=== PATIENT | male | born 1960 | race Caucasian/White ===

== ENCOUNTER → 2017-10-25 13:14 | Outpatient (CLI) | payer BC, SELFPAY ==
--- NOTE | 2017-10-25 13:20 | VDLE_ITS ---
Reason For Study: Edema RIGHT LEFT CFV is compressible, spontaneous, phasic, GSV is normal. competent and demonstrates normal CFV is compressible, spontaneous, phasic, augmentation. competent, and demonstrates normal Lymph node noted Rt Groin. augmentation. Procedure FV is compressible, spontaneous, phasic, Exam performed in department. competent and demonstrates normal A preliminary report was called and/or faxed augmentation. to Dr. Monsalve. POP V is compressible, spontaneous, phasic, competent and demonstrates normal augmentation. T/P Trunk is compressible. PTV is compressible. LT PerV is compressible. Lymph nodes noted in Lt Groin and Pop Fossa. Interpretation Summary Deep veins of the left lower extremity are patent and compressible segmentally. There is no evidence of left lower extremity deep vein thrombosis. Valvular competence appears intact within the proximal deep venous system on the left . The left greater saphenous vein appears patent and compressible segmentally. Prominent lymph nodes are noted in the groins bilaterally and in the left popliteal space. Clinical correlation is advised. Ordering Physician: Angelic Monsalve Referring Physician: Price June Performed By: Rafaela Preston, CIPRIANO, RVT
== END ==
PROVIDERS: Family Provider Family Medicine; PCP Family Medicine; Visit Provider Family Medicine
DX: R60.0 Localized edema (principal)
CPT/HCPCS: 93971

== ENCOUNTER → 2017-10-25 15:52 | Outpatient (CLI) | payer BC, SELFPAY | PROVIDERS: Visit Provider Family Medicine | DX: S91.109A Unspecified open wound of unspecified toe(s) without damage to nail, initial encounter (principal) | CPT/HCPCS: 87070; 87205 ==

== ENCOUNTER 2019-10-30 16:34 | Emergency (ER) | payer OTHER, SELFPAY ==
[2019-10-30 16:36] VITALS: BP 161/83; PULSE 97; RESP 17; TEMP 36.7; O2SAT 91; BMI 40.3
--- NOTE | 2019-10-30 17:25 | MRI_ITS ---
STUDY: MRI THORACIC SPINE WITHOUT CONTRAST REASON FOR EXAM: Male, 59 years old. rt leg weakness, foot drop -- low back pain , rt leg weakness with foot drop, fall 05/2019, increasing pain since with frequent falls TECHNIQUE: Standardized fat and water weighted pulse sequences were obtained in the sagittal and axial planes. COMPARISON: None. FINDINGS: Normal kyphosis of the thoracic spine. There is no substantial scoliosis. There is an acute compression fracture T12 with approximately 50% loss of vertebral body height and retropulsion of the posterior superior endplate narrowing the spinal canal without appreciable cord compression. . Intervertebral disc space heights are well-maintained however there is tiny central disc protrusion at T6-7 mildly narrowing the central canal and a tiny right paracentral disc protrusion at T8-9 also mildly narrowing the spinal canal without cord compression Normal visualized thoracic cord. Normal conus medullaris that terminates at L1 The soft tissue structures are unremarkable. MRI/Spine Thoracic (Routine) IMPRESSION: Acute compression fracture of T12 with retropulsion of bony fragment mildly narrowing the spinal canal without cord compression. Tiny disc protrusions at T6-7 and T8-9 mildly narrowing the spinal canal without cord compression Electronically Signed: Zachary Bynum MD at 19:52 EDT , Service support ,
--- NOTE | 2019-10-30 17:25 | MRI_ITS ---
STUDY: MRI LUMBAR SPINE WITHOUT CONTRAST REASON FOR EXAM: Male, 59 years old. RT leg weakness, foot drop -- low back pain , rt leg weakness with foot drop, fall 05/2019, increasing pain since with frequent falls TECHNIQUE: Standardized fat and water weighted pulse sequences were obtained in the sagittal and axial planes. COMPARISON: None FINDINGS: T12-L1: Acute compression of T12 retropulsion of posterior superior endplate narrowing the spinal canal without compression of the conus.. Normal disc height, hydration and morphology. Normal bilateral facet joints. Normal central canal and bilateral lateral recesses. Normal bilateral intervertebral neural foramina. Normal lumbar lordosis. There is no substantial scoliosis. Normal conus medullaris that terminates at T12-L1 L1-2: Mild endplate spurring.. Normal disc height, desiccation and minimal annular bulge.. Normal bilateral facet joints. Normal central canal and bilateral lateral recesses. Normal bilateral intervertebral neural foramina. L2-3: Schmorl''s node deformity of the superior endplate of L3. Normal disc height, desiccation and small bilateral neural foraminal disc protrusions. Normal bilateral facet joints. Normal central canal and bilateral lateral recesses. Mild bilateral neural foraminal encroachment. L3-4: Normal endplates. Normal disc height, desiccation and small right foraminal disc protrusion.. Mild facet arthropathy. Normal central canal and bilateral lateral recesses. Mild right neuroforaminal encroachment. L4-5: Normal endplates. Normal disc height, desiccation and small left foraminal disc protrusion. Bilateral facet arthropathy.. Normal central canal and bilateral lateral recesses. Mild to moderate left neural foraminal encroachment. L5-S1: Normal endplates. Normal disc height, desiccation and minimal annular bulge.. Mild facet arthropathy.. Normal central canal and bilateral lateral recesses. Mild bilateral neural foraminal encroachment. Normal visualized sacral ala. Normal visualized paraspinous soft tissue structures. MRI/Spine Lumbar (Routine) IMPRESSION: Acute compression fracture of T12 with retropulsed bony fragment mildly narrowing the central canal without cord impingement.. Mild multilevel spinal stenosis secondary to disc disease and bony hypertrophy. Findings as above Electronically Signed: Zachary Bynum MD at 19:58 EDT , Service support ,
--- NOTE | 2019-10-30 17:25 | CT_ITS ---
STUDY: CT BRAIN WITHOUT CONTRAST REASON FOR EXAM: Male, 59 years old. FELL IN NOV./BILAT LEG WEAKNESS/BACK PAIN RADIATION DOSAGE (If Supplied By Facility): CTDIvol = ( 44.99 ) mGy, DLP = ( 880.47 ) mGycm TECHNIQUE: Transaxial CT imaging of the brain was performed without administration of intravenous contrast material. Individualized dose optimization techniques were used for this CT. COMPARISON: No relevant priors. FINDINGS: Normal soft tissue structures. Normal calvarium. Calcification of cavernous carotids. Mild atrophy and periventricular white matter ischemic changes.. Tiny hypoattenuated density in left basal ganglia possibly representing old lacunar infarct or prominent perivascular space. Normal brainstem. Normal cerebellum. There is no intracranial hemorrhage. There are no findings of an acute ischemic infarction. Normal visualized paranasal sinuses. CT/Brain/Head without Contrast IMPRESSION: Mild atrophy and periventricular white matter ischemic change. No evidence for acute intracranial bleed If concern for acute infarct MRI recommended Electronically Signed: Zachary Bynum MD at 20:00 EDT , Service support ,
--- NOTE | 2019-10-30 17:36 | RAD_ITS ---
STUDY: X-RAY CHEST REASON FOR EXAM: Male, 59 years old. WEAKNESS TECHNIQUE: Single AP portable view of the chest. COMPARISON: None. FINDINGS: Very low lung volumes. Possible mild atelectasis in the medial lung bases. Calcified granuloma of the right upper lobe. No gross infiltrates or effusions. There is moderate cardiac enlargement. Normal mediastinum and tay. Normal visualized pulmonary arteries. Normal visualized aortic arch and descending thoracic aorta. Normal visualized thoracic spine. Normal visualized ribs, clavicles, and shoulders. There is no demonstrated abnormality of the visualized soft tissue structures of the upper abdomen. RAD/Chest 1 View (Portable) IMPRESSION: Very low lung volumes. Possible mild atelectasis in the lung bases. Electronically Signed: Maulik Urias MD at 18:15 EDT , Service support ,
[2019-10-30 17:56] LABS: Absolute Lymphocyte Count 0.72 X10^3/uL (0.83-4.51); Absolute Neutrophil Count 5.5 X10^3/uL (2.0-7.7); Basophil# 0.01 X10^3/uL; Basophil% 0.1 % (0-1); Eosinophil# 0.06 X10^3/uL; Eosinophils% 0.9 % (0-5); Hematocrit 45.1 % (40-54); Hemoglobin 14.4 g/dL (13.0-16.5); Lymphocyte # 0.72 X10^3/ul (4.0); Lymphocyte % 10.5 % (19-41); Mean Corp Hgb Conc 31.9 g/dL (32-36); Mean Corpuscular Volume 90.7 fL (80-94); Mean Platelet Vol. 10.5 fl (6.2-12.0); Monocyte# 0.53 X10^3/uL; Monocyte% 7.7 % (0-10); NRBC Flagged by Analyzer 0 % (0-5); Neutrophil # 5.51 X10^3/uL (2.7-7.7); Neutrophil % 80.1 % (47-70); Platelet Count 126 K/mm3 (150-450); RBC Distribution Width CV 14.7 % (11.6-14.6); RBC Distribution Width SD 49.1 fl (35.1-43.9); Red Blood Count 4.97 M/mm3 (4.6-6.2); White Blood Count 6.9 K/mm3 (4.4-11.0)
[2019-10-30] MEDS: morphine 8 MG/ML Syringe 6 MG IV (18:00)
[2019-10-30 18:13] LABS: Anion Gap 6 (5-15); BUN 19 mg/dL (7-18); BUN/Creat Ratio 18.3 RATIO (10-20); Calcium,Total 8.7 mg/dL (8.5-10.1); Chloride 104 mmol/L (98-107); Creatinine, Serum 1.04 mg/dL (0.70-1.30); EST Glomerular Filtration Rate 77 mL/min (>60); Est Glom Filt Rate - Afr Amer 93 mL/min (>60); Glucose 177 mg/dL (74-106); Potassium 4.1 mmol/L (3.5-5.1); Sodium Level 139 mmol/L (136-145)
--- NOTE | 2019-10-30 18:20 | ED.VIS.GEN ---
History of Present Illness Chief Complaint: Fall Informant: Patient Onset: Weeks Context: Gradual Onset Timing: Continuous Narrative: Patient is a 59-year-old male presenting with worsening weakness of his right lower leg and numbness of the right lower extremity. Patient states and May he had a fall at work and landed on his bilateral knees. He has had recurrent effusions of the left knee but bilateral knee pain. He has been following at [facility] for his knees. He had an MRI of his left knee which showed a possible patellar fracture. He now notes that over the past 4 to 3 weeks he can no longer dorsiflex his right foot and he feels like he has a foot drop. He also states his knees been giving out a lot. He was having a lot of pain in his right leg but now he has numbness up to his hip. He states he has numbness in his groin but not his testicle. Over the past week and a half he is had multiple falls where he loses his balance and falls backwards. He is hit his head but is not had any loss of consciousness. The falls of increased his low back pain. Patient states he has had been nauseous and been eating less because of the pain. A week ago he was put on a prednisone taper as well as tramadol. He states that the prednisone did not seem to help him at all and the tramadol just makes him feel really out of it but did not help the pain. Patient has been constipated and does not had a bowel movement in the past 5 days. He denies any associated incontinence or perineal numbness. Patient states he is been using a cane and has been falling with that as well. Past Medical History - Allergies and Home Meds Allergies/Adverse Reactions: Allergies No Known Allergies Allergy (Verified 10/30/19 16:36) Primary Care Physician: Care Physician,No Primary [Primary Care Provider] - Past Medical History: - - Chronic venous insufficiency Surgical History: no surgical history Lives: Spouse/ Significant Other Smoking Status: Never smoker Alcohol: None Drugs: None - Family History Maternal Family History: Reports: - - The patient is estranged from both his mother and father, and does not know their medical histories. Review of Systems General: Denies: Chills, Fever, Sweats Eyes: Denies: Visual changes - bilaterally, Diplopia ENT: Denies: Rhinorrhea, Sore throat Cardiovascular: Denies: Chest pain, Palpitations Respiratory: Denies: Dyspnea, Cough, Dyspnea on exertion Gastrointestinal: Reports: Constipation. Denies: Abdominal pain, Nausea, Vomiting, Diarrhea, Melena, Hematochezia Genitourinary: Denies: Dysuria, Hematuria, Frequency Musculoskeletal: Reports: Back pain, Extremity Pain - Bilateral Skin: Denies: Rash, Wounds Neurological: Reports: Weakness - Right lower extremity, Parasthesia - Right lower extremity. Denies: Headache, Numbness Psych: Denies: Depression, Anxiety Physical Exam Vital Signs/Narrative: Vital Signs Temp Pulse Resp BP Pulse Ox 10/30/19 16:36 98.1 F 97 17 161/83 H 91 Inital Vital Signs reviewed: Yes General: Well nourished, Well developed, Obese, No Acute Distress Head: Normocephalic, Atraumatic Eyes: Perrl, EOMI ENT: Moist mucous membranes, No rhinorrhea Neck: Supple, Nontender Cardiovascular: Regular rate, Regular rhythm, No murmurs Respiratory: No distress, CTA bilaterally, Chest nontender Abdomen: Soft, Nontender, Nondistended, Normal bowel sounds Back: Normal Inspection, Spinal tenderness - Lower lumbar midline, no step-off sign. Bilateral lower lumbar paraspinal tenderness. Negative for: CVA tenderness Extremities: Nontender, No edema Skin: Normal color, No rash, - - Chronic skin changes of the bilateral lower legs consistent with venous insufficiency. 1 cm chronic wound at the pad of the left great toe, Neurological: Alert, Oriented x3, Cranial nerves II-XII grossly intact, Parasthesia - Diffusely of the right lower extremity from the hip down, more pronounced on the lateral aspect, Weakness - Decreased strength with dorsiflexion, increased strength of plantarflexion of the right lower extremity, - - Unable to elicit Babinski reflex bilaterally Psychological: Normal affect, Normal Mood Diagnostic/Tx/Re-eval Clinical Impression(s) from Imaging Studies Brain CT 10/30/19 17:25 IMPRESSION: Mild atrophy and periventricular white matter ischemic change. No evidence for acute intracranial bleed If concern for acute infarct MRI recommended Electronically Signed: Zachary Bynum MD at 20:00 EDT , Service support , Lumbar Spine MRI 10/30/19 17:25 IMPRESSION: Acute compression fracture of T12 with retropulsed bony fragment mildly narrowing the central canal without cord impingement.. Mild multilevel spinal stenosis secondary to disc disease and bony hypertrophy. Findings as above Electronically Signed: Zachary Bynum MD at 19:58 EDT , Service support , Thoracic Spine MRI 10/30/19 17:25 IMPRESSION: Acute compression fracture of T12 with retropulsion of bony fragment mildly narrowing the spinal canal without cord compression. Tiny disc protrusions at T6-7 and T8-9 mildly narrowing the spinal canal without cord compression Electronically Signed: Zachary Bynum MD at 19:52 EDT , Service support , Chest X-Ray 10/30/19 17:36 IMPRESSION: Very low lung volumes. Possible mild atelectasis in the lung bases. Electronically Signed: Maulik Urias MD at 18:15 EDT , Service support , Laboratory Data 10/30/19 10/30/19 17:40 17:40 WBC 6.9 RBC 4.97 Hgb 14.4 Hct 45.1 MCV 90.7 MCH 29.0 MCHC 31.9 L RDW Std Deviation 49.1 H RDW Coeff of Tan 14.7 H Plt Count 126 L MPV 10.5 Immature Gran % (Auto) 0.700 Neut % (Auto) 80.1 H Lymph % (Auto) 10.5 L Gentry % (Auto) 7.7 Eos % (Auto) 0.9 Baso % (Auto) 0.1 Absolute Neuts (auto) 5.5 Absolute Lymphs (auto) 0.72 L Nucleated RBC % 0 Sodium 139 Potassium 4.1 Chloride 104 Carbon Dioxide 29.0 Anion Gap 6 BUN 19 H Creatinine 1.04 Estim Creat Clear Calc 94.00 Est GFR (MDRD) Af Amer 93 Est GFR (MDRD) Non-Af 77 BUN/Creatinine Ratio 18.3 Glucose 177 H Calcium 8.7 - Medical Decision Making Patient is evaluated for worsening weakness and numbness of his right lower extremity. He states for the past 3 to 4 weeks he is not been able to dorsiflex his great toe and seems to have a foot drop. The weakness is been so bad that over the past week and a half he is had multiple falls. Couple days ago he fell directly onto his back and since he is also been having significantly worsening back pain. He has hit his head. He denies any symptoms consistent with cauda equina syndrome. In light of a new neurologic deficit however I did obtain MRI of his thoracic and lumbar spine. Patient is initially given morphine for pain control and then redosed with Dilaudid he is also given Zofran at that time. Metabolic work-up including a CBC and BMP is unremarkable. MRI significant for compression fracture of T12 that is acute as well as retropulsion of the posterior superior endplate narrowing the spinal canal without spinal cord compression. Given his progressive neurologic symptoms and acute findings on MRI I did reach out to neurosurgery c python developer at [facility]. I feel that patient requires emergent neurosurgical evaluation. I did not speak to the neurosurgeon but report was given to the transfer line. Patient will be transferred to the ER to be evaluated by trauma and then likely neurosurgeon. Report is given to the ER physician, Dr. Lopez. ED Disposition - Plan for ED Patient: Disposition: [facility] Diagnosis: T12 compression fracture, Right foot drop, Right leg paresthesias Referrals: Care Physician,No Primary [Primary Care Provider] -
[2019-10-30 20:35] VITALS: BP 153/69; PULSE 97; RESP 18; TEMP 37.2; O2SAT 90
[2019-10-30 20:40] VITALS: O2SAT 93
[2019-10-30] MEDS: HYDROmorphone 1 MG/ML Syringe IV (21:02)
[2019-10-30] MEDS: Ondansetron 4 MG/2 ML Vial IV (21:02)
[2019-10-30 21:43] VITALS: BP 153/69; PULSE 97; RESP 18; TEMP 37.2; O2SAT 93
== END 2019-10-30 21:45 | disposition short-term general hospital (02) ==
PROVIDERS: Emergency Provider Emergency Medicine
DX: M48.54XA Collapsed vertebra, not elsewhere classified, thoracic region, initial encounter for fracture (principal); W19.XXXD Unspecified fall, subsequent encounter; M21.371 Foot drop, right foot; R20.2 Paresthesia of skin; R29.6 Repeated falls; K59.00 Constipation, unspecified; I87.2 Venous insufficiency (chronic) (peripheral); M48.061 Spinal stenosis, lumbar region without neurogenic claudication
CPT/HCPCS: 70450; 71045; 72146; 72148; 80048; 85025; 96374; 96375; 99283; A4216; J2405

== ENCOUNTER 2020-09-20 11:37 | Outpatient (RCR) | payer MEDICAID, SELFPAY ==
[2020-09-20] MEDS: COVID-19 VACC, MRNA(PFIZER)/PF 30 MCG/0.3 ML SYRINGE IM (17:25)
[2020-10-11] MEDS: COVID-19 VACC, MRNA(PFIZER)/PF 30 MCG/0.3 ML SYRINGE IM (17:07)
== END 2020-12-17 23:59 ==
LOC: IMMUN 11:37
PROVIDERS: PCP Family Medicine; Visit Provider Family Medicine
DX: Z23 Encounter for immunization (principal)
CPT/HCPCS: 0001A; 0002A; 91300

== ENCOUNTER 2021-12-22 15:00 | Outpatient (RCR) | payer OTHER, MEDICAID, SELFPAY ==
--- NOTE | 2021-11-17 16:58 | HP.PTEVAL_ITS ---
Patient's Visit Information JEFFREY CONNORS Jr. is a 61 year old M referred to Physical Therapy by Dr. Daryl Luz MD with a diagnosis of Left Knee. Date of Evaluation: 11/17/21 Physical Therapist: Guerita Martinez DPT - Visit Plan Frequency: 3x /Week Duration: 6 Weeks Plan: Aquatic- prehab for left LE (January). Caution: nerve damage to right LE and right shoulder needs a total shoulder - Subjective Fell June 01, 2019 and landed on his left knee and his shoulder. Has not worked since- about 5 months in- he stepped into the garage- and he landed and broke his back. T12 vert was smashed so they blew it up with cement October 2019. Since he broke his back he has had numbness and weakness on the right LE. He can't climb stairs- neurologist says that L5 is . Dr. Luz wants to replace the left knee- wants him to do 6 weeks 3x a week in the pool to strengthen both legs. Plans to have it done in January. He also needs to have a right total shoulder replacement Work: [employer]. He uses the walker when he leaves the house- he uses a cane inside and furniture walks. Has three sets of stairs at home- lives with his who can help if needed. Recliner is the most comfortable position for him. Sleep: disturbed- sleeps in a bed. Worst: 6/10 Agg: everything Eases: Ibuprofen Best: 5/10. Feels like a burning sensation and feels like it get stuck and other times it just hurts. Feels hot to the touch- bone on bone. Has had x-rays and MRI on the knee. Once in while he has mild N/T but that has been since he was 18. He has had venous insufficiency since he was 17- has had ultrasounds and they diagnosed him with defect- lots of veins. - Objective Posture: FH, RS- can correct but does not maintain. Gait: antalgic- decreased stance on the right LE with mild foot drop- FWW. HR/TR: able on left- unable to TR on the right. SLS: weight shift but unable to SLS bilaterally. Sensation: diminished- has had EMG on right- nerve damage. ROM: 0-100 degrees. Stairs: asc/desc non recip with 2 HR. Strength: Left: Hip: 4+/5, Knee: 4+/5, Ankle: 5/5 Right: Hip: 4/5, Knee: 4/5, Ankle: DF: 2+/5, PF: 4/5. Flex: HS: severe, Gastroc: severe - Goals Goal 1:: Patient will be I with HEP and progression Goal Time Frame: 4-6 Weeks Goal 2:: Patient will ambulate >300 feet with a normalized gait pattern Goal Time Frame: 4-6 Weeks Goal 3:: Patient will report 50% improvement Goal Time Frame: 4-6 Weeks Goal 4:: Patient will maintain proper posture t/o tx session to demo increased core s/s Goal Time Frame: 4-6 Weeks - Rehabilitation Potential Physical Therapy Diagnosis: Patient presents with hypomobility- he has decreased LE and core strength/stabilization, flex, proprioception, flex and muscular endurance leading to abnormal gait and increased pain with ADL's. Rehabilitation Potential: Fair - Anticipated Interventions Patient/Client Instruction: Educate patient on: Benefits of Fitness Program Therapeutic Exercise to Include: Strength training, Endurance training, Balance training, Coordination, Agility training, Body mechanics, Postural training, Flexibilty training, Gait and locomotor training, Neuromotor development, In an aquatic setting, Passive ROM, Active ROM, Dynamic Lumbar Stabilization, Scapular Strength/Stabilization For the Purpose of:: To improve muscle performance and motor function Thank you for the opportunity to evaluate your patient. For Medicare and Medicare HMO plans, please review the plan of care and approve it. It will need to be FAXED BACK to us at [phone] for Medicare purposes. For Medicare only, by signing this I certify the plan of care. Please let me know if there are questions or concerns regarding this plan of care. Physician Signature: Date:
--- NOTE | 2022-04-20 13:46 | HP.PT.NRP ---
JEFFREY Rose DORY Craft was seen in my office for initial evaluation on 11/17/21. The following Plan of Care was established for this patient: Initial Frequency: 3x /Week Initial Duration: 6 Weeks Patient/Client Instruction: Educate patient on: Benefits of Fitness Program Therapeutic Exercise to Include: Strength training, Endurance training, Balance training, Coordination, Agility training, Body mechanics, Postural training, Flexibilty training, Gait and locomotor training, Neuromotor development, In an aquatic setting, Passive ROM, Active ROM, Dynamic Lumbar Stabilization, Scapular Strength/Stabilization For the Purpose of:: To improve muscle performance and motor function This patient was last seen in our office . Pertinent comments regarding their Physical therapy will appear below: Patient has not attended PT in over 30 days and is appropriate to d/c and return to MD for further evaluation. At this point I will be discontinuing this patient from physical therapy. I would be happy to see this patient again in the future if found appropriate by the physician. Thank you! KELSEY MiramontesT
== END 2021-12-22 19:00 | disposition home or self-care (01) ==
LOC: PT 15:00
PROVIDERS: PCP Family Medicine; Referring Provider Specialist; Visit Provider Specialist
DX: M17.12 Unilateral primary osteoarthritis, left knee (principal)
CPT/HCPCS: 97113; 97162

== ENCOUNTER → 2022-01-15 | Outpatient (CLI) | payer OTHER, MEDICAID, SELFPAY ==
--- NOTE | 2022-01-15 15:10 | CT_ITS ---
STUDY: CT SCAN LOWER EXTREMITY LEFT REASON FOR EXAM: Male, 61 years old. PREOP. [place] protocol. RADIATION DOSAGE (If Supplied By Facility): CTDIvol = ( 25.46 ) mGy, DLP = ( 3409.58 ) mGycm. Individualized dose optimization techniques were used for this CT.? TECHNIQUE: Multiple axial tomographic images of the left lower extremity were obtained without intravenous contrast administration. Coronal and sagittal reconstruction were obtained as well. COMPARISON: None. FINDINGS: Imaging of the left hip joint was obtained. Mild to moderate degree of joint space narrowing of the hip joint. No bony abnormality is seen. Imaging of the knee joint was obtained. Moderate degree of joint space narrowing of the lateral compartment of knee joint with subchondral geodes in the lateral tibial plateau. Mild degree of the joint space narrowing involving the medial compartment. 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 Imaging of the ankle joint was obtained. There is evidence of a calcaneal plantar spur. Cystic changes are seen in the region of the talus. CT/Extremity Lower without Contra IMPRESSION: Moderate degree of the joint space and alignment of the lateral compartment of the knee joint with subchondral geodes in the lateral posterior tibial plateau. Mild degree of joint space narrowing involving the medial compartment. 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 Electronically Signed: Luis Manuel Nelson MD at 15:32 EDT ,
== END | disposition home or self-care (01) ==
LOC: CT 14:15
PROVIDERS: PCP Family Medicine; Referring Provider Specialist; Visit Provider Specialist
DX: M89.8X6 Other specified disorders of bone, lower leg (principal); M77.32 Calcaneal spur, left foot
CPT/HCPCS: 36415; 71046; 73700; 80048; 82040; 83036; 83735; 85025; 87081; 93005

== ENCOUNTER 2022-01-28 08:20 | Outpatient (RCR) | payer MEDICAID, SELFPAY | END 2022-02-08 23:59 | LOC: DC 08:20 | PROVIDERS: PCP Family Medicine; Referring Provider Family Medicine; Visit Provider Family Medicine | DX: E11.65 Type 2 diabetes mellitus with hyperglycemia (principal) | CPT/HCPCS: G0108 ==

== ENCOUNTER 2022-03-09 14:55 | Outpatient (CLI) | payer MEDICAID, SELFPAY ==
[2022-03-09 18:13] LABS: ALB/GLOB Ratio 0.9 RATIO (0.9-2.4); AST(SGOT) 26 U/L (15-37); Alanine Aminotransfer ALT/SGPT 26 U/L (16-61); Albumin, Serum 3.4 g/dL (3.2-5.0); Alkaline Phosphatase 87 U/L (45-117); Anion Gap 7 (5-15); BUN 21 mg/dL (7-18); BUN/Creat Ratio 18.6 RATIO (10-20); Calcium,Total 9.1 mg/dL (8.5-10.1); Chloride 110 mmol/L (98-107); Creatinine, Serum 1.13 mg/dL (0.70-1.30); EST Glomerular Filtration Rate 70 mL/min (>60); Est Glom Filt Rate - Afr Amer 84 mL/min (>60); Globulin 3.9 g/dL (2.2-4.2); Glucose 130 mg/dL (74-106); Potassium 4.5 mmol/L (3.5-5.1); Protein, Total 7.3 g/dL (6.4-8.2); Sodium Level 143 mmol/L (136-145)
== END 2022-03-09 23:59 | disposition home or self-care (01) ==
LOC: MFPLAB 14:55
PROVIDERS: PCP Family Medicine; Visit Provider Family Medicine
DX: Z01.818 Encounter for other preprocedural examination (principal)
CPT/HCPCS: 36415; 80053

== ENCOUNTER 2022-03-23 15:03 | Outpatient (RCR) | payer MEDICAID, SELFPAY | END 2022-03-23 23:59 | disposition home or self-care (01) | LOC: DC 15:03 | PROVIDERS: PCP Family Medicine; Referring Provider Family Medicine; Visit Provider Family Medicine | DX: E11.65 Type 2 diabetes mellitus with hyperglycemia (principal) | CPT/HCPCS: 97802 ==

== ENCOUNTER → 2022-04-21 | Outpatient (CLI) | payer MEDICAID, SELFPAY ==
[2022-04-21 18:28] LABS: Hemoglobin A1c 6.9 % (3.8-5.6)
[2022-04-21 18:29] LABS: AST(SGOT) 21 U/L (15-37); Alanine Aminotransfer ALT/SGPT 28 U/L (16-61); Albumin, Serum 3.4 g/dL (3.2-5.0); Alkaline Phosphatase 83 U/L (45-117); Bilirubin, Direct 0.22 mg/dL (0.00-0.30); Cholesterol 161 mg/dL (200); Globulin 3.9 g/dL (2.2-4.2); High Density Lipoprotein 41 mg/dL; Protein, Total 7.3 g/dL (6.4-8.2); Triglycerides 83 mg/dL; Very Low Density Lipoprotein 17 mg/dL (5-40)
== END | disposition home or self-care (01) ==
LOC: MFPLAB 15:48
PROVIDERS: PCP Family Medicine; Referring Provider Family Medicine; Visit Provider Family Medicine
DX: E11.65 Type 2 diabetes mellitus with hyperglycemia (principal); R35.1 Nocturia
CPT/HCPCS: 84153; 36415; 80061; 80076; 83036; G0103

== ENCOUNTER → 2022-08-21 | Outpatient (CLI) | payer OTHER, SELFPAY ==
--- NOTE | 2022-08-21 14:36 | CT_ITS ---
STUDY: CT SCAN LOWER EXTREMITY LEFT REASON FOR EXAM: Male, 61 years old. PRE OP [facility] RADIATION DOSAGE (If Supplied By Facility): CTDIvol = ( 27.00 ) mGy, DLP = ( 1093.16 ) mGycm. Individualized dose optimization techniques were used for this CT.? TECHNIQUE: Multiple axial tomographic images of the lower extremity were obtained without intravenous contrast administration. Coronal and sagittal reconstruction was obtained as well. COMPARISON: None. FINDINGS: Imaging of the hip joint was obtained. There is a mild degree of joint space narrowing. No other abnormality is seen. Imaging of the knee joint was obtained. There is a marked degree of joint space narrowing and subchondral cysts involving the lateral knee joint. There is evidence of degenerative spur formation of the lateral femoral condyle. Moderate degree of joint space and of the patellofemoral joint with with irregular articular surface. Imaging of the ankle joint was obtained. Mild degree of degenerative changes of the tibiotalar joint. CT/Extremity Lower without Contra IMPRESSION: Marked degree of degenerative changes of the lateral compartment of knee joint as well as moderate degree of degenerative changes of the patellofemoral joint. Electronically Signed: Luis Manuel Nelson MD at 15:38 EST ,
== END | disposition home or self-care (01) ==
LOC: CT 14:31
PROVIDERS: PCP Family Medicine; Visit Provider Specialist
DX: M89.8X6 Other specified disorders of bone, lower leg (principal)
CPT/HCPCS: 73700

== ENCOUNTER → 2022-09-01 | Outpatient (CLI) | payer MEDICAID, SELFPAY ==
--- NOTE | 2022-08-25 14:08 | PCM.HP.BLA ---
History and Physical History and Physical? Patient Name: Khoa Turner : 1960 From:? LIBORIO LINDER PA-C? DATE OF SURGERY:? 09/09/2022 SCHEDULED PROCEDURE:? ?Left total knee arthroplasty HISTORY OF PRESENT ILLNESS: Preoperative history and physical exam was performed on August 24, 2022.? This is a 61-year-old male who is had ongoing pain for the past 2-3 years.? He was initially scheduled to undergo surgery in January 2022 but that had to be canceled due to elevated A1c at 7.7.? Since then patient has met with her primary care physician in which the A1c improved to 6.9.? However he continues to complain of significant left knee pain.? He did have an injury at work when he fell directly on the knee.? His pain is associated with going up and down stairs, walking, and standing.? He is using a walker for ambulatory assistance.? His pain as being constant.? He has difficulty getting in and out of cars or up from a seated position.? Pain is located over the medial and lateral knee.? Pain does awaken him at nighttime.? He has difficulty with activities of daily living including showering, getting dressed, housework, shopping and leisure activities.? He has tried oral medications including ibuprofen with minimal relief.? He has had previous falls due to the knee pain.? He feels unsafe doing all activities.? He has had previous corticosteroid injection and physical therapy without relief in symptoms.? Patient does report previous problems with anesthesia after cataract surgery.? He also has previous low back problems which did affect his right lower leg over 2 years ago.? He is seen by neurology.? He has foot drop on the right.? He has atrophy on the right.? Patient has medical history pertinent for a 2 diabetes mellitus.? We are obtaining surgical clearance from the primary care physician Dr. Gilmore.? He denies previous DVT or pulmonary embolism. Due to the patient's chronic neurologic deficit on the right lower extremity patient will likely need inpatient care after surgical intervention.? He had a RAPT score of 5.? Patient's is unable to provide adequate care at home due to her own medical problems. REVIEW OF SYSTEMS: Review Of Systems: Constitutional: Denies change in appetite, fever and weight change. Cardiovasular: Denies chest pain, heart murmur and irregular heartbeat. Respiratory: Denies cough, pneumonia, shortness of breath, tuberculosis and wheezing. Gastrointestinal: Denies constipation, diarrhea, heartburn, nausea, rectal itching, bloody stools and vomiting. Genitourinary: Denies incontinence. Musculoskeletal: Reports ambulatory dysfunction, trouble walking and weakness, but denies leg swelling and pain. Skin: Denies Raynaud's, history of shingles and tattoo. Neurological: Reports ambulatory dysfunction and numbness/tingling but denies dizziness and tremor. Psychiatric: Denies anxiety, insomnia and stress. Hematologic/Lymphatic: Denies anemia, bleeding/bruising tendency and past transfusion. Reviewed, no changes. PAST MEDICAL HISTORY: Advance Care Plan: No Advance Directives Effective Date: 10/27/2021 Past Medical History: Medical Problems: Diabetes, Enlarged Prostate Accidents: Fracture - T-12 COMP FRACTURE - [facility] [place] 10/30/19 Other - SHOULDER & KNEE 05/30 Surgical Hx: Detached Retina - 2021 [facility] / EYE Cataracts - (2021) LT EYE Laser Surgery - (08/2022) TO REMOVE SCAR TISSUE / LEFT EYE? Anesthesia Complications: None Assistive Devices: Cane, Walker Reviewed and updated. SOCIAL HISTORY: Social History: Marital: .Occupation: [employer] .Work Status: Injured - OFF WORK SINCE 10-28.Hand Dominance: Right-handed. Personal Habits:? Cigarette Use: Never Smoked Cigarettes.Smokeless Tobacco: Never Used Smokeless Tobacco.E-Cigarette Use: Never used.Alcohol: Denies use.Drug Use: Denies Use.Enjoy Exercising: Exercises 1-3 x/month. Reviewed, no changes. VITALS: Ht: 77 Wt: 340lb Wt k.224 BMI: 40.3 BP: 138/82 Pulse: 96 Resp: 20 T: 98.0 T: 36.7C Pain Level: 7 O2SatR: 98 ALLERGIES: No Known Drug Allergy? MEDICATIONS: Ibuprofen 200 200 mg take 1-2 tablet's every four(4) to six(6) hours as needed for pain., Metformin HCL 500 mg 1 by mouth every day, Tamsulosin HCL 0.4 mg 1 po daily PRE-OP EXAM:? General appearance:NORMAL? ? ? Other: Eyes: Conjunctivae and lids: NORMAL? Pupils: ERR Ears, Nose, Mouth, and Throat: NORMAL? Other: Inspection of lips, teeth and gums: NORMAL? ?Other: Neck: Examination of neck: no masses noted. Respiratory: Assessment of respiratory effort: NORMAL? ?Other: ?Auscultation of lungs: clear to auscultation no wheezes, rhonchi or rales. Cardiovascular:? Auscultation of heart: regular rate and rhythm, no murmurs, gallops or rubs. PHYSICAL EXAMINATION: Patient does walk with an antalgic gait.? Currently uses a walker for assistance.? He has had previous falls.? His left knee has valgus alignment.? There is tenderness to palpation over the medial and lateral joint line.? He has a 10 fixed valgus alignment.? Range of motion: 0 extension to 100 flexion.? Firm endpoint with anterior/posterior drawer exam. IMAGING STUDIES: Previous x-rays of the left knee reveal valgus alignment with lateral joint space narrowing, subchondral sclerosis, osteophyte formation consistent with severe stage IV osteoarthritis with lateral compartment bony erosions. IMPRESSION: 1.? Severe left knee osteoarthritis with valgus alignment 2.? Enlarged prostate 3.? Type 2 diabetes mellitus 4.? Morbid obesity: 40.3 PLAN: Dr. Daryl Luz did discuss and review with the patient all treatment options including surgical versus nonsurgical options.? Patient does wish to proceed with the above-stated procedure.? Potential risks, benefits, and complications of the procedure were discussed in detail including but not limited to , infection, nerve and blood vessel damage, persistent pain, numbness, tingling, paresthesias, blood clot, pulmonary embolism, and requirement for possible further surgery.? The patient expressed full understanding and has no further questions for the doctor.? Patient does agree to proceed with the above-stated procedure and has signed the surgery consent form. This dictation was created using voice recognition software. Phonetic and/or grammatical errors may exist. ___? I have re-examined the patient.? There are no clinical changes since date of exam. ___? See progress notes for changes. ___? Dictated on admission Date: ? ? ?Time: Signature:
[2022-09-01 14:24] LABS: Absolute Neutrophil Count 2.1 X10^3/uL (2.0-7.7); Basophil# 0.02 X10^3/uL; Basophil% 0.6 % (0-1); Eosinophil# 0.26 X10^3/uL; Eosinophils% 7.2 % (0-5); Hematocrit 28.1 % (40-54); Hemoglobin 8.2 g/dL (13.0-16.5); Mean Corp Hgb Conc 29.2 g/dL (32-36); Mean Corpuscular Hgb 26.6 pg (27.0-32.0); Mean Corpuscular Volume 91.2 fL (80-94); Mean Platelet Vol. 10.8 fl (6.2-12.0); Monocyte# 0.31 X10^3/uL; Monocyte% 8.6 % (0-10); NRBC Flagged by Analyzer 0 % (0-5); Neutrophil # 2.08 X10^3/uL (2.7-7.7); Neutrophil % 57.8 % (47-70); Platelet Count 112 K/mm3 (150-450); RBC Distribution Width CV 15.8 % (11.6-14.6); RBC Distribution Width SD 52.8 fl (35.1-43.9); Red Blood Count 3.08 M/mm3 (4.6-6.2); White Blood Count 3.6 K/mm3 (4.4-11.0)
[2022-09-01 14:59] LABS: Hemoglobin A1c 6.7 % (3.8-5.6)
[2022-09-01 15:20] LABS: Albumin, Serum 3.3 g/dL (3.2-5.0); Anion Gap 5 (5-15); BUN 22 mg/dL (7-18); BUN/Creat Ratio 20.2 RATIO (10-20); Calcium,Total 8.9 mg/dL (8.5-10.1); Chloride 114 mmol/L (98-107); Creatinine, Serum 1.09 mg/dL (0.70-1.30); EST Glomerular Filtration Rate 72 mL/min (>60); Est Glom Filt Rate - Afr Amer 88 mL/min (>60); Glucose 124 mg/dL (74-106); Potassium 4.5 mmol/L (3.5-5.1); Sodium Level 145 mmol/L (136-145)
[2022-09-01 15:30] LABS: Magnesium 2.1 mg/dL (1.6-2.6)
== END | disposition home or self-care (01) ==
LOC: PAT 09-28 16:21
PROVIDERS: Anesthesiology; PCP Family Medicine; Visit Provider Specialist
DX: Z01.818 Encounter for other preprocedural examination (principal)
CPT/HCPCS: 36415; 80048; 82040; 83036; 83735; 85025; 87081

== ENCOUNTER → 2022-09-08 | Outpatient (CLI) | payer MEDICAID, SELFPAY ==
[2022-09-08 17:49] LABS: Absolute Lymphocyte Count 0.69 X10^3/uL (0.83-4.51); Absolute Neutrophil Count 2.4 X10^3/uL (2.0-7.7); Basophil# 0.02 X10^3/uL; Basophil% 0.6 % (0-1); Eosinophil# 0.21 X10^3/uL; Eosinophils% 5.8 % (0-5); Hematocrit 28.3 % (40-54); Hemoglobin 8.2 g/dL (13.0-16.5); Immature Platelet Fraction 3.5 % (1.0-7.9); Lymphocyte # 0.69 X10^3/ul (0.83-4.51); Lymphocyte % 19.1 % (19-41); Mean Corpuscular Hgb 26.5 pg (27.0-32.0); Mean Corpuscular Volume 91.3 fL (80-94); Mean Platelet Vol. 10.2 fl (6.2-12.0); Monocyte# 0.27 X10^3/uL; Monocyte% 7.5 % (0-10); NRBC Flagged by Analyzer 0 % (0-5); Neutrophil # 2.42 X10^3/uL (2.7-7.7); Platelet Count 105 K/mm3 (150-450); RBC Distribution Width CV 16.2 % (11.6-14.6); RBC Distribution Width SD 54.1 fl (35.1-43.9); RET-HE 26.4 pg (30-35); White Blood Count 3.6 K/mm3 (4.4-11.0)
[2022-09-08 18:34] LABS: Ferritin 6 ng/mL (26-388); Iron 25 ug/dL (65-175); Iron Binding Capacity,Total 424 ug/dL (250-450); PERCENT IRON SATURATION 5.9 % (15.0-55.0)
[2022-09-08 18:50] LABS: Vitamin B12 207 pg/mL (211-911)
== END | disposition home or self-care (01) ==
LOC: MFPLAB 14:01
PROVIDERS: PCP Family Medicine; Referring Provider Family Medicine; Visit Provider Family Medicine
DX: D64.9 Anemia, unspecified (principal)
CPT/HCPCS: 36415; 82607; 82728; 82746; 83540; 83550; 85025; 85045

== ENCOUNTER → 2022-09-11 | Outpatient (CLI) | payer MEDICAID, SELFPAY ==
[2022-09-11 18:13] LABS: CRP < 2.90 mg/L (0.0-3.0)
[2022-09-15 17:07] LABS: Endomysial Antibody IgA Negative (Negative); Immunoglobulin A 259 mg/dL (61-437)
[2022-09-15 20:30] LABS: Anti-Parietal Cell AB, QN 107.3 Units (0.0-20.0); Intrinsic Factor Ab 1.1 AU/mL (0.0-1.1); t-Transglutaminase IgA <2 U/mL (0-3)
== END | disposition home or self-care (01) ==
LOC: MTLAB 15:22
PROVIDERS: PCP Family Medicine; Referring Provider Internal Medicine Gastroenterology; Visit Provider Internal Medicine Gastroenterology
DX: E53.8 Deficiency of other specified B group vitamins (principal); D50.9 Iron deficiency anemia, unspecified
CPT/HCPCS: 36415; 82784; 83516; 86140; 86255; 86340

== ENCOUNTER 2022-10-19 14:56 | Outpatient (CLI) | payer MEDICAID, SELFPAY ==
[2022-10-19 15:37] LABS: Absolute Lymphocyte Count 0.85 X10^3/uL (0.83-4.51); Absolute Neutrophil Count 2.4 X10^3/uL (2.0-7.7); Basophil# 0.03 X10^3/uL; Basophil% 0.8 % (0-1); Eosinophil# 0.16 X10^3/uL; Eosinophils% 4.2 % (0-5); Hematocrit 35.4 % (40-54); Hemoglobin 10.2 g/dL (13.0-16.5); Lymphocyte # 0.85 X10^3/ul (0.83-4.51); Lymphocyte % 22.3 % (19-41); Mean Corp Hgb Conc 28.8 g/dL (32-36); Mean Corpuscular Hgb 27.7 pg (27.0-32.0); Mean Corpuscular Volume 96.2 fL (80-94); Mean Platelet Vol. 11.1 fl (6.2-12.0); Monocyte# 0.34 X10^3/uL; Monocyte% 8.9 % (0-10); NRBC Flagged by Analyzer 0 % (0-5); Neutrophil # 2.41 X10^3/uL (2.7-7.7); Neutrophil % 63.3 % (47-70); POSITIVE MORPHOLOGY YES; Platelet Count 107 K/mm3 (150-450); RBC Distribution Width CV 21.4 % (11.6-14.6); RBC Distribution Width SD 75.2 fl (35.1-43.9); Red Blood Count 3.68 M/mm3 (4.6-6.2); White Blood Count 3.8 K/mm3 (4.4-11.0)
[2022-10-19 15:43] LABS: Differential Indicated SCAN CRITERIA MET
[2022-10-19 16:03] LABS: Anisocytosis 2+; Differential Comment SCANNED; Macrocytosis 1+; Microcytosis 1+
[2022-10-19 16:25] LABS: BUN 22 mg/dL (7-18); Creatinine, Serum 0.98 mg/dL (0.70-1.30); Glucose 179 mg/dL (74-106)
[2022-10-19 16:26] LABS: Albumin, Serum 3.3 g/dL (3.2-5.0); Anion Gap 1 (5-15); BUN/Creat Ratio 22.4 RATIO (10-20); Calcium,Total 8.8 mg/dL (8.5-10.1); Chloride 113 mmol/L (98-107); EST Glomerular Filtration Rate 82 mL/min (>60); Est Glom Filt Rate - Afr Amer 99 mL/min (>60); Potassium 4.3 mmol/L (3.5-5.1); Sodium Level 141 mmol/L (136-145)
== END 2022-10-19 23:59 | disposition home or self-care (01) ==
LOC: LAB 14:56
PROVIDERS: PCP Family Medicine; Visit Provider Specialist
DX: Z01.812 Encounter for preprocedural laboratory examination (principal)
CPT/HCPCS: 36415; 80048; 82040; 85025

== ENCOUNTER → 2022-11-30 | Outpatient (CLI) | payer MEDICAID, SELFPAY ==
[2022-11-30 11:46] LABS: Absolute Lymphocyte Count 0.96 X10^3/uL (0.83-4.51); Basophil# 0.03 X10^3/uL; Basophil% 0.6 % (0-1); Eosinophil# 0.18 X10^3/uL; Eosinophils% 3.8 % (0-5); Hematocrit 38.6 % (40-54); Hemoglobin 12.1 g/dL (13.0-16.5); Lymphocyte # 0.96 X10^3/ul (0.83-4.51); Lymphocyte % 20.5 % (19-41); Mean Corp Hgb Conc 31.3 g/dL (32-36); Mean Corpuscular Hgb 30.9 pg (27.0-32.0); Mean Corpuscular Volume 98.7 fL (80-94); Mean Platelet Vol. 10.3 fl (6.2-12.0); Monocyte# 0.47 X10^3/uL; NRBC Flagged by Analyzer 0 % (0-5); Neutrophil # 2.95 X10^3/uL (2.7-7.7); Neutrophil % 63.2 % (47-70); POSITIVE MORPHOLOGY YES; Platelet Count 115 K/mm3 (150-450); RBC Distribution Width CV 18.1 % (11.6-14.6); RBC Distribution Width SD 65.3 fl (35.1-43.9); Red Blood Count 3.91 M/mm3 (4.6-6.2); White Blood Count 4.7 K/mm3 (4.4-11.0)
[2022-11-30 11:47] LABS: Differential Indicated SCAN CRITERIA MET
[2022-11-30 12:12] LABS: Albumin, Serum 3.1 g/dL (3.2-5.0); Anion Gap 7 (5-15); BUN 21 mg/dL (7-18); BUN/Creat Ratio 18.8 RATIO (10-20); Calcium,Total 8.9 mg/dL (8.5-10.1); Chloride 109 mmol/L (98-107); Creatinine, Serum 1.12 mg/dL (0.70-1.30); EST Glomerular Filtration Rate 70 mL/min (>60); Est Glom Filt Rate - Afr Amer 85 mL/min (>60); Glucose 123 mg/dL (74-106); Potassium 4.5 mmol/L (3.5-5.1); Sodium Level 143 mmol/L (136-145)
[2022-11-30 12:20] LABS: Anisocytosis 2+; Platelet Estimate SLT DEC (ADEQ)
== END | disposition home or self-care (01) ==
PROVIDERS: PCP Family Medicine; Referring Provider Specialist; Visit Provider Specialist
DX: Z01.812 Encounter for preprocedural laboratory examination (principal)
CPT/HCPCS: 36415; 80048; 82040; 85025

== ENCOUNTER 2023-01-04 09:29 | Outpatient (RCR) | payer MEDICAID, SELFPAY | END 2023-01-08 23:59 | LOC: NS 09:29 | PROVIDERS: PCP Family Medicine; Referring Provider Family Medicine; Visit Provider Family Medicine | DX: Z71.3 Dietary counseling and surveillance (principal); E88.09 Other disorders of plasma-protein metabolism, not elsewhere classified; E11.65 Type 2 diabetes mellitus with hyperglycemia | CPT/HCPCS: 97803 ==

== ENCOUNTER → 2023-02-03 | Outpatient (CLI) | payer OTHER, MEDICAID, SELFPAY ==
[2023-02-03 16:35] LABS: Absolute Lymphocyte Count 0.97 X10^3/uL (0.83-4.51); Absolute Neutrophil Count 2.8 X10^3/uL (2.0-7.7); Basophil# 0.02 X10^3/uL; Basophil% 0.5 % (0-1); Eosinophil# 0.12 X10^3/uL; Eosinophils% 2.8 % (0-5); Hematocrit 40.4 % (40-54); Hemoglobin 12.9 g/dL (13.0-16.5); Lymphocyte # 0.97 X10^3/ul (0.83-4.51); Lymphocyte % 22.6 % (19-41); Mean Corp Hgb Conc 31.9 g/dL (32-36); Mean Corpuscular Hgb 32.6 pg (27.0-32.0); Monocyte# 0.38 X10^3/uL; Monocyte% 8.8 % (0-10); NRBC Flagged by Analyzer 0 % (0-5); Neutrophil % 65.1 % (47-70); Platelet Count 110 K/mm3 (150-450); RBC Distribution Width CV 14.1 % (11.6-14.6); RBC Distribution Width SD 52.7 fl (35.1-43.9); Red Blood Count 3.96 M/mm3 (4.6-6.2); White Blood Count 4.3 K/mm3 (4.4-11.0)
[2023-02-03 17:06] LABS: Albumin, Serum 3.3 g/dL (3.2-5.0); Anion Gap 3 (5-15); BUN 20 mg/dL (7-18); BUN/Creat Ratio 18.5 RATIO (10-20); Calcium,Total 9.1 mg/dL (8.5-10.1); Chloride 108 mmol/L (98-107); Creatinine, Serum 1.08 mg/dL (0.70-1.30); EST Glomerular Filtration Rate 73 mL/min (>60); Est Glom Filt Rate - Afr Amer 88 mL/min (>60); Glucose 112 mg/dL (74-106); Potassium 4.4 mmol/L (3.5-5.1); Sodium Level 140 mmol/L (136-145)
== END | disposition home or self-care (01) ==
LOC: LAB 16:21
PROVIDERS: PCP Family Medicine; Referring Provider Specialist; Visit Provider Specialist
DX: M17.12 Unilateral primary osteoarthritis, left knee (principal)
CPT/HCPCS: 36415; 80048; 82040; 85025

== ENCOUNTER 2023-02-09 09:19 | Outpatient (RCR) | payer MEDICAID, SELFPAY | END 2023-03-11 23:59 | LOC: NS 09:19 | PROVIDERS: PCP Family Medicine; Referring Provider Family Medicine; Visit Provider Family Medicine | DX: Z71.3 Dietary counseling and surveillance (principal); E88.09 Other disorders of plasma-protein metabolism, not elsewhere classified; E11.65 Type 2 diabetes mellitus with hyperglycemia | CPT/HCPCS: 97803 ==

== ENCOUNTER → 2023-06-17 | Outpatient (CLI) | payer OTHER, MEDICAID, SELFPAY ==
[2023-06-17 10:13] LABS: Absolute Lymphocyte Count 0.73 X10^3/uL (0.83-4.51); Absolute Neutrophil Count 2.9 X10^3/uL (2.0-7.7); Basophil# 0.02 X10^3/uL; Basophil% 0.5 % (0-1); Eosinophils% 4.7 % (0-5); Hematocrit 38.4 % (40-54); Hemoglobin 12.1 g/dL (13.0-16.5); Lymphocyte # 0.73 X10^3/ul (0.83-4.51); Lymphocyte % 17.3 % (19-41); Mean Corp Hgb Conc 31.5 g/dL (32-36); Mean Corpuscular Hgb 32.4 pg (27.0-32.0); Mean Corpuscular Volume 102.9 fL (80-94); Mean Platelet Vol. 10.3 fl (6.2-12.0); Monocyte% 9.5 % (0-10); NRBC Flagged by Analyzer 0 % (0-5); Neutrophil # 2.85 X10^3/uL (2.7-7.7); Neutrophil % 67.5 % (47-70); Platelet Count 108 K/mm3 (150-450); RBC Distribution Width CV 13.4 % (11.6-14.6); RBC Distribution Width SD 51.2 fl (35.1-43.9); Red Blood Count 3.73 M/mm3 (4.6-6.2); White Blood Count 4.2 K/mm3 (4.4-11.0)
[2023-06-17 10:42] LABS: Albumin, Serum 3.1 g/dL (3.2-5.0); Anion Gap 1 (5-15); BUN 18 mg/dL (7-18); Calcium,Total 8.8 mg/dL (8.5-10.1); Chloride 112 mmol/L (98-107); Creatinine, Serum 0.95 mg/dL (0.70-1.30); EST Glomerular Filtration Rate 85 mL/min (>60); Est Glom Filt Rate - Afr Amer 103 mL/min (>60); Glucose 147 mg/dL (74-106); Potassium 4.5 mmol/L (3.5-5.1); Sodium Level 143 mmol/L (136-145)
[2023-06-17 11:34] LABS: Hemoglobin A1c 6.7 % (3.8-5.6)
== END | disposition home or self-care (01) ==
LOC: PAT 07-23 14:41
PROVIDERS: PCP Family Medicine; Visit Provider Specialist
DX: Z01.818 Encounter for other preprocedural examination (principal); Z01.810 Encounter for preprocedural cardiovascular examination
CPT/HCPCS: 36415; 80048; 82040; 83036; 83735; 85025; 87081; 93005

== ENCOUNTER → 2023-06-21 | Outpatient (CLI) | payer OTHER, SELFPAY ==
--- NOTE | 2023-06-21 12:50 | CT_ITS ---
PROCEDURE: CT LEFT KNEE WITHOUT CONTRAST REASON FOR EXAM: Male, 62 years old. Preoperative planning for the [employer] Robotic knee surgery. Knee pain. TECHNIQUE: Transaxial CT of the hip, knee and ankle were obtained. Coronal and sagittal reconstruction images of the knee were provided. Individualized dose optimization techniques were used for this CT. COMPARISON: None. FINDINGS: Standard protocol for the preoperative planning for the [employer] robotic knee surgery was performed. Mild arthrosis of the hip, moderate tricompartmental arthrosis of the knee and mild arthrosis of the tibiotalar and subtalar joints with calcaneal spurs. Calcaneonavicular coalition.. CT/Extremity Lower without Contra IMPRESSION: Preoperative [employer] Rob[employer] knee surgical CT evaluation with findings as described above. Electronically Signed: Butch Noland MD at 15:02 EST ,
== END | disposition home or self-care (01) ==
LOC: CT 12:49
PROVIDERS: PCP Family Medicine; Referring Provider Specialist; Visit Provider Specialist
DX: M89.8X6 Other specified disorders of bone, lower leg (principal)
CPT/HCPCS: 73700

== ENCOUNTER → 2023-08-14 | Outpatient (CLI) | payer OTHER, SELFPAY ==
--- OUTSIDE RECORDS SUMMARY | 2023-08-14 09:47 | XMS RPT_ITS | CCD ---
Author Name Unknown Address [address] [place] [address] Organization [facility] Care Team Providers Care Ammonium Nitrate Crystallizer Name Role Phone No, Physician Primary Care Provider UnavailLINDA Henry Attending Unavailable LINDA ALBERTS Referring Unavailable NO, PHYSICIAN Primary Care Unavailable Black, Helga Unavailable Unavailable None, No PCP Unavailable Unavailable Linda Alebrts L Unavailable Unavailable Michelet Avendaño Unavailable Unavailable NO, PHYSICIAN Primary Care Unavailable DIO GALDAMEZ Attending Unavailable NO, PHYSICIAN Primary Care Unavailable HARDY CLARK Attending Unavailable NO, PHYSICIAN Primary Care Unavailable SYSTEM, PROVIDER NOT IN Attending Unavaila ble NO, PHYSICIAN Primary Care Unavailable HARDY CLARK Attending Unavailable NO, PHYSICIAN Primary Care Unavailable HARDY CLARK Admitting Unavailable HARDY CLARK Referring Unavailable NO, PHYSICIAN Primary Care Unavailable LINDA ALBERTS Admitting Unavailable LINDA ALBERTS Referring Unavailable HARDY CLARK Attending Unavailable No, Physician Primary Care Provider UnavailCade Barrera DO Unavailable Unavailable None, No PCP Unavailable Unavailable Linda Alberts Unavailable Unavailable Michelet Avendaño Unavailable Unavailable Cade Valle Unavailable Unavailable Dew SENIOR HOUSEKEEPER, Emeterio Unavailable Unavailable Kavitha SENIOR HOUSEKEEPERMichelet Unavailable Unavailable Luecht PT, Christopher Unavailable Unavailable None, No PCP Unavailable Unavailable Unavailable Unavailable Unavailable Primary Care Provider UnavailAngelic Muller Primary Care Provider Angelic Monsalve Primary Care Provider [phone] DELTA GROVES Attending Unavailable ANGELIC MONSALVE Primary Care Unavailable BRADLY SANDERS Attending Unavailable BRADLY SANDERS Admitting Unavailable JOLLIFF, ANGELIC VINCENT Primary Care Unavailable Jolliff, Angelic Vincent Primary Care Provider Jolliff, Angelic Vincent Primary Care Provider Jolliff, Angelic Vincent Primary Care Provider Jolliff, Angelic Vincent Primary Care Provider GRICEL SOMMER, DR BETHEA Primary Care Physician MARLON SOMMER, DR GRIMM Attending Unavailabl e GRICEL SOMMER, DR BETHEA Primary Care Unavailable RZEPKA, MERI Attending Unavailable JOLLIFF, ANGELIC VINCENT Primary Care Unavailable RZEPKA, MERI Attending Unavailable JOLLIFF, ANGELIC VINCENT Primary Care Unavailable YUAN, WILMER Attending Unavailable JOLLIFF, ANGELIC VINCENT Primary Care Unavailable YUAN, WILMER Referring Unavailable SANDRA SAUNDERS Attending Unavailable JOLLIFF, ANGELIC VINCENT Primary Care Unavailable YUAN, WILMER Attending Unavailable YUAN, WILMER Referring Unavailable JOLLIFF, ANGELIC VINCENT Primary Care Unavailable YUAN, WILMER Attending Unavailable YUAN, WILMER Referring Unavailable JOLLIFF, ANGELIC VINCENT Primary Care Unavailable JOLLIFF, ANGELIC VINCENT Primary Care Unavailable YUAN, WILMER Attending Unavailable YUAN, WILMER Referring Unavailable JOLLIFF, ANGELIC VINCENT Primary Care Unavailable BRADLY SANDERS Attending Unavailable JOLLIFF, ANGELIC VINCENT Primary Care Unavailable YUAN, WILMER Referring Unavailable BRADLY SANDERS Attending Unavailable JOLLIFF, ANGELIC VINCENT Primary Care Unavailable YUAN, WILMER Attending Unavailable JOLLIFF, ANGELIC VINCENT Primary Care Unavailable Allergies Allergy Classification Reported Allergen(s) Allergy Type Date of Onset Reaction(s) Facility Latex (20 sources) natural latex rubber Substance Allergy [facility] Work Phone: (12 sources) natural latex rubber; Translations: [LATEX] Allergy to substance (finding) 9 [facility] Other [place] [facility] (20 sources) Latex Propensity to adverse reactions 9 [facility] (18 sources) gabapentin; Translations: [GABAPENTIN] Drug Allergy 2 Mental Status Change [facility] Medications Current Medications Medication Drug Class(es) Dates Sig (Normalized) Sig (Original) benoxinate hydrochloride 4 mg/ml / fluorescein sodium 2.5 mg/ml ophthalmic solution (7 sources) Diagnostic Dye Start: 12-24-2022 End: 12-25-2022 fluorescein-benoxi adela 0.25-0.4 % 1 Drop (FLURESS) Completed/Discontinued Medications Medication Drug Class(es) Dates Sig (Normalized) Sig (Original) amoxicillin 875 mg / clavulanate 125 mg oral tablet (1 source) Penicillin-class Antibacterial Start: 06-16-2019 Amoxicillin-Pot Clavulanate 875-125 MG Oral Tablet Quantity: 20 Refills: 0 Start : 16-Jun-2019 Active aspirin 81 mg chewable tablet (17 sources) Platelet Aggregation Inhibitor, Nonsteroidal Anti-inflammatory Drug Start: 11-07-2019 take 1 tablet by mouth once daily aspirin 81 mg chewable tablet Take 1 tablet by mouth once daily. 30 tablet 0 11/07/2019 Active Problems Active Problems Problem Classification Problem Date Documented Date Episodic/Chronic Allergic reactions (1 source) Nummular eczema; Translations: [Nummular dermatitis] 06-24-2023 Episodic Cataract (16 sources) Bilateral senile combined form cataracts of eyes; Translations: [Combined forms of age-related cataract, bilateral] Onset: 03-24-2022 Chronic Complications of surgical procedures or medical care (2 sources) Chorioretinal scars following retinal detachment surgery; Translations: [Chorioretinal scars after surgery for detachment, left eye] Episodic Diabetes mellitus with complications (1 source) Type 2 diabetes mellitus with moderate nonproliferative diabetic retinopathy without macular edema, bilateral; Translations: [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 edema, without long-term current use of insulin (HCC)] Onset: 11-07-2019 Chronic Diabetes mellitus without complication (20 sources) Type 2 diabetes mellitus; Translations: [Type 2 diabetes mellitus without complications] Onset: 10-31-2019 11-07-2019 Chronic Essential hypertension (20 sources) Essential hypertension; Translations: [Essential (primary) hypertension] Onset: 11-01-2019 11-07-2019 Chronic Inflammation; infection of eye (except that caused by tuberculosis or sexually transmitteddisease) (2 sources) Iritis; Translations: [Recurrent acute iridocyclitis, left eye] Episodic Joint disorders and dislocations; trauma-related (20 sources) Loose body in knee; Translations: [Loose body in knee] Chronic Joint disorders and dislocations; trauma-related (20 sources) Deformity of patella; Translations: [Acquired deformity of other specified site] Episodic Osteoarthritis (20 sources) Arthritis of right glenohumeral joint; Translations: [Arthropathy, unspecified, shoulder region] Onset: 07-15-2021 07-15-2021 Chronic Osteoarthritis (1 source) Osteoarthritis of left knee joint; Translations: [Primary osteoarthritis of left knee] Other aftercare (2 sources) Encounter for follow-up examination after completed treatment for conditions other than malignant neoplasm; Translations: [Encounter for follow-up examination after completed treatment for conditions other than malignant ne] Onset: 05-24-2023 Episodic Other bone disease and musculoskeletal deformities (20 sources) Other specified disorders of bone, lower leg; Translations: [Bone pain of knee] Episodic Other connective tissue disease (1 source) Pain in lower limb; Translations: [Pain in fibula] Episodic Other connective tissue disease (20 sources) Infrapatellar bursitis of right knee; Translations: [Other enthesopathy of knee] Episodic Other connective tissue disease (1 source) Bilateral pes anserinus bursitis; Translations: [Pes anserinus bursitis of both knees] Other connective tissue disease (1 source) Prepatellar bursitis of left knee; Translations: [Prepatellar bursitis of left knee] Other connective tissue disease (1 source) Prepatellar bursitis of right knee; Translations: [Prepatellar bursitis, right knee] Other diseases of veins and lymphatics (20 sources) Chronic peripheral venous hypertension; Translations: [Chronic venous hypertension (idiopathic) without complications of unspecified lower extremity] Onset: 07-15-2021 07-15-2021 Chronic Other eye disorders (2 sources) Tear film insufficiency; Translations: [Dry eye syndrome of bilateral lacrimal glands] Episodic Other injuries and conditions due to external causes (1 source) Muscle strain; Translations: [Muscle strain of right shoulder, subsequent encounter] Episodic Other non-traumatic joint disorders (1 source) Knee pain; Translations: [Pain in both knees, unspecified chronicity] Episodic Other non-traumatic joint disorders (20 sources) Shoulder pain; Translations: [Pain in joint, shoulder region] Episodic Other skin disorders (2 sources) Multiple actinic keratoses; Translations: [Actinic keratosis] 05-11-2023 Episodic Other skin disorders (1 source) Seborrheic keratosis; Translations: [Other seborrheic keratosis] 05-11-2023 Episodic Other skin disorders (1 source) Lentiginosis; Translations: [Other melanin hyperpigmentation] 05-11-2023 Episodic Other skin disorders (1 source) Skin tag; Translations: [Other hypertrophic disorders of the skin] 05-11-2023 Episodic Residual codes; unclassified (20 sources) History finding; Translations: [Other specified conditions influencing health status] Episodic Retinal detachments; defects; vascular occlusion; and retinopathy (17 sources) Bilateral lattice degeneration of retinas; 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, bilateral] Onset: 09-02-2022 Chronic Retinal detachments; defects; vascular occlusion; and retinopathy (7 sources) Detachment of left retina co-occurrent with retinal defect; Translations: [Retinal detachment with multiple breaks, left eye] Episodic Unclassified (1 source) OPENED IN ERROR Past or Other Problems Problem Classification Problem Date Documented Date Episodic/Chronic Acquired foot deformities (20 sources) Foot-drop; Translations: [Foot drop, unspecified foot] Onset: 07-15-2021 07-15-2021 Episodic Other connective tissue disease (13 sources) Weakness of right leg; Translations: [Other symptoms and signs involving the musculoskeletal system] Onset: 10-31-2019 11-07-2019 Episodic Other connective tissue disease (8 sources) Other symptoms and signs involving the musculoskeletal system; Translations: [Other musculoskeletal symptoms referable to limbs] Onset: 10-31-2019 11-07-2019 Episodic Other diseases of veins and lymphatics (20 sources) Peripheral venous insufficiency; Translations: [Venous insufficiency (chronic) (peripheral)] Onset: 01-16-2008 01-16-2008 Episodic Other fractures (20 sources) Compression fracture of thoracic vertebra; Translations: [Wedge compression fracture of unspecified thoracic vertebra, initial encounter for closed fracture] Onset: 07-15-2021 07-15-2021 Episodic Other lower respiratory disease (20 sources) Respiratory insufficiency; Translations: [Other abnormalities of breathing] Onset: 07-16-2021 07-16-2021 Episodic Other non-traumatic joint disorders (20 sources) Pain in left knee; Translations: [Left knee pain, unspecified chronicity] Onset: 07-15-2021 07-15-2021 Episodic Results Test Name Value Interpretation Reference Range Facil ity Vital Signs Date Time Vital Sign Value Performing Clinician Facility 05-24-2023 11:36-0500 Diastolic Blood Pressure Non-Invasive [address] ALFA MASON MD [facility] 05-24-2023 11:36-0500 Heart rate 85 /min DR ALFA MASON MD [facility] 05-24-2023 11:36-0500 Respiratory rate 18 /min DR ALFA MASON MD [facility] 05-24-2023 11:36-0500 Systolic Blood Pressure Non-Invasive [address] ALFA MASON MD [facility] 05-24-2023 11:26-0500 Diastolic Blood Pressure Non-Invasive [address] ALFA MASON MD [facility] 05-24-2023 11:26-0500 Heart rate 88 /min DR ALFA MASON MD [facility] 05-24-2023 11:26-0500 Respiratory rate 14 /min DR ALFA MASON MD [facility] 05-24-2023 11:26-0500 Systolic Blood Pressure Non-Invasive [address] ALFA MASON MD [facility] 05-24-2023 11:20-0500 Diastolic Blood Pressure Non-Invasive [address] ALFA MASON MD [facility] 05-24-2023 11:20-0500 Heart rate 86 /min DR ALFA MASON MD [facility] 05-24-2023 11:20-0500 Respiratory Rate - Anes 16 br/min DR ALFA MASON MD [facility] 05-24-2023 11:20-0500 Systolic Blood Pressure Non-Invasive [address] ALFA MASON MD [facility] 05-24-2023 11:15-0500 Respiratory Rate - Anes 13 br/min DR ALFA MASON MD [facility] 05-24-2023 11:10-0500 Respiratory Rate - Anes 0 br/min DR ALFA MASON MD [facility] 05-24-2023 10:12-0500 Blood Pressure Cuff Size DR ALFA MASON MD [facility] 05-24-2023 10:12-[address] ALFA MASON MD [facility] 05-24-2023 10:12-[address] ALFA MASON MD [facility] 05-24-2023 10:12-0500 Body height 195.[address] ALFA MASON MD [facility] 05-24-2023 10:12-0500 Body temperature 98.24 [degF] DR ALFA MASON MD [facility] 05-24-2023 10:12-0500 Body weight 154.[address] ALFA MASON MD [facility] 05-24-2023 10:12-0500 Body weight 40.38 kg/m2 DR ALFA MASON MD [facility] 05-24-2023 10:12-0500 Heart rate 81 /min DR ALFA MASON MD [facility] 05-24-2023 10:12-0500 Respiratory rate 16 /min DR ALFA MASON MD [facility] 03-24-2022 09:25-0400 Diastolic blood pressure 78 mm[Hg] Bradly Sanders MD Work Phone: [facility] 03-24-2022 09:25-0400 Heart rate 80 /min Bradly Sanders MD Work Phone: [facility] 03-24-2022 09:25-0400 Respiratory rate 14 /min Bradly Sanders MD Work Phone: [facility] 03-24-2022 09:25-0400 SaO2% (BldA) [Mass fraction] 93 % Bradly Sanders MD Work Phone: [facility] 03-24-2022 09:25-0400 Systolic blood pressure 142 mm[Hg] Bradly Sanders MD Work Phone: [facility] 03-24-2022 09:15-0400 Body temperature 97.9 [degF] Bradly Sanders MD Work Phone: [facility] 03-24-2022 07:07-0400 Body height 198.1 cm Bradly Sanders MD Work Phone: [facility] 03-24-2022 07:07-0400 Body weight 163.75 kg Bradly Sanders MD Work Phone: [facility] 01-14-2022 08:42-0400 Body height 198.1 cm Delta Benito 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 SERVICE TECHNICIAN.[employer] Work Phone: [facility] 01-14-2022 08:42-0400 Body weight 163.93 kg Delta Benito ARMORED SERVICE TECHNICIAN.[employer]OR [employer] Work Phone: [facility] 01-14-2022 08:42-0400 Respiratory rate 18 /min Delta Benito ARMORED SERVICE TECHNICIAN.[employer] Work Phone: [facility] 09-02-2021 08:38-0500 Body height 195.58 cm No PCP None [facility] 300 Work Phone: 09-02-2021 08:38-0500 Body mass index (BMI) [Ratio] 40.91 kg/m2 No PCP None [facility] Work Phone: 09-02-2021 08:38-0500 Body surface area Derived from formula 2.82 m2 No PCP None [facility] Work Phone: 09-02-2021 08:38-0500 Body weight 156.49 kg No PCP None [facility] Work Phone: 04-23-2021 11:25-0400 Body height 195.58 cm No PCP None [facility] Work Phone: 04-23-2021 11:25-0400 Body mass index (BMI) [Ratio] 40.94 kg/m2 No PCP None [facility] Work Phone: 04-23-2021 11:25-0400 Body surface area Derived from formula 2.82 m2 No PCP None [facility] Work Phone: 04-23-2021 11:25-0400 Body temperature 97.3 [degF] No PCP None [facility] Work Phone: 04-23-2021 11:25-0400 Body weight 156.61 kg No PCP None [facility] Work Phone: 04-23-2021 11:25-0400 Diastolic blood pressure 85 mm[Hg] No PCP None [facility] Work Phone: 04-23-2021 11:25-0400 Heart rate 105 /min No PCP None [facility] Work Phone: 04-23-2021 11:25-0400 Systolic blood pressure 161 mm[Hg] No PCP None [facility] Work Phone: 03-20-2021 09:13-0400 Body height 195.58 cm No PCP None [facility] Work Phone: 03-20-2021 09:13-0400 Body mass index (BMI) [Ratio] 40.32 kg/m2 No PCP None [facility] Work Phone: 03-20-2021 09:13-0400 Body surface area Derived from formula 2.8 m2 No PCP None [facility] Work Phone: 03-20-2021 09:13-0400 Body temperature 97.3 [degF] No PCP None [facility] Work Phone: 03-20-2021 09:13-0400 Body weight 154.22 kg No PCP None [facility] Work Phone: 03-20-2021 09:13-0400 Diastolic blood pressure 68 mm[Hg] No PCP None [facility] Work Phone: 03-20-2021 09:13-0400 Systolic blood pressure 137 mm[Hg] No PCP None [facility] Work Phone: 02-25-2021 10:37-0400 Body height 195.58 cm No PCP None [facility] Work Phone: 02-25-2021 10:37-0400 Body mass index (BMI) [Ratio] 39.96 kg/m2 No PCP None [facility] Work Phone: 02-25-2021 10:37-0400 Body surface area Derived from formula 2.79 m2 No PCP None [facility] Work Phone: 02-25-2021 10:37-0400 Body temperature 97.3 [degF] No PCP None [facility] Work Phone: 02-25-2021 10:37-0400 Body weight 152.86 kg No PCP None [facility] Work Phone: 02-25-2021 10:37-0400 Diastolic blood pressure 84 mm[Hg] No PCP None [facility] Work Phone: 02-25-2021 10:37-0400 Heart rate 86 /min No PCP None [facility] Work Phone: 02-25-2021 10:37-0400 Systolic blood pressure 137 mm[Hg] No PCP None [facility] Work Phone: 01-24-2021 11:46-0400 Body height 195.58 cm No PCP None [facility] Work Phone: 01-24-2021 11:46-0400 Body mass index (BMI) [Ratio] 38.94 kg/m2 No PCP None [facility] Work Phone: 01-24-2021 11:46-0400 Body surface area Derived from formula 2.76 m2 No PCP None [facility] Work Phone: 01-24-2021 11:46-0400 Body temperature 97.7 [degF] No PCP None [facility] Work Phone: 01-24-2021 11:46-0400 Body weight 148.95 kg No PCP None [facility] Work Phone: 01-24-2021 11:46-0400 Diastolic blood pressure 80 mm[Hg] No PCP None [facility] Work Phone: 01-24-2021 11:46-0400 Systolic blood pressure 132 mm[Hg] No PCP None [facility] Work Phone: 01-03-2021 11:11-0400 Body height 195.58 cm [facility]: 01-03-2021 11:11-0400 Body mass index (BMI) [Ratio] 38.21 kg/m2 No [facility]CP [facility] Work Phone: 01-03-2021 11:11-0400 Body surface area Derived from formula 2.74 m2 No PCP [facility] Work Phone: 01-03-2021 11:11-0400 Body temperature 97.8 [degF] No PCP [facility] Work Phone: 01-03-2021 11:11-0400 Body weight 146.17 kg No [facility] Work Phone: 01-03-2021 11:11-0400 Diastolic blood pressure 90 mm[Hg] No [facility] Work Phone: 01-03-2021 11:11-0400 Systolic blood pressure 162 mm[Hg] No [facility] Work Phone: 12-03-2020 14:25-0400 Body height 195.58 cm No PCP None [facility] 300 Work Phone: 12-03-2020 14:25-0400 Body mass index (BMI) [Ratio] 37.24 kg/m2 No PCP None [facility] 300 Work Phone: 12-03-2020 14:25-0400 Body surface area Derived from formula 2.71 m2 No PCP None [facility] 300 Work Phone: 12-03-2020 14:25-0400 Body temperature 96.9 [degF] No PCP None [facility] 300 Work Phone: 12-03-2020 14:25-0400 Body weight 142.43 kg No PCP None [facility] 300 Work Phone: 12-03-2020 14:25-0400 Diastolic blood pressure 88 mm[Hg] No PCP None [facility] 300 Work Phone: 12-03-2020 14:25-0400 Systolic blood pressure 150 mm[Hg] No PCP None [facility] 300 Work Phone: 11-22-2020 13:06-0400 Body height 195.58 cm Cade Valle [facility] Work Phone: 11-22-2020 13:06-0400 Body mass index (BMI) [Ratio] 36.88 kg/m2 Cade Valle [facility] Work Phone: 11-22-2020 13:06-0400 Body surface area Derived from formula 2.7 m2 Cade Valle [facility] Work Phone: 11-22-2020 13:06-0400 Body temperature 97.5 [degF] Cade Valle [facility] Work Phone: 11-22-2020 13:06-0400 Body weight 141.08 kg Cade Valle [facility] Work Phone: 11-22-2020 13:06-0400 Diastolic blood pressure 88 mm[Hg] Cade Valle [facility] Work Phone: 11-22-2020 13:06-0400 Systolic blood pressure 150 mm[Hg] Cade Valle [facility] Work Phone: 11-22-2020 11:06-0400 Body height 195.58 cm No PCP None [facility] 300 Work Phone: 11-22-2020 11:06-0400 Body mass index (BMI) [Ratio] 36.88 kg/m2 No PCP None [facility] Work Phone: 11-22-2020 11:06-0400 Body surface area Derived from formula 2.7 m2 No PCP None [facility] Work Phone: 11-22-2020 11:06-0400 Body temperature 97.5 [degF] No PCP None [facility] Work Phone: 11-22-2020 11:06-0400 Body weight 141.08 kg No PCP None [facility] Work Phone: 11-22-2020 11:06-0400 Diastolic blood pressure 88 mm[Hg] No PCP None [facility] Work Phone: 11-22-2020 11:06-0400 Systolic blood pressure 150 mm[Hg] No PCP None [facility] Work Phone: 10-25-2020 13:02-0400 Body height 195.58 cm Cade Valle DO [facility] Work Phone: 10-25-2020 13:02-0400 Body mass index (BMI) [Ratio] 36.29 kg/m2 Cade Valle DO [facility] Work Phone: 10-25-2020 13:02-0400 Body surface area Derived from formula 2.68 m2 Cade Valle DO [facility] Work Phone: 10-25-2020 13:02-0400 Body temperature 97.3 [degF] Cade Valle DO [facility] Work Phone: 10-25-2020 13:02-0400 Body weight 138.8 kg Cade Valle DO [facility] Work Phone: 10-25-2020 13:02-0400 Diastolic blood pressure 83 mm[Hg] Cade Valle DO [facility] 300 Work Phone: 10-25-2020 13:02-0400 Systolic blood pressure 149 mm[Hg] Cade Valle DO [facility] 300 Work Phone: 11-30-2019 09:52-0400 BMI (Body Mass Index) 36.75 kg/m2 Hardy Clark [facility] 11-30-2019 09:52-0400 Body weight 144.24 kg Hardyairam Clark [facility] 11-30-2019 09:52-0400 Height 198.1 cm Hardy Clark [facility] Encounters Encounter Date Encounter Type Care Provider Facility Start: 07-02-2023 End: 07-02-2023 ambulatory ANGELIC MONSALVE Facility:[facility] Start: 06-24-2023 End: 06-24-2023 ambulatory MERI VIEIRA Facility:[facility] Start: 06-24-2023 End: 06-24-2023 Office outpatient visit 25 minutes Meri Vieira MD Work Phone: Dermatology Procedures Date Procedure Procedure Detail Performing Clinician Start: 12-24-2022 Computerized ophthal natasha imaging retina Wilmer Canales MD, PhD Work Phone: Start: 11-12-2022 Computerized ophthal natasha imaging retina Wilmer Canales MD, PhD Work Phone: Start: 09-24-2022 Computerized ophthal natasha imaging retina Wilmer Canales MD, PhD Work Phone: Start: 08-18-2022 Post-cataract laser surgery Bradly Sanders MD Work Phone: Start: 07-30-2022 Computerized ophthal natasha imaging retina Wilmer Canales MD, PhD Work Phone: Start: 06-24-2022 Computerized ophthal natasha imaging retina Bradly Sanders MD Work Phone: Start: 06-02-2022 Computerized ophthal natasha imaging retina Bradly Sanders MD Work Phone: Start: 05-12-2022 Computerized ophthal natasha imaging retina Bradly Sanders MD Work Phone: Start: 05-06-2022 Computerized ophthal natasha imaging retina Bradly Sanders MD Work Phone: Start: 03-24-2022 Gluc bld gluc mntr d ev cleared fda spec home use Bradly Sanders MD Work Phone: Start: 03-24-2022 End: 03-24-2022 Oph bmtry prtl coher intrfrmtry io lens pwr [place] Bradly Sanders MD Work Phone: Start: 03-24-2022 End: 03-24-2022 Xcapsl ctrc rmvl insj io lens prosth w/o ecp Bradly Sanders MD Work Phone: Start: 03-24-2022 Gluc bld gluc mntr d ev cleared fda spec home use Bradly Sanders MD Work Phone: Start: 12-09-2021 IOL BIOMETRY W/ IOL CALC OU (BOTH EYES) Bradly Sanders MD Work Phone: Start: 12-09-2021 End: 12-09-2021 Computerized ophthalmic imaging retina Bradly Sanders MD Work Phone: Start: 09-29-2021 Computerized ophthal natasha imaging retina Carly Kim MD Work Phone: Start: 07-20-2019 MRI Shoulder without Contrast Helga Lucas Start: 04-07-2017 Adult depression scr eening assessment Carly Kim MD Work Phone: History of No histor y of surgery Helga Black Procedure on back Cade llamas DO Plan of Treatment Date Care Activity Detail Author Start: 07-23-2025 Urine microalbumin profile DTaP,Tdap,Td Vaccine (2 - Td or Tdap) [facility] Start: 04-01-2024 Glaucoma screening Dilated Retinal Exam [facility] Start: 04-01-2024 Hepatitis C antibody, confirmatory test Dilated Retinal Exam [facility] Start: 01-08-2024 End: 06-16-2024 OCT MACULA CIRRUS OU (BOTH EYES) OCT MACULA CIRRUS OU (BOTH EYES) OPHT Imaging Routine CME (cystoid macular edema), 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, without long-term current use of insulin (HCC) Dry eye syndrome of both eyes Expected: 01/08/2024, Expires: 06/16/2024 [facility] Work Phone: Immunizations Immunization Date Immunization Notes Care Provider Fa yael 05-18-2022 influenza virus vaccine, unspecified formulation Meri Haywood MD Work Phone: [facility] 10-11-2020 Pfizer-BioNTech COVID-19 Vacc 30 MCG/0.3ML Intramuscular Suspension No PCP None [facility] Work Phone: 09-20-2020 Pfizer-BioNTech COVID-19 Vacc 30 MCG/0.3ML Intramuscular Suspension No PCP None [facility] Work Phone: 04-16-2020 influenza, seasonal, injectable No PCP None [facility] Work Phone: 04-16-2020 zoster vaccine recombinant No PCP None [facility] Work Phone: 07-23-2015 tetanus toxoid, redu veronica diphtheria toxoid, and acellular pertussis vaccine, adsorbed No PCP None [facility] Work Phone: Payers Date Payer Category Payer Private Health Insurance [id number] 2021 Medicaid [facility] [id number] 2021-Present [phone] [address] [place] [address] Medicaid [id number] 2022 Medicaid [id number] 2021 Medicaid [id number] 2019 Worker's Compensation [employer] [id number] 2019-Present [id number] 2019 Worker's Compensation [id number] 2019 Worker's Compensation [employer] [id number] 2019-Present [id number] 1958 Unknown [id number] 1958 Unknown [id number] 903 1958 Unknown [id number] 903 1958 Unknown [id number] 903 1958 Unknown [id number] 903 1958 Unknown [id number] 903 1958 Unknown [id number] 903 1958 Unknown [id number] 903 1958 Unknown [id number] Unknown Social History Date Type Detail [facility] Start: 1960 Sex Assigned At Not on file [facility] Start: 11-30-2019 End: 03-25-2022 Tobacco smoking status NHIS Never smoker [facility] Work Phone: Start: 11-30-2019 Alcohol intake Ex-drinker (finding) [facility] Start: 09-19-2021 End: 03-25-2022 Exposure to SARS-CoV-2 (event) Not sure [facility] Start: 11-30-2019 End: 03-25-2022 Tobacco use and exposure Never used [facility] Start: 06-17-2020 End: 04-01-2023 Non-smoker Non-smoker [facility] Work Phone: Start: 09-29-2021 End: 04-01-2023 Alcohol intake Current non-drinker of alcohol (finding) [facility] Start: 10-31-2019 History SDOH Financial 3 [facility] Start: 10-31-2019 History SDOH Food Worry 1 [facility] Start: 10-31-2019 History SDOH Transpo rt Med 2 [facility] Start: 06-17-2020 End: 04-01-2023 Tobacco use panel [facility] Work Phone: How hard is it for y ou to pay for the very basics like food, housing, medical care, and heating Somewhat hard [facility] Work Phone: (I/We) worried wheth er (my/our) food would run out before (I/we) got money to buy more. Never true [facility] Work Phone: In the past 12 month s, has lack of transportation kept you from medical appointments or from getting medications? No [facility] Work Phone: Tobacco smoking status No Smokin g Status Entered [facility] Sex Assigned At Male [facility] NEGATED: Highlighted row - [facility] Work Phone: Medical Equipment Procedure Code Equipment Code Equipment Origin al Text Equipment Identifier Dates Gas Ispan [employer]ellation Intraocular Vision System [id number] 125gm - [id number] Start: 07-16-2021 Sleeve 2.1mm 1mm Silicone 70mm Retinal Round Sterile - [id number] Start: 07-16-2021 Strip Silicone 125x3.5x.75mm Scleral Style 41 - [id number] Start: 07-16-2021 Lens Acrysof Ult rasert +14 Diopter Acrylic Iol 1 Piece Foldable Uv Blue - [id number] Start: 03-24-2022 Functional Status Date Assessment Result Facility 05-24-2023 Functional Status Awake [facility] 05-24-2023 Functional Status Lem[facility] NEGATED: Highlighted row Functional performance Functional status health issues are not documented [facility] Work Phone: Mental Status Date Assessment Result Facility NEGATED: Highlighted row Cognitive function [Interpretation] Cognitive status health issues are not documented [facility] Work Phone: Clinical Notes 10-31-2019 to 07-02-2023 Meri Vieira V, MD - 06/24/2023 9:20 AM EST Note Date & Type Note Facility 07-02-2023 Note HNO ID: [id number] Author: Zachary Hogan APRN.[employer] Service: ? Author Type: Nurse Practitioner Type: Progress Notes Filed: 07/02/2023 11:29 AM Note Text: Subjective HPI Nontoxic-appearing male presents urgent care chief complaint cough chest congestion. Duration of symptoms 5 to 6 days. Associate symptoms listed above. States started feeling poorly on Wednesday. Symptoms worsened on Wednesday. Did have night sweats and fatigue. No fevers. Night sweats have improved. Presents today due to lingering cough sinus pressure sore throat in the morning and fatigue. States tested positive for COVID-19 last week. No OTC medication use today. Denies any fever productive cough chest pain hemoptysis nausea vomiting abdominal pain change in bowel or bladder habits. Past medical history prescription medication use allergies reviewed. 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 Fluorouracil (EFUDEX) 5 % cream Apply a thin layer to spots on right cheek and right neck once a day x4 weeks. ferrous sulfate 325 mg (65 mg iron) EC tablet Take 1 tablet by mouth once daily. keTORolac (ACULAR) 0.5 % ophthalmic solution Use 1 Drop in the left eye four times daily. prednisoLONE acetate (PRED FORTE) 1 % ophthalmic suspension Use 1 Drop in the left eye four times daily. ibuprofen (MOTRIN) 600 mg tablet Take 600 mg by mouth every 6 hours as needed. cyanocobalamin (VITAMIN B-12) 1,000 mcg tab Take 1 tablet by mouth once daily. gabapentin (NEURONTIN) 300 mg capsule Take 1 capsule by mouth every 12 hours for 30 days. tamsulosin (FLOMAX) 0.4 mg (Patient not taking: Reported on 04/01/2023) neomycin/polymyxin b/dexametha(MAXITROL 3.5 MG/G-10,000 UNIT/G-0.1 % EYE OINTMENT) Use 1 application in the left eye four times daily. Apply 1/2 inch ribbon per application (Patient not taking: No sig reported) atropine 1 % ophthalmic solution Use 1 Drop in the left eye twice daily. aspirin 81 mg chewable tablet Take 1 tablet by mouth once daily. atorvastatin (LIPITOR) 20 mg tablet Take 1 tablet by mouth daily at bedtime. (Patient taking differently: Take 20 mg by mouth daily at bedtime. Never took) lisinopril (ZESTRIL, PRINIVIL) 10 mg tablet Take 1 tablet by mouth once daily. metFORMIN (GLUCOPHAGE) 500 mg tablet Take 1 tablet by mouth twice daily with meals. Cholecalciferol, Vitamin D3, (VITAMIN D) 25 mcg (1,000 unit) cap Take 1 capsule by mouth once daily. guaiFENesin (MUCINEX) 600 mg 12 hr tablet Take 2 tablets by mouth twice daily. (Patient not taking: No sig reported) FAMILY HISTORY Problem Relation Age of Onset Cancer No Family History Diabetes No Family History Hypertension No Family History Heart No Family History No Ocular Disease No Family History Social History Tobacco Use Smoking status: Never Smokeless tobacco: Never Vaping Use Vaping Use: Never used Substance Use Topics Alcohol use: No Drug use: No BP 158/82 Pulse 90 Temp 36.8 ?C (98.2 ?F) (Tympanic) Resp 16 Wt (!) 160.1 kg (353 lb) SpO2 96% BMI 40.79 kg/m? Review of Systems Constitutional: Positive for malaise/fatigue. Negative for chills and fever. HENT: Positive for congestion and sinus pain. Negative for ear discharge, ear pain and sore throat. Eyes: Negative for blurred vision, pain, discharge and redness. Respiratory: Positive for cough. Negative for hemoptysis, sputum production, shortness of breath, wheezing and stridor. Cardiovascular: Negative for chest pain. Gastrointestinal: Negative for abdominal pain, diarrhea, nausea and vomiting. Musculoskeletal: Positive for myalgias. Skin: Negative for itching and rash. Neurological: Negative for dizziness and headaches. Objective Physical Exam Constitutional: General: He is not in acute distress. Appearance: He is not diaphoretic. HENT: Head: Normocephalic. Jaw: No trismus, tenderness, swelling or pain on movement. Nose: Congestion present. Mouth/Throat: Mouth: Mucous membranes are moist. Pharynx: Oropharynx is clear. Uvula midline. No pharyngeal swelling, oropharyngeal exudate, posterior oropharyngeal erythema or uvula swelling. Eyes: Conjunctiva/sclera: Conjunctivae normal. Pupils: Pupils are equal, round, (more content not included)... [facility] 06-24-2023 Note HNO ID: [id number] Author: Meri Vieira V, MD Service: ? Author Type: Physician Type: Progress Notes Filed: 06/24/2023 11:03 AM Note Text: PROGRESS NOTE: Parts of the documentation for this note were completed by Marium Mitchell RN for Meri Vieira MD. June 24, 2023 9:20 AM. Khoa Connors Jr. is a 62 year old male here for: Chief Complaint: Follow Up History of Present Ilness: Location: right cheek and right neck Duration: 2 month Symptoms (growing, itching, bleeding, tender): none Current treatment: Efudex Past treatments: as above Narrative/Interval history: s/p follow up for AK's using efudex once daily for 4 weeks. Pertinent Past Medical History: History of melanoma? No History of non melanoma skin cancer? No History of atypical nevi? No History of blistering sunburns? Yes History of tanning bed use? No History of organ transplantation? No History of immunosuppression/exposure to radiation? 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 Pertinent Family Medical History: History of melanoma? No Pertinent Social History: Current Smoker? No Other: : N/A : N/A Pacemaker/Defibrillator: No Aspirin/anticoagulant use: No History of valve replacement: No History of joint replacement: No Review of Systems: Constitutional: - Fever: No, chills: No, night sweats: No, cough: No, muscle aches: No, unintentional weight loss: No. Skin: No other skin complaints except as noted in HPI. Physical Exam: WD, WN, NAD. Normal mood and affect. Exam included: Face Neck Back Buttocks All normal except: - Coalescing pink non-scaly macules on right cheek and one on right lateral neck. - Eczematous round patch on mid lower back. Assessment and Plan: 1. Nummular dermatitis - Start clobetasol (TEMOVATE) 0.05 % cream; Apply twice a day to eczema on lower back until resolved. 2. Actinic keratoses - Resolved s/p Efudex. Labs/Imaging reviewed: No Prior pathology reviewed: No Outside records reviewed: No External notes from each unique source reviewed: No Procedures: N/A Medical Decision Making: Problems: Low: Stable chronic illness Moderate: 1+ chronic illnesses with change Risk: Moderate: Drug management Medical Decision Making Level: 4 - Moderate Return in about 6 months (around 12/24/2023) for Skin check. or sooner if concerns/questions. Medications / Allergies / Immunizations: has a current medication list which includes the following prescription(s): clobetasol, fluorouracil, tamsulosin, ferrous sulfate, ketorolac, prednisolone acetate, nykfxrpi-zsosiadws-woaijleskkkyp, atropine, ibuprofen, aspirin, atorvastatin, cyanocobalamin, gabapentin, lisinopril, metformin, cholecalciferol (vitamin d3), and guaifenesin. ALLERGIES Allergen Reactions Gabapentin Mental Status Change Pt also had hallucinations Latex I agree with the Chief Complaint, ROS, and Past Histories independently gathered by the clinical family support worker and the remaining scribed note accurately describes my personal service to the patient. Meri Vieira MD Dermatology [facility] 06-24-2023 History of Present illness Narrative PROGRESS NOTE: Parts of the documentation for this note were completed by Marium Mitchell RN for Meri Vieira MD. June 24, 2023 9:20 AM. Khoa Connors Jr. is a 62 year old male here for: Chief Complaint: Follow Up History of Present Ilness: Location: right cheek and right neck Duration: 2 month Symptoms (growing, itching, bleeding, tender): none Current treatment: Efudex Past treatments: as above Narrative/Interval history: s/p follow up for AK's using efudex once daily for 4 weeks. Pertinent Past Medical History: History of melanoma? No History of non melanoma skin cancer? No History of atypical nevi? No History of blistering sunburns? Yes History of tanning bed use? No History of organ transplantation? No History of immunosuppression/exposure to radiation? 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 Pertinent Family Medical History: History of melanoma? No Pertinent Social History: Current Smoker? No Other: : N/A : N/A Pacemaker/Defibrillator: No Aspirin/anticoagulant use: No History of valve replacement: No History of joint replacement: No Review of Systems: Constitutional: - Fever: No, chills: No, night sweats: No, cough: No, muscle aches: No, unintentional weight loss: No. Skin: No other skin complaints except as noted in HPI. Physical Exam: WD, WN, NAD. Normal mood and affect. Exam included: Face Neck Back Buttocks All normal except: - Coalescing pink non-scaly macules on right cheek and one on right lateral neck. - Eczematous round patch on mid lower back. Assessment and Plan: 1. Nummular dermatitis - Start clobetasol (TEMOVATE) 0.05 % cream; Apply twice a day to eczema on lower back until resolved. 2. Actinic keratoses - Resolved s/p Efudex. Labs/Imaging reviewed: No Prior pathology reviewed: No Outside records reviewed: No External notes from each unique source reviewed: No Procedures: N/A Medical Decision Making: Problems: Low: Stable chronic illness Moderate: 1+ chronic illnesses with change Risk: Moderate: Drug management Medical Decision Making Level: 4 - Moderate Return in about 6 months (around 12/24/2023) for Skin check. or sooner if concerns/questions. Medications / Allergies / Immunizations: has a current medication list which includes the following prescription(s): clobetasol, fluorouracil, tamsulosin, ferrous sulfate, ketorolac, prednisolone acetate, fohywojo-jxjplwtpz-gkhdobmfvmrjo, atropine, ibuprofen, aspirin, atorvastatin, cyanocobalamin, gabapentin, lisinopril, metformin, cholecalciferol (vitamin d3), and guaifenesin. ALLERGIES Allergen Reactions Gabapentin Mental Status Change Pt also had hallucinations Latex I agree with the Chief Complaint, ROS, and Past Histories independently gathered by the clinical family support worker and the remaining scribed note accurately describes my personal service to the patient. Meri Vieira MD Dermatology documented in this encounter [facility] ADMISSION HISTORY AN D PHYSICIAL CHIEF COMPLAINT: HISTORY OF PRESENT ILLNESS: REVIEW OF SYSTEMS: ACTIVE PROBLEMS: No qualifying data available for Problems MEDICATIONS: Active Inpt Meds: None Active PRN Meds: None One Time Meds: None Active IV Meds: Lactated Ringers Infusion 1,000 mL (LR 1,000 mL) Start: 05/24/23 10:11:00 EST, Rate: 50 mL/hr, 05/24/23 10:11:00 EST ALLERGIES: (1) Latex FAMILY HISTORY: SOCIAL HISTORY: PHYSICAL EXAM: VITALS: [id number](kg) 05/24 10:1236.8--[id number]--19/49276.5 24 Hr Tmax: 36.8 at 05/24 10:12 36 Hr Tmax: 36.8 at 05/24 10:12 Vital Signs are the last 5 in the past 48 hours. Weights display the last 5 within 7 days. Initial Wt: 05/24 154.5 kg 340 lb Current Wt: 05/24 154.5 kg 340 lb GENERAL: HEENT: CARDIOVASCULAR: RESPIRATORY: ABDOMEN: EXREMETIES: NEUROLOGICAL: PSYCHIATRIC: LABS: No 36hr Lab Data DIAGNOSTICS: IMPRESSION: PLAN: History and Physical Update I have examined the patient; reviewed the H&P and there are no changes to the H&P unless noted below. [facility] 11-13-2023 Hospital Discharge instructions Patient Education 05/24/2023 11:37:19 Colon Polyps Colon Polyps Polyps are tissue growths inside the body. Polyps can grow in many places, including the large intestine (colon). A polyp may be a round bump or a mushroom-shaped growth. You could have one polyp or several. Most colon polyps are noncancerous (benign). However, some colon polyps can become cancerous over time. Finding and removing the polyps early can help prevent this. What are the causes? The exact cause of colon polyps is not known. What increases the risk? You are more likely to develop this condition if you: Have a family history of colon cancer or colon polyps. Are older than 50 or older than 45 if you are . Have inflammatory bowel disease, such as ulcerative colitis or Crohn's disease. Have certain hereditary conditions, such as: ?Familial adenomatous polyposis. ?Rosales syndrome. ?Turcot syndrome. ?Peutz Jeghers syndrome. Are overweight. Smoke cigarettes. Do not get enough exercise. Drink too much alcohol. Eat a diet that is high in fat and red meat and low in fiber. Had childhood cancer that was treated with abdominal radiation. What are the signs or symptoms? Most polyps do not cause symptoms. If you have symptoms, they may include: Blood coming from your rectum when having a bowel movement. Blood in your stool. The stool may look dark red or black. Abdominal pain. A change in bowel habits, such as constipation or diarrhea. How is this diagnosed? This condition is diagnosed with a colonoscopy. This is a procedure in which a lighted, flexible scope is inserted into the anus and then passed into the colon to examine the area. Polyps are sometimes found when a colonoscopy is done as part of routine cancer screening tests. How is this treated? Treatment for this condition involves removing any polyps that are found. Most polyps can be removed during a colonoscopy. Those polyps will then be tested for cancer. Additional treatment may be needed depending on the results of testing. Follow these instructions at home: Lifestyle Maintain a healthy weight, or lose weight if recommended by your health care provider. Exercise every day or as told by your health care provider. Do not use any products that contain nicotine or tobacco, such as cigarettes and e-cigarettes. If you need help quitting, ask your health care provider. If you drink alcohol, limit how much you have: ?0 1 drink a day for women. ? 0 2 drinks a day for men. Be aware of how much alcohol is in your drink. In the [place] one drink equals one 12 oz bottle of beer (355 mL), one 5 oz glass of wine (148 mL), or one 1 oz shot of hard liquor (44 mL). Eating and drinking Eat foods that are high in fiber, such as fruits, vegetables, and whole grains. Eat foods that are high in calcium and vitamin D, such as milk, cheese, yogurt, eggs, liver, fish, and broccoli. Limit foods that are high in fat, such as fried foods and desserts. Limit the amount of red meat and processed meat you eat, such as hot dogs, sausage, walsh, and lunch meats. General instructions Keep all follow-up visits as told by your health care provider. This is important. ?This includes having regularly scheduled colonoscopies. ?Talk to your health care provider about when you need a colonoscopy. Contact a health care provider if: You have new or worsening bleeding during a bowel movement. You have new or increased blood in your stool. You have a change in bowel habits. You lose weight for no known reason. Summary Polyps are tissue growths inside the body. Polyps can grow in many places, including the colon. Most colon polyps are noncancerous (benign), but some can become cancerous over time. This condition is diagnosed with a colonoscopy. Treatment for this condition involves removing any polyps that are found. Most polyps can be removed during a colonoscopy. This information is not intended to replace advice given to you by your health care provider. Make sure you discuss any questions you have with your health care provider. Document Released: 03/24/2005 Document Revised: 10/13/2018 Document Reviewed: 10/13/2018 [employer] Patient Education 2020 [employer]. 05/24/2023 11:37:09 Colonoscopy, Adult, Care After Colonoscopy, Adult, Care After This sheet gives you information about how to care for yourself after your procedure. Your health care provider may also give you more specific instructions. If you have problems or questions, contact your health care provider. What can I expect after the procedure? After the procedure, it is common to have: A small amount of blood in your stool for 24 hours after the procedure. Some gas. Mild abdominal cramping or bloating. Follow these instructions at home: General instructions For the first 24 hours after the procedure: ?Do not drive or use machinery. ?Do not sign important documents. ?Do not drink alcohol. ?Do your regular daily activities at a slower pace than normal. ?Eat soft, papi-ck-cbslfr foods. Take tqoz-sev-segdsyy or prescription medicines only as told by your health care provider. Relieving cramping and bloating Try walking around when you have cramps or feel bloated. Apply heat to your abdomen as told by your health care provider. Use a heat source that your healthcare provider recommends, such as a moist heat pack or a heating pad. ?Place a towel between your skin and the heat source. ?Leave the heat on for 20 30 minutes. ?Remove the heat if your skin turns bright red. This is especially important if you are unable to feel pain, heat, or cold. You may have a greater risk of getting burned. Eating and drinking Drink enough fluid to keep your urine pale yellow. Resume your normal diet as instructed by your health care provider. Avoid heavy or fried foods thatare hard to digest. Avoid drinking alcohol for as long as instructed by your health care provider. Contact a health care provider if: You have blood in your stool 2 3 days after the procedure. Get help right away if: You have more than a small spotting of blood in your stool. You pass large blood clots in your stool. Your abdomen is swollen. You have nausea or vomiting. You have a fever. You have increasing abdominal pain that is not relieved with medicine. Summary After the procedure, it is common to have a small amount of blood in your stool. You may also have mild abdominal cramping and bloating. For the first 24 hours after the procedure, do not drive or use machinery, sign important documents, or drink alcohol. Contact your health care provider if you have a lot of blood in your stool, nausea or vomiting, a fever, or increased abdominal pain. This information is not intended to replace advice given to you by your health care provider. Make sure you discuss any questions you have with your health care provider. Document Released: 02/09/2005 Document Revised: 04/20/2018 Document Reviewed: 09/08/2016 [employer] Patient Education 2020 [employer]. 05/24/2023 11:37:03 Monitored Anesthesia Care, Care After Monitored Anesthesia Care, Care After These instructions provide you with information about caring for yourself after your procedure. Your health care provider may also give you more specific instructions. Your treatment has been plannedaccording to current medical practices, but problems sometimes occur. Call your health care provider if you have any problems or questions after your procedure. What can I expect after the procedure? After your procedure, you may: Feel sleepy for several hours. Feel clumsy and have poor balance for several hours. Feel forgetful about what happened after the procedure. Have poor judgment for several hours. Feel nauseous or vomit. Have a sore throat if you had a breathing tube during the procedure. Follow these instructions at home: For at least 24 hours after the procedure: Have a responsible adult stay with you. It is important to have someone help care for you until youare awake and alert. Rest as needed. Do not: ?Participate in activities in which you could fall or become injured. ?Drive. ?Use heavy machinery. ?Drink alcohol. ?Take sleeping pills or medicines that cause drowsiness. ?Make important decisions or sign legal documents. ?Take care of children on your own. Eating and drinking Follow the diet that is recommended by your health care provider. If you vomit, drink water, juice, or soup when you can drink without vomiting. Make sure you have little or no nausea before eating solid foods. General instructions Take xfye-oan-dwttmju and prescription medicines only as told by your health care provider. If you have sleep apnea, surgery and certain medicines can increase your risk for breathing problems. Follow instructions from your health care provider about wearing your sleep device: ?Anytime you are sleeping, including during daytime naps. ?While taking prescription pain medicines, sleeping medicines, or medicines that make you drowsy. If you smoke, do not smoke without supervision. Keep all follow-up visits as told by your health care provider. This is important. Contact a health care provider if: You keep feeling nauseous or you keep vomiting. You feel light-headed. You develop a rash. You have a fever. Get help right away if: You have trouble breathing. Summary For several hours after your procedure, you may feel sleepy and have poor judgment. Have a responsible adult stay with you for at least 24 hours or until you are awake and alert. This information is not intended to replace advice given to you by your health care provider. Make sure you discuss any questions you have with your health care provider. Document Released: 10/18/2016 Document Revised: 09/26/2018 Document Reviewed: 10/18/2016 [employer] Patient Education [employer]. Follow Up Care 04/14/2023 10:04:53 With:ALFA MASON MD Address: [address] [place] [address] [phone] When: Unknown Comments:Follow-up as needed [facility] 11-13-2023 Summary of episode note Discharge Instructions Thank you for allowing [facility] to assist you with your healthcare needs. The following is importantdischarge information regarding your hospital visit. Your Care Team ANGELIC MONSALVE MD Your Diagnosis Colonoscopy What to do next Follow Up Appointments Follow Up with ALFA MASON MD When Why: Follow-up as needed Where: [address] [place] [address] [phone] The Following Activity and Diet Have Been Ordered for You Discharge Activity - Ordered -- NO activity restrictions, 05/24/23 11:23:00 EST Discharge Diet - Ordered -- Follow the post-operative/post-procedure diet instructions provided by your physician's office.,05/24/23 11:23:00 EST The Following Equipment Has Been Ordered for You Discharge Home Equipment Discharge Wound Care - Ordered -- Follow the post-operative/post-procedure wound care instructions provided by your physician's office., 05/24/23 11:23:00 EST Allergies Latex Medications Please ask your primary doctor or pharmacist before taking any other medication not listed, including over the counter drugs, herbal medications, vitamins and or supplements as they may interact withyour home medications. What How Much When Instructions Last Dose Unchanged ferrous sulfate (FeroSul 325 mg (65 mg elemental iron) oral tablet) 1 tab(s) by mouth Three (3) times a day Unchanged fluorouracil topical (fluorouracil 5% topical cream) 1 application Topical Two (2) times a day Please take this list to your next doctor s visit. Bring all medications you take, including over the counter medications, herbals and other supplements with you to your doctor s visit. Patients and families are reminded to discard old lists and to update any records with all medication providers or retail pharmacies. Education Materials Colon Polyps Polyps are tissue growths inside the body. Polyps can grow in many places, including the large intestine (colon). A polyp may be a round bump or a mushroom-shaped growth. You could have one polyp or several. Most colon polyps are noncancerous (benign). However, some colon polyps can become cancerous over time. Finding and removing the polyps early can help prevent this. What are the causes? The exact cause of colon polyps is not known. What increases the risk? You are more likely to develop this condition if you: Have a family history of colon cancer or colon polyps. Are older than 50 or older than 45 if you are . Have inflammatory bowel disease, such as ulcerative colitis or Crohn's disease. Have certain hereditary conditions, such as: ? Familial adenomatous polyposis. ? Rosales syndrome. ? Turcot syndrome. ? Peutz Jeghers syndrome. Are overweight. Smoke cigarettes. Do not get enough exercise. Drink too much alcohol. Eat a diet that is high in fat and red meat and low in fiber. Had childhood cancer that was treated with abdominal radiation. What are the signs or symptoms? Most polyps do not cause symptoms. If you have symptoms, they may include: Blood coming from your rectum when having a bowel movement. Blood in your stool. The stool may look dark red or black. Abdominal pain. A change in bowel habits, such as constipation or diarrhea. How is this diagnosed? This condition is diagnosed with a colonoscopy. This is a procedure in which a lighted, flexible scope is inserted into the anus and then passed into the colon to examine the area. Polyps are sometimes found when a colonoscopy is done as part of routine cancer screening tests. How is this treated? Treatment for this condition involves removing any polyps that are found. Most polyps can be removed during a colonoscopy. Those polyps will then be tested for cancer. Additional treatment may be needed depending on the results of testing. Follow these instructions at home: Lifestyle Maintain a healthy weight, or lose weight if recommended by your health care provider. Exercise every day or as told by your health care provider. Do not use any products that contain nicotine or tobacco, such as cigarettes and e-cigarettes. If you need help quitting, ask your health care provider. If you drink alcohol, limit how much you have: ? 0 1 drink a day for women. ? 0 2 drinks a day for men. Be aware of how much alcohol is in your drink. In the [place] one drink equals one 12 oz bottle of beer (355 mL), one 5 oz glass of wine (148 mL), or one 1 oz shot of hard liquor (44 mL). Eating and drinking Eat foods that are high in fiber, such as fruits, vegetables, and whole grains. Eat foods that are high in calcium and vitamin D, such as milk, cheese, yogurt, eggs, liver, fish, and broccoli. Limit foods that are high in fat, such as fried foods and desserts. Limit the amount of red meat and processed meat you eat, such as hot dogs, sausage, walsh, and lunch meats. General instructions Keep all follow-up visits as told by your health care provider. This is important. ? This includes having regularly scheduled colonoscopies. ? Talk to your health care provider about when you need a colonoscopy. Contact a health care provider if: You have new or worsening bleeding during a bowel movement. You have new or increased blood in your stool. You have a change in bowel habits. You lose weight for no known reason. Summary Polyps are tissue growths inside the body. Polyps can grow in many places, including the colon. Most colon polyps are noncancerous (benign), but some can become cancerous over time. This condition is diagnosed with a colonoscopy. Treatment for this condition involves removing any polyps that are found. Most polyps can be removed during a colonoscopy. This information is not intended to replace advice given to you by your health care provider. Make sure you discuss any questions you have with your health care provider. Document Released: 03/24/2005 Document Revised: 10/13/2018 Document Reviewed: 10/13/2018 [employer] Patient Education 2020 [employer]. Colonoscopy, Adult, Care After This sheet gives you information about how to care for yourself after your procedure. Your health care provider may also give you more specific instructions. If you have problems or questions, contact your health care provider. What can I expect after the procedure? After the procedure, it is common to have: A small amount of blood in your stool for 24 hours after the procedure. Some gas. Mild abdominal cramping or bloating. Follow these instructions at home: General instructions For the first 24 hours after the procedure: ? Do not drive or use machinery. ? Do not sign important documents. ? Do not drink alcohol. ? Do your regular daily activities at a slower pace than normal. ? Eat soft, shze-al-uuhzew foods. Take vlvd-nck-gfvcsvk or prescription medicines only as told by your health care provider. Relieving cramping and bloating Try walking around when you have cramps or feel bloated. Apply heat to your abdomen as told by your health care provider. Use a heat source that your healthcare provider recommends, such as a moist heat pack or a heating pad. ? Place a towel between your skin and the heat source. ? Leave the heat on for 20 30 minutes. ? Remove the heat if your skin turns bright red. This is especially important if you are unable to feel pain, heat, or cold. You may have a greater risk of getting burned. Eating and drinking Drink enough fluid to keep your urine pale yellow. Resume your normal diet as instructed by your health care provider. Avoid heavy or fried foods thatare hard to digest. Avoid drinking alcohol for as long as instructed by your health care provider. Contact a health care provider if: You have blood in your stool 2 3 days after the procedure. Get help right away if: You have more than a small spotting of blood in your stool. You pass large blood clots in your stool. Your abdomen is swollen. You have nausea or vomiting. You have a fever. You have increasing abdominal pain that is not relieved with medicine. Summary After the procedure, it is common to have a small amount of blood in your stool. You may also have mild abdominal cramping and bloating. For the first 24 hours after the procedure, do not drive or use machinery, sign important documents, or drink alcohol. Contact your health care provider if you have a lot of blood in your stool, nausea or vomiting, a fever, or increased abdominal pain. This information is not intended to replace advice given to you by your health care provider. Make sure you discuss any questions you have with your health care provider. Document Released: 02/09/2005 Document Revised: 04/20/2018 Document Reviewed: 09/08/2016 [employer] Patient Education 2020 [employer]. Monitored Anesthesia Care, Care After These instructions provide you with information about caring for yourself after your procedure. Your health care provider may also give you more specific instructions. Your treatment has been plannedaccording to current medical practices, but problems sometimes occur. Call your health care provider if you have any problems or questions after your procedure. What can I expect after the procedure? After your procedure, you may: Feel sleepy for several hours. Feel clumsy and have poor balance for several hours. Feel forgetful about what happened after the procedure. Have poor judgment for several hours. Feel nauseous or vomit. Have a sore throat if you had a breathing tube during the procedure. Follow these instructions at home: For at least 24 hours after the procedure: Have a responsible adult stay with you. It is important to have someone help care for you until youare awake and alert. Rest as needed. Do not: ? Participate in activities in which you could fall or become injured. ? Drive. ? Use heavy machinery. ? Drink alcohol. ? Take sleeping pills or medicines that cause drowsiness. ? Make important decisions or sign legal documents. ? Take care of children on your own. Eating and drinking Follow the diet that is recommended by your health care provider. If you vomit, drink water, juice, or soup when you can drink without vomiting. Make sure you have little or no nausea before eating solid foods. General instructions Take yijy-azd-fvkbbwn and prescription medicines only as told by your health care provider. If you have sleep apnea, surgery and certain medicines can increase your risk for breathing problems. Follow instructions from your health care provider about wearing your sleep device: ? Anytime you are sleeping, including during daytime naps. ? While taking prescription pain medicines, sleeping medicines, or medicines that make you drowsy. If you smoke, do not smoke without supervision. Keep all follow-up visits as told by your health care provider. This is important. Contact a health care provider if: You keep feeling nauseous or you keep vomiting. You feel light-headed. You develop a rash. You have a fever. Get help right away if: You have trouble breathing. Summary For several hours after your procedure, you may feel sleepy and have poor judgment. Have a responsible adult stay with you for at least 24 hours or until you are awake and alert. This information is not intended to replace advice given to you by your health care provider. Make sure you discuss any questions you have with your health care provider. Document Released: 10/18/2016 Document Revised: 09/26/2018 Document Reviewed: 10/18/2016 [employer] Patient Education 2020 [employer]. Additional Information VACCINATE! IT SAVES LIVES! Members of the community who have not yet received the COVID-19 vaccine and would like to receive it can visit one of [facility] vaccine clinics. There are many vaccine clinic locations within the [facility]. For locations and available times, please visit https://gettheshot.coronavirus.[place].gov/. It is important to note that some COVID mobile vaccine clinics are held outdoors and may be canceled in rainy or stormy conditions. To learn more about pediatric vaccinations (ages 5-11), we invite you to visit the [facility] webpage. [email or web address]/[email or web address] learn more about the COVID-19 vaccine, we invite you to visit the CDC website for a list of frequently asked questions.https://www.cdc.gov/coronavirus/2019-ncov/vaccines/faq.html [facility] Patient Portal Access Instructions: Stay connected with your healthcare team and access your personal medical information anytime with the [facility] Patient Portal. Please follow the directions below to create your [facility] account: 1.Access the email account you provided upon registration to the hospital/physician office.2.Look for an invitation email from [facility].3.Open the email and access the invitation link: AcceptInvitation to [facility].4.Fill in the required wylie to create your account. To access your account, visit [email or web address]. Click the blue button labeled Access Patient Portal and then log in with the username and password that you created in the steps above. You will be able to view your test results, lab results, a summary of your visits, upcoming appointments and more. There is also a convenient messaging option where you can send secure messages to your p rovider. In addition, you will have the ability to download any documents or summaries to your computer and/or send the information securely to a physician. Remember that your healthcare information is confidential, so carefully consider who you will allowto register on the [facility] Patient Portal for access to your information. You can also access the [facility] Patient Portal on the [facility] kan. Simply click on Patient Portal and then log into your account. If you would like to receive a full copy of your medical records, please contact the [facility] Medical Records Department by calling [phone], Wednesday through Wednesday between 8 a.m. and 4:30 p.m. HOW TO SAFELY DISPOSE OF PRESCRIPTION MEDICATIONS Please use one of the following methods to safely dispose of your unused medications. 1.Use a drug disposal kit: the drug disposal pouch allows you to safely discard your old and unuseddrugs. Ask your nurse to give you one when you are discharged.2.Visit a local take-back location: Many local pharmacies and police departments have programs that collect old and unwanted prescriptiondrugs. Call your local pharmacy or go to http://[employer]Ahaali/9B7Yz8l to find one close to you.3.Make use of household items: Use cat litter or old coffee grounds to dispose medications if other options arenot available. Mix your drugs with these household products, seal them in an airtight container andthrow it into the garbage. Call [facility]: [phone] to be sure your drugs can be disposed of in this way. Some medicines may require a different approach.4.Never flush your medications down the toilet. IF YOU HAVE BEEN PRESCRIBED AN OPIOID FOR PAIN If you have been prescribed an opioid (such as hydrocodone, oxycodone or morphine), it is critical to understand the possible side effects and risks of opioid pain medications. Even when taken as directed, opioids can have several side effects including: Tolerance, meaning you might need to take more of a medication for the same pain relief. Nausea, vomiting and/or constipation. Sleepiness, dizziness, dry mouth, confusion, depression or itching. Physical dependence, meaning you have withdrawal symptoms when a medication is stopped, can develop within a few days. KNOW YOUR RESPONSIBILITIES It is important to know exactly how much and how often to take the opioid pain medications you are prescribed. Never take opioids in higher amounts or more often than prescribed. Do not combine opioids with alcohol or other drugs that cause drowsiness, such as benzodiazepines, also known as benzos, including diazepam and alprazolam, muscle relaxants or sleep aids. Never sell or share prescription opioids. This is illegal. Store opioids in a secure place and out of reach of others (including children, family, friends and visitors). The last page of this document has been signed and retained as a CHART COPY. Signatures Patient Education Materials Colon Polyps Colonoscopy, Adult, Care After Monitored Anesthesia Care, Care After Medication Leaflets My discharge plan and instructions have been reviewed and explained to me and I,KHOA CONNORS understand my current condition and have read and understand these discharge instructions. I have received a written copy of the plan/instructions. If I have questions, I am aware that I should contact my doctor. 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 Assessment Postanesthesia assessment Vitals: Vital signs from flowsheet : Vital Signs 05/24/2023 11:20 EST Heart Rate Monitored 86 bpm bpm Respiratory Rate - Anes 16 br/min br/min 05/24/2023 11:15 EST Heart Rate Monitored 84 bpm bpm Respiratory Rate - Anes 13 br/min br/min Systolic Blood Pressure Non-Invasive 113 mmHg mmHg Diastolic Blood Pressure Non-Invasive 71 mmHg mmHg 05/24/2023 11:10 EST Heart Rate Monitored 83 bpm bpm Respiratory Rate - Anes 0 br/min br/min Systolic Blood Pressure Non-Invasive 114 mmHg mmHg Diastolic Blood Pressure Non-Invasive 69 mmHg mmHg 05/24/2023 11:05 EST Heart Rate Monitored 82 bpm bpm Respiratory Rate - Anes 0 br/min br/min Systolic Blood Pressure Non-Invasive 121 mmHg mmHg Diastolic Blood Pressure Non-Invasive 75 mmHg mmHg 05/24/2023 11:00 EST Heart Rate Monitored 81 bpm bpm Respiratory Rate - Anes 5 br/min br/min Systolic Blood Pressure Non-Invasive 126 mmHg mmHg Diastolic Blood Pressure Non-Invasive 72 mmHg mmHg 05/24/2023 10:55 EST Heart Rate Monitored 80 bpm bpm Respiratory Rate - Anes 17 br/min br/min Systolic Blood Pressure Non-Invasive 127 mmHg mmHg Diastolic Blood Pressure Non-Invasive 77 mmHg mmHg 05/24/2023 10:50 EST Heart Rate Monitored 84 bpm bpm Respiratory Rate - Anes 24 br/min br/min Systolic Blood Pressure Non-Invasive 140 mmHg mmHg Diastolic Blood Pressure Non-Invasive 90 mmHg mmHg 05/24/2023 10:46 EST Systolic Blood Pressure Non-Invasive 131 mmHg mmHg Diastolic Blood Pressure Non-Invasive 82 mmHg mmHg 05/24/2023 10:45 EST Heart Rate Monitored 80 bpm bpm Respiratory Rate - Anes 22 br/min br/min 05/24/2023 10:44 EST Systolic Blood Pressure Non-Invasive 155 mmHg mmHg Diastolic Blood Pressure Non-Invasive 101 mmHg mmHg 05/24/2023 10:40 EST Heart Rate Monitored 79 bpm bpm Respiratory Rate - Anes 0 br/min br/min 05/24/2023 10:35 EST Respiratory Rate - Anes 0 br/min br/min 05/24/2023 10:12 EST Temperature Temporal Artery 36.8 DegC Apical Heart Rate 81 bpm Respiratory Rate 16 br/min Systolic Blood Pressure Non-Invasive 141 mmHg HI Diastolic Blood Pressure Non-Invasive 70 mmHg Blood Pressure Method Automatic Blood Pressure Location Left arm Blood Pressure Cuff Size Large , Measurements from flowsheet . Mental status: alert & oriented x 4. Respiratory function: respirations are non-labored. Respiratory support: none. CV function: Normal rate. Cardiovascular support: none. Pain. Nausea status: see nursing documentation of medications. Postoperative hydration status: within normal limits. Digitally Signed by DUSTY CABRERA on 05/24/2023 11:22 AM [facility]11-13-2023 Anesthesiology Consult note Patient: KHOA CONNORS Age: 62 years Sex: Male : 1960 Associated Diagnoses: None Author: DUSTY CABRERA Preoperative Information Time of last solid food intake: 05/24/2023 00:00:00 Time of last clear liquid intake: 05/24/2023 07:00:00 Anesthesia history Patient's history: negative. Family's history: negative. Health Status Allergies: Allergic Reactions (Selected) Severity Not Documented Latex- No reactions were documented., Allergies (1) ActiveReaction LatexNone Documented Current medications: (Selected) Inpatient Medications Ordered LR 1,000 mL: 50 mL/hr, Intravenous Documented Medications Documented FeroSul 325 mg (65 mg elemental iron) oral tablet: 325 mg, 1 tab(s), Oral, TID, 90 tab(s), 0 Refill(s) fluorouracil 5% topical cream: 1 kan, Topical, BID, 0 Refill(s), Medications (1) Active Scheduled: (0) Continuous: (1) Lactated Ringers 1,000 mL 1,000 mL, Intravenous, 50 mL/hr PRN: (0) Problem list: No qualifying data available Histories Past Medical History: No active or resolved past medical history items have been selected or recorded. Family History: No family history items have been selected or recorded. Procedure history: No active procedure history items have been selected or recorded. Social History Social & Psychosocial Habits No Data Available . Physical Examination Vital Signs 05/24/2023 10:45 EST Heart Rate Monitored 80 bpm bpm Respiratory Rate - Anes 22 br/min br/min 05/24/2023 10:44 EST Systolic Blood Pressure Non-Invasive 155 mmHg mmHg Diastolic Blood Pressure Non-Invasive 101 mmHg mmHg 05/24/2023 10:40 EST Heart Rate Monitored 79 bpm bpm Respiratory Rate - Anes 0 br/min br/min 05/24/2023 10:35 EST Respiratory Rate - Anes 0 br/min br/min 05/24/2023 10:12 EST Temperature Temporal Artery 36.8 DegC Apical Heart Rate 81 bpm Respiratory Rate 16 br/min Systolic Blood Pressure Non-Invasive 141 mmHg HI Diastolic Blood Pressure Non-Invasive 70 mmHg Blood Pressure Method Automatic Blood Pressure Location Left arm Blood Pressure Cuff Size Large Vital Signs(last 24 hrs) Last Charted Heart Rate [id number] bpm (MAY 24 10:45) Resp Rate 16 br/min (MAY 24 10:12) [id number] mmHg (MAY 24 10:44) DNC648 mmHg (MAY 24 10:44) BMI40.38 (MAY 24 10:12) Measurements from flowsheet : Measurements 05/24/2023 10:12 EST Height 195.6 cm Admission Weight 154.5 kg Weight Method Stated [place] Body Weight 89.12 kg BSA Admission 2.8 Body Mass Index 40.38 kg/m2 Pain assessment: Pain Assessment 05/24/2023 10:12 EST Primary Pain Intensity 0 Pain Scale Type 0-10 Pain scale . General: Alert and oriented. Airway: Normal temporomandibular joint mobility, Normal mouth, Normal neck range of motion. Mallampati classification: III (soft palate, base of uvula visible). Dentition Evaluation: Denies loose/chipped teeth. Respiratory: Respirations are non-labored. Cardiovascular: Normal rate. Neurologic: Alert, Oriented. Review / Management Results review: No qualifying data available , Lab results 05/24/2023 10:49 EST SN - HI - Medication simethicone 40 mg/0.6 mL Liquid 30mL SN - HI - Route of Administration Endoscopic SN - HI - By (Single) SN - HI - By (Single) SN - HI - Time Administered 05/24/2023 10:49 05/24/2023 10:46 EST lidocaine 60 mg mg propofol 150 mg mg 05/24/2023 10:45 EST Heart Rate Monitored 80 bpm bpm Respiratory Rate - Anes 22 br/min br/min Oxygen Saturation 95.5 % % 05/24/2023 10:44 EST Systolic Blood Pressure Non-Invasive 155 mmHg mmHg Diastolic Blood Pressure Non-Invasive 101 mmHg mmHg 05/24/2023 10:42 EST SN - Proc - Anesthesia Type MAC SN - Proc - EBL 0 mL SN - Proc - Actual Procedure COLONOSCOPY WITH ARGON PLASMA COAGULATION 05/24/2023 10:41 EST SN - PP - Body Position Lateral Right Side-up Standard Intra-op 05/24/2023 10:41 EST SN - GCD - ASA Class 3 SN - GCD - Post-operative Diagnosis HISTORY SESSILE COLON POLYP SN - GCD - Case Level OPD Level 3 05/24/2023 10:40 EST SN - CTm - Anesthesia Start Time Anesthesia Start 05/24/2023 10:40 EST Heart Rate Monitored 79 bpm bpm Respiratory Rate - Anes 0 br/min br/min [place] History and Physical 05/24/2023 10:35 EST Respiratory Rate - Anes 0 br/min br/min 05/24/2023 10:34 EST SN - CAt - Case Attendee SN - CAt - Case Attendee SN - CAt - Case Attendee SN - CAt - Case Attendee SN - CAt - Case Attendee SN - CAt - Case Attendee SN - CAt - Case Attendee SN - CAt - Case Attendee SN - CAt - Role Performed Primary Surgeon SN - CAt - Role Performed Retail District Manager 1 SN - CAt - Role Performed Metal Engineering Process Worker SN - CAt - Role Performed LAWN MOWER REPAIRER 05/24/2023 10:24 EST Lactated Ringers Injection Begin Bag 1,000 mL mL 05/24/2023 10:17 EST Urinary Elimination Voiding, no difficulties Allergies Yes Colon Prep Results Excellent Consent Form Signed Yes Patient Dressed In Hospital gown History & Physical Update On Chart Yes History & Physical On Chart Yes Bowel Prep Completed Yes Belongings At Bedside Pants, Shirt, Shoes, Socks, Undergarments, Walker Allergy Band on and Verified Yes Patient ID Band on and Verified Yes Implants Verified Yes Pacemaker/AICD Verified Yes Site Verified by Patient/Family Yes Anesthesia Consent Signed Yes Last Fluid Intake 05/24/2023 7:30 Last Food Intake 05/23/2023 9:00 05/24/2023 10:12 EST Designated Person #1 We May Share PHI [place] [phone] Designated Person #1 Relationship Spouse Height 195.6 cm Admission Weight 154.5 kg Weight Method Stated [place] Body Weight 89.12 kg BSA Admission 2.8 Body Mass Index 40.38 kg/m2 Temperature Temporal Artery 36.8 DegC Apical Heart Rate 81 bpm Respiratory Rate 16 br/min Systolic Blood Pressure Non-Invasive 141 mmHg HI Diastolic Blood Pressure Non-Invasive 70 mmHg Blood Pressure Method Automatic Blood Pressure Location Left arm Blood Pressure Cuff Size Large Primary Pain Intensity 0 Pain Scale Type 0-10 Pain scale Oxygen Saturation 96 % Status N/A Continuous IV Infusions LR Hand Right 05/24/2023 22 gauge Peripheral IV Activity: Insert new site Peripheral IV Dressing Condition: Clean, Dry, Intact Peripheral IV Dressing Activity: Applied, Transparent dressing Peripheral IV Line Status/Patency: Flushes easily, Continuous infusion Peripheral IV Site Condition: No complications Peripheral IV Equipment: Extension set Sensory Deficits None Infectious Disease Symptoms Patient states no symptoms Infectious Disease Recent Exposure No Alcohol and Drug Use No Employee of Institutional Living No Health Care Employee No History of Exposure to TB No History of Positive Chest X-Ray for TB No History of Positive TB Skin Test No Homeless No Known Immunosuppression No Recent Immigrant No Resident of Institutional Living No Bloody Sputum No Fatigue No Fever No Loss of Appetite No Night Sweats No Persistent Cough > 3 Weeks No Weight Loss No Arrival Mode Ambulatory GI Prep Sutab GI Prep Completed Yes GI Prep Results Yellow, Clear Barriers to Learning None evident Teaching Method Explanation, Printed materials Preferred Spoken Language Danish Preferred Written Language Danish Information Given by Patient Patient's Current Physicians Natty Aldridge Discharge To, Anticipated Home independently Activity Status ADL Awake Standard Safety ID band on, Allergy Band on, Call device within reach, Bed in low position, Wheels locked, Upper/Half-Length side-rails up, Safety level maintained Prev Test Positive/Diagnosis w/COVID-19 No Current Quarantine/Isolated any Illness No Any Contact with Sick Animals/Birds No Traveled Anywhere in Last 30 Days No N/A Personal Devices, Patient Valuables None Admission Note-Nursing Procedure/Therapy Intake . Assessment and Plan [place] [employer] Anesthesi[employer] (ASA) physical status classification: Class III. Anesthetic Preoperative Plan Anesthetic technique: MAC. Informed consent: signed by patient. Digitally Signed by DUSTY CABRERA on 05/24/2023 10:55 AM [facility]11-13-2023 Note [place] ADMISSION HISTORY AND PHYSICIAL CHIEF COMPLAINT: HISTORY OF PRESENT ILLNESS: REVIEW OF SYSTEMS: ACTIVE PROBLEMS: No qualifying data available for Problems MEDICATIONS: Active Inpt Meds: None Active PRN Meds: None One Time Meds: None Active IV Meds: Lactated Ringers Infusion 1,000 mL (LR 1,000 mL) Start: 05/24/23 10:11:00 EST, Rate: 50 mL/hr, 05/24/23 10:11:00 EST ALLERGIES: (1) Latex FAMILY HISTORY: SOCIAL HISTORY: PHYSICAL EXAM: VITALS: [id number](kg) 05/24 10:1236.8--163875--85/82668.5 24 Hr Tmax: 36.8 at 05/24 10:12 36 Hr Tmax: 36.8 at 05/24 10:12 Vital Signs are the last 5 in the past 48 hours. Weights display the last 5 within 7 days. Initial Wt: 05/24 154.5 kg 340 lb Current Wt: 05/24 154.5 kg 340 lb GENERAL: HEENT: CARDIOVASCULAR: RESPIRATORY: ABDOMEN: EXREMETIES: NEUROLOGICAL: PSYCHIATRIC: LABS: No 36hr Lab Data DIAGNOSTICS: IMPRESSION: PLAN: History and Physical Update I have examined the patient; reviewed the H&P and there are no changes to the H&P unless noted below. Digitally Signed by ALFA MASON MD on 05/24/2023 10:45 AM [facility]10-31-2023 NoteHNO ID: [id number] Author: Meri Vieira V, MD Service: ? Author Type: Physician Type: Progress Notes Filed: 05/11/2023 11:20 AM Note Text: PROGRESS NOTE: Parts of the documentation for this note were completed by Lyndsay Garcia Ma for Meri Vieira MD. May 11, 2023 9:49 AM. Khoa Connors . is a 62 year old male here for: Chief Complaint: Skin Check (arms, face and neck only) arms, face and neck only History of Present Ilness: Location: Face, arms and neck Duration: years Symptoms (growing, itching, bleeding, tender): itching Current treatment: Skin check Past treatments: As above Narrative/Interval history: Spots on face and neck. Declined full body exam. Pertinent Past Medical History: History of melanoma? No History of non melanoma skin cancer? No History of atypical nevi? No History of blistering sunburns? Yes History of tanning bed use? No History of organ transplantation? No History of immunosuppression/exposure to radiation? 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 Pertinent Family Medical History: History of melanoma? No Pertinent Social History: Current Smoker? No Other: : N/A : N/A Pacemaker/Defibrillator: No Aspirin/anticoagulant use: No History of valve replacement: No History of joint replacement: No Review of Systems: Constitutional: - Fever: No, chills: No, night sweats: No, cough: No, muscle aches: No, unintentional weight loss: No. Skin: No other skin complaints except as noted in HPI. Physical Exam: WD, WN, NAD. Normal mood and affect. Exam included: Ears Face Neck R arm L arm All normal except: - Right cheek and right lateral neck with scaly pink rough papule(s) - Face, UE with warty brown-hebert stuck-on papules - Face, UE with scattered orange-brown macules in sun-exposed distribution - Neck with pedunculated skin-colored to hyperpigmented papule(s) Assessment and Plan: 1. Actinic keratoses - Discussed role of cryotherapy. - Start Fluorouracil (EFUDEX) 5 % cream; Apply a thin layer to spots on right cheek and right neck once a day x4 weeks. 2. Seborrheic keratoses - Reassurance, education. 3. Lentigines - ABCDEs of melanoma reviewed. Self-surveillance, sun protection, and sunscreen of at least SPF 30 stressed. 4. Acrochordon - Reassurance, education. Labs/Imaging reviewed: No Prior pathology reviewed: No Outside records reviewed: No External notes from each unique source reviewed: No Procedures: N/A Medical Decision Making: Problems: Low: 2+ self-limited or minor problems Moderate: 1+ chronic illnesses with change Risk: Low: Low risk from testing/treatment Moderate: Drug management Medical Decision Making Level: 4 - Moderate Return in 6 weeks (on 06/22/2023). or sooner if concerns/questions. Medications / Allergies / Immunizations: has a current medication list which includes the following prescription(s): fluorouracil, tamsulosin, ferrous sulfate, ketorolac, prednisolone acetate, upijaxaa-[id number]-sfzuivbfgsizc, atropine, ibuprofen, aspirin, atorvastatin, cyanocobalamin, gabapentin, lisinopril, metformin, cholecalciferol (vitamin d3), and guaifenesin. ALLERGIES Allergen Reactions Gabapentin Mental Status Change Pt also had hallucinations Latex I agree with the Chief Complaint, ROS, and Past Histories independently gathered by the clinical family support worker and the remaining scribed note accurately describes my personal service to the patient. [facility]ira [facility] of Present illness Narrative* Meri Vieira V, MD - 05/11/2023 9:47 AM EDT PROGRESS NOTE: Parts of the documentation for this note were completed by Lyndsay Garcia Ma for Meri Vieira MD. May 11, 2023 9:49 AM. Khoa Connors is a 62 year old male here for: Chief Complaint: Skin Check (arms, face and neck only) arms, face and neck only History of Present Ilness: Location: Face, arms and neck Duration: years Symptoms (growing, itching, bleeding, tender): itching Current treatment: Skin check Past treatments: As above Narrative/Interval history: Spots on face and neck. Declined full body exam. Pertinent Past Medical History: History of melanoma? No History of non melanoma skin cancer? No History of atypical nevi? No History of blistering sunburns? Yes History of tanning bed use? No History of organ transplantation? No History of immunosuppression/exposure to radiation? No He has a past medical history of Nerve compression, Nerve damage, Retinal detachment, 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, and 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 edema, without long-term current use of insulin (HC C). Pertinent Family Medical History: History of melanoma? No Pertinent Social History: Current Smoker? No Other: : N/A : N/A Pacemaker/Defibrillator: No Aspirin/anticoagulant use: No History of valve replacement: No History of joint replacement: No Review of Systems: Constitutional: - Fever: No, chills: No, night sweats: No, cough: No, muscle aches: No, unintentional weight loss: No. Skin: No other skin complaints except as noted in HPI. Physical Exam: WD, WN, NAD. Normal mood and affect. Exam included: Ears Face Neck R arm L arm All normal except: - Right cheek and right lateral neck with scaly pink rough papule(s) - Face, UE with warty brown-hebert stuck-on papules - Face, UE with scattered orange-brown macules in sun-exposed distribution - Neck with pedunculated skin-colored to hyperpigmented papule(s) Assessment and Plan: 1. Actinic keratoses - Discussed role of cryotherapy. - Start Fluorouracil (EFUDEX) 5 % cream; Apply a thin layer to spots on right cheek and right neck once a day x4 weeks. 2. Seborrheic keratoses - Reassurance, education. 3. Lentigines - ABCDEs of melanoma reviewed. Self-surveillance, sun protection, and sunscreen of at least SPF 30 stressed. 4. Acrochordon - Reassurance, education. Labs/Imaging reviewed: No Prior pathology reviewed: No Outside records reviewed: No External notes from each unique source reviewed: No Procedures: N/A Medical Decision Making: Problems: Low: 2+ self-limited or minor problems Moderate: 1+ chronic illnesses with change Risk: Low: Low risk from testing/treatment Moderate: Drug management Medical Decision Making Level: 4 - Moderate Return in 6 weeks (on 06/22/2023). or sooner if concerns/questions. Medications / Allergies / Immunizations: has a current medication list which includes the following prescription(s): fluorouracil, tamsulosin, ferrous sulfate, ketorolac, prednisolone acetate, kllvtqnz-yuoexcswo-kzicekorcbpzr, atropine, ibuprofen, aspirin, atorvastatin, cyanocobalamin, gabapentin, lisinopril, metformin, cholecalciferol (vitamin d3), and guaifenesin. ALLERGIES Allergen Reactions Gabapentin Mental Status Change Pt also had hallucinations Latex I agree with the Chief Complaint, ROS, and Past Histories independently gathered by the clinical family support worker and the remaining scribed note accurately describes my personal service to the patient. Meri Vieira MD Dermatology documented [facility] encounter[facility]23 NoteHNO ID: [id number] Author: Wilmer Canales MD, PhD Service: ? Author Type: Physician Type: Progress Notes Filed: 04/01/2023 2:31 PM Note Text: Previously seen by Dr. Kim s/p SB/PPV/EL/AFx/C3F8 for RRD with multiple tears, left eye 07/16/21 - Pedro/Judy - OCT mac wnl ou, great foveal contour OS 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 edema, no insulin -his A1C fluctuates, he states that it has been under 6 recently but was previously in the - Stressed blood pressure and blood sugar control and close follow-up with PCP/shale miner blasting -stressed importance of following up with retina and getting dilated exam due to possible progression of diabetic retinopathy Lattice degen OU - RD warnings Epiretinal membrane left eye -will monitor/observe Posterior chamber intraocular lens (PCIOL) left eye (03/24/22 Mikie) -now with posterior capsular opacity (PCO) -s/p YAG left eye ([facility]) -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 Sanders Dry eye both eyes -rec artificial tears and warm compresses Plan: Rec observation today Okay to get new refraction Return in 4 mo for full exam I have confirmed and edited as necessary the relevant ophthalmic history, ROS, and the neuro exam findings as obtained by others. I have seen and examined this patient. I have discussed the case and the management of this patient's care with the Resident/Fellow, if applicable. I also have reviewed and agree with the assessment and plan as stated above and agree with all of its relevant components. Wilmer Canales [facility]06-15-2023 NoteHNO ID: [id number] Author: Wilmer Canales MD, PhD Service: ? Author Type: Physician Type: Progress Notes Filed: 12/24/2022 4:04 PM Note Text: Previously seen by Dr. Kim s/p SB/PPV/EL/AFx/C3F8 for RRD with multiple tears, left eye 1/5/22 - Mammo/[place] - OCT mac wnl ou, great foveal contour OS 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 edema, with long-term current use of insulin (HCC) -his A1C fluctuates, he states that it has been under 6 recently but was previously in the 9s - Stressed blood pressure and blood sugar control and close follow-up with PCP/shale miner blasting Amber more OU - RD warnings Epiretinal membrane left eye -will monitor/observe Posterior chamber intraocular lens (PCIOL) left eye (03/24/22 Mikie) -now with posterior capsular opacity (PCO) -s/p YAG left eye (Mikie) -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 Sanders Dry eye both eyes -rec artificial tears and warm compresses Plan: Tapered off Predforte himself IRF could be due to Diabetic macular edema, explained this to patient Return in 3 mo for full exam I have confirmed and edited as necessary the relevant ophthalmic history, ROS, and the neuro exam findings as obtained by others. I have seen and examined this patient. I have discussed the case and the management of this patient's care with the Resident/Fellow, if applicable. I also have reviewed and agree with the assessment and plan as stated above and agree with all of its relevant components. Wilmer Canales [facility]06-15-2023 History of Present illness Narrative* Wilmer Canales MD, PhD - 12/24/2022 2:45 PM EDT Previously seen by Dr. Kim s/p SB/PPV/EL/AFx/C3F8 for RRD with multiple tears, left eye 07/16/21 - Mammo/[place] - OCT mac wnl ou, great foveal contour OS 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 edema, with long-term current use of insulin (HCC) -his A1C fluctuates, he states that it has been under 6 recently but was previously in the 9s - Stressed blood pressure and blood sugar control and close follow-up with PCP/shale miner blasting Amber more OU - RD warnings Epiretinal membrane left eye -will monitor/observe Posterior chamber intraocular lens (PCIOL) left eye (03/24/22 Mikie) -now with posterior capsular opacity (PCO) -s/p YAG left eye (Mikie) -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 Sanders Dry eye both eyes -rec artificial tears and warm compresses Plan: Tapered off Predforte himself IRF could be due to Diabetic macular edema, explained this to patient Return in 3 mo for full exam I have confirmed and edited as necessary the relevant ophthalmic history, ROS, and the neuro exam findings as obtained by others. I have seen and examined this patient. I have discussed the case and the management of this patient's care with the Resident/Fellow, if applicable. I also have reviewed and agree with the assessment and plan as stated above and agree withall of its relevant components. Wilmer Canales MD documented in this encounterFire[facility]05-04-2023 NoteHNO ID: [id number] Author: Wilmer Canales MD, PhD Service: ? Author Type: Physician Type: Progress Notes Filed: 11/12/2022 11:24 AM Note Text: Previously seen by Dr. Kim s/p SB/PPV/EL/AFx/C3F8 for RRD with multiple tears, left eye 07/16/21 - Yolanda - OCT mac wnl ou, great foveal contour OS 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 edema, with long-term current use of insulin (HCC) -his A1C fluctuates, he states that it has been under 6 recently but was previously in the 9's - Stressed blood pressure and blood sugar control and close follow-up with PCP/shale miner blasting -not improving with steroid drops, discussed starting kaia left eye -patient decides to observe for now Lattice degen OU - RD warnings Epiretinal membrane left eye -will monitor/observe Posterior chamber intraocular lens (PCIOL) left eye (03/24/22 Mikie) -now with posterior capsular opacity (PCO) -s/p YAG left eye (Miike) -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 Sanders Dry eye both eyes -rec artificial tears and warm compresses Plan: Predforte/ketorolac to four times a day with residual IRF, worsened Bothered mostly by lights after cataract surgery, needs sunglasses all the time Trace cell left eye today on exam Drops not having effect on edema, taper off IRF could be due to Diabetic macular edema, explained this to patient Return in 6 wks for full exam I have confirmed and edited as necessary the relevant ophthalmic history, ROS, and the neuro exam findings as obtained by others. I have seen and examined this patient. I have discussed the case and the management of this patient's care with the Resident/Fellow, if applicable. I also have reviewed and agree with the assessment and plan as stated above and agree with all of its relevant components. Wilmer Canales [facility]05-04-2023 Instructions* Patient Instructions* Wilmer Canales MD, PhD - 11/12/2022 11:23 AM EDT Decrease Predforte to 1 drop 3 times a day for 1 week then 1 drop 2 times a day for 1 week then 1 drop 1 time a day for 1 week then STOP - Use artificial tears in each eye at least 4 times per day. - Do not use visine, cleareyes or any other drops that say gets the red out or redness reliever these drops contain a chemical that can actually make the eyes more irritated and if used more thana few drops a week can actually make the eye redder than normal - You can use regular artificial tear drops up to four times a day, if you need to use them more than four times a day you must use a preservative free eye drop as the preservative in the eye drop can start to irritate the eye if used more than four times a day - Twice a day, heat your eyelids with a heat pack for 15 minutes and wash your eyelids with a No Tears formulation shampoo. After removing the heat, clean and massage your upper and lower eyelids at the base of your eyelashes starting from the nasal side of your eyelid moving out toward your scientology. Use a baby shampoo (any No Tears formulation) diluted with water. Alternatively you can use [id number] cleaning formulation called Sterilid or Ocusoft lid scrubs. Make this treatment part of your daily routine. This treatment will not work unless you keep up with it! TheraPearl Eye Mask ([employer]) can be used to provide sustained heat to the eyelids. Usually you will feel worse for the first 2 weeks and then it will start to improve. RECOMMENDED ARTIFICIAL TEARS Preservative-Free Artificial Tears (in single-dose droperettes) can use as often as you want: Systane (preservative-free vials) Systane Ultra Preservative-Free Refresh Optive Sensitive Refresh Optive Advanced Preservative-Free Refresh Plus TheraTears Preservative-Free Soothe Preservative-Free Tears Naturale Free TheraTears Liquid Gel (thicker) Refresh Celluvisc (thicker) Refresh Relieva (comes in a bottle but is also preservative free due to the special lid) Preserved Artificial Tears (in bottles) do not use more than 4 times a day: Refresh Optive Advanced Refresh Optive Refresh Tears Systane Ultra Systane Balance Tears Naturale II Tears Naturale Forte Soothe Hydration Genteal Refresh Liquigel (thicker) Ointments and gels (in tubes): Genteal Gel Severe Dry Eye Relief Genteal PM Ointment Refresh PM Ointment Systane Nightime Refresh Lacrilube Thinner drops blur vision less but do not last as long. Thicker drops, ointments and gels last longer, but will blur vision more. WARM COMPRESSES: PURPOSE: When the oil glands (meibomian glands) in your eyelids are inflamed or obstructed, research has shown that heat applied to the glands in the form of a warm compress (using moist heat) helps to improve gland flow and often improves the symptoms of dry eye. HOW TO PERFORM: There are a number of ways to achieve this goal, including periodic commercial treatments (e.g. LipiFlow) as well as DIY solutions which are generally equally effective (and much lessexpensive). I recommend using a re-usable, microwaveable eye mask or sinus pillow (examples below), heated to a warm-hot temperature (but not hot enough to be painful or burn the skin), applied directly to the closed eyelids continuously for 8-10 minutes twice a day. The ideal frequency varies based on patient needs and severity, but this is a good place to start. Moist, wet heat is better than dry heat. EXAMPLES: Thermalon Dry Eye Compress ([employer], approx $10) [employer] Anti-Stress Microwavable Sinus Pillow ([employer], approx $15) RESOURCES: http://www.51hejia.com/encyclopedia/hotcompresses.html This website contains patient information regarding warm compresses and includes a recipe to makeyour own using uncooked rice and a nylon stocking. documented in this encounterFirelands [facility] Center05-04-2023 History of Present illness Narrative* Wilmer Canales MD, PhD - 11/12/2022 10:55 AM EDT Previously seen by Dr. Kim s/p SB/PPV/EL/AFx/C3F8 for RRD with multiple tears, left eye 07/16/21 - Mammo/Judy - OCT mac wnl ou, great foveal contour OS 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 edema, with long-term current use of insulin (HCC) -his A1C fluctuates, he states that it has been under 6 recently but was previously in the 9's - Stressed blood pressure and blood sugar control and close follow-up with PCP/shale miner blasting -not improving with steroid drops, discussed starting kaia left eye -patient decides to observe for now Lattice degen OU - RD warnings Epiretinal membrane left eye -will monitor/observe Posterior chamber intraocular lens (PCIOL) left eye (03/24/22 Mikie) -now with posterior capsular opacity (PCO) -s/p YAG left eye (Mikie) -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 Sanders Dry eye both eyes -rec artificial tears and warm compresses Plan: Predforte/ketorolac to four times a day with residual IRF, worsened Bothered mostly by lights after cataract surgery, needs sunglasses all the time Trace cell left eye today on exam Drops not having effect on edema, taper off IRF could be due to Diabetic macular edema, explained this to patient Return in 6 wks for full exam I have confirmed and edited as necessary the relevant ophthalmic history, ROS, and the neuro exam findings as obtained by others. I have seen and examined this patient. I have discussed the case and the management of this patient's care with the Resident/Fellow, if applicable. I also have reviewed and agree with the assessment and plan as stated above and agree withall of its relevant components. Wilmer Canales MD documented in this encounterFirelands Regional Medical Center03-16-2023 NoteHNO ID: [id number] Author: Wilmer Canales MD, PhD Service: ? Author Type: Physician Type: Progress Notes Filed: 09/24/2022 12:58 PM Note Text: Previously seen by Dr. Kim s/p SB/PPV/EL/AFx/C3F8 for RRD with multiple tears, left eye 07/16/21 - Arleeno/Judy - OCT mac wnl ou, great foveal contour OS 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 edema, with long-term current use of insulin (HCC) - Patient unknown of dx but clear on exam and recent elevated A1cs (was 9s at 1 point) - Hba1c = Hemoglobin A1C (%) Date Value 07/17/2021 8.4 - Stressed blood pressure and blood sugar control and close follow-up with PCP/shale miner blasting Lattice degen OU - RD warnings Epiretinal membrane left eye -will monitor/observe Posterior chamber intraocular lens (PCIOL) left eye (03/24/22 Mikie) -now with posterior capsular opacity (PCO) -s/p YAG left eye (Mikie) -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 Sanders Plan: Increase Predforte/ketorolac to four times a day Also likely has refractive error Had discussion about steroid drops, RE: he needs to be monitored for high intraocular pressure Stressed importance of f/u Return in 7 wks I have confirmed and edited as necessary the relevant ophthalmic history, ROS, and the neuro exam findings as obtained by others. I have seen and examined this patient. I have discussed the case and the management of this patient's care with the Resident/Fellow, if applicable. I also have reviewed and agree with the assessment and plan as stated above and agree with all of its relevant components. Wilmer Canales [facility]03-16-2023 Instructions* Patient Instructions* Wilmer Canales MD, PhD - 09/24/2022 12:56 PM EDT Increase ketorolac to four times a day left eye Increase Predforte to four times a day left eye Call [phone] with any questions documented in this encounterFirelands Regional Medical Center03-16-2023 History of Present illness Narrative* Wilmer Canales MD, PhD - 09/24/2022 12:46 PM EDT Previously seen by Dr. Kim s/p SB/PPV/EL/AFx/C3F8 for RRD with multiple tears, left eye 07/16/21 - Arleeno/Judy - OCT mac wnl ou, great foveal contour OS 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 edema, with long-term current use of insulin (HCC) - Patient unknown of dx but clear on exam and recent elevated A1cs (was 9s at 1 point) - Hba1c = Hemoglobin A1C (%) Date Value 07/17/2021 8.4 - Stressed blood pressure and blood sugar control and close follow-up with PCP/shale miner blasting Lattice degen OU - RD warnings Epiretinal membrane left eye -will monitor/observe Posterior chamber intraocular lens (PCIOL) left eye (03/24/22 Mikie) -now with posterior capsular opacity (PCO) -s/p YAG left eye (Mikie) -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 Sanders Plan: Increase Predforte/ketorolac to four times a day Also likely has refractive error Had discussion about steroid drops, RE: he needs to be monitored for high intraocular pressure Stressed importance of f/u Return in 7 wks I have confirmed and edited as necessary the relevant ophthalmic history, ROS, and the neuro exam findings as obtained by others. I have seen and examined this patient. I have discussed the case and the management of this patient's care with the Resident/Fellow, if applicable. I also have reviewed and agree with the assessment and plan as stated above and agree withall of its relevant components. Wilmer Canales MD documented in this encounterFirelands Regional Medical Center02-22-2023 NoteHNO ID: [id number] Author: Bradly Sanders MD Service: ? Author Type: Physician Type: Progress Notes Filed: 09/02/2022 5:14 PM Note Text: Assessment and Plan 1. 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 edema, without long-term current use of insulin (HCC) -followed by Dr. Canales 2. Lattice degeneration of both retinas 3. 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 Return to clinic as soon as possible if increased floaters, flashes, or shadows. -asking for YAG capsulotomy left eye - good opening -prednisolone twice a day left eye -precautions -follow-up Dr. Canales. Me as needed I have confirmed and edited as necessary the relevant ophthalmic history, ROS, and the neuro exam findings as obtained by others. I have seen and examined Khoa Connors Jr.. I have discussed the case and the management of this patient's care with the Resident/Fellow, if applicable. I also have reviewed and agree with the assessment and plan as stated above and agree with all of its relevant components. Bradly Sanders [facility]02-22-2023 History of Present illness Narrative* Bradly Sanders MD - 09/02/2022 5:08 PM EST Assessment and Plan 1. 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 edema, without long-term current use of insulin (HCC) -followed by Dr. Canales 2. Lattice degeneration of both retinas 3. 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 Return to clinic as soon as possible if increased floaters, flashes, or shadows. -asking for YAG capsulotomy left eye - good opening -prednisolone twice a day left eye -precautions -follow-up Dr. Canales. Me as needed I have confirmed and edited as necessary the relevant ophthalmic history, ROS, and the neuro exam findings as obtained by others. I have seen and examined Khoa Connors Jr.. I have discussed the case and the management of this patient's care with the Resident/Fellow, if applicable. I also have reviewed and agree with the assessment and plan as stated above and agree withall of its relevant components. Bradly Sanders MD documented in this encounterFirelands Regional Medical Center02-07-2023 NoteHNO ID: [id number] Author: Bradly Sanders MD Service: ? Author Type: Physician Type: Progress Notes Filed: 08/18/2022 3:30 PM Note Text: Assessment and Plan 1. 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 edema, without long-term current use of insulin (HCC) -undiagnosed and untreated 2. Lattice degeneration of both retinas 3. 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 Return to clinic as soon as possible if increased floaters, flashes, or shadows. -asking for YAG capsulotomy left eye - risk, benefis, and alternatives reviewed and consent obtained -preformed with no complications -prednisolone twice a day left eye -precautions -follow-up Dr. Canales. Me as needed if decreased vision, increased flashes, ... I have confirmed and edited as necessary the relevant ophthalmic history, ROS, and the neuro exam findings as obtained by others. I have seen and examined Khoa Connors Jr.. I have discussed the case and the management of this patient's care with the Resident/Fellow, if applicable. I also have reviewed and agree with the assessment and plan as stated above and agree with all of its relevant components. Bradly Sanders, [facility]02-07-2023 History of Present illness Narrative* Bradly Sanders MD - 08/18/2022 3:12 PM EST Assessment and Plan 1. 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 edema, without long-term current use of insulin (HCC) -undiagnosed and untreated 2. Lattice degeneration of both retinas 3. 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 Return to clinic as soon as possible if increased floaters, flashes, or shadows. -asking for YAG capsulotomy left eye - risk, benefis, and alternatives reviewed and consent obtained -preformed with no complications -prednisolone twice a day left eye -precautions -follow-up Dr. Canales. Me as needed if decreased vision, increased flashes, ... I have confirmed and edited as necessary the relevant ophthalmic history, ROS, and the neuro exam findings as obtained by others. I have seen and examined Khoa Connors . I have discussed the case and the management of this patient's care with the Resident/Fellow, if applicable. I also have reviewed and agree with the assessment and plan as stated above and agree withall of its relevant components. Bradly Sanders MD documented in this encounterFirelands [facility] Medical Center02-07-2023 Instructions* Patient Instructions* Bradly Sanders MD - 08/18/2022 3:11 PM EST Images from the original note were not included. documented in this encounterFirelands Regional Medical Center01-19-2023 NoteHNO ID: [id number] Author: Wilmer Canales MD, PhD Service: ? Author Type: Physician Type: Progress Notes Filed: 07/30/2022 11:51 AM Note Text: Previously seen by Dr. Kim s/p SB/PPV/EL/AFx/C3F8 for RRD with multiple tears, left eye 07/16/21 - Mammo/Judy - OCT mac wnl ou, great foveal contour OS 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 edema, with long-term current use of insulin (HCC) - Patient unknown of dx but clear on exam and recent elevated A1cs (was 9s at 1 point) - Hba1c = Hemoglobin A1C (%) Date Value 07/17/2021 8.4 - Stressed blood pressure and blood sugar control and close follow-up with PCP/shale miner blasting Lattice degen OU - RD warnings Epiretinal membrane left eye -will monitor/observe Posterior chamber intraocular lens (PCIOL) left eye -mow with posterior capsular opacity (PCO) -03/24/[address] 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 Sanders Plan: Decrease Predforte /ketorolac 3-2 and hold here Rec YAG with Dr. Sanders Return with retina after YAG Had discussion about steroid drops, RE: he needs to be monitored for high intraocular pressure Stressed importance of f/u I have confirmed and edited as necessary the relevant ophthalmic history, ROS, and the neuro exam findings as obtained by others. I have seen and examined this patient. I have discussed the case and the management of this patient's care with the Resident/Fellow, if applicable. I also have reviewed and agree with the assessment and plan as stated above and agree with all of its relevant components. Wilmer Canales [facility]01-19-2023 Instructions* Patient Instructions* Wilmer Canales MD, PhD - 07/30/2022 11:44 AM EST Decrease Predforte /ketorolac to 1 drop 3 times a day for 1 week then 1 drop 2 times a day and hold here until you see Dr. Sanders documented in this encounterFirelands Regional Medical Center01-19-2023 History of Present illness Narrative* Wilmer Canales MD, PhD - 07/30/2022 10:36 AM EST Previously seen by Dr. Kim s/p SB/PPV/EL/AFx/C3F8 for RRD with multiple tears, left eye 07/16/21 - Mammo/Judy - OCT mac wnl ou, great foveal contour OS 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 edema, with long-term current use of insulin (HCC) - Patient unknown of dx but clear on exam and recent elevated A1cs (was 9s at 1 point) - Hba1c = Hemoglobin A1C (%) Date Value 07/17/2021 8.4 - Stressed blood pressure and blood sugar control and close follow-up with PCP/shale miner blasting Lattice degen OU - RD warnings Epiretinal membrane left eye -will monitor/observe Posterior chamber intraocular lens (PCIOL) left eye -mow with posterior capsular opacity (PCO) -03/24/[address] 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 Sanders Plan: Decrease Predforte /ketorolac 3-2 and hold here Rec YAG with Dr. Sanders Return with retina after YAG Had discussion about steroid drops, RE: he needs to be monitored for high intraocular pressure Stressed importance of f/u I have confirmed and edited as necessary the relevant ophthalmic history, ROS, and the neuro exam findings as obtained by others. I have seen and examined this patient. I have discussed the case and the management of this patient's care with the Resident/Fellow, if applicable. I also have reviewed and agree with the assessment and plan as stated above and agree withall of its relevant components. Wilmer Canales MD documented in this encounterFirelands [facility] Medical Center12-14-2022 Instructions* Patient Instructions* Bradly Sanders MD - 06/24/2022 11:31 AM EST Images from the original note were not included. Pa documented in this encounterFirelands Regional Medical Center12-14-2022 History of Present illness Narrative* Bradly Sanders MD - 06/24/2022 11:25 AM EST Assessment and Plan 1. 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 edema, without long-term current use of insulin (HCC) -undiagnosed and untreated 2. Lattice degeneration of both retinas 3. 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 Canales - heme / Diabetic macular edema cause of blurred vision left eye rather than cystoid macular edema?? -follow-up with me afterwards with refraction, OCT macula left eye / sooner as needed I have confirmed and edited as necessary the relevant ophthalmic history, ROS, and the neuro exam findings as obtained by others. I have seen and examined Khoaclaire Connors Jr.. I have discussed the case and the management of this patient's care with the Resident/Fellow, if applicable. I also have reviewed and agree with the assessment and plan as stated above and agree withall of its relevant components. Bradly Sanders MD documented in this encounterFirelands Regional Medical Center11-23-2022 Miscellaneous Notes* Telephone Encounter - Jackie Bacon - 06/03/2022 3:12 PM EST Pt called back to check if there was an answer since he had not heard from Dr. Sanders. I read the pt the response below. He voiced understanding that he was to continue both drops as noted below. * Telephone Encounter - Bradly Sanders MD - 06/03/2022 2:34 PM EST -prednisolone four times a day left eye -ketorolac four times a day left eye * Telephone Encounter - Helga Leyva - 06/03/2022 11:28 AM EST Patient called requesting to speak to clinical about medication/drops. Patient is calling to clarify what medication/drops he is to continue taking. documented in this encounterFirelands [facility]11-22-2022 History of Present illness Narrative* Bradly Sanders MD - 06/02/2022 4:18 PM EST Assessment and Plan 1. 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 edema, without long-term current use of insulin (HCC) -undiagnosed and untreated 2. Lattice degeneration of both retinas 3. 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 I have seen and examined Khoa Connors Jr.. I have discussed the case and the management of this patient's care with the Resident/Fellow, if applicable. I also have reviewed and agree with the assessment and plan as stated above and agree withall of its relevant components. Bradly Sanders MD documented in this encounterFirelands [facility] Center11-01-2022 Instructions* Patient Instructions* Bradly Sanders MD - 05/12/2022 3:58 PM EDT Images from the original note were not included. Pa documented in this encounterFirelands [facility] Medical Center11-01-2022 History of Present illness Narrative* Bradly Sanders MD - 05/12/2022 3:56 PM EDT Assessment and Plan 1. 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 edema, without long-term current use of insulin (HCC) -undiagnosed and untreated 2. Lattice degeneration of both retinas 3. 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 I have seen and examined Khoa Connors Jr.. I have discussed the case and the management of this patient's care with the Resident/Fellow, if applicable. I also have reviewed and agree with the assessment and plan as stated above and agree withall of its relevant components. Bradly Sanders MD documented in this [facility]10-26-2022 Miscellaneous Notes* Addendum Note - Bradly Sanders MD - 05/06/2022 2:17 PM EDTAddended by: BRADLY SANDERS on: 05/06/2022 02:17 PM Modules accepted: Orders documented in this [facility]10-26-2022 Instructions* Patient Instructions* Bradly Sanders MD - 05/06/2022 2:09 PM EDT -prednisolone (white or pink cap) four times a day left eye -ketorolac (stanford cap) four times a day left eye documented in this encounterFirelands Regional Medical Center10-26-2022 History of Present illness Narrative* Bradly Sanders MD - 05/06/2022 2:07 PM EDT Assessment and Plan 1. 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 edema, without long-term current use of insulin (HCC) -undiagnosed and untreated 2. Lattice degeneration of both retinas 3. 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 I have seen and examined Khoa Connors Jr.. I have discussed the case and the management of this patient's care with the Resident/Fellow, if applicable. I also have reviewed and agree with the assessment and plan as stated above and agree withall of its relevant components. Bradly Sanders MD documented in this encounterFirelands [facility] Center09-14-2022 Instructions* Patient Instructions* Bradly Sanders MD - 03/25/2022 1:53 PM EDT Images from the original note were not included. documented in this encounterFirelands Regional Medical Center09-14-2022 History of Present illness Narrative* Bradly Sanders MD - 03/25/2022 1:51 PM EDT Assessment and Plan 1. 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 edema, without long-term current use of insulin (HCC) -undiagnosed and untreated 2. Lattice degeneration of both retinas 3. 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 Combined forms of age-related cataract of both eyes -s/p cataract extraction with intraocular lens implantation left eye 03/24/22 -looks good Plan: -Continue blood sugar and blood pressure control -drops per protocol -precautions -follow-up 1 week / sooner as needed I have confirmed and edited as necessary the relevant ophthalmic history, ROS, and the neuro exam findings as obtained by others. I have seen and examined Khoa Connors Jr.. I have discussed the case and the management of this patient's care with the Resident/Fellow, if applicable. I also have reviewed and agree with the assessment and plan as stated above and agree withall of its relevant components. Bradly Sanders MD documented in this encounterFirelands [facility] Center09-13-2022 History of Past illness Narrative* Problem Noted Date Resolved Date Combined forms of age-related cataract of both e yes 03/24/2022 03/24/2022 Closed fracture of twelfth thoracic vertebra 11/07/2019 Fall 10/31/2019 11/07/2019 documented as of this encounter (statuses as of 03/25/2022) [facility] of Past illness Narrative* Problem Noted Date Resolved Date Combined forms of age-related cataract of both e yes 03/24/2022 03/24/2022 Closed fracture of twelfth thoracic vertebra 11/07/2019 Fall 10/31/2019 11/07/2019 documented as of this encounter (statuses as of 03/25/2022) [facility] of Past illness Narrative* Problem Noted Date Resolved Date Combined forms of age-related cataract of both e yes 03/24/2022 03/24/2022 Closed fracture of twelfth thoracic vertebra 11/07/2019 Fall 10/31/2019 11/07/2019 documented as of this encounter (statuses as of 03/30/2022) [address]13-2022 History of Past illness Narrative* Problem Noted Date Resolved Date Combined forms of age-related cataract of both e yes 03/24/2022 03/24/2022 Closed fracture of twelfth thoracic vertebra 11/07/2019 Fall 10/31/2019 11/07/2019 documented as of this encounter (statuses as of 03/30/2022) [address]13-2022 History of Past illness Narrative* Problem Noted Date Resolved Date Combined forms of age-related cataract of both e yes 03/24/2022 03/24/2022 Closed fracture of twelfth thoracic vertebra 11/07/2019 Fall 10/31/2019 11/07/2019 documented as of this encounter (statuses as of 05/06/2022) [address]13-2022 History of Past illness Narrative* Problem Noted Date Resolved Date Combined forms of age-related cataract of both e yes 03/24/2022 03/24/2022 Closed fracture of twelfth thoracic vertebra 11/07/2019 Fall 10/31/2019 11/07/2019 documented as of this encounter (statuses as of 05/12/2022) [address]13-2022 History of Past illness Narrative* Problem Noted Date Resolved Date Combined forms of age-related cataract of both e yes 03/24/2022 03/24/2022 Closed fracture of twelfth thoracic vertebra 11/07/2019 Fall 10/31/2019 11/07/2019 documented as of this encounter (statuses as of 06/02/2022) [address]13-2022 History of Past illness Narrative* Problem Noted Date Resolved Date Combined forms of age-related cataract of both e yes 03/24/2022 03/24/2022 Closed fracture of twelfth thoracic vertebra 11/07/2019 Fall 10/31/2019 11/07/2019 documented as of this encounter (statuses as of 06/07/2022) [address]13-2022 History of Past illness Narrative* Problem Noted Date Resolved Date Combined forms of age-related cataract of both e yes 03/24/2022 03/24/2022 Closed fracture of twelfth thoracic vertebra 11/07/2019 Fall 10/31/2019 11/07/2019 documented as of this encounter (statuses as of 06/24/2022) [address]13-2022 History of Past illness Narrative* Problem Noted Date Resolved Date Combined forms of age-related cataract of both e yes 03/24/2022 03/24/2022 Closed fracture of twelfth thoracic vertebra 11/07/2019 Fall 10/31/2019 11/07/2019 documented as of this encounter (statuses as of 07/30/2022) [address]13-2022 History of Past illness Narrative* Problem Noted Date Resolved Date Combined forms of age-related cataract of both e yes 03/24/2022 03/24/2022 Closed fracture of twelfth thoracic vertebra 11/07/2019 Fall 10/31/2019 11/07/2019 documented as of this encounter (statuses as of 08/19/2022) [address]13-2022 History of Past illness Narrative* Problem Noted Date Resolved Date Combined forms of age-related cataract of both e yes 03/24/2022 03/24/2022 Closed fracture of twelfth thoracic vertebra 11/07/2019 Fall 10/31/2019 11/07/2019 documented as of this encounter (statuses as of 09/03/2022) [address]13-2022 History of Past illness Narrative* Problem Noted Date Resolved Date Combined forms of age-related cataract of both e yes 03/24/2022 03/24/2022 Closed fracture of twelfth thoracic vertebra 11/07/2019 Fall 10/31/2019 11/07/2019 documented as of this encounter (statuses as of 09/24/2022) [address]13-2022 History of Past illness Narrative* Problem Noted Date Resolved Date Combined forms of age-related cataract of both e yes 03/24/2022 03/24/2022 Closed fracture of twelfth thoracic vertebra 11/07/2019 Fall 10/31/2019 11/07/2019 documented as of this encounter (statuses as of 11/12/2022) [place] [id number] History of Past illness Narrative* Problem Noted Date Resolved Date Combined forms of age-related cataract of both e yes 03/24/2022 03/24/2022 Closed fracture of twelfth thoracic vertebra 11/07/2019 Fall 10/31/2019 11/07/2019 documented as of this encounter (statuses as of 12/25/2022) [address]13-2022 History of Past illness Narrative* Problem Noted Date Diagnosed Date Resolved Date Combined forms of age-relate d cataract of both eyes 03/24/2022 03/24/2022 Closed fracture of twelfth thoracic vertebra 0 11/07/2019 Fall 10/31/2019 11/07/2019 documented as of this encounter (statuses as of 05/11/2023) [place] [address]13-2022 History of Past illness Narrative* Problem Noted Date Diagnosed Date Resolved Date Combined forms of age-relate d cataract of both eyes 03/24/2022 03/24/2022 Closed fracture of twelfth thoracic vertebra 0 11/07/2019 Fall 10/31/2019 11/07/2019 documented as of this encounter (statuses as of 06/24/2023) [facility] Note* Wendy Tapia RN - 03/24/2022 10:[address] Sanders told pt he would call in eye drops to [facility] in [place]. Prednisolone, Vigamox & Ketorolac eyedrops today. Pt states understanding of starting them in the am. * Wendy Tapia RN - 03/24/2022 7:29 AM EDT Pt ready for surgery. Needs H & P preop. No distress noted. Call light in reach documented in this encounterFirelands [facility] Medical Center09-13-2022 Miscellaneous Notes* Telephone Encounter - Kandy Medina - 03/24/2022 9:45 AM EDT Patient is requesting a later time if possible for his scheduled surgery with Dr. Sanders tomorrow. Please contact the patient to discuss surgery time options. Thank you. documented in this encounterFirelands Regional Medical Center09-13-2022 NoteHNO ID: [id number] Author: Wendy Tapia RN Service: ? Author Type: Registered Nurse Type: Nursing Progress Note Filed: 03/24/2022 7:30 AM Note Text: Pt ready for surgery. Needs H AND P preop. No distress noted. Call light in [facility]09-13-2022 Hospital Discharge instructions* Discharge Instr - Other Orders* Bradly Sanders MD - 03/24/2022 9:16 AM EDT Instructions After {OPHT CATARACT/CORNEA/COMBINED SURGERY:801038} Surgery It is very important to follow these instructions after your eye surgery to ensure its success. A responsible adult must drive you home after the surgery. You might feel well, but the medicines given during the surgery might affect you for several hours. Do not drive or operate machinery for the rest of the day. We recommend that a responsible adult stay with you for 24 hours after surgery. Eye Protection - You may wear your glasses during the day. Before you go to sleep, put on the protective shield without a cotton patch. Activity - You may use your eyes for activities such as reading, writing, and watching television as much as you choose. Your vision might be blurred, but you will not harm your operated eye by trying to use it. Ask about driving when you see your doctor at your follow up appointment. Avoid the following activities for 2 weeks after surgery: Heavy lifting (over 20 pounds) Swimming Strenuous exercise or activity Working in [place] places Activities that might injure your eye Daily hygiene - You may shower and wash your hair and face as usual, but DO NOT rub your operated eye. Try to avoid getting soap or water in your eyes. Pain management - Pain after eye surgery is not common. Most people do not need oral pain medicine.If you do have some eye pain or a headache, you may take acetaminophen unless there is some reason you cannot take this medication (i.e., liver disease, allergies, etc.). Follow the instructions on the bottle. Diet - If you feel sick to your stomach, drink only clear liquids. Clear liquids include clear broth, tea, strained fruit juices, strained vegetable soup, black coffee, plain gelatin, and vinnie calderon.Eat a regular meal when you do not feel sick. Do not drink alcoholic beverages for 24 hours after the surgery. Eye medications - If you have been prescribed or given eye drops and/or ointment, please bring them, this handout and any previous eye drops/ointments you have to your follow up appointment. Your eyemedications will be explained during your follow up appointment. How to give yourself eye drops or ointment Wash your hands with soap and warm water. Dry them with a clean towel. If you are putting in your own eye medicine, lie down or use a mirror. Ask someone to check that you are getting the medicine in your eye. Look up to the ceiling with both eyes. Pull the lower lid of your eye down with one hand. Hold the medicine bottle or tube in your other hand. (if necessary, rest part of your hand on your forehead to keep it steady). Place a drop of medicine or a small amount of ointment inside your lower lid. The tip of the medicine bottle or tube should not touch your eye. Close your eyes for a minute after putting in the medicine. If you are prescribed both eye drops and eye ointment, use the eye drops first. If you have more than one eye medicine to put in your eyes, wait about 5 minutes after the first medicine before putting the second medicine. Call your surgeon immediately if you experience: Increased or severe eye pain Bleeding from the eye Sudden decrease in vision or decreased ability to see light Discharge from the eye Any questions or problems Call your doctor immediately or go to the nearest emergency room if you experience: Nausea or vomiting that won't go away Chest pain Leg cramps A temperature above 101 F or 38.3 C Trouble breathing Contact {CATARACT SURGEONS CONTACT PHONE NUMBERS:[id number]} documented in this encounterFirelands [facility] Medical Center09-13-2022 Miscellaneous Notes* Operative Report - Bradly Sanders MD - 03/24/2022 8:13 AM EDT OPERATIVE/PROCEDURE REPORT OPHTHAMOLOGY LOG ID: [id number] SURGERY/PROCEDURE DATE: 03/24/2022 INCISION/PROCEDURE START TIME: 8:38 AM INCISION CLOSE/PROCEDURE END TIME: 9:07 AM SURGEON(S)/PROCEDURALIST(S) AND CURB SETTER(S): Surgeon(s) and Role: * Bradly Sanders MD - Primary PROCEDURE(S): Procedure(s) (LRB): PHACOEMULSIFICATION CATARACT IMPLANT INTRAOCULAR LENS W/O ENDOSCOPIC CYCLOPHOTOCOAGULATION (Left) OPHTHALMIC BIOMETRY BY PARTIAL COHERENCE INTERFEROMETRY W/INTRAOCULAR LENS POWER CALCULATION (Left) PREOPERATIVE DIAGNOSIS: Combined form of age-related cataract, Left eye. POST-OP/POST-PROCEDURE DIAGNOSIS: Same as Preop OPERATIVE INDICATIONS: blurred vision limiting activities of daily living (ADLs) ANESTHESIA: Monitored Anesthesia Care PROCEDURE DETAILS: The patient was transferred to the operating room where the eye was prepared anddraped in sterile fashion. An eyelid speculum was placed and a paracentesis was performed. Preservative-free lidocaine 1% and viscoelastic were injected into the anterior chamber. A keratome was usedto perform a clear corneal incision. Capsulorrhexis and hydrodissection were performed. The lens nucleus was removed with the phacoemulsification instrument. The residual cortex was removed with the irrigation/aspiration instrument. The capsular bag was filled with viscoelastic, and the above-notedintraocular lens was inserted into the capsular bag. The residual viscoelastic was removed with the irrigation/aspiration instrument. The anterior chamber was reformed with balanced salt solution andthe corneal wounds were hydrated. A water-tight corneal closure was achieve. No suture(s) were placed in the wound. Intracameral injection of antibiotic was performed. Topical steroid medication was applied to the operated eye and it was covered with a protective shield. The patient was transferredto the recovery room in stable condition. ESTIMATED BLOOD LOSS: Minimal unless noted here. SPECIMENS: * No specimens in log * IMPLANTABLE DEVICES: Implant Name Type Inv. Item Serial No. Processing Engineer Lot No. LRB No. Used Action LENS ACRYSOF ULTRASERT +14 DIOPTER ACRYLIC IOL 1 PIECE FOLDABLE UV BLUE - [id number] Intraocular Lens LENS ACRYSOF ULTRASERT +14 DIOPTER ACRYLIC IOL 1 PIECE FOLDABLE UV BLUE [id number] [employer] Left 1 Implanted Ocular Co-Morbidities: Yes Intra-operative Complications None I/primary surgeon/proceduralist performed the entire procedure. SIGNATURE: Bradly Sanders MD PATIENT NAME: Khoa Connors Jr. DATE: March 24, 2022 TIME: 9:16 AM PAGER/CONTACT #: [phone] documented in this encounterFirelands [facility] Center09-13-2022 History and physical note * Bradly Sanders MD - 03/24/2022 8:07 AM EDT UPDATED HISTORY AND PHYSICAL EXAMINATION SERVICE DATE: 03/24/2022 SERVICE TIME: 8:07 AM PHYSICAL EXAM MUST BE COMPLETED ON ADMISSION The History and Physical (completed in the past 30 days) has been reviewed and the patient has beenexamined. The contents accurately reflect the patient's condition with the following additions or revisions since the H&P was completed. Examination indicates no changes. This H&P can be found in the attached. SIGNATURE: Bradly Sanders MD PATIENT NAME: Khoa Connors Jr. DATE: March 24, 2022 TIME: 8:07 AM documented in this encounterFirelands Regional Medical Center08-26-2022 Miscellaneous Notes* Telephone Encounter - Helga Argueta Pss - 03/06/2022 11:20 AM EDT Patient states noone from office has called to inform him of his request. He will be coming in to the office today to speak to clinical. * Telephone Encounter - Anahi Tran OD - 03/05/2022 8:16 AM EDT Patient called to request a form to be sent to PCP (Dr. Angelic Monsalve) for surgical clearance. Has appointment Wednesday with PCP. * Telephone Encounter - Helga Argueta Pss - 03/04/2022 12:54 PM EDT -Patient called on status of message. Patient requesting to speak to office when form has been faxed. -Patient is also asking if he needs to be seen again by Dr. Sanders prior to surgery. Please call patient and advise. * Telephone Encounter - Kandy Medina - 02/26/2022 11:39 AM EDT The patient is scheduled for surgery and Dr. Sanders said that he needed to see his PCP fora physical prior to the procedure. He is requesting the form required to clear the patient for surgery be faxed to his PCP's office prior to his appointment on March 09. Dr. Angelic Gilmore ph. documented in this encounterFirelands Regional Medical Center07-06-2022 NoteHNO ID: [id number] Author: Nancy Lucas MA Service: ? Author Type: Flume Ride Operator Type: Progress Notes Filed: 01/14/2022 8:51 AM Note Text: Pt came in for surgery clearance for a workers comp case [facility] Lucas [facility] History of Present illness Narrative* Nancy Lucas MA - 01/14/2022 8:50 AM EDT Pt came in for surgery clearance for a workers comp case Nancy Lucas MA documented in this encounterFirelands [facility] Center05-31-2022 Instructions* Patient Instructions* Bradly Sanders MD - 12/09/2021 3:31 PM EDT Images from the original note were not included. documented in this encounterFirelands Regional Medical Center05-31-2022 History of Present illness Narrative* Bradly Sanders MD - 12/09/2021 3:25 PM EDT Assessment and Plan 1. 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 edema, without long-term current use of insulin (HCC) -undiagnosed and untreated 2. Lattice degeneration of both retinas 3. 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 Combined forms of age-related cataract of both eyes Cataract Presurgical Documentation Cataract: Left eye (OS) Patient reported symptoms: Associated symptoms Positive for: Blurred Vision, decreased vision, difficulty with reading, difficulty with watching television, halos, glare, starbursts Negative for: Eye Redness, foreign body sensation, wandering eye Current Visual Acuity: Right Eye Distance SC 20/25 Left Eye Distance SC CF at 3' Glare Testing: Visual Function: Khoa Connors Jr. states that the decline in vision from the cataract impedes theability to drive and to read as well as other activities of daily living. Khoa Connors Jr. has confirmed that he is no longer able to function adequately on a day-to-day basis because of his current visual condition. Further, it is my medical opinion that the cataract is the primary cause, or at least a significantly contributory cause of his visual dysfunction. With uncomplicated cataract surgery and lens implantation, it is my expectation that his visual function and quality of life will improve, significantly. The risks, benefits, alternatives, personnel and complications of cataract surgery with lens implantation were discussed with Khoa Connors Jr. in detail at this visit. The risk discussion included,but was not limited to, possible bleeding, infection, retinal detachment, lens dislocation or swelling in the eye. The rare, but potential possibility of vision loss was discussed. he appeared to understand and asked that I proceed with plans for surgery. Plan: -Continue blood sugar and blood pressure control Cataract: Left eye (OS) Aim -0.25 SA60WF/ACU0T0 power +14.0 Flomax N Diabetes Y Glaucoma N Astigmatism N Refractive surgery N Fuchs N Trypan blue Y/N Malyugin ring Y/N Other history of retinal detachment repair I have confirmed and edited as necessary the relevant ophthalmic history, ROS, and the neuro exam findings as obtained by others. I have seen and examined Khoa Connors . I have discussed the case and the management of this patient's care with the Resident/Fellow, if applicable. I also have reviewed and agree with the assessment and plan as stated above and agree withall of its relevant components. Bradly Sanders MD December 09, 2021 3:27 PM documented in this encounterFirelands [facility] Center03-28-2022 Miscellaneous Notes* Telephone Encounter - Catrachito Wallace Patient Black Top Paver Operator - 10/06/2021 2:27 PM EDT Patient's orthopedic office is asking for the rest of the patient's records to be sent over to their office. The office said they are missing the Anesthesia report but received the others. The officesaid Dr. Kim's police department secretary was the one faxing the original records. documented in this encounterFirelands Regional Medical Center03-21-2022 History of Present illness Narrative* Carly Kim MD - 09/29/2021 2:39 PM EDT Assessment/Plan: POM2 s/p SB/PPV/EL/AFx/C3F8 for RRD with multiple tears, left eye 07/16/21 - Pedro/Judy - OCT mac wnl ou, great foveal contour OS - Progressive cataract left eye Discussed refraction versus cataract evaluation, elects for cat eval with Dr. Sanders 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 edema, with long-term current use of insulin (HCC) - Patient unknown of dx but clear on exam and recent elevated A1cs (was 9s at 1 point) - Hba1c = Hemoglobin A1C (%) Date Value 07/17/2021 8.4 - Stressed blood pressure and blood sugar control and close follow-up with PCP/shale miner blasting Amber more OU - RD warnings Follow-up 3 months with exam and OCT; sooner for cataract evaluation with Dr. Sanders I have confirmed and edited as necessary the relevant ophthalmic history, ROS, and the neuro exam findings as obtained by others. I have discussed the case and the management of this patient's care with the Resident/Fellow, if applicable. I also have reviewed and agree with the assessment and plan as stated above and agree with all of its relevant components. Carly Kim MD documented in this encounterFirelands Regional Medical Center10-01-2021 History of Present illness NarrativePatient is a pleasant 60-year-old male presenting today for follow-up in regards to his left knee OA, patella osteochondral defect, and loose bodies. Patient was previously seen in office in April of 2021 in which discussion of left knee total arthroplasty took place, however other healthcare needs to precedence. States he had emergency surgery in July of 2021 for a detached retina of the left eye. States following surgery he experienced complications with coming out of anesthesia. He is currently experiencing limitations with his vision and continues to use a walker for ambulation aid. Michael jefferson he was experiencing leg numbness approximately 3 days following surgery in which he was dealing with pneumonia and an infection that was treated by antibiotics and seems to be doing much better. He has continued to experience pain, discomfort, and problems with his vision. With regards to hisleft knee, patient has continued to be quite symptomatic with his pain progressively worsening. States he is still interested with surgical intervention for his knee but is concerned with undergoing anesthesia as he recently faced many complications. He is also concerned with therapy rehab following surgery as he has been very limited in his capabilities due to his injuries. Additionally, he has been experiencing pain in his back and is being evaluated for this by pain management as he has beensymptomatic for over 2 years. He is not pleased with the treatment for his back as he has continuedto be quite symptomatic despite trying two injections. States he does not believe it is a mechanical injury, but a nerve injury. Patient states he is hopeful that surgical intervention for his knee will offer substantial improvement for his back pain.[facility] [address] Work Phone: [phone] 353-817504-21-2020 History of Past illness Narrative* Problem Noted Date Resolved Date Closed fracture of twelfth thoracic vertebra 11/07/2019 Fall 10/31/2019 11/07/2019 documented as of this encounter (statuses as of 09/29/2021) [place] [address]-21-2020 History of Past illness Narrative* Problem Noted Date Resolved Date Closed fracture of twelfth thoracic vertebra 11/07/2019 Fall 10/31/2019 11/07/2019 documented as of this encounter (statuses as of 10/08/2021) [place] [address]-21-2020 History of Past illness Narrative* Problem Noted Date Resolved Date Closed fracture of twelfth thoracic vertebra 11/07/2019 Fall 10/31/2019 11/07/2019 documented as of this encounter (statuses as of 12/09/2021) [place] [id number] History of Past illness Narrative* Problem Noted Date Resolved Date Closed fracture of twelfth thoracic vertebra 11/07/2019 Fall 10/31/2019 11/07/2019 documented as of this encounter (statuses as of 01/14/2022) [facility]* Diagnosis 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- Primary Recent retinal detachment, partial, with multiple defects 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 edema, without long-term current use of insulin (HCC) documented in this encounter [facility]* Diagnosis 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 edema, without long-term current use of insulin (HCC)- Primary 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 Chorioretinal scar, unspecified Combined forms of age-related cataract of both eyes Other and combined forms of senile cataract documented in this encounter [facility]* Diagnosis OPENED IN ERROR- Primary To allow closing an encounter opened in error (used in SmartSet) Combined forms of age-related cataract of both eyes Other and combined forms of senile cataract documented in this encounter [facility]* Diagnosis Combined forms of age-related cataract of both eyes Other and combined forms of senile cataract [facility] Pseudophakia- Primary Lens replaced by other means [facility] Diagnosis Iritis, recurrent, left- Primary 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 Recent retinal detachment, partial, with giant tear 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 Chorioretinal scar, unspecified CME (cystoid macular edema), left [facility] Diagnosis CME (cystoid macular edema), left- Primary Iritis, recurrent, left Pseudophakia Lens replaced by other means [facility] Diagnosis CME (cystoid macular edema), left- Primary [facility] Diagnosis CME (cystoid macular edema), left- Primary 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 Recent retinal detachment, partial, with giant tear [facility] Diagnosis CME (cystoid macular edema), left- Primary 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 Recent retinal detachment, partial, with multiple defects 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 edema, without long-term current use of insulin (HCC) [facility] Diagnosis After-cataract of left eye with vision obscured- Primary Pseudophakia Lens replaced by other means [facility] Diagnosis 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 edema, without long-term current use of insulin (HCC)- Primary 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 CME (cystoid macular edema), left Pseudophakia Lens replaced by other means [facility] Diagnosis CME (cystoid macular edema), left 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 Recent retinal detachment, partial, with multiple defects 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 edema, without long-term current use of insulin (HCC) [facility] Diagnosis Dry eye syndrome of both eyes- Primary CME (cystoid macular edema), left 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 Recent retinal detachment, partial, with multiple defects 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 edema, without long-term current use of insulin (HCC) documented in this encounter [facility]* Diagnosis CME (cystoid macular edema), left 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 Recent retinal detachment, partial, with multiple defects 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 edema, without long-term current use of insulin (HCC) Dry eye syndrome of both eyes documented in this encounter [facility]* Diagnosis Actinic keratoses- Primary Actinic keratosis Seborrheic keratoses Other seborrheic keratosis Lentigines Other dyschromia Acrochordon Unspecified hypertrophic and atrophic condition of skin documented in this encounter [facility]* Diagnosis Nummular dermatitis- Primary Contact dermatitis and other eczema, due to unspecified cause Actinic keratoses Actinic keratosis documented in this encounter [facility] CenterHistory of Present illness NarrativePatient is a very pleasant 60-year-old gentleman who presents today for evaluation of his right knee. He has noted a increased amount of swelling in the right knee. He has trouble when he is trying to kneel on it feels like it is going on a balloon. He does feel like it is tight and tense. We did request from [employer] opportunity to aspirate the knee this was approved and he is here today for the aspiration.[facility] [address] Work Phone: History of Present illness Narrative* Patient ID confirmed using Name and . * Patient wearing mask throughout session today d/t COVID-19 precautions. [facility] Work Phone: History of Present illness Narrative* Patient ID confirmed using Name and . * Patient wearing mask throughout session today d/t COVID-19 precautions. * Patient continues to demo significant weakness with DF but making progress with strengthening otherLE muscle groups. Ease/tolerance to step ups improving gradually. [facility] Work Phone: History of Present illness NarrativeWeakness noted with hip and quad strengthening. Continued ambulation into clinic with FWW. Fair quad eccentric control with step ups. LOB noted with tandem stance.[facility]: History of Present illness Narrative* Patient ID confirmed using Name and . * Patient wearing mask throughout session today d/t COVID-19 precautions. [facility] Work Phone: Hismciv of Present illness Narrative* Patient ID confirmed using Name and . * Patient wearing mask throughout session today d/t COVID-19 precautions. * Patient continues to present with pain and limitations coming from B knees, patient demos improved/improving strength and stability but painful limitations remain. [facility] Work Phone: history of Present illness Narrative* Patient ID confirmed using Name and . * Patient wearing mask throughout session today d/t COVID-19 precautions. * Patient making progress with strength/stability demos improved/improving balance and ability to perform exercises with increased reps/resistance but continues to present with pain which limits functional/community ambulation. [facility] Work Phone: Hismrsg of Present illness Narrative* Patient ID confirmed using Name and . * Patient wearing mask throughout session today d/t COVID-19 precautions. * Patient able to complete exercises with appropriate level of challenge/difficulty, making progress with strength/stability but continues to have pain and extension strength deficits with R knee but patient was able to increase reps on 6'' step showing improvement in CKC strength. [facility] Work Phone: Hisyxar of Present illness Narrative* Patient ID confirmed using Name and . * Patient wearing mask throughout session today d/t COVID-19 precautions. * Patient able to complete exercises with appropriate level of challenge/difficulty, making progress with strength/stability but continues to have pain and extension strength deficits with R knee but patient was able to increase reps on 6'' step showing improvement in CKC strength. [facility] Work Phone: History of Present illness Narrative* Patient ID confirmed using Name and . * Patient wearing mask throughout session today d/t COVID-19 precautions. [facility] Work Phone: history of Present illness Narrative* Patient identified by name & . Patient wore a mask during treatment d/t Covid-19 precautions. * Treatment consisted of ther ex's. Patient with weakness noted with DF and completes each leg individually as compared to bilaterally. Stands with L foot on green oval pad with standing bilateral ex'sto clear R foot with ex's. Numbness increased in R LE with tandem gait FWD/BWD, but decreased afterwards. [facility] Work Phone: history of Present illness NarrativePt able to complete treatment today with no increased pain/discomfort. Pt is improving in strength and is able to complete progressions of reps and resistance to exercises. Pt unable to complete DF bilaterally, has to do unilaterally with an assist for the R foot.[facility] Work Phone: history of Present illness NarrativePt able to complete treatment today with no increased pain/discomfort. Pt is improving in strength and is able to complete progressions of reps and resistance to exercises. Pt unable to complete DF bilaterally, has to do unilaterally with an assist for the R foot.[facility] Work Phone: history of Present illness NarrativePt tolerated treatment well with no increased pain/ discomfort. Pt strength is still improving, nowable to go up and down one flight of stairs at home before fatiguing, also now able to do R LE 4 steps ups with 1 R UE assist. Pt is still unable to DF left foot as well as go up a 6 step w/o 2 UE support.[facility] Work Phone: history of Present illness Narrative* Patient ID confirmed using Name and . * Patient wearing mask throughout session today d/t COVID-19 precautions. * Pt tolerated treatment well with no increased pain/ discomfort. Pt strength is still improving, nowable to go up and down one flight of stairs at home before fatiguing, has progressed to 4 steps ups with 1 UE assist this visit. Progressions were made to increase propulsion with LE vs UE with handrail. Pt is still unable to DF left foot as well as go up a 6 step w/o 2 UE support. * PUNEET Lerner participated in treatment this date with continuous supervision and all clinical decision making by Emeterio Palacio PTA, CHAD. [facility] Work Phone: History of Present illness NarrativePt was able to tolerate treatment today with no c/o of increased pain/discomfort. Pt is showing improvement with Quad strength as shown by increase in weight for LAQ as well as HSC with an increase in repetitions. Pt is still showing difficulty with stair negotiation and safety.[facility] Work Phone: history of [facility] illness Narrative* Patient ID confirmed using Name and . * Patient wearing mask throughout session today d/t COVID-19 precautions. * Pt was able to tolerate treatment today with no c/o of increased pain/discomfort. Pt is showing improvement with Quad strength as shown by increase in weight for LAQ as well as HSC with an increase in repetitions. Pt is still showing difficulty with stair negotiation and safety. * PUNEET Lerner participated in treatment this date with continuous supervision and all clinical decision making by Emeterio Palacio PTA, CHAD. [facility] Work Phone: History of Present illness NarrativePt tolerated treatment well. Pt hip strength is improving as shown by an increase from green to blue band, pt complained of pain around ankles due to band rubbing and being tight. Pt is still showingdeficits of SLS balance.[facility] Work Phone: history of Present illness Narrative* Patient ID confirmed using Name and . * Patient wearing mask throughout session today d/t COVID-19 precautions. * Pt tolerated treatment well. Pt hip strength is improving as shown by an increase from green to blue band, pt complained of pain around ankles due to band rubbing and being tight. Pt is still showingdeficits of SLS balance. * PUNEET Lerner participated in treatment this date with continuous supervision and all clinical decision making by Emeterio Palacio PTA, CHAD. [facility] Work Phone: History of Present illness NarrativePT tolerated treatment well with no increased pain. Noted slower completion of 3-way hip exercises due to an increased resistance and fatigue of those muscles.[facility] Work Phone: History of Present illness Narrative* PT tolerated treatment well with no increased pain. Noted slower completion of 3-way hip exercises due to an increased resistance and fatigue of those muscles. * PUNEET Lerner participated in treatment this date with continuous supervision and all clinical decision making by Emeterio Palacio PTA, CHAD. [facility] Work Phone: [facility] NarrativePatient is a very pleasant 60-year-old male who presents today in follow-up with regards to his bilateral knees particularly his left knee. He has been working with physical therapy he is gaining some strength with his right lower extremity but overall he still needs a walker for any balance he needs to use handrails to go up and down steps he is significant limited in terms of his ability with his right lower extremity which was damaged following a fall because his knee buckled and he fell onto his back. The left knee is intermittently painful. It is more painful when he is working with physical therapy. He does still continue to have some swelling in both the right of the left knee. The right is much improved following our aspiration.[facility] [address] Work Phone: History of Present illness Narrative* Patient ID confirmed using Name and . * Patient wearing mask throughout session today d/t COVID-19 precautions. * Patient with good tolerance to treatment, no c/o increased pain/discomfort in clinic. Patient making gradual progress with strength and stability, demos improving propulsion/gross extension with stepups and decreasing use/need for UE assistance. [facility] Work Phone: History of Present illness NarrativeContinue amb using FWW with slow marcie. He did demonstrate better pattern following session. Fatigued after treatment but no increase in pain. [facility] Work Phone: History of Present illness NarrativePatient identity confirmed today with name/. see goals; little if any improvements in knee strength/ROM since last re-assess 1 mth ago; ease of gait with FWW varies with knee and LBP. [facility] Work Phone: History of Present illness NarrativePatient is a very pleasant 60-year-old male who presents today in follow-up with regards to his left knee osteochondral defect DJD knee pain. He continues have significant mount of pain he is done physical therapy and has had some strengthening of the right lower extremity. He does complain of substantial pain with the left knee. [facility] [address] Work Phone: History of Present illness NarrativePatient is a very pleasant 60-year-old male presents today in follow-up with regards to his left knee. He continues have significant pain swelling and joint line tenderness on the left knee does bother him when he is active. He is been able to maintain his strength in the right lower extremity withhome exercises but he continues to have significant limitations because of his nerve damage in the right lower extremity is weak and not able to use his primary strength source.[facility] [address] Work Phone: History of Present illness NarrativePatient pleasant 60-year-old male presents today in follow-up with regards to his left knee. He continues to have significant pain in the left knee. He is interested in pursuing knee arthroplasty. \`.[facility] [address] Work Phone: History of Present illness NarrativePatient is a pleasant 60-year-old male presents today in follow-up with regards to his left knee osteoarthritis. He is scheduled to have some dental work done prior to his knee replacement. He still waiting for this to be accomplished he did have the vein mapping procedure prior to this visit todayis here today to discuss the results.[facility] [address] Work Phone: Hospital course Narrative No data available for this section [facility] Instructions* Name Dates Details Instructions not documented [facility] [address] Work Phone: Instructions* Name Dates Details Instructions not documented [facility] Work Phone: Instructions* Name Dates Details Instructions not documented [facility] [address] Work Phone: Instructions* Name Dates Details Instructions not documented [facility] Work Phone: Instructions* Name Dates Details Instructions not documented [facility] Work Phone: Reason for Referral Status Reason Specialty Diagnoses / Procedures Referre d By Contact Referred To Contact Closed Radiology Diagnoses Strain of right shoulder, initial encounter Procedures MR Shoulder Right Without Contrast Linda Alberts PA-C [address] [facility] [address] [address] Assessments Diagnosis Strain of right shoulder, initial encounter Diagnosis Pain in both knees, unspecified chronicity Pain in fibula Disorder of bone and cartilage, unspecified Pes anserinus bursitis of both knees Primary osteoarthritis of left knee Prepatellar bursitis of left knee Prepatellar bursitis, right knee Osteochondral defect of patella Advance Directives No Advanced Directives Records FoundDocuments on File Type Date Recorded 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 Advance Directives and Livin g Will 08/03/2019 2:14 PM Documents on File Type Date Recorded 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 Advance Directives and Livin g Will 08/03/2019 2:14 PM Documents on File Type Date Recorded 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 Advance Directive(s) 07/16/2021 11:36 AM Advance Directive(s) 10/30/2019 11:16 PM Summary Purpose Family History No Family History Records Found Mother Name Dates Details Family history of Known heal th problems: none(V49.89, Z78.9) Status:Active Mother Name Dates Details Family history of Known heal th problems: none(V49.89, Z78.9) Status:Active Mother Name Dates Details Family history of Known heal th problems: none(, Z78.9) Status:Active Mother Name Dates Details Family history of Known heal th problems: none(, Z78.9) Status:Active Mother Name Dates Details Family history of Known heal th problems: none(, Z78.9) Status:Active Mother Name Dates Details Family history of Known heal th problems: none(, Z78.9) Status:Active Unknown Family Member Name Dates Details Known health problems: none: Mother Status:Active Unknown Family Member Name Dates Details Known health problems: none: Mother Status:Active Unknown Family Member Name Dates Details Known health problems: none: Mother Status:Active Unknown Family Member Name Dates Details Known health problems: none: Mother Status:Active Unknown Family Member Name Dates Details Known health problems: none: Mother Status:Active Unknown Family Member Name Dates Details Known health problems: none: Mother Status:Active Unknown Family Member Name Dates Details Known health problems: none: Mother Status:Active Unknown Family Member Name Dates Details Known health problems: none: Mother Status:Active Unknown Family Member Name Dates Details Known health problems: none: Mother Status:Active Unknown Family Member Name Dates Details Known health problems: none: Mother Status:Active Unknown Family Member Name Dates Details Known health problems: none: Mother Status:Active Unknown Family Member Name Dates Details Known health problems: none: Mother Status:Active Unknown Family Member Name Dates Details Known health problems: none: Mother Status:Active Unknown Family Member Name Dates Details Known health problems: none: Mother Status:Active Unknown Family Member Name Dates Details Known health problems: none: Mother Status:Active Unknown Family Member Name Dates Details Known health problems: none: Mother Status:Active Unknown Family Member Name Dates Details Known health problems: none: Mother Status:Active Unknown Family Member Name Dates Details Known health problems: none: Mother Status:Active Unknown Family Member Name Dates Details Known health problems: none: Mother Status:Active Unknown Family Member Name Dates Details Known health problems: none: Mother Status:Active Unknown Family Member Name Dates Details Known health problems: none: Mother Status:Active Unknown Family Member Name Dates Details Known health problems: none: Mother Status:Active Unknown Family Member Name Dates Details Known health problems: none: Mother Status:Active Unknown Family Member Name Dates Details Known health problems: none: Mother Status:Active Unknown Family Member Name Dates Details Known health problems: none: Mother Status:Active Unknown Family Member Name Dates Details Known health problems: none: Mother Status:Active Unknown Family Member Name Dates Details Known health problems: none: Mother Status:Active Unknown Family Member Name Dates Details Known health problems: none: Mother Status:Active Unknown Family Member Name Dates Details Known health problems: none: Mother Status:Active Unknown Family Member Name Dates Details Known health problems: none: Mother Status:Active Unknown Family Member Name Dates Details Known health problems: none: Mother Status:Active Unknown Family Member Name Dates Details Known health problems: none: Mother Status:Active History of Present Illness * Hardy Clark MD - 11/30/2019 1:44 PM EDT Dictation on: 11/30/2019 2:00 PM by: HARDY CLARK [[id number]] Dictation on: 11/30/2019 2:02 PM by: HARDY CLARK [[id number]] documented in this encounter Chief Complaint PATIENT IS HERE FOR FOLLOW UP RIGHT KNEE. [facility] APPROVED. STATES THAT STILL IN PAIN AND IS WANTED IT DRAINED.PATIENT IS HERE FOR FOLLOW UP RIGHT KNEE. [facility] APPROVED. STATES THAT STILL IN PAIN AND IS WANTED IT DRAINED.PT HERE TODAY FOR 6 WK FU HAYDEN KNEE/SHOULDER. PT STATES HE IS HAVING ALOT OF PIN BUT THINKS WITH THERAPY HAS GIVEN HIM SOME STRENGTH.PT HERE FOR 3 WK FU LEFT KNEE. [facility]. DOI 06/01/19. STATES KNEE IS THE SAME, NO IMPROVEMENT. LAST THERAPY SESSION WAS 01/16/21. PAIN IS CONSTANT.PT HERE FOR 3 WK FU LEFT KNEE. [facility]. DOI 06/01/19. STATES KNEE IS THE SAME, NO IMPROVEMENT. LAST THERAPY SESSION WAS 01/16/21. PAIN IS CONSTANT.1 MONTH F/U L KNEE.Patient here for f/u for left knee..Sign for SX..Pain is a 8/10 today..Knee feels sore and swollen..Patient here with , Danielle, to review recent x-rays of last visit and venous duplex study ofLLE. Patient states he is the same with regard to pain left knee.Patient here with , Danielle, to review recent x-rays of last visit and venous duplex study Talita. Patient states he is the same with regard to pain left knee.[facility] follow- up) left knee OA, patella osteochondral defect, and loose bodies. He was previously seenin office in 04/2021 in which discussion of left total knee arthroplasty took place, however other healthcare needs to precedence. He states he just had surgery in 07/2021 for a detached retina of theleft eye. He has limitations with his vision currently and continues to use a walker for ambulationaid. He denies any significant changes in his knee condition at this time. Medications Administered Section Active Administered Medications - up to 3 most recent administrations Medication Order MAR Action Action Date Dose Rate Site fluorescein-benoxinate 0.25-0.4 % 1 Drop (FLURESS) 1 Drop, BOTH EYES, DIRECTED, Starting on Wed09/29/21 at 1400, Until Wed09/30/21 at 0159, Administer for applanation tonometry. In the event of a Fluress shortage, administer 1 drop of Alysia-Fluor into both eyes as directed for applanation tonometry., [facility] ORD[facility] Given 09/29/2021 2:00 PM EDT 1 Drop PHENYLephrine 2.5 % 1 Drop (AK-DILATE, JADYN-SYNEPHRINE) 1 Drop, BOTH EYES, DIRECTED, Starting on Wed09/29/21 at 1400, Until Wed09/30/21 at 0159, Administer for dilation PROTECT FROM LIGHT, [facility] MED ORDERS Given 09/29/2021 2:00 PM EDT 1 Drop proparacaine 0.5 % 1 Drop (ALCAINE) 1 Drop, BOTH EYES, DIRECTED, Starting on Wed09/29/21 at 1400, Until Wed09/30/21 at 0159, Administer for pneumo tonometry, tonopen tonometry, or pachymetry. In the event of a proparacaine shortage, administer 1 drop of tetracaine 0.5% ophthalmic drops into both eyes as directed for pneumo tonometry, tonopen tonometry, or pachymetry, [facility] MED ORDERS Given 09/29/2021 2:00 PM EDT 1 Drop tropicamide 1 % 1 Drop (MYDRIACYL) 1 Drop, BOTH EYES, DIRECTED, Starting on Wed09/29/21 at 1400, Until Wed09/30/21 at 0159, Administer for dilation, [facility] MED ORDERS Given 09/29/2021 2:00 PM EDT 1 Drop Active Administered Medications - up to 3 most recent administrations Medication Order MAR Action Action Date Dose Rate Site PHENYLephrine 2.5 % 1 Drop (AK-DILATE, JADYN-SYNEPHRINE) 1 Drop, BOTH EYES, DIRECTED, Starting on Wed12/09/21 at 1430, Until Wed12/10/21 at 0229, Administer for dilation PROTECT FROM LIGHT Given 12/09/2021 2:52 PM EDT 1 Drop proparacaine 0.5 % 1 Drop (ALCAINE) 1 Drop, BOTH EYES, DIRECTED, Starting on Wed12/09/21 at 1430, Until Wed12/10/21 at 022, Administer for pneumo tonometry, tonopen tonometry, or pachymetry. In the event of a proparacaine shortage, administer tetracaine 0.5% ophthalmic drops 1 drop in the left eye as directed for pneumo tonometry, tonopen tonometry, or pachymetry Given 12/09/2021 2:52 PM EDT 1 Drop tropicamide 1 % 1 Drop (MYDRIACYL) 1 Drop, BOTH EYES, DIRECTED, Starting on Wed12/09/21 at 1430, Until Wed12/10/21 at 0229, Administer for dilation Given 12/09/2021 2:52 PM EDT 1 Drop Inactive Administered Medications - up to 3 most recent administrations Medication Order MAR Action Action Date Dose Rate Site lidocaine (PF) 40 mg/mL (4 %) 1 mL ophthalmic syringe 1 mL, LEFT EYE, ONCE, 1 dose, On Wed03/24/22 at 0900 Given 03/24/2022 6:51 AM EDT 1 mL tropicamide 0.5% - cyclopentolate 0.5% - PHENYLephrine 2.5% ophthalmic syringe 1 Drop, LEFT EYE, EVERY 5 MINUTES NEEDED, 3 doses, Starting on Wed03/24/22 at 0900, Until Wed03/24/22 at 0701, until patient is dilated, FOR TOPICAL OPHTHALMIC USE ONLY Given 03/24/2022 7:01 AM EDT 1 Drop Active Administered Medications - up to 3 most recent administrations Medication Order MAR Action Action Date Dose Rate Site PHENYLephrine 2.5 % 1 Drop (AK-DILATE, JADYN-SYNEPHRINE) 1 Drop, BOTH EYES, DIRECTED, Starting on Wed06/24/22 at 1100, Until Wed06/24/22 at 2259, Administer for dilation PROTECT FROM LIGHT Given 06/24/2022 11:00 AM EST 1 Drop proparacaine 0.5 % 1 Drop (ALCAINE) 1 Drop, BOTH EYES, DIRECTED, Starting on Wed06/24/22 at 1100, Until Wed06/24/22 at 2259, Administer for pneumo tonometry, tonopen tonometry, or pachymetry. In the event of a proparacaine shortage, administer tetracaine 0.5% ophthalmic drops 1 drop in the left eye as directed for pneumo tonometry, tonopen tonometry, or pachymetry Given 06/24/2022 11:00 AM EST 1 Drop tropicamide 1 % 1 Drop (MYDRIACYL) 1 Drop, BOTH EYES, DIRECTED, Starting on Wed06/24/22 at 1100, Until Wed06/24/22 at 2259, Administer for dilation Given 06/24/2022 11:00 AM EST 1 Drop Active Administered Medications - up to 3 most recent administrations Medication Order MAR Action Action Date Dose Rate Site PHENYLephrine 2.5 % 1 Drop (AK-DILATE, JADYN-SYNEPHRINE) 1 Drop, BOTH EYES, DIRECTED, Starting on Wed07/30/22 at 1030, Until Wed07/30/22 at 2229, Administer for dilation PROTECT FROM LIGHT, [facility] MED ORDERS Given 07/30/2022 10:30 AM EST 1 Drop proparacaine 0.5 % 1 Drop (ALCAINE) 1 Drop, BOTH EYES, DIRECTED, Starting on Wed07/30/22 at 1030, Until Wed07/30/22 at 2229, Administer for pneumo tonometry, tonopen tonometry, or pachymetry. In the event of a proparacaine shortage, administer 1 drop of tetracaine 0.5% ophthalmic drops into both eyes as directed for pneumo tonometry, tonopen tonometry, or pachymetry, [facility] MED ORDERS Given 07/30/2022 10:30 AM EST 1 Drop tropicamide 1 % 1 Drop (MYDRIACYL) 1 Drop, BOTH EYES, DIRECTED, Starting on Wed07/30/22 at 1030, Until Wed07/30/22 at 2229, Administer for dilation, [facility] MED ORDERS Given 07/30/2022 10:30 AM EST 1 Drop Active Administered Medications - up to 3 most recent administrations Medication Order MAR Action Action Date Dose Rate Site PHENYLephrine 2.5 % 1 Drop (AK-DILATE, JADYN-SYNEPHRINE) 1 Drop, LEFT EYE, DIRECTED, Starting on Wed08/18/22 at 1500, Until Wed08/19/22 at 025, Administer for dilation PROTECT FROM LIGHT Given 08/18/2022 2:43 PM EST 1 Drop proparacaine 0.5 % 1 Drop (ALCAINE) 1 Drop, LEFT EYE, DIRECTED, Starting on Wed08/18/22 at 1500, Until Wed08/19/22 at 025, Administer for pneumo tonometry, tonopen tonometry, or pachymetry. In the event of a proparacaine shortage, administer tetracaine 0.5% ophthalmic drops 1 drop in the left eye as directed for pneumo tonometry, tonopen tonometry, or pachymetry Given 08/18/2022 2:43 PM EST 1 Drop tropicamide 1 % 1 Drop (MYDRIACYL) 1 Drop, LEFT EYE, DIRECTED, Starting on Wed08/18/22 at 1500, Until Wed08/19/22 at 025, Administer for dilation Given 08/18/2022 2:43 PM EST 1 Drop Active Administered Medications - up to 3 most recent administrations Medication Order MAR Action Action Date Dose Rate Site PHENYLephrine 2.5 % 1 Drop (AK-DILATE, JADYN-SYNEPHRINE) 1 Drop, BOTH EYES, DIRECTED, Starting on Wed09/02/22 at 1630, Until Wed09/03/22 at 0429, Administer for dilation PROTECT FROM LIGHT Given 09/02/2022 4:30 PM EST 1 Drop proparacaine 0.5 % 1 Drop (ALCAINE) 1 Drop, BOTH EYES, DIRECTED, Starting on Wed09/02/22 at 1630, Until Wed09/03/22 at 0429, Administer for pneumo tonometry, tonopen tonometry, or pachymetry. In the event of a proparacaine shortage, administer tetracaine 0.5% ophthalmic drops 1 drop in the left eye as directed for pneumo tonometry, tonopen tonometry, or pachymetry Given 09/02/2022 4:30 PM EST 1 Drop tropicamide 1 % 1 Drop (MYDRIACYL) 1 Drop, BOTH EYES, DIRECTED, Starting on Wed09/02/22 at 1630, Until Mamie 09/03/22 at 0429, Administer for dilation Given 09/02/2022 4:30 PM EST 1 Drop Active Administered Medications - up to 3 most recent administrations Medication Order MAR Action Action Date Dose Rate Site fluorescein-benoxinate 0.25-0.4 % 1 Drop (FLURESS) 1 Drop, BOTH EYES, DIRECTED, Starting on Mamie 12/24/22 at 1500, Until Wed12/25/22 at 025, Administer for applanation tonometry. In the event of a Fluress shortage, administer 1 drop of Alysia-Fluor into both eyes as directed for applanation tonometry., [facility] MED ORDERS Given 12/24/2022 3:00 PM EDT 1 Drop PHENYLephrine 2.5 % 1 Drop (AK-DILATE, JADYN-SYNEPHRINE) 1 Drop, BOTH EYES, DIRECTED, Starting on Mamie 12/24/22 at 1500, Until Wed12/25/22 at 0259, Administer for dilation PROTECT FROM LIGHT, [facility] MED ORDERS Given 12/24/2022 3:00 PM EDT 1 Drop proparacaine 0.5 % 1 Drop (ALCAINE) 1 Drop, BOTH EYES, DIRECTED, Starting on Mamie 12/24/22 at 1500, Until Wed12/25/22 at 0259, Administer for pneumo tonometry, tonopen tonometry, or pachymetry. In the event of a proparacaine shortage, administer 1 drop of tetracaine 0.5% ophthalmic drops into both eyes as directed for pneumo tonometry, tonopen tonometry, or pachymetry, [facility] MED ORDERS Given 12/24/2022 3:00 PM EDT 1 Drop tropicamide 1 % 1 Drop (MYDRIACYL) 1 Drop, BOTH EYES, DIRECTED, Starting on Mamie 12/24/22 at 1500, Until Wed12/25/22 at 0259, Administer for dilation, [facility] MED ORDERS Given 12/24/2022 3:00 PM EDT 1 Drop Additional Source Comments Reason for Visit (unrecogniz ed section and content) Reason Comments Pain Status Reason Specialty Diagnoses / Procedures Referred By Contact Referred To Contact Closed Sports Medicine Diagnoses Pain in both knees, unspecified chronicity Linda Alberts PA-C [address] [address] Hardy Clark MD [address] [place] [address] Reason Comments Post-op (Ophthalmology) Left Eye S/P REO PERATION REPAIR OF RD VIA VITRECTOMY OS 07/16/2021 Reason Comments Patient Update Reason Comments Blurred Vision Left Eye Difficulty Reading Left Eye Glare Halos Left Eye Specialty Diagnoses / Procedures Referred By Contac t Referred To Contact Diagnoses Combined forms of age-related cataract of both eyes Procedures XCAPSL CTRC RMVL INSJ IO LENS PROSTH W/O ECP OPH BMTRY PRTL COHER INTRFRMTRY IO LENS PWR LINCOLN PHACOEMULSIFICATION CATARACT IMPLANT INTRAOCULAR LENS W/O ENDOSCOPIC CYCLOPHOTOCOAGULATION OPHTHALMIC BIOMETRY BY PARTIAL COHERENCE INTERFEROMETRY W/INTRAOCULAR LENS POWER CALCULATION [facility] [address] [place] [address] Referral ID Status Reason Start Date Expiration Date Visits Re quested Visits Authorized [id number] 1 1 Reason Comments Post-op Cataract OS Status Post Traditio nal Cataract Surgery with PC IOL - Left eye (03/24/2022) Reason Comments Schedule Surgery Reason Comments Forms Reason Comments Post-op (Ophthalmology) Left Eye -s/p ca taract extraction with intraocular lens implantation left eye 03/24/22 Reason Comments Medication Problem Reason Comments Blurred Vision Left Eye Eye Pain Left Eye Reason Comments Diabetic Retinopathy Evaluation Reason Comments Diabetes Last HgbA1c was 8.4 Moderate Nonproliferative Diabetic Retin opathy Bilateral Epiretinal Membrane Follow Up Left eye Specialty Diagnoses / Procedures Referred By Contact Referred To Contact Ophthalmology / OPHTHALMOLOGY Diagnoses Posterior capsular opacification follow up/ yag laser referred by YAG left eye for posterior capsular opacity Procedures POST-CATARACT LASER SURGERY LASER Wilmer Canales MD, PhD [address] [place] [address] Bradly Sanders MD [address] [place] [address] Referral ID Status Reason Start Date Expiration Date Visits Re quested Visits Authorized [id number] Closed 08/18/2022 11/16/2022 1 1 Reason Comments Lattice Degeneration Follow Up Chorioretinal Scar Follow Up Diabetes Foreign Body Sensation Photophobia Left Eye Reason Comments Cystoid Macular Edema evaluation Specialty Diagnoses / Procedures Referred By Contact Referred To Contact Ophthalmology / OPHTHALMOLOGY Diagnoses *YAG left eye for posterior capsular opacity Procedures POST-CATARACT LASER SURGERY NEW ADULT Wilmer Canales MD, PhD [address] [place] [address] Wilmer Canales MD, PhD [address] [place] [address] Referral ID Status Reason Start Date Expiration Date Visits Re quested Visits Authorized [id number] Closed 09/22/2022 11/08/2022 1 1 Reason Comments S/P SB/PPV Left eye 07/16/2021 Non-insulin Dependent Diabetes Mellitus Epiretinal Membrane Follow Up Left eye Reason Comments Non-insulin Dependent Diabetes Mellitus Checked by [id number] 5.0 Epiretinal Membrane Follow Up Left eye Difficulty Reading Both Eyes Reason Comments Skin Check arms, face and neck only Reason Comments Follow Up (unrecognized sect ion and content) No Status Records FoundNo Status Records FoundNo Status Records FoundNo Status Records FoundNo Status Records FoundNo Status Records FoundNo Status Records FoundNo Status Records Found INFORMATION SOURCE (unrecogn ized section and content) DATE CREATED AUTHOR AUTHOR'S ORGANIZ ATION 01/28/2020 [facility] DATE CREATED AUTHOR AUTHOR'S ORGANIZ ATION 07/19/2020 [facility] DATE CREATED AUTHOR AUTHOR'S ORGANIZ ATION 07/26/2021 [facility] DATE CREATED AUTHOR AUTHOR'S ORGANIZ ATION 09/03/2021 [facility] DATE CREATED AUTHOR AUTHOR'S ORGANIZ ATION 03/25/2022 [facility] DATE CREATED AUTHOR AUTHOR'S ORGANIZ ATION 06/07/2023 [facility] ([place]) DATE CREATED AUTHOR AUTHOR'S ORGANIZ ATION 07/03/2023 [facility] Comments (unrecognize d section and content) In the event this informatio n is protected by the Federal Confidentiality of Alcohol and Drug Abuse Patient Records regulations: The Federal rules restrict any use of the information to criminally investigate or prosecute any alcohol or drug abuse patient.[facility] the event this information is protected by the Federal Confidentiality of Alcohol and Drug Abuse Patient Records regulations: The Federal rules restrict any use of the information to criminally investigate or prosecute any alcohol or drug abuse patient.[facility] the event this information is protected by the Federal Confidentiality of Alcohol and Drug Abuse Patient Records regulations: The Federal rules restrict any use of the information to criminally investigate or prosecute any alcohol or drug abuse patient.[facility] the event this information is protected by the Federal Confidentiality of Alcohol and Drug Abuse Patient Records regulations: The Federal rules restrict any use of the information to criminally investigate or prosecute any alcohol or drug abuse patient.[facility] the event this information is protected by the Federal Confidentiality of Alcohol and Drug Abuse Patient Records regulations: The Federal rules restrict any use of the information to criminally investigate or prosecute any alcohol or drug abuse patient.[facility] the event this information is protected by the Federal Confidentiality of Alcohol and Drug Abuse Patient Records regulations: The Federal rules restrict any use of the information to criminally investigate or prosecute any alcohol or drug abuse patient.[facility] the event this information is protected by the Federal Confidentiality of Alcohol and Drug Abuse Patient Records regulations: The Federal rules restrict any use of the information to criminally investigate or prosecute any alcohol or drug abuse patient.[facility] the event this information is protected by the Federal Confidentiality of Alcohol and Drug Abuse Patient Records regulations: The Federal rules restrict any use of the information to criminally investigate or prosecute any alcohol or drug abuse patient.[facility] the event this information is protected by the Federal Confidentiality of Alcohol and Drug Abuse Patient Records regulations: The Federal rules restrict any use of the information to criminally investigate or prosecute any alcohol or drug abuse patient.[facility] the event this information is protected by the Federal Confidentiality of Alcohol and Drug Abuse Patient Records regulations: The Federal rules restrict any use of the information to criminally investigate or prosecute any alcohol or drug abuse patient.[facility] the event this information is protected by the Federal Confidentiality of Alcohol and Drug Abuse Patient Records regulations: The Federal rules restrict any use of the information to criminally investigate or prosecute any alcohol or drug abuse patient.[facility] Center[facility] the event this information is protected by the Federal Confidentiality of Alcohol and Drug Abuse Patient Records regulations: The Federal rules restrict any use of the information to criminally investigate or prosecute any alcohol or drug abuse patient.[facility] Center[facility] the event this information is protected by the Federal Confidentiality of Alcohol and Drug Abuse Patient Records regulations: The Federal rules restrict any use of the information to criminally investigate or prosecute any alcohol or drug abuse patient.[facility] CenterIn the event this information is protected by the Federal Confidentiality of Alcohol and Drug Abuse Patient Records regulations: The Federal rules restrict any use of the information to criminally investigate or prosecute any alcohol or drug abuse patient.[facility] CenterIn the event this information is protected by the Federal Confidentiality of Alcohol and Drug Abuse Patient Records regulations: The Federal rules restrict any use of the information to criminally investigate or prosecute any alcohol or drug abuse patient.[facility] CenterIn the event this information is protected by the Federal Confidentiality of Alcohol and Drug Abuse Patient Records regulations: The Federal rules restrict any use of the information to criminally investigate or prosecute any alcohol or drug abuse patient.[facility] CenterIn the event this information is protected by the Federal Confidentiality of Alcohol and Drug Abuse Patient Records regulations: The Federal rules restrict any use of the information to criminally investigate or prosecute any alcohol or drug abuse patient.[facility] CenterIn the event this information is protected by the Federal Confidentiality of Alcohol and Drug Abuse Patient Records regulations: The Federal rules restrict any use of the information to criminally investigate or prosecute any alcohol or drug abuse patient.[facility] CenterIn the event this information is protected by the Federal Confidentiality of Alcohol and Drug Abuse Patient Records regulations: The Federal rules restrict any use of the information to criminally investigate or prosecute any alcohol or drug abuse patient.[facility] Medical CenterIn the event this information is protected by the Federal Confidentiality of Alcohol and Drug Abuse Patient Records regulations: The Federal rules restrict any use of the information to criminally investigate or prosecute any alcohol or drug abuse patient.[facility] the event this information is protected by the Federal Confidentiality of Alcohol and Drug Abuse Patient Records regulations: The Federal rules restrict any use of the information to criminally investigate or prosecute any alcohol or drug abuse patient.[facility] Care Teams (unrecognized sec tion and content) Ammonium Nitrate Crystallizer Relationship Specialty Start Date End Date Angelic Monsalve [address] [facility] [address] [place] [address] PCP - General Family Practice 12/09/21 Ammonium Nitrate Crystallizer Relationship Specialty Start Date End Date Angelic Monsalve [address] [place] [address] PCP - General Family Practice 12/09/21 Ammonium Nitrate Crystallizer Relationship Specialty Start Date End Date Angelic Monsalve [address] [place] [address] PCP - General Family Practice 12/09/21 Ammonium Nitrate Crystallizer Relationship Specialty Start Date End Date Angelic Monsalve [address] [place] [address] PCP - General Family Practice 12/09/21 Ammonium Nitrate Crystallizer Relationship Specialty Start Date End Date Angelic Monsalve [address] [place] [address] PCP - General Family Practice 12/09/21 Ammonium Nitrate Crystallizer Relationship Specialty Start Date End Date Angelic Monsalve [address] [place] [address] PCP - General Family Medicine 12/09/21 Ammonium Nitrate Crystallizer Relationship Specialty Start Date End Date Angelic Monsalve [address] [place] [address] PCP - General Family Medicine 12/09/21 Ammonium Nitrate Crystallizer Relationship Specialty Start Date End Date Angelic Monsalve [address] [place] [address] PCP - General Family Medicine 12/09/21 Ammonium Nitrate Crystallizer Relationship Specialty Start Date End Date Angelic Monsalve [address] [place] [address] PCP - General Family Medicine 12/09/21 Ammonium Nitrate Crystallizer Relationship Specialty Start Date End Date Angelic Monsalve [address] [place] [address] PCP - General Family Medicine 12/09/21 Ammonium Nitrate Crystallizer Relationship Specialty Start Date End Date Angelic Monsalve [address] [place] [address] PCP - General Family Medicine 12/09/21 Ammonium Nitrate Crystallizer Relationship Specialty Start Date End Date Angelic Monsalve [address] [place] [address] PCP - General Family Medicine 12/09/21 Ammonium Nitrate Crystallizer Relationship Specialty Start Date End Date Gricel Angelic Vincent [address] [place] [address] PCP - General Family Medicine 12/09/21 Ammonium Nitrate Crystallizer Relationship Specialty Start Date End Date Angelic Monsalve [address] [facility] [address] [place] [address] PCP - General Family Medicine 12/09/21 Ammonium Nitrate Crystallizer Relationship Specialty Start Date End Date Angelic Monsalve [address] [facility] [address] [place] [address] PCP - General Family Medicine 12/09/21 Ammonium Nitrate Crystallizer Relationship Specialty Start Date End Date Angelic Monsalve [address] [facility] [address] [place] [address] PCP - General Family Medicine 12/09/21 Ammonium Nitrate Crystallizer Relationship Specialty Start Date End Date Angelic Monsalve [address] [facility] [address] [place] [address] PCP - General Family Medicine 12/09/21 Scheduled Active and Recently Administ ered Medications (unrecognized section and content) PRN Medication Order 03/22/2022 03/23/2022 03/24/2022 balanced salt ophthalmic solution (BSS) (CANCELED) X (OR/PROCEDURE) PRN, Starting on Wed03/24/22 at 0842, Until Wed03/24/22 at 0914, Intraprocedure 0842 (Given - Provid er: Flash Raines RN) balanced salts (BSS) (CANCELED) X (OR/PROCEDURE) PRN, Starting on Wed03/24/22 at 0908, Until Wed03/24/22 at 0914, Intraprocedure 0908 (Given - Provid er: Bradly Sanders MD) cefuroxime intraocular injection 1 mg in NaCl 0.9% 0.1 mL (ZINACEF) (CANCELED) X (OR/PROCEDURE) PRN, Starting on Wed03/24/22 at 0906, Until Wed03/24/22 at 0914, Intraprocedure 0906 (Given - Provid er: Bradly Sanders MD) chondroitin-sodium hyaluronate 4-3 % (40-30 mg/mL) intraocular injection (VISCOAT) (CANCELED) X (OR/PROCEDURE) PRN, Starting on Wed03/24/22 at 0842, Until Wed03/24/22 at 0914, Intraprocedure 0842 (Given - Provid er: Bradly Sanders MD) lidocaine (PF) 10 mg/mL (1 %) injection (XYLOCAINE) (CANCELED) X (OR/PROCEDURE) PRN, Starting on Wed03/24/22 at 0838, Until Wed03/24/22 at 09, Intraprocedure 0838 (Given - Provid er: Bradly Sanders MD - Comment: left eye topical)0841 (Given - Provider: Bradly Sanders MD - Comment: left eye ic) lidocaine HCl (PF) 20 mg/mL (2 %) injection (CANCELED) X (OR/PROCEDURE) PRN, Starting on Wed03/24/22 at 0824, Until Wed03/24/22 at 09, Intraprocedure 0824 (Given - Provid er: Bradly Sanders MD - Comment: left eye) pyttbwac-dlmubkyqo-wxmhtrtdbdnnj 3.5 mg/g-10,000 unit/g-0.1 % (POLYDEX) (CANCELED) X (OR/PROCEDURE) PRN, Starting on Wed03/24/22 at 0911, Until Wed03/24/22 at 0914, Intraprocedure 0911 (Given - Provid er: Lana Mercado RN) PHENYLephrine syringe 1.5% (15 mg/mL) (JADYN-SYNEPHRINE) (CANCELED) X (OR/PROCEDURE) PRN, Starting on Wed03/24/22 at 0838, Until Wed03/24/22 at 0914, Intraprocedure 0838 (Given - Provid er: Bradly Sanders MD - Comment: topical)0841 (Given - Provider: Bradly Sanders MD - Comment: ic) Povidone-Iodine 5 % ophth soln (BETADINE) (CANCELED) X (OR/PROCEDURE) PRN, Starting on Wed03/24/22 at 0828, Until Wed03/24/22 at 0914, Intraprocedure 0828 (Given - Provid er: ST Lisa) sodium hyaluronate 10 mg/mL injection (PROVISC,HEALON PRO) (CANCELED) X (OR/PROCEDURE) PRN, Starting on Wed03/24/22 at 0842, Until Wed03/24/22 at 0914, Intraprocedure 0842 (Given - Provid er: Bradly Sanders MD)0903 (Given - Provider: Bradly Sanders MD) tropicamide 0.5% - cyclopentolate 0.5% - PHENYLephrine 2.5% ophthalmic syringe (COMPLETED) 1 Drop, LEFT EYE, EVERY 5 MINUTES NEEDED, 3 doses, Starting on Wed03/24/22 at 0900, Until Wed03/24/22 at 0701, until patient is dilated, FOR TOPICAL OPHTHALMIC USE ONLY 0651 (Given - Provid er: Wendy Tapia RN)0656 (Given - Provider: Wendy Tapia RN)0701 (Given - Provider: Wendy Tapia RN) FOR RECORDS PERTAINING TO PATIENTS WHO ARE OR HAVE BEEN ENROLLED IN A CHEMICAL DEPENDENCY/SUBSTANCEABUSE PROGRAM, SOME INFORMATION MAY BE OMITTED. This clinical summary was aggregated from multiple sources. Caution should be exercised in using it in the provision of clinical care. This summary normalizes information from multiple sources, and as a consequence, information in this document may materially change the coding, format and clinical context of patient data. In addition, data may be omitted in some cases. CLINICAL DECISIONS SHOULD BE BASED ON THE PRIMARY CLINICAL RECORDS. [facility]. provides no warranty or guarantee of the accuracy or completeness of information in this document.
[2023-08-14 10:35] LABS: Absolute Lymphocyte Count 0.73 X10^3/uL (0.83-4.51); Absolute Neutrophil Count 2.8 X10^3/uL (2.0-7.7); Basophil# 0.01 X10^3/uL; Basophil% 0.2 % (0-1); Eosinophil# 0.17 X10^3/uL; Eosinophils% 4.1 % (0-5); Hematocrit 38.7 % (40-54); Hemoglobin 11.9 g/dL (13.0-16.5); Lymphocyte # 0.73 X10^3/ul (0.83-4.51); Lymphocyte % 17.8 % (19-41); Mean Corp Hgb Conc 30.7 g/dL (32-36); Mean Corpuscular Hgb 31.5 pg (27.0-32.0); Mean Corpuscular Volume 102.4 fL (80-94); Mean Platelet Vol. 10.8 fl (6.2-12.0); Monocyte# 0.35 X10^3/uL; Monocyte% 8.5 % (0-10); NRBC Flagged by Analyzer 0 % (0-5); Neutrophil # 2.84 X10^3/uL (2.7-7.7); Neutrophil % 69.2 % (47-70); Platelet Count 118 K/mm3 (150-450); RBC Distribution Width CV 14.1 % (11.6-14.6); RBC Distribution Width SD 53.2 fl (35.1-43.9); Red Blood Count 3.78 M/mm3 (4.6-6.2); White Blood Count 4.1 K/mm3 (4.4-11.0)
[2023-08-14 10:57] LABS: Anion Gap -1 (5-15); BUN 20 mg/dL (7-18); BUN/Creat Ratio 21.3 RATIO (10-20); Calcium,Total 9.3 mg/dL (8.5-10.1); Chloride 113 mmol/L (98-107); Creatinine, Serum 0.94 mg/dL (0.70-1.30); EST Glomerular Filtration Rate 86 mL/min (>60); Est Glom Filt Rate - Afr Amer 104 mL/min (>60); Glucose 150 mg/dL (74-106); Potassium 4.5 mmol/L (3.5-5.1); Sodium Level 143 mmol/L (136-145)
== END | disposition home or self-care (01) ==
LOC: LAB 09:42
PROVIDERS: PCP Family Medicine; Referring Provider Specialist; Visit Provider Specialist
DX: Z01.818 Encounter for other preprocedural examination (principal)
CPT/HCPCS: 36415; 80048; 82040; 85025

== ENCOUNTER 2023-08-25 08:38 | Inpatient (IN) | payer OTHER, SELFPAY ==
--- NOTE | 2023-08-19 14:27 | HP.PCM_ITS ---
History and Physical History and Physical? Patient Name: Khoa Turner : 1960 From:? LIBORIO LINDER PA-C? DATE OF PRE-OPERATIVE EXAM: 08/18/2023 DATE OF SURGERY:? 08/25/2023 SCHEDULED PROCEDURE:? Left total knee arthroplasty HISTORY OF PRESENT ILLNESS: Preoperative history and physical exam was performed on August 18, 2023.? This is a 62-year-old male who has been having ongoing pain for 3-4 years.? Patient had surgery scheduled for September 2022 but was canceled secondary to low nutrition markers and elevated A1c.? Patient has been working in the past with dietitian for appropriate optimization.? Since he has had sufficient amount of time with optimization Dr. Daryl Luz fell appropriate to move forward with surgical intervention.? Patient continues to have constant pain which is aching and sore with the left knee.? He has increased pain going up and down stairs, sitting and walking.? He had a previous injury at work when he fell directly on the knee.? Patient has difficulty with activities of daily living including bathing/showering, getting dressed, housework, shopping and leisure activities.? Pain is over the medial and lateral knee.? He has tried previous oral medications including Tylenol and nonsteroidal anti-inflammatories without relief.? He has been through previous physical therapy and home exercises without relief.? Patient has attempted corticosteroid injections with no relief.? He has obtain surgical clearance from the primary care provider.? His A1c is currently 6.7.? Patient has had previous injury to his lumbar spine which has caused neurologic deficits on the right lower extremity and atrophy.? He continues to use a walker and cane.? He has attempted a brace in the past.? After failing conservative measures and discussing all treatment options with Dr. Daryl Luz, the patient does wish to proceed with a left total knee arthroplasty.? Patient has medical history pertinent for type 2 diabetes mellitus, enlarged prostate, pernicious anemia, vitamin B12 deficiency and nocturia.? He denies previous history of DVT or pulmonary embolism.? He has had previous spine fusion.? He denies any recent chest pain, shortness of breath, fevers chills or recent infections.? Patient does report that he gets vitamin B12 shots every 12 weeks. Patient does have previous chronic neurologic deficits on the right lower extremity and has a RAPT Score of 6/12 which puts him at likely need for inpatient care after surgical intervention.? Patient is unable to provide adequate care at home due to her own medical problems. REVIEW OF SYSTEMS: Review Of Systems: Constitutional: Denies change in appetite, fever and weight change. Cardiovasular: Denies chest pain, heart murmur and irregular heartbeat. Respiratory: Denies cough, pneumonia, shortness of breath, tuberculosis and wheezing. Gastrointestinal: Denies constipation, diarrhea, heartburn, nausea, rectal itching, bloody stools and vomiting. Genitourinary: Denies incontinence. Musculoskeletal: Reports ambulatory dysfunction, trouble walking and weakness, but denies leg swelling and pain. Skin: Denies Raynaud's, history of shingles and tattoo. Neurological: Reports ambulatory dysfunction and numbness/tingling but denies dizziness and tremor. Psychiatric: Reports stress, but denies anxiety and insomnia. Hematologic/Lymphatic: Reports anemia, but denies bleeding/bruising tendency and past transfusion. Reviewed and updated. PAST MEDICAL HISTORY: Advance Care Plan: No Advance Directives Effective Date: 10/27/2021 Past Medical History: Medical Problems: Diabetes, Enlarged Prostate, Pernicious Anemia, B12 deficiency nocturia -? urinary tract disease? Accidents: Fracture - T-12 COMP FRACTURE - [facility] [place] 10/30/19 Other - SHOULDER & KNEE 05/30 Surgical Hx: Detached Retina - 2021 [facility] / EYE Cataracts - (2021) EYE Laser Surgery - (08/2022) TO REMOVE SCAR TISSUE / LEFT EYE? Coloscopy - BIOPSIED STOMACH FOUND OUT PATIENT HAS PERNICIOUS ANEMIA? lumbar fusion for fx - (10/2019) T12? endoscopy - (04/2023) Anesthesia Complications: None Assistive Devices: Walker, Cane, Glasses Reviewed and updated. SOCIAL HISTORY: Social History: Marital: .Occupation: Unemployed.Work Status: Injured - OFF WORK SINCE .Hand Dominance: Right-handed. Personal Habits:? Cigarette Use: Never Smoked Cigarettes.Smokeless Tobacco: Never Used Smokeless Tobacco.E-Cigarette Use: Never used.Alcohol: Denies use.Drug Use: Denies Use.Enjoy Exercising: Exercises 1-3 x/month. Reviewed and updated. VITALS: Ht: 76.6 Wt: 355lb 0oz Wt k.028 BMI: 42.5 BP: 156/88 Pulse: 98 Resp: 20 T: 97.8 T: 36.6C Pain Level: 7 O2SatR: 94 ALLERGIES: Gabapentin? MEDICATIONS: Ferrous Sulfate 325 (65 Fe) MG 1 po tid, Folic Acid 1 mg 1 by mouth every day PRE-OP EXAM:? General appearance:NORMAL? ? ? Other: Eyes: Conjunctivae and lids: NORMAL? Pupils: ERR Ears, Nose, Mouth, and Throat: NORMAL? Other: Inspection of lips, teeth and gums: NORMAL? ?Other: Neck: Examination of neck: no masses noted. Respiratory: Assessment of respiratory effort: NORMAL? ?Other: ?Auscultation of lungs: clear to auscultation no wheezes, rhonchi or rales. Cardiovascular:? Auscultation of heart: regular rate and rhythm, positive systolic murmur PHYSICAL EXAMINATION: Patient does walk with an antalgic gait with use of walker.? Patient does have valgus alignment with the knee.? Moderate effusion.? He has tenderness to palpation of the medial and lateral joint line.? He has valgus deformity which is partially correctable.? Range of motion 0 extension to 105 flexion.? Sensation intact to light touch.? He does have lower leg skin discoloration from probable venous insufficiency. IMAGING STUDIES: Previous x-rays of the left knee reveal valgus alignment with lateral joint space narrowing, subchondral sclerosis, osteophyte formation consistent with severe stage IV bone on bone erosive osteoarthritis IMPRESSION: 1.? Severe left knee osteoarthritis with valgus deformity 2.? Type 2 diabetes mellitus: A1c 6.7 3.? Benign prostatic hyperplasia 4.? Pernicious anemia 5.? Vitamin B12 deficiency 6.? Nocturia 7.? Low back pain with neurologic deficit affecting right lower extremity 8.? Morbid obesity with BMI 42.5 PLAN: Dr. Daryl Luz did discuss and review with the patient all treatment options including surgical versus nonsurgical options.? Patient does wish to proceed with the above-stated procedure.? Potential risks, benefits, and complications of the procedure were discussed in detail including but not limited to , infection, nerve and blood vessel damage, persistent pain, numbness, tingling, paresthesias, blood clot, pulmonary embolism, and requirement for possible further surgery.? The patient expressed full understanding and has no further questions for the doctor.? Patient does agree to proceed with the above-stated procedure and has signed the surgery consent form. POST-OP MEDICATION PLAN: Pain Medications:? Dr. Daryl Luz will initiate postoperative pain regimen at the hospital.? Due to patient's elevated BMI greater than 40.0 we will also use doxycycline postoperatively.? Discussed with the patient potential side effects including hypersensitivity to some light and should take appropriate precaution.? Also recommended probiotic while on antibiotic.? Patient will cont inue with his ferrous sulfate and folic acid pre-and postoperatively. Risk Assessment and Prediction Tool (RAPT) Score = 12/21 DVT Prophylaxis:? Aspirin 81 mg twice daily for 4 weeks postoperatively.? Denies past history of DVT or pulmonary embolism This dictation was created using voice recognition software. Phonetic and/or grammatical errors may exist. ___? I have re-examined the patient.? There are no clinical changes since date of exam. ___? See progress notes for changes. ___? Dictated on admission Date: ? ? ?Time: Signature:
[2023-08-25] VITALS (19 sets, daily range): BP systolic 130–197; BP diastolic 64–93; PULSE 84–114; RESP 16–18; TEMP 36.2–36.9; O2SAT 88–98; BMI 41.8
--- NOTE | 2023-08-25 02:03 | RAD_ITS ---
STUDY: X-RAY - LEFT KNEE REASON FOR EXAM: Male, 62 years old. Post op -- AP and Lateral xray of operative knee in PACU TECHNIQUE: 2 view(s) of the knee. COMPARISON: None. FINDINGS: Normal visualized distal femur. Normal visualized proximal tibia and fibula. Normal proximal tibiofibular articulation. The patient is status post total knee replacement. There is good alignment. Postoperative soft tissue changes. RAD/Knee 1 or 2 Views IMPRESSION: Status post total knee replacement. There is good alignment. Postoperative soft tissue changes. Electronically Signed: Luis Manuel Nelson MD at 14:24 EST ,
--- OUTSIDE RECORDS SUMMARY | 2023-08-25 09:02 | XMS RPT_ITS | CCD ---
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 Name Role Phone No, Physician Primary Care Provider UnavailLINDA Henry Attending Unavailable LINDA ALBERTS Referring Unavailable NO, PHYSICIAN Primary Care Unavailable Black, Helga Unavailable Unavailable None, No PCP Unavailable Unavailable Linda Alberts L Unavailable Unavailable Michelet Avendaño Unavailable Unavailable [...] Unavailable Unavailable Cade Valle Unavailable Unavailable Dew VP RESPIRATORY, Emeterio Unavailable Unavailable Kavitha VP RESPIRATORYMichelet Unavailable Unavailable Luecht PT, Christopher Unavailable Unavailable None, No PCP Unavailable Unavailable Unavailable Unavailable Unavailable Primary Care Provider UnavailAngelic Muller Primary Care Provider Angelic Monsalve Primary Care Provider [phone] DELTA GROVES Attending Unavailable ANGELIC MONSALVE Primary [...] Care Unavailable BRADLY SANDERS Attending Unavailable JOLLIFF, NAGELIC VINCENT Primary Care Unavailable YUAN, WILMER Referring Unavailable BRADLY SANDERS Attending Unavailable JOLLIFF, ANGELIC VINCENT Primary Care Unavailable YUAN, WILMER Attending Unavailable JOLLIFF, ANGELIC VINCENT Primary Care Unavailable Allergies Allergy Classification Reported Allergen(s) Allergy Type Date of Onset Reaction(s) Facility Latex (20 sources) natural latex rubber Substance Allergy [facility] Work Phone: (12 sources) natural latex rubber; Translations: [LATEX] Allergy to substance (finding) 9 [facility] Other [facility] (20 sources) Latex Propensity to adverse reactions 9 [facility] (18 sources) gabapentin; Translations: [GABAPENTIN] Drug Allergy 2 Mental Status Change [facility] Medications Current Medications Medication Drug [...] Non-Invasive [address] ALFA MASON MD [facility] 05-24-2023 11:36-0500 Heart rate 85 /min DR ALFA MASON MD [facility] 05-24-2023 11:36-0500 Respiratory rate 18 /min DR ALFA MASON MD [facility] 05-24-2023 11:36-0500 Systolic Blood Pressure Non-Invasive [address] ALFA MASON MD [facility] 05-24-2023 11:26-0500 Diastolic Blood Pressure Non-Invasive [address] ALFA MASON MD [facility] 05-24-2023 11:26-0500 Heart rate 88 /min DR ALFA MASON MD [facility] 05-24-2023 11:26-0500 Respiratory rate 14 /min DR ALFA MASON MD [facility] 05-24-2023 11:26-0500 Systolic Blood Pressure Non-Invasive [address] ALFA MASON MD [facility] 05-24-2023 11:20-0500 Diastolic Blood Pressure Non-Invasive [address] ALFA MASON MD [facility] 05-24-2023 11:20-0500 Heart rate 86 /min DR ALFA MASON MD [facility] 05-24-2023 11:20-0500 Respiratory Rate - Anes 16 br/min DR ALFA MASON MD [facility] 05-24-2023 11:20-0500 Systolic Blood Pressure Non-Invasive [address] ALFA MASON MD [facility] 05-24-2023 11:15-0500 Respiratory Rate - Anes 13 br/min DR ALFA MASON MD [facility] 05-24-2023 11:10-0500 Respiratory Rate - Anes 0 br/min DR ALFA MASON MD [facility] 05-24-2023 10:12-05[address] Pressure Cuff Size DR ALFA MASON MD [facility] 05-24-2023 10:12-[address] ALFA MASON MD [facility] 05-24-2023 10:12-[address] ALFA MASON MD [facility] 05-24-2023 10:12-0500 Body height 195.[address] ALFA MASON MD [facility] 05-24-2023 10:12-0500 Body temperature 98.24 [degF] DR ALFA MASON MD [facility] 05-24-2023 10:12-0500 Body weight 154.[address] ALFA MASON MD [facility] 05-24-2023 10:12-0500 Body weight 40.38 kg/m2 DR ALFA MASON MD [facility] 05-24-2023 10:12-0500 Heart rate 81 /min DR ALFA MASON MD [facility] 05-24-2023 10:12-0500 Respiratory rate 16 /min DR ALFA MASON MD [facility] 03-24-2022 09:25-0400 Diastolic blood pressure 78 mm[Hg] Bradly Sanders MD Work Phone: [facility] 03-24-2022 09:25-0400 Heart rate 80 /min Bradly Sanders MD Work Phone: [facility] 03-24-2022 09:25-0400 Respiratory rate 14 /min Bradly Sanders MD Work Phone: [facility] 03-24-2022 09:25-0400 SaO2% (BldA) [Mass fraction] 93 % Bradly Sanders MD Work Phone: [facility] 03-24-2022 09:25-0400 Systolic blood pressure 142 mm[Hg] Bradly Sanders MD Work Phone: [facility] 03-24-2022 09:15-0400 Body temperature 97.9 [degF] Bradly Sanders MD Work Phone: [facility] 03-24-2022 07:07-0400 Body height 198.1 cm Bradly Sanders MD Work Phone: [facility] 03-24-2022 07:07-0400 Body weight 163.75 kg Bradly Sanders MD Work Phone: [facility] 01-14-2022 08:42-0400 Body height 198.1 cm Delta Benito KINESEOLOGIST.PHARMACY GRADUATE INTERN Work Phone: [facility] 01-14-2022 08:42-0400 Body weight 163.93 kg Delta Benito KINESEOLOGIST.PHARMACY GRADUATE INTERN Work Phone: [facility] 01-14-2022 08:42-0400 Respiratory rate 18 /min Delta Benito KINESEOLOGIST.PHARMACY GRADUATE INTERN Work Phone: [facility] 09-02-2021 08:38-0500 Body height 195.58 cm No PCP None [facility] 300 Work Phone: 09-02-2021 08:38-0500 Body mass index (BMI) [Ratio] 40.91 kg/m2 No PCP None [facility] Work Phone: 09-02-2021 08:38-0500 Body surface area Derived from formula 2.82 m2 No PCP None [facility] 300 Work Phone: 09-02-2021 08:38-0500 Body weight 156.49 kg No PCP None [facility] Work Phone: 04-23-2021 11:25-0400 Body height 195.58 cm No PCP None [facility] Work Phone: 04-23-2021 11:25-0400 Body mass index (BMI) [Ratio] 40.94 kg/m2 No PCP None [facility] 300 Work Phone: 04-23-2021 11:25-0400 Body surface area Derived from formula 2.82 m2 No PCP None [facility] 300 Work Phone: 04-23-2021 11:25-0400 Body temperature 97.3 [degF] No PCP None [facility] 300 Work Phone: 04-23-2021 11:25-0400 Body weight 156.61 kg No PCP None [facility] 300 Work Phone: 04-23-2021 11:25-0400 Diastolic blood pressure 85 mm[Hg] No PCP None [facility] 300 Work Phone: 04-23-2021 11:25-0400 Heart rate 105 /min No PCP None [facility] 300 Work Phone: 04-23-2021 11:25-0400 Systolic blood pressure 161 mm[Hg] No PCP None [facility] Work Phone: 03-20-2021 09:13-0400 Body height 195.58 cm No PCP None [facility] 300 Work Phone: 03-20-2021 09:13-0400 Body mass index (BMI) [Ratio] 40.32 kg/m2 No PCP None [facility] 300 Work Phone: 03-20-2021 09:13-0400 Body surface area Derived from formula 2.8 m2 No PCP None [facility] 300 Work Phone: 03-20-2021 09:13-0400 Body temperature 97.3 [degF] No PCP None [facility] 300 Work Phone: 03-20-2021 09:13-0400 Body weight 154.22 kg No PCP None [facility] 300 Work Phone: 03-20-2021 09:13-0400 Diastolic blood pressure 68 mm[Hg] No PCP None [facility] 300 Work Phone: 03-20-2021 09:13-0400 Systolic blood pressure 137 mm[Hg] No PCP None [facility] Work Phone: 02-25-2021 10:37-0400 Body height 195.58 cm No PCP None [facility] Work Phone: 02-25-2021 10:37-0400 Body mass index (BMI) [Ratio] 39.96 kg/m2 No PCP None [facility] 300 Work Phone: 02-25-2021 10:37-0400 Body surface area Derived from formula 2.79 m2 No PCP None [facility] 300 Work Phone: 02-25-2021 10:37-0400 Body temperature 97.3 [degF] No PCP None [facility] 300 Work Phone: 02-25-2021 10:37-0400 Body weight 152.86 kg No PCP None [facility] 300 Work Phone: 02-25-2021 10:37-0400 Diastolic blood pressure 84 mm[Hg] No PCP None [facility] Work Phone: 02-25-2021 10:37-0400 Heart rate 86 /min No PCP None [facility] 300 Work Phone: 02-25-2021 10:37-0400 Systolic blood pressure 137 mm[Hg] No PCP None [facility] Work Phone: 01-24-2021 11:46-0400 Body height 195.58 cm No PCP None [facility] 300 Work Phone: 01-24-2021 11:46-0400 Body mass index (BMI) [Ratio] 38.94 kg/m2 No PCP None [facility] 300 Work Phone: 01-24-2021 11:46-0400 Body surface area Derived from formula 2.76 m2 No PCP None [facility] Work Phone: 01-24-2021 11:46-0400 Body temperature 97.7 [degF] No PCP [facility] Work Phone: 01-24-2021 11:46-0400 Body weight 148.95 kg No PCP None [facility] Work Phone: 01-24-2021 11:46-0400 Diastolic blood pressure 80 mm[Hg] No PCP None [facility] Work Phone: 01-24-2021 11:46-0400 Systolic blood pressure 132 mm[Hg] No PCP None [facility] Work Phone: 01-03-2021 11:11-0400 Body height 195.58 cm [facility] Work [facility]: 01-03-2021 11:11-0400 Body mass index (BMI) [Ratio] 38.21 kg/m2 No PCP [facility] Work Phone: 01-03-2021 11:11-0400 Body surface area Derived from formula 2.74 m2 No PCP [facility] Work Phone: 01-03-2021 11:11-0400 Body temperature 97.8 [degF] No PCP [facility] Work Phone: 01-03-2021 11:11-0400 Body weight 146.17 kg No [facility] Work Phone: 01-03-2021 11:11-0400 Diastolic blood pressure 90 mm[Hg] No [facility] Work Phone: 01-03-2021 11:11-0400 Systolic blood pressure 162 mm[Hg] No [facility] Work Phone: 12-03-2020 14:25-0400 Body height 195.58 cm No PCP None [facility] 300 Work Phone: 12-03-2020 14:25-0400 Body mass index (BMI) [Ratio] 37.24 kg/m2 No PCP None [facility] 300 Work Phone: 12-03-2020 14:25-0400 Body surface area Derived from formula 2.71 m2 No PCP None [facility] 300 Work Phone: 12-03-2020 14:25-0400 Body temperature 96.9 [degF] No PCP None [facility] 300 Work Phone: 12-03-2020 14:25-0400 Body weight 142.43 kg No PCP None [facility] 300 Work Phone: 12-03-2020 14:25-0400 Diastolic blood pressure 88 mm[Hg] No PCP None [facility] 300 Work Phone: 12-03-2020 14:25-0400 Systolic blood pressure 150 mm[Hg] No PCP None [facility] 300 Work Phone: 11-22-2020 13:06-0400 Body height 195.58 cm Cade Valle [facility] Work Phone: 11-22-2020 13:06-0400 Body mass index (BMI) [Ratio] 36.88 kg/m2 Cade Valle [facility] Work Phone: 11-22-2020 13:06-0400 Body surface area Derived from formula 2.7 m2 Cade Valle [facility] Work Phone: 11-22-2020 13:06-0400 Body temperature 97.5 [degF] Cade Valle [facility] Work Phone: 11-22-2020 13:06-0400 Body weight 141.08 kg Cade Valle [facility] Work Phone: 11-22-2020 13:06-0400 Diastolic blood pressure 88 mm[Hg] Cade Valle [facility] Work Phone: 11-22-2020 13:06-0400 Systolic blood pressure 150 mm[Hg] Cade Valle [facility] Work Phone: 11-22-2020 11:06-0400 Body height 195.58 cm No PCP None [facility] 300 Work Phone: 11-22-2020 11:06-0400 Body mass index (BMI) [Ratio] 36.88 kg/m2 No PCP None [facility] 300 Work Phone: 11-22-2020 11:06-0400 Body surface area Derived from formula 2.7 m2 No PCP None [facility] 300 Work Phone: 11-22-2020 11:06-0400 Body temperature 97.5 [degF] No PCP None [facility] 300 Work Phone: 11-22-2020 11:06-0400 Body weight 141.08 kg No PCP None [facility] 300 Work Phone: 11-22-2020 11:06-0400 Diastolic blood pressure 88 mm[Hg] No PCP None [facility] 300 Work Phone: 11-22-2020 11:06-0400 Systolic blood pressure 150 mm[Hg] No PCP None [facility] 300 Work Phone: 10-25-2020 13:02-0400 Body height 195.58 cm Cade Valle DO [facility] Work Phone: 10-25-2020 13:02-0400 Body mass index (BMI) [Ratio] 36.29 kg/m2 Cade Valle DO [facility] 300 Work Phone: 10-25-2020 13:02-0400 Body surface area Derived from formula 2.68 m2 Cade Valle DO [facility] 300 Work Phone: 10-25-2020 13:02-0400 Body temperature 97.3 [degF] Cade Valle DO [facility] 300 Work Phone: 10-25-2020 13:02-0400 Body weight 138.8 kg Cade Valle DO [facility] 300 Work Phone: 10-25-2020 13:02-0400 Diastolic blood pressure 83 mm[Hg] Cade Valle DO [facility] 300 Work Phone: 10-25-2020 13:02-0400 Systolic blood pressure 149 mm[Hg] Cade Valle DO [facility] 300 Work Phone: 11-30-2019 09:52-0400 BMI (Body Mass Index) 36.75 kg/m2 Hardy Clark [facility] 11-30-2019 09:52-0400 Body weight 144.24 kg Hardyairam Clark [facility] 11-30-2019 09:52-0400 Height 198.1 cm Hardy Clark [facility] Encounters Encounter Date Encounter Type Care Provider Facility Start: 07-02-2023 End: 07-02-2023 ambulatory ANGELIC MNOSALVE Facility:[facility] Start: 06-24-2023 End: 06-24-2023 ambulatory MERI VIEIRA Facility:[facility] Start: 06-24-2023 End: 06-24-2023 Office outpatient [...] DTaP,Tdap,Td Vaccine (2 - Td or Tdap) [facility] Start: 04-01-2024 Glaucoma screening Dilated Retinal Exam [facility] Start: 04-01-2024 Hepatitis C antibody, confirmatory test Dilated Retinal Exam [facility] Start: 01-08-2024 End: 06-16-2024 OCT [...] of both eyes Expected: 01/08/2024, Expires: 06/16/2024 [facility] Work Phone: Immunizations Immunization Date Immunization Notes Care Provider Fa yael 05-18-2022 influenza virus vaccine, unspecified formulation Meri Haywood MD Work Phone: [facility] 10-11-2020 Pfizer-BioNTech COVID-19 Vacc 30 MCG/0.3ML Intramuscular Suspension No PCP None [facility] 300 Work Phone: 09-20-2020 Pfizer-BioNTech COVID-19 Vacc 30 MCG/0.3ML Intramuscular Suspension No PCP None [facility] 300 Work Phone: 04-16-2020 influenza, seasonal, injectable No PCP None [facility] 300 Work Phone: 04-16-2020 zoster vaccine recombinant No PCP None [facility] 300 Work Phone: 07-23-2015 tetanus toxoid, redu veronica diphtheria toxoid, and acellular pertussis vaccine, adsorbed No PCP None [facility] 300 Work Phone: Payers Date Payer Category Payer Private Health Insurance [id number] 2021 Medicaid [facility] MED[facility] [id number] 2021-Present [phone] [address] [place] [address] Medicaid [id number] 2022 Medicaid [id number] 2021 Medicaid [id number] 2019 Worker's Compensation [employer] [id number] 2019-Present [id number] 2019 Worker's Compensation [phone] Worker's Compensation [employer] [id number] 2019-Present [id number] 1958 Unknown [id number] 903 1958 Unknown [id number] 903 1958 Unknown [id number] 903 1958 Unknown [id number] 903 1958 Unknown [id number] 903 1958 Unknown [id number] 903 1958 Unknown [id number] 903 1958 Unknown [id number] 903 1958 Unknown [id number] 627 Unknown Social History Date Type Detail [facility] Start: 1960 Sex Assigned At Not on file [facility] Start: 11-30-2019 End: 03-25-2022 Tobacco smoking status NHIS Never smoker [facility] Work Phone: Start: 11-30-2019 Alcohol intake Ex-drinker (finding) [facility] Start: 09-19-2021 End: 03-25-2022 Exposure to SARS-CoV-2 (event) Not sure [facility] Start: 11-30-2019 End: 03-25-2022 Tobacco use and exposure Never used [facility] Start: 06-17-2020 End: 04-01-2023 Non-smoker Non-smoker [facility] Work Phone: Start: 09-29-2021 End: 04-01-2023 Alcohol intake Current non-drinker of alcohol (finding) [facility] Start: 10-31-2019 History SDOH Financial 3 [facility] Start: 10-31-2019 History SDOH Food Worry 1 [facility] Start: 10-31-2019 History SDOH Transpo rt Med 2 [facility] Start: 06-17-2020 End: 04-01-2023 Tobacco use panel [facility] Work Phone: How hard is it for y ou to pay for the very basics like food, housing, medical care, and heating Somewhat hard [facility] Work Phone: (I/We) worried wheth er (my/our) food would run out before (I/we) got money to buy more. Never true [facility] Work Phone: In the past 12 month s, has lack of transportation kept you from medical appointments or from getting medications? No [facility] Work Phone: Tobacco smoking status No Smokin g Status Entered [facility] Sex Assigned At Male [facility] NEGATED: Highlighted row - [facility] Work Phone: Medical Equipment Procedure Code Equipment Code Equipment Origin al Text Equipment Identifier Dates Gas Ispan Constellation Intraocular Vision System [id number] 125gm - [id number] Start: 07-16-2021 Sleeve 2.1mm 1mm Silicone 70mm Retinal Round Sterile - [id number] Start: 07-16-2021 Strip Silicone 125x3.5x.75mm Scleral Style 41 - [id number] Start: 07-16-2021 Lens Acrysof Ult rasert +14 Diopter Acrylic Iol 1 Piece Foldable Uv Blue - [id number] Start: 03-24-2022 Functional Status Date Assessment Result Facility 05-24-2023 Functional Status Awake Lemuel Ho kerri [facility] 05-24-2023 Functional Status Lemuel Ho kerri [facility] NEGATED: Highlighted row Functional performance Functional status health issues are not documented [facility] Work Phone: Mental Status Date Assessment Result Facility NEGATED: Highlighted row Cognitive function [Interpretation] Cognitive status health issues are not documented [facility] Work Phone: Clinical Notes 10-31-2019 to 07-02-2023 Meri Vieira V, MD - 06/24/2023 9:20 AM EST Note Date & Type Note Facility 07-02-2023 Note HNO ID: [id number] Author: Zachary Hogan APRN.PHARMACY GRADUATE INTERN Service: ? Author Type: Nurse Practitioner Type: [...] are equal, round, (more content not included)... [facility] 06-24-2023 Note HNO ID: [id number] Author: Meri Vieira V, MD Service: ? [...] fluorouracil, tamsulosin, ferrous sulfate, ketorolac, prednisolone acetate, swdyayjt-cerljnxyn-kafvwqqyydfdx, atropine, ibuprofen, aspirin, atorvastatin, cyanocobalamin, gabapentin, lisinopril, metformin, cholecalciferol (vitamin d3), and guaifenesin. ALLERGIES Allergen Reactions Gabapentin Mental Status Change Pt also had hallucinations Latex I agree with the Chief Complaint, ROS, and Past Histories independently gathered by the clinical software support engineer and the remaining scribed note accurately describes my personal service to the patient. Meri Vieira MD Dermatology [facility] 06-24-2023 History of Present illness Narrative PROGRESS [...] fluorouracil, tamsulosin, ferrous sulfate, ketorolac, prednisolone acetate, iobozsoo-ltgfakaro-opkxecimzdpja, atropine, ibuprofen, aspirin, atorvastatin, cyanocobalamin, gabapentin, lisinopril, metformin, cholecalciferol (vitamin d3), and guaifenesin. ALLERGIES Allergen Reactions Gabapentin Mental Status Change Pt also had hallucinations Latex I agree with the Chief Complaint, ROS, and Past Histories independently gathered by the clinical software support engineer and the remaining scribed note accurately describes my personal service to the patient. Meri Vieira MD Dermatology documented in this encounter [facility] ADMISSION HISTORY AN D PHYSICIAL CHIEF COMPLAINT: [...] FAMILY HISTORY: SOCIAL HISTORY: PHYSICAL EXAM: VITALS: [id number](kg) 05/24 10:1236.8--[id number]--[id number]/15793.5 24 Hr Tmax: 36.8 at 05/24 10:12 [...] changes to the H&P unless noted below. [facility] 11-13-2023 Hospital Discharge instructions Patient Education [...] 03/24/2005 Document Revised: 10/13/2018 Document Reviewed: 10/13/2018 NPC III Patient Education 2020 [employer]. 05/24/2023 11:37:09 Colonoscopy, Adult, Care After Colonoscopy, [...] a slower pace than normal. ?Eat soft, sumy-rg-jsdtmi foods. Take nizp-vao-wnxngzs or prescription medicines only as told by [...] 02/09/2005 Document Revised: 04/20/2018 Document Reviewed: 09/08/2016 NPC III Patient Education 2020 [employer]. 05/24/2023 11:37:03 Monitored Anesthesia Care, Care After [...] before eating solid foods. General instructions Take fncz-poh-xjpfpjv and prescription medicines only as told by [...] 10/18/2016 Document Revised: 09/26/2018 Document Reviewed: 10/18/2016 NPC III Patient Education [employer]. Follow Up Care 04/14/2023 10:04:53 With:ALFA MASON MD Address: [address] [place] [address] [phone] When: Unknown Comments:Follow-up as needed [facility] 11-13-2023 Summary of episode note Discharge Instructions Thank you for allowing [facility] to assist you with your healthcare needs. The following is importantdischarge information regarding your hospital visit. Your Care Team ANGELIC MONSALVE MD Your Diagnosis Colonoscopy What to do next Follow Up Appointments Follow Up with ALFA MASON MD When Why: Follow-up as needed Where: [address] [place] [address] [phone] The Following Activity and Diet Have Been [...] such as: ? Familial adenomatous polyposis. ? Roasles syndrome. ? Turcot syndrome. ? Peutz Jeghers [...] 03/24/2005 Document Revised: 10/13/2018 Document Reviewed: 10/13/2018 NPC III Patient Education 2020 [employer]. Colonoscopy, Adult, Care After This sheet gives [...] slower pace than normal. ? Eat soft, tikc-bw-ccienz foods. Take eodv-qvc-okucvgc or prescription medicines only as told by [...] 02/09/2005 Document Revised: 04/20/2018 Document Reviewed: 09/08/2016 NPC III Patient Education 2020 [employer]. Monitored Anesthesia Care, Care After These instructions [...] before eating solid foods. General instructions Take kbwk-uqr-btlxgnf and prescription medicines only as told by [...] 10/18/2016 Document Revised: 09/26/2018 Document Reviewed: 10/18/2016 NPC III Patient Education 2020 [employer]. Additional Information VACCINATE! IT SAVES LIVES! Members of the community who have not yet received the COVID-19 vaccine and would like to receive it can visit one of [facility] vaccine clinics. There are many vaccine clinic locations within the [facility]. For locations and available times, please visit [email or web address] It is important to note that some COVID mobile vaccine clinics are held outdoors and may be canceled in rainy or stormy conditions. To learn more about pediatric vaccinations (ages 5-11), we invite you to visit the [facility] webpage. [email or web address] learn more about the COVID-19 vaccine, we invite you to visit the CDC website for a list of frequently asked questions.https://www.cdc.gov/coronavirus/2019-ncov/vaccines/faq.html [facility] Patient Portal Access Instructions: Stay connected with your healthcare team and access your personal medical information anytime with the [employer] Patient Portal. Please follow the directions below to create your [employer] account: 1.Access the email account you provided upon registration to the hospital/physician office.2.Look for an invitation email from [facility].3.Open the email and access the invitation link: AcceptInvitation to [facility].4.Fill in the required wylie to create your account. To access your account, visit [email or web address]. Click the blue button labeled Access Patient [...] who you will allowto register on the [facility] Patient Portal for access to your information. You can also access the [facility] Patient Portal on the [facility] kan. Simply click on Patient Portal and then log into your account. If you would like to receive a full copy of your medical records, please contact the [facility] Medical Records Department by calling [phone], Wednesday through Wednesday between 8 a.m. and [...] Call your local pharmacy or go to [email or web address] to find one close to you.3.Make use of household items: Use cat litter or old coffee grounds to dispose medications if other options arenot available. Mix your drugs with these household products, seal them in an airtight container andthrow it into the garbage. Call [facility]: [phone] to be sure your drugs can be [...] aware that I should contact my doctor. Patient/Bow Stapler Signature: Date/Time: Relationship to Patient: Witness Name/Signature: Date/Time: [facility]11-13-2023 Anesthesiology Consult note Patient: KHOA CONNORS Age: 62 years Sex: Male : 1960 Associated Diagnoses: None Author: DUSTY CABRERA KINESEOLOGIST-DRAFTER REFRIGERATION Assessment Postanesthesia assessment Vitals: Vital signs from [...] by DUSTY CABRERA on 05/24/2023 11:22 AM [facility]11-13-2023 Anesthesiology Consult note Patient: KHOA CONNORS [...] Signs(last 24 hrs) Last Charted Heart Rate Ecqmlgqkv22 bpm (MAY 24 10:45) Resp Rate 16 br/min (MAY 24 10:12) BEN375 mmHg (MAY 24 10:44) GPG840 mmHg (MAY 24 10:44) BMI40.38 (MAY 24 10:12) Measurements from flowsheet : Measurements 05/24/2023 10:12 EST Height 195.6 cm Admission Weight 154.5 kg Weight Method Stated Nipomo Body Weight 89.12 kg BSA Admission 2.8 [...] Lab results 05/24/2023 10:49 EST SN - PR - Medication simethicone 40 mg/0.6 mL Liquid 30mL SN - PR - Route of Administration Endoscopic SN - PR - By (Single) SN - PR - By (Single) SN - PR - Time Administered 05/24/2023 10:49 05/24/2023 10:46 [...] Respiratory Rate - Anes 0 br/min br/min Ivor History and Physical 05/24/2023 10:35 EST Respiratory [...] Surgeon SN - CAt - Role Performed Computer Systems Software Architect 1 SN - CAt - Role Performed Women'S Studies Lecturer SN - CAt - Role Performed DRAFTER REFRIGERATION 05/24/2023 10:24 EST Lactated Ringers Injection Begin [...] Person #1 We May Share PHI [place] [phone] Designated Person #1 Relationship Spouse Height 195.6 cm Admission Weight 154.5 kg Weight Method Stated Nipomo Body Weight 89.12 kg BSA Admission 2.8 [...] Method Explanation, Printed materials Preferred Spoken Language Costa Rican Preferred Written Language Costa Rican Information Given by Patient Patient's Current Physicians [...] Note-Nursing Procedure/Therapy Intake . Assessment and Plan [place] Society of Anesthesiologists (ASA) physical status classification: Class III. Anesthetic Preoperative Plan Anesthetic technique: MAC. Informed consent: signed by patient. Digitally Signed by DUSTY CABRERA on 05/24/2023 10:55 AM [facility]11-13-2023 Note [place] ADMISSION HISTORY AND PHYSICIAL CHIEF COMPLAINT: HISTORY [...] FAMILY HISTORY: SOCIAL HISTORY: PHYSICAL EXAM: VITALS: MsmamtQqucIPXzicmTCJbT1JQD5FlbkGk(kg) 05/24 10:1236.8--217177--60/09684.5 24 Hr Tmax: 36.8 at 05/24 10:12 [...] ALFA MASON MD on 05/24/2023 10:45 AM [facility]10-31-2023 NoteHNO ID: [id number] Author: Meri Vieira V, MD Service: ? [...] fluorouracil, tamsulosin, ferrous sulfate, ketorolac, prednisolone acetate, nfvdrgsr-mlkxiwfzn-ksrqmjlnxexqj, atropine, ibuprofen, aspirin, atorvastatin, cyanocobalamin, gabapentin, lisinopril, metformin, cholecalciferol (vitamin d3), and guaifenesin. ALLERGIES Allergen Reactions Gabapentin Mental Status Change Pt also had hallucinations Latex I agree with the Chief Complaint, ROS, and Past Histories independently gathered by the clinical software support engineer and the remaining scribed note accurately describes my personal service to the patient. [facility] History of Present illness Narrative* Meri Vieira [...] fluorouracil, tamsulosin, ferrous sulfate, ketorolac, prednisolone acetate, rdjoqnzm-fflnrnuar-oekwltvdnyego, atropine, ibuprofen, aspirin, atorvastatin, cyanocobalamin, gabapentin, lisinopril, metformin, cholecalciferol (vitamin d3), and guaifenesin. ALLERGIES Allergen Reactions Gabapentin Mental Status Change Pt also had hallucinations Latex I agree with the Chief Complaint, ROS, and Past Histories independently gathered by the clinical software support engineer and the remaining scribed note accurately describes my personal service to the patient. Meri Vieira MD Dermatology documented in this encounterUniversity Hospitals [facility]09-21-2023 NoteHNO ID: [id number] Author: Wilmer Canales MD, PhD Service: ? [...] blood sugar control and close follow-up with PCP/vp -stressed importance of following up with retina and getting dilated exam due to possible progression of diabetic retinopathy Lattice degen OU - RD warnings Epiretinal membrane left eye -will monitor/observe Posterior chamber intraocular lens (PCIOL) left eye (03/24/22 Mikie) -now with posterior capsular opacity (PCO) -s/p YAG left eye (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 Wilmer Canales [facility]06-15-2023 NoteHNO ID: [id number] Author: Wilmer Canales MD, PhD Service: ? [...] blood sugar control and close follow-up with PCP/vp Amber more OU - RD warnings Epiretinal [...] all of its relevant components. Wilmer Canales [facility]06-15-2023 History of Present illness Narrative* Wilmer [...] blood sugar control and close follow-up with PCP/vp Amber more OU - RD warnings Epiretinal [...] components. Wilmer Canales MD documented in this encounterUniversity Hospitals Par[facility]05-04-2023 NoteHNO ID: [id number] Author: Wilmer Canales MD, PhD Service: ? [...] blood sugar control and close follow-up with PCP/vp -not improving with steroid drops, discussed starting [...] all of its relevant components. Wilmer Canales [facility]05-04-2023 Instructions* Patient Instructions* Wilmer Canales MD, [...] of your eyelid moving out toward your judaism. Use a baby shampoo (any No Tears formulation) diluted with water. Alternatively you can use lqvnzp-vat-mblleth cleaning formulation called Sterilid or Ocusoft lid [...] dry heat. EXAMPLES: Thermalon Dry Eye Compress (Door 6, approx $10) [employer] Anti-Stress Microwavable Sinus Pillow ([employer], approx $15) RESOURCES: http://www.TastemakerX/encyclopedia/hotcompresses.html This website contains patient information regarding warm compresses and includes a recipe to makeyour own using uncooked rice and a nylon stocking. documented in this encounterUniversity Hospitals Parma [facility] Center05-04-2023 History of Present illness Narrative* [...] blood sugar control and close follow-up with PCP/vp -not improving with steroid drops, discussed starting [...] components. Wilmer Canales MD documented in this encounterUniversity Hospitals [facility] Center03-16-2023 NoteHNO ID: [id number] Author: Wilmer Canales MD, PhD Service: ? [...] blood sugar control and close follow-up with PCP/vp Lattice degen OU - RD warnings Epiretinal [...] all of its relevant components. Wilmer Canales [facility]03-16-2023 Instructions* Patient Instructions* Wilmer Canales MD, PhD - 09/24/2022 12:56 PM EDT Increase ketorolac to four times a day left eye Increase Predforte to four times a day left eye Call [phone] with any questions documented in this encounterUniversity Hospitals Parma [facility] Center03-16-2023 History of Present illness Narrative* [...] blood sugar control and close follow-up with PCP/vp Lattice degen OU - RD warnings Epiretinal [...] components. Wilmer Canales MD documented in this encounterUniversity Hospitals Parma [facility] Center02-22-2023 NoteHNO ID: [id number] Author: Bradly Sanders MD Service: ? Author [...] all of its relevant components. Bradly Sanders [facility]02-22-2023 History of Present illness Narrative* Bradly [...] components. Bradly Sanders MD documented in this encounterUniversity Hospitals [facility] Center02-07-2023 NoteHNO ID: [id number] Author: Bradly Sanders MD Service: ? Author [...] all of its relevant components. Bradly Sanders, [facility]02-07-[facility] History of Present illness Narrative* Bradly [...] components. Bradly Sanders MD documented in this encounterUniversity Hospitals Parma [facility] Center02-07-2023 Instructions* Patient Instructions* Bradly Sanders MD - 08/18/2022 3:11 PM EST Images from the original note were not included. documented in this encounterUniversity Hospitals Parma [facility] Center01-19-2023 NoteHNO ID: [id number] Author: Wilmer Canales MD, PhD Service: ? [...] blood sugar control and close follow-up with PCP/vp Lattice degen OU - RD warnings Epiretinal [...] agree with all of its relevant components. Wimler Canales [facility]01-19-2023 Instructions* Patient Instructions* Wilmer Canales MD, PhD - 07/30/2022 11:44 AM EST Decrease Predforte /ketorolac to 1 drop 3 times a day for 1 week then 1 drop 2 times a day and hold here until you see Dr. Sanders documented in this encounterUniversity Hospitals Parma [facility] Center01-19-2023 History of Present illness Narrative* [...] blood sugar control and close follow-up with PCP/vp Lattice degen OU - RD warnings Epiretinal [...] components. Wilmer Canales MD documented in this encounterUniversity Hospitals [facility] Center12-14-2022 Instructions* Patient Instructions* Bradly Sanders MD - 06/24/2022 11:31 AM EST Images from the original note were not included. Pa documented in this encounterUniversity Hospitals Parma Medical Center12-14-2022 History of Present illness Narrative* [...] components. Bradly Sanders MD documented in this encounterUniversity Hospitals [facility]ma [facility] Center11-23-2022 Miscellaneous Notes* Telephone Encounter - [...] is to continue taking. documented in this encounterUniversity Hospitals Parma Medical Center11-22-2022 History of Present illness Narrative* [...] components. Bradly Sanders MD documented in this encounterUniversity Hospitals Parma [facility] Center11-01-2022 Instructions* Patient Instructions* Bradly Sanders MD - 05/12/2022 3:58 PM EDT Images from the original note were not included. Pa documented in this encounterUniversity Hospitals Parma [facility] Center11-01-2022 History of Present illness Narrative* [...] components. Bradly Sanders MD documented in this [facility]10-26-2022 Miscellaneous Notes* Addendum Note - Bradly Sanders MD - 05/06/2022 2:17 PM EDTAddended by: BRADLY SANDERS on: 05/06/2022 02:17 PM Modules accepted: Orders documented in this [facility]10-26-2022 Instructions* Patient Instructions* Bradly Sanders MD - 05/06/2022 2:09 PM EDT -prednisolone (white or pink cap) four times a day left eye -ketorolac (stanford cap) four times a day left eye documented in this encounterUniversity Hospitals Parma [facility] Center10-26-2022 History of Present illness Narrative* [...] components. Bradly Sanders MD documented in this encounterUniversity Hospitals [facility] Center09-14-2022 Instructions* Patient Instructions* Bradly Sanders MD - 03/25/2022 1:53 PM EDT Images from the original note were not included. documented in this encounterUniversity Hospitals Parma [facility] Center09-14-2022 History of Present illness Narrative* [...] components. Bradly Sanders MD documented in this encounterUniversity Hospitals Parma [facility] Center09-13-2022 History of Past illness Narrative* Problem Noted Date Resolved Date Combined forms of age-related cataract of both e yes 03/24/2022 03/24/2022 Closed fracture of twelfth thoracic vertebra 11/07/2019 Fall 10/31/2019 11/07/2019 documented as of this encounter (statuses as of 03/25/2022) [facility] History of Past illness Narrative* Problem Noted Date Resolved Date Combined forms of age-related cataract of both e yes 03/24/2022 03/24/2022 Closed fracture of twelfth thoracic vertebra 11/07/2019 Fall 10/31/2019 11/07/2019 documented as of this encounter (statuses as of 03/25/2022) [facility] History of Past illness Narrative* Problem Noted Date Resolved Date Combined forms of age-related cataract of both e yes 03/24/2022 03/24/2022 Closed fracture of twelfth thoracic vertebra 11/07/2019 Fall 10/31/2019 11/07/2019 documented as of this encounter (statuses as of 03/30/2022) [address]13-2022 History of Past illness Narrative* Problem Noted Date Resolved Date Combined forms of age-related cataract of both e yes 03/24/2022 03/24/2022 Closed fracture of twelfth thoracic vertebra 11/07/2019 Fall 10/31/2019 11/07/2019 documented as of this encounter (statuses as of 03/30/2022) [address]13-2022 History of Past illness Narrative* Problem Noted Date Resolved Date Combined forms of age-related cataract of both e yes 03/24/2022 03/24/2022 Closed fracture of twelfth thoracic vertebra 11/07/2019 Fall 10/31/2019 11/07/2019 documented as of this encounter (statuses as of 05/06/2022) [address]13-2022 History of Past illness Narrative* Problem Noted Date Resolved Date Combined forms of age-related cataract of both e yes 03/24/2022 03/24/2022 Closed fracture of twelfth thoracic vertebra 11/07/2019 Fall 10/31/2019 11/07/2019 documented as of this encounter (statuses as of 05/12/2022) [address]13-2022 History of Past illness Narrative* Problem Noted Date Resolved Date Combined forms of age-related cataract of both e yes 03/24/2022 03/24/2022 Closed fracture of twelfth thoracic vertebra 11/07/2019 Fall 10/31/2019 11/07/2019 documented as of this encounter (statuses as of 06/02/2022) [address]13-2022 History of Past illness Narrative* Problem Noted Date Resolved Date Combined forms of age-related cataract of both e yes 03/24/2022 03/24/2022 Closed fracture of twelfth thoracic vertebra 11/07/2019 Fall 10/31/2019 11/07/2019 documented as of this encounter (statuses as of 06/07/2022) [address]13-2022 History of Past illness Narrative* Problem Noted Date Resolved Date Combined forms of age-related cataract of both e yes 03/24/2022 03/24/2022 Closed fracture of twelfth thoracic vertebra 11/07/2019 Fall 10/31/2019 11/07/2019 documented as of this encounter (statuses as of 06/24/2022) [address]13-2022 History of Past illness Narrative* Problem Noted Date Resolved Date Combined forms of age-related cataract of both e yes 03/24/2022 03/24/2022 Closed fracture of twelfth thoracic vertebra 11/07/2019 Fall 10/31/2019 11/07/2019 documented as of this encounter (statuses as of 07/30/2022) [address]13-2022 History of Past illness Narrative* Problem Noted Date Resolved Date Combined forms of age-related cataract of both e yes 03/24/2022 03/24/2022 Closed fracture of twelfth thoracic vertebra 11/07/2019 Fall 10/31/2019 11/07/2019 documented as of this encounter (statuses as of 08/19/2022) [address]13-2022 History of Past illness Narrative* Problem Noted Date Resolved Date Combined forms of age-related cataract of both e yes 03/24/2022 03/24/2022 Closed fracture of twelfth thoracic vertebra 11/07/2019 Fall 10/31/2019 11/07/2019 documented as of this encounter (statuses as of 09/03/2022) [address]13-2022 History of Past illness Narrative* Problem Noted Date Resolved Date Combined forms of age-related cataract of both e yes 03/24/2022 03/24/2022 Closed fracture of twelfth thoracic vertebra 11/07/2019 Fall 10/31/2019 11/07/2019 documented as of this encounter (statuses as of 09/24/2022) [address]13-2022 History of Past illness Narrative* Problem Noted Date Resolved Date Combined forms of age-related cataract of both e yes 03/24/2022 03/24/2022 Closed fracture of twelfth thoracic vertebra 11/07/2019 Fall 10/31/2019 11/07/2019 documented as of this encounter (statuses as of 11/12/2022) [place] [address]-13-2022 History of Past illness Narrative* Problem Noted Date Resolved Date Combined forms of age-related cataract of both e yes 03/24/2022 03/24/2022 Closed fracture of twelfth thoracic vertebra 11/07/2019 Fall 10/31/2019 11/07/2019 documented as of this encounter (statuses as of 12/25/2022) [address]13-2022 History of Past illness Narrative* Problem Noted Date Diagnosed Date Resolved Date Combined forms of age-relate d cataract of both eyes 03/24/2022 03/24/2022 Closed fracture of twelfth thoracic vertebra 0 11/07/2019 Fall 10/31/2019 11/07/2019 documented as of this encounter (statuses as of 05/11/2023) [place] [address]13-2022 History of Past illness Narrative* Problem Noted Date Diagnosed Date Resolved Date Combined forms of age-relate d cataract of both eyes 03/24/2022 03/24/2022 Closed fracture of twelfth thoracic vertebra 0 11/07/2019 Fall 10/31/2019 11/07/2019 documented as of this encounter (statuses as of 06/24/2023) [facility] Note* Wendy Tapia RN - 03/24/2022 10:[address] Sanders told pt he would call in eye drops to [facility] in [place]. Prednisolone, Vigamox & Ketorolac eyedrops today. Pt states understanding of starting them in the am. * Wendy Tapia RN - 03/24/2022 7:29 AM EDT Pt ready for surgery. Needs H & P preop. No distress noted. Call light in reach documented in this encounterUniversity Hospitals Parma Medical Center09-13-2022 Miscellaneous Notes* Telephone Encounter - Kandy Medina - 03/24/2022 9:45 AM EDT Patient is requesting a later time if possible for his scheduled surgery with Dr. Sanders tomorrow. Please contact the patient to discuss surgery time options. Thank you. documented in this encounterUniversity Hospitals Parma [facility] Center09-13-2022 NoteHNO ID: [id number] Author: Wendy Tapia RN Service: ? Author Type: Registered Nurse Type: Nursing Progress Note Filed: 03/24/2022 7:30 AM Note Text: Pt ready for surgery. Needs H AND P preop. No distress noted. Call light in [facility]09-13-2022 Hospital Discharge instructions* Discharge Instr - Other Orders* Bradly Sanders MD - 03/24/2022 9:16 AM EDT Instructions After {OPHT CATARACT/CORNEA/COMBINED SURGERY:[id number]} Surgery It is very important to follow [...] Trouble breathing Contact {CATARACT SURGEONS CONTACT PHONE NUMBERS:[id number]} documented in this encounterUniversity Hospitals Parma Medical Center09-13-2022 Miscellaneous Notes* Operative Report - Bradly Sanders MD - 03/24/2022 8:13 AM EDT OPERATIVE/PROCEDURE REPORT OPHTHAMOLOGY LOG ID: [id number] SURGERY/PROCEDURE DATE: 03/24/2022 INCISION/PROCEDURE START TIME: 8:38 AM INCISION CLOSE/PROCEDURE END TIME: 9:07 AM SURGEON(S)/PROCEDURALIST(S) AND FIRE POT OPERATOR(S): Surgeon(s) and Role: * Bradly Sanders MD [...] Implant Name Type Inv. Item Serial No. Manager Technical Training Lot No. LRB No. Used Action LENS ACRYSOF ULTRASERT +14 DIOPTER ACRYLIC IOL 1 PIECE FOLDABLE UV BLUE - [id number] Intraocular Lens LENS ACRYSOF ULTRASERT +14 DIOPTER ACRYLIC IOL 1 PIECE FOLDABLE UV BLUE [id number] [employer] Left 1 Implanted Ocular Co-Morbidities: Yes Intra-operative Complications None I/primary surgeon/proceduralist performed the entire procedure. SIGNATURE: Bradly Sanders MD PATIENT NAME: Khoa Connors Jr. DATE: March 24, 2022 TIME: 9:16 AM PAGER/CONTACT #: [phone] documented in this encounterUniversity Hospitals Parma [facility] Center09-13-2022 History and physical note * [...] 2022 TIME: 8:07 AM documented in this encounterUniversity Hospitals Parma Medical Center08-26-2022 Miscellaneous Notes* Telephone Encounter - [...] his appointment on March 09. Dr. Angelic Gilmoer ph. documented in this encounterUniversity Hospitals Parma Medical Center07-06-2022 NoteHNO ID: [id number] Author: Nancy Lucas MA Service: ? Author Type: Observer [employer]ity [employer]ing Type: Progress Notes Filed: 01/14/2022 8:51 AM Note Text: Pt came in for surgery clearance for a workers comp case Nancy Lucas [facility] History of Present illness Narrative* Nancy Lucas MA - 01/14/2022 8:50 AM EDT Pt came in for surgery clearance for a workers comp case Nancy Lucas MA documented in this encounterUniversity Hospitals Parma [facility] Center05-31-2022 Instructions* Patient Instructions* Bradly Sanders MD - 12/09/2021 3:31 PM EDT Images from the original note were not included. documented in this encounterUniversity Hospitals Parma Medical Center05-31-2022 History of Present illness Narrative* [...] 09, 2021 3:27 PM documented in this encounterUniversity Hospitals Parma [facility] Center03-28-2022 Miscellaneous Notes* Telephone Encounter - Catrachito Wallace Patient Supervisor Tumbling And Rolling - 10/06/2021 2:27 PM EDT Patient's orthopedic office is asking for the rest of the patient's records to be sent over to their office. The office said they are missing the Anesthesia report but received the others. The officesaid Dr. Kim's manufacturing engineer assembly was the one faxing the original records. documented in this encounterUniversity Hospitals Parma Medical Center03-21-2022 History of Present illness Narrative* [...] blood sugar control and close follow-up with PCP/vp Amber more OU - RD warnings Follow-up [...] components. Carly Kim MD documented in this encounterUniversity Hospitals Parma Medical Center10-01-2021 History of Present illness NarrativePatient [...] will offer substantial improvement for his back pain.[facility] 300 Work Phone: [phone] 550-324204-21-2020 History of Past illness Narrative* Problem Noted Date Resolved Date Closed fracture of twelfth thoracic vertebra 11/07/2019 Fall 10/31/2019 11/07/2019 documented as of this encounter (statuses as of 09/29/2021) [place] [address]-21-2020 History of Past illness Narrative* Problem Noted Date Resolved Date Closed fracture of twelfth thoracic vertebra 11/07/2019 Fall 10/31/2019 11/07/2019 documented as of this encounter (statuses as of 10/08/2021) [place] [address]-21-2020 History of Past illness Narrative* Problem Noted Date Resolved Date Closed fracture of twelfth thoracic vertebra 11/07/2019 Fall 10/31/2019 11/07/2019 documented as of this encounter (statuses as of 12/09/2021) [place] [address]-21-2020 History of Past illness Narrative* Problem Noted Date Resolved Date Closed fracture of twelfth thoracic vertebra 11/07/2019 Fall 10/31/2019 11/07/2019 documented as of this encounter (statuses as of 01/14/2022) [facility] Diagnosis 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- Primary Recent retinal detachment, partial, with multiple defects 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 edema, without long-term current use of insulin (HCC) documented in this encounter [facility]* Diagnosis Type 2 diabetes mellitus with [...] of senile cataract documented in this encounter [facility] Diagnosis OPENED IN ERROR- Primary To allow closing an encounter opened in error (used in SmartSet) Combined forms of age-related cataract of both eyes Other and combined forms of senile cataract documented in this encounter [facility] Diagnosis Combined forms of age-related cataract [...] of insulin (HCC) documented in this encounter [facility]* Diagnosis CME (cystoid macular [...] of both eyes documented in this encounter [facility]* Diagnosis Actinic keratoses- Primary Actinic keratosis Seborrheic keratoses Other seborrheic keratosis Lentigines Other dyschromia Acrochordon Unspecified hypertrophic and atrophic condition of skin documented in this encounter [facility]* Diagnosis Nummular dermatitis- Primary Contact dermatitis and other eczema, due to unspecified cause Actinic keratoses Actinic keratosis documented in this encounter [facility] NarrativePatient is [...] and he is here today for the aspiration.[facility] 300 Work Phone: History of Present illness Narrative* Patient ID confirmed using Name and . * Patient wearing mask throughout session today d/t COVID-19 precautions. [facility] Work Phone: History of Present illness Narrative* Patient ID confirmed using Name and . * Patient wearing mask throughout session today d/t COVID-19 precautions. * Patient continues to demo significant weakness with DF but making progress with strengthening otherLE muscle groups. Ease/tolerance to step ups improving gradually. [facility] Work Phone: History of Present illness NarrativeWeakness noted with hip and quad strengthening. Continued ambulation into clinic with FWW. Fair quad eccentric control with step ups. LOB noted with tandem stance.[facility]: History of Present illness Narrative* Patient ID confirmed using Name and . * Patient wearing mask throughout session today d/t COVID-19 precautions. [facility] Work Phone: Hisbgdq of Present illness Narrative* Patient ID confirmed using Name and . * Patient wearing mask throughout session today d/t COVID-19 precautions. * Patient continues to present with pain and limitations coming from B knees, patient demos improved/improving strength and stability but painful limitations remain. [facility] Work Phone: history of Present illness Narrative* Patient ID confirmed using Name and . * Patient wearing mask throughout session today d/t COVID-19 precautions. * Patient making progress with strength/stability demos improved/improving balance and ability to perform exercises with increased reps/resistance but continues to present with pain which limits functional/community ambulation. [facility] Work Phone: Hischgt of Present illness Narrative* Patient ID confirmed using Name and . * Patient wearing mask throughout session today d/t COVID-19 precautions. * Patient able to complete exercises with appropriate level of challenge/difficulty, making progress with strength/stability but continues to have pain and extension strength deficits with R knee but patient was able to increase reps on 6'' step showing improvement in CKC strength. [facility] Work Phone: Hissxed of Present illness Narrative* Patient ID confirmed using Name and . * Patient wearing mask throughout session today d/t COVID-19 precautions. * Patient able to complete exercises with appropriate level of challenge/difficulty, making progress with strength/stability but continues to have pain and extension strength deficits with R knee but patient was able to increase reps on 6'' step showing improvement in CKC strength. [facility] Work Phone: History of Present illness Narrative* Patient ID confirmed using Name and . * Patient wearing mask throughout session today d/t COVID-19 precautions. [facility] Work Phone: history of Present illness Narrative* [...] with tandem gait FWD/BWD, but decreased afterwards. [facility] Work Phone: history of Present illness NarrativePt able to complete treatment today with no increased pain/discomfort. Pt is improving in strength and is able to complete progressions of reps and resistance to exercises. Pt unable to complete DF bilaterally, has to do unilaterally with an assist for the R foot.[facility] Work Phone: history of Present illness NarrativePt able to complete treatment today with no increased pain/discomfort. Pt is improving in strength and is able to complete progressions of reps and resistance to exercises. Pt unable to complete DF bilaterally, has to do unilaterally with an assist for the R foot.[facility] Work Phone: history of Present illness NarrativePt [...] up a 6 step w/o [address] Work Phone: history of Present illness Narrative* [...] decision making by Emeterio Palacio PTA, CHAD. [facility] Work Phone: History of Present illness NarrativePt was able to tolerate treatment today with no c/o of increased pain/discomfort. Pt is showing improvement with Quad strength as shown by increase in weight for LAQ as well as HSC with an increase in repetitions. Pt is still showing difficulty with stair negotiation and safety.[facility] Work Phone: history of [facility] illness Narrative* Patient ID confirmed using [...] decision making by Emeterio Palacio PTA, CHAD. [facility] Work Phone: History of Present illness NarrativePt tolerated treatment well. Pt hip strength is improving as shown by an increase from green to blue band, pt complained of pain around ankles due to band rubbing and being tight. Pt is still showingdeficits of SLS balance.[facility] Work Phone: history of Present illness Narrative* [...] decision making by Emeterio Palacio PTA, CHAD. [facility] Work Phone: History of Present illness NarrativePT tolerated treatment well with no increased pain. Noted slower completion of 3-way hip exercises due to an increased resistance and fatigue of those muscles.[facility] Work Phone: History of Present illness Narrative* PT tolerated treatment well with no increased pain. Noted slower completion of 3-way hip exercises due to an increased resistance and fatigue of those muscles. * PUNEET Lerner participated in treatment this date with continuous supervision and all clinical decision making by Emeterio Palacio PTA, CHAD. [facility] Work Phone: [facility] NarrativePatient is a very pleasant 60-year-old [...] The right is much improved following our aspiration.[facility] 300 Work Phone: History of Present illness Narrative* Patient ID confirmed using Name and . * Patient wearing mask throughout session today d/t COVID-19 precautions. * Patient with good tolerance to treatment, no c/o increased pain/discomfort in clinic. Patient making gradual progress with strength and stability, demos improving propulsion/gross extension with stepups and decreasing use/need for UE assistance. [facility] Work Phone: History of Present illness NarrativeContinue amb using FWW with slow marcie. He did demonstrate better pattern following session. Fatigued after treatment but no increase in pain. [facility] Work Phone: History of Present illness NarrativePatient identity confirmed today with name/. see goals; little if any improvements in knee strength/ROM since last re-assess 1 mth ago; ease of gait with FWW varies with knee and LBP. [facility] Work Phone: History of Present illness NarrativePatient is a very pleasant 60-year-old male who presents today in follow-up with regards to his left knee osteochondral defect DJD knee pain. He continues have significant mount of pain he is done physical therapy and has had some strengthening of the right lower extremity. He does complain of substantial pain with the left knee. [facility] 300 Work Phone: History of Present [...] not able to use his primary strength source.[facility] 300 Work Phone: History of Present illness NarrativePatient pleasant 60-year-old male presents today in follow-up with regards to his left knee. He continues to have significant pain in the left knee. He is interested in pursuing knee arthroplasty. \`.[facility] 300 Work Phone: [...] visit todayis here today to discuss the results.[facility] 300 Work Phone: Hospital course Narrative No data available for this section [facility] Instructions* Name Dates Details Instructions not documented [facility] 300 Work Phone: Instructions* Name Dates Details Instructions not documented [facility] Work [facility]: Instructions* Name Dates Details Instructions not documented [facility] 300 Work Phone: Instructions* Name Dates Details Instructions not documented [facility] Work Phone: Instructions* Name Dates Details Instructions not documented [facility] Work Phone: Reason for Referral Status Reason Specialty Diagnoses / Procedures Referre d By Contact Referred To Contact Closed Radiology Diagnoses Strain of right shoulder, initial encounter Procedures MR Shoulder Right Without Contrast Linda Alberts PA-C [address] [facility] [address] [address] Assessments Diagnosis Strain of right shoulder, initial encounter Diagnosis Pain in both knees, unspecified chronicity Pain in fibula Disorder of bone and cartilage, unspecified Pes anserinus bursitis of both knees Primary osteoarthritis of left knee Prepatellar bursitis of left knee Prepatellar bursitis, right knee Osteochondral defect of patella Advance Directives No Advanced Directives Records FoundDocuments on File Type Date Recorded Patient Bow Stapler Expl anation Advance Directives and Livin g Will 08/03/2019 2:14 PM Documents on File Type Date Recorded Patient Bow Stapler Expl anation Advance Directives and Livin g Will 08/03/2019 2:14 PM Documents on File Type Date Recorded Patient Bow Stapler Expl anation Advance Directive(s) 07/16/2021 11:36 AM [...] on: 11/30/2019 2:00 PM by: HARDY CLARK [[id number]] Dictation on: 11/30/2019 2:02 PM by: HARDY CLARK [[id number]] documented in this encounter Chief Complaint PATIENT IS HERE FOR FOLLOW UP RIGHT KNEE. [facility] APPROVED. STATES THAT STILL IN PAIN AND IS WANTED IT DRAINED.PATIENT IS HERE FOR FOLLOW UP RIGHT KNEE. [facility] APPROVED. STATES THAT STILL IN PAIN AND IS WANTED IT DRAINED.PT HERE TODAY FOR 6 WK FU HAYDEN KNEE/SHOULDER. PT STATES HE IS HAVING ALOT OF PIN BUT THINKS WITH THERAPY HAS GIVEN HIM SOME STRENGTH.PT HERE FOR [address] [facility]. DOI 06/01/19. STATES KNEE IS THE SAME, NO IMPROVEMENT. LAST THERAPY SESSION WAS 01/16/21. PAIN IS CONSTANT.PT HERE FOR [address] [facility]. DOI 06/01/19. STATES KNEE IS THE SAME, [...] the same with regard to pain left knee.[facility] follow- up) left knee OA, patella osteochondral [...] a Fluress shortage, administer 1 drop of Maxwell-Fluor into both eyes as directed for applanation [...] a Fluress shortage, administer 1 drop of Maxwell-Fluor into both eyes as directed for applanation [...] both knees, unspecified chronicity Linda Alberts PA-C [address] [address] Hardy Clark MD [address] [facility] [place] [address] Reason Comments Post-op (Ophthalmology) Left Eye S/P [...] W/INTRAOCULAR LENS POWER CALCULATION [facility] [address] [place] [address] Referral ID Status Reason Start Date Expiration Date Visits Re quested Visits Authorized [id number] 1 1 Reason Comments Post-op Cataract OS [...] SURGERY LASER Wilmer Canales MD, PhD [address] [place] [address] Bradly Sanders MD [address] [place] [address] Referral ID Status Reason Start Date Expiration Date Visits Re quested Visits Authorized [id number] Closed 08/18/2022 11/16/2022 1 1 Reason Comments Lattice Degeneration Follow Up Chorioretinal Scar Follow Up Diabetes Foreign Body Sensation Photophobia Left Eye Reason Comments Cystoid Macular Edema evaluation Specialty Diagnoses / Procedures Referred By Contact Referred To Contact Ophthalmology / OPHTHALMOLOGY Diagnoses *YAG left eye for posterior capsular opacity Procedures POST-CATARACT LASER SURGERY NEW ADULT Wilmer Canales MD, PhD [address] [place] [address] Wilmer Canales MD, PhD [address] [place] [address] Referral ID Status Reason Start Date Expiration Date Visits Re quested Visits Authorized [id number] Closed 09/22/2022 11/08/2022 1 1 Reason Comments S/P SB/PPV Left eye 07/16/2021 Non-insulin Dependent Diabetes Mellitus Epiretinal Membrane Follow Up Left eye Reason Comments Non-insulin Dependent Diabetes Mellitus Checked by [id number] 5.0 Epiretinal Membrane Follow Up Left eye [...] DATE CREATED AUTHOR AUTHOR'S ORGANIZ ATION 01/28/2020 [facility] DATE CREATED AUTHOR AUTHOR'S ORGANIZ ATION 07/19/2020 [facility] DATE CREATED AUTHOR AUTHOR'S ORGANIZ ATION 07/26/2021 [facility] DATE CREATED AUTHOR AUTHOR'S ORGANIZ ATION 09/03/2021 [facility] DATE CREATED AUTHOR AUTHOR'S ORGANIZ ATION 03/25/2022 [facility] DATE CREATED AUTHOR AUTHOR'S ORGANIZ ATION 06/07/2023 [facility] ([place]) DATE CREATED AUTHOR AUTHOR'S ORGANIZ ATION 07/03/2023 [facility] Comments (unrecognize d section and content) In the event this informatio n is protected by the Federal Confidentiality of Alcohol and Drug Abuse Patient Records regulations: The Federal rules restrict any use of the information to criminally investigate or prosecute any alcohol or drug abuse patient.[facility] the event this information is protected by the Federal Confidentiality of Alcohol and Drug Abuse Patient Records regulations: The Federal rules restrict any use of the information to criminally investigate or prosecute any alcohol or drug abuse patient.[facility] the event this information is protected by the Federal Confidentiality of Alcohol and Drug Abuse Patient Records regulations: The Federal rules restrict any use of the information to criminally investigate or prosecute any alcohol or drug abuse patient.[facility] the event this information is protected by the Federal Confidentiality of Alcohol and Drug Abuse Patient Records regulations: The Federal rules restrict any use of the information to criminally investigate or prosecute any alcohol or drug abuse patient.[facility] the event this information is protected by the Federal Confidentiality of Alcohol and Drug Abuse Patient Records regulations: The Federal rules restrict any use of the information to criminally investigate or prosecute any alcohol or drug abuse patient.[facility] the event this information is protected by the Federal Confidentiality of Alcohol and Drug Abuse Patient Records regulations: The Federal rules restrict any use of the information to criminally investigate or prosecute any alcohol or drug abuse patient.[facility] CenterIn the event this information is protected by the Federal Confidentiality of Alcohol and Drug Abuse Patient Records regulations: The Federal rules restrict any use of the information to criminally investigate or prosecute any alcohol or drug abuse patient.[facility] CenterIn the event this information is protected by the Federal Confidentiality of Alcohol and Drug Abuse Patient Records regulations: The Federal rules restrict any use of the information to criminally investigate or prosecute any alcohol or drug abuse patient.[facility] Center[facility] the event this information is protected by the Federal Confidentiality of Alcohol and Drug Abuse Patient Records regulations: The Federal rules restrict any use of the information to criminally investigate or prosecute any alcohol or drug abuse patient.[facility] Center[facility] the event this information is protected by the Federal Confidentiality of Alcohol and Drug Abuse Patient Records regulations: The Federal rules restrict any use of the information to criminally investigate or prosecute any alcohol or drug abuse patient.[facility] CenterIn the event this information is protected by the Federal Confidentiality of Alcohol and Drug Abuse Patient Records regulations: The Federal rules restrict any use of the information to criminally investigate or prosecute any alcohol or drug abuse patient.[facility] CenterIn the event this information is protected by the Federal Confidentiality of Alcohol and Drug Abuse Patient Records regulations: The Federal rules restrict any use of the information to criminally investigate or prosecute any alcohol or drug abuse patient.[facility] CenterIn the event this information is protected by the Federal Confidentiality of Alcohol and Drug Abuse Patient Records regulations: The Federal rules restrict any use of the information to criminally investigate or prosecute any alcohol or drug abuse patient.[facility] Center[facility] the event this information is protected by the Federal Confidentiality of Alcohol and Drug Abuse Patient Records regulations: The Federal rules restrict any use of the information to criminally investigate or prosecute any alcohol or drug abuse patient.[facility] CenterIn the event this information is protected by the Federal Confidentiality of Alcohol and Drug Abuse Patient Records regulations: The Federal rules restrict any use of the information to criminally investigate or prosecute any alcohol or drug abuse patient.[facility] CenterIn the event this information is protected by the Federal Confidentiality of Alcohol and Drug Abuse Patient Records regulations: The Federal rules restrict any use of the information to criminally investigate or prosecute any alcohol or drug abuse patient.[facility] CenterIn the event this information is protected by the Federal Confidentiality of Alcohol and Drug Abuse Patient Records regulations: The Federal rules restrict any use of the information to criminally investigate or prosecute any alcohol or drug abuse patient.[facility] CenterIn the event this information is protected by the Federal Confidentiality of Alcohol and Drug Abuse Patient Records regulations: The Federal rules restrict any use of the information to criminally investigate or prosecute any alcohol or drug abuse patient.[facility] CenterIn the event this information is protected by the Federal Confidentiality of Alcohol and Drug Abuse Patient Records regulations: The Federal rules restrict any use of the information to criminally investigate or prosecute any alcohol or drug abuse patient.[facility] CenterIn the event this information is protected by the Federal Confidentiality of Alcohol and Drug Abuse Patient Records regulations: The Federal rules restrict any use of the information to criminally investigate or prosecute any alcohol or drug abuse patient.[facility] CenterIn the event this information is protected by the Federal Confidentiality of Alcohol and Drug Abuse Patient Records regulations: The Federal rules restrict any use of the information to criminally investigate or prosecute any alcohol or drug abuse patient.[facility] Care Teams (unrecognized sec tion and content) Garbage Truck Helper Relationship Specialty Start Date End Date Angelic Monsalve [address] [address] [place] [address] PCP - General Family Practice 12/09/21 Garbage Truck Helper Relationship Specialty Start Date End Date Angelic Monsalve [address] [place] [address] PCP - General Family Practice 12/09/21 Garbage Truck Helper Relationship Specialty Start Date End Date Angelic Monsalve [address] [place] [address] PCP - General Family Practice 12/09/21 Garbage Truck Helper Relationship Specialty Start Date End Date Angelic Monsalve [address] [place] [address] PCP - General Family Practice 12/09/21 Garbage Truck Helper Relationship Specialty Start Date End Date Angelic Monsalve [address] [place] [address] PCP - General Family Practice 12/09/21 Garbage Truck Helper Relationship Specialty Start Date End Date Angelic Monsalve [address] [place] [address] PCP - General Family Medicine 12/09/21 Garbage Truck Helper Relationship Specialty Start Date End Date Angelic Monsalve [address] [place] [address] PCP - General Family Medicine 12/09/21 Garbage Truck Helper Relationship Specialty Start Date End Date Angelic Monsalve [address] [place] [address] PCP - General Family Medicine 12/09/21 Garbage Truck Helper Relationship Specialty Start Date End Date Angelic Monsalve [address] [place] [address] PCP - General Family Medicine 12/09/21 Garbage Truck Helper Relationship Specialty Start Date End Date Angelic Monsalve [address] [place] [address] PCP - General Family Medicine 12/09/21 Garbage Truck Helper Relationship Specialty Start Date End Date Angelic Monsalve [address] [place] [address] PCP - General Family Medicine 12/09/21 Garbage Truck Helper Relationship Specialty Start Date End Date Angelic Monsalve [address] [place] [address] PCP - General Family Medicine 12/09/21 Garbage Truck Helper Relationship Specialty Start Date End Date Gricel Angelic Vincent [address] [place] [address] PCP - General Family Medicine 12/09/21 Garbage Truck Helper Relationship Specialty Start Date End Date Angelic Monsalve [address] [facility] [address] [place] [address] PCP - General Family Medicine 12/09/21 Garbage Truck Helper Relationship Specialty Start Date End Date Angelic Monsalve [address] [facility] [address] [place] [address] PCP - General Family Medicine 12/09/21 Garbage Truck Helper Relationship Specialty Start Date End Date Angelic Monsalve [address] [facility] [address] [place] [address] PCP - General Family Medicine 12/09/21 Garbage Truck Helper Relationship Specialty Start Date End Date Angelic Monsalve [address] [facility] [address] [place] [address] PCP - General Family Medicine 12/09/21 Scheduled [...] Bradly Sanders MD - Comment: left eye) ufdqoapd-xdldokzsk-vugqniatrfqye 3.5 mg/g-10,000 unit/g-0.1 % (POLYDEX) (CANCELED) X [...] BE BASED ON THE PRIMARY CLINICAL RECORDS. [employer] [facility]. provides no warranty or guarantee of the accuracy or completeness of information in this document.
[2023-08-25] MEDS: Magnesium 1 GM over 15 mins IV (09:40)
[2023-08-25] MEDS: Lactated Ringers 1,000 ML 999 ML IV ×2 (09:40→15:01)
[2023-08-25 10:05] LABS: Bedside Glucose 152 mg/dL (74-106)
--- NOTE | 2023-08-25 11:15 | KNEE_PTH ---
PATHOLOGY RESULTS PATIENT: JEFFREY CONNORS Jr. LOC: MS3 U#:[id number] AGE/SX: 62/M ROOM: [facility] RE08/25/[address]: Dr. Daryl Luz MD : 1960 BED: 1 DIS: 09/03/2023 SPEC #: [id number] RECD: 08/25/23 18:34 STATUS: FREDO MARINO #: [id number] ELPIDIO: 08/25/23 11:[address]: Daryl Luz DEPT: SURGICAL PATHOLOGY RECD BY: Leida Morgan ENTERED: 08/26/23 08:51 SP TYPE: TOTAL KNEE OTHR DR: MD Dr. Sera Prince DO Dr. Mark Tereletsky, DO Tissues: Knee, NOS Procedures: Decalcification bone/plaque Surgery Specimen Level IV HEADER OPERATION: PAULIE, robotic assisted left total knee arthroplasty PRE-OP DIAGNOSIS: Severe left knee osteoarthritis with valgus deformity TISSUE SUBMITTED: Left knee bone MICROSCOPIC DIAGNOSIS Bone and soft tissue, left knee, total knee replacement/resection: Pieces of bone with degenerative osteoarthritic changes. Fibroadipose tissue, fibroconnective tissue and reactive synovial tissue. LORENA:rashel 08/30/2023 MICROSCOPIC DESCRIPTION Slides are reviewed. GROSS DESCRIPTION Received is one container designated bone and soft tissue left knee. The specimen consists of multiple fragments of young-yellow bone measuring in aggregate 13.0 x 12.0 x 4.0 cm. Also in the specimen container are multiple fragments of yellow-white soft tissue measuring in aggregate 5.5 x 2.0 x 1.5 cm. A number of bony fragments contain articular surfaces consistent with tibial plateau and femoral condyle and displaying prominent osteophyte formation, eburnation and bone erosion. Er Nurse sections are submitted in two cassettes as follows: 1 - soft tissue, 2 - bone after decalcification. LORENA/candi 08/26/23 TC:5 CPT: 61225, 14130
[2023-08-25] MEDS: Cefazolin 3 GM in 0.9% Normal Saline (100mL Bag) 100 ML IV (11:20)
[2023-08-25] MEDS: TXA 1000mg in NS100 100ml (IVPB at Incision) 660 MG IV (11:40)
[2023-08-25] MEDS: dexAMETHasone 10 MG/ML Vial IV (12:25)
[2023-08-25] MEDS: JPS (Morphine 10mg/ml) OPERA.SITE (12:50)
[2023-08-25] MEDS: TXA 1000mg in NS100 100ml (IVPB at Closure) 660 MG IV (12:54)
--- NOTE | 2023-08-25 13:03 | OP.PCM_ITS ---
Report of Operation Date of Procedure: 08/25/23 Pre-Operative Diagnosis: Left knee primary osteoarthritis Post-Operative Diagnosis: Left knee primary osteoarthritis Surgery/Procedure Performed:: Left knee minimally invasive robotic assisted total knee replacement Description of Surgical Findings:: Stable knee with good patella tracking Surgeon: Daryl Luz broodmare barn groom: Uriel Canela Type of Anesthesia: General Anesthesiologist: Jhony Javier Special Medications: 2 g Ancef, 1 g TXA at incision, 1 g TXA closure, 10 mg Decadron, joint cocktail (5 mg Duramorph, 30 mL of 0.5% Ropivicaine, 1000 units of epinephrine, 30 mg of Toradol) Specimen's removed: Bony cuts Estimated Blood Loss (mL): 500 Fluids Replaced: 1000 ML Description of Procedure: Implants used: 1. [place] size 8 triathlon cruciate retaining distal femoral press-fit component 2. Aneta size 8 press-fit tritanium tibial baseplate 3. Aneta X3 10 mm CS polyethylene 4. Aneta X3 40 mm asymmetric patella Brief history operative indications: 62-year-old M with history of left knee osteoarthritis with radiographic findings with loss of joint space, osteophyte formation and subchondral sclerosis. Failed conservative measures as mentioned in the H&P. Discussion of total knee arthroplasty as well as risk and benefits were discussed the patient including but not limited to blood loss, DVTs, PEs, neurovascular damage, general risk of anesthesia including loss of life, and stiffness or instability were discussed with patient. Patient demonstrated understanding and was able to sign informed consent. Procedure: On the date of procedure patient's left lower extremity was marked in the preoperative area. The patient was then taken back to the operating room where the patient was placed on the table in the supine position. All bony prominences were identified a well-padded. Anesthesia assumed control of the C-spine and airway and remained controlled throughout the remainder of the procedure. A tourniquet was placed on the left upper thigh and the leg was prepped in a sterile fashion. The surgeon then scrubbed at this time .Upon reentering the room left lower extremity was draped in a standard orthopedic fashion. A timeout was then called and everyone agreed upon the side, the site, the procedure to be performed, patient's identity and antibiotics given. Esmarch bandage was used to exsanguinate the extremity and the tourniquet was placed up to 250 mmHg with the knee in flexion. A midline skin incision was made and sharp dissection was taken down through skin subcutaneous tissue and fat. The standard medial parapatellar incision was made and the patella was subluxed laterally. An Appropriate deep MCL release was done and the fat pad was resected. Our attention was then directed to the patella. The patella was everted and a flat resection was made. The knee was then flexed up in 2 femoral pins were placed inside the incision and 2 tibial pins were placed outside the incision in the medial tibia bicortically. Once this was completed the 2 checkpoints in the femur and tibia were placed. Knee was then flexed up and the bony landmarks were registered. Once this was completed knee was taken through range of motion and manually stressed allowing us to a plan for an appropriate tibial cut. The robotic arm was brought into the field sterilely and checkpoint and saw were registered. Ba sed on the patient's deformity the tibial cut was made in 2 degrees of varus. At this time the tensioner was then placed in the joint and ligament tension was checked at 90 degrees and full extension. Based on the patient's ligamentous tension appropriate adjustments were made to the operative plan and ligament releases were done. Once we were happy with our operative plan with balanced flexion and extension gaps our attention was directed to the femur. The robot was brought into the field sterilely and registered. Posterior condylar cuts, anterior chamfer cuts and anterior cuts were appropriately made for a size 8 femur. When these were completed the saws were switched out in the distal femoral and posterior chamfer cuts were made. Protecting the soft tissue throughout this time. A size 8 tibial base plate was selected. the knee was flexed to 90 degrees and the soft tissues and posterior osteophytes were removed from the joint. 40 cc of the periarticular injection was injected into the posterior medial corner of the joint. The appropriate trials were then placed on the femur and tibia. A trial polyethylene was trialed to ensure proper balancing and stability of the knee. The appropriate tibial internal rotation was then marked with a bovie. Our attention was then directed to the patella. The lug holes were drilled and the patella trial was placed. Patellar tracking was checked and deemed appropriate. Once we were happy lug holes were drilled for the femur and trial components were removed. the tibia was subluxed and pinned into place and the keel was punched and drilled appropriately. Final components were verified and opened, and cement was mixed in a vacuum. [employer] Simplex cement was used. The wound was copiously irrigated with normal saline. When the cement was ready the components were impacted into place starting with the tibia, femur and finally the patella. The trial poly component was placed and the knee was placed in full extension. After implants were all placed the tracking, alignment and balance were verified and a size 10 mm CS polyethylene component was placed. Once the final components were placed a 3-minute dilute Betadine lavage was performed followed by an Irrisept lavage was performed and the wound was copiously irrigated with normal saline solution and the periarticular injection was given. The wound was closed in a layer duong fashion using #1 vicryl interrupted sutures for the arthrotomy, 2-0 interrupted Vicryl suture for the subcuticular layer and eugenia for final skin closure. A sterile compressive dressing was then placed. The patient was then awakened from anesthesia, transferred to the [facility] and transferred to the PACU for recovery. Post op plan DVT ppx: ASA 81mg BID, thigh high compression stockings Follow up: in office in 2 weeks for wound check PT: to start POD #0 at hospital, outpatient PT should be arranged. Due to patient's high risk nature BMI greater than 40 he will be placed on doxycycline 100 mg p.o. twice daily for extended postop oral antibiotics. My physician assistant winemaker was a vital part of this case. He was important in appropriate retraction during the case, and protection of soft tissues during bony cuts. His intimate knowledge of the case and my steps aided in safe and expedient completion of the procedure as well as appropriate position of the leg during the case. He was also vital in assisting with closure under my direct supervision. Due to the complexity of this case robotic arm was used to assist in the surgery to improve accuracy and clinical outcomes. Complications No intraoperative complications Admit VTE Documentation VTE Present on Admission: No VTE Mechan Device Prophylaxis: SCD's and Thigh High KAT Hose VTE Pharm Prophylaxis ordered?: Yes
--- NOTE | 2023-08-25 13:14 | PCM.PN.HOSP ---
Reason for Visit Reason for Visit: Left knee osteoarthritis Subjective Subjective Mr. Turner is a 62-year-old white male who presented to [facility] on 08/25/2023 for a left minimally invasive robotic assisted total knee arthroplasty with Dr. Luz. Patient has had ongoing pain for the last 3 to 4 years and had surgery scheduled for September 2022 but it was canceled secondary to low nutritional markers and an elevated hemoglobin A1c since, the patient has been working with a dietitian for appropriate nutritional optimization and it was felt appropriate to move forward with a surgical plan for intervention. The patient continued to have constant pain in the left knee that was increased with ADLs and IADLs. He had failed outpatient conservative managements including medications, injections, and physical therapy. Preoperative hemoglobin A1c was 6.7 and it does not appear that he is on any chronic medications for diabetes and is working on diet control for his diabetes. His past medical history consist of DM-2, BPH with obstruction, pernicious anemia, B12 deficiency, and morbid obesity. We have been consulted postoperatively for medical management of his chronic medical issues and any arising postoperative medical issues. Patient was seen and evaluated postoperatively on the medical floor following his surgery. Patient is complaining of 10 out of 10 pain however is falling asleep during my conversation with him. He does desat when he sleeps despite supplemental oxygen and I suspect he has pretty significant sleep apnea. He denies ever being tested and states he does not think he could wear a mask. I did discuss with him the importance of being tested and being treated if possible as there are multiple comorbidities that are associated with untreated sleep apnea. He fell asleep during my conversation. Objective Data Objective Data Vital Signs: Vital Signs Temp Pulse Resp BP Pulse Ox O2 Del Method 98.4 F 84 16 147/75 H 95 Room Air 08/25/23 09:16 08/25/23 09:16 08/25/23 09:16 08/25/23 09:16 08/25/23 09:16 08/25/23 09:16 Oxygen Delivery Method Room Air Weight: 160 kg Body Mass Index (BMI) 41.8 Intake & Output: Intake and Output for Last 24 Hours 08/23/23 08/24/23 08/25/23 23:59 23:59 23:59 Intake Total 335 / 335 Balance 335 / 335 Lab / Micro Data Labs: Laboratory Results - last 24 hr 08/25/23 09:14: POC Glucose 152 H Physical Exam Const oriented x3, no apparent distress and well nourished; Negative for average body habitus or healthy appearing Constitutional Narrative: Super morbidly obese, white male, lying in bed, complaining of 10 out of 10 pain but intermittently falling asleep during my conversation, currently appears comfortable nontoxic, nursing at bedside HEENT head/scalp atraumatic, moist oral mucous membranes and oropharynx normal HEENT Narrative: Mallampati 4, no thrush Resp normal respiratory effort, no retractions, no use of accessory muscles and clear to auscultation bilaterally Resp Narrative: Distant breath sounds due to body habitus Auscultation: Negative for rales, rhonchi or wheezes Cardio regular rate, regular rhythm, S1 normal heart sound, S2 normal heart sound, no murmurs, no rub, no gallops and no clicks Cardio Narrative: Distant heart tones due to body habitus GI normal to inspection, nondistended, normoactive bowel sounds, soft to palpation and non-tender GI Narrative: Large protuberant abdomen Extremity no clubbing, cyanosis or edema Extremity Narrative: 2+ pedal pulses, postop ROCKY hose in place Neuro oriented x3 and no focal motor deficits Speech: speech normal Assessment & Plan Assessment/Plan (1) Osteoarthritis of left knee: PLAN: Plan Osteoarthritis of left knee -Postop day 0 left total knee arthroplasty-minimally invasive and robotic assisted -Patient management per primary service -Would recommend scheduled bowel regimen while on narcotics and having decreased mobility -Doxycycline 100 mg p.o. twice daily for postop antibiotics due to his elevated BMI -PT/OT -Follow-up in orthopedic surgery office in 2 weeks for wound check and postoperative imaging that needs to occur DM-2 -Preoperative hemoglobin A1c was 6.7 -Patient is not on any chronic medications for this -May have some elevated blood sugars postoperatively due to systemic stress -If blood sugars are markedly elevated could consider sliding scale however would just recommend carb controlled diet at this time BPH with obstruction -Patient is currently not any medications for BPH -Will give Flomax 1 time tonight given postoperative anesthesia complications with BPH -Monitor urine output Pernicious anemia/B12 deficiency -Continue home B12 injections post discharge Suspected sleep apnea -Patient states he is never formally been through a sleep study and does not think he can wear a mask -I did advise that he should be tested and try to be compliant if possible as there are multiple comorbidities that are directly related to untreated sleep apnea. -Will continue oxygen supplementation while patient is sleeping however do anticipate oxygen desaturations while he is sleeping -My biggest concern would be that if his mental status decreased I would obtain an ABG to rule out hypercapnia related to his sleep apnea. He is likely chronically hypoxic at home while he sleeps Morbid obesity -BMI is 41.8 -Recommend weight loss -Complicates treatment, prognosis, outcomes -Would recommend patient be evaluated for obstructive sleep apnea if he has not previously done so. DVT prophylaxis -Aspirin 81 mg twice daily and thigh-high Rocky hose compression stockings Charges/Coding Visit Charges Inpatient E&M: 98639 Subs Hosp L2
[2023-08-25] MEDS: Lactated Ringers 1,000 ML 75 ML IV (13:16)
[2023-08-25 14:20] LABS: Bedside Glucose 164 mg/dL (74-106)
[2023-08-25] MEDS: Acetaminophen 500 MG Tablet 1000 MG PO ×2 (16:18→21:20)
[2023-08-25] MEDS: Aspirin 81 MG TAB.CHEW PO (17:05)
[2023-08-25] MEDS: Ensure Surgery 237 ML LIQUID PO (18:03)
[2023-08-25] MEDS: Cefazolin 1 GM/50 ML BAG IV (18:35)
[2023-08-26] VITALS (8 sets, daily range): BP systolic 109–152; BP diastolic 45–110; PULSE 87–101; RESP 16–22; TEMP 36.6–36.9; O2SAT 92–96
[2023-08-26] MEDS: Cefazolin 1 GM/50 ML BAG IV (02:20)
[2023-08-26] MEDS: Ketorolac 15 MG/ML Vial IV ×2 (03:15→11:34)
[2023-08-26] MEDS: Acetaminophen 500 MG Tablet 1000 MG PO ×3 (05:26→21:50)
[2023-08-26] MEDS: oxyCODONE 5 MG Tablet PO ×4 (05:33→21:50)
[2023-08-26 07:46] LABS: Hematocrit 33.1 % (40-54); Hemoglobin 10.3 g/dL (13.0-16.5); Mean Corp Hgb Conc 31.1 g/dL (32-36); Mean Corpuscular Hgb 32.6 pg (27.0-32.0); Mean Corpuscular Volume 104.7 fL (80-94); Mean Platelet Vol. 10.6 fl (6.2-12.0); Platelet Count 109 K/mm3 (150-450); RBC Distribution Width CV 14.6 % (11.6-14.6); Red Blood Count 3.16 M/mm3 (4.6-6.2); White Blood Count 7.5 K/mm3 (4.4-11.0)
[2023-08-26 08:09] LABS: Anion Gap 3 (5-15); BUN 34 mg/dL (7-18); BUN/Creat Ratio 22.7 RATIO (10-20); Calcium,Total 8.3 mg/dL (8.5-10.1); Chloride 110 mmol/L (98-107); EST Glomerular Filtration Rate 50 mL/min (>60); Est Glom Filt Rate - Afr Amer 60 mL/min (>60); Estimated Creatinine Clearance 82.66 ml/min; Glucose 218 mg/dL (74-106); Potassium 5.7 mmol/L (3.5-5.1); Sodium Level 141 mmol/L (136-145)
--- NOTE | 2023-08-26 09:35 | CASEMGMT ---
RN KENYA Assessment: Face to Face with pt for initial transition planning/care coordination assessment. RN CM introduced self and role at [facility], pt voices understanding and consents to assessment. Pt is A&O x4 and answers all questions appropriately at this time. Pt sitting up in bed with oxygen on in no distress with at bedside. Care providers, pharmacy, and demographics verified/updated. Admitting Dx:robotic assisted L total knee PCP:Gricel Specialists:eric Luz; SARAI Orozco Preferred Pharmacy:[facility] Retail Insurance:[employer] Prescription Benefit: yes LNOK:Danielle Turner, Living Arrangements: Pt lives with in a bilevel home with 1 step to enter without a rail. Pt then has 6 steps with a rail to go to kitchen and livingroom followed by 6 more steps with a rail to bedroom and full bathroom. Pt assists with bathing and LB dresing. Pt prepares meals and does laundry, pt goes to get groceries with . Pt denies concerns at home. Transportation: Pt does not drive, provides transportation. DME:[facility] HHC/SNF:Denies hx of Pt states he cannot return home after dc as pt is unable to assist him at home d/t her own health issues. Pt states he was approved for [facility] through [employer]. He states he would like to go to [facility]. Made him aware this RN CM would check on this. He is aware that therapy needs to evaluate him for needs post surgery. TC to [facility], spoke with Alee who confirmed that [employer] did approve one week at [facility]. She states she will fax the C-9 to this RN CM. She states was unable to secure a bed there, but has the authorization. Updated SW. Pt states no further concerns/needs. CM to follow. Advised pt to ask CM if any further question/concerns/needs arise, voices understanding. Pt Goal:[facility] Plan:TBD pending therapy evals
[2023-08-26] MEDS: Aspirin 81 MG TAB.CHEW PO ×2 (10:10→17:23)
[2023-08-26] MEDS: Ensure Surgery 237 ML LIQUID PO (10:10)
[2023-08-26] MEDS: Folic Acid 1 MG Tablet PO (10:10)
[2023-08-26] MEDS: Cholecalciferol (VIT D3) 25 MCG TABLET (1,000 UNITS) PO (10:10)
[2023-08-26] MEDS: Famotidine 20 MG Tablet PO (10:10)
[2023-08-26] MEDS: Doxycycline 100 MG CAPSULE PO ×2 (10:10→21:50)
--- NOTE | 2023-08-26 10:50 | PN.ORTHO_ITS ---
Subjective Subjective The patient was sitting in bed upon examination with his present. Patient denies any chest pain, shortness of breath, dizziness, lightheadedness, nausea or vomiting, or calf pain. Patient states he has increased pain with his left knee but medications are helpful. He has been on 5 L nasal oxygen overnight. Patient has suspected sleep apnea in which he is aware this is an outpatient workup in which she may require CPAP machine. He has not had any discussion with his primary care physician. Patient has continued today on nasal oxygen. He has had some elevated blood pressure. Patient does have history of spine injury in which she has chronic neurologic deficit on the right lower extremity with atrophy and foot drop. Objective Data Objective Data Vital Signs: Vital Signs Temp Pulse Resp BP Pulse Ox O2 Del Method O2 Flow Rate 97.9 F 87 18 148/110 H 93 High Flow 5 08/26/23 10:00 08/26/23 10:00 08/26/23 10:00 08/26/23 10:00 08/26/23 10:00 08/26/23 10:00 08/26/23 10:00 Oxygen Flow Rate (L/min) 5 Oxygen Delivery Method High Flow Weight: 160 kg Body Mass Index (BMI) 41.8 Intake & Output: Intake and Output for Last 24 Hours 08/24/23 08/25/23 08/26/23 23:59 23:59 23:59 Intake Total 3537 / 3537 50 / 50 Output Total 450 / 450 Balance 3537 / 3287 -400 / -400 Lab / Micro Data 08/26/23 06:43 08/26/23 06:43 Labs: Laboratory Results - last 24 hr 08/25/23 14:02: POC Glucose 164 H 08/26/23 06:43: WBC 7.5, RBC 3.16 L, Hgb 10.3 L, Hct 33.1 L, MCV 104.7 H, MCH 32.6 H, MCHC 31.1 L, RDW Std Deviation 57.0 H, RDW Coeff of Tan 14.6, Plt Count 109 L, MPV 10.6, Sodium 141, Potassium 5.7 H, Chloride 110 H, Carbon Dioxide 28.0, Anion Gap 3 L, BUN 34 H, Creatinine 1.50 H, Estim Creat Clear Calc 82.66, Est GFR (MDRD) Af Amer 60, Est GFR (MDRD) Non-Af 50 L, BUN/Creatinine Ratio 22.7 H, Glucose 218 H, Calcium 8.3 L Radiography Diagnostic Testing: Radiology Impression Knee X-Ray 08/25/23 02:03 IMPRESSION: Status post total knee replacement. There is good alignment. Postoperative soft tissue changes. Electronically Signed: Luis Manuel Nelson MD at 14:24 EST , Physical Exam Narrative Vital signs stable and afebrile. Patient currently on nasal oxygen, he does have elevated blood pressure. SCDs and KAT hose are in place bilaterally Patient is able to plantarflex and dorsiflex actively on the left. Patient has history of foot drop on the right and is unable to dorsiflex. Sensation is intact to light touch to saphenous, sural, superficial and deep peroneal, and tibial distribution on the left with some decrease sensation on the right Dressings are clean dry and intact. Negative Homans bilaterally, negative signs and symptoms of DVT. Const alert, oriented x3 and no apparent distress Assessment & Plan Assessment/Plan (1) Status post total left knee replacement: PLAN: 1. S/P left total knee arthroplasty POD #1 2. Continue Pain Medications: Tylenol, meloxicam, oxycodone. Do not take any other nonsteroidal anti-inflammatories while using meloxicam/Mobic. 3. DVT Prophylaxis: Take 81 mg aspirin twice daily for 4 weeks postoperatively for DVT prophylaxis. Patient denies past history of DVT or pulmonary embolism 4. PT/OT: Weightbearing as tolerated with walker. Appreciate recommendations from physical therapy. There are concerns with patient's ability to recover as he has chronic neurologic deficit on the right lower extremity with foot drop. 5. H & H: 10.3/33.1, asymptomatic. Monitoring patient's hemoglobin and hematocrit with postoperative anemia without any intra operative complications. At this time no treatment is required. 6. Continue postoperative medical management per medicine: Case was discussed with medicine and they are going to repeat patient's BMP. There is been hyperkalemia on the morning lab work and slight elevation in his creatinine at 1.5. Preoperatively he was at 0.94. 7. Currently on doxycycline for 2 weeks postoperatively due to elevated BMI greater than 40.0. I discussed with the patient potential side effects of doxycycline including sensitivity to the sunlight and increased risk of skin burn. Recommend patient take appropriate precautions. Also recommend patient to take probiotic while on the antibiotic. Patient voiced understanding agreement. 8. Encouraged Incentive Spirometry 9. Disposition: Case management is currently involved with appropriate discharge planning. Patient's current situation on his left knee is under Worker's Comp. Due to patient's morbid obesity, chronic neurologic deficits on the right, and not enough assistance at home there is concern for discharge home. Appreciate recommendations from physical therapy. Patient will continue with above medications. Appreciate recommendations from medicine. I also had discussion with patient and his with his suspected sleep apnea. I highly recommended he follow-up with his primary care physician for appropriate workup upon discharge. They both voiced understanding. I have reviewed the [place] Automated Rx Reporting System (OARRS) report for this patient for refill pattern and other prescriber involvement as part of the appropriate surveillance for the provision of acute and chronic controlled medications. The report was requested and reviewed on the date of this entry and was considered in the prescribing process. This dictation was created using voice recognition software. Phonetic and/or grammatical errors may exist. (2) Chronic venous insufficiency: (3) Obesity, morbid:
[2023-08-26 11:19] LABS: Anion Gap 2 (5-15); BUN 37 mg/dL (7-18); BUN/Creat Ratio 19.4 RATIO (10-20); Calcium,Total 8.5 mg/dL (8.5-10.1); Chloride 109 mmol/L (98-107); Creatinine, Serum 1.91 mg/dL (0.70-1.30); EST Glomerular Filtration Rate 38 mL/min (>60); Est Glom Filt Rate - Afr Amer 46 mL/min (>60); Estimated Creatinine Clearance 64.91 ml/min; Glucose 174 mg/dL (74-106); Potassium 5.3 mmol/L (3.5-5.1); Sodium Level 139 mmol/L (136-145)
[2023-08-26] MEDS: 0.9% Saline Lock 10 ML Syringe IV (11:34)
[2023-08-26] MEDS: Ferrous Sulfate 325 MG Tablet 650 MG PO (11:35)
--- NOTE | 2023-08-26 11:40 | CASEMGMT ---
Addendum entered by Maida Yousif 08/26/23 16:24: Social Work Inpatient Rehab is unable to accept pt. MIHIR met with pt and updated and ask for next choices. Pt requesting [facility]. 2 messages left with [facility] to confirm if they accept Workers Comp. No return calls. DC catering administrative assistant updated and will send referral through [employer]. SW requested pt review SNF list and make other choices in the event [facility] is unable to accept. ARCHIE Silva Original Note: Social Work SW received referral from RNKENYA that pt is requesting placement at TCU and that [facility] has received authorization from Workers Comp for TCU. SW received copy of C9 from [facility] approving TCU. Referral made to Kaitlin in TCU. TCU does not accept Workers Comp. Inpatient Rehab does accept Workers Comp, but pt would need to be reviewed and determination on approval is needed. MIHIR met with pt and his in pt's room. SW explained that although [facility] got approval for TCU, TCU does not accept Workers Comp. MIHIR did explain differences between TCU and Inpatient Rehab and that RU may be an option, however pt would need to be accepted and Workers Comp would need to approve this level of care. Pt and are agreeable to referral to RU. MIHIR did explain that if RU is not an option, a SNF level of care would be appropriate. A list of SNF providers including quality and resource use data and consistent with the patient?s preferred geographic region, medical needs, and insurance network were provided from the [employer]Port Guide. MIHIR requested pt and review list and make next choices should [facility] not be approved. Referral made to [facility] inpatient Rehab. Will await determination. ARCHIE Silva
--- NOTE | 2023-08-26 14:47 | CASEMGMT ---
Social Work SW received phone call from Rafaela, Bakery Supervisor at [facility] ([employer]). Rafaela requesting clinicals be faxed. . Clinical update faxed to Rafaela. MIHIR updated Rafaela that TCU does not accept workers comp and that referral has been sent to inpatient rehab. Rafaela understanding and requesting notification on determination on acceptance. ARCHIE Silva
--- NOTE | 2023-08-26 17:20 | PCM.PN.HOSP ---
Reason for Visit Reason for Visit: Diagnoses Morbid (severe) obesity due to excess calories (08/25/23) Venous insufficiency (chronic) (peripheral) (08/25/23) Unilateral primary osteoarthritis, left knee (08/25/23) Presence of left artificial knee joint (08/25/23) Subjective Subjective Patient was seen and examined today, I talked briefly with orthopedic surgery about his care. Patient will need placement at least short-term and shelter facility for rehab services, because he is Workmen's Comp., this may take longer. Patient's potassium was slightly elevated this morning, I do not have a reason why, patient's creatinine is 1.9 today, I have encouraged him to drink more fluid and I will recheck his lab tomorrow. Objective Data Objective Data Vital Signs: Vital Signs Temp Pulse Resp BP Pulse Ox O2 Del Method O2 Flow Rate 97.9 F 88 18 126/66 H 94 Nasal Cannula 5 08/26/23 15:18 08/26/23 15:18 08/26/23 15:18 08/26/23 15:18 08/26/23 15:18 08/26/23 15:18 08/26/23 15:18 Oxygen Flow Rate (L/min) 5 Oxygen Delivery Method Nasal Cannula Weight: 160 kg Body Mass Index (BMI) 41.8 Intake & Output: Intake and Output for Last 24 Hours 08/24/23 08/25/23 08/26/23 23:59 23:59 23:59 Intake Total 3537 / 3537 850 / 850 Output Total 450 / 450 Balance 3537 / 3287 400 / 400 Lab / Micro Data 08/26/23 06:43 08/26/23 10:55 Labs: Laboratory Results - last 24 hr 08/26/23 06:43: WBC 7.5, RBC 3.16 L, Hgb 10.3 L, Hct 33.1 L, MCV 104.7 H, MCH 32.6 H, MCHC 31.1 L, RDW Std Deviation 57.0 H, RDW Coeff of Tan 14.6, Plt Count 109 L, MPV 10.6, Sodium 141, Potassium 5.7 H, Chloride 110 H, Carbon Dioxide 28.0, Anion Gap 3 L, BUN 34 H, Creatinine 1.50 H, Estim Creat Clear Calc 82.66, Est GFR (MDRD) Af Amer 60, Est GFR (MDRD) Non-Af 50 L, BUN/Creatinine Ratio 22.7 H, Glucose 218 H, Calcium 8.3 L 08/26/23 10:55: Sodium 139, Potassium 5.3 H, Chloride 109 H, Carbon Dioxide 28.0, Anion Gap 2 L, BUN 37 H, Creatinine 1.91 H, Estim Creat Clear Calc 64.91, Est GFR (MDRD) Af Amer 46 L, Est GFR (MDRD) Non-Af 38 L, BUN/Creatinine Ratio 19.4, Glucose 174 H, Calcium 8.5 Physical Exam Const alert, oriented x3 and no apparent distress Constitutional Narrative: Patient is morbidly obese General Appearance: cooperative, well kempt and well developed Orientation / Consciousness: awake, oriented to person, oriented to place and oriented to time HEENT normocephalic, head/scalp atraumatic and moist oral mucous membranes Eyes PERRL, EOMs intact bilaterally and conjunctivae normal Neck supple, no JVD, thyroid normal and no carotid bruits General: trachea midline Resp normal respiratory effort, no retractions, no use of accessory muscles and clear to auscultation bilaterally Auscultation: Negative for rales, rhonchi or wheezes Cardio regular rate, regular rhythm, S1 normal heart sound, S2 normal heart sound, no murmurs, no rub and no gallops GI normal to inspection, nondistended, normoactive bowel sounds, soft to palpation, non-tender and non-distended Extremity no clubbing, cyanosis or edema Skin no rashes or lesions noted General Skin Exam: no breakdown Neuro oriented x3 and CN's II-XII intact bilaterally Sensorium / Orientation: awake and alert Speech: speech normal Psych affect normal Assessment & Plan Assessment/Plan (1) Status post total left knee replacement: PLAN: Plan 1. Type 2 diabetes-patient is currently diet controlled and is not on any medications. #2 morbid obesity-complicates care, medical course, recovery, and prognosis #3 osteoarthritis of the left knee-postop day #1 left total knee replacement, PT and OT are seeing patient, orthopedic surgery is participating in his care #4 hypoxia-etiology unclear at this time, patient is currently on nasal cannula oxygen, oxygen will be weaned if possible #5 elevated creatinine-patient's labs will be rechecked tomorrow Total clinical time spent by myself addressing the patient's medical issues, reviewing all of his data, and collaborating with patient's care team: 25-minute Charges/Coding Visit Charges Inpatient E&M: 36603 Subs Hosp L1
[2023-08-27] VITALS (7 sets, daily range): BP systolic 117–154; BP diastolic 59–84; PULSE 85–88; RESP 16–18; TEMP 36.6–36.8; O2SAT 92–96
[2023-08-27] MEDS: 0.9% Saline Lock 10 ML Syringe IV (04:27)
[2023-08-27] MEDS: Ketorolac 15 MG/ML Vial IV (04:27)
[2023-08-27] MEDS: Acetaminophen 500 MG Tablet 1000 MG PO ×3 (05:07→21:14)
[2023-08-27 07:08] LABS: Hematocrit 30.6 % (40-54); Hemoglobin 9.2 g/dL (13.0-16.5); Mean Corp Hgb Conc 30.1 g/dL (32-36); Mean Corpuscular Hgb 31.5 pg (27.0-32.0); Mean Corpuscular Volume 104.8 fL (80-94); POSITIVE COUNT YES; Platelet Count 76 K/mm3 (150-450); RBC Distribution Width CV 14.7 % (11.6-14.6); RBC Distribution Width SD 56.8 fl (35.1-43.9); Red Blood Count 2.92 M/mm3 (4.6-6.2); White Blood Count 4.3 K/mm3 (4.4-11.0)
[2023-08-27 07:16] LABS: Scan Indicated on CBC? Y/N YES- FLAGS NOTED
[2023-08-27 07:19] LABS: Anion Gap 2 (5-15); BUN 59 mg/dL (7-18); BUN/Creat Ratio 30.7 RATIO (10-20); Calcium,Total 8.4 mg/dL (8.5-10.1); Chloride 110 mmol/L (98-107); Creatinine, Serum 1.92 mg/dL (0.70-1.30); EST Glomerular Filtration Rate 38 mL/min (>60); Est Glom Filt Rate - Afr Amer 45 mL/min (>60); Estimated Creatinine Clearance 64.58 ml/min; Glucose 189 mg/dL (74-106); Potassium 5.1 mmol/L (3.5-5.1); Sodium Level 141 mmol/L (136-145)
[2023-08-27 07:38] LABS: Differential Comment SCANNED
[2023-08-27] MEDS: Cholecalciferol (VIT D3) 25 MCG TABLET (1,000 UNITS) PO (08:45)
[2023-08-27] MEDS: Folic Acid 1 MG Tablet PO (08:45)
[2023-08-27] MEDS: Famotidine 20 MG Tablet PO (08:45)
[2023-08-27] MEDS: Doxycycline 100 MG CAPSULE PO ×2 (08:45→21:14)
[2023-08-27] MEDS: Meloxicam 7.5 MG Tablet PO (08:45)
[2023-08-27] MEDS: Aspirin 81 MG TAB.CHEW PO ×2 (08:45→16:45)
[2023-08-27] MEDS: Ferrous Sulfate 325 MG Tablet PO ×2 (08:45→16:45)
--- NOTE | 2023-08-27 09:57 | CASEMGMT ---
Addendum entered by Maida Yousif 08/27/23 15:54: Social Work [facility] and [facility] do not have beds available. [facility] is able to accept pt if they can negotiate a lopez with workers comp. [facility] and Rafaela at [facility] are currently working on this together. SW met with pt and updated. Pt states that therapy did not go great today and deferred decision making to his . Phone call to pt's Danielle who feels pt will need SNF at time of discharge as he has steps to get to bed and bathroom and cannot do them at this time. Danielle is aware that [facility] is working with [facility] and that acceptance is not final. A new C9 will be needed when accepting facility is confirmed. Pt will be here through the weekend while this is being worked out. JIMMY Trevino updated. Plan: [facility], pending acceptance and new C9 from Workers Comp ARCHIE Silva Original Note: Social Work SW received message from [facility] that they do not accept workers comp. MIHIR met with pt and his . Updated that [facility] and [facility] do not accept workers compt. [facility] has denied acceptance. SW inquired about additional choices of SNF. Pt inquiring if he can just return home. Pt explained levels of care including short term SNF, home with home health care and home with outpatient therapy. Pt's does not feel pt can return home. PT/OT currently in room and getting ready for treatment. SW encouraged pt to work with therapy and this will assist with decision if he can return home or if he will need SNF placement. Pt and requesting referrals to be made to [facility], [facility] and [facility] and they will make decision on dispostion after therapy. DC assistant professor of english updated and to send referrals. SW to follow up once pt has been seen by therapy and decisions have been obtained from 3 facilities. ARCHIE Silva
--- NOTE | 2023-08-27 09:59 | PCM.PN.ORT ---
Subjective Subjective Patient doing well overall. Reports pain is 7.5 out of 10 with ambulation. Does have good range of motion with physical therapy. Been able to walk down the hallway with physical therapy. Doing transfers this morning with physical therapy. No acute events overnight. However, he does remain on 4 L of oxygen this morning. Otherwise has been medically stable. No chest pain or shortness of breath. No dizziness or lightheadedness. Objective Data Objective Data Vital Signs: Vital Signs Temp Pulse Resp BP Pulse Ox O2 Del Method O2 Flow Rate 98 F 86 18 117/59 L 94 High Flow 4 08/27/23 08:31 08/27/23 08:31 08/27/23 08:31 08/27/23 08:31 08/27/23 08:31 08/27/23 08:35 08/27/23 08:35 Oxygen Flow Rate (L/min) 4 Oxygen Delivery Method High Flow Weight: 352 lb 11.834 oz Body Mass Index (BMI) 41.8 Intake & Output: Intake and Output for Last 24 Hours 08/25/23 08/26/23 08/27/23 23:59 23:59 23:59 Intake Total 3537 / 3537 1150 / 1150 Output Total 450 / 450 250 / 250 Balance 3537 / 3287 700 / 700 -250 / -250 Lab / Micro Data Attestation: I reviewed the patient's lab results. 08/27/23 06:30 08/27/23 06:30 Labs: Laboratory Results - last 24 hr 08/26/23 10:55: Sodium 139, Potassium 5.3 H, Chloride 109 H, Carbon Dioxide 28.0, Anion Gap 2 L, BUN 37 H, Creatinine 1.91 H, Estim Creat Clear Calc 64.91, Est GFR (MDRD) Af Amer 46 L, Est GFR (MDRD) Non-Af 38 L, BUN/Creatinine Ratio 19.4, Glucose 174 H, Calcium 8.5 08/27/23 06:30: WBC 4.3 L, RBC 2.92 L, Hgb 9.2 L, Hct 30.6 L, MCV 104.8 H, MCH 31.5, MCHC 30.1 L, RDW Std Deviation 56.8 H, RDW Coeff of Tan 14.7 H, Plt Count 76 L, MPV 10.0, Differential Comment SCANNED, Sodium 141, Potassium 5.1, Chloride 110 H, Carbon Dioxide 29.0, Anion Gap 2 L, BUN 59 H, Creatinine 1.92 H, Estim Creat Clear Calc 64.58, Est GFR (MDRD) Af Amer 45 L, Est GFR (MDRD) Non-Af 38 L, BUN/Creatinine Ratio 30.7 H, Glucose 189 H, Calcium 8.4 L Physical Exam Narrative Left lower extremity: Dressing is clean dry and intact Sensations intact to light touch saphenous, sural, superficial peroneal, deep peroneal, and tibial distributions Motors intact EHL, DF, PF calves are soft and supple Const alert, oriented x3 and no apparent distress Assessment & Plan Assessment/Plan (1) Status post total left knee replacement: PLAN: 1. S/P left total knee arthroplasty POD #2 2. Continue Pain Medications: Tylenol, oxycodone. Meloxicam discontinued due to increase in BUN and creatinine 3. DVT Prophylaxis: Take 81 mg aspirin twice daily for 4 weeks postoperatively for DVT prophylaxis. Patient denies past history of DVT or pulmonary embolism 4. PT/OT: Weightbearing as tolerated with walker. Appreciate recommendations from physical therapy. There are concerns with patient's ability to recover as he has chronic neurologic deficit on the right lower extremity with foot drop. Patient did have promising session with physical therapy this morning. He has been able to ambulate up and down the hallway. Patient remains concerned about stairs he has to navigate at home. 5. H & H: 9..6, patient does have hypoxia but is otherwise asymptomatic. Monitoring patient's hemoglobin and hematocrit with postoperative anemia without any intra operative complications. At this time no treatment is required. 6. Continue postoperative medical management per medicine: Case was discussed with medicine and they are going to repeat patient's BMP. Hyperkalemia is resolving. Patient's BUN and creatinine did again increase. Meloxicam will be discontinued 7. Currently on doxycycline for 2 weeks postoperatively due to elevated BMI greater than 40.0. I discussed with the patient potential side effects of doxycycline including sensitivity to the sunlight and increased risk of skin burn. Recommend patient take appropriate precautions. Also recommend patient to take probiotic while on the antibiotic. Patient voiced understanding agreement. 8. Hypoxia: Case was discussed with the medical team. They will begin hypoxia workup today. There is some concern for sleep apnea and chronic conditions. He was not on oxygen at home. Will continue to encourage incentive spirometry. Will remain in contact with medical team. 9. Disposition: Case management is currently involved with appropriate discharge planning. Patient's current situation on his left knee is under Worker's Comp. Due to patient's morbid obesity, chronic neurologic deficits on the right, and not enough assistance at home there is concern for discharge home. Patient's was at bedside today and after watching therapy did feel slightly more comfortable with considering home discharge however at this point there is still considerable concern for falls based on the need to navigate a number of stairs at home and his right lower extremity neurologic deficits. Appreciate recommendations from physical therapy. Patient will continue with above medications. Appreciate recommendations from medicine. I also had discussion with patient and his with his suspected sleep apnea. I highly recommended he follow-up with his primary care physician for appropriate workup upon discharge. They both voiced understanding. [facility] Office: This dictation was created using voice recognition software. Phonetic and/or grammatical errors may exist. (2) Chronic venous insufficiency: PLAN: Can affect wound healing and outcome. Will monitor, medical consultation (3) Obesity, morbid: PLAN: Can affect postoperative outcome. Medical consultation placed (4) Hypoxia: PLAN: Discussed with medicine team will begin hypoxia workup today.
--- NOTE | 2023-08-27 10:03 | CASEMGMT ---
Addendum entered by Maribell Sanders 08/27/23 14:13: Both Ricardo Lemon and Michelle declined referral. Maribell Sanders, Discharge Planning Asst. Original Note: Discharge Planning Referral sent via [facility] to Michelle Arauz, and Ricardo Lemon. Maribell Sanders, Discharge Planning Asst.
--- NOTE | 2023-08-27 10:35 | RAD_ITS ---
STUDY: X-RAY CHEST REASON FOR EXAM: Male, 62 years old. Hypoxia TECHNIQUE: Single AP portable view of the chest. COMPARISON: Comparison is made with prior study dated January 15, 2022. FINDINGS: Increased markings in the right lower lobe suggestive of either early infiltrate and/or atelectasis. There is blunting of the left costophrenic angle. Normal size heart. Normal mediastinum and tay. Normal visualized pulmonary arteries. There is atherosclerotic tortuosity of the aortic arch and descending thoracic aorta. Normal visualized thoracic spine. Normal visualized ribs, clavicles, and shoulders. There is no demonstrated abnormality of the visualized soft tissue structures of the upper abdomen. RAD/Chest 1 View (Portable) IMPRESSION: Atelectasis and/or early infiltrate in the medial aspect of the left lower lobe with blunting of the left costophrenic angle. Electronically Signed: Luis Manuel Nelson MD at 11:14 EST ,
[2023-08-27] MEDS: oxyCODONE 5 MG Tablet PO ×2 (13:42→21:17)
[2023-08-27] MEDS: Calcium Carbonate 500 MG Tablet 1000 MG PO ×2 (16:33→21:17)
--- NOTE | 2023-08-27 18:08 | PCM.PN.HOSP ---
Reason for Visit Reason for Visit: Diagnoses Morbid (severe) obesity due to excess calories (08/25/23) Venous insufficiency (chronic) (peripheral) (08/25/23) Unilateral primary osteoarthritis, left knee (08/25/23) Hypoxemia (08/25/23) Presence of left artificial knee joint (08/25/23) Subjective Subjective Patient was seen and examined today, I talked with orthopedic surgery about his care, he required higher oxygen setting this morning to maintain his pulse ox, this afternoon he was on 3 L. Patient had a chest x-ray performed today which showed a small left pleural effusion and evidence of atelectasis. I placed patient on aerosol treatments and gave him 1 dose of Lasix-patient refused to take the Lasix however. Patient's creatinine today was 1.92, his hemoglobin was 9.2 Objective Data Objective Data Vital Signs: Vital Signs Temp Pulse Resp BP Pulse Ox O2 Del Method O2 Flow Rate 98.2 F 86 18 148/84 H 96 Nasal Cannula 3 08/27/23 15:00 08/27/23 15:00 08/27/23 15:00 08/27/23 15:00 08/27/23 15:00 08/27/23 16:41 08/27/23 16:41 Oxygen Flow Rate (L/min) 3 Oxygen Delivery Method Nasal Cannula Weight: 160 kg Body Mass Index (BMI) 41.8 Intake & Output: Intake and Output for Last 24 Hours 08/25/23 08/26/23 08/27/23 23:59 23:59 23:59 Intake Total 3537 / 3537 1150 / 1150 Output Total 450 / 450 250 / 250 Balance 3537 / 3287 700 / 700 -250 / -250 Lab / Micro Data 08/27/23 06:30 08/27/23 06:30 Labs: Laboratory Results - last 24 hr 08/27/23 06:30: WBC 4.3 L, RBC 2.92 L, Hgb 9.2 L, Hct 30.6 L, MCV 104.8 H, MCH 31.5, MCHC 30.1 L, RDW Std Deviation 56.8 H, RDW Coeff of Tan 14.7 H, Plt Count 76 L, MPV 10.0, Differential Comment SCANNED, Sodium 141, Potassium 5.1, Chloride 110 H, Carbon Dioxide 29.0, Anion Gap 2 L, BUN 59 H, Creatinine 1.92 H, Estim Creat Clear Calc 64.58, Est GFR (MDRD) Af Amer 45 L, Est GFR (MDRD) Non-Af 38 L, BUN/Creatinine Ratio 30.7 H, Glucose 189 H, Calcium 8.4 L Radiography Diagnostic Testing: Radiology Impression Chest X-Ray 08/27/23 10:35 IMPRESSION: Atelectasis and/or early infiltrate in the medial aspect of the left lower lobe with blunting of the left costophrenic angle. Electronically Signed: Luis Manuel Nelson MD at 11:14 EST , Physical Exam Narrative alert, oriented x3 and no apparent distress Constitutional Narrative: Patient is morbidly obese General Appearance: cooperative, well kempt and well developed Orientation / Consciousness: awake, oriented to person, oriented to place and oriented to time HEENT normocephalic, head/scalp atraumatic and moist oral mucous membranes Eyes PERRL, EOMs intact bilaterally and conjunctivae normal Neck supple, no JVD, thyroid normal and no carotid bruits General: trachea midline Resp normal respiratory effort, no retractions, no use of accessory muscles and clear to auscultation bilaterally Auscultation: Negative for rales, rhonchi or wheezes Cardio regular rate, regular rhythm, S1 normal heart sound, S2 normal heart sound, no murmurs, no rub and no gallops GI normal to inspection, nondistended, normoactive bowel sounds, soft to palpation, non-tender and non-distended Extremity no clubbing, cyanosis or edema Skin no rashes or lesions noted General Skin Exam: no breakdown Neuro oriented x3 and CN's II-XII intact bilaterally Sensorium / Orientation: awake and alert Speech: speech normal Psych affect normal Assessment & Plan Assessment/Plan (1) Status post total left knee replacement: PLAN: Plan 1. Type 2 diabetes-patient is currently diet controlled and is not on any medications. #2 morbid obesity-complicates care, medical course, recovery, and prognosis #3 osteoarthritis of the left knee-postop day #1 left total knee replacement, PT and OT are seeing patient, orthopedic surgery is participating in his care #4 hypoxia-secondary to atelectasis, again patient was placed on aerosol treatments and encouraged to use incentive spirometry #5 elevated creatinine-patient's labs will be rechecked tomorrow Total clinical time spent by myself addressing the patient's medical issues, reviewing all of his data, and collaborating with patient's care team: 25-minute Charges/Coding Visit Charges Inpatient E&M: 99217 Subs Hosp L1
[2023-08-28 03:00] VITALS: BP 134/71; PULSE 88; RESP 16; TEMP 36.6; O2SAT 94
[2023-08-28] MEDS: Acetaminophen 500 MG Tablet 1000 MG PO ×3 (04:46→21:07)
[2023-08-28 06:38] LABS: Absolute Lymphocyte Count 0.69 X10^3/uL (0.83-4.51); Absolute Neutrophil Count 2.4 X10^3/uL (2.0-7.7); Basophil# 0.01 X10^3/uL; Basophil% 0.3 % (0-1); Eosinophil# 0.13 X10^3/uL; Eosinophils% 3.7 % (0-5); Hematocrit 29.5 % (40-54); Hemoglobin 9.1 g/dL (13.0-16.5); Lymphocyte # 0.69 X10^3/ul (0.83-4.51); Lymphocyte % 19.4 % (19-41); Mean Corp Hgb Conc 30.8 g/dL (32-36); Mean Corpuscular Hgb 31.6 pg (27.0-32.0); Mean Corpuscular Volume 102.4 fL (80-94); Mean Platelet Vol. 10.4 fl (6.2-12.0); Monocyte# 0.33 X10^3/uL; Monocyte% 9.3 % (0-10); NRBC Flagged by Analyzer 0 % (0-5); Neutrophil # 2.39 X10^3/uL (2.7-7.7); POSITIVE COUNT YES; Platelet Count 76 K/mm3 (150-450); RBC Distribution Width CV 14.6 % (11.6-14.6); RBC Distribution Width SD 55.2 fl (35.1-43.9); Red Blood Count 2.88 M/mm3 (4.6-6.2); White Blood Count 3.6 K/mm3 (4.4-11.0)
[2023-08-28 07:06] VITALS: O2SAT 95
[2023-08-28 07:15] LABS: Anion Gap 1 (5-15); BUN 53 mg/dL (7-18); BUN/Creat Ratio 42.4 RATIO (10-20); Calcium,Total 8.6 mg/dL (8.5-10.1); Chloride 111 mmol/L (98-107); Creatinine, Serum 1.25 mg/dL (0.70-1.30); EST Glomerular Filtration Rate 62 mL/min (>60); Est Glom Filt Rate - Afr Amer 75 mL/min (>60); Estimated Creatinine Clearance 99.19 ml/min; Glucose 125 mg/dL (74-106); Potassium 4.6 mmol/L (3.5-5.1); Sodium Level 140 mmol/L (136-145)
[2023-08-28 10:58] VITALS: BP 143/66; PULSE 87; RESP 16; TEMP 36.7; O2SAT 96
[2023-08-28] MEDS: Aspirin 81 MG TAB.CHEW PO ×2 (11:03→16:49)
[2023-08-28] MEDS: Folic Acid 1 MG Tablet PO (11:03)
[2023-08-28] MEDS: Famotidine 20 MG Tablet PO (11:03)
[2023-08-28] MEDS: Ferrous Sulfate 325 MG Tablet PO ×2 (11:03→16:48)
[2023-08-28] MEDS: Doxycycline 100 MG CAPSULE PO ×2 (11:04→21:06)
[2023-08-28] MEDS: Cholecalciferol (VIT D3) 25 MCG TABLET (1,000 UNITS) PO (11:04)
[2023-08-28] MEDS: oxyCODONE 5 MG Tablet PO (11:08)
--- NOTE | 2023-08-28 12:12 | PN.ORTHO_ITS ---
Subjective Subjective The patient was sitting in bed upon examination with his present. Patient denies any chest pain, shortness of breath, dizziness, lightheadedness, nausea or vomiting, or calf pain. Patient continues to complain of increased pain. He does not appear to be in acute distress. No adverse overnight events. Patient has been working with physical therapy. Patient states he has increased pain with therapy. They have placed a chair in his room that is much easier for him to get up from. They have also adjusted his toilet. We are waiting on correction facility determination from case management. Objective Data Objective Data Vital Signs: Vital Signs Temp Pulse Resp BP Pulse Ox O2 Del Method O2 Flow Rate 98.1 F 87 16 143/66 H 96 Nasal Cannula 3 08/28/23 10:58 08/28/23 10:58 08/28/23 10:58 08/28/23 10:58 08/28/23 10:58 08/28/23 10:58 08/28/23 10:58 Oxygen Flow Rate (L/min) 3 Oxygen Delivery Method Nasal Cannula Weight: 160 kg Body Mass Index (BMI) 41.8 Intake & Output: Intake and Output for Last 24 Hours 08/26/23 08/27/23 08/28/23 23:59 23:59 23:59 Intake Total 1150 / 1150 Output Total 450 / 450 250 / 850 1000 / 1000 Balance 700 / 700 -250 / -850 -1000 / -1000 Lab / Micro Data 08/28/23 05:17 08/28/23 05:17 Labs: Laboratory Results - last 24 hr 08/28/23 05:17: WBC 3.6 L, RBC 2.88 L, Hgb 9.1 L, Hct 29.5 L, MCV 102.4 H, MCH 31.6, MCHC 30.8 L, RDW Std Deviation 55.2 H, RDW Coeff of Tan 14.6, Plt Count 76 L, MPV 10.4, Immature Gran % (Auto) 0.300, Neut % (Auto) 67.0, Lymph % (Auto) 19.4, [place] % (Auto) 9.3, Eos % (Auto) 3.7, Baso % (Auto) 0.3, Absolute Neuts (auto) 2.4, Absolute Lymphs (auto) 0.69 L, Nucleated RBC % 0, Sodium 140, Potassium 4.6, Chloride 111 H, Carbon Dioxide 28.0, Anion Gap 1 L, BUN 53 H, Creatinine 1.25, Estim Creat Clear Calc 99.19, Est GFR (MDRD) Af Amer 75, Est GFR (MDRD) Non-Af 62, BUN/Creatinine Ratio 42.4 H, Glucose 125 H, Calcium 8.6 Physical Exam Narrative Vital signs stable and afebrile. SCDs and KAT hose are in place bilaterally Patient is able to plantarflex and dorsiflex actively. Sensation is intact to light touch to saphenous, sural, superficial and deep peroneal, and tibial distribution. Dressing is clean dry and intact. Negative Homans bilaterally, negative signs and symptoms of DVT. Const alert, oriented x3 and no apparent distress Assessment & Plan Assessment/Plan (1) Status post total left knee replacement: PLAN: 1. S/P left total knee arthroplasty POD #3 2. Continue Pain Medications: Tylenol, oxycodone. Meloxicam discontinued due to increase in BUN and creatinine. The creatinine has improved and currently 1.25 today. 3. DVT Prophylaxis: Take 81 mg aspirin twice daily for 4 weeks postoperatively for DVT prophylaxis. Patient denies past history of DVT or pulmonary embolism 4. PT/OT: Weightbearing as tolerated with walker. Appreciate recommendations from physical therapy. There are concerns with patient's ability to recover as he has chronic neurologic deficit on the right lower extremity with foot drop. Patient did have promising session with physical therapy this morning. He has been able to ambulate up and down the hallway. Patient remains concerned about stairs he has to navigate at home. 5. H & H: 9.08/09.5, patient does have hypoxia but is otherwise asymptomatic. Patient is currently on ferrous sulfate and folic acid. Will repeat CBC tomorrow. 6. Continue postoperative medical management per medicine: 7. Currently on doxycycline for 2 weeks postoperatively due to elevated BMI greater than 40.0. I discussed with the patient potential side effects of doxycycline including sensitivity to the sunlight and increased risk of skin burn. Recommend patient take appropriate precautions. Also recommend patient to take probiotic while on the antibiotic. Patient voiced understanding agreement. 8. Hypoxia: Patient did have chest x-ray which was found for atelectasis. Aerosol treatments have been initiated and encouraging incentive spirometer. Patient is now on 3 L of nasal oxygen. Patient has been advised upon discharge working up for underlying sleep apnea. Appreciate further recommendations from medicine 9. Disposition: Case management is currently involved with appropriate discharge planning. Patient's current situation on his left knee is under Worker's Comp. Due to patient's morbid obesity, chronic neurologic deficits on the right, and not enough assistance at home there is concern for discharge home. Patient's was at bedside today. Patient continues to complain of increased pain and concern for stairs upon going home. I did explain to him that I would not recommend increasing any of the narcotic due to his current hypoxia. Continue to appreciate recommendations from physical therapy. Due to the holiday we may not be able to determine discharge planning until Wednesday. Patient will continue with above medications. Appreciate recomm endations from medicine. I have reviewed the [place] Automated Rx Reporting System (OARRS) report for this patient for refill pattern and other prescriber involvement as part of the appropriate surveillance for the provision of acute and chronic controlled medications. The report was requested and reviewed on the date of this entry and was considered in the prescribing process. This dictation was created using voice recognition software. Phonetic and/or grammatical errors may exist. (2) Chronic venous insufficiency: PLAN: Can affect wound healing and outcome. Will monitor, medical consultation (3) Obesity, morbid: PLAN: Can affect postoperative outcome. Medical consultation placed (4) Hypoxia: PLAN: Discussed with medicine team will begin hypoxia workup today.
[2023-08-28 14:05] VITALS: BP 146/104; PULSE 97; RESP 16; TEMP 36.6; O2SAT 94
[2023-08-28 15:05] VITALS: O2SAT 97
--- NOTE | 2023-08-28 15:57 | PN.HOSP_ITS ---
Reason for Visit Reason for Visit: Diagnoses Morbid (severe) obesity due to excess calories (08/25/23) Venous insufficiency (chronic) (peripheral) (08/25/23) Unilateral primary osteoarthritis, left knee (08/25/23) Hypoxemia (08/25/23) Presence of left artificial knee joint (08/25/23) Subjective Subjective Patient was seen and examined today, he has been refusing his breathing treatments, I stopped them. Patient is still on low-flow nasal cannula oxygen. Objective Data Objective Data Vital Signs: Vital Signs Temp Pulse Resp BP Pulse Ox O2 Del Method O2 Flow Rate 97.9 F 97 16 146/104 H 94 Nasal Cannula 3 08/28/23 14:05 08/28/23 14:05 08/28/23 14:05 08/28/23 14:05 08/28/23 14:05 08/28/23 14:05 08/28/23 14:05 Oxygen Flow Rate (L/min) 3 Oxygen Delivery Method Nasal Cannula Weight: 160 kg Body Mass Index (BMI) 41.8 Intake & Output: Intake and Output for Last 24 Hours 08/26/23 08/27/23 08/28/23 23:59 23:59 23:59 Intake Total 1150 / 1150 240 / 240 Output Total 450 / 450 250 / 850 1000 / 1000 Balance 700 / 700 -250 / -850 -760 / -760 Lab / Micro Data 08/28/23 05:17 08/28/23 05:17 Labs: Laboratory Results - last 24 hr 08/28/23 05:17: WBC 3.6 L, RBC 2.88 L, Hgb 9.1 L, Hct 29.5 L, MCV 102.4 H, MCH 31.6, MCHC 30.8 L, RDW Std Deviation 55.2 H, RDW Coeff of Tan 14.6, Plt Count 76 L, MPV 10.4, Immature Gran % (Auto) 0.300, Neut % (Auto) 67.0, Lymph % (Auto) 19.4, [place] % (Auto) 9.3, Eos % (Auto) 3.7, Baso % (Auto) 0.3, Absolute Neuts (auto) 2.4, Absolute Lymphs (auto) 0.69 L, Nucleated RBC % 0, Sodium 140, Potassium 4.6, Chloride 111 H, Carbon Dioxide 28.0, Anion Gap 1 L, BUN 53 H, Creatinine 1.25, Estim Creat Clear Calc 99.19, Est GFR (MDRD) Af Amer 75, Est GFR (MDRD) Non-Af 62, BUN/Creatinine Ratio 42.4 H, Glucose 125 H, Calcium 8.6 Physical Exam Narrative alert, oriented x3 and no apparent distress Constitutional Narrative: Patient is morbidly obese General Appearance: cooperative, well kempt and well developed Orientation / Consciousness: awake, oriented to person, oriented to place and oriented to time HEENT normocephalic, head/scalp atraumatic and moist oral mucous membranes Eyes PERRL, EOMs intact bilaterally and conjunctivae normal Neck supple, no JVD, thyroid normal and no carotid bruits General: trachea midline Resp normal respiratory effort, no retractions, no use of accessory muscles and clear to auscultation bilaterally Auscultation: Negative for rales, rhonchi or wheezes Cardio regular rate, regular rhythm, S1 normal heart sound, S2 normal heart sound, no murmurs, no rub and no gallops GI normal to inspection, nondistended, normoactive bowel sounds, soft to palpation, non-tender and non-distended Extremity no clubbing, cyanosis or edema Skin no rashes or lesions noted General Skin Exam: no breakdown Neuro oriented x3 and CN's II-XII intact bilaterally Sensorium / Orientation: awake and alert Speech: speech normal Psych affect normal Assessment & Plan Assessment/Plan (1) Status post total left knee replacement: PLAN: Plan 1. Type 2 diabetes-patient is currently diet controlled and is not on any medications. #2 morbid obesity-complicates care, medical course, recovery, and prognosis #3 osteoarthritis of the left knee-postop day #3 left total knee replacement, PT and OT are seeing patient, orthopedic surgery is participating in his care #4 hypoxia-secondary to atelectasis, patient is refusing aerosol treatments at this time, he has been encouraged to use incentive spirometry #5 elevated creatinine-patient's creatinine has dropped to normal Total clinical time spent by myself addressing the patient's medical issues, re viewing all of his data, and collaborating with patient's care team: 25-minute Charges/Coding Visit Charges Inpatient E&M: 39311 Subs Hosp L1
[2023-08-28 20:00] VITALS: BP 148/78; PULSE 91; RESP 16; TEMP 37.1; O2SAT 97
[2023-08-29] VITALS (8 sets, daily range): BP systolic 140–155; BP diastolic 74–87; PULSE 85–96; RESP 16–18; TEMP 36.6–37.2; O2SAT 93–97
[2023-08-29] MEDS: Senna/Docusate Sodium 1 Tablet 2 TABLET PO ×2 (06:19→21:59)
[2023-08-29] MEDS: Acetaminophen 500 MG Tablet 1000 MG PO ×3 (06:19→21:59)
[2023-08-29] MEDS: Aspirin 81 MG TAB.CHEW PO ×2 (09:02→18:05)
[2023-08-29] MEDS: Folic Acid 1 MG Tablet PO (09:03)
[2023-08-29] MEDS: Cholecalciferol (VIT D3) 25 MCG TABLET (1,000 UNITS) PO (09:04)
[2023-08-29] MEDS: Doxycycline 100 MG CAPSULE PO ×2 (09:05→22:00)
[2023-08-29] MEDS: Famotidine 20 MG Tablet PO (09:05)
[2023-08-29] MEDS: Ferrous Sulfate 325 MG Tablet PO ×2 (09:05→18:05)
--- NOTE | 2023-08-29 10:17 | PN.ORTHO_ITS ---
Subjective Subjective The patient was sitting in bed upon examination with his present. Patient denies any chest pain, shortness of breath, dizziness, lightheadedness, nausea or vomiting, or calf pain. No adverse overnight events. Patient states his pain has improved. He had less pain associated with physical therapy. Physical therapy did start to work on steps yesterday. Patient overall does feel better today. We are waiting approval for patient to go to prison facility. Objective Data Objective Data Vital Signs: Vital Signs Temp Pulse Resp BP Pulse Ox O2 Del Method O2 Flow Rate 97.9 F 85 18 148/77 H 96 Nasal Cannula 3 08/29/23 08:56 08/29/23 08:56 08/29/23 08:56 08/29/23 08:56 08/29/23 08:56 08/29/23 08:56 08/29/23 08:56 Oxygen Flow Rate (L/min) 3 Oxygen Delivery Method Nasal Cannula Weight: 160 kg Body Mass Index (BMI) 41.8 Intake & Output: Intake and Output for Last 24 Hours 08/27/23 08/28/23 08/29/23 23:59 23:59 23:59 Intake Total 660 / 860 200 / 200 Output Total 250 / 850 1000 / 1100 100 / 100 Balance -250 / -850 -340 / -240 100 / 100 Lab / Micro Data 08/28/23 05:17 08/28/23 05:17 Physical Exam Narrative Vital signs stable and afebrile. SCDs and KAT hose are in place bilaterally Patient is able to plantarflex and dorsiflex actively. Sensation is intact to light touch to saphenous, sural, superficial and deep peroneal, and tibial distribution. Dressing has mild drainage over the distal one third with remaining dressing clean dry and intact. Negative Homans bilaterally, negative signs and symptoms of DVT. Const alert, oriented x3 and no apparent distress Assessment & Plan Assessment/Plan (1) Status post total left knee replacement: PLAN: 1. S/P left total knee arthroplasty POD #4 2. Continue Pain Medications: Tylenol, oxycodone. Patient states his pain has been improved since yesterday. 3. DVT Prophylaxis: Take 81 mg aspirin twice daily for 4 weeks postoperatively for DVT prophylaxis. Patient denies past history of DVT or pulmonary embolism 4. PT/OT: Weightbearing as tolerated with walker. Appreciate recommendations from physical therapy. There are concerns with patient's ability to recover as he has chronic neurologic deficit on the right lower extremity with foot drop. Patient did have promising session with physical therapy this morning. He has b een able to ambulate up and down the hallway. Patient remains concerned about stairs he has to navigate at home. 5. Continue postoperative medical management per medicine 6. Currently on doxycycline for 2 weeks postoperatively due to elevated BMI greater than 40.0. I discussed with the patient potential side effects of doxycycline including sensitivity to the sunlight and increased risk of skin burn. Recommend patient take appropriate precautions. Also recommend patient to take probiotic while on the antibiotic. Patient voiced understanding agreement. 7. Hypoxia: Patient did have chest x-ray which was found for atelectasis. Aerosol treatments have been initiated and encouraging incentive spirometer. We are trying to wean patient down from oxygen. On exam he had the oxygen off and we will continue to monitor O2 saturation with patient's pulse ox. Patient has been advised upon discharge working up for underlying sleep apnea. 8. Disposition: Case management is currently involved with appropriate discharge planning. Patient's current situation on his left knee is under Wo [employer]ker's Comp. Due to patient's morbid obesity, chronic neurologic deficits on the right, and not enough assistance at home there is concern for discharge home. Patient's was at bedside today. Patient's pain has improved from yesterday. He was able to do more with therapy and did start working on steps. Therapy currently is recommending prison facility upon discharge. Continue to appreciate recommendations from physical therapy. Due to the holiday weekend we may not be able to determine discharge planning until Wednesday. Patient will continue with above medications. Appreciate recommendations from medicine. Patient's was also inquiring about a hospital bed at home. I did explain to him that we would need to check with pillowcase cleaner as this would have to be approved through Worker's Comp. I have reviewed the [place] Automated Rx Reporting System (OARRS) report for this patient for refill pattern and other prescriber involvement as part of the appropriate surveillance for the provision of acute and chronic controlled medications. The report was requested and reviewed on the date of this entry and was considered in the prescribing process. This dictation was created using voice recognition software. Phonetic and/or grammatical errors may exist. (2) Chronic venous insufficiency: PLAN: Can affect wound healing and outcome. Will monitor, medical consultation (3) Obesity, morbid: PLAN: Can affect postoperative outcome. Medical consultation placed (4) Hypoxia: PLAN: Discussed with medicine team will begin hypoxia workup today.
[2023-08-29] MEDS: Furosemide 20 MG/2 ML VIAL IV (11:30)
[2023-08-29] MEDS: 0.9% Saline Lock 10 ML Syringe IV (11:30)
--- NOTE | 2023-08-29 11:41 | NURSING ---
Pt weaned down to RA about an hour ago. Was up to the shower and resting in chair now. spo2 is 93% on RA at rest at this time. Will leave oxygen off at this time but monitor.
[2023-08-29] MEDS: oxyCODONE 5 MG Tablet PO (14:31)
--- NOTE | 2023-08-29 15:26 | PCM.PN.HOSP ---
Reason for Visit Reason for Visit: Diagnoses Morbid (severe) obesity due to excess calories (08/25/23) Venous insufficiency (chronic) (peripheral) (08/25/23) Unilateral primary osteoarthritis, left knee (08/25/23) Hypoxemia (08/25/23) Presence of left artificial knee joint (08/25/23) Subjective Subjective Patient was seen and examined today, I talked with his was in the room at the time my examination explained to her that he had refused aerosol treatments and IV Lasix, she states that he is noncompliant at home with medical treatment, patient has agreed to take the Lasix today-I have written for single dose to see if this would impact his respiratory status. Patient still on nasal cannula oxygen at low flow, he still having a hard time with rehab, he states he is not able to go up stairs which she will need to do before he can go home. Objective Data Objective Data Vital Signs: Vital Signs Temp Pulse Resp BP Pulse Ox O2 Del Method O2 Flow Rate 98.9 F 96 18 146/74 H 93 Room Air 3 08/29/23 14:37 08/29/23 14:37 08/29/23 14:37 08/29/23 14:37 08/29/23 14:37 08/29/23 14:37 08/29/23 08:56 Oxygen Flow Rate (L/min) 3 Oxygen Delivery Method Room Air Weight: 160 kg Body Mass Index (BMI) 41.8 Intake & Output: Intake and Output for Last 24 Hours 08/27/23 08/28/23 08/29/23 23:59 23:59 23:59 Intake Total 660 / 860 200 / 200 Output Total 250 / 850 1000 / 1100 100 / 100 Balance -250 / -850 -340 / -240 100 / 100 Lab / Micro Data 08/28/23 05:17 08/28/23 05:17 Physical Exam Narrative alert, oriented x3 and no apparent distress Constitutional Narrative: Patient is morbidly obese General Appearance: cooperative, well kempt and well developed Orientation / Consciousness: awake, oriented to person, oriented to place and oriented to time HEENT normocephalic, head/scalp atraumatic and moist oral mucous membranes Eyes PERRL, EOMs intact bilaterally and conjunctivae normal Neck supple, no JVD, thyroid normal and no carotid bruits General: trachea midline Resp normal respiratory effort, no retractions, no use of accessory muscles and clear to auscultation bilaterally Auscultation: Negative for rales, rhonchi or wheezes Cardio regular rate, regular rhythm, S1 normal heart sound, S2 normal heart sound, no murmurs, no rub and no gallops GI normal to inspection, nondistended, normoactive bowel sounds, soft to palpation, non-tender and non-distended Extremity no clubbing, cyanosis or edema Skin no rashes or lesions noted General Skin Exam: no breakdown Neuro oriented x3 and CN's II-XII intact bilaterally Sensorium / Orientation: awake and alert Speech: speech normal Psych affect normal Assessment & Plan Assessment/Plan (1) Status post total left knee replacement: PLAN: Plan 1. Type 2 diabetes-patient is currently diet controlled and is not on any medications. #2 morbid obesity-complicates care, medical course, recovery, and prognosis #3 osteoarthritis of the left knee-postop day #4 left total knee replacement, PT and OT are seeing patient, orthopedic surgery is participating in his care, it is likely that the patient will need several more days of inpatient rehab here due to the fact that it is unlikely a nursing facility will be able to take the patient under Workmen's Comp. I talked briefly with orthopedic surgery about this today. #4 hypoxia-secondary to atelectasis, patient is refusing aerosol treatments at this time, he has been encouraged to use incentive spirometry, patient will be given 1 dose of IV Lasix #5 elevated creatinine-patient's creatinine has dropped to normal Total clinical time spent by myself addressing the patient's medical issues, reviewing all of his data, and collaborating with patient's care team: 25-minute Charges/Coding Visit Charges Inpatient E&M: 67180 Subs Hosp L1
[2023-08-30 02:33] VITALS: BP 153/75; PULSE 85; RESP 16; TEMP 36.9; O2SAT 92
[2023-08-30] MEDS: Acetaminophen 500 MG Tablet 1000 MG PO ×3 (05:20→19:56)
[2023-08-30 08:00] VITALS: BP 146/82; PULSE 88; RESP 18; TEMP 36.6; O2SAT 94
[2023-08-30] MEDS: Folic Acid 1 MG Tablet PO (08:02)
[2023-08-30] MEDS: Doxycycline 100 MG CAPSULE PO ×2 (08:02→19:55)
[2023-08-30] MEDS: Cholecalciferol (VIT D3) 25 MCG TABLET (1,000 UNITS) PO (08:02)
[2023-08-30] MEDS: Famotidine 20 MG Tablet PO (08:02)
[2023-08-30] MEDS: Aspirin 81 MG TAB.CHEW PO ×2 (08:02→17:14)
[2023-08-30] MEDS: Senna/Docusate Sodium 1 Tablet 2 TABLET PO ×2 (08:02→19:55)
[2023-08-30] MEDS: Ferrous Sulfate 325 MG Tablet PO ×2 (08:02→17:14)
--- NOTE | 2023-08-30 08:27 | PCM.PN.ORT ---
Subjective Subjective Patient is doing well overall. He has been weaned off oxygen. Continues to be stable medically. Patient's is at bedside. She states goals to go home. He still has recommendations for correction from therapy however, has made promising progress over the weekend. There is some thought that with a hospital bed he may be able to return home. He is also worried about his recliner being low and difficulty arise from. No acute events overnight. No chest pain or shortness of breath today. Objective Data Objective Data Vital Signs: Vital Signs Temp Pulse Resp BP Pulse Ox O2 Del Method O2 Flow Rate 98 F 88 18 146/82 H 94 Room Air 3 08/30/23 08:00 08/30/23 08:00 08/30/23 08:00 08/30/23 08:00 08/30/23 08:00 08/30/23 08:00 08/29/23 10:00 Oxygen Flow Rate (L/min) 3 Oxygen Delivery Method Room Air Weight: 352 lb 11.834 oz Body Mass Index (BMI) 41.8 Intake & Output: Intake and Output for Last 24 Hours 08/28/23 08/29/23 08/30/23 23:59 23:59 23:59 Intake Total 660 / 860 920 / 920 Output Total 1000 / 1100 1150 / 1150 450 / 450 Balance -340 / -240 -230 / -230 -450 / -450 Lab / Micro Data 08/28/23 05:17 08/28/23 05:17 Physical Exam Narrative Left lower extremity: Dressing is clean dry and intact except for one quarter sized area of saturation over the distal incision which is dried blood Sensations intact to light touch saphenous, sural, superficial peroneal, deep peroneal, and tibial distributions Motors intact EHL, DF, PF calves are soft and supple Const alert, oriented x3 and no apparent distress Assessment & Plan Assessment/Plan (1) Status post total left knee replacement: PLAN: 1. S/P left total knee arthroplasty POD #5 2. Continue Pain Medications: Tylenol, oxycodone. Patient's last dose of oxycodone was yesterday afternoon. 3. DVT Prophylaxis: Take 81 mg aspirin twice daily for 4 weeks postoperatively for DVT prophylaxis. Patient denies past history of DVT or pulmonary embolism 4. PT/OT: Weightbearing as tolerated with walker. Appreciate recommendations from physical therapy, patient seems to be progressing appropriately considering right lower extremity deficits. There are concerns with patient's ability to recover as he has chronic neurologic deficit on the right lower extremity with foot drop. Current plan is for discharge to correction facility for patient to continue intense rehab however, as he works through [employer] I encouraged the patient to continue working hard with physical therapy as he may eventually need ongoing goals due to delays associated with holiday weekend and bureaucracy of Workmen's Compensation. 5. Continue postoperative medical management per medicine. Appreciate medical care patient's hypoxia significantly improved 6. Currently on doxycycline for 2 weeks postoperatively due to elevated BMI greater than 40.0. I discussed with the patient potential side effects of doxycycline including sensitivity to the sunlight and increased risk of skin burn. Recommend patient take appropriate precautions. Also recommend patient to take probiotic while on the antibiotic. Patient voiced understanding agreement. 7. Hypoxia: Significantly improved, on room air today 8. Dressing: Dressing remains intact and dry. While he is in house we will leave the dressing on for a total of 7 days. Will remove on postop day 7 and leave open to air if patient remains the hospital. 9. Disposition: Case management is currently involved with appropriate discharge planning. Patient's current situation on his left knee is under Worker's Comp. Due to patient's morbid obesity, chronic neurologic deficits on the right, and not enough assistance at home there is concern for discharge home. Patient's was at bedside today and does express a desire to bring the patient home. Patient's pain has improved from yesterday. He was able to do more with therapy and did start working on steps. Therapy currently is recommending correction facility upon discharge. Continue to appreciate recommendations from physical therapy. Due to the holiday weekend we may not be able to determine discharge planning until Wednesday. Patient will continue with above medications. Appreciate recommendations from medicine. Patient's was also inquiring about a hospital bed at home, I did explain that this may also take time to get approved due to Workmen's Compensation approval being required. Ultimately, I spent considerable time today encouraging the patient to develop an appropriate mindset and goals to go home as we do anticipate significant delays in relation to obtaining Workmen's Compensation approval. Patient understands that as we worked through this he may meet criteria to return home. Will continue to look at appropriate avenues and interventions may allow him to return home. I have reviewed the [place] Automated Rx Reporting System (OARRS) report for this patient for refill pattern and other prescriber involvement as part of the appropriate surveillance for the provision of acute and chronic controlled medications. The report was requested and reviewed on the date of this entry and was considered in the prescribing process. This dictation was created using voice recognition software. Phonetic and/or grammatical errors may exist. (2) Chronic venous insufficiency: PLAN: Can affect wound healing and outcome. Will monitor, medical consultation (3) Obesity, morbid: PLAN: Can affect postoperative outcome. Medical consultation placed (4) Hypoxia: PLAN: Discussed with medicine team will begin hypoxia workup today.
[2023-08-30] MEDS: oxyCODONE 5 MG Tablet PO (09:45)
[2023-08-30 11:30] VITALS: O2SAT 93
[2023-08-30 14:26] VITALS: BP 161/85; PULSE 84; RESP 18; TEMP 37.1; O2SAT 95
--- NOTE | 2023-08-30 14:30 | CASEMGMT ---
Social Work Called patient's nurse telehealth case manager, Rafaela, at [facility] (worker's comp), at [phone]. Patient's claim number to reference: [id number]. Date of injury: 06.01.2019. Message left to call this comic book writer back regarding c-9 for SNF. Received message in [facility] from [facility], that SNF is declining this patient as unable to come to a mutually agreed contractual rate for patient's care at the SNF. Chart reviewed and noted provider note that patient is improving, and if continues to do so, may be okay to discharge home, though would need additional DME for home going. Spoke with PT department today to confirm home with HHC versus SNF. Per PT, patient is doing better, though stairs continue to be an issue for patient and factor in returning home. Met with patient in room, introducing to self and SW role. -Educated patient to [facility]'s denial. Explored whether there are any other SNF's on list previously provided, which patient would be willing to consider. Patient denies. -Patient reports belief could go home if able to get a hospital bed which adjusts in height (patient is 6' 6 , 350 pounds), as well as head and foot of bed adjustment. Patient needs a BSC as home is 4 floors. -Patient reports a half size step to enter the home from the garage and to believe that can maneuver this one step. -Patient reports belief could try to ride home in family car. Emotional support and supportive listening offered to patient. Received call from Lena Vickers's Comp liason at [facility], . Alee reports willingness to assist with new C-9 for this patient, but will need the codes for the DME. Alee reports to have a couple of codes, but uncertain if correct for what patient needs. Suggested discussion with DME provider to see if familiar with HCPCS codes. Updated DEREK Méndez CM, to updates on discharge planning: home with HHC and DME needs. Plan: Patient now plans to go home, jorge REED CM working on HHC and DME. SW remains available to assist and collaborate in discharge planning as needed or indicated. -VERONICA Carter
--- NOTE | 2023-08-30 14:38 | CASEMGMT ---
Discharge Planning A list of HH providers including quality and resource use data and consistent with the patient's preferred geographic region, medical needs, and insurance network was created in [facility]Port Guide.? This list was provided to the RN KENYA Sanders, Discharge Planning Asst.
--- NOTE | 2023-08-30 15:01 | PN.HOSP_ITS ---
Reason for Visit Reason for Visit: Diagnoses Morbid (severe) obesity due to excess calories (08/25/23) Venous insufficiency (chronic) (peripheral) (08/25/23) Unilateral primary osteoarthritis, left knee (08/25/23) Hypoxemia (08/25/23) Presence of left artificial knee joint (08/25/23) Objective Data Objective Data Vital Signs: Vital Signs Temp Pulse Resp BP Pulse Ox O2 Del Method O2 Flow Rate 98.7 F 84 18 161/85 H 95 Room Air 3 08/30/23 14:26 08/30/23 14:26 08/30/23 14:26 08/30/23 14:26 08/30/23 14:26 08/30/23 14:26 08/29/23 10:00 Oxygen Flow Rate (L/min) 3 Oxygen Delivery Method Room Air Weight: 352 lb 11.834 oz Body Mass Index (BMI) 41.8 Intake & Output: Intake and Output for Last 24 Hours 08/28/23 08/29/23 08/30/23 23:59 23:59 23:59 Intake Total 660 / 860 920 / 920 Output Total 1000 / 1100 1150 / 1150 450 / 450 Balance -340 / -240 -230 / -230 -450 / -450 Lab / Micro Data 08/28/23 05:17 08/28/23 05:17 Assessment & Plan Assessment/Plan (1) Status post total left knee replacement: PLAN: Plan 1. Type 2 diabetes-patient is currently diet controlled and is not on any medications. Glucose is 125 in BMP. 2 Morbid obesity-complicates care, medical course, recovery, and prognosis 3 osteoarthritis of the left knee-Patient had left knee minimally invasive robotic assisted total knee replacement on 08/25/2023. Continue PT and OT. Patient has difficulty in moving around but was able to walk outside in the hallway and in the rehab room. Plan for rehab discharge. 4 hypoxia-secondary to atelectasis/morbid obesity suspected obstructive sleep apnea: As per the 's, he has restless sleep with snoring. Sometimes he does not breathe for 10 to 15 seconds and then wakes up with loud snoring with inspiration. Then he falls to sleep. Advised follow-up with PCP for outpatient sleep study and CPAP. Patient was educated about that. Continue incentive spirometry. 5. Morbid obesity: BMI 41.8 kg/m?. Weight loss counseling done. Makeup Sales Consultant consult. 6. JOSE RAUL, prerenal: Patient was admitted with creatinine 1.5, went up 1.9 and then came back 1.25. Seems mainly due to fluid shift and medications. JOSE RAUL resolved. Charges/Coding Visit Charges Inpatient E&M: 22351 Subs Hosp L2
--- NOTE | 2023-08-30 15:08 | CASEMGMT ---
Addendum entered by Malcolm Alex 08/30/23 16:58: [facility] states they can accept the pt and that we will need to send them the C9 form once completed. TC to Yoselin (Dr. Natty ZAMBRANO) and updated that the pt is wanting [facility] and [facility] [place]. Original Note: SW states to this RN CM that the pt is wanting to DC home now instead of SNF. RN CM to pt room. Pt states that he wants [facility] PT and OT at home as well as a hospital bed and large BSC. Pt denies wanting to see a list of C agencies and states that he wants [facility]. Pt denies wanting to see a list of local in-network DME companies and that he just wants a BSC and bed that work. Pt states that he is OK with DME through [facility] if possible. TC to Qing from [facility] at this time and Qing states that she will check to see if [facility] can provide this equipment with the pt workers comp. Awaiting return call. [facility] called at this time and they state we will need to send them a C9 form for the pt to potentially get acceptance.
[2023-08-30] MEDS: Bisacodyl 5 MG Tablet 10 MG PO (18:31)
[2023-08-30] MEDS: Polyethylene Glycol 3350 17 GM PACKET PO (19:55)
[2023-08-30 20:08] VITALS: BP 166/72; PULSE 89; RESP 16; TEMP 36.6; O2SAT 95
[2023-08-31 02:13] VITALS: BP 151/81; PULSE 94; RESP 16; TEMP 36.6; O2SAT 95
[2023-08-31] MEDS: Acetaminophen 500 MG Tablet 1000 MG PO ×3 (05:23→20:32)
[2023-08-31 07:26] VITALS: O2SAT 98
[2023-08-31 08:23] VITALS: BP 152/76; PULSE 92; RESP 18; TEMP 36.8; O2SAT 96
[2023-08-31] MEDS: Ferrous Sulfate 325 MG Tablet PO (08:31)
[2023-08-31] MEDS: Aspirin 81 MG TAB.CHEW PO ×2 (08:31→16:51)
[2023-08-31] MEDS: Folic Acid 1 MG Tablet PO (08:32)
[2023-08-31] MEDS: Doxycycline 100 MG CAPSULE PO ×2 (08:32→20:32)
[2023-08-31] MEDS: Cholecalciferol (VIT D3) 25 MCG TABLET (1,000 UNITS) PO (08:32)
[2023-08-31] MEDS: Polyethylene Glycol 3350 17 GM PACKET PO (08:32)
[2023-08-31] MEDS: Senna/Docusate Sodium 1 Tablet 2 TABLET PO (08:32)
[2023-08-31] MEDS: Famotidine 20 MG Tablet PO (08:32)
--- NOTE | 2023-08-31 09:43 | PN.HOSP_ITS ---
Reason for Visit Reason for Visit: Diagnoses Morbid (severe) obesity due to excess calories (08/25/23) Venous insufficiency (chronic) (peripheral) (08/25/23) Unilateral primary osteoarthritis, left knee (08/25/23) Hypoxemia (08/25/23) Presence of left artificial knee joint (08/25/23) Objective Data Objective Data Vital Signs: Vital Signs Temp Pulse Resp BP Pulse Ox O2 Del Method O2 Flow Rate 98.2 F 92 18 152/76 H 96 Room Air 3 08/31/23 08:23 08/31/23 08:23 08/31/23 08:23 08/31/23 08:23 08/31/23 08:23 08/31/23 08:26 08/29/23 10:00 Oxygen Flow Rate (L/min) 3 Oxygen Delivery Method Room Air Weight: 352 lb 11.834 oz Body Mass Index (BMI) 41.8 Intake & Output: Intake and Output for Last 24 Hours 08/29/23 08/30/23 08/31/23 23:59 23:59 23:59 Intake Total 920 / 920 Output Total 1150 / 1150 450 / 450 Balance -230 / -230 -450 / -450 Lab / Micro Data 08/28/23 05:17 08/28/23 05:17 Physical Exam Narrative General: Alert, Oriented x3, Cooperative, morbid obesity BMI 41.8 kg/m? HEENT: Atraumatic, PERRLA, EOMI, Normocephalic Oral: No Gingival or Mucosal Lesions/ Ulcerations Neck: Supple, No JVD, Negative Carotid Bruits Chest wall/Lungs: Air entry diminished in bilateral lung bases. No crepitation/rhonchi Cardiovascular: Regular rate, Regular Rhythm, Normal S1, Normal S2, No M/G/R Abdomen: Bowel Sounds Present, Soft, Non Tender, Non-Distended : No dysuria. No renal angle tenderness. No suprapubic tenderness. Extremities: No edema, Capillary Refill Less than 3 Seconds Skin: Left knee status post TKR, surgical dressing is dry. Musculoskeletal: Left knee tender around operative region. No Tenderness to Palpation of other joints or Extremities Neurological: Cranial nerves II-XII grossly intact, DTR 2+/4. No acute focal neurological deficit. Psych/Mental Status: Normal Affect, Appropriate. Assessment & Plan Assessment/Plan (1) Status post total left knee replacement: PLAN: Plan 1. Type 2 diabetes-patient is currently diet controlled and is not on any medications. Glucose is 125 in BMP. 08/31: Glucose is controlled. 2 Morbid obesity-complicates care, medical course, recovery, and prognosis 3 osteoarthritis of the left knee-Patient had left knee minimally invasive robotic assisted total knee replacement on 08/25/2023. Continue PT and OT. Patient has difficulty in moving around but was able to walk outside in the hallway and in the rehab room. Plan for rehab discharge. 08/31: Patient is moving bowels. Still has significant pain. 4 hypoxia-secondary to atelectasis/morbid obesity suspected obstructive sleep apnea: As per the 's, he has restless sleep with snoring. Sometimes he does not breathe for 10 to 15 seconds and then wakes up with loud snoring with inspiration. Then he falls to sleep. Advised follow-up with PCP for outpatient sleep study and CPAP. Patient was educated about that. Continue incentive spirometry. 5. Morbid obesity: BMI 41.8 kg/m?. Weight loss counseling done. Agricultural Research Technologist consult. 6. JOSE RAUL, prerenal: Patient was admitted with creatinine 1.5, went up 1.9 and then came back 1.25. Seems mainly due to fluid shift and medications. JOSE RAUL r esolved. Charges/Coding Visit Charges Inpatient E&M: 96803 Subs Hosp L2
--- NOTE | 2023-08-31 10:05 | CASEMGMT ---
Addendum entered by Carmen You 08/31/23 13:50: TC to Rafaela at [employer] [facility], she has not received the request for C-9. She states it can take up to 24 hours to be entered into their system from when it was received. She is aware that the request for BSC, Hospital bed and HH is included per Alee at [facility]. Updated her on pt therapy session today. She requests clinicals to be faxed. DC television production assistant to fax. signed rx for DME. He is updated on plan for pt. RN CM into pt room, pt does plan on staying in the lowest level of the home that has one step. Pt has a plan for toileting and bathing at home. He is aware of status of dc plan. Pt is not willing to consider other SNF options at this time. Pt plans to dc home in his 's SUV if he is able, if not will consider using w/c van. Original Note: TC to Alee at 's office, she states she has submitted the C-9 for PT, hospital bed and BSC. Reviewed HCPCS codes with her. She will call [facility] to verify information on the hospital bed to confirm if it needs to be fully electric and bariatric. Provided RN KENYA call back number.
--- NOTE | 2023-08-31 13:21 | PN.ORTHO_ITS ---
Subjective Subjective Patient is doing well today. No acute events overnight. Does have some ecchymosis on his posterior calf otherwise no new complaints. Waiting on Workmen's Comp. to approve. Patient was denied admission to. 2 choices for nursing home. Now we are attempting again discharged home with home health. Will need bedside commode in bed.Not requiring oxygen at this time. Objective Data Objective Data Vital Signs: Vital Signs Temp Pulse Resp BP Pulse Ox O2 Del Method O2 Flow Rate 98.2 F 92 18 152/76 H 96 Room Air 3 08/31/23 08:23 08/31/23 08:23 08/31/23 08:23 08/31/23 08:23 08/31/23 08:23 08/31/23 08:26 08/29/23 10:00 Oxygen Flow Rate (L/min) 3 Oxygen Delivery Method Room Air Weight: 352 lb 11.834 oz Body Mass Index (BMI) 41.8 Intake & Output: Intake and Output for Last 24 Hours 08/29/23 08/30/23 08/31/23 23:59 23:59 23:59 Intake Total 920 / 920 Output Total 1150 / 1150 450 / 450 Balance -230 / -230 -450 / -450 Lab / Micro Data 08/28/23 05:17 08/28/23 05:17 Physical Exam Narrative Left lower extremity: Dressing is clean dry and intact Sensations intact to light touch saphenous, sural, superficial peroneal, deep peroneal, and tibial distributions Motors intact EHL, DF, PF calves are soft and supple Const alert, oriented x3 and no apparent distress Assessment & Plan Assessment/Plan (1) Status post total left knee replacement: PLAN: 1. S/P left total knee arthroplasty POD #6 2. Continue Pain Medications: Tylenol, oxycodone. 3. DVT Prophylaxis: Take 81 mg aspirin twice daily for 4 weeks postoperatively for DVT prophylaxis. Patient denies past history of DVT or pulmonary embolism 4. PT/OT: Weightbearing as tolerated with walker. Appreciate recommendations from physical therapy, patient seems to be progressing appropriately considering right lower extremity deficits. There are concerns with patient's ability to recover as he has chronic neurologic deficit on the right lower extremity with foot drop. Awaiting approval for Workmen's Compensation, current plan is for discharge home with home health care and available entities. 5. Continue postoperative medical management per medicine. Appreciate medical care patient's hypoxia appears to be resolved at this time. Patient encouraged to follow-up with PCP for sleep apnea 6. Currently on doxycycline for 2 weeks postoperatively due to elevated BMI greater than 40.0. I discussed with the patient potential side effects of doxycycline including sensitivity to the sunlight and increased risk of skin burn. Recommend patient take appropriate precautions. Also recommend patient to take probiotic while on the antibiotic. Patient voiced understanding agreement. 7. Hypoxia: Significantly improved, on room air today 8. Dressing: Dressing remains intact and dry. While he is in house we will leave the dressing on for a total of 7 days. Will remove on postop day 7 and leave open to air if patient remains the hospital. 9. Disposition: Case management is currently involved with appropriate discharge planning. Patient's current situation on his left knee is under Worker's Comp. currently working through Workmen's Compensation to get home health care approved. Will continue to look at appropriate avenues and interventions may allow him to return home. I have reviewed the [place] Automated Rx Reporting System (OARRS) report for this patient for refill pattern and other prescriber involvement as part of the appropriate surveillance for the provision of acute and chronic controlled medications. The report was requested and reviewed on the date of this entry and was considered in the prescribing process. This dictation was created using voice recognition software. Phonetic and/or grammatical errors may exist. (2) Chronic venous insufficiency: PLAN: Can affect wound healing and outcome. Will monitor, medical consultation (3) Obesity, morbid: PLAN: Can affect postoperative outcome. Medical consultation placed (4) Hypoxia: PLAN: Discussed with medicine team will begin hypoxia workup today.
[2023-08-31 14:00] VITALS: BP 165/82; PULSE 98; RESP 18; TEMP 36.6; O2SAT 96
--- NOTE | 2023-08-31 16:01 | CASEMGMT ---
Discharge Planning Requested updates faxed to Rafaela [employer] comp. Maribell Sanders, Discharge Planning Asst.
[2023-08-31 20:00] VITALS: BP 159/80; PULSE 93; RESP 15; TEMP 37.1; O2SAT 95
[2023-09-01 01:28] VITALS: BP 130/75; PULSE 94; RESP 15; TEMP 36.6; O2SAT 95
[2023-09-01] MEDS: Acetaminophen 500 MG Tablet 1000 MG PO ×3 (05:33→21:55)
[2023-09-01] MEDS: oxyCODONE 5 MG Tablet PO ×2 (05:35→14:09)
[2023-09-01 08:11] LABS: Absolute Lymphocyte Count 0.51 X10^3/uL (0.83-4.51); Absolute Neutrophil Count 2.1 X10^3/uL (2.0-7.7); Basophil# 0.01 X10^3/uL; Basophil% 0.3 % (0-1); Eosinophil# 0.18 X10^3/uL; Eosinophils% 5.7 % (0-5); Hematocrit 29.1 % (40-54); Hemoglobin 9.1 g/dL (13.0-16.5); Lymphocyte # 0.51 X10^3/ul (0.83-4.51); Lymphocyte % 16.2 % (19-41); Mean Corp Hgb Conc 31.3 g/dL (32-36); Mean Corpuscular Hgb 32.6 pg (27.0-32.0); Mean Corpuscular Volume 104.3 fL (80-94); Mean Platelet Vol. 10.5 fl (6.2-12.0); Monocyte# 0.32 X10^3/uL; Monocyte% 10.2 % (0-10); NRBC Flagged by Analyzer 0 % (0-5); Neutrophil # 2.12 X10^3/uL (2.7-7.7); Neutrophil % 67.3 % (47-70); POSITIVE DIFFERENTIAL YES; Platelet Count 104 K/mm3 (150-450); RBC Distribution Width CV 14.7 % (11.6-14.6); RBC Distribution Width SD 56.5 fl (35.1-43.9); Red Blood Count 2.79 M/mm3 (4.6-6.2); White Blood Count 3.2 K/mm3 (4.4-11.0)
[2023-09-01 08:17] VITALS: O2SAT 96
[2023-09-01 09:00] VITALS: BP 133/76; PULSE 95; RESP 18; TEMP 36.8; O2SAT 96
[2023-09-01 09:02] LABS: Anion Gap 2 (5-15); BUN 32 mg/dL (7-18); BUN/Creat Ratio 28.6 RATIO (10-20); Calcium,Total 8.6 mg/dL (8.5-10.1); Chloride 114 mmol/L (98-107); Creatinine, Serum 1.12 mg/dL (0.70-1.30); EST Glomerular Filtration Rate 70 mL/min (>60); Est Glom Filt Rate - Afr Amer 85 mL/min (>60); Glucose 157 mg/dL (74-106); Potassium 4.3 mmol/L (3.5-5.1); Sodium Level 144 mmol/L (136-145)
[2023-09-01 10:00] VITALS: RESP 18
[2023-09-01] MEDS: Polyethylene Glycol 3350 17 GM PACKET PO (10:20)
[2023-09-01] MEDS: Senna/Docusate Sodium 1 Tablet 2 TABLET PO (10:20)
[2023-09-01] MEDS: Famotidine 20 MG Tablet PO (10:20)
[2023-09-01] MEDS: Doxycycline 100 MG CAPSULE PO ×2 (10:20→21:55)
[2023-09-01] MEDS: Folic Acid 1 MG Tablet PO (10:21)
[2023-09-01] MEDS: Ferrous Sulfate 325 MG Tablet PO (10:21)
[2023-09-01] MEDS: Cholecalciferol (VIT D3) 25 MCG TABLET (1,000 UNITS) PO (10:21)
[2023-09-01] MEDS: Aspirin 81 MG TAB.CHEW PO ×2 (10:21→17:48)
--- NOTE | 2023-09-01 10:50 | PN.ORTHO_ITS ---
Subjective Subjective Patient lying in bed with his in the room with him. Patient states his knee has been painful. But he denies chest pain, shortness of breath, calf pain, nausea vomiting. Patient states he has been up ambulating with use of a walker. Patient is ready for discharge home awaiting on approval for hospital bed and delivery of the bed. Patient has no other complaints at this time. Objective Data Objective Data Vital Signs: Vital Signs Temp Pulse Resp BP Pulse Ox O2 Del Method O2 Flow Rate 97.9 F 94 15 130/75 H 96 Room Air 3 09/01/23 01:28 09/01/23 01:28 09/01/23 01:28 09/01/23 01:28 09/01/23 08:17 09/01/23 08:17 08/29/23 10:00 Oxygen Flow Rate (L/min) 3 Oxygen Delivery Method Room Air Weight: 160 kg Body Mass Index (BMI) 41.8 Intake & Output: Intake and Output for Last 24 Hours 08/30/23 08/31/23 09/01/23 23:59 23:59 23:59 Output Total 450 / 450 400 / 400 200 / 200 Balance -450 / -450 -400 / -400 -200 / -200 Lab / Micro Data 09/01/23 07:18 09/01/23 07:18 Labs: Laboratory Results - last 24 hr 09/01/23 07:18: WBC 3.2 L, RBC 2.79 L, Hgb 9.1 L, Hct 29.1 L, MCV 104.3 H, MCH 32.6 H, MCHC 31.3 L, RDW Std Deviation 56.5 H, RDW Coeff of Tan 14.7 H, Plt Count 104 L, MPV 10.5, Immature Gran % (Auto) 0.300, Neut % (Auto) 67.3, Lymph % (Auto) 16.2 L, [place] % (Auto) 10.2 H, Eos % (Auto) 5.7 H, Baso % (Auto) 0.3, Absolute Neuts (auto) 2.1, Absolute Lymphs (auto) 0.51 L, Nucleated RBC % 0, Sodium 144, Potassium 4.3, Chloride 114 H, Carbon Dioxide 28.0, Anion Gap 2 L, BUN 32 H, Creatinine 1.12, Estim Creat Clear Calc 110.70, Est GFR (MDRD) Af Amer 85, Est GFR (MDRD) Non-Af 70, BUN/Creatinine Ratio 28.6 H, Glucose 157 H, Calcium 8.6 Physical Exam Narrative Exam, I have found the patient lying comfortably in bed awake alert in no respiratory distress speaking in full sentences. Patient's at his side. Cranial nerves II through XII gross intact. Patient excellent range of motion the upper extremities good muscle tone and strength. The knee was cool to touch the dressing was clean dry intact. Patient had no calf tenderness. He did have pain with full extension and flexion to approximately 50 degrees. Patient had good plantarflexion dorsiflexion of the foot and ankle. Neurovascular is otherwise intact. Const alert, oriented x3 and no apparent distress General Appearance: cooperative HEENT normocephalic Eyes PERRL Resp normal respiratory effort Effort and Inspection: able to speak in complete sentences Extremity normal capillary refill Skin no rashes or lesions noted Neuro CN's II-XII intact bilaterally Psych mental status grossly normal Assessment & Plan Assessment/Plan (1) Status post total left knee replacement: PLAN: 1. Continue all pain medications as prescribed 2. Continue aspirin 81 mg 1 p.o. every 12 hours x 30 days for postop DVT prophylaxis 3. Encourage incentive spirometry 4. Continue physical therapy weight-bear as tolerated with use of walker 5. Continue ice to left knee 6. Change dressing the day of discharge home. 7. Patient will require a hospital bed at home due to needing frequent change of position to alleviate pain. 8. Discharge home when necessary medical equipment has been provided at his home.
--- NOTE | 2023-09-01 11:01 | CASEMGMT ---
Addendum entered by Maryellen Goyal 09/01/23 15:53: Spoke with pt who reports he spoke with [facility] and they can deliver the bed on Wednesday between 10AM and 4PM. Message sent to confirm. Will need documentation of need for BSC. Maryellen GROVE, RN, CCM Addendum entered by Maryellen Goyal 09/01/23 15:06: Message received from [facility] that soonest DME can be provided is WednesdaySep 06. Call placed to [facility] and they are unable to provide DME any sooner. Message sent to [facility] to see when DME can be provided. Maryellen GROVE, RN, CCM Original Note: DEREK ZAMBRANO received approved C9 from [facility]. C9 sent to [facility] Spoke with [facility] and SOC will be Wednesday. Rx for BSC and hospital bed completed and sent to [facility]. Awaiting response on delivery of equipment. Maryellen GROVE, RN, CCM
--- NOTE | 2023-09-01 13:45 | PN.HOSP_ITS ---
Reason for Visit Reason for Visit: Diagnoses Morbid (severe) obesity due to excess calories (08/25/23) Venous insufficiency (chronic) (peripheral) (08/25/23) Unilateral primary osteoarthritis, left knee (08/25/23) Hypoxemia (08/25/23) Presence of left artificial knee joint (08/25/23) Objective Data Objective Data Vital Signs: Vital Signs Temp Pulse Resp BP Pulse Ox O2 Del Method O2 Flow Rate 98.3 F 95 18 133/76 H 96 Room Air 3 09/01/23 09:00 09/01/23 09:00 09/01/23 10:00 09/01/23 09:00 09/01/23 09:00 09/01/23 10:00 08/29/23 10:00 Oxygen Flow Rate (L/min) 3 Oxygen Delivery Method Room Air Weight: 352 lb 11.834 oz Body Mass Index (BMI) 41.8 Intake & Output: Intake and Output for Last 24 Hours 08/30/23 08/31/23 09/01/23 23:59 23:59 23:59 Output Total 450 / 450 400 / 400 200 / 200 Balance -450 / -450 -400 / -400 -200 / -200 Lab / Micro Data 09/01/23 07:18 09/01/23 07:18 Labs: Laboratory Results - last 24 hr 09/01/23 07:18: WBC 3.2 L, RBC 2.79 L, Hgb 9.1 L, Hct 29.1 L, MCV 104.3 H, MCH 32.6 H, MCHC 31.3 L, RDW Std Deviation 56.5 H, RDW Coeff of Tan 14.7 H, Plt Count 104 L, MPV 10.5, Immature Gran % (Auto) 0.300, Neut % (Auto) 67.3, Lymph % (Auto) 16.2 L, Guadalupe % (Auto) 10.2 H, Eos % (Auto) 5.7 H, Baso % (Auto) 0.3, Absolute Neuts (auto) 2.1, Absolute Lymphs (auto) 0.51 L, Nucleated RBC % 0, Sodium 144, Potassium 4.3, Chloride 114 H, Carbon Dioxide 28.0, Anion Gap 2 L, BUN 32 H, Creatinine 1.12, Estim Creat Clear Calc 110.70, Est GFR (MDRD) Af Amer 85, Est GFR (MDRD) Non-Af 70, BUN/Creatinine Ratio 28.6 H, Glucose 157 H, Calcium 8.6 Physical Exam Narrative Seen and examined Patient had bowel movement. Still has pain and difficulty in a standing up or moving. He was scared of about the bruise around the operated knee. No active bleeding. General: Alert, Oriented x3, Cooperative, morbid obesity BMI 41.8 kg/m? HEENT: Atraumatic, PERRLA, EOMI, Normocephalic Oral: No Gingival or Mucosal Lesions/ Ulcerations Neck: Supple, No JVD, Negative Carotid Bruits Chest wall/Lungs: Air entry diminished in bilateral lung bases. No crepitation/rhonchi Cardiovascular: Regular rate, Regular Rhythm, Normal S1, Normal S2, No M/G/R Abdomen: Bowel Sounds Present, Soft, Non Tender, Non-Distended : No dysuria. No renal angle tenderness. No suprapubic tenderness. Extremities: No edema, Capillary Refill Less than 3 Seconds Skin: Left knee status post TKR, surgical dressing is dry. Musculoskeletal: Left knee tender around operative region. No Tenderness to Palpation of other joints or Extremities Neurological: Cranial nerves II-XII grossly intact, DTR 2+/4. No acute focal neurological deficit. Psych/Mental Status: Normal Affect, Appropriate. Assessment & Plan Assessment/Plan (1) Status post total left knee replacement: PLAN: Plan 1. Type 2 diabetes-patient is currently diet controlled and is not on any medications. Glucose is 125 in BMP. 08/31: Glucose is controlled. 08/23/2020: Glucose in Accu-Chek 164. In BMP 157. In acceptable range. 2 Morbid obesity-complicates care, medical course, recovery, and prognosis 3 osteoarthritis of the left knee-Patient had left knee minimally invasive robotic assisted total knee replacement on 08/25/2023. Continue PT and OT. Patient has difficulty in moving around but was able to walk outside in the hallway and in the rehab room. Plan for rehab discharge. 08/31: Patient is moving bowels. Still has significant pain. 09/01: Patient has mild bruising around knee but that is expected. Patient was evaluated by Dr. Luz. Plan for discharge to rehab, casework supervisor working on it. 4 hypoxia-secondary to atelectasis/morbid obesity suspected obstructive sleep apnea: As per the 's, he has restless sleep with snoring. Sometimes he does not breathe for 10 to 15 seconds and then wakes up with loud snoring with inspiration. Then he falls to sleep. Advised follow-up with PCP for outpatient sleep study and CPAP. Patient was educated about that. Continue incentive spirometry. 5. Morbid obesity: BMI 41.8 kg/m?. Weight loss counseling done. Memorial Designer consult. 6. JOSE RAUL, prerenal: Patient was admitted with creatinine 1.5, went up 1.9 and then came back 1.25. Seems mainly due to fluid shift and medications. JOSE RAUL resolved 09/01: Creatinine 1.12. Improvement in creatinine. Charges/Coding Visit Charges Inpatient E&M: 02435 Subs Hosp L2
[2023-09-01 16:00] VITALS: BP 138/73; PULSE 92; RESP 18; TEMP 36.7; O2SAT 96
[2023-09-01 21:57] VITALS: BP 148/82; PULSE 90; RESP 16; TEMP 36.8; O2SAT 94
[2023-09-02 05:13] VITALS: BP 157/82; PULSE 91; RESP 18; TEMP 36.6; O2SAT 94
[2023-09-02] MEDS: Acetaminophen 500 MG Tablet 1000 MG PO ×3 (05:15→20:15)
[2023-09-02] MEDS: Aspirin 81 MG TAB.CHEW PO ×2 (08:50→16:11)
[2023-09-02] MEDS: Cholecalciferol (VIT D3) 25 MCG TABLET (1,000 UNITS) PO (08:51)
[2023-09-02] MEDS: Famotidine 20 MG Tablet PO (08:51)
[2023-09-02] MEDS: Folic Acid 1 MG Tablet PO (08:51)
[2023-09-02] MEDS: Doxycycline 100 MG CAPSULE PO ×2 (08:51→20:15)
[2023-09-02] MEDS: oxyCODONE 5 MG Tablet PO ×2 (08:55→20:16)
[2023-09-02 09:00] VITALS: BP 155/81; PULSE 89; RESP 18; TEMP 36.8; O2SAT 97
--- NOTE | 2023-09-02 10:14 | CASEMGMT ---
Addendum entered by Maryellen Goyal 09/02/23 11:01: Spoke with [facility]. Confirmed all needed information was obtained from the C9. New SOC will be WednesdaySep 04. Maryellen GROVE, RN, CCM Original Note: DEREK CM placed call to [facility] regarding receipt of C9 and to notify them that delivery of equipment has been determined and pt will DC Wednesday afternoon. Pts SOC was scheduled for Wednesday. Awaiting return call. Maryellen GROVE, RN, CCM
--- NOTE | 2023-09-02 10:25 | PN.HOSP_ITS ---
Reason for Visit Reason for Visit: Diagnoses Morbid (severe) obesity due to excess calories (08/25/23) Venous insufficiency (chronic) (peripheral) (08/25/23) Unilateral primary osteoarthritis, left knee (08/25/23) Hypoxemia (08/25/23) Presence of left artificial knee joint (08/25/23) Objective Data Objective Data Vital Signs: Vital Signs Temp Pulse Resp BP Pulse Ox O2 Del Method O2 Flow Rate 98.2 F 89 18 155/81 H 97 Room Air 3 09/02/23 09:00 09/02/23 09:00 09/02/23 09:00 09/02/23 09:00 09/02/23 09:00 09/02/23 09:00 08/29/23 10:00 Oxygen Flow Rate (L/min) 3 Oxygen Delivery Method Room Air Weight: 352 lb 11.834 oz Body Mass Index (BMI) 41.8 Intake & Output: Intake and Output for Last 24 Hours 08/31/23 09/01/23 09/02/23 23:59 23:59 23:59 Intake Total 1950 / 2650 1100 / 1100 Output Total 400 / 400 1430 / 1430 Balance -400 / -400 520 / 1220 1100 / 1100 Lab / Micro Data 09/01/23 07:18 09/01/23 07:18 Physical Exam Narrative Seen and examined Patient in the bathroom. He states he is going to have bowel movement. No acute change. Patient has pain and difficulty in a standing up or moving but is doing better. Mild bruise around the operated knee. No active bleeding. General: Alert, Oriented x3, Cooperative, morbid obesity BMI 41.8 kg/m? HEENT: Atraumatic, PERRLA, EOMI, Normocephalic Oral: No Gingival or Mucosal Lesions/ Ulcerations Neck: Supple, No JVD, Negative Carotid Bruits Chest wall/Lungs: Air entry diminished in bilateral lung bases. No crepitation/rhonchi Cardiovascular: Regular rate, Regular Rhythm, Normal S1, Normal S2, No M/G/R Abdomen: Bowel Sounds Present, Soft, Non Tender, Non-Distended : No dysuria. No renal angle tenderness. No suprapubic tenderness. Extremities: No edema, Capillary Refill Less than 3 Seconds Skin: Left knee status post TKR, surgical dressing is dry. Musculoskeletal: Left knee tender around operative region. No Tenderness to Palpation of other joints or Extremities Neurological: Cranial nerves II-XII grossly intact, DTR 2+/4. No acute focal neurological deficit. Psych/Mental Status: Normal Affect, Appropriate. Assessment & Plan Assessment/Plan (1) Status post total left knee replacement: PLAN: Plan 1. Type 2 diabetes-patient is currently diet controlled and is not on any medications. Glucose is 125 in BMP. 08/31: Glucose is controlled. 09/01: Glucose in Accu-Chek 164. In BMP 157. In acceptable range. 09/02: Glucose is reasonably controlled 164 in BMP. 2 Morbid obesity-complicates care, medical course, recovery, and prognosis 3 osteoarthritis of the left knee-Patient had left knee minimally invasive robotic assisted total knee replacement on 08/25/2023. Continue PT and OT. Patient has difficulty in moving around but was able to walk outside in the hallway and in the rehab room. Plan for rehab discharge. 08/31: Patient is moving bowels. Still has significant pain. 09/01: Patient has mild bruising around knee but that is expected. Patient was evaluated by Dr. Luz. Plan for discharge to rehab, case making machine operator working on it. 09/02: mobility managersenior asset manager worker working on his discharge plan. Possible discharge tomorrow with hospital bed and DME equipments set up at home. 4 hypoxia-secondary to atelectasis/morbid obesity suspected obstructive sleep apnea: As per the 's, he has restless sleep with snoring. Sometimes he does not breathe for 10 to 15 seconds and then wakes up with loud snoring with inspiration. Then he falls to sleep. Advised follow-up with PCP for outpatient sleep study and CPAP. Patient was educated about that. Continue incentive spirometry. 5. Morbid obesity: BMI 41.8 kg/m?. Weight loss counseling done. Travel Administrator consult. 6. JOSE RAUL, prerenal: Patient was admitted with creatinine 1.5, went up 1.9 and then came back 1.25. Seems mainly due to fluid shift and medications. JOSE RAUL re solved 09/01: Creatinine 1.12. Improvement in creatinine. Charges/Coding Visit Charges Inpatient E&M: 94280 Subs Hosp L2
--- NOTE | 2023-09-02 11:38 | DCINST_ITS ---
Discharge Instructions Diet Discharge Diet: No restrictions Activity Discharge Activity: May Not Drive May shower in (days): 1 Ice area for (Minutes): 20 (every hour while awake.) Weight Bearing Status: Weight bearing as tolerated Keep extremity elevated above heart level: Operative Extremity Additional Activity Instructions:: Wear elastic stockings for 2 weeks after your surgery. Dressing / Incision Call your doctor if your incision/area has: Continuous Slow Oozing, Sudden Increased Bleeding, Increased Pain/ Swelling, Increased Redness and Foul Smelling Discharge Call your doctor if you observe: Fever of 101 or Higher, Coldness, Increased Pain, Numbness or Tingling, Change in Color, Calf discomfort and Uncontrolled pain Change Dressing in: 1 day (and daily as needed.) Cleanse incision/area with: Soap & Water (Pat to wash and dry, do not scrub vigorously.) Additional Dressing/Incision Instructions:: If incision is clean dry and intact may leave the wound open to air and continue showering. If there is continued drainage continue daily dry dressing changes and keep incision clean dry and intact until there is no drainage. Follow Up Care Please Follow Up With: Uriel Canela PA-C When: September 09, 2023 at 3:30 PM Test Results: Test results from this visit will be discussed in further detail at your follow- up appointment, if applicable. Discharge Plan Admission Admit Date/Time: 08/25/23 08:38 Primary Reason for Your Visit: Left knee OA/TKA surgery Attending Provider: Daryl Luz Primary Care Provider: Angelic Monsalve Consulting Providers: Sera Byrd; En Banks Discharge Orders/Prescriptions Prescriptions: New acetaminophen 500 mg Tablet 1,000 mg PO Q8 Qty: 0 0RF calcium carbonate 200 mg calcium (500 mg) Tablet,Chewable 1,000 mg PO Q6H PRN PRN (Reason: DYSPEPSIA) Qty: 0 0RF aspirin 81 mg Tablet,Chewable 81 mg PO BIDCM Qty: 0 0RF famotidine 20 mg Tablet 20 mg PO DAILY 30 Days Qty: 30 0RF doxycycline monohydrate 100 mg Capsule 100 mg PO BID 7 Days Qty: 14 0RF oxycodone 5 mg Tablet 5 - 10 mg PO Q4H PRN PRN (Reason: Pain Score 4-10) 5 Days Qty: 42 0RF polyethylene glycol 3350 17 gram Powder In Packet 17 g PO BID Qty: 0 0RF sennosides-docusate sodium [Stool Softener-Stimulant Laxat] 8.6-50 mg Tablet 2 tab PO BID 7 Days Qty: 28 0RF Continued ferrous sulfate [Feosol] 325 mg (65 mg iron) tablet 650 mg PO DAILY folic acid 1 mg tablet 1 mg PO DAILY cholecalciferol (vitamin D3) [Vitamin D3] 25 mcg (1,000 unit) capsule 25 mcg PO DAILY Referrals / Follow Up: Angelic Monsalve MD [Primary Care Provider] - Disposition Disposition (needs filled in before D/C Order can be placed): Home Health Service
--- NOTE | 2023-09-02 13:11 | PCM.PN.ORT ---
Objective Data Objective Data Vital Signs: Vital Signs Temp Pulse Resp BP Pulse Ox O2 Del Method O2 Flow Rate 98.2 F 89 18 155/81 H 97 Room Air 3 09/02/23 09:00 09/02/23 09:00 09/02/23 09:00 09/02/23 09:00 09/02/23 09:00 09/02/23 10:00 08/29/23 10:00 Oxygen Flow Rate (L/min) 3 Oxygen Delivery Method Room Air Weight: 352 lb 11.834 oz Body Mass Index (BMI) 41.8 Intake & Output: Intake and Output for Last 24 Hours 08/31/23 09/01/23 09/02/23 23:59 23:59 23:59 Intake Total 1950 / 2650 1950 / 1950 Output Total 400 / 400 1430 / 1430 Balance -400 / -400 520 / 1220 1950 / 1950 Lab / Micro Data 09/01/23 07:18 09/01/23 07:18 Assessment & Plan Assessment/Plan (1) Status post total left knee replacement: PLAN: 1. S/P left total knee arthroplasty POD #8 2. Continue Pain Medications: Tylenol, oxycodone. 3. DVT Prophylaxis: Take 81 mg aspirin twice daily for 4 weeks postoperatively for DVT prophylaxis. Patient denies past history of DVT or pulmonary embolism 4. PT/OT: Weightbearing as tolerated with walker. Appreciate recommendations from physical therapy, patient seems to be progressing appropriately considering right lower extremity deficits. There are concerns with patient's ability to recover as he has chronic neurologic deficit on the right lower extremity with foot drop. We have now obtained Worker's Compensation approval and C9 for home health care with [facility] home health services. Patient is awaiting delivery of his hospital bed and bedside commode. Once this is completed patient be planned for discharge. Delivery is supposed to occur tomorrow. Currently, patient is unable to access the bathroom safely requires 3 in 1 commode at home in order to be safely discharged home and allow for appropriate hygiene. 5. Continue postoperative medical management per medicine. Appreciate medical care patient's hypoxia appears to be resolved at this time. Patient encouraged to follow-up with PCP for sleep apnea 6. Currently on doxycycline for 2 weeks postoperatively due to elevated BMI greater than 40.0. I discussed with the patient potential side effects of doxycycline including sensitivity to the sunlight and increased risk of skin burn. Recommend patient take appropriate precautions. Also recommend patient to take probiotic while on the antibiotic. Patient voiced understanding agreement. 7. Hypoxia: Significantly improved, on room air today 8. Dressing: Dressing removed today. Incision is clean dry and intact while he is in house keep incision covered with dry dressing. Okay to shower, do not scrub incision may pat dry. 9. Disposition: C9 currently approved for [facility] home health services. Patient also has been bedside commode and hospital bed be delivered to his home which will not occur till tomorrow. Once the delivery is complete plan is for patient to be discharged tomorrow. I have reviewed the [place] Automated Rx Reporting System (OARRS) report for this patient for refill pattern and other prescriber involvement as part of the appropriate surveillance for the provision of acute and chronic controlled medications. The report was requested and reviewed on the date of this entry and was considered in the prescribing process. This dictation was created using voice recognition software. Phonetic and/or grammatical errors may exist. (2) Chronic venous insufficiency: PLAN: Can affect wound healing and outcome. Will monitor, medical consultation (3) Obesity, morbid: PLAN: Can affect postoperative outcome. Medical consultation placed (4) Hypoxia: PLAN: Discussed with medicine team will begin hypoxia workup today.
--- NOTE | 2023-09-02 13:24 | PHA.DC_ITS ---
Pharmacy [facility] has performed discharge medication reconciliation and counseling for this patient. The patient's discharge medication list was reviewed for discrepancies and discrepancies were resolved. The patient was counseled on the following discharge medications and changes in medications for homegoing were reviewed. The Reason for Use, instructions for use, and potential side effects were reviewed for all new medications. The patient's questions regarding all of their medications were answered. 1. Acetaminophen 1000 mg PO Q8H 2. Aspirin 81 mg PO BID 3. Calcium carbonate 500 mg PO Q6H PRN dyspepsia 4. Doxycycline 100 mg PO BID x 7 days 5. Famotidine 20 mg PO daily 6. Oxycodone 5-10 mg PO Q4H PRN pain 7. Polyethylene glycol 17 grams PO BID 8. Senna/docusate 2 tabs PO BID The patient was able to verbally demonstrate an understanding of their discharge medications. The patient was counselled on new medications by pharmacy services representative Armando. Medications at Discharge Home Medications ferrous sulfate 325 mg (65 mg iron) tablet (Feosol) 650 mg PO DAILY ANEMIA 06/16/23 cholecalciferol (vitamin D3) 25 mcg (1,000 unit) capsule (Vitamin D3) 25 mcg PO DAILY SUPPLEMENT 08/18/23 folic acid 1 mg tablet 1 mg PO DAILY SUPPLEMENT 08/18/23 acetaminophen 500 mg tablet 1,000 mg (2 x 500 mg) PO Q8 #0 tabs 09/02/23 aspirin 81 mg chewable tablet 81 mg PO BIDCM #0 tabs 09/02/23 calcium carbonate 200 mg calcium (500 mg) chewable tablet 1,000 mg (5 x 200 mg calcium (500 mg)) PO Q6H PRN PRN DYSPEPSIA #0 tabs 09/02/23 doxycycline monohydrate 100 mg capsule 100 mg PO BID 7 days #14 caps 09/02/23 famotidine 20 mg tablet 20 mg PO DAILY 30 days #30 tabs 09/02/23 oxycodone 5 mg tablet 5 - 10 mg (1 - 2 x 5 mg) PO Q4H PRN PRN Pain Score 4-10 5 days #42 tabs 09/02/23 polyethylene glycol 3350 17 gram oral powder packet 17 g PO BID #0 ea 09/02/23 sennosides 8.6 mg-docusate sodium 50 mg tablet (Stool Softener-Stimulant Laxative) 2 tab PO BID 7 days #28 tabs 09/02/23
--- NOTE | 2023-09-02 13:26 | PCM.DC.SUM ---
Providers Date of Admission: 08/25/23 Primary Care Physician: Dr. Angelic Monsalve MD Consultations 08/25/23 07:22 Consult: Hospitalist Routine Consulting Provider: Sera Byrd Reason for Consult: post op med management EMERGENT Consult: No MD Notified: Yes Date Notified: 08/25/23 Time Notified: 15:52 Method of Notification: Text Reason For Visit: ROBOTIC ASSISTED LEFT TOTAL KNEE AR Diagnosis Discharge Diagnosis (1) Status post total left knee replacement: Status: Acute Code(s): Z96.652 - Presence of left artificial knee joint Plan: 1. S/P left total knee arthroplasty POD #9 2. Continue Pain Medications: Tylenol, oxycodone. 3. DVT Prophylaxis: Take 81 mg aspirin twice daily for 4 weeks postoperatively for DVT prophylaxis. Patient denies past history of DVT or pulmonary embolism. Aspirin as DVT prophylaxis was discussed with patient on discharge planning today. 4. PT/OT: Weightbearing as tolerated with walker. Plan for discharge home with home health physical therapy and bedside commode. 5. Postop medical management appreciated. Patient currently stable and ready for discharge medically 6. Currently on doxycycline for 2 weeks postoperatively due to elevated BMI greater than 40.0. I discussed with the patient potential side effects of doxycycline including sensitivity to the sunlight and increased risk of skin burn. Recommend patient take appropriate precautions. Also recommend patient to take probiotic while on the antibiotic. Patient voiced understanding agreement. 7. Hypoxia: Resolved. Patient instructed to follow-up with PCP for sleep apnea concerns 8. Dressing: Patient instructed on allowing the incision to remain clean and dry. He is able to shower. He can cover with ABDs and compressive wrap dressing or KAT hose in order to prevent staple irritation. 9. Disposition: C9 currently approved for [facility] home health services. Patient also has been bedside commode and hospital bed be delivered to his home today. Once the delivery is complete plan is for patient to be discharged to home with home health care. Medications were all called in yesterday patient reports to be delivered to bedside today. I have reviewed the [place] Automated Rx Reporting System (OARRS) report for this patient for refill pattern and other prescriber involvement as part of the appropriate surveillance for the provision of acute and chronic controlled medications. The report was requested and reviewed on the date of this entry and was considered in the prescribing process. This dictation was created using voice recognition software. Phonetic and/or grammatical errors may exist. (2) Chronic venous insufficiency: Status: Chronic Plan: Can affect wound healing and outcome. Will monitor, medical consultation (3) Obesity, morbid: Status: Chronic Code(s): E66.01 - Morbid (severe) obesity due to excess calories Plan: Can affect postoperative outcome. Medical consultation placed (4) Hypoxia: Status: Acute Code(s): R09.02 - Hypoxemia Plan: Discussed with medicine team will begin hypoxia workup today. Medications at Discharge Home Medications ferrous sulfate 325 mg (65 mg iron) tablet (Feosol) 650 mg PO DAILY ANEMIA 06/16/23 cholecalciferol (vitamin D3) 25 mcg (1,000 unit) capsule (Vitamin D3) 25 mcg PO DAILY SUPPLEMENT 08/18/23 folic acid 1 mg tablet 1 mg PO DAILY SUPPLEMENT 08/18/23 acetaminophen 500 mg tablet 1,000 mg (2 x 500 mg) PO Q8 #0 tabs 09/02/23 aspirin 81 mg chewable tablet 81 mg PO BIDCM #0 tabs 09/02/23 calcium carbonate 200 mg calcium (500 mg) chewable tablet 1,000 mg (5 x 200 mg calcium (500 mg)) PO Q6H PRN PRN DYSPEPSIA #0 tabs 09/02/23 doxycycline monohydrate 100 mg capsule 100 mg PO BID 7 days #14 caps 09/02/23 famotidine 20 mg tablet 20 mg PO DAILY 30 days #30 tabs 09/02/23 oxycodone 5 mg tablet 5 - 10 mg (1 - 2 x 5 mg) PO Q4H PRN PRN Pain Score 4-10 5 days #42 tabs 09/02/23 polyethylene glycol 3350 17 gram oral powder packet 17 g PO BID #0 ea 09/02/23 sennosides 8.6 mg-docusate sodium 50 mg tablet (Stool Softener-Stimulant Laxative) 2 tab PO BID 7 days #28 tabs 09/02/23 Hospital Course Operations total knee replacement Summary of Care Provided Hospital Course: 62-year-old male with chronic right lower extremity neurologic and physical deficiencies presented with left knee osteoarthritis. He was admitted to the hospital after having left total knee replacement due to failed conservative measures for his left knee osteoarthritis and pain. Postoperatively patient did initially have hypoxia which was corrected with time. After about 72 hours any longer required oxygen. He continue to participate in physical therapy. Patient is under the auspices of your Workmen's Comp. While we are waiting for appropriate C9 of [place] of Workmen's Comp. patient did qualify for home health care. We took considerable amount of time to obtain appropriate approval and Workmen's Compensation however, after approving appropriate home health care devices and home health services patient was ready for discharge on postoperative day 9. Physical Exam Narrative Left lower extremity: Incision clean dry and intact. Motor is intact dorsiflexion, EHL and plantar flexion. Sensation is intact to light touch saphenous, kyle,l superficial peroneal, deep peroneal and tibial distributions. Calves are soft and supple. Const alert, oriented x3 and no apparent distress Weight / BMI Weight Weight: 352 lb 11.834 oz Body Mass Index (BMI) 41.8 ABG / Lab / Microbiology Data 09/01/23 07:18 09/01/23 07:18 D/C Instructions Discharge Diet: No restrictions May shower in (days): 1 Ice area for (Minutes): 20 (every hour while awake.) Weight Bearing Status: Weight bearing as tolerated Keep extremity elevated above heart level: Operative Extremity Additional Activity Instructions: Wear elastic stockings for 2 weeks after your surgery. Call your doctor if your incision/area has: Continuous Slow Oozing, Sudden Increased Bleeding, Increased Pain/ Swelling, Increased Redness and Foul Smelling Discharge Call your doctor if you observe: Fever of 101 or Higher, Coldness, Increased Pain, Numbness or Tingling, Change in Color, Calf discomfort and Uncontrolled pain Please Follow Up With: Uriel Canela PA-C When: September 09, 2023 at 3:30 PM Meaningful Use Info Meaningful Use Diagnoses (Choose all that apply): None applicable Discharge Plan Admission Admit Date/Time: 08/25/23 08:38 Primary Reason for Your Visit: Left knee OA/TKA surgery Attending Provider: Daryl Luz Primary Care Provider: Angelic Monsalve Consulting Providers: Sera Byrd; En Banks Discharge Orders/Prescriptions Prescriptions: New acetaminophen 500 mg Tablet 1,000 mg PO Q8 Qty: 0 0RF calcium carbonate 200 mg calcium (500 mg) Tablet,Chewable 1,000 mg PO Q6H PRN PRN (Reason: DYSPEPSIA) Qty: 0 0RF aspirin 81 mg Tablet,Chewable 81 mg PO BIDCM Qty: 0 0RF famotidine 20 mg Tablet 20 mg PO DAILY 30 Days Qty: 30 0RF doxycycline monohydrate 100 mg Capsule 100 mg PO BID 7 Days Qty: 14 0RF oxycodone 5 mg Tablet 5 - 10 mg PO Q4H PRN PRN (Reason: Pain Score 4-10) 5 Days Qty: 42 0RF polyethylene glycol 3350 17 gram Powder In Packet 17 g PO BID Qty: 0 0RF sennosides-docusate sodium [Stool Softener-Stimulant Laxat] 8.6-50 mg Tablet 2 tab PO BID 7 Days Qty: 28 0RF Continued ferrous sulfate [Feosol] 325 mg (65 mg iron) tablet 650 mg PO DAILY folic acid 1 mg tablet 1 mg PO DAILY cholecalciferol (vitamin D3) [Vitamin D3] 25 mcg (1,000 unit) capsule 25 mcg PO DAILY Referrals / Follow Up: Angelic Monsalve MD [Primary Care Provider] - Disposition Disposition (needs filled in before D/C Order can be placed): Home Health Service
[2023-09-02 16:09] VITALS: BP 133/61; PULSE 88; RESP 18; TEMP 36.7; O2SAT 98
[2023-09-02 22:00] VITALS: BP 158/65; PULSE 93; RESP 17; TEMP 36.9; O2SAT 95
[2023-09-03 04:00] VITALS: BP 133/68; PULSE 91; RESP 16; TEMP 36.4; O2SAT 93
[2023-09-03] MEDS: Acetaminophen 500 MG Tablet 1000 MG PO ×2 (06:33→13:12)
[2023-09-03 08:00] VITALS: BP 132/77; PULSE 92; RESP 17; TEMP 36.7; O2SAT 92
[2023-09-03] MEDS: Cholecalciferol (VIT D3) 25 MCG TABLET (1,000 UNITS) PO (08:36)
[2023-09-03] MEDS: Folic Acid 1 MG Tablet PO (08:36)
[2023-09-03] MEDS: Aspirin 81 MG TAB.CHEW PO (08:36)
[2023-09-03] MEDS: oxyCODONE 5 MG Tablet PO ×2 (08:37→16:24)
--- NOTE | 2023-09-03 10:54 | PCM.PN.HOSP ---
Reason for Visit Reason for Visit: Diagnoses Morbid (severe) obesity due to excess calories (08/25/23) Other acute postprocedural pain (08/25/23) Venous insufficiency (chronic) (peripheral) (08/25/23) Unilateral primary osteoarthritis, left knee (08/25/23) Hypoxemia (08/25/23) Presence of left artificial knee joint (08/25/23) Objective Data Objective Data Vital Signs: Vital Signs Temp Pulse Resp BP Pulse Ox O2 Del Method O2 Flow Rate 98.0 F 92 17 132/77 H 92 Room Air 3 09/03/23 08:00 09/03/23 08:00 09/03/23 08:00 09/03/23 08:00 09/03/23 08:00 09/03/23 08:00 08/29/23 10:00 Oxygen Flow Rate (L/min) 3 Oxygen Delivery Method Room Air Weight: 352 lb 11.834 oz Body Mass Index (BMI) 41.8 Intake & Output: Intake and Output for Last 24 Hours 09/01/23 09/02/23 09/03/23 23:59 23:59 23:59 Intake Total 1950 / 2650 2750 / 2750 400 / 400 Output Total 1430 / 1430 200 / 200 Balance 520 / 1220 2750 / 2550 200 / 200 Lab / Micro Data 09/01/23 07:18 09/01/23 07:18 Physical Exam Narrative Seen and examined Patient had good bowel movement. Ready to be discharged today. Hospital bed will be set up today at his own. Right knee dressing was changed. Physical exam General: Alert, Oriented x3, Cooperative, morbid obesity BMI 41.8 kg/m? HEENT: Atraumatic, PERRLA, EOMI, Normocephalic Oral: No Gingival or Mucosal Lesions/ Ulcerations Neck: Supple, No JVD, Negative Carotid Bruits Chest wall/Lungs: Air entry diminished in bilateral lung bases. No crepitation/rhonchi Cardiovascular: Regular rate, Regular Rhythm, Normal S1, Normal S2, No M/G/R Abdomen: Bowel Sounds Present, Soft, Non Tender, Non-Distended : No dysuria. No renal angle tenderness. No suprapubic tenderness. Extremities: No edema, Capillary Refill Less than 3 Seconds Skin: Left knee status post TKR, surgical dressing was changed by Dr. Luz. [place] intact. No signs of infection. Musculoskeletal: Left knee tender around operative region. No Tenderness to Palpation of other joints or Extremities Neurological: Cranial nerves II-XII grossly intact, DTR 2+/4. No acute focal neurological deficit. Psych/Mental Status: Normal Affect, Appropriate. Assessment & Plan Assessment/Plan (1) Status post total left knee replacement: PLAN: Plan 1. Type 2 diabetes-patient is currently diet controlled and is not on any medications. Glucose is 125 in BMP. 08/31: Glucose is controlled. 09/01: Glucose in Accu-Chek 164. In BMP 157. In acceptable range. 09/02: Glucose is reasonably controlled 164 in BMP. 09/03: Glucose is controlled. 2 Morbid obesity-complicates care, medical course, recovery, and prognosis 3 osteoarthritis of the left knee-Patient had left knee minimally invasive robotic assisted total knee replacement on 08/25/2023. Continue PT and OT. Patient has difficulty in moving around but was able to walk outside in the hallway and in the rehab room. Plan for rehab discharge. 08/31: Patient is moving bowels. Still has significant pain. 09/01: Patient has mild bruising around knee but that is expected. Patient was evaluated by Dr. Luz. Plan for discharge to rehab, dependency case manager working on it. 09/02: manager buildingfiscal services manager worker working on his discharge plan. Possible discharge tomorrow with hospital bed and DME equipments set up at home. 09/03: Dressing was changed. [place] intact. No acute signs of infection or discharge. Follow-up with [facility] Dr. Luz. Expected discharge today. 4 hypoxia-secondary to atelectasis/morbid obesity suspected obstructive sleep apnea: As per the 's, he has restless sleep with snoring. Sometimes he does not breathe for 10 to 15 seconds and then wakes up with loud snoring with inspiration. Then he falls to sleep. Advised follow-up with PCP for outpatient sleep study and CPAP. Patient was educated about that. Continue incentive spirometry. 5. Morbid obesity: BMI 41.8 kg/m?. Weight loss counseling done. Operating Systems Programmer consult. 6. JOSE RAUL, prerenal: Patient was admitted with creatinine 1.5, went up 1.9 and then came back 1.25. Seems mainly due to fluid shift and medications. JOSE RAUL resolved 09/01: Creatinine 1.12. Improvement in creatinine. Hospitalist team will sign off. Expected discharge today. Rest as mentioned above. Charges/Coding Visit Charges Inpatient E&M: 93481 Subs Hosp L2
[2023-09-03] MEDS: Doxycycline 100 MG CAPSULE PO (11:12)
--- NOTE | 2023-09-03 12:26 | CASEMGMT ---
Addendum entered by Maryellen Goyal 09/03/23 15:10: DEREK ZAMBRANO into pt room to discuss HHC as call received from [facility] that pt was declining. Pt reports that he spoke with [facility] and was informed that they would primarily teach him how to get in and out of the vehicle. Pt reports that if he can get in the vehicle for DC then he does not need therapy to show him how. Pt reports that Dr. Luz wants him to get rid of HHC as soon as possible and wants him to come in for OP PT/OT. Pt reports that if he gets home and realizes he needs HHC he will call them, he reports the [facility] told him he could do that if need be. Maryellen Goyal MSN, RN, CCM Original Note: DEREK ZAMBRANO spoke with [employer] who reports they have delivered the hospital bed and BSC to the home. Spoke with pt bedside who confirms both have been delivered. Pt reports his spouse will be up around 3PM and will help him shower at the hospital and then provide transportation home[facility]. Maryellen GROVE, RN, CCM
[2023-09-03 16:10] VITALS: BP 128/68; PULSE 88; RESP 18; TEMP 36.5; O2SAT 93
--- NOTE | 2023-09-03 17:12 | NURSING ---
This Rn verified student nurse EMR HTT documentation. [facility] 09/03 1699
== END 2023-09-03 16:32 | disposition home health service (06) | DRG 470 ==
LOC: ACINP 08:40 → MS3 13:22
PROVIDERS: Internal Medicine; Admitting Provider Specialist; PCP Family Medicine; Referring Provider Specialist; Visit Provider Specialist
PROC: 0SRD0JZ Replacement of Left Knee Joint with Synthetic Substitute, Open Approach (ICD-10-PCS; CPT 27447; principal; 2023-08-25 10:45)
DX: M17.12 Unilateral primary osteoarthritis, left knee (principal); D62 Acute posthemorrhagic anemia; N17.9 Acute kidney failure, unspecified; Z68.41 Body mass index [BMI] 40.0-44.9, adult; N13.8 Other obstructive and reflux uropathy; E11.59 Type 2 diabetes mellitus with other circulatory complications; E66.01 Morbid (severe) obesity due to excess calories; D51.0 Vitamin B12 deficiency anemia due to intrinsic factor deficiency; M21.062 Valgus deformity, not elsewhere classified, left knee; M54.50 Low back pain, unspecified; E53.8 Deficiency of other specified B group vitamins; G47.30 Sleep apnea, unspecified; E87.5 Hyperkalemia; I87.2 Venous insufficiency (chronic) (peripheral); G47.33 Obstructive sleep apnea (adult) (pediatric); Z96.652 Presence of left artificial knee joint; N40.1 Benign prostatic hyperplasia with lower urinary tract symptoms; Z79.1 Long term (current) use of non-steroidal anti-inflammatories (NSAID); R09.02 Hypoxemia
CPT/HCPCS: 36415; 71045; 73560; 80048; 82962; 85025; 85027; 88305; 88311; 94668; 97110; 97116; 97162; 97166; 97530; 97535; 99252; C1776; J7120; A4216; G0463; J1940; J2310; J2405; J3475

== ENCOUNTER → 2023-09-27 | Outpatient (CLI) | payer MEDICARE, MEDICAID, SELFPAY ==
[2023-09-27 17:43] LABS: Absolute Lymphocyte Count 0.64 X10^3/uL (0.83-4.51); Absolute Neutrophil Count 2.3 X10^3/uL (2.0-7.7); Basophil# 0.02 X10^3/uL; Basophil% 0.6 % (0-1); Eosinophil# 0.22 X10^3/uL; Eosinophils% 6.3 % (0-5); Hematocrit 30.9 % (40-54); Lymphocyte # 0.64 X10^3/ul (0.83-4.51); Lymphocyte % 18.2 % (19-41); Mean Corp Hgb Conc 29.1 g/dL (32-36); Mean Corpuscular Hgb 30.6 pg (27.0-32.0); Mean Corpuscular Volume 105.1 fL (80-94); Mean Platelet Vol. 10.8 fl (6.2-12.0); Monocyte% 8.5 % (0-10); NRBC Flagged by Analyzer 0 % (0-5); Neutrophil # 2.33 X10^3/uL (2.7-7.7); Neutrophil % 66.1 % (47-70); Platelet Count 130 K/mm3 (150-450); RBC Distribution Width CV 15.5 % (11.6-14.6); RBC Distribution Width SD 59.7 fl (35.1-43.9); Red Blood Count 2.94 M/mm3 (4.6-6.2); White Blood Count 3.5 K/mm3 (4.4-11.0)
[2023-09-27 18:21] LABS: ALB/GLOB Ratio 0.9 RATIO (0.9-2.4); AST(SGOT) 22 U/L (15-37); Alanine Aminotransfer ALT/SGPT 17 U/L (16-61); Albumin, Serum 3.1 g/dL (3.2-5.0); Alkaline Phosphatase 145 U/L (45-117); Anion Gap 4 (5-15); BUN 25 mg/dL (7-18); BUN/Creat Ratio 21.2 RATIO (10-20); Calcium,Total 8.5 mg/dL (8.5-10.1); Chloride 107 mmol/L (98-107); Creatinine, Serum 1.18 mg/dL (0.70-1.30); EST Glomerular Filtration Rate 66 mL/min (>60); Est Glom Filt Rate - Afr Amer 80 mL/min (>60); Globulin 3.6 g/dL (2.2-4.2); Glucose 111 mg/dL (74-106); Potassium 4.8 mmol/L (3.5-5.1); Protein, Total 6.7 g/dL (6.4-8.2); Sodium Level 141 mmol/L (136-145); Thyroid Stim Hormone (TSH) 3.76 uIU/mL (0.358-3.74)
== END | disposition home or self-care (01) ==
LOC: MFPLAB 15:39
PROVIDERS: PCP Family Medicine; Visit Provider Family Medicine
DX: R60.0 Localized edema (principal); D51.0 Vitamin B12 deficiency anemia due to intrinsic factor deficiency
CPT/HCPCS: 36415; 80053; 84443; 85025

== ENCOUNTER → 2023-11-16 | Outpatient (CLI) | payer MEDICARE, MEDICAID, SELFPAY ==
[2023-11-16 17:32] LABS: Absolute Lymphocyte Count 0.78 X10^3/uL (0.83-4.51); Absolute Neutrophil Count 2.7 X10^3/uL (2.0-7.7); Basophil# 0.02 X10^3/uL; Basophil% 0.5 % (0-1); Eosinophil# 0.19 X10^3/uL; Eosinophils% 4.7 % (0-5); Hematocrit 23.4 % (40-54); Hemoglobin 6.7 g/dL (13.0-16.5); Lymphocyte # 0.78 X10^3/ul (0.83-4.51); Lymphocyte % 19.3 % (19-41); Mean Corp Hgb Conc 28.6 g/dL (32-36); Mean Corpuscular Hgb 27.3 pg (27.0-32.0); Mean Corpuscular Volume 95.5 fL (80-94); Mean Platelet Vol. 10.6 fl (6.2-12.0); Monocyte# 0.34 X10^3/uL; Monocyte% 8.4 % (0-10); NRBC Flagged by Analyzer 0 % (0-5); Neutrophil # 2.71 X10^3/uL (2.7-7.7); Neutrophil % 66.9 % (47-70); Platelet Count 151 K/mm3 (150-450); RBC Distribution Width CV 15.9 % (11.6-14.6); RBC Distribution Width SD 55.8 fl (35.1-43.9); Red Blood Count 2.45 M/mm3 (4.6-6.2); White Blood Count 4.1 K/mm3 (4.4-11.0)
[2023-11-16 18:12] LABS: ALB/GLOB Ratio 0.8 RATIO (0.9-2.4); AST(SGOT) 20 U/L (15-37); Alanine Aminotransfer ALT/SGPT 16 U/L (16-61); Alkaline Phosphatase 109 U/L (45-117); Anion Gap 5 (5-15); BUN 28 mg/dL (7-18); BUN/Creat Ratio 21.1 RATIO (10-20); Calcium,Total 8.5 mg/dL (8.5-10.1); Chloride 109 mmol/L (98-107); Creatinine, Serum 1.33 mg/dL (0.70-1.30); EST Glomerular Filtration Rate 57 mL/min (>60); Est Glom Filt Rate - Afr Amer 69 mL/min (>60); Globulin 3.8 g/dL (2.2-4.2); Glucose 162 mg/dL (74-106); Potassium 4.2 mmol/L (3.5-5.1); Protein, Total 6.8 g/dL (6.4-8.2); Sodium Level 144 mmol/L (136-145); Thyroid Stim Hormone (TSH) 2.98 uIU/mL (0.358-3.74)
== END | disposition home or self-care (01) ==
LOC: MFPLAB 14:29
PROVIDERS: PCP Family Medicine; Visit Provider Family Medicine
DX: R60.0 Localized edema (principal); D51.0 Vitamin B12 deficiency anemia due to intrinsic factor deficiency
CPT/HCPCS: 36415; 80053; 84443; 85025

== ENCOUNTER 2023-11-18 11:23 | Outpatient (CLI) | payer MEDICARE, SELFPAY ==
[2023-11-18] VITALS (7 sets, daily range): BP systolic 132–145; BP diastolic 61–69; PULSE 82–90; RESP 16; TEMP 36.6–37; O2SAT 92–96; BMI 41.0
[2023-11-18] MEDS: Furosemide 20 MG/2 ML VIAL IV (14:09)
== END 2023-11-18 11:24 | disposition home or self-care (01) ==
LOC: MEDOUTP 11:23
PROVIDERS: PCP Family Medicine; Referring Provider Family Medicine; Visit Provider Family Medicine
DX: D64.9 Anemia, unspecified (principal)
CPT/HCPCS: 96374; 36415; 36430; 86850; 86900; 86901; 86920; 86922; J7040; P9016; A4216; J1940

== ENCOUNTER 2023-11-23 15:06 | Outpatient (CLI) | payer MEDICARE, SELFPAY ==
[2023-11-23 16:51] LABS: Vitamin B12 476 pg/mL (211-911)
[2023-11-23 16:53] LABS: Absolute Lymphocyte Count 0.79 X10^3/uL (0.83-4.51); Absolute Neutrophil Count 2.8 X10^3/uL (2.0-7.7); Basophil# 0.02 X10^3/uL; Basophil% 0.5 % (0-1); Eosinophil# 0.19 X10^3/uL; Eosinophils% 4.6 % (0-5); Hematocrit 27.8 % (40-54); Immature Platelet Fraction 3.3 % (1.0-7.9); Lymphocyte # 0.79 X10^3/ul (0.83-4.51); Lymphocyte % 19.1 % (19-41); Mean Corp Hgb Conc 28.8 g/dL (32-36); Mean Corpuscular Hgb 27.6 pg (27.0-32.0); Mean Corpuscular Volume 95.9 fL (80-94); Mean Platelet Vol. 11.8 fl (6.2-12.0); Monocyte# 0.29 X10^3/uL; NRBC Flagged by Analyzer 0 % (0-5); Neutrophil # 2.82 X10^3/uL (2.7-7.7); Neutrophil % 68.1 % (47-70); POSITIVE MORPHOLOGY YES; Platelet Count 133 K/mm3 (150-450); RBC Distribution Width CV 17.1 % (11.6-14.6); RBC Distribution Width SD 58.6 fl (35.1-43.9); RET-HE 24.4 pg (30-35); Reticulocyte Count 3.63 % (0.5-1.5); White Blood Count 4.1 K/mm3 (4.4-11.0)
[2023-11-23 17:02] LABS: Differential Indicated SCAN CRITERIA MET
[2023-11-23 17:03] LABS: Anion Gap 1 (5-15); BUN 27 mg/dL (7-18); BUN/Creat Ratio 21.6 RATIO (10-20); Calcium,Total 8.7 mg/dL (8.5-10.1); Chloride 110 mmol/L (98-107); Creatinine, Serum 1.25 mg/dL (0.70-1.30); EST Glomerular Filtration Rate 62 mL/min (>60); Est Glom Filt Rate - Afr Amer 75 mL/min (>60); Glucose 143 mg/dL (74-106); Iron 17 ug/dL (65-175); Iron Binding Capacity,Total 405 ug/dL (250-450); PERCENT IRON SATURATION 4.2 % (15.0-55.0); Potassium 4.2 mmol/L (3.5-5.1); Sodium Level 143 mmol/L (136-145)
[2023-11-23 18:27] LABS: Differential Comment SCANNED
== END 2023-11-23 23:59 | disposition home or self-care (01) ==
LOC: MFPLAB 15:07
PROVIDERS: PCP Family Medicine; Visit Provider Family Medicine
DX: R60.9 Edema, unspecified (principal); D51.0 Vitamin B12 deficiency anemia due to intrinsic factor deficiency
CPT/HCPCS: 36415; 80048; 82607; 83540; 83550; 85025; 85045

== ENCOUNTER → 2023-12-03 | Outpatient (CLI) | payer MEDICARE, SELFPAY ==
[2023-12-03 10:33] LABS: Absolute Lymphocyte Count 0.62 X10^3/uL (0.83-4.51); Absolute Neutrophil Count 2.3 X10^3/uL (2.0-7.7); Basophil# 0.02 X10^3/uL; Basophil% 0.6 % (0-1); Eosinophil# 0.16 X10^3/uL; Eosinophils% 4.7 % (0-5); Hematocrit 28.9 % (40-54); Hemoglobin 8.2 g/dL (13.0-16.5); Lymphocyte # 0.62 X10^3/ul (0.83-4.51); Lymphocyte % 18.3 % (19-41); Mean Corp Hgb Conc 28.4 g/dL (32-36); Mean Corpuscular Hgb 28.4 pg (27.0-32.0); Mean Platelet Vol. 11.6 fl (6.2-12.0); Monocyte# 0.26 X10^3/uL; Monocyte% 7.7 % (0-10); NRBC Flagged by Analyzer 0 % (0-5); Neutrophil # 2.31 X10^3/uL (2.7-7.7); Neutrophil % 68.4 % (47-70); POSITIVE MORPHOLOGY YES; Platelet Count 159 K/mm3 (150-450); RBC Distribution Width CV 19.2 % (11.6-14.6); RBC Distribution Width SD 69.8 fl (35.1-43.9); Red Blood Count 2.89 M/mm3 (4.6-6.2); White Blood Count 3.4 K/mm3 (4.4-11.0)
[2023-12-03 10:37] LABS: Differential Indicated SCAN CRITERIA MET
[2023-12-03 10:57] LABS: Anion Gap 3 (5-15); BUN 24 mg/dL (7-18); BUN/Creat Ratio 23.3 RATIO (10-20); Calcium,Total 8.8 mg/dL (8.5-10.1); Chloride 109 mmol/L (98-107); Creatinine, Serum 1.03 mg/dL (0.70-1.30); EST Glomerular Filtration Rate 77 mL/min (>60); Est Glom Filt Rate - Afr Amer 93 mL/min (>60); Glucose 125 mg/dL (74-106); Potassium 4.5 mmol/L (3.5-5.1); Sodium Level 142 mmol/L (136-145)
[2023-12-03 11:47] LABS: Anisocytosis 2+; Differential Comment SCANNED; Macrocytosis 1+; Microcytosis 1+
== END | disposition home or self-care (01) ==
LOC: MFPLAB 09:35
PROVIDERS: PCP Family Medicine; Visit Provider Family Medicine
DX: R60.9 Edema, unspecified (principal); D64.9 Anemia, unspecified
CPT/HCPCS: 36415; 80048; 85025

== ENCOUNTER → 2023-12-24 | Outpatient (CLI) | payer MEDICARE, SELFPAY ==
[2023-12-24 17:38] LABS: Absolute Lymphocyte Count 0.74 X10^3/uL (0.83-4.51); Absolute Neutrophil Count 3.1 X10^3/uL (2.0-7.7); Basophil# 0.02 X10^3/uL; Basophil% 0.4 % (0-1); Eosinophil# 0.15 X10^3/uL; Eosinophils% 3.4 % (0-5); Hematocrit 30.8 % (40-54); Hemoglobin 8.4 g/dL (13.0-16.5); Lymphocyte # 0.74 X10^3/ul (0.83-4.51); Lymphocyte % 16.6 % (19-41); Mean Corp Hgb Conc 27.3 g/dL (32-36); Mean Corpuscular Hgb 28.7 pg (27.0-32.0); Mean Corpuscular Volume 105.1 fL (80-94); Monocyte# 0.43 X10^3/uL; Monocyte% 9.6 % (0-10); NRBC Flagged by Analyzer 0 % (0-5); Neutrophil # 3.09 X10^3/uL (2.7-7.7); Neutrophil % 69.3 % (47-70); POSITIVE MORPHOLOGY YES; Platelet Count 167 K/mm3 (150-450); RBC Distribution Width CV 20.9 % (11.6-14.6); RBC Distribution Width SD 81.2 fl (35.1-43.9); RET-HE 22.9 pg (30-35); Red Blood Count 2.93 M/mm3 (4.6-6.2); Reticulocyte Count 3.12 % (0.5-1.5); White Blood Count 4.5 K/mm3 (4.4-11.0)
[2023-12-24 17:48] LABS: Differential Indicated SCAN CRITERIA MET
[2023-12-24 17:57] LABS: ALB/GLOB Ratio 0.7 RATIO (0.9-2.4); AST(SGOT) 18 U/L (15-37); Alanine Aminotransfer ALT/SGPT 13 U/L (16-61); Alkaline Phosphatase 96 U/L (45-117); Anion Gap 6 (5-15); BUN 27 mg/dL (7-18); BUN/Creat Ratio 23.9 RATIO (10-20); Calcium,Total 8.6 mg/dL (8.5-10.1); Chloride 107 mmol/L (98-107); Creatinine, Serum 1.13 mg/dL (0.70-1.30); EST Glomerular Filtration Rate 69 mL/min (>60); Est Glom Filt Rate - Afr Amer 84 mL/min (>60); Globulin 4.1 g/dL (2.2-4.2); Glucose 115 mg/dL (74-106); Iron 17 ug/dL (65-175); Potassium 4.9 mmol/L (3.5-5.1); Protein, Total 7.1 g/dL (6.4-8.2); Sodium Level 143 mmol/L (136-145); T4 Total, Thyroxin 5.6 ug/dL (4.5-12.1); Thyroid Stim Hormone (TSH) 4.67 uIU/mL (0.358-3.74)
[2023-12-24 18:09] LABS: Anisocytosis 1+; Hypochromasia 2+; Macrocytosis 1+; Platelet Estimate ADEQUATE (ADEQ); Platelet Morphology LARGE; Polychromasia RARE; Red Cell Morphology N CHROM NORMAL (NORM C&C)
== END | disposition home or self-care (01) ==
LOC: MFPLAB 15:09
PROVIDERS: PCP Family Medicine; Visit Provider Family Medicine
DX: R60.9 Edema, unspecified (principal); D64.9 Anemia, unspecified; E03.9 Hypothyroidism, unspecified
CPT/HCPCS: 36415; 80053; 83540; 84436; 84443; 85025; 85045

== ENCOUNTER 2023-12-28 06:44 | Inpatient (IN) | payer MEDICARE, SELFPAY ==
[2023-12-28] VITALS (16 sets, daily range): BP systolic 102–166; BP diastolic 50–89; PULSE 81–102; RESP 16–33; TEMP 21.1–36.6; O2SAT 81–100; BMI 45.6
--- NOTE | 2023-12-28 07:26 | RAD_ITS ---
STUDY: X-RAY CHEST REASON FOR EXAM: Male, 63 years old. CHF. TECHNIQUE: Single AP portable view of the chest. COMPARISON: Comparison is made with prior chest radiograph dated August 27, 2023. FINDINGS: Limited inspiratory effort. There is evidence of vascular congestion and mild CHF. There is no demonstrated pleural abnormality. There is mild cardiac enlargement. Normal mediastinum and tay. Normal visualized pulmonary arteries. Normal visualized aortic arch and descending thoracic aorta. Normal visualized thoracic spine. Normal visualized ribs, clavicles, and shoulders. There is no demonstrated abnormality of the visualized soft tissue structures of the upper abdomen. RAD/Chest 1 View (Portable) IMPRESSION: Mild cardiomegaly and vascular congestion and CHF. Limited inspiratory effort. Electronically Signed: Luis Manuel Nelson MD at 8:20 EDT ,
--- NOTE | 2023-12-28 07:26 | EKG12_ITS ---
Test Reason : CP Blood Pressure : / mmHG Vent. Rate : 095 BPM Atrial Rate : 095 BPM P-R Int : 172 ms QRS Dur : 134 ms QT Int : 400 ms P-R-T Axes : 032 -59 024 degrees QTc Int : 502 ms Normal sinus rhythm Left axis deviation Right bundle branch block Inferior infarct , age undetermined Abnormal ECG Confirmed by HAIR SOMMER, AMIE ([id number]), video tape editor ASHLEY HARP ([id number]) on 12/30/2023 8:10:11 AM Referred By: Confirmed By:AMIE ARNDT MD
--- NOTE | 2023-12-28 07:28 | ED.VIS.FALL ---
HPI HPI - Fall History of Present Illness Chief Complaint: Fall Detail of Chief Complaint: Fell twice in the last 24 hours at home. Lives with his . Informant: patient Occured/Mechanism Occurred: Today Mechanism/Context: Yes same level fall Usually ambulates: Walker Pain/Injury Pain Location: back Quality of Pain: Dull and Aching Current Severity: Moderate Maximum Severity: Moderate Associated Symptoms Associated Symptoms: Positive for Weakness; Negative for Parasthesias, Loss of function, Inability to ambulate, Loss of consciousness or Amnesia Narrative Narrative: 63-year-old male history diabetes chronic pain prior left knee replacement pernicious anemia requiring transfusion about 3 weeks ago received 2 units of blood. That has been generally weak at home he has been battling a 40+ pound weight gain secondary to fluid retention which they have him on Lasix. Said he fell yesterday and again at 4 AM this morning. Squad was called out to help get him up and brought him into the emergency department. He has a known T12 compression fracture. He said his left lower back hurts since his second fall. Denies any LOC. Denies being on any blood thinners or having any significant head injury. Denies any vomiting or diarrhea or melena. No fever. Prior similar symptoms: Yes Recent Illness/Hospitalization: No PFSH PFSH Medical History Osteoarthritis of left knee Diabetes Bladder disease Dietary restriction Injury of head and neck History of pain when walking Walker as ambulation aid Foot drop, right Arthritis Chronic pain Non-smoker Home Medications ?Medication ?Instructions ?Recorded ?Last Taken ?Type acetaminophen 500 mg tablet 1,000 mg (2 x 500 mg) PO Q8 #0 tabs 09/02/23 12/27/23 Rx calcium carbonate 1,000 mg (5 x 200 mg calcium (500 09/02/23 12/27/23 Rx mg)) PO Q6H PRN PRN DYSPEPSIA #0 tabs furosemide 40 mg tablet 40 mg PO BID 11/18/23 Unknown History ferrous fumarate-folic acid 324 mg 1 tab PO DAILY 12/28/23 12/27/23 History (106 mg iron)-1 mg tablet (Hematinic/Folic Acid) levothyroxine 75 mcg tablet 75 mcg PO DAILY 12/28/23 12/27/23 History Allergy/AdvReac Type Severity Reaction Status Date / Time gabapentin AdvReac Intermediate HALLUCINATI Verified 12/28/23 06:52 ONS Family History Other Multiple sclerosis Surgical History Hx of left cataract extraction Hx of eye surgery Social History Smoking Status: Never smoker ROS ROS ED ROS Narrative Generalized weakness. Review of Systems ROS Unobtainable: Denies due to encephalopathy Constitutional Constitutional ED: Denies chills or fever(s) Eyes Eyes: Denies blurry vision ENT ENT ED: Denies ear pain Cardiovascular Cardiovascular: Denies chest pain Respiratory/Chest Respiratory/Chest: Denies cough or dyspnea Gastrointestinal Gastrointestinal: Denies abdominal pain Genitourinary Genitourinary ED: Denies dysuria or hematuria Musculoskeletal Musculoskeletal: Reports back pain; Denies arthralgias or neck pain Integumentary Denies abscess or Abrasions Neurologic Neurologic: Denies headache(s) Psychiatric Psychiatric: Denies anxiety or depression Endocrine Endocrinology: Denies polydipsia Hematologic/Lymphatic Hematologic/Lymphatic: Denies easy bleeding or easy bruising Allergic/Immunologic Allergic/Immunologic ED: Denies mouth swelling or tongue swelling EXAM Physical Exam Narrative Exam Narrative: 58-year-old male lying supine on his abdomen. Vital signs are stable with a temperature will get rechecked at all think that is accurate. He is awake alert and talking. No one else is present in room. H EENT exam atraumatic. Pupils round react to light. Mytrex membranes. Neck nontender. Back he has no spine tenderness. He has a left little paralumbar soft tissue tenderness. There is no bruising or signs of trauma. Lungs are clear. Heart regular rhythm rate about 90. Chest wall and ribs are nontender. Abdomen is soft and nondistended normal bowel sounds without peritoneal signs. Pelvic girdle intact. Moving all 4 extremities. 2+ pitting edema both lower extremities. 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 Normal dorsi plantarflexion. Neurologically is awake and alert. Answering questions and following commands. No focal motor deficits. Const Vital Signs: 12/28/23 06:45 12/28/23 07:36 12/28/23 09:09 Temperature 69.9 F L 97.8 F 96.9 F L Temperature Source Temporal Oral Pulse Rate 91 97 Respiratory Rate 18 16 Blood Pressure 135/50 H 152/63 H Blood Pressure Mean 78 92 Pulse Ox 96 91 Oxygen Delivery Method Room Air Positive well nourished and well developed; Negative for cachectic, contractures or unkempt General Appearance ED: well developed and NAD; Negative for unkempt, cachectic or contractures Nutritional Appearance: Negative for cachectic HEENT Reports normocephalic atraumatic; Negative for trauma, contusion, hematoma or tenderness Eyes PERRL and EOMs intact bilaterally General Eye ED: Negative for pale conjunctiva or scleral icterus Neck full ROM, no lymphadenopathy and supple General: Negative for tenderness Chest Wall inspection of chest normal and palpation of chest normal Chest: Negative for other Resp normal respiratory effort, no retractions and clear to auscultation bilaterally Effort and Inspection: Negative for pain with movement Auscultation: Negative for rales, rhonchi, wheezes or diminished lung sounds Cardio regular rate, regular rhythm, S1 normal heart sound, S2 normal heart sound and no murmurs Rate: Negative for bradycardia or tachycardic Rhythm: Negative for abnormal rhythm Bruits: Negative for other GI non-tender, non-distended and no masses Inspection: Negative for abdominal distention Palpation: soft; Negative for guarding or rebound tenderness present Back/Spine no CVA tenderness Back/Spine Narrative: Left lower paralumbar soft tissue tenderness. No spine tenderness. No bruising. Cervical Spine: Negative for cervical spine tenderness Lumbar Spine / Lower Back: Negative for lumbar spinal tenderness Extremity Extremity Narrative: Moving all 4 extremities. Nontender. No deformity. 2+ pitting edema both lower extremities. Neuro oriented x3, CN's II-XII intact bilaterally, moves all extremities and no focal motor deficits Sensorium / Orientation: alert, oriented to person, oriented to place and oriented to time Motor Exam: strength 5/5 throughout Psych mental status grossly normal and thought process normal Appearance: Negative for unkempt Attitude: No agitated Mood & Affect: Negative for depressed, anxious or tearful Skin Lesions: no lesions MDM MDM MDM Narrative Medical decision making narrative: Large 63-year-old male who has a history of anemia. Also recent CHF. He is just felt generally weak at home and has had 2 falls in the last 24 hours. Complaining of low back pain. Screening labs will be obtained along with a LS-spine films. Repeat exam patient got up and could use his walker but then he almost fell getting back into the room after he went down the hallway. With 2 falls in the last 24 hours and a second compression fracture on the most recent falls and admitting the hospital. Failure to thrive. Prior to admission around 9:45 AM patient described chest discomfort. He thinks it is from not eating and may be esophagitis. We did obtain EKG which shows sinus rhythm rate 95 no acute signs of NV or ischemia. He does have a right bundle branch block. It was unchanged in the prior EKG that we did earlier. History & Record Review Discussion w/independent historian: Patient Additional record(s) reviewed:: Prior inpatient record, Prior outpatient record and Prior ED visit Lab Data Attestation: I reviewed the patient's lab results. Lab results narrative: CBC shows a white count 3.5. H&H is 7.8 and 28 which he has a baseline anemia. Platelets 132. Electrolytes unremarkable gap 2. BUN 33 creatinine 1.2 consistent with mild dehydration. Glucose 120. CPK was only 95. Labs: Laboratory Results - last 24 hr 12/28/23 07:40 WBC 3.5 L RBC 2.71 L Hgb 7.8 L Hct 28.4 L MCV 104.8 H MCH 28.8 MCHC 27.5 L RDW Std Deviation 78.9 H RDW Coeff of Tan 20.6 H Plt Count 132 L MPV 11.0 Immature Gran % (Auto) 0.300 Neut % (Auto) 74.4 H Lymph % (Auto) 13.5 L [place] % (Auto) 8.6 Eos % (Auto) 2.6 Baso % (Auto) 0.6 Absolute Neuts (auto) 2.6 Absolute Lymphs (auto) 0.47 L Nucleated RBC % 0 Anisocytosis 2+ Sodium 143 Potassium 4.5 Chloride 109 H Carbon Dioxide 32.0 Anion Gap 2 L BUN 33 H Creatinine 1.21 Est GFR (MDRD) Af Amer 77 Est GFR (MDRD) Non-Af 64 BUN/Creatinine Ratio 27.3 H Glucose 120 H Calcium 8.7 Total Creatine Kinase 95 Radiography Chest X-Ray - ED: 1 View, Read by ED Physician, Read by Radiologist, Heart, Lungs, Mediastinum, Bony Structures, No Acute Disease and Chronic Changes Diagnostic Testing: Clinical Impression(s) from Imaging Studies Chest X-Ray 12/28/23 07:26 IMPRESSION: Mild cardiomegaly and vascular congestion and CHF. Limited inspiratory effort. Electronically Signed: Luis Manuel Nelson MD at 8:20 EDT , Lumbar Spine X-Ray 12/28/23 08:00 IMPRESSION: Degenerative changes of the spine, as detailed above. Grade 1 anterolisthesis of L5 on S1 due to spondylolysis of the pars interarticularis of the L5 vertebrae. Prior vertebral plasty of the T12 compression fracture. 40% loss of height of the superior endplate of the L2 vertebrae. Electronically Signed: Luis Manuel Nelson MD at 8:36 EDT , Chest x-ray shows borderline cardiomegaly. Portable single view interpreted by myself and radiologist. There may be slight pulmonary edema. Lumbar spine shows a known T12 compression fracture with vertebroplasty cement. L2 has changes which may be an acute L2 compression fracture. This was not noted on prior MRIs. Rhythm Strip Rhythm Strip: Sinus Rhythm Rate: 89 Ectopy: None EKG Initial EKG: Attestation: I personally reviewed and interpreted this EKG as follows: Interpretation: Sinus Rhythm and No Acute Injury Pattern Comments: Normal sinus rhythm rate 89 no acute signs of NV or ischemia. Right bundle branch block. Follow-up EKG: Attestation: I personally reviewed and interpreted this EKG as follows: Interpretation: Sinus Rhythm and No Acute Injury Pattern Comments: Normal sinus rhythm rate 95. Right bundle branch block. Unchanged from the prior EKG from earlier today. Prior EKG tracings: available for review Prior: Unchanged Discharge Plan Dx/Rx/DC Orders Clinical Impression: Falls, Compression fracture of L2, Chronic anemia, Generalized weakness, History of diabetes mellitus Disposition Disposition: Acute Care [facility]
[2023-12-28] MEDS: Ondansetron 4 MG/2 ML Vial IV (07:40)
[2023-12-28] MEDS: HYDROmorphone 0.5 MG/0.5 ML SYRINGE IV ×2 (07:40→10:01)
[2023-12-28 07:50] LABS: Absolute Lymphocyte Count 0.47 X10^3/uL (0.83-4.51); Absolute Neutrophil Count 2.6 X10^3/uL (2.0-7.7); Basophil# 0.02 X10^3/uL; Basophil% 0.6 % (0-1); Eosinophil# 0.09 X10^3/uL; Eosinophils% 2.6 % (0-5); Hematocrit 28.4 % (40-54); Hemoglobin 7.8 g/dL (13.0-16.5); Lymphocyte # 0.47 X10^3/ul (0.83-4.51); Lymphocyte % 13.5 % (19-41); Mean Corp Hgb Conc 27.5 g/dL (32-36); Mean Corpuscular Hgb 28.8 pg (27.0-32.0); Mean Corpuscular Volume 104.8 fL (80-94); Monocyte% 8.6 % (0-10); NRBC Flagged by Analyzer 0 % (0-5); Neutrophil # 2.59 X10^3/uL (2.7-7.7); Neutrophil % 74.4 % (47-70); POSITIVE DIFFERENTIAL YES; POSITIVE MORPHOLOGY YES; Platelet Count 132 K/mm3 (150-450); RBC Distribution Width CV 20.6 % (11.6-14.6); RBC Distribution Width SD 78.9 fl (35.1-43.9); Red Blood Count 2.71 M/mm3 (4.6-6.2); White Blood Count 3.5 K/mm3 (4.4-11.0)
[2023-12-28 07:55] LABS: Differential Indicated SCAN CRITERIA MET
--- NOTE | 2023-12-28 08:00 | RAD_ITS ---
STUDY: X-RAY - LUMBAR SPINE REASON FOR EXAM: Male, 63 years old. Fall hx of T12 fx TECHNIQUE: 3 view(s) of the lumbar spine were obtained. COMPARISON: None FINDINGS: Normal lumbar lordosis. There is no substantial scoliosis. Grade 1 anterolisthesis of L5 on S1 due to spondylolysis of the pars interarticularis. There is multilevel endplate spondylosis of the lumbar vertebrae. There is multi-level degenerative disc disease with multi-level disc space narrowing. Prior vertebral plasty of the T12 vertebrae with compression fracture. There is approximately 40% loss of height of the superior endplate of the L2 vertebrae. There is atherosclerotic calcification of the abdominal aorta without a demonstrated aneurysm. RAD/Lumbar Spine 2 or 3 Views IMPRESSION: Degenerative changes of the spine, as detailed above. Grade 1 anterolisthesis of L5 on S1 due to spondylolysis of the pars interarticularis of the L5 vertebrae. Prior vertebral plasty of the T12 compression fracture. 40% loss of height of the superior endplate of the L2 vertebrae. Electronically Signed: Luis Manuel Nelson MD at 8:36 EDT ,
[2023-12-28 08:05] LABS: Anion Gap 2 (5-15); BUN 33 mg/dL (7-18); BUN/Creat Ratio 27.3 RATIO (10-20); Calcium,Total 8.7 mg/dL (8.5-10.1); Chloride 109 mmol/L (98-107); Creatinine, Serum 1.21 mg/dL (0.70-1.30); EST Glomerular Filtration Rate 64 mL/min (>60); Est Glom Filt Rate - Afr Amer 77 mL/min (>60); Glucose 120 mg/dL (74-106); Potassium 4.5 mmol/L (3.5-5.1); Sodium Level 143 mmol/L (136-145)
[2023-12-28 08:14] LABS: Anisocytosis 2+
[2023-12-28 08:21] LABS: CPK Total, Creatine Kinase 95 U/L (39-308)
--- NOTE | 2023-12-28 09:36 | NURSING ---
MED SURG OBS TERELETSKY FALLS, L2 COMP FX, WEAKNESS, FAILURE TO THRIVE, CHF, ANEMIA
--- NOTE | 2023-12-28 10:04 | EKG12_ITS ---
Test Reason : FALL Blood Pressure : / mmHG Vent. Rate : 089 BPM Atrial Rate : 089 BPM P-R Int : 172 ms QRS Dur : 132 ms QT Int : 418 ms P-R-T Axes : 043 -62 015 degrees QTc Int : 508 ms Normal sinus rhythm Left axis deviation Right bundle branch block Inferior infarct , age undetermined Abnormal ECG Confirmed by HAIR SOMMER, AMIE ([id number]), avid editor ASHLEY HARP ([id number]) on 12/30/2023 8:09:56 AM Referred By: Confirmed By:AMIE ARNDT MD
[2023-12-28] MEDS: Furosemide 40 MG Tablet PO (12:22)
[2023-12-28] MEDS: Ferrous Sulfate 325 MG Tablet 650 MG PO (12:22)
[2023-12-28] MEDS: Heparin Injection (Vial) 5,000 UNIT/ML VIAL 5000 UNIT SC ×2 (12:23→23:14)
[2023-12-28 15:42] LABS: Allen Test Positive; Base Excess 0 mmol/L (-2 to +2); Bicarbonate 28.6 mmol/L (22-26); Blood Gas Specimen Type ART; Mode Not entered; O2 Delivery Device Cannula; PO2 51 mmHG (75-100); SITE L Radial; SO2 73 % (95-99); Time Given 15:40:02; Total Carbon Dioxide 31 mmol/L; pCO2 79.7 mmHg (35-45); pH 7.16 (7.35-7.45)
--- NOTE | 2023-12-28 16:26 | NURSING ---
This RN had difficulty obtaining accurate pulse ox on pt's finger and ear. Pulse ox reading was showing anywhere from 30-90% on 5L of oxygen NC. Pt was lethargic and expressing that he didn't feel right. This RN contacted Dr Ruiz and he ordered arterial blood gases. ABGs were critically abnormal. Respiratory therapy applied bipap and pt's oxygen saturation was stabilized. Pt did not like having bipap mask on but Fabi Christie (RN) explained the importance of the bipap. Pt was transferred to PCU room [address] Ruiz's orders. Verbal report was given to Raven on PCU.
[2023-12-28 17:27] LABS: Allen Test Positive; Base Excess 5 mmol/L (-2 to +2); Bicarbonate 31.8 mmol/L (22-26); Blood Gas Specimen Type ART; Comment avaps; Mode Not entered; O2 Delivery Device BiPAP; PEEP 12; PO2 115 mmHG (75-100); RR 16; SITE L Radial; SO2 98 % (95-99); Time Given 17:25:50; Total Carbon Dioxide 34 mmol/L; pCO2 69.7 mmHg (35-45); pH 7.27 (7.35-7.45)
[2023-12-28] MEDS: 0.9% Saline Lock 10 ML Syringe IV (17:59)
[2023-12-28] MEDS: Ketorolac 15 MG/ML Vial IV (17:59)
--- NOTE | 2023-12-28 18:37 | PCM.HP.STD ---
HPI - General General Date of Admission: 12/28/23 Date of Service: 12/28/23 Chief Complaint: Generalized weakness, mechanical fall HPI Narrative JEFFREY CONNORS, is a 63 M who presents to the emergency room at [facility] after sustaining a fall early this morning. Patient's states that he has generalized weakness when he gets up to walk. Patient complains of back discomfort, he has a previous history of compression fracture approximately 4 years ago and underwent kyphoplasty. He told the emergency room physician today that he fell yesterday and then early this morning, he complains of lower back pain after the fall this morning. Workup in the emergency room included a CBC which showed a white blood cell count of 3.5, hemoglobin was 7.8, MCV was 104.8. Patient's platelet count was 132. Chemistry profile was remarkable for BUN of 33, chloride was 109, chest x-ray showed mild cardiomegaly and vascular congestion indicating CHF, lumbar spine x-ray showed degenerative changes of the spine with grade 1 anterior listhesis of L5 on S1, there was a prior vertebroplasty noted at T12, L2 vertebrae showed 40% loss of height. Patient was admitted to [place] [id number] for compression fracture of L2, IV pain medication will be administered as needed, he will be seen by PT and OT. Pain management will also see the patient. PFSH Medical History Osteoarthritis of left knee Diabetes Bladder disease Dietary restriction Injury of head and neck History of pain when walking Walker as ambulation aid Foot drop, right Arthritis Chronic pain Non-smoker Home Medications ?Medication ?Instructions ?Recorded ?Last Taken ?Type acetaminophen 500 mg tablet 1,000 mg (2 x 500 mg) PO Q8 #0 tabs 09/02/23 12/27/23 Rx calcium carbonate 1,000 mg (5 x 200 mg calcium (500 09/02/23 12/27/23 Rx mg)) PO Q6H PRN PRN DYSPEPSIA #0 tabs furosemide 40 mg tablet 40 mg PO BID 11/18/23 Unknown History ferrous fumarate-folic acid 324 mg 1 tab PO DAILY 12/28/23 12/27/23 History (106 mg iron)-1 mg tablet (Hematinic/Folic Acid) levothyroxine 75 mcg tablet 75 mcg PO DAILY 12/28/23 12/27/23 History Allergy/AdvReac Type Severity Reaction Status Date / Time gabapentin AdvReac Intermediate HALLUCINATI Verified 12/28/23 06:52 ONS Family History Other Multiple sclerosis Surgical History Hx of left cataract extraction Hx of eye surgery Social History Smoking Status: Never smoker ROS Constitutional Constitutional: Denies anorexia, change in weight, chills, fatigue, fever(s), night sweats or weakness Eyes Eyes: Denies blurry vision, change in vision, discharge from eye(s) or eye pain Cardiovascular Cardiovascular: Denies chest pain, claudication, dyspnea on exertion, edema or palpitations Respiratory/Chest Respiratory/Chest: Denies cough, hemoptysis, shortness of breath at rest or shortness of breath with exertion Gastrointestinal Gastrointestinal: Denies abdominal pain, constipation, diarrhea, hematemesis, hematochezia, melena, nausea or vomiting Genitourinary Genitourinary: Denies dysuria, hematuria, urinary frequency, urinary hesitancy, urinary incontinence or urinary urgency Musculoskeletal Musculoskeletal: Reports back pain; Denies joint pain, joint stiffness, joint swelling, myalgias or neck pain Neurologic Neurologic: Denies abnormal gait, abnormal speech, dizziness, focal weakness, headache(s), loss of vision, numbness, other visual disturbances, paresthesias, syncope or tingling Psychiatric Psychiatric: Denies anxiety, cognitive impairment, depression, irritability, mood swings or suicidal ideation Endocrine Endocrinology: Denies change in body appearance, cold intolerance, excessive sweating, heat intolerance, polydipsia or polyuria Hematologic/Lymphatic Hematologic/Lymphatic: Denies none, anemia, easy bleeding, easy bruising or lymphadenopathy Allergic/Immunologic Allergic/Immunologic: Denies rhinitis, urticaria, eczemia or asthma Vital Signs Vital Signs Vital Signs: 12/28/23 06:45 12/28/23 07:36 12/28/23 09:09 Temperature 69.9 F L 97.8 F 96.9 F L Temperature Source Temporal Oral Pulse Rate 91 97 Respiratory Rate 18 16 Respiratory Effort Respiratory Depth Respiratory Pattern Blood Pressure 135/50 H 152/63 H Blood Pressure Mean 78 92 Blood Pressure Source Blood Pressure Position Blood Pressure Location Pulse Ox 96 91 Oxygen Delivery Method Room Air Oxygen Flow Rate (L/min) Fraction of Inspired Oxygen (FIO2) 12/28/23 10:53 12/28/23 12:00 12/28/23 15:52 Temperature 97.6 F L 97.8 F Temperature Source Oral Axillary Pulse Rate 91 102 H Respiratory Rate 18 20 H Respiratory Effort Normal Non-Labored Respiratory Depth Normal Respiratory Pattern Normal Blood Pressure 123/66 H 112/55 L Blood Pressure Mean 85 74 Blood Pressure Source Monitor Monitor Blood Pressure Position Semi-Fowlers Semi-Fowlers Blood Pressure Location Right Forearm Right Forearm Pulse Ox 97 99 Oxygen Delivery Method Nasal Cannula Bi-pap Oxygen Flow Rate (L/min) 3 Fraction of Inspired Oxygen (FIO2) 12/28/23 16:04 12/28/23 16:29 12/28/23 16:29 Temperature Temperature Source Pulse Rate 98 Respiratory Rate 18 Respiratory Effort Respiratory Depth Respiratory Pattern Normal Blood Pressure Blood Pressure Mean Blood Pressure Source Blood Pressure Position Blood Pressure Location Pulse Ox 98 98 Oxygen Delivery Method Bi-pap Oxygen Flow Rate (L/min) 4 Fraction of Inspired Oxygen (FIO2) 40 40 12/28/23 17:12 12/28/23 17:27 12/28/23 18:15 Temperature 97.7 F L 96.7 F L Temperature Source Temporal Temporal Pulse Rate 85 89 89 Respiratory Rate 18 33 H 22 H Respiratory Effort Respiratory Depth Respiratory Pattern Normal Blood Pressure 166/80 H 150/89 H Blood Pressure Mean 108 109 Blood Pressure Source Monitor Monitor Blood Pressure Position Supine Supine Blood Pressure Location Left Forearm Left Arm Pulse Ox 97 100 99 Oxygen Delivery Method Bi-pap Bi-pap Oxygen Flow Rate (L/min) Fraction of Inspired Oxygen (FIO2) 40 40 Weight Weight: 174.8 kg Body Mass Index (BMI) 45.6 Physical Exam Const alert, oriented x3 and no apparent distress Constitutional Narrative: Patient is morbidly obese General Appearance: cooperative, well kempt and well developed Orientation / Consciousness: awake, oriented to person, oriented to place and oriented to time HEENT normocephalic, hearing grossly normal bilaterally and moist oral mucous membranes Eyes PERRL, EOMs intact bilaterally and conjunctivae normal Neck supple, no JVD, thyroid normal and no carotid bruits General: trachea midline Resp normal respiratory effort, no retractions, no use of accessory muscles and clear to auscultation bilaterally Auscultation: Negative for rales, rhonchi or wheezes Cardio regular rate, regular rhythm, S1 normal heart sound, S2 normal heart sound, no murmurs, no rub and no gallops GI normal to inspection, nondistended, normoactive bowel sounds, soft to palpation, non-tender and non-distended Extremity no clubbing, cyanosis or edema Skin no rashes or lesions noted General Skin Exam: no breakdown Neuro oriented x3, CN's II-XII intact bilaterally, moves all extremities, no focal motor deficits and no sensory deficits noted Sensorium / Orientation: awake and alert Speech: speech normal Psych affect normal Results Lab / Micro Data 12/28/23 07:40 12/28/23 07:40 Labs: Laboratory Results - last 24 hr 12/28/23 07:40: WBC 3.5 L, RBC 2.71 L, Hgb 7.8 L, Hct 28.4 L, MCV 104.8 H, MCH 28.8, MCHC 27.5 L, RDW Std Deviation 78.9 H, RDW Coeff of Tan 20.6 H, Plt Count 132 L, MPV 11.0, Immature Gran % (Auto) 0.300, Neut % (Auto) 74.4 H, Lymph % (Auto) 13.5 L, [place] % (Auto) 8.6, Eos % (Auto) 2.6, Baso % (Auto) 0.6, Absolute Neuts (auto) 2.6, Absolute Lymphs (auto) 0.47 L, Nucleated RBC % 0, Anisocytosis 2+, Sodium 143, Potassium 4.5, Chloride 109 H, Carbon Dioxide 32.0, Anion Gap 2 L, BUN 33 H, Creatinine 1.21, Est GFR (MDRD) Af Amer 77, Est GFR (MDRD) Non-Af 64, BUN/Creatinine Ratio 27.3 H, Glucose 120 H, Calcium 8.7, Total Creatine Kinase 95 ABG Data ABG results: ABG 12/28/23 12/28/23 15:37 17:23 Specimen Type ART ART Sample Site L Radial L Radial pH 7.16 L* 7.27 L Bicarbonate Actual 28.6 H 31.8 H Total CO2 31 34 Base Excess 0 5 H O2 Saturation 73 L 98 O2 % 5.0 40.0 ABG pCO2 79.7 H* 69.7 H* ABG pO2 51 L 115 H Star Test Positive Positive Respiration Rate 16 O2 Delivery Device Cannula BiPAP Vent Mode Not entered Not entered Tidal Volume 500.0 POC PEEP 12 Crit Call To/Read Back Yes Yes Blood Gas Notified Whom ROMANA vee Blood Gas Notified Time 15:40:02 17:25:50 Clinical Comments avaps Rhythm Strip Rhythm Strip: Sinus Rhythm Rate: 89 Ectopy: None Imaging Radiology Impression Chest X-Ray 12/28/23 07:26 IMPRESSION: Mild cardiomegaly and vascular congestion and CHF. Limited inspiratory effort. Electronically Signed: Luis Manuel Nelson MD at 8:20 EDT , Lumbar Spine X-Ray 12/28/23 08:00 IMPRESSION: Degenerative changes of the spine, as detailed above. Grade 1 anterolisthesis of L5 on S1 due to spondylolysis of the pars interarticularis of the L5 vertebrae. Prior vertebral plasty of the T12 compression fracture. 40% loss of height of the superior endplate of the L2 vertebrae. Electronically Signed: Luis Manuel Nelson MD at 8:36 EDT , Assessment & Plan Assessment/Plan (1) Compression fracture of L2: PLAN: Plan 1. Acute compression fracture of L4-patient will be placed in observation status on PCU, he will be seen by pain management, he will receive IV pain medications, he will be seen by PT and OT. #2 generalized debility-etiology unclear at this point, he will be seen by PT and OT #3 morbid obesity-complicates care, management, recovery, and prognosis #4 lower leg lymphedema bilaterally with generalized edema-patient will be placed on Lasix in an attempt to diurese him #5 chronic anemia-patient told triage that he gets chronic iron infusions, labs will be monitored, patient takes oral iron supplements #6 hypothyroidism-patient is on Synthroid Total clinical time spent by myself addressing the patient's medical issues, reviewing all of his data, and collaborating with patient's care team: 75 minutes Charges/Coding Visit Charges Inpatient E&M: 29002 Init Hosp L3
--- NOTE | 2023-12-28 19:08 | PCM.HOSP.N ---
Hospitalist Note At approximately 330 this afternoon, nursing was having a difficult time obtaining a pulse ox on the patient, he was alert and responded to questions, I had an arterial blood gas drawn which showed acidosis with CO2 retention and mildly decreased oxygenation. I made the decision at that point to place the patient on BiPAP and transfer the patient to PCU. Blood gas will be obtained later on again, I talked to the patient's by phone and she states she has been worried that the patient has sleep apnea for years, he was scheduled to have a sleep study done but did not follow through on it due to concerns of edema in his legs. She also stated the patient stopped his Lasix he was given by his PCP because he was short of breath. I will place the patient on IV Lasix to obtain the diuresis, patient will be seen by pulmonary medicine, I will get an echocardiogram on the patient tomorrow
--- NOTE | 2023-12-28 19:10 | ECHOCS_ITS ---
Reason For Study: DYSPNEA Procedure This was a 2D Doppler, Color Flow transthoracic echocardiogram. The study was technically difficult. Contrast injection was performed. Patient was scanned in supine position during reflux assessment. Exam performed portable in ICU/CCU. Left Ventricle Normal LV size. Left ventricular systolic function is normal. The left ventricular ejection fraction is 65 %. No regional wall motion abnormalities noted. Right Ventricle Normal RV size. Normal systolic function. Atria Normal left atrium. Mitral Valve Normal mitral valve. Tricuspid Valve Normal tricuspid valve. Aortic Valve Trisinus/trileaflet aortic valve. Pulmonic Valve Normal pulmonic valve. Great Vessels Normal aortic root. The pulmonary artery is normal size. Normal inferior vena cava. Pericardium/Pleural No pericardial effusion. Medication Diluted definity 2ml given slow IV push to enhance endocardial definition. MMode/2D Measurements & Calculations RVDd: 5.1 cm LVOT diam: 2.1 cm Ao root diam: 3.5 cm LVOT area: 3.4 cm2 LAV(MOD-bp): 120.7 ml LVAd ap4: 50.9 cm2 LVAd ap2: 49.3 cm2 LAV(MOD-bp) Indexed: 40.9 ml/m2 LVLd ap4: 10.5 cm LVLd ap2: 10.5 cm LAV(MOD-sp2): 135.9 ml EDV(MOD-sp4): 198.5 ml EDV(MOD-sp2): 194.7 ml LAV(MOD-sp4): 91.8 ml EDV(sp4-el): 209.5 ml EDV(sp2-el): 197.3 ml LVAs ap4: 27.1 cm2 LVAs ap2: 26.9 cm2 LVLs ap4: 8.3 cm LVLs ap2: 8.8 cm ESV(MOD-sp4): 72.5 ml ESV(MOD-sp2): 67.3 ml ESV(sp4-el): 75.1 ml ESV(sp2-el): 70.2 ml EF(MOD-sp4): 63.5 % EF(MOD-sp2): 65.4 % EF(sp4-el): 64.1 % SV(MOD-sp4): 126.0 ml SV(MOD-sp2): 127.4 ml SV(sp4-el): 134.4 ml LA A4 area: 29.1 cm2 LA dimension(2D): 5.1 cm RA A4 area: 15.5 cm2 TAPSE: 2.7 cm Doppler Measurements & Calculations Lat Peak E' Rogelio: 13.5 cm/sec Med Peak E' Rogelio: 11.9 cm/sec MV V2 max: 188.2 cm/sec MV max P.2 mmHg MV V2 mean: 133.3 cm/sec MV mean P.5 mmHg MV V2 VTI: 47.7 cm MVA(VTI): 1.9 cm2 Ao V2 max: 208.0 cm/sec LV V1 max: 114.5 cm/sec SV(LVOT): 88.6 ml Ao max P.3 mmHg LV V1 max P.2 mmHg Ao V2 mean: 148.9 cm/sec LV V1 mean P.6 mmHg Ao mean P.9 mmHg LV V1 mean: 94.0 cm/sec Ao V2 VTI: 43.6 cm LV V1 VTI: 25.8 cm AV (velocity ratio): 0.59 PINEDA(I,D): 2.0 cm2 PINEDA(V,D): 1.9 cm2 PA V2 max: 120.4 cm/sec PA max PG (full): 0.78 mmHg ECHO/Echo Complete W/ Contrast Interpretation Summary Normal LV size. Left ventricular systolic function is normal. The left ventricular ejection fraction is 65 %. Contrast injection was performed. Ordering Physician: Haroldo Ruiz Referring Physician: Angelic Monsalve M.D. Performed By: Helen Dawson RDCS
[2023-12-28 19:37] LABS: Allen Test Positive; Base Excess 4 mmol/L (-2 to +2); Bicarbonate 31.8 mmol/L (22-26); Blood Gas Specimen Type ART; Comment AVAPS. 500 16 RR 40%; Mode Not entered; O2 Delivery Device BiPAP; PO2 104 mmHG (75-100); SITE L Radial; SO2 96 % (95-99); Time Given 19:33:48; Total Carbon Dioxide 34 mmol/L; pCO2 77.4 mmHg (35-45); pH 7.22 (7.35-7.45)
[2023-12-28] MEDS: Naloxone 0.4 MG/ML Syringe 0.2 MG IV (19:51)
--- NOTE | 2023-12-28 20:05 | CPS ---
RN entered room with me, RT, and we witnessed apnea with pt. We tried to arouse pt, pt slow to come around, then was very confused. ABG drawn and Fowler was called and made aware of situation. ABG RESULTS called to DR Fowler.
[2023-12-28] MEDS: Furosemide 100 MG/10 ML Vial 60 MG IV (20:14)
--- NOTE | 2023-12-28 20:15 | NURSING ---
pt bed alarm going off, sitting on side of bed when this RN went into room. got pt back into bed, dr muñoz present, gave 0.2 narcan iv and orders to tx to ICU. updated via phone.
--- NOTE | 2023-12-28 20:20 | PN.HOSP_ITS ---
[facility] Note [facility] difficulty on BiPAP with decreased respiratory drive after receiving IV Dilaudid earlier in the day. He is morbidly obese with pickwickian syndrome phenotype and had minimal chest rise and was initially not breathing over the BiPAP at a rate of 16 bpm. He was then urgently treated with 0.2 mg of IV Narcan with immediate improvement in his mental status and normalization of his respirations. His ABG is listed below and showed a drop in his pH from 7.27 earlier to 7.22 now with a pCO2 of 77.4 with repeat ABG pending at this time. Dilaudid has been added to his list of allergies and caution should be taken in the future to avoid opioid analgesics if at all possible as he likely has severe obstructive sleep apnea that is exacerbated by these agents. DIALYSIS EQUIPMENT TECHNICIAN was updated with plan. Repeat ABG shows pH 7.4 with PCO2 of 49 and patient mentating and breathing normally. He has only urinated ~200 cc after 60 mg IV Lasix recommended by the [facility] hospitalist with CXR showing no signs of volume overload. BNP could not be obtained because machine is apparently down at this time. We will give Albumin 25g IV once with blood pressure decreasing to ~100 mmHg systolic. RUN DATE: 12/28/23 [facility], DEPARTMENT OF LABORATORIES PAGE 1 RUN TIME: 2018 [address]imen In[address], [place], [address] PATIENT: JEFFREY CONNORS Jr. LOC: ICU U #: [id number] : 1960 AGE/SX: 63/M FACILITY: [facility] ROOM: ICU05 RE12/28/[address]: Dr. Haroldo Ruiz, DO STATUS:ADM CHELSEY ED: 1 DIS: ~ SPEC #: [id number] ELPIDIO: 12/28/23 STATUS: COMP REQ #: [id number] RECD: 12/28/[address]: Dr. Haroldo Ruiz, DO ENTERED: 12/28/[address] [facility] [address]: MD Dr. Abhi Moss MD Dr. Amy S Jolliff, MD Dr. Adan Mora, MD Dr. Derek Brown, MD Dr. Juliocesar Fountain Dr., MD Dr. Yordanos Habtegebriel, MD Dr. Hemant Dand, MD Dr. Jose Ochoa, MD Dr. Kimber Foust, MD Dr. Lamia Aljundi, MD Dr. Pritam Ghosh, MD Dr. Pavan Irukulla, MD Dr. Saad Farooqi, MD Dr. Vikram Anand, MD Dr. William Haden, MD ~ Test Result Flag Adult Reference Range IBG Blood Gas Type ART SITE L Radial CAROLYN TEST Positive Mode Not entered O2 Delivery Dev BiPAP FI02 40.0 Time Given 19:33:48 Results To Fowler Read Back By Yes Comment AVAPS. 500 16 RR 40% pH 7.22 L 7.35-7.45 pCO2 77.4 *H 35-45 mmHg PO2 104 H 75-100 mmHG HCO3 31.8 H 22-26 mmol/L BE 4 H -2 to +2 mmol/L TOTAL CO2 34 mmol/L SO2 96 95-99 % RUN DATE: 12/28/23 [facility], DEPARTMENT OF LABORATORIES PAGE 1 RUN TIME: 2141 Specimen Inquiry [address] [place], [place], [id number] PATIENT: JEFFREY CONNORS Jr. LOC: ICU U #: [id number] : 1960 AGE/SX: 63/M FACILITY: [facility] ROOM: ICU05 RE12/28/[address]: Dr. Haroldo Ruiz, DO STATUS:ADM CHELSEY ED: 1 DIS: ~ SPEC #: [id number] ELPIDIO: 12/28/23 STATUS: COMP REQ #: [id number] RECD: 12/28/[address]: Dr. Haroldo Ruiz, DO ENTERED: 12/28/23-[address]: Dr. Ayman Basali, MD Dr. Abhi Jenise, MD Dr. Angelic S Jolliff, MD Dr. Santhosh Romano, MD Dr. Alexis Brown, DO Dr. Edward Matheis, MD Dr. Juliocesar Milagros, MD Dr. Jeimy HabMD Dr. Hosea colin MD Dr. Jose Ochoa, MD Dr. Kimber Foust, MD Dr. Lamia Aljundi, MD Dr. Pritam Ghosh, MD Dr. Pavan Irukulla, MD Dr. Saad Farooqi, MD Dr. Vikram Anand, MD Dr. William Haden, MD ~ Test Result Flag Adult Reference Range IBG Blood Gas Type ART SITE R Radial CAROLYN TEST Positive Mode Not entered O2 Delivery Dev AVAPS Vt 500.0 mL RR 18 FI02 30.0 PEEP 12 Comment Max PS 28/Min PS 18 pH 7.40 7.35-7.45 pCO2 49.1 H 35-45 mmHg PO2 94 75-100 mmHG HCO3 30.1 H 22-26 mmol/L BE 5 H -2 to +2 mmol/L TOTAL CO2 32 mmol/L SO2 97 95-99 % [facility] Imaging Services [address] [place] [address] Chest 1 View (Portable) MR#: [id number] Acct: [id number] Name: JEFFREY CONNORS Rep #: [id number] : 1960 M 63 From: Lana Gutierrez MD PCP: Dr. Angelic Monsalve MD Status: ADM CHELSEY Study: Chest 1 View (Portable) Date of Exam: 12/28/23 Exam# [id number] Ordering Dr: Michelet Fowler DO INDICATION: Shortness of Breath EXAMINATION/TECHNIQUE: X-RAY - XR Chest 1 View AP portable. 9:48 PM COMPARISON: 12/28/2023 FINDINGS: LINES/DEVICES: None. LUNGS: Subsegmental atelectasis in the left midlung. No consolidation. No pneumothorax. MEDIASTINUM: Unremarkable. CARDIAC SILHOUETTE: Not enlarged. BONES AND SOFT TISSUES: No acute abnormalities. RAD/Chest 1 View (Portable) IMPRESSION: Left midlung atelectasis. Electronically Signed: Lana Gutierrez MD at 23:10 EDT , CC: Dr. Angelic Monsalve MD; Dr. Michelet Fowler DO ~ Mine Environmental Engineer: Signed
[2023-12-28 20:52] LABS: Allen Test Positive; Base Excess 5 mmol/L (-2 to +2); Bicarbonate 30.1 mmol/L (22-26); Blood Gas Specimen Type ART; Comment Max PS 28/Min PS 18; Mode Not entered; O2 Delivery Device AVAPS; PEEP 12; PO2 94 mmHG (75-100); RR 18; SITE R Radial; SO2 97 % (95-99); Total Carbon Dioxide 32 mmol/L; pCO2 49.1 mmHg (35-45)
[2023-12-28 21:14] LABS: BNP,B-Type NATRIURETIC PEPTIDE 237.2 pg/mL (0-100)
--- NOTE | 2023-12-28 22:55 | RAD_ITS ---
INDICATION: Shortness of Breath EXAMINATION/TECHNIQUE: X-RAY - XR Chest 1 View AP portable. 9:48 PM COMPARISON: 12/28/2023 FINDINGS: LINES/DEVICES: None. LUNGS: Subsegmental atelectasis in the left midlung. No consolidation. No pneumothorax. MEDIASTINUM: Unremarkable. CARDIAC SILHOUETTE: Not enlarged. BONES AND SOFT TISSUES: No acute abnormalities. RAD/Chest 1 View (Portable) IMPRESSION: Left midlung atelectasis. Electronically Signed: Lana Gutierrez MD at 23:10 EDT ,
[2023-12-28] MEDS: Acetaminophen 500 MG Tablet 1000 MG PO (23:14)
[2023-12-29] VITALS (15 sets, daily range): BP systolic 109–157; BP diastolic 57–95; PULSE 74–96; RESP 16–24; TEMP 36.2–36.7; O2SAT 92–100; BMI 45.6
[2023-12-29] MEDS: Albumin Human 25% (100 mL) 25 GM/100 ML BAG IV (04:38)
[2023-12-29] MEDS: Levothyroxine 50 MCG Tablet PO (06:06)
[2023-12-29] MEDS: Acetaminophen 500 MG Tablet 1000 MG PO ×3 (06:06→21:22)
--- NOTE | 2023-12-29 07:01 | CON.PCM.CC_ITS ---
Assessment & Plan Assessment/Plan (1) Acute hypercapnic respiratory failure: PLAN: Plan RECOMMENDATIONS: 1. Continue PAP therapy with naps and nightly. 2. Avoid narcotic administration. 3. Anemia workup and management per hospitalist. 4. Recommend outpatient polysomnogram and follow-up with Dr. Velazquez, as previously planned. 5. Ongoing diuresis as tolerated by hemodynamics and renal function. 6. Encourage incentive spirometer use and mobilize patient as tolerated. 7. The patient has no active ICU needs. Will sign off from a critical care perspective. Please call with any questions. IMPRESSIONS: 1. Acute combined respiratory failure Appears to be secondary to a combination of narcotic administration in a patient at high risk for underlying obstructive sleep apnea and alveolar hypoventilation secondary to morbid obesity. In addition, the patient appears to have a component of cardiomegaly and pulmonary vascular congestion, suggestive of congestive heart failure. With PAP therapy and administration of Narcan, the patient has stabilized. I do suspect that his residual oxygen requirement is likely secondary to underlying atelectasis and hypervolemia. Recommend ongoing diuresis as tolerated by hemodynamics and renal function. I would provide the patient with an incentive spirometer and encourage its use. Otherwise, I would avoid further narcotic administration. The patient was previously referred to the office of Dr. Velazquez to undergo a sleep apnea evaluation. However, he never followed through. Ultimately, the patient needs to complete a diagnostic polysomnogram on an outpatient basis in order to get set up with PAP therapy. While admitted to the hospital, we will continue to provide the patient with PAP therapy with naps and nightly. I have no additional recommendations. 2. Generalized deconditioning in the setting of morbid obesity/chronic anemia/hypothyroidism Complicates care, management, recovery and prognosis. Continue home medications as indicated. This note was generated with [employer] software. It may contain incorrect words, spelling, and punctuation that were not noted in checking the note before signing. HPI Consult Data Date of Consult: 12/29/23 HPI Narrative Reason for Consultation: Sleep apnea, hypercapnia HPI Narrative: The patient is a 63-year-old male, with a history as outlined below, who presented to the emergency department via EMS on December 27 with generalized weakness after sustaining a fall at home. The patient is being worked up for anemia on an outpatient basis. In addition, the patient reported that his PCP reported a high index of suspicion for underlying sleep apnea. Therefore, the patient was referred to the office of Dr. Velazquez to undergo a sleep apnea workup. However, the patient never followed up, stating that he felt that his anemia issues needed to be addressed first. The patient is a non-smoker and has never been diagnosed with COPD or asthma. He does not utilize supplemental oxygen at his baseline. On presentation to the emergency department, the patient was documented to be afebrile and hemodynamically stable. He was maintaining appropriate oxygen saturations on room air. Laboratory evaluation revealed a hemoglobin of 7.8 g/dL. Platelet count was low at 132,000. Chemistry profile was unremarkable revealing. BNP was mildly elevated at 237. Initial chest x-ray demonstrated cardiomegaly and pulmonary vascular congestion. Lumbar spine x-ray demonstrated chronic findings including prior T12 compression fracture. The patient was apparently admitted to the hospital to be seen by pain management on account of his chronic degenerative disc disease. According to hospitalist documentation, an ABG was obtained on the afternoon of December 27, which demonstrated a pH of 7.16 with a pCO2 of 80 and pO2 of 51. It should be noted that the patient had been receiving narcotic pain medications as well. He was subsequently placed on PAP therapy with improvement in his acid- base status. Then, overnight, the patient was transferred to the ICU, again over concerns for his respiratory status in the setting of narcotic administration. The patient did receive Narcan with subsequent improvement in his mentation. For reasons that are completely unclear to me, the patient also was also given albumin. This morning, the patient is clinically stable, mentating appropriately and has no active ICU needs. PFSH Medical History Osteoarthritis of left knee Diabetes Bladder disease Dietary restriction Injury of head and neck History of pain when walking Walker as ambulation aid Foot drop, right Arthritis Chronic pain Non-smoker Home Medications ?Medication ?Instructions ?Recorded ?Last Taken ?Type acetaminophen 500 mg tablet 1,000 mg (2 x 500 mg) PO Q8 #0 tabs 09/02/23 12/27/23 Rx calcium carbonate 1,000 mg (5 x 200 mg calcium (500 09/02/23 12/27/23 Rx mg)) PO Q6H PRN PRN DYSPEPSIA #0 tabs furosemide 40 mg tablet 40 mg PO BID 11/18/23 Unknown History ferrous fumarate-folic acid 324 mg 1 tab PO DAILY 12/28/23 12/27/23 History (106 mg iron)-1 mg tablet (Hematinic/Folic Acid) levothyroxine 75 mcg tablet 75 mcg PO DAILY 12/28/23 12/27/23 History Allergy/AdvReac Type Severity Reaction Status Date / Time gabapentin AdvReac Intermediate HALLUCINATI Verified 12/28/23 06:52 ONS Family History Other Multiple sclerosis Surgical History Hx of left cataract extraction Hx of eye surgery Social History Smoking Status: Never smoker ROS ROS Narrative 10 systems were reviewed with pertinent positives as noted in the HPI above. Physical Exam Const alert and no apparent distress General Appearance: cooperative HEENT normocephalic, head/scalp atraumatic and moist oral mucous membranes Eyes PERRL, EOMs intact bilaterally and conjunctivae normal Neck supple Neck Narrative: Large neck circumference with redundant soft tissue. General: trachea midline Chest inspection of chest normal Resp normal respiratory effort Auscultation: diminished lung sounds; Negative for rales, rhonchi or wheezes Cardio regular rate and regular rhythm GI normal to inspection, nondistended, normoactive bowel sounds Extremity General Extremity: edema; Negative for clubbing Skin no rashes or lesions noted Neuro CN's II-XII intact bilaterally, moves all extremities and no focal motor deficits Psych cooperative and affect normal Lab / Micro Data 12/28/23 07:40 12/28/23 07:40 Labs: Laboratory Results - last 24 hr 12/28/23 07:40: WBC 3.5 L, RBC 2.71 L, Hgb 7.8 L, Hct 28.4 L, MCV 104.8 H, MCH 28.8, MCHC 27.5 L, RDW Std Deviation 78.9 H, RDW Coeff of Tan 20.6 H, Plt Count 132 L, MPV 11.0, Immature Gran % (Auto) 0.300, Neut % (Auto) 74.4 H, Lymph % (Auto) 13.5 L, [place] % (Auto) 8.6, Eos % (Auto) 2.6, Baso % (Auto) 0.6, Absolute Neuts (auto) 2.6, Absolute Lymphs (auto) 0.47 L, Nucleated RBC % 0, Anisocytosis 2+, Sodium 143, Potassium 4.5, Chloride 109 H, Carbon Dioxide 32.0, Anion Gap 2 L, BUN 33 H, Creatinine 1.21, Est GFR (MDRD) Af Amer 77, Est GFR (MDRD) Non-Af 64, BUN/Creatinine Ratio 27.3 H, Glucose 120 H, Calcium 8.7, Total Creatine Kinase 95, B-Natriuretic Peptide 237.2 H ABG Data ABG results: ABG 12/28/23 12/28/23 12/28/23 15:37 17:23 19:32 Specimen Type ART ART ART Sample Site L Radial L Radial L Radial pH 7.16 L* 7.27 L 7.22 L Bicarbonate Actual 28.6 H 31.8 H 31.8 H Total CO2 31 34 34 Base Excess 0 5 H 4 H O2 Saturation 73 L 98 96 O2 % 5.0 40.0 40.0 ABG pCO2 79.7 H* 69.7 H* 77.4 H* ABG pO2 51 L 115 H 104 H Star Test Positive Positive Positive Respiration Rate 16 O2 Delivery Device Cannula BiPAP BiPAP Vent Mode Not entered Not entered Not entered Tidal Volume 500.0 POC PEEP 12 Crit Call To/Read Back Yes Yes Yes Blood Gas Notified Whom ROMANA Fowler Blood Gas Notified Time 15:40:02 17:25:50 19:33:48 Clinical Comments avaps AVAPS. 500 16 RR 40% 12/28/23 20:47 Specimen Type ART Sample Site R Radial pH 7.40 Bicarbonate Actual 30.1 H Total CO2 32 Base Excess 5 H O2 Saturation 97 O2 % 30.0 ABG pCO2 49.1 H ABG pO2 94 Star Test Positive Respiration Rate 18 O2 Delivery Device AVAPS Vent Mode Not entered Tidal Volume 500.0 POC PEEP 12 Crit Call To/Read Back Blood Gas Notified Whom Blood Gas Notified Time Clinical Comments Max PS 28/Min PS 18 Rhythm Strip Rhythm Strip: Sinus Rhythm Rate: 89 Ectopy: None Imaging Radiology Impression Chest X-Ray 12/28/23 07:26 IMPRESSION: Mild cardiomegaly and vascular congestion and CHF. Limited inspiratory effort. Electronically Signed: Luis Manuel Nelson MD at 8:20 EDT , Lumbar Spine X-Ray 12/28/23 08:00 IMPRESSION: Degenerative changes of the spine, as detailed above. Grade 1 anterolisthesis of L5 on S1 due to spondylolysis of the pars interarticularis of the L5 vertebrae. Prior vertebral plasty of the T12 compression fracture. 40% loss of height of the superior endplate of the L2 vertebrae. Electronically Signed: Luis Manuel Nelson MD at 8:36 EDT , Chest X-Ray 12/28/23 22:55 IMPRESSION: Left midlung atelectasis. Electronically Signed: Lana Gutierrez MD at 23:10 EDT , Charges/Coding Visit Charges Inpatient E&M: 78600 Init Hosp L3
[2023-12-29 07:16] LABS: Absolute Lymphocyte Count 0.45 X10^3/uL (0.83-4.51); Absolute Neutrophil Count 3.1 X10^3/uL (2.0-7.7); Basophil# 0.01 X10^3/uL; Basophil% 0.3 % (0-1); Eosinophil# 0.04 X10^3/uL; Hematocrit 25.9 % (40-54); Hemoglobin 7.3 g/dL (13.0-16.5); Lymphocyte # 0.45 X10^3/ul (0.83-4.51); Lymphocyte % 11.4 % (19-41); Mean Corp Hgb Conc 28.2 g/dL (32-36); Mean Corpuscular Hgb 29.8 pg (27.0-32.0); Mean Corpuscular Volume 105.7 fL (80-94); Mean Platelet Vol. 10.7 fl (6.2-12.0); Monocyte# 0.35 X10^3/uL; Monocyte% 8.8 % (0-10); NRBC Flagged by Analyzer 0 % (0-5); Neutrophil % 78.2 % (47-70); POSITIVE DIFFERENTIAL YES; POSITIVE MORPHOLOGY YES; Platelet Count 116 K/mm3 (150-450); RBC Distribution Width CV 20.4 % (11.6-14.6); Red Blood Count 2.45 M/mm3 (4.6-6.2)
[2023-12-29 07:45] LABS: ALB/GLOB Ratio 0.9 RATIO (0.9-2.4); AST(SGOT) 15 U/L (15-37); Alanine Aminotransfer ALT/SGPT 12 U/L (16-61); Alkaline Phosphatase 81 U/L (45-117); Anion Gap 1 (5-15); BUN 37 mg/dL (7-18); Calcium,Total 8.3 mg/dL (8.5-10.1); Chloride 110 mmol/L (98-107); Creatinine, Serum 1.48 mg/dL (0.70-1.30); EST Glomerular Filtration Rate 51 mL/min (>60); Est Glom Filt Rate - Afr Amer 61 mL/min (>60); Globulin 3.4 g/dL (2.2-4.2); Glucose 122 mg/dL (74-106); Potassium 4.5 mmol/L (3.5-5.1); Protein, Total 6.4 g/dL (6.4-8.2); Sodium Level 142 mmol/L (136-145)
[2023-12-29 07:48] LABS: Differential Indicated SCAN CRITERIA MET
[2023-12-29 07:53] LABS: Magnesium 2.4 mg/dL (1.6-2.6); Phosphorus 4.4 mg/dL (2.5-4.9)
[2023-12-29] MEDS: Heparin Injection (Vial) 5,000 UNIT/ML VIAL 5000 UNIT SC ×2 (08:52→21:23)
[2023-12-29 09:07] LABS: Anisocytosis 3+
--- NOTE | 2023-12-29 10:08 | CASEMGMT ---
DEREK ZAMBRANO Assessment Face to Face with patient for initial transition planning/care coordination assessment. DEREK ZAMBRANO introduced self and role at [facility], pt voices understanding. Pt is A&Ox4 and is resting comfortably in bed and is calm. Care providers, pharmacy, and demographics verified. Admitting dx: Compression Fracture L2, Debility LACE Strata: 2 PCP: Angelic Monsalve Specialists: Dr. Luz (Ortho), Dr. Orozco (GI) Preferred Pharmacy: [facility] Insurance: O [facility] Prescription Benefit: Yes LNOK: Danielle Yue (W) Living Arrangements: Pt lives with his in a split level home and 1 step to enter. There are 6 steps to manage in between floors ADLs/IADLs: Ind with ADLs. helps with IADLs Transportation: DME: Pt is currently on additional oxygen. A verbal list of local in-network DME companies provided to the pt at this time. Pt prefers [employer] if he qualifies for home oxygen. Pt also reports that he has a FWW, BSC, Raised toilet seat with GB, and BP Cuff. Pt was set up with a Hospital Bed after his previous admission. Pt states that he was not satisfied with this and retuned it. Pt states that he plans to buy another bed per himself and pay OOP. HHC/SNF: Denies HH and SNF history or needs at this time. Pt states that he is active with OP therapy through [facility] 3x/week Pt?s goal: Return to PLOF and return to OP Tx Plan: TBD. 6-click score is 13. PT is recommending skilled therapy after DC for the pt to return to PLOF. Pt states that he is not interested in HHC or SNF placement. Pt states that his goal is to return home and continue OP Tx through [facility]. Pt educated that CM and SW will follow the pt progression in the hospital to decipher the safest DC plan moving forward. Pt states understanding. Re Alex RN, CM
--- NOTE | 2023-12-29 11:28 | CASEMGMT ---
Met with patient to complete [place] form. [place] form explained to patient who voiced understanding and signed form. Original form placed in pt?s chart and copy provided to patient. Maribell Sanders, Discharge Planning Asst
--- NOTE | 2023-12-29 12:02 | PCM.PN.HOSP ---
Reason for Visit Reason for Visit: Diagnoses Acute respiratory failure with hypercapnia (12/28/23) Wedge compression fracture of second lumbar vertebra, initial encounter for closed fracture (12/28/23) Subjective Subjective Patient was seen and examined today, he was transferred into the ICU overnight due to increasing respiratory embarrassment, patient appears to be stable at this time, he is on 4 L of oxygen and he is alert and oriented x 3. I had pulmonary medicine see him in consultation, it appears likely the patient has obstructive sleep apnea which has not yet been diagnosed, unfortunately he will not be able to go home with BiPAP or CPAP until a sleep study was performed. Patient denies any current back pain to this examiner, I am unsure whether his compression fracture at L2 is chronic or new. I talked briefly with pain management about his care. Objective Data Objective Data Vital Signs: Vital Signs Temp Pulse Resp BP Pulse Ox O2 Del Method O2 Flow Rate 98.0 F 86 18 136/57 H 93 Nasal Cannula 2 12/29/23 10:30 12/29/23 10:30 12/29/23 10:30 12/29/23 10:30 12/29/23 10:30 12/29/23 10:30 12/29/23 10:30 FiO2 30 12/29/23 05:00 Oxygen Flow Rate (L/min) 2 Oxygen Delivery Method Nasal Cannula Weight: 174.3 kg Body Mass Index (BMI) 45.6 Intake & Output: Intake and Output for Last 24 Hours 12/27/23 12/28/23 12/29/23 23:59 23:59 23:59 Intake Total 0 / 0 450 / 450 Output Total 400 / 1300 900 / 900 Balance -400 / -1300 -450 / -450 Lab / Micro Data 12/29/23 07:03 12/29/23 07:03 Labs: Laboratory Results - last 24 hr 12/28/23 07:40: B-Natriuretic Peptide 237.2 H 12/29/23 07:03: WBC 4.0 L, RBC 2.45 L, Hgb 7.3 L, Hct 25.9 L, MCV 105.7 H, MCH 29.8, MCHC 28.2 L, RDW Std Deviation 79.0 H, RDW Coeff of Tan 20.4 H, Plt Count 116 L, MPV 10.7, Immature Gran % (Auto) 0.300, Neut % (Auto) 78.2 H, Lymph % (Auto) 11.4 L, [place] % (Auto) 8.8, Eos % (Auto) 1.0, Baso % (Auto) 0.3, Absolute Neuts (auto) 3.1, Absolute Lymphs (auto) 0.45 L, Nucleated RBC % 0, Anisocytosis 3+, Sodium 142, Potassium 4.5, Chloride 110 H, Carbon Dioxide 31.0, Anion Gap 1 L, BUN 37 H, Creatinine 1.48 H, Estim Creat Clear Calc 86.70, Est GFR (MDRD) Af Amer 61, Est GFR (MDRD) Non-Af 51 L, BUN/Creatinine Ratio 25.0 H, Glucose 122 H, Calcium 8.3 L, Phosphorus 4.4, Magnesium 2.4, Total Bilirubin 0.60, AST 15, ALT 12 L, Alkaline Phosphatase 81, Total Protein 6.4, Albumin 3.0 L, Globulin 3.4, Albumin/Globulin Ratio 0.9 ABG Data ABG results: ABG 12/28/23 12/28/23 12/28/23 15:37 17:23 19:32 Specimen Type ART ART ART Sample Site L Radial L Radial L Radial pH 7.16 L* 7.27 L 7.22 L Bicarbonate Actual 28.6 H 31.8 H 31.8 H Total CO2 31 34 34 Base Excess 0 5 H 4 H O2 Saturation 73 L 98 96 O2 % 5.0 40.0 40.0 ABG pCO2 79.7 H* 69.7 H* 77.4 H* ABG pO2 51 L 115 H 104 H Star Test Positive Positive Positive Respiration Rate 16 O2 Delivery Device Cannula BiPAP BiPAP Vent Mode Not entered Not entered Not entered Tidal Volume 500.0 POC PEEP 12 Crit Call To/Read Back Yes Yes Yes Blood Gas Notified Whom ROMANA Fowler Blood Gas Notified Time 15:40:02 17:25:50 19:33:48 Clinical Comments avaps AVAPS. 500 16 RR 40% 12/28/23 20:47 Specimen Type ART Sample Site R Radial pH 7.40 Bicarbonate Actual 30.1 H Total CO2 32 Base Excess 5 H O2 Saturation 97 O2 % 30.0 ABG pCO2 49.1 H ABG pO2 94 Star Test Positive Respiration Rate 18 O2 Delivery Device AVAPS Vent Mode Not entered Tidal Volume 500.0 POC PEEP 12 Crit Call To/Read Back Blood Gas Notified Whom Blood Gas Notified Time Clinical Comments Max PS 28/Min PS 18 Radiography Diagnostic Testing: Radiology Impression Echocardiogram 12/28/23 19:10 Interpretation Summary Normal LV size. Left ventricular systolic function is normal. The left ventricular ejection fraction is 65 %. Contrast injection was performed. Ordering Physician: Haroldo Ruiz Referring Physician: Angelic Monsalve M.D. Performed By: Helen Dawson RDCS Chest X-Ray 12/28/23 22:55 IMPRESSION: Left midlung atelectasis. Electronically Signed: Lana Gutierrez MD at 23:10 EDT Reading Location ID and State: [facility] / [place] Tel , Service support , Rhythm Strip Rhythm Strip: Sinus Rhythm Rate: 89 Ectopy: None Physical Exam Const alert, oriented x3 and no apparent distress Constitutional Narrative: Patient has morbid obesity General Appearance: cooperative, well kempt and well developed Orientation / Consciousness: awake, oriented to person, oriented to place and oriented to time HEENT normocephalic, head/scalp atraumatic and moist oral mucous membranes Eyes PERRL, EOMs intact bilaterally and conjunctivae normal Neck supple, no JVD, thyroid normal and no carotid bruits General: trachea midline Resp normal respiratory effort, no retractions, no use of accessory muscles and clear to auscultation bilaterally Auscultation: Negative for rales, rhonchi or wheezes Cardio regular rate, regular rhythm, S1 normal heart sound, S2 normal heart sound, no murmurs, no rub and no gallops GI normal to inspection, nondistended, normoactive bowel sounds, soft to palpation, non-tender and non-distended Extremity Extremity Narrative: There is marked lymphedema changes to his lower legs bilaterally along with generalized edema. Skin no rashes or lesions noted General Skin Exam: no breakdown Neuro oriented x3, CN's II-XII intact bilaterally, moves all extremities, no focal motor deficits and no sensory deficits noted Sensorium / Orientation: awake and alert Speech: speech normal Psych affect normal Assessment & Plan Assessment/Plan (1) Compression fracture of L2: PLAN: Plan 1. Acute combined respiratory failure-this was secondary to a combination of narcotic administration, underlying obstructive sleep apnea and hypoventilation from morbid obesity. Patient will remain on supplemental oxygen, pulse ox will be monitored and attempt to wean the oxygen will be undertaken. #2 L2 compression fracture-possibly new, pain management will see the patient, it is possible he may need an MRI to confirm this is a new compression fracture. #3 likely obstructive sleep apnea-complicates care, management, recovery, and prognosis, patient had an appointment with Dr. Velazquez as an outpatient but did not keep the appointment. He will need to follow-up with him after discharge from the hospital #4 acute debility secondary to morbid obesity, likely obstructive sleep apnea, and prior history of compression fracture of the thoracic spine-PT and OT are seeing patient #5 lower leg lymphedema with concurrent severe edema-again patient will remain on IV Lasix #6 chronic anemia-patient gets outpatient iron infusions, he is due to see Dr. Drake for consultation as an outpatient. #7 hypothyroidism-patient is on Synthroid #8 morbid obesity-complicates care, management, recovery, and prognosis Total clinical time spent by myself addressing the patient's medical issues, reviewing all of his data, and collaborating with patient's care team: 35 minutes Charges/Coding Visit Charges Inpatient E&M: 62043 Subs Hosp L2
[2023-12-29] MEDS: Furosemide 40 MG/4 ML Vial IV ×2 (13:00→21:23)
[2023-12-29] MEDS: 0.9% Saline Lock 10 ML Syringe IV (13:00)
--- NOTE | 2023-12-29 14:38 | CASEMGMT ---
SW met with patient. Introduced self and role at [facility]. Patient said his transports him. Patient said it is difficult to get in and out of the car. SW provided patient with information on [place]. Patient currently did not have concerns with food or utilities. However, patient said he will soon be losing his Worker's Comp. Once he loses that money he may have issues with food and utilities. Patient said he lost his Medicaid when he started getting Worker's Comp. Once patient's Worker's Comp ends he will re-apply for Medicaid. SW did provide patient with information on food pantries, [employer], and churches that provide meals. SW also asked patient about his discharge plan. Patient stated he cannot go home as he will end up right back in the hospital. Patient said he needs to go to TCU and build up his strength. SW told patient SW will make a referral to TCU. SW made a referral to Kaitlin in TCU. Marlene Naidu [employer]
[2023-12-29] MEDS: Potassium Chloride Oral Tablet 20 MEQ PO (16:44)
--- NOTE | 2023-12-29 20:16 | CON.PCM_ITS ---
Assessment & Plan Assessment/Plan (1) Compression fracture of L2: PLAN: Plan L2 compression fracture- Per discussion with the patient and examination it appears his pain has been improving. Has prior T12 compression fracture s/p kyphoplasty. Discussed conservative vs aggressive treatment options for compression fractures should the pain worsen and the fracture prove to be acute. Unclear how much of his recent pain was related to chronic back pain vs fracture pain. At this time he notes minimal pain, so will hold off on aggressive interventional treatment. He indicates that his current weakness int he lower extremities and altered sensation is baseline since his injury several years ago and has not changed. He does have some thigh pains, but this may be related to muscular issues with PT/deconditioning in the setting of his prior issues. Denies any new red flag symptoms. -Unclear acuity. XR demonstrates L2 fracture, prior xr from 2019 did not show this. -MRI would be modality to evaluate acuity. He is still on oxygen and being worked up for GLENN. Would recommend MRI if pain worsens or new neurologic findings emerge. - it is possible he may need an MRI to confirm this is a new compression fracture. -He has been taking tylenol 1000mg TID with some benefit. -PRN toradol is ordered, he has not been using due to limited pain today. -Avoid narcotics in the setting of recent hypercarbia, AMS and hypoxia. -Notes he has had some spasms, but those have improved as well. Would recommend considering adding this should he develop spasms again, although consideration should be made for sedative properties of muscle relaxants. Perhaps low dose baclofen. Again, he states he does not have significant pain today, so will hold off on medication. -Can follow up as outpatient after dispo from TCU. HPI Consult Data Date of Consult: 12/29/23 HPI Narrative Reason for Consultation: Compression fracture/back pain HPI Narrative: JEFFREY CONNORS, is a 63 M who presents to the emergency department via EMS on December 27 with generalized weakness after sustaining a fall at home. He is being worked up for anemia and respiratory issues. I am consulted for evaluation of back pain in the setting of prior T12 kyphoplasty and xray findings of 40% compression fracture of L2. Of note, he states he has pmh of prior back injury requiring surgical repair. He states this was 4 years ago and has residual weakness in the lower extremities (particularly right L5 neuropathy) along with reduced sensation in the right lower extremity. He notes that he was given IV opioid in ED and is afraid it worsened his pulmonary issues. He was recently in the ICU briefly for treatment due to CO2 retention and hypoxia. He is now back on PCU on 3L NC. Mentation is ok. Lumbar spine x-ray demonstrated chronic findings including prior T12 compression fracture. The patient was apparently admitted to the hospital to be seen by pain management on account of his chronic degenerative disc disease. He states he has had intermittent back pain, but recently upon admission the pain has not been too significant. He has been mostly in bed, but was up with PT today and notes relatively minimal pain in the low back. He states he previously had injections a few years ago with Dr. Snowden after his prior aforementioned injury with little benefit and was lost to follow up. He says the kyphoplasty at [facility] (T12) helped with that pain at that time. He is currently taking tylenol and had 1 dose of toradol. Again he states his pain has not been that significant the last few days since his admission. He does indicate he has had significant spasms prior to the last few days, but these have also improved. [facility] Medical History Osteoarthritis of left knee Diabetes Bladder disease Dietary restriction Injury of head and neck History of pain when walking Walker as ambulation aid Foot drop, right Arthritis Chronic pain Non-smoker Home Medications ?Medication ?Instructions ?Recorded ?Last Taken ?Type acetaminophen 500 mg tablet 1,000 mg (2 x 500 mg) PO Q8 #0 tabs 09/02/23 12/27/23 Rx calcium carbonate 1,000 mg (5 x 200 mg calcium (500 09/02/23 12/27/23 Rx mg)) PO Q6H PRN PRN DYSPEPSIA #0 tabs furosemide 40 mg tablet 40 mg PO BID 11/18/23 Unknown History ferrous fumarate-folic acid 324 mg 1 tab PO DAILY 12/28/23 12/27/23 History (106 mg iron)-1 mg tablet (Hematinic/Folic Acid) levothyroxine 75 mcg tablet 75 mcg PO DAILY 12/28/23 12/27/23 History Allergy/AdvReac Type Severity Reaction Status Date / Time gabapentin AdvReac Intermediate HALLUCINATI Verified 12/28/23 06:52 ONS Family History Other Multiple sclerosis Surgical History Hx of left cataract extraction Hx of eye surgery Social History Smoking Status: Never smoker ROS ROS Narrative Denies new bowel, bladder incontinence. Denies saddle paresthesias. Constitutional Constitutional: Reports fever(s) Physical Exam Narrative Back: No significant tenderness over the lumbar spin to palpation nor percussion. He has difficulty sitting up without assistance. Neuro: 4/5 strength in bilateral hip flexion. right foot drop. (patient indicates his weakness is baseline since back injury). Physiologic DTR physiologic. Reduced sensation RLE Extremities: Edema. Const alert and oriented x3 Constitutional Narrative: Obese General Appearance: cooperative and well developed Eyes EOMs intact bilaterally Resp normal respiratory effort Resp Narrative: On supplemental O2 Psych affect normal Appearance: appropriate Lab / Micro Data 12/29/23 07:03 12/29/23 07:03 Labs: Laboratory Results - last 24 hr 12/28/23 07:40: B-Natriuretic Peptide 237.2 H 12/29/23 07:03: WBC 4.0 L, RBC 2.45 L, Hgb 7.3 L, Hct 25.9 L, MCV 105.7 H, MCH 29.8, MCHC 28.2 L, RDW Std Deviation 79.0 H, RDW Coeff of Tan 20.4 H, Plt Count 116 L, MPV 10.7, Immature Gran % (Auto) 0.300, Neut % (Auto) 78.2 H, Lymph % (Auto) 11.4 L, [place] % (Auto) 8.8, Eos % (Auto) 1.0, Baso % (Auto) 0.3, Absolute Neuts (auto) 3.1, Absolute Lymphs (auto) 0.45 L, Nucleated RBC % 0, Anisocytosis 3+, Sodium 142, Potassium 4.5, Chloride 110 H, Carbon Dioxide 31.0, Anion Gap 1 L, BUN 37 H, Creatinine 1.48 H, Estim Creat Clear Calc 86.70, Est GFR (MDRD) Af Amer 61, Est GFR (MDRD) Non-Af 51 L, BUN/Creatinine Ratio 25.0 H, Glucose 122 H, Calcium 8.3 L, Phosphorus 4.4, Magnesium 2.4, Total Bilirubin 0.60, AST 15, ALT 12 L, Alkaline Phosphatase 81, Total Protein 6.4, Albumin 3.0 L, Globulin 3.4, Albumin/Globulin Ratio 0.9 ABG Data ABG results: ABG 12/28/23 20:47 Specimen Type ART Sample Site R Radial pH 7.40 Bicarbonate Actual 30.1 H Total CO2 32 Base Excess 5 H O2 Saturation 97 O2 % 30.0 ABG pCO2 49.1 H ABG pO2 94 Star Test Positive Respiration Rate 18 O2 Delivery Device AVAPS Vent Mode Not entered Tidal Volume 500.0 POC PEEP 12 Clinical Comments Max PS 28/Min PS 18 Rhythm Strip Rhythm Strip: Sinus Rhythm Rate: 89 Ectopy: None Imaging Radiology Impression Echocardiogram 12/28/23 19:10 Interpretation Summary Normal LV size. Left ventricular systolic function is normal. The left ventricular ejection fraction is 65 %. Contrast injection was performed. Ordering Physician: Haroldo Ruiz Referring Physician: Angelic Monsalve M.D. Performed By: Helen Dawson RDCS Chest X-Ray 12/28/23 22:55 IMPRESSION: Left midlung atelectasis. Electronically Signed: Lana Gutierrez MD at 23:10 EDT ,
[2023-12-30] VITALS (10 sets, daily range): BP systolic 138–158; BP diastolic 59–73; PULSE 71–87; RESP 16–91; TEMP 36.3–36.7; O2SAT 91–97; BMI 45.8
[2023-12-30] MEDS: Furosemide 40 MG/4 ML Vial IV ×3 (05:53→21:40)
[2023-12-30] MEDS: Acetaminophen 500 MG Tablet 1000 MG PO ×3 (05:53→21:40)
[2023-12-30] MEDS: Levothyroxine 50 MCG Tablet PO (05:53)
[2023-12-30 07:26] LABS: Absolute Lymphocyte Count 0.55 X10^3/uL (0.83-4.51); Absolute Neutrophil Count 2.3 X10^3/uL (2.0-7.7); Basophil# 0.01 X10^3/uL; Basophil% 0.3 % (0-1); Eosinophil# 0.11 X10^3/uL; Eosinophils% 3.4 % (0-5); Hematocrit 28.9 % (40-54); Hemoglobin 7.8 g/dL (13.0-16.5); Lymphocyte # 0.55 X10^3/ul (0.83-4.51); Lymphocyte % 16.8 % (19-41); Mean Corpuscular Hgb 28.7 pg (27.0-32.0); Mean Corpuscular Volume 106.3 fL (80-94); Monocyte# 0.25 X10^3/uL; Monocyte% 7.6 % (0-10); NRBC Flagged by Analyzer 0 % (0-5); Neutrophil # 2.34 X10^3/uL (2.7-7.7); Neutrophil % 71.6 % (47-70); POSITIVE DIFFERENTIAL YES; POSITIVE MORPHOLOGY YES; Platelet Count 118 K/mm3 (150-450); RBC Distribution Width CV 20.2 % (11.6-14.6); RBC Distribution Width SD 79.5 fl (35.1-43.9); Red Blood Count 2.72 M/mm3 (4.6-6.2); White Blood Count 3.3 K/mm3 (4.4-11.0)
[2023-12-30 07:48] LABS: Anion Gap 3 (5-15); BUN 37 mg/dL (7-18); BUN/Creat Ratio 25.7 RATIO (10-20); Calcium,Total 8.6 mg/dL (8.5-10.1); Chloride 108 mmol/L (98-107); Creatinine, Serum 1.44 mg/dL (0.70-1.30); EST Glomerular Filtration Rate 52 mL/min (>60); Est Glom Filt Rate - Afr Amer 63 mL/min (>60); Estimated Creatinine Clearance 89.37 ml/min; Glucose 140 mg/dL (74-106); Potassium 4.6 mmol/L (3.5-5.1); Sodium Level 144 mmol/L (136-145)
[2023-12-30] MEDS: Potassium Chloride Oral Tablet 20 MEQ PO ×2 (08:43→17:36)
[2023-12-30] MEDS: Heparin Injection (Vial) 5,000 UNIT/ML VIAL 5000 UNIT SC ×2 (08:43→21:39)
[2023-12-30] MEDS: 0.9% Saline Lock 10 ML Syringe IV ×3 (08:44→21:40)
[2023-12-30 09:21] LABS: Anisocytosis 3+
--- NOTE | 2023-12-30 12:07 | MRI_ITS ---
STUDY: MRI LUMBAR SPINE WITHOUT CONTRAST REASON FOR EXAM: Male, 63 years old. L2 compression fx, acute vs chronic TECHNIQUE: Standardized fat and water weighted pulse sequences were obtained in the sagittal and axial planes. COMPARISON: MRI the lumbar spine dated October 30, 2019. X-ray the lumbar spine dated December 28, 2023. FINDINGS: Normal lumbar lordosis. There is no substantial scoliosis. Normal conus medullaris that terminates at the L1 level. Redemonstration of a chronic burst fracture compression deformity of the T12 vertebral body. Chronic compression deformity of the L2 vertebral body. No new abnormalities are present. T12-L1: Mild to moderate disc space narrowing without posterior annular bulging. Normal bilateral facet joints. Normal central canal and bilateral lateral recesses. Normal bilateral intervertebral neural foramina. L1-2: Mild posterior disc space narrowing and shallow midline disc protrusion. Mild facet joint hypertrophy. Normal central canal and bilateral lateral recesses. Normal bilateral intervertebral neural foramina. L2-3: Mild posterior disc space narrowing but no herniation or bulging of the disc. Mild facet joint hypertrophy. Normal central canal and bilateral lateral recesses. Normal bilateral intervertebral neural foramina. L3-4: Mild Modic endplate degenerative changes. Small Schmorl''s node. Diffuse disc desiccation and mild disc space narrowing without bulging or herniation mild to moderate facet joint hypertrophy. Mild right fluid distention of the facet joint. Mild right foraminal stenosis. Normal left neural foramen. Normal central canal and bilateral lateral recesses. L4-5: Diffuse disc desiccation with mild posterior disc space narrowing but no annular bulging or herniation. Mild to moderate facet joint hypertrophy. Mild right foraminal stenosis with posterior nerve root impingement. Normal left neural foramen. Normal central canal and bilateral lateral recesses. L5-S1: Mild endplate degenerative signal. Diffuse disc desiccation with mild disc space narrowing and minimal posterior annular bulging mild to moderate right foraminal stenosis with nerve root impingement. Mild facet joint hypertrophy. Normal left neural foramen. Normal bilateral facet joints. Normal central canal and bilateral lateral recesses. Normal visualized sacral ala. There is mild paraspinal muscular atrophy. MRI/Spine Lumbar (Routine) IMPRESSION: 1. Multilevel degenerative changes, as described above. 2. Multilevel foraminal stenosis with nerve root compression 3. Chronic compression fracture of L2 4. Old burst fracture of T12 Electronically Signed: Ke Amato MD at 16:02 EDT ,
--- NOTE | 2023-12-30 12:11 | PCM.PN.HOSP ---
Reason for Visit Reason for Visit: Diagnoses Acute respiratory failure with hypercapnia (12/29/23) Wedge compression fracture of second lumbar vertebra, initial encounter for closed fracture (12/29/23) Subjective Subjective No acute events overnight. Saw patient at bedside this morning, present. Patient was sitting up comfortably in bed, conversing normally, in no acute distress. He was mildly fatigued appearing. He was breathing comfortably on 3 L nasal cannula at rest. Patient states that he feels tired this morning but otherwise denies any new concerns. Denies any back pain this morning. He and are hoping that he can either have another blood transfusion or iron infusions done while here to improve his hemoglobin level and hopefully his energy level. He has been tolerating the Lasix drip well with good urine output. No other acute concerns today. Objective Data Objective Data Vital Signs: Vital Signs Temp Pulse Resp BP Pulse Ox O2 Del Method O2 Flow Rate 97.4 F L 71 16 154/62 H 94 Nasal Cannula 3 12/30/23 08:25 12/30/23 08:25 12/30/23 08:25 12/30/23 08:25 12/30/23 11:14 12/30/23 08:33 12/30/23 11:14 FiO2 35 12/30/23 03:55 Oxygen Flow Rate (L/min) 3 Oxygen Delivery Method Nasal Cannula Weight: 175.2 kg Body Mass Index (BMI) 45.8 Intake & Output: Intake and Output for Last 24 Hours 12/28/23 12/29/23 12/30/23 23:59 23:59 23:59 Intake Total 0 / 0 1060 / 1060 Output Total 400 / 1300 3050 / 3050 650 / 650 Balance -400 / -1300 -1989 / -1989 -650 / -650 Lab / Micro Data 12/30/23 07:01 12/30/23 07:01 Labs: Laboratory Results - last 24 hr 12/30/23 07:01: WBC 3.3 L, RBC 2.72 L, Hgb 7.8 L, Hct 28.9 L, MCV 106.3 H, MCH 28.7, MCHC 27.0 L, RDW Std Deviation 79.5 H, RDW Coeff of Tan 20.2 H, Plt Count 118 L, MPV 11.0, Immature Gran % (Auto) 0.300, Neut % (Auto) 71.6 H, Lymph % (Auto) 16.8 L, Rabun % (Auto) 7.6, Eos % (Auto) 3.4, Baso % (Auto) 0.3, Absolute Neuts (auto) 2.3, Absolute Lymphs (auto) 0.55 L, Nucleated RBC % 0, Anisocytosis 3+, Sodium 144, Potassium 4.6, Chloride 108 H, Carbon Dioxide 33.0 H, Anion Gap 3 L, BUN 37 H, Creatinine 1.44 H, Estim Creat Clear Calc 89.37, Est GFR (MDRD) Af Amer 63, Est GFR (MDRD) Non-Af 52 L, BUN/Creatinine Ratio 25.7 H, Glucose 140 H, Calcium 8.6 Rhythm Strip Rhythm Strip: Sinus Rhythm Rate: 89 Ectopy: None Physical Exam Const alert, oriented x3 and no apparent distress Constitutional Narrative: Elderly male, morbidly obese, mildly fatigued appearing, otherwise sitting up comfortably in bed, conversing normally, no acute distress. General Appearance: cooperative and comfortable HEENT normocephalic, head/scalp atraumatic, hearing grossly normal bilaterally, nasal mucous membranes and turbinates normal and moist oral mucous membranes Eyes PERRL, EOMs intact bilaterally and conjunctivae normal Neck full ROM Chest inspection of chest normal Resp normal respiratory effort and no use of accessory muscles Resp Narrative: Mild to moderately decreased breath sounds bilaterally, worse at lung bases; suspect in part due to body habitus. No wheezing or crackles noted. Breathing comfortably on 3 L of cannula with good oxygen saturations. Cardio regular rate, regular rhythm, no murmurs and peripheral pulses 2+ throughout GI normal to inspection, nondistended, normoactive bowel sounds, soft to palpation, non-tender and non-distended Back/Spine normal ROM Extremity normal to inspection and full ROM Extremity Narrative: +1-2 lower extremity edema noted. Skin no rashes or lesions noted Neuro moves all extremities and no focal motor deficits Speech: speech normal Psych mental status grossly normal Assessment & Plan Assessment/Plan (1) Acute respiratory failure: (2) Generalized weakness: (3) Compression fracture of L2: (4) Falls: PLAN: Plan Patient is a 63-year-old male who presented [facility] ED on 12/28/2023 with weakness and falls at home. 1. Acute combined respiratory failure, improving; suspected GLENN ? Initially admitted to [facility] for falls and debility. Had respiratory decompensation on day of admission requiring transfer to the ICU. Pulmonology followed. Suspected that decompensation was secondary to IV pain medication in setting of suspected GLENN with possibly some component of obesity hypoventilation syndrome. Improved with PAP therapy, did not require intubation. Transferred out of ICU on 12/28. Continue diuresis as noted below. Wean supplemental oxygen as able. Will need a sleep study done in the outpatient setting shortly after discharge. 2. Acute on chronic debility ? PT/OT/case management consulted. Lives at home with , suspect worsening functional status is multifactorial from worsened lower extremity edema, chronic anemia and morbid obesity. Planning for SNF on discharge. 3. Lower leg lymphedema with concurrent moderate edema; heart failure ruled out ? Echo on 12/28 with EF 65%, normal LV size and function, no abnormalities. Started on IV Lasix on admit, will transition back to home p.o. Lasix 40 mg twice daily on 12/30. 4. Chronic iron deficiency anemia due to pernicious anemia ? Hemoglobin ranging from 7-8 during hospitalization. Iron studies with ferritin very low at 11. Will give 2 IV iron infusions on 12/29- while inpatient. Monitor CBC daily. Planning for outpatient follow-up with Dr. Drake in the near future. 5. L2 compression fracture ? Pain management evaluated. Lumbar spine x-ray on admit showed compression fracture of L2, unclear if acute versus chronic. Lumbar spine MRI without contrast on 12/29 showed chronic compression fracture of L2. Patient has had minimal pain since admission. Per pain management, okay to continue scheduled Tylenol for now, no other medications or interventions needed at this time. 6. Thrombocytopenia ? Platelet count stable 116-132 since admit. On chart review, has had low platelet counts in the recent past of unclear etiology. Has outpatient follow-up scheduled with Dr. Drake as noted above. Monitor CBC. 7. Hypothyroidism ? TSH mildly elevated, T4 normal on 12/23. Continue home Synthroid. Outpatient follow-up with PCP as needed. 8. Morbid obesity ? BMI 45 on admit. Complicates hospital course, care and prognosis. DVT prophylaxis: Heparin subcu CODE STATUS: Full code, unverified Expected disposition: SNF, 1 to 2 days Total clinical time spent by myself addressing the patient's medical issues, reviewing all the data, and collaborating with patient's care team: 35 minutes. Charges/Coding Visit Charges Inpatient E&M: 77673 Subs Hosp L2
[2023-12-30 13:49] LABS: Ferritin 11 ng/mL (26-388)
--- NOTE | 2023-12-30 14:31 | CASEMGMT ---
SW met with patient and let him know [facility] will not be able to take him. Patient stated he does not want to go anywhere else. SW provided patient with a list of [facility]pc facility providers including quality and resource use data and consistent with patient?s preferred geographic region, medical needs, and insurance network were provided from the [facility] Guide. SW did go over the list with patient and there are 2 other facilities that are located inside a hospital. Patient was okay with SW making a referral to [place]. MIHIR asked sarah Reyna/zulema urban planning professor to make a referral to [facility]. Marlene Naidu PLASTICS FABRICATOR [employer]
--- NOTE | 2023-12-30 14:35 | CASEMGMT ---
Addendum entered by Maribell Sanders 12/30/23 15:15: [facility] declined referral. SW updated. Maribell Sanders DC Planning Asst. Original Note: Discharge Planning Referral sent to [facility] via [facility]. Maribell Sanders DC Planning Asst.
--- NOTE | 2023-12-30 15:34 | CHAPLAIN ---
Type of Pastoral Visit _x__ Initial Visit ___ Follow-up Visit ___ On-call Visit ___ General Patient Visit ___ Spiritual Assessment ___ Family Conference ___ Bereavement ___ Rapid Response ___ Code Blue ___ Other (describe below) Pastoral Care Referral From _x__ Patient ___ Family ___ Nurse ___ Physician ___ Soup Person ___ Head Tennis Professional ___ Other (describe below) Sacrament/Intervention _x__ Active listening ___ Anointing ___ Shinto ___ Bereavement ___ Communion ___ Noemy exploration ___ _x__ Life review ___ Prayer ___ Reconciliation ___ Sacrament of Sick _x__ Supportive presence ___ Wedding ___ Other (describe below) Pastoral Comments patient is open to talking about his situation and the involvement of many health issues that must be treated; pt talks about how he is coping and handling this which he believes is in a good way; pt explains plan for further treatment and being accepting of it; pt states If He wants me around I will be and if He doesn't then I won't. It's that way; RN came to room to get pt ready for MRI at this time
--- NOTE | 2023-12-30 15:38 | CASEMGMT ---
SW went to patient's room to notify him that [facility] has declined. Patient was not in his room. MIHIR will check back with patient tomorrow am to get more choices. Marlene ROSSI
--- NOTE | 2023-12-30 16:06 | CASEMGMT ---
MIHIR asked [facility] to re-consider patient as he was contact guard and walked 100'. [facility] accepted patient. MIHIR sent [facility] patient's bipap settings. MIHIR also asked [facility] to start the pre-cert. Plan: d/c to [facility] pending insurance approval. Marlene ROSSI
[2023-12-30] MEDS: Sodium Ferric Gluconat/Sucrose 250 MG in 0.9% Normal Saline (250mL Bag) 250 ML 135 MG IV (17:36)
[2023-12-31 03:12] VITALS: BMI 45.8
[2023-12-31 03:30] VITALS: BP 145/59; PULSE 87; RESP 18; TEMP 36.7; O2SAT 92
[2023-12-31] MEDS: Acetaminophen 500 MG Tablet 1000 MG PO ×2 (06:06→14:35)
[2023-12-31] MEDS: Levothyroxine 50 MCG Tablet PO (06:06)
[2023-12-31 07:03] LABS: Hematocrit 28.6 % (40-54); Hemoglobin 7.7 g/dL (13.0-16.5); Mean Corp Hgb Conc 26.9 g/dL (32-36); Mean Corpuscular Hgb 28.5 pg (27.0-32.0); Mean Corpuscular Volume 105.9 fL (80-94); Mean Platelet Vol. 10.5 fl (6.2-12.0); POSITIVE MORPHOLOGY YES; Platelet Count 109 K/mm3 (150-450); RBC Distribution Width CV 19.9 % (11.6-14.6); RBC Distribution Width SD 76.5 fl (35.1-43.9); White Blood Count 3.7 K/mm3 (4.4-11.0)
[2023-12-31 07:33] LABS: Anion Gap 1 (5-15); BUN 33 mg/dL (7-18); BUN/Creat Ratio 27.5 RATIO (10-20); Calcium,Total 8.6 mg/dL (8.5-10.1); Chloride 108 mmol/L (98-107); EST Glomerular Filtration Rate 65 mL/min (>60); Est Glom Filt Rate - Afr Amer 78 mL/min (>60); Estimated Creatinine Clearance 107.24 ml/min; Glucose 140 mg/dL (74-106); Potassium 4.1 mmol/L (3.5-5.1); Sodium Level 144 mmol/L (136-145)
[2023-12-31 08:18] VITALS: BP 144/62; PULSE 87; RESP 18; TEMP 36.7; O2SAT 92
[2023-12-31] MEDS: Sodium Ferric Gluconat/Sucrose 250 MG in 0.9% Normal Saline (250mL Bag) 250 ML 135 MG IV (08:23)
[2023-12-31 08:24] VITALS: O2SAT 95
[2023-12-31 08:30] LABS: Scan Indicated on CBC? Y/N YES- FLAGS NOTED
[2023-12-31 09:30] VITALS: BP 143/65; PULSE 91; RESP 18; TEMP 36.4; O2SAT 94
[2023-12-31] MEDS: Potassium Chloride Oral Tablet 20 MEQ PO ×2 (09:38→18:45)
[2023-12-31] MEDS: Heparin Injection (Vial) 5,000 UNIT/ML VIAL 5000 UNIT SC (09:38)
[2023-12-31] MEDS: Furosemide 40 MG Tablet PO ×2 (09:39→18:45)
--- NOTE | 2023-12-31 12:25 | CASEMGMT ---
SW spoke with patient and let him know that [facility] can take him pending insurance approval. SW explained patient would probably go by wheelchair van and this would not be covered by insurance. Patient asked if he could go by car. SW told him no, as he requires O2 and he does not have portable tanks. Patient asked about his insurance coverage at the longterm and an approximate cost of wheelchair van. SW told patient SW will call his insurance and find out SNF benefits. SW can also find out rates for wheelchair van. Marlene Naidu [employer] CR[employer]HER [employer]
--- NOTE | 2023-12-31 12:39 | CASEMGMT ---
SW contacted patient's insurance and patient's SNF benefits are: Days 1-20 covered at 100% and days 21-100 daily co-pay of $203. Approximate wheelchair van coverage based on $95 base fee and $9 per mile would be around $260. SW gave patient this information. SW did tell patient this is not an exact amount, just an estimate. Plan: d/c to [facility] pending insurance approval. Marlene Naidu ROUGE SIFTER [employer]
--- NOTE | 2023-12-31 13:54 | CASEMGMT ---
Patient was approved to go to [facility]. SW notified physician and will notify patient. Marlene ROSSI
--- NOTE | 2023-12-31 14:25 | PCM.TXEXTCAR ---
Diet Diet Order/Speech Therapy: 12/28/23 23:32 Diet: Regular - General Is pt able to select menu?: Yes Routine Orders/Code Status O2 Frequency: Continuous Keep PO Greater than or Equal to (%): 88 Routine Lab Work: CBC (Repeat in 5-7 days.) and BMP (Repeat in 5-7 days.) Code Status: Full Code Therapies Weight Bearing: Full weight bearing Physical Therapy: Eval and Treat Occupational Therapy: Eval and Treat Problem/Diagnosis (1) Acute respiratory failure: Status: Acute Code(s): J96.00 - Acute respiratory failure, unspecified whether with hypoxia or hypercapnia (2) Generalized weakness: Status: Acute Code(s): R53.1 - Weakness (3) Compression fracture of L2: Status: Acute Code(s): S32.020A - Wedge compression fracture of second lumbar vertebra, initial encounter for closed fracture (4) Falls: Status: Acute Code(s): W19.XXXA - Unspecified fall, initial encounter Plan Patient is a 63-year-old male who presented [facility] ED on 12/28/2023 with weakness and falls at home. Hospital course as noted below. Patient stable for discharge to [facility] on 12/30. 1. Acute combined respiratory failure, improving; suspected GLENN ? Initially admitted to [facility] for falls and debility. Had respiratory decompensation on day of admission requiring transfer to the ICU. Pulmonology followed. Suspected that decompensation was secondary to IV pain medication in setting of suspected GLENN with possibly some component of obesity hypoventilation syndrome. Improved with PAP therapy, did not require intubation. Transferred out of ICU on 12/28. Continue diuretic on discharge as noted below. Was consistently needing 2 to 3 L nasal cannula at rest on day of discharge; wean supplemental oxygen as able. Will need a sleep study done in the outpatient setting shortly after discharge. 2. Acute on chronic debility ? PT/OT/case management followed. Lives at home with , suspect worsening functional status is multifactorial from worsened lower extremity edema, chronic anemia and morbid obesity. Discharged to [facility] in stable condition. 3. Lower leg lymphedema with concurrent moderate edema; heart failure ruled out ? Echo on 12/28 with EF 65%, normal LV size and function, no abnormalities. Started on IV Lasix on admit with very good urine output. Transitioned back to home p.o. Lasix 40 mg twice daily on day of discharge, continue this on discharge. Notably was discharged with Mccarthy catheter in place as patient continues to have poor mobility and good urine output after Lasix doses. Can consider void trial prior to discharge from TCU. 4. Chronic iron deficiency anemia due to pernicious anemia ? Hemoglobin ranging from 7-8 during hospitalization. Iron studies with ferritin very low at 11. Gave to IV iron infusions with iron sucrose 200 mg on 12/29 and 12/30. Recommend repeat CBC in 5 to 7 days. Planning for outpatient follow-up with Dr. Drake in the near future. 5. L2 compression fracture ? Pain management evaluated. Lumbar spine x-ray on admit showed compression fracture of L2, unclear if acute versus chronic. Lumbar spine MRI without contrast on 12/29 showed chronic compression fracture of L2. Patient has had minimal pain since admission, no need for intervention per pain management. Continue scheduled Tylenol on discharge. 6. Thrombocytopenia ? Platelet count stable 116-132 since admit. On chart review, has had low platelet counts in the recent past of unclear etiology. Has outpatient follow-up scheduled with Dr. Drake as noted above. 7. Hypothyroidism ? TSH mildly elevated, T4 normal on 12/23. Continue home Synthroid. Outpatient follow-up with PCP as needed. 8. Morbid obesity ? BMI 45 on admit. Complicated hospital course, care and prognosis. Total clinical time spent by myself addressing the patient's medical issues, reviewing all the data, and collaborating with patient's care team: 35 minutes. Allergies/Procedures Done in Hospital Allergies gabapentin Adverse Reaction (Intermediate, Verified 12/28/23 06:52) HALLUCINATIONS Procedures: EKG, Transthoracic Echo and - (Chest x-ray x 2, lumbar spine x-ray, lumbar spine MRI) Type of Care/Length of Stay Estimated LOS: Convalescent Care Less Than 30 days Type of Care Needed: Skilled Rehab Potential: Fair Prognosis: Fair Additional Orders/Day of Discharge H&P will serve as current which was dated: 12/28/23 Day of Discharge: 12/31/23 Dietary and Speech Recommendations Dietitian Recommendations/Changes: Recommend advance PO diet as tolerated to 2200 calorie/consistent carbohydrate; cardiac/sodium-restricted. Fluid restriction as needed per physician; pt is on lasix. BMI 45.7; Defer ONS unless PO inadequate as diet advanced. Discharge Plan Admission Admit Date/Time: 12/29/23 11:43 Primary Reason for Your Visit: Falls with worsening debility Attending Provider: Lm Ingram Primary Care Provider: Angelic Monsalve Consulting Providers: Leonarda Snowden; Haroldo Ruiz Discharge Orders/Prescriptions Prescriptions: New potassium chloride 20 mEq Tablet,Er Particles/Crystals 20 meq PO DAILY Qty: 0 0RF Continued acetaminophen 500 mg Tablet 1,000 mg PO Q8 Qty: 0 0RF calcium carbonate 200 mg calcium (500 mg) Tablet,Chewable 1,000 mg PO Q6H PRN PRN (Reason: DYSPEPSIA) Qty: 0 0RF levothyroxine 75 mcg tablet 75 mcg PO DAILY Hematinic/Folic Acid 324 mg (106 mg iron)-1 mg tablet 1 tab PO DAILY furosemide 40 mg tablet 40 mg PO BID Patient Comments: PT HASNT TAKEN IN APPROX A WEEK BECAUSE PT CANT GET TO THE BATHROOM IN TIME. Referrals / Follow Up: Angelic Monsalve MD [Primary Care Provider] - Disposition Disposition (needs filled in before D/C Order can be placed): [facility]
--- NOTE | 2023-12-31 14:34 | PCM.DC.SUM ---
Providers Date of Admission: 12/28/23 Date of Discharge: 12/31/23 Primary Care Physician: Dr. Angelic Monsalve MD Consultations 12/28/23 10:54 Consult: Pain Management Routine Consulting Provider: Leonarda Snowden Reason for Consult: compression fracture EMERGENT Consult: No Notified: Yes Date Notified: 12/28/23 Time Notified: 11:04 Method of Notification: office 12/28/23 16:36 Consult: Hydrographic Engineer / Pulmonary Medicine Routine Consulting Provider: Intensivists/Pulmonary Med Reason for Consult: hypercapnea EMERGENT Consult: No Notified: Yes Date Notified: 12/28/23 Time Notified: 16:41 Method of Notification: Text Reason For Visit: COMPRESSION FRACTURE L2, DEBILITY Diagnosis Discharge Diagnosis (1) Acute respiratory failure: Status: Acute Code(s): J96.00 - Acute respiratory failure, unspecified whether with hypoxia or hypercapnia (2) Generalized weakness: Status: Acute Code(s): R53.1 - Weakness (3) Compression fracture of L2: Status: Acute Code(s): S32.020A - Wedge compression fracture of second lumbar vertebra, initial encounter for closed fracture (4) Falls: Status: Acute Code(s): W19.XXXA - Unspecified fall, initial encounter Medications at Discharge Home Medications acetaminophen 500 mg tablet 1,000 mg (2 x 500 mg) PO Q8 #0 tabs 09/02/23 calcium carbonate 1,000 mg (5 x 200 mg calcium (500 mg)) PO Q6H PRN PRN DYSPEPSIA #0 tabs 09/02/23 furosemide 40 mg tablet 40 mg PO BID 11/18/23 ferrous fumarate-folic acid 324 mg (106 mg iron)-1 mg tablet (Hematinic/Folic Acid) 1 tab PO DAILY 12/28/23 levothyroxine 75 mcg tablet 75 mcg PO DAILY 12/28/23 potassium chloride 20 mEq tablet,extended release(part/cryst) 20 meq PO DAILY #0 tabs 12/31/23 Hospital Course Operations None Procedures EKG, Transthoracic echo and - (Chest x-ray x 2, lumbar spine x-ray, lumbar spine MRI) Summary of Care Provided Minutes Spent on Discharge: 35 Hospital Course: Patient is a 63-year-old male who presented [facility] ED on 12/28/2023 with weakness and falls at home. Hospital course as noted below. Patient stable for discharge to [facility] on 12/30. 1. Acute combined respiratory failure, improving; suspected GLENN ? Initially admitted to [facility] for falls and debility. Had respiratory decompensation on day of admission requiring transfer to the ICU. Pulmonology followed. Suspected that decompensation was secondary to IV pain medication in setting of suspected GLENN with possibly some component of obesity hypoventilation syndrome. Improved with PAP therapy, did not require intubation. Transferred out of ICU on 12/28. Continue diuretic on discharge as noted below. Was consistently needing 2 to 3 L nasal cannula at rest on day of discharge; wean supplemental oxygen as able. Will need a sleep study done in the outpatient setting shortly after discharge. 2. Acute on chronic debility ? PT/OT/case management followed. Lives at home with , suspect worsening functional status is multifactorial from worsened lower extremity edema, chronic anemia and morbid obesity. Discharged to [facility] in stable condition. 3. Lower leg lymphedema with concurrent moderate edema; heart failure ruled out ? Echo on 12/28 with EF 65%, normal LV size and function, no abnormalities. Started on IV Lasix on admit with very good urine output. Transitioned back to home p.o. Lasix 40 mg twice daily on day of discharge, continue this on discharge. Notably was discharged with Mccarthy catheter in place as patient continues to have poor mobility and good urine output after Lasix doses. Can consider void trial prior to discharge from TCU. 4. Chronic iron deficiency anemia due to pernicious anemia ? Hemoglobin ranging from 7-8 during hospitalization. Iron studies with ferritin very low at 11. Gave to IV iron infusions with iron sucrose 200 mg on 12/29 and 12/30. Recommend repeat CBC in 5 to 7 days. Planning for outpatient follow-up with Dr. Drake in the near future. 5. L2 compression fracture ? Pain management evaluated. Lumbar spine x-ray on admit showed compression fracture of L2, unclear if acute versus chronic. Lumbar spine MRI without contrast on 12/29 showed chronic compression fracture of L2. Patient has had minimal pain since admission, no need for intervention per pain management. Continue scheduled Tylenol on discharge. 6. Thrombocytopenia ? Platelet count stable 116-132 since admit. On chart review, has had low platelet counts in the recent past of unclear etiology. Has outpatient follow-up scheduled with Dr. Drake as noted above. 7. Hypothyroidism ? TSH mildly elevated, T4 normal on 12/23. Continue home Synthroid. Outpatient follow-up with PCP as needed. 8. Morbid obesity ? BMI 45 on admit. Complicated hospital course, care and prognosis. Total clinical time spent by myself addressing the patient's medical issues, reviewing all the data, and collaborating with patient's care team: 35 minutes. Physical Exam Const alert, oriented x3 and no apparent distress Constitutional Narrative: Elderly male, morbidly obese, mildly fatigued appearing, otherwise sitting up comfortably in bed, conversing normally, no acute distress. General Appearance: cooperative and comfortable HEENT normocephalic, head/scalp atraumatic, hearing grossly normal bilaterally, nasal mucous membranes and turbinates normal and moist oral mucous membranes Eyes PERRL, EOMs intact bilaterally and conjunctivae normal Neck full ROM Chest inspection of chest normal Resp normal respiratory effort and no use of accessory muscles Resp Narrative: Mild to moderately decreased breath sounds bilaterally, worse at lung bases; suspect in part due to body habitus. No wheezing or crackles noted. Breathing comfortably on 3 L of cannula with good oxygen saturations. Stable. Cardio regular rate, regular rhythm, no murmurs and peripheral pulses 2+ throughout GI normal to inspection, nondistended, normoactive bowel sounds, soft to palpation, non-tender and non-distended Back/Spine normal ROM Extremity normal to inspection and full ROM Extremity Narrative: Chronic venous stasis changes with +1-2 lower extremity edema noted. Stable. Skin no rashes or lesions noted Neuro moves all extremities and no focal motor deficits Speech: speech normal Psych mental status grossly normal Weight / BMI Weight Weight: 175.2 kg Body Mass Index (BMI) 45.8 ABG / Lab / Microbiology Data 12/31/23 06:24 12/31/23 06:24 Laboratory: Laboratory Results - last 24 hr 12/31/23 06:24: WBC 3.7 L, RBC 2.70 L, Hgb 7.7 L, Hct 28.6 L, MCV 105.9 H, MCH 28.5, MCHC 26.9 L, RDW Std Deviation 76.5 H, RDW Coeff of Tan 19.9 H, Plt Count 109 L, MPV 10.5, Differential Comment , Sodium 144, Potassium 4.1, Chloride 108 H, Carbon Dioxide 35.0 H, Anion Gap 1 L, BUN 33 H, Creatinine 1.20, Estim Creat Clear Calc 107.24, Est GFR (MDRD) Af Amer 78, Est GFR (MDRD) Non-Af 65, BUN/Creatinine Ratio 27.5 H, Glucose 140 H, Calcium 8.6 Radiography Diagnostic Testing: Radiology Impression Lumbar Spine MRI 12/30/23 12:07 IMPRESSION: 1. Multilevel degenerative changes, as described above. 2. Multilevel foraminal stenosis with nerve root compression 3. Chronic compression fracture of L2 4. Old burst fracture of T12 Electronically Signed: Ke Amato MD at 16:02 EDT Reading Location ID and State: [facility] / [place] , Service support , Meaningful Use Info Meaningful Use Meaningful Use Diagnoses (Choose all that apply): None applicable Ischemic Stroke Statin Dosing Therapy Reference: STATIN DOSE THERAPY REFERENCE: * Patients > 75 years receive moderate or high dose statin therapy. * Patients 75 years or YOUNGER should receive HIGH intensity statin dose unless contraindicated. You will be required to document reason for non-treatment if statin daily dose does not meet guidelines. HIGH DOSE STATIN THERAPY DAILY Atorvastatin > than or = to 40 mg Rosuvastatin > than or = to 20 mg Amlodipine + Atorvastatin > than or = to 2.5/40 mg Ezetimibe + Simvastatin 10/80 mg Simvastatin 80mg Discharge Plan Admission Admit Date/Time: 12/29/23 11:43 Primary Reason for Your Visit: Falls with worsening debility Attending Provider: Lm Ingram Primary Care Provider: Angelic Monsalve Consulting Providers: Leonarda Snowden; Haroldo Ruiz Discharge Orders/Prescriptions Prescriptions: New potassium chloride 20 mEq Tablet,Er Particles/Crystals 20 meq PO DAILY Qty: 0 0RF Continued acetaminophen 500 mg Tablet 1,000 mg PO Q8 Qty: 0 0RF calcium carbonate 200 mg calcium (500 mg) Tablet,Chewable 1,000 mg PO Q6H PRN PRN (Reason: DYSPEPSIA) Qty: 0 0RF levothyroxine 75 mcg tablet 75 mcg PO DAILY Hematinic/Folic Acid 324 mg (106 mg iron)-1 mg tablet 1 tab PO DAILY furosemide 40 mg tablet 40 mg PO BID Patient Comments: PT HASNT TAKEN IN APPROX A WEEK BECAUSE PT CANT GET TO THE BATHROOM IN TIME. Referrals / Follow Up: Angelic Monsalve MD [Primary Care Provider] - Disposition Disposition (needs filled in before D/C Order can be placed): [facility] Facility Charges/Coding Visit Charges Inpatient E&M: 61502 Disch Hosp >30min
[2023-12-31] MEDS: 0.9% Saline Lock 10 ML Syringe IV (14:35)
--- NOTE | 2023-12-31 14:44 | PHA.DC.MR.R ---
Pharmacy IN Med Reconciliation Pharmacy Service has performed discharge medication reconciliation for this patient. The patient's discharge medication list was reviewed for discrepancies and discrepancies were resolved. Medications at Discharge Home Medications acetaminophen 500 mg tablet 1,000 mg (2 x 500 mg) PO Q8 #0 tabs 09/02/23 calcium carbonate 1,000 mg (5 x 200 mg calcium (500 mg)) PO Q6H PRN PRN DYSPEPSIA #0 tabs 09/02/23 furosemide 40 mg tablet 40 mg PO BID 11/18/23 ferrous fumarate-folic acid 324 mg (106 mg iron)-1 mg tablet (Hematinic/Folic Acid) 1 tab PO DAILY 12/28/23 levothyroxine 75 mcg tablet 75 mcg PO DAILY 12/28/23 potassium chloride 20 mEq tablet,extended release(part/cryst) 20 meq PO DAILY #0 tabs 12/31/23
--- NOTE | 2023-12-31 15:00 | CASEMGMT ---
Patient is ready for discharge to [facility]. Plan: d/c to [facility] under skilled level of care. Physicians will transport patient via wheelchair. Marlene ROSSI
--- NOTE | 2023-12-31 15:06 | CASEMGMT ---
Shashi Planning Discharge orders, signed med list, and tranport time sent to [facility] via [facility]. Physicians will transport patient by wheelchair at 7p. Nursing, SW, patient, and his updated. Maribell Sanders DC Planning Asst.
[2023-12-31 15:38] VITALS: BP 143/65; PULSE 91; RESP 18; TEMP 36.4; O2SAT 94
--- NOTE | 2023-12-31 15:59 | NURSING ---
Report called to nurse Zepeda for pt to be d/c to [facility]
== END 2023-12-31 20:20 | disposition skilled nursing facility (03) | DRG 189 ==
LOC: ED 09:06 → MS3 09:56 → PCU 16:41 → ICU 20:09 → PCU 12-29 09:22
PROVIDERS: Internal Medicine; Admitting Provider Internal Medicine; Emergency Provider Emergency Medicine; PCP Family Medicine; Visit Provider Hospitalist
DX: J96.02 Acute respiratory failure with hypercapnia (principal); E87.29 Other acidosis; E66.2 Morbid (severe) obesity with alveolar hypoventilation; Z68.42 Body mass index [BMI] 45.0-49.9, adult; S32.020A Wedge compression fracture of second lumbar vertebra, initial encounter for closed fracture; J98.11 Atelectasis; D69.6 Thrombocytopenia, unspecified; R62.7 Adult failure to thrive; E11.9 Type 2 diabetes mellitus without complications; D50.9 Iron deficiency anemia, unspecified; E03.9 Hypothyroidism, unspecified; I89.0 Lymphedema, not elsewhere classified; D51.0 Vitamin B12 deficiency anemia due to intrinsic factor deficiency; W19.XXXA Unspecified fall, initial encounter; E87.70 Fluid overload, unspecified; R53.1 Weakness; R53.81 Other malaise; Z74.09 Other reduced mobility; Z79.899 Other long term (current) drug therapy
CPT/HCPCS: 36415; 36600; 51702; 71045; 72100; 72148; 80048; 80053; 82550; 82728; 82803; 83735; 83880; 84100; 85025; 85027; 93005; 93306; 94002; 94003; 94762; 97116; 97162; 97166; 97530; 97535; 97802; 99284; J7050; P9047; Q9957; A4216; C8929; J1940; J2310; J2405; J2916

== ENCOUNTER → 2024-01-17 | Outpatient (CLI) | payer MEDICARE, SELFPAY | END | disposition home or self-care (01) | LOC: LABSPEC 11:25 | PROVIDERS: PCP Family Medicine; Visit Provider Family Medicine | DX: N39.0 Urinary tract infection, site not specified (principal) | CPT/HCPCS: 87086 ==

== ENCOUNTER → 2024-01-18 | Outpatient (CLI) | payer MEDICARE, SELFPAY ==
[2024-01-18 17:50] LABS: Absolute Lymphocyte Count 0.73 X10^3/uL (0.83-4.51); Absolute Neutrophil Count 2.6 X10^3/uL (2.0-7.7); Basophil# 0.02 X10^3/uL; Basophil% 0.5 % (0-1); Eosinophils% 5.1 % (0-5); Hematocrit 31.2 % (40-54); Hemoglobin 9.2 g/dL (13.0-16.5); Lymphocyte # 0.73 X10^3/ul (0.83-4.51); Lymphocyte % 18.7 % (19-41); Mean Corp Hgb Conc 29.5 g/dL (32-36); Mean Corpuscular Hgb 30.2 pg (27.0-32.0); Mean Corpuscular Volume 102.3 fL (80-94); Mean Platelet Vol. 10.4 fl (6.2-12.0); Monocyte# 0.33 X10^3/uL; Monocyte% 8.4 % (0-10); NRBC Flagged by Analyzer 0 % (0-5); Neutrophil # 2.61 X10^3/uL (2.7-7.7); Neutrophil % 66.8 % (47-70); POSITIVE MORPHOLOGY YES; Platelet Count 157 K/mm3 (150-450); RBC Distribution Width CV 19.5 % (11.6-14.6); RBC Distribution Width SD 73.2 fl (35.1-43.9); RET-HE 30.9 pg (30-35); Red Blood Count 3.05 M/mm3 (4.6-6.2); Reticulocyte Count 2.18 % (0.5-1.5); White Blood Count 3.9 K/mm3 (4.4-11.0)
[2024-01-18 18:29] LABS: ALB/GLOB Ratio 0.8 RATIO (0.9-2.4); AST(SGOT) 25 U/L (15-37); Alanine Aminotransfer ALT/SGPT 19 U/L (16-61); Albumin, Serum 3.2 g/dL (3.2-5.0); Alkaline Phosphatase 98 U/L (45-117); Anion Gap 4 (5-15); BUN 23 mg/dL (7-18); BUN/Creat Ratio 20.4 RATIO (10-20); Calcium,Total 9.2 mg/dL (8.5-10.1); Chloride 109 mmol/L (98-107); Creatinine, Serum 1.13 mg/dL (0.70-1.30); EST Glomerular Filtration Rate 69 mL/min (>60); Est Glom Filt Rate - Afr Amer 84 mL/min (>60); Ferritin 31 ng/mL (26-388); Globulin 4.2 g/dL (2.2-4.2); Glucose 121 mg/dL (74-106); Iron 36 ug/dL (65-175); Iron Binding Capacity,Total 353 ug/dL (250-450); PERCENT IRON SATURATION 10.2 % (15.0-55.0); Potassium 4.6 mmol/L (3.5-5.1); Protein, Total 7.4 g/dL (6.4-8.2); Sodium Level 141 mmol/L (136-145)
[2024-01-18 19:02] LABS: Differential Indicated SCAN CRITERIA MET
[2024-01-18 19:03] LABS: Acanthocytes 1+; Anisocytosis 2+; Differential Comment SCANNED; Hypochromasia 1+; Macrocytosis 1+; Microcytosis 1+
[2024-01-19 00:57] LABS: Xtra CC BBK (Onc ONLY) EXTRA TUBE
== END | disposition home or self-care (01) ==
LOC: LAB 16:35
PROVIDERS: PCP Family Medicine; Referring Provider Internal Medicine Hematology & Oncology; Visit Provider Internal Medicine Hematology & Oncology
DX: D50.9 Iron deficiency anemia, unspecified (principal); D61.818 Other pancytopenia; E53.8 Deficiency of other specified B group vitamins
CPT/HCPCS: 36415; 80053; 82728; 83540; 83550; 85025; 85045

== ENCOUNTER → 2024-02-07 | Outpatient (CLI) | payer MEDICARE, SELFPAY ==
[2024-02-07 17:44] LABS: Absolute Lymphocyte Count 0.81 X10^3/uL (0.83-4.51); Absolute Neutrophil Count 2.1 X10^3/uL (2.0-7.7); Basophil# 0.02 X10^3/uL; Basophil% 0.6 % (0-1); Eosinophil# 0.21 X10^3/uL; Hematocrit 30.9 % (40-54); Hemoglobin 9.2 g/dL (13.0-16.5); Lymphocyte # 0.81 X10^3/ul (0.83-4.51); Lymphocyte % 23.1 % (19-41); Mean Corp Hgb Conc 29.8 g/dL (32-36); Mean Corpuscular Hgb 30.9 pg (27.0-32.0); Mean Corpuscular Volume 103.7 fL (80-94); Mean Platelet Vol. 9.1 fl (6.2-12.0); Monocyte# 0.32 X10^3/uL; Monocyte% 9.1 % (0-10); NRBC Flagged by Analyzer 0 % (0-5); Neutrophil # 2.14 X10^3/uL (2.7-7.7); Neutrophil % 61.2 % (47-70); POSITIVE MORPHOLOGY YES; Platelet Count 150 K/mm3 (150-450); RBC Distribution Width CV 18.5 % (11.6-14.6); Red Blood Count 2.98 M/mm3 (4.6-6.2); White Blood Count 3.5 K/mm3 (4.4-11.0)
[2024-02-07 17:58] LABS: Differential Indicated SCAN CRITERIA MET
[2024-02-07 18:07] LABS: Anion Gap 3 (5-15); BUN 29 mg/dL (7-18); BUN/Creat Ratio 29.3 RATIO (10-20); Calcium,Total 9.3 mg/dL (8.5-10.1); Chloride 113 mmol/L (98-107); Creatinine, Serum 0.99 mg/dL (0.70-1.30); EST Glomerular Filtration Rate 81 mL/min (>60); Est Glom Filt Rate - Afr Amer 97 mL/min (>60); Glucose 121 mg/dL (74-106); Potassium 4.2 mmol/L (3.5-5.1); Sodium Level 142 mmol/L (136-145)
[2024-02-07 18:28] LABS: Anisocytosis 2+
== END | disposition home or self-care (01) ==
LOC: MFPLAB 14:35
PROVIDERS: PCP Family Medicine; Visit Provider Family Medicine
DX: D64.9 Anemia, unspecified (principal); R60.0 Localized edema
CPT/HCPCS: 36415; 80048; 85025

== ENCOUNTER → 2024-03-07 | Outpatient (CLI) | payer MEDICARE, SELFPAY ==
[2024-03-07 17:27] LABS: Absolute Lymphocyte Count 0.66 X10^3/uL (0.83-4.51); Absolute Neutrophil Count 2.1 X10^3/uL (2.0-7.7); Basophil# 0.01 X10^3/uL; Basophil% 0.3 % (0-1); Eosinophil# 0.16 X10^3/uL; Eosinophils% 4.9 % (0-5); Hematocrit 24.4 % (40-54); Lymphocyte # 0.66 X10^3/ul (0.83-4.51); Lymphocyte % 20.1 % (19-41); Mean Corp Hgb Conc 28.7 g/dL (32-36); Mean Platelet Vol. 9.9 fl (6.2-12.0); Monocyte% 9.1 % (0-10); NRBC Flagged by Analyzer 0 % (0-5); Neutrophil # 2.14 X10^3/uL (2.7-7.7); Neutrophil % 65.3 % (47-70); POSITIVE MORPHOLOGY YES; Platelet Count 117 K/mm3 (150-450); RBC Distribution Width CV 16.9 % (11.6-14.6); RBC Distribution Width SD 66.7 fl (35.1-43.9); Red Blood Count 2.26 M/mm3 (4.6-6.2); White Blood Count 3.3 K/mm3 (4.4-11.0)
[2024-03-07 17:29] LABS: Differential Indicated SCAN CRITERIA MET
[2024-03-07 17:50] LABS: Anisocytosis 2+; Differential Comment SCANNED; Hypochromasia 1+
[2024-03-07 17:51] LABS: Ferritin 12 ng/mL (26-388); Iron 23 ug/dL (65-175); Iron Binding Capacity,Total 357 ug/dL (250-450); PERCENT IRON SATURATION 6.4 % (15.0-55.0)
== END | disposition home or self-care (01) ==
LOC: LAB 16:50
PROVIDERS: PCP Family Medicine; Referring Provider Nurse Practitioner Family; Visit Provider Nurse Practitioner Family
DX: D61.818 Other pancytopenia (principal)
CPT/HCPCS: 36415; 82728; 83540; 83550; 85025

== ENCOUNTER 2024-05-17 15:40 | Inpatient (IN) | payer MEDICARE, SELFPAY ==
[2024-05-17] VITALS (10 sets, daily range): BP systolic 120–152; BP diastolic 62–89; PULSE 88–99; RESP 18–25; TEMP 36.6–36.8; O2SAT 78–100; BMI 45.1; BMI 44.7
--- NOTE | 2024-05-17 15:43 | ED.VIS.DYS ---
HPI History of Present Illness Chief Complaint: Shortness of Breath Informant: patient Onset/Context/Timing Onset: Days Context: gradual Timing: Continuous Quality: Positive for Dyspnea on exertion Worsened by: Exertion Relieved by: Nothing Associated Symptoms Negative for cough, rhinorrhea, post nasal drip, ear pain, fever, sore throat, chills, sweats, clear sputum, white sputum, yellow sputum or green sputum Narrative Narrative: Patient presents with shortness of breath and weakness that has been getting worse over the past several days. Patient states she is supposed to be taking Lasix 40 mg twice daily. Patient states he is difficulty getting to the bathroom due to his weakness and anemia. Patient states he has not taken any of his Lasix today. Patient states his swelling has been getting progressively worse. Patient states his edema goes up into his abdomen. Patient denies any fevers or chills. Patient denies any chest pain. Patient denies any sore throat or rhinorrhea. PE Risk Factors: Negative for Cancer, OCP + Smoking + > 35, Prior DVT or PE, Recent immobilization, Recent surgery or Recent travel Prior similar symptoms: Yes PFSH PFSH Medical History Pancytopenia Back pain GLENN (obstructive sleep apnea) Hypothyroid Edema Nocturia Vitamin B12 deficiency Muscle spasm Iron deficiency anemia History of diabetes mellitus Chronic anemia Compression fracture of L2 Osteoarthritis of left knee Diabetes Bladder disease Dietary restriction Injury of head and neck History of pain when walking Walker as ambulation aid Foot drop, right Arthritis Chronic pain Non-smoker Home Medications ?Medication ?Instructions ?Recorded ?Last Taken ?Type levothyroxine 75 mcg tablet 50 mcg PO DAILY 01/10/24 Unknown History mecobalamin (vitamin B12) 1,000 1,000 mcg PO DAILY 01/10/24 Unknown History mcg chewable tablet furosemide 20 mg tablet (Lasix) 40 mg PO DAILY 05/08/24 Unknown History Allergy/AdvReac Type Severity Reaction Status Date / Time hydromorphone (From Dilaudid) Allergy Severe Anaphylaxis Verified 05/08/24 16:03 Latex, Natural Rubber Allergy sores in Verified 05/08/24 16:03 mouth gabapentin AdvReac Intermediate HALLUCINATI Verified 05/08/24 16:03 ONS Family History Other Multiple sclerosis Surgical History (Updated 05/17/24 @ 15:[address] Dereck Ayala, DO) Hx of vertebroplasty History of total left knee replacement Hx of left cataract extraction Hx of eye surgery Social History household members: spouse Smoking Status: Never smoker alcohol intake: never substance use type: does not use ROS ROS ED Constitutional Constitutional ED: Denies chills or fever(s) Eyes Eyes: Denies blurry vision or change in vision ENT ENT ED: Denies rhinorrhea or sore throat Cardiovascular Cardiovascular: Denies chest pain or palpitations Respiratory/Chest Respiratory/Chest: Reports dyspnea; Denies cough Gastrointestinal Gastrointestinal: Denies nausea or vomiting Genitourinary Genitourinary ED: Denies dysuria or hematuria Musculoskeletal Musculoskeletal: Reports back pain; Denies neck pain Integumentary Reports rash; Denies abscess Neurologic Neurologic: Reports weakness; Denies headache(s) Allergic/Immunologic Allergic/Immunologic ED: Denies mouth swelling or urticaria EXAM Physical Exam Const Vital Signs: 05/17/24 15:40 05/17/24 15:46 05/17/24 16:04 Temperature 98 F Temperature Source Temporal Pulse Rate 98 94 Respiratory Rate 24 H 18 Respiratory Effort Blood Pressure 152/71 H Blood Pressure Mean 98 Pulse Ox 78 100 Oxygen Delivery Method Room Air Nasal Cannula Room Air Oxygen Flow Rate (L/min) 5 05/17/24 16:40 05/17/24 17:00 05/17/24 17:38 Temperature 98 F Temperature Source Oral Pulse Rate 99 89 Respiratory Rate 20 H 25 H Respiratory Effort Short of Breath Blood Pressure 122/73 H Blood Pressure Mean 89 Pulse Ox 92 94 Oxygen Delivery Method Nasal Cannula Nasal Cannula Oxygen Flow Rate (L/min) 2 5 05/17/24 18:00 05/17/24 19:00 05/17/24 19:16 Temperature 98.1 F 98.2 F 98.2 F Temperature Source Oral Oral Pulse Rate 91 90 88 Respiratory Rate 22 H 20 H 20 H Respiratory Effort Blood Pressure 144/77 H 140/62 H 120/89 H Blood Pressure Mean 99 88 99 Pulse Ox 94 90 90 Oxygen Delivery Method Nasal Cannula Nasal Cannula Oxygen Flow Rate (L/min) 5 3 Positive well nourished and well developed General Appearance ED: well developed and NAD HEENT Reports moist mucous membranes Neck supple and no JVD Resp normal respiratory effort Auscultation: diminished lung sounds Cardio regular rate and regular rhythm GI non-tender and non-distended Palpation: soft Extremity Extremity Narrative: There is 3+ edema of the lower extremities up to the abdomen. General Extremety ED: Yes edema; Negative for tenderness General Extremity: edema Neuro oriented x3, CN's II-XII intact bilaterally and no sensory deficits noted Julio Coma Scale: document GCS findings Spontaneous Obeys Commands Oriented 15 Sensorium / Orientation: alert Speech: speech normal Psych mental status grossly normal MDM MDM MDM Narrative Medical decision making narrative: Differential diagnosis includes congestive heart failure, anemia, cardiac dysrhythmia, cardiac ischemia, electrolyte abnormality, pneumonia, and urinary tract infection. EKG will be obtained to assess for cardiac dysrhythmia and cardiac ischemia. Chest x-ray will be obtained to assess for congestive heart failure and pneumonia. CBC will be obtained to assess for leukocytosis and anemia. Comprehensive metabolic profile will be obtained to assess for hepatic function, renal function, and electrolyte abnormality. High-sensitivity troponin will be obtained to assess for cardiac ischemia. 2-hour repeat high-sensitivity troponin will be obtained to assess for ongoing cardiac ischemia. Urinalysis will be obtained to assess for urinary tract infection and hematuria. BNP will be obtained to assess for congestive heart failure. History & Record Review Additional record(s) reviewed:: Prior labs Lab Data Attestation: I reviewed the patient's lab results. Lab results narrative: CBC was reviewed. Hemoglobin was 7.0 and hematocrit was 25.0. These are actually improved from previous results. Comprehensive metabolic profile was reviewed. BUN was 44 and creatinine was 1.46. Patient has had similar results in the past. Initial high-sensitivity troponin was reviewed and was normal at 23. PT with INR and PTT were reviewed. Pro time was 16.3 and INR is 1.3. PTT was normal at 25.8. BNP was reviewed and was elevated at 525.4. This was improved from previous result. Labs: Laboratory Results - last 24 hr 05/17/24 05/17/24 05/17/24 15:54 16:43 17:00 WBC 4.3 L RBC 2.38 L Hgb 7.0 L Hct 25.0 L MCV 105.0 H MCH 29.4 MCHC 28.0 L RDW Std Deviation 70.4 H RDW Coeff of Tan 19.2 H Plt Count 150 MPV 11.8 Immature Gran % (Auto) 0.700 Neut % (Auto) 70.9 H Lymph % (Auto) 15.6 L Schleicher % (Auto) 10.0 Eos % (Auto) 2.6 Baso % (Auto) 0.2 Absolute Neuts (auto) 3.0 Absolute Lymphs (auto) 0.67 L Nucleated RBC % 0 Differential Comment SCANNED Polychromasia 1+ Hypochromasia 2+ Anisocytosis 2+ Microcytosis RARE Target Cells RARE PT Cancelled 16.3 H INR Cancelled 1.3 APTT Cancelled 25.8 Sodium 146 H Potassium 4.8 Chloride 113 H Carbon Dioxide 29.0 Anion Gap 4 L BUN 44 H Creatinine 1.46 H Estim Creat Clear Calc 87.35 Est GFR (MDRD) Af Amer 62 Est GFR (MDRD) Non-Af 51 L BUN/Creatinine Ratio 30.1 H Glucose 132 H Calcium 8.6 Total Bilirubin 0.70 AST 14 L ALT 16 Alkaline Phosphatase 85 Troponin I High Sens 23 B-Natriuretic Peptide 525.4 H Total Protein 6.5 Albumin 3.0 L Globulin 3.5 Albumin/Globulin Ratio 0.9 Urine Color Straw Urine Clarity Clear Urine pH 6.0 Ur Specific [place] 1.020 Urine Protein 30 H Urine Glucose (UA) Normal Urine Ketones Negative Urine Occult Blood Negative Urine Nitrite Negative Urine Bilirubin Negative Urine Urobilinogen Normal Ur Leukocyte Esterase Negative Urine RBC 0 SEEN Urine WBC 0 SEEN Ur Squamous Epith Cells 0 SEEN Urine Bacteria 0 SEEN Urine Mucus 0 SEEN 05/17/24 18:20 WBC RBC Hgb Hct MCV MCH MCHC RDW Std Deviation RDW Coeff of Tan Plt Count MPV Immature Gran % (Auto) Neut % (Auto) Lymph % (Auto) Schleicher % (Auto) Eos % (Auto) Baso % (Auto) Absolute Neuts (auto) Absolute Lymphs (auto) Nucleated RBC % Differential Comment Polychromasia Hypochromasia Anisocytosis Microcytosis Target Cells PT INR APTT Sodium Potassium Chloride Carbon Dioxide Anion Gap BUN Creatinine Estim Creat Clear Calc Est GFR (MDRD) Af Amer Est GFR (MDRD) Non-Af BUN/Creatinine Ratio Glucose Calcium Total Bilirubin AST ALT Alkaline Phosphatase Troponin I High Sens 21 B-Natriuretic Peptide Total Protein Albumin Globulin Albumin/Globulin Ratio Urine Color Urine Clarity Urine pH Ur Specific [place] Urine Protein Urine Glucose (UA) Urine Ketones Urine Occult Blood Urine Nitrite Urine Bilirubin Urine Urobilinogen Ur Leukocyte Esterase Urine RBC Urine WBC Ur Squamous Epith Cells Urine Bacteria Urine Mucus Radiography Chest X-Ray - ED: 1 View, Read by ED Physician, Read by Radiologist, Cardiomegaly and - (Cephalization and lower lobe atelectasis) Diagnostic Testing: Clinical Impression(s) from Imaging Studies Chest X-Ray 05/17/24 16:04 IMPRESSION: Diminished inspiratory effort and left lower lobe atelectasis or infiltrate as well as mild right basilar atelectasis. Electronically Signed: Zachary Bynum MD at 17:04 EST Reading Location ID and State: [facility] / [place] Tel , Service support , Forward chest x-ray was obtained. There is 1 view. On my independent interpretation, there is poor inspiratory effort. There is some cardiomegaly noted. There is some mild cephalization noted. There is lower lobe atelectasis. Radiologist also interpreted the x-rays and agrees. EKG Initial EKG: Attestation: I personally reviewed and interpreted this EKG as follows: Interpretation: Sinus Rhythm (89), RBBB, LAFB and Non-Specific ST Changes Comments: EKG was obtained. On my independent interpretation normal sinus rhythm with a rate of 89. [place] interval was normal at 182 ms. QRS interval was slightly prolonged and was 134 ms. QTc interval was slightly prolonged at 501 ms. There is left axis deviation at -58. There is a right bundle branch block pattern noted. There is a left anterior fascicular block pattern noted. There are nonspecific ST-T wave changes noted. Prior EKG tracings: available for review Prior: Unchanged (12/29/2019) Treatment and Re-Evaluation :: Mccarthy catheter will be inserted. Patient is given Lasix. Patient had good urine output after Lasix. Patient was advised of his findings. Patient was advised of need for hospitalization. Case was discussed with the hospitalist. She will admit the patient to PCU for diuresis. Patient and family understood and were agreeable with the plan. All questions were answered. Discharge Plan Triage Chief Complaint: Shortness of Breath ED Provider: Dereck Ayala Dx/Rx/DC Orders Clinical Impression: Congestive heart failure, Edema leg, Generalized weakness Prescriptions: No Action mecobalamin (vitamin B12) 1,000 mcg tablet,chewable 1,000 mcg PO DAILY levothyroxine 75 mcg tablet 50 mcg PO DAILY furosemide [Lasix] 20 mg tablet 40 mg PO DAILY Primary Care Provider: Angelic Monsalve Referrals: Angelic Monsalve MD [Primary Care Provider] - Print Language: Kiswahili Disposition Disposition: Acute Care Hospital [facility]
--- NOTE | 2024-05-17 16:04 | RAD_ITS ---
STUDY: X-RAY CHEST REASON FOR EXAM: Male, 63 years old. Dyspnea TECHNIQUE: AP portable COMPARISON: December 28, 2023 FINDINGS: There is less than optimal inspiratory effort. There is left lower lobe atelectasis or infiltrate as well as minor basilar atelectasis on the right. There is no demonstrated pleural abnormality. Heart appears prominent although artifactually exaggerated by radiographic technique Normal mediastinum and tay. Normal visualized pulmonary arteries. Normal visualized aortic arch and descending thoracic aorta. Dorsal spine demonstrates degenerative change. Normal visualized ribs, clavicles, and shoulders. There is no demonstrated abnormality of the visualized soft tissue structures of the upper abdomen. RAD/Chest 1 View (Portable) IMPRESSION: Diminished inspiratory effort and left lower lobe atelectasis or infiltrate as well as mild right basilar atelectasis. Electronically Signed: Zachary Bynum MD at 17:04 EST ,
--- NOTE | 2024-05-17 16:04 | EKG12_ITS ---
Test Reason : SOB Blood Pressure : */* mmHG Vent. Rate : 89 BPM Atrial Rate : 89 BPM P-R Int : 182 ms QRS Dur : 134 ms QT Int : 412 ms P-R-T Axes : 47 -58 21 degrees QTcB Int : 501 ms Normal sinus rhythm Right bundle branch block Left anterior fascicular block Bifascicular block Cannot rule out Inferior infarct , age undetermined Abnormal ECG Confirmed by Cade Solomon ([id number]), index editor ASHLEY HARP ([id number]) on 05/18/2024 10:00:43 AM Referred By: Confirmed By: Cade Solomon
[2024-05-17 16:17] LABS: Absolute Lymphocyte Count 0.67 X10^3/uL (0.83-4.51); Basophil# 0.01 X10^3/uL; Basophil% 0.2 % (0-1); Eosinophil# 0.11 X10^3/uL; Eosinophils% 2.6 % (0-5); Lymphocyte # 0.67 X10^3/ul (0.83-4.51); Lymphocyte % 15.6 % (19-41); Mean Corpuscular Hgb 29.4 pg (27.0-32.0); Mean Platelet Vol. 11.8 fl (6.2-12.0); Monocyte# 0.43 X10^3/uL; NRBC Flagged by Analyzer 0 % (0-5); Neutrophil # 3.04 X10^3/uL (2.7-7.7); Neutrophil % 70.9 % (47-70); POSITIVE MORPHOLOGY YES; Platelet Count 150 K/mm3 (150-450); RBC Distribution Width CV 19.2 % (11.6-14.6); RBC Distribution Width SD 70.4 fl (35.1-43.9); Red Blood Count 2.38 M/mm3 (4.6-6.2); White Blood Count 4.3 K/mm3 (4.4-11.0)
[2024-05-17 16:37] LABS: ALB/GLOB Ratio 0.9 RATIO (0.9-2.4); AST(SGOT) 14 U/L (15-37); Alanine Aminotransfer ALT/SGPT 16 U/L (16-61); Alkaline Phosphatase 85 U/L (45-117); Anion Gap 4 (5-15); BUN 44 mg/dL (7-18); BUN/Creat Ratio 30.1 RATIO (10-20); Calcium,Total 8.6 mg/dL (8.5-10.1); Chloride 113 mmol/L (98-107); Creatinine, Serum 1.46 mg/dL (0.70-1.30); EST Glomerular Filtration Rate 51 mL/min (>60); Est Glom Filt Rate - Afr Amer 62 mL/min (>60); Estimated Creatinine Clearance 87.35 ml/min; Globulin 3.5 g/dL (2.2-4.2); Glucose 132 mg/dL (74-106); Potassium 4.8 mmol/L (3.5-5.1); Protein, Total 6.5 g/dL (6.4-8.2); Sodium Level 146 mmol/L (136-145); Troponin-I HS (w/2H Reflex) 23 pg/mL (3.0-78.0)
[2024-05-17 16:45] LABS: Differential Indicated SCAN CRITERIA MET
[2024-05-17 16:52] LABS: BNP,B-Type NATRIURETIC PEPTIDE 525.4 pg/mL (0-100)
[2024-05-17] MEDS: Lidocaine Jelly 2% 20 ML Syringe (URO-JET) 1 APPLIC TOPICAL (16:53)
[2024-05-17] MEDS: Furosemide 40 MG/4 ML Vial IV (16:53)
[2024-05-17 16:55] LABS: Anisocytosis 2+; Differential Comment SCANNED
[2024-05-17 16:56] LABS: Hypochromasia 2+; Microcytosis RARE; Polychromasia 1+; Target Cells RARE
[2024-05-17 17:03] LABS: International Normalized Ratio 1.3; Prothrombin Time (Protime)PT. 16.3 SECONDS (11.7-14.9)
[2024-05-17 17:04] LABS: Partial Thromboplast Time 25.8 Seconds (24.1-36.2)
[2024-05-17 17:09] LABS: Bacteria 0 SEEN /hpf (None Seen); Mucous, Urine 0 SEEN /hpf (<or=2+); Red Blood Cells-Urine 0 SEEN /hpf (0-5); Squamous Epithelial Cells - UA 0 SEEN /hpf (0-5); White Blood Cells 0 SEEN /hpf (0-5)
[2024-05-17 17:12] LABS: Color, Urine Straw (Yellow); Glucose, Dipstick Normal (Normal); Ketone-Dipstick Negative (Negative); Leukocyte Esterase-Dipstick Negative /ul (Negative); Nitrite-Dipstick Negative (Negative); Occult Blood-Urine Negative /ul (Negative); Protein-Dipstick 30 mg/dl (Negative); Urine Bilirubin Dipstick Negative (Negative); Urine Clarity Clear (Clear); Urine Urobilinogen Normal (Normal)
[2024-05-17 18:13] LABS: Reflex Troponin-HS? (from REC) Y
[2024-05-17 18:54] LABS: Troponin-I HS 21 pg/mL (3.0-78.0)
--- NOTE | 2024-05-17 19:40 | HP.PCM.HOS_ITS ---
HPI - General General Date of Admission: 05/17/24 Date of Service: 05/17/24 Chief Complaint: Increasing swelling and SOB HPI Narrative JEFFREY CONNORS, is a 63 M w/ hx morbid obesity, hypothyroidism, anemia, edema on Lasix, suspected GLENN who presented [facility] ED 05/17/2024 with increasing shortness of breath and swelling in lower extremities over the past several days. He reports he has been struggling with anemia for a long time and had a hemoglobin of 5.4 and received 2 units packed red blood cells and 1 iron transfusion Wednesday and since that time has had increased lower extremity swelling and increased SOB. He called his PCP today who recommended he come to the ED for evaluation and treatment. In the ED patient had CXR that did appear to have some cephalization with an increased BNP of 525 and patient initially hypoxic 78% on room air. Patient given IV diuresis and hospitalist contacted for admission. Patient evaluated bedside, he reports he has been struggling with anemia and follows with Dr. Toussaint for this and thus far his not been able to find a source despite 2 colonoscopies and [address] Orozco on an outpatient basis. He did have an infusion as above on Wednesday since that time has had symmetric lower extremity swelling that has been worsening increased shortness of breath, does have chronic cough and he does not feel this is changed and denies any fever. He reports he has not been taking his Lasix because when he takes it he feels weak and also has to urinate frequently so not been compliant with this. Patient denies any changes in his stool, no abdominal pain, no nausea. [facility] Medical History (Updated 05/17/24 @ 18:[address] Dereck Ayala, DO) Arthritis Back pain Bladder disease Chronic anemia Chronic pain Compression fracture of L2 Diabetes Dietary restriction Edema Foot drop, right History of diabetes mellitus History of pain when walking Hypothyroid Injury of head and neck Iron deficiency anemia Muscle spasm Nocturia Non-smoker GLENN (obstructive sleep apnea) Osteoarthritis of left knee Pancytopenia Vitamin B12 deficiency Walker as ambulation aid Home Medications ?Medication ?Instructions ?Recorded ?Last Taken ?Type levothyroxine 75 mcg tablet 50 mcg PO DAILY 01/10/24 Unknown History mecobalamin (vitamin B12) 1,000 1,000 mcg PO DAILY 01/10/24 Unknown History mcg chewable tablet furosemide 20 mg tablet (Lasix) 40 mg PO DAILY 05/08/24 Unknown History Allergy/AdvReac Type Severity Reaction Status Date / Time hydromorphone (From Dilaudid) Allergy Severe Anaphylaxis Verified 05/08/24 16:03 Latex, Natural Rubber Allergy sores in Verified 05/08/24 16:03 mouth gabapentin AdvReac Intermediate HALLUCINATI Verified 05/08/24 16:03 ONS Family History Other Multiple sclerosis Surgical History (Updated 05/17/24 @ 15:[address] Dereck Ayala DO) History of total left knee replacement Hx of eye surgery Hx of left cataract extraction Hx of vertebroplasty Social History household members: spouse Smoking Status: Never smoker alcohol intake: never substance use type: does not use ROS ROS Narrative General: Denies fever/chills HENT: Denies headache, denies stuffy nose, denies sore throat EYES: Denies changes in vision Resp: Chronic cough, has been having increasing shortness of breath Cardiac: Denies chest pain GI: Denies abdominal pain, denies changes in bowel, denies nausea/vomiting : Denies changes in urination, does urinate frequently when he gets Lasix Extremity: Increasing bilateral lower extremity swelling MSK: Feels like he gets some generalized weakness when he takes Lasix Neuro: Denies any numbness/tingling Heme: Denies any bleeding or bruising Skin: Denies rashes Psychiatric: No complaints voiced Vital Signs Vital Signs Vital Signs: 05/17/24 15:40 05/17/24 15:46 05/17/24 16:04 Temperature 98 F Temperature Source Temporal Pulse Rate 98 94 Respiratory Rate 24 H 18 Respiratory Effort Blood Pressure 152/71 H Blood Pressure Mean 98 Pulse Ox 78 100 Oxygen Delivery Method Room Air Nasal Cannula Room Air Oxygen Flow Rate (L/min) 5 05/17/24 16:40 05/17/24 17:00 05/17/24 17:38 Temperature 98 F Temperature Source Oral Pulse Rate 99 89 Respiratory Rate 20 H 25 H Respiratory Effort Short of Breath Blood Pressure 122/73 H Blood Pressure Mean 89 Pulse Ox 92 94 Oxygen Delivery Method Nasal Cannula Nasal Cannula Oxygen Flow Rate (L/min) 2 5 05/17/24 18:00 05/17/24 19:00 05/17/24 19:16 Temperature 98.1 F 98.2 F 98.2 F Temperature Source Oral Oral Pulse Rate 91 90 88 Respiratory Rate 22 H 20 H 20 H Respiratory Effort Blood Pressure 144/77 H 140/62 H 120/89 H Blood Pressure Mean 99 88 99 Pulse Ox 94 90 90 Oxygen Delivery Method Nasal Cannula Nasal Cannula Oxygen Flow Rate (L/min) 5 3 Weight Weight: 172.41 kg Body Mass Index (BMI) 45.1 Physical Exam Narrative General: Alert, orienteds HEENT: Atraumatic, normocephalic Eyes: Anicteric, normal conjunctiva, extraocular movements grossly intact Neck: Supple Respiratory: Increased respiratory effort, diminished at the bases Cardiovascular: Regular rate and rhythm GI: Soft, nontender, nondistended Extremities: Bilateral 1+ lower extremity edema Musculoskeletal: Moving all extremities Neuro: No overt focal neurological deficits Skin: Chronic lower extremity changes Psych: Cooperative Results Lab / Micro Data 05/17/24 15:54 05/17/24 15:54 Labs: Laboratory Results - last 24 hr 05/17/24 15:54: WBC 4.3 L, RBC 2.38 L, Hgb 7.0 L, Hct 25.0 L, MCV 105.0 H, MCH 29.4, MCHC 28.0 L, RDW Std Deviation 70.4 H, RDW Coeff of Tan 19.2 H, Plt Count 150, MPV 11.8, Immature Gran % (Auto) 0.700, Neut % (Auto) 70.9 H, Lymph % (Auto) 15.6 L, [place] % (Auto) 10.0, Eos % (Auto) 2.6, Baso % (Auto) 0.2, Absolute Neuts (auto) 3.0, Absolute Lymphs (auto) 0.67 L, Nucleated RBC % 0, Differential Comment SCANNED, Polychromasia 1+, Hypochromasia 2+, Anisocytosis 2+, Microcytosis RARE, Target Cells RARE, PT Cancelled, INR Cancelled, APTT Cancelled, Sodium 146 H, Potassium 4.8, Chloride 113 H, Carbon Dioxide 29.0, A nion Gap 4 L, BUN 44 H, Creatinine 1.46 H, Estim Creat Clear Calc 87.35, Est GFR (MDRD) Af Amer 62, Est GFR (MDRD) Non-Af 51 L, BUN/Creatinine Ratio 30.1 H, G lucose 132 H, Calcium 8.6, Total Bilirubin 0.70, AST 14 L, ALT 16, Alkaline Phosphatase 85, Troponin I High Sens 23, B-Natriuretic Peptide 525.4 H, Total Protein 6.5, Albumin 3.0 L, Globulin 3.5, Albumin/Globulin Ratio 0.9 05/17/24 16:43: PT 16.3 H, INR 1.3, APTT 25.8 05/17/24 17:00: Urine Color Straw, Urine Clarity Clear, Urine pH 6.0, Ur Specific [place] 1.020, Urine Protein 30 H, Urine Glucose (UA) Normal, Urine Ketones Negative, Urine Occult Blood Negative, Urine Nitrite Negative, Urine Bilirubin Negative, Urine Urobilinogen Normal, Ur Leukocyte Esterase Negative, Urine RBC 0 SEEN, Urine WBC 0 SEEN, Ur Squamous Epith Cells 0 SEEN, Urine Bacteria 0 SEEN, Urine Mucus 0 SEEN 05/17/24 18:20: Troponin I High Sens 21 Imaging Radiology Impression Chest X-Ray 05/17/24 16:04 IMPRESSION: Diminished inspiratory effort and left lower lobe atelectasis or infiltrate as well as mild right basilar atelectasis. Electronically Signed: Zachary Bynum MD at 17:04 EST Reading Location ID and State: [facility] / [place] Tel , Service support , Assessment & Plan Assessment/Plan (1) Hypoxia: PLAN: Plan #Hypoxia 2/2 fluid overload due to noncompliance with Lasix after PRBC transfusion -Admit to telemetry -BNP 525 -CXR reviewed by both ED physician and myself and patient has blunting of both costophrenic angles and appears to have some aspects of vascular congestion -Continue IV lasix -Last echo 12/29/2023 demonstrated an EF of 65% and otherwise was not remarkable, unclear if there could be a component of diastolic dysfunction or pulmonary hypertension causing patient's fluid overload and need for Lasix -Repeat echo not ordered due to having 1 done within the past 6 months -Daily weights, I's and O's -Fluid restriction, heart healthy diet -Patient 78% on room air, still on 4 to 5 L in the ED saturating high 80s and low 90s when talking, unclear if the fluid overload accounts entirely for his hypoxia, will check COVID and respiratory panels, no white blood cell count elevation or fever or increased purulence of sputum to suspect an additional pneumonia -No unilateral swelling in legs, tachycardia or vital instability suggesting PE -If patient does not improve despite Lasix will need further investigation #JOSE RAUL -Cr 1.46, most recent Cr 0.99 -?Cardiorenal, diuresing -If not improving can obtain urine lytes/further workup #Anemia -Pt w/ chronic anemia -7.0 today in ED -Received 2uprbc and 1 iron transfusion on Wednesday -Following w/ Dr. Toussaint on outpt basis -Has had 2 colonoscopies and 1 endoscopy w/ Dr. De Jesus previously with no source found, pt recently referred to Dr. Molina for possible repeat endoscopy plus or minus capsule, supposed to see MOVE COORDINATOR in office tomorrow -Patient may also need outpatient biopsy per note from 05/08/2024 -Will check FOBT, if patient has significant drop/unable to maintain hemoglobin after transfusions and stabilization may need inpatient evaluation -Repeat hemoglobin in the a.m. -Patient denies any overt bleeding at this time #Hypothyroidism -Continue Synthroid #Morbid obesity -BMI documented as 45.1 kg/m? at time of admission -Complicates treatment, prognosis, outcomes -Recommend weight loss and lifestyle changes #DVT ppx: SCDs Maricel Pinon MD Charges/Coding Visit Charges Inpatient E&M: 11556 Init Hosp L2
[2024-05-18] VITALS (27 sets, daily range): BP systolic 91–187; BP diastolic 45–99; PULSE 69–113; RESP 6–20; TEMP 35.9–37.2; O2SAT 86–100; BMI 45.3
[2024-05-18] MEDS: Levothyroxine 50 MCG Tablet PO (05:32)
[2024-05-18 07:11] LABS: Absolute Lymphocyte Count 0.65 X10^3/uL (0.83-4.51); Basophil# 0.02 X10^3/uL; Basophil% 0.4 % (0-1); Eosinophil# 0.15 X10^3/uL; Eosinophils% 2.8 % (0-5); Hematocrit 25.9 % (40-54); Lymphocyte # 0.65 X10^3/ul (0.83-4.51); Lymphocyte % 12.2 % (19-41); Mean Corpuscular Hgb 29.2 pg (27.0-32.0); Mean Corpuscular Volume 107.9 fL (80-94); Monocyte# 0.46 X10^3/uL; Monocyte% 8.7 % (0-10); NRBC Flagged by Analyzer 0.9 % (0-5); Neutrophil # 3.95 X10^3/uL (2.7-7.7); Neutrophil % 74.4 % (47-70); POSITIVE MORPHOLOGY YES; Platelet Count 134 K/mm3 (150-450); RBC Distribution Width CV 19.1 % (11.6-14.6); RBC Distribution Width SD 73.4 fl (35.1-43.9); White Blood Count 5.3 K/mm3 (4.4-11.0)
[2024-05-18 07:18] LABS: Differential Indicated SCAN CRITERIA MET
[2024-05-18 07:39] LABS: Anion Gap 1 (5-15); BUN 41 mg/dL (7-18); BUN/Creat Ratio 31.8 RATIO (10-20); Calcium,Total 8.6 mg/dL (8.5-10.1); Chloride 112 mmol/L (98-107); Creatinine, Serum 1.29 mg/dL (0.70-1.30); EST Glomerular Filtration Rate 59 mL/min (>60); Est Glom Filt Rate - Afr Amer 72 mL/min (>60); Glucose 165 mg/dL (74-106); Magnesium 2.6 mg/dL (1.6-2.6); Potassium 4.8 mmol/L (3.5-5.1); Sodium Level 145 mmol/L (136-145)
[2024-05-18 08:10] LABS: Anisocytosis 2+
--- NOTE | 2024-05-18 08:12 | PCM.PN.HOSP ---
Reason for Visit Reason for Visit: Diagnoses Hypoxemia (05/17/24) Subjective Subjective Patient this a.m. significantly lethargic and fatigued although initially did arouse and would answer some questions appropriately reporting that he supposed to be on PAP therapy but is noncompliant. Given significant encephalopathy ABG was obtained with notable hypoxia and hypercarbia with BiPAP initiated and although repeat ABG was mildly improved it was not significant and patient was transition to the ICU with AVAPS attempt although eventually upon repeat ABG was not successful requiring intubation. Patient upon initial evaluation denied fevers, chills, nausea, emesis, abdominal pain, chest pain. He did report some dyspnea but not severe and noted worse with exertion. He does admit to increased peripheral edema. Objective Data Objective Data Vital Signs: Vital Signs Temp Pulse Resp BP Pulse Ox O2 Del Method O2 Flow Rate 97.8 F 90 18 131/62 H 95 Nasal Cannula 5 05/18/24 03:24 05/18/24 03:24 05/18/24 03:24 05/18/24 03:24 05/18/24 03:24 05/18/24 03:24 05/18/24 03:24 Oxygen Flow Rate (L/min) 5 Oxygen Delivery Method Nasal Cannula Weight: 377 lb 10.429 oz Body Mass Index (BMI) 44.7 Intake & Output: Intake and Output for Last 24 Hours 05/16/24 05/17/24 05/18/24 23:59 23:59 23:59 Intake Total 500 / 500 Output Total 1100 / 1900 1100 / 1100 Balance -1100 / -1650 -600 / -600 Lab / Micro Data 05/18/24 05:59 05/18/24 05:59 Labs: Laboratory Results - last 24 hr 05/17/24 15:54: WBC 4.3 L, RBC 2.38 L, Hgb 7.0 L, Hct 25.0 L, MCV 105.0 H, MCH 29.4, MCHC 28.0 L, RDW Std Deviation 70.4 H, RDW Coeff of Tan 19.2 H, Plt Count 150, MPV 11.8, Immature Gran % (Auto) 0.700, Neut % (Auto) 70.9 H, Lymph % (Auto) 15.6 L, [place] % (Auto) 10.0, Eos % (Auto) 2.6, Baso % (Auto) 0.2, Absolute Neuts (auto) 3.0, Absolute Lymphs (auto) 0.67 L, Nucleated RBC % 0, Differential Comment SCANNED, Polychromasia 1+, Hypochromasia 2+, Anisocytosis 2+, Microcytosis RARE, Target Cells RARE, PT Cancelled, INR Cancelled, APTT Cancelled, Sodium 146 H, Potassium 4.8, Chloride 113 H, Carbon Dioxide 29.0, Anion Gap 4 L, BUN 44 H, Creatinine 1.46 H, Estim Creat Clear Calc 87.35, Est GFR (MDRD) Af Amer 62, Est GFR (MDRD) Non-Af 51 L, BUN/Creatinine Ratio 30.1 H, Glucose 132 H, Calcium 8.6, Total Bilirubin 0.70, AST 14 L, ALT 16, Alkaline Phosphatase 85, Troponin I High Sens 23, B-Natriuretic Peptide 525.4 H, Total Protein 6.5, Albumin 3.0 L, Globulin 3.5, Albumin/Globulin Ratio 0.9 05/17/24 16:43: PT 16.3 H, INR 1.3, APTT 25.8 05/17/24 17:00: Urine Color Straw, Urine Clarity Clear, Urine pH 6.0, Ur Specific [place] 1.020, Urine Protein 30 H, Urine Glucose (UA) Normal, Urine Ketones Negative, Urine Occult Blood Negative, Urine Nitrite Negative, Urine Bilirubin Negative, Urine Urobilinogen Normal, Ur Leukocyte Esterase Negative, Urine RBC 0 SEEN, Urine WBC 0 SEEN, Ur Squamous Epith Cells 0 SEEN, Urine Bacteria 0 SEEN, Urine Mucus 0 SEEN 05/17/24 18:20: Troponin I High Sens 21 05/18/24 05:59: WBC 5.3, RBC 2.40 L, Hgb 7.0 L, Hct 25.9 L, MCV 107.9 H, MCH 29.2, MCHC 27.0 L, RDW Std Deviation 73.4 H, RDW Coeff of Tan 19.1 H, Plt Count 134 L, MPV 11.0, Immature Gran % (Auto) 1.500 H, Neut % (Auto) 74.4 H, Lymph % (Auto) 12.2 L, [place] % (Auto) 8.7, Eos % (Auto) 2.8, Baso % (Auto) 0.4, Absolute Neuts (auto) 4.0, Absolute Lymphs (auto) 0.65 L, Nucleated RBC % 0.9, Anisocytosis 2+, Sodium 145, Potassium 4.8, Chloride 112 H, Carbon Dioxide 31.0, Anion Gap 1 L, BUN 41 H, Creatinine 1.29, Estim Creat Clear Calc 98.50, Est GFR (MDRD) Af Amer 72, Est GFR (MDRD) Non-Af 59 L, BUN/Creatinine Ratio 31.8 H, Glucose 165 H, Calcium 8.6, Magnesium 2.6 Micro: Microbiology 05/17/24 22:30 Mucosa - Nasopharyngeal Respiratory Panel (PCR) - Final 05/17/24 22:49 Nasal Secretion SARS-CoV-2 Antigen (Rapid) - Final Radiography Diagnostic Testing: Radiology Impression Chest X-Ray 05/17/24 16:04 IMPRESSION: Diminished inspiratory effort and left lower lobe atelectasis or infiltrate as well as mild right basilar atelectasis. Electronically Signed: Zachary Bynum MD at 17:04 EST Reading Location ID and State: [address] [place] [address] Tel , Service support , Physical Exam Narrative Physical Examination: General: Awakens to stimuli but very lethargic, falling back asleep, oriented to self, place, year but when requesting month gives the year again, laying in the PCU bed, fatigued, no obvious distress but is encephalopathic. Skin: Normal color, normal turgor, no icterus, no cyanosis except for various staged ecchymoses, abrasions, significant bilateral lower extremity venous stasis skin changes. HEENT: AT/NC, EOMI, PERRLA, dry MM, no carotid bruits but difficult assessment given thickened neck, difficult to assess JVD also given thickened neck. Lungs: Significantly diminished, greater bases, mildly increased respiratory rate but at this time no evidence of any distress, difficult to discern any accessory muscle usage and no obvious abdominal breathing at this point, no obvious rales, rhonchi or wheezing but minimal and very distant likely given habitus. Heart: Tachycardic with regular rhythm; no gallop, rub audible. Abdomen: Soft, morbidly obese, NTTP, distant BS, difficult to discern distention given habitus. Extremities: No cyanosis, no clubbing, see skin, significant distal 3+ pitting edema. Neurological: Awakens to stimuli but very lethargic, falling back asleep, oriented to self, place, year but when requesting month gives the year again, laying in the PCU bed, fatigued, no obvious distress but is encephalopathic, cognitive function not baseline intact; pupils equally reactive to light and accommodation, cranial nerves grossly normal, moving all 4 extremities, no focal deficits, strength severely globally decreased given current presentation/encephalopathy. Psychiatric: Affect appears flat, encephalopathic, no acute evidence of depressive or anxiety feelings. Assessment & Plan Assessment/Plan (1) Congestive heart failure: QUALIFIERS: Heart failure type: unspecified Heart failure chronicity: acute Qualified Code(s): I50.9 - Heart failure, unspecified PLAN: Plan The patient is a 63 y/o M w/ PMHx: Diabetes mellitus type II, GLENN noncompliant with PAP therapy, Morbid obesity, Hypothyroidism, Chronic macrocytic anemia/chronic B12 deficiency/Fe deficiency anemia following with Dr. Rain, Chronic peripheral edema on lasix who presents to the [facility] ED on 05/17/24 with history of increasing dyspnea as well as worsening lower extremity swelling over the last several days with recent PRBC 2 unit administration and 1 iron transfusion the prior Wednesday secondary to hemoglobin of 5.4 with unfortunately noncompliance with his Lasix following prompting ED evaluation. #1. Acute metabolic encephalopathy secondary to acute hypoxic and hypercarbic respiratory failure suspected multifactorial, likely component of untreated GLENN, hypoventilation morbid obesity syndrome as well as some concern still for possible HF with preserved EF although per discussion with cardiology lower suspicion: Initially admitted to the PCU and initiated on IV twice daily Lasix regimen however minimal urine output and weight had actually increased, transition to Lasix lower dose drip with cardiology consultation requested but 05/18/2024 patient became encephalopathic, ABG obtained with notable hypoxia and hypercapnia with BiPAP trial and eventual transition to the ICU with AVAPS trial unsuccessful. 05/18/2024 late afternoon patient eventually intubated, sedated. Repeat limited echocardiogram per cardiology recommendation with study unfortunately difficult with mild concentric LVH, LVEF 70%, trace MV regurgitation, AV not well-visualized in short axis possibly sclerotic, left atrium severely enlarged. Given this current status per discussion with cardiology we will continue with plan for 2 unit PRBC as noted, will continue current level of Lasix continuous drip and will plan to obtain CTA chest and initiate also heparin therapy with baby aspirin concurrently however given his underlying anemia if no findings will transition off. Allergist Immunologist consultation pending and per discussion with cardiology patient may require [facility] for further evaluation potentially in the Religion Department Chair. TSH, T4 normal. Magnesium normal. #2. Chronic macrocytic anemia/iron deficiency anemia: Patient with significant ongoing issues with anemia, following with oncology Dr. Toussaint with aggressive outpatient evaluation for source including upper and lower endoscopies with Dr. Orozco with outpatient transfusions as noted, current plan for outpatient follow-up with Dr. Molina with possible repeat endoscopy versus capsule endoscopy, FOBT requested upon admission. Admission 05/17/2024 hemoglobin 7.0, MCV 105 with repeat 05/18/2024 hemoglobin 7.0, MCV 107.9. Patient is on chronic B12 supplementation also of note. Given persistent anemia in the setting with now intubated status will plan 2 unit PRBC administration with repeat H&H following. #3. Diabetes mellitus type II: Per current list does not appear to be on any diabetic regimen, last hemoglobin A1c noted 06/17/2023 6.7%, will repeat in given his current status will maintain on q6h accu checks w/ ISS. #4. Morbid Obesity: Weight loss and lifestyle changes encouraged. #5. Hypothyroidism: We will continue patient on levothyroxine regimen, TSH 1.550, free T40.97, normal range. #6. GLENN: Noncompliant with PAP therapy as noted, currently intubated and sedated. #7. DVT prophylaxis: As noted initiating on heparin drip cautiously given his underlying anemia pending CTA chest. #8. CODE STATUS: Full code. Charges/Coding Visit Charges Inpatient E&M: 88203 Subs Hosp L3
[2024-05-18 08:53] LABS: T4 Free Direct 0.97 ng/dL (0.76-1.46)
[2024-05-18] MEDS: Furosemide 40 MG/4 ML Vial IV (09:29)
--- NOTE | 2024-05-18 09:50 | ECHOLC_ITS ---
Reason For Study: CHF Procedure This was a limited 2D transthoracic echocardiogram. The study was technically difficult. Contrast injection was performed. Patient imaged laying towards right side. Exam performed portable in patient room. Left Ventricle Mild concentric left ventricular hypertrophy. Normal LV size. The left ventricular ejection fraction is 70 %. Unable to assess diastolic function based on available data. Right Ventricle Normal right ventricle. Atria The left atrium is severely enlarged. Normal right atrium. Mitral Valve Mitral annular calcification noted. Trace mitral valve regurgitation. Tricuspid Valve The tricuspid valve is not well visualized. Aortic Valve Aortic valve not well-visualized in short axis. Appears sclerotic. Pulmonic Valve The pulmonic valve is not well visualized. Great Vessels The aortic root is not well visualized. Pericardium/Pleural No pericardial effusion. Medication Diluted definity 1.5ml given slow IV push to enhance endocardial definition. MMode/2D Measurements & Calculations LVIDd: 5.6 cm IVSd: 1.3 cm LA dimension: 5.1 cm LVIDs: 3.4 cm LVPWd: 1.1 cm RVDd: 5.4 cm FS: 39.0 % LAV(MOD-bp): 103.7 ml LVAd ap4: 45.1 cm2 SV(MOD-sp4): 111.2 ml LAV(MOD-bp) Indexed: 35.1 ml/m2 LVLd ap4: 9.9 cm SI(MOD-sp4): 37.6 ml/m2 LAV(MOD-sp2): 107.9 ml EDV(MOD-sp4): 169.0 ml LAV(MOD-sp4): 99.9 ml EDV(sp4-el): 174.6 ml LVAs ap4: 24.3 cm2 LVLs ap4: 8.3 cm ESV(MOD-sp4): 57.8 ml ESV(sp4-el): 60.1 ml EF(MOD-sp4): 65.8 % EF(sp4-el): 65.6 % SV(sp4-el): 114.5 ml LA A4 area: 29.6 cm2 RA A4 area: 25.1 cm2 TAPSE: 2.0 cm Doppler Measurements & Calculations PA V2 max: 125.5 cm/sec ECHO/Echo Limited w/Contrast Interpretation Summary The study was technically difficult with suboptimal images. Mild concentric left ventricular hypertrophy. The left ventricular ejection fraction is 70 %. Mitral annular calcification noted. Trace mitral valve regurgitation. Aortic valve not well-visualized in short axis. Appears sclerotic. The left atrium is severely enlarged. Ordering Physician: Grace Allen Performed By: Allen Bower RCS
[2024-05-18] MEDS: Furosemide 500 MG in Empty Viaflex 50 mL 1 EACH CONT INF (10:35)
[2024-05-18 11:10] LABS: Allen Test Positive; Base Excess 2 mmol/L (-2 to +2); Bicarbonate 31.9 mmol/L (22-26); Blood Gas Specimen Type ART; Mode Not entered; O2 Delivery Device HFNC; PO2 45 mmHG (75-100); SITE R Radial; SO2 60 % (95-99); Total Carbon Dioxide 35 mmol/L; pCO2 108.3 mmHg (35-45); pH 7.08 (7.35-7.45)
--- NOTE | 2024-05-18 11:22 | NURSING ---
Critical ABG results relayed to Dr. Allen. RT placing pt on bipap. called and updated on results and tx plan and possibility of need to transfer to ICU/mech if not improving.
[2024-05-18] MEDS: 0.9% Saline Lock 10 ML Syringe IV (11:34)
[2024-05-18 13:28] LABS: Allen Test Positive; Base Excess 2 mmol/L (-2 to +2); Bicarbonate 31.6 mmol/L (22-26); Blood Gas Specimen Type ART; Mode BiLevel; O2 Delivery Device BiPAP; PEEP 8; PO2 59 mmHG (75-100); RR 12; SITE R Radial; SO2 77 % (95-99); Total Carbon Dioxide 35 mmol/L; pCO2 99.5 mmHg (35-45); pH 7.11 (7.35-7.45)
--- NOTE | 2024-05-18 14:09 | NURSING ---
Report called to Kandy in ICU.
--- NOTE | 2024-05-18 14:13 | NURSING ---
Updated pt's that he will be moving to ICU 5.
[2024-05-18 15:31] LABS: Allen Test Positive; Base Excess 2 mmol/L (-2 to +2); Bicarbonate 32.4 mmol/L (22-26); Blood Gas Specimen Type ART; Comment avaps; Mode Not entered; O2 Delivery Device BiPAP; PEEP 12; PO2 96 mmHG (75-100); RR 16; SITE L Radial; SO2 92 % (95-99); Total Carbon Dioxide 36 mmol/L; pCO2 112.7 mmHg (35-45); pH 7.07 (7.35-7.45)
--- NOTE | 2024-05-18 15:48 | PN.HOSP_ITS ---
Hospitalist Note Intubation Note: Patient with evidence of worsening respiratory status with despite usage of BiPAP and eventual transition to the ICU with transition to AVAPS not clinically improving and deteriorating decision for intubation which was discussed with structural metal fabricator apprentice. Medications administered: Etomidate, Versed, succinylcholine. ETT size: 8 Patient intubated in standard fashion with visualization of the vocal cords and passage of the ETT. Positioning verified with auscultation. Post-intubation CXR requested. Patient maintained in the ICU with structural metal fabricator apprentice aware with planned consultation. Patient also recently evaluated just prior to intubation by cardiology and still uncertain the etiology for his current presentation with lower suspicion for cardiology for heart failure although unable to determine if potentially diastolic component with echocardiogram difficult to obtain given habitus. Will continue intubated, sedated status and at this point following discussion with cardiology will obtain CTA chest and initiate on heparin therapy in the interim with continued Lasix drip but will not increase it. Per discussion with cardiology patient may require [place] potentially in the cardiac [employer] Documents Closer and he will sign out to Dr. Robles who takes over 05/19/2024. Procedures Hospitalists Procedures: 32443 Insert Emergency Airway
--- NOTE | 2024-05-18 16:07 | CON.PCM.CA_ITS ---
Assessment & Plan Assessment/Plan (1) Congestive heart failure: QUALIFIERS: Heart failure type: unspecified Heart failure chronicity: acute Qualified Code(s): I50.9 - Heart failure, unspecified PLAN: The patient is echocardiogram is not consistent with an a dilated cardiomyopathy. His ejection fraction is normal at 65 to 70% the RV is also normal. However Doppler measurements are not available due to his body habitus and therefore diastolic function and right ventricular systolic pressures cannot be estimated. Patient's laboratory evaluation makes it difficult to ascertain if this is primarily volume overload or respiratory depression from his obstructive sleep apnea. He was able to be oxygenated with BiPAP but he remained hypercapnic and lethargic with a pH of 7.07 and a pCO2 of 112. He is now being intubated. The patient remains on an IV Lasix drip he has had some diuresis and his BUN and creatinine have actually improved since admission. He remains with a high ratio of BUN 41 creatinine of 1.29. His BNP upon admission was 524 and earlier this summer it was in the 200 range. The patient is morbidly obese which makes the BNP artificially depressed. Given the patient's body habitus a pulmonary embolus is possible although there patient does not have RV failure on his echo done today. But this is a limited echo due to his body habitus. I do not feel that his cardiovascular status can explains this hypercapnic respiratory failure. If his CTA rules out pulmonary embolus and the patient continues to deteriorate then invasive hemodynamic monitoring would be indicated to define his intravascular pressures and volume status. (2) SOB (shortness of breath): PLAN: Patient originally presented with shortness of breath that is multifactorial in his home environment including his chronic severe anemia with from his pancytopenia, his obstructive sleep apnea which he does not treat and his morbid obesity body habitus. PLAN: Plan 1. Agree with plan CTA to rule out pulmonary embolus. 2. Would prophylactically treat with full dose IV heparin. 3. Continue IV diuresis at this point in time. 4. Continue ventilator treatment per the primary service. 5. Dr. Laguerre will be taken over the service tomorrow morning. HPI Consult Data Date of Consult: 05/18/24 HPI Narrative Reason for Consultation: Shortness of breath HPI Narrative: JEFFREY CONNORS, is a 63 M who presents with progressive shortness of breath and a history of longstanding severe anemia with hemoglobin is being low is 5.4. He recently received 2 units of packed red blood cells and iron infusion on May 17, 2024. After that time he became increasingly short of breath he has noticed a significant weight gain he has a history of obstructive sleep apnea untreated in the home environment. He is now admitted with hypoxic hypercapnic respiratory failure. The patient was initially treated with BiPAP but is failed to turn around and is now being intubated in the intensive care unit. The patient is EKG shows a normal sinus rhythm with a right bundle branch block and left anterior fascicular block there is a question of an old inferior wall infarct. An echocardiogram done today showed an ejection fraction of 65 to 70% with mild concentric left ventricular prophy. The RV was read as normal there was severely left atrial enlargement with a normal right atrium. The mitral valve had mitral and calcification with trace mitral regurgitation aortic valve was sclerotic but not stenotic by visual estimate. There were no pericardial effusion documented. This was a poor echo windows due to the patient's body habitus andDoppler flows were accessible. We were unable to estimate the right ventricular systolic pressure or any gradients across the aortic valve. Currently the patient is hypercapnic with the most recent pCO2 being 112. He is not responsive to verbal stimuli he does respond somewhat to physical movement of his arms. No other history is obtainable from the patient. The patient does not have a history of smoking he does have a history of pancytopenia. [facility] Medical History Pancytopenia Back pain GLENN (obstructive sleep apnea) Hypothyroid Edema Nocturia Vitamin B12 deficiency Muscle spasm Iron deficiency anemia History of diabetes mellitus Chronic anemia Compression fracture of L2 Osteoarthritis of left knee Diabetes Bladder disease Dietary restriction Injury of head and neck History of pain when walking Walker as ambulation aid Foot drop, right Arthritis Chronic pain Non-smoker Home Medications ?Medication ?Instructions ?Recorded ?Last Taken ?Type levothyroxine 75 mcg tablet 50 mcg PO DAILY 01/10/24 Unknown History mecobalamin (vitamin B12) 1,000 1,000 mcg PO DAILY multivitamin 01/10/24 05/17/24 History mcg chewable tablet furosemide 20 mg tablet (Lasix) 40 mg PO DAILY Diuretic 05/08/24 05/16/24 History Allergy/AdvReac Type Severity Reaction Status Date / Time hydromorphone (From Dilaudid) Allergy Severe Anaphylaxis Verified 05/17/24 21:56 gabapentin AdvReac Intermediate HALLUCINATI Verified 05/17/24 21:56 ONS Family History Other Multiple sclerosis Surgical History Hx of vertebroplasty History of total left knee replacement Hx of left cataract extraction Hx of eye surgery Social History household members: spouse Smoking Status: Never smoker alcohol intake: never substance use type: does not use ROS Review of Systems ROS Unobtainable: due to encephalopathy Physical Exam Narrative Patient is unresponsive and lying flat in the ICU bed. BiPAP is in place. He is being prepared for intubation. Const Constitutional Narrative: Patient is extremely lethargic and minimally responsive to verbal stimuli he does respond to physical maneuvers. The patient is morbidly obese. HEENT HEENT Narrative: Patient has a very thick neck and BiPAP is in place. Neck no carotid bruits Neck Narrative: Extremely large thick neck. Resp Effort and Inspection: uses accessory muscles Auscultation: diminished lung sounds diffuse Cardio Cardio Narrative: Very distant heart tones due to the extreme body habitus. Rate: tachycardic Rhythm: regular rhythm Heart Sounds: S1 normal and S2 normal; Negative for click, gallop, murmur or rub GI GI Narrative: Morbidly obese but soft to palpation. Extremity General Extremity: edema bilateral lower extremity Details: mild Neuro Neuro Narrative: Patient is lethargic Psych Psych Narrative: Unable to assess Risk Stratification Risk Stratification Applicable: No Charges/Coding Visit Charges Inpatient E&M: 67840 Init Hosp L2 Objective Data Vital Signs: Vital Signs Temp Pulse Resp BP Pulse Ox O2 Del Method O2 Flow Rate 97.0 F L 100 17 126/45 H 93 Bi-pap 4 05/18/24 12:30 05/18/24 12:30 05/18/24 12:30 05/18/24 12:30 05/18/24 12:30 05/18/24 14:30 05/18/24 09:16 FiO2 45 05/18/24 12:30 Oxygen Flow Rate (L/min) 4 Oxygen Delivery Method Bi-pap Weight: 384 lb 1.606 oz Body Mass Index (BMI) 45.3 Intake & Output: Intake and Output for Last 24 Hours 1105/17/24 05/18/24 23:59 23:59 23:59 Intake Total 500 / 500 Output Total 1100 / 1900 1450 / 1450 Balance -1100 / -1650 -950 / -950 Lab / Micro Data Attestation: I reviewed the patient's lab results. 05/18/24 05:59 05/18/24 05:59 Labs: Laboratory Results - last 24 hr 05/17/24 15:54: WBC 4.3 L, RBC 2.38 L, Hgb 7.0 L, Hct 25.0 L, MCV 105.0 H, MCH 29.4, MCHC 28.0 L, RDW Std Deviation 70.4 H, RDW Coeff of Tan 19.2 H, Plt Count 150, MPV 11.8, Immature Gran % (Auto) 0.700, Neut % (Auto) 70.9 H, Lymph % (Auto) 15.6 L, Jefferson % (Auto) 10.0, Eos % (Auto) 2.6, Baso % (Auto) 0.2, Absolute Neuts (auto) 3.0, Absolute Lymphs (auto) 0.67 L, Nucleated RBC % 0, Differential Comment SCANNED, Polychromasia 1+, Hypochromasia 2+, Anisocytosis 2+, Microcytosis RARE, Target Cells RARE, PT Cancelled, INR Cancelled, APTT Cancelled, Sodium 146 H, Potassium 4.8, Chloride 113 H, Carbon Dioxide 29.0, A nion Gap 4 L, BUN 44 H, Creatinine 1.46 H, Estim Creat Clear Calc 87.35, Est GFR (MDRD) Af Amer 62, Est GFR (MDRD) Non-Af 51 L, BUN/Creatinine Ratio 30.1 H, G lucose 132 H, Calcium 8.6, Total Bilirubin 0.70, AST 14 L, ALT 16, Alkaline Phosphatase 85, Troponin I High Sens 23, B-Natriuretic Peptide 525.4 H, Total Protein 6.5, Albumin 3.0 L, Globulin 3.5, Albumin/Globulin Ratio 0.9 05/17/24 16:43: PT 16.3 H, INR 1.3, APTT 25.8 05/17/24 17:00: Urine Color Straw, Urine Clarity Clear, Urine pH 6.0, Ur Specific [place] 1.020, Urine Protein 30 H, Urine Glucose (UA) Normal, Urine Ketones Negative, Urine Occult Blood Negative, Urine Nitrite Negative, Urine Bilirubin Negative, Urine Urobilinogen Normal, Ur Leukocyte Esterase Negative, Urine RBC 0 SEEN, Urine WBC 0 SEEN, Ur Squamous Epith Cells 0 SEEN, Urine Bacteria 0 SEEN, Urine Mucus 0 SEEN 05/17/24 18:20: Troponin I High Sens 21 05/18/24 05:59: WBC 5.3, RBC 2.40 L, Hgb 7.0 L, Hct 25.9 L, MCV 107.9 H, MCH 29.2, MCHC 27.0 L, RDW Std Deviation 73.4 H, RDW Coeff of Tan 19.1 H, Plt Count 134 L, MPV 11.0, Immature Gran % (Auto) 1.500 H, Neut % (Auto) 74.4 H, Lymph % (Auto) 12.2 L, Jefferson % (Auto) 8.7, Eos % (Auto) 2.8, Baso % (Auto) 0.4, Absolute Neuts (auto) 4.0, Absolute Lymphs (auto) 0.65 L, Nucleated RBC % 0.9, Anisocytosis 2+, Sodium 145, Potassium 4.8, Chloride 112 H, Carbon Dioxide 31.0, Anion Gap 1 L, BUN 41 H, Creatinine 1.29, Estim Creat Clear Calc 98.50, Est GFR (MDRD) Af Amer 72, Est GFR (MDRD) Non-Af 59 L, BUN/Creatinine Ratio 31.8 H, G lucose 165 H, Calcium 8.6, Magnesium 2.6, TSH 1.550, Free T4 0.97 Micro: Microbiology 05/17/24 22:30 Mucosa - Nasopharyngeal Respiratory Panel (PCR) - Final 05/17/24 22:49 Nasal Secretion SARS-CoV-2 Antigen (Rapid) - Final ABG Data ABG results: ABG 05/18/24 05/18/24 05/18/24 11:03 13:23 15:27 Specimen Type ART ART ART Sample Site R Radial R Radial L Radial pH 7.08 L* 7.11 L* 7.07 L* Bicarbonate Actual 31.9 H 31.6 H 32.4 H Total CO2 35 35 36 Base Excess 2 2 2 O2 Saturation 60 L 77 L 92 L O2 % 6.0 45.0 45.0 ABG pCO2 108.3 H* 99.5 H* 112.7 H* ABG pO2 45 L 59 L 96 Star Test Positive Positive Positive Respiration Rate 12 16 O2 Delivery Device HFNC BiPAP BiPAP Vent Mode Not entered BiLevel Not entered Tidal Volume 500.0 POC PEEP 8 12 Crit Call To/Read Back Yes Yes Yes Blood Gas Notified Whom mikey JOHNSON Blood Gas Notified Time 11:06:19 13:26:02 15:29:43 Clinical Comments avaps Rhythm Strip Rhythm Strip: Sinus Rhythm Rate: 90 Ectopy: None Cardiology Labs/Tests 05/17/24 15:54: WBC 4.3 L, RBC 2.38 L, Hgb 7.0 L, Hct 25.0 L, MCV 105.0 H, MCH 29.4, MCHC 28.0 L, Plt Count 150, MPV 11.8, Immature Gran % (Auto) 0.700, Neut % (Auto) 70.9 H, Lymph % (Auto) 15.6 L, Jefferson % (Auto) 10.0, Eos % (Auto) 2.6, Baso % (Auto) 0.2, Absolute Neuts (auto) 3.0, Nucleated RBC % 0, PT Cancelled, INR Cancelled, APTT Cancelled, Sodium 146 H, Potassium 4.8, Chloride 113 H, Carbon Dioxide 29.0, Anion Gap 4 L, BUN 44 H, Creatinine 1.46 H, Est GFR (MDRD) Af Amer 62, Est GFR (MDRD) Non-Af 51 L, BUN/Creatinine Ratio 30.1 H, Glucose 132 H, Calcium 8.6, Total Bilirubin 0.70, B-Natriuretic Peptide 525.4 H 05/17/24 16:43: PT 16.3 H, INR 1.3, APTT 25.8 05/17/24 17:00: Urine Color Straw, Urine Clarity Clear, Urine pH 6.0, Ur Specific [place] 1.020, Urine Protein 30 H, Urine Glucose (UA) Normal, Urine Ketones Negative, Urine Occult Blood Negative, Urine Nitrite Negative, Urine Bilirubin Negative, Urine Urobilinogen Normal, Ur Leukocyte Esterase Negative, Urine RBC 0 SEEN, Urine WBC 0 SEEN 05/18/24 05:59: WBC 5.3, RBC 2.40 L, Hgb 7.0 L, Hct 25.9 L, MCV 107.9 H, MCH 29.2, MCHC 27.0 L, Plt Count 134 L, MPV 11.0, Immature Gran % (Auto) 1.500 H, N eut % (Auto) 74.4 H, Lymph % (Auto) 12.2 L, Jefferson % (Auto) 8.7, Eos % (Auto) 2.8, Baso % (Auto) 0.4, Absolute Neuts (auto) 4.0, Nucleated RBC % 0.9, Sodium 145, Potassium 4.8, Chloride 112 H, Carbon Dioxide 31.0, Anion Gap 1 L, BUN 41 H, Creatinine 1.29, Est GFR (MDRD) Af Amer 72, Est GFR (MDRD) Non-Af 59 L, B UN/Creatinine Ratio 31.8 H, Glucose 165 H, Calcium 8.6, Magnesium 2.6 05/18/24 11:03: pH 7.08 L*, Bicarbonate Actual 31.9 H, Base Excess 2, O2 Saturation 60 L, ABG pCO2 108.3 H*, ABG pO2 45 L, Star Test Positive 05/18/24 13:23: pH 7.11 L*, Bicarbonate Actual 31.6 H, Base Excess 2, O2 Saturation 77 L, ABG pCO2 99.5 H*, ABG pO2 59 L, Star Test Positive 05/18/24 15:27: pH 7.07 L*, Bicarbonate Actual 32.4 H, Base Excess 2, O2 Saturation 92 L, ABG pCO2 112.7 H*, ABG pO2 96, Star Test Positive Rhythm: EKG: ECHO: Stress Test: Cardiac Cath: PCI: CT Surgery: Holter monitor: EPS: PPM: CXR: Chest CT Scan: Radiography Diagnostic Testing: Radiology Impression Chest X-Ray 05/17/24 16:04 IMPRESSION: Diminished inspiratory effort and left lower lobe atelectasis or infiltrate as well as mild right basilar atelectasis. Electronically Signed: Zachary Bynum MD at 17:04 EST Reading Location ID and State: [facility] / [place] Tel , Service support , Echocardiogram 05/18/24 09:50 Interpretation Summary The study was technically difficult with suboptimal images. Mild concentric left ventricular hypertrophy. The left ventricular ejection fraction is 70 %. Mitral annular calcification noted. Trace mitral valve regurgitation. Aortic valve not well-visualized in short axis. Appears sclerotic. The left atrium is severely enlarged. Ordering Physician: Grace Allen Performed By: Allen Bower RCS
[2024-05-18] MEDS: Etomidate 20 MG/10 ML Vial IV (16:22)
[2024-05-18] MEDS: Succinylcholine Chloride 200 MG/10 ML SYRINGE 100 MG IV (16:22)
[2024-05-18] MEDS: Midazolam 2 MG/2 ML Syringe 4 MG IV (16:22)
[2024-05-18] MEDS: Propofol 10MG/Ml 1,000 MG/100 ML Bottle 10.5 MG CONT INF (16:23)
--- NOTE | 2024-05-18 16:23 | CT_ITS ---
EXAM: CT ANGIOGRAPHY CHEST WITHOUT AND WITH INTRAVENOUS CONTRAST CLINICAL INDICATION: suspected PE TECHNIQUE: Helically acquired angiography images were obtained of the chest without and with intravenous contrast. This CT exam was performed using one or more of the following dose reduction techniques: automated exposure control, adjustment of the mA and/or kV according to patient size, and/or use of iterative reconstruction technique. MIP reconstructed images were created and reviewed. CONTRAST: IV 100mL [id number] RADIATION DOSE: CTDIvol = 19.79 mGy, DLP = 574.29 mGy-cm COMPARISON: No relevant prior studies available. FINDINGS: LIMITATIONS: Markedly limited by patient size. This causes marked artifact and decreases resolution. Also limited by suboptimal contrast bolus. PULMONARY ARTERIES: Suboptimal contrast bolus and enhancement. Normal in caliber. No evidence of major or central pulmonary embolism. Segmental and subsegmental pulmonary emboli cannot be excluded. AORTA: Unremarkable. Normal in caliber. No evidence of dissection. GREAT VESSELS OF AORTIC ARCH: Unremarkable. Normal in caliber. No evidence of dissection. LUNGS AND PLEURAL SPACES: There are low lung volumes. There are prominent areas of consolidation in both lower lobes, especially the right consistent with atelectasis and/or infiltrates. Small right pleural effusion. Trace left pleural effusion. No mass. No pneumothorax. HEART: Unremarkable. Heart size is normal. No pericardial effusion. No significant coronary artery calcifications. MEDIASTINUM: Unremarkable. No mediastinal or hilar adenopathy. Esophagus is unremarkable. No hiatal hernia. THYROID: Unremarkable. No thyroid lesions. BONES/JOINTS: Degenerative changes of the spine. Kyphoplasty of T12. No suspicious lytic or blastic abnormality. TUBES, LINES AND DEVICES: Endotracheal tube terminates approximately 7.5 cm above the dayana. Nasogastric tube terminates in the proximal stomach. CT/CTA Chest W/WO Contrast IMPRESSION: 1. Very limited by patient size. Also Technically inadequate exam for confirming or excluding pulmonary emboli as indicated above. Improper bolus and timing. No definite major or central PE seen. 2. Very low lung volumes with prominent consolidation in both lower lobes worse on the right. Electronically Signed: Maulik Urias MD at 18:17 EST ,
[2024-05-18] MEDS: fentaNYL drip 100 ML 5 MCG CONT INF (16:24)
--- NOTE | 2024-05-18 16:35 | RAD_ITS ---
ACR Level 3 findings have been noted. An addendum which confirms receipt of the report will follow. STUDY: X-RAY CHEST REASON FOR EXAM: Male, 63 years old. To confirm ET placement -- TECHNIQUE: Single AP portable view of the chest. COMPARISON: 05/17/2024. FINDINGS: Endotracheal tube terminates 9.5 cm above the dayana, above the level of the clavicles. Nasogastric tube terminates in the fundus of the stomach. Moderate lung volumes. Ill-defined patchy pulmonary opacities of the mid and lower lung wylie and in the lower left lung base. Cannot exclude small effusions. There is moderate cardiac enlargement. Normal mediastinum and tay. Normal visualized pulmonary arteries. Normal visualized aortic arch and descending thoracic aorta. Normal visualized thoracic spine. Normal visualized ribs, clavicles, and shoulders. There is no demonstrated abnormality of the visualized soft tissue structures of the upper abdomen. RAD/Chest 1 View (Portable) IMPRESSION: Endotracheal tube terminates 9.5 cm above the dayana and nasogastric tube terminates in the fundus of the stomach. Multiple mild patchy pulmonary opacities of both lungs worse on the right. The Nonstandard Physician Communication protocol was initiated. Electronically Signed: Maulik Urias MD at 17:28 EST ,
[2024-05-18 18:33] LABS: International Normalized Ratio 1.3; Prothrombin Time (Protime)PT. 16.4 SECONDS (11.7-14.9)
[2024-05-18] MEDS: HEPARIN/D5w 25,000 UNITS 25,000 UNITS/250 ML IV.SOLN. 10 UNITS CONT INF (18:33)
[2024-05-18 18:34] LABS: Partial Thromboplast Time 30.8 Seconds (24.1-36.2)
[2024-05-18] MEDS: Heparin Injection (Vial) 5,000 UNIT/ML VIAL 4000 UNIT IV (18:34)
[2024-05-18 18:38] LABS: CPK Total, Creatine Kinase 52 U/L (39-308); Triglycerides 66 mg/dL
[2024-05-18 18:57] LABS: Hemoglobin A1c 5.6 % (3.8-5.6)
[2024-05-18 19:51] LABS: Allen Test Positive; Base Excess 7 mmol/L (-2 to +2); Bicarbonate 32.4 mmol/L (22-26); Blood Gas Specimen Type ART; Mode AC; O2 Delivery Device Adult Vent; PEEP 5; PO2 80 mmHG (75-100); RR 16; SITE R Radial; SO2 95 % (95-99); Total Carbon Dioxide 34 mmol/L; pCO2 57.8 mmHg (35-45); pH 7.36 (7.35-7.45)
[2024-05-18] MEDS: Propofol 10MG/Ml 1,000 MG/100 ML Bottle 26.1 MG CONT INF (20:15)
[2024-05-18] MEDS: Chlorhexidine 15 ML PO (20:57)
[2024-05-18] MEDS: Pantoprazole Sodium 40 MG in 0.9% Normal Saline (100mL MB+) 100 ML 330 MG IV (20:57)
[2024-05-18] MEDS: Metoprolol Tartrate 25 MG Tablet 12.5 MG PO (22:11)
[2024-05-18] MEDS: Atorvastatin Calcium 80 MG Tablet PO (22:11)
[2024-05-19] VITALS (43 sets, daily range): BP systolic 95–144; BP diastolic 42–96; PULSE 62–85; RESP 10–21; TEMP 35.8–36.3; O2SAT 60–100; BMI 44.4
[2024-05-19 00:08] LABS: Bedside Glucose 112 mg/dL (74-106)
[2024-05-19 00:47] LABS: Hematocrit 24.2 % (40-54); Hemoglobin 6.8 g/dL (13.0-16.5)
[2024-05-19 01:05] LABS: Partial Thromboplast Time 45.9 Seconds (24.1-36.2)
[2024-05-19] MEDS: Propofol 10MG/Ml 1,000 MG/100 ML Bottle 15.7 MG CONT INF ×2 (01:33→21:41)
[2024-05-19] MEDS: fentaNYL drip 100 ML 10 MCG CONT INF ×3 (01:53→22:46)
[2024-05-19 05:45] LABS: Bedside Glucose 89 mg/dL (74-106)
[2024-05-19 05:47] LABS: Absolute Lymphocyte Count 0.63 X10^3/uL (0.83-4.51); Absolute Neutrophil Count 2.4 X10^3/uL (2.0-7.7); Basophil# 0.01 X10^3/uL; Basophil% 0.3 % (0-1); Eosinophil# 0.13 X10^3/uL; Eosinophils% 3.8 % (0-5); Hematocrit 25.9 % (40-54); Hemoglobin 7.4 g/dL (13.0-16.5); Lymphocyte # 0.63 X10^3/ul (0.83-4.51); Lymphocyte % 18.3 % (19-41); Mean Corp Hgb Conc 28.6 g/dL (32-36); Mean Corpuscular Hgb 28.4 pg (27.0-32.0); Mean Corpuscular Volume 99.2 fL (80-94); Mean Platelet Vol. 12.3 fl (6.2-12.0); Monocyte# 0.25 X10^3/uL; Monocyte% 7.2 % (0-10); NRBC Flagged by Analyzer 0 % (0-5); Neutrophil # 2.41 X10^3/uL (2.7-7.7); Neutrophil % 69.8 % (47-70); POSITIVE MORPHOLOGY YES; Platelet Count 117 K/mm3 (150-450); RBC Distribution Width CV 19.7 % (11.6-14.6); RBC Distribution Width SD 67.7 fl (35.1-43.9); Red Blood Count 2.61 M/mm3 (4.6-6.2); White Blood Count 3.5 K/mm3 (4.4-11.0)
[2024-05-19 06:04] LABS: Differential Indicated SCAN CRITERIA MET
--- NOTE | 2024-05-19 06:19 | RAD_ITS ---
EXAM: XR CHEST, 1 VIEW CLINICAL INDICATION: Increased O2 requirements TECHNIQUE: Frontal view of the chest. COMPARISON: XR Chest dated 05/18/2024 FINDINGS: LUNGS AND PLEURAL SPACES: Increasing opacification of the left lower lobe which may represent pneumonia or atelectasis. Small left pleural effusion suspected. HEART: Stable mild cardiomegaly. MEDIASTINUM: No mediastinal or hilar mass. BONES/JOINTS: No acute abnormality. TUBES, LINES AND DEVICES: Tip of the endotracheal tube is at the level of the larynx and should be further advanced. Enteric tube extends into the stomach. RAD/Chest 1 View (Portable) IMPRESSION: Increasing opacification of the left lower lobe. Malposition of the endotracheal tube. Electronically Signed: Gerry Blanton MD at 8:31 EST ,
[2024-05-19 06:21] LABS: Cholesterol 89 mg/dL (200); High Density Lipoprotein 33 mg/dL; Phosphorus 4.8 mg/dL (2.5-4.9); Triglycerides 73 mg/dL; Very Low Density Lipoprotein 15 mg/dL (5-40)
[2024-05-19 06:24] LABS: ALB/GLOB Ratio 0.9 RATIO (0.9-2.4); AST(SGOT) 10 U/L (15-37); Alanine Aminotransfer ALT/SGPT 12 U/L (16-61); Albumin, Serum 2.7 g/dL (3.2-5.0); Alkaline Phosphatase 75 U/L (45-117); Anion Gap 3 (5-15); BUN 40 mg/dL (7-18); BUN/Creat Ratio 29.4 RATIO (10-20); Calcium,Total 8.3 mg/dL (8.5-10.1); Chloride 110 mmol/L (98-107); Creatinine, Serum 1.36 mg/dL (0.70-1.30); EST Glomerular Filtration Rate 56 mL/min (>60); Est Glom Filt Rate - Afr Amer 68 mL/min (>60); Globulin 3.1 g/dL (2.2-4.2); Glucose 91 mg/dL (74-106); Magnesium 2.2 mg/dL (1.6-2.6); Protein, Total 5.8 g/dL (6.4-8.2); Sodium Level 146 mmol/L (136-145)
[2024-05-19] MEDS: Furosemide 500 MG in Empty Viaflex 50 mL 1 EACH CONT INF ×2 (06:30→11:34)
[2024-05-19] MEDS: Propofol 10MG/Ml 1,000 MG/100 ML Bottle 26.1 MG CONT INF (06:40)
--- NOTE | 2024-05-19 06:40 | PN.HOSP_ITS ---
Reason for Visit Reason for Visit: Diagnoses Heart failure, unspecified (05/17/24) Shortness of breath (05/17/24) Hypoxemia (05/17/24) Subjective Subjective Patient overnight with completion of 2 unit PRBC administration however initially after first his oxygen requirements going up and continued following second with this AM early FiO2 up to 100% with increase of Lasix drip per overnight physician as well as several repositionings of patient ET tube but consistently appeared at similar depth on imaging with manager competitive intelligence involvement however repeat assessment for Dr. Laird and scope with evidence that ET tube was not in the appropriate position therefore this was removed and replaced with also noted that time significant secretions with sputum culture obtained and patient initiated on more broad-spectrum antibiotic therapy with IV vancomycin and IV Zosyn given concern for possible infection as well. BNP was obtained and noted to be 372.5 per overnight manager competitive intelligence. Patient without any evidence of fevers, chills, nausea, emesis, abdominal pain, chest pain but difficult assessment as sedated and intubated as noted. Objective Data Objective Data Vital Signs: Vital Signs Temp Pulse Resp BP Pulse Ox O2 Del Method O2 Flow Rate 97.3 F L 75 13 105/56 L 91 Mechanical Ventilator 4 05/19/24 03:52 05/19/24 06:00 05/19/24 06:00 05/19/24 06:00 05/19/24 06:00 05/19/24 06:00 05/18/24 09:16 FiO2 100 05/19/24 06:00 Oxygen Flow Rate (L/min) 4 Oxygen Delivery Method Mechanical Ventilator Weight: 374 lb 9.046 oz Body Mass Index (BMI) 44.4 Intake & Output: Intake and Output for Last 24 Hours 05/17/24 05/18/24 05/19/24 23:59 23:59 23:59 Intake Total 1115.20 / 1140.90 745.90 / 745.90 Output Total 1100 / 1900 4750 / 4750 1700 / 1700 Balance -1100 / -1650 -3634.80 / -3609.10 -954.10 / -954.10 Lab / Micro Data 05/19/24 05:25 05/19/24 05:25 Labs: Laboratory Results - last 24 hr 05/18/24 05:59: WBC 5.3, RBC 2.40 L, Hgb 7.0 L, Hct 25.9 L, MCV 107.9 H, MCH 29.2, MCHC 27.0 L, RDW Std Deviation 73.4 H, RDW Coeff of Tan 19.1 H, Plt Count 134 L, MPV 11.0, Immature Gran % (Auto) 1.500 H, Neut % (Auto) 74.4 H, Lymph % (Auto) 12.2 L, [place] % (Auto) 8.7, Eos % (Auto) 2.8, Baso % (Auto) 0.4, Absolute Neuts (auto) 4.0, Absolute Lymphs (auto) 0.65 L, Nucleated RBC % 0.9, Anisocytosis 2+, Sodium 145, Potassium 4.8, Chloride 112 H, Carbon Dioxide 31.0, Anion Gap 1 L, BUN 41 H, Creatinine 1.29, Estim Creat Clear Calc 98.50, Est GFR (MDRD) Af Amer 72, Est GFR (MDRD) Non-Af 59 L, BUN/Creatinine Ratio 31.8 H, G lucose 165 H, Calcium 8.6, Magnesium 2.6, TSH 1.550, Free T4 0.97 05/18/24 18:10: PT 16.4 H, INR 1.3, APTT 30.8, Hemoglobin A1c 5.6, Total Creatine Kinase 52, Triglycerides 66 05/18/24 18:40: Blood Type O POSITIVE, Antibody Screen NEGATIVE, Crossmatch See Detail 05/18/24 22:10: POC Glucose 112 H 05/19/24 00:40: Hgb 6.8 L, Hct 24.2 L, APTT 45.9 H 05/19/24 05:18: POC Glucose 89 05/19/24 05:25: WBC 3.5 L, RBC 2.61 L, Hgb 7.4 L, Hct 25.9 L, MCV 99.2 H D, MCH 28.4, MCHC 28.6 L D, RDW Std Deviation 67.7 H, RDW Coeff of Tan 19.7 H, Plt Count 117 L, MPV 12.3 H, Immature Gran % (Auto) 0.600, Neut % (Auto) 69.8, Lymph % (Auto) 18.3 L, [place] % (Auto) 7.2, Eos % (Auto) 3.8, Baso % (Auto) 0.3, Absolute Neuts (auto) 2.4, Absolute Lymphs (auto) 0.63 L, Nucleated RBC % 0, S odium 146 H, Potassium 4.0, Chloride 110 H, Carbon Dioxide 33.0 H, Anion Gap 3 L , BUN 40 H, Creatinine 1.36 H, Estim Creat Clear Calc 93.00, Est GFR (MDRD) Af Amer 68, Est GFR (MDRD) Non-Af 56 L, BUN/Creatinine Ratio 29.4 H, Glucose 91, C alcium 8.3 L, Phosphorus 4.8, Magnesium 2.2, Total Bilirubin 1.00, AST 10 L, ALT 12 L, Alkaline Phosphatase 75, Total Protein 5.8 L, Albumin 2.7 L, Globulin 3.1, Albumin/Globulin Ratio 0.9, Triglycerides 73, Cholesterol 89, LDL Cholesterol 41, VLDL Cholesterol 15, HDL Cholesterol 33 L Micro: Microbiology 05/17/24 22:30 Mucosa - Nasopharyngeal Respiratory Panel (PCR) - Final 05/17/24 22:49 Nasal Secretion SARS-CoV-2 Antigen (Rapid) - Final ABG Data ABG results: ABG 05/18/24 05/18/24 05/18/24 11:03 13:23 15:27 Specimen Type ART ART ART Sample Site R Radial R Radial L Radial pH 7.08 L* 7.11 L* 7.07 L* Bicarbonate Actual 31.9 H 31.6 H 32.4 H Total CO2 35 35 36 Base Excess 2 2 2 O2 Saturation 60 L 77 L 92 L O2 % 6.0 45.0 45.0 ABG pCO2 108.3 H* 99.5 H* 112.7 H* ABG pO2 45 L 59 L 96 Star Test Positive Positive Positive Respiration Rate 12 16 O2 Delivery Device HFNC BiPAP BiPAP Vent Mode Not entered BiLevel Not entered Tidal Volume 500.0 POC PEEP 8 12 Crit Call To/Read Back Yes Yes Yes Blood Gas Notified Whom mikey LAIRD Blood Gas Notified Time 11:06:19 13:26:02 15:29:43 Clinical Comments avaps 05/18/24 19:47 Specimen Type ART Sample Site R Radial pH 7.36 Bicarbonate Actual 32.4 H Total CO2 34 Base Excess 7 H O2 Saturation 95 O2 % 50.0 ABG pCO2 57.8 H ABG pO2 80 Star Test Positive Respiration Rate 16 O2 Delivery Device Adult Vent Vent Mode AC Tidal Volume 450.0 POC PEEP 5 Crit Call To/Read Back Blood Gas Notified Whom Blood Gas Notified Time Clinical Comments Radiography Diagnostic Testing: Radiology Impression Echocardiogram 05/18/24 09:50 Interpretation Summary The study was technically difficult with suboptimal images. Mild concentric left ventricular hypertrophy. The left ventricular ejection fraction is 70 %. Mitral annular calcification noted. Trace mitral valve regurgitation. Aortic valve not well-visualized in short axis. Appears sclerotic. The left atrium is severely enlarged. Ordering Physician: Grace Allen Performed By: Allen Bower RCS Chest CTA 05/18/24 16:23 IMPRESSION: 1. Very limited by patient size. Also Technically inadequate exam for confirming or excluding pulmonary emboli as indicated above. Improper bolus and timing. No definite major or central PE seen. 2. Very low lung volumes with prominent consolidation in both lower lobes worse on the right. Electronically Signed: Maulik Urias MD at 18:17 EST , Chest X-Ray 05/18/24 16:35 IMPRESSION: Endotracheal tube terminates 9.5 cm above the dayana and nasogastric tube terminates in the fundus of the stomach. Multiple mild patchy pulmonary opacities of both lungs worse on the right. The Nonstandard Physician Communication protocol was initiated. Electronically Signed: Maulik Urias MD at 17:28 EST , ADDENDUM: 05/18/24 1841 IMPRESSION: Endotracheal tube terminates 9.5 cm above the dayana and nasogastric tube terminates in the fundus of the stomach. Multiple mild patchy pulmonary opacities of both lungs worse on the right. The Nonstandard Physician Communication protocol was initiated. Baylee.Re. : Kandy Brown OT, confirmed on 05/18/2024 18:34:31 (ET) that the healthcare facility has received the radiology report. Electronically Signed: Maulik Urias MD at 17:28 EST , Rhythm Strip Rhythm Strip: Sinus Rhythm Rate: 90 Ectopy: None Physical Exam Narrative Physical Examination: General: Intubated and sedated, laying in the ICU bed, currently no acute distress. Skin: Normal color, normal turgor, no icterus, no cyanosis except for various staged ecchymoses, abrasions, significant bilateral lower extremity venous stasis skin changes. HEENT: AT/NC, EOM unable to be assessed given intubated/sedated status, PERRLA, mildly dry MM, ET tube in place. Lungs: Diminished, greater bases, very distant breath sounds, symmetric rise, intubated. Heart: Regular rate and rhythm; no gallop, rub audible. Abdomen: Soft, morbidly obese, NTTP, distant BS, difficult to discern distention given habitus. Extremities: No cyanosis, no clubbing, see skin, significant distal 3+ pitting edema. Neurological: Intubated and sedated, laying in the ICU bed, cognitive function not baseline intact intact, pupils equally reactive to light and accommodation, cranial nerves difficult to assess given intubated and sedated status, not moving extremities currently, strength difficult to assess again as intubated and sedated. Psychiatric: Affect appears flat, no acute evidence of depressive or anxiety feelings. Assessment & Plan Assessment/Plan (1) Congestive heart failure: QUALIFIERS: Heart failure chronicity: acute Heart failure type: u nspecified Qualified Code(s): I50.9 - Heart failure, unspecified PLAN: Plan The patient is a 63 y/o M w/ PMHx: CKD stage III unclear subtype per GFR trending, Diabetes mellitus type II, GLENN noncompliant with PAP therapy, Morbid obesity, Hypothyroidism, Chronic macrocytic anemia/chronic B12 deficiency/Fe deficiency anemia following with Dr. Rain, Chronic peripheral edema on lasix who presents to the [facility] ED on 05/17/24 with history of increasing dyspnea as well as worsening lower extremity swelling over the last several days with recent PRBC 2 unit administration and 1 iron transfusion the prior Wednesday secondary to hemoglobin of 5.4 with unfortunately noncompliance with his Lasix following prompting ED evaluation. #1. Acute metabolic encephalopathy secondary to acute hypoxic and hypercarbic respiratory failure suspected multifactorial, likely component of untreated GLENN, hypoventilation morbid obesity syndrome as well as some concern still for possible HF with preserved EF in addition to Pneumonia with copious purulent secretions, unclear organism: Initially admitted to the PCU and initiated on IV twice daily Lasix regimen however minimal urine output and weight had actually increased, transitioned to Lasix lower dose drip with cardiology consultation requested but 05/18/2024 patient became encephalopathic, ABG obtained with notable hypoxia and hypercapnia with BiPAP trial and eventual transition to the ICU with AVAPS trial unsuccessful. 05/18/2024 late afternoon patient eventually intubated, sedated. Repeat limited echocardiogram per cardiology recommendation with study unfortunately difficult with mild concentric LVH, LVEF 70%, trace MV regurgitation, AV not well-visualized in short axis possibly sclerotic, left atrium severely enlarged. 05/18/2024 CTPA obtained with limited visualization given patient's size with no definitive PE with very low lung volumes and prominent consolidations at the bases worse on the right. 05/18/24 overnight following 2 u PRBC administration required increased FiO2 supplementation. ETT repositioned but despite this still appeared malpositioned. 05/19/24 Dr. Laird evaluation with scope with confirmed inappropriate ETT placement with extubation/reintubation successfully with improved settings. During process noted copious purulent secretions. Patient broad-spectrum antibiotic therapy initiated with IV vancomycin and IV Zosyn. COVID-negative, urine antigens negative, flu and RSV PCR again performed and they were negative again. Sputum culture was sent as well as Gram stain and pending. Overnight patient Lasix drip was increased with improved diuresis. #2. Chronic macrocytic anemia/iron deficiency anemia: Patient with significant ongoing issues with anemia, following with oncology Dr. Toussaint with aggressive outpatient evaluation for source including upper and lower endoscopies with Dr. Orozco with outpatient transfusions as noted, current plan for outpatient follow-up with Dr. Molina with possible repeat endoscopy versus capsule endoscopy, FOBT requested upon admission. Admission 05/17/2024 hemoglobin 7.0, MCV 105 with repeat 05/18/2024 hemoglobin 7.0, MCV 107.9. Patient is on chronic B12 supplementation also of note. Given persistent anemia in the setting with now intubated status administered 2 u PRBC overnight as noted above. 05/19/24 Hgb 7.4, MCV 99.2. Fe IV administration administered. #3. Hyponatremia, potentially related with his recent resuscitation/blood: 05/19/2024 sodium 146, discussed with ICU nursing staff with plan for free water administration with tube feeds. Will repeat CMP in AM. #4. Diabetes mellitus type II: Per current list does not appear to be on any diabetic regimen, last hemoglobin A1c noted 06/17/2023 6.7%, 05/19/2024 hemoglobin A1c 5.6%. Will maintain on q6h accu checks w/ ISS. #5. Morbid Obesity: Weight loss and lifestyle changes encouraged. #6. Hypothyroidism: We will continue patient on levothyroxine regimen, TSH 1.550, free T40.97, normal range. #7. GLENN: Noncompliant with PAP therapy as noted, currently intubated and sedated. #8. Chronic Kidney Disease Stage III unclear subtype per GFR trending: Admission BUN/Cr 44/1.46, baseline renal function appears primarily 1.2-1.4, 05/19/2024 BUN/creatinine 40/1.36, repeat BMP in AM. #9. DVT prophylaxis: As noted initiating on heparin drip cautiously given his underlying anemia pending CTA chest however this resulted with no evidence of any PE and was discontinued. Patient transition to 05/19/24 AM to Lovenox twice daily regimen #10. CODE STATUS: Full code. Charges/Coding Visit Charges Inpatient E&M: 51299 Subs Hosp L3
--- NOTE | 2024-05-19 06:45 | PCMCONS.TICU ---
HPI Consult Data Date of Consult: 05/19/24 HPI Narrative Reason for Consultation: 63 yrs old male with past medical history of HPI Narrative: 63 yrs old male with past medical history of GLENN, Anemia, DM, Obesity, foot drop , OA presented to ED for shortness of breath. BIPAP was tried initially with out success and patient got intubated yesterday. ICU is consulted this morning On my evaluation of patient in ICU, he is intubated and sedated. 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 [facility] Medical History Pancytopenia Back pain GLENN (obstructive sleep apnea) Hypothyroid Edema Nocturia Vitamin B12 deficiency Muscle spasm Iron deficiency anemia History of diabetes mellitus Chronic anemia Compression fracture of L2 Osteoarthritis of left knee Diabetes Bladder disease Dietary restriction Injury of head and neck History of pain when walking Walker as ambulation aid Foot drop, right Arthritis Chronic pain Non-smoker Home Medications ?Medication ?Instructions ?Recorded ?Last Taken ?Type levothyroxine 75 mcg tablet 50 mcg PO DAILY 01/10/24 Unknown History mecobalamin (vitamin B12) 1,000 1,000 mcg PO DAILY multivitamin 01/10/24 05/17/24 History mcg chewable tablet furosemide 20 mg tablet (Lasix) 40 mg PO DAILY Diuretic 05/08/24 05/16/24 History Allergy/AdvReac Type Severity Reaction Status Date / Time hydromorphone (From Dilaudid) Allergy Severe Anaphylaxis Verified 05/17/24 21:56 gabapentin AdvReac Intermediate HALLUCINATI Verified 05/17/24 21:56 ONS Family History Other Multiple sclerosis Surgical History Hx of vertebroplasty History of total left knee replacement Hx of left cataract extraction Hx of eye surgery Social History household members: spouse Smoking Status: Never smoker alcohol intake: never substance use type: does not use Objective Data Objective Data Vital Signs: Vital Signs Last response Temperature 36.3 C L 05/19/24 03:52 Temperature Source Axillary 05/19/24 03:52 Pulse Rate 75 05/19/24 06:00 Pulse Strength Normal (2+) 05/18/24 20:35 Respiratory Rate 13 05/19/24 06:00 Respiratory Effort Normal, Non-Labored 05/19/24 00:00 Respiratory Depth Normal 05/19/24 00:00 Respiratory Pattern Normal 05/19/24 04:20 Blood Pressure 105/56 L 05/19/24 06:00 Blood Pressure Mean 72 05/19/24 06:00 Blood Pressure Source Monitor 05/19/24 06:00 Blood Pressure Position Semi-Fowlers 05/19/24 06:00 Blood Pressure Location Left Arm 05/19/24 06:00 Pulse Ox 91 05/19/24 06:00 Oxygen Delivery Method Mechanical Ventilator 05/19/24 06:00 Oxygen Flow Rate (L/min) 4 05/18/24 09:16 Fraction of Inspired Oxygen (FIO2) 100 05/19/24 06:00 I&O: I&O Last 24 Hours 05/18/24 05/18/24 05/19/24 11:59 23:59 11:59 Intake Total 500 / 1140.90 615.20 / 1140.90 745.90 / 745.90 Output Total 1100 / 4750 3650 / 4750 1700 / 1700 Balance -600 / -3609.10 -3034.80 / -3609.10 -954.10 / -954.10 I&O: Total Stay 05/17/24 15:40 thru 05/19/24 05:30 Intake Total 1861.10 Output Total 7550 Balance -5688.90 Current Meds Ordered / Administered: Current meds ordered / Administered Generic Name Dose Route Start Last Admin Trade Name Freq PRN Reason Stop Dose Admin Acetaminophen 650 mg 05/17/24 21:25 Acetaminophen 325 Mg Tablet PO Q6H PRN PRN Pain 1-10 Or Fever >100.7 Albuterol Sulfate 2.5 mg 05/17/24 21:25 Albuterol 2.5 Mg/3 Ml Vial.Neb. INHALATION Q2H PRN PRN SOB &/OR WHEEZING Aspirin 81 mg 05/19/24 08:00 Aspirin 81 Mg Tab.Chew PO BREAKFAST YAZMIN Atorvastatin Calcium 80 mg 05/18/24 22:00 05/18/24 22:11 Atorvastatin Calcium 80 Mg Tablet PO 80 mg QHS YAZMIN Administration Chlorhexidine Gluconate 15 ml 05/18/24 22:00 05/18/24 20:57 Chlorhexidine 15 Ml PO 15 ml BID YAZMIN Administration Glucagon 1 mg 05/18/24 16:42 Glucagon 1 Mg/Ml Syringe IM X1 PRN Hypoglycemia Protocol Heparin Sodium (Porcine) 0 unit 05/18/24 16:30 Heparin Injection (Vial) 5,000 Unit/Ml Vial IV UD PRN dose adjustment Protocol Hydralazine HCl 10 mg 05/18/24 16:42 Hydralazine 20 Mg/Ml Vial IV Q4H PRN PRN SBP > 160 Protocol Propofol 1,000 mg in 100 mls @ 10.454 mls/hr 05/18/24 15:45 05/19/24 05:30 Diprivan CONT INF 25 mcg/kg/min .Q9H34M YAZMIN 26.1 mls/hr Titration Protocol 10 MCG/KG/MIN Pantoprazole Sodium 40 mg/ 110 mls @ 330 mls/hr 05/18/24 22:00 05/18/24 21:45 Sodium Chloride IV Infused Q12 YAZMIN Infusion Fentanyl 100 mls @ 5 mls/hr 05/18/24 15:45 05/19/24 05:00 CONT INF 100 mcg/hr UD YAZMIN 10 mls/hr Titration Protocol 50 MCG/HR Heparin Sodium/Dextrose 25,000 units in 250 mls @ 10 mls/hr 05/18/24 16:25 05/19/24 02:10 CONT INF 1,100 units/hr .Q25H YAZMIN 11 mls/hr Titration Protocol As Directed Dextrose 250 mls @ 0 mls/hr 05/18/24 16:42 Dextrose 10%-Water IV .Q0M PRN HYPOGLYCEMIA Protocol As Directed Furosemide 500 mg/ N/A 50 mls @ 2 mls/hr 05/19/24 06:25 CONT INF .Q25H YAZMIN Insulin Human Lispro 0 unit 05/18/24 16:45 05/19/24 05:35 Insulin Lispro 100 Unit/Ml Insuln.Pen SC Not Given Q6H [facility] Protocol Levothyroxine Sodium 50 mcg 05/18/24 06:00 05/18/24 05:32 Levothyroxine 50 Mcg Tablet PO 50 mcg 0600 YAZMIN Administration Melatonin 3 mg 05/17/24 21:25 Melatonin 3 Mg Tablet PO QHS PRN PRN INSOMNIA Metoprolol Tartrate 12.5 mg 05/18/24 22:00 05/18/24 22:11 Metoprolol Tartrate 25 Mg Tablet PO 12.5 mg BID YAZMIN Administration Protocol Ondansetron HCl 4 mg 05/17/24 21:25 Ondansetron 4 Mg/2 Ml Vial IV Q8H PRN PRN NAUSEA/VOMITING Senna/Docusate Sodium 2 tablet 05/17/24 21:25 Senna/Docusate Sodium 1 Tablet PO BID PRN PRN Constipation Sodium Chloride 10 - 40 ml 05/17/24 22:01 05/18/24 11:34 0.9% Saline Lock 10 Ml Syringe IV 10 ml UD PRN Administration SALINE FLUSH Sodium Chloride 5 ml 05/18/24 15:41 Sodium Cl For Inhalation 15 Ml Vial.Neb. INHALATION Q5M PRN Suctioning Lab / Micro Data 05/19/24 05:25 05/19/24 05:25 Labs: Laboratory Results - last 24 hr 05/18/24 05:59: WBC 5.3, RBC 2.40 L, Hgb 7.0 L, Hct 25.9 L, MCV 107.9 H, MCH 29.2, MCHC 27.0 L, RDW Std Deviation 73.4 H, RDW Coeff of Tan 19.1 H, Plt Count 134 L, MPV 11.0, Immature Gran % (Auto) 1.500 H, Neut % (Auto) 74.4 H, Lymph % (Auto) 12.2 L, [place] % (Auto) 8.7, Eos % (Auto) 2.8, Baso % (Auto) 0.4, Absolute Neuts (auto) 4.0, Absolute Lymphs (auto) 0.65 L, Nucleated RBC % 0.9, Anisocytosis 2+, Sodium 145, Potassium 4.8, Chloride 112 H, Carbon Dioxide 31.0, Anion Gap 1 L, BUN 41 H, Creatinine 1.29, Estim Creat Clear Calc 98.50, Est GFR (MDRD) Af Amer 72, Est GFR (MDRD) Non-Af 59 L, BUN/Creatinine Ratio 31.8 H, Glucose 165 H, Calcium 8.6, Magnesium 2.6, TSH 1.550, Free T4 0.97 05/18/24 18:10: PT 16.4 H, INR 1.3, APTT 30.8, Hemoglobin A1c 5.6, Total Creatine Kinase 52, Triglycerides 66 05/18/24 18:40: Blood Type O POSITIVE, Antibody Screen NEGATIVE, Crossmatch See Detail 05/18/24 22:10: POC Glucose 112 H 05/19/24 00:40: Hgb 6.8 L, Hct 24.2 L, APTT 45.9 H 05/19/24 05:18: POC Glucose 89 05/19/24 05:25: WBC 3.5 L, RBC 2.61 L, Hgb 7.4 L, Hct 25.9 L, MCV 99.2 H D, MCH 28.4, MCHC 28.6 L D, RDW Std Deviation 67.7 H, RDW Coeff of Tan 19.7 H, Plt Count 117 L, MPV 12.3 H, Immature Gran % (Auto) 0.600, Neut % (Auto) 69.8, Lymph % (Auto) 18.3 L, [place] % (Auto) 7.2, Eos % (Auto) 3.8, Baso % (Auto) 0.3, Absolute Neuts (auto) 2.4, Absolute Lymphs (auto) 0.63 L, Nucleated RBC % 0, Sodium 146 H, Potassium 4.0, Chloride 110 H, Carbon Dioxide 33.0 H, Anion Gap 3 L, BUN 40 H, Creatinine 1.36 H, Estim Creat Clear Calc 93.00, Est GFR (MDRD) Af Amer 68, Est GFR (MDRD) Non-Af 56 L, BUN/Creatinine Ratio 29.4 H, Glucose 91, Calcium 8.3 L, Phosphorus 4.8, Magnesium 2.2, Total Bilirubin 1.00, AST 10 L, ALT 12 L, Alkaline Phosphatase 75, Total Protein 5.8 L, Albumin 2.7 L, Globulin 3.1, Albumin/Globulin Ratio 0.9, Triglycerides 73, Cholesterol 89, LDL Cholesterol 41, VLDL Cholesterol 15, HDL Cholesterol 33 L Micro: Microbiology 05/17/24 22:30 Mucosa - Nasopharyngeal Respiratory Panel (PCR) - Final ABG Data ABG results: ABG 05/18/24 05/18/24 05/18/24 11:03 13:23 15:27 Specimen Type ART ART ART Sample Site R Radial R Radial L Radial pH 7.08 L* 7.11 L* 7.07 L* Bicarbonate Actual 31.9 H 31.6 H 32.4 H Total CO2 35 35 36 Base Excess 2 2 2 O2 Saturation 60 L 77 L 92 L O2 % 6.0 45.0 45.0 ABG pCO2 108.3 H* 99.5 H* 112.7 H* ABG pO2 45 L 59 L 96 Star Test Positive Positive Positive Respiration Rate 12 16 O2 Delivery Device HFNC BiPAP BiPAP Vent Mode Not entered BiLevel Not entered Tidal Volume 500.0 POC PEEP 8 12 Crit Call To/Read Back Yes Yes Yes Blood Gas Notified Whom mikey JOHNSON Blood Gas Notified Time 11:: 13:26:02 15:29:43 Clinical Comments avaps 05/18/24 19:47 Specimen Type ART Sample Site R Radial pH 7.36 Bicarbonate Actual 32.4 H Total CO2 34 Base Excess 7 H O2 Saturation 95 O2 % 50.0 ABG pCO2 57.8 H ABG pO2 80 Star Test Positive Respiration Rate 16 O2 Delivery Device Adult Vent Vent Mode AC Tidal Volume 450.0 POC PEEP 5 Crit Call To/Read Back Blood Gas Notified Whom Blood Gas Notified Time Clinical Comments Rhythm Strip Rhythm Strip: Sinus Rhythm Rate: 90 Ectopy: None Imaging Radiology Impression Echocardiogram 05/18/24 09:50 Interpretation Summary The study was technically difficult with suboptimal images. Mild concentric left ventricular hypertrophy. The left ventricular ejection fraction is 70 %. Mitral annular calcification noted. Trace mitral valve regurgitation. Aortic valve not well-visualized in short axis. Appears sclerotic. The left atrium is severely enlarged. Ordering Physician: Grace Allen Performed By: Aleln Bower RCS Chest CTA 05/18/24 16:23 IMPRESSION: 1. Very limited by patient size. Also Technically inadequate exam for confirming or excluding pulmonary emboli as indicated above. Improper bolus and timing. No definite major or central PE seen. 2. Very low lung volumes with prominent consolidation in both lower lobes worse on the right. Electronically Signed: Maulik Urias MD at 18:17 EST , Chest X-Ray 05/18/24 16:35 IMPRESSION: Endotracheal tube terminates 9.5 cm above the dayana and nasogastric tube terminates in the fundus of the stomach. Multiple mild patchy pulmonary opacities of both lungs worse on the right. The Nonstandard Physician Communication protocol was initiated. Electronically Signed: Maulik Urias MD at 17:28 EST , ADDENDUM: 05/18/24 1841 IMPRESSION: Endotracheal tube terminates 9.5 cm above the dayana and nasogastric tube terminates in the fundus of the stomach. Multiple mild patchy pulmonary opacities of both lungs worse on the right. The Nonstandard Physician Communication protocol was initiated. N.B. : Kandy Brown OT, confirmed on 05/18/2024 18:34:31 (ET) that the healthcare facility has received the radiology report. Electronically Signed: Maulik Urias MD at 17:28 EST , Assessment and Plan . Assessment and plan: 63 yrs old male with past medical history of GLENN, Hypthyroidism, Anemia, DM, Obesity, foot drop , OA presented to ED for shortness of breath. BIPAP was tried initially with out success and patient got intubated yesterday. ICU is consulted this morning # Acute hypoxic hypercapnic respiratory failure most likely due to Pneumonia vs fluid overload Underlying GLENN vs OHS Continue with vent support CXR noted, ETT high up, advance ETT ordered, follow up on repeat CXR CTA of chest noted Doppler of lower extremities Vent settings noted 450/16/100%/8, repeat ABG pending COVID negative Send for flu/RSV Urine legionella and strept antigen Follow up on sputum culture Bronchodilators Empiric antibiotics with Ceftriaxone/Azithromycin On lasix drip, monitor urine output and renal function Follow up with Cardiology # Pancytopenia Required PRBC transfusion Needs hematology evaluation # Hx of DM ISS Monitor blood sugar # Hypothyroidism Synthroid DVT prophylaxis: On Heparin Critical Care Time:60 minutes The entirety of this encounter was done via Telemedicine
[2024-05-19 07:01] LABS: Anisocytosis 1+; Differential Comment SCANNED; Hypochromasia 1+; Platelet Estimate SLT DEC (ADEQ); Polychromasia 1+
[2024-05-19 07:02] LABS: Ovalocyte 1+
--- NOTE | 2024-05-19 07:05 | RAD_ITS ---
EXAM: XR CHEST, 1 VIEW CLINICAL INDICATION: Advanced ET tube TECHNIQUE: Frontal view of the chest. 7:02 AM. COMPARISON: Previous chest radiograph of this date, 6:23 AM. FINDINGS: LUNGS AND PLEURAL SPACES: Low lung volumes. There is been partial interval clearing of the retrocardiac opacification, consistent with improving atelectasis in view of its rapid interval change. Left lateral costophrenic angle remains mildly blunted consistent with small pleural fusion. Calcified granuloma again noted at the right lung apex. Mild hazy atelectasis is present at the right lung base, mildly improved. No definite right pleural effusion. No pneumothorax. HEART: Heart size is mildly enlarged. The upper lobe pulmonary vasculature is accentuated by technique and degree of inspiration. MEDIASTINUM: Stable elongation and calcification of the thoracic aorta. BONES/JOINTS: Thoracic degenerative spurring. Degenerative osteoarthritis of the right shoulder. SOFT TISSUES: Unremarkable. TUBES, LINES AND DEVICES: ET tube remains in place with its tip projected at the level of the thoracic inlet , and advancement of the tube is again suggested; advancement of the tube by [address] is tip approximately 3 cm above the level of the dayana. Enteric tube remains in place extending into the stomach, with its tip projected at the level of the gastric mid body. RAD/Chest 1 View (Portable) IMPRESSION: 1. Improving bibasilar atelectasis. 2. ET tube remains in place with its tip suboptimally positioned at the level of the thoracic inlet, and advancement is again suggested. 3. Satisfactory enteric tube positioning. Electronically Signed: Brandt Adams MD at 8:52 EST ,
--- NOTE | 2024-05-19 07:12 | VDLE_ITS ---
Reason For Study: SOB RIGHT LEFT GSV is normal. GSV is normal. CFV is compressible, spontaneous, phasic, CFV is compressible, spontaneous, phasic, competent and demonstrates normal competent, and demonstrates normal augmentation. augmentation. FV is compressible, spontaneous, phasic, FV is compressible, spontaneous, phasic, competent and demonstrates normal competent and demonstrates normal augmentation. augmentation. POP V is compressible, spontaneous, phasic, POP V is compressible, spontaneous, phasic, competent and demonstrates normal competent and demonstrates normal augmentation. augmentation. T/P Trunk is compressible. T/P Trunk is compressible. PTV is compressible. PTV is compressible. RT PerV is compressible. LT PerV is compressible. Procedure This is a venous duplex using B-mode, color flow and spectral Doppler. Exam performed portable in ICU/CCU. The exam was diagnostic. A preliminary report was called and/or faxed to Marlene - PHLEBOTOMY TECHNOLOGIST. VL/Venous Duplex US - Bart Extrem Interpretation Summary Deep veins of the lower extremities are bilaterally patent and compressible seg mentally. There is no evidence of deep vein thrombosis on either side. Valvular competence appears in tact within the proximal deep venous systems bilaterally. The great saphenous veins appear bila terally patent and compressible segmentally. Ordering Physician: Jeimy Padilla Referring Physician: Angelic Gilmore Performed By: Santos Caballero, RVT
[2024-05-19 07:39] LABS: BNP,B-Type NATRIURETIC PEPTIDE 372.5 pg/mL (0-100)
[2024-05-19 08:07] LABS: Procalcitonin 0.18 ng/mL (0.00-0.09)
[2024-05-19] MEDS: Chlorhexidine 15 ML PO ×2 (08:49→21:41)
--- NOTE | 2024-05-19 09:23 | RAD_ITS ---
EXAM: XR CHEST, 1 VIEW CLINICAL INDICATION: ETT placement TECHNIQUE: Frontal view of the chest. COMPARISON: XR Chest dated 05/19/2024 FINDINGS: LUNGS AND PLEURAL SPACES: Persistent left lower lobe consolidation/atelectasis. Increasing central pulmonary densities noted bilaterally which may represent pulmonary edema. HEART: Stable cardiomegaly. MEDIASTINUM: No mediastinal or hilar mass. BONES/JOINTS: No acute abnormality. TUBES, LINES AND DEVICES: Tip of the ET tube is above the sternal notch 8.6 cm from the dayana. The inflatable cuff along the endotracheal tube is overdistended to a diameter of 4.3 cm. Enteric tube tip is not seen but is below the diaphragm. RAD/Chest 1 View (Portable) IMPRESSION: 1. Overinflated tracheal cuff as described with tip of the ET tube 3.6 cm above the dayana. 2. Increasing central pulmonary edema/pneumonia. Electronically Signed: Gerry Blanton MD at 10:00 EST ,
[2024-05-19] MEDS: Propofol 10MG/Ml 1,000 MG/100 ML Bottle 36.6 MG CONT INF (09:37)
--- NOTE | 2024-05-19 09:38 | CASEMGMT ---
RN CM Assessment Pt is currently on the vent and is unable to answer this DEREK ZAMBRANO questions for assessment. TC to pt Danielle MENDEZ (). Danielle states that she is willing to answer this RN Haylee questions. Care providers, pharmacy, and demographics verified. Admitting dx: Fluid Overload LACE Strata: 3 PCP: Angelic Monsalve Specialists: Natty (ortho), Ernesto (GI), Breana (Hematology) Preferred Pharmacy: [facility] Insurance: [facility] Prescription Benefit: Yes LNOK: Danielle Pradohm (W) Living Arrangements: Pt lives with his in a split level home with 6 steps to the upper and lower portions with 1 step to enter. The pt states that the pt has difficulties with the steps inside the home and that they are remodeling the home to achieve a FFSU. Danielle states that this is not completed yet. ADLs/IADLs: Requires assistance. Pt provides this help she states Transportation: DME: Urinal, FWW, Raised TS, BP Cuff, Grab bars. Pt used to have a hospital bed but returned it. If pt goes home at time of DC, pt may qualify for home oxygen. A verbal list of local in-network DME companies provided to the pt at this time. Prefers [facility] again. HHC/SNF: Denies HH Hx. Reports Hx at [facility]. Danielle states that the pt is active at [facility] for OP Tx Plan: TBD. Today is VD#2. Danielle state that it may be a good idea for the pt to go to a SNF (such as [facility]) if warranted. At this time, it is too early to determine what the pt will best qualify for. CM and SW to follow. Danielle thanks this DEREK ZAMBRANO. Call back number provided to pt if any further needs arise. Re Alex RN, CM
--- NOTE | 2024-05-19 09:45 | RAD_ITS ---
EXAM: XR CHEST, 1 VIEW CLINICAL INDICATION: ETT placement TECHNIQUE: Frontal view of the chest. COMPARISON: XR Chest dated 05/19/2024 FINDINGS: LUNGS AND PLEURAL SPACES: Bilateral pulmonary opacities are unchanged. HEART: Stable cardiomegaly. MEDIASTINUM: No mediastinal or hilar mass. BONES/JOINTS: No acute abnormality. TUBES, LINES AND DEVICES: The endotracheal tube (ETT) is in satisfactory position with tip 3.4 cm above the dayana. Implantable cuff of the ET tube has been reduced. Enteric tube extends into the stomach. RAD/Chest 1 View (Portable) IMPRESSION: Satisfactory repositioning of ET tube and deflation of the tracheal cuff. No other interval change. Electronically Signed: Gerry Blanton MD at 10:23 EST ,
[2024-05-19] MEDS: Metoprolol Tartrate 25 MG Tablet 12.5 MG PO ×2 (10:00→21:42)
[2024-05-19] MEDS: Pantoprazole Sodium 40 MG in 0.9% Normal Saline (100mL MB+) 100 ML 330 MG IV ×2 (10:00→22:44)
[2024-05-19] MEDS: Aspirin 81 MG TAB.CHEW PO (10:01)
--- NOTE | 2024-05-19 10:02 | CPS ---
Pt was extubated for the purpose of re-intubation, Per Dr Laird
--- NOTE | 2024-05-19 10:27 | PCM.PN.BLA ---
Progress Note I was notified by nursing staff this morning regarding the malposition of the patient's endotracheal tube. The chest imaging from last evening and again this morning was reviewed. 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 This was confirmed with a fiberoptic laryngoscope. Therefore, the patient's old endotracheal tube was removed and a new #8 endotracheal tube was placed. Follow-up chest imaging confirmed appropriate placement. Intubation Indication: Acute hypoxemic and hypercapnic respiratory failure, malpositioned endotracheal tube. Consent was obtained from: Procedure was done emergently The patient was placed in the appropriate sniffing position. The patient had continuous cardiac as well as pulse oximetry monitoring during the procedure. The patient's old endotracheal tube ship pilot dispatcher balloon was deflated and the tube was removed without complication. Direct laryngoscopy was then performed using a number 4 MAC blade, which revealed a grade 2 view. A 8.0 mm endotracheal tube was visualized advancing between the cords to the level of 28 cm at the lip. The stylette was then removed and discarded. Tube placement was confirmed by fogging in the tube along with equal and bilateral breath sounds. Colorimetric change was visualized on the CO2 meter. The cuff was then inflated and the tube secured using a commercially available device. A good pulse oximetry waveform was seen on the monitor throughout the procedure. A portable chest x-ray has been ordered to confirm appropriate placement. The patient tolerated the procedure well. Procedures Hospitalists Procedures: [id number] Insert Emergency Airway
[2024-05-19] MEDS: Vancomycin HCl 2,000 MG in 0.9% Normal Saline (500mL Bag) 500 ML 250 MG IV (11:20)
[2024-05-19 11:56] LABS: Bedside Glucose 93 mg/dL (74-106)
[2024-05-19] MEDS: Propofol 10MG/Ml 1,000 MG/100 ML Bottle 31.4 MG CONT INF (12:09)
[2024-05-19] MEDS: Vital AF 1.2 Cal Liquid 1,000 ML 25 ML GT (12:49)
[2024-05-19] MEDS: Piperacil/Tazobactam 3.375 GM in 0.9% Normal Saline (50mL MB+) 50 ML IV ×2 (13:53→22:44)
[2024-05-19] MEDS: Propofol 10MG/Ml 1,000 MG/100 ML Bottle 20.9 MG CONT INF (15:16)
--- NOTE | 2024-05-19 15:38 | PCM.RX.CS ---
Consult Antibiotic Management Pharmacy has been consulted to manage selected antibiotic: Vancomycin Type of Intervention Type of Consult: New start Suspected Infection Suspected Infection: Pneumonia Labs Labs: Sodium 146 mmol/L (136-145) H 05/19/24 05:25 Potassium 4.0 mmol/L (3.5-5.1) 05/19/24 05:25 Chloride 110 mmol/L (98-107) H 05/19/24 05:25 Carbon Dioxide 33.0 mmol/L (21.0-32.0) H 05/19/24 05:25 Anion Gap 3 (5-15) L 05/19/24 05:25 BUN 40 mg/dL (7-18) H 05/19/24 05:25 Creatinine 1.36 mg/dL (0.70-1.30) H 05/19/24 05:25 Est GFR (MDRD) Af Amer 68 mL/min (>60) 05/19/24 05:25 Est GFR (MDRD) Non-Af 56 mL/min (>60) L 05/19/24 05:25 BUN/Creatinine Ratio 29.4 RATIO (10-20) H 05/19/24 05:25 Glucose 91 mg/dL (74-106) 05/19/24 05:25 Microbiology Microbiology: Microbiology 05/19/24 09:10 Sputum, Induced/Lukens Gram Stain - Final 05/18/24 17:40 Sputum, Tracheal Aspirate Gram Stain - Final 05/18/24 17:40 Sputum, Tracheal Aspirate Respiratory Culture - Preliminary Appears to be normal respiratory rl. Further studies to follow. 05/19/24 09:10 Mucosa - Nasopharyngeal Influenza & RSV (PCR) - Final 05/19/24 07:55 Nasal Secretion MRSA (PCR) - Final 05/19/24 07:55 Urine Catheter - Mccarthy Legionella Antigen - Final 05/19/24 07:55 Urine Catheter - Mccarthy Streptococcus pneumoniae Antigen (M - Final 05/17/24 22:30 Mucosa - Nasopharyngeal Respiratory Panel (PCR) - Final 05/17/24 22:49 Nasal Secretion SARS-CoV-2 Antigen (Rapid) - Final Goal Trough Goal Trough: 15-20 mcg/mL Pharmacy Plan for Drug Dosing Pharmacy Plan for Drug Dosing: NEW START IV VANCOMYCIN Consulting Physician: Dr. Laird Indication: Pneumonia Goal Trough: 15-20 SrCr: 1.36 CrCl: 93 mL/min Comments: Patient ordered 2000mg IV x1 loading dose. Administered 05/19/24 @1120. Vancomycin Dose: Will start vancomycin 1250mg IV Q8h to start 05/19/24 @1900 Pending Level: 05/20/24 @1030, prior to 4th total dose per protocol Pharmacy Service will continue to monitor and adjust dosing as required.
[2024-05-19] MEDS: Sodium Ferric Gluconat/Sucrose 250 MG in 0.9% Normal Saline (250mL Bag) 250 ML 135 MG IV (18:08)
[2024-05-19 18:16] LABS: Bedside Glucose 93 mg/dL (74-106)
[2024-05-19] MEDS: Vancomycin HCl 1,250 MG in 0.9% Normal Saline (250mL Bag) 250 ML 167 MG IV (20:22)
[2024-05-19] MEDS: Atorvastatin Calcium 80 MG Tablet PO (21:42)
[2024-05-19] MEDS: Enoxaparin 40 MG/0.4 ML Syringe SC (22:00)
--- NOTE | 2024-05-19 22:04 | NURSING ---
Patient's propofol was not empty and continued to run at 15 mcg from 2099 to 2140 when the new bottle was hung.
[2024-05-20] VITALS (34 sets, daily range): BP systolic 99–141; BP diastolic 47–87; PULSE 68–86; RESP 12–22; TEMP 35.8–36.1; O2SAT 90–97; BMI 43.7
[2024-05-20 00:53] LABS: Bedside Glucose 92 mg/dL (74-106)
[2024-05-20] MEDS: Propofol 10MG/Ml 1,000 MG/100 ML Bottle 20.9 MG CONT INF ×2 (01:38→06:48)
[2024-05-20] MEDS: Vancomycin HCl 1,250 MG in 0.9% Normal Saline (250mL Bag) 250 ML 167 MG IV (03:55)
[2024-05-20 05:18] LABS: Absolute Lymphocyte Count 0.44 X10^3/uL (0.83-4.51); Absolute Neutrophil Count 3.2 X10^3/uL (2.0-7.7); Basophil# 0.01 X10^3/uL; Basophil% 0.2 % (0-1); Eosinophil# 0.15 X10^3/uL; Eosinophils% 3.7 % (0-5); Hematocrit 24.8 % (40-54); Hemoglobin 7.4 g/dL (13.0-16.5); Lymphocyte # 0.44 X10^3/ul (0.83-4.51); Lymphocyte % 10.7 % (19-41); Mean Corp Hgb Conc 29.8 g/dL (32-36); Mean Corpuscular Hgb 28.7 pg (27.0-32.0); Mean Corpuscular Volume 96.1 fL (80-94); Mean Platelet Vol. 11.9 fl (6.2-12.0); Monocyte% 7.3 % (0-10); NRBC Flagged by Analyzer 0 % (0-5); Neutrophil # 3.17 X10^3/uL (2.7-7.7); Neutrophil % 77.4 % (47-70); POSITIVE COUNT YES; POSITIVE DIFFERENTIAL YES; POSITIVE MORPHOLOGY YES; Platelet Count 90 K/mm3 (150-450); RBC Distribution Width CV 19.3 % (11.6-14.6); RBC Distribution Width SD 65.1 fl (35.1-43.9); Red Blood Count 2.58 M/mm3 (4.6-6.2); White Blood Count 4.1 K/mm3 (4.4-11.0)
[2024-05-20 05:37] LABS: ALB/GLOB Ratio 0.8 RATIO (0.9-2.4); AST(SGOT) 13 U/L (15-37); Alanine Aminotransfer ALT/SGPT 10 U/L (16-61); Albumin, Serum 2.4 g/dL (3.2-5.0); Alkaline Phosphatase 71 U/L (45-117); Anion Gap 3 (5-15); BUN 38 mg/dL (7-18); Chloride 107 mmol/L (98-107); Creatinine, Serum 1.46 mg/dL (0.70-1.30); EST Glomerular Filtration Rate 51 mL/min (>60); Est Glom Filt Rate - Afr Amer 62 mL/min (>60); Estimated Creatinine Clearance 86.63 ml/min; Glucose 124 mg/dL (74-106); Potassium 3.3 mmol/L (3.5-5.1); Protein, Total 5.4 g/dL (6.4-8.2); Sodium Level 146 mmol/L (136-145)
[2024-05-20] MEDS: Piperacil/Tazobactam 3.375 GM in 0.9% Normal Saline (50mL MB+) 50 ML IV ×3 (06:06→22:18)
[2024-05-20] MEDS: Levothyroxine 50 MCG Tablet PO (06:06)
[2024-05-20] MEDS: 0.9% Saline Lock 10 ML Syringe IV ×6 (06:07→21:03)
[2024-05-20 06:10] LABS: Phosphorus 4.2 mg/dL (2.5-4.9)
[2024-05-20 06:30] LABS: Differential Indicated SCAN CRITERIA MET
--- NOTE | 2024-05-20 06:34 | PN.HOSP_ITS ---
Reason for Visit Reason for Visit: Diagnoses Heart failure, unspecified (05/17/24) Shortness of breath (05/17/24) Hypoxemia (05/17/24) Subjective Subjective Patient overnight with no acute issues overnight nursing report, only noting needing to increase FiO2 to 70% as he had been at 60%. Discussed with nursing staff given MRSA screen negative will de-escalate also of IV vancomycin. COVID and respiratory panel has been negative. Gram stain with 4+ white blood cells otherwise no marked findings and currently preliminary respiratory cultures demonstrating normal rl but final is pending. Patient since presentation had initially been 380 pounds now down to 369 pounds with ongoing Lasix diuresis. Discussed with nursing staff awaiting cardiology repeat input to ascertain if more appropriate to de-escalate off diuretics at this time is still unclear if diastolic heart failure is a component versus pneumonia more so. Patient with no clinical evidence of fevers, chills, emesis, abdominal pain, chest pain however difficult as patient is sedated and intubated in the ICU. Objective Data Objective Data Vital Signs: Vital Signs Temp Pulse Resp BP Pulse Ox O2 Del Method O2 Flow Rate 96.8 F L 71 16 125/52 H 90 Mechanical Ventilator 4 05/20/24 06:00 05/20/24 06:00 05/20/24 06:00 05/20/24 06:00 05/20/24 06:00 05/20/24 06:00 05/18/24 09:16 FiO2 70 05/20/24 06:00 Oxygen Flow Rate (L/min) 4 Oxygen Delivery Method Mechanical Ventilator Weight: 369 lb 0.861 oz Body Mass Index (BMI) 43.7 Intake & Output: Intake and Output for Last 24 Hours 05/18/24 05/19/24 05/20/24 23:59 23:59 23:59 Intake Total 1115.20 / 1140.90 3290.22 / 3476.32 955.27 / 955.27 Output Total 4750 / 4750 6600 / 6600 1650 / 1650 Balance -3634.80 / -3609.10 -3309.78 / -3123.68 -694.73 / -694.73 Lab / Micro Data 05/20/24 05:00 05/20/24 12:15 Labs: Laboratory Results - last 24 hr 05/19/24 05:25: Differential Comment SCANNED, Platelet Estimate SLT DEC, Polychromasia 1+, Hypochromasia 1+, Anisocytosis 1+, Ovalocytes 1+, B- Natriuretic Peptide 372.5 H 05/19/24 07:05: Procalcitonin 0.18 H 05/19/24 11:33: POC Glucose 93 05/19/24 17:34: POC Glucose 93 05/20/24 00:34: POC Glucose 92 05/20/24 05:00: WBC 4.1 L, RBC 2.58 L, Hgb 7.4 L, Hct 24.8 L, MCV 96.1 H, MCH 28.7, MCHC 29.8 L, RDW Std Deviation 65.1 H, RDW Coeff of Tan 19.3 H, Plt Count 90 L, MPV 11.9, Immature Gran % (Auto) 0.700, Neut % (Auto) 77.4 H, Lymph % (Auto) 10.7 L, [place] % (Auto) 7.3, Eos % (Auto) 3.7, Baso % (Auto) 0.2, Absolute Neuts (auto) 3.2, Absolute Lymphs (auto) 0.44 L, Nucleated RBC % 0, Sodium 146 H , Potassium 3.3 L, Chloride 107, Carbon Dioxide 36.0 H, Anion Gap 3 L, BUN 38 H, Creatinine 1.46 H, Estim Creat Clear Calc 86.63, Est GFR (MDRD) Af Amer 62, Est GFR (MDRD) Non-Af 51 L, BUN/Creatinine Ratio 26.0 H, Glucose 124 H, Calcium 8.0 L, Phosphorus 4.2, Magnesium 2.0, Total Bilirubin 1.20 H, AST 13 L, ALT 10 L, Alkaline Phosphatase 71, Total Protein 5.4 L, Albumin 2.4 L, Globulin 3.0, A lbumin/Globulin Ratio 0.8 L Micro: Microbiology 05/19/24 09:10 Sputum, Induced/Lukens Gram Stain - Final 05/18/24 17:40 Sputum, Tracheal Aspirate Gram Stain - Final 05/18/24 17:40 Sputum, Tracheal Aspirate Respiratory Culture - Preliminary Appears to be normal respiratory rl. Further studies to follow. 05/19/24 09:10 Mucosa - Nasopharyngeal Influenza & RSV (PCR) - Final 05/19/24 07:55 Nasal Secretion MRSA (PCR) - Final 05/19/24 07:55 Urine Catheter - Mccarthy Legionella Antigen - Final 05/19/24 07:55 Urine Catheter - Mccarthy Streptococcus pneumoniae Antigen (M - Final 05/17/24 22:30 Mucosa - Nasopharyngeal Respiratory Panel (PCR) - Final 05/17/24 22:49 Nasal Secretion SARS-CoV-2 Antigen (Rapid) - Final Radiography Diagnostic Testing: Radiology Impression Chest X-Ray 05/19/24 06:19 IMPRESSION: Increasing opacification of the left lower lobe. Malposition of the endotracheal tube. Electronically Signed: Gerry Blanton MD at 8:31 EST , Chest X-Ray 05/19/24 07:05 IMPRESSION: 1. Improving bibasilar atelectasis. 2. ET tube remains in place with its tip suboptimally positioned at the level of the thoracic inlet, and advancement is again suggested. 3. Satisfactory enteric tube positioning. Electronically Signed: Brandt Adams MD at 8:52 EST , Chest X-Ray 05/19/24 09:23 IMPRESSION: 1. Overinflated tracheal cuff as described with tip of the ET tube 3.6 cm above the dayana. 2. Increasing central pulmonary edema/pneumonia. Electronically Signed: Gerry Blanton MD at 10:00 EST , Chest X-Ray 05/19/24 09:45 IMPRESSION: Satisfactory repositioning of ET tube and deflation of the tracheal cuff. No other interval change. Electronically Signed: Gerry Blanton MD at 10:23 EST , Rhythm Strip Rhythm Strip: Sinus Rhythm Rate: 90 Ectopy: None Physical Exam Narrative Physical Examination: General: Intubated and sedated, laying in the ICU bed, currently no acute distress. Skin: Normal color, normal turgor, no icterus, no cyanosis except for various staged ecchymoses, abrasions, significant bilateral lower extremity venous stasis skin changes. HEENT: AT/NC, EOM unable to be assessed given intubated/sedated status, PERRLA, mildly dry MM, ET tube in place. Lungs: Diminished, greater bases, distant breath sounds, symmetric rise, intubated. Heart: Regular rate and rhythm; no gallop, rub audible. Abdomen: Soft, morbidly obese, NTTP, distant BS, difficult to discern distention given habitus. Extremities: No cyanosis, no clubbing, see skin, significant distal 3+ pitting edema. Neurological: Intubated and sedated, laying in the ICU bed, cognitive function not baseline intact intact, pupils equally reactive to light and accommodation, cranial nerves difficult to assess given intubated and sedated status, not moving extremities currently, strength difficult to assess again as intubated and sedated. Psychiatric: Affect appears flat, no acute evidence of depressive or anxiety feelings. Assessment & Plan Assessment/Plan (1) Congestive heart failure: QUALIFIERS: Heart failure chronicity: acute Heart failure type: u nspecified Qualified Code(s): I50.9 - Heart failure, unspecified PLAN: Plan The patient is a 63 y/o M w/ PMHx: CKD stage III unclear subtype per GFR trending, Diabetes mellitus type II, GLENN noncompliant with PAP therapy, Morbid obesity, Hypothyroidism, Chronic macrocytic anemia/chronic B12 deficiency/Fe deficiency anemia following with Dr. Rain, Chronic peripheral edema on lasix who presents to the [facility] ED on 05/17/24 with history of increasing dyspnea as well as worsening lower extremity swelling over the last several days with recent PRBC 2 unit administration and 1 iron transfusion the prior Wednesday secondary to hemoglobin of 5.4 with unfortunately noncompliance with his Lasix following prompting ED evaluation. #1. Acute metabolic encephalopathy secondary to acute hypoxic and hypercarbic respiratory failure suspected multifactorial, likely component of untreated GLENN, hypoventilation morbid obesity syndrome as well as some concern still for possible HF with preserved EF in addition to Pneumonia with copious purulent secretions, unclear organism: Initially admitted to the PCU and initiated on IV twice daily Lasix regimen however minimal urine output and weight had actually increased, transitioned to Lasix lower dose drip with cardiology consultation requested but 05/18/2024 patient became encephalopathic, ABG obtained with notable hypoxia and hypercapnia with BiPAP trial and eventual transition to the ICU with AVAPS trial unsuccessful. 05/18/2024 late afternoon patient eventually intubated, sedated. Repeat limited echocardiogram per cardiology recommendation with study unfortunately difficult with mild concentric LVH, LVEF 70%, trace MV regurgitation, AV not well-visualized in short axis possibly sclerotic, left atrium severely enlarged. 05/18/2024 CTPA obtained with limited visualization given patient's size with no definitive PE with very low lung volumes and prominent consolidations at the bases worse on the right. 05/18/24 overnight following 2 u PRBC administration required increased FiO2 supplementation. ETT repositioned but despite this still appeared malpositioned. 05/19/24 Dr. Laird evaluation with scope with confirmed inappropriate ETT placement with extubation/reintubation successfully with improved settings. During process noted copious purulent secretions. Patient broad-spectrum antibiotic therapy initiated with IV vancomycin and IV Zosyn. COVID-negative, urine antigens negative, flu and RSV PCR again performed and they were negative again. Sputum culture was sent as well as Gram stain and as noted currently no marked findings and preliminarily noted normal rl but awaiting final. 05/19/2024 overnight patient Lasix drip was increased with improved diuresis with weight significantly decreased down from 380 to 369 pounds, awaiting cardiology repeat input to ascertain if appropriate to de-escalate off as they were not convinced that heart failure was necessarily involved. MRSA screen is negative thus 05/20/2024 will de-escalate off IV vancomycin. #2. Chronic macrocytic anemia/iron deficiency anemia: Patient with significant ongoing issues with anemia, following with oncology Dr. Toussaint with aggressive outpatient evaluation for source including upper and lower endoscopies with Dr. Orozco with outpatient transfusions as noted, current plan for outpatient follow-up with Dr. Molina with possible repeat endoscopy versus capsule endoscopy, FOBT requested upon admission. Admission 05/17/2024 hemoglobin 7.0, MCV 105 with repeat 05/18/2024 hemoglobin 7.0, MCV 107.9. Patient is on chronic B12 supplementation also of note. Given persistent anemia in the setting with now intubated status administered 2 u PRBC overnight as noted above. 05/19/24 Hgb 7.4, MCV 99.2. 05/19/2024 fe IV administration administered. 05/20/2024 hemoglobin 7.4, MCV 96.1. #3. Hyponatremia, potentially related with his recent resuscitation/blood: 05/19/2024 sodium 146, discussed with ICU nursing staff with ongoing scheduled free water administration with tube feeds. 05/20/2024 CMP with sodium 146, similar. Again awaiting cardiology input to ascertain if able to de-escalate off IV Lasix drip. #4. Diabetes mellitus type II: Per current list does not appear to be on any diabetic regimen, last hemoglobin A1c noted 06/17/2023 6.7%, 05/19/2024 hemoglobin A1c 5.6%. Will maintain on q6h accu checks w/ ISS. #5. Morbid Obesity: Weight loss and lifestyle changes encouraged. #6. Hypothyroidism: We will continue patient on levothyroxine regimen, TSH 1.550, free T4 0.97, normal range. #7. GLENN: Noncompliant with PAP therapy as noted, currently intubated and sedated. #8. Chronic Kidney Disease Stage III unclear subtype per GFR trending: Admission BUN/Cr 44/1.46, baseline renal function appears primarily 1.2-1.4, 05/20/24 BUN/creatinine 38/1.46, GFR 51, repeat BMP in AM. #9. DVT prophylaxis: Patient had initially been placed on heparin drip cautiously given his underlying anemia pending CTA chest however this resulted with no evidence of any PE and was discontinued. Patient transition to 05/19/24 AM to Lovenox twice daily regimen #10. CODE STATUS: Full code. Charges/Coding Visit Charges Inpatient E&M: 89798 Subs Hosp L3
[2024-05-20 06:35] LABS: Bedside Glucose 108 mg/dL (74-106)
--- NOTE | 2024-05-20 07:29 | CASEMGMT ---
Social Work As per admitting RN, pt does not have LW/POA and declined additional information at that time. JESSICA Mcfadden
[2024-05-20] MEDS: TITRATION PARAMETER CHANGE 1 EACH IV (07:46)
[2024-05-20] MEDS: Potassium Chloride 10mEq/100mL 10 MEQ/100 ML IV.SOLN. 100 MEQ IV BOLUS ×4 (08:16→18:51)
[2024-05-20 08:29] LABS: Anisocytosis 2+; Differential Comment SCANNED; Macrocytosis 1+; Microcytosis 1+
[2024-05-20] MEDS: Metoprolol Tartrate 25 MG Tablet 12.5 MG PO ×2 (09:25→22:19)
[2024-05-20] MEDS: Aspirin 81 MG TAB.CHEW PO (09:25)
[2024-05-20] MEDS: Enoxaparin 40 MG/0.4 ML Syringe SC ×2 (09:30→21:05)
[2024-05-20] MEDS: Chlorhexidine 15 ML PO ×2 (09:39→21:06)
[2024-05-20] MEDS: Pantoprazole Sodium 40 MG in 0.9% Normal Saline (100mL MB+) 100 ML 330 MG IV ×2 (09:55→21:04)
[2024-05-20] MEDS: Sodium Ferric Gluconat/Sucrose 250 MG in 0.9% Normal Saline (250mL Bag) 250 ML 135 MG IV (10:19)
[2024-05-20] MEDS: fentaNYL drip 100 ML 10 MCG CONT INF ×2 (10:29→21:00)
--- NOTE | 2024-05-20 10:58 | NURSING ---
Fentanyl bag was due to start at new bag at 845 but the bag was not empty so the bag was continually running until the new bag was hung per SEP. CPOT 1 throughout that time
[2024-05-20] MEDS: Propofol 10MG/Ml 1,000 MG/100 ML Bottle 20.1 MG CONT INF (11:24)
[2024-05-20] MEDS: Furosemide 500 MG in Empty Viaflex 50 mL 1 EACH CONT INF (12:08)
[2024-05-20] MEDS: Vital AF 1.2 Cal Liquid 1,000 ML 75 ML GT (12:30)
[2024-05-20 12:52] LABS: Potassium 3.5 mmol/L (3.5-5.1)
[2024-05-20 13:38] LABS: Bedside Glucose 128 mg/dL (74-106)
--- NOTE | 2024-05-20 13:56 | PN.CC_ITS ---
Objective Data Objective Data Vital Signs: Vital Signs Last response 3 Temperature 36.1 C L 05/20/24 12:00 Temperature Source Temporal 05/20/24 12:00 Pulse Rate 83 05/20/24 13:37 Pulse Strength Normal (2+) 05/20/24 10:00 Respiratory Rate 16 05/20/24 13:37 Respiratory Effort Mechanically Ventilated 05/20/24 08:00 Respiratory Depth Normal 05/20/24 12:00 Respiratory Pattern Normal 05/20/24 12:00 Blood Pressure 105/49 L 05/20/24 12:00 Blood Pressure Mean 67 05/20/24 12:00 Blood Pressure Source Monitor 05/20/24 12:00 Blood Pressure Position Semi-Fowlers 05/20/24 12:00 Blood Pressure Location Left Arm 05/20/24 12:00 Pulse Ox 93 05/20/24 13:37 Oxygen Delivery Method Mechanical Ventilator 05/20/24 12:00 Oxygen Flow Rate (L/min) 4 05/18/24 09:16 Fraction of Inspired Oxygen (FIO2) 55 05/20/24 13:37 I&O: I&O Last 24 Hours 3 05/19/24 05/20/24 05/20/24 23:59 11:59 23:59 Intake Total 2025.00 / 3476.32 2356.08 / 2808.24 452.16 / 2808.24 Output Total 3100 / 6600 2350 / 2500 150 / 2500 Balance -1075.00 / -3123.68 6.08 / 308.24 302.16 / 308.24 I&O: Total Stay 3 05/17/24 15:40 thru 05/20/24 13:21 Intake Total 7213.66 Output Total 47515 Balance -7736.34 Current Meds Ordered / Administered: Current meds ordered / Administered 3 Generic Name Dose Route Start Last Admin Trade Name Freq PRN Reason Stop Dose Admin Acetaminophen 650 mg 05/17/24 21:25 Acetaminophen 325 Mg Tablet PO Q6H PRN PRN Pain 1-10 Or Fever >100.7 Albuterol Sulfate 2.5 mg 05/17/24 21:25 Albuterol 2.5 Mg/3 Ml Vial.Neb. INHALATION Q2H PRN PRN SOB &/OR WHEEZING Aspirin 81 mg 05/19/24 08:00 05/20/24 09:25 Aspirin 81 Mg Tab.Chew PO 81 mg BREAKFAST YAZMIN Administration Atorvastatin Calcium 80 mg 05/18/24 22:00 05/19/24 21:42 Atorvastatin Calcium 80 Mg Tablet PO 80 mg QHS YAZMIN Administration Chlorhexidine Gluconate 15 ml 05/18/24 22:00 05/20/24 09:39 Chlorhexidine 15 Ml PO 15 ml BID YAZMIN Administration Enoxaparin Sodium 40 mg 05/19/24 22:00 05/20/24 09:30 Enoxaparin 40 Mg/0.4 Ml Syringe SC 40 mg BID YAZMIN Administration Glucagon 1 mg 05/18/24 16:42 Glucagon 1 Mg/Ml Syringe IM X1 PRN Hypoglycemia Protocol Hydralazine HCl 10 mg 05/18/24 16:42 Hydralazine 20 Mg/Ml Vial IV Q4H PRN PRN SBP > 160 Protocol Propofol 1,000 mg in 100 mls @ 10.044 mls/hr 05/18/24 15:45 05/20/24 13:00 Diprivan CONT INF 15 mcg/kg/min .Q9H58M YAZMIN 15.1 mls/hr Titration Protocol 10 MCG/KG/MIN Pantoprazole Sodium 40 mg/ 110 mls @ 330 mls/hr 05/18/24 22:00 05/20/24 10:34 Sodium Chloride IV Infused Q12 YAZMIN Infusion Fentanyl 100 mls @ 5 mls/hr 05/18/24 15:45 05/20/24 10:29 CONT INF 100 mcg/hr UD YAZMIN 10 mls/hr Administration Protocol 50 MCG/HR Dextrose 250 mls @ 0 mls/hr 05/18/24 16:42 Dextrose 10%-Water IV .Q0M PRN HYPOGLYCEMIA Protocol As Directed Furosemide 500 mg/ N/A 50 mls @ 2 mls/hr 05/19/24 06:25 05/20/24 12:08 CONT INF 2 mls/hr .Q25H YAZMIN Administration Piperacillin Sod/Tazobactam 50 mls @ 12.5 mls/hr 05/19/24 14:00 05/20/24 10:23 Sod 3.375 gm/ Sodium Chloride IV Infused Q8 YAZMIN Infusion Enteral Nutritional Formula 1,000 mls @ 75 mls/hr 05/19/24 11:50 05/20/24 12:30 Vital Af 1.2 Raimundo Liquid GT 75 mls/hr .Q39H55S YAZMIN Administration Potassium Chloride 10 meq in 100 mls @ 100 mls/hr 05/20/24 13:45 05/20/24 13:53 IV BOLUS 05/20/24 14:44 100 mls/hr Q1H YAZMIN Administration Insulin Human Lispro 0 unit 05/19/24 12:00 05/20/24 12:30 Insulin Lispro 100 Unit/Ml Insuln.Pen SC Not Given Q6H [facility] Protocol Levothyroxine Sodium 50 mcg 05/18/24 06:00 05/20/24 06:06 Levothyroxine 50 Mcg Tablet PO 50 mcg 0600 YAZMIN Administration Melatonin 3 mg 05/17/24 21:25 Melatonin 3 Mg Tablet PO QHS PRN PRN INSOMNIA Metoprolol Tartrate 12.5 mg 05/18/24 22:00 05/20/24 09:25 Metoprolol Tartrate 25 Mg Tablet PO 12.5 mg BID YAZMIN Administration Protocol Ondansetron HCl 4 mg 05/17/24 21:25 Ondansetron 4 Mg/2 Ml Vial IV Q8H PRN PRN NAUSEA/VOMITING Senna/Docusate Sodium 2 tablet 05/17/24 21:25 Senna/Docusate Sodium 1 Tablet PO BID PRN PRN Constipation Sodium Chloride 10 - 40 ml 05/17/24 22:01 05/20/24 12:14 0.9% Saline Lock 10 Ml Syringe IV 10 ml UD PRN Administration SALINE FLUSH Sodium Chloride 5 ml 05/18/24 15:41 Sodium Cl For Inhalation 15 Ml Vial.Neb. INHALATION Q5M PRN Suctioning Lab / Micro Data Attestation: I reviewed the patient's lab results. 05/20/24 05:00 05/20/24 12:15 Labs: Laboratory Results - last 24 hr 05/19/24 17:34: POC Glucose 93 05/20/24 00:34: POC Glucose 92 05/20/24 05:00: WBC 4.1 L, RBC 2.58 L, Hgb 7.4 L, Hct 24.8 L, MCV 96.1 H, MCH 28.7, MCHC 29.8 L, RDW Std Deviation 65.1 H, RDW Coeff of Tan 19.3 H, Plt Count 90 L, MPV 11.9, Immature Gran % (Auto) 0.700, Neut % (Auto) 77.4 H, Lymph % (Auto) 10.7 L, [place] % (Auto) 7.3, Eos % (Auto) 3.7, Baso % (Auto) 0.2, Absolute Neuts (auto) 3.2, Absolute Lymphs (auto) 0.44 L, Nucleated RBC % 0, Differential Comment SCANNED, Anisocytosis 2+, Microcytosis 1+, Macrocytosis 1+, Sodium 146 H , Potassium 3.3 L, Chloride 107, Carbon Dioxide 36.0 H, Anion Gap 3 L, BUN 38 H, Creatinine 1.46 H, Estim Creat Clear Calc 86.63, Est GFR (MDRD) Af Amer 62, Est GFR (MDRD) Non-Af 51 L, BUN/Creatinine Ratio 26.0 H, Glucose 124 H, Calcium 8.0 L, Phosphorus 4.2, Magnesium 2.0, Total Bilirubin 1.20 H, AST 13 L, ALT 10 L, Alkaline Phosphatase 71, Total Protein 5.4 L, Albumin 2.4 L, Globulin 3.0, A lbumin/Globulin Ratio 0.8 L 05/20/24 06:14: POC Glucose 108 H 05/20/24 12:15: Potassium 3.5 05/20/24 12:27: POC Glucose 128 H Micro: Microbiology 05/19/24 09:10 Sputum, Induced/Lukens Gram Stain - Final 05/19/24 09:10 Sputum, Induced/Lukens Respiratory Culture - Preliminary Appears to be normal respiratory rl. Further studies to follow. 05/18/24 17:40 Sputum, Tracheal Aspirate Gram Stain - Final 05/18/24 17:40 Sputum, Tracheal Aspirate Respiratory Culture - Preliminary Appears to be normal respiratory rl. Further studies to follow. 05/19/24 09:10 Mucosa - Nasopharyngeal Influenza & RSV (PCR) - Final 05/19/24 07:55 Nasal Secretion MRSA (PCR) - Final Rhythm Strip Rhythm Strip: Sinus Rhythm Rate: 90 Ectopy: None Imaging Radiology Impression Venous Doppler Study 05/19/24 07:12 Interpretation Summary Deep veins of the lower extremities are bilaterally patent and compressible segmentally. There is no evidence of deep vein thrombosis on either side. Valvular competence appears intact within the proximal deep venous systems bilaterally. The great saphenous veins appear bilaterally patent and compressible segmentally. Ordering Physician: Jeimy Padilla Referring Physician: Angelic Gilmore Performed By: Santos Caballero RVT Assessment and Plan . Assessment and plan: 63 yrs old male with past medical history of GLENN, Hypthyroidism, Anemia, DM, Obesity, foot drop , OA presented to ED for shortness of breath. BIPAP was tried initially with out success and patient got intubated yesterday. ICU is consulted this morning # Acute hypoxic hypercapnic respiratory failure most likely due to Pneumonia vs fluid overload Underlying GLENN vs OHS Continue with vent support- weaning COVID negative- Send for flu/RSV Urine legionella and strept antigen Follow up on sputum culture Bronchodilators Empiric antibiotics with Ceftriaxone/Azithromycin On lasix drip 2mg/hour, monitor urine output and renal function Follow up with Cardiology # Pancytopenia Required PRBC transfusion Needs hematology evaluation # Hx of DM ISS Monitor blood sugar # Hypothyroidism Synthroid DVT prophylaxis: On Heparin Critical Care Time: 50 minutes The entirety of this encounter was done via Telemedicine Physical Exam Const General Appearance: patient mechanically ventilated Eyes EOMs intact bilaterally and no scleral icterus Neck full ROM Resp Auscultation: diminished lung sounds Subjective Subjective Stable with reduced vent requirements since ET tube changed out
[2024-05-20 17:29] LABS: Potassium 3.4 mmol/L (3.5-5.1)
[2024-05-20] MEDS: Propofol 10MG/Ml 1,000 MG/100 ML Bottle 15.1 MG CONT INF ×3 (17:30→23:15)
--- NOTE | 2024-05-20 17:46 | CON.PCM.CA_ITS ---
<Statement entered by Chico Robles MD - 06/03/24 12:56> Pt seen & evaluated w/NICHOLE. I personally interviewed & exam the pt. I was involved in all aspects of pt's orders, interpretation of results & treatment HPI Consult Data Date of Consult: 06/04/24 HPI Narrative HPI Narrative: JEFFREY CONNORS, is a 63 M who presents [facility] Medical History Pancytopenia Back pain GLENN (obstructive sleep apnea) Hypothyroid Edema Nocturia Vitamin B12 deficiency Muscle spasm Iron deficiency anemia History of diabetes mellitus Chronic anemia Compression fracture of L2 Osteoarthritis of left knee Diabetes Bladder disease Dietary restriction Injury of head and neck History of pain when walking Walker as ambulation aid Foot drop, right Arthritis Chronic pain Non-smoker Home Medications ?Medication ?Instructions ?Recorded ?Last Taken ?Type levothyroxine 75 mcg tablet 50 mcg PO DAILY 01/10/24 Unknown History mecobalamin (vitamin B12) 1,000 1,000 mcg PO DAILY multivitamin 01/10/24 05/17/24 History mcg chewable tablet furosemide 20 mg tablet (Lasix) 40 mg PO DAILY Diuretic 05/08/24 05/16/24 History atorvastatin 80 mg tablet 40 mg (1/2 x 80 mg) PO QHS #0 tabs 05/30/24 Unknown Rx metoprolol tartrate 25 mg tablet 12.5 mg (1/2 x 25 mg) PO BID #0 05/30/24 Unknown Rx tabs pantoprazole 40 mg tablet,delayed 40 mg PO BID #0 tabs 05/30/24 Unknown Rx release sennosides 8.6 mg-docusate sodium 2 tab PO BID #0 tabs 05/30/24 Unknown Rx 50 mg tablet (Stimulant Laxative Plus) Allergy/AdvReac Type Severity Reaction Status Date / Time hydromorphone (From Dilaudid) Allergy Severe Anaphylaxis Verified 05/17/24 21:56 gabapentin AdvReac Intermediate HALLUCINATI Verified 05/17/24 21:56 ONS Family History Other Multiple sclerosis Surgical History Hx of vertebroplasty History of total left knee replacement Hx of left cataract extraction Hx of eye surgery Social History household members: spouse Smoking Status: Never smoker alcohol intake: never substance use type: does not use Risk Stratification Risk Stratification Applicable: No Objective Data Vital Signs: Vital Signs Temp Pulse Resp BP Pulse Ox O2 Del Method O2 Flow Rate 96.5 F L 84 17 110/53 L 93 Mechanical Ventilator 4 05/20/24 16:00 05/20/24 16:00 05/20/24 16:00 05/20/24 16:00 05/20/24 16:00 05/20/24 16:00 05/18/24 09:16 FiO2 55 05/20/24 16:00 Oxygen Flow Rate (L/min) 4 Oxygen Delivery Method Mechanical Ventilator Weight: 369 lb 0.861 oz Body Mass Index (BMI) 43.7 Intake & Output: Intake and Output for Last 24 Hours 05/18/24 05/19/24 05/20/24 23:59 23:59 23:59 Intake Total 1115.20 / 1140.90 3290.22 / 3476.32 3183.81 / 3183.81 Output Total 4750 / 4750 6600 / 6600 3800 / 3800 Balance -3634.80 / -3609.10 -3309.78 / -3123.68 -616.19 / -616.19 Lab / Micro Data 05/31/24 05:29 05/31/24 05:29 Labs: Laboratory Results - last 24 hr 05/19/24 17:34: POC Glucose 93 05/20/24 00:34: POC Glucose 92 05/20/24 05:00: WBC 4.1 L, RBC 2.58 L, Hgb 7.4 L, Hct 24.8 L, MCV 96.1 H, MCH 28.7, MCHC 29.8 L, RDW Std Deviation 65.1 H, RDW Coeff of Tan 19.3 H, Plt Count 90 L, MPV 11.9, Immature Gran % (Auto) 0.700, Neut % (Auto) 77.4 H, Lymph % (Auto) 10.7 L, [place] % (Auto) 7.3, Eos % (Auto) 3.7, Baso % (Auto) 0.2, Absolute Neuts (auto) 3.2, Absolute Lymphs (auto) 0.44 L, Nucleated RBC % 0, Differential Comment SCANNED, Anisocytosis 2+, Microcytosis 1+, Macrocytosis 1+, Sodium 146 H , Potassium 3.3 L, Chloride 107, Carbon Dioxide 36.0 H, Anion Gap 3 L, BUN 38 H, Creatinine 1.46 H, Estim Creat Clear Calc 86.63, Est GFR (MDRD) Af Amer 62, Est GFR (MDRD) Non-Af 51 L, BUN/Creatinine Ratio 26.0 H, Glucose 124 H, Calcium 8.0 L, Phosphorus 4.2, Magnesium 2.0, Total Bilirubin 1.20 H, AST 13 L, ALT 10 L, Alkaline Phosphatase 71, Total Protein 5.4 L, Albumin 2.4 L, Globulin 3.0, A lbumin/Globulin Ratio 0.8 L 05/20/24 06:14: POC Glucose 108 H 05/20/24 12:15: Potassium 3.5 05/20/24 12:27: POC Glucose 128 H 05/20/24 17:00: Potassium 3.4 L Micro: Microbiology 05/19/24 09:10 Sputum, Induced/Lukens Gram Stain - Final 05/19/24 09:10 Sputum, Induced/Lukens Respiratory Culture - Preliminary Appears to be normal respiratory rl. Further studies to follow. Rhythm Strip Rhythm Strip: Sinus Rhythm Rate: 90 Ectopy: None Cardiology Labs/Tests 05/20/24 05:00: WBC 4.1 L, RBC 2.58 L, Hgb 7.4 L, Hct 24.8 L, MCV 96.1 H, MCH 28.7, MCHC 29.8 L, Plt Count 90 L, MPV 11.9, Immature Gran % (Auto) 0.700, Neut % (Auto) 77.4 H, Lymph % (Auto) 10.7 L, [place] % (Auto) 7.3, Eos % (Auto) 3.7, Baso % (Auto) 0.2, Absolute Neuts (auto) 3.2, Nucleated RBC % 0, Sodium 146 H, P otassium 3.3 L, Chloride 107, Carbon Dioxide 36.0 H, Anion Gap 3 L, BUN 38 H, C reatinine 1.46 H, Est GFR (MDRD) Af Amer 62, Est GFR (MDRD) Non-Af 51 L, B UN/Creatinine Ratio 26.0 H, Glucose 124 H, Calcium 8.0 L, Phosphorus 4.2, Magnesium 2.0, Total Bilirubin 1.20 H 05/20/24 12:15: Potassium 3.5 05/20/24 17:00: Potassium 3.4 L Rhythm: EKG: ECHO: Stress Test: Cardiac Cath: PCI: CT Surgery: Holter monitor: EPS: PPM: CXR: Chest CT Scan: Radiography Diagnostic Testing: Radiology Impression Venous Doppler Study 05/19/24 07:12 Interpretation Summary Deep veins of the lower extremities are bilaterally patent and compressible segmentally. There is no evidence of deep vein thrombosis on either side. Valvular competence appears intact within the proximal deep venous systems bilaterally. The great saphenous veins appear bilaterally patent and compressible segmentally. Ordering Physician: Jeimy Padilla Referring Physician: Angelic Gilmore Performed By: Santos Caballero RVT
--- NOTE | 2024-05-20 17:54 | PN.CARD_ITS ---
Objective Data Vital Signs: Vital Signs Temp Pulse Resp BP Pulse Ox O2 Del Method O2 Flow Rate 96.5 F L 84 16 110/53 L 92 Mechanical Ventilator 4 05/20/24 16:00 05/20/24 17:47 05/20/24 17:47 05/20/24 16:00 05/20/24 17:47 05/20/24 16:00 05/18/24 09:16 FiO2 55 05/20/24 17:47 Oxygen Flow Rate (L/min) 4 Oxygen Delivery Method Mechanical Ventilator Weight: 369 lb 0.861 oz Body Mass Index (BMI) 43.7 Intake & Output: Intake and Output for Last 24 Hours 05/18/24 05/19/24 05/20/24 23:59 23:59 23:59 Intake Total 1115.20 / 1140.90 3290.22 / 3476.32 3183.81 / 3183.81 Output Total 4750 / 4750 6600 / 6600 3800 / 3800 Balance -3634.80 / -3609.10 -3309.78 / -3123.68 -616.19 / -616.19 Lab / Micro Data 05/20/24 05:00 05/20/24 17:00 Labs: Laboratory Results - last 24 hr 05/19/24 17:34: POC Glucose 93 05/20/24 00:34: POC Glucose 92 05/20/24 05:00: WBC 4.1 L, RBC 2.58 L, Hgb 7.4 L, Hct 24.8 L, MCV 96.1 H, MCH 28.7, MCHC 29.8 L, RDW Std Deviation 65.1 H, RDW Coeff of Tan 19.3 H, Plt Count 90 L, MPV 11.9, Immature Gran % (Auto) 0.700, Neut % (Auto) 77.4 H, Lymph % (Auto) 10.7 L, [place] % (Auto) 7.3, Eos % (Auto) 3.7, Baso % (Auto) 0.2, Absolute Neuts (auto) 3.2, Absolute Lymphs (auto) 0.44 L, Nucleated RBC % 0, Differential Comment SCANNED, Anisocytosis 2+, Microcytosis 1+, Macrocytosis 1+, Sodium 146 H , Potassium 3.3 L, Chloride 107, Carbon Dioxide 36.0 H, Anion Gap 3 L, BUN 38 H, Creatinine 1.46 H, Estim Creat Clear Calc 86.63, Est GFR (MDRD) Af Amer 62, Est GFR (MDRD) Non-Af 51 L, BUN/Creatinine Ratio 26.0 H, Glucose 124 H, Calcium 8.0 L, Phosphorus 4.2, Magnesium 2.0, Total Bilirubin 1.20 H, AST 13 L, ALT 10 L, Alkaline Phosphatase 71, Total Protein 5.4 L, Albumin 2.4 L, Globulin 3.0, A lbumin/Globulin Ratio 0.8 L 05/20/24 06:14: POC Glucose 108 H 05/20/24 12:15: Potassium 3.5 05/20/24 12:27: POC Glucose 128 H 05/20/24 17:00: Potassium 3.4 L Micro: Microbiology 05/19/24 09:10 Sputum, Induced/Lukens Gram Stain - Final 05/19/24 09:10 Sputum, Induced/Lukens Respiratory Culture - Preliminary Appears to be normal respiratory rl. Further studies to follow. Rhythm Strip Rhythm Strip: Sinus Rhythm Rate: 90 Ectopy: None Cardiology Labs/Tests 05/20/24 05:00: WBC 4.1 L, RBC 2.58 L, Hgb 7.4 L, Hct 24.8 L, MCV 96.1 H, MCH 28.7, MCHC 29.8 L, Plt Count 90 L, MPV 11.9, Immature Gran % (Auto) 0.700, Neut % (Auto) 77.4 H, Lymph % (Auto) 10.7 L, [place] % (Auto) 7.3, Eos % (Auto) 3.7, Baso % (Auto) 0.2, Absolute Neuts (auto) 3.2, Nucleated RBC % 0, Sodium 146 H, P otassium 3.3 L, Chloride 107, Carbon Dioxide 36.0 H, Anion Gap 3 L, BUN 38 H, C reatinine 1.46 H, Est GFR (MDRD) Af Amer 62, Est GFR (MDRD) Non-Af 51 L, B UN/Creatinine Ratio 26.0 H, Glucose 124 H, Calcium 8.0 L, Phosphorus 4.2, Magnesium 2.0, Total Bilirubin 1.20 H 05/20/24 12:15: Potassium 3.5 05/20/24 17:00: Potassium 3.4 L Rhythm: EKG: ECHO: Stress Test: Cardiac Cath: PCI: CT Surgery: Holter monitor: EPS: PPM: CXR: Chest CT Scan: Radiography Diagnostic Testing: Radiology Impression Venous Doppler Study 05/19/24 07:12 Interpretation Summary Deep veins of the lower extremities are bilaterally patent and compressible segmentally. There is no evidence of deep vein thrombosis on either side. Valvular competence appears intact within the proximal deep venous systems bilaterally. The great saphenous veins appear bilaterally patent and compressible segmentally. Ordering Physician: Jeimy Padilla Referring Physician: Angelic Gilmore Performed By: Santos Caballero RVT Physical Exam Cardio Cardio Narrative: Patient seen and evaluated in ICU Along with nursing staff Intubated on a ventilator support and has been on propofol and fentanyl The underlying cardiac rhythm is sinus rhythm Has been stable hemodynamically As per nursing staff patient was responsive Cardiac examination S1-S2 is irregular Chest examination, mildly diminished air entry bilateral Examination lower extremity +2 lower extremity edema noted. Assessment & Plan Assessment/Plan (1) Pancytopenia: (2) GLENN (obstructive sleep apnea): (3) SOB (shortness of breath): PLAN: Cardiac care plan recommendation 63-year-old patient who has acute hypoxic hypercapnic respiratory failure and has underlying GLENN and has been on ventilatory support. cardiac evaluation by echocardiogram was limited due to the body habitus and the patient being on a ventilator Overall LV function is preserved as well as RV systolic function Limited study to comment on the valvular structure Patient has been on IV Lasix infusion Has other medical comorbidities With history of pancytopenia, hypothyroidism, chronic venous insufficiency with venous stasis of both lower extremity. Severe anemia and this admission requiring blood transfusion initial set of hemoglobin is 5.4 and the hemoglobin is 7.8. Also has renal insufficiency with elevated creatinine of 1.46. Cardiac care plan; From cardiac standpoint plan will be conservative management The underlying etiology is secondary to his GLENN with acute hypoxic hypercapnic respiratory failure To continue supportive treatment I discussed with the nursing staff review all the current evaluation here in the hospital as well as the medication including the air sampling and monitoring the lab results Patient has been diuresing very well on the current infusion of diuretics Lasix Continue to monitor electrolytes renal function magnesium. No further cardiac recommendation at this point Chico Robles MD,FACC,[facility] [place]
[2024-05-20 18:36] LABS: Bedside Glucose 136 mg/dL (74-106)
--- NOTE | 2024-05-20 18:39 | NURSING ---
Per Potassium protocol pt should have gotten a total of 20meQ Kcl prior to K recheck. Pt is only got 10mEq and is going to get another 10mEq per order.
[2024-05-20] MEDS: Atorvastatin Calcium 80 MG Tablet PO (21:06)
[2024-05-20 21:44] LABS: Anion Gap 4 (5-15); BUN 39 mg/dL (7-18); BUN/Creat Ratio 24.1 RATIO (10-20); Calcium,Total 7.9 mg/dL (8.5-10.1); Chloride 107 mmol/L (98-107); Creatinine, Serum 1.62 mg/dL (0.70-1.30); EST Glomerular Filtration Rate 46 mL/min (>60); Est Glom Filt Rate - Afr Amer 55 mL/min (>60); Estimated Creatinine Clearance 77.43 ml/min; Glucose 141 mg/dL (74-106); Potassium 3.4 mmol/L (3.5-5.1); Sodium Level 147 mmol/L (136-145)
[2024-05-20] MEDS: Potassium Chloride 20mEq/100mL 20 MEQ/100 ML IV.SOLN. 100 MEQ IV BOLUS (22:26)
[2024-05-21] VITALS (37 sets, daily range): BP systolic 92–139; BP diastolic 43–89; PULSE 74–91; RESP 14–18; TEMP 36.1–37.1; O2SAT 91–98; BMI 43.7
[2024-05-21 00:53] LABS: Anion Gap 1 (5-15); BUN 38 mg/dL (7-18); BUN/Creat Ratio 23.5 RATIO (10-20); Calcium,Total 7.8 mg/dL (8.5-10.1); Chloride 106 mmol/L (98-107); Creatinine, Serum 1.62 mg/dL (0.70-1.30); EST Glomerular Filtration Rate 46 mL/min (>60); Est Glom Filt Rate - Afr Amer 55 mL/min (>60); Estimated Creatinine Clearance 77.43 ml/min; Glucose 150 mg/dL (74-106); Potassium 3.6 mmol/L (3.5-5.1); Sodium Level 145 mmol/L (136-145)
[2024-05-21 01:00] LABS: Bedside Glucose 142 mg/dL (74-106)
[2024-05-21] MEDS: Propofol 10MG/Ml 1,000 MG/100 ML Bottle 15.1 MG CONT INF ×4 (05:00→23:16)
[2024-05-21] MEDS: Vital AF 1.2 Cal Liquid 1,000 ML 75 ML GT ×2 (05:08→20:45)
[2024-05-21 05:28] LABS: Absolute Lymphocyte Count 0.45 X10^3/uL (0.83-4.51); Absolute Neutrophil Count 2.9 X10^3/uL (2.0-7.7); Basophil# 0.01 X10^3/uL; Basophil% 0.3 % (0-1); Eosinophil# 0.16 X10^3/uL; Eosinophils% 4.1 % (0-5); Hematocrit 24.5 % (40-54); Hemoglobin 7.3 g/dL (13.0-16.5); Lymphocyte # 0.45 X10^3/ul (0.83-4.51); Lymphocyte % 11.5 % (19-41); Mean Corp Hgb Conc 29.8 g/dL (32-36); Mean Corpuscular Hgb 28.5 pg (27.0-32.0); Mean Corpuscular Volume 95.7 fL (80-94); Mean Platelet Vol. 10.4 fl (6.2-12.0); Monocyte# 0.36 X10^3/uL; Monocyte% 9.2 % (0-10); NRBC Flagged by Analyzer 0 % (0-5); Neutrophil # 2.91 X10^3/uL (2.7-7.7); Neutrophil % 74.1 % (47-70); POSITIVE COUNT YES; POSITIVE DIFFERENTIAL YES; Platelet Count 88 K/mm3 (150-450); RBC Distribution Width CV 18.7 % (11.6-14.6); RBC Distribution Width SD 63.5 fl (35.1-43.9); Red Blood Count 2.56 M/mm3 (4.6-6.2); White Blood Count 3.9 K/mm3 (4.4-11.0)
[2024-05-21 05:52] LABS: ALB/GLOB Ratio 0.7 RATIO (0.9-2.4); AST(SGOT) 14 U/L (15-37); Alanine Aminotransfer ALT/SGPT 10 U/L (16-61); Albumin, Serum 2.2 g/dL (3.2-5.0); Alkaline Phosphatase 67 U/L (45-117); Anion Gap 3 (5-15); BUN 38 mg/dL (7-18); BUN/Creat Ratio 23.3 RATIO (10-20); Chloride 106 mmol/L (98-107); Creatinine, Serum 1.63 mg/dL (0.70-1.30); EST Glomerular Filtration Rate 45 mL/min (>60); Est Glom Filt Rate - Afr Amer 55 mL/min (>60); Estimated Creatinine Clearance 76.98 ml/min; Globulin 3.2 g/dL (2.2-4.2); Glucose 140 mg/dL (74-106); Magnesium 1.9 mg/dL (1.6-2.6); Phosphorus 4.2 mg/dL (2.5-4.9); Potassium 3.4 mmol/L (3.5-5.1); Protein, Total 5.4 g/dL (6.4-8.2); Sodium Level 146 mmol/L (136-145)
--- NOTE | 2024-05-21 06:34 | PN.HOSP_ITS ---
Reason for Visit Reason for Visit: Diagnoses Other pancytopenia (05/17/24) Obstructive sleep apnea (adult) (pediatric) (05/17/24) Heart failure, unspecified (05/17/24) Shortness of breath (05/17/24) Hypoxemia (05/17/24) Subjective Subjective Patient overnight with no acute events per nursing staff, currently de-escalated down to 45% FiO2. Patient has remained afebrile. Patient continues on IV Zosyn therapy for bilateral pneumonia unclear organism. Weight upon presentation 380 pounds 1.6 ounces with current weight 369 pound 4.38 ounces. Cardiology reevaluation 05/20/2024 with recommendation for continued diuresis at this time. Patient without any evidence of fevers, chills, nausea, emesis, abdominal pain, chest pain or dyspnea but again difficult assessment as does wake up to stimuli but intubated and sedated. Objective Data Objective Data Vital Signs: Vital Signs Temp Pulse Resp BP Pulse Ox O2 Del Method O2 Flow Rate 97.1 F L 81 16 113/54 L 95 Mechanical Ventilator 4 05/21/24 00:00 05/21/24 05:08 05/21/24 05:08 05/21/24 00:00 05/21/24 05:08 05/21/24 00:00 05/18/24 09:16 FiO2 50 05/21/24 05:08 Oxygen Flow Rate (L/min) 4 Oxygen Delivery Method Mechanical Ventilator Weight: 369 lb 4.388 oz Body Mass Index (BMI) 43.7 Intake & Output: Intake and Output for Last 24 Hours 05/19/24 05/20/24 05/21/24 23:59 23:59 23:59 Intake Total 3290.22 / 3476.32 4570.40 / 4741.73 849.33 / 849.33 Output Total 6600 / 6600 5300 / 5800 500 / 500 Balance -3309.78 / -3123.68 -729.60 / -1058.27 349.33 / 349.33 Lab / Micro Data 05/21/24 05:05 05/21/24 05:05 Labs: Laboratory Results - last 24 hr 05/20/24 05:00: Differential Comment SCANNED, Anisocytosis 2+, Microcytosis 1+, Macrocytosis 1+ 05/20/24 06:14: POC Glucose 108 H 05/20/24 12:15: Potassium 3.5 05/20/24 12:27: POC Glucose 128 H 05/20/24 17:00: Potassium 3.4 L 05/20/24 18:17: POC Glucose 136 H 05/20/24 21:10: Sodium 147 H, Potassium 3.4 L, Chloride 107, Carbon Dioxide 36.0 H, Anion Gap 4 L, BUN 39 H, Creatinine 1.62 H, Estim Creat Clear Calc 77.43, Est GFR (MDRD) Af Amer 55 L, Est GFR (MDRD) Non-Af 46 L, BUN/Creatinine Ratio 24.1 H , Glucose 141 H, Calcium 7.9 L 05/21/24 00:20: Sodium 145, Potassium 3.6, Chloride 106, Carbon Dioxide 37.0 H, Anion Gap 1 L, BUN 38 H, Creatinine 1.62 H, Estim Creat Clear Calc 77.43, Est GFR (MDRD) Af Amer 55 L, Est GFR (MDRD) Non-Af 46 L, BUN/Creatinine Ratio 23.5 H , Glucose 150 H, Calcium 7.8 L 05/21/24 00:25: POC Glucose 142 H 05/21/24 05:05: WBC 3.9 L, RBC 2.56 L, Hgb 7.3 L, Hct 24.5 L, MCV 95.7 H, MCH 28.5, MCHC 29.8 L, RDW Std Deviation 63.5 H, RDW Coeff of Tan 18.7 H, Plt Count 88 L, MPV 10.4, Immature Gran % (Auto) 0.800, Neut % (Auto) 74.1 H, Lymph % (Auto) 11.5 L, [place] % (Auto) 9.2, Eos % (Auto) 4.1, Baso % (Auto) 0.3, Absolute Neuts (auto) 2.9, Absolute Lymphs (auto) 0.45 L, Nucleated RBC % 0, Sodium 146 H , Potassium 3.4 L, Chloride 106, Carbon Dioxide 37.0 H, Anion Gap 3 L, BUN 38 H, Creatinine 1.63 H, Estim Creat Clear Calc 76.98, Est GFR (MDRD) Af Amer 55 L, E st GFR (MDRD) Non-Af 45 L, BUN/Creatinine Ratio 23.3 H, Glucose 140 H, Calcium 8.0 L, Phosphorus 4.2, Magnesium 1.9, Total Bilirubin 1.10 H, AST 14 L, ALT 10 L , Alkaline Phosphatase 67, Total Protein 5.4 L, Albumin 2.2 L, Globulin 3.2, A lbumin/Globulin Ratio 0.7 L Micro: Microbiology 05/19/24 09:10 Sputum, Induced/Lukens Gram Stain - Final 05/19/24 09:10 Sputum, Induced/Lukens Respiratory Culture - Preliminary Appears to be normal respiratory rl. Further studies to follow. 05/18/24 17:40 Sputum, Tracheal Aspirate Gram Stain - Final 05/18/24 17:40 Sputum, Tracheal Aspirate Respiratory Culture - Preliminary Appears to be normal respiratory rl. Further studies to follow. 05/19/24 09:10 Mucosa - Nasopharyngeal Influenza & RSV (PCR) - Final 05/19/24 07:55 Nasal Secretion MRSA (PCR) - Final 05/19/24 07:55 Urine Catheter - Mccarthy Legionella Antigen - Final 05/19/24 07:55 Urine Catheter - Mccarthy Streptococcus pneumoniae Antigen (M - Final 05/17/24 22:30 Mucosa - Nasopharyngeal Respiratory Panel (PCR) - Final 05/17/24 22:49 Nasal Secretion SARS-CoV-2 Antigen (Rapid) - Final Radiography Diagnostic Testing: Radiology Impression Venous Doppler Study 05/19/24 07:12 Interpretation Summary Deep veins of the lower extremities are bilaterally patent and compressible segmentally. There is no evidence of deep vein thrombosis on either side. Valvular competence appears intact within the proximal deep venous systems bilaterally. The great saphenous veins appear bilaterally patent and compressible segmentally. Ordering Physician: Jeimy Padilla Referring Physician: Angelic Gilmore Performed By: Santos Caballero RVT Rhythm Strip Rhythm Strip: Sinus Rhythm Rate: 90 Ectopy: None Physical Exam Narrative Physical Examination: General: Intubated and sedated, will intermittently arouse to stimulation, laying in the ICU bed, currently no acute distress. Skin: Normal color, normal turgor, no icterus, no cyanosis except for various staged ecchymoses, abrasions, significant bilateral lower extremity venous stasis skin changes. HEENT: AT/NC, EOM unable to be assessed given intubated/sedated status, PERRLA, mildly dry MM, ET tube in place. Lungs: Diminished, greater bases, distant breath sounds, symmetric rise, intubated. Heart: Regular rate and rhythm; no gallop, rub audible. Abdomen: Soft, morbidly obese, NTTP, distant BS, difficult to discern distention given habitus. Extremities: No cyanosis, no clubbing, see skin, improved bilateral lower extremity pedal to knee edema, skin less tight, still 2+. Neurological: Intubated and sedated, laying in the ICU bed, cognitive function not baseline intact intact, pupils equally reactive to light and accommodation, cranial nerves difficult to assess given intubated and sedated status, not moving extremities currently, strength difficult to assess again as intubated and sedated. Psychiatric: Affect appears flat, sedated, no acute evidence of depressive or anxiety feelings. Assessment & Plan Assessment/Plan (1) Congestive heart failure: QUALIFIERS: Heart failure chronicity: acute Heart failure type: u nspecified Qualified Code(s): I50.9 - Heart failure, unspecified PLAN: Plan The patient is a 63 y/o M w/ PMHx: CKD stage III unclear subtype per GFR trending, Diabetes mellitus type II, GLENN noncompliant with PAP therapy, Morbid obesity, Hypothyroidism, Chronic macrocytic anemia/chronic B12 deficiency/Fe deficiency anemia following with Dr. Rain, Chronic peripheral edema on lasix who presents to the [facility] ED on 05/17/24 with history of increasing dyspnea as well as worsening lower extremity swelling over the last several days with recent PRBC 2 unit administration and 1 iron transfusion the prior Wednesday secondary to hemoglobin of 5.4 with unfortunately noncompliance with his Lasix following prompting ED evaluation. #1. Acute metabolic encephalopathy secondary to acute hypoxic and hypercarbic respiratory failure suspected multifactorial, likely component of untreated GLENN, hypoventilation morbid obesity syndrome as well as some concern still for possible HF with preserved EF in addition to Pneumonia with copious purulent secretions, unclear organism: Initially admitted to the PCU and initiated on IV twice daily Lasix regimen however minimal urine output and weight had actually increased, transitioned to Lasix lower dose drip with cardiology consultation requested but 05/18/2024 patient became encephalopathic, ABG obtained with notable hypoxia and hypercapnia with BiPAP trial and eventual transition to the ICU with AVAPS trial unsuccessful. 05/18/2024 late afternoon patient eventually intubated, sedated. Repeat limited echocardiogram per cardiology recommendation with study unfortunately difficult with mild concentric LVH, LVEF 70%, trace MV regurgitation, AV not well-visualized in short axis possibly sclerotic, left atrium severely enlarged. 05/18/2024 CTPA obtained with limited visualization given patient's size with no definitive PE with very low lung volumes and prominent consolidations at the bases worse on the right. 05/18/24 overnight following 2 u PRBC administration required increased FiO2 supplementation. ETT repositioned but despite this still appeared malpositioned. 05/19/24 Dr. Laird evaluation with scope with confirmed inappropriate ETT placement with extubation/reintubation successfully with improved settings. During process noted copious purulent secretions. Patient broad-spectrum antibiotic therapy initiated with IV vancomycin and IV Zosyn with eventual de-escalation as noted. COVID-negative, urine antigens negative, flu and RSV PCR again performed and they were negative again. Sputum culture was sent as well as Gram stain and as noted currently no marked findings and preliminarily noted mixed normal respiratory rl. 05/19/2024 overnight patient Lasix drip was increased with improved diuresis with weight significantly decreased down from 380 to 369 pounds, awaiting cardiology repeat input to ascertain if appropriate to de- escalate off as they were not convinced that heart failure was necessarily involved. MRSA screen negative thus 05/20/2024 de-escalated off IV vancomycin. 05/20/2024 cardiology reevaluation with recommendation for continue Lasix diuresis but will need to come to some type of stop date to avoid any electrolyte abnormalities and still uncertain that it is associated with his current presentation per discussion with Dr. Solomon cardiology. Given final results sputum culture would plan 7-day course at this point of antibiotic therapy given findings noted per pulmonary medicine upon reintubation. #2. Chronic macrocytic anemia/iron deficiency anemia: Patient with significant ongoing issues with anemia, following with oncology Dr. Toussaint with aggressive outpatient evaluation for source including upper and lower endoscopies with Dr. Orozco with outpatient transfusions as noted, current plan for outpatient follow-up with Dr. Molina with possible repeat endoscopy versus capsule endoscopy, FOBT requested upon admission. Admission 05/17/2024 hemoglobin 7.0, MCV 105 with repeat 05/18/2024 hemoglobin 7.0, MCV 107.9. Patient is on chronic B12 supplementation also of note. Given persistent anemia in the setting with now intubated status administered 2 u PRBC overnight as noted above. 05/19/24 Hgb 7.4, MCV 99.2. 05/19/2024 fe IV administration administered. 05/21/2024 hemoglobin 7.3, MCV 95.7. #3. Hyponatremia, potentially related with his recent resuscitation/blood: 05/19/2024 sodium 146, discussed with ICU nursing staff with ongoing scheduled free water administration with tube feeds. 05/21/2024 CMP with sodium 146, similar. 05/20/2024 cardiology reevaluation with recommendation for continued diuresis, will need to continue to monitor electrolyte disturbances. #4. Diabetes mellitus type II: Per current list does not appear to be on any diabetic regimen, last hemoglobin A1c noted 06/17/2023 6.7%, 05/19/2024 hemoglobin A1c 5.6%. Will maintain on q6h accu checks w/ ISS. #5. Morbid Obesity: Weight loss and lifestyle changes encouraged. #6. Hypothyroidism: We will continue patient on levothyroxine regimen, TSH 1.550, free T4 0.97, normal range. #7. GLENN: Noncompliant with PAP therapy as noted, currently intubated and sedated. #8. Chronic Kidney Disease Stage III unclear subtype per GFR trending: Admission BUN/Cr 44/1.46, baseline renal function appears primarily 1.2-1.4, 05/20/24 BUN/creatinine 38/1.46, GFR 51--> 05/21/2024 BUN/creatinine 38/1.63, starting to trend upward thus will need to consider de-escalation off of Lasix therapy, 05/20/2024 evaluation per cardiology with recommended continuation, repeat BMP in AM. #9. DVT prophylaxis: Patient had initially been placed on heparin drip cautiously given his underlying anemia pending CTA chest however this resulted with no evidence of any PE and was discontinued. Patient transitioned to 05/19/24 AM to Lovenox twice daily regimen #10. CODE STATUS: Full code. Charges/Coding Visit Charges Inpatient E&M: 01580 Subs Hosp L3
[2024-05-21] MEDS: Piperacil/Tazobactam 3.375 GM in 0.9% Normal Saline (50mL MB+) 50 ML IV ×3 (06:38→21:29)
[2024-05-21] MEDS: Levothyroxine 50 MCG Tablet PO (06:38)
[2024-05-21] MEDS: fentaNYL drip 100 ML 10 MCG CONT INF ×2 (07:00→17:14)
[2024-05-21 08:07] LABS: Bedside Glucose 122 mg/dL (74-106)
[2024-05-21] MEDS: Aspirin 81 MG TAB.CHEW PO (08:29)
[2024-05-21] MEDS: Chlorhexidine 15 ML PO ×2 (08:32→21:35)
[2024-05-21] MEDS: Pantoprazole Sodium 40 MG in 0.9% Normal Saline (100mL MB+) 100 ML 330 MG IV ×2 (08:34→20:44)
[2024-05-21] MEDS: Enoxaparin 40 MG/0.4 ML Syringe SC ×2 (08:37→21:32)
[2024-05-21] MEDS: 0.9% Saline Lock 10 ML Syringe IV (08:37)
[2024-05-21] MEDS: Potassium Chloride 20mEq/100mL 20 MEQ/100 ML IV.SOLN. 100 MEQ IV BOLUS ×2 (13:08→14:37)
[2024-05-21] MEDS: Furosemide 500 MG in Empty Viaflex 50 mL 1 EACH CONT INF (13:11)
[2024-05-21 13:46] LABS: Bedside Glucose 134 mg/dL (74-106)
--- NOTE | 2024-05-21 14:37 | PN.CC_ITS ---
Objective Data Objective Data Vital Signs: Vital Signs Last response 3 Temperature 37.1 C 05/21/24 08:00 Temperature Source Axillary 05/21/24 08:00 Pulse Rate 77 05/21/24 13:00 Pulse Strength Normal (2+) 05/21/24 08:55 Respiratory Rate 15 05/21/24 13:00 Respiratory Effort Mechanically Ventilated 05/21/24 12:00 Respiratory Depth Normal 05/21/24 12:00 Respiratory Pattern Normal 05/21/24 12:00 Blood Pressure 110/48 L 05/21/24 13:00 Blood Pressure Mean 68 05/21/24 13:00 Blood Pressure Source Monitor 05/21/24 13:00 Blood Pressure Position Semi-Fowlers 05/21/24 13:00 Blood Pressure Location Left Arm 05/21/24 13:00 Pulse Ox 94 05/21/24 13:00 Oxygen Delivery Method Mechanical Ventilator 05/21/24 13:00 Oxygen Flow Rate (L/min) 4 05/18/24 09:16 Fraction of Inspired Oxygen (FIO2) 40 05/21/24 13:00 I&O: I&O Last 24 Hours 3 05/20/24 05/21/24 05/21/24 23:59 11:59 23:59 Intake Total 2059.15 / 4741.73 1421.90 / 1568.96 147.06 / 1568.96 Output Total 2950 / 5800 3075 / 3625 550 / 3625 Balance -890.85 / -1058.27 -1653.10 / -2056.04 -402.94 / -2056.04 I&O: Total Stay 3 05/17/24 15:40 thru 05/21/24 14:30 Intake Total 69002.78 Output Total 79531 Balance -45690.22 Current Meds Ordered / Administered: Current meds ordered / Administered 3 Generic Name Dose Route Start Last Admin Trade Name Freq PRN Reason Stop Dose Admin Acetaminophen 650 mg 05/17/24 21:25 Acetaminophen 325 Mg Tablet PO Q6H PRN PRN Pain 1-10 Or Fever >100.7 Albuterol Sulfate 2.5 mg 05/17/24 21:25 Albuterol 2.5 Mg/3 Ml Vial.Neb. INHALATION Q2H PRN PRN SOB &/OR WHEEZING Aspirin 81 mg 05/19/24 08:00 05/21/24 08:29 Aspirin 81 Mg Tab.Chew PO 81 mg BREAKFAST YAZMIN Administration Atorvastatin Calcium 80 mg 05/18/24 22:00 05/20/24 21:06 Atorvastatin Calcium 80 Mg Tablet PO 80 mg QHS YAZMIN Administration Chlorhexidine Gluconate 15 ml 05/18/24 22:00 05/21/24 08:32 Chlorhexidine 15 Ml PO 15 ml BID YAZMIN Administration Enoxaparin Sodium 40 mg 05/19/24 22:00 05/21/24 08:37 Enoxaparin 40 Mg/0.4 Ml Syringe SC 40 mg BID YAZMIN Administration Glucagon 1 mg 05/18/24 16:42 Glucagon 1 Mg/Ml Syringe IM X1 PRN Hypoglycemia Protocol Hydralazine HCl 10 mg 05/18/24 16:42 Hydralazine 20 Mg/Ml Vial IV Q4H PRN PRN SBP > 160 Protocol Propofol 1,000 mg in 100 mls @ 10.044 mls/hr 05/18/24 15:45 05/21/24 14:30 Diprivan CONT INF 15 mcg/kg/min .Q9H58M YAZMIN 15.1 mls/hr Titration Protocol 10 MCG/KG/MIN Pantoprazole Sodium 40 mg/ 110 mls @ 330 mls/hr 05/18/24 22:00 05/21/24 10:05 Sodium Chloride IV Infused Q12 YAZMIN Infusion Fentanyl 100 mls @ 5 mls/hr 05/18/24 15:45 05/21/24 14:30 CONT INF 100 mcg/hr UD YAZMIN 10 mls/hr Titration Protocol 50 MCG/HR Dextrose 250 mls @ 0 mls/hr 05/18/24 16:42 Dextrose 10%-Water IV .Q0M PRN HYPOGLYCEMIA Protocol As Directed Furosemide 500 mg/ N/A 50 mls @ 2 mls/hr 05/19/24 06:25 05/21/24 13:11 CONT INF 2 mls/hr .Q25H YAZMIN Administration Piperacillin Sod/Tazobactam 50 mls @ 12.5 mls/hr 05/19/24 14:00 05/21/24 11:25 Sod 3.375 gm/ Sodium Chloride IV Infused Q8 YAZMIN Infusion Enteral Nutritional Formula 1,000 mls @ 75 mls/hr 05/19/24 11:50 05/21/24 05:08 Vital Af 1.2 Raimundo Liquid GT 75 mls/hr .[id number] YAZMIN Administration Insulin Human Lispro 0 unit 05/19/24 12:00 05/21/24 12:59 Insulin Lispro 100 Unit/Ml Insuln.Pen SC Not Given Q6H [facility] Protocol Levothyroxine Sodium 50 mcg 05/18/24 06:00 05/21/24 06:38 Levothyroxine 50 Mcg Tablet PO 50 mcg 0600 YAZMIN Administration Melatonin 3 mg 05/17/24 21:25 Melatonin 3 Mg Tablet PO QHS PRN PRN INSOMNIA Metoprolol Tartrate 12.5 mg 05/18/24 22:00 05/21/24 08:32 Metoprolol Tartrate 25 Mg Tablet PO Not Given BID [facility] Protocol Ondansetron HCl 4 mg 05/17/24 21:25 Ondansetron 4 Mg/2 Ml Vial IV Q8H PRN PRN NAUSEA/VOMITING Senna/Docusate Sodium 2 tablet 05/17/24 21:25 Senna/Docusate Sodium 1 Tablet PO BID PRN PRN Constipation Sodium Chloride 10 - 40 ml 05/17/24 22:01 05/21/24 08:37 0.9% Saline Lock 10 Ml Syringe IV 10 ml UD PRN Administration SALINE FLUSH Sodium Chloride 5 ml 05/18/24 15:41 Sodium Cl For Inhalation 15 Ml Vial.Neb. INHALATION Q5M PRN Suctioning Lab / Micro Data 05/21/24 05:05 05/21/24 05:05 Labs: Laboratory Results - last 24 hr 05/20/24 17:00: Potassium 3.4 L 05/20/24 18:17: POC Glucose 136 H 05/20/24 21:10: Sodium 147 H, Potassium 3.4 L, Chloride 107, Carbon Dioxide 36.0 H, Anion Gap 4 L, BUN 39 H, Creatinine 1.62 H, Estim Creat Clear Calc 77.43, Est GFR (MDRD) Af Amer 55 L, Est GFR (MDRD) Non-Af 46 L, BUN/Creatinine Ratio 24.1 H , Glucose 141 H, Calcium 7.9 L 05/21/24 00:20: Sodium 145, Potassium 3.6, Chloride 106, Carbon Dioxide 37.0 H, Anion Gap 1 L, BUN 38 H, Creatinine 1.62 H, Estim Creat Clear Calc 77.43, Est GFR (MDRD) Af Amer 55 L, Est GFR (MDRD) Non-Af 46 L, BUN/Creatinine Ratio 23.5 H , Glucose 150 H, Calcium 7.8 L 05/21/24 00:25: POC Glucose 142 H 05/21/24 05:05: WBC 3.9 L, RBC 2.56 L, Hgb 7.3 L, Hct 24.5 L, MCV 95.7 H, MCH 28.5, MCHC 29.8 L, RDW Std Deviation 63.5 H, RDW Coeff of Tan 18.7 H, Plt Count 88 L, MPV 10.4, Immature Gran % (Auto) 0.800, Neut % (Auto) 74.1 H, Lymph % (Auto) 11.5 L, [place] % (Auto) 9.2, Eos % (Auto) 4.1, Baso % (Auto) 0.3, Absolute Neuts (auto) 2.9, Absolute Lymphs (auto) 0.45 L, Nucleated RBC % 0, Sodium 146 H , Potassium 3.4 L, Chloride 106, Carbon Dioxide 37.0 H, Anion Gap 3 L, BUN 38 H, Creatinine 1.63 H, Estim Creat Clear Calc 76.98, Est GFR (MDRD) Af Amer 55 L, E st GFR (MDRD) Non-Af 45 L, BUN/Creatinine Ratio 23.3 H, Glucose 140 H, Calcium 8.0 L, Phosphorus 4.2, Magnesium 1.9, Total Bilirubin 1.10 H, AST 14 L, ALT 10 L , Alkaline Phosphatase 67, Total Protein 5.4 L, Albumin 2.2 L, Globulin 3.2, A lbumin/Globulin Ratio 0.7 L 05/21/24 06:41: POC Glucose 122 H 05/21/24 12:58: POC Glucose 134 H Micro: Microbiology 05/19/24 09:10 Sputum, Induced/Lukens Gram Stain - Final 05/19/24 09:10 Sputum, Induced/Lukens Respiratory Culture - Final 05/18/24 17:40 Sputum, Tracheal Aspirate Gram Stain - Final 05/18/24 17:40 Sputum, Tracheal Aspirate Respiratory Culture - Final Rhythm Strip Rhythm Strip: Sinus Rhythm Rate: 90 Ectopy: None Assessment and Plan . Assessment and plan: Assessment and plan: 63 yrs old male with past medical history of GLENN, Hypthyroidism, Anemia, DM, Obesity, foot drop , OA presented to ED for shortness of breath. BIPAP was tried initially with out success and patient got intubated yesterday. ICU is consulted this morning # Acute hypoxic hypercapnic respiratory failure most likely due to Pneumonia vs fluid overload Underlying GLENN vs OHS Continue with vent support- weaning COVID negative- Send for flu/RSV Bronchodilators Empiric antibiotics with Ceftriaxone/Azithromycin On lasix drip 2mg/hour, monitor urine output and renal function daily SAT/SBT but failed SAT today # Pancytopenia Required PRBC transfusion Needs hematology evaluation # Hx of DM ISS Monitor blood sugar # Hypothyroidism Synthroid DVT prophylaxis: On Heparin Critical Care Time: The entirety of this encounter was done via Telemedicine Physical Exam Const General Appearance: uncooperative, combative, intubated and patient mechanically ventilated Nutritional Appearance: obese HEENT normocephalic Head and Scalp: normocephalic Mouth: endotracheal tube in place and OG tube in place Subjective Subjective No major changes overnight, continues on full vent support
[2024-05-21 17:34] LABS: Bedside Glucose 138 mg/dL (74-106)
[2024-05-21] MEDS: Atorvastatin Calcium 80 MG Tablet PO (21:33)
[2024-05-22] VITALS (32 sets, daily range): BP systolic 98–117; BP diastolic 44–53; PULSE 58–80; RESP 13–17; TEMP 35.6–36.1; O2SAT 91–97
[2024-05-22 01:12] LABS: Bedside Glucose 131 mg/dL (74-106)
[2024-05-22] MEDS: fentaNYL drip 100 ML 10 MCG CONT INF ×3 (02:47→23:00)
[2024-05-22] MEDS: Propofol 10MG/Ml 1,000 MG/100 ML Bottle 20.1 MG CONT INF ×3 (04:41→12:49)
[2024-05-22 04:52] LABS: Absolute Lymphocyte Count 0.57 X10^3/uL (0.83-4.51); Absolute Neutrophil Count 3.3 X10^3/uL (2.0-7.7); Basophil# 0.01 X10^3/uL; Basophil% 0.2 % (0-1); Eosinophil# 0.23 X10^3/uL; Hemoglobin 7.5 g/dL (13.0-16.5); Lymphocyte # 0.57 X10^3/ul (0.83-4.51); Lymphocyte % 12.5 % (19-41); Mean Corpuscular Hgb 28.8 pg (27.0-32.0); Mean Corpuscular Volume 96.2 fL (80-94); Mean Platelet Vol. 10.9 fl (6.2-12.0); Monocyte# 0.47 X10^3/uL; Monocyte% 10.3 % (0-10); NRBC Flagged by Analyzer 0 % (0-5); Neutrophil # 3.27 X10^3/uL (2.7-7.7); Neutrophil % 71.6 % (47-70); POSITIVE COUNT YES; POSITIVE DIFFERENTIAL YES; Platelet Count 84 K/mm3 (150-450); RBC Distribution Width CV 18.6 % (11.6-14.6); White Blood Count 4.6 K/mm3 (4.4-11.0)
[2024-05-22 05:10] LABS: ALB/GLOB Ratio 0.6 RATIO (0.9-2.4); AST(SGOT) 31 U/L (15-37); Alanine Aminotransfer ALT/SGPT 11 U/L (16-61); Albumin, Serum 2.2 g/dL (3.2-5.0); Alkaline Phosphatase 73 U/L (45-117); Anion Gap 3 (5-15); BUN 40 mg/dL (7-18); Calcium,Total 8.2 mg/dL (8.5-10.1); Chloride 104 mmol/L (98-107); Creatinine, Serum 1.74 mg/dL (0.70-1.30); EST Glomerular Filtration Rate 42 mL/min (>60); Est Glom Filt Rate - Afr Amer 51 mL/min (>60); Estimated Creatinine Clearance 72.11 ml/min; Globulin 3.4 g/dL (2.2-4.2); Glucose 151 mg/dL (74-106); Magnesium 2.2 mg/dL (1.6-2.6); Phosphorus 4.2 mg/dL (2.5-4.9); Potassium 3.6 mmol/L (3.5-5.1); Protein, Total 5.6 g/dL (6.4-8.2); Sodium Level 145 mmol/L (136-145)
[2024-05-22] MEDS: Piperacil/Tazobactam 3.375 GM in 0.9% Normal Saline (50mL MB+) 50 ML IV ×3 (06:21→21:32)
[2024-05-22] MEDS: Levothyroxine 50 MCG Tablet PO (06:21)
[2024-05-22 06:47] LABS: Bedside Glucose 138 mg/dL (74-106)
--- NOTE | 2024-05-22 06:59 | PN.CARD_ITS ---
Subjective Subjective Patient seen and evaluated. Still intubated. Sedated. Objective Data Vital Signs: Vital Signs Temp Pulse Resp BP Pulse Ox O2 Del Method O2 Flow Rate 96.9 F L 63 16 104/46 L 92 Mechanical Ventilator 4 05/22/24 00:00 05/22/24 06:50 05/22/24 06:50 05/22/24 06:00 05/22/24 06:50 05/22/24 06:00 05/18/24 09:16 FiO2 40 05/22/24 06:50 Oxygen Flow Rate (L/min) 4 Oxygen Delivery Method Mechanical Ventilator Weight: 369 lb 4.388 oz Body Mass Index (BMI) 43.7 Intake & Output: Intake and Output for Last 24 Hours 05/20/24 05/21/24 05/22/24 23:59 23:59 23:59 Intake Total 4570.40 / 4741.73 3382.98 / 3807.80 800.22 / 800.22 Output Total 5300 / 5800 5550 / 5800 1500 / 1500 Balance -729.60 / -1058.27 -2167.02 / -1992.20 -699.78 / -699.78 Lab / Micro Data 05/22/24 04:30 05/22/24 04:30 Labs: Laboratory Results - last 24 hr 05/21/24 06:41: POC Glucose 122 H 05/21/24 12:58: POC Glucose 134 H 05/21/24 17:05: POC Glucose 138 H 05/22/24 00:51: POC Glucose 131 H 05/22/24 04:30: WBC 4.6, RBC 2.60 L, Hgb 7.5 L, Hct 25.0 L, MCV 96.2 H, MCH 28.8, MCHC 30.0 L, RDW Std Deviation 64.0 H, RDW Coeff of Tna 18.6 H, Plt Count 84 L, MPV 10.9, Immature Gran % (Auto) 0.400, Neut % (Auto) 71.6 H, Lymph % (Auto) 12.5 L, [place] % (Auto) 10.3 H, Eos % (Auto) 5.0, Baso % (Auto) 0.2, Absolute Neuts (auto) 3.3, Absolute Lymphs (auto) 0.57 L, Nucleated RBC % 0, Sodium 145, Potassium 3.6, Chloride 104, Carbon Dioxide 38.0 H, Anion Gap 3 L, B UN 40 H, Creatinine 1.74 H, Estim Creat Clear Calc 72.11, Est GFR (MDRD) Af Amer 51 L, Est GFR (MDRD) Non-Af 42 L, BUN/Creatinine Ratio 23.0 H, Glucose 151 H, C alcium 8.2 L, Phosphorus 4.2, Magnesium 2.2, Total Bilirubin 1.00, AST 31, ALT 11 L, Alkaline Phosphatase 73, Total Protein 5.6 L, Albumin 2.2 L, Globulin 3.4, Albumin/Globulin Ratio 0.6 L 05/22/24 06:27: POC Glucose 138 H Micro: Microbiology 05/19/24 09:10 Sputum, Induced/Lukens Gram Stain - Final 05/19/24 09:10 Sputum, Induced/Lukens Respiratory Culture - Final 05/18/24 17:40 Sputum, Tracheal Aspirate Gram Stain - Final 05/18/24 17:40 Sputum, Tracheal Aspirate Respiratory Culture - Final Rhythm Strip Rhythm Strip: Sinus Rhythm Rate: 90 Ectopy: None Cardiology Labs/Tests 05/22/24 04:30: WBC 4.6, RBC 2.60 L, Hgb 7.5 L, Hct 25.0 L, MCV 96.2 H, MCH 28.8, MCHC 30.0 L, Plt Count 84 L, MPV 10.9, Immature Gran % (Auto) 0.400, Neut % (Auto) 71.6 H, Lymph % (Auto) 12.5 L, [place] % (Auto) 10.3 H, Eos % (Auto) 5.0, Baso % (Auto) 0.2, Absolute Neuts (auto) 3.3, Nucleated RBC % 0, Sodium 145, Potassium 3.6, Chloride 104, Carbon Dioxide 38.0 H, Anion Gap 3 L, BUN 40 H, C reatinine 1.74 H, Est GFR (MDRD) Af Amer 51 L, Est GFR (MDRD) Non-Af 42 L, B UN/Creatinine Ratio 23.0 H, Glucose 151 H, Calcium 8.2 L, Phosphorus 4.2, Magnesium 2.2, Total Bilirubin 1.00 Rhythm: EKG: ECHO: Stress Test: Cardiac Cath: PCI: CT Surgery: Holter monitor: EPS: PPM: CXR: Chest CT Scan: Physical Exam Const alert, oriented x3 and no apparent distress General Appearance: cooperative HEENT hearing grossly normal bilaterally Head and Scalp: atraumatic Eyes EOMs intact bilaterally Neck General: normal visual inspection Chest inspection of chest normal and palpation of chest normal Resp normal respiratory effort Auscultation: clear to auscultation bilaterally Cardio regular rate, regular rhythm, S1 normal heart sound and S2 normal heart sound Jugular Venous Distention: JVD GI normal to inspection, nondistended, normoactive bowel sounds Extremity normal capillary refill and no pedal edema Peripheral Pulses: Yes pulses 2+ throughout and femoral pulses present Skin no rashes or lesions noted Neuro oriented x3 and CN's II-XII intact bilaterally Psych Appearance: grossly normal and appropriate Assessment & Plan Assessment/Plan (1) SOB (shortness of breath): PLAN: Patient presented with shortness of breath which was likely multifactorial. Echocardiogram demonstrated preserved left ventricular systolic function and the natruretic peptide level was mildly elevated. Patient is currently being diuresed. I suspect that some of the significant anemia is contributing to his symptomatology. I do not think that this is a primary coronary or cardiac issue. Will continue to follow peripherally. (2) Congestive heart failure: QUALIFIERS: Heart failure type: unspecified Heart failure chronicity: acute Qualified Code(s): I50.9 - Heart failure, unspecified PLAN: Patient did have a mildly elevated cardiac natruretic peptide level but I suspect the above is secondary to multifactorial etiology. Will continue to follow. Will continue low-dose beta-judit and diuretic. Should consider an SGLT2 inhibitor when patient weaned off ventilator.
[2024-05-22] MEDS: Chlorhexidine 15 ML PO ×2 (08:40→21:32)
[2024-05-22] MEDS: Enoxaparin 40 MG/0.4 ML Syringe SC ×2 (08:40→21:32)
[2024-05-22] MEDS: Aspirin 81 MG TAB.CHEW PO (08:44)
[2024-05-22] MEDS: Pantoprazole Sodium 40 MG in 0.9% Normal Saline (100mL MB+) 100 ML 330 MG IV ×2 (10:36→21:31)
--- NOTE | 2024-05-22 10:57 | PCM.PN.INT ---
Assessment & Plan Assessment/Plan (1) Congestive heart failure: QUALIFIERS: Heart failure type: unspecified Heart failure chronicity: acute Qualified Code(s): I50.9 - Heart failure, unspecified PLAN: Plan RECOMMENDATIONS: 1. Continue assist-control mode mechanical ventilation. Wean FiO2 and PEEP to maintain saturations at or above 90%. 2. Discontinue Lasix infusion given rising bicarbonate. 3. Obtain follow-up ABG. 4. Continue empiric antimicrobials. 5. Continue propofol and fentanyl for sedation. Start scheduled Seroquel today. 6. If the patient fails SBT tomorrow, will consider transition from propofol to Precedex. 7. Continue tube feeding as tolerated. 8. Continue appropriate GI and DVT prophylaxis. IMPRESSIONS: 1. Acute hypoxemic and hypercapnic respiratory failure Most likely multifactorial in etiology with underlying decompensated heart failure with preserved ejection fraction and pneumonia likely contributing. I do suspect that the patient has a component of sleep apnea and alveolar hypoventilation secondary to morbid obesity. In the past, the patient was referred to undergo outpatient sleep testing, but failed to follow-up. The patient appears to be improving with invasive mechanical ventilatory support along with antimicrobials and volume optimization with Lasix. He failed his spontaneous awakening trial this morning. Therefore, we will plan to add Seroquel to his regimen. If he continues to fail his spontaneous awakening trial, will consider transitioning from propofol to Precedex to facilitate weaning from invasive mechanical ventilatory support. In the interim, I agree with continuing antimicrobials to complete 7 days of therapy. He has been aggressively diuresed with increasing serum bicarbonate. Therefore, we will obtain follow-up ABG this morning and discontinue his Lasix infusion for now. I do recommend that once the patient is extubated that he be started on BiPAP therapy with naps and nightly. 2. History of chronic pancytopenia/diabetes mellitus/hypothyroidism/morbid obesity Complicates care, management, recovery and prognosis. Continue supportive care as noted above. Continue tube feeding as tolerated. PT/OT to work with the patient. TIME: 34 minutes of critical care time, independent of procedures, was spent addressing the patient's acute hypoxemic and hypercapnic respiratory failure, review of all data and collaboration with the care team. Subjective Subjective The patient was seen and examined at the bedside this morning. Events from the last 24 hours have been reviewed. The patient is currently afebrile and hemodynamically stable. The patient remained stable from a respiratory perspective on assist-control mode of mechanical ventilation with an FiO2 requirement of 40% and PEEP of 5. The patient remains sedated on propofol and fentanyl. He has been tolerant of the continuous Lasix infusion. He continues to tolerate tube feeding as well. According to nursing staff, the patient became agitated with his spontaneous awakening trial this morning. Therefore, spontaneous breathing trial was never completed. The patient is currently documented to be overall net -11 L for the hospitalization. White count is normal this morning with a hemoglobin of 7.5 g/dL. Platelet count is low at 84,000. Serum bicarbonate has risen to 38. Creatinine is elevated at 1.74. Objective Data Objective Data The patient's most recent lab work, culture data and imaging studies have all been personally reviewed. Surface echocardiogram demonstrated mild concentric LVH with an ejection fraction of 70%. Bilateral lower extremity Doppler study was negative for DVT. Infectious workup has been unrevealing to date. Vital Signs: Vital Signs Temp Pulse Resp BP Pulse Ox O2 Del Method O2 Flow Rate 96.1 F L 62 16 99/46 L 92 Mechanical Ventilator 4 05/22/24 08:00 05/22/24 10:00 05/22/24 10:00 05/22/24 10:00 05/22/24 10:00 05/22/24 10:00 05/18/24 09:16 FiO2 40 05/22/24 10:00 Oxygen Flow Rate (L/min) 4 Oxygen Delivery Method Mechanical Ventilator Weight: 369 lb 4.388 oz Body Mass Index (BMI) 43.7 Intake & Output: Intake and Output for Last 24 Hours 05/20/24 05/21/24 05/22/24 23:59 23:59 23:59 Intake Total 4570.40 / 4741.73 3382.98 / 3807.80 1042.62 / 1042.62 Output Total 5300 / 5800 5550 / 5800 1950 / 1950 Balance -729.60 / -1058.27 -2167.02 / -1992.20 -907.38 / -907.38 Lab / Micro Data Attestation: I reviewed the patient's lab results. 05/22/24 04:30 05/22/24 04:30 Labs: Laboratory Results - last 24 hr 05/21/24 12:58: POC Glucose 134 H 05/21/24 17:05: POC Glucose 138 H 05/22/24 00:51: POC Glucose 131 H 05/22/24 04:30: WBC 4.6, RBC 2.60 L, Hgb 7.5 L, Hct 25.0 L, MCV 96.2 H, MCH 28.8, MCHC 30.0 L, RDW Std Deviation 64.0 H, RDW Coeff of Tan 18.6 H, Plt Count 84 L, MPV 10.9, Immature Gran % (Auto) 0.400, Neut % (Auto) 71.6 H, Lymph % (Auto) 12.5 L, [place] % (Auto) 10.3 H, Eos % (Auto) 5.0, Baso % (Auto) 0.2, Absolute Neuts (auto) 3.3, Absolute Lymphs (auto) 0.57 L, Nucleated RBC % 0, Sodium 145, Potassium 3.6, Chloride 104, Carbon Dioxide 38.0 H, Anion Gap 3 L, BUN 40 H, Creatinine 1.74 H, Estim Creat Clear Calc 72.11, Est GFR (MDRD) Af Amer 51 L, Est GFR (MDRD) Non-Af 42 L, BUN/Creatinine Ratio 23.0 H, Glucose 151 H, Calcium 8.2 L, Phosphorus 4.2, Magnesium 2.2, Total Bilirubin 1.00, AST 31, ALT 11 L, Alkaline Phosphatase 73, Total Protein 5.6 L, Albumin 2.2 L, Globulin 3.4, Albumin/Globulin Ratio 0.6 L 05/22/24 06:27: POC Glucose 138 H Micro: Microbiology 05/19/24 09:10 Sputum, Induced/Lukens Gram Stain - Final 05/19/24 09:10 Sputum, Induced/Lukens Respiratory Culture - Final 05/18/24 17:40 Sputum, Tracheal Aspirate Gram Stain - Final 05/18/24 17:40 Sputum, Tracheal Aspirate Respiratory Culture - Final 05/19/24 09:10 Mucosa - Nasopharyngeal Influenza & RSV (PCR) - Final 05/19/24 07:55 Nasal Secretion MRSA (PCR) - Final 05/19/24 07:55 Urine Catheter - Mccarthy Legionella Antigen - Final 05/19/24 07:55 Urine Catheter - Mccarthy Streptococcus pneumoniae Antigen (M - Final 05/17/24 22:30 Mucosa - Nasopharyngeal Respiratory Panel (PCR) - Final 05/17/24 22:49 Nasal Secretion SARS-CoV-2 Antigen (Rapid) - Final Rhythm Strip Rhythm Strip: Sinus Rhythm Rate: 90 Ectopy: None Physical Exam Const Constitutional Narrative: Intubated, sedated and mechanically ventilated. No ventilator dyssynchrony noted. HEENT normocephalic and head/scalp atraumatic Mouth: endotracheal tube in place and OG tube in place Eyes EOMs intact bilaterally and conjunctivae normal Neck supple Neck Narrative: Large neck circumference with redundant soft tissue. General: trachea midline Chest inspection of chest normal Resp Auscultation: diminished lung sounds; Negative for rales, rhonchi or wheezes Cardio regular rate and regular rhythm GI normal to inspection, nondistended, normoactive bowel sounds Extremity General Extremity: edema; Negative for clubbing Skin no rashes or lesions noted Neuro Sensorium / Orientation: sedated on vent Charges/Coding Procedures Hospitalists Procedures: 23200 Critical Care 1st Hr
[2024-05-22 11:34] LABS: Allen Test Positive; Base Excess 17 mmol/L (-2 to +2); Bicarbonate 39.8 mmol/L (22-26); Blood Gas Specimen Type ART; Mode AC; O2 Delivery Device Adult Vent; PEEP 5; PO2 63 mmHG (75-100); RR 16; SITE L Radial; SO2 93 % (95-99); Total Carbon Dioxide 41 mmol/L; pH 7.49 (7.35-7.45)
[2024-05-22] MEDS: Vital AF 1.2 Cal Liquid 1,000 ML 75 ML GT (12:37)
[2024-05-22] MEDS: QUEtiapine 25 MG Tablet PO ×2 (12:37→21:32)
[2024-05-22 13:04] LABS: Bedside Glucose 139 mg/dL (74-106)
[2024-05-22] MEDS: Senna/Docusate Sodium 1 Tablet 2 TABLET PO ×2 (15:48→21:36)
--- NOTE | 2024-05-22 16:12 | PN.HOSP_ITS ---
Reason for Visit Reason for Visit: Diagnoses Other pancytopenia (05/17/24) Obstructive sleep apnea (adult) (pediatric) (05/17/24) Heart failure, unspecified (05/17/24) Shortness of breath (05/17/24) Hypoxemia (05/17/24) Subjective Subjective Patient was seen and examined today, pulmonary medicine stopped his Lasix drip, I talked briefly with cardiology who has signed off the case after today, cardiology states that they do not feel that the patient's respiratory failure was mainly due to congestive heart failure. Patient remains on the ventilator at this time. Objective Data Objective Data Vital Signs: Vital Signs Temp Pulse Resp BP Pulse Ox O2 Del Method O2 Flow Rate 96.5 F L 60 16 101/50 L 93 Mechanical Ventilator 4 05/22/24 12:00 05/22/24 14:12 05/22/24 14:12 05/22/24 13:00 05/22/24 14:12 05/22/24 13:00 05/18/24 09:16 FiO2 40 05/22/24 13:00 Oxygen Flow Rate (L/min) 4 Oxygen Delivery Method Mechanical Ventilator Weight: 167.5 kg Body Mass Index (BMI) 43.7 Intake & Output: Intake and Output for Last 24 Hours 05/20/24 05/21/24 05/22/24 23:59 23:59 23:59 Intake Total 4570.40 / 4741.73 3382.98 / 3807.80 2176.88 / 2176.88 Output Total 5300 / 5800 5550 / 5800 2200 / 2200 Balance -729.60 / -1058.27 -2167.02 / -1992.20 -23.12 / -23.12 Lab / Micro Data 05/22/24 04:30 05/22/24 04:30 Labs: Laboratory Results - last 24 hr 05/21/24 17:05: POC Glucose 138 H 05/22/24 00:51: POC Glucose 131 H 05/22/24 04:30: WBC 4.6, RBC 2.60 L, Hgb 7.5 L, Hct 25.0 L, MCV 96.2 H, MCH 28.8, MCHC 30.0 L, RDW Std Deviation 64.0 H, RDW Coeff of Tan 18.6 H, Plt Count 84 L, MPV 10.9, Immature Gran % (Auto) 0.400, Neut % (Auto) 71.6 H, Lymph % (Auto) 12.5 L, [place] % (Auto) 10.3 H, Eos % (Auto) 5.0, Baso % (Auto) 0.2, Absolute Neuts (auto) 3.3, Absolute Lymphs (auto) 0.57 L, Nucleated RBC % 0, Sodium 145, Potassium 3.6, Chloride 104, Carbon Dioxide 38.0 H, Anion Gap 3 L, B UN 40 H, Creatinine 1.74 H, Estim Creat Clear Calc 72.11, Est GFR (MDRD) Af Amer 51 L, Est GFR (MDRD) Non-Af 42 L, BUN/Creatinine Ratio 23.0 H, Glucose 151 H, C alcium 8.2 L, Phosphorus 4.2, Magnesium 2.2, Total Bilirubin 1.00, AST 31, ALT 11 L, Alkaline Phosphatase 73, Total Protein 5.6 L, Albumin 2.2 L, Globulin 3.4, Albumin/Globulin Ratio 0.6 L 05/22/24 06:27: POC Glucose 138 H 05/22/24 12:36: POC Glucose 139 H Micro: Microbiology 05/19/24 09:10 Sputum, Induced/Lukens Gram Stain - Final 05/19/24 09:10 Sputum, Induced/Lukens Respiratory Culture - Final 05/18/24 17:40 Sputum, Tracheal Aspirate Gram Stain - Final 05/18/24 17:40 Sputum, Tracheal Aspirate Respiratory Culture - Final 05/19/24 09:10 Mucosa - Nasopharyngeal Influenza & RSV (PCR) - Final 05/19/24 07:55 Nasal Secretion MRSA (PCR) - Final 05/19/24 07:55 Urine Catheter - Mccarthy Legionella Antigen - Final 05/19/24 07:55 Urine Catheter - Mccarthy Streptococcus pneumoniae Antigen (M - Final 05/17/24 22:30 Mucosa - Nasopharyngeal Respiratory Panel (PCR) - Final 05/17/24 22:49 Nasal Secretion SARS-CoV-2 Antigen (Rapid) - Final ABG Data ABG results: ABG 05/22/24 11:31 Specimen Type ART Sample Site L Radial pH 7.49 H Bicarbonate Actual 39.8 H Total CO2 41 Base Excess 17 H O2 Saturation 93 L O2 % 40.0 ABG pCO2 52.0 H ABG pO2 63 L Star Test Positive Respiration Rate 16 O2 Delivery Device Adult Vent Vent Mode AC Tidal Volume 450.0 POC PEEP 5 Rhythm Strip Rhythm Strip: Sinus Rhythm Rate: 90 Ectopy: None Physical Exam Const Constitutional Narrative: Patient is morbidly obese, patient is sedated and on the ventilator General Appearance: well kempt and well developed HEENT normocephalic, head/scalp atraumatic and moist oral mucous membranes Eyes conjunctivae normal Neck no JVD and thyroid normal General: trachea midline Resp normal respiratory effort and clear to auscultation bilaterally Auscultation: Negative for rales, rhonchi or wheezes Cardio regular rate, regular rhythm, S1 normal heart sound, S2 normal heart sound, no murmurs, no rub and no gallops GI non-distended GI Narrative: Bowel sounds are present in all 4 quadrants Extremity Extremity Narrative: Generalized lower extremity nonpitting edema is noted Skin no rashes or lesions noted General Skin Exam: no breakdown Neuro Neuro Narrative: Patient is sedated and on the ventilator Psych Psych Narrative: Patient is sedated and on the ventilator Assessment & Plan Assessment/Plan (1) Respiratory failure with hypoxia and hypercapnia: PLAN: Plan 1. Acute combined respiratory failure-etiology unclear at this point-possibly secondary to pneumonia with an overlap of congestive heart failure with normal ejection fraction, diuresis has been stopped on the patient due to elevated bicarbonate level, he remains on the ventilator at this time, pulmonary medicine is participating in his care #2 community-acquired pneumonia-patient will remain on present antibiotics #3 acute congestive heart failure with preserved ejection fraction-again patient's Lasix had to be stopped due to increased bicarbonate #4 type 2 diabetes-patient will remain on sliding scale insulin per fingerstick blood sugars #5 morbid obesity-complicates care, management, recovery, and prognosis #6 hypothyroidism-patient is continuing on Synthroid #7 chronic anemia-requiring blood transfusion-continue to monitor CBC Total clinical time spent by myself addressing the patient's medical issues, reviewing all of his data, and collaborating with patient's care team: 35 minutes Charges/Coding Visit Charges Inpatient E&M: 55504 Subs Hosp L2
[2024-05-22] MEDS: Propofol 10MG/Ml 1,000 MG/100 ML Bottle 15.1 MG CONT INF ×2 (17:17→23:52)
[2024-05-22] MEDS: Insulin Lispro 100 UNIT/ML INSULN.PEN SC (17:20)
[2024-05-22 17:45] LABS: Bedside Glucose 152 mg/dL (74-106)
[2024-05-22] MEDS: Atorvastatin Calcium 80 MG Tablet PO (21:32)
[2024-05-23] VITALS (35 sets, daily range): BP systolic 101–131; BP diastolic 47–55; PULSE 56–81; RESP 12–17; TEMP 36.1–37.4; O2SAT 90–98; BMI 43.1
[2024-05-23 00:27] LABS: Bedside Glucose 136 mg/dL (74-106)
[2024-05-23] MEDS: Vital AF 1.2 Cal Liquid 1,000 ML 75 ML GT ×2 (03:04→16:22)
[2024-05-23 03:25] LABS: Absolute Lymphocyte Count 0.42 X10^3/uL (0.83-4.51); Absolute Neutrophil Count 3.3 X10^3/uL (2.0-7.7); Basophil# 0.01 X10^3/uL; Basophil% 0.2 % (0-1); Eosinophil# 0.25 X10^3/uL; Eosinophils% 5.7 % (0-5); Hematocrit 26.5 % (40-54); Hemoglobin 7.8 g/dL (13.0-16.5); Lymphocyte # 0.42 X10^3/ul (0.83-4.51); Lymphocyte % 9.5 % (19-41); Mean Corp Hgb Conc 29.4 g/dL (32-36); Mean Corpuscular Hgb 28.6 pg (27.0-32.0); Mean Corpuscular Volume 97.1 fL (80-94); Mean Platelet Vol. 11.4 fl (6.2-12.0); Monocyte# 0.44 X10^3/uL; NRBC Flagged by Analyzer 0 % (0-5); Neutrophil # 3.29 X10^3/uL (2.7-7.7); Neutrophil % 74.4 % (47-70); POSITIVE COUNT YES; POSITIVE DIFFERENTIAL YES; Platelet Count 90 K/mm3 (150-450); RBC Distribution Width CV 19.2 % (11.6-14.6); RBC Distribution Width SD 63.7 fl (35.1-43.9); Red Blood Count 2.73 M/mm3 (4.6-6.2); White Blood Count 4.4 K/mm3 (4.4-11.0)
[2024-05-23 03:42] LABS: ALB/GLOB Ratio 0.6 RATIO (0.9-2.4); AST(SGOT) 90 U/L (15-37); Alanine Aminotransfer ALT/SGPT 21 U/L (16-61); Albumin, Serum 2.1 g/dL (3.2-5.0); Alkaline Phosphatase 86 U/L (45-117); Anion Gap 5 (5-15); BUN 44 mg/dL (7-18); BUN/Creat Ratio 24.4 RATIO (10-20); Calcium,Total 7.8 mg/dL (8.5-10.1); Chloride 104 mmol/L (98-107); EST Glomerular Filtration Rate 40 mL/min (>60); Est Glom Filt Rate - Afr Amer 49 mL/min (>60); Estimated Creatinine Clearance 69.71 ml/min; Globulin 3.7 g/dL (2.2-4.2); Glucose 152 mg/dL (74-106); Magnesium 2.1 mg/dL (1.6-2.6); Potassium 3.7 mmol/L (3.5-5.1); Protein, Total 5.8 g/dL (6.4-8.2); Sodium Level 144 mmol/L (136-145)
[2024-05-23 03:44] LABS: Phosphorus 4.3 mg/dL (2.5-4.9)
[2024-05-23] MEDS: 0.9% Saline Lock 10 ML Syringe IV ×2 (05:20→21:49)
[2024-05-23] MEDS: Piperacil/Tazobactam 3.375 GM in 0.9% Normal Saline (50mL MB+) 50 ML IV ×3 (05:20→21:54)
[2024-05-23] MEDS: Levothyroxine 50 MCG Tablet PO (05:20)
[2024-05-23 05:42] LABS: Bedside Glucose 137 mg/dL (74-106)
[2024-05-23] MEDS: TITRATION PARAMETER CHANGE 1 EACH IV (06:03)
[2024-05-23] MEDS: Propofol 10MG/Ml 1,000 MG/100 ML Bottle 9.9 MG CONT INF (06:03)
[2024-05-23] MEDS: CHLORHEXIDINE GLUC 2% CLOTH 1 EACH TOWELETTE TOPICAL (06:03)
--- NOTE | 2024-05-23 07:35 | RAD_ITS ---
INDICATION: hypoxia, respiratory failure EXAMINATION/TECHNIQUE: X-RAY - XR Chest 1 View COMPARISON: May 19, 2024 FINDINGS: LINES/DEVICES: Stable endotracheal and nasogastric tubes. Stable right venous line. LUNGS: Mild bilateral pleural effusions. Possible left basilar consolidation. No pneumothorax. MEDIASTINUM AND CARDIOVASCULAR STRUCTURES: Cardiac silhouette is enlarged with central pulmonary vascular prominence. Central airways and mediastinal contour are unremarkable. BONES AND SOFT TISSUES: Degenerative vertebral changes. RAD/Chest 1 View (Portable) IMPRESSION: Mild bilateral pleural effusions. Possible left basilar consolidation. No significant interval changes. Cardiac silhouette is enlarged with central pulmonary vascular prominence. Electronically Signed: Julian Carlos DO at 8:11 EST Reading Location ID and State: [facility] / [place] Tel [phone], Service support ,
[2024-05-23] MEDS: Enoxaparin 40 MG/0.4 ML Syringe SC ×2 (08:03→21:50)
[2024-05-23] MEDS: QUEtiapine 25 MG Tablet PO (08:03)
[2024-05-23] MEDS: Aspirin 81 MG TAB.CHEW PO (08:03)
[2024-05-23] MEDS: Senna/Docusate Sodium 1 Tablet 2 TABLET PO (08:04)
[2024-05-23] MEDS: Chlorhexidine 15 ML PO ×2 (08:04→21:49)
--- NOTE | 2024-05-23 08:10 | PCM.PN.INT ---
Assessment & Plan Assessment/Plan (1) Congestive heart failure: QUALIFIERS: Heart failure type: unspecified Heart failure chronicity: acute Qualified Code(s): I50.9 - Heart failure, unspecified PLAN: Plan RECOMMENDATIONS: 1. Continue assist-control mode mechanical ventilation. Wean FiO2 and PEEP to maintain saturations at or above 90%. 2. Administer bolus diuretics as ordered today. 3. Continue daily awakening and breathing trials. 4. Continue empiric antimicrobials to complete 7 days of therapy. 5. Minimize sedation as tolerated. Transition from propofol to Precedex. 6. Continue tube feeding as tolerated. 7. Continue appropriate GI and DVT prophylaxis. IMPRESSIONS: 1. Acute hypoxemic and hypercapnic respiratory failure Most likely multifactorial in etiology with underlying decompensated heart failure with preserved ejection fraction and pneumonia likely contributing. I do suspect that the patient has a component of sleep apnea and alveolar hypoventilation secondary to morbid obesity. In the past, the patient was referred to undergo outpatient sleep testing, but failed to follow-up. The patient appears to be improving with invasive mechanical ventilatory support along with antimicrobials and volume optimization with diuretics. Plan to continue antimicrobials to complete 7 days of therapy. The patient had a marginal breathing trial this morning. Therefore, we will plan to continue assist-control for the next 24 hours and repeat his breathing trial tomorrow morning. I do recommend that once the patient is extubated that he be started on BiPAP therapy with naps and nightly. 2. History of chronic pancytopenia/diabetes mellitus/hypothyroidism/morbid obesity Complicates care, management, recovery and prognosis. Continue supportive care as noted above. Continue tube feeding as tolerated. PT/OT to work with the patient. TIME: 33 minutes of critical care time, independent of procedures, was spent addressing the patient's acute hypoxemic and hypercapnic respiratory failure, review of all data and collaboration with the care team. Subjective Subjective The patient was seen and examined at the bedside this morning. Events from the last 24 hours have been reviewed. The patient is currently afebrile, hemodynamically stable and maintaining appropriate oxygen saturations on assist-control mode mechanical ventilation with an FiO2 requirement of 40% and PEEP of 5. The patient continues to tolerate tube feeding. He remains sedated on propofol and fentanyl. No overnight issues were identified by the nursing staff. The patient had a marginal spontaneous breathing trial this morning. Therefore, the decision was made to hold off on extubation. Hemoglobin is stable at 7.8 g/dL. Platelet count is low at 90,000. Bicarbonate is elevated at 36 with a creatinine of 1.8. Objective Data Objective Data The patient's most recent lab work, culture data and imaging studies have all been personally reviewed. Surface echocardiogram demonstrated mild concentric LVH with an ejection fraction of 70%. Bilateral lower extremity Doppler study was negative for DVT. Infectious workup has been unrevealing to date. Vital Signs: Vital Signs Temp Pulse Resp BP Pulse Ox O2 Del Method O2 Flow Rate 97.1 F L 75 16 110/51 L 94 Mechanical Ventilator 40 05/23/24 08:00 05/23/24 08:00 05/23/24 08:00 05/23/24 08:00 05/23/24 08:00 05/23/24 08:00 05/22/24 16:00 FiO2 40 05/23/24 08:00 Oxygen Flow Rate (L/min) 40 Oxygen Delivery Method Mechanical Ventilator Weight: 363 lb 12.203 oz Body Mass Index (BMI) 43.1 Intake & Output: Intake and Output for Last 24 Hours 05/21/24 05/22/24 05/23/24 23:59 23:59 23:59 Intake Total 3382.98 / 3807.80 2777.64 / 3718.40 1401.14 / 1401.14 Output Total 5550 / 5800 3175 / 3175 450 / 450 Balance -2167.02 / -1991.20 -397.36 / 543.40 951.14 / 951.14 Lab / Micro Data Attestation: I reviewed the patient's lab results. 05/23/24 03:11 05/23/24 03:11 Labs: Laboratory Results - last 24 hr 05/22/24 12:36: POC Glucose 139 H 05/22/24 17:18: POC Glucose 152 H 05/22/24 23:59: POC Glucose 136 H 05/23/24 03:11: WBC 4.4, RBC 2.73 L, Hgb 7.8 L, Hct 26.5 L, MCV 97.1 H, MCH 28.6, MCHC 29.4 L, RDW Std Deviation 63.7 H, RDW Coeff of Tan 19.2 H, Plt Count 90 L, MPV 11.4, Immature Gran % (Auto) 0.200, Neut % (Auto) 74.4 H, Lymph % (Auto) 9.5 L, [place] % (Auto) 10.0, Eos % (Auto) 5.7 H, Baso % (Auto) 0.2, Absolute Neuts (auto) 3.3, Absolute Lymphs (auto) 0.42 L, Nucleated RBC % 0, Sodium 144, Potassium 3.7, Chloride 104, Carbon Dioxide 36.0 H, Anion Gap 5, BUN 44 H, Creatinine 1.80 H, Estim Creat Clear Calc 69.71, Est GFR (MDRD) Af Amer 49 L, Est GFR (MDRD) Non-Af 40 L, BUN/Creatinine Ratio 24.4 H, Glucose 152 H, Calcium 7.8 L, Phosphorus 4.3, Magnesium 2.1, Total Bilirubin 0.90, AST 90 H, ALT 21, Alkaline Phosphatase 86, Total Protein 5.8 L, Albumin 2.1 L, Globulin 3.7, Albumin/Globulin Ratio 0.6 L 05/23/24 05:19: POC Glucose 137 H Micro: Microbiology 05/19/24 09:10 Sputum, Induced/Lukens Gram Stain - Final 05/19/24 09:10 Sputum, Induced/Lukens Respiratory Culture - Final 05/18/24 17:40 Sputum, Tracheal Aspirate Gram Stain - Final 05/18/24 17:40 Sputum, Tracheal Aspirate Respiratory Culture - Final 05/19/24 09:10 Mucosa - Nasopharyngeal Influenza & RSV (PCR) - Final 05/19/24 07:55 Nasal Secretion MRSA (PCR) - Final 05/19/24 07:55 Urine Catheter - Mccarthy Legionella Antigen - Final 05/19/24 07:55 Urine Catheter - Mccarthy Streptococcus pneumoniae Antigen (M - Final 05/17/24 22:30 Mucosa - Nasopharyngeal Respiratory Panel (PCR) - Final 05/17/24 22:49 Nasal Secretion SARS-CoV-2 Antigen (Rapid) - Final ABG Data ABG results: ABG 05/22/24 11:31 Specimen Type ART Sample Site L Radial pH 7.49 H Bicarbonate Actual 39.8 H Total CO2 41 Base Excess 17 H O2 Saturation 93 L O2 % 40.0 ABG pCO2 52.0 H ABG pO2 63 L Star Test Positive Respiration Rate 16 O2 Delivery Device Adult Vent Vent Mode AC Tidal Volume 450.0 POC PEEP 5 Rhythm Strip Rhythm Strip: Sinus Rhythm Rate: 90 Ectopy: None Physical Exam Const Constitutional Narrative: Intubated, sedated and mechanically ventilated. No ventilator dyssynchrony noted. HEENT normocephalic and head/scalp atraumatic Mouth: endotracheal tube in place and OG tube in place Eyes EOMs intact bilaterally and conjunctivae normal Neck supple Neck Narrative: Large neck circumference with redundant soft tissue. General: trachea midline Chest inspection of chest normal Resp Auscultation: diminished lung sounds; Negative for rales, rhonchi or wheezes Cardio regular rate and regular rhythm GI normal to inspection, nondistended, normoactive bowel sounds Extremity General Extremity: edema; Negative for clubbing Skin no rashes or lesions noted Neuro Sensorium / Orientation: sedated on vent Charges/Coding Procedures Hospitalists Procedures: [id number] Critical Care 1st Hr
[2024-05-23] MEDS: Pantoprazole Sodium 40 MG in 0.9% Normal Saline (100mL MB+) 100 ML 330 MG IV ×2 (09:33→21:49)
--- NOTE | 2024-05-23 09:40 | PCM.PN.HOSP ---
Reason for Visit Reason for Visit: Diagnoses Other pancytopenia (05/17/24) Obstructive sleep apnea (adult) (pediatric) (05/17/24) Heart failure, unspecified (05/17/24) Respiratory failure, unspecified with hypoxia (05/17/24) Respiratory failure, unspecified with hypercapnia (05/17/24) Shortness of breath (05/17/24) Hypoxemia (05/17/24) Subjective Subjective Patient was seen and examined today, he remains sedated on the ventilator. Patient is currently on an FiO2 of 0.4. I talked briefly with critical care, they stated that they may try a weaning trial on the patient today. Patient's creatinine appears to be stable at 1.8 today, hemoglobin is stable at 7.8. I reviewed the patient's iron studies that were recently done in April of this year, his ferritin was low and his iron level was low. I am going to administer Venofer. Objective Data Objective Data Vital Signs: Vital Signs Temp Pulse Resp BP Pulse Ox O2 Del Method O2 Flow Rate 97.1 F L 81 16 131/55 H 94 Mechanical Ventilator 40 05/23/24 08:00 05/23/24 09:00 05/23/24 09:00 05/23/24 09:00 05/23/24 09:00 05/23/24 09:00 05/22/24 16:00 FiO2 40 05/23/24 09:00 Oxygen Flow Rate (L/min) 40 Oxygen Delivery Method Mechanical Ventilator Weight: 165 kg Body Mass Index (BMI) 43.1 Intake & Output: Intake and Output for Last 24 Hours 05/21/24 05/22/24 05/23/24 23:59 23:59 23:59 Intake Total 3382.98 / 3807.80 2777.64 / 3718.40 1929.36 / 1929.36 Output Total 5550 / 5800 3175 / 3175 450 / 450 Balance -2167. / -20 -397.36 / 543.40 1479.36 / 1479.36 Lab / Micro Data 05/23/24 03:11 05/23/24 03:11 Labs: Laboratory Results - last 24 hr 05/22/24 12:36: POC Glucose 139 H 05/22/24 17:18: POC Glucose 152 H 05/22/24 23:59: POC Glucose 136 H 05/23/24 03:11: WBC 4.4, RBC 2.73 L, Hgb 7.8 L, Hct 26.5 L, MCV 97.1 H, MCH 28.6, MCHC 29.4 L, RDW Std Deviation 63.7 H, RDW Coeff of Tan 19.2 H, Plt Count 90 L, MPV 11.4, Immature Gran % (Auto) 0.200, Neut % (Auto) 74.4 H, Lymph % (Auto) 9.5 L, [place] % (Auto) 10.0, Eos % (Auto) 5.7 H, Baso % (Auto) 0.2, Absolute Neuts (auto) 3.3, Absolute Lymphs (auto) 0.42 L, Nucleated RBC % 0, Sodium 144, Potassium 3.7, Chloride 104, Carbon Dioxide 36.0 H, Anion Gap 5, BUN 44 H, Creatinine 1.80 H, Estim Creat Clear Calc 69.71, Est GFR (MDRD) Af Amer 49 L, Est GFR (MDRD) Non-Af 40 L, BUN/Creatinine Ratio 24.4 H, Glucose 152 H, Calcium 7.8 L, Phosphorus 4.3, Magnesium 2.1, Total Bilirubin 0.90, AST 90 H, ALT 21, Alkaline Phosphatase 86, Total Protein 5.8 L, Albumin 2.1 L, Globulin 3.7, Albumin/Globulin Ratio 0.6 L 05/23/24 05:19: POC Glucose 137 H Micro: Microbiology 05/19/24 09:10 Sputum, Induced/Lukens Gram Stain - Final 05/19/24 09:10 Sputum, Induced/Lukens Respiratory Culture - Final 05/18/24 17:40 Sputum, Tracheal Aspirate Gram Stain - Final 05/18/24 17:40 Sputum, Tracheal Aspirate Respiratory Culture - Final 05/19/24 09:10 Mucosa - Nasopharyngeal Influenza & RSV (PCR) - Final 05/19/24 07:55 Nasal Secretion MRSA (PCR) - Final 05/19/24 07:55 Urine Catheter - Mccarthy Legionella Antigen - Final 05/19/24 07:55 Urine Catheter - Mccarthy Streptococcus pneumoniae Antigen (M - Final 05/17/24 22:30 Mucosa - Nasopharyngeal Respiratory Panel (PCR) - Final 05/17/24 22:49 Nasal Secretion SARS-CoV-2 Antigen (Rapid) - Final ABG Data ABG results: ABG 05/22/24 11:31 Specimen Type ART Sample Site L Radial pH 7.49 H Bicarbonate Actual 39.8 H Total CO2 41 Base Excess 17 H O2 Saturation 93 L O2 % 40.0 ABG pCO2 52.0 H ABG pO2 63 L Star Test Positive Respiration Rate 16 O2 Delivery Device Adult Vent Vent Mode AC Tidal Volume 450.0 POC PEEP 5 Rhythm Strip Rhythm Strip: Sinus Rhythm Rate: 90 Ectopy: None Physical Exam Narrative Constitutional Narrative: Patient is morbidly obese, patient is sedated and on the ventilator General Appearance: well kempt and well developed HEENT normocephalic, head/scalp atraumatic and moist oral mucous membranes Eyes conjunctivae normal Neck no JVD and thyroid normal General: trachea midline Resp normal respiratory effort and clear to auscultation bilaterally Auscultation: Negative for rales, rhonchi or wheezes Cardio regular rate, regular rhythm, S1 normal heart sound, S2 normal heart sound, no murmurs, no rub and no gallops GI non-distended GI Narrative: Bowel sounds are present in all 4 quadrants Extremity Extremity Narrative: Generalized lower extremity nonpitting edema is noted Skin no rashes or lesions noted General Skin Exam: no breakdown Neuro Neuro Narrative: Patient is sedated and on the ventilator Psych Psych Narrative: Patient is sedated and on the ventilator Assessment & Plan Assessment/Plan (1) Respiratory failure with hypoxia and hypercapnia: PLAN: Plan 1. Acute combined respiratory failure-etiology unclear at this point- secondary to pneumonia with an overlap of congestive heart failure with normal ejection fraction-patient is not currently on any diuresis, antibiotics will continue #2 community-acquired pneumonia-patient will remain on present antibiotics #3 acute congestive heart failure with preserved ejection fraction-again patient's Lasix had to be stopped due to increased bicarbonate #4 type 2 diabetes-patient will remain on sliding scale insulin per fingerstick blood sugars #5 morbid obesity-complicates care, management, recovery, and prognosis #6 hypothyroidism-patient is continuing on Synthroid #7 chronic iron deficiency anemia-requiring blood transfusion-continue to monitor CBC, patient will receive Venofer today Total clinical time spent by myself addressing the patient's medical issues, reviewing all of his data, and collaborating with patient's care team: 35 minutes Charges/Coding Visit Charges Inpatient E&M: 63978 Subs Hosp L2
[2024-05-23 10:33] LABS: Allen Test Positive; Base Excess 15 mmol/L (-2 to +2); Bicarbonate 38.3 mmol/L (22-26); Blood Gas Specimen Type ART; Mode CPAP/PS; O2 Delivery Device Adult Vent; PEEP 5; PO2 68 mmHG (75-100); SITE L Radial; SO2 94 % (95-99); Total Carbon Dioxide 40 mmol/L; pCO2 51.6 mmHg (35-45); pH 7.48 (7.35-7.45)
[2024-05-23] MEDS: Sodium Ferric Gluconat/Sucrose 250 MG in 0.9% Normal Saline (250mL Bag) 250 ML 135 MG IV (10:33)
[2024-05-23] MEDS: AcetaZOLAMIDE 500 MG/10 ML Vial 250 MG IV (11:12)
[2024-05-23] MEDS: Furosemide 40 MG/4 ML Vial IV (11:12)
[2024-05-23] MEDS: Polyethylene Glycol 3350 17 GM PACKET GT (11:12)
[2024-05-23] MEDS: dexMEDEtomidine 400 MCG in 0.9% Normal Saline (100mL Bag) 96 ML 20.6 MCG CONT INF (11:12)
[2024-05-23 11:50] LABS: Bedside Glucose 140 mg/dL (74-106)
[2024-05-23] MEDS: fentaNYL drip 100 ML 5 MCG CONT INF (13:16)
[2024-05-23] MEDS: dexMEDEtomidine 400 MCG in 0.9% Normal Saline (100mL Bag) 96 ML 12.4 MCG CONT INF (16:22)
[2024-05-23 17:48] LABS: Bedside Glucose 134 mg/dL (74-106)
[2024-05-23] MEDS: Atorvastatin Calcium 80 MG Tablet GT (22:23)
[2024-05-23] MEDS: Senna/Docusate Sodium 1 Tablet 2 TABLET GT (22:23)
[2024-05-23] MEDS: Insulin Lispro 100 UNIT/ML INSULN.PEN SC (23:11)
[2024-05-23 23:29] LABS: Bedside Glucose 150 mg/dL (74-106)
[2024-05-24] VITALS (39 sets, daily range): BP systolic 100–137; BP diastolic 43–58; PULSE 58–82; RESP 12–26; TEMP 36.1–36.9; O2SAT 91–99
[2024-05-24] MEDS: dexMEDEtomidine 400 MCG in 0.9% Normal Saline (100mL Bag) 96 ML 8.3 MCG CONT INF (03:38)
[2024-05-24] MEDS: Insulin Lispro 100 UNIT/ML INSULN.PEN SC (05:20)
[2024-05-24] MEDS: 0.9% Saline Lock 10 ML Syringe IV ×2 (05:20→21:46)
[2024-05-24] MEDS: Levothyroxine 50 MCG Tablet GT (05:21)
[2024-05-24] MEDS: Vital AF 1.2 Cal Liquid 1,000 ML 75 ML GT (05:23)
[2024-05-24] MEDS: Piperacil/Tazobactam 3.375 GM in 0.9% Normal Saline (50mL MB+) 50 ML IV ×3 (05:26→21:45)
[2024-05-24 05:33] LABS: Absolute Lymphocyte Count 0.46 X10^3/uL (0.83-4.51); Absolute Neutrophil Count 3.2 X10^3/uL (2.0-7.7); Basophil# 0.01 X10^3/uL; Basophil% 0.2 % (0-1); Eosinophil# 0.18 X10^3/uL; Eosinophils% 4.1 % (0-5); Hematocrit 26.7 % (40-54); Hemoglobin 7.8 g/dL (13.0-16.5); Lymphocyte # 0.46 X10^3/ul (0.83-4.51); Lymphocyte % 10.4 % (19-41); Mean Corp Hgb Conc 29.2 g/dL (32-36); Mean Corpuscular Hgb 28.7 pg (27.0-32.0); Mean Corpuscular Volume 98.2 fL (80-94); Mean Platelet Vol. 12.6 fl (6.2-12.0); Monocyte# 0.53 X10^3/uL; NRBC Flagged by Analyzer 0 % (0-5); Neutrophil # 3.22 X10^3/uL (2.7-7.7); Neutrophil % 72.6 % (47-70); POSITIVE DIFFERENTIAL YES; POSITIVE MORPHOLOGY YES; Platelet Count 120 K/mm3 (150-450); RBC Distribution Width CV 19.5 % (11.6-14.6); RBC Distribution Width SD 67.4 fl (35.1-43.9); Red Blood Count 2.72 M/mm3 (4.6-6.2); White Blood Count 4.4 K/mm3 (4.4-11.0)
[2024-05-24 05:42] LABS: Bedside Glucose 163 mg/dL (74-106); Differential Indicated SCAN CRITERIA MET
[2024-05-24 05:49] LABS: Anion Gap 5 (5-15); BUN 48 mg/dL (7-18); Calcium,Total 7.8 mg/dL (8.5-10.1); Chloride 106 mmol/L (98-107); Creatinine, Serum 1.78 mg/dL (0.70-1.30); EST Glomerular Filtration Rate 41 mL/min (>60); Est Glom Filt Rate - Afr Amer 50 mL/min (>60); Estimated Creatinine Clearance 69.91 ml/min; Glucose 176 mg/dL (74-106); Potassium 3.6 mmol/L (3.5-5.1); Sodium Level 144 mmol/L (136-145)
[2024-05-24] MEDS: CHLORHEXIDINE GLUC 2% CLOTH 1 EACH TOWELETTE TOPICAL (07:50)
[2024-05-24] MEDS: Polyethylene Glycol 3350 17 GM PACKET GT (07:51)
[2024-05-24] MEDS: Aspirin 81 MG TAB.CHEW GT (07:51)
[2024-05-24] MEDS: Senna/Docusate Sodium 1 Tablet 2 TABLET GT (07:52)
[2024-05-24] MEDS: Enoxaparin 40 MG/0.4 ML Syringe SC ×2 (07:52→21:47)
[2024-05-24] MEDS: Chlorhexidine 15 ML PO (07:53)
[2024-05-24 08:09] LABS: Anisocytosis 2+
--- NOTE | 2024-05-24 08:55 | PN.CC_ITS ---
Assessment & Plan Assessment/Plan (1) Congestive heart failure: QUALIFIERS: Heart failure type: unspecified Heart failure chronicity: acute Qualified Code(s): I50.9 - Heart failure, unspecified PLAN: Plan RECOMMENDATIONS: 1. Proceed with a trial of extubation, directly to AVAPS therapy. 2. Continue PAP therapy with naps and nightly. 3. Perform bedside swallow evaluation with dietary advancement as tolerated. 4. Continue empiric antibiotics to complete 7 days of therapy. 5. Continue appropriate ICU prophylaxis. IMPRESSIONS: 1. Acute hypoxemic and hypercapnic respiratory failure Most likely multifactorial in etiology with underlying decompensated heart failure with preserved ejection fraction and pneumonia likely contributing. I do suspect that the patient has a component of sleep apnea and alveolar hypoventilation secondary to morbid obesity. In the past, the patient was referred to undergo outpatient sleep testing, but failed to follow-up. The patient appears to be improving with invasive mechanical ventilatory support along with antimicrobials and volume optimization with diuretics. Plan to continue antimicrobials to complete 7 days of therapy. The patient had a marginal breathing trial this morning. Therefore, we will plan to continue assist-control for the next 24 hours and repeat his breathing trial tomorrow morning. I do recommend that once the patient is extubated that he be started on BiPAP therapy with naps and nightly. 2. History of chronic pancytopenia/diabetes mellitus/hypothyroidism/morbid obesity Complicates care, management, recovery and prognosis. Continue supportive care as noted above. Continue tube feeding as tolerated. PT/OT to work with the patient. TIME: 34 minutes of critical care time, independent of procedures, was spent addressing the patient's acute hypoxemic and hypercapnic respiratory failure, review of all data and collaboration with the care team. Subjective Subjective The patient was seen and examined at the bedside this morning. Events from the last 24 hours have been reviewed. The patient is currently afebrile and hemodynamically stable. The patient passed his spontaneous breathing trial this morning. He is currently alert and able to follow commands. The patient is currently documented to be overall net -9 L for the hospitalization. Hemoglobin is stable at 7.8 g/dL with a platelet count of 120,000. Creatinine is stable at 1.78 with a bicarbonate of 34. Objective Data Objective Data The patient's most recent lab work, culture data and imaging studies have all been personally reviewed. Surface echocardiogram demonstrated mild concentric LVH with an ejection fraction of 70%. Bilateral lower extremity Doppler study was negative for DVT. Infectious workup has been unrevealing to date. Vital Signs: Vital Signs Temp Pulse Resp BP Pulse Ox O2 Del Method O2 Flow Rate 97 F L 66 17 109/54 L 99 Mechanical Ventilator 40 05/24/24 08:00 05/24/24 08:49 05/24/24 08:53 05/24/24 08:00 05/24/24 08:49 05/24/24 08:00 05/22/24 16:00 FiO2 40 05/24/24 08:00 Oxygen Flow Rate (L/min) 40 Oxygen Delivery Method Mechanical Ventilator Weight: 363 lb 12.203 oz Body Mass Index (BMI) 43.1 Intake & Output: Intake and Output for Last 24 Hours 05/22/24 05/23/24 05/24/24 23:59 23:59 23:59 Intake Total 2777.64 / 3718.40 3391.85 / 3405.15 1502.30 / 1502.30 Output Total 3175 / 3175 2250 / 2250 450 / 450 Balance -397.36 / 543.40 1141.85 / 1155.15 1052.30 / 1052.30 Lab / Micro Data Attestation: I reviewed the patient's lab results. 05/24/24 05:20 05/24/24 05:20 Labs: Laboratory Results - last 24 hr 05/23/24 11:09: POC Glucose 140 H 05/23/24 17:25: POC Glucose 134 H 05/23/24 23:10: POC Glucose 150 H 05/24/24 05:20: WBC 4.4, RBC 2.72 L, Hgb 7.8 L, Hct 26.7 L, MCV 98.2 H, MCH 28.7, MCHC 29.2 L, RDW Std Deviation 67.4 H, RDW Coeff of Tan 19.5 H, Plt Count 120 L, MPV 12.6 H, Immature Gran % (Auto) 0.700, Neut % (Auto) 72.6 H, Lymph % (Auto) 10.4 L, [place] % (Auto) 12.0 H, Eos % (Auto) 4.1, Baso % (Auto) 0.2, Absolute Neuts (auto) 3.2, Absolute Lymphs (auto) 0.46 L, Nucleated RBC % 0, Anisocytosis 2+, Sodium 144, Potassium 3.6, Chloride 106, Carbon Dioxide 34.0 H, Anion Gap 5, BUN 48 H, Creatinine 1.78 H, Estim Creat Clear Calc 69.91, Est GFR (MDRD) Af Amer 50 L, Est GFR (MDRD) Non-Af 41 L, BUN/Creatinine Ratio 27.0 H, G lucose 176 H, Calcium 7.8 L, POC Glucose 163 H Micro: Microbiology 05/19/24 09:10 Sputum, Induced/Lukens Gram Stain - Final 05/19/24 09:10 Sputum, Induced/Lukens Respiratory Culture - Final 05/18/24 17:40 Sputum, Tracheal Aspirate Gram Stain - Final 05/18/24 17:40 Sputum, Tracheal Aspirate Respiratory Culture - Final 05/19/24 09:10 Mucosa - Nasopharyngeal Influenza & RSV (PCR) - Final 05/19/24 07:55 Nasal Secretion MRSA (PCR) - Final 05/19/24 07:55 Urine Catheter - Mccarthy Legionella Antigen - Final 05/19/24 07:55 Urine Catheter - Mccarthy Streptococcus pneumoniae Antigen (M - Final 05/17/24 22:30 Mucosa - Nasopharyngeal Respiratory Panel (PCR) - Final 05/17/24 22:49 Nasal Secretion SARS-CoV-2 Antigen (Rapid) - Final ABG Data ABG results: ABG 05/23/24 10:31 Specimen Type ART Sample Site L Radial pH 7.48 H Bicarbonate Actual 38.3 H Total CO2 40 Base Excess 15 H O2 Saturation 94 L O2 % 40.0 ABG pCO2 51.6 H ABG pO2 68 L Star Test Positive O2 Delivery Device Adult Vent Vent Mode CPAP/PS POC PEEP 5 Radiography Diagnostic Testing: Radiology Impression Chest X-Ray 05/23/24 07:35 IMPRESSION: Mild bilateral pleural effusions. Possible left basilar consolidation. No significant interval changes. Cardiac silhouette is enlarged with central pulmonary vascular prominence. Electronically Signed: Julian Carlos DO at 8:11 EST , Rhythm Strip Rhythm Strip: Sinus Rhythm Rate: 90 Ectopy: None Physical Exam Const Constitutional Narrative: Remains intubated and mechanically ventilated. Currently tolerating spontaneous mode of mechanical ventilation. is present at the bedside. HEENT normocephalic and head/scalp atraumatic Mouth: endotracheal tube in place and OG tube in place Eyes EOMs intact bilaterally and conjunctivae normal Neck supple Neck Narrative: Large neck circumference with redundant soft tissue. General: trachea midline Chest inspection of chest normal Resp Auscultation: diminished lung sounds; Negative for rales, rhonchi or wheezes Cardio regular rate and regular rhythm GI normal to inspection, nondistended, normoactive bowel sounds Extremity General Extremity: edema; Negative for clubbing Skin no rashes or lesions noted Neuro Neuro Narrative: Alert and able to follow simple commands. Charges/Coding Procedures Hospitalists Procedures: 24882 Critical Care 1st Hr
[2024-05-24 09:39] LABS: Allen Test Positive; Base Excess 11 mmol/L (-2 to +2); Bicarbonate 34.6 mmol/L (22-26); Blood Gas Specimen Type ART; Mode AC; O2 Delivery Device Adult Vent; PEEP 5; PO2 68 mmHG (75-100); RR 16; SITE L Radial; SO2 94 % (95-99); Total Carbon Dioxide 36 mmol/L; pCO2 50.3 mmHg (35-45); pH 7.45 (7.35-7.45)
[2024-05-24] MEDS: Pantoprazole Sodium 40 MG in 0.9% Normal Saline (100mL MB+) 100 ML 330 MG IV ×2 (09:51→21:45)
[2024-05-24 11:33] LABS: Allen Test Positive; Base Excess 10 mmol/L (-2 to +2); Bicarbonate 34.8 mmol/L (22-26); Blood Gas Specimen Type ART; Mode AVAPS; O2 Delivery Device BiPAP; PEEP 10; PO2 92 mmHG (75-100); RR 12; SITE L Radial; SO2 97 % (95-99); Total Carbon Dioxide 37 mmol/L; pCO2 53.2 mmHg (35-45); pH 7.42 (7.35-7.45)
[2024-05-24] MEDS: AcetaZOLAMIDE 500 MG/10 ML Vial 250 MG IV (12:03)
[2024-05-24 12:30] LABS: Bedside Glucose 165 mg/dL (74-106)
--- NOTE | 2024-05-24 15:14 | PCM.PN.HOSP ---
Reason for Visit Reason for Visit: Diagnoses Other pancytopenia (05/17/24) Obstructive sleep apnea (adult) (pediatric) (05/17/24) Heart failure, unspecified (05/17/24) Respiratory failure, unspecified with hypoxia (05/17/24) Respiratory failure, unspecified with hypercapnia (05/17/24) Shortness of breath (05/17/24) Hypoxemia (05/17/24) Subjective Subjective Patient was seen and examined today, he was extubated earlier today and he is currently on 4 L of nasal cannula O2, patient appears somnolent today. Objective Data Objective Data Vital Signs: Vital Signs Temp Pulse Resp BP Pulse Ox O2 Del Method O2 Flow Rate 98.4 F 76 16 119/53 L 94 Nasal Cannula 4 05/24/24 12:00 05/24/24 15:00 05/24/24 15:00 05/24/24 15:00 05/24/24 15:00 05/24/24 15:00 05/24/24 15:00 FiO2 35 05/24/24 14:00 Oxygen Flow Rate (L/min) 4 Oxygen Delivery Method Nasal Cannula Weight: 165 kg Body Mass Index (BMI) 43.1 Intake & Output: Intake and Output for Last 24 Hours 05/22/24 05/23/24 05/24/24 23:59 23:59 23:59 Intake Total 2777.64 / 3718.40 3391.85 / 3405.15 1755.28 / 1755.28 Output Total 3175 / 3175 2250 / 2250 1050 / 1050 Balance -397.36 / 543.40 1141.85 / 1155.15 705.28 / 705.28 Lab / Micro Data 05/24/24 05:20 05/24/24 05:20 Labs: Laboratory Results - last 24 hr 05/23/24 17:25: POC Glucose 134 H 05/23/24 23:10: POC Glucose 150 H 05/24/24 05:20: WBC 4.4, RBC 2.72 L, Hgb 7.8 L, Hct 26.7 L, MCV 98.2 H, MCH 28.7, MCHC 29.2 L, RDW Std Deviation 67.4 H, RDW Coeff of Tan 19.5 H, Plt Count 120 L, MPV 12.6 H, Immature Gran % (Auto) 0.700, Neut % (Auto) 72.6 H, Lymph % (Auto) 10.4 L, [place] % (Auto) 12.0 H, Eos % (Auto) 4.1, Baso % (Auto) 0.2, Absolute Neuts (auto) 3.2, Absolute Lymphs (auto) 0.46 L, Nucleated RBC % 0, Anisocytosis 2+, Sodium 144, Potassium 3.6, Chloride 106, Carbon Dioxide 34.0 H, Anion Gap 5, BUN 48 H, Creatinine 1.78 H, Estim Creat Clear Calc 69.91, Est GFR (MDRD) Af Amer 50 L, Est GFR (MDRD) Non-Af 41 L, BUN/Creatinine Ratio 27.0 H, Glucose 176 H, Calcium 7.8 L, POC Glucose 163 H 05/24/24 12:05: POC Glucose 165 H Micro: Microbiology 05/19/24 09:10 Sputum, Induced/Lukens Gram Stain - Final 05/19/24 09:10 Sputum, Induced/Lukens Respiratory Culture - Final 05/18/24 17:40 Sputum, Tracheal Aspirate Gram Stain - Final 05/18/24 17:40 Sputum, Tracheal Aspirate Respiratory Culture - Final 05/19/24 09:10 Mucosa - Nasopharyngeal Influenza & RSV (PCR) - Final 05/19/24 07:55 Nasal Secretion MRSA (PCR) - Final 05/19/24 07:55 Urine Catheter - Mccarthy Legionella Antigen - Final 05/19/24 07:55 Urine Catheter - Mccarthy Streptococcus pneumoniae Antigen (M - Final 05/17/24 22:30 Mucosa - Nasopharyngeal Respiratory Panel (PCR) - Final 05/17/24 22:49 Nasal Secretion SARS-CoV-2 Antigen (Rapid) - Final ABG Data ABG results: ABG 05/24/24 05/24/24 09:34 11:29 Specimen Type ART ART Sample Site L Radial L Radial pH 7.45 7.42 Bicarbonate Actual 34.6 H 34.8 H Total CO2 36 37 Base Excess 11 H 10 H O2 Saturation 94 L 97 O2 % 40.0 45.0 ABG pCO2 50.3 H 53.2 H ABG pO2 68 L 92 Star Test Positive Positive Respiration Rate 16 12 O2 Delivery Device Adult Vent BiPAP Vent Mode AC AVAPS Tidal Volume 450.0 550.0 POC PEEP 5 10 Radiography Diagnostic Testing: Radiology Impression Chest X-Ray 05/23/24 07:35 IMPRESSION: Mild bilateral pleural effusions. Possible left basilar consolidation. No significant interval changes. Cardiac silhouette is enlarged with central pulmonary vascular prominence. Electronically Signed: Julianuna Carlos DO at 8:11 EST Reading Location ID and State: [facility] / [place] Tel [phone], Service support , Rhythm Strip Rhythm Strip: Sinus Rhythm Rate: 90 Ectopy: None Physical Exam Narrative Constitutional Narrative: Patient is morbidly obese, patient is somnolent, he appears in no distress General Appearance: well kempt and well developed HEENT normocephalic, head/scalp atraumatic and moist oral mucous membranes Eyes conjunctivae normal Neck no JVD and thyroid normal General: trachea midline Resp normal respiratory effort and clear to auscultation bilaterally Auscultation: Negative for rales, rhonchi or wheezes Cardio regular rate, regular rhythm, S1 normal heart sound, S2 normal heart sound, no murmurs, no rub and no gallops GI non-distended GI Narrative: Bowel sounds are present in all 4 quadrants Extremity Extremity Narrative: Generalized lower extremity nonpitting edema is noted Skin no rashes or lesions noted General Skin Exam: no breakdown Neuro Neuro Narrative: Patient is somnolent, he appears in no distress Psych Psych Narrative: Patient is somnolent, he appears in no distress Assessment & Plan Assessment/Plan (1) Respiratory failure with hypoxia and hypercapnia: PLAN: Plan 1. Acute combined respiratory failure-etiology unclear at this point- secondary to pneumonia with an overlap of congestive heart failure with normal ejection fraction-patient is not currently on any diuresis, antibiotics will continue, patient is currently off the ventilator at this time #2 community-acquired pneumonia-patient will remain on present antibiotics #3 acute congestive heart failure with preserved ejection fraction-again patient's Lasix had to be stopped due to increased bicarbonate #4 type 2 diabetes-patient will remain on sliding scale insulin per fingerstick blood sugars #5 morbid obesity-complicates care, management, recovery, and prognosis #6 hypothyroidism-patient is continuing on Synthroid #7 chronic iron deficiency anemia-requiring blood transfusion-continue to monitor CBC, patient will receive Venofer today Total clinical time spent by myself addressing the patient's medical issues, reviewing all of his data, and collaborating with patient's care team: 35 minutes Charges/Coding Visit Charges Inpatient E&M: 33952 Subs Hosp L2
[2024-05-24] MEDS: Sodium Ferric Gluconat/Sucrose 250 MG in 0.9% Normal Saline (250mL Bag) 250 ML 135 MG IV (17:08)
[2024-05-24 17:30] LABS: Bedside Glucose 128 mg/dL (74-106)
[2024-05-25] VITALS (32 sets, daily range): BP systolic 108–137; BP diastolic 44–83; PULSE 61–87; RESP 12–24; TEMP 35.9–37.1; O2SAT 92–99; BMI 42.3
[2024-05-25 00:10] LABS: Bedside Glucose 107 mg/dL (74-106)
[2024-05-25] MEDS: Piperacil/Tazobactam 3.375 GM in 0.9% Normal Saline (50mL MB+) 50 ML IV ×3 (05:08→21:34)
[2024-05-25] MEDS: 0.9% Saline Lock 10 ML Syringe IV ×3 (05:08→21:34)
[2024-05-25] MEDS: CHLORHEXIDINE GLUC 2% CLOTH 1 EACH TOWELETTE TOPICAL (05:09)
[2024-05-25 05:17] LABS: Absolute Lymphocyte Count 0.57 X10^3/uL (0.83-4.51); Absolute Neutrophil Count 4.1 X10^3/uL (2.0-7.7); Basophil# 0.02 X10^3/uL; Basophil% 0.4 % (0-1); Eosinophil# 0.16 X10^3/uL; Eosinophils% 2.9 % (0-5); Hematocrit 26.8 % (40-54); Hemoglobin 7.6 g/dL (13.0-16.5); Lymphocyte # 0.57 X10^3/ul (0.83-4.51); Lymphocyte % 10.3 % (19-41); Mean Corp Hgb Conc 28.4 g/dL (32-36); Mean Corpuscular Hgb 28.6 pg (27.0-32.0); Mean Corpuscular Volume 100.8 fL (80-94); Mean Platelet Vol. 11.4 fl (6.2-12.0); Monocyte# 0.66 X10^3/uL; NRBC Flagged by Analyzer 0 % (0-5); Neutrophil # 4.07 X10^3/uL (2.7-7.7); Neutrophil % 73.9 % (47-70); POSITIVE DIFFERENTIAL YES; POSITIVE MORPHOLOGY YES; Platelet Count 125 K/mm3 (150-450); RBC Distribution Width CV 19.6 % (11.6-14.6); RBC Distribution Width SD 68.4 fl (35.1-43.9); Red Blood Count 2.66 M/mm3 (4.6-6.2); White Blood Count 5.5 K/mm3 (4.4-11.0)
[2024-05-25 05:21] LABS: Differential Indicated SCAN CRITERIA MET
[2024-05-25 05:29] LABS: Bedside Glucose 103 mg/dL (74-106)
[2024-05-25 05:36] LABS: ALB/GLOB Ratio 0.5 RATIO (0.9-2.4); AST(SGOT) 114 U/L (15-37); Alanine Aminotransfer ALT/SGPT 26 U/L (16-61); Albumin, Serum 2.1 g/dL (3.2-5.0); Alkaline Phosphatase 93 U/L (45-117); Anion Gap 3 (5-15); BUN 50 mg/dL (7-18); BUN/Creat Ratio 27.3 RATIO (10-20); Calcium,Total 8.3 mg/dL (8.5-10.1); Chloride 109 mmol/L (98-107); Creatinine, Serum 1.83 mg/dL (0.70-1.30); EST Glomerular Filtration Rate 40 mL/min (>60); Est Glom Filt Rate - Afr Amer 48 mL/min (>60); Estimated Creatinine Clearance 67.25 ml/min; Globulin 3.9 g/dL (2.2-4.2); Glucose 107 mg/dL (74-106); Potassium 3.7 mmol/L (3.5-5.1); Sodium Level 146 mmol/L (136-145)
[2024-05-25 06:21] LABS: Anisocytosis 2+; Differential Comment SCANNED
--- NOTE | 2024-05-25 08:40 | PCM.PN.INT ---
Assessment & Plan Assessment/Plan (1) Congestive heart failure: QUALIFIERS: Heart failure type: unspecified Heart failure chronicity: acute Qualified Code(s): I50.9 - Heart failure, unspecified PLAN: Plan RECOMMENDATIONS: 1. Continue AVAPS therapy with naps and nightly. 2. Supplemental oxygen to maintain saturations at or above 90%. 3. Obtain follow-up ABG this morning. 4. Perform bedside swallow evaluation with dietary advancement as tolerated. 5. Continue antimicrobials to complete 7 days of therapy. 6. Continue appropriate ICU prophylaxis. 7. Resume home Lasix regimen once able to tolerate p.o. intake. 8. Encourage incentive spirometer use and mobilize patient as tolerated. IMPRESSIONS: 1. Acute hypoxemic and hypercapnic respiratory failure Most likely multifactorial in etiology with underlying decompensated heart failure with preserved ejection fraction and pneumonia likely contributing. I do suspect that the patient has a component of sleep apnea and alveolar hypoventilation secondary to morbid obesity. In the past, the patient was referred to undergo outpatient sleep testing, but failed to follow-up. The patient has improved from a respiratory perspective with invasive mechanical ventilatory support along with antimicrobials and diuresis. He was able to be successfully extubated on May 24. Plan to continue AVAPS therapy with naps and nightly. Supplemental oxygen can be weaned as tolerated. The patient will complete 7 days of antimicrobial therapy. The patient's home Lasix regimen can be resumed once he is able to tolerate p.o. intake. 2. History of chronic pancytopenia/diabetes mellitus/hypothyroidism/morbid obesity Complicates care, management, recovery and prognosis. Continue supportive care as noted above. PT/OT to work with the patient. This note was generated with [employer] dictation software. It may contain incorrect words, spelling, and punctuation that were not noted in checking the note before signing. Subjective Subjective The patient was seen and examined at the bedside this morning. Events from the last 24 hours have been reviewed. The patient is currently afebrile, hemodynamically stable and maintaining appropriate oxygen saturations on AVAPS therapy with an FiO2 requirement of 30%. The patient remains confused this morning but has been tolerant of PAP therapy overnight. White blood cell count is normal. Hemoglobin is stable at 7.6 g/dL with a platelet count of 125,000. Creatinine is stable at 1.83. Objective Data Objective Data The patient's most recent lab work, culture data and imaging studies have all been personally reviewed. Surface echocardiogram demonstrated mild concentric LVH with an ejection fraction of 70%. Bilateral lower extremity Doppler study was negative for DVT. Infectious workup has been unrevealing to date. Vital Signs: Vital Signs Temp Pulse Resp BP Pulse Ox O2 Del Method O2 Flow Rate 98.8 F 80 13 117/50 L 97 Bi-pap 3 05/25/24 04:00 05/25/24 07:09 05/25/24 07:09 05/25/24 06:00 05/25/24 07:09 05/25/24 06:00 05/25/24 03:00 FiO2 30 05/25/24 07:09 Oxygen Flow Rate (L/min) 3 Oxygen Delivery Method Bi-pap Weight: 356 lb 7.799 oz Body Mass Index (BMI) 42.3 Intake & Output: Intake and Output for Last 24 Hours 05/23/24 05/24/24 05/25/24 23:59 23:59 23:59 Intake Total 3391.85 / 3405.15 2185.28 / 2185.28 50 / 50 Output Total 2250 / 2250 2100 / 2100 600 / 600 Balance 1141.85 / 1155.15 85.28 / 85.28 -550 / -550 Lab / Micro Data Attestation: I reviewed the patient's lab results. 05/25/24 05:10 05/25/24 05:10 Labs: Laboratory Results - last 24 hr 05/24/24 12:05: POC Glucose 165 H 05/24/24 17:07: POC Glucose 128 H 05/24/24 23:51: POC Glucose 107 H 05/25/24 05:06: POC Glucose 103 05/25/24 05:10: WBC 5.5, RBC 2.66 L, Hgb 7.6 L, Hct 26.8 L, MCV 100.8 H, MCH 28.6, MCHC 28.4 L, RDW Std Deviation 68.4 H, RDW Coeff of Tan 19.6 H, Plt Count 125 L, MPV 11.4, Immature Gran % (Auto) 0.500, Neut % (Auto) 73.9 H, Lymph % (Auto) 10.3 L, [place] % (Auto) 12.0 H, Eos % (Auto) 2.9, Baso % (Auto) 0.4, Absolute Neuts (auto) 4.1, Absolute Lymphs (auto) 0.57 L, Nucleated RBC % 0, Differential Comment SCANNED, Anisocytosis 2+, Sodium 146 H, Potassium 3.7, Chloride 109 H, Carbon Dioxide 34.0 H, Anion Gap 3 L, BUN 50 H, Creatinine 1.83 H, Estim Creat Clear Calc 67.25, Est GFR (MDRD) Af Amer 48 L, Est GFR (MDRD) Non-Af 40 L, BUN/Creatinine Ratio 27.3 H, Glucose 107 H, Calcium 8.3 L, Total Bilirubin 0.90, AST 114 H, ALT 26, Alkaline Phosphatase 93, Total Protein 6.0 L, Albumin 2.1 L, Globulin 3.9, Albumin/Globulin Ratio 0.5 L Micro: Microbiology 05/19/24 09:10 Sputum, Induced/Lukens Gram Stain - Final 05/19/24 09:10 Sputum, Induced/Lukens Respiratory Culture - Final 05/18/24 17:40 Sputum, Tracheal Aspirate Gram Stain - Final 05/18/24 17:40 Sputum, Tracheal Aspirate Respiratory Culture - Final 05/19/24 09:10 Mucosa - Nasopharyngeal Influenza & RSV (PCR) - Final 05/19/24 07:55 Nasal Secretion MRSA (PCR) - Final 05/19/24 07:55 Urine Catheter - Mccarthy Legionella Antigen - Final 05/19/24 07:55 Urine Catheter - Mccarthy Streptococcus pneumoniae Antigen (M - Final 05/17/24 22:30 Mucosa - Nasopharyngeal Respiratory Panel (PCR) - Final 05/17/24 22:49 Nasal Secretion SARS-CoV-2 Antigen (Rapid) - Final ABG Data ABG results: ABG 05/24/24 05/24/24 09:34 11:29 Specimen Type ART ART Sample Site L Radial L Radial pH 7.45 7.42 Bicarbonate Actual 34.6 H 34.8 H Total CO2 36 37 Base Excess 11 H 10 H O2 Saturation 94 L 97 O2 % 40.0 45.0 ABG pCO2 50.3 H 53.2 H ABG pO2 68 L 92 Star Test Positive Positive Respiration Rate 16 12 O2 Delivery Device Adult Vent BiPAP Vent Mode AC AVAPS Tidal Volume 450.0 550.0 POC PEEP 5 10 Radiography Diagnostic Testing: Radiology Impression Chest X-Ray 05/23/24 07:35 IMPRESSION: Mild bilateral pleural effusions. Possible left basilar consolidation. No significant interval changes. Cardiac silhouette is enlarged with central pulmonary vascular prominence. Electronically Signed: Julianuna Carlos DO at 8:11 EST , Rhythm Strip Rhythm Strip: Sinus Rhythm Rate: 90 Ectopy: None Physical Exam Const alert and no apparent distress Constitutional Narrative: Remains somewhat disoriented and confused this morning. Currently tolerating AVAPS therapy. Morbidly obese. HEENT normocephalic and head/scalp atraumatic Eyes EOMs intact bilaterally, conjunctivae normal and no scleral icterus Neck supple Neck Narrative: Large neck circumference with redundant soft tissue. General: trachea midline Chest inspection of chest normal Resp normal respiratory effort Auscultation: diminished lung sounds; Negative for rales, rhonchi or wheezes Cardio regular rate and regular rhythm GI normal to inspection, nondistended, normoactive bowel sounds Extremity General Extremity: edema; Negative for clubbing Skin no rashes or lesions noted Neuro CN's II-XII intact bilaterally, moves all extremities and no focal motor deficits Psych Mood & Affect: flat affect Charges/Coding Visit Charges Inpatient E&M: 10371 Subs Hosp L3
[2024-05-25 09:07] LABS: Base Excess 8 mmol/L (-2 to +2); Bicarbonate 33.1 mmol/L (22-26); Blood Gas Specimen Type ART; Comment 28 14; Mode Not entered; O2 Delivery Device Not entered; PEEP 10; PO2 90 mmHG (75-100); SITE L Radial; SO2 97 % (95-99); Total Carbon Dioxide 35 mmol/L; pCO2 55.1 mmHg (35-45); pH 7.39 (7.35-7.45)
--- NOTE | 2024-05-25 09:20 | PN.HOSP_ITS ---
Reason for Visit Reason for Visit: Diagnoses Other pancytopenia (05/17/24) Obstructive sleep apnea (adult) (pediatric) (05/17/24) Heart failure, unspecified (05/17/24) Respiratory failure, unspecified with hypoxia (05/17/24) Respiratory failure, unspecified with hypercapnia (05/17/24) Shortness of breath (05/17/24) Hypoxemia (05/17/24) Subjective Subjective Patient was seen and examined today, he has some confusion, he does not appear to be in any distress, he is on an FiO2 of 0.3 at this time. I talked briefly with critical care about his care. Objective Data Objective Data Vital Signs: Vital Signs Temp Pulse Resp BP Pulse Ox O2 Del Method O2 Flow Rate 98.8 F 80 13 117/50 L 97 Bi-pap 3 05/25/24 04:00 05/25/24 07:09 05/25/24 07:09 05/25/24 06:00 05/25/24 07:09 05/25/24 06:00 05/25/24 03:00 FiO2 30 05/25/24 07:09 Oxygen Flow Rate (L/min) 3 Oxygen Delivery Method Bi-pap Weight: 161.7 kg Body Mass Index (BMI) 42.3 Intake & Output: Intake and Output for Last 24 Hours 05/23/24 05/24/24 05/25/24 23:59 23:59 23:59 Intake Total 3391.85 / 3405.15 2185.28 / 2185.28 50 / 50 Output Total 2250 / 2250 2100 / 2100 600 / 600 Balance 1141.85 / 1155.15 85.28 / 85.28 -550 / -550 Lab / Micro Data 05/25/24 05:10 05/25/24 05:10 Labs: Laboratory Results - last 24 hr 05/24/24 12:05: POC Glucose 165 H 05/24/24 17:07: POC Glucose 128 H 05/24/24 23:51: POC Glucose 107 H 05/25/24 05:06: POC Glucose 103 05/25/24 05:10: WBC 5.5, RBC 2.66 L, Hgb 7.6 L, Hct 26.8 L, MCV 100.8 H, MCH 28.6, MCHC 28.4 L, RDW Std Deviation 68.4 H, RDW Coeff of Tan 19.6 H, Plt Count 125 L, MPV 11.4, Immature Gran % (Auto) 0.500, Neut % (Auto) 73.9 H, Lymph % (Auto) 10.3 L, [place] % (Auto) 12.0 H, Eos % (Auto) 2.9, Baso % (Auto) 0.4, Absolute Neuts (auto) 4.1, Absolute Lymphs (auto) 0.57 L, Nucleated RBC % 0, Differential Comment SCANNED, Anisocytosis 2+, Sodium 146 H, Potassium 3.7, C hloride 109 H, Carbon Dioxide 34.0 H, Anion Gap 3 L, BUN 50 H, Creatinine 1.83 H , Estim Creat Clear Calc 67.25, Est GFR (MDRD) Af Amer 48 L, Est GFR (MDRD) Non- Af 40 L, BUN/Creatinine Ratio 27.3 H, Glucose 107 H, Calcium 8.3 L, Total Bilirubin 0.90, AST 114 H, ALT 26, Alkaline Phosphatase 93, Total Protein 6.0 L, Albumin 2.1 L, Globulin 3.9, Albumin/Globulin Ratio 0.5 L Micro: Microbiology 05/19/24 09:10 Sputum, Induced/Lukens Gram Stain - Final 05/19/24 09:10 Sputum, Induced/Lukens Respiratory Culture - Final 05/18/24 17:40 Sputum, Tracheal Aspirate Gram Stain - Final 05/18/24 17:40 Sputum, Tracheal Aspirate Respiratory Culture - Final 05/19/24 09:10 Mucosa - Nasopharyngeal Influenza & RSV (PCR) - Final 05/19/24 07:55 Nasal Secretion MRSA (PCR) - Final 05/19/24 07:55 Urine Catheter - Mccarthy Legionella Antigen - Final 05/19/24 07:55 Urine Catheter - Mccarthy Streptococcus pneumoniae Antigen (M - Final 05/17/24 22:30 Mucosa - Nasopharyngeal Respiratory Panel (PCR) - Final 05/17/24 22:49 Nasal Secretion SARS-CoV-2 Antigen (Rapid) - Final ABG Data ABG results: ABG 05/24/24 05/24/24 05/25/24 09:34 11:29 09:03 Specimen Type ART ART ART Sample Site L Radial L Radial L Radial pH 7.45 7.42 7.39 Bicarbonate Actual 34.6 H 34.8 H 33.1 H Total CO2 36 37 35 Base Excess 11 H 10 H 8 H O2 Saturation 94 L 97 97 O2 % 40.0 45.0 50.0 ABG pCO2 50.3 H 53.2 H 55.1 H ABG pO2 68 L 92 90 Star Test Positive Positive Respiration Rate 16 12 O2 Delivery Device Adult Vent BiPAP Not entered Vent Mode AC AVAPS Not entered Tidal Volume 450.0 550.0 550.0 POC PEEP 5 10 10 Clinical Comments 28 14 Rhythm Strip Rhythm Strip: Sinus Rhythm Rate: 90 Ectopy: None Physical Exam Narrative Constitutional Narrative: Patient is morbidly obese, patient is somnolent, he appears in no distress, he exhibits some confusion General Appearance: well kempt and well developed HEENT normocephalic, head/scalp atraumatic and moist oral mucous membranes Eyes conjunctivae normal Neck no JVD and thyroid normal General: trachea midline Resp normal respiratory effort and clear to auscultation bilaterally Auscultation: Negative for rales, rhonchi or wheezes Cardio regular rate, regular rhythm, S1 normal heart sound, S2 normal heart sound, no murmurs, no rub and no gallops GI non-distended GI Narrative: Bowel sounds are present in all 4 quadrants Extremity Extremity Narrative: Generalized lower extremity nonpitting edema is noted Skin no rashes or lesions noted General Skin Exam: no breakdown Neuro Neuro Narrative: Patient is somnolent, he appears in no distress, patient exhibits some confusion Psych Psych Narrative: Patient is somnolent, he appears in no distress, patient exhibits some confusion Assessment & Plan Assessment/Plan (1) Respiratory failure with hypoxia and hypercapnia: PLAN: Plan 1. Acute combined respiratory failure-etiology unclear at this point- secondary to pneumonia with an overlap of congestive heart failure with normal ejection fraction-patient is not currently on any diuresis, antibiotics will continue, patient is currently off the ventilator at this time #2 community-acquired pneumonia-patient will remain on present antibiotics #3 acute congestive heart failure with preserved ejection fraction, patient's respiratory status has improved #4 type 2 diabetes-patient will remain on sliding scale insulin per fingerstick blood sugars #5 morbid obesity-complicates care, management, recovery, and prognosis #6 hypothyroidism-patient is continuing on Synthroid #7 chronic iron deficiency anemia-requiring blood transfusion-continue to monitor CBC, patient will receive Venofer today #8 metabolic encephalopathy-complicates care, management, recovery, and prognosis Total clinical time spent by myself addressing the patient's medical issues, reviewing all of his data, and collaborating with patient's care team: 35 minutes Charges/Coding Visit Charges Inpatient E&M: 79610 Subs Hosp L2
--- NOTE | 2024-05-25 10:02 | CASEMGMT ---
Addendum entered by Maida Yousif 05/25/24 14:18: Social Work SW updated pt's that TCU, [facility] and [facility] have declined pt. Pt's next choice of SNF is [facility]. SW will send referral after pt has therapy today and updated notes can be included. ARCHIE Erickson Addendum entered by Maribell Sanders 05/25/24 12:46: Both [facility] and [facility] declined referral. Maribell Sanders DC Planning Asst Addendum entered by Maida Yousif 05/25/24 11:04: Social Work TCU is unable to accept. Referrals sent to [facility] and [facility]. Will await determination of acceptance. ARCHIE Silva Original Note: Social Work SW attended ICU rounds. Staff stating pt remains confused at this time. Phone call to pt and introduced self and role of SW. SW spoke with pt's regarding dc plans and likely need for short term SNF prior to return home. Pt's is understanding that this may be needed. A list of SNF providers including quality and resource use data and consistent with the patient?s preferred geographic region, medical needs, and insurance network were provided from the [employer] Guide. SW reviewed list of SNF providers with pt over the phone and the list will be left in pt room for 's review. Pt's stating preferences are 1. [facility] 2. [facility] 3. [facility]. Referral made to TCU. SW will await determination of acceptance. ARCHIE Silva
[2024-05-25] MEDS: Sodium Ferric Gluconat/Sucrose 250 MG in 0.9% Normal Saline (250mL Bag) 250 ML 135 MG IV (11:03)
[2024-05-25] MEDS: Metoprolol Tartrate 25 MG Tablet 12.5 MG PO ×2 (11:08→21:17)
[2024-05-25] MEDS: Enoxaparin 40 MG/0.4 ML Syringe SC ×2 (11:08→21:17)
[2024-05-25] MEDS: Senna/Docusate Sodium 1 Tablet 2 TABLET PO ×2 (11:08→21:18)
[2024-05-25] MEDS: Aspirin 81 MG TAB.CHEW PO (11:09)
[2024-05-25] MEDS: Pantoprazole Sodium 40 MG in 0.9% Normal Saline (100mL MB+) 100 ML 330 MG IV ×2 (11:14→21:18)
[2024-05-25 14:54] LABS: Bedside Glucose 99 mg/dL (74-106)
[2024-05-25 18:48] LABS: Bedside Glucose 104 mg/dL (74-106)
[2024-05-25] MEDS: Atorvastatin Calcium 80 MG Tablet PO (21:17)
[2024-05-25] MEDS: 0.9% Normal Saline (500mL Bag) 500 ML 15 ML IV (21:35)
[2024-05-25 22:53] LABS: Bedside Glucose 113 mg/dL (74-106)
[2024-05-26] VITALS (19 sets, daily range): BP systolic 107–143; BP diastolic 50–94; PULSE 61–80; RESP 12–21; TEMP 36.6–36.7; O2SAT 88–100; BMI 42.4
[2024-05-26 05:35] LABS: Absolute Lymphocyte Count 0.67 X10^3/uL (0.83-4.51); Absolute Neutrophil Count 3.3 X10^3/uL (2.0-7.7); Basophil# 0.02 X10^3/uL; Basophil% 0.4 % (0-1); Eosinophil# 0.12 X10^3/uL; Eosinophils% 2.6 % (0-5); Hematocrit 25.9 % (40-54); Hemoglobin 7.3 g/dL (13.0-16.5); Lymphocyte # 0.67 X10^3/ul (0.83-4.51); Lymphocyte % 14.6 % (19-41); Mean Corp Hgb Conc 28.2 g/dL (32-36); Mean Corpuscular Volume 102.8 fL (80-94); Mean Platelet Vol. 9.8 fl (6.2-12.0); Monocyte# 0.49 X10^3/uL; Monocyte% 10.7 % (0-10); NRBC Flagged by Analyzer 0 % (0-5); Neutrophil # 3.27 X10^3/uL (2.7-7.7); POSITIVE MORPHOLOGY YES; Platelet Count 119 K/mm3 (150-450); RBC Distribution Width CV 19.5 % (11.6-14.6); RBC Distribution Width SD 71.4 fl (35.1-43.9); Red Blood Count 2.52 M/mm3 (4.6-6.2); White Blood Count 4.6 K/mm3 (4.4-11.0)
[2024-05-26 05:46] LABS: Bedside Glucose 83 mg/dL (74-106)
[2024-05-26 05:59] LABS: Anion Gap 4 (5-15); BUN 54 mg/dL (7-18); BUN/Creat Ratio 30.2 RATIO (10-20); Calcium,Total 8.5 mg/dL (8.5-10.1); Chloride 112 mmol/L (98-107); Creatinine, Serum 1.79 mg/dL (0.70-1.30); EST Glomerular Filtration Rate 41 mL/min (>60); Est Glom Filt Rate - Afr Amer 49 mL/min (>60); Estimated Creatinine Clearance 68.75 ml/min; Glucose 106 mg/dL (74-106); Potassium 3.7 mmol/L (3.5-5.1); Sodium Level 149 mmol/L (136-145)
[2024-05-26 06:26] LABS: Differential Indicated SCAN CRITERIA MET
[2024-05-26] MEDS: Levothyroxine 50 MCG Tablet PO (06:50)
[2024-05-26] MEDS: Metoprolol Tartrate 25 MG Tablet 12.5 MG PO ×2 (09:02→20:49)
[2024-05-26] MEDS: Enoxaparin 40 MG/0.4 ML Syringe SC ×2 (09:03→20:48)
[2024-05-26] MEDS: Polyethylene Glycol 3350 17 GM PACKET PO (09:03)
[2024-05-26] MEDS: Aspirin 81 MG TAB.CHEW PO (09:03)
[2024-05-26] MEDS: Senna/Docusate Sodium 1 Tablet 2 TABLET PO ×2 (09:03→20:49)
[2024-05-26] MEDS: Sodium Ferric Gluconat/Sucrose 250 MG in 0.9% Normal Saline (250mL Bag) 250 ML 135 MG IV (09:50)
--- NOTE | 2024-05-26 10:09 | PN.CC_ITS ---
Assessment & Plan Assessment/Plan (1) Congestive heart failure: QUALIFIERS: Heart failure type: unspecified Heart failure chronicity: acute Qualified Code(s): I50.9 - Heart failure, unspecified PLAN: Plan RECOMMENDATIONS: 1. Continue AVAPS therapy with naps and nightly. 2. Supplemental oxygen to maintain saturations at or above 90%. 3. Continue appropriate ICU prophylaxis. 4. Resume home Lasix regimen once able to tolerate p.o. intake. 5. Encourage incentive spirometer use and mobilize patient as tolerated. 6. Strongly recommend outpatient sleep study and initiation of PAP therapy as indicated. 7. The patient is medically stable for transfer out of the intensive care unit. Will sign off from a critical care perspective. IMPRESSIONS: 1. Acute hypoxemic and hypercapnic respiratory failure Most likely multifactorial in etiology with underlying decompensated heart failure with preserved ejection fraction and pneumonia likely contributing. I do suspect that the patient has a component of sleep apnea and alveolar hypoventilation secondary to morbid obesity. In the past, the patient was referred to undergo outpatient sleep testing, but failed to follow-up. The patient has improved from a respiratory perspective with invasive mechanical ventilatory support along with antimicrobials and diuresis. He was able to be successfully extubated on May 24. Plan to continue AVAPS therapy with naps and nightly. Supplemental oxygen can be weaned as tolerated. The patient has completed 7 days of antimicrobial therapy. The patient's home Lasix regimen can be resumed once he is able to tolerate p.o. intake. Overall, however, the patient undoubtedly needs to follow-up for a sleep study following discharge so that he can be initiated on appropriate PAP therapy, as indicated. 2. History of chronic pancytopenia/diabetes mellitus/hypothyroidism/morbid obesity Complicates care, management, recovery and prognosis. Continue supportive care as noted above. PT/OT to work with the patient. This note was generated with [employer] dictation software. It may contain incorrect words, spelling, and punctuation that were not noted in checking the note before signing. Subjective Subjective The patient was seen and examined at the bedside this morning. Events from the last 24 hours have been reviewed. The patient is currently afebrile, hemodynamically stable and maintaining appropriate oxygen saturations on 3 L/min via nasal cannula. The patient has been tolerant of nocturnal PAP therapy. This morning, the patient is quite confrontational, indicating his desire to be discharged from the hospital, despite the fact that he is significantly debilitated. White blood cell count is normal. Hemoglobin and platelet count are stable at 7.3 g/dL and 119,000, respectively. Creatinine is stable at 1.79. Objective Data Objective Data The patient's most recent lab work, culture data and imaging studies have all been personally reviewed. Surface echocardiogram demonstrated mild concentric LVH with an ejection fraction of 70%. Bilateral lower extremity Doppler study was negative for DVT. Infectious workup has been unrevealing to date. Vital Signs: Vital Signs Temp Pulse Resp BP Pulse Ox O2 Del Method O2 Flow Rate 97.9 F 72 16 130/91 H 88 Nasal Cannula 3 05/26/24 04:00 05/26/24 09:02 05/26/24 08:00 05/26/24 09:02 05/26/24 09:15 05/26/24 08:48 05/26/24 09:15 FiO2 40 05/26/24 08:00 Oxygen Flow Rate (L/min) 3 Oxygen Delivery Method Nasal Cannula Weight: 357 lb 9.436 oz Body Mass Index (BMI) 42.4 Intake & Output: Intake and Output for Last 24 Hours 05/24/24 05/25/24 05/26/24 23:59 23:59 23:59 Intake Total 2185.28 / 2185.28 644.75 / 644.75 116.75 / 116.75 Output Total 2100 / 2100 1300 / 1900 950 / 950 Balance 85.28 / 85.28 -655.25 / -1255.25 -833.25 / -833.25 Lab / Micro Data Attestation: I reviewed the patient's lab results. 05/26/24 05:30 05/26/24 05:30 Labs: Laboratory Results - last 24 hr 05/25/24 12:00: POC Glucose 99 05/25/24 18:27: POC Glucose 104 05/25/24 22:34: POC Glucose 113 H 05/26/24 05:28: POC Glucose 83 05/26/24 05:30: WBC 4.6, RBC 2.52 L, Hgb 7.3 L, Hct 25.9 L, MCV 102.8 H, MCH 29.0, MCHC 28.2 L, RDW Std Deviation 71.4 H, RDW Coeff of Tan 19.5 H, Plt Count 119 L, MPV 9.8, Immature Gran % (Auto) 0.700, Neut % (Auto) 71.0 H, Lymph % (Auto) 14.6 L, [place] % (Auto) 10.7 H, Eos % (Auto) 2.6, Baso % (Auto) 0.4, Absolute Neuts (auto) 3.3, Absolute Lymphs (auto) 0.67 L, Nucleated RBC % 0, S odium 149 H, Potassium 3.7, Chloride 112 H, Carbon Dioxide 33.0 H, Anion Gap 4 L , BUN 54 H, Creatinine 1.79 H, Estim Creat Clear Calc 68.75, Est GFR (MDRD) Af Amer 49 L, Est GFR (MDRD) Non-Af 41 L, BUN/Creatinine Ratio 30.2 H, Glucose 106, Calcium 8.5 Micro: Microbiology 05/19/24 09:10 Sputum, Induced/Lukens Gram Stain - Final 05/19/24 09:10 Sputum, Induced/Lukens Respiratory Culture - Final 05/18/24 17:40 Sputum, Tracheal Aspirate Gram Stain - Final 05/18/24 17:40 Sputum, Tracheal Aspirate Respiratory Culture - Final 05/19/24 09:10 Mucosa - Nasopharyngeal Influenza & RSV (PCR) - Final 05/19/24 07:55 Nasal Secretion MRSA (PCR) - Final 05/19/24 07:55 Urine Catheter - Mccarthy Legionella Antigen - Final 05/19/24 07:55 Urine Catheter - Mccarthy Streptococcus pneumoniae Antigen (M - Final 05/17/24 22:30 Mucosa - Nasopharyngeal Respiratory Panel (PCR) - Final 05/17/24 22:49 Nasal Secretion SARS-CoV-2 Antigen (Rapid) - Final ABG Data ABG results: ABG 05/24/24 05/24/24 09:34 11:29 Specimen Type ART ART Sample Site L Radial L Radial pH 7.45 7.42 Bicarbonate Actual 34.6 H 34.8 H Total CO2 36 37 Base Excess 11 H 10 H O2 Saturation 94 L 97 O2 % 40.0 45.0 ABG pCO2 50.3 H 53.2 H ABG pO2 68 L 92 Star Test Positive Positive Respiration Rate 16 12 O2 Delivery Device Adult Vent BiPAP Vent Mode AC AVAPS Tidal Volume 450.0 550.0 POC PEEP 5 10 Radiography Diagnostic Testing: Radiology Impression Chest X-Ray 05/23/24 07:35 IMPRESSION: Mild bilateral pleural effusions. Possible left basilar consolidation. No significant interval changes. Cardiac silhouette is enlarged with central pulmonary vascular prominence. Electronically Signed: Julian Carlos DO at 8:11 EST Reading Location ID and State: [facility] / [place] Tel [phone], Service support , Rhythm Strip Rhythm Strip: Sinus Rhythm Rate: 90 Ectopy: None Physical Exam Const alert and no apparent distress Constitutional Narrative: Much more alert and interactive than yesterday. Morbidly obese. Sitting upright in bed. HEENT normocephalic and head/scalp atraumatic Eyes EOMs intact bilaterally, conjunctivae normal and no scleral icterus Neck supple Neck Narrative: Large neck circumference with redundant soft tissue. General: trachea midline Chest inspection of chest normal Resp normal respiratory effort Auscultation: diminished lung sounds; Negative for rales, rhonchi or wheezes Cardio regular rate and regular rhythm GI normal to inspection, nondistended, normoactive bowel sounds Extremity General Extremity: edema; Negative for clubbing Skin no rashes or lesions noted Neuro CN's II-XII intact bilaterally, moves all extremities and no focal motor deficits Psych Mood & Affect: flat affect Charges/Coding Visit Charges Inpatient E&M: 99492 Subs Hosp L2
--- NOTE | 2024-05-26 10:31 | CASEMGMT ---
Social Work Referral sent to [facility]. Will await determination of acceptance. ARCHIE Silva
--- NOTE | 2024-05-26 10:36 | PN.HOSP_ITS ---
Reason for Visit Reason for Visit: Diagnoses Other pancytopenia (05/17/24) Obstructive sleep apnea (adult) (pediatric) (05/17/24) Heart failure, unspecified (05/17/24) Respiratory failure, unspecified with hypoxia (05/17/24) Respiratory failure, unspecified with hypercapnia (05/17/24) Shortness of breath (05/17/24) Hypoxemia (05/17/24) Subjective Subjective Patient was seen and examined today, he was on BiPAP when I saw him, he was alert and able to carry on a conversation. I talked briefly with pulmonary medicine about his care. Patient's hemoglobin today was 7.3. Objective Data Objective Data Vital Signs: Vital Signs Temp Pulse Resp BP Pulse Ox O2 Del Method O2 Flow Rate 97.9 F 72 16 130/91 H 88 Nasal Cannula 3 05/26/24 04:00 05/26/24 09:02 05/26/24 08:00 05/26/24 09:02 05/26/24 09:15 05/26/24 08:48 05/26/24 09:15 FiO2 40 05/26/24 08:00 Oxygen Flow Rate (L/min) 3 Oxygen Delivery Method Nasal Cannula Weight: 162.2 kg Body Mass Index (BMI) 42.4 Intake & Output: Intake and Output for Last 24 Hours 05/24/24 05/25/24 05/26/24 23:59 23:59 23:59 Intake Total 2185.28 / 2185.28 644.75 / 644.75 116.75 / 116.75 Output Total 2100 / 2100 1300 / 1900 950 / 950 Balance 85.28 / 85.28 -655.25 / -1255.25 -833.25 / -833.25 Lab / Micro Data 05/26/24 05:30 05/26/24 05:30 Labs: Laboratory Results - last 24 hr 05/25/24 12:00: POC Glucose 99 05/25/24 18:27: POC Glucose 104 05/25/24 22:34: POC Glucose 113 H 05/26/24 05:28: POC Glucose 83 05/26/24 05:30: WBC 4.6, RBC 2.52 L, Hgb 7.3 L, Hct 25.9 L, MCV 102.8 H, MCH 29.0, MCHC 28.2 L, RDW Std Deviation 71.4 H, RDW Coeff of Tan 19.5 H, Plt Count 119 L, MPV 9.8, Immature Gran % (Auto) 0.700, Neut % (Auto) 71.0 H, Lymph % (Auto) 14.6 L, [place] % (Auto) 10.7 H, Eos % (Auto) 2.6, Baso % (Auto) 0.4, Absolute Neuts (auto) 3.3, Absolute Lymphs (auto) 0.67 L, Nucleated RBC % 0, S odium 149 H, Potassium 3.7, Chloride 112 H, Carbon Dioxide 33.0 H, Anion Gap 4 L , BUN 54 H, Creatinine 1.79 H, Estim Creat Clear Calc 68.75, Est GFR (MDRD) Af Amer 49 L, Est GFR (MDRD) Non-Af 41 L, BUN/Creatinine Ratio 30.2 H, Glucose 106, Calcium 8.5 Micro: Microbiology 05/19/24 09:10 Sputum, Induced/Lukens Gram Stain - Final 05/19/24 09:10 Sputum, Induced/Lukens Respiratory Culture - Final 05/18/24 17:40 Sputum, Tracheal Aspirate Gram Stain - Final 05/18/24 17:40 Sputum, Tracheal Aspirate Respiratory Culture - Final 05/19/24 09:10 Mucosa - Nasopharyngeal Influenza & RSV (PCR) - Final 05/19/24 07:55 Nasal Secretion MRSA (PCR) - Final 05/19/24 07:55 Urine Catheter - Mccarthy Legionella Antigen - Final 05/19/24 07:55 Urine Catheter - Mccarthy Streptococcus pneumoniae Antigen (M - Final 05/17/24 22:30 Mucosa - Nasopharyngeal Respiratory Panel (PCR) - Final 05/17/24 22:49 Nasal Secretion SARS-CoV-2 Antigen (Rapid) - Final Rhythm Strip Rhythm Strip: Sinus Rhythm Rate: 90 Ectopy: None Physical Exam Narrative Constitutional Narrative: Patient is morbidly obese, patient is alert, he appears in no distress General Appearance: well kempt and well developed HEENT normocephalic, head/scalp atraumatic and moist oral mucous membranes Eyes conjunctivae normal Neck no JVD and thyroid normal General: trachea midline Resp normal respiratory effort and clear to auscultation bilaterally Auscultation: Negative for rales, rhonchi or wheezes Cardio regular rate, regular rhythm, S1 normal heart sound, S2 normal heart sound, no murmurs, no rub and no gallops GI non-distended GI Narrative: Bowel sounds are present in all 4 quadrants Extremity Extremity Narrative: Generalized lower extremity nonpitting edema is noted Skin no rashes or lesions noted General Skin Exam: no breakdown Neuro Neuro Narrative: Patient is alert, he appears in no distress Psych Psych Narrative: Patient is alert, he appears in no distress Assessment & Plan Assessment/Plan (1) Respiratory failure with hypoxia and hypercapnia: PLAN: Plan 1. Acute combined respiratory failure-etiology unclear at this point- secondary to pneumonia with an overlap of congestive heart failure with normal ejection fraction-patient is not currently on any diuresis, antibiotics will continue, patient is currently off the ventilator at this time #2 community-acquired pneumonia-patient will remain on present antibiotics #3 acute congestive heart failure with preserved ejection fraction, patient's respiratory status has improved #4 type 2 diabetes-patient will remain on sliding scale insulin per fingerstick blood sugars #5 morbid obesity-complicates care, management, recovery, and prognosis #6 hypothyroidism-patient is continuing on Synthroid #7 chronic iron deficiency anemia-requiring blood transfusion-continue to monitor CBC, patient will receive Venofer today #8 metabolic encephalopathy-complicates care, management, recovery, and prognosis Patient appears stable for transfer to PCU at this time Total clinical time spent by myself addressing the patient's medical issues, reviewing all of his data, and collaborating with patient's care team: 35 minutes Charges/Coding Visit Charges Inpatient E&M: 06259 Subs Hosp L2
[2024-05-26] MEDS: Pantoprazole Sodium 40 MG in 0.9% Normal Saline (100mL MB+) 100 ML 330 MG IV ×2 (12:03→20:50)
[2024-05-26 12:25] LABS: Bedside Glucose 103 mg/dL (74-106)
--- NOTE | 2024-05-26 13:49 | SP.MBSS_ITS ---
Modified Barium Swallow Patient Information Study Date: 05/26/24 Study Time: 14:00 Direct Billable Minutes: 83 Total Minutes procedure & reportin Diagnosis: CHF I50.9 Referring Physician: Haroldo Ruiz Reason for Referral: Objectively assess swallow function, assess risk for aspiration, and determine recommendations for least restrictive diet textures and compensatory strategies to improve safety of swallow. Medical History: Patient presented [facility] ED 05/17/2024 with increasing SOB and swelling in lower extremities over the past several days prior to admission. PCP recommended he come to the ED due to these symptoms. Pt has had anemia for a long time most recently managed w/ OP infusion Wednesday before admission. In the ED, patient had CXR that did appear to have some cephalization with an increased BNP of 525 and patient initially hypoxic 78% on room air. Patient admitted for management of CHF and hypoxemia amongst other comorbidities. Pt became encephalopathic 05/18/2024 w/ respiratory failure was suspected by physician to be multifactorial (likely component of untreated GLENN, hypoventilation morbid obesity syndrome, possible HF with preserved EF). Pt was intubated, sedated by the afternoon. Pt extubated 05/24/2024 w/ transition to AVAPS. He was referred for BSE w/ ST prior to diet advancement.BSE 05/25/2024 recommended NPO w/ sips of water by tsp and meds crushed with plan for re-assessment 05/26/2024. 05/26/2024, pt had persisting coughing w/ liquid trials and PROCESS CHEESE COOKER recommended MBSS prior to diet advancement. PMH: Arthritis, Back pain, Bladder disease, Chronic anemia, Chronic pain, Compression fracture of L2, Diabetes, Dietary restriction, Edema, Foot drop, right, History of pain when walking, Hypothyroid, Injury of head and neck, Iron deficiency anemia, Muscle spasm, Nocturia, Non-smoker, GLENN, Osteoarthritis of left knee, Pancytopenia, Vitamin B12 deficiency, Walker as ambulation aid. Current Diet Ordered: NPO - ok for sips of water by tsp Dentition: Natural Teeth and Missing Teeth Mental Status: Impaired Respiratory Status: Oxygenating on 4L/M nasal cannula Penetration-Aspiration Scale Penetration-Aspiration Scale: OBJECTIVE ASSESSMENT OF SWALLOW FUNCTION (QUANTITATIVE ? PER TRIAL): PENETRATION / ASPIRATION SCALE (NOBLES): 1 = does not enter airway 2 = enters airway/above vocal folds/ejected 3 = enters airway/above vocal folds/not ejected 4 = enters airway/contacts vocal folds/ejected 5 = enters airway/contacts vocal folds/not ejected 6 = enters airway/below vocal folds/ejected 7 = enters airway/below vocal folds/not ejected despite effort 8 = enters airway/below vocal folds/no effort VIDEOFLOROSCOPIC SCALE SCORE (NOBLES): Grade I = aspiration of material that has penetrated into the laryngeal vestibule, intact cough reflex Grade II = aspiration < 10 % of the bolus, intact cough reflex Grade III = aspiration of < 10 % of the bolus, reduced cough reflex or aspiration of > 10 % of the bolus, intact cough reflex Grade IV = aspiration of > 10 % of the bolus, reduced cough reflex Penetration-Aspiration Scale Score Thin Liquid via teaspoon: Result: 1= does not enter airway Thin Liquid via teaspoon Trial 2: Result: 2= enter airway/above vocal folds/ejected Thin Liquid via small single sip: cup: Result: 1= does not enter airway Thin Liquid via large single sip: cup: Result: 2= enter airway/above vocal folds/ejected [place] Thick Liquid via large single sip: cup: Result: 1= does not enter airway Pudding via teaspoon: Result: 1= does not enter airway Comment: Esophageal screen - Retention in mid esophagus. Thin Liquid via sequential sips:straw: Result: 3= enters airways/above vocal folds/not ejected Comment: Esophageal screen - Liquid wash mostly cleared previous trial's esophageal retention. 1/2 Cookie: Result: 1= does not enter airway Oral Phase Labial Seal: Interlabial escape, no progression to anterior lip Tongue Control During Bolus Hold: Posterior escape of greater than half of bolus (sequential thin) Bolus Preparation/Mastication: Slow prolonged chewing/mashing with complete recollection Bolus Transport/Lingual Motion: Repetitive/disorganized tongue motion Oral Residue: Residue collection on oral structures Pharyngeal Phase Initiation of Pharyngeal Swallow: Bolus head in pyriforms Soft Palate Elevation: Trace column of contrast/air between soft palate and pharyngeal wall Laryngeal Elevation: Comp. Superior move thyroid cart w/comp. apprx arytenoid cart-epig pet Anterior Hyoid Excursion: Partial anterior movement Epiglottic Movement: Partial inversion Laryngeal Vestibule Closure at Height of Swallow: Incomplete; narrow column of air/contrast in laryngeal vestibule Pharyngeal Stripping Wave: Present - diminished Pharyngoesophageal Segment Opening: Complete distension and complete duration; no obstruction of flow Tongue Base Retraction: Narrow column of contrast between tongue base & post. pharyngeal wall Esophageal Phase Esophageal Clearance: Esophageal retention Diagnosis/Impression Diagnosis: Mild oropharyngeal dysphagia R13.12 Impression: The oral phase is primarily marked by... -Decreased bolus control evident w/ sequential sips of thin liquids resulting in premature posterior loss to the pyriforms. -Prolonged, but complete mastication of cookie. -Disorganized tongue motion for A-P transport. The pharyngeal phase is primarily marked by... -Delayed swallow onset w/ sequential sips of liquids. -Mildly decreased tongue base retraction and pharyngeal stripping wave w/ trace- mild pharyngeal residues. -Laryngeal penetration of sips of liquids. Sequential sips did not fully eject from the laryngeal vestibule after the swallow. No aspiration observed. The esophageal phase is primarily marked by... -Retention of pudding in the mid esophagus, which liquid wash effectively cleared. Recommendations Diet: Mechanical Soft Textures (Soft and Bite Size Textures - IDDSI Level 6) and Thin Liquids Compensatory Strategies: Small Bites, Small Sips, Slow Rate, Feed only when alert, Alternate bites/solids and sips/liquids (1:1 ratio), Sitting upright and Remain sitting upright for 30 minutes after PO intake Supervision: 1:1 Close Supervision (Staff supervision) Recommend Repeat Modified Barium Swallow: TBD Need for Skilled Speech Therapy Services: Yes Comment: -Ongoing assessment of diet tolerance. Ok to advance diet further w/ trials of solids w/ PROCESS CHEESE COOKER. -Train pt in strategies to decrease risk for aspiration. -If pt is able to follow instruction, consider implementation of oropharyngeal exercise program to include Elisa, effortful, and CTAR. Recommended Referrals: GI Consult (Please consider OP GI consult. Esophageal retention of pudding w/ MBSS, which fully cleared w/ liquid wash.) Education Completed: 1. Described result of evaluation., 2. Pt understands evaluation & agrees with goals and treatment plan. and 7. Pt requires further education on strategies & risks. Status Active ST Patient: Active Contact Information [facility] Speech Therapy:: Debra Lucas M.A. CCC-PROCESS CHEESE COOKER? Speech-Language Pathologist?? [facility] [address] [place] [address]? [email or web address]?? [phone]
[2024-05-26 18:14] LABS: Bedside Glucose 137 mg/dL (74-106)
[2024-05-26] MEDS: Atorvastatin Calcium 80 MG Tablet PO (20:48)
[2024-05-27] VITALS (18 sets, daily range): BP systolic 122–147; BP diastolic 52–62; PULSE 60–78; RESP 12–24; TEMP 36.1–36.7; O2SAT 90–100; BMI 42.1
[2024-05-27 01:14] LABS: Bedside Glucose 111 mg/dL (74-106)
--- NOTE | 2024-05-27 03:28 | CPS ---
Pt placed on bipap by RN
[2024-05-27] MEDS: Levothyroxine 50 MCG Tablet PO (06:37)
[2024-05-27 06:41] LABS: Absolute Lymphocyte Count 0.71 X10^3/uL (0.83-4.51); Absolute Neutrophil Count 2.8 X10^3/uL (2.0-7.7); Basophil# 0.01 X10^3/uL; Basophil% 0.2 % (0-1); Eosinophil# 0.18 X10^3/uL; Eosinophils% 4.4 % (0-5); Hematocrit 27.1 % (40-54); Hemoglobin 7.7 g/dL (13.0-16.5); Lymphocyte # 0.71 X10^3/ul (0.83-4.51); Lymphocyte % 17.4 % (19-41); Mean Corp Hgb Conc 28.4 g/dL (32-36); Mean Corpuscular Hgb 29.3 pg (27.0-32.0); Mean Platelet Vol. 10.4 fl (6.2-12.0); Monocyte# 0.38 X10^3/uL; Monocyte% 9.3 % (0-10); NRBC Flagged by Analyzer 0 % (0-5); Neutrophil # 2.78 X10^3/uL (2.7-7.7); POSITIVE MORPHOLOGY YES; Platelet Count 130 K/mm3 (150-450); RBC Distribution Width CV 19.7 % (11.6-14.6); RBC Distribution Width SD 71.8 fl (35.1-43.9); Red Blood Count 2.63 M/mm3 (4.6-6.2); White Blood Count 4.1 K/mm3 (4.4-11.0)
[2024-05-27 06:46] LABS: Differential Indicated SCAN CRITERIA MET
[2024-05-27 06:58] LABS: Bedside Glucose 93 mg/dL (74-106)
[2024-05-27 07:03] LABS: Anion Gap 1 (5-15); BUN 50 mg/dL (7-18); BUN/Creat Ratio 31.2 RATIO (10-20); Calcium,Total 8.9 mg/dL (8.5-10.1); Chloride 115 mmol/L (98-107); EST Glomerular Filtration Rate 46 mL/min (>60); Est Glom Filt Rate - Afr Amer 56 mL/min (>60); Estimated Creatinine Clearance 76.97 ml/min; Glucose 112 mg/dL (74-106); Potassium 3.6 mmol/L (3.5-5.1); Sodium Level 150 mmol/L (136-145)
[2024-05-27 08:10] LABS: Anisocytosis 3+; Differential Comment SCANNED; Platelet Estimate SLT DEC (ADEQ)
[2024-05-27 08:11] LABS: Hypochromasia 2+; Macrocytosis 1+; Ovalocyte 2+
[2024-05-27] MEDS: Metoprolol Tartrate 25 MG Tablet 12.5 MG PO ×2 (08:27→21:03)
[2024-05-27] MEDS: Aspirin 81 MG TAB.CHEW PO (08:27)
[2024-05-27] MEDS: Senna/Docusate Sodium 1 Tablet 2 TABLET PO ×2 (08:27→21:03)
[2024-05-27] MEDS: Enoxaparin 40 MG/0.4 ML Syringe SC ×2 (08:28→21:03)
[2024-05-27] MEDS: Pantoprazole Sodium 40 MG in 0.9% Normal Saline (100mL MB+) 100 ML 330 MG IV ×2 (08:37→21:13)
--- NOTE | 2024-05-27 13:36 | PN.HOSP_ITS ---
Reason for Visit Reason for Visit: Diagnoses Other pancytopenia (05/17/24) Obstructive sleep apnea (adult) (pediatric) (05/17/24) Heart failure, unspecified (05/17/24) Respiratory failure, unspecified with hypoxia (05/17/24) Respiratory failure, unspecified with hypercapnia (05/17/24) Shortness of breath (05/17/24) Hypoxemia (05/17/24) Subjective Subjective Patient was seen and examined today, he is currently on 3 L via nasal cannula. Patient does not appear in any distress, I told him we needed to get him up out of bed and get him more mobile before he can go home. It is likely the patient will have to go to an extended care facility for short-term rehab services. Objective Data Objective Data Vital Signs: Vital Signs Temp Pulse Resp BP Pulse Ox O2 Del Method O2 Flow Rate 98.0 F 73 15 138/58 H 93 Nasal Cannula 3 05/27/24 08:14 05/27/24 08:27 05/27/24 08:14 05/27/24 08:14 05/27/24 09:50 05/27/24 08:16 05/27/24 09:50 FiO2 40 05/27/24 04:40 Oxygen Flow Rate (L/min) 3 Oxygen Delivery Method Nasal Cannula Weight: 161.9 kg Body Mass Index (BMI) 42.1 Intake & Output: Intake and Output for Last 24 Hours 05/25/24 05/26/24 05/27/24 23:59 23:59 23:59 Intake Total 644.75 / 644.75 606.75 / 606.75 170 / 170 Output Total 1300 / 1900 1150 / 1600 800 / 800 Balance -655.25 / -1255.25 -543.25 / -993.25 -630 / -630 Lab / Micro Data 05/27/24 06:31 05/27/24 06:31 Labs: Laboratory Results - last 24 hr 05/26/24 17:55: POC Glucose 137 H 05/27/24 00:57: POC Glucose 111 H 05/27/24 06:31: WBC 4.1 L, RBC 2.63 L, Hgb 7.7 L, Hct 27.1 L, MCV 103.0 H, MCH 29.3, MCHC 28.4 L, RDW Std Deviation 71.8 H, RDW Coeff of Tan 19.7 H, Plt Count 130 L, MPV 10.4, Immature Gran % (Auto) 0.700, Neut % (Auto) 68.0, Lymph % (Auto) 17.4 L, [place] % (Auto) 9.3, Eos % (Auto) 4.4, Baso % (Auto) 0.2, Absolute Neuts (auto) 2.8, Absolute Lymphs (auto) 0.71 L, Nucleated RBC % 0, Differential Comment SCANNED, Platelet Estimate SLT DEC, Hypochromasia 2+, Anisocytosis 3+, Macrocytosis 1+, Ovalocytes 2+, Sodium 150 H, Potassium 3.6, Chloride 115 H, C arbon Dioxide 34.0 H, Anion Gap 1 L, BUN 50 H, Creatinine 1.60 H, Estim Creat Clear Calc 76.97, Est GFR (MDRD) Af Amer 56 L, Est GFR (MDRD) Non-Af 46 L, B UN/Creatinine Ratio 31.2 H, Glucose 112 H, Calcium 8.9 05/27/24 06:36: POC Glucose 93 Micro: Microbiology 05/19/24 09:10 Sputum, Induced/Lukens Gram Stain - Final 05/19/24 09:10 Sputum, Induced/Lukens Respiratory Culture - Final 05/18/24 17:40 Sputum, Tracheal Aspirate Gram Stain - Final 05/18/24 17:40 Sputum, Tracheal Aspirate Respiratory Culture - Final 05/19/24 09:10 Mucosa - Nasopharyngeal Influenza & RSV (PCR) - Final 05/19/24 07:55 Nasal Secretion MRSA (PCR) - Final 05/19/24 07:55 Urine Catheter - Mccarthy Legionella Antigen - Final 05/19/24 07:55 Urine Catheter - Mccarthy Streptococcus pneumoniae Antigen (M - Final 05/17/24 22:30 Mucosa - Nasopharyngeal Respiratory Panel (PCR) - Final 05/17/24 22:49 Nasal Secretion SARS-CoV-2 Antigen (Rapid) - Final Rhythm Strip Rhythm Strip: Sinus Rhythm Rate: 90 Ectopy: None Physical Exam Narrative Constitutional Narrative: Patient is morbidly obese, patient is alert, he appears in no distress General Appearance: well kempt and well developed HEENT normocephalic, head/scalp atraumatic and moist oral mucous membranes Eyes conjunctivae normal Neck no JVD and thyroid normal General: trachea midline Resp normal respiratory effort and clear to auscultation bilaterally Auscultation: Negative for rales, rhonchi or wheezes Cardio regular rate, regular rhythm, S1 normal heart sound, S2 normal heart sound, no murmurs, no rub and no gallops GI non-distended GI Narrative: Bowel sounds are present in all 4 quadrants Extremity Extremity Narrative: Generalized lower extremity nonpitting edema is noted Skin no rashes or lesions noted General Skin Exam: no breakdown Neuro Neuro Narrative: Patient is alert, he appears in no distress Psych Psych Narrative: Patient is alert, he appears in no distress Assessment & Plan Assessment/Plan (1) Respiratory failure with hypoxia and hypercapnia: PLAN: Plan 1. Acute combined respiratory failure-etiology unclear at this point- secondary to pneumonia with an overlap of congestive heart failure with normal ejection fraction-patient is not currently on any diuresis, antibiotics will continue, patient is stable on nasal cannula oxygen presently #2 community-acquired pneumonia-patient will remain on present antibiotics #3 acute congestive heart failure with preserved ejection fraction, patient's respiratory status has improved #4 type 2 diabetes-patient will remain on sliding scale insulin per fingerstick blood sugars #5 morbid obesity-complicates care, management, recovery, and prognosis #6 hypothyroidism-patient is continuing on Synthroid #7 chronic iron deficiency anemia-requiring blood transfusion-continue to monitor CBC, patient will receive Venofer today, hemoglobin appears to be stable at this time #8 metabolic encephalopathy-complicates care, management, recovery, and prognosis Total clinical time spent by myself addressing the patient's medical issues, reviewing all of his data, and collaborating with patient's care team: 35 minutes Charges/Coding Visit Charges Inpatient E&M: 79410 Subs Hosp L2
[2024-05-27] MEDS: Sodium Ferric Gluconat/Sucrose 250 MG in 0.9% Normal Saline (250mL Bag) 250 ML 135 MG IV (14:19)
[2024-05-27] MEDS: 0.9% Saline Lock 10 ML Syringe IV (16:46)
[2024-05-27 18:32] LABS: Bedside Glucose 111 mg/dL (74-106)
[2024-05-27] MEDS: Atorvastatin Calcium 80 MG Tablet PO (21:03)
[2024-05-28] VITALS (12 sets, daily range): BP systolic 132–141; BP diastolic 56–65; PULSE 62–76; RESP 12–20; TEMP 36.7–36.8; O2SAT 92–100; BMI 42.1; BMI 42.3
[2024-05-28 00:09] LABS: Bedside Glucose 98 mg/dL (74-106)
[2024-05-28] MEDS: Levothyroxine 50 MCG Tablet PO (05:12)
[2024-05-28 05:30] LABS: Bedside Glucose 91 mg/dL (74-106)
--- NOTE | 2024-05-28 07:28 | PN.HOSP_ITS ---
Reason for Visit Reason for Visit: Diagnoses Other pancytopenia (05/17/24) Obstructive sleep apnea (adult) (pediatric) (05/17/24) Heart failure, unspecified (05/17/24) Respiratory failure, unspecified with hypoxia (05/17/24) Respiratory failure, unspecified with hypercapnia (05/17/24) Shortness of breath (05/17/24) Hypoxemia (05/17/24) Subjective Subjective Patient was seen and examined today, he is on nasal cannula oxygen, he is alert and is able to carry on a conversation without difficulty. Patient does not seem to understand why he has to go to an extended care facility-he states he did not get up yesterday with physical therapy. Patient's hemoglobin is 7.7 today, I have elected to give him 1 more course of IV Venofer. Vital signs remained stable. Objective Data Objective Data Vital Signs: Vital Signs Temp Pulse Resp BP Pulse Ox O2 Del Method O2 Flow Rate 97.8 F 62 19 H 122/52 H 96 Bi-pap 4 05/27/24 20:30 05/28/24 02:39 05/28/24 02:39 05/27/24 20:30 05/28/24 04:00 05/28/24 04:00 05/27/24 19:45 FiO2 30 05/28/24 02:39 Oxygen Flow Rate (L/min) 4 Oxygen Delivery Method Bi-pap Weight: 162.7 kg Body Mass Index (BMI) 42.3 Intake & Output: Intake and Output for Last 24 Hours 05/26/24 05/27/24 05/28/24 23:59 23:59 23:59 Intake Total 606.75 / 606.75 550 / 650 340 / 340 Output Total 1150 / 1600 1550 / 1800 725 / 725 Balance -543.25 / -993.25 -1000 / -1150 -385 / -385 Lab / Micro Data 05/27/24 06:31 05/27/24 06:31 Labs: Laboratory Results - last 24 hr 05/27/24 06:31: Differential Comment SCANNED, Platelet Estimate SLT DEC, Hypochromasia 2+, Anisocytosis 3+, Macrocytosis 1+, Ovalocytes 2+ 05/27/24 18:12: POC Glucose 111 H 05/27/24 23:49: POC Glucose 98 05/28/24 05:10: POC Glucose 91 Micro: Microbiology 05/19/24 09:10 Sputum, Induced/Lukens Gram Stain - Final 05/19/24 09:10 Sputum, Induced/Lukens Respiratory Culture - Final 05/18/24 17:40 Sputum, Tracheal Aspirate Gram Stain - Final 05/18/24 17:40 Sputum, Tracheal Aspirate Respiratory Culture - Final 05/19/24 09:10 Mucosa - Nasopharyngeal Influenza & RSV (PCR) - Final 05/19/24 07:55 Nasal Secretion MRSA (PCR) - Final 05/19/24 07:55 Urine Catheter - Mccarthy Legionella Antigen - Final 05/19/24 07:55 Urine Catheter - Mccarthy Streptococcus pneumoniae Antigen (M - Final 05/17/24 22:30 Mucosa - Nasopharyngeal Respiratory Panel (PCR) - Final 05/17/24 22:49 Nasal Secretion SARS-CoV-2 Antigen (Rapid) - Final Rhythm Strip Rhythm Strip: Sinus Rhythm Rate: 90 Ectopy: None Physical Exam Narrative Constitutional Narrative: Patient is morbidly obese, patient is alert, he appears in no distress General Appearance: well kempt and well developed HEENT normocephalic, head/scalp atraumatic and moist oral mucous membranes Eyes conjunctivae normal Neck no JVD and thyroid normal General: trachea midline Resp normal respiratory effort and clear to auscultation bilaterally Auscultation: Negative for rales, rhonchi or wheezes Cardio regular rate, regular rhythm, S1 normal heart sound, S2 normal heart sound, no murmurs, no rub and no gallops GI non-distended GI Narrative: Bowel sounds are present in all 4 quadrants Extremity Extremity Narrative: Generalized lower extremity nonpitting edema is noted Skin no rashes or lesions noted General Skin Exam: no breakdown Neuro Neuro Narrative: Patient is alert, he appears in no distress Psych Psych Narrative: Patient is alert, he appears in no distress Assessment & Plan Assessment/Plan (1) Respiratory failure with hypoxia and hypercapnia: PLAN: Plan 1. Acute combined respiratory failure-etiology unclear at this point- secondary to pneumonia with an overlap of congestive heart failure with normal ejection fraction-patient is not currently on any diuresis, antibiotics will continue, patient is stable on nasal cannula oxygen presently #2 community-acquired pneumonia-patient's antibiotic course has been finished #3 acute congestive heart failure with preserved ejection fraction, patient's respiratory status has improved #4 type 2 diabetes-patient will remain on sliding scale insulin per fingerstick blood sugars #5 morbid obesity-complicates care, management, recovery, and prognosis #6 hypothyroidism-patient is continuing on Synthroid #7 chronic iron deficiency anemia-requiring blood transfusion-continue to monitor CBC, patient will receive Venofer today, hemoglobin appears to be stable at this time #8 metabolic encephalopathy-complicates care, management, recovery, and prognosis #9 acute debility-PT and OT will continue to work with the patient, he will need to be placed in a longterm facility for short-term rehab services. Total clinical time spent by myself addressing the patient's medical issues, reviewing all of his data, and collaborating with patient's care team: 35 minutes Charges/Coding Visit Charges Inpatient E&M: 97450 Subs Hosp L2
[2024-05-28] MEDS: Sodium Ferric Gluconat/Sucrose 250 MG in 0.9% Normal Saline (250mL Bag) 250 ML 135 MG IV (08:21)
[2024-05-28] MEDS: Metoprolol Tartrate 25 MG Tablet 12.5 MG PO ×2 (08:23→21:44)
[2024-05-28] MEDS: Aspirin 81 MG TAB.CHEW PO (08:25)
[2024-05-28] MEDS: Enoxaparin 40 MG/0.4 ML Syringe SC ×2 (08:25→21:44)
[2024-05-28] MEDS: Senna/Docusate Sodium 1 Tablet 2 TABLET PO (08:26)
--- NOTE | 2024-05-28 09:26 | NURSING ---
Report given to Monica in PCU
[2024-05-28 12:00] LABS: Bedside Glucose 145 mg/dL (74-106)
[2024-05-28] MEDS: Pantoprazole Sodium 40 MG Tablet PO ×2 (14:03→21:45)
[2024-05-28 18:26] LABS: Bedside Glucose 128 mg/dL (74-106)
[2024-05-28] MEDS: Atorvastatin Calcium 80 MG Tablet PO (21:44)
[2024-05-28 22:51] LABS: Bedside Glucose 178 mg/dL (74-106)
[2024-05-28 23:49] LABS: Bedside Glucose 132 mg/dL (74-106)
[2024-05-29] VITALS (13 sets, daily range): BP systolic 144–159; BP diastolic 58–68; PULSE 73–83; RESP 12–18; TEMP 36.3–37.3; O2SAT 88–99; BMI 42.3
[2024-05-29] MEDS: Levothyroxine 50 MCG Tablet PO (06:06)
[2024-05-29 06:15] LABS: Absolute Lymphocyte Count 0.65 X10^3/uL (0.83-4.51); Absolute Neutrophil Count 2.2 X10^3/uL (2.0-7.7); Basophil# 0.02 X10^3/uL; Basophil% 0.6 % (0-1); Eosinophil# 0.22 X10^3/uL; Eosinophils% 6.7 % (0-5); Hematocrit 28.8 % (40-54); Lymphocyte # 0.65 X10^3/ul (0.83-4.51); Lymphocyte % 19.8 % (19-41); Mean Corp Hgb Conc 27.8 g/dL (32-36); Mean Corpuscular Hgb 28.3 pg (27.0-32.0); Mean Corpuscular Volume 101.8 fL (80-94); Mean Platelet Vol. 10.9 fl (6.2-12.0); Monocyte# 0.19 X10^3/uL; Monocyte% 5.8 % (0-10); NRBC Flagged by Analyzer 0 % (0-5); Neutrophil # 2.19 X10^3/uL (2.7-7.7); Neutrophil % 66.5 % (47-70); POSITIVE MORPHOLOGY YES; Platelet Count 133 K/mm3 (150-450); RBC Distribution Width CV 19.3 % (11.6-14.6); RBC Distribution Width SD 71.2 fl (35.1-43.9); Red Blood Count 2.83 M/mm3 (4.6-6.2); White Blood Count 3.3 K/mm3 (4.4-11.0)
[2024-05-29 06:23] LABS: Differential Indicated SCAN CRITERIA MET
[2024-05-29 06:42] LABS: ALB/GLOB Ratio 0.5 RATIO (0.9-2.4); AST(SGOT) 52 U/L (15-37); Alanine Aminotransfer ALT/SGPT 32 U/L (16-61); Albumin, Serum 2.1 g/dL (3.2-5.0); Alkaline Phosphatase 107 U/L (45-117); Anion Gap 1 (5-15); BUN 38 mg/dL (7-18); BUN/Creat Ratio 34.2 RATIO (10-20); Calcium,Total 8.6 mg/dL (8.5-10.1); Chloride 114 mmol/L (98-107); Creatinine, Serum 1.11 mg/dL (0.70-1.30); EST Glomerular Filtration Rate 71 mL/min (>60); Est Glom Filt Rate - Afr Amer 85 mL/min (>60); Glucose 107 mg/dL (74-106); Potassium 3.2 mmol/L (3.5-5.1); Protein, Total 6.1 g/dL (6.4-8.2); Sodium Level 147 mmol/L (136-145)
[2024-05-29 07:04] LABS: Bedside Glucose 94 mg/dL (74-106)
--- NOTE | 2024-05-29 09:13 | CASEMGMT ---
Referral was made to [facility]. Awaiting response. Marlene Naidu MICA SPLITTER [place]
--- NOTE | 2024-05-29 09:26 | CASEMGMT ---
[facility] declined patient due to patient's weight coupled with his poor mobility status. SW will talk with patient's with regarding more options. Marlene ROSSI
[2024-05-29] MEDS: Pantoprazole Sodium 40 MG Tablet PO ×2 (09:36→20:56)
[2024-05-29] MEDS: Metoprolol Tartrate 25 MG Tablet 12.5 MG PO ×2 (09:36→20:56)
[2024-05-29] MEDS: Potassium Chloride Oral Tablet 20 MEQ 40 MEQ PO (09:37)
[2024-05-29] MEDS: Aspirin 81 MG TAB.CHEW PO (09:39)
--- NOTE | 2024-05-29 09:41 | PN.HOSP_ITS ---
Reason for Visit Reason for Visit: Diagnoses Other pancytopenia (05/17/24) Obstructive sleep apnea (adult) (pediatric) (05/17/24) Heart failure, unspecified (05/17/24) Respiratory failure, unspecified with hypoxia (05/17/24) Respiratory failure, unspecified with hypercapnia (05/17/24) Shortness of breath (05/17/24) Hypoxemia (05/17/24) Subjective Subjective Patient a little bit tired on my exam but overall was answering questions appropriately, reports being weak overall, feels his breathing is improved from previous. Objective Data Objective Data Vital Signs: Vital Signs Temp Pulse Resp BP Pulse Ox O2 Del Method O2 Flow Rate 98.1 F 75 18 145/68 H 94 Nasal Cannula 2 05/29/24 08:30 05/29/24 08:30 05/29/24 08:32 05/29/24 08:30 05/29/24 08:42 05/29/24 08:32 05/29/24 08:42 FiO2 30 05/29/24 03:30 Oxygen Flow Rate (L/min) 2 Oxygen Delivery Method Nasal Cannula Weight: 162.6 kg Body Mass Index (BMI) 42.3 Intake & Output: Intake and Output for Last 24 Hours 05/27/24 05/28/24 05/29/24 23:59 23:59 23:59 Intake Total 550 / 650 1210 / 1210 Output Total 1550 / 1800 1974 / 1974 425 / 425 Balance -1000 / -1150 -765 / -765 -425 / -425 Lab / Micro Data 05/29/24 05:21 05/29/24 05:21 Labs: Laboratory Results - last 24 hr 05/28/24 11:17: POC Glucose 145 H 05/28/24 17:57: POC Glucose 128 H 05/28/24 21:39: POC Glucose 178 H 05/28/24 23:25: POC Glucose 132 H 05/29/24 05:21: WBC 3.3 L, RBC 2.83 L, Hgb 8.0 L, Hct 28.8 L, MCV 101.8 H, MCH 28.3, MCHC 27.8 L, RDW Std Deviation 71.2 H, RDW Coeff of Tan 19.3 H, Plt Count 133 L, MPV 10.9, Immature Gran % (Auto) 0.600, Neut % (Auto) 66.5, Lymph % (Auto) 19.8, [place] % (Auto) 5.8, Eos % (Auto) 6.7 H, Baso % (Auto) 0.6, Absolute Neuts (auto) 2.2, Absolute Lymphs (auto) 0.65 L, Nucleated RBC % 0, Sodium 147 H , Potassium 3.2 L, Chloride 114 H, Carbon Dioxide 32.0, Anion Gap 1 L, BUN 38 H, Creatinine 1.11, Estim Creat Clear Calc 111.20, Est GFR (MDRD) Af Amer 85, Est GFR (MDRD) Non-Af 71, BUN/Creatinine Ratio 34.2 H, Glucose 107 H, Calcium 8.6, Total Bilirubin 0.70, AST 52 H, ALT 32, Alkaline Phosphatase 107, Total Protein 6.1 L, Albumin 2.1 L, Globulin 4.0, Albumin/Globulin Ratio 0.5 L 05/29/24 06:05: POC Glucose 94 Micro: Microbiology 05/19/24 09:10 Sputum, Induced/Lukens Gram Stain - Final 05/19/24 09:10 Sputum, Induced/Lukens Respiratory Culture - Final 05/18/24 17:40 Sputum, Tracheal Aspirate Gram Stain - Final 05/18/24 17:40 Sputum, Tracheal Aspirate Respiratory Culture - Final 05/19/24 09:10 Mucosa - Nasopharyngeal Influenza & RSV (PCR) - Final 05/19/24 07:55 Nasal Secretion MRSA (PCR) - Final 05/19/24 07:55 Urine Catheter - Mccarthy Legionella Antigen - Final 05/19/24 07:55 Urine Catheter - Mccarthy Streptococcus pneumoniae Antigen (M - Final 05/17/24 22:30 Mucosa - Nasopharyngeal Respiratory Panel (PCR) - Final 05/17/24 22:49 Nasal Secretion SARS-CoV-2 Antigen (Rapid) - Final Rhythm Strip Rhythm Strip: Sinus Rhythm Rate: 90 Ectopy: None Physical Exam Narrative General: Tired but wakes up and overall answers questions appropriately HEENT: Atraumatic, normocephalic Eyes: Anicteric, normal conjunctiva, extraocular movements grossly intact Neck: Supple Respiratory: Diminished bilaterally, slight increased work of breathing Cardiovascular: Regular rate and rhythm GI: Soft, nontender, nondistended Extremities: No significant pitting edema Musculoskeletal: Moving all extremities Neuro: No overt focal neurological deficits Skin: No rashes appreciated Psych: Cooperative Assessment & Plan Assessment/Plan (1) SOB (shortness of breath): PLAN: Plan # Acute hypoxic respiratory failure secondary to community-acquired pneumonia and possible overlap acute exacerbation of heart failure preserved ejection fraction -Did require intubation early in his hospital admission and is now status post extubation -Patient has completed antibiotic therapy -Was followed by pulmonary medicine and revise resuming oral Lasix -Will need outpatient sleep study and initiation of PAP therapy as indicated, pulm has signed off -Patient 88% on room air, saturating well on 2 L # Iron deficiency anemia -Required 2 units packed red blood cells and IV Venofer, presently has stable hemoglobin -Has had multiple endoscopies and colonoscopies on an outpatient basis, will need follow-up outpatient #Hypothyroidism -Continue Synthroid #Morbid obesity -BMI documented as 42.5 kg/m? at time of admission -Complicates treatment, prognosis, outcomes -Recommend weight loss and lifestyle changes #Weakness -Secondary to prolonged hospitalization -PT/OT -Suspect he will need placement #DVT ppx: SCDs Maricel Pinon MD Time spent in the patient's overall evaluation, decision-making process, review of diagnostic data, adjustment of management, discussion with other providers, nursing and ancillary staff involved in patient's care documentation, 40 Minutes Charges/Coding Visit Charges Inpatient E&M: [id number] Subs Hosp L2
--- NOTE | 2024-05-29 10:00 | CASEMGMT ---
SW called patient's . Introduced self and role at [facility]. SW explained that [facility] has declined patient. Patient's is agreeable to referrals being sent out to the last four remaining facilities on the list. MIHIR asked Maribell to send out referrals. Marlene ROSSI
--- NOTE | 2024-05-29 10:15 | CASEMGMT ---
Addendum entered by Maribell Sanders 05/29/24 12:51: [facility] declined referral. Maribell Sanders DC Planning Asst. Addendum entered by Maribell Sanders 05/29/24 11:27: [facility] declined. SW updated. Maribell Sanders DC Planning Asst. Original Note: Discharge Planning Referral sent to [facility], [facility], [facility], and [facility]. Maribell Sanders DC Planning Asst.
[2024-05-29 11:40] LABS: Bedside Glucose 116 mg/dL (74-106)
[2024-05-29] MEDS: Furosemide 40 MG Tablet PO (12:00)
[2024-05-29] MEDS: Ondansetron 4 MG/2 ML Vial IV (13:11)
--- NOTE | 2024-05-29 14:05 | CASEMGMT ---
[facility]. MIHIR spoke with patient and his letting them know this information. Patient preferred [facility]. [facility]HIR asked [facility] to start the pre-cert. MIHIR also notified [facility] that patient chose another facility. Plan: [facility] pending insurance approval. Marlene Naidu INSURANCE APPLICATION INVESTIGATOR [place]
[2024-05-29 16:19] LABS: Bedside Glucose 147 mg/dL (74-106)
[2024-05-29] MEDS: Atorvastatin Calcium 80 MG Tablet PO (20:57)
[2024-05-29 21:21] LABS: Bedside Glucose 176 mg/dL (74-106)
[2024-05-30] VITALS (10 sets, daily range): BP systolic 139–157; BP diastolic 54–68; PULSE 62–85; RESP 12–23; TEMP 36.1–36.8; O2SAT 93–100; BMI 42.1
[2024-05-30] MEDS: Levothyroxine 50 MCG Tablet PO (06:26)
[2024-05-30 06:48] LABS: Anion Gap -1 (5-15); BUN 33 mg/dL (7-18); BUN/Creat Ratio 29.7 RATIO (10-20); Calcium,Total 8.7 mg/dL (8.5-10.1); Chloride 114 mmol/L (98-107); Creatinine, Serum 1.11 mg/dL (0.70-1.30); EST Glomerular Filtration Rate 71 mL/min (>60); Est Glom Filt Rate - Afr Amer 85 mL/min (>60); Glucose 104 mg/dL (74-106); Potassium 3.8 mmol/L (3.5-5.1); Sodium Level 146 mmol/L (136-145)
[2024-05-30 06:48] LABS: Bedside Glucose 102 mg/dL (74-106)
[2024-05-30 08:19] LABS: Hematocrit 28.9 % (40-54); Hemoglobin 8.2 g/dL (13.0-16.5); Mean Corp Hgb Conc 28.4 g/dL (32-36); Mean Corpuscular Hgb 29.4 pg (27.0-32.0); Mean Corpuscular Volume 103.6 fL (80-94); Mean Platelet Vol. 10.4 fl (6.2-12.0); POSITIVE MORPHOLOGY YES; Platelet Count 140 K/mm3 (150-450); RBC Distribution Width CV 19.4 % (11.6-14.6); RBC Distribution Width SD 72.3 fl (35.1-43.9); Red Blood Count 2.79 M/mm3 (4.6-6.2); White Blood Count 4.1 K/mm3 (4.4-11.0)
[2024-05-30 08:20] LABS: Scan Indicated on CBC? Y/N YES- FLAGS NOTED
[2024-05-30] MEDS: Furosemide 40 MG Tablet PO (10:08)
[2024-05-30] MEDS: Pantoprazole Sodium 40 MG Tablet PO ×2 (10:08→20:35)
[2024-05-30] MEDS: Metoprolol Tartrate 25 MG Tablet 12.5 MG PO ×2 (10:08→20:35)
[2024-05-30 12:41] LABS: Bedside Glucose 123 mg/dL (74-106)
--- NOTE | 2024-05-30 14:46 | CASEMGMT ---
Discharge Planning [facility] has obtained auth to admit. SW updated. Maribell Sanders DC Planning Asst.
--- NOTE | 2024-05-30 15:32 | CASEMGMT ---
Discharge Planning Discharge orders, signed med list, and transport time sent to [facility]. Physicians will transport patient by cot at 5p. Nursing and SW updated. Nursing updated pt and his . Maribell Sanders DC Planning Asst.
--- NOTE | 2024-05-30 15:58 | CASEMGMT ---
Social Work SW received a call from Alexandra at [facility], they do not have a bed today after all, they anticipate having a bed mid morning, they are to let us know. SW called Physicians, cancelled transportation. SW let physician know that we do not have a bed today for pt so he cannot go today. SW let pt's bedside RN know, let pt know and called pt's to let her know as well that pt is not going today as there is no bed available. SW will follow up tomorrow. JESSICA Mcfadden
--- NOTE | 2024-05-30 16:14 | PHA.DC.MR.R ---
Pharmacy IN Med Reconciliation Pharmacy Service has performed discharge medication reconciliation for this patient. The patient's discharge medication list was reviewed for discrepancies and discrepancies were resolved. Medications at Discharge Home Medications levothyroxine 75 mcg tablet 50 mcg PO DAILY 01/10/24 mecobalamin (vitamin B12) 1,000 mcg chewable tablet 1,000 mcg PO DAILY multivitamin 01/10/24 furosemide 20 mg tablet (Lasix) 40 mg PO DAILY Diuretic 05/08/24 atorvastatin 80 mg tablet 40 mg (1/2 x 80 mg) PO QHS #0 tabs 05/30/24 metoprolol tartrate 25 mg tablet 12.5 mg (1/2 x 25 mg) PO BID #0 tabs 05/30/24 pantoprazole 40 mg tablet,delayed release 40 mg PO BID #0 tabs 05/30/24 sennosides 8.6 mg-docusate sodium 50 mg tablet (Stimulant Laxative Plus) 2 tab PO BID #0 tabs 05/30/24
--- NOTE | 2024-05-30 16:23 | PCM.PN.HOSP ---
Reason for Visit Reason for Visit: Diagnoses Other pancytopenia (05/17/24) Obstructive sleep apnea (adult) (pediatric) (05/17/24) Heart failure, unspecified (05/17/24) Respiratory failure, unspecified with hypoxia (05/17/24) Respiratory failure, unspecified with hypercapnia (05/17/24) Shortness of breath (05/17/24) Hypoxemia (05/17/24) Subjective Subjective Patient breathing improving, no evidence of blood loss, feels weak but otherwise no new or acute complaints Objective Data Objective Data Vital Signs: Vital Signs Temp Pulse Resp BP Pulse Ox O2 Del Method O2 Flow Rate 96.9 F L 62 17 151/63 H 96 Bi-pap 3 05/30/24 03:00 05/30/24 04:30 05/30/24 04:30 05/30/24 03:00 05/30/24 04:30 05/30/24 03:00 05/29/24 20:51 FiO2 30 05/30/24 04:30 Oxygen Flow Rate (L/min) 3 Oxygen Delivery Method Bi-pap Weight: 162.6 kg Body Mass Index (BMI) 42.3 Intake & Output: Intake and Output for Last 24 Hours 05/28/24 05/29/24 05/30/24 23:59 23:59 23:59 Intake Total 1210 / 1210 200 / 200 Output Total 1974 / 1974 825 / 825 325 / 325 Balance -765 / -765 -625 / -625 -325 / -325 Lab / Micro Data 05/30/24 05:40 05/30/24 05:40 Labs: Laboratory Results - last 24 hr 05/29/24 05:21: Differential Comment COMMENT 05/29/24 11:20: POC Glucose 116 H 05/29/24 15:48: POC Glucose 147 H 05/29/24 20:53: POC Glucose 176 H 05/30/24 05:40: Sodium 146 H, Potassium 3.8, Chloride 114 H, Carbon Dioxide 32.0, Anion Gap -1 L, BUN 33 H, Creatinine 1.11, Estim Creat Clear Calc 111.20, Est GFR (MDRD) Af Amer 85, Est GFR (MDRD) Non-Af 71, BUN/Creatinine Ratio 29.7 H, Glucose 104, Calcium 8.7 11/19/24 06:22: POC Glucose 102 Micro: Microbiology 05/19/24 09:10 Sputum, Induced/Lukens Gram Stain - Final 05/19/24 09:10 Sputum, Induced/Lukens Respiratory Culture - Final 05/18/24 17:40 Sputum, Tracheal Aspirate Gram Stain - Final 05/18/24 17:40 Sputum, Tracheal Aspirate Respiratory Culture - Final 05/19/24 09:10 Mucosa - Nasopharyngeal Influenza & RSV (PCR) - Final 05/19/24 07:55 Nasal Secretion MRSA (PCR) - Final 05/19/24 07:55 Urine Catheter - Mccarthy Legionella Antigen - Final 05/19/24 07:55 Urine Catheter - Mccarthy Streptococcus pneumoniae Antigen (M - Final 05/17/24 22:30 Mucosa - Nasopharyngeal Respiratory Panel (PCR) - Final 05/17/24 22:49 Nasal Secretion SARS-CoV-2 Antigen (Rapid) - Final Rhythm Strip Rhythm Strip: Sinus Rhythm Rate: 90 Ectopy: None Physical Exam Narrative General: Awake, alert, answering questions appropriately HEENT: Atraumatic, normocephalic Eyes: Anicteric, normal conjunctiva, extraocular movements grossly intact Neck: Supple Respiratory: Improved work of breathing, fair air exchange at apices, somewhat diminished at the bases but in part due to body habitus Cardiovascular: Regular rate and rhythm GI: Soft, nontender, nondistended Extremities: No significant pitting edema Musculoskeletal: Moving all extremities Neuro: No overt focal neurological deficits Skin: No rashes appreciated Psych: Cooperative Assessment & Plan Assessment/Plan (1) SOB (shortness of breath): PLAN: Plan # Acute hypoxic respiratory failure secondary to community-acquired pneumonia and possible overlap acute exacerbation of heart failure preserved ejection fraction -Did require intubation early in his hospital admission and is now status post extubation -Patient has completed antibiotic therapy -Was followed by pulmonary medicine and revise resuming oral Lasix -Will need outpatient sleep study and initiation of PAP therapy as indicated, pulm has signed off -Patient 88% on room air, saturating well on 2 L -05/30: Respiratory status presently stable, continue oral Lasix, outpatient pulm follow-up, BiPAP nightly # Iron deficiency anemia -Had 2 units packed red blood cells shortly before admission, IV Venofer, presently has stable hemoglobin -Has had multiple endoscopies and colonoscopies on an outpatient basis, will need follow-up outpatient -05/30: Patient's hemoglobin has been stably low without evidence of overt ongoing blood loss. Discussed with patient and that we will be important that he follow-up with GI in outpatient basis for further evaluation but given stability of hemoglobin and no evidence of any significant ongoing blood loss this would likely be best served with close outpatient follow-up. Will place SCDs and hold subcu Lovenox and also patient was not on aspirin at home so this was discontinued as well #Weakness -Secondary to prolonged hospitalization -PT/OT -Suspect he will need placement -05/30: Patient accepted to [facility] and pre-CERT obtained however patient does not have bed so discharge canceled, will transfer to outlying facility once bed available Chronic medical conditions: #Hypothyroidism -Continue Synthroid #Morbid obesity -BMI documented as 42.5 kg/m? at time of admission -Complicates treatment, prognosis, outcomes -Recommend weight loss and lifestyle changes #DVT ppx: SCDs Maricel Pinon MD Time spent in the patient's overall evaluation, decision-making process, review of diagnostic data, adjustment of management, discussion with other providers, nursing and ancillary staff involved in patient's care documentation, 36 Minutes Charges/Coding Visit Charges Inpatient E&M: 14188 Subs Hosp L2
[2024-05-30] MEDS: Atorvastatin Calcium 80 MG Tablet PO (20:35)
[2024-05-30 23:49] LABS: Bedside Glucose 187 mg/dL (74-106)
[2024-05-31 01:42] VITALS: PULSE 74; RESP 12; RESP 15; O2SAT 97
[2024-05-31 03:00] VITALS: BP 132/65; PULSE 82; RESP 18; TEMP 36.7; O2SAT 98
[2024-05-31 04:07] VITALS: O2SAT 91
[2024-05-31] MEDS: Levothyroxine 50 MCG Tablet PO (05:17)
[2024-05-31 05:24] VITALS: BMI 42.0
[2024-05-31 05:43] LABS: Absolute Lymphocyte Count 0.71 X10^3/uL (0.83-4.51); Absolute Neutrophil Count 3.1 X10^3/uL (2.0-7.7); Basophil# 0.02 X10^3/uL; Basophil% 0.5 % (0-1); Eosinophil# 0.26 X10^3/uL; Eosinophils% 5.9 % (0-5); Hematocrit 29.2 % (40-54); Hemoglobin 8.4 g/dL (13.0-16.5); Lymphocyte # 0.71 X10^3/ul (0.83-4.51); Lymphocyte % 16.2 % (19-41); Mean Corp Hgb Conc 28.8 g/dL (32-36); Mean Corpuscular Hgb 29.4 pg (27.0-32.0); Mean Corpuscular Volume 102.1 fL (80-94); Mean Platelet Vol. 10.1 fl (6.2-12.0); Monocyte# 0.24 X10^3/uL; Monocyte% 5.5 % (0-10); NRBC Flagged by Analyzer 0 % (0-5); Neutrophil # 3.13 X10^3/uL (2.7-7.7); Neutrophil % 71.2 % (47-70); POSITIVE MORPHOLOGY YES; Platelet Count 141 K/mm3 (150-450); RBC Distribution Width CV 19.5 % (11.6-14.6); RBC Distribution Width SD 73.2 fl (35.1-43.9); Red Blood Count 2.86 M/mm3 (4.6-6.2); White Blood Count 4.4 K/mm3 (4.4-11.0)
[2024-05-31 05:52] LABS: Differential Indicated SCAN CRITERIA MET
[2024-05-31 06:16] LABS: Anion Gap 1 (5-15); BUN 26 mg/dL (7-18); BUN/Creat Ratio 25.7 RATIO (10-20); Calcium,Total 8.8 mg/dL (8.5-10.1); Chloride 112 mmol/L (98-107); Creatinine, Serum 1.01 mg/dL (0.70-1.30); EST Glomerular Filtration Rate 79 mL/min (>60); Est Glom Filt Rate - Afr Amer 95 mL/min (>60); Estimated Creatinine Clearance 121.89 ml/min; Glucose 113 mg/dL (74-106); Potassium 3.9 mmol/L (3.5-5.1); Sodium Level 144 mmol/L (136-145)
[2024-05-31 06:27] LABS: Bedside Glucose 166 mg/dL (74-106)
[2024-05-31 06:46] LABS: Anisocytosis 2+; Stomatocyte RARE
[2024-05-31 06:49] LABS: Bedside Glucose 95 mg/dL (74-106)
[2024-05-31 07:44] VITALS: O2SAT 93
--- NOTE | 2024-05-31 09:47 | CASEMGMT ---
Discharge Planning Physicians will transport patient by cot at 10:30a. Nursing, SW, patient, and his updated. Maribell Sanders DC Planning Asst.
[2024-05-31 09:49] VITALS: BP 146/60; PULSE 84; RESP 16; TEMP 37; O2SAT 94
[2024-05-31 09:54] VITALS: BP 146/60; PULSE 84
[2024-05-31] MEDS: Metoprolol Tartrate 25 MG Tablet 12.5 MG PO (09:54)
[2024-05-31] MEDS: Pantoprazole Sodium 40 MG Tablet PO (09:55)
[2024-05-31] MEDS: Furosemide 40 MG Tablet PO (09:56)
--- NOTE | 2024-05-31 10:35 | TREXTCAR_ITS ---
Diet Diet Order/Speech Therapy: 05/26/24 14:53 Diet: Carbohydrate Controlled Food consistency:: Soft & Bite Sized Liquid Consistency:: Regular/Thin Dietary Modifications:: Sodium Restricted Fluid restriction:: 2000 mL Diet Comments: Direct sup, SMALL SIPS, food/drink if fully alert, alt bites/sips 1:1 Routine Orders/Code Status Suppository Type: Dulcolax 10mg Suppository Frequency: Daily PRN Routine Lab Work: CBC (3-4 days for hgb) Code Status: Full Code DC O2, CPAP, BIPAP needs PSN CPAP & BiPAP: BiPAP & CPAP Settings per PSN Mode BiPAP 05/30/24 04:30 Bipap Delivery Device Face Mask 05/30/24 04:30 BiPAP Inspiratory Pressure 14 05/18/24 11:08 BiPAP Expiratory Pressure 10 05/30/24 04:30 BiPAP Rate 12 05/30/24 04:30 Fraction of Inspired Oxygen ( 30 05/30/24 04:30 FIO2) Additional Home O2 Discharge instructions: Yes Type of respiratory needs?: Oxygen (2) Oxygen frequency: Continuous Continuous oxygen liters per minute: 2 and BiPAP BiPAP instructions: AVAPS. EPAP/CPAP 10. Bipap rate 12. FIO2 30%. AVAPTS VT 550. I-time 1.15. Max p 28. Min p 14 Wound(s) Right Elbow: Wound Type: Abrasion Right heel: Wound Type: Open Blister Therapies Physical Therapy: Eval and Treat Occupational Therapy: Eval and Treat Problem/Diagnosis (1) SOB (shortness of breath): Status: Acute Code(s): R06.02 - Shortness of breath Plan # Acute hypoxic respiratory failure secondary to community-acquired pneumonia and overlap acute exacerbation of heart failure preserved ejection fraction # Iron deficiency anemia #Weakness after prolonged hospitalization #Hypothyroidism #Morbid obesity #Suspected sleep apnea JEFFREY CONNORS, is a 63 M w/ hx morbid obesity, hypothyroidism, anemia, edema on Lasix, suspected GLENN who presented [facility] ED 05/17/2024 with increasing shortness of breath and swelling in lower extremities over several days. He has been struggling with anemia for a long time and had hemoglobin of 5.4 several days prior to admission and received 2 units packed red blood cells and 1 iron transfusion and had increased shortness of breath and lower extremity swelling since that time. He saw his PCP on day of presentation and advised to come to the ED for evaluation and treatment. Patient initially hypoxic at 70% on room air and a BNP of 525, review of chest x-ray. There might be some cephalization. Patient started on IV diuresis and hospitalist contacted for admission. Patient became progressively more hypoxic despite Lasix and did not respond to BiPAP, given worsening mental status and hypoxia and hypercapnia he was intubated and sedated 05/18/2024. Patient treated for pneumonia and also diuresed and was ultimately able to be extubated. There also was high suspicion for component of sleep apnea as well as likely obesity contribution [employer] patient was on AVAPS nightly and did very well with this. Patient received 2 units packed red blood cells early on in his hospital admission and that subsequently his hemoglobin was stable had no evidence of downtrend or ongoing blood loss. Patient had been worked up on outpatient basis with Dr. Orozco with upper and lower endoscopy and follows Dr. Toussaint, he was referred to GI but missed his appointment as he was in the hospital and ultimately will need to follow-up for further evaluation after discharge. On day of discharge patient reports breathing is stable, main complaint is feeling generally weak. Patient agreeable to placement in SNF for strengthening and was accepted to [facility]. No new or other acute complaints. Discharge instructions as follows: DISCHARGE INSTRUCTIONS PLEASE READ *Please take this with you to your next doctors appointment* -You will need to follow-up with Dr. Molina with GI in his office upon discharge. Please call his office to schedule an appointment (ph. [phone]) -Please follow-up with pulmonology upon discharge. Please call their office to schedule hospital follow-up appointment upon discharge. -And it will be very important that you follow-up on outpatient basis on discharge so that your sleep study can be set up for your suspected sleep apnea -You would benefit from continuing to use 2 L of O2 continuous and BiPAP at bedtime -Please continue to follow with Dr. Toussaint upon discharge for your low hemoglobin. -Would recommend lab work (CBC) to check your hemoglobin in 3 to 4 days through your primary care physician's office. Please call their office upon discharge to obtain order for lab work. -Your blood counts have been stable for 10 days and you have done well on Protonix, will continue, can likely decrease to once daily in the near future if remains stable -You have been started on atorvastatin (due to ascvd risk >7,5%), and metoprolol -Please call your primary care provider's office upon discharge to schedule a hospital follow up within 1 week. -For any concerning signs or symptoms please call 911 or proceed to the nearest emergency department Allergies/Procedures Done in Hospital Allergies hydromorphone (From Dilaudid) Allergy (Severe, Verified 05/17/24 21:56) Anaphylaxis gabapentin Adverse Reaction (Intermediate, Verified 05/17/24 21:56) HALLUCINATIONS Procedures: - (Intubation and extubation) Type of Care/Length of Stay Estimated LOS: Convalescent Care Less Than 30 days Type of Care Needed: Skilled Rehab Potential: Fair Prognosis: Fair Additional Orders/Day of Discharge Day of Discharge: 05/30/24 Dietary and Speech Recommendations Dietitian Recommendations/Changes: Will adjust diet to CCD/Sodium Restricted with texture/consistency per [employer] to manage medical conditions. Discharge Plan Admission Admit Date/Time: 05/17/24 19:41 Primary Reason for Your Visit: Shortness of breath Attending Provider: Maricel Pinon Primary Care Provider: Angelic Monsalve Consulting Providers: Maricel Pinon; Grace Allen; Cade Solomon; Haroldo Ruiz Instructions Patient Instructions: ED Fall Prevention Additional Instructions / Restrictions: DISCHARGE INSTRUCTIONS PLEASE READ *Please take this with you to your next doctors appointment* -You will need to follow-up with Dr. Molina with GI in his office upon discharge. Please call his office to schedule an appointment (ph. [phone]) -Please follow-up with pulmonology upon discharge. Please call their office to schedule hospital follow-up appointment upon discharge. -And will be very important that you follow-up on outpatient basis so that his s leep study can be set up for your suspected sleep apnea -You would benefit from continuing to use 2 L of O2 continuous and BiPAP at bedtime -Please continue to follow with Dr. Toussaint upon discharge for your low hemoglobin. -Would recommend lab work (CBC) to check your hemoglobin in 3 to 4 days through your primary care physician's office. Please call their office upon discharge to obtain order for lab work. -Your blood counts have been stable for 10 days and you have done well on Protonix, will continue, can likely decrease to once daily in the near future if remains stable -You have been started on atorvastatin and metoprolol -Please call your primary care provider's office upon discharge to schedule a hospital follow up within 1 week. -For any concerning signs or symptoms please call 911 or proceed to the nearest emergency department Discharge Orders/Prescriptions Prescriptions: New atorvastatin 80 mg Tablet 40 mg PO QHS Qty: 0 0RF sennosides-docusate sodium [Stimulant Laxative Plus] 8.6-50 mg Tablet 2 tab PO BID Qty: 0 0RF Rx Instructions: Hold for diarrhea pantoprazole 40 mg Tablet,Delayed Release (Dr/Ec) 40 mg PO BID Qty: 0 0RF metoprolol tartrate 25 mg Tablet 12.5 mg PO BID Qty: 0 0RF Continued mecobalamin (vitamin B12) 1,000 mcg tablet,chewable 1,000 mcg PO DAILY levothyroxine 75 mcg tablet 50 mcg PO DAILY furosemide [Lasix] 20 mg tablet 40 mg PO DAILY Referrals / Follow Up: Angelic Monsalve MD [Primary Care Provider] - Within 1 Week Alexis Laird DO [Med Staff - Active Staff] - ( -Please follow-up with pulmonology upon discharge. Please call their office to schedule hospital follow-up appointment upon discharge.) Herbert Toussaint MD [Med Staff - Active Staff] - (Please continue to follow with Dr. Toussaint upon discharge for your low hemoglobin. ) Sebastián Molina DO [Med Staff - Active Staff] - ( -You will need to follow-up with Dr. Molina with GI in his office upon discharge. Please call his office to schedule an appointment (ph. )) Disposition Disposition (needs filled in before D/C Order can be placed): Custodial Facility
--- NOTE | 2024-05-31 10:37 | DS.PCM_ITS ---
Providers Date of Admission: 05/17/24 Date of Discharge: 05/30/24 Primary Care Physician: Dr. Angelic Monsalve MD Consultations 05/18/24 09:42 Consult: Cardiology Routine Consulting Provider: Cade Solomon Reason for Consult: HF exac EMERGENT Consult: No Notified: Yes Date Notified: 05/18/24 Time Notified: 09:42 Method of Notification: Text 05/18/24 14:44 Consult: Skin Lap Bonder / Pulmonary Medicine Routine Consulting Provider: Intensivists/Pulmonary Med Reason for Consult: Resp failure, HF exac EMERGENT Consult: No Notified: Yes Date Notified: 05/18/24 Time Notified: 13:34 Method of Notification: Text Reason For Visit: FLUID OVERLOAD Diagnosis Discharge Diagnosis (1) SOB (shortness of breath): Status: Acute Code(s): R06.02 - Shortness of breath Plan # Acute hypoxic respiratory failure secondary to community-acquired pneumonia and overlap acute exacerbation of heart failure preserved ejection fraction # Iron deficiency anemia #Weakness after prolonged hospitalization #Hypothyroidism #Morbid obesity #Suspected sleep apnea Medications at Discharge Home Medications levothyroxine 75 mcg tablet 50 mcg PO DAILY 01/10/24 mecobalamin (vitamin B12) 1,000 mcg chewable tablet 1,000 mcg PO DAILY multivitamin 01/10/24 furosemide 20 mg tablet (Lasix) 40 mg PO DAILY Diuretic 05/08/24 atorvastatin 80 mg tablet 40 mg (1/2 x 80 mg) PO QHS #0 tabs 05/30/24 metoprolol tartrate 25 mg tablet 12.5 mg (1/2 x 25 mg) PO BID #0 tabs 05/30/24 pantoprazole 40 mg tablet,delayed release 40 mg PO BID #0 tabs 05/30/24 sennosides 8.6 mg-docusate sodium 50 mg tablet (Stimulant Laxative Plus) 2 tab PO BID #0 tabs 05/30/24 Hospital Course Procedures - (Intubation and extubation) Summary of Care Provided Minutes Spent on Discharge: 36 Hospital Course: JEFFREY CONNORS, is a 63 M w/ hx morbid obesity, hypothyroidism, anemia, edema on Lasix, suspected GLENN who presented [facility] ED 05/17/2024 with increasing shortness of breath and swelling in lower extremities over several days. He has been struggling with anemia for a long time and had hemoglobin of 5.4 several days prior to admission and received 2 units packed red blood cells and 1 iron transfusion and had increased shortness of breath and lower extremity swelling since that time. He saw his PCP on day of presentation and advised to come to the ED for evaluation and treatment. Patient initially hypoxic at 70% on room air and a BNP of 525, review of chest x-ray. There might be some cephalization. Patient started on IV diuresis and hospitalist contacted for admission. Patient became progressively more hypoxic despite Lasix and did not respond to BiPAP, given worsening mental status and hypoxia and hypercapnia he was intubated and sedated 05/18/2024. Patient treated for pneumonia and also diuresed and was ultimately able to be extubated. There also was high suspicion for component of sleep apnea as well as likely obesity contribution [facility] patient was on AVAPS nightly and did very well with this. Patient received 2 units packed red blood cells early on in his hospital admission and that subsequently his hemoglobin was stable had no evidence of downtrend or ongoing blood loss. Patient had been worked up on outpatient basis with Dr. Orozco with upper and lower endoscopy and follows Dr. Toussaint, he was referred to GI but missed his appointment as he was in the hospital and ultimately will need to follow-up for further evaluation after discharge. On day of discharge patient reports breathing is stable, main complaint is feeling generally weak. Patient agreeable to placement in SNF for strengthening and was accepted to [facility]. No new or other acute complaints. Discharge instructions as follows: DISCHARGE INSTRUCTIONS PLEASE READ *Please take this with you to your next doctors appointment* -You will need to follow-up with Dr. Molina with GI in his office upon discharge. Please call his office to schedule an appointment (ph. [phone]) -Please follow-up with pulmonology upon discharge. Please call their office to schedule hospital follow-up appointment upon discharge. -And it will be very important that you follow-up on outpatient basis on discharge so that your sleep study can be set up for your suspected sleep apnea -You would benefit from continuing to use 2 L of O2 continuous and BiPAP at bedtime -Please continue to follow with Dr. Toussaint upon discharge for your low hemoglobin. -Would recommend lab work (CBC) to check your hemoglobin in 3 to 4 days through your primary care physician's office. Please call their office upon discharge to obtain order for lab work. -Your blood counts have been stable for 10 days and you have done well on Protonix, will continue, can likely decrease to once daily in the near future if remains stable -You have been started on atorvastatin (due to ascvd risk >7,5%), and metoprolol -Please call your primary care provider's office upon discharge to schedule a hospital follow up within 1 week. -For any concerning signs or symptoms please call 911 or proceed to the nearest emergency department Physical Exam Narrative General: Awake, alert, answering questions appropriately HEENT: Atraumatic, normocephalic Eyes: Anicteric, normal conjunctiva, extraocular movements grossly intact Neck: Supple Respiratory: Improved work of breathing, fair air exchange at apices, somewhat diminished at the bases but in part due to body habitus Cardiovascular: Regular rate and rhythm GI: Soft, nontender, nondistended Extremities: No significant pitting edema Musculoskeletal: Moving all extremities Neuro: No overt focal neurological deficits Skin: No rashes appreciated Psych: Cooperative Weight / BMI Weight Weight: 161.9 kg Body Mass Index (BMI) 42.1 ABG / Lab / Microbiology Data 05/30/24 05:40 05/30/24 05:40 Laboratory: Laboratory Results - last 24 hr 05/29/24 15:48: POC Glucose 147 H 05/29/24 20:53: POC Glucose 176 H 05/30/24 05:40: WBC 4.1 L, RBC 2.79 L, Hgb 8.2 L, Hct 28.9 L, MCV 103.6 H, MCH 29.4, MCHC 28.4 L, RDW Std Deviation 72.3 H, RDW Coeff of Tan 19.4 H, Plt Count 140 L, MPV 10.4, Differential Comment COMMENT, Sodium 146 H, Potassium 3.8, C hloride 114 H, Carbon Dioxide 32.0, Anion Gap -1 L, BUN 33 H, Creatinine 1.11, Estim Creat Clear Calc 111.20, Est GFR (MDRD) Af Amer 85, Est GFR (MDRD) Non-Af 71, BUN/Creatinine Ratio 29.7 H, Glucose 104, Calcium 8.7 05/30/24 06:22: POC Glucose 102 05/30/24 12:22: POC Glucose 123 H Microbiology: Microbiology 05/19/24 09:10 Sputum, Induced/Lukens Gram Stain - Final 05/19/24 09:10 Sputum, Induced/Lukens Respiratory Culture - Final 05/18/24 17:40 Sputum, Tracheal Aspirate Gram Stain - Final 05/18/24 17:40 Sputum, Tracheal Aspirate Respiratory Culture - Final 05/19/24 09:10 Mucosa - Nasopharyngeal Influenza & RSV (PCR) - Final 05/19/24 07:55 Nasal Secretion MRSA (PCR) - Final 05/19/24 07:55 Urine Catheter - Mccarthy Legionella Antigen - Final 05/19/24 07:55 Urine Catheter - Mccarthy Streptococcus pneumoniae Antigen (M - Final 05/17/24 22:30 Mucosa - Nasopharyngeal Respiratory Panel (PCR) - Final 05/17/24 22:49 Nasal Secretion SARS-CoV-2 Antigen (Rapid) - Final D/C Instructions Discharge Diet: - (-DASH diet, 3000 mg sodium restriction, 2 L fluid restriction) Discharge Activity: - (Per PT/OT) DC O2, CPAP, BIPAP Needs PSN CPAP & BiPAP: BiPAP & CPAP Settings per PSN Mode BiPAP 05/30/24 04:30 Bipap Delivery Device Face Mask 05/30/24 04:30 BiPAP Inspiratory Pressure 14 05/18/24 11:08 BiPAP Expiratory Pressure 10 05/30/24 04:30 BiPAP Rate 12 05/30/24 04:30 Fraction of Inspired Oxygen ( 30 05/30/24 04:30 FIO2) Home Oxygen Instructions: Home O2 discharge Instructions Type of respiratory needs? Oxygen,BiPAP 05/30/24 15:26 DC Oxygen Instruction Oxygen frequency Continuous 05/30/24 15:26 Continuous oxygen liters per 2 05/30/24 15:26 minute DC Bipap Instructions BiPAP instructions AVAPS. EPAP/CPAP 10. Bipap 05/30/24 15:26 rate 12. FIO2 30%. AVAPTS VT 550. I-time 1.15. Max p 28. Min p 14 Additional Home O2 Discharge instructions: Yes Type of respiratory needs?: Oxygen (1) Oxygen frequency: Continuous Continuous oxygen liters per minute: 1 and BiPAP BiPAP instructions: Added on transfer of care summary DC home with Oxygen: No Meaningful Use Info Meaningful Use Meaningful Use Diagnoses (Choose all that apply): CHF CHF ALDO/ARB ordered at discharge?: No Reason ALDO/ARB not ordered?: Not indicated Documented LVEF (%): 70 Ischemic Stroke Statin Dosing Therapy Reference: STATIN DOSE THERAPY REFERENCE: * Patients > 75 years receive moderate or high dose statin therapy. * Patients 75 years or YOUNGER should receive HIGH intensity statin dose unless contraindicated. You will be required to document reason for non-treatment if statin daily dose does not meet guidelines. HIGH DOSE STATIN THERAPY DAILY Atorvastatin > than or = to 40 mg Rosuvastatin > than or = to 20 mg Amlodipine + Atorvastatin > than or = to 2.5/40 mg Ezetimibe + Simvastatin 10/80 mg Simvastatin 80mg Discharge Plan Admission Admit Date/Time: 05/17/24 19:41 Primary Reason for Your Visit: Shortness of breath Attending Provider: Maricel Pinon Primary Care Provider: Angelic Monsalve Consulting Providers: Maricel Pinon; Grace Allen; Cade Solomon; Haroldo Ruiz Instructions Patient Instructions: ED Fall Prevention Additional Instructions / Restrictions: DISCHARGE INSTRUCTIONS PLEASE READ *Please take this with you to your next doctors appointment* -You will need to follow-up with Dr. Molina with GI in his office upon discharge. Please call his office to schedule an appointment (ph. [phone]) -Please follow-up with pulmonology upon discharge. Please call their office to schedule hospital follow-up appointment upon discharge. -And will be very important that you follow-up on outpatient basis so that his sleep study can be set up for your suspected sleep apnea -You would benefit from continuing to use 2 L of O2 continuous and BiPAP at bedtime -Please continue to follow with Dr. Toussaint upon discharge for your low hemoglobin. -Would recommend lab work (CBC) to check your hemoglobin in 3 to 4 days through your primary care physician's office. Please call their office upon discharge to obtain order for lab work. -Your blood counts have been stable for 10 days and you have done well on Protonix, will continue, can likely decrease to once daily in the near future if remains stable -You have been started on atorvastatin and metoprolol -Continue your Lasix 40 mg of discharge -Recommend daily weights -Please call your primary care provider's office upon discharge to schedule a hospital follow up within 1 week. -For any concerning signs or symptoms please call 911 or proceed to the nearest emergency department Discharge Orders/Prescriptions Prescriptions: New atorvastatin 80 mg Tablet 40 mg PO QHS Qty: 0 0RF sennosides-docusate sodium [Stimulant Laxative Plus] 8.6-50 mg Tablet 2 tab PO BID Qty: 0 0RF Rx Instructions: Hold for diarrhea pantoprazole 40 mg Tablet,Delayed Release (Dr/Ec) 40 mg PO BID Qty: 0 0RF metoprolol tartrate 25 mg Tablet 12.5 mg PO BID Qty: 0 0RF Continued mecobalamin (vitamin B12) 1,000 mcg tablet,chewable 1,000 mcg PO DAILY levothyroxine 75 mcg tablet 50 mcg PO DAILY furosemide [Lasix] 20 mg tablet 40 mg PO DAILY Referrals / Follow Up: Angelic Monsalve MD [Primary Care Provider] - Within 1 Week Alexis Laird DO [Med Staff - Active Staff] - ( -Please follow-up with pulmonology upon discharge. Please call their office to schedule hospital follow-up appointment upon discharge.) Herbert Toussaint MD [Med Staff - Active Staff] - (Please continue to follow with Dr. Toussaint upon discharge for your low hemoglobin. ) Sebastián Molina DO [Med Staff - Active Staff] - ( -You will need to follow-up with Dr. Molina with GI in his office upon discharge. Please call his office to schedule an appointment (ph. [phone])) Disposition Disposition (needs filled in before D/C Order can be placed): Nursing Home Facility Charges/Coding Visit Charges Inpatient E&M: 62346 Disch Hosp >30min
--- NOTE | 2024-05-31 10:51 | NURSING ---
Called in report to [place] from [facility] at 10:50am
--- NOTE | 2024-05-31 11:25 | CASEMGMT ---
Patient was discharged to [facility]. Maribell did make sure the facility was aware of patient needing bipap. Plan: d/c to [facility] under skilled level of care. Marlene ROSSI
== END 2024-05-31 11:02 | disposition skilled nursing facility (03) | DRG 207 ==
LOC: ED 19:19 → PCU 20:36 → ICU 05-18 14:34 → PCU 05-28 09:59
PROVIDERS: Family Medicine; Internal Medicine; Admitting Provider Internal Medicine; Emergency Provider Emergency Medicine; PCP Family Medicine; Visit Provider Internal Medicine
DX: J96.02 Acute respiratory failure with hypercapnia (principal); G93.41 Metabolic encephalopathy; I50.33 Acute on chronic diastolic (congestive) heart failure; J18.9 Pneumonia, unspecified organism; D61.818 Other pancytopenia; Z68.41 Body mass index [BMI] 40.0-44.9, adult; N17.9 Acute kidney failure, unspecified; E66.2 Morbid (severe) obesity with alveolar hypoventilation; D63.1 Anemia in chronic kidney disease; E87.71 Transfusion associated circulatory overload; I27.20 Pulmonary hypertension, unspecified; E11.22 Type 2 diabetes mellitus with diabetic chronic kidney disease; E03.9 Hypothyroidism, unspecified; D50.9 Iron deficiency anemia, unspecified; J96.01 Acute respiratory failure with hypoxia; Z79.890 Hormone replacement therapy; R53.1 Weakness; R09.02 Hypoxemia; G89.29 Other chronic pain; Z11.52 Encounter for screening for COVID-19; Z79.891 Long term (current) use of opiate analgesic
CPT/HCPCS: 31500; 31720; 36415; 36569; 36600; 51702; 71045; 71275; 74230; 80048; 80053; 80061; 81001; 82550; 82803; 82962; 83036; 83735; 83880; 84100; 84132; 84145; 84439; 84443; 84478; 84484; 85014; 85018; 85025; 85027; 85610; 85730; 86850; 86900; 86901; 86920; 86922; 87070; 87205; 87449; 87631; 87633; 87641; 87811; 92526; 92610; 92611; 93005; 93308; 93970; 94002; 94003; 94660; 94762; 97110; 97162; 97166; 97530; 97535; 97803; 99252; 99285; J7040; J7050; P9016; Q9957; Q9967; A4216; C8924; G0463; J1940; J2405; J2916

== ENCOUNTER 2024-06-28 07:38 | Outpatient (CLI) | payer MEDICARE, SELFPAY ==
[2024-06-28] VITALS (14 sets, daily range): BP systolic 144–168; BP diastolic 61–80; PULSE 80–97; RESP 14–18; TEMP 37.1; O2SAT 95–100; BMI 37.3
--- NOTE | 2024-06-28 | BMB_PTH ---
PATIENT: JEFFREY CONNORS Jr. LOC: [place] U#:[id number] AGE/SX: 63/M ROOM: RE06/28/[address]: Dr. Herbert Toussaint MD : 1960 BED: DIS: 06/28/2024 SPEC #: [id number] RECD: 06/28/24 09:30 STATUS: FREDO REQ #: [id number] ELPIDIO: 06/28/24 00:[address]: Herbert Toussaint DEPT: BONE MARROW RECD BY: Leida Morgan ENTERED: 06/28/24 10:36 SP TYPE: BMB ZAMZAM DR: Dr. Angelic Monsalve MD Tissues: A - Bone marrow, NOS B - Bone marrow, NOS C - Bone marrow, NOS Procedures: Decalcification bone/plaque Bone Marrow Aspiration Bone Marrow Core Biopsy Iron Stain Bone Marrow HEADER OPERATION: CT guided bone marrow biopsy PRE-OP DIAGNOSIS: Pancytopenia TISSUE SUBMITTED: A - Core, B - Clot, C - Smears, and send outs (flow, cytogenetics) BONE MARROW DIAGNOSIS Bone marrow core, clot and aspirate smears: Normocellular marrow with trilineage hematopoiesis. See bone marrow study and comment. 06/29/2024 COMMENT A. Immunohistochemistry ([id number]) supports the above diagnosis. Flow cytometry study from [employer] show no significant immunophenotypic abnormality. Complete report is viewable in patient's EMR. Fish result: Normal MDS panel Interpretation: Negative SPECIFIC PROBE RESULST 5q: Normal 7q: Normal 8q: Normal 20q: Normal Cytogenetics studies are pending. Clinical correlation and appropriate follow up are necessary. Case has been reviewed in consultation with Dr. Akbar who concurs with the above diagnosis. IDC:AM BONE MARROW STUDY Slides are reviewed. CBC DATE: 06/28/2024 WBC 3.1; RBC 2.39; HGB 7.6; HCT 25.8; MCV 107.9; RDW 22.9; PLTS 102,000 SEGS 63.2%; LYMPHS 21.8%; MONOS 7.2%; EOS 7.2%; BASOS 0.3% PERIPHERAL SMEAR: Submitted. Pancytopenia. RBC: Macrocytic anemia. WBC: Leukopenia and neutropenia. The WBC count is compatible to as reported above. PLTS: Mildly decreased. BONE MARROW ASPIRATE DIFFERENTIAL: Not performed. ASPIRATE FINDINGS: Site: Not specified Aspicular, Hypocellular Comment: Marked hemodilution is noted. All the submitted smears are examined. Scattered erythroid and myeloid cells are noted. Significant dysplastic changes are not seen. CORE BIOPSY FINDINGS: Site: Not specified Adequacy: adequate Cellularity: 40% M/E ratio: Mild erythroid hyperplasia is noted Megakaryocytes: Present and adequate in number. Bony trabeculae: No bone tissue is identified. Granulomas: Absent. Lymphoid aggregate: Absent. Atypical infiltrate: Absent. Comment: Immunohistochemistry ([id number]) does not show significant increase of plasma cells. Blasts are not increased. ASPIRATE CLOT FINDINGS: Site: Not specified Marrow particles: a few Cellularity: 40% M/E ratio: Mild erythroid hyperplasia is noted Megakaryocytes: Present and adequate in number. Bony trabeculae: No bone tissue is identified. Granulomas: Absent. Lymphoid aggregate: Absent. Atypical infiltrate: Absent SPECIAL STAINS WITH MATCHED CONTROLS: Iron: 2+, significant increase of atypical or ring sideroblasts are not seen. Reticulin: No significant increase of reticulin fibers is noted. PAS: Highlights myeloid cells and megakaryocytes. BONE MARROW GROSS A - Received is a container labeled with the patient's name and designated Bone marrow core. The specimen consists of multiple fragments of blood clots measuring in aggregate 2.0 x 0.5 x 0.1cm. No obvious fragment of bone is identified. Shoe Shiner sections are submitted in one cassette after decalcification. B - Received labeled with the patient's name and designated Bone marrow clot is a specimen that consists of approximately 6 ml of bloody fluid that on filtration yields multiple minute fragments of blood clots measuring in aggregate 2.0 x 1.0 x 0.1 cm. The specimen is totally submitted in one cassette. C - Also received are 12 unstained and 1 peripheral stained slide. The unstained slides are submitted for appropriate staining. Also received are 2 green top tubes which are sent to our reference lab for flow, cytogenetics, MDS. 06/28/2024 / TC: CPT: 64719, 65052, 50848 x2, 81038 x3, 48806 ADDENDUM ADDENDUM ADDENDUM ADDENDUM ADDENDUM ADDENDUM ADDENDUM ADDENDUM 07/07/2024 10:16 ADDENDUM 07/10/2024 13:30 ADDENDUM 07/07/2024 10:16 ADDENDUM 07/07/2024 10:16 ADDENDUM 07/07/2024 10:16 ADDENDUM 07/07/2024 10:16 CYTOGENETICS REPORT FROM [facility] CYTOGENETIC RESULT: 46,XY[20] INTERPRETATION: Normal male karyotype was observed in twenty metaphases analyzed. Please see complete report in e-chart or EMR MDS FISH PANEL RESULT FROM [facility]: FISH RESULT: Normal MDS panel INTERPRETATION: NEGATIVE 5q: Normal 7q: Normal 8q: Normal 20q: Normal Please see complete report in e-chart or EMR
--- NOTE | 2024-06-28 | IMM_PTH ---
PATIENT: JEFFREY CONNORS Jr. LOC: CT U#:[id number] AGE/SX: 63/M ROOM: RE06/28/[address]: Dr. Herbert Toussaint MD : 1960 BED: DIS: 06/28/2024 SPEC #: [id number] RECD: 06/29/24 13:58 STATUS: FREDO REQ #: [id number] ELPIDIO: 06/28/24 00:[address]: Herbert Toussaint DEPT: IMMUNOHISTOCHEMISTRY RECD BY: Catrachito Recinos ENTERED: 06/29/24 13:58 SP TYPE: IMMUNO OTHR DR: Dr. Angelic Monsalve MD Tissues: A - Bone marrow of iliac crest Procedures: CD138 (add) CD34 (add) KAPPA (add) LAMBDA (add) CD45 (initial) PHYSICIAN & INSTITUTION [place] [id number] SPECIMEN INFORMATION: Tissue Source: A- Bone marrow core Clinical Info: Pancytopenia Specimen Number: [id number] CPT code: 62795,67767t6 METHODOLOGY: Deparaffinized sections of prefer/formalin-fixed tissue or PAP/DQ stained slides are incubated with monoclonal/polyclonal antibodies/oligonucleotide probes. Localization is made via biotin free immunoperoxidase method. Appropriate controls are performed and reacted as expected. Results on target cell population are indicated in the following table: RESULTS: ANTIBODY / CLONE RESULT Block A CD45 (RP2/18) positive, focal (small lymphocytes) CD138 (B-A38) positive, a few cells [employer] (polyclonal) positive Lambda (polyclonal) positive CD34 (QBEnd-10) negative These tests were developed and their performance characteristics determined by [facility]. They may not have been cleared or approved by the U.S. Food and Drug Administration. The FDA has determined that such clearance or approval is not necessary. The above immunohistochemical/dualISH markers are ordered and reviewed by the Pathologist. INTERPRETATION: A. Bone marrow core, bone biopsy: A few plasma cells, polytypic in nature, favor benign. Increased number of blasts are not seen. Comment: This case has reviewed in consultation with Dr. Akbar who concurs with the above diagnosis. LORENA. 06/30/2024
[2024-06-28 08:02] LABS: Absolute Lymphocyte Count 0.67 X10^3/uL (0.83-4.51); Absolute Neutrophil Count 1.9 X10^3/uL (2.0-7.7); Basophil# 0.01 X10^3/uL; Basophil% 0.3 % (0-1); Eosinophil# 0.22 X10^3/uL; Eosinophils% 7.2 % (0-5); Hematocrit 25.8 % (40-54); Hemoglobin 7.6 g/dL (13.0-16.5); Lymphocyte # 0.67 X10^3/ul (0.83-4.51); Lymphocyte % 21.8 % (19-41); Mean Corp Hgb Conc 29.5 g/dL (32-36); Mean Corpuscular Hgb 31.8 pg (27.0-32.0); Mean Corpuscular Volume 107.9 fL (80-94); Mean Platelet Vol. 9.1 fl (6.2-12.0); Monocyte# 0.22 X10^3/uL; Monocyte% 7.2 % (0-10); NRBC Flagged by Analyzer 0 % (0-5); Neutrophil # 1.94 X10^3/uL (2.7-7.7); Neutrophil % 63.2 % (47-70); POSITIVE MORPHOLOGY YES; Platelet Count 102 K/mm3 (150-450); RBC Distribution Width CV 22.9 % (11.6-14.6); Red Blood Count 2.39 M/mm3 (4.6-6.2); White Blood Count 3.1 K/mm3 (4.4-11.0)
[2024-06-28 08:04] LABS: Differential Indicated SCAN CRITERIA MET
[2024-06-28 08:54] LABS: Anisocytosis 1+
[2024-06-28] MEDS: Midazolam 2 MG/2 ML Syringe IV ×3 (09:11→09:30)
[2024-06-28] MEDS: fentaNYL 100 MCG/2 ML Ampul IV ×4 (09:12→09:34)
[2024-06-28] MEDS: Lidocaine 2% (20 ml mdv) 20 ML Vial INFILT (09:30)
--- NOTE | 2024-06-28 10:34 | PCM.OPRPT ---
Procedures Radiology Radiology CT Procedures: 58768 Dx bone marrow bx & aspir Multi Select Codes Radiology Radiology CT Procedures: 55638-82 CT guidance parenchymal tissue Operative Report (Standard) Operative Information Date of Procedure: 06/28/24 Pre-Operative Diagnosis: Pancytopenia Post-Operative Diagnosis: Pancytopenia Surgery/Procedure Performed: CT-guided bone marrow biopsy video game maker: No Type of Anesthesia: IV Sedation and Local Procedure Start Time: 09:12 Procedure Stop Time: :44 Select all DRAINS/GRAFTS/IMPLANTS that apply: None Estimated Blood Loss: 20 cc Specimen collected: Yes Description of specimen(s) removed: Bone marrow biopsy and bone marrow aspirate sent to lab Description of surgery: PROCEDURE: CT guided bone marrow biopsy and aspiration of the right iliac bone ORDERING PROVIDER: Dr. Toussaint INDICATION: Male, [address]-guided bone marrow biopsy for pancytopenia. PROVIDER: Debbie Apodaca CNP CONSENT: The risks, benefits, and alternatives to the procedure were explained to the patient. The specific risk of hemorrhage requiring further treatment or intervention was detailed and accepted. Follow-up instructions were discussed with the patient and his as well. Written informed consent was obtained. PRE-PROCEDURE SEDATION ASSESSMENT: Current history and physical dictated by referring physician and reviewed. No clinical changes since date of exam. Patient has a Mallampati Score of Class 3 and ASA Class of 3. PROCEDURAL SEDATION PROTOCOL: The Drugs used were: 3 mg Versed, IV, and 100 mcg Fentanyl, IV. The sedation time was: starting at 9:12 AM and terminated at 9:44 AM. The procedural sedation protocol was independently monitored by the department nurse. RADIATION DOSAGE (Supplied By Facility): CTDIvol = 22.37 mGy, DLP = 703.37 mGy.cm Individualized dose optimization techniques were utilized. TECHNIQUE The patient was brought into the CT suite and placed in the prone position. An appropriate entry site was identified using CT guidance. The overlying skin was prepped with chlorhexidine and draped in the usual sterile fashion. 2% lidocaine was administered subcutaneously for local anesthesia. Under CT guidance, a bone marrow biopsy and bone marrow aspirate were performed of the right iliac bone using an 11-gauge bone marrow biopsy kit. Laboratory staff was present to prepare the specimen slides and transport the specimen to the laboratory for analysis. Hemostasis was obtained, and a sterile occlusive dressing was applied. The patient tolerated the procedure well without immediate complications. IMPRESSION: Successful CT guided bone marrow biopsy and aspiration of the right iliac bone as described. Procedural Sedation protocol utilized with independent monitoring by the department nurse. Surgical Findings: Uncomplicated Complications Complications: No
[2024-06-28 15:44] LABS: Xtra CC BBK (Onc ONLY) EXTRA TUBE
[2024-07-24 14:15] LABS: Miscellaneous Lab Procedure SEE PATHOLOGY REPORT; Miscellaneous Lab Procedure 2 SEE PATHOLOGY REPORT; Miscellaneous Lab Procedure 3 SEE PATHOLOGY REPORT
== END 2024-06-28 23:59 | disposition home or self-care (01) ==
PROVIDERS: PCP Family Medicine; Referring Provider Internal Medicine Hematology & Oncology; Visit Provider Internal Medicine Hematology & Oncology
DX: D50.0 Iron deficiency anemia secondary to blood loss (chronic) (principal); D61.818 Other pancytopenia; E53.8 Deficiency of other specified B group vitamins
CPT/HCPCS: 38222; 36415; 77012; 85025; 88305; 88311; 88313; 88341; 88342; 99156; 99157; A4216

== ENCOUNTER → 2024-06-30 | Outpatient (CLI) | payer MEDICARE, SELFPAY | END | disposition home or self-care (01) | LOC: LABSPEC 15:26 | PROVIDERS: PCP Family Medicine; Referring Provider Student in an Organized Health Care Education/Training Program; Visit Provider Student in an Organized Health Care Education/Training Program | DX: D64.9 Anemia, unspecified (principal) | CPT/HCPCS: 82274 ==

== ENCOUNTER → 2024-08-04 | Outpatient (CLI) | payer OTHER, SELFPAY ==
[2024-08-04] MEDS: Lidocaine 2% (5ml sdv) 5 ML VIAL.MPF INFILT (13:52)
[2024-08-04] MEDS: Betamethasone/Betamethasone 30 MG/5 ML Vial 6 MG INTRAARTIC (13:57)
[2024-08-04] MEDS: Lidocaine 1% (5 ml sdv) 5 ML Vial OPERA.SITE (13:57)
--- NOTE | 2024-08-04 14:56 | PCM.OPRPT ---
Multi Select Codes Radiology Rad Xray Procedures: 37050 Inj Asp major Joint - Hip, Knee and 02378-98 Fluoroscopic guidance for needle placement Operative Report (Standard) Operative Information Date of Procedure: 08/04/24 Pre-Operative Diagnosis: Right Shoulder Pain Post-Operative Diagnosis: Right Shoulder Pain Surgery/Procedure Performed: Right shoulder injection electrical maintenance engineer: No Type of Anesthesia: Local Procedure Start Time: 13:34 Procedure Stop Time: 13:50 Select all DRAINS/GRAFTS/IMPLANTS that apply: None Estimated Blood Loss: minimal Specimen collected: No Description of surgery: PROCEDURE: Fluoroscopic Guided right shoulder injection ORDERING PROVIDER: Dr. Daryl Luz INDICATION: Male, 63 years old. Right shoulder osteoarthritis/pain. PROVIDER: MARCOS Monteiro FLUOROSCOPY TIME (if supplied): 0 minutes/57 seconds. 25.1 mGy CONSENT: The risks, benefits, and alternatives to the procedure were explained to the patient. The specific risks of bleeding, infection, and neurovascular injury were detailed and accepted. Witnessed informed consent was obtained. TECHNIQUE: The right glenohumeral access site was prepped with chlorhexidine and draped in sterile fashion. 2% Lidocaine was administered subcutaneously for local anesthesia. A 22-gauge spinal needle was positioned under radiographic fluoroscopic localization. Approximately 2 cc of Isovue 300 instilled for localization purposes. Medication was then injected. MEDICATIONS: 6 mg of betamethasone and 4 ml of 1% lidocaine. The spinal needle was removed, and a dressing was applied. The patient tolerated the procedure well without any immediate complications. IMPRESSION: Successful fluoroscopic guided right shoulder injection. Surgical Findings: right shoulder injection Complications Complications: No
== END | disposition home or self-care (01) ==
LOC: RAD 13:02
PROVIDERS: PCP Family Medicine; Referring Provider Specialist; Visit Provider Specialist
DX: M25.511 Pain in right shoulder (principal); M19.011 Primary osteoarthritis, right shoulder
CPT/HCPCS: 20610; 77002; J0702

== ENCOUNTER → 2024-09-29 | Outpatient (CLI) | payer MEDICARE, SELFPAY | END | disposition home or self-care (01) | LOC: SL 20:27 | PROVIDERS: PCP Family Medicine; Referring Provider Nurse Practitioner Acute Care; Visit Provider Nurse Practitioner Acute Care | DX: G47.33 Obstructive sleep apnea (adult) (pediatric) (principal) | CPT/HCPCS: 95811 ==

== ENCOUNTER 2025-02-14 11:26 | Day surgery (SDC) | payer MEDICARE, SELFPAY ==
--- NOTE | 2025-02-12 11:46 | PAT.ANE_ITS ---
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 When Was Last Pacemaker Check QUESTION #4 FULL TEXT: You/Your Family Experience fever (hyperthermia) with Anesthesia Last Oral Intake Last Oral intake: Last Oral Intake NPO since Meds taken in AM with sips of water? Meds patient instructed to take am of surgery PONV PONV - brazing machine operator helper: PONV - brazing machine operator helper Female No 02/12/25 08:53 HX of Motion Sickness No 02/12/25 08:53 HX of N/V After Surgery No 02/12/25 08:53 Non-Smoker Yes 02/12/25 08:53 Duration of Surgery greater No 02/12/25 08:53 than 60 minutes Number of Risk Factors 1 02/12/25 08:53 PONV Score Low Risk 02/12/25 08:53 Height & Weight Height & Weight: Anesthesia: Height & Weight Height 6 ft 5 in 02/05/25 10:02 Respiratory Assessment Respiratory Assessment - brazing machine operator helper: Respiratory Tract Infection Hx - brazing machine operator helper Hx Respiratory Tract Infection No 02/12/25 08:53 STOP Sleep Apnea STOP Sleep Apnea - brazing machine operator helper: STOP Sleep Apnea - brazing machine operator helper Hx Hypertension No 02/12/25 10:01 Hx Sleep Apnea Yes 02/12/25 08:53 CPAP Yes 02/12/25 08:53 BIPAP No 02/12/25 08:53 Do you snore loudly (louder than talking or can be heard Do you often feel tired/ fatigued/ sleepy during daytime? Has anyone observed you stop breathing during sleep? STOP Results Positive 02/12/25 08:53 QUESTION #5 FULL TEXT : Do you snore loudly (louder than talking or can be heard through closed doors)? Tobacco Use History Tobacco Use History - brazing machine operator helper: Tobacco Use History - brazing machine operator helper Tobacco Use Smoking Status Never smoker 02/12/25 08:53 Hx Tobacco Use No 02/12/25 08:53 Years Smoking Packs Smoked per Day Smoking Cessation Date was within the last 15 years Hx Smoking Cessation Date Hx Smoking Cessation Counseling Hematologic Medial History Hematologic Hx - brazing machine operator helper: Hematologic Medical Hx - pot feeder Hx of Blood Transfusion Yes 02/12/25 08:53 Hx of Transfusion in last 3 Yes 02/12/25 08:53 Months Date of Last Transfusion (if 01/202502/12/25 08:53 within last 3 months) Ever experience any problems No 02/12/25 08:53 with transfusion(s)? Specify any problems Hx of Preganancy in last 3 N/A 02/12/25 08:53 Months Nurse Filling Out Transfusion [email or web address] 02/12/25 08:53 & Questions: Date: 02/12/25 02/12/25 08:53 Time: 08:59 02/12/25 08:53 Patient unable to answer at this time (ie. 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 - brazing machine operator helper: /Reproductive Hx- brazing machine operator helper Hx Now Gestational Age (in weeks): EDC: Hx Hx Para Hx Section SAB No 02/12/25 08:53 PFSH Medical History History of echocardiogram MDS (myelodysplastic syndrome), low grade Deep vein thrombosis (DVT) of right upper extremity Pancytopenia Back pain GLENN (obstructive sleep apnea) Hypothyroid Edema Nocturia Muscle spasm Vitamin B12 deficiency Iron deficiency anemia History of diabetes mellitus Chronic anemia Compression fracture of L2 Osteoarthritis of left knee Diabetes Bladder disease Dietary restriction Injury of head and neck History of pain when walking Walker as ambulation aid Foot drop, right Arthritis Chronic pain Non-smoker Home Medications ?Medication ?Instructions ?Recorded ?Last Taken ?Type levothyroxine 75 mcg tablet 75 mcg PO DAILY 01/10/24 U nknown History furosemide 40 mg tablet 40 mg PO DAILY PRN edema Unknown History sodium sul 1.479 gram-potas ch See Rx Instructions PO PER PKG DIR 12/26/24 Unknown Rx 0.188 gram-magnes sul 0.225 gram #24 tabs tablet (Sutab) Allergy/AdvReac Type Severity Reaction Status Date / Time hydromorphone (From Dilaudid) Allergy Severe Anaphylaxis Verified 02/12/25 08:52 gabapentin AdvReac Intermediate HALLUCINATI Verified 02/12/25 08:52 ONS Family History Other Multiple sclerosis Surgical History (Updated 02/12/25 @ 09:04 by Karan Swenson) Hx of vertebroplasty History of total left knee replacement Hx of left cataract extraction Hx of eye surgery Social History household members: spouse Smoking Status: Never smoker alcohol intake: never substance use type: does not use Audit: Pertinent Findings Pertinent Findings EKG Perinent findings: 05/17/2024. Normal sinus rhythm 89 bpm. Right bundle branch block. Left anterior fascicular block. Echo (EF%) pertinent findings: 05/18/2024. EF 70%. Mild LVH. Aortic valve not well-visualized. Recommendation Anesthesia Recommendation Anesthesia recommendation: OPTIMIZED for anesthesia
--- NOTE | 2025-02-14 11:33 | PCM.PRE.AN2 ---
ASA Classification* ASA Classification ASA Classification: 2 Assessment & Plan Anesthesia* Anesthesia Assessment Anesthesia Assessment: Discussed sedation and/or anesthesia options, risks, benefits, and alternatives with patient/parents/legal guardian/POA. Questions invited. The patient/parents/legal guardian/POA seems to understand and agrees to proceed with anesthesia plan. Reviewed the physical assessment, medical history, allergy history and patient home medications list prior to surgery/procedure/anesthetic and documented any changes. Performed airway and anesthesia risk assessments. Anesthesia Type Anesthesia Type: MAC Anesthesia Focused Assessment* Airway Assessment Mouth opens: >3 cm Mallampati Score: II Labs Anesthesia Preop lab: CBC WBC 2.6 K/mm3 (4.4-11.0) L 02/12/25 09:12 02/12/25 RBC 2.52 M/mm3 (4.6-6.2) L 02/12/25 09:12 02/12/25 Hgb 7.9 g/dL (13.0-16.5) L 02/12/25 09:12 02/12/25 Hct 27.1 % (40-54) L 02/12/25 09:12 02/12/25 Plt Count 118 K/mm3 (150-450) L 02/12/25 09:12 02/12/25 CHEMISTRY Potassium 4.3 mmol/L (3.3-5.1) 11/27/24 13:20 11/27/24 Sodium 143 mmol/L (133-145) 11/27/24 13:20 11/27/24 Magnesium 2.1 mg/dL (1.6-2.6) 05/23/24 03:11 05/23/24 Phosphorus 4.3 mg/dL (2.5-4.9) 05/23/24 03:11 05/23/24 BUN 24 mg/dL (4-19) H 11/27/24 13:20 11/27/24 Creatinine 0.99 mg/dL (0.70-1.20) 11/27/24 13:20 11/27/24 Glucose 172 mg/dL (70-99) H 11/27/24 13:20 11/27/24 POC Glucose 95 mg/dL (74-106) 05/31/24 06:25 05/31/24 TSH 1.910 uIU/mL (0.358-3.740) 07/19/24 09:35 07/19/24 COAG PT 16.4 SECONDS (11.7-14.9) H 05/18/24 18:10 05/18/24 Pre-Assessment Diagnosis/Proposed Procedure Planned Operative Procedure(s): COLONOSCOPY, EGD Anesthesia History 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 When Was Last Pacemaker Check QUESTION #4 FULL TEXT: You/Your Family Experience fever (hyperthermia) with Anesthesia Last Oral Intake Last Oral intake: Last Oral Intake NPO since Meds taken in AM with sips of water? 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 Female No 02/12/25 08:53 HX of Motion Sickness No 02/12/25 08:53 HX of N/V After Surgery No 02/12/25 08:53 Non-Smoker Yes 02/12/25 08:53 Duration of Surgery greater No 02/12/25 08:53 than 60 minutes Number of Risk Factors 1 02/12/25 08:53 PONV Score Low Risk 02/12/25 08:53 Height & Weight Height & Weight: Anesthesia: Height & Weight Height 6 ft 5 in 02/05/25 10:02 Respiratory Assessment Respiratory Assessment - salesperson terrazzo tiles: Respiratory Tract Infection Hx - salesperson terrazzo tiles Hx Respiratory Tract Infection No 02/12/25 08:53 STOP Sleep Apnea STOP Sleep Apnea - salesperson terrazzo tiles: STOP Sleep Apnea - salesperson terrazzo tiles Hx Hypertension No 02/12/25 10:01 Hx Sleep Apnea Yes 02/12/25 08:53 CPAP Yes 02/12/25 08:53 BIPAP No 02/12/25 08:53 Do you snore loudly (louder than talking or can be heard Do you often feel tired/ fatigued/ sleepy during daytime? Has anyone observed you stop breathing during sleep? STOP Results Positive 02/12/25 08:53 QUESTION #5 FULL TEXT : Do you snore loudly (louder than talking or can be heard through closed doors)? 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 Specify any problems Hx of Preganancy in last 3 N/A 02/12/25 08:53 Months Nurse Filling Out Transfusion [email or web address] 02/12/25 08:53 & Questions: Date: 02/12/25 02/12/25 08:53 Time: 08:59 02/12/25 08:53 Patient unable to answer at this time (ie. 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 - salesperson terrazzo tiles: /Reproductive Hx- salesperson terrazzo tiles Hx Now Gestational Age (in weeks): EDC: Hx Hx Para Hx Section SAB No 02/12/25 08:53 PFSH Medical History History of echocardiogram MDS (myelodysplastic syndrome), low grade Deep vein thrombosis (DVT) of right upper extremity Pancytopenia Back pain GLENN (obstructive sleep apnea) Hypothyroid Edema Nocturia Muscle spasm Vitamin B12 deficiency Iron deficiency anemia History of diabetes mellitus Chronic anemia Compression fracture of L2 Osteoarthritis of left knee Diabetes Bladder disease Dietary restriction Injury of head and neck History of pain when walking Walker as ambulation aid Foot drop, right Arthritis Chronic pain Non-smoker Home Medications ?Medication ?Instructions ?Recorded ?Last Taken ?Type levothyroxine 75 mcg tablet 75 mcg PO DAILY 01/10/24 Unknown History furosemide 40 mg tablet 40 mg PO DAILY PRN edema 11/02/24 Unknown History sodium sul 1.479 gram-potas ch See Rx Instructions PO PER PKG DIR 12/26/24 Unknown Rx 0.188 gram-magnes sul 0.225 gram #24 tabs tablet (Sutab) Allergy/AdvReac Type Severity Reaction Status Date / Time hydromorphone (From Dilaudid) Allergy Severe Anaphylaxis Verified 02/12/25 08:52 gabapentin AdvReac Intermediate HALLUCINATI Verified 02/12/25 08:52 ONS Family History Other Multiple sclerosis Surgical History Hx of vertebroplasty History of total left knee replacement Hx of left cataract extraction Hx of eye surgery Social History household members: spouse Smoking Status: Never smoker alcohol intake: never substance use type: does not use Review of Systems (Anesthesia) ROS Narrative System reviewed and no additional complaints, except as documented.
--- NOTE | 2025-02-14 11:45 | HP.PCM_ITS ---
HPI - General General Date of Admission: 02/14/25 Date of Service: 02/14/25 Chief Complaint: Anemia HPI Narrative KHOA CONNORS, is a 64 M who presentsChief Complaint: chronic anemia [facility] admission 05.17.24-05.30.24 w/ increasing sob and lower extremity swelling. Hemiglobin several says prior was 5.4 and he received 2 unites of backed red blood cells. He was diuresed and put on BiPAP with no response. He was ultimately put intubated and placed in the ICU. He He has been struggling with anemia for a long time and follows with Dr. Song. Colonoscopy 05.24.24; with sessile polyp in the cecum, colonic AVMs, and distal sigmoid polyp. Pathology unknown Pt tells me he had EGD at the same time but we do not have this record Last OV 06.22.24: Pt has been doing ok since discharge. He continues to have fatigue. He tells me he has been anemic for many years with no etiology. He was referred to us by Dr. Gee for further work up. He has been on iron therapy. Pt did have a colonoscopy a year ago with Dr. Orozco that showed on AVM and a polyp. He denies seeing blood in his stool, melena, abdominal pain, heartburn or n/v. Capsule endoscopy 08.10.24: no signs of acute or chronic blood lose seen on study OV 12.26.24 Pt continues to have anemia and iron deficiency. He denies GI symptoms. He does not see blood in his stool. [facility] Medical History History of echocardiogram MDS (myelodysplastic syndrome), low grade Deep vein thrombosis (DVT) of right upper extremity Pancytopenia Back pain GLENN (obstructive sleep apnea) Hypothyroid Edema Nocturia Muscle spasm Vitamin B12 deficiency Iron deficiency anemia History of diabetes mellitus Chronic anemia Compression fracture of L2 Osteoarthritis of left knee Diabetes Bladder disease Dietary restriction Injury of head and neck History of pain when walking Walker as ambulation aid Foot drop, right Arthritis Chronic pain Non-smoker Home Medications ?Medication ?Instructions ?Recorded ?Last Taken ?Type levothyroxine 75 mcg tablet 75 mcg PO DAILY 01/10/24 U nknown History furosemide 40 mg tablet 40 mg PO DAILY PRN edema Unknown History sodium sul 1.479 gram-potas ch See Rx Instructions PO PER PKG DIR 12/26/24 Unknown Rx 0.188 gram-magnes sul 0.225 gram #24 tabs tablet (Sutab) Allergy/AdvReac Type Severity Reaction Status Date / Time hydromorphone (From Dilaudid) Allergy Severe Anaphylaxis Verified 02/12/25 08:52 gabapentin AdvReac Intermediate HALLUCINATI Verified 02/12/25 08:52 ONS Family History Other Multiple sclerosis Surgical History Hx of vertebroplasty History of total left knee replacement Hx of left cataract extraction Hx of eye surgery Social History household members: spouse Smoking Status: Never smoker alcohol intake: never substance use type: does not use ROS Constitutional Constitutional: Denies fatigue, fever(s), poor appetite, weight gain or weight loss Gastrointestinal Gastrointestinal: Denies belching, bloating, change in bowel habits, change in stool character, chewing difficulty, coffee ground emesis, constipation, cramping, diarrhea, dyspepsia, dysphagia, early satiety, excessive flatus, fecal incontinence, heartburn, hematemesis, hematochezia, hemorrhoids, loose stools, melena, nausea, odynophagia, rectal bleeding, tenesmus, vomiting or weight changes Physical Exam Narrative ECOG 2, Const alert, oriented x3, no apparent distress and healthy appearing General Appearance: cooperative Nutritional Appearance: morbidly obese GI normal to inspection, nondistended, normoactive bowel sounds, soft to palpation, non-tender and non-distended Percussion: normal to percussion Rectal Exam: deferred Assessment & Plan Assessment/Plan (1) Anemia: QUALIFIERS: Anemia type: bone marrow failure Bone marrow failure anemia type: other bone marrow failure Qualified Code(s): D61.89 - Other specified aplastic anemias and other bone marrow failure syndromes PLAN: Assessment and Plan Assessment and Plan (1) Anemia: Status: Chronic Qualifiers: Anemia type: bone marrow failure Bone marrow failure anemia type: other bone marrow failure Qualified Code(s): D61.89 - Other specified aplastic anemias and other bone marrow failure syndromes Comment: Myelodysplastic syndrome Plan: Khoa is a 64 yo male pt here today for f/u regarding his ongoing anemia. Pt has MDS and has been seeing oncology. Bi directional endoscopy by Dr. Orozco A few years back with one polyp and AVM. He has iron infusions however his iron level continues to downtrend. Capsule endoscopy was negative for bleeding in his small bowel. He will undergo repeat colonoscopy and EGD to re assess for bleeding in his GI tract. -Colonoscopy and EGD -f/u after procedures (2) Iron deficiency anemia: Status: Chronic Qualifiers: Iron deficiency anemia type: chronic blood loss Qualified Code(s): D50.0 - Iron deficiency anemia secondary to blood loss (chronic)
[2025-02-14 11:57] VITALS: BP 155/76; PULSE 89; RESP 16; TEMP 37; O2SAT 96; BMI 42.5
[2025-02-14] MEDS: Lactated Ringers 1,000 ML 15 ML IV (12:03)
[2025-02-14 14:13] VITALS: BP 154/75; BP 155/76; PULSE 93; RESP 18; TEMP 37.5; O2SAT 92
--- NOTE | 2025-02-14 14:15 | PCM.POST.ANE ---
Anesthesia: Postop Eval I Current Vital Signs Temperature: 99 F Pulse Rate: 92 Blood Pressure: 154/75 Respiratory Rate: 16 Pulse Ox: 95 Assessment Airway patent: Yes Spontaneous unlabored respirations: Yes Mental status: Awake nausea: No Vomiting: No Anesthesia Complication: Yes Anesthesia Complication Comment:: 2 infiltrated IV's, O2 desat d/t GLENN, colonoscopy cx Fluid Hydration Crystalloid volume administer (ml): 500 Total IV fluid infused: 500 Progress Note Anesthesia document: Postop Eval 1 completed: Yes
[2025-02-14 14:20] VITALS: BP 145/88; BP 155/76; PULSE 90; RESP 16; O2SAT 94
--- NOTE | 2025-02-14 14:20 | OP.PROVAT_ITS ---
02/14/2025 No Primary Care Physician Re : Upper GI endoscopy procedure for Khoa Turner Dear Care Physician This procedure was performed on Friday, February 14, 2025. My impressions and recommendations are as follows: Impressions : - Normal esophagus. - Gastric antral vascular ectasia with bleeding. Treated with argon plasma coagulation (APC). - No gross lesions in the entire examined duodenum. - No specimens collected. Recommendations : - Discharge patient to home. - Resume previous diet. - Continue present medications. - Port placement My findings are described in the full procedure note, which is enclosed. If I can be of further assistance, please feel free to contact me at . Sincerely, Sebastián Molina, 02/14/2025 2:20:29 PM This report has been signed electronically.
--- NOTE | 2025-02-14 14:20 | OP.EGD_ITS ---
Patient Name: Khoa Turner Procedure Date: 02/14/2025 12:46 PM Date of : 1960 Age: 64 Procedure: Upper GI endoscopy Indications: Iron deficiency anemia secondary to chronic blood loss, Iron deficiency anemia Providers: Sebastián Molina DO Referring MD: No Primary Care Physician Medicines: Monitored Anesthesia Care Patient Profile: This is a 64 year old male. Refer to note in patient chart for documentation of history and physical. Patient has symptoms. Complications: No immediate complications. Procedure: Pre-Anesthesia Assessment: - Prior to the procedure, a History and Physical was performed, and patient medications and allergies were reviewed. The patient is competent. The risks and benefits of the procedure and the sedation options and risks were discussed with the patient. All questions were answered and informed consent was obtained. Patient identification and proposed procedure were verified by the physician. Mental Status Examination: normal. Airway Examination: normal oropharyngeal airway and neck mobility. Prophylactic Antibiotics: The patient does not require prophylactic antibiotics. Prior Anticoagulants: The patient has taken no anticoagulant or antiplatelet agents except for NSAID medication. ASA Grade Assessment: III - A patient with severe systemic disease. After reviewing the risks and benefits, the patient was deemed in satisfactory condition to undergo the procedure. The anesthesia plan was to use monitored anesthesia care (MAC). Immediately prior to administration of medications, the patient was re-assessed for adequacy to receive sedatives. The heart rate, respiratory rate, oxygen saturations, blood pressure, adequacy of pulmonary ventilation, and response to care were monitored throughout the procedure. The physical status of the patient was re-assessed after the procedure. After obtaining informed consent, the endoscope was passed under direct vision. Throughout the procedure, the patient's blood pressure, pulse, and oxygen saturations were monitored continuously. The pediatric colonoscope was introduced through the mouth, and advanced to the third part of the duodenum. Small bowel enteroscopy was deemed necessary. The upper GI endoscopy was extremely difficult due to the patient's oxygen desaturation, the patient's inability to tolerate anesthesia and the lack of IV access. Successful completion of the procedure was aided by having the specialized IV team obtain IV access and obtaining ultrasound guided IV access. The patient tolerated the procedure fairly well. Scope In: 1:11:32 PM Scope Out: 2:02:29 PM Total Procedure Duration Time 0 hours 50 minutes 57 seconds Findings: The examined esophagus was normal. 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 Coagulation for hemostasis using argon plasma at 0.4 liters/minute and 20 nelson was [Partially successful]. No gross lesions were noted in the entire examined duodenum. Impression: - Normal esophagus. - Gastric antral vascular ectasia with bleeding. Treated with argon plasma coagulation (APC). - No gross lesions in the entire examined duodenum. - No specimens collected. Recommendation: - Discharge patient to home. - Resume previous diet. - Continue present medications. - Port placement Procedure Code(s): --- Professional --- 53105, Small intestinal endoscopy, enteroscopy beyond second portion of duodenum, not including ileum; with control of bleeding (eg, injection, bipolar cautery, unipolar cautery, laser, heater probe, stapler, plasma keying machine operator) CPT copyright 2021 [employer]. All rights reserved. The codes documented in this report are preliminary and upon chief talent officer review may be revised to meet current compliance requirements. Sebastián Molina DO 02/14/2025 2:20:29 PM This report has been signed electronically. Number of Addenda: 0 Note Initiated On: 02/14/2025 12:46 PM
[2025-02-14 14:25] VITALS: BP 142/65; BP 155/76; PULSE 90; RESP 18; O2SAT 94
[2025-02-14 14:30] VITALS: BP 152/79; BP 155/76; PULSE 87; RESP 16; TEMP 37.6; O2SAT 97
[2025-02-14 14:46] VITALS: BP 154/75; BP 155/76; PULSE 92; RESP 16; TEMP 37.2; O2SAT 95
--- NOTE | 2025-02-14 14:49 | PCM.POSTANE2 ---
Anesthesia Postop Eval I Sum Postop Eval Completion status Anesthesia document: Postop Eval 1 completed: Yes Anesthesia Postop Eval I Summary Anesthesia Postop Eval I Summary: Anesthesia Postop Eval I: Assessment Summary Airway patent Yes 02/14/25 14:47 [email or web address] Spontaneous unlabored Yes 02/14/25 14:47 [email or web address] respirations Mental status Awake 02/14/25 14:47 [email or web address] nausea No 02/14/25 14:47 [email or web address] Vomiting No 02/14/25 14:47 [email or web address] Anesthesia Postop Eval I: Fluid Summary Crystalloid volume administer 500 02/14/25 14:47 [email or web address] (ml) Colloids volume administered ( ml) Blood Product volume administered (ml) Total IV fluid infused 500 02/14/25 14:47 [email or web address] Anesthesia Postop Eval I: Summary Notes Anesthesia Complication Yes 02/14/25 14:47 [email or web address] Anesthesia Complication 2 infiltrated IV's 02/14/25 14:47 [email or web address] Comment: , O2 desat d/t GLENN , colonoscopy cx Post-operative progress note Anesthesia: Postop Eval II Evaluation Mental status: Awake Pain Level: 0 nausea: No Vomiting: No Progress Note Post-operative progress note: Patient with multiple IV attempts. 2 IVs infiltrated in the right arm. The IVs were stopped immediately and IV access obtained elsewhere. Patient was recommended to have either a central line or port placement prior to further procedures. Complications Anesthesia Complication: No
--- NOTE | 2025-02-14 14:53 | SUR.PHASEI ---
Addendum entered by Kayleen Welch RN 02/14/25 14:58: patient and understand that a port is requirement for dr. james to do further scopes. Original Note: Patient incontinent of bowel; black. non tarry. patient receives iron IV infusions. Patient cleaned up and brief placed on patient. education given to patient about scopes and reason for aborting colonoscopy. understands.
== END 2025-02-14 15:41 | disposition home or self-care (01) ==
LOC: EN 11:29 → AC 11:30
PROVIDERS: Visit Provider Internal Medicine Gastroenterology
PROC: 0DJD8ZZ Inspection of Lower Intestinal Tract, Via Natural or Artificial Opening Endoscopic (ICD-10-PCS; CPT 45378; principal; 2025-02-14 12:25)
DX: K31.811 Angiodysplasia of stomach and duodenum with bleeding (principal); D61.89 Other specified aplastic anemias and other bone marrow failure syndromes; E11.9 Type 2 diabetes mellitus without complications; Z86.718 Personal history of other venous thrombosis and embolism; Z79.899 Other long term (current) drug therapy; G47.33 Obstructive sleep apnea (adult) (pediatric); E03.9 Hypothyroidism, unspecified; D50.0 Iron deficiency anemia secondary to blood loss (chronic)
CPT/HCPCS: 44366; C1889; J2405

== ENCOUNTER → 2025-02-23 | Outpatient (CLI) | payer MEDICARE, SELFPAY ==
[2025-02-23 18:44] LABS: AST(SGOT) 22 U/L (<=37); Alanine Aminotransfer ALT/SGPT 14 U/L (<=46); Albumin, Serum 3.4 g/dL (3.4-4.8); Alkaline Phosphatase 101 U/L (40-129); Anion Gap 9 (5-15); BUN 17 mg/dL (4-19); BUN/Creat Ratio 19.8 RATIO (10-20); Calcium,Total 8.5 mg/dL (7.6-11.0); Carbon Dioxide 24.7 mmol/L (21.0-32.0); Chloride 108 mmol/L (98-108); Free T3 2.9 pg/mL (2.18-3.98); Globulin 2.5 g/dL (2.2-4.2); Glucose 92 mg/dL (70-99); Magnesium 2.2 mg/dL (1.5-2.2); Potassium 4.5 mmol/L (3.3-5.1)
[2025-02-23 18:51] LABS: Prothrombin Time (Protime)PT. 15.4 SECONDS (11.7-14.9)
[2025-02-23 18:52] LABS: Partial Thromboplast Time 32.1 Seconds (24.1-36.2)
[2025-02-25 09:08] LABS: GGTP 20 IU/L (0-65)
== END | disposition home or self-care (01) ==
LOC: MFPLAB 16:05
PROVIDERS: PCP Family Medicine; Referring Provider Family Medicine; Visit Provider Family Medicine
DX: E03.9 Hypothyroidism, unspecified (principal); E88.09 Other disorders of plasma-protein metabolism, not elsewhere classified; M79.89 Other specified soft tissue disorders
CPT/HCPCS: 36415; 80053; 82977; 83735; 84439; 84443; 84481; 85610; 85730

== ENCOUNTER 2025-03-06 06:01 | Day surgery (SDC) | payer MEDICARE, SELFPAY ==
--- NOTE | 2025-02-28 18:25 | PAT.ANE_ITS ---
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 When Was Last Pacemaker Check QUESTION #4 FULL TEXT: You/Your Family Experience fever (hyperthermia) with Anesthesia Last Oral Intake Last Oral intake: Last Oral Intake NPO since Meds taken in AM with sips of water? Meds patient instructed to take am of surgery PONV PONV - cushion padder: PONV - cushion padder Female No 02/26/25 14:42 HX of Motion Sickness No 02/26/25 14:42 HX of N/V After Surgery No 02/26/25 14:42 Non-Smoker Yes 02/26/25 14:42 Duration of Surgery greater No 02/26/25 14:42 than 60 minutes Number of Risk Factors 1 02/26/25 14:42 PONV Score Low Risk 02/26/25 14:42 Height & Weight Height & Weight: Anesthesia: Height & Weight Height 6 ft 5 in 02/26/25 09:02 Respiratory Assessment Respiratory Assessment - cushion padder: Respiratory Tract Infection Hx - cushion padder Hx Respiratory Tract Infection No 02/26/25 14:42 STOP Sleep Apnea STOP Sleep Apnea - cushion padder: STOP Sleep Apnea - cushion padder Hx Hypertension No 02/26/25 14:42 Hx Sleep Apnea Yes 02/26/25 14:42 CPAP No 02/26/25 14:42 BIPAP No 02/26/25 14:42 Do you snore loudly (louder than talking or can be heard Do you often feel tired/ fatigued/ sleepy during daytime? Has anyone observed you stop breathing during sleep? STOP Results Positive 02/26/25 14:42 QUESTION #5 FULL TEXT : Do you snore loudly (louder than talking or can be heard through closed doors)? 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 Specify any problems Hx of Preganancy in last 3 N/A 02/26/25 14:42 Months Nurse Filling Out Transfusion NBUCHER 02/26/25 14:42 & Questions: Date: 02/26/25 02/26/25 14:42 Time: 14:44 02/26/25 14:42 Patient unable to answer at this time (ie. 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 - cushion padder: /Reproductive Hx- cushion padder Hx Now Gestational Age (in weeks): EDC: Hx Hx Para Hx Section SAB No 02/26/25 14:42 PFSH Medical History GAVE (gastric antral vascular ectasia) MDS (myelodysplastic syndrome) History of echocardiogram MDS (myelodysplastic syndrome), low grade Deep vein thrombosis (DVT) of right upper extremity Pancytopenia Back pain GLENN (obstructive sleep apnea) Hypothyroid Edema Nocturia Muscle spasm Vitamin B12 deficiency Iron deficiency anemia History of diabetes mellitus Chronic anemia Compression fracture of L2 Osteoarthritis of left knee Diabetes Bladder disease Dietary restriction Injury of head and neck History of pain when walking Walker as ambulation aid Foot drop, right Arthritis Chronic pain Non-smoker Home Medications ?Medication ?Instructions ?Recorded ?Last Taken ?Type levothyroxine 75 mcg tablet 75 mcg PO DAILY 01/10/24 0 02/13/25 History furosemide 40 mg tablet 40 mg PO DAILY PRN edema 02/13/25 History Allergy/AdvReac Type Severity Reaction Status Date / Time hydromorphone (From Dilaudid) Allergy Severe Anaphylaxis Verified 02/26/25 14:41 gabapentin AdvReac Intermediate HALLUCINATI Verified 02/26/25 14:41 ONS fentanyl AdvReac Shortness Verified 02/26/25 14:41 of breath Family History Other Multiple sclerosis Surgical History (Updated 02/26/25 @ 14:47 by Raven White) History of esophagogastroduodenoscopy (EGD) Hx of vertebroplasty History of total left knee replacement Hx of left cataract extraction Hx of eye surgery Social History household members: spouse Smoking Status: Never smoker alcohol intake: never substance use type: does not use Audit: Pertinent Findings Pertinent Findings EKG Perinent findings: 05/17/2024. Normal sinus rhythm. Right bundle branch block. Left anterior fascicular block. Cannot rule out inferior infarct, age undetermined. (See echo below). Echo (EF%) pertinent findings: May 18, 2024. EF is 70%. No aortic stenosis noted. Consult pertinent findings: 05/25/2024. Dr. Laird 1. Acute hypoxic and hypercapnic respiratory failure-patient admitted and intubated on 05/18/2024 on ventilator in the hospital. Patient improved with mechanical ventilation, antimicrobials, and fluid optimization with diuretics. Patient extubated 05/24/2024. 2. Pneumonia?treated with antimicrobials. 3. Obstructive sleep apnea February 22, 2025. Dr. Toussaint. 1. Chronic pancytopenia. Chronic. 2. Myelodysplastic syndrome. Chronic. 3. Iron deficiency anemia chronic. 4. Difficult IV access-central venous axis is necessary. Recommendation Anesthesia Recommendation Anesthesia recommendation: OPTIMIZED for anesthesia (Patient is cleared for sedation for this surgery only.)
[2025-03-06] VITALS (9 sets, daily range): BP systolic 126–168; BP diastolic 64–74; PULSE 81–87; RESP 16–20; TEMP 36.5–37.1; O2SAT 95–98; BMI 41.5
--- OUTSIDE RECORDS SUMMARY | 2025-03-06 06:06 | XMS RPT_ITS | CCD ---
Author Organization [facility] Care Team Providers Care District Adviser Name Role Phone No, Physician Primary Care Provider Unavailnnamdi e LINDA DAVALOS Attending Unavailable LINDA DAVALOS Referring Unavailable NO, PHYSICIAN Primary Care Unavailable Black, Helga Unavailable Unavailable None, No PCP Unavailable Unavailable Linda Davalos L Unavailable Unavailable Michelet Avendaño Unavailable Unavailable NO, PHYSICIAN Primary Care Unavailable DIO GALDAMEZ Attending Unavailable NO, PHYSICIAN Primary Care Unavailable HARDY DOMINGUEZ Attending Unavailable NO, PHYSICIAN Primary Care Unavailable SYSTEM, PROVIDER NOT IN Attending Unavaila ble NO, PHYSICIAN Primary Care Unavailable HARDY DOMINGUEZ Attending Unavailable NO, PHYSICIAN Primary Care Unavailable HARDY DOMINGUEZ Admitting Unavailable HARDY DOMINGUEZ Referring Unavailable NO, PHYSICIAN Primary Care Unavailable LINDA DAVALOS Admitting Unavailable FARLINDA MALIK Referring Unavailable HARDY DOMINGUEZ Attending Unavailable No, Physician Primary Care Provider Unavailnnamdi Valle DOEsther Unavailable Unavailable None, No PCP Unavailable Unavailable Farnupur, Linda L Unavailable Unavailable Michelet Avendaño Unavailable Unavailable Esther Valle L Unavailable Unavailable Dew DATA ENTRY TECHNICIAN, Emeterio Unavailable Unavailable Bowling DATA ENTRY TECHNICIAN, Michelet Unavailable Unavailable Luecht PT, Christopher Unavailable Unavailable None, No PCP Unavailable Unavailable Unavailable Unavailable Unavailable Primary Care Provider UnavailAngelic Muller Primary Care Provider Dr. Angelic Monsalve Primary Care Provider [phone] Dr. Yusuf Nunez Attending Provider Dr. Daryl Luz Referring Provider [phone] Angelic Monsalve Primary Care Provider Angelic Monsalve Primary Care Provider [phone] Angelic Monsalve Primary Care Provider Angelic Monsalve Primary Care Provider Angelic Monsalve Primary Care Provider GRICEL SOMMER, DR BETHEA Primary Care Physician MARLON SOMMER, DR GRIMM Attending [facility] jose MONSALVE MD, DR BETHEA Primary Care Unavailable Dr. Angelic Monsalve Primary Care Provider Dr. Amadeo Callejas Attending Provider Dr. Daryl Luz Referring Provider Natty, Dr. Daryl Ramirezit Provider Dr. Daryl Luz Other Provider Dr. Sera Byrd Attending Provider Dr. Sera Byrd Other Provider Dr. Haroldo Ruiz Attending Provider Dr. Haroldo Ruiz Other Provider Darren, Dr. Gatica Attending Provider Darren, Dr. Gatica Other Provider Dr. Angelic Monsalve Primary Care Provider Dr. Amadeo Callejas Attending Provider Dr. Daryl Luz Referring Provider Dr. Daryl Luzit Provider Dr. Daryl Luz Other Provider Dr. Sera Byrd Attending Provider Dr. Sera Byrd Other Provider Dr. Haroldo Ruiz Attending Provider Dr. Haroldo Ruiz Other Provider Darren, Dr. Gatica Attending Provider Darren, Dr. Gatica Other Provider Dr. Angelic Monsalve Primary Care Provider Dr. Daryl Luz Referring Provider NINA KEENE Attending Unavaila ble HAZZI, RAMI Referring Unavailable HAZZI, RAMI Admitting Unavailable GRICEL, ANGELIC KAUR Primary Care Unavailable Lyles, Shirin S Unavailable Unavailable KAPPER 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 CLERK-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, TAI M Admitting Unavaila ble KAPPJARON 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 CLERK-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, TAI M Attending Unavaila antonio MONSALVE MD, DR BETHEA Primary Care Unavailable Gricel SOMMER, Dr. Angelic Rodriguez Primary Care Provider Gricel SOMMER, Dr. Angelic Rodriguez Referring Provider Breana SOMMER, Dr. Godinez Attending Provider Cleo Whittington Attending Provider Breana SOMMER, Dr. Godinez Referring Provider Breana SOMMER, Dr. Godinez Other Provider Constanza CHASER APPRENTICE-C, Debbie Attending Provider Cleo Whittington Referring Provider Tracy MAGUIRE, Dr. Lowery Attending Provider Natty SOMMER, Dr. Brito Attending Provider Natty SOMMER, Dr. Brito Referring Provider Natty SOMMER, Dr. Brito Other Provider [phone] Amado CHASER APPRENTICE-C, Emily Rose Attending Provider Constanza CHASER APPRENTICE-C, Debbie Referring Provider Patricia CHASER APPRENTICE-C, Cheri Attending Provider Patrciia CHASER APPRENTICE-C, Cheri Referring Provider Angelic Monsalve Primary Care Provider RENATO CANALES Attending Unavailable RENATO CANALES Referring Unavailable ANGELIC MONSALVE Primary Care Unavailable Gricel SOMMER, Dr. Angelic Rodriguez Primary Care Provider Gricel SOMMER, Dr. Angelic Rodriguez Referring Provider Breana SOMMER, Dr. Godinez Attending Provider Apodaca CHASER APPRENTICE-C, Debbie Attending Provider Natty SOMMER, Dr. Brito Attending Provider [phone] Natty SOMMER, Dr. Brito Referring Provider [phone] Patricia CHASER APPRENTICE-C, Cheri Attending Provider Patricia CHASER APPRENTICE-C, Cheri Referring Provider Patricia CHASER APPRENTICE-C, Cheri Referring Provider Gricel SOMMER, Dr. Angelic Rodriguez Primary Care Provider Gricel SOMMER, Dr. Angelic Rodriguez Referring Provider Breana SOMMER, Dr. Godinez Attending Provider Patricia CHASER APPRENTICE-C, Cheri Referring Provider Cleo Whittington Attending Provider Gricel SOMMER, Dr. Angelic Rodriguez Primary Care Provider Gricel SOMMER, Dr. Angelic Rodriguez Referring Provider Apodaca CHASER APPRENTICE-C, Debbie Attending Provider Patricia CHASER APPRENTICE-C, Cheri Referring Provider Gricel SOMMER, Dr. Angelic Rodriguez Primary Care Provider Gricel SOMMER, Dr. Angelic Rodriguez Referring Provider Dr. Herbert Toussaint MD Attending Provider Apodaca CHASER APPRENTICE-C, Debbie Attending Provider Patricia CHASER APPRENTICE-C, Cheri Referring Provider Dr. Josephine Hawk DO Attending Provider Care Physician, No Primary Primary Care Provider Unavailable Care Physician, No Primary Referring Provider Un available Dr. Josephine Hawk DO Other Provider Gricel SOMMER, Dr. Angelic Rodriguez Primary Care Provider Jolliff MD, Dr. Angelic S Referring Provider Patricia CHASER APPRENTICE-C, Cheri Attending Provider Patricia CHASER APPRENTICE-C, Cheri Referring Provider Heber SOMMER, Dr. Cochran Attending Provider Dr. Herbert Toussaint MD Referring Provider Tay SOMMER, Damian Primary Care Provider Patricia CHASER APPRENTICE-C, Cheri Attending Provider Patricia CHASER APPRENTICE-C, Cheri Referring Provider Tay SOMMER, Damian Referring Provider Brennon SOMMER, Dr. Harden Attending Provider Brennon SOMMER, Dr. Harden Referring Provider Patricia CHASER APPRENTICE-C, Cheri Attending Provider Patricia CHASER APPRENTICE-C, Cheri Referring Provider Angelic Monsalve S Primary Care Unavailable Amadeo Callejas Attending Unavailable Daryl Luz Referring Unavailable Daryl Luz Attending Unavailable Gricel Angelic S Primary Care Unavailable Gricel Angelic S Primary Care Unavailable Patricia CHASER APPRENTICE, Cheri Referring Unavailable Patricia CHASER APPRENTICE, Cheri Attending Unavailable Damian Cross Primary Care Unavailable Sammie Buck Attending Unavailable Sammie Buck Referring Unavailable Maricel Pinon Admitting Unavailable Graec Allen Attending Unavailable Maricel Pinon Consulting Unavailable Gricel Angelic S Primary Care Unavailable Esther Solomon Consulting Unavailable Abhi Burden Consulting Unavailable Santhosh Romano Consulting Unavailable Douglas Aguilera Consulting Unavailable Ignacio Johnson Consulting Unavailable Michelet Beaulieu Consulting Unavailable Nasim Cueto Consulting Unavailable Juliocesar Linares Consulting Unavailable Jeimy Padilla Consulting Unavailab Hosea Grubbs Consulting Unavailable Negro Greenberg Consulting Unavailable Megan Romero Consulting Unavailable Nash Valdovinos Consulting Unavailable Julio Lawson Consulting Unavailable Elio Diamond Consulting Unavailable Gideon, Flynn Consulting Unavailable DheBhavani alonsoMateo Consulting Unavailable Rashaun Napoles Consulting Unavailable Peter Zuniga Consulting Unavailable Jhony, Juice Consulting Unavailable Deni Matos Consulting Unavailable Grace Allen Consulting Unavailable Jolliff, Angelic S Primary Care Unavailable Constanza DAMON, Debbie Attending Unavailable Jolliff, Angelic S Referring Unavailable IsckarusHerbert Attending Unavailable Jolliff, Angelic S Primary Care Unavailable Jolliff, Angelic S Referring Unavailable Jolliff, Angelic S Primary Care Unavailable Patricia CHASER APPRENTICE, Cheri Attending Unavailable Jolliff, Angelic S Referring Unavailable Isckarus, Herbert Attending Unavailable Jolliff, Angelic S Primary Care Unavailable Jolliff, Angelic S Referring Unavailable Tay, Chalon Primary Care Unavailable Dereck Willett Attending Unavailable Dereck Willett Referring Unavailable Ignacio Johnson Attending Unavailable Ronyky, Haroldo Referring Unavailable TerHaroldo iqbal Consulting Unavailable Haroldo Ruiz Attending Unavailable IsckarusHerbert Attending Unavailable Jolliff, Angelic S Primary Care Unavailable Jolliff, Angelic S Referring Unavailable Cleo Gonzalez Attending Unavailable Jolliff, Angelic S Primary Care Unavailable Jolliff, Angelic S Referring Unavailable Isckarus, Mansour Referring Unavailable Tay, Chalon Primary Care Unavailable Sammie Buck Attending Unavailable Isckarus, Herbert Attending Unavailable Tay, Chalon Referring Unavailable Tay, Chalon Primary Care Unavailable IsckarusHerbert Attending Unavailable Jolliff, Angelic S Primary Care Unavailable Jolliff, Angelic S Referring Unavailable IsckarusHerbert Attending Unavailable Isckarus, Mansour Referring Unavailable Jolliff, Angelic S Primary Care Unavailable Jolliff, Angelic S Primary Care Unavailable Kaleigh Quiroga Attending Unavailable Maricel Pinon Attending Unavailable Maricel Pinon Admitting Unavailable Jolliff, Angelic S Primary Care Unavailable Maricel Pinon Consulting Unavailable Jolliff, Angelic S Primary Care Unavailable Daryl Luz Attending Unavailable Daryl Luz Referring Unavailable Maricel Pinon Attending Unavailable Maricel Pinon Admitting Unavailable Jolliff, Angelic S Primary Care Unavailable Maricel Pinon Consulting Unavailable Grace Allen Consulting Unavailable Esther Solomon Consulting Unavailable Haroldo Ruiz Consulting Unavailable Grace Allen Referring Unavailable Chico Robles Attending Unavailable Leodan Contreras Attending Unavailable Josephine Hawk Attending Unavailable Care Physician, No Primary Primary Care Unava ilable Care Physician, No Primary Referring Unava ilable Josephine Hawk Consulting Unavailable Maricel Pinon Attending Unavailable Isckarus, Mansour Consulting Unavailable Apodaca CHASER APPRENTICE, Debbei Attending Unavailable Jolliff, Angelic S Primary Care Unavailable Isckarus, Mansour Referring Unavailable Natty, Daryl Referring Unavailable Natty, Daryl Consulting Unavailable Jolliff, Angelic S Primary Care Unavailable Emily Fischer Attending Unavailable Isckarus, Mansour Attending Unavailable Jolliff, Angelic S Primary Care Unavailable Jolliff, Angelic S Referring Unavailable Isckarus, Mansour Attending Unavailable Jolliff, Angelic S Primary Care Unavailable Jolliff, Angelic S Referring Unavailable Isckarus, Herbert Attending Unavailable Jolliff, Angelic S Primary Care Unavailable Jolliff, Angelic S Referring Unavailable Isckarus, Mansgumaro Attending Unavailable Jolliff, Angelic S Primary Care Unavailable Jolliff, Angelic S Referring Unavailable Friend, Josephine Attending Unavailable Jolliff, Angelic S Primary Care Unavailable Jolliff, Angelic S Referring Unavailable Isckarus, Mansgumaro Attending Unavailable Jolliff, Angelic S Primary Care Unavailable Jolliff, Angelic S Referring Unavailable Friend, Josephine Attending Unavailable Care Physician, No Primary Referring Unava ilable Care Physician, No Primary Primary Care Unava ilable Cleo Gonzalez Attending Unavailable Jolliff, Angelic S Primary Care Unavailable DanynasovCleo Referring Unavailable Jolliff, Angelic S Primary Care Unavailable Patricia CHASER APPRENTICE, Cheri Attending Unavailable Patricia CHASER APPRENTICE, Cheri Referring Unavailable Jolliff, Angelic S Primary Care Unavailable Apodaca CHASER APPRENTICE, Debbie Attending Unavailable Apodaca CHASER APPRENTICE, Debbie Referring Unavailable Jolliff, Angelic S Primary Care Unavailable Apodaca CHASER APPRENTICE, Debbie Attending Unavailable Jolliff, Angelic S Referring Unavailable AtanasovCleo Attending Unavailable Jolliff, Angelic S Primary Care Unavailable Jolliff, Angelic S Referring Unavailable Allergies Allergy Classification Reported Allergen(s) Allergy Type Date of Onset Reaction(s) Facility Latex (20 sources) natural latex rubber Substance Allergy [facility] [address] Work Phone: (13 sources) natural latex rubber; Translations: [LATEX] Allergy to substance (finding) 9 [facility] (20 sources) Latex Propensity to adverse reactions 9 [facility] (20 sources) gabapentin; Translations: [GABAPENTIN] Drug Allergy 2 Mental Status Change, Other: See Comments [facility] (14 sources) HYDROmorphone; Translations: [HYDROMORPHONE] Drug Allergy 4 Anaphylaxis [facility] (4 sources) fentaNYL Drug Allergy 5 Shortness of breath [facility] (1 source) fentaNYL Drug Allergy 5 [facility] (1 source) gabapentin Drug Allergy 5 [facility] (1 source) natural latex rubber Drug allergy (disorder) 4 [facility] Medications Current Medications Medication Drug Class(es) Dates Sig (Normalized) Sig (Original) acetaminophen 1000 mg oral tablet (16 sources) Start: 06-13-2024 Tylenol Dose : 1,000 mg = 2 tab(s), Oral, TID, 0 Refill(s) Start Date: 06/13/24 Status: Ordered Start: 09-02-2023 End: 01-10-2024 take 2 tablets by mouth every eight hours Acetaminophen 500 mg Tablet Discontinued 1000 mg PO EVERY 8 HOURS 0 0 September 02, 2023 1:00am January 10, 2024 9:48am Start: 09-02-2023 take 1000 mg by mout h every eight hours Acetaminophen Active 1000 MG PO EVERY 8 HOURS 0 September 02, 2023 1:00am take 1 tablet by marlena th every eight hours as needed acetaminophen (TYLENOL EXTRA STRENGTH) 500 mg tablet Take 500 mg by mouth every 8 hours as needed. Active apixaban 5 mg oral tablet (1 source) Factor Xa Inhibitor Start: 06-13-2024 apixaban 5 mg oral tablet Dose : 5 mg = 1 tab(s), Oral, BID, # 60 tab(s), 0 Refill(s), Pharmacy: [id number], 195.6, cm, 05/31/24 12:43:00 EST, Height, 158.2, kg, 06/02/24 5:02:00 EST, Dosing Weight Start Date: 06/13/24 Status: Ordered atorvastatin 40 mg oral tablet (20 sources) HMG-CoA Reductase Inhibitor Start: 06-14-2024 atorvastatin 40 mg oral tablet Dose : 40 mg = 1 tab(s), Oral, qHS, # 30 tab(s), 0 Refill(s), Pharmacy: [id number], 195.6, cm, 05/31/24 12:43:00 EST, Height, kg, 06/02/24 5:02:00 EST, Dosing Weight Start Date: 06/14/24 Status: Ordered Start: 05-30-2024 End: 06-21-2024 Atorvastatin 80 mg Tablet Discontinued 40 mg PO AT BEDTIME 0 0 May 30, 2024 1:00am June 21, 2024 9:54am Start: 11-07-2019 take 1 tablet by marlena th once daily at bedtime atorvastatin (LIPITOR) 20 mg tablet Take 1 tablet by mouth daily at bedtime. 30 Each 0 11/07/2019 Active Comment on above: Take 1 tablet by marlena th daily at bedtime. benoxinate hydrochloride 4 mg/ml / fluorescein sodium 2.5 mg/ml ophthalmic solution (7 sources) Diagnostic Dye Start: 12-24-2022 End: 12-25-2022 fluorescein-benoxi adela 0.25-0.4 % 1 Drop (FLURESS) Start: 11-12-2022 End: 11-12-2022 fluorescein-benoxinate 0.25- 0.4 % 1 Drop (FLURESS) Start: 08-18-2022 End: 08-19-2022 fluorescein-benoxinate 0.25- 0.4 % 1 Drop (FLURESS) Start: 07-30-2022 End: 07-30-2022 fluorescein-benoxinate 0.25- 0.4 % 1 Drop (FLURESS) Start: 03-25-2022 End: 03-26-2022 fluorescein-benoxinate 0.25- 0.4 % 1 Drop (FLURESS) Start: 12-09-2021 End: 12-10-2021 fluorescein-benoxinate 0.25- 0.4 % 1 Drop (FLURESS) Start: 09-29-2021 End: 09-30-2021 fluorescein-benoxinate 0.25- 0.4 % 1 Drop (FLURESS) FeroSul 325 mg (65 mg elemental iron) oral tablet (1 source) Start: 05-24-2023 FeroSul 325 mg (65 mg elemental iron) oral tablet Dose : 325 mg = 1 tab(s), Oral, TID, # 90 tab(s), 0 Refill(s) Start Date: 05/24/23 Status: Ordered fluorouracil 50 mg/ml topical cream (4 sources) Nucleoside Metabolic Inhibitor Start: 05-24-2023 fluorouracil 5% topical cream Apply 1 kan, Topical, BID, 0 Refill(s) Start Date: 05/24/23 Status: Ordered Start: 05-11-2023 Fluorouracil ( EFUDEX) 5 % cream Indications: Actinic keratoses Apply a thin layer to spots on right cheek and right neck once a day x4 weeks. 40 g 0 05/11/2023 Active Comment on above: Apply a thin layer t o spots on right cheek and right neck once a day x4 weeks. furosemide 40 mg oral tablet (20 sources) Loop Diuretic Start: 11-02-2024 take 1 tablet by mouth once daily as needed for edema Furosemide 40 mg tablet Active 40 mg PO DAILY as needed for edema November 02, 2024 12:00am Start: 05-08-2024 End: 06-22-2024 take 2 tablets by mouth once daily Furosemide (Lasix) 20 mg tablet Discontinued 40 mg PO DAILY May 08, 2024 4:03pm June 22, 2024 10:13am Diuretic Start: 03-09-2024 End: 05-08-2024 take 1 tablet by mouth once daily Furosemide (Lasix) 20 mg tablet Discontinued 20 mg PO DAILY March 09, 2024 12:00am May 08, 2024 4:04pm Start: 11-18-2023 End: 01-10-2024 take 1 tablet by mouth twice daily Furosemide 40 mg tablet Discontinued 40 mg PO TWICE A DAY November 18, 2023 12:00am January 10, 2024 9:48am ibuprofen 200 mg oral tablet (20 sources) Nonsteroidal Anti-inflammatory Drug Start: 01-14-2022 take 400 mg by mouth every six hours Ibuprofen Active 400 MG PO EVERY 6 HOURS January 14, 2022 12:00am take 1 tablet by marlena th every six hours as needed ibuprofen (MOTRIN) 600 mg tablet Take 60 0 mg by mouth every 6 hours as needed. 0 Active Ibuprofen 600 MG Oral Tablet Quantity: 0 Refills: 0 Ordered: 05-Jun-2019 DO Active Comment on above: Take 600 mg by mouth every 6 hours as needed. levothyroxine sodium 0.05 mg oral tablet (20 sources) l-Thyroxine Start: 06-01-2024 levothyroxine 50 mcg (0.05 mg) oral tablet Dose : 50 mcg = 1 tab(s), Oral, qDayAC, 0 Refill(s) Start Date: 06/01/24 Status: Ordered Start: 12-28-2023 End: 01-10-2024 take 1 tablet by mouth once daily Levothyroxine 75 mcg tablet Active 75 ug PO DAILY January 10, 2024 9:46am Start: 12-28-2023 End: 12-28-2023 take 1 tablet by mouth once daily Levothyroxine 50 mcg tablet Discontinued 50 ug PO DAILY December 28, 2023 12:00am December 28, 2023 9:40am take 1 capsule by mo [facility] once daily before breakfast levothyroxine 75 mcg cap Take 75 mcg by mouth daily before breakfast. Active metFORMIN hydrochloride 500 mg oral tablet (20 sources) Biguanide Start: 09-01-2022 take 1000 mg by mouth at bedtime Metformin Active 1000 MG PO AT BEDTIME September 01, 2022 1:00am Start: 11-07-2019 [facility] metFORMIN (GLUCOPHAGE) 500 mg tablet Take 1 tablet by mouth twice daily with meals. 60 tablet 0 11/07/2019 Active Comment on above: Take 1 tablet by marlena twice daily with meals. moxifloxacin 5 mg/ml ophthalmic solution (3 sources) Quinolone Antimicrobial Start: 03-24-20 End: 04-07-20 take 1 drop(s) into the eye(s) four times daily, then take 1 drop(s) into the eye(s) three times daily moxifloxacin (VIGAMOX) 0.5 % ophthalmic solution Use 1 Drop in the left eye four times daily for 7 days, THEN 1 Drop three times daily for 7 days. 3 mL 0 03/24/2022 04/07/2022 Active Comment on above: Use 1 Drop in the le ft eye four times daily for 7 days, THEN 1 Drop three times daily for 7 days. phenylephrine hydrochloride 25 mg/ml ophthalmic solution (11 sources) alpha-1 Adrenergic Agonist Start: 10-13-19 End: 10-14-19 PHENYLephrine 2.5 % 1 drop (AK-DILATE, JADYN-SYNEPHRINE) Start: 10-12-2024 End: 10-13-2024 1 drop, BOTH EYES, DIRECT ED, Starting on Wed10/12/24 at 1430, Until Wed10/13/24 at 022, Administer for dilation PROTECT FROM LIGHT Start: 12-24-2022 End: 12-25-2022 PHENYLephrine 2.5 % 1 Drop ( AK-DILATE, JADYN-SYNEPHRINE) Start: 11-12-2022 End: 11-12-2022 PHENYLephrine 2.5 % 1 Drop ( AK-DILATE, JADYN-SYNEPHRINE) Start: 09-24-2022 End: 09-24-2022 PHENYLephrine 2.5 % 1 Drop ( AK-DILATE, JADYN-SYNEPHRINE) Start: 09-02-2022 End: 09-03-2022 PHENYLephrine 2.5 % 1 Drop ( AK-DILATE, JADYN-SYNEPHRINE) Start: 08-18-2022 End: 08-19-2022 PHENYLephrine 2.5 % 1 Drop ( AK-DILATE, JADYN-SYNEPHRINE) Start: 07-30-2022 End: 07-30-2022 PHENYLephrine 2.5 % 1 Drop ( AK-DILATE, JADYN-SYNEPHRINE) Start: 06-24-2022 End: 06-24-2022 PHENYLephrine 2.5 % 1 Drop ( AK-DILATE, JADYN-SYNEPHRINE) Start: 12-09-2021 End: 12-10-2021 PHENYLephrine 2.5 % 1 Drop ( AK-DILATE, JADYN-SYNEPHRINE) Start: 09-29-2021 End: 09-30-2021 PHENYLephrine 2.5 % 1 Drop ( AK-DILATE, JADYN-SYNEPHRINE) proparacaine hydrochloride 5 mg/ml ophthalmic solution (12 sources) Local Anesthetic Start: 10-12-2024 End: 10-13-2024 proparacaine 0.5 % 1 drop (ALCAINE) Start: 10-12-2024 End: 10-13-2024 1 drop, BOTH EYES, DIRECT ED, Starting on Wed10/12/24 at 1430, Until Wed10/13/24 at 022, Administer for pneumo tonometry, tonopen tonometry, or pachymetry. In the event of a proparacaine shortage, administer tetracaine 0.5% ophthalmic drops 1 drop in the left eye as directed for pneumo tonometry, tonopen tonometry, or pachymetry Start: 12-24-2022 End: 12-25-2022 proparacaine 0.5 % 1 Drop (A LCAINE) Start: 11-12-2022 End: 11-12-2022 proparacaine 0.5 % 1 Drop (A LCAINE) Start: 09-24-2022 End: 09-24-2022 proparacaine 0.5 % 1 Drop (A LCAINE) Start: 09-02-2022 End: 09-03-2022 proparacaine 0.5 % 1 Drop (A LCAINE) Start: 08-18-2022 End: 08-19-2022 proparacaine 0.5 % 1 Drop (A LCAINE) Start: 07-30-2022 End: 07-30-2022 proparacaine 0.5 % 1 Drop (A LCAINE) Start: 06-24-2022 End: 06-24-2022 proparacaine 0.5 % 1 Drop (A LCAINE) Start: 03-25-2022 End: 03-26-2022 proparacaine 0.5 % 1 Drop (A LCAINE) Start: 12-09-2021 End: 12-10-2021 proparacaine 0.5 % 1 Drop (A LCAINE) Start: 09-29-2021 End: 09-30-2021 proparacaine 0.5 % 1 Drop (A LCAINE) tamsulosin hydrochloride 0.4 mg oral capsule (12 sources) alpha-Adrenergic Nadya Start: 09-01-2022 take 1 capsule by mouth at bedtime Tamsulosin (Flomax) 0.4 mg Capsule Active 0.4 MG PO AT BEDTIME September 01, 2022 1:00am Start: 08-18-2022 tamsulosin (FL OMAX) 0.4 mg tropicamide 10 mg/ml ophthalmic solution (11 sources) Anticholinergic Start: 10-12-2024 End: 10-13-2024 tropicamide 1 % 1 drop (MYDRIACYL) Start: 10-12-2024 End: 10-13-2024 1 drop, BOTH EYES, DIRECT ED, Starting on Wed10/12/24 at 1430, Until Wed10/13/24 at 0229, Administer for dilation Start: 12-24-2022 End: 12-25-2022 tropicamide 1 % 1 Drop (MYDR IACYL) Start: 11-12-2022 End: 11-12-2022 tropicamide 1 % 1 Drop (MYDR IACYL) Start: 09-24-2022 End: 09-24-2022 tropicamide 1 % 1 Drop (MYDR IACYL) Start: 09-02-2022 End: 09-03-2022 tropicamide 1 % 1 Drop (MYDR IACYL) Start: 08-18-2022 End: 08-19-2022 tropicamide 1 % 1 Drop (MYDR IACYL) Start: 07-30-2022 End: 07-30-2022 tropicamide 1 % 1 Drop (MYDR IACYL) Start: 06-24-2022 End: 06-24-2022 tropicamide 1 % 1 Drop (MYDR IACYL) Start: 12-09-2021 End: 12-10-2021 tropicamide 1 % 1 Drop (MYDR IACYL) Start: 09-29-2021 End: 09-30-2021 tropicamide 1 % 1 Drop (MYDR IACYL) vitamin b12 0.5 mg oral tablet (20 sources) Vitamin B12 Start: 05-31-2024 cyanocobalamin 500 mcg oral tablet Dose : 1,000 mcg = 2 tab(s), Oral, qDay, 0 Refill(s) Start Date: 05/31/24 Status: Ordered Start: 11-07-2019 take 1 tablet by marlena th once daily cyanocobalamin (VITAMIN B-12) 1,000 mcg tab Take 1 tablet by mouth once daily. 30 Each 11/07/2019 Active Comment on above: Take 1 tablet by marlena th once daily. Completed/Discontinued Medications Medication Drug Class(es) Dates Sig (Normalized) Sig (Original) amoxicillin 875 mg / clavulanate 125 mg oral tablet (1 source) Penicillin-class Antibacterial Start: 06-16-2019 Amoxicillin-Pot Clavulanate 875-125 MG Oral Tablet Quantity: 20 Refills: 0 Start : 16-Jun-2019 Active aspirin 81 mg chewable tablet (20 sources) Platelet Aggregation Inhibitor, Nonsteroidal Anti-inflammatory Drug Start: 09-02-2023 End: 11-18-2023 take 1 tablet by mouth twice daily at mealtime Aspirin 81 mg Tablet,Chewable Discontinued 81 mg PO TWICE DAILY WITH MEALS 0 0 September 02, 2023 1:00am November 18, 2023 11:35am Start: 11-07-2019 take 1 tablet by marlena once daily aspirin 81 mg chewable tablet Take 1 tablet by mouth once daily. 30 tablet 0 11/07/2019 Active Comment on above: Take 1 tablet by marlena once daily. atropine sulfate 10 mg/ml ophthalmic solution (20 sources) Anticholinergic, Cholinergic Muscarinic Antagonist Start: 07-16-2021 take 1 drop(s) into the eye(s) twice daily atropine 1 % ophthalmic solution Use 1 Drop in the left eye twice daily. 15 mL 0 07/16/2021 Active Start: 07-16-2021 take 1 drop(s) into the eye(s) twice daily atropine 1 % ophthalmic solution Use 1 Drop in the left eye twice daily. 15 mL 0 07/16/2021 Active Comment on above: Use 1 Drop in the le ft eye twice daily. calcium carbonate 500 mg chewable tablet (15 sources) Start: 09-02-2023 End: 01-10-2024 take 1 tablet by mouth every six hours as needed Calcium Carbonate 200 mg calcium (500 mg) Tablet,Chewable Discontinued 1000 mg PO EVERY 6 HOURS NEEDED as needed for DYSPEPSIA 0 0 September 02, 2023 1:00am January 10, 2024 9:48am take 500 mg by mouth every twelve hours as needed calcium carbonate (TUMS) 500 mg chew Bruce e 500 mg by mouth two times a day as needed (dyspepsia). Active cholecalciferol 0.025 mg oral capsule (20 sources) Vitamin D Start: 08-18-2023 End: 11-18-2023 take 1 capsule by mouth once daily Cholecalciferol (Vitamin D3) (Vitamin D3) 25 mcg (1,000 unit) capsule Discontinued 25 ug PO DAILY August 18, 2023 1:00am November 18, 2023 11:35am SUPPLEMENT Start: 11-07-2019 End: 12-07-2019 take 1 capsule by mouth once daily Cholecalciferol, Vitamin D3, (VITAMIN D) 25 mcg (1,000 unit) cap Take 1 capsule by mouth once daily. 30 Each 0 11/07/2019 Active Comment on above: Take 1 capsule by mo [facility] once daily. ciprofloxacin 3 mg/ml ophthalmic solution (11 sources) Quinolone Antimicrobial Start: End: take 1 drop(s) into the eye(s) four times daily ciprofloxacin HCl (CILOXAN) 0.3 % ophthalmic solution Use 1 Drop in the left eye four times daily. 10 mL 1 07/16/2021 06/02/2022 Discontinued Comment on above: Use 1 Drop in the le ft eye four times daily. clobetasol propionate 0.5 mg/ml topical cream (1 source) Corticosteroid Start: clobetasol (TEMOVATE) 0.05 % cream Indications: Nummular dermatitis Apply twice a day to eczema on lower back until resolved. 30 g 0 06/24/2023 Active Comment on above: Apply twice a day to eczema on lower back until resolved. cyclobenzaprine hydrochloride 10 mg oral tablet (20 sources) Muscle Relaxant Start: take 1 tablet by mouth three times daily Cyclobenzaprine HCl - 10 MG Oral Tablet TAKE 1 TABLET 3 TIMES DAILY. Quantity: 30 Refills: 2 Ordered: 29-Oct-2020 Esther Valle DO Start : 29-Oct-2020 Active dexamethasone 0.001 mg/mg / neomycin 0.0035 mg/mg / polymyxin b 10 unt/mg ophthalmic ointment (20 sources) Aminoglycoside Antibacterial, Polymyxin-class Antibacterial, Corticosteroid Start: neomycin/polymyxin b/dexametha(MAXITROL 3.5 MG/G-10,000 UNIT/G-0.1 % EYE OINTMENT) Use 1 application in the left eye four times daily. Apply 1/2 inch ribbon per application 0 07/16/2021 Active Start: 07-16-2021 neomycin/polym yxin b/dexametha(MAXITROL 3.5 MG/G-10,000 UNIT/G-0.1 % EYE OINTMENT) Use 1 application in the left eye four times daily. Apply 1/2 inch ribbon per application 0 07/16/2021 Active Comment on above: Use 1 application in the left eye four times daily. Apply 1/2 inch ribbon per application docusate sodium 50 mg / sennosides, chcf 8.6 mg oral tablet (20 sources) Start: 05-30-2024 End: 06-22-2024 Sennosides-Docusate Sodium (Stimulant Laxative Plus) 8.6-50 mg Tablet Discontinued 2 {tbl} PO TWICE A DAY 0 0 May 30, 2024 1:00am June 22, 2024 10:13am Hold for diarrhea Start: 09-02-2023 End: 11-18-2023 Sennosides-Docusate Sodium ( Stool Softener-Stimulant Laxat) 8.6-50 mg Tablet Discontinued 2 {tbl} PO TWICE A DAY 28 7 0 September 02, 2023 1:00am November 18, 2023 11:36am doxycycline monohydrate 100 mg oral capsule (14 sources) Tetracycline-class Drug Start: 09-02-2023 End: 11-18-2023 take 1 capsule by mouth twice daily Doxycycline Monohydrate 100 mg Capsule Discontinued 100 mg PO TWICE A DAY 14 7 0 September 02, 2023 1:00am November 18, 2023 11:35am famotidine 20 mg oral tablet (14 sources) Histamine-2 Receptor Antagonist Start: 09-02-2023 End: 11-18-2023 take 1 tablet by mouth once daily Famotidine 20 mg Tablet Discontinued 20 mg PO DAILY 30 30 0 September 02, 2023 1:00am November 18, 2023 11:36am ferrous fumarate 324 mg / folic acid 1 mg oral tablet (11 sources) Start: 11-15-2023 End: 05-08-2024 take 1 tablet by mouth once daily Ferrous Fumarate-Folic Acid (Hematinic/Folic Acid) 324 mg (106 mg iron)-1 mg tablet Discontinued 1 {tbl} PO DAILY December 28, 2023 12:00am May 08, 2024 4:04pm ferrous sulfate (20 sources) Start: 06-16-2023 End: 12-28-2023 take 1 tablet by mouth once daily Ferrous Sulfate (Feosol) 325 mg (65 mg iron) tablet Discontinued 650 mg PO DAILY June 16, 2023 1:00am December 28, 2023 9:40am ANEMIA Start: 06-16-2023 End: 12-28-2023 take 1 tablet by mouth once daily Ferrous Sulfate (Feosol) 325 mg (65 mg iron) tablet Discontinued 650 mg PO DAILY June 16, 2023 1:00am December 28, 2023 9:40am Start: 06-16-2023 take 1 tablet by marlena once daily Ferrous Sulfate (Feosol) 325 mg (65 mg iron) tablet Active 650 MG PO DAILY June 16, 2023 1:00am Start: 06-16-2023 take 1 tablet by marlena once daily Ferrous Sulfate (Feosol) 325 mg (65 mg iron) tablet Active 650 MG PO DAILY June 16, 2023 1:00am Start: 09-09-2022 take 1 tablet by marlena once daily ferrous sulfate 325 mg (65 mg iron) EC tablet Take 1 tablet by mouth once daily. 0 09/09/2022 Active Comment on above: Take 1 tablet by marlena once daily. folic acid 1 mg oral tablet (15 sources) Start: 08-18-19 End: 11-18-19 take 1 tablet by mouth once daily Folic Acid 1 mg tablet Discontinued 1 mg PO DAILY August 18, 2023 1:00am November 18, 2023 11:36am SUPPLEMENT gabapentin 300 mg oral capsule (17 sources) Anti-epileptic Agent Start: 11-07-19 take 1 capsule by mouth every twelve hours gabapentin (NEURONTIN) 300 mg capsule Take 1 capsule by mouth every 12 hours for 30 days. 60 capsule 0 11/07/2019 Active Comment on above: Take 1 capsule by [facility] every 12 hours for 30 days. 12 hr guaiFENesin 600 mg extended release oral tablet (20 sources) Start: 04-25-20 19 take 2 tablets by mouth twice daily guaiFENesin (MUCINEX) 600 mg 12 hr tablet Indications: Viral URI Take 2 tablets by mouth twice daily. 30 tablet 0 04/25/2019 Active Comment on above: Take 2 tablets by [facility] twice daily. Hematinic with Folic Acid 324 mg (106 mg elemental iron)-1 mg oral tablet (1 source) Start: 06-03-20 take 1 tablet by mouth once daily Hematinic with Folic Acid 324 mg (106 mg elemental iron)-1 mg oral tablet Dose = 1 tab(s), Oral, qDay, TAKE 1 TABLET BY MOUTH DAILY Start Date: 06/03/24 Status: Ordered ketorolac tromethamine 5 mg/ml ophthalmic solution (20 sources) Nonsteroidal Anti-inflammatory Drug, Cyclooxygenase Inhibitor Start: 12-08-19 End: 08-04-20 25 Ketorolac 0.5 % drops Discontinued 1 NMA OPHTHALMIC 4 TIMES DAILY December 07, 2024 12:00am February 12, 2025 8:52am Start: 10-12-2024 take 1 drop(s) into the eye(s) four times daily keTORolac (ACULAR) 0.5 % ophthalmic solution Use 1 drop in the left eye four times daily. 10 mL 3 10/12/2024 Active Start: 09-24-2022 take 1 drop(s) into the eye(s) four times daily keTORolac (ACULAR) 0.5 % ophthalmic solution Use 1 Drop in the left eye four times daily. 10 mL 3 09/24/2022 Active Start: 05-06-2022 End: 09-24-2022 take 1 drop(s) into the eye(s) four times daily keTORolac (ACULAR) 0.5 % ophthalmic solution Use 1 Drop in the left eye four times daily. 10 mL 3 09/24/2022 Active Start: 03-24-2022 End: 04-07-2022 take 1 drop(s) into the eye(s) four times daily, then take 1 drop(s) into the eye(s) three times daily keTORolac (ACULAR) 0.5 % ophthalmic solution Use 1 Drop in the left eye four times daily for 7 days, THEN 1 Drop three times daily for 7 days. 5 mL 0 03/24/2022 04/07/2022 Active Comment on above: Use 1 Drop in the le ft eye four times daily for 7 days, THEN 1 Drop three times daily for 7 days. Use 1 Drop in the le ft eye four times daily. lisinopril 10 mg oral tablet (17 sources) Angiotensin Converting Enzyme Inhibitor Start: 11-07-19 20 take 1 tablet by mouth once daily lisinopril (ZESTRIL, PRINIVIL) 10 mg tablet Take 1 tablet by mouth once daily. 30 tablet 0 11/07/2019 Active Comment on above: Take 1 tablet by marlena once daily. mecobalamin 1 mg chewable tablet (10 sources) Start: 01-10-20 End: 06-22-20 24 take 1 tablet by mouth once daily Mecobalamin (Vitamin B12) 1,000 mcg tablet,chewable Discontinued 1000 ug PO DAILY January 10, 2024 12:00am June 22, 2024 10:13am multivitamin methocarbamol 500 mg oral tablet (20 sources) Muscle Relaxant Start: 10-29-19 take 1 tablet by mouth four times daily as needed for muscle spasms Methocarbamol 500 MG Oral Tablet TAKE 1 TABLET 4 TIMES DAILY PRN MUSCLE SPASM Quantity: 30 Refills: 2 Ordered: 28-Oct-2020 Esther Valle DO Start : 28-Oct-2020 Active 24 hr metoprolol succinate 25 mg extended release oral tablet (13 sources) beta-Adrenergic Nadya Start: 06-13-20 End: 06-14-20 take 0.5 tablet by mouth in the morning metoprolol succinate 25 mg oral TABLET extended release Start: 06/14/24 8:00:00 AM EST, Dose = 12.5 mg, = 0.5 tab(s), Oral, Hold if SBP (mmHg) Start Date: 06/14/24 Stop Date: 06/14/24 Status: Completed Start: 06-13-2024 metoprolol suc cinate 25 mg oral TABLET extended release Dose : 12.5 mg = 0.5 tab(s), Oral, BID, Do not crush or chew (controlled release), # 30 tab(s), 0 Refill(s), Pharmacy: [id number], 195.6, cm, 05/31/24 12:43:00 EST, Height, kg, 06/02/24 5:02:00 EST, Dosing Weight Start Date: 06/13/24 Status: Ordered Start: 05-30-2024 End: 06-21-2024 Metoprolol Tartrate 25 mg Ta blet Discontinued 12.5 mg PO TWICE A DAY 0 0 May 30, 2024 1:00am June 21, 2024 9:54am mupirocin 0.02 mg/mg topical ointment (1 source) RNA Synthetase Inhibitor Antibacterial Start: 07-17-2018 Mupirocin 2 % External Ointment Apply 1 application to affected area three times daily. Quantity: 22 Refills: 0 Start : 17-Jul-2018 Active oxyCODONE hydrochloride 5 mg oral tablet (14 sources) Opioid Agonist Start: 09-02-2023 End: 11-18-2023 take 5-10 mg by mouth every four hours as needed for pain Oxycodone 5 mg Tablet Discontinued 5 - 10 mg PO EVERY 4 HOURS NEEDED as needed for Pain Score 4-10 42 5 0 September 02, 2023 November 18, 2023 11:36am Status post total left knee replacement Other acute postprocedural pain Presence of left artificial knee joint Other acute postprocedural pain pantoprazole 40 mg delayed release oral tablet (11 sources) Proton Pump Inhibitor Start: 05-30-2024 End: 06-22-2024 take 1 tablet by mouth twice daily Pantoprazole 40 mg Tablet,Delayed Release (Dr/Ec) Discontinued 40 mg PO TWICE A DAY 0 0 May 30, 2024 1:00am June 22, 2024 10:13am polyethylene glycol 3350 04552 mg powder for oral solution (14 sources) Osmotic Laxative Start: 09-02-2023 End: 12-28-2023 take 17 g by mouth twice daily Polyethylene Glycol 3350 17 gram Powder In Packet Discontinued 17 g PO TWICE A DAY 0 0 September 02, 2023 1:00am December 28, 2023 6:53am microencapsulated potassium chloride 20 meq extended release oral tablet (11 sources) Start: 12-31-2023 End: 01-10-2024 take 1 tablet by mouth once daily Potassium Chloride 20 mEq Tablet,Er Particles/Crystals Discontinued 20 meq PO DAILY 0 0 December 31, 2023 12:00am January 10, 2024 9:48am prednisoLONE acetate 10 mg/ml ophthalmic suspension (20 sources) Corticosteroid Start: 09-24-2022 prednisoLONE acetate (PRED FORTE) 1 % ophthalmic suspension Use 1 Drop in the left eye four times daily. 10 mL 3 09/24/2022 Active Start: 07-16-2021 End: 09-24-2022 prednisoLONE acetate (PRED F ORTE) 1 % ophthalmic suspension Use 1 Drop in the left eye four times daily. 10 mL 3 09/24/2022 Active Comment on above: Use 1 Drop in the le ft eye four times daily. Use 1 Drop in the le ft eye four times daily for 7 days, THEN 1 Drop three times daily for 7 days, THEN 1 Drop twice daily for 7 days, THEN 1 Drop once daily for 7 days. Sod Sulf-Pot Chloride-Mag Sulf (6 sources) Start: 12-26-2024 End: 02-26-2025 take 1.479 tablets by mouth once Sod Sulf-Pot Chloride-Mag Sulf (Sutab) 1.479-0.188- 0.225 gram tablet Discontinued 0 PO per package directions December 26, 2024 12:00am February 26, 2025 2:42pm PO PER PKG DIR Start: 12-26-2024 take 1.479 tablets b y mouth once Sod Sulf-Pot Chloride-Mag Sulf (Sutab) 1.479-0.188- 0.225 gram tablet Active 0 PO per package directions December 26, 2024 12:00am PO PER PKG DIR Start: 12-26-2024 take 1.479 tablets b y mouth once Sod Sulf-Pot Chloride-Mag Sulf (Sutab) 1.479-0.188- 0.225 gram tablet Active 0 PO per package directions December 26, 2024 12:00am PO PER PKG DIR solifenacin succinate 5 mg oral tablet (8 sources) Cholinergic Muscarinic Antagonist Start: 11-09-2024 End: 12-21-2024 take 1 tablet by mouth once daily Solifenacin (Vesicare) 5 mg tablet Discontinued 5 mg PO DAILY November 09, 2024 12:00am December 21, 2024 11:01am Problems Active Problems Problem Classification Problem Date Documented Da te Episodic/Chronic Acquired foot deformities (20 sources) Foot-drop; Translations: [Foot drop, unspecified foot] Onset: 2 07-15-2021 Episodic Allergic reactions (1 source) Nummular eczema; Translations: [Nummular dermatitis] 06-24-2023 Episodic Cataract (16 sources) Bilateral senile combined form cataracts of eyes; Translations: [Combined forms of age-related cataract, bilateral] Onset: 2 Resolved: 2 Chronic Complications of surgical procedures or medical care (2 sources) Chorioretinal scars following retinal detachment surgery; Translations: [Chorioretinal scars after surgery for detachment, left eye] Episodic Congestive heart failure; nonhypertensive (12 sources) Diastolic heart failure; Translations: [Unspecified diastolic (congestive) heart failure] Onset: 4 Chronic Deficiency and other anemia (20 sources) Pancytopenia; Translations: [Other pancytopenia] Onset: 4 Chronic Deficiency and other anemia (2 sources) Other specified aplastic anemias and other bone marrow failure syndromes; Translations: [Other specified aplastic anemias and other bone marrow failure syndromes] Onset: 5 Chronic Deficiency and other anemia (2 sources) Iron deficiency anemia secondary to blood loss (chronic); Translations: [Iron deficiency anemia secondary to blood loss (chronic)] Onset: 5 Chronic Deficiency and other anemia (2 sources) Other pancytopenia; Translations: [Other pancytopenia] Onset: 4 Chronic Deficiency and other anemia (20 sources) Anemia; Translations: [Anemia, unspecified] Onset: 4 Episodic Comment on above: Myelodysplastic synd dick Deficiency and other anemia (20 sources) Iron deficiency anemia; Translations: [Iron deficiency anemia, unspecified] Onset: 4 08-24-2024 Episodic Deficiency and other anemia (10 sources) Chronic anemia; Translations: [Anemia, unspecified] 01-08-2024 Episodic Deficiency and other anemia (1 source) Anemia, unspecified; Translations: [Anemia, unspecified] Onset: 5 Episodic Deficiency and other anemia (2 sources) Iron deficiency anemia, unspecified; Translations: [Iron deficiency anemia, unspecified] Onset: 5 Episodic Deficiency and other anemia (20 sources) Deficiency and other anemia; Translations: [Low grade myelodysplastic syndrome] Diabetes mellitus with complications (1 source) Type 2 diabetes mellitus with moderate nonproliferative diabetic retinopathy without macular edema, bilateral; Translations: [Diabetes with ophthalmic manifestations, type II or unspecified type, not stated as uncontrolled] 10-12-2024 Chronic Diabetes mellitus without complication (20 sources) Type 2 diabetes mellitus; Translations: [Type 2 diabetes mellitus without complications] Onset: 0 11-07-2019 Chronic E Codes: Fall (11 sources) Fall; Translations: [Unspecified fall, initial encounter] Onset: 0 Resolved: 0 12-28-2023 Episodic Essential hypertension (20 sources) Essential hypertension; Translations: [Essential (primary) hypertension] Onset: 0 11-07-2019 Chronic Genitourinary symptoms and ill-defined conditions (11 sources) Nocturia; Translations: [Nocturia] Onset: 4 Resolved: 4 01-10-2024 Episodic Inflammation; infection of eye (except that caused by tuberculosis or sexually transmitteddisease) (2 sources) Iritis; Translations: [Recurrent acute iridocyclitis, left eye] Episodic Joint disorders and dislocations; trauma-related (20 sources) Loose body in knee; Translations: [Loose body in knee] Chronic Joint disorders and dislocations; trauma-related (20 sources) Deformity of patella; Translations: [Acquired deformity of other specified site] Episodic Malaise and fatigue (13 sources) Asthenia; Translations: [Weakness] Onset: 4 Episodic Neoplasms of unspecified nature or uncertain behavior (20 sources) Myelodysplastic syndrome (clinical); Translations: [Other myelodysplastic syndromes] Onset: 5 07-19-2024 Episodic Nutritional deficiencies (20 sources) Cobalamin deficiency; Translations: [Deficiency of other specified B group vitamins] Onset: 5 01-18-2024 Episodic Open wounds of extremities (20 sources) Laceration of left lower leg; Translations: [Laceration without foreign body, left lower leg, initial encounter] 10-30-2019 Episodic Osteoarthritis (20 sources) Arthritis of right glenohumeral joint; Translations: [Arthropathy, unspecified, shoulder region] Onset: 2 07-15-2021 Chronic Osteoarthritis (1 source) Osteoarthritis of left knee joint; Translations: [Primary osteoarthritis of left knee] Other aftercare (2 sources) Encounter for follow-up examination after completed treatment for conditions other than malignant neoplasm; Translations: [Encounter for follow-up examination after completed treatment for conditions other than malignant ne] Onset: 3 Episodic Other aftercare (2 sources) Patient encounter status; Translations: [Encounter for adjustment and management of vascular access device] 02-22-2025 Episodic Other bone disease and musculoskeletal deformities (20 sources) Other specified disorders of bone, lower leg; Translations: [Bone pain of knee] Episodic Other connective tissue disease (14 sources) History of total knee arthroplasty; Translations: [Presence of left artificial knee joint] 08-26-2023 Chronic Other connective tissue disease (5 sources) Presence of left artificial knee joint; Translations: [Knee joint replacement] Onset: 5 09-03-2023 Chronic Other connective tissue disease (1 source) Pain in lower limb; Translations: [Pain in fibula] Episodic Other connective tissue disease (20 sources) Infrapatellar bursitis of right knee; Translations: [Other enthesopathy of knee] Episodic Other connective tissue disease (20 sources) Swelling of lower limb; Translations: [Other specified soft tissue disorders] 10-30-2019 Episodic Other connective tissue disease (1 source) [...] without complications of unspecified lower extremity] Onset: 2 07-15-2021 Chronic Other diseases of veins and lymphatics (1 source) Lymphedema; Translations: [Lymphedema, not elsewhere classified] Onset: 4 01-01-2024 Chronic Other diseases of veins and lymphatics (20 sources) Peripheral venous insufficiency; Translations: [Venous insufficiency (chronic) (peripheral)] Onset: 8 01-16-2008 Episodic Other diseases of veins and lymphatics (20 sources) Stasis dermatitis; Translations: [Venous insufficiency (chronic) (peripheral)] 10-30-2019 Episodic Other diseases of veins and lymphatics (15 sources) Disorder of vein of lower extremity; Translations: [Venous insufficiency (chronic) (peripheral)] 10-30-2019 Episodic Other diseases of veins and lymphatics (4 sources) Venous insufficiency (chronic) (peripheral); Translations: [Venous (peripheral) insufficiency, unspecified] 09-03-2023 Episodic Other eye disorders (2 sources) Tear film insufficiency; Translations: [Dry eye syndrome of bilateral lacrimal glands] Episodic Other fractures (20 sources) Fracture of twelfth thoracic vertebra; Translations: [Wedge compression fracture of T11-T12 vertebra, initial encounter for closed fracture] Onset: 0 Resolved: 0 10-31-2019 Episodic Other fractures (1 source) Wedge compression fracture of second lumbar vertebra, subsequent encounter for fracture with routine healing; Translations: [Compression fracture of L2 vertebra with routine healing] Onset: 4 Episodic Other fractures (11 sources) Compression fracture of L2; Translations: [Wedge compression fracture of second lumbar vertebra, initial encounter for closed fracture] Onset: 4 01-08-2024 Episodic Other gastrointestinal disorders (2 sources) Dysphagia; Translations: [Dysphagia, unspecified] Onset: 4 Episodic Other injuries and conditions due to external causes (1 source) Muscle strain; Translations: [Muscle strain of right shoulder, subsequent encounter] Episodic Other lower respiratory disease (20 sources) Hypoxia; Translations: [Hypoxemia] 08-27-2023 Episodic Other lower respiratory disease (6 sources) Hypoxemia; Translations: [Hypoxemia] Onset: 4 09-03-2023 Episodic Other lower respiratory disease (10 sources) Dyspnea; Translations: [Shortness of breath] 05-18-2024 Episodic Other nervous system disorders (20 sources) Paresthesia of right lower limb; Translations: [Paresthesia of skin] 10-31-2019 Episodic Other nervous system disorders (14 sources) Acute postoperative pain; Translations: [Other acute postprocedural pain] 09-02-2023 Episodic Other non-traumatic joint disorders (1 source) Knee pain; Translations: [Pain in both knees, unspecified chronicity] Episodic Other non-traumatic joint disorders (20 sources) Shoulder pain; Translations: [Pain in joint, shoulder region] Episodic Other nutritional; endocrine; and metabolic disorders (20 sources) Morbid obesity; Translations: [Morbid (severe) obesity due to excess calories] Onset: 4 10-30-2019 Chronic Other nutritional; endocrine; and metabolic disorders (5 sources) Morbid (severe) obesity due to excess calories; Translations: [Morbid obesity] Onset: 5 09-03-2023 Chronic Other nutritional; endocrine; and metabolic disorders (1 source) Body mass index 40+ - severely obese; Translations: [Morbid (severe) obesity due to excess calories] Onset: 4 01-01-2024 Chronic Other nutritional; endocrine; and metabolic disorders (10 sources) H/O: diabetes mellitus; Translations: [Personal history of other endocrine, nutritional and metabolic disease] 01-08-2024 Episodic Other skin disorders (2 sources) Multiple actinic keratoses; Translations: [Actinic keratosis] 05-11-2023 Episodic Other skin disorders (1 source) Seborrheic keratosis; Translations: [Other seborrheic keratosis] 05-11-2023 Episodic Other skin disorders (1 source) Lentiginosis; Translations: [Other melanin hyperpigmentation] 05-11-2023 Episodic Other skin disorders (1 source) Skin tag; Translations: [Other hypertrophic disorders of the skin] 05-11-2023 Episodic Residual codes; unclassified (1 source) Sleep apnea; Translations: [Sleep apnea, unspecified] Onset: 4 Chronic Residual codes; unclassified (20 sources) Obstructive sleep apnea syndrome; Translations: [Obstructive sleep apnea (adult) (pediatric)] 01-10-2024 Chronic Comment on above: CPAP 12 cm of water with 2 L/min supplemental oxygen bleed Residual codes; unclassified (2 sources) Obstructive sleep apnea (adult) (pediatric); Translations: [Obstructive sleep apnea (adult) (pediatric)] Onset: 4 Chronic Residual codes; unclassified (20 sources) History finding; Translations: [Other specified conditions influencing health status] Episodic Residual codes; unclassified (20 sources) Edema of lower extremity; Translations: [Localized edema] 10-30-2019 Episodic Residual codes; unclassified (1 source) Localized edema; Translations: [Localized edema] Onset: 4 Episodic Residual codes; unclassified (1 source) Edema of the upper extremity 06-05-2024 Episodic Residual codes; unclassified (10 sources) Edema; Translations: [Edema, unspecified] 01-10-2024 Episodic Residual codes; unclassified (2 sources) Difficult venous access; Translations: [Other specified health status] 02-22-2025 Episodic Retinal detachments; defects; vascular occlusion; and retinopathy (16 sources) Bilateral lattice degeneration of retinas; 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, bilateral] Chronic Retinal detachments; defects; vascular occlusion; and retinopathy (7 sources) Detachment of left retina co-occurrent with retinal defect; Translations: [Retinal detachment with multiple breaks, left eye] Episodic Spondylosis; intervertebral disc disorders; other back problems (15 sources) Backache; Translations: [Dorsalgia, unspecified] 08-29-2024 Episodic Thyroid disorders (12 sources) Hypothyroidism; Translations: [Hypothyroidism, unspecified] Onset: 4 01-10-2024 Chronic Unclassified (1 source) OPENED IN ERROR Varicose veins of lower extremity (20 sources) Lipodermatosclerosis; Translations: [Varicose veins of unspecified lower extremity with inflammation] Onset: 2 07-15-2021 Episodic Past or Other Problems Problem Classification Problem Date Documented Da te Episodic/Chronic Other aftercare (1 source) Follow-up status; Translations: [Encounter for other specified aftercare] Onset: 12-31-2023 Resolved: 01-08-2024 01-08-2024 Episodic Other connective tissue disease (13 sources) Weakness of right leg; Translations: [Other symptoms and signs involving the musculoskeletal system] Onset: 10-31-2019 11-07-2019 Episodic Other connective tissue disease (9 sources) Other symptoms and signs involving the musculoskeletal system; Translations: [Other musculoskeletal symptoms referable to limbs] Onset: 10-31-2019 11-07-2019 Episodic Other fractures (20 sources) Compression fracture of thoracic vertebra; Translations: [Wedge compression fracture of unspecified thoracic vertebra, initial encounter for closed fracture] Onset: 07-15-2021 07-15-2021 Episodic Other lower respiratory disease (20 sources) Respiratory insufficiency; Translations: [Other abnormalities of breathing] Onset: 07-16-2021 07-16-2021 Episodic Other lower respiratory disease (2 sources) Shortness of breath; Translations: [Shortness of breath] Onset: 06-05-2024 Episodic Other non-traumatic joint disorders (20 sources) Pain in left knee; Translations: [Left knee pain, unspecified chronicity] Onset: 07-15-2021 07-15-2021 Episodic Comment on above: BART KNEE PAIN AND RI GHT SHOULDER; Other non-traumatic joint disorders (1 source) Pain in unspecified knee; Translations: [Knee pain, unspecified chronicity, unspecified laterality] Onset: 07-15-2021 Episodic Other non-traumatic joint disorders (2 sources) Pain in right shoulder; Translations: [Pain in right shoulder] Onset: 08-28-2024 Episodic Other non-traumatic joint disorders (1 source) Arthritis of right glenohumeral joint; Translations: [Arthritis of right glenohumeral joint] Phlebitis; thrombophlebitis and thromboembolism (19 sources) Acute deep vein thrombosis of lower limb; Translations: [Acute embolism and thrombosis of unspecified deep veins of unspecified lower extremity] Onset: 06-05-2024 Episodic Comment on above: May 2024 compli cating the PIC line which was discontinued. Residual codes; unclassified (1 source) Bilateral lower limb edema; Translations: [Localized edema] Onset: 01-01-2024 01-01-2024 Episodic Respiratory failure; insufficiency; arrest (adult) (20 sources) Acute hypercapnic respiratory failure; Translations: [Acute respiratory failure with hypercapnia] Onset: 07-16-2021 Resolved: 01-08-2024 01-08-2024 Episodic Sprains and strains (20 sources) Shoulder strain; Translations: [Traumatic rupture of rotator cuff] Onset: 07-15-2021 Resolved: 08-28-2020 07-15-2021 Episodic Superficial injury; contusion (20 sources) Contusion of knee; Translations: [Hematoma of left knee region] Onset: 07-15-2021 07-15-2021 Episodic Urinary tract infections (1 source) Urinary tract infectious disease; Translations: [Urinary tract infection, site not specified] Onset: 01-04-2024 01-04-2024 Episodic NEGATED: Highlighted row has not occurred!Residual codes; unclassified (20 sources) Disease Episodic Results Test Name Value Interpretation Reference Range Facility Absolute lymphocyte countOrd ered By: Herbert Toussaint on 03-01-2025 Lymphocytes Auto (Unsp spec) [#/Vol] 0.38 10*3/uL Low 0.83-4.51 [facility] Absolute neutrophil countOrd ered By: Herbert Toussaint on 03-01-2025 Neutrophils (Bld) [#/Vol] 1.7 10*3/uL Low 2.0-7.7 [facility] Automated lymphocyte count a s percentage of total leukocytesOrdered By: Herbert Toussaint on 03-01-2025 Lymphocytes/100 WBC Auto (Unsp spec) 15.8 % Low 19-41 [facility] Basophil percentageOrdered B y: Herbert Toussaint on 03-01-2025 Basophils/100 WBC (Bld) 0.4 % 0-1 [facility] CBC W/Diff, Automatedon 02-10 ATYPICAL LYMPH 1+ Normal [facility] Comment on above: Performed By: #### L 100.0100 ####[facility] [address] [place], [address] Eosinophil percentageOrdered By: Herbert Toussaint on 03-01-2025 Eosinophils/100 WBC (Bld) 6.7 % High 0-5 [facility] Erythrocyte distribution wid th ratioOrdered By: [facility] on 03-01-2025 Erythrocyte distribution width (RBC) [Ratio] 19.5 % High 11.6-14.6 [facility] Erythrocyte distribution wid th standard deviationOrdered By: [facility] on 03-01-2025 Erythrocyte distribution width (RBC) [Ratio] 74.9 fl High 35.1-43.9 [facility] Hematocrit Auto (Bld) [Volum e fraction]Ordered By: [facility] on 03-01-2025 Hematocrit (Bld) [Volume fraction] 27.7 % Low 40-54 [facility] Hemoglobin measurementOrdere d By: Herbert Toussaint on 03-01-2025 Hemoglobin (Bld) [Mass/Vol] 8.1 g/dL Low 13.0-16.5 [facility] Immature granulocytes/100 WB C Auto (Bld)Ordered By: Herbert Toussaint on 03-01-2025 Immature granulocytes/100 WBC (Bld) 0.000 % 0.0-0.9 [facility] Comment on above: IG% - Immature Granu locytes (promyelocytes, myelocytes and metamyelocytes) > 1% indicates that a LEFT SHIFT is Present. MCV (mean corpuscular volume ) determinationOrdered By: Herbert Toussaint on 03-01-2025 MCV (RBC) [Entitic vol] 103.4 fL High 80-94 [facility] Mean corpuscular hemoglobin (MCH) determinationOrdered By: Herbert Toussaint on 03-01-2025 MCH (RBC) [Entitic mass] 30.2 pg 27.0-32.0 [facility] Mean corpuscular hemoglobin concentration (MCHC) determinationOrdered By: Herbert Toussaint on 03-01-2025 MCHC (RBC) [Mass/Vol] 29.2 g/dL Low 32-36 [facility] Mean platelet volume determi nationOrdered By: Juan Luisgumaro Toussaint on 03-01-2025 Platelet mean volume (Bld) [Entitic vol] 10.3 fL 6.2-12.0 [facility] Monocyte percentageOrdered B y: Herbert Toussaint on 03-01-2025 Monocytes/100 WBC (Bld) 6.7 % 0-10 [facility] Neutrophil percentageOrdered By: [facility] on 03-01-2025 Neutrophils/100 WBC (Bld) 70.4 % High 47-70 [facility] Nucleated red blood cell per centageOrdered By: Herbert Toussaint on 03-01-2025 Nucleated RBC/100 WBC (Bld) [Ratio] 0 % 0-5 [facility] Platelet countOrdered By: Arnel Toussaint on 03-01-2025 Platelets (Bld) [#/Vol] 119 10*3/uL Low 150-450 [facility] RBC Auto (Bld) [#/Vol]Ordere d By: Herbert Toussaint on 03-01-2025 RBC (Bld) [#/Vol] 2.68 10*6/uL Low 4.6-6.2 [facility] White blood cell (WBC) count Ordered By: Herbert Toussaint on 03-01-2025 WBC (Bld) [#/Vol] 2.4 10*3/uL Low 4.4-11.0 [facility] MR/PAT.ANEon 02-28-2025 MR/PAT.ANE Normal [facility] CBC W/Diff, Automatedon 02-09 Absolute Neut Normal 2.0-7.7 [facility] Comment on above: Result Comment: NO S PECIMEN COLLECTED Performed By: #### L 100.0100 ####[facility] [address] [place], [address] HCT Normal 40-54 [facility] Comment on above: Result Comment: NO S PECIMEN COLLECTED Performed By: #### L 100.0100 ####[facility] [address] [place], [address] HGB Normal 13.0-16.5 [facility] Comment on above: Result Comment: NO S PECIMEN COLLECTED Performed By: #### L 100.0100 ####[facility] [address] [place], [address] MCH Normal 27.0-32.0 [facility] Comment on above: Result Comment: NO S PECIMEN COLLECTED Performed By: #### L 100.0100 ####[facility] [address] [place], [address] MCHC Normal 32-36 [facility] Comment on above: Result Comment: NO S PECIMEN COLLECTED Performed By: #### L 100.0100 ####[facility] [address] [place], [address] MCV Normal 80-94 [facility] Comment on above: Result Comment: NO S PECIMEN COLLECTED Performed By: #### L 100.0100 ####[facility] [address] [place], [address] NEUT% Normal 47-70 [facility] Comment on above: Result Comment: NO S PECIMEN COLLECTED Performed By: #### L 100.0100 ####[facility] [address] [place], [address] PLT Normal 150-450 [facility] Comment on above: Result Comment: NO S PECIMEN COLLECTED Performed By: #### L 100.0100 ####[facility] [address] [place], [address] RBC Normal 4.6-6.2 [facility] Comment on above: Result Comment: NO S PECIMEN COLLECTED Performed By: #### L 100.0100 ####[facility] [address] [place], [address] RDW CV Normal 11.6-14.6 [facility] Comment on above: Result Comment: NO S PECIMEN COLLECTED Performed By: #### L 100.0100 ####[facility] [address] [place], [address] RDW SD Normal 35.1-43.9 [facility] Comment on above: Result Comment: NO S PECIMEN COLLECTED Performed By: #### L 100.0100 ####[facility] [address] [place], [address] WBC Normal 4.4-11.0 [facility] Comment on above: Result Comment: NO S PECIMEN COLLECTED Performed By: #### L 100.0100 ####[facility] [address] [place], [address] L501.5101on 02-25-2025 GGTP 20 IU/L Normal 0-65 [facility] Comment on above: Order Comment: Order Date: 02/23/25Order Info: 2324-2 - GGTP Result Comment: Perf ormed at: CB - [facility] [address] [place], [place] [id number] Director: Jong Farmer PhD, Phone: [phone] Performed By: #### L 501.19115, L501.5101, L300.3900, L506.0400, L501.9520, L501.5200, L300.4310, L500.4050 ####[facility] [address] [place], [address] Activated partial thrombopla stin time (aPTT) in platelet poor plasma by coagulation aOrdered By: Dereck Willett on 02-23-2025 aPTT Coag (PPP) [Time] 32.1 s 24.1-36.2 [facility] Anion gap in Serum or Plasma Ordered By: Dereck Willett on 02-23-2025 Anion gap [Moles/Vol] 9 mmol/L - [facility] BUN/creatinine ratioOrdered By: Dereck Willett on 02-23-2025 Urea nitrogen/Creatinine [Mass ratio] 19.8 mg/mg 10- [facility] Bilirubin, totalOrdered By: Dereck Willett on 02-23-2025 Bilirubin [Mass/Vol] 0.69 mg/dL 0.00-1.30 [facility] Carbon dioxide, total [Moles /volume] in Central venous bloodOrdered By: Dereck Willett on 02-23-2025 CO2 [Moles/Vol] 24.7 mmol/L 21.0-32.0 [facility] Chloride assayOrdered By: Jaron Willett on 02-23-2025 Chloride [Moles/Vol] 108 mmol/L 98-108 [facility] Comprehensive Metabolic Prof ilon 02-23-2025 Albumin [Mass/Vol] 3.4 g/dL Normal 3.4-4.8 [facility] Comment on above: Order Comment: Order Date: 02/23/25Order Info: 0786-1 - CMPOrder Info: [id number] - MGOrder Info: 3051-0 - U1RDzjgw Info: 3013 - TSHOrder Info: 3027 - T4F Performed By: #### L 501.24332, L501.5101, L300.3900, L506.0400, L501.9520, L501.5200, L300.4310, L500.4050 ####[facility] [address] [place], [place], [id number] Albumin/Globulin [Mass ratio] 1.4 {ratio} Normal 0.9-2.4 [facility] Comment on above: Order Comment: Order Date: 02/23/25Order Info: 0786-1 - CMPOrder Info: [id number] - MGOrder Info: 3051-0 - Y2BBwnbd Info: 3016-3 - TSHOrder Info: 3024-7 - T4F Performed By: #### L 501.04224, L501.5101, L300.3900, L506.0400, L501.9520, L501.5200, L300.4310, L500.4050 ####[facility] [address] [place], [address] ALK PHOS 101 U/L Normal 40-129 [facility] Comment on above: Order Comment: Order Date: 02/23/25Order Info: 86-1 - CMPOrder Info: [id number] - MGOrder Info: 3051-0 - N5OXafrg Info: 3016-3 - TSHOrder Info: 3024-7 - T4F Performed By: #### L 501.18274, L501.5101, L300.3900, L506.0400, L501.9520, L501.5200, L300.4310, L500.4050 ####[facility] [address] [place], [place], [address] ALT [Catalytic activity/Vol] 14 U/L Normal <=46 [facility] Comment on above: Order Comment: Order Date: 02/23/25Order Info: 785-1 - CMPOrder Info: [id number] - MGOrder Info: 3051-0 - Y7YTbqva Info: 3016-3 - TSHOrder Info: 3024-7 - T4F Performed By: #### L 501.21728, L501.5101, L300.3900, L506.0400, L501.9520, L501.5200, L300.4310, L500.4050 ####[facility] [address] [place], [place], [address] AST [Catalytic activity/Vol] 22 U/L Normal <=37 [facility] Comment on above: Order Comment: Order Date: 02/23/25Order Info: 86-1 - CMPOrder Info: [id number] - MGOrder Info: 3051-0 - G8DOlhwc Info: 3016-3 - TSHOrder Info: 3024-7 - T4F Performed By: #### L 501.13957, L501.5101, L300.3900, L506.0400, L501.9520, L501.5200, L300.4310, L500.4050 ####[facility] [address] [place], [place], [phone](882) Bilirubin [Mass/Vol] 0.69 mg/dL Normal 0.00-1.30 [facility] Comment on above: Order Comment: Order Date: 02/23/25Order Info: 86-1 - CMPOrder Info: [id number] - MGOrder Info: 3051-0 - Z3HZigpm Info: 3016-3 - TSHOrder Info: 3024-7 - T4F Performed By: #### L 501.66717, L501.5101, L300.3900, L506.0400, L501.9520, L501.5200, L300.4310, L500.4050 ####[facility] [address] [place], [place], [phone](565) BUN/CRE 19.8 RATIO Normal 10-20 [facility] Comment on above: Order Comment: Order Date: 02/23/25Order Info: 86-1 - CMPOrder Info: 70120-5 - MGOrder Info: 3051-0 - Z8YBrgog Info: 3016-3 - TSHOrder Info: 3024-7 - T4F Performed By: #### L 501.01203, L501.5101, L300.3900, L506.0400, L501.9520, L501.5200, L300.4310, L500.4050 ####[facility] [address] [place], [place], [phone]68) Calcium [Mass/Vol] 8.5 mg/dL Normal 7.6-11.0 [facility] Comment on above: Order Comment: Order Date: 02/23/25Order Info: 86-1 - CMPOrder Info: 05473-4 - MGOrder Info: 3051-0 - R9ZIcmcn Info: 3016-3 - TSHOrder Info: 3024-7 - T4F Performed By: #### L 501.30371, L501.5101, L300.3900, L506.0400, L501.9520, L501.5200, L300.4310, L500.4050 ####[facility] [address] [place], [address] Chloride [Moles/Vol] 108 mmol/L Normal 98-108 [facility] Comment on above: Order Comment: Order Date: 02/23/25Order Info: 86-1 - CMPOrder Info: [id number] - MGOrder Info: 3051-0 - H2CSwvfa Info: 3016-3 - TSHOrder Info: 3024-7 - T4F Performed By: #### L 501.51107, L501.5101, L300.3900, L506.0400, L501.9520, L501.5200, L300.4310, L500.4050 ####[facility] [address] [place], [address] CO2 [Moles/Vol] 24.7 mmol/L Normal 21.0-32.0 [facility] Comment on above: Order Comment: Order Date: 02/23/25Order Info: 785-1 - CMPOrder Info: [id number] - MGOrder Info: 3051-0 - L3DRwvnl Info: 3016-3 - TSHOrder Info: 3024-7 - T4F Performed By: #### L 501.96925, L501.5101, L300.3900, L506.0400, L501.9520, L501.5200, L300.4310, L500.4050 ####[facility] [address] [place], [address] Creatinine [Mass/Vol] 0.83 mg/dL Normal 0.70-1.20 [facility] Comment on above: Order Comment: Order Date: 02/23/25Order Info: 0786-1 - CMPOrder Info: 32478-6 - MGOrder Info: 3051-0 - Z5PCpbiw Info: 3016-3 - TSHOrder Info: 3024-7 - T4F Performed By: #### L 501.43192, L501.5101, L300.3900, L506.0400, L501.9520, L501.5200, L300.4310, L500.4050 ####[facility] [address] [place], [address] GAP 9 Normal 5-15 [facility] Comment on above: Order Comment: Order Date: 02/23/25Order Info: 785-07 - CMPOrder Info: - MGOrder Info: 305-0 - K2JRngni Info: 3016-3 - TSHOrder Info: 3027 - T4F Performed By: #### L 501.23114, L501.5101, L300.3900, L506.0400, L501.9520, L501.5200, L300.4310, L500.4050 ####[facility] [address] [place], [place], [address] GFR/1.73 sq M.predicted among non-blacks MDRD (S/P/Bld) [Vol rate/Area] 96 mL/min/{1.73_m2} Normal >60 [facility] Comment on above: Order Comment: Order Date: 02/23/25Order Info: 785-07 - CMPOrder Info: - MGOrder Info: 0 - J8OAyfiy Info: 3 - TSHOrder Info: 3027 - T4F Result Comment: mL/m in/1.73m2 CKD-EPI Creatinine Equation (2020) Performed By: #### L 501.78882, L501.5101, L300.3900, L506.0400, L501.9520, L501.5200, L300.4310, L500.4050 ####[facility] [address] [place], [place], [address] Globulin (S) [Mass/Vol] 2.5 g/dL Normal 2.2-4.2 [facility] Comment on above: Order Comment: Order Date: 02/23/25Order Info: 785-07 - CMPOrder Info: 68972-0 - MGOrder Info: 3050-0 - D9LReazg Info: 3 - TSHOrder Info: 3024-7 - T4F Performed By: #### L 501.51442, L501.5101, L300.3900, L506.0400, L501.9520, L501.5200, L300.4310, L500.4050 ####[facility] [address] [place], [address] Glucose [Mass/Vol] 92 mg/dL Normal 70-99 [facility] Comment on above: Order Comment: Order Date: 02/23/25Order Info: 785-07 - CMPOrder Info: - MGOrder Info: 0 - M0WIgiih Info: 3 - TSHOrder Info: 3024-7 - T4F Performed By: #### L 501.30027, L501.5101, L300.3900, L506.0400, L501.9520, L501.5200, L300.4310, L500.4050 ####[facility] [address] [place], [address] Potassium [Moles/Vol] 4.5 mmol/L Normal 3.3-5.1 [facility] Comment on above: Order Comment: Order Date: 02/23/25Order Info: 785-07 - CMPOrder Info: - MGOrder Info: 0 - C6OWuyak Info: 3 - TSHOrder Info: 3024-7 - T4F Performed By: #### L 501.06995, L501.5101, L300.3900, L506.0400, L501.9520, L501.5200, L300.4310, L500.4050 ####[facility] [address] [place], [address] Sodium [Moles/Vol] 141 mmol/L Normal 133-145 [facility] Comment on above: Order Comment: Order Date: 02/23/25Order Info: 785-1 - CMPOrder Info: [id number] - MGOrder Info: 3051-0 - M3YTdwcg Info: 3016-3 - TSHOrder Info: 3024-7 - T4F Performed By: #### L 501.46209, L501.5101, L300.3900, L506.0400, L501.9520, L501.5200, L300.4310, L500.4050 ####[facility] [address] [place], [place], [address] T PROT 5.9 g/dL Normal 5.9-8.4 [facility] Comment on above: Order Comment: Order Date: 02/23/25Order Info: 785- - CMPOrder Info: [id number] - MGOrder Info: 3051-0 - S5TQyzbx Info: 3015-3 - TSHOrder Info: 3024-7 - T4F Performed By: #### L 501.59274, L501.5101, L300.3900, L506.0400, L501.9520, L501.5200, L300.4310, L500.4050 ####[facility] [address] [place], [place], [phone] Urea nitrogen [Mass/Vol] 17 mg/dL Normal 4-19 [facility] Comment on above: Order Comment: Order Date: 02/23/25Order Info: 785-07 - CMPOrder Info: - MGOrder Info: 3051-0 - K0QSceuf Info: 3016-3 - TSHOrder Info: 3024-7 - T4F Performed By: #### L 501.46123, L501.5101, L300.3900, L506.0400, L501.9520, L501.5200, L300.4310, L500.4050 ####[facility] [address] [place], [place], [phone] Free T3on 02-23-2025 Free T3 [Mass/Vol] 2.9 pg/mL Normal 2.18-3.98 [facility] Comment on above: Order Comment: Order Date: 02/23/25Order Info: 0786-1 - CMPOrder Info: 64126-2 - MGOrder Info: 3051-0 - A5FDnabu Info: 3016-3 - TSHOrder Info: 3024-7 - T4F Performed By: #### L 501.87586, L501.5101, L300.3900, L506.0400, L501.9520, L501.5200, L300.4310, L500.4050 ####[facility] [address] [place], [place], [address] Free Z9Uysxjnc By: Dereck narvaez on 02-23-2025 Free T3 [Mass/Vol] 2.9 pg/mL 2.18-3.98 [facility] Gamma glutamyl transferase ( GGT) measurementOrdered By: Dereck Willett on 02-23-2025 Amylase [Catalytic activity/Vol] 20 U/L 0-65 [facility] Comment on above: Performed at: [place] [id number] Director: Jong Farmer PhD, Phone: [phone] Glomerular filtration rate ( GFR) estimation/1.73 sq m using serum, plasma, or whole bOrdered By: Dereck Willett on 02-23-2025 GFR/1.73 sq M.predicted among non-blacks MDRD (S/P/Bld) [Vol rate/Area] 96 mL/min/{1.73_m2} >60 [facility] Comment on above: mL/min/1.73m2 CKD-EP I Creatinine Equation (2020) International normalized rat io (INR) calculationOrdered By: Dereck Willett on 02-23-2025 INR Coag (Bld) [Relative time] 1.2 {INR} [facility] - Chemistry and C hemistry - challengeOrdered By: Dereck Willett on 02-23-2025 AST [Catalytic activity/Vol] 22 U/L <38 [facility] Magnesiumon 02-23-2025 Magnesium [Mass/Vol] 2.2 mg/dL Normal 1.5-2.2 [facility] Comment on above: Order Comment: Order Date: 02/23/25Order Info: 0786-1 - CMPOrder Info: [id number] - MGOrder Info: 3051-0 - T8RYguxw Info: 3016-3 - TSHOrder Info: 3024-7 - T4F Performed By: #### L 501.42761, L501.5101, L300.3900, L506.0400, L501.9520, L501.5200, L300.4310, L500.4050 ####[facility] [address] [place], [place], [address] Magnesium measurement (mass/ volume)Ordered By: Dereck Willett on 02-23-2025 Magnesium (Unsp spec) [Mass/Vol] 2.2 mg/dL 1.5-2.2 [facility] Partial Thromboplast Timeon 02-23-2025 aPTT Coag (Bld) [Time] 32.1 s Normal 24.1-36.2 [facility] Comment on above: Order Comment: Order Date: 02/23/25Order Info: 6301-6 - PTOrder Info: 11215-3 - PTT Performed By: #### L 501.71342, L501.5101, L300.3900, L506.0400, L501.9520, L501.5200, L300.4310, L500.4050 ####[facility] [address] [place], [place], [phone] Potassium measurement (mass/ volume)Ordered By: Dereck Willett on 02-23-2025 Potassium (Unsp spec) [Mass/Vol] 4.5 mmol/L 3.3-5.1 [facility] Prothrombin Time w/INRon INR Coag (PPP) [Relative time] 1.2 {INR} Normal [facility] Comment on above: Order Comment: Order Date: 02/23/25Order Info: 6301-6 - PTOrder Info: 35636-1 - PTT Performed By: #### L 501.81349, L501.5101, L300.3900, L506.0400, L501.9520, L501.5200, L300.4310, L500.4050 ####[facility] [address] [place], [address] PT Coag (PPP) [Time] 15.4 s High 11.7-14.9 [facility] Comment on above: Order Comment: Order Date: 02/23/25Order Info: 6301-6 - PTOrder Info: 02997-3 - PTT Performed By: #### L 501.08136, L501.5101, L300.3900, L506.0400, L501.9520, L501.5200, L300.4310, L500.4050 ####[facility] [address] [place], [address] Prothrombin timeOrdered By: Dereck Willett on 02-23-2025 PT Coag (PPP) [Time] 15.4 s High 11.7-14.9 [facility] Serum creatinine measurement (mass/volume)Ordered By: Dereck Willett on 02-23-2025 Creatinine [Mass/Vol] 0.83 mg/dL 0.70-1.20 [facility] Serum globulin measurementOr dered By: Dereck Willett on 02-23-2025 Globulin (S) [Mass/Vol] 2.5 g/dL 2.2-4.2 [facility] Serum glucose measurement (m ass/volume)Ordered By: Dereck Willett on 02-23-2025 Glucose [Mass/Vol] 92 mg/dL 70-99 [facility] Serum or plasma alanine joshi otransferase (ALT) measurementOrdered By: Dereck Willett on 02-23-2025 ALT [Catalytic activity/Vol] 14 U/L <47 [facility] Serum or plasma albumin galdino urement (mass/volume)Ordered By: Dereck Willett on 02-23-2025 Albumin [Mass/Vol] 3.4 g/dL 3.4-4.8 [facility] Serum or plasma albumin/glob ulin mass ratioOrdered By: Dereck Willett on 02-23-2025 Albumin/Globulin [Mass ratio] 1.4 {ratio} 0.9-2.4 [facility] Serum or plasma alkaline rei sphatase measurementOrdered By: Dereck Willett on 02-23-2025 ALP [Catalytic activity/Vol] 101 U/L 40-129 [facility] Serum or plasma calcium galdino urement (mass/volume)Ordered By: Dereck Willett on 02-23-2025 Calcium [Mass/Vol] 8.5 mg/dL 7.6-11.0 [facility] Serum or plasma urea nitroge n measurement (mass/volume)Ordered By: Dereck Willett on 02-23-2025 Urea nitrogen [Mass/Vol] 17 mg/dL 4-19 [facility] Sodium levelOrdered By: Dereck Willett on 02-23-2025 Sodium [Moles/Vol] 141 mmol/L 133-145 [facility] T4 Free Directon 02-23-2025 T4 FREE DIRECT 1.00 ng/dL Normal 0.76-1.46 [facility] Comment on above: Order Comment: Order Date: 02/23/25Order Info: [id number] - CMPOrder Info: [id number] - MGOrder Info: 3051-0 - X6PRyfzl Info: [id number] - TSHOrder Info: [id number] - T4F Performed By: #### L 501.70730, L501.5101, L300.3900, L506.0400, L501.9520, L501.5200, L300.4310, L500.4050 ####[facility] [address] [place], [address] T4 freeOrdered By: Dereck narvaez on 02-23-2025 Free T4 [Mass/Vol] 1.00 ng/dL 0.76-1.46 [facility] TSH DL <= 0.005 mIU/L QnOrde red By: Dereck Willett on 02-23-2025 TSH Qn 2.530 uIU/mL 0.300-4.200 [facility] Thyroid Stim Hormone (TSH)on 02-23-2025 TSH 2.530 uIU/mL Normal 0.300-4.200 [facility] Comment on above: Order Comment: Order Date: 02/23/25Order Info: [id number] - CMPOrder Info: [id number] - MGOrder Info: 3051-0 - G3CQsvek Info: [id number] - TSHOrder Info: [id number] - T4F Performed By: #### L 501.15722, L501.5101, L300.3900, L506.0400, L501.9520, L501.5200, L300.4310, L500.4050 ####[facility] [address] [place], [address] Total proteinOrdered By: Yeny Willett on 02-23-2025 Protein [Mass/Vol] 5.9 g/dL 5.9-8.4 [facility] Absolute lymphocyte countOrd ered By: Herbert Toussaint on 02-22-2025 Lymphocytes Auto (Unsp spec) [#/Vol] 0.44 10*3/uL Low 0.83-4.51 [facility] Absolute neutrophil countOrd ered By: [facility] on 02-22-2025 Neutrophils (Bld) [#/Vol] 1.7 10*3/uL Low 2.0-7.7 [facility] Automated lymphocyte count a s percentage of total leukocytesOrdered By: Herbert Toussaint on 02-22-2025 Lymphocytes/100 WBC Auto (Unsp spec) 18.0 % Low 19-41 [facility] Basophil percentageOrdered B y: Herbert Toussaint on 02-22-2025 Basophils/100 WBC (Bld) 0.4 % 0-1 [facility] Blood manual differential co mment interpretation (narrative result)Ordered By: Herbert Toussaint on 02-22-2025 Manual differential comment Mejia (Bld) [Interp] SCANNED [facility] Blood polychromasia detectio n by light microscopyOrdered By: Herbert Toussaint on 02-22-2025 Polychromasia LM Ql (Bld) 1+ [facility] CBC W/Diff, AutomatedOrdered By: Herbert Toussaint on 02-22-2025 Anisocytosis Ql (Bld) 2+ Normal [facility] Comment on above: Performed By: #### L 503.6030, L503.6550, L100.0100 ####[facility] [address] [place], [address] CBC W/Diff, Automatedon 02-09 POLYCHROMASIA 1+ Normal [facility] Comment on above: Performed By: #### L 503.6030, L503.6550, L100.0100 ####[facility] [address] [place], [address] SMEAR COMMENT SCANNED Normal [facility] Comment on above: Performed By: #### L 503.6030, L503.6550, L100.0100 ####[facility] [address] [place], [address] Eosinophil percentageOrdered By: Herbert Toussaint on 02-22-2025 Eosinophils/100 WBC (Bld) 6.1 % High 0-5 [facility] Erythrocyte distribution wid th ratioOrdered By: [facility] on 02-22-2025 Erythrocyte distribution width (RBC) [Ratio] 21.2 % High 11.6-14.6 [facility] Erythrocyte distribution wid th standard deviationOrdered By: [facility] on 02-22-2025 Erythrocyte distribution width (RBC) [Ratio] 82.1 fl High 35.1-43.9 [facility] Hematocrit Auto (Bld) [Volum e fraction]Ordered By: Herbert Toussaint on 02-22-2025 Hematocrit (Bld) [Volume fraction] 27.4 % Low 40-54 [facility] Hemoglobin measurementOrdere d By: Herbert Toussaint on 02-22-2025 Hemoglobin (Bld) [Mass/Vol] 8.2 g/dL Low 13.0-16.5 [facility] Immature granulocytes/100 WB C Auto (Bld)Ordered By: Herbert Toussaint on 02-22-2025 Immature granulocytes/100 WBC (Bld) 0.400 % 0.0-0.9 [facility] Comment on above: IG% - Immature Granu locytes (promyelocytes, myelocytes and metamyelocytes) > 1% indicates that a LEFT SHIFT is Present. Iron measurement (mass/mass) Ordered By: Herbert Toussaint on 02-22-2025 Iron (Unsp spec) [Mass/Mass] 31 ug/dL Low 65-175 [facility] Iron+Iron Binding Capacityon 02-22-2025 TIBC 236 ug/dL Low 250-450 [facility] Comment on above: Performed By: #### L 503.6030, L503.6550, L100.0100 ####[facility] [address] [place], [address] MCV (mean corpuscular volume ) determinationOrdered By: Herbert Toussaint on 02-22-2025 MCV (RBC) [Entitic vol] 104.6 fL High 80-94 [facility] Mean corpuscular hemoglobin (MCH) determinationOrdered By: Herbert Toussaint on 02-22-2025 MCH (RBC) [Entitic mass] 31.3 pg 27.0-32.0 [facility] Mean corpuscular hemoglobin concentration (MCHC) determinationOrdered By: Herbert Toussaint on 02-22-2025 MCHC (RBC) [Mass/Vol] 29.9 g/dL Low 32-36 [facility] Mean platelet volume determi nationOrdered By: Herbert Toussaint on 02-22-2025 Platelet mean volume (Bld) [Entitic vol] 10.5 fL 6.2-12.0 [facility] Monocyte percentageOrdered B y: Herbert Toussaint on 02-22-2025 Monocytes/100 WBC (Bld) 6.1 % 0-10 [facility] Neutrophil percentageOrdered By: Herbert Toussaint on 02-22-2025 Neutrophils/100 WBC (Bld) 69.0 % 47-70 [facility] No Panel InformationOrdered By: Herbert Toussaint on 02-22-2025 Unsaturated Iron Binding Capacity 205 ug/dL Low 228-428 [facility] Nucleated red blood cell per centageOrdered By: Herbert Toussaint on 02-22-2025 Nucleated RBC/100 WBC (Bld) [Ratio] 0 % 0-5 [facility] Oncology Visit Reporton 02-09 Oncology Visit Report Normal [facility] Platelet countOrdered By: Arnel Toussaint on 02-22-2025 Platelets (Bld) [#/Vol] 109 10*3/uL Low 150-450 [facility] RBC Auto (Bld) [#/Vol]Ordere d By: Herbert Toussaint on 02-22-2025 RBC (Bld) [#/Vol] 2.62 10*6/uL Low 4.6-6.2 [facility] Serum or plasma ferritin hillary surement (mass/volume)Ordered By: Herbert Toussaint on 02-22-2025 Ferritin [Mass/Vol] 63 ng/mL Normal 37-417 [facility] Comment on above: Performed By: #### L 503.6030, L503.6550, L100.0100 ####[facility] [address] [place], [address] Serum or plasma iron saturat ion measurement (mass fraction)Ordered By: Herbert Toussaint on 02-22-2025 Iron saturation [Mass fraction] 13.1 % 9-55 [facility] Comment on above: Previous reported re sult: 13.0 %Edited by: BRYON on 02/22/25:1154 AMENDED REPORT 02/22/25 1154 IRON SATURATION previously reported as: 13.0 % White blood cell (WBC) count Ordered By: Herbert Toussaint on 02-22-2025 WBC (Bld) [#/Vol] 2.5 10*3/uL Low 4.4-11.0 [facility] Surgery Visit Reporton 02-21 Surgery Visit Report Normal [facility] Absolute lymphocyte countOrd ered By: Herbert Toussaint on 02-19-2025 Lymphocytes Auto (Unsp spec) [#/Vol] 0.34 10*3/uL Low 0.83-4.51 [facility] Absolute neutrophil countOrd ered By: Herbert Toussaint on 02-19-2025 Neutrophils (Bld) [#/Vol] 1.8 10*3/uL Low 2.0-7.7 [facility] Automated lymphocyte count a s percentage of total leukocytesOrdered By: Herbert Toussaint on 02-19-2025 Lymphocytes/100 WBC Auto (Unsp spec) 13.5 % Low 19-41 [facility] Basophil percentageOrdered B y: Herbert Goodmanmai on 02-19-2025 Basophils/100 WBC (Bld) 0.8 % 0-1 [facility] Blood manual differential co mment interpretation (narrative result)Ordered By: Juan Luisgumaro Toussaint on 02-19-2025 Manual differential comment Mejia (Bld) [Interp] SCANNED [facility] Comment on above: LYMPHOPENIA NOTED1+ ANISOCYTOSIS CBC W/Diff, Automatedon 02-09 SMEAR COMMENT SCANNED Normal [facility] Comment on above: Result Comment: LYMP HOPENIA NOTED1+ ANISOCYTOSIS Performed By: #### L 100.0100 ####[facility] [address] [place], [address] Eosinophil percentageOrdered By: Juan Luisgumaro Toussaint on 02-19-2025 Eosinophils/100 WBC (Bld) 6.3 % High 0-5 [facility] Erythrocyte distribution wid th ratioOrdered By: [facility] Goodmanmai on 02-19-2025 Erythrocyte distribution width (RBC) [Ratio] 21.6 % High 11.6-14.6 [facility] Erythrocyte distribution wid th standard deviationOrdered By: [facility] Maxinemai on 02-19-2025 Erythrocyte distribution width (RBC) [Ratio] 85.0 fl High 35.1-43.9 [facility] Hematocrit Auto (Bld) [Volum e fraction]Ordered By: Juan Luisgumaro Toussaint on 02-19-2025 Hematocrit (Bld) [Volume fraction] 28.6 % Low 40-54 [facility] Hemoglobin measurementOrdere d By: [facility] on 02-19-2025 Hemoglobin (Bld) [Mass/Vol] 8.4 g/dL Low 13.0-16.5 [facility] Immature granulocytes/100 WB C Auto (Bld)Ordered By: Juan Luisgumaro Toussaint on 02-19-2025 Immature granulocytes/100 WBC (Bld) 0.400 % 0.0-0.9 [facility] Comment on above: IG% - Immature Granu locytes (promyelocytes, myelocytes and metamyelocytes) > 1% indicates that a LEFT SHIFT is Present. MCV (mean corpuscular volume ) determinationOrdered By: Herbert Toussaint on 02-19-2025 MCV (RBC) [Entitic vol] 107.5 fL High 80-94 [facility] Mean corpuscular hemoglobin (MCH) determinationOrdered By: Herbert Toussaint on 02-19-2025 MCH (RBC) [Entitic mass] 31.6 pg 27.0-32.0 [facility] Mean corpuscular hemoglobin concentration (MCHC) determinationOrdered By: Herbert Toussaint on 02-19-2025 MCHC (RBC) [Mass/Vol] 29.4 g/dL Low 32-36 [facility] Mean platelet volume determi nationOrdered By: Herbert Toussaint on 02-19-2025 Platelet mean volume (Bld) [Entitic vol] 12.6 fL High 6.2-12.0 [facility] Monocyte percentageOrdered B y: Herbert Toussaint on 02-19-2025 Monocytes/100 WBC (Bld) 6.3 % 0-10 [facility] Neutrophil percentageOrdered By: Herbert Toussaint on 02-19-2025 Neutrophils/100 WBC (Bld) 72.7 % High 47-70 [facility] Nucleated red blood cell per centageOrdered By: Herbert Toussaint on 02-19-2025 Nucleated RBC/100 WBC (Bld) [Ratio] 0 % 0-5 [facility] Platelet countOrdered By: Arnel Toussaint on 02-19-2025 Platelets (Bld) [#/Vol] 133 10*3/uL Low 150-450 [facility] RBC Auto (Bld) [#/Vol]Ordere d By: Herbert Toussaint on 02-19-2025 RBC (Bld) [#/Vol] 2.66 10*6/uL Low 4.6-6.2 [facility] White blood cell (WBC) count Ordered By: Herbert Toussaint on 02-19-2025 WBC (Bld) [#/Vol] 2.5 10*3/uL Low 4.4-11.0 [facility] CBC W/Diff, AutomatedOrdered By: Herbert Toussaint on 02-15-2025 Anisocytosis Ql (Bld) 2+ Normal [facility] Comment on above: Performed By: #### L 100.0100 ####[facility] [address] [place], [place], [address] CBC W/Diff, Automatedon SMEAR COMMENT COMMENT Normal [facility] Comment on above: Result Comment: LYMP HOPENIA. Performed By: #### L 100.0100 ####[facility] [address] [place], [place], [id number] EGD Reporton 02-14-2025 EGD Report Normal [facility] MR/OP.PROVATon 02-14-2025 MR/OP.PROVAT Normal [facility] MR/POSTOP.ANEon 02-14-2025 MR/POSTOP.ANE Normal [facility] MR/TRCCOUTF6cj 02-14-2025 MR/POSTOPAN2 Normal [facility] Absolute lymphocyte countOrd ered By: Herbert Toussaint on 02-12-2025 Lymphocytes Auto (Unsp spec) [#/Vol] 0.45 10*3/uL Low 0.83-4.51 [facility] Absolute neutrophil countOrd ered By: Herbert Toussaint on 02-12-2025 Neutrophils (Bld) [#/Vol] 1.8 10*3/uL Low 2.0-7.7 [facility] Automated lymphocyte count a s percentage of total leukocytesOrdered By: Herbert Toussaint on 02-12-2025 Lymphocytes/100 WBC Auto (Unsp spec) 17.0 % Low 19-41 [facility] Basophil percentageOrdered B y: Herbert Toussaint on 02-12-2025 Basophils/100 WBC (Bld) 0.4 % 0-1 [facility] Blood polychromasia detectio n by light microscopyOrdered By: Herbert Toussaint on 02-12-2025 Polychromasia LM Ql (Bld) 1+ [facility] CBC W/Diff, Automatedon Anisocytosis Ql (Bld) 2+ Normal [facility] Comment on above: Performed By: #### L 100.0100 ####[facility] [address] [place], [address] MACROCYTOSIS 1+ Normal [facility] Comment on above: Performed By: #### L 100.0100 ####[facility] [address] [place], [address] OVALOCYTE 1+ Normal [facility] Comment on above: Performed By: #### L 100.0100 ####[facility] [address] [place], [address] PLT EST SLT DEC Normal ADEQ [facility] Comment on above: Performed By: #### L 100.0100 ####[facility] [address] [place], [address] POLYCHROMASIA 1+ Normal [facility] Comment on above: Performed By: #### L 100.0100 ####[facility] [address] [place], [address] Eosinophil percentageOrdered By: Herbert Toussaint on 02-12-2025 Eosinophils/100 WBC (Bld) 5.7 % High 0-5 [facility] Erythrocyte distribution wid th ratioOrdered By: Herbert Toussaint on 02-12-2025 Erythrocyte distribution width (RBC) [Ratio] 22.5 % High 11.6-14.6 [facility] Erythrocyte distribution wid th standard deviationOrdered By: Herbert Toussaint on 02-12-2025 Erythrocyte distribution width (RBC) [Ratio] 87.6 fl High 35.1-43.9 [facility] Hematocrit Auto (Bld) [Volum e fraction]Ordered By: Herbert Toussaint on 02-12-2025 Hematocrit (Bld) [Volume fraction] 27.1 % Low 40-54 [facility] Hemoglobin measurementOrdere d By: Herbert Toussaint on 02-12-2025 Hemoglobin (Bld) [Mass/Vol] 7.9 g/dL Low 13.0-16.5 [facility] Immature granulocytes/100 WB C Auto (Bld)Ordered By: Herbert Toussaint on 02-12-2025 Immature granulocytes/100 WBC (Bld) 0.800 % 0.0-0.9 [facility] Comment on above: IG% - Immature Granu locytes (promyelocytes, myelocytes and metamyelocytes) > 1% indicates that a LEFT SHIFT is Present. Laboratory - Hematology and Cell countsOrdered By: Herbert Toussaint on 02-12-2025 Anisocytosis Ql (Bld) 2+ [facility] MCV (mean corpuscular volume ) determinationOrdered By: Herbert Toussaint on 02-12-2025 MCV (RBC) [Entitic vol] 107.5 fL High 80-94 [facility] MR/PAT.ANEon 02-12-2025 MR/PAT.ANE Normal [facility] Macrocytes detectionOrdered By: Herbert Toussaint on 02-12-2025 Macrocytes Ql (Bld) 1+ [facility] Mean corpuscular hemoglobin (MCH) determinationOrdered By: Herbert Toussaint on 02-12-2025 MCH (RBC) [Entitic mass] 31.3 pg 27.0-32.0 [facility] Mean corpuscular hemoglobin concentration (MCHC) determinationOrdered By: Herbert Toussaint on 02-12-2025 MCHC (RBC) [Mass/Vol] 29.2 g/dL Low 32-36 [facility] Mean platelet volume determi nationOrdered By: Herbert Toussaint on 02-12-2025 Platelet mean volume (Bld) [Entitic vol] 11.9 fL 6.2-12.0 [facility] Monocyte percentageOrdered B y: Herbert Toussaint on 02-12-2025 Monocytes/100 WBC (Bld) 8.0 % 0-10 [facility] Neutrophil percentageOrdered By: Herbert Toussaint on 02-12-2025 Neutrophils/100 WBC (Bld) 68.1 % 47-70 [facility] Nucleated red blood cell per centageOrdered By: Herbert Toussaint on 02-12-2025 Nucleated RBC/100 WBC (Bld) [Ratio] 0 % 0-5 [facility] Ovalocyte detectionOrdered B y: Herbert Martinezus on 02-12-2025 Ovalocytes LM Ql (Bld) 1+ [facility] Platelet countOrdered By: Arnel henry Breana on 02-12-2025 Platelets (Bld) [#/Vol] 118 10*3/uL Low 150-450 [facility] Platelet estimateOrdered By: Herbert Breana on 02-12-2025 Platelets LM Ql (Bld) SLT DEC ADEQ [facility] RBC Auto (Bld) [#/Vol]Ordere d By: Herbert Breana on 02-12-2025 RBC (Bld) [#/Vol] 2.52 10*6/uL Low 4.6-6.2 [facility] White blood cell (WBC) count Ordered By: Herbert Breana on 02-12-2025 WBC (Bld) [#/Vol] 2.6 10*3/uL Low 4.4-11.0 [facility] CBC W/Diff, Automatedon - OVALOCYTE 1+ Normal [facility] Comment on above: Performed By: #### L 100.0100 ####[facility] [address] [place], [address] POLYCHROMASIA 1+ Normal [facility] Comment on above: Performed By: #### L 100.0100 ####[facility] [address] [place], [address] Anisocytosis Ql (Bld) 2+ Normal [facility] Comment on above: Performed By: #### L 100.0100 ####[facility] [address] [place], [address] PLT EST SLT DEC Normal [facility] Comment on above: Performed By: #### L 100.0100 ####[facility] [address] [place], [address] BRCon 02-05-2025 RC Normal [facility] Comment on above: Result Comment: [id number] OP RC TRANSFUSED 02/05/25 1235 Performed By: #### B IFRAH CHOPRAS ####[facility] [address] [place], [address] Blood manual differential co mment interpretation (narrative result)Ordered By: Herbert Toussaint on 02-05-2025 Manual differential comment Mejia (Bld) [Interp] COMMENT [facility] Comment on above: LYMPHOPENIA. CBC W/Diff, Automatedon - SMEAR COMMENT COMMENT Normal [facility] Comment on above: Result Comment: LYMP HOPENIA. Performed By: #### L 100.0100 ####[facility] [address] [place], [address] Anisocytosis Ql (Bld) 2+ Normal [facility] Comment on above: Performed By: #### L 100.0100 ####[facility] [address] [place], [address] Type AND Screenon 02-05-2025 Ab SCREEN GEL Negative Normal [facility] Comment on above: Order Comment: NTNYA Performed By: #### B IFRAH CHOPRAS ####[facility] [address] [place], [address] BRCon 02-01-2025 RC Normal [facility] Comment on above: Result Comment: [id number] ON RC TRANSFUSED 02/01/25 1256 Performed By: #### B KEYSHA BTS ####[facility] [address] [place], [address] CBC W/Diff, Automatedon -2 POLYCHROMASIA 1+ Normal [facility] Comment on above: Performed By: #### L 100.0100 ####[facility] [address] [place], [address] Anisocytosis Ql (Bld) 1+ Normal [facility] Comment on above: Performed By: #### L 100.0100 ####[facility] [address] [place], [address] OVALOCYTE 1+ Normal [facility] Comment on above: Performed By: #### L 100.0100 ####[facility] [address] [place], [address] PLT EST SLT DEC Normal ADEQ [facility] Comment on above: Performed By: #### L 100.0100 ####[facility] [address] [place], [address] TEAR DROP 1+ Normal [facility] Comment on above: Performed By: #### L 100.0100 ####[facility] [address] [place], [address] Teardrop cell detectionOrder ed By: Herbert Toussaint on 02-01-2025 Dacrocytes LM Ql (Bld) 1+ [facility] Type AND Screenon 02-01-2025 Ab SCREEN GEL Negative Normal [facility] Comment on above: Order Comment: NTNYA Performed By: #### B RC, BTS ####[facility] [address] [place], [address] BRCon 01-29-2025 RC Normal [facility] Comment on above: Result Comment: [id number] OP RC TRANSFUSED 01/29/25 [id number] OP RC TRANSFUSED 01/29/25 1139 Performed By: #### B TS, BRC ####[facility] [address] [place], [address] CBC W/Diff, Automatedon - TEAR DROP 1+ Normal [facility] Comment on above: Performed By: #### L 503.6550, L503.6030, L100.0100 ####[facility] [address] [place], [address] Anisocytosis Ql (Bld) 1+ Normal [facility] Comment on above: Performed By: #### L 503.6550, L503.6030, L100.0100 ####[facility] [address] [place], [address] Ferritinon 01-29-2025 Ferritin [Mass/Vol] 61 ng/mL Normal 37-417 [facility] Comment on above: Performed By: #### L 503.6550, L503.6030, L100.0100 ####[facility] [address] [place], [address] Iron measurement (mass/mass) Ordered By: Herbert Toussaint on 01-29-2025 Iron (Unsp spec) [Mass/Mass] 23 ug/dL Low 65-175 [facility] Iron+Iron Binding Capacityon 01-29-2025 Iron [Mass/Vol] 23 ug/dL Low 65-175 [facility] Comment on above: Performed By: #### L 503.6550, L503.6030, L100.0100 ####[facility] [address] [place], [address] IRON SATURATION 9.0 Normal 9-55 [facility] Comment on above: Performed By: #### L 503.6550, L503.6030, L100.0100 ####[facility] [address] [place], [address] TIBC 268 ug/dL Normal 250-450 [facility] Comment on above: Performed By: #### L 503.6550, L503.6030, L100.0100 ####[facility] [address] [place], [address] UIBC 245 ug/dL Normal 228-428 [facility] Comment on above: Performed By: #### L 503.6550, L503.6030, L100.0100 ####[facility] [address] [place], [address] No Panel InformationOrdered By: Herbert Toussaint on 01-29-2025 Unsaturated Iron Binding Capacity 245 ug/dL 228-428 [facility] Serum or plasma ferritin hillayr surement (mass/volume)Ordered By: Herbert Toussaint on 01-29-2025 Ferritin [Mass/Vol] 61 ng/mL 37-417 [facility] Serum or plasma iron saturat ion measurement (mass fraction)Ordered By: Herbert Toussaint on 01-29-2025 Iron saturation [Mass fraction] 9.0 % 9-55 [facility] Type AND Screenon 01-29-2025 ABO and Rh group Nom (Bld) Blood group O Rh(D) positive Normal [facility] Comment on above: Order Comment: NTNYA Performed By: #### B TS, [facility] ####[facility] [address] [place], [address] CBC W/Diff, Automatedon 01-09 Absolute Neut Normal 2.0-7.7 [facility] Comment on above: Result Comment: NOT NEEDED Performed By: #### L 503.6030, L100.0100 ####[facility] [address] [place], [address] HCT Normal 40-54 [facility] Comment on above: Result Comment: NOT NEEDED Performed By: #### L 503.6030, L100.0100 ####[facility] [address] [place], [address] HGB Normal 13.0-16.5 [facility] Comment on above: Result Comment: NOT NEEDED Performed By: #### L 503.6030, L100.0100 ####[facility] [address] [place], [address] MCH Normal 27.0-32.0 [facility] Comment on above: Result Comment: NOT NEEDED Performed By: #### L 503.6030, L100.0100 ####[facility] [address] [place], [address] MCHC Normal 32-36 [facility] Comment on above: Result Comment: NOT NEEDED Performed By: #### L 503.6030, L100.0100 ####[facility] [address] [place], [address] MCV Normal 80-94 [facility] Comment on above: Result Comment: NOT NEEDED Performed By: #### L 503.6030, L100.0100 ####[facility] [address] [place], [address] NEUT% Normal 47-70 [facility] Comment on above: Result Comment: NOT NEEDED Performed By: #### L 503.6030, L100.0100 ####[facility] [address] [place], [address] PLT Normal 150-450 [facility] Comment on above: Result Comment: NOT NEEDED Performed By: #### L 503.6030, L100.0100 ####[facility] [address] [place], [address] RBC Normal 4.6-6.2 [facility] Comment on above: Result Comment: NOT NEEDED Performed By: #### L 503.6030, L100.0100 ####[facility] [address] [place], [address] RDW CV Normal 11.6-14.6 [facility] Comment on above: Result Comment: NOT NEEDED Performed By: #### L 503.6030, L100.0100 ####[facility] [address] [place], [address] RDW SD Normal 35.1-43.9 [facility] Comment on above: Result Comment: NOT NEEDED Performed By: #### L 503.6030, L100.0100 ####[facility] [address] [place], [address] WBC Normal 4.4-11.0 [facility] Comment on above: Result Comment: NOT NEEDED Performed By: #### L 503.6030, L100.0100 ####[facility] [address] [place], [address] Iron+Iron Binding Capacityon 01-25-2025 IRON Normal 65-175 [facility] Comment on above: Result Comment: NOT NEEDED Performed By: #### L 503.6030, L100.0100 ####[facility] [address] [place], [address] IRON SATURATION Normal 9-55 [facility] [facility] Comment on above: Result Comment: NOT NEEDED Performed By: #### L 503.6030, L100.0100 ####[facility] [address] [place], [address] TIBC Normal 250-450 [facility] Comment on above: Result Comment: NOT NEEDED Performed By: #### L 503.6030, L100.0100 ####[facility] [address] [place], [address] UIBC Normal 228-428 [facility] Comment on above: Result Comment: NOT NEEDED Performed By: #### L 503.6030, L100.0100 ####[facility] [address] [place], [address] CBC W/Diff, Automatedon - Anisocytosis Ql (Bld) 1+ Normal [facility] Comment on above: Performed By: #### L 100.0100 ####[facility] [address] [place], [address] OVALOCYTE 1+ Normal [facility] Comment on above: Performed By: #### L 100.0100 ####[facility] [address] [place], [address] PLT EST SLT DEC Normal ADEQ [facility] Comment on above: Performed By: #### L 100.0100 ####[facility] [address] [place], [address] TEAR DROP 1+ Normal [facility] Comment on above: Performed By: #### L 100.0100 ####[facility] [address] [place], [address] Absolute lymphocyte countOrd ered By: Herbert Goodmanmai on 01-15-2025 Lymphocytes Auto (Unsp spec) [#/Vol] 0.53 10*3/uL Low 0.83-4.51 [facility] Absolute neutrophil countOrd ered By: Herbert Goodmanmai on 01-15-2025 Neutrophils (Bld) [#/Vol] 1.9 10*3/uL Low 2.0-7.7 [facility] Automated lymphocyte count a s percentage of total leukocytesOrdered By: Juan Luisgumaro Maxinemai on 01-15-2025 Lymphocytes/100 WBC Auto (Unsp spec) 18.2 % Low 19-41 [facility] BRCon 01-15-2025 RC Normal [facility] Comment on above: Result Comment: [id number] ON RC TRANSFUSED 01/16/25 1051 Performed By: #### Re , [facility] ####[facility] [address] [place], [address] Basophil percentageOrdered B y: Herbert Goodmanmai on 01-15-2025 Basophils/100 WBC (Bld) 0.3 % 0-1 [facility] Blood manual differential co mment interpretation (narrative result)Ordered By: Juan Luisgumaro Toussaint on 01-15-2025 Manual differential comment Mejia (Bld) [Interp] SCANNED [facility] Comment on above: LYMPHOPENIA NOTED1+ ANISOCYTOSIS CBC W/Diff, Automatedon Absolute Lymph 0.53 X10 3/uL Low 0.83-4.51 [facility] Comment on above: Performed By: #### L 503.6550, L100.0100, L503.6030 ####[facility] [address] [place], [address] Absolute Neut 1.9 X10 3/uL Low 2.0-7.7 [facility] Comment on above: Performed By: #### L 503.6550, L100.0100, L503.6030 ####[facility] [address] [place], [address] Basophils/100 WBC (Bld) 0.3 % Normal 0-1 [facility] Comment on above: Performed By: #### L 503.6550, L100.0100, L503.6030 ####[facility] [address] [place], [address] Eosinophils/100 WBC (Bld) 6.2 % High 0-5 [facility] Comment on above: Performed By: #### L 503.6550, L100.0100, L503.6030 ####[facility] [address] [place], [address] Erythrocyte distribution width (RBC) [Ratio] 21.5 % High 11.6-14.6 [facility] Comment on above: Performed By: #### L 503.6550, L100.0100, L503.6030 ####[facility] [address] [place], [address] Hematocrit (Bld) [Volume fraction] 27.0 % Low 40-54 [facility] Comment on above: Performed By: #### L 503.6550, L100.0100, L503.6030 ####[facility] [address] [place], [address] Hemoglobin (Bld) [Mass/Vol] 7.8 g/dL Low 13.0-16.5 [facility] Comment on above: Performed By: #### L 503.6550, L100.0100, L503.6030 ####[facility] [address] [place], [address] IG% 0.300 Normal 0.0-0.9 [facility] Comment on above: Result Comment: IG% - Immature Granulocytes (promyelocytes, myelocytes andmetamyelocytes) > 1% indicates that a LEFT SHIFT is Present. Performed By: #### L 503.6550, L100.0100, L503.6030 ####[facility] [address] [place], [address] Lymphocytes/100 WBC (Bld) 18.2 % Low 19-41 [facility] Comment on above: Performed By: #### L 503.6550, L100.0100, L503.6030 ####[facility] [address] [place], [address] MCH (RBC) [Entitic mass] 30.2 pg Normal 27.0-32.0 [facility] Comment on above: Performed By: #### L 503.6550, L100.0100, L503.6030 ####[facility] [address] [place], [address] MCHC (RBC) [Mass/Vol] 28.9 g/dL Low 32-36 [facility] Comment on above: Performed By: #### L 503.6550, L100.0100, L503.6030 ####[facility] [address] [place], [address] MCV (RBC) [Entitic vol] 104.7 fL High 80-94 [facility] Comment on above: Performed By: #### L 503.6550, L100.0100, L503.6030 ####[facility] [address] [place], [address] Monocytes/100 WBC (Bld) 8.2 % Normal 0-10 [facility] Comment on above: Performed By: #### L 503.6550, L100.0100, L503.6030 ####[facility] [address] [place], [address] Neutrophils/100 WBC (Bld) 66.8 % Normal 47-70 [facility] Comment on above: Performed By: #### L 503.6550, L100.0100, L503.6030 ####[facility] [address] [place], [address] Nucleated RBC (Bld) [#/Vol] 0 10*3/uL Normal 0-5 [facility] Comment on above: Performed By: #### L 503.6550, L100.0100, L503.6030 ####[facility] [address] [place], [address] Platelet mean volume (Bld) [Entitic vol] 10.9 fL Normal 6.2-12.0 [facility] Comment on above: Performed By: #### L 503.6550, L100.0100, L503.6030 ####[facility] [address] [place], [address] Platelets (Bld) [#/Vol] 126 10*3/uL Low 150-450 [facility] Comment on above: Performed By: #### L 503.6550, L100.0100, L503.6030 ####[facility] [address] [place], [address] RBC (Bld) [#/Vol] 2.58 10*6/uL Low 4.6-6.2 [facility] Comment on above: Performed By: #### L 503.6550, L100.0100, L503.6030 ####[facility] [address] [place], [address] RDW SD 82.8 fl High 35.1-43.9 [facility] Comment on above: Performed By: #### L 503.6550, L100.0100, L503.6030 ####[facility] [address] [place], [address] WBC (Bld) [#/Vol] 2.9 10*3/uL Low 4.4-11.0 [facility] Comment on above: Performed By: #### L 503.6550, L100.0100, L503.6030 ####[facility] [address] [place], [place], [phone] Eosinophil percentageOrdered By: Herbert Toussaint on 01-15-2025 Eosinophils/100 WBC (Bld) 6.2 % High 0-5 [facility] Erythrocyte distribution wid th ratioOrdered By: [facility] on 01-15-2025 Erythrocyte distribution width (RBC) [Ratio] 21.5 % High 11.6-14.6 [facility] Erythrocyte distribution wid th standard deviationOrdered By: [facility] on 01-15-2025 Erythrocyte distribution width (RBC) [Ratio] 82.8 fl High 35.1-43.9 [facility] Ferritinon 01-15-2025 Ferritin [Mass/Vol] 79 ng/mL Normal 37-417 [facility] Comment on above: Performed By: #### L 503.6550, L100.0100, L503.6030 ####[facility] [address] [place], [address] Hematocrit Auto (Bld) [Volum e fraction]Ordered By: [facility] on 01-15-2025 Hematocrit (Bld) [Volume fraction] 27.0 % Low 40-54 [facility] Hemoglobin measurementOrdere d By: Herbert Toussaint on 01-15-2025 Hemoglobin (Bld) [Mass/Vol] 7.8 g/dL Low 13.0-16.5 [facility] Immature granulocytes/100 WB C Auto (Bld)Ordered By: Herbert Toussaint on 01-15-2025 Immature granulocytes/100 WBC (Bld) 0.300 % 0.0-0.9 [facility] Comment on above: IG% - Immature Granu locytes (promyelocytes, myelocytes and metamyelocytes) > 1% indicates that a LEFT SHIFT is Present. Iron measurement (mass/mass) Ordered By: Herbert Toussaint on 01-15-2025 Iron (Unsp spec) [Mass/Mass] 34 ug/dL Low 65-175 [facility] Iron+Iron Binding Capacityon 01-15-2025 Iron [Mass/Vol] 34 ug/dL Low 65-175 [facility] Comment on above: Performed By: #### L 503.6550, L100.0100, L503.6030 ####[facility] [address] [place], [address] IRON SATURATION 13.0 Normal 9-55 [facility] Comment on above: Performed By: #### L 503.6550, L100.0100, L503.6030 ####[facility] [address] [place], [address] TIBC 257 ug/dL Normal 250-450 [facility] Comment on above: Performed By: #### L 503.6550, L100.0100, L503.6030 ####[facility] [address] [place], [address] UIBC 223 ug/dL Low 228-428 [facility] Comment on above: Performed By: #### L 503.6550, L100.0100, L503.6030 ####[facility] [address] [place], [address] MCV (mean corpuscular volume ) determinationOrdered By: Herbert Toussaint on 01-15-2025 MCV (RBC) [Entitic vol] 104.7 fL High 80-94 [facility] Mean corpuscular hemoglobin (MCH) determinationOrdered By: Herbert Toussaint on 01-15-2025 MCH (RBC) [Entitic mass] 30.2 pg 27.0-32.0 [facility] Mean corpuscular hemoglobin concentration (MCHC) determinationOrdered By: Herbert Toussaint on 01-15-2025 MCHC (RBC) [Mass/Vol] 28.9 g/dL Low 32-36 [facility] Mean platelet volume determi nationOrdered By: Herbert Toussaint on 01-15-2025 Platelet mean volume (Bld) [Entitic vol] 10.9 fL 6.2-12.0 [facility] Monocyte percentageOrdered B y: Herbert Toussaint on 01-15-2025 Monocytes/100 WBC (Bld) 8.2 % 0-10 [facility] Neutrophil percentageOrdered By: Herbert Toussaint on 01-15-2025 Neutrophils/100 WBC (Bld) 66.8 % 47-70 [facility] No Panel InformationOrdered By: Herbert Toussaint on 01-15-2025 Unsaturated Iron Binding Capacity 223 ug/dL Low 228-428 [facility] Nucleated red blood cell per centageOrdered By: Herbert Toussaint on 01-15-2025 Nucleated RBC/100 WBC (Bld) [Ratio] 0 % 0-5 [facility] Oncology Visit Reporton Oncology Visit Report Normal [facility] Platelet countOrdered By: Arnel Toussaint on 01-15-2025 Platelets (Bld) [#/Vol] 126 10*3/uL Low 150-450 [facility] RBC Auto (Bld) [#/Vol]Ordere d By: Herbert Toussaint on 01-15-2025 RBC (Bld) [#/Vol] 2.58 10*6/uL Low 4.6-6.2 [facility] Serum or plasma ferritin hillary surement (mass/volume)Ordered By: Herbert Toussaint on 01-15-2025 Ferritin [Mass/Vol] 79 ng/mL 37-417 [facility] Serum or plasma iron saturat ion measurement (mass fraction)Ordered By: Herbert Toussaint on 01-15-2025 Iron saturation [Mass fraction] 13.0 % 9-55 [facility] Type AND Screenon 01-15-2025 Ab SCREEN GEL Negative Normal [facility] Comment on above: Order Comment: [id number] Performed By: #### B NARINDER, ANITAC ####[facility] [address] [place], [place], [id number] White blood cell (WBC) count Ordered By: Herbert Toussaint on 01-15-2025 WBC (Bld) [#/Vol] 2.9 10*3/uL Low 4.4-11.0 [facility] CBC W/Diff, Automatedon 12-12 SMEAR COMMENT COMMENT Normal [facility] Comment on above: Result Comment: LYMP HOPENIA. Performed By: #### L 100.0100 ####[facility] [address] [place], [place], [id number] Anisocytosis Ql (Bld) 2+ Normal [facility] Comment on above: Performed By: #### L 100.0100 ####[facility] [address] [place], [place], [id number] Laboratory - Hematology and Cell countsOrdered By: Herbert Toussaint on 01-08-2025 Anisocytosis Ql (Bld) 2+ [facility] CBC W/Diff, Automatedon 12-11 Anisocytosis Ql (Bld) 2+ Normal [facility] Comment on above: Performed By: #### L 100.0100 ####[facility] [address] [place], [address] SMEAR COMMENT SCANNED Normal [facility] Comment on above: Result Comment: LYMP HOPENIA NOTED Performed By: #### L 100.0100 ####[facility] [address] [place], [address] Gastroenterology Visit Repor ton 12-26-2024 Gastroenterology Visit Report Normal [facility] Absolute lymphocyte countOrd ered By: Herbert Toussaint on 12-25-2024 Lymphocytes Auto (Unsp spec) [#/Vol] 0.50 10*3/uL Low 0.83-4.51 [facility] Absolute neutrophil countOrd ered By: Herbert Toussaint on 12-25-2024 Neutrophils (Bld) [#/Vol] 2.1 10*3/uL 2.0-7.7 [facility] Automated lymphocyte count a s percentage of total leukocytesOrdered By: Herbert Toussaint on 12-25-2024 Lymphocytes/100 WBC Auto (Unsp spec) 16.8 % Low 19-41 [facility] Basophil percentageOrdered B y: Herbert Breana on 12-25-2024 Basophils/100 WBC (Bld) 0.3 % 0-1 [facility] Blood manual differential co mment interpretation (narrative result)Ordered By: Juan Luisgumaro Toussaint on 12-25-2024 Manual differential comment Mejia (Bld) [Interp] COMMENT [facility] Comment on above: LYMPHOPENIA. CBC W/Diff, Automatedon 12-10 SMEAR COMMENT COMMENT Normal [facility] Comment on above: Result Comment: LYMP HOPENIA. Performed By: #### L 100.0100 ####[facility] [address] [place], [address] Eosinophil percentageOrdered By: [facility] on 12-25-2024 Eosinophils/100 WBC (Bld) 5.7 % High 0-5 [facility] Erythrocyte distribution wid th ratioOrdered By: [facility] on 12-25-2024 Erythrocyte distribution width (RBC) [Ratio] 17.1 % High 11.6-14.6 [facility] Erythrocyte distribution wid th standard deviationOrdered By: [facility] Breana on 12-25-2024 Erythrocyte distribution width (RBC) [Ratio] 59.7 fl High 35.1-43.9 [facility] Hematocrit Auto (Bld) [Volum e fraction]Ordered By: [facility] on 12-25-2024 Hematocrit (Bld) [Volume fraction] 27.0 % Low 40-54 [facility] Hemoglobin measurementOrdere d By: Juan Luisgumaro Toussaint on 12-25-2024 Hemoglobin (Bld) [Mass/Vol] 8.1 g/dL Low 13.0-16.5 [facility] Immature granulocytes/100 WB C Auto (Bld)Ordered By: Juan Luisgumaro Toussaint on 12-25-2024 Immature granulocytes/100 WBC (Bld) 0.700 % 0.0-0.9 [facility] Comment on above: IG% - Immature Granu locytes (promyelocytes, myelocytes and metamyelocytes) > 1% indicates that a LEFT SHIFT is Present. MCV (mean corpuscular volume ) determinationOrdered By: Herbert Toussaint on 12-25-2024 MCV (RBC) [Entitic vol] 94.7 fL High 80-94 [facility] Mean corpuscular hemoglobin (MCH) determinationOrdered By: Herbert Toussaint on 12-25-2024 MCH (RBC) [Entitic mass] 28.4 pg 27.0-32.0 [facility] Mean corpuscular hemoglobin concentration (MCHC) determinationOrdered By: Herbert Toussaint on 12-25-2024 MCHC (RBC) [Mass/Vol] 30.0 g/dL Low 32-36 [facility] Mean platelet volume determi nationOrdered By: Herbert Toussaint on 12-25-2024 Platelet mean volume (Bld) [Entitic vol] 12.2 fL High 6.2-12.0 [facility] Monocyte percentageOrdered B y: Herbert Toussaint on 12-25-2024 Monocytes/100 WBC (Bld) 7.0 % 0-10 [facility] Neutrophil percentageOrdered By: Herbert Toussaint on 12-25-2024 Neutrophils/100 WBC (Bld) 69.5 % 47-70 [facility] Nucleated red blood cell per centageOrdered By: Herbert Toussaint on 12-25-2024 Nucleated RBC/100 WBC (Bld) [Ratio] 0 % 0-5 [facility] Platelet countOrdered By: Arnel Toussaint on 12-25-2024 Platelets (Bld) [#/Vol] 150 10*3/uL 150-450 [facility] RBC Auto (Bld) [#/Vol]Ordere d By: Herbert Toussaint on 12-25-2024 RBC (Bld) [#/Vol] 2.85 10*6/uL Low 4.6-6.2 [facility] White blood cell (WBC) count Ordered By: Herbert Toussaint on 12-25-2024 WBC (Bld) [#/Vol] 3.0 10*3/uL Low 4.4-11.0 [facility] Absolute lymphocyte countOrd ered By: Herbert Toussaint on 12-21-2024 Lymphocytes Auto (Unsp spec) [#/Vol] 0.63 10*3/uL Low 0.83-4.51 [facility] Absolute neutrophil countOrd ered By: Juan Luisgumaro Toussaint on 12-21-2024 Neutrophils (Bld) [#/Vol] 1.6 10*3/uL Low 2.0-7.7 [facility] Automated lymphocyte count a s percentage of total leukocytesOrdered By: Herbert Toussaint on 12-21-2024 Lymphocytes/100 WBC Auto (Unsp spec) 23.9 % 19-41 [facility] BRCon 12-21-2024 RC Normal [facility] Comment on above: Result Comment: [id number] OP RC TRANSFUSED 12/22/24 1006 Performed By: #### B KEYSHA BTS ####[facility] [address] [place], [address] Basophil percentageOrdered B y: Herbert Toussaint on 12-21-2024 Basophils/100 WBC (Bld) 0.4 % 0-1 [facility] CBC W/Diff, Automatedon 12-10 Absolute Lymph 0.63 X10 3/uL Low 0.83-4.51 [facility] Comment on above: Performed By: #### L 503.6550, L100.0100, L503.6030 ####[facility] [address] [place], [address] Absolute Neut 1.6 X10 3/uL Low 2.0-7.7 [facility] Comment on above: Performed By: #### L 503.6550, L100.0100, L503.6030 ####[facility] [address] [place], [address] Basophils/100 WBC (Bld) 0.4 % Normal 0-1 [facility] Comment on above: Performed By: #### L 503.6550, L100.0100, L503.6030 ####[facility] [address] [place], [address] Eosinophils/100 WBC (Bld) 6.1 % High 0-5 [facility] Comment on above: Performed By: #### L 503.6550, L100.0100, L503.6030 ####[facility] [address] [place], [address] Erythrocyte distribution width (RBC) [Ratio] 17.2 % High 11.6-14.6 [facility] Comment on above: Performed By: #### L 503.6550, L100.0100, L503.6030 ####[facility] [address] [place], [address] Hematocrit (Bld) [Volume fraction] 26.2 % Low 40-54 [facility] Comment on above: Performed By: #### L 503.6550, L100.0100, L503.6030 ####[facility] [address] [place], [address] Hemoglobin (Bld) [Mass/Vol] 7.7 g/dL Low 13.0-16.5 [facility] Comment on above: Performed By: #### L 503.6550, L100.0100, L503.6030 ####[facility] [address] [place], [address] IG% 0.400 Normal 0.0-0.9 [facility] Comment on above: Result Comment: IG% - Immature Granulocytes (promyelocytes, myelocytes andmetamyelocytes) > 1% indicates that a LEFT SHIFT is Present. Performed By: #### L 503.6550, L100.0100, L503.6030 ####[facility] [address] [place], [address] Lymphocytes/100 WBC (Bld) 23.9 % Normal 19-41 [facility] Comment on above: Performed By: #### L 503.6550, L100.0100, L503.6030 ####[facility] [address] [place], [address] MCH (RBC) [Entitic mass] 28.9 pg Normal 27.0-32.0 [facility] Comment on above: Performed By: #### L 503.6550, L100.0100, L503.6030 ####[facility] [address] [place], [address] MCHC (RBC) [Mass/Vol] 29.4 g/dL Low 32-36 [facility] Comment on above: Performed By: #### L 503.6550, L100.0100, L503.6030 ####[facility] [address] [place], [address] MCV (RBC) [Entitic vol] 98.5 fL High 80-94 [facility] Comment on above: Performed By: #### L 503.6550, L100.0100, L503.6030 ####[facility] [address] [place], [address] Monocytes/100 WBC (Bld) 9.5 % Normal 0-10 [facility] Comment on above: Performed By: #### L 503.6550, L100.0100, L503.6030 ####[facility] [address] [place], [address] Neutrophils/100 WBC (Bld) 59.7 % Normal 47-70 [facility] Comment on above: Performed By: #### L 503.6550, L100.0100, L503.6030 ####[facility] [address] [place], [address] Nucleated RBC (Bld) [#/Vol] 0 10*3/uL Normal 0-5 [facility] Comment on above: Performed By: #### L 503.6550, L100.0100, L503.6030 ####[facility] [address] [place], [address] Platelet mean volume (Bld) [Entitic vol] 10.6 fL Normal 6.2-12.0 [facility] Comment on above: Performed By: #### L 503.6550, L100.0100, L503.6030 ####[facility] [address] [place], [address] Platelets (Bld) [#/Vol] 127 10*3/uL Low 150-450 [facility] Comment on above: Performed By: #### L 503.6550, L100.0100, L503.6030 ####[facility] [address] [place], [address] RBC (Bld) [#/Vol] 2.66 10*6/uL Low 4.6-6.2 [facility] Comment on above: Performed By: #### L 503.6550, L100.0100, L503.6030 ####[facility] [address] [place], [address] RDW SD 62.5 fl High 35.1-43.9 [facility] Comment on above: Performed By: #### L 503.6550, L100.0100, L503.6030 ####[facility] [address] [place], [address] WBC (Bld) [#/Vol] 2.6 10*3/uL Low 4.4-11.0 [facility] Comment on above: Performed By: #### L 503.6550, L100.0100, L503.6030 ####[facility] [address] [place], [address] Eosinophil percentageOrdered By: Herbert Toussaint on 12-21-2024 Eosinophils/100 WBC (Bld) 6.1 % High 0-5 [facility] Erythrocyte distribution wid th ratioOrdered By: Herbert Toussaint on 12-21-2024 Erythrocyte distribution width (RBC) [Ratio] 17.2 % High 11.6-14.6 [facility] Erythrocyte distribution wid th standard deviationOrdered By: Herbert Toussaint on 12-21-2024 Erythrocyte distribution width (RBC) [Ratio] 62.5 fl High 35.1-43.9 [facility] Ferritinon 12-21-2024 Ferritin [Mass/Vol] 19 ng/mL Low 37-417 [facility] Comment on above: Performed By: #### L 503.6550, L100.0100, L503.6030 ####[facility] [address] [place], [place], [address] Hematocrit Auto (Bld) [Volum e fraction]Ordered By: [facility] on 12-21-2024 Hematocrit (Bld) [Volume fraction] 26.2 % Low 40-54 [facility] Hemoglobin measurementOrdere d By: Herbert Toussaint on 12-21-2024 Hemoglobin (Bld) [Mass/Vol] 7.7 g/dL Low 13.0-16.5 [facility] Immature granulocytes/100 WB C Auto (Bld)Ordered By: [facility] on 12-21-2024 Immature granulocytes/100 WBC (Bld) 0.400 % 0.0-0.9 [facility] Comment on above: IG% - Immature Granu locytes (promyelocytes, myelocytes and metamyelocytes) > 1% indicates that a LEFT SHIFT is Present. Iron measurement (mass/mass) Ordered By: Herbert Toussaint on 12-21-2024 Iron (Unsp spec) [Mass/Mass] 25 ug/dL Low 65-175 [facility] Iron+Iron Binding Capacityon 12-21-2024 Iron [Mass/Vol] 25 ug/dL Low 65-175 [facility] Comment on above: Performed By: #### L 503.6550, L100.0100, L503.6030 ####[facility] [address] [place], [place], [id number] IRON SATURATION 9.0 Normal 9-55 [facility] Comment on above: Performed By: #### L 503.6550, L100.0100, L503.6030 ####[facility] [address] [place], [address] TIBC 292 ug/dL Normal 250-450 [facility] Comment on above: Performed By: #### L 503.6550, L100.0100, L503.6030 ####[facility] [address] [place], [address] UIBC 267 ug/dL Normal 228-428 [facility] Comment on above: Performed By: #### L 503.6550, L100.0100, L503.6030 ####[facility] [address] [place], [address] MCV (mean corpuscular volume ) determinationOrdered By: Herbert Toussaint on 12-21-2024 MCV (RBC) [Entitic vol] 98.5 fL High 80-94 [facility] Mean corpuscular hemoglobin (MCH) determinationOrdered By: Herbert Toussaint on 12-21-2024 MCH (RBC) [Entitic mass] 28.9 pg 27.0-32.0 [facility] Mean corpuscular hemoglobin concentration (MCHC) determinationOrdered By: Herbert Toussaint on 12-21-2024 MCHC (RBC) [Mass/Vol] 29.4 g/dL Low 32-36 [facility] Mean platelet volume determi nationOrdered By: Herbert Toussaint on 12-21-2024 Platelet mean volume (Bld) [Entitic vol] 10.6 fL 6.2-12.0 [facility] Monocyte percentageOrdered B y: Herbert Toussaint on 12-21-2024 Monocytes/100 WBC (Bld) 9.5 % 0-10 [facility] Neutrophil percentageOrdered By: Herbert Toussaint on 12-21-2024 Neutrophils/100 WBC (Bld) 59.7 % 47-70 [facility] No Panel InformationOrdered By: Herbert Toussaint on 12-21-2024 Unsaturated Iron Binding Capacity 267 ug/dL 228-428 [facility] Nucleated red blood cell per centageOrdered By: Herbert Toussaint on 12-21-2024 Nucleated RBC/100 WBC (Bld) [Ratio] 0 % 0-5 [facility] Oncology Visit Reporton 12-10 Oncology Visit Report Normal [facility] Platelet countOrdered By: Arnel Toussaint on 12-21-2024 Platelets (Bld) [#/Vol] 127 10*3/uL Low 150-450 [facility] RBC Auto (Bld) [#/Vol]Ordere d By: Herbert Toussaint on 12-21-2024 RBC (Bld) [#/Vol] 2.66 10*6/uL Low 4.6-6.2 [facility] Serum or plasma ferritin hillary surement (mass/volume)Ordered By: Herbert Toussaint on 12-21-2024 Ferritin [Mass/Vol] 19 ng/mL Low 37-417 [facility] Serum or plasma iron saturat ion measurement (mass fraction)Ordered By: Herbert Toussaint on 12-21-2024 Iron saturation [Mass fraction] 9.0 % 9-55 [facility] Type AND Screenon 12-21-2024 ABO and Rh group Nom (Bld) Blood group O Rh(D) positive Normal [facility] Comment on above: Order Comment: [id number] 10-03 0930NYA Performed By: #### B IFRAH CHOPRAS ####[facility] [address] [place], [place], [id number] White blood cell (WBC) count Ordered By: Herbert Toussaint on 12-21-2024 WBC (Bld) [#/Vol] 2.6 10*3/uL Low 4.4-11.0 [facility] BRCon 12-14-2024 RC Normal [facility] Comment on above: Result Comment: [id number] ON RC TRANSFUSED 12/15/24 0951 Performed By: #### B KEYSHA BTS ####[facility] [address] [place], [place], [id number] CBC W/Diff, Automatedon HYPOCHROMASIA 1+ Normal [facility] Comment on above: Performed By: #### L 100.0100 ####[facility] [address] [place], [place], [address] Hypochromatic red blood cell detectionOrdered By: Herbert Toussaint on 12-14-2024 Hypochromia Ql (Bld) 1+ [facility] Type AND Screenon 12-14-2024 Ab SCREEN GEL Negative Normal [facility] Comment on above: Order Comment: [id number] 01-03 0930NYA Performed By: #### B RC, BTS ####[facility] [address] [place], [address] Pulmonary Visit Reporton Pulmonary Visit Report Normal [facility] Absolute lymphocyte countOrd ered By: [facility] on 12-05-2024 Lymphocytes Auto (Unsp spec) [#/Vol] 0.49 10*3/uL Low 0.83-4.51 [facility] Absolute neutrophil countOrd ered By: [facility] on 12-05-2024 Neutrophils (Bld) [#/Vol] 1.4 10*3/uL Low 2.0-7.7 [facility] Automated lymphocyte count a s percentage of total leukocytesOrdered By: Herbert Toussaint on 12-05-2024 Lymphocytes/100 WBC Auto (Unsp spec) 20.9 % 19-41 [facility] Basophil percentageOrdered B y: Herbert Toussaint on 12-05-2024 Basophils/100 WBC (Bld) 0.0 % 0-1 [facility] CBC W/Diff, Automatedon 11-10 PLT EST SLT DEC Normal ADEQ [facility] Comment on above: Performed By: #### L 100.0100 ####[facility] [address] [place], [place], [id number] Eosinophil percentageOrdered By: [facility] on 12-05-2024 Eosinophils/100 WBC (Bld) 8.5 % High 0-5 [facility] Erythrocyte distribution wid th ratioOrdered By: Herbert Toussaint on 12-05-2024 Erythrocyte distribution width (RBC) [Ratio] 17.3 % High 11.6-14.6 [facility] Erythrocyte distribution wid th standard deviationOrdered By: Herbert Toussaint on 12-05-2024 Erythrocyte distribution width (RBC) [Ratio] 65.2 fl High 35.1-43.9 [facility] Hematocrit Auto (Bld) [Volum e fraction]Ordered By: Herbert Toussaint on 12-05-2024 Hematocrit (Bld) [Volume fraction] 26.7 % Low 40-54 [facility] Hemoglobin measurementOrdere d By: Herbert Toussaint on 12-05-2024 Hemoglobin (Bld) [Mass/Vol] 8.1 g/dL Low 13.0-16.5 [facility] Immature granulocytes/100 WB C Auto (Bld)Ordered By: Herbert Toussaint on 12-05-2024 Immature granulocytes/100 WBC (Bld) 0.400 % 0.0-0.9 [facility] Comment on above: IG% - Immature Granu locytes (promyelocytes, myelocytes and metamyelocytes) > 1% indicates that a LEFT SHIFT is Present. MCV (mean corpuscular volume ) determinationOrdered By: Herbert Toussaint on 12-05-2024 MCV (RBC) [Entitic vol] 102.7 fL High 80-94 [facility] Mean corpuscular hemoglobin (MCH) determinationOrdered By: Herbert Toussaint on 12-05-2024 MCH (RBC) [Entitic mass] 31.2 pg 27.0-32.0 [facility] Mean corpuscular hemoglobin concentration (MCHC) determinationOrdered By: Herbert Toussaint on 12-05-2024 MCHC (RBC) [Mass/Vol] 30.3 g/dL Low 32-36 [facility] Mean platelet volume determi nationOrdered By: Herbert Toussaint on 12-05-2024 Platelet mean volume (Bld) [Entitic vol] 9.2 fL 6.2-12.0 [facility] Monocyte percentageOrdered B y: Herbert Toussaint on 12-05-2024 Monocytes/100 WBC (Bld) 10.6 % High 0-10 [facility] Neutrophil percentageOrdered By: Herbert Toussaint on 12-05-2024 Neutrophils/100 WBC (Bld) 59.6 % 47-70 [facility] Nucleated red blood cell per centageOrdered By: Herbert Toussaint on 12-05-2024 Nucleated RBC/100 WBC (Bld) [Ratio] 0 % 0-5 [facility] Platelet countOrdered By: Arnel Toussaint on 12-05-2024 Platelets (Bld) [#/Vol] 102 10*3/uL Low 150-450 [facility] Platelet estimateOrdered By: Herbert Toussaint on 12-05-2024 Platelets LM Ql (Bld) SLT DEC ADEQ [facility] RBC Auto (Bld) [#/Vol]Ordere d By: Herbert Toussaint on 12-05-2024 RBC (Bld) [#/Vol] 2.60 10*6/uL Low 4.6-6.2 [facility] White blood cell (WBC) count Ordered By: Herbert Toussaint on 12-05-2024 WBC (Bld) [#/Vol] 2.4 10*3/uL Low 4.4-11.0 [facility] Blood polychromasia detectio n by light microscopyOrdered By: Herbert Toussaint on 11-30-2024 Polychromasia LM Ql (Bld) RARE [facility] CBC W/Diff, Automatedon 11-10 Anisocytosis Ql (Bld) 1+ Normal [facility] Comment on above: Performed By: #### L 100.0100 ####[facility] [address] [place], [place], [id number] POLYCHROMASIA RARE Normal [facility] Comment on above: Performed By: #### L 100.0100 ####[facility] [address] [place], [place], [id number] Laboratory - Hematology and Cell countsOrdered By: Herbert Toussaint on 11-30-2024 Anisocytosis Ql (Bld) 1+ [facility] Anion gap in Serum or Plasma Ordered By: Cheri Gomez on 11-27-2024 Anion gap [Moles/Vol] 8 mmol/L 5-15 [facility] BUN/creatinine ratioOrdered By: Cheri Gomez on 11-27-2024 Urea nitrogen/Creatinine [Mass ratio] 23.8 mg/mg High 10-20 [facility] Basic Metabolic Profile (BMP )on 11-27-2024 BUN/CRE 23.8 RATIO High 10-20 [facility] Comment on above: Performed By: #### L 500.2500, L100.0100, L503.6550, L503.6030 ####[facility] [address] [place], [address] Calcium [Mass/Vol] 8.7 mg/dL Normal 7.6-11.0 [facility] Comment on above: Performed By: #### L 500.2500, L100.0100, L503.6550, L503.6030 ####[facility] [address] [place], [address] Chloride [Moles/Vol] 113 mmol/L High 98-108 [facility] Comment on above: Performed By: #### L 500.2500, L100.0100, L503.6550, L503.6030 ####[facility] [address] [place], [address] CO2 [Moles/Vol] 22.5 mmol/L Normal 21.0-32.0 [facility] Comment on above: Performed By: #### L 500.2500, L100.0100, L503.6550, L503.6030 ####[facility] [address] [place], [address] Creatinine [Mass/Vol] 0.99 mg/dL Normal 0.70-1.20 [facility] Comment on above: Performed By: #### L 500.2500, L100.0100, L503.6550, L503.6030 ####[facility] [address] [place], [address] ECRCL 111.88 ml/min Normal 50-250 [facility] Comment on above: Performed By: #### L 500.2500, L100.0100, L503.6550, L503.6030 ####[facility] [address] [place], [address] GAP 8 Normal 5-15 [facility] Comment on above: Performed By: #### L 500.2500, L100.0100, L503.6550, L503.6030 ####[facility] [address] [place], [address] GFR/1.73 sq M.predicted among non-blacks MDRD (S/P/Bld) [Vol rate/Area] 84 mL/min/{1.73_m2} Normal >60 [facility] Comment on above: Result Comment: mL/m in/1.73m2 CKD-EPI Creatinine Equation (2020) Performed By: #### L 500.2500, L100.0100, L503.6550, L503.6030 ####[facility] [address] [place], [address] Glucose [Mass/Vol] 172 mg/dL High 70-99 [facility] Comment on above: Performed By: #### L 500.2500, L100.0100, L503.6550, L503.6030 ####[facility] [address] [place], [address] Potassium [Moles/Vol] 4.3 mmol/L Normal 3.3-5.1 [facility] Comment on above: Performed By: #### L 500.2500, L100.0100, L503.6550, L503.6030 ####[facility] [address] [place], [address] Sodium [Moles/Vol] 143 mmol/L Normal 133-145 [facility] Comment on above: Performed By: #### L 500.2500, L100.0100, L503.6550, L503.6030 ####[facility] [address] [place], [address] Urea nitrogen [Mass/Vol] 24 mg/dL High 10-28 [facility] Comment on above: Performed By: #### L 500.2500, L100.0100, L503.6550, L503.6030 ####[facility] [address] [place], [address] CBC W/Diff, Automatedon 11-09 HYPOCHROMASIA 1+ Normal [facility] Comment on above: Performed By: #### L 500.2500, L100.0100, L503.6550, L503.6030 ####[facility] [address] [place], [address] Anisocytosis Ql (Bld) 2+ Normal [facility] Comment on above: Performed By: #### L 500.2500, L100.0100, L503.6550, L503.6030 ####[facility] [address] [place], [address] PLT EST SLT DEC Normal ADEQ [facility] Comment on above: Performed By: #### L 500.2500, L100.0100, L503.6550, L503.6030 ####[facility] [address] [place], [address] POLYCHROMASIA 1+ Normal [facility] Comment on above: Performed By: #### L 500.2500, L100.0100, L503.6550, L503.6030 ####[facility] [address] [place], [address] Carbon dioxide, total [Moles /volume] in Central venous bloodOrdered By: Cheri Gomez on 11-27-2024 CO2 [Moles/Vol] 22.5 mmol/L 21.0-32.0 [facility] Chloride assayOrdered By: Willi Gomez on 11-27-2024 Chloride [Moles/Vol] 113 mmol/L High 98-108 [facility] Ferritinon 11-27-2024 Ferritin [Mass/Vol] 49 ng/mL Normal 37-417 [facility] Comment on above: Performed By: #### L 500.2500, L100.0100, L503.6550, L503.6030 ####[facility] [address] [place], [address] Glomerular filtration rate ( GFR) estimation/1.73 sq m using serum, plasma, or whole bOrdered By: Cheri Gomez on 11-27-2024 GFR/1.73 sq M.predicted among non-blacks MDRD (S/P/Bld) [Vol rate/Area] 84 mL/min/{1.73_m2} >60 [facility] Comment on above: mL/min/1.73m2 CKD-EP I Creatinine Equation (2020) Hypochromatic red blood cell detectionOrdered By: Cheri Gomez on 11-27-2024 Hypochromia Ql (Bld) 1+ [facility] Iron measurement (mass/mass) Ordered By: Cheri Gomez on 11-27-2024 Iron (Unsp spec) [Mass/Mass] 39 ug/dL Low 65-175 [facility] Iron+Iron Binding Capacityon 11-27-2024 Iron [Mass/Vol] 39 ug/dL Low 65-175 [facility] Comment on above: Performed By: #### L 500.2500, L100.0100, L503.6550, L503.6030 ####[facility] [address] [place], [address] IRON SATURATION 15.0 Normal 9-55 [facility] Comment on above: Performed By: #### L 500.2500, L100.0100, L503.6550, L503.6030 ####[facility] [address] [place], [address] TIBC 263 ug/dL Normal 250-450 [facility] Comment on above: Performed By: #### L 500.2500, L100.0100, L503.6550, L503.6030 ####[facility] [address] [place], [address] UIBC 224 ug/dL Low 228-428 [facility] Comment on above: Performed By: #### L 500.2500, L100.0100, L503.6550, L503.6030 ####[facility] [address] [place], [address] No Panel InformationOrdered By: Cheri Gomez on 11-27-2024 Unsaturated Iron Binding Capacity 224 ug/dL Low 228-428 [facility] Potassium measurement (mass/ volume)Ordered By: Cheri Gomez on 11-27-2024 Potassium (Unsp spec) [Mass/Vol] 4.3 mmol/L 3.3-5.1 [facility] Serum creatinine measurement (mass/volume)Ordered By: Cheri Gomez on 11-27-2024 Creatinine [Mass/Vol] 0.99 mg/dL 0.70-1.20 [facility] Serum glucose measurement (m ass/volume)Ordered By: Cheri Gomez on 11-27-2024 Glucose [Mass/Vol] 172 mg/dL High 70-99 [facility] Serum or plasma calcium galdino urement (mass/volume)Ordered By: Cheri Gomez on 11-27-2024 Calcium [Mass/Vol] 8.7 mg/dL 7.6-11.0 [facility] Serum or plasma ferritin hillary surement (mass/volume)Ordered By: Cheri Gomez on 11-27-2024 Ferritin [Mass/Vol] 49 ng/mL 37-417 [facility] Serum or plasma iron saturat ion measurement (mass fraction)Ordered By: Cheri Gomez on 11-27-2024 Iron saturation [Mass fraction] 15.0 % 9-55 [facility] Serum or plasma urea nitroge n measurement (mass/volume)Ordered By: Cheri Gomez on 11-27-2024 Urea nitrogen [Mass/Vol] 24 mg/dL High 4-19 [facility] Sodium levelOrdered By: Cheri Gomez on 11-27-2024 Sodium [Moles/Vol] 143 mmol/L 133-145 [facility] CBC W/Diff, Automatedon 11-09 Anisocytosis Ql (Bld) 1+ Normal [facility] Comment on above: Performed By: #### L 100.0100 ####[facility] [address] [place], [address] PLT EST SLT DEC Normal ADEQ [facility] Comment on above: Performed By: #### L 100.0100 ####[facility] [address] [place], [address] CBC W/Diff, Automatedon Anisocytosis Ql (Bld) 1+ Normal [facility] Comment on above: Performed By: #### L 100.0100 ####[facility] [address] [place], [address] Ferritinon 11-16-2024 Ferritin [Mass/Vol] 93 ng/mL Normal 37-417 [facility] Comment on above: Performed By: #### L 503.6550, L503.6030 ####[facility] [address] [place], [address] Iron+Iron Binding Capacityon 11-16-2024 Iron [Mass/Vol] 38 ug/dL Low 65-175 [facility] Comment on above: Performed By: #### L 503.6550, L503.6030 ####[facility] [address] [place], [address] IRON SATURATION 15.0 Normal 9-55 [facility] Comment on above: Performed By: #### L 503.6550, L503.6030 ####[facility] [address] [place], [address] TIBC 252 ug/dL Normal 250-450 [facility] Comment on above: Performed By: #### L 503.6550, L503.6030 ####[facility] [address] [place], [address] UIBC 214 ug/dL Low 228-428 [facility] Comment on above: Performed By: #### L 503.6550, L503.6030 ####[facility] [address] [place], [address] Oncology Visit Reporton 05-0 Oncology Visit Report Normal [facility] Blood manual differential co mment interpretation (narrative result)Ordered By: Cheri Gomez on 11-09-2024 Manual differential comment Mejia (Bld) [Interp] SCANNED [facility] Comment on above: LYMPHOPENIA NOTED1+A NISOCYTOSIS CBC W/Diff, Automatedon 05-0 SMEAR COMMENT SCANNED Normal [facility] Comment on above: Result Comment: LYMP HOPENIA NOTED1+ANISOCYTOSIS Performed By: #### L 100.0100 ####[facility] [address] [place], [address] CBC W/Diff, Automatedon 04-2 Anisocytosis Ql (Bld) 1+ Normal [facility] Comment on above: Performed By: #### L 100.0100 ####[facility] [address] [place], [address] CBC W/Diff, Automatedon -2 PATH REV Reviewed Normal [facility] Comment on above: Result Comment: SEE REPORT IN PATIENT'S EMR AMENDED REPORT 10/31/24 1321 PATH REV previously reported as: November Performed By: #### L 100.0100 ####[facility] [address] [place], [address] BRCon 10-26-2024 RC Normal [facility] Comment on above: Result Comment: [id number] OP RC TRANSFUSED 10/26/24 1231 Performed By: #### B ALEXA BARCENAS ####[facility] [address] [place], [address] CBC W/Diff, Automatedon 10-10 Anisocytosis Ql (Bld) 2+ Normal [facility] Comment on above: Performed By: #### L 100.0100 ####[facility] [address] [place], [address] Type AND Screenon 10-26-2024 Ab SCREEN GEL Negative Normal [facility] Comment on above: Order Comment: [id number] Performed By: #### B , [facility] ####[facility] [address] [place], [address] CBC W/Diff, Automatedon 10-10 PATH REV N/A Normal [facility] Comment on above: Result Comment: AMENDED REPORT 10/23/242027 PATH REV previously reported as: Minda valdes Performed By: #### L 100.0100, L503.6030, L503.6550 ####[facility] [address] [place], [address] Ferritinon 10-19-2024 Ferritin [Mass/Vol] 43 ng/mL Normal 37-417 [facility] Comment on above: Performed By: #### L 100.0100, L503.6030, L503.6550 ####[facility] [address] [place], [address] Iron+Iron Binding Capacityon 10-19-2024 Iron [Mass/Vol] 26 ug/dL Low 65-175 [facility] Comment on above: Performed By: #### L 100.0100, L503.6030, L503.6550 ####[facility] [address] [place], [address] IRON SATURATION 9.0 Normal 9-55 [facility] Comment on above: Performed By: #### L 100.0100, L503.6030, L503.6550 ####[facility] [address] [place], [address] TIBC 278 ug/dL Normal 250-450 [facility] Comment on above: Performed By: #### L 100.0100, L503.6030, L503.6550 ####[facility] [address] [place], [address] UIBC 252 ug/dL Normal 228-428 [facility] Comment on above: Performed By: #### L 100.0100, L503.6030, L503.6550 ####[facility] [address] [place], [address] Oncology Visit Reporton -1 Oncology Visit Report Normal [facility] Review by pathologistOrdered By: Herbert Toussaint on 10-19-2024 Pathologist review Mejia (Unsp spec) [Interp] N/A [facility] Comment on above: Previous reported re sult: Minda valdes Edited by: LIANET on 10/23/24:2027 AMENDED REPORT 10/23/242027 PATH REV previously reported as: Minda valdes CBC W/Diff, Automatedon 04-0 PATH REV N/A Normal [facility] Comment on above: Result Comment: AMENDED REPORT 10/15/241824 PATH REV previously reported as: Minda valdes Performed By: #### L 100.0100 ####[facility] [address] [place], [address] CBC W/Diff, Automatedon 04-0 Anisocytosis Ql (Bld) 1+ Normal [facility] Comment on above: Performed By: #### L 100.0100 ####[facility] [address] [place], [address] PLT EST SLT DEC Normal ADEQ [facility] Comment on above: Performed By: #### L 100.0100 ####[facility] [address] [place], [address] POLYCHROMASIA 1+ Normal [facility] Comment on above: Performed By: #### L 100.0100 ####[facility] [address] [place], [address] OCT ANGIOGRAPHY OU (BOTH EYE S)on 10-12-2024 [facility] Radiology Study observation (narrative) [facility] OCT MACULA CIRRUS OU (BOTH E YES)on 10-12-2024 [facility] Radiology Study observation (narrative) [facility] Absolute neutrophil countOrd ered By: Herbert Toussaint on 10-05-2024 Neutrophils (Bld) [#/Vol] 1.8 10*3/uL Low 2.0-7.7 [facility] Basophil percentageOrdered B y: Herbert Toussaint on 10-05-2024 Basophils/100 WBC (Bld) 0.3 % 0-1 [facility] CBC W/Diff, Automatedon 09-10 Absolute Lymph 0.71 X10 3/uL Low 0.83-4.51 [facility] Comment on above: Performed By: #### L 100.0100 ####[facility] [address] [place], [address] Absolute Neut 1.8 X10 3/uL Low 2.0-7.7 [facility] Comment on above: Performed By: #### L 100.0100 ####[facility] [address] [place], [address] Basophils/100 WBC (Bld) 0.3 % Normal 0-1 [facility] Comment on above: Performed By: #### L 100.0100 ####[facility] [address] [place], [address] Eosinophils/100 WBC (Bld) 8.4 % High 0-5 [facility] Comment on above: Performed By: #### L 100.0100 ####[facility] [address] [place], [address] Erythrocyte distribution width (RBC) [Ratio] 17.5 % High 11.6-14.6 [facility] Comment on above: Performed By: #### L 100.0100 ####[facility] [address] [place], [address] Hematocrit (Bld) [Volume fraction] 26.8 % Low 40-54 [facility] Comment on above: Performed By: #### L 100.0100 ####[facility] [address] [place], [address] Hemoglobin (Bld) [Mass/Vol] 8.2 g/dL Low 13.0-16.5 [facility] Comment on above: Performed By: #### L 100.0100 ####[facility] [address] [place], [address] IG% 0.600 Normal 0.0-0.9 [facility] Comment on above: Result Comment: IG% - Immature Granulocytes (promyelocytes, myelocytes andmetamyelocytes) > 1% indicates that a LEFT SHIFT is Present. Performed By: #### L 100.0100 ####[facility] [address] [place], [address] Lymphocytes/100 WBC (Bld) 23.1 % Normal 19-41 [facility] Comment on above: Performed By: #### L 100.0100 ####[facility] [address] [place], [address] MCH (RBC) [Entitic mass] 31.7 pg Normal 27.0-32.0 [facility] Comment on above: Performed By: #### L 100.0100 ####[facility] [address] [place], [address] MCHC (RBC) [Mass/Vol] 30.6 g/dL Low 32-36 [facility] Comment on above: Performed By: #### L 100.0100 ####[facility] [address] [place], [address] MCV (RBC) [Entitic vol] 103.5 fL High 80-94 [facility] Comment on above: Performed By: #### L 100.0100 ####[facility] [address] [place], [address] Monocytes/100 WBC (Bld) 7.8 % Normal 0-10 [facility] Comment on above: Performed By: #### L 100.0100 ####[facility] [address] [place], [address] Neutrophils/100 WBC (Bld) 59.8 % Normal 47-70 [facility] Comment on above: Performed By: #### L 100.0100 ####[facility] [address] [place], [address] Nucleated RBC (Bld) [#/Vol] 0 10*3/uL Normal 0-5 [facility] Comment on above: Performed By: #### L 100.0100 ####[facility] [address] [place], [address] Platelet mean volume (Bld) [Entitic vol] 10.0 fL Normal 6.2-12.0 [facility] Comment on above: Performed By: #### L 100.0100 ####[facility] [address] [place], [address] Platelets (Bld) [#/Vol] 115 10*3/uL Low 150-450 [facility] Comment on above: Performed By: #### L 100.0100 ####[facility] [address] [place], [address] RBC (Bld) [#/Vol] 2.59 10*6/uL Low 4.6-6.2 [facility] Comment on above: Performed By: #### L 100.0100 ####[facility] [address] [place], [address] RDW SD 63.8 fl High 35.1-43.9 [facility] Comment on above: Performed By: #### L 100.0100 ####[facility] [address] [place], [address] WBC (Bld) [#/Vol] 3.1 10*3/uL Low 4.4-11.0 [facility] Comment on above: Performed By: #### L 100.0100 ####[facility] [address] [facility] [place], [address] Eosinophil percentageOrdered By: Herbert Toussaint on 10-05-2024 Eosinophils/100 WBC (Bld) 8.4 % High 0-5 [facility] Erythrocyte distribution wid th ratioOrdered By: Herbert Toussaint on 10-05-2024 Erythrocyte distribution width (RBC) [Ratio] 17.5 % High 11.6-14.6 [facility] Erythrocyte distribution wid th standard deviationOrdered By: [facility] on 10-05-2024 Erythrocyte distribution width (RBC) [Entitic vol] 63.8 fL High 35.1-43.9 [facility] Hematocrit Auto (Bld) [Volum e fraction]Ordered By: [facility] on 10-05-2024 Hematocrit (Bld) [Volume fraction] 26.8 % Low 40-54 [facility] Hemoglobin measurementOrdere d By: Herbert Toussaint on 10-05-2024 Hemoglobin (Bld) [Mass/Vol] 8.2 g/dL Low 13.0-16.5 [facility] Immature granulocytes/100 WB C Auto (Bld)Ordered By: Herbert Toussaint on 10-05-2024 Immature granulocytes/100 WBC (Bld) 0.600 % 0.0-0.9 [facility] Comment on above: IG% - Immature Granu locytes (promyelocytes, myelocytes and metamyelocytes) > 1% indicates that a LEFT SHIFT is Present. Lymphocytes Auto (Unsp spec) [#/Vol]Ordered By: Herbert Toussaint on 10-05-2024 Lymphocytes (Bld) [#/Vol] 0.71 10*3/uL Low 0.83-4.51 [facility] Lymphocytes/100 WBC Auto (Un sp spec)Ordered By: Herbert Toussaint on 10-05-2024 Lymphocytes/100 WBC (Bld) 23.1 % 19-41 [facility] MCV (mean corpuscular volume ) determinationOrdered By: Herbert Toussaint on 10-05-2024 MCV (RBC) [Entitic vol] 103.5 fL High 80-94 [facility] Mean corpuscular hemoglobin (MCH) determinationOrdered By: Herbert Toussaint on 10-05-2024 MCH (RBC) [Entitic mass] 31.7 pg 27.0-32.0 [facility] Mean corpuscular hemoglobin concentration (MCHC) determinationOrdered By: Herbert Toussaint on 10-05-2024 MCHC (RBC) [Mass/Vol] 30.6 g/dL Low 32-36 [facility] Mean platelet volume determi nationOrdered By: Herbert Toussaint on 10-05-2024 Platelet mean volume (Bld) [Entitic vol] 10.0 fL 6.2-12.0 [facility] Monocyte percentageOrdered B y: Herbert Toussaint on 10-05-2024 Monocytes/100 WBC (Bld) 7.8 % 0-10 [facility] Neutrophil percentageOrdered By: Herbert Toussaint on 10-05-2024 Neutrophils/100 WBC (Bld) 59.8 % 47-70 [facility] Nucleated red blood cell per centageOrdered By: Herbert Toussaint on 10-05-2024 Nucleated RBC/100 WBC (Bld) [Ratio] 0 % 0-5 [facility] Platelet countOrdered By: Arnel Toussaint on 10-05-2024 Platelets (Bld) [#/Vol] 115 10*3/uL Low 150-450 [facility] RBC Auto (Bld) [#/Vol]Ordere d By: Herbert Toussaint on 10-05-2024 RBC (Bld) [#/Vol] 2.59 10*6/uL Low 4.6-6.2 [facility] White blood cell (WBC) count Ordered By: Herbert Toussaint on 10-05-2024 WBC (Bld) [#/Vol] 3.1 10*3/uL Low 4.4-11.0 [facility] OT Functional Capacity Evalo n 10-04-2024 OT Functional Capacity Eval Normal [facility] Pathologist review Mejia (Unsp spec) [Interp]Ordered By: Herbert Toussaint on 09-28-2024 Differential Pathologist's Review May [facility] CBC W/Diff, Automatedon 09-09 Absolute Lymph 0.50 X10 3/uL Low 0.83-4.51 [facility] Comment on above: Performed By: #### L 503.6550, L100.0100, L503.6030 ####[facility] [address] [place], [address] Absolute Neut 2.1 X10 3/uL Normal 2.0-7.7 [facility] Comment on above: Performed By: #### L 503.6550, L100.0100, L503.6030 ####[facility] [address] [place], [address] Basophils/100 WBC (Bld) 0.3 % Normal 0-1 [facility] Comment on above: Performed By: #### L 503.6550, L100.0100, L503.6030 ####[facility] [address] [place], [address] Eosinophils/100 WBC (Bld) 5.0 % Normal 0-5 [facility] Comment on above: Performed By: #### L 503.6550, L100.0100, L503.6030 ####[facility] [address] [place], [address] Erythrocyte distribution width (RBC) [Ratio] 16.2 % High 11.6-14.6 [facility] Comment on above: Performed By: #### L 503.6550, L100.0100, L503.6030 ####[facility] [address] [place], [address] Hematocrit (Bld) [Volume fraction] 28.7 % Low 40-54 [facility] Comment on above: Performed By: #### L 503.6550, L100.0100, L503.6030 ####[facility] [address] [place], [address] Hemoglobin (Bld) [Mass/Vol] 8.8 g/dL Low 13.0-16.5 [facility] Comment on above: Performed By: #### L 503.6550, L100.0100, L503.6030 ####[facility] [address] [place], [address] IG% 0.300 Normal 0.0-0.9 [facility] Comment on above: Result Comment: IG% - Immature Granulocytes (promyelocytes, myelocytes andmetamyelocytes) > 1% indicates that a LEFT SHIFT is Present. Performed By: #### L 503.6550, L100.0100, L503.6030 ####[facility] [address] [place], [address] Lymphocytes/100 WBC (Bld) 16.6 % Low 19-41 [facility] Comment on above: Performed By: #### L 503.6550, L100.0100, L503.6030 ####[facility] [address] [place], [address] MCH (RBC) [Entitic mass] 31.7 pg Normal 27.0-32.0 [facility] Comment on above: Performed By: #### L 503.6550, L100.0100, L503.6030 ####[facility] [address] [place], [address] MCHC (RBC) [Mass/Vol] 30.7 g/dL Low 32-36 [facility] Comment on above: Performed By: #### L 503.6550, L100.0100, L503.6030 ####[facility] [address] [place], [address] MCV (RBC) [Entitic vol] 103.2 fL High 80-94 [facility] Comment on above: Performed By: #### L 503.6550, L100.0100, L503.6030 ####[facility] [address] [place], [address] Monocytes/100 WBC (Bld) 7.3 % Normal 0-10 [facility] Comment on above: Performed By: #### L 503.6550, L100.0100, L503.6030 ####[facility] [address] [place], [address] Neutrophils/100 WBC (Bld) 70.5 % High 47-70 [facility] Comment on above: Performed By: #### L 503.6550, L100.0100, L503.6030 ####[facility] [address] [place], [address] Nucleated RBC (Bld) [#/Vol] 0 10*3/uL Normal 0-5 [facility] Comment on above: Performed By: #### L 503.6550, L100.0100, L503.6030 ####[facility] [address] [place], [address] Platelet mean volume (Bld) [Entitic vol] 11.7 fL Normal 6.2-12.0 [facility] Comment on above: Performed By: #### L 503.6550, L100.0100, L503.6030 ####[facility] [address] [place], [address] Platelets (Bld) [#/Vol] 145 10*3/uL Low 150-450 [facility] Comment on above: Performed By: #### L 503.6550, L100.0100, L503.6030 ####[facility] [address] [place], [address] RBC (Bld) [#/Vol] 2.78 10*6/uL Low 4.6-6.2 [facility] Comment on above: Performed By: #### L 503.6550, L100.0100, L503.6030 ####[facility] [address] [place], [address] RDW SD 62.1 fl High 35.1-43.9 [facility] Comment on above: Performed By: #### L 503.6550, L100.0100, L503.6030 ####[facility] [address] [place], [address] WBC (Bld) [#/Vol] 3.0 10*3/uL Low 4.4-11.0 [facility] Comment on above: Performed By: #### L 503.6550, L100.0100, L503.6030 ####[facility] [address] [place], [address] Calculated total iron bindin g capacityOrdered By: Herbert Toussaint on 09-21-2024 Total Iron Binding Capacity 300 ug/dL 250-450 [facility] Ferritinon 09-21-2024 Ferritin [Mass/Vol] 41 ng/mL Normal 37-417 [facility] Comment on above: Performed By: #### L 503.6550, L100.0100, L503.6030 ####[facility] [address] [place], [address] Iron (Unsp spec) [Mass/Mass] Ordered By: Herbert Toussaint on 09-21-2024 Iron [Mass/Vol] 46 ug/dL Low 65-175 [facility] Iron saturation [Mass fracti on]Ordered By: Herbert Toussaint on 09-21-2024 Iron Saturation 15.0 % 9-55 [facility] Iron+Iron Binding Capacityon 09-21-2024 Iron [Mass/Vol] 46 ug/dL Low 65-175 [facility] Comment on above: Performed By: #### L 503.6550, L100.0100, L503.6030 ####[facility] [address] [place], [address] IRON SATURATION 15.0 Normal 9-55 [facility] Comment on above: Performed By: #### L 503.6550, L100.0100, L503.6030 ####[facility] [address] [place], [address] TIBC 300 ug/dL Normal 250-450 [facility] Comment on above: Performed By: #### L 503.6550, L100.0100, L503.6030 ####[facility] [address] [place], [address] UIBC 254 ug/dL Normal 228-428 [facility] Comment on above: Performed By: #### L 503.6550, L100.0100, L503.6030 ####[facility] [address] [place], [address] No Panel InformationOrdered By: Herbert Toussaint on 09-21-2024 Unsaturated Iron Binding Capacity 254 ug/dL 228-428 [facility] Oncology Visit Reporton 09-09 Oncology Visit Report Normal [facility] Serum or plasma ferritin hillary surement (mass/volume)Ordered By: Herbert Toussaint on 09-21-2024 Ferritin [Mass/Vol] 41 ng/mL 37-417 [facility] Hypochromia Ql (Bld)Ordered By: Herbert Tousasint on 09-14-2024 Hypochromasia 1+ [facility] Laboratory - Hematology and Cell countsOrdered By: Herbert Toussaint on 09-14-2024 Anisocytosis Ql (Bld) 2+ [facility] CBC W/Diff, Automatedon 08-13 Anisocytosis Ql (Bld) RARE Normal [facility] Comment on above: Performed By: #### L 100.0100 ####[facility] [address] [place], [address] POLYCHROMASIA RARE Normal [facility] Comment on above: Performed By: #### L 100.0100 ####[facility] [address] [place], [address] Polychromasia LM Ql (Bld)Ord ered By: Herbert Toussaint on 09-07-2024 Polychromasia RARE [facility] CBC W/Diff, Automatedon 08-13 PATH REV Reviewed Normal [facility] Comment on above: Result Comment: Panc ytopenia.Leukopenia and neutropenia.Macrocytic anemia.MILD Thrombocytopenia.Clinical correlation necessary.Rajiv Jean Baptiste M.D. 09/01/24 AMENDED REPORT 09/01/24 1343 PATH REV previously reported as: November Performed By: #### L 100.0100 ####[facility] [address] [place], [place], [address] Manual differential comment Mejia (Bld) [Interp]Ordered By: Herbert Toussaint on 08-31-2024 Differential Comment COMMENT [facility] Comment on above: LYMPHOPENIA. Platelets LM Ql (Bld)Ordered By: Herbert Toussaint on 08-31-2024 Platelet Estimate SLT DEC ADEQ [facility] Pulmonary Visit Reporton Pulmonary Visit Report Normal [facility] CBC W/Diff, Automatedon 08-12 Absolute Lymph 0.63 X10 3/uL Low 0.83-4.51 [facility] Comment on above: Performed By: #### L 503.6030, L503.6550, L100.0100 ####[facility] [address] [place], [address] Absolute Neut 1.9 X10 3/uL Low 2.0-7.7 [facility] Comment on above: Performed By: #### L 503.6030, L503.6550, L100.0100 ####[facility] [address] [place], [address] Basophils/100 WBC (Bld) 0.7 % Normal 0-1 [facility] Comment on above: Performed By: #### L 503.6030, L503.6550, L100.0100 ####[facility] [address] [place], [address] Eosinophils/100 WBC (Bld) 7.1 % High 0-5 [facility] Comment on above: Performed By: #### L 503.6030, L503.6550, L100.0100 ####[facility] [address] [place], [address] Erythrocyte distribution width (RBC) [Ratio] 15.8 % High 11.6-14.6 [facility] Comment on above: Performed By: #### L 503.6030, L503.6550, L100.0100 ####[facility] [address] [place], [address] Hematocrit (Bld) [Volume fraction] 28.9 % Low 40-54 [facility] Comment on above: Performed By: #### L 503.6030, L503.6550, L100.0100 ####[facility] [address] [place], [address] Hemoglobin (Bld) [Mass/Vol] 8.7 g/dL Low 13.0-16.5 [facility] Comment on above: Performed By: #### L 503.6030, L503.6550, L100.0100 ####[facility] [address] [place], [address] IG% 0.300 Normal 0.0-0.9 [facility] Comment on above: Result Comment: IG% - Immature Granulocytes (promyelocytes, myelocytes andmetamyelocytes) > 1% indicates that a LEFT SHIFT is Present. Performed By: #### L 503.6030, L503.6550, L100.0100 ####[facility] [address] [place], [address] Lymphocytes/100 WBC (Bld) 21.4 % Normal 19-41 [facility] Comment on above: Performed By: #### L 503.6030, L503.6550, L100.0100 ####[facility] [address] [place], [address] MCH (RBC) [Entitic mass] 31.4 pg Normal 27.0-32.0 [facility] Comment on above: Performed By: #### L 503.6030, L503.6550, L100.0100 ####[facility] [address] [place], [address] MCHC (RBC) [Mass/Vol] 30.1 g/dL Low 32-36 [facility] Comment on above: Performed By: #### L 503.6030, L503.6550, L100.0100 ####[facility] [address] [place], [address] MCV (RBC) [Entitic vol] 104.3 fL High 80-94 [facility] Comment on above: Performed By: #### L 503.6030, L503.6550, L100.0100 ####[facility] [address] [place], [address] Monocytes/100 WBC (Bld) 7.1 % Normal 0-10 [facility] Comment on above: Performed By: #### L 503.6030, L503.6550, L100.0100 ####[facility] [address] [place], [address] Neutrophils/100 WBC (Bld) 63.4 % Normal 47-70 [facility] Comment on above: Performed By: #### L 503.6030, L503.6550, L100.0100 ####[facility] [address] [place], [address] Nucleated RBC (Bld) [#/Vol] 0 10*3/uL Normal 0-5 [facility] Comment on above: Performed By: #### L 503.6030, L503.6550, L100.0100 ####[facility] [address] [place], [address] Platelet mean volume (Bld) [Entitic vol] 10.1 fL Normal 6.2-12.0 [facility] Comment on above: Performed By: #### L 503.6030, L503.6550, L100.0100 ####[facility] [address] [place], [address] Platelets (Bld) [#/Vol] 112 10*3/uL Low 150-450 [facility] Comment on above: Performed By: #### L 503.6030, L503.6550, L100.0100 ####[facility] [address] [place], [address] RBC (Bld) [#/Vol] 2.77 10*6/uL Low 4.6-6.2 [facility] Comment on above: Performed By: #### L 503.6030, L503.6550, L100.0100 ####[facility] [address] [place], [address] RDW SD 60.5 fl High 35.1-43.9 [facility] Comment on above: Performed By: #### L 503.6030, L503.6550, L100.0100 ####[facility] [address] [place], [address] WBC (Bld) [#/Vol] 2.9 10*3/uL Low 4.4-11.0 [facility] Comment on above: Performed By: #### L 503.6030, L503.6550, L100.0100 ####[facility] [address] [place], [address] Ferritinon 08-24-2024 Ferritin [Mass/Vol] 29 ng/mL Normal 26-388 [facility] Comment on above: Performed By: #### L 503.6030, L503.6550, L100.0100 ####[facility] [address] [place], [address] Iron+Iron Binding Capacityon 08-24-2024 Iron [Mass/Vol] 42 ug/dL Low 65-175 [facility] Comment on above: Performed By: #### L 503.6030, L503.6550, L100.0100 ####[facility] [address] [place], [address] IRON SATURATION 11.2 Low 15.0-55.0 [facility] Comment on above: Performed By: #### L 503.6030, L503.6550, L100.0100 ####[facility] [address] [place], [address] TIBC 375 ug/dL Normal 250-450 [facility] Comment on above: Performed By: #### L 503.6030, L503.6550, L100.0100 ####[facility] [address] [place], [address] Oncology Visit Reporton 08-12 Oncology Visit Report Normal [facility] CBC W/Diff, Automatedon Absolute Lymph 0.66 X10 3/uL Low 0.83-4.51 [facility] Comment on above: Performed By: #### L 100.0100 ####[facility] [address] [place], [address] Absolute Neut 2.6 X10 3/uL Normal 2.0-7.7 [facility] Comment on above: Performed By: #### L 100.0100 ####[facility] [address] [place], [address] Basophils/100 WBC (Bld) 0.5 % Normal 0-1 [facility] Comment on above: Performed By: #### L 100.0100 ####[facility] [address] [place], [address] Eosinophils/100 WBC (Bld) 5.7 % High 0-5 [facility] Comment on above: Performed By: #### L 100.0100 ####[facility] [address] [place], [address] Erythrocyte distribution width (RBC) [Ratio] 16.6 % High 11.6-14.6 [facility] Comment on above: Performed By: #### L 100.0100 ####[facility] [address] [place], [address] Hematocrit (Bld) [Volume fraction] 30.5 % Low 40-54 [facility] Comment on above: Performed By: #### L 100.0100 ####[facility] [address] [place], [address] Hemoglobin (Bld) [Mass/Vol] 9.2 g/dL Low 13.0-16.5 [facility] Comment on above: Performed By: #### L 100.0100 ####[facility] [address] [place], [address] IG% 0.300 Normal 0.0-0.9 [facility] Comment on above: Result Comment: IG% - Immature Granulocytes (promyelocytes, myelocytes andmetamyelocytes) > 1% indicates that a LEFT SHIFT is Present. Performed By: #### L 100.0100 ####[facility] [address] [place], [address] Lymphocytes/100 WBC (Bld) 17.9 % Low 19-41 [facility] Comment on above: Performed By: #### L 100.0100 ####[facility] [address] [place], [address] MCH (RBC) [Entitic mass] 31.5 pg Normal 27.0-32.0 [facility] Comment on above: Performed By: #### L 100.0100 ####[facility] [address] [place], [address] MCHC (RBC) [Mass/Vol] 30.2 g/dL Low 32-36 [facility] Comment on above: Performed By: #### L 100.0100 ####[facility] [address] [place], [address] MCV (RBC) [Entitic vol] 104.5 fL High 80-94 [facility] Comment on above: Performed By: #### L 100.0100 ####[facility] [address] [place], [address] Monocytes/100 WBC (Bld) 6.5 % Normal 0-10 [facility] Comment on above: Performed By: #### L 100.0100 ####[facility] [address] [place], [address] Neutrophils/100 WBC (Bld) 69.1 % Normal 47-70 [facility] Comment on above: Performed By: #### L 100.0100 ####[facility] [address] [place], [address] Nucleated RBC (Bld) [#/Vol] 0 10*3/uL Normal 0-5 [facility] Comment on above: Performed By: #### L 100.0100 ####[facility] [address] [place], [address] Platelet mean volume (Bld) [Entitic vol] 9.5 fL Normal 6.2-12.0 [facility] Comment on above: Performed By: #### L 100.0100 ####[facility] [address] [place], [address] Platelets (Bld) [#/Vol] 120 10*3/uL Low 150-450 [facility] Comment on above: Performed By: #### L 100.0100 ####[facility] [address] [place], [address] RBC (Bld) [#/Vol] 2.92 10*6/uL Low 4.6-6.2 [facility] Comment on above: Performed By: #### L 100.0100 ####[facility] [address] [place], [address] RDW SD 64.6 fl High 35.1-43.9 [facility] Comment on above: Performed By: #### L 100.0100 ####[facility] [address] [place], [address] WBC (Bld) [#/Vol] 3.7 10*3/uL Low 4.4-11.0 [facility] Comment on above: Performed By: #### L 100.0100 ####[facility] [address] [place], [address] CBC W/Diff, Automatedon 01-3 0-2025 Absolute Lymph 0.66 X10 3/uL Low 0.83-4.51 [facility] Comment on above: Performed By: #### L 100.0100 ####[facility] [address] [place], [address] Absolute Neut 2.4 X10 3/uL Normal 2.0-7.7 [facility] Comment on above: Performed By: #### L 100.0100 ####[facility] [address] [place], [address] Basophils/100 WBC (Bld) 0.6 % Normal 0-1 [facility] Comment on above: Performed By: #### L 100.0100 ####[facility] [address] [place], [address] Eosinophils/100 WBC (Bld) 6.1 % High 0-5 [facility] Comment on above: Performed By: #### L 100.0100 ####[facility] [address] [place], [address] Erythrocyte distribution width (RBC) [Ratio] 16.9 % High 11.6-14.6 [facility] Comment on above: Performed By: #### L 100.0100 ####[facility] [address] [place], [address] Hematocrit (Bld) [Volume fraction] 28.9 % Low 40-54 [facility] Comment on above: Performed By: #### L 100.0100 ####[facility] [address] [place], [address] Hemoglobin (Bld) [Mass/Vol] 9.0 g/dL Low 13.0-16.5 [facility] Comment on above: Performed By: #### L 100.0100 ####[facility] [address] [place], [address] IG% 0.600 Normal 0.0-0.9 [facility] Comment on above: Result Comment: IG% - Immature Granulocytes (promyelocytes, myelocytes andmetamyelocytes) > 1% indicates that a LEFT SHIFT is Present. Performed By: #### L 100.0100 ####[facility] [address] [place], [address] Lymphocytes/100 WBC (Bld) 18.3 % Low 19-41 [facility] Comment on above: Performed By: #### L 100.0100 ####[facility] [address] [place], [address] MCH (RBC) [Entitic mass] 31.9 pg Normal 27.0-32.0 [facility] Comment on above: Performed By: #### L 100.0100 ####[facility] [address] [place], [address] MCHC (RBC) [Mass/Vol] 31.1 g/dL Low 32-36 [facility] Comment on above: Performed By: #### L 100.0100 ####[facility] [address] [place], [address] MCV (RBC) [Entitic vol] 102.5 fL High 80-94 [facility] Comment on above: Performed By: #### L 100.0100 ####[facility] [address] [place], [address] Monocytes/100 WBC (Bld) 8.0 % Normal 0-10 [facility] Comment on above: Performed By: #### L 100.0100 ####[facility] [address] [place], [address] Neutrophils/100 WBC (Bld) 66.4 % Normal 47-70 [facility] Comment on above: Performed By: #### L 100.0100 ####[facility] [address] [place], [address] Nucleated RBC (Bld) [#/Vol] 0 10*3/uL Normal 0-5 [facility] Comment on above: Performed By: #### L 100.0100 ####[facility] [address] [place], [address] Platelet mean volume (Bld) [Entitic vol] 11.3 fL Normal 6.2-12.0 [facility] Comment on above: Performed By: #### L 100.0100 ####[facility] [address] [place], [address] Platelets (Bld) [#/Vol] 146 10*3/uL Low 150-450 [facility] Comment on above: Performed By: #### L 100.0100 ####[facility] [address] [place], [address] RBC (Bld) [#/Vol] 2.82 10*6/uL Low 4.6-6.2 [facility] Comment on above: Performed By: #### L 100.0100 ####[facility] [address] [place], [address] RDW SD 63.3 fl High 35.1-43.9 [facility] Comment on above: Performed By: #### L 100.0100 ####[facility] [address] [place], [address] WBC (Bld) [#/Vol] 3.6 10*3/uL Low 4.4-11.0 [facility] Comment on above: Performed By: #### L 100.0100 ####[facility] [address] [place], [address] Operative Reporton Operative Report Normal [facility] CBC W/Diff, Automatedon 07-13 Absolute Lymph 0.70 X10 3/uL Low 0.83-4.51 [facility] Comment on above: Performed By: #### L 100.0100 ####[facility] [address] [place], [address] Absolute Neut 1.9 X10 3/uL Low 2.0-7.7 [facility] Comment on above: Performed By: #### L 100.0100 ####[facility] [address] [place], [address] Basophils/100 WBC (Bld) 0.6 % Normal 0-1 [facility] Comment on above: Performed By: #### L 100.0100 ####[facility] [address] [place], [address] Eosinophils/100 WBC (Bld) 7.1 % High 0-5 [facility] Comment on above: Performed By: #### L 100.0100 ####[facility] [address] [place], [address] Erythrocyte distribution width (RBC) [Ratio] 18.2 % High 11.6-14.6 [facility] Comment on above: Performed By: #### L 100.0100 ####[facility] [address] [place], [address] Hematocrit (Bld) [Volume fraction] 27.0 % Low 40-54 [facility] Comment on above: Performed By: #### L 100.0100 ####[facility] [address] [place], [address] Hemoglobin (Bld) [Mass/Vol] 8.1 g/dL Low 13.0-16.5 [facility] Comment on above: Performed By: #### L 100.0100 ####[facility] [address] [place], [address] IG% 0.300 Normal 0.0-0.9 [facility] Comment on above: Result Comment: IG% - Immature Granulocytes (promyelocytes, myelocytes andmetamyelocytes) > 1% indicates that a LEFT SHIFT is Present. Performed By: #### L 100.0100 ####[facility] [address] [place], [address] Lymphocytes/100 WBC (Bld) 22.4 % Normal 19-41 [facility] Comment on above: Performed By: #### L 100.0100 ####[facility] [address] [place], [address] MCH (RBC) [Entitic mass] 32.5 pg High 27.0-32.0 [facility] Comment on above: Performed By: #### L 100.0100 ####[facility] [address] [place], [address] MCHC (RBC) [Mass/Vol] 30.0 g/dL Low 32-36 [facility] Comment on above: Performed By: #### L 100.0100 ####[facility] [address] [place], [address] MCV (RBC) [Entitic vol] 108.4 fL High 80-94 [facility] Comment on above: Performed By: #### L 100.0100 ####[facility] [address] [place], [address] Monocytes/100 WBC (Bld) 8.3 % Normal 0-10 [facility] Comment on above: Performed By: #### L 100.0100 ####[facility] [address] [place], [address] Neutrophils/100 WBC (Bld) 61.3 % Normal 47-70 [facility] Comment on above: Performed By: #### L 100.0100 ####[facility] [address] [place], [address] Nucleated RBC (Bld) [#/Vol] 0 10*3/uL Normal 0-5 [facility] Comment on above: Performed By: #### L 100.0100 ####[facility] [address] [place], [address] Platelet mean volume (Bld) [Entitic vol] 10.6 fL Normal 6.2-12.0 [facility] Comment on above: Performed By: #### L 100.0100 ####[facility] [address] [place], [address] Platelets (Bld) [#/Vol] 135 10*3/uL Low 150-450 [facility] Comment on above: Performed By: #### L 100.0100 ####[facility] [address] [place], [address] RBC (Bld) [#/Vol] 2.49 10*6/uL Low 4.6-6.2 [facility] Comment on above: Performed By: #### L 100.0100 ####[facility] [address] [place], [address] RDW SD 71.8 fl High 35.1-43.9 [facility] Comment on above: Performed By: #### L 100.0100 ####[facility] [address] [place], [address] WBC (Bld) [#/Vol] 3.1 10*3/uL Low 4.4-11.0 [facility] Comment on above: Performed By: #### L 100.0100 ####[facility] [address] [place], [address] Office Visit Reporton 2024 Office Visit Report Normal [facility] BRCon 07-27-2024 RC Normal [facility] Comment on above: Result Comment: [id number] OP RC TRANSFUSED 07/28/24 0920 Performed By: #### B TS, [facility] ####[facility] [address] [place], [address] CBC W/Diff, Automatedon 07-12 Absolute Lymph 0.63 X10 3/uL Low 0.83-4.51 [facility] Comment on above: Performed By: #### L 100.0100 ####[facility] [address] [place], [address] Absolute Neut 1.7 X10 3/uL Low 2.0-7.7 [facility] Comment on above: Performed By: #### L 100.0100 ####[facility] [address] [place], [address] Basophils/100 WBC (Bld) 0.4 % Normal 0-1 [facility] Comment on above: Performed By: #### L 100.0100 ####[facility] [address] [place], [address] Eosinophils/100 WBC (Bld) 7.3 % High 0-5 [facility] Comment on above: Performed By: #### L 100.0100 ####[facility] [address] [place], [address] Erythrocyte distribution width (RBC) [Ratio] 16.8 % High 11.6-14.6 [facility] Comment on above: Performed By: #### L 100.0100 ####[facility] [address] [place], [address] Hematocrit (Bld) [Volume fraction] 24.9 % Low 40-54 [facility] Comment on above: Performed By: #### L 100.0100 ####[facility] [address] [place], [address] Hemoglobin (Bld) [Mass/Vol] 7.6 g/dL Low 13.0-16.5 [facility] Comment on above: Performed By: #### L 100.0100 ####[facility] [address] [place], [address] IG% 0.400 Normal 0.0-0.9 [facility] Comment on above: Result Comment: IG% - Immature Granulocytes (promyelocytes, myelocytes andmetamyelocytes) > 1% indicates that a LEFT SHIFT is Present. Performed By: #### L 100.0100 ####[facility] [address] [place], [address] Lymphocytes/100 WBC (Bld) 22.9 % Normal 19-41 [facility] Comment on above: Performed By: #### L 100.0100 ####[facility] [address] [place], [address] MCH (RBC) [Entitic mass] 32.2 pg High 27.0-32.0 [facility] Comment on above: Performed By: #### L 100.0100 ####[facility] [address] [place], [address] MCHC (RBC) [Mass/Vol] 30.5 g/dL Low 32-36 [facility] Comment on above: Performed By: #### L 100.0100 ####[facility] [address] [place], [address] MCV (RBC) [Entitic vol] 105.5 fL High 80-94 [facility] Comment on above: Performed By: #### L 100.0100 ####[facility] [address] [place], [address] Monocytes/100 WBC (Bld) 8.0 % Normal 0-10 [facility] Comment on above: Performed By: #### L 100.0100 ####[facility] [address] [place], [address] Neutrophils/100 WBC (Bld) 61.0 % Normal 47-70 [facility] Comment on above: Performed By: #### L 100.0100 ####[facility] [address] [place], [address] Nucleated RBC (Bld) [#/Vol] 0 10*3/uL Normal 0-5 [facility] Comment on above: Performed By: #### L 100.0100 ####[facility] [address] [place], [address] Platelet mean volume (Bld) [Entitic vol] 11.2 fL Normal 6.2-12.0 [facility] Comment on above: Performed By: #### L 100.0100 ####[facility] [address] [place], [address] Platelets (Bld) [#/Vol] 131 10*3/uL Low 150-450 [facility] Comment on above: Performed By: #### L 100.0100 ####[facility] [address] [place], [address] RBC (Bld) [#/Vol] 2.36 10*6/uL Low 4.6-6.2 [facility] Comment on above: Performed By: #### L 100.0100 ####[facility] [address] [place], [address] RDW SD 63.9 fl High 35.1-43.9 [facility] Comment on above: Performed By: #### L 100.0100 ####[facility] [address] [place], [address] WBC (Bld) [#/Vol] 2.8 10*3/uL Low 4.4-11.0 [facility] Comment on above: Performed By: #### L 100.0100 ####[facility] [address] [place], [address] Oncology Visit Reporton 07-12 Oncology Visit Report Normal [facility] Type AND Screenon 07-27-2024 ABO and Rh group Nom (Bld) Blood group O Rh(D) positive Normal [facility] Comment on above: Order Comment: N007/12 02/02 0900NYA Performed By: #### B NARINDER, BR ####[facility] [address] [place], [address] Miscellaneous Lab Procedureo n 07-24-2024 [facility] LAB TEST SEE PATHOLOGY REPORT Normal [facility] Comment on above: Order Comment: [id number] FLOW Performed By: #### L 801.1541, L801.1543, L801.1545 ####[facility] [address] [place], [address] Miscellaneous Lab Procedure 2on 07-24-2024 [facility] LAB TEST 2 SEE PATHOLOGY REPORT Normal [facility] Comment on above: Order Comment: [id number] CYTOGENETICS Performed By: #### L 801.1541, L801.1543, L801.1545 ####[facility] [address] [place], [address] Miscellaneous Lab Procedure 3on 07-24-2024 [facility] LAB TEST 3 SEE PATHOLOGY REPORT Normal [facility] Comment on above: Order Comment: [id number] MDS (B24-30) Performed By: #### L 801.1541, L801.1543, L801.1545 ####[facility] [address] [place], [address] Erythropoietinon 07-21-2024 ERYTHROPOIETIN 348.6 mIU/mL High 2.6-18.5 [facility] Comment on above: Order Comment: PLEAS E ADD TO BLOOD IN LAB. THANK YOU!! Result Comment: [employer] DxI 800 Immunoassay SystemValues obtained with different assay methods or kits cannotbe used interchangeably. Results cannot be interpreted asabsolute evidence of the presence or absence of malignantdisease.Performed at: [address] [id number] Director: Jong Farmer PhD, Phone: [phone] Performed By: #### L 5830.7418 ####[facility] [address] [place], [place], [address] CBC W/Diff, Automatedon PATH REV Reviewed Normal [facility] Comment on above: Order Comment: DR ARUNA BROWN ORDERED TSHALL OTHER LABS ORDERED BY DR TOUSSAINT Result Comment: Panc ytopenia.Leukopenia and neutropenia.Macrocytic anemia.MILD Thrombocytopenia.Clinical correlation necessary.Rajiv Jean Baptiste M.D. 07/20/24 AMENDED REPORT 07/20/24 1002 PATH REV previously reported as: Minda valdes Performed By: #### L 100.0100, L503.6030, L503.0105, L503.6550 ####[facility] [address] [place], [place], [id number] BRCon 07-19-2024 RC Normal [facility] Comment on above: Result Comment: [id number] OP RC TRANSFUSED 07/19/24 1329 Performed By: #### B RC, BTS ####[facility] [address] [place], [place], [address] Erythropoietin (EPO) QnOrder ed By: Herbert Toussaint on 07-19-2024 Erythropoietin 348.6 mIU/mL High 2.6-18.5 [facility] Comment on above: [employer] el DxI 800 Immunoassay SystemValues obtained with different assay methods or kits cannotbe used interchangeably. Results cannot be interpreted asabsolute evidence of the presence or absence of malignantdisease.Performed at: [facility] [id number] Director: Jong Farmer PhD, Phone: [phone] Ferritinon 07-19-2024 Ferritin [Mass/Vol] 30 ng/mL Normal 26-388 [facility] Comment on above: Order Comment: DR ARUNA BROWN ORDERED TSHALL OTHER LABS ORDERED BY DR TOUSSAINTOrder Date: 07/18/24Order Info: 3016-3 - TSH Performed By: #### L 100.0100, L503.6030, L503.0105, L503.6550 ####[facility] [address] [place], [place], [address] Iron+Iron Binding Capacityon 07-19-2024 Iron [Mass/Vol] 40 ug/dL Low 65-175 [facility] Comment on above: Order Comment: DR ARUNA BROWN ORDERED TSHALL OTHER LABS ORDERED BY DR TOUSSAINTOrder Date: 07/18/24Order Info: 3016-3 - TSH Performed By: #### L 100.0100, L503.6030, L503.0105, L503.6550 ####[facility] [address] [place], [address] IRON SATURATION 14.5 Low 15.0-55.0 [facility] Comment on above: Order Comment: DR ARUNA BROWN ORDERED TSHALL OTHER LABS ORDERED BY DR TOUSSAINTOrder Date: 07/18/24Order Info: 3015-3 - TSH Performed By: #### L 100.0100, L503.6030, L503.0105, L503.6550 ####[facility] [address] [place], [address] TIBC 276 ug/dL Normal 250-450 [facility] Comment on above: Order Comment: DR ARUNA BROWN ORDERED TSHALL OTHER LABS ORDERED BY DR TOUSSAINTOrder Date: 07/18/24Order Info: 3 - TSH Performed By: #### L 100.0100, L503.6030, L503.0105, L503.6550 ####[facility] [address] [place], [place], [address] Oncology Visit Reporton Oncology Visit Report Normal [facility] Serum or plasma erythropoiet in (EPO) measurement (units/volume)Ordered By: Herbert Toussaint on 07-19-2024 Erythropoietin (EPO) Qn 348.6 mIU/mL High 2.6-18.5 [facility] Comment on above: [employer] el DxI 800 Immunoassay SystemValues obtained with different assay methods or kits cannotbe used interchangeably. Results cannot be interpreted asabsolute evidence of the presence or absence of malignantdisease.Performed at: [address] [id number] Director: Jong Farmer PhD, Phone: [phone] Serum or plasma thyroid stim ulating hormone (TSH) measurement (units/volume)Ordered By: Angelic Monsalve on 01-08-2025 TSH Qn 1.910 uIU/mL 0.358-3.740 [facility] TSH QnOrdered By: Angelic dominguez on 07-19-2024 Thyroid Stimulating Hormone (TSH) 1.910 uIU/mL 0.358-3.740 [facility] Thyroid Stim Hormone (TSH)on 07-19-2024 TSH 1.910 uIU/mL Normal 0.358-3.740 [facility] Comment on above: Order Comment: DR ARUNA BROWN ORDERED TSHALL OTHER LABS ORDERED BY DR TOUSSAINTOrder Date: 07/18/24Order Info: 3016-3 - TSH Performed By: #### L 501.9520 ####[facility] [address] [place], [address] Type AND Screenon 07-19-2024 Ab SCREEN GEL Negative Normal [facility] Comment on above: Order Comment: 1200NYA Performed By: #### Re CHOPRA BTS ####[facility] [address] [place], [address] ABO and Rh group Nom (Bld) Blood group O Rh(D) positive Normal [facility] Comment on above: Order Comment: 1200NYA Performed By: #### Re CHOPRA BTS ####[facility] [address] [place], [address] Vitamin B12on 07-19-2024 Cobalamin (Vitamin B12) [Mass/Vol] 675 pg/mL Normal [facility] Comment on above: Order Comment: DR ARUNA BROWN ORDERED TSHALL OTHER LABS ORDERED BY DR TOUSSAINT Performed By: #### L 100.0100, L503.6030, L503.0105, L503.6550 ####[facility] [address] [place], [address] Vitamin B12 measurementOrder ed By: Herbert Toussaint on 07-19-2024 Cobalamin (Vitamin B12) [Mass/Vol] 675 pg/mL [facility] CBC W/Diff, Automatedon Anisocytosis Ql (Bld) 2+ Normal [facility] Comment on above: Performed By: #### L 100.0100 ####[facility] [address] [place], [address] HYPOCHROMASIA 1+ Normal [facility] Comment on above: Performed By: #### L 100.0100 ####[facility] [address] [place], [address] MACROCYTOSIS 2+ Normal [facility] Comment on above: Performed By: #### L 100.0100 ####[facility] [address] [place], [address] OVALOCYTE 2+ Normal [facility] Comment on above: Performed By: #### L 100.0100 ####[facility] [address] [place], [address] POLYCHROMASIA 1+ Normal [facility] Comment on above: Performed By: #### L 100.0100 ####[facility] [address] [place], [address] TEAR DROP 1+ Normal [facility] Comment on above: Performed By: #### L 100.0100 ####[facility] [address] [place], [address] PLT EST SLT DEC Normal ADEQ [facility] Comment on above: Performed By: #### L 100.0100 ####[facility] [address] [place], [address] SMEAR COMMENT SCANNED Normal [facility] Comment on above: Performed By: #### L 100.0100 ####[facility] [address] [place], [address] Dacrocytes LM Ql (Bld)Ordere d By: Herbert Toussaint on 07-13-2024 Tear Drop Cells 1+ [facility] Macrocytes Ql (Bld)Ordered B y: Herbert Breana on 07-13-2024 Macrocytosis 2+ [facility] Macrocytes detectionOrdered By: Juan Luisgumaro Toussaint on 07-13-2024 Macrocytes Ql (Bld) 2+ [facility] Ovalocyte detectionOrdered B y: Herbert Breana on 07-13-2024 Ovalocytes LM Ql (Bld) 2+ [facility] Ovalocytes LM Ql (Bld)Ordere d By: Juan Luisgumaro Toussaint on 07-13-2024 Ovalocytes 2+ [facility] Teardrop cell detectionOrder ed By: Juan Luisgumaro Toussaint on 07-13-2024 Dacrocytes LM Ql (Bld) 1+ [facility] CBC W/Diff, Automatedon 06-12 PATH REV Reviewed Normal [facility] Comment on above: Result Comment: Panc ytopenia.Leukopenia and neutropenia.Macrocytic anemia.Mild Thrombocytopenia.Clinical correlation necessary.Rajiv Jean Baptiste M.D. 07/07/24Pathologist comment added AMENDED REPORT 07/07/24 0849 PATH REV previously reported as: November Performed By: #### L 100.0100 ####[facility] [address] [place], [place], [id number] Lower GI hemoglobin IA Ql (S tl)Ordered By: Cleo Gonzalez on 06-30-2024 Stool Occult Blood (ERNESTINE) [facility] Stool Occult Blood iFOBon STOB Negative Normal [facility] Comment on above: Performed By: #### M 100.7900 ####[facility] [address] [place], [place], [id number] Absolute neutrophil countOrd ered By: Juan Luisgumaro Toussaint on 06-28-2024 Neutrophils (Bld) [#/Vol] 1.9 10*3/uL Low 2.0-7.7 [facility] Basophil percentageOrdered B y: Herbert Toussaint on 06-28-2024 Basophils/100 WBC (Bld) 0.3 % 0-1 [facility] CBC W/Diff, Automatedon 06-11 Anisocytosis Ql (Bld) 1+ Normal [facility] Comment on above: Performed By: #### L 100.0100 ####[facility] [address] [place], [address] CD45 (initial)on 06-28-2024 CD45 (initial) Normal [facility] Comment on above: Performed By: #### P CD45 ####[facility] [address] [place], [address] Decalcification bone/plaqueo n 06-28-2024 Decalcification bone/plaque Normal [facility] Comment on above: Performed By: #### P DEC ####[facility] [address] [place], [place], [id number] Eosinophil percentageOrdered By: Herbert Toussaint on 06-28-2024 Eosinophils/100 WBC (Bld) 7.2 % High 0-5 [facility] Erythrocyte distribution wid th ratioOrdered By: [facility] on 06-28-2024 Erythrocyte distribution width (RBC) [Ratio] 22.9 % High 11.6-14.6 [facility] Erythrocyte distribution wid th standard deviationOrdered By: [facility] Toussaint on 06-28-2024 Erythrocyte distribution width (RBC) [Entitic vol] 90.0 fL High 35.1-43.9 [facility] Hematocrit Auto (Bld) [Volum e fraction]Ordered By: Herbert Toussaint on 06-28-2024 Hematocrit (Bld) [Volume fraction] 25.8 % Low 40-54 [facility] Hemoglobin measurementOrdere d By: Herbert Toussaint on 06-28-2024 Hemoglobin (Bld) [Mass/Vol] 7.6 g/dL Low 13.0-16.5 [facility] Immature granulocytes/100 WB C Auto (Bld)Ordered By: Herbert Toussaint on 06-28-2024 Immature granulocytes/100 WBC (Bld) 0.300 % 0.0-0.9 [facility] Comment on above: IG% - Immature Granu locytes (promyelocytes, myelocytes and metamyelocytes) > 1% indicates that a LEFT SHIFT is Present. Laboratory - Hematology and Cell countsOrdered By: Herbert Toussaint on 06-28-2024 Anisocytosis Ql (Bld) 1+ [facility] Lymphocytes Auto (Unsp spec) [#/Vol]Ordered By: Herbert Toussaint on 06-28-2024 Lymphocytes (Bld) [#/Vol] 0.67 10*3/uL Low 0.83-4.51 [facility] Lymphocytes/100 WBC Auto (Un sp spec)Ordered By: Herbert Toussaint on 06-28-2024 Lymphocytes/100 WBC (Bld) 21.8 % 19-41 [facility] MCV (mean corpuscular volume ) determinationOrdered By: Herbert Toussaint on 06-28-2024 MCV (RBC) [Entitic vol] 107.9 fL High 80-94 [facility] Mean corpuscular hemoglobin (MCH) determinationOrdered By: Herbert Toussaint on 06-28-2024 MCH (RBC) [Entitic mass] 31.8 pg 27.0-32.0 [facility] Mean corpuscular hemoglobin concentration (MCHC) determinationOrdered By: Herbert Toussaint on 06-28-2024 MCHC (RBC) [Mass/Vol] 29.5 g/dL Low 32-36 [facility] Mean platelet volume determi nationOrdered By: Herbert Toussaint on 06-28-2024 Platelet mean volume (Bld) [Entitic vol] 9.1 fL 6.2-12.0 [facility] Miscellaneous procedureOrder ed By: Herbert Toussaint on 06-28-2024 Miscellaneous Test SEE PATHOLOGY REPORT [facility] Monocyte percentageOrdered B y: Herbert Toussaint on 06-28-2024 Monocytes/100 WBC (Bld) 7.2 % 0-10 [facility] Neutrophil percentageOrdered By: Herbert Toussaint on 06-28-2024 Neutrophils/100 WBC (Bld) 63.2 % 47-70 [facility] Nucleated red blood cell per centageOrdered By: Herbert Toussaint on 06-28-2024 Nucleated RBC/100 WBC (Bld) [Ratio] 0 % 0-5 [facility] Operative Reporton Operative Report Normal [facility] Platelet countOrdered By: Arnel Toussaint on 06-28-2024 Platelets (Bld) [#/Vol] 102 10*3/uL Low 150-450 [facility] RBC Auto (Bld) [#/Vol]Ordere d By: Herbert Breana on 06-28-2024 RBC (Bld) [#/Vol] 2.39 10*6/uL Low 4.6-6.2 [facility] White blood cell (WBC) count Ordered By: Herbert Toussaint on 06-28-2024 WBC (Bld) [#/Vol] 3.1 10*3/uL Low 4.4-11.0 [facility] Gastroenterology Visit Repor ton 06-22-2024 Gastroenterology Visit Report Normal [facility] Oncology Visit Reporton 06-11 Oncology Visit Report Normal [facility] [id number] 06-20-2024 ANTIBODY ID E Normal [facility] Comment on above: Order Comment: N108/12 08/04 @0930AMNYA Performed By: #### B [id number], [facility], BTS ####[facility] [address] [place], [address] BRCon 06-20-2024 RC Normal [facility] Comment on above: Result Comment: [id number] OP RC TRANSFUSED 06/21/24 0945 Performed By: #### Re [id number], [facility], BTS ####[facility] [address] [place], [address] CBC W/Diff, Automatedon 06-11 Anisocytosis Ql (Bld) 2+ Normal [facility] Comment on above: Performed By: #### L 100.0100 ####[facility] [address] [place], [address] SMEAR COMMENT SCANNED Normal [facility] Comment on above: Performed By: #### L 100.0100 ####[facility] [address] [place], [address] Absolute Neut Normal 2.0-7.7 [facility] Comment on above: Result Comment: DUPL ICATED ORDERS Performed By: #### L 100.0100, L503.6550, L503.6030 ####[facility] [address] [place], [address] HCT Normal 40-54 [facility] Comment on above: Result Comment: DUPL ICATED ORDERS Performed By: #### L 100.0100, L503.6550, L503.6030 ####[facility] [address] [place], [address] HGB Normal 13.0-16.5 [facility] Comment on above: Result Comment: DUPL ICATED ORDERS Performed By: #### L 100.0100, L503.6550, L503.6030 ####[facility] [address] [place], [address] MCH Normal 27.0-32.0 [facility] Comment on above: Result Comment: DUPL ICATED ORDERS Performed By: #### L 100.0100, L503.6550, L503.6030 ####[facility] [address] [place], [address] MCHC Normal 32-36 [facility] Comment on above: Result Comment: DUPL ICATED ORDERS Performed By: #### L 100.0100, L503.6550, L503.6030 ####[facility] [address] [place], [address] MCV Normal 80-94 [facility] Comment on above: Result Comment: DUPL ICATED ORDERS Performed By: #### L 100.0100, L503.6550, L503.6030 ####[facility] [address] [place], [address] NEUT% Normal 47-70 [facility] Comment on above: Result Comment: DUPL ICATED ORDERS Performed By: #### L 100.0100, L503.6550, L503.6030 ####[facility] [address] [place], [address] PLT Normal 150-450 [facility] Comment on above: Result Comment: DUPL ICATED ORDERS Performed By: #### L 100.0100, L503.6550, L503.6030 ####[facility] [address] [place], [address] RBC Normal 4.6-6.2 [facility] Comment on above: Result Comment: DUPL ICATED ORDERS Performed By: #### L 100.0100, L503.6550, L503.6030 ####[facility] [address] [place], [address] RDW CV Normal 11.6-14.6 [facility] Comment on above: Result Comment: DUPL ICATED ORDERS Performed By: #### L 100.0100, L503.6550, L503.6030 ####[facility] [address] [place], [address] RDW SD Normal 35.1-43.9 [facility] Comment on above: Result Comment: DUPL ICATED ORDERS Performed By: #### L 100.0100, L503.6550, L503.6030 ####[facility] [address] [place], [address] WBC Normal 4.4-11.0 [facility] Comment on above: Result Comment: DUPL ICATED ORDERS Performed By: #### L 100.0100, L503.6550, L503.6030 ####[facility] [address] [place], [address] Ferritinon 06-20-2024 Ferritin [Mass/Vol] 133 ng/mL Normal 26-388 [facility] Comment on above: Order Comment: PLEAS E ADD TO BLOOD IN LAB. THANK YOU!! Performed By: #### L 100.0100, L503.6550, L503.6030 ####[facility] [address] [place], [address] Iron+Iron Binding Capacityon 06-20-2024 Iron [Mass/Vol] 77 ug/dL Normal 65-175 [facility] Comment on above: Order Comment: PLEAS E ADD TO BLOOD IN LAB. THANK YOU!! Performed By: #### L 100.0100, L503.6550, L503.6030 ####[facility] [address] [place], [address] IRON SATURATION 37.0 Normal 15.0-55.0 [facility] Comment on above: Order Comment: PLEAS E ADD TO BLOOD IN LAB. THANK YOU!! Performed By: #### L 100.0100, L503.6550, L503.6030 ####[facility] [address] [place], [address] TIBC 208 ug/dL Low 250-450 [facility] Comment on above: Order Comment: PLEAS E ADD TO BLOOD IN LAB. THANK YOU!! Performed By: #### L 100.0100, L503.6550, L503.6030 ####[facility] [address] [place], [address] Type AND Screenon 06-20-2024 Ab SCREEN GEL Positive Normal [facility] Comment on above: Order Comment: 08/04 @0930AMNYA Performed By: #### ALEXA COLLIER BTS ####[facility] [address] [place], [address] ABO and Rh group Nom (Bld) Blood group O Rh(D) positive Normal [facility] Comment on above: Order Comment: 08/04 @0930AMNYA Performed By: #### Re [id number], BRC, BTS ####[facility] [address] [place], [address] .Manual Diffon 06-12-2024 Atypical Lymphs 3.0 % Normal 0.0-5.0 [facility] Comment on above: Performed By: #### M ORPH, DIFF, CBC #### [address] [address] Bands 1.0 % Normal 0.0-5.0 [facility] Comment on above: Performed By: #### M ORPH, DIFF, CBC #### [address] [address] Basophil %, Manual 0.0 % Normal 0.0-2.5 [facility] Comment on above: Performed By: #### M ORPH, DIFF, CBC #### [address] [address] Basophil, Abs Manual 0.0 10 3/mcL Normal 0.0-0.2 [facility] Comment on above: Performed By: #### M ORPH, DIFF, CBC #### [address] [address] Eosinophil %, Manual 4.0 % Normal 0.0-7.0 [facility] Comment on above: Performed By: #### M ORPH, DIFF, CBC #### [address] [address] Eosinophil, Abs Manual 0.1 10 3/mcL Normal 0.0-0.7 [facility] Comment on above: Performed By: #### M ORPH, DIFF, CBC #### [address] [address] Lymphocyte %, Manual 21.0 % Normal 20.0-40.0 [facility] Comment on above: Performed By: #### M ORPH, DIFF, CBC #### [address] [address] Lymphocyte, Abs Manual 0.6 10 3/mcL Low 0.9-4.3 [facility] Comment on above: Performed By: #### M ORPH, DIFF, CBC #### [address] [address] Monocyte %, Manual 5.0 % Normal 2.0-13.0 [facility] Comment on above: Performed By: #### M ORPH, DIFF, CBC #### [address] [address] Monocyte, Abs Manual 0.1 10 3/mcL Normal 0.1-1.4 [facility] Comment on above: Performed By: #### M ORPH, DIFF, CBC #### [address] [address] Neutrophil %, Manual 66.0 % Normal 50.0-75.0 [facility] Comment on above: Performed By: #### M ORPH, DIFF, CBC #### [address] [address] Neutrophil, Abs Manual 1.8 10 3/mcL Low 2.3-8.1 [facility] Comment on above: Performed By: #### M ORPH, DIFF, CBC #### [address] [address] Nucleated RBC 0.0 /100 WBC Normal [facility] Comment on above: Performed By: #### M ORPH, DIFF, CBC #### [address] [address] .Morphon 06-12-2024 Anisocytosis Ql (Bld) 2+ Normal [facility] Comment on above: Performed By: #### M ORPH, DIFF, CBC #### [address] [address] Hyperseg 1+ Normal [facility] Comment on above: Performed By: #### M ORPH, DIFF, CBC #### [address] [address] Ovalocytes 1+ Normal [facility] Comment on above: Performed By: #### M ORPH, DIFF, CBC #### [place] [address] Platelet Estimate Normal Normal [facility] Comment on above: Performed By: #### M ORPH, DIFF, CBC #### [place] [address] Poik 1+ Normal [facility] Comment on above: Performed By: #### M ORPH, DIFF, CBC #### [place] [address] Tear Cell 1+ Normal [facility] Comment on above: Performed By: #### M ORPH, DIFF, CBC #### [place] [address] CBCon 06-12-2024 Erythrocyte distribution width (RBC) [Ratio] 23.5 % High 11.5-15.5 [facility] Comment on above: Performed By: #### M ORPH, DIFF, CBC #### [place] [address] Hematocrit (Bld) [Volume fraction] 27.2 % Low 40.0-52.0 [facility] Comment on above: Performed By: #### M ORPH, DIFF, CBC #### [place] [address] Hgb 8.8 G/dL Low 13.0-17.5 [facility] Comment on above: Performed By: #### M ORPH, DIFF, CBC #### [place] [address] MCH (RBC) [Entitic mass] 31.5 pg Normal 27.0-33.0 [facility] Comment on above: Performed By: #### M ORPH, DIFF, CBC #### [place] [address] MCHC 32.4 G/dL Normal 32.0-36.0 [facility] Comment on above: Performed By: #### M ORPH, DIFF, CBC #### [place] [address] MCV (RBC) [Entitic vol] 97.2 fL Normal 81.0-100.0 [facility] Comment on above: Performed By: #### M ORPH, DIFF, CBC #### [address] [address] Platelet 156 10 3/mcL Normal 150-450 [facility] Comment on above: Performed By: #### M ORPH, DIFF, CBC #### [address] [address] Platelet mean volume (Bld) [Entitic vol] 7.5 fL Normal 6.4-10.5 [facility] Comment on above: Performed By: #### M ORPH, DIFF, CBC #### [address] [address] RBC 2.79 10 6/mcL Low 4.50-6.00 [facility] Comment on above: Performed By: #### M ORPH, DIFF, CBC #### [address] [address] WBC 2.7 10 3/mcL Low 4.5-10.8 [facility] Comment on above: Performed By: #### M ORPH, DIFF, CBC #### [address] [address] LABORATORYOrdered By: SYSTEM SYSTEM on 06-12-2024 Anisocytosis Ql (Bld) 2+ *NA* (06/12/24 5:14 AM) Invalid Interpretation Code AO Workflow SS Band form neutrophils/100 WBC (Bld) 1.0 % Normal 0.0 - 5.0 % AO Workflow SS Basophil %, Manual 0.0 % Normal 0.0 - 2.5 % AO Wo rkflow SS Basophils (Bld) [#/Vol] 0.0 103/mcL Normal 0.0 - 0.2 10^3/mcL AO Workflow SS Dacrocytes LM Ql (Bld) 1+ *NA* (06/12/24 5:14 AM) Invalid Interpretation Code AO Workflow SS Eosinophil %, Manual 4.0 % Normal 0.0 - 7.0 % AO Workflow SS Eosinophils (Bld) [#/Vol] 0.1 103/mcL Normal 0.0 - 0.7 10^3/mcL AO Workflow SS Erythrocyte distribution width (RBC) [Ratio] 23.5 % High 11.5 - 15.5 % AO Workflow SS Hematocrit (Bld) [Volume fraction] 27.2 % Low 40.0 - 52.0 % AO Workflow SS Hemoglobin (Bld) [Mass/Vol] 8.8 G/dL Low 13.0 - 17.5 G/dL AO Workflow SS Lymphocytes (Bld) [#/Vol] 0.6 103/mcL Low 0.9 - 4.3 10^3/mcL AO Workflow SS Lymphocytes/100 WBC (Bld) 21.0 % Normal 20.0 - 40.0 % AO Workflow SS MCH (RBC) [Entitic mass] 31.5 pg Normal 27.0 - 33.0 pg AO Workflow SS MCHC 32.4 G/dL Normal 32.0 - 36.0 G/dL AO Workflow SS MCV (RBC) [Entitic vol] 97.2 fL Normal 81.0 - 100.0 fL AO Workflow SS Monocytes (Bld) [#/Vol] 0.1 103/mcL Normal 0.1 - 1.4 10^3/mcL AO Workflow SS Monocytes/100 WBC (Bld) 5.0 % Normal 2.0 - 13.0 % AO Workflow SS Neutrophils (Bld) [#/Vol] 1.8 103/mcL Low 2.3 - 8.1 10^3/mcL AO Workflow SS Neutrophils.hypersegmen lor LM Ql (Bld) 1+ *NA* (06/12/24 5:14 AM) Invalid Interpretation Code AO Workflow SS Neutrophils/100 WBC (Bld) 66.0 % Normal 50.0 - 75.0 % AO Workflow SS Nucleated RBC 0.0 /100 WBC Invalid Interpretation Code AO Workflow SS Ovalocytes LM Ql (Bld) 1+ *NA* (06/12/24 5:14 AM) Invalid Interpretation Code AO Workflow SS Platelet mean volume (Bld) [Entitic vol] 7.5 fL Normal 6.4 - 10.5 fL AO Workflow SS Platelets (Bld) [#/Vol] 156 103/mcL Normal 150 - 450 10^3/mcL AO Workflow SS Platelets LM Ql (Bld) Normal *NA* (06/12/24 5:14 AM) Invalid Interpretation Code AO Workflow SS Poikilocytosis LM Ql (Bld) 1+ *NA* (06/12/24 5:14 AM) Invalid Interpretation Code AO Workflow SS RBC (Bld) [#/Vol] 2.79 106/mcL Low 4.50 - 6.0 0 10^6/mcL AO Workflow SS Variant lymphocytes/100 WBC (Bld) 3.0 % Normal 0.0 - 5.0 % AO Workflow SS WBC (Bld) [#/Vol] 2.7 103/mcL Low 4.5 - 10.8 10^3/mcL AO Workflow SS .Auto Diffon 06-07-2024 Basophil, Absolute 0.0 10 3/mcL Normal 0.0-0.2 [facility] Comment on above: Performed By: #### C BC, MORPH, ANEU, ADIFF #### [address] [address] Basophils/100 WBC (Bld) 0.6 % Normal 0.0-2.5 [facility] Comment on above: Performed By: #### C BC, MORPH, ANEU, ADIFF #### [address] [address] Eosinophil, Absolute 0.2 10 3/mcL Normal 0.0-0.7 [facility] Comment on above: Performed By: #### C BC, MORPH, ANEU, ADIFF #### [address] [address] Eosinophils/100 WBC (Bld) 7.4 % High 0.0-7.0 [facility] Comment on above: Performed By: #### C BC, MORPH, ANEU, ADIFF #### [address] [address] Lymphocyte, Absolute 0.6 10 3/mcL Low 0.9-4.3 [facility] Comment on above: Performed By: #### C BC, MORPH, ANEU, ADIFF #### [address] [address] Lymphocytes/100 WBC (Bld) 22.3 % Normal 20.0-40.0 [facility] Comment on above: Performed By: #### C BC, MORPH, ANEU, ADIFF #### [address] [address] Monocyte, Absolute 0.3 10 3/mcL Normal 0.1-1.4 [facility] Comment on above: Performed By: #### C BC, MORPH, ANEU, ADIFF #### [address] [address] Monocytes/100 WBC (Bld) 10.1 % Normal 2.0-13.0 [facility] Comment on above: Performed By: #### C BC, MORPH, ANEU, ADIFF #### [address] [address] Neutrophils/100 WBC (Bld) 59.6 % Normal 50.0-75.0 [facility] Comment on above: Performed By: #### C BC, MORPH, ANEU, ADIFF #### [address] [address] .Morphon 06-07-2024 Anisocytosis Ql (Bld) 1+ Normal [facility] Comment on above: Performed By: #### C BC, MORPH, ANEU, ADIFF #### [address] [address] Microcytosis 1+ Normal [facility] Comment on above: Performed By: #### C BC, MORPH, ANEU, ADIFF #### [address] [address] Platelet Estimate Normal Normal [facility] Comment on above: Performed By: #### C BC, MORPH, ANEU, ADIFF #### [address] [address] Tear Cell 1+ Normal [facility] Comment on above: Performed By: #### C BC, MORPH, ANEU, ADIFF #### [address] [address] .NEUABSon 06-07-2024 Neutrophil, Absolute 1.7 10 3/mcL Low 2.3-8.1 [facility] Comment on above: Performed By: #### C BC, MORPH, ANEU, ADIFF #### [address] [address] CBCon 06-07-2024 Erythrocyte distribution width (RBC) [Ratio] 23.1 % High 11.5-15.5 [facility] Comment on above: Performed By: #### C BC, MORPH, ANEU, ADIFF #### [address] [address] Hematocrit (Bld) [Volume fraction] 26.5 % Low 40.0-52.0 [facility] Comment on above: Performed By: #### C BC, MORPH, ANEU, ADIFF #### [place] [address] Hgb 8.5 G/dL Low 13.0-17.5 [facility] Comment on above: Performed By: #### C BC, MORPH, ANEU, ADIFF #### [place] [id number] MCH (RBC) [Entitic mass] 30.7 pg Normal 27.0-33.0 [facility] Comment on above: Performed By: #### C BC, MORPH, ANEU, ADIFF #### [place] [address] MCHC 32.1 G/dL Normal 32.0-36.0 [facility] Comment on above: Performed By: #### C BC, MORPH, ANEU, ADIFF #### [place] [address] MCV (RBC) [Entitic vol] 95.7 fL Normal 81.0-100.0 [facility] Comment on above: Performed By: #### C BC, MORPH, ANEU, ADIFF #### [address] [address] Platelet 180 10 3/mcL Normal 150-450 [facility] Comment on above: Performed By: #### C BC, MORPH, ANEU, ADIFF #### [place] [id number] Platelet mean volume (Bld) [Entitic vol] 7.3 fL Normal 6.4-10.5 [facility] Comment on above: Performed By: #### C BC, MORPH, ANEU, ADIFF #### [facility] [address], [place] [address] RBC 2.77 10 6/mcL Low 4.50-6.00 [facility] Comment on above: Performed By: #### C BC, MORPH, ANEU, ADIFF #### [facility] [address], [place] [address] WBC 2.8 10 3/mcL Low 4.5-10.8 [facility] Comment on above: Performed By: #### C BC, MORPH, ANEU, ADIFF #### [facility] [address], [place] [address] LABORATORYOrdered By: SYSTEM SYSTEM on 06-07-2024 Anisocytosis Ql (Bld) 1+ *NA* (06/07/24 5:16 AM) Invalid Interpretation Code AO Workflow SS Basophils (Bld) [#/Vol] 0.0 103/mcL Normal 0.0 - 0.2 10^3/mcL AO Workflow SS Basophils/100 WBC (Bld) 0.6 % Normal 0.0 - 2.5 % AO Workflow SS Dacrocytes LM Ql (Bld) 1+ *NA* (06/07/24 5:16 AM) Invalid Interpretation Code AO Workflow SS Eosinophil, Absolute 0.2 103/mcL Normal 0.0 - 0 .7 10^3/mcL AO Workflow SS Eosinophils/100 WBC (Bld) 7.4 % High 0.0 - 7.0 % AO Workflow SS Erythrocyte distribution width (RBC) [Ratio] 23.1 % High 11.5 - 15.5 % AO Workflow SS Hematocrit (Bld) [Volume fraction] 26.5 % Low 40.0 - 52.0 % AO Workflow SS Hemoglobin (Bld) [Mass/Vol] 8.5 G/dL Low 13.0 - 17.5 G/dL AO Workflow SS Lymphocytes (Bld) [#/Vol] 0.6 103/mcL Low 0.9 - 4.3 10^3/mcL AO Workflow SS Lymphocytes/100 WBC (Bld) 22.3 % Normal 20.0 - 40.0 % AO Workflow SS MCH (RBC) [Entitic mass] 30.7 pg Normal 27.0 - 33.0 pg AO Workflow SS MCHC 32.1 G/dL Normal 32.0 - 36.0 G/dL AO Workflow SS MCV (RBC) [Entitic vol] 95.7 fL Normal 81.0 - 100.0 fL AO Workflow SS Microcytes Ql (Bld) 1+ *NA* (06/07/24 5:16 AM) Invalid Interpretation Code AO Workflow SS Monocytes (Bld) [#/Vol] 0.3 103/mcL Normal 0.1 - 1.4 10^3/mcL AO Workflow SS Monocytes/100 WBC (Bld) 10.1 % Normal 2.0 - 13.0 % AO Workflow SS Neutrophils (Bld) [#/Vol] 1.7 103/mcL Low 2.3 - 8.1 10^3/mcL AO Workflow SS Neutrophils/100 WBC (Bld) 59.6 % Normal 50.0 - 75.0 % AO Workflow SS Platelet mean volume (Bld) [Entitic vol] 7.3 fL Normal 6.4 - 10.5 fL AO Workflow SS Platelets (Bld) [#/Vol] 180 103/mcL Normal 150 - 450 10^3/mcL AO Workflow SS Platelets LM Ql (Bld) Normal *NA* (06/07/24 5:16 AM) Invalid Interpretation Code AO Workflow SS RBC (Bld) [#/Vol] 2.77 106/mcL Low 4.50 - 6.0 0 10^6/mcL AO Workflow SS WBC (Bld) [#/Vol] 2.8 103/mcL Low 4.5 - 10.8 10^3/mcL AO Workflow SS Basic Metabolic Profile (BMP )on 06-06-2024 BUN Normal - [facility] Comment on above: Result Comment: Canc elled via OM: Order cancelled - Patient discharged Performed By: #### L 500.2500, L100.0100 ####[facility] [address] [place], [place], [id number] BUN/CRE Normal 10- [facility] Comment on above: Result Comment: Canc elled via OM: Order cancelled - Patient discharged Performed By: #### L 500.2500, L100.0100 ####[facility] [address] [place], [address] CA,Total Normal 8.5-10.1 [facility] Comment on above: Result Comment: Canc elled via OM: Order cancelled - Patient discharged Performed By: #### L 500.2500, L100.0100 ####[facility] [address] [place], [address] CL Normal 98-107 [facility] Comment on above: Result Comment: Canc elled via OM: Order cancelled - Patient discharged Performed By: #### L 500.2500, L100.0100 ####[facility] [address] [place], [address] CO2 Normal 21.0-32.0 [facility] Comment on above: Result Comment: Canc elled via OM: Order cancelled - Patient discharged Performed By: #### L 500.2500, L100.0100 ####[facility] [address] [place], [address] CREAT,SERUM Normal 0.70-1.30 [facility] Comment on above: Result Comment: Canc elled via OM: Order cancelled - Patient discharged Performed By: #### L 500.2500, L100.0100 ####[facility] [address] [place], [address] EST GFR Normal >60 [facility] Comment on above: Result Comment: Canc elled via OM: Order cancelled - Patient discharged Performed By: #### L 500.2500, L100.0100 ####[facility] [address] [place], [address] EST GFR - AA Normal >60 [facility] Comment on above: Result Comment: Canc elled via OM: Order cancelled - Patient discharged Performed By: #### L 500.2500, L100.0100 ####[facility] [address] [place], [address] GAP Normal 5-15 [facility] Comment on above: Result Comment: Canc elled via OM: Order cancelled - Patient discharged Performed By: #### L 500.2500, L100.0100 ####[facility] [address] [place], [address] GLU Normal 74-106 [facility] Comment on above: Result Comment: Canc elled via OM: Order cancelled - Patient discharged Performed By: #### L 500.2500, L100.0100 ####[facility] [address] [place], [address] Potassium Normal 3.5-5.1 [facility] Comment on above: Result Comment: Canc elled via OM: Order cancelled - Patient discharged Performed By: #### L 500.2500, L100.0100 ####[facility] [address] [place], [address] Basic Metabolic Profile (BMP) Normal 136-145 [facility] Comment on above: Result Comment: Canc elled via OM: Order cancelled - Patient discharged Performed By: #### L 500.2500, L100.0100 ####[facility] [address] [place], [address] CBC W/Diff, Automatedon 11-2 Absolute Neut Normal 2.0-7.7 [facility] Comment on above: Result Comment: Canc elled via OM: Order cancelled - Patient discharged Performed By: #### L 500.2500, L100.0100 ####[facility] [address] [place], [address] HCT Normal 40-54 [facility] Comment on above: Result Comment: Canc elled via OM: Order cancelled - Patient discharged Performed By: #### L 500.2500, L100.0100 ####[facility] [address] [place], [address] HGB Normal 13.0-16.5 [facility] Comment on above: Result Comment: Canc elled via OM: Order cancelled - Patient discharged Performed By: #### L 500.2500, L100.0100 ####[facility] [address] [place], [address] MCH Normal 27.0-32.0 [facility] Comment on above: Result Comment: Canc elled via OM: Order cancelled - Patient discharged Performed By: #### L 500.2500, L100.0100 ####[facility] [address] [place], [address] MCHC Normal 32-36 [facility] Comment on above: Result Comment: Canc elled via OM: Order cancelled - Patient discharged Performed By: #### L 500.2500, L100.0100 ####[facility] [address] [place], [address] MCV Normal 80-94 [facility] Comment on above: Result Comment: Canc elled via OM: Order cancelled - Patient discharged Performed By: #### L 500.2500, L100.0100 ####[facility] [address] [place], [address] NEUT% Normal 47-70 [facility] Comment on above: Result Comment: Canc elled via OM: Order cancelled - Patient discharged Performed By: #### L 500.2500, L100.0100 ####[facility] [address] [place], [address] PLT Normal 150-450 [facility] Comment on above: Result Comment: Canc elled via OM: Order cancelled - Patient discharged Performed By: #### L 500.2500, L100.0100 ####[facility] [address] [place], [address] RBC Normal 4.6-6.2 [facility] Comment on above: Result Comment: Canc elled via OM: Order cancelled - Patient discharged Performed By: #### L 500.2500, L100.0100 ####[facility] [address] [place], [address] RDW CV Normal 11.6-14.6 [facility] Comment on above: Result Comment: Canc elled via OM: Order cancelled - Patient discharged Performed By: #### L 500.2500, L100.0100 ####[facility] [address] [place], [address] RDW SD Normal 35.1-43.9 [facility] Comment on above: Result Comment: Canc elled via OM: Order cancelled - Patient discharged Performed By: #### L 500.2500, L100.0100 ####[facility] [address] [place], [address] WBC Normal 4.4-11.0 [facility] Comment on above: Result Comment: Canc elled via OM: Order cancelled - Patient discharged Performed By: #### L 500.2500, L100.0100 ####[facility] [address] [place], [address] Basic Metabolic Profile (BMP )on 06-05-2024 BUN Normal 7-18 [facility] Comment on above: Result Comment: Canc elled via OM: Order cancelled - Patient discharged Performed By: #### L 500.2500, L100.0100 ####[facility] [address] [place], [address] BUN/CRE Normal 10-20 [facility] Comment on above: Result Comment: Canc elled via OM: Order cancelled - Patient discharged Performed By: #### L 500.2500, L100.0100 ####[facility] [address] [place], [address] CA,Total Normal 8.5-10.1 [facility] Comment on above: Result Comment: Canc elled via OM: Order cancelled - Patient discharged Performed By: #### L 500.2500, L100.0100 ####[facility] [address] [place], [address] CL Normal 98-107 [facility] Comment on above: Result Comment: Canc elled via OM: Order cancelled - Patient discharged Performed By: #### L 500.2500, L100.0100 ####[facility] [address] [place], [address] CO2 Normal 21.0-32.0 [facility] Comment on above: Result Comment: Canc elled via OM: Order cancelled - Patient discharged Performed By: #### L 500.2500, L100.0100 ####[facility] [address] [place], [address] CREAT,SERUM Normal 0.70-1.30 [facility] Comment on above: Result Comment: Canc elled via OM: Order cancelled - Patient discharged Performed By: #### L 500.2500, L100.0100 ####[facility] [address] [place], [address] EST GFR Normal >60 [facility] Comment on above: Result Comment: Canc elled via OM: Order cancelled - Patient discharged Performed By: #### L 500.2500, L100.0100 ####[facility] [address] [place], [address] EST GFR - AA Normal >60 [facility] Comment on above: Result Comment: Canc elled via OM: Order cancelled - Patient discharged Performed By: #### L 500.2500, L100.0100 ####[facility] [address] [place], [address] GAP Normal 5-15 [facility] Comment on above: Result Comment: Canc elled via OM: Order cancelled - Patient discharged Performed By: #### L 500.2500, L100.0100 ####[facility] [address] [place], [address] GLU Normal 74-106 [facility] Comment on above: Result Comment: Canc elled via OM: Order cancelled - Patient discharged Performed By: #### L 500.2500, L100.0100 ####[facility] [address] [place], [address] Potassium Normal 3.5-5.1 [facility] Comment on above: Result Comment: Canc elled via OM: Order cancelled - Patient discharged Performed By: #### L 500.2500, L100.0100 ####[facility] [id number] [place], [address] Basic Metabolic Profile (BMP) Normal 136-145 [facility] Comment on above: Result Comment: Canc elled via OM: Order cancelled - Patient discharged Performed By: #### L 500.2500, L100.0100 ####[facility] [address] [place], [address] CBC W/Diff, Automatedon 11-2 -2023 Absolute Neut Normal 2.0-7.7 [facility] Comment on above: Result Comment: Canc elled via OM: Order cancelled - Patient discharged Performed By: #### L 500.2500, L100.0100 ####[facility] [address] [place], [address] HCT Normal 40-54 [facility] Comment on above: Result Comment: Canc elled via OM: Order cancelled - Patient discharged Performed By: #### L 500.2500, L100.0100 ####[facility] [address] [place], [address] HGB Normal 13.0-16.5 [facility] Comment on above: Result Comment: Canc elled via OM: Order cancelled - Patient discharged Performed By: #### L 500.2500, L100.0100 ####[facility] [address] [place], [address] MCH Normal 27.0-32.0 [facility] Comment on above: Result Comment: Canc elled via OM: Order cancelled - Patient discharged Performed By: #### L 500.2500, L100.0100 ####[facility] [address] [place], [address] MCHC Normal 32-36 [facility] Comment on above: Result Comment: Canc elled via OM: Order cancelled - Patient discharged Performed By: #### L 500.2500, L100.0100 ####[facility] [address] [place], [address] MCV Normal 80-94 [facility] Comment on above: Result Comment: Canc elled via OM: Order cancelled - Patient discharged Performed By: #### L 500.2500, L100.0100 ####[facility] [address] [place], [address] NEUT% Normal 47-70 [facility] Comment on above: Result Comment: Canc elled via OM: Order cancelled - Patient discharged Performed By: #### L 500.2500, L100.0100 ####[facility] [address] [place], [address] PLT Normal 150-450 [facility] Comment on above: Result Comment: Canc elled via OM: Order cancelled - Patient discharged Performed By: #### L 500.2500, L100.0100 ####[facility] [address] [place], [address] RBC Normal 4.6-6.2 [facility] Comment on above: Result Comment: Canc elled via OM: Order cancelled - Patient discharged Performed By: #### L 500.2500, L100.0100 ####[facility] [address] [place], [address] RDW CV Normal 11.6-14.6 [facility] Comment on above: Result Comment: Canc elled via OM: Order cancelled - Patient discharged Performed By: #### L 500.2500, L100.0100 ####[facility] [address] [place], [address] RDW SD Normal 35.1-43.9 [facility] Comment on above: Result Comment: Canc elled via OM: Order cancelled - Patient discharged Performed By: #### L 500.2500, L100.0100 ####[facility] [address] [place], [address] WBC Normal 4.4-11.0 [facility] Comment on above: Result Comment: Canc elled via OM: Order cancelled - Patient discharged Performed By: #### L 500.2500, L100.0100 ####[facility] [address] [place], [address] Basic Metabolic Profile (BMP )on 06-04-2024 BUN Normal 7-18 [facility] Comment on above: Result Comment: Canc elled via OM: Order cancelled - Patient discharged Performed By: #### L 500.2500, L100.0100 ####[facility] [address] [place], [address] BUN/CRE Normal 10-20 [facility] Comment on above: Result Comment: Canc elled via OM: Order cancelled - Patient discharged Performed By: #### L 500.2500, L100.0100 ####[facility] [address] [place], [address] CA,Total Normal 8.5-10.1 [facility] Comment on above: Result Comment: Canc elled via OM: Order cancelled - Patient discharged Performed By: #### L 500.2500, L100.0100 ####[facility] [address] [place], [address] CL Normal 98-107 [facility] Comment on above: Result Comment: Canc elled via OM: Order cancelled - Patient discharged Performed By: #### L 500.2500, L100.0100 ####[facility] [address] [place], [address] CO2 Normal 21.0-32.0 [facility] Comment on above: Result Comment: Canc elled via OM: Order cancelled - Patient discharged Performed By: #### L 500.2500, L100.0100 ####[facility] [address] [place], [address] CREAT,SERUM Normal 0.70-1.30 [facility] Comment on above: Result Comment: Canc elled via OM: Order cancelled - Patient discharged Performed By: #### L 500.2500, L100.0100 ####[facility] [address] [place], [address] EST GFR Normal >60 [facility] Comment on above: Result Comment: Canc elled via OM: Order cancelled - Patient discharged Performed By: #### L 500.2500, L100.0100 ####[facility] [address] [place], [address] EST GFR - AA Normal >60 [facility] Comment on above: Result Comment: Canc elled via OM: Order cancelled - Patient discharged Performed By: #### L 500.2500, L100.0100 ####[facility] [address] [place], [address] GAP Normal 5-15 [facility] Comment on above: Result Comment: Canc elled via OM: Order cancelled - Patient discharged Performed By: #### L 500.2500, L100.0100 ####[facility] [address] [place], [address] GLU Normal 74-106 [facility] Comment on above: Result Comment: Canc elled via OM: Order cancelled - Patient discharged Performed By: #### L 500.2500, L100.0100 ####[facility] [address] [place], [address] Potassium Normal 3.5-5.1 [facility] Comment on above: Result Comment: Canc elled via OM: Order cancelled - Patient discharged Performed By: #### L 500.2500, L100.0100 ####[facility] [address] [place], [address] Basic Metabolic Profile (BMP) Normal 136-145 [facility] Comment on above: Result Comment: Canc elled via OM: Order cancelled - Patient discharged Performed By: #### L 500.2500, L100.0100 ####[facility] [address] [place], [address] CBC W/Diff, Automatedon 11-2 Absolute Neut Normal 2.0-7.7 [facility] Comment on above: Result Comment: Canc elled via OM: Order cancelled - Patient discharged Performed By: #### L 500.2500, L100.0100 ####[facility] [address] [place], [address] HCT Normal 40-54 [facility] Comment on above: Result Comment: Canc elled via OM: Order cancelled - Patient discharged Performed By: #### L 500.2500, L100.0100 ####[facility] [address] [place], [address] HGB Normal 13.0-16.5 [facility] Comment on above: Result Comment: Canc elled via OM: Order cancelled - Patient discharged Performed By: #### L 500.2500, L100.0100 ####[facility] [address] [place], [address] MCH Normal 27.0-32.0 [facility] Comment on above: Result Comment: Canc elled via OM: Order cancelled - Patient discharged Performed By: #### L 500.2500, L100.0100 ####[facility] [address] [place], [address] MCHC Normal 32-36 [facility] Comment on above: Result Comment: Canc elled via OM: Order cancelled - Patient discharged Performed By: #### L 500.2500, L100.0100 ####[facility] [address] [place], [address] MCV Normal 80-94 [facility] Comment on above: Result Comment: Canc elled via OM: Order cancelled - Patient discharged Performed By: #### L 500.2500, L100.0100 ####[facility] [address] [place], [address] NEUT% Normal 47-70 [facility] Comment on above: Result Comment: Canc elled via OM: Order cancelled - Patient discharged Performed By: #### L 500.2500, L100.0100 ####[facility] [address] [place], [address] PLT Normal 150-450 [facility] Comment on above: Result Comment: Canc elled via OM: Order cancelled - Patient discharged Performed By: #### L 500.2500, L100.0100 ####[facility] [address] [place], [address] RBC Normal 4.6-6.2 [facility] Comment on above: Result Comment: Canc elled via OM: Order cancelled - Patient discharged Performed By: #### L 500.2500, L100.0100 ####[facility] [address] [place], [address] RDW CV Normal 11.6-14.6 [facility] Comment on above: Result Comment: Canc elled via OM: Order cancelled - Patient discharged Performed By: #### L 500.2500, L100.0100 ####[facility] [address] [place], [address] RDW SD Normal 35.1-43.9 [facility] Comment on above: Result Comment: Canc elled via OM: Order cancelled - Patient discharged Performed By: #### L 500.2500, L100.0100 ####[facility] [address] [place], [address] WBC Normal 4.4-11.0 [facility] Comment on above: Result Comment: Canc elled via OM: Order cancelled - Patient discharged Performed By: #### L 500.2500, L100.0100 ####[facility] [address] [place], [address] .GFRon 06-03-2024 GFR 81 ml/min/1.73sqm Normal [facility] Comment on above: Result Comment: GFR Population mean for , Non- Americans Ages 20-29 = 116 mL/min/1.73 sq.m. Ages 30-39 = 107 mL/min/1.73 sq.m. Ages 40-49 = 99 mL/min/1.73 sq.m. Ages 50-59 = 93 mL/min/1.73 sq.m. Ages 60-69 = 85 mL/min/1.73 sq.m. Ages 70+ = 75 mL/min/1.73 sq.m. Chronic Kidney Disease: Less than 60 mL/min/1.73 square meters End Stage Renal Disease: Less than 15 mL/min/1.73 square meters Performed By: #### C BC, MORPH, ANEU, ADIFF #### [facility] [address] [place], [place] [address] GFR Non- 67 ml/min/1.73sqm Normal [facility] Comment on above: Result Comment: GFR Population mean for , Non- Americans Ages 20-29 = 116 mL/min/1.73 sq.m. Ages 30-39 = 107 mL/min/1.73 sq.m. Ages 40-49 = 99 mL/min/1.73 sq.m. Ages 50-59 = 93 mL/min/1.73 sq.m. Ages 60-69 = 85 mL/min/1.73 sq.m. Ages 70+ = 75 mL/min/1.73 sq.m. Chronic Kidney Disease: Less than 60 mL/min/1.73 square meters End Stage Renal Disease: Less than 15 mL/min/1.73 square meters Performed By: #### C BC, MORPH, ANEU, ADIFF #### [address] [address] .Manual Diffon 06-03-2024 Bands 2.0 % Normal 0.0-5.0 [facility] Comment on above: Performed By: #### C BC, MORPH, ANEU, ADIFF #### [place] [address] Basophil %, Manual 0.0 % Normal 0.0-2.5 [facility] Comment on above: Performed By: #### C BC, MORPH, ANEU, ADIFF #### [place] [address] Basophil, Abs Manual 0.0 10 3/mcL Normal 0.0-0.2 [facility] Comment on above: Performed By: #### C BC, MORPH, ANEU, ADIFF #### [address] [address] Eosinophil %, Manual 5.0 % Normal 0.0-7.0 [facility] Comment on above: Performed By: #### C BC, MORPH, ANEU, ADIFF #### [place] [id number] Eosinophil, Abs Manual 0.1 10 3/mcL Normal 0.0-0.7 [facility] Comment on above: Performed By: #### C BC, MORPH, ANEU, ADIFF #### [place] [address] Lymphocyte %, Manual 31.0 % Normal 20.0-40.0 [facility] Comment on above: Performed By: #### C BC, MORPH, ANEU, ADIFF #### [place] [address] Lymphocyte, Abs Manual 0.9 10 3/mcL Normal 0.9-4.3 [facility] Comment on above: Performed By: #### C BC, MORPH, ANEU, ADIFF #### [address] [address] Monocyte %, Manual 1.0 % Low 2.0-13.0 [facility] Comment on above: Performed By: #### C BC, MORPH, ANEU, ADIFF #### [address] [address] Monocyte, Abs Manual 0.0 10 3/mcL Low 0.1-1.4 [facility] Comment on above: Performed By: #### C BC, MORPH, ANEU, ADIFF #### [address] [address] Neutrophil %, Manual 61.0 % Normal 50.0-75.0 [facility] Comment on above: Performed By: #### C BC, MORPH, ANEU, ADIFF #### [address] [address] Neutrophil, Abs Manual 1.7 10 3/mcL Low 2.3-8.1 [facility] Comment on above: Performed By: #### C BC, MORPH, ANEU, ADIFF #### [address] [address] Nucleated RBC 0.0 /100 WBC Normal [facility] Comment on above: Performed By: #### C BC, MORPH, ANEU, ADIFF #### [address] [address] .Morphon 06-03-2024 Microcytosis 1+ Normal [facility] Comment on above: Performed By: #### C BC, MORPH, ANEU, ADIFF #### [address] [address] Platelet Estimate Normal Normal [facility] Comment on above: Performed By: #### C BC, MORPH, ANEU, ADIFF #### [address] [address] BMPon 11-23-2024 BUN/Creatinine Ratio 16 ratio Normal 7-27 [facility] Comment on above: Performed By: #### C BC MORPH, ANEU, ADIFF #### [address] [address] Calcium [Mass/Vol] 8.6 mg/dL Normal 8.4-10.2 [facility] Comment on above: Performed By: #### C BC MORPH, ANEU, ADIFF #### [address] [address] Chloride [Moles/Vol] 109 mmol/L High 98-107 [facility] Comment on above: Performed By: #### C BC MORPH, ANEU, ADIFF #### [place] [address] CO2 [Moles/Vol] 33 mmol/L High 23-31 [facility] Comment on above: Performed By: #### C BCSUNIL, ANEU, ADIFF #### [address] [address] Creatinine [Mass/Vol] 1.10 mg/dL Normal 0.70-1.30 [facility] Comment on above: Result Comment: Test ing performed on Siemens Dimension EXL analyzer using a modified kinetic Shlomo technique. Performed By: #### C BC MORPH, ANEU, ADIFF #### [address] [address] Electrolyte Balance 3.0 mEq/L Low 4.0-15.0 [facility] Comment on above: Performed By: #### C BC MORPH, ANEU, ADIFF #### [address] [address] Glucose [Mass/Vol] 99 mg/dL Normal 80-115 [facility] Comment on above: Performed By: #### C BC MORPH, ANEU, ADIFF #### [address] [address] Potassium [Moles/Vol] 4.0 mmol/L Normal 3.5-5.1 [facility] Comment on above: Performed By: #### C BC, MORPH, ANEU, ADIFF #### [facility] [address] [place], [place] [address] Sodium [Moles/Vol] 145 mmol/L Normal 136-145 [facility] Comment on above: Performed By: #### C BC, MORPH, ANEU, ADIFF #### [facility] [address], [place] [address] Urea nitrogen [Mass/Vol] 18 mg/dL Normal 7-18 [facility] Comment on above: Performed By: #### C BC, MORPH, ANEU, ADIFF #### [facility] [address], [place] [address] Basic Metabolic Profile (BMP )on 06-03-2024 BUN Normal - [facility] Comment on above: Result Comment: Canc elled via OM: Order cancelled - Patient discharged Performed By: #### L 500.2500, L100.0100 ####[facility] [address] [place], [address] BUN/CRE Normal 10-20 [facility] Comment on above: Result Comment: Canc elled via OM: Order cancelled - Patient discharged Performed By: #### L 500.2500, L100.0100 ####[facility] [address] [place], [address] CA,Total Normal 8.5-10.1 [facility] Comment on above: Result Comment: Canc elled via OM: Order cancelled - Patient discharged Performed By: #### L 500.2500, L100.0100 ####[facility] [address] [place], [address] CL Normal 98-107 [facility] Comment on above: Result Comment: Canc elled via OM: Order cancelled - Patient discharged Performed By: #### L 500.2500, L100.0100 ####[facility] [address] [place], [address] CO2 Normal 21.0-32.0 [facility] Comment on above: Result Comment: Canc elled via OM: Order cancelled - Patient discharged Performed By: #### L 500.2500, L100.0100 ####[facility] [address] [place], [address] CREAT,SERUM Normal 0.70-1.30 [facility] Comment on above: Result Comment: Canc elled via OM: Order cancelled - Patient discharged Performed By: #### L 500.2500, L100.0100 ####[facility] [address] [place], [address] EST GFR Normal >60 [facility] Comment on above: Result Comment: Canc elled via OM: Order cancelled - Patient discharged Performed By: #### L 500.2500, L100.0100 ####[facility] [address] [place], [address] EST GFR - AA Normal >60 [facility] Comment on above: Result Comment: Canc elled via OM: Order cancelled - Patient discharged Performed By: #### L 500.2500, L100.0100 ####[facility] [address] [place], [address] GAP Normal 5-15 [facility] Comment on above: Result Comment: Canc elled via OM: Order cancelled - Patient discharged Performed By: #### L 500.2500, L100.0100 ####[facility] [address] [place], [address] GLU Normal 74-106 [facility] Comment on above: Result Comment: Canc elled via OM: Order cancelled - Patient discharged Performed By: #### L 500.2500, L100.0100 ####[facility] [address] [place], [address] Potassium Normal 3.5-5.1 [facility] Comment on above: Result Comment: Canc elled via OM: Order cancelled - Patient discharged Performed By: #### L 500.2500, L100.0100 ####[facility] [address] [place], [address] Basic Metabolic Profile (BMP) Normal 136-145 [facility] Comment on above: Result Comment: Canc elled via OM: Order cancelled - Patient discharged Performed By: #### L 500.2500, L100.0100 ####[facility] [address] [place], [address] CBCon 06-03-2024 Erythrocyte distribution width (RBC) [Ratio] 22.9 % High 11.5-15.5 [facility] Comment on above: Performed By: #### B MP, MORPH, GFR, DIFF, CBC #### [address] [address] Hematocrit (Bld) [Volume fraction] 28.2 % Low 40.0-52.0 [facility] Comment on above: Performed By: #### B MP, MORPH, GFR, DIFF, CBC #### [address] [address] Hgb 9.0 G/dL Low 13.0-17.5 [facility] Comment on above: Performed By: #### B MP, MORPH, GFR, DIFF, CBC #### [address] [address] MCH (RBC) [Entitic mass] 30.4 pg Normal 27.0-33.0 [facility] Comment on above: Performed By: #### B MP, MORPH, GFR, DIFF, CBC #### [address] [address] MCHC 32.0 G/dL Normal 32.0-36.0 [facility] Comment on above: Performed By: #### B MP, MORPH, GFR, DIFF, CBC #### [address] [address] MCV (RBC) [Entitic vol] 95.0 fL Normal 81.0-100.0 [facility] Comment on above: Performed By: #### B MP, MORPH, GFR, DIFF, CBC #### [address] [address] Platelet 193 10 3/mcL Normal 150-450 [facility] Comment on above: Performed By: #### B MP, MORPH, GFR, DIFF, CBC #### [place] [address] [place], [place] [address] Platelet mean volume (Bld) [Entitic vol] 7.5 fL Normal 6.4-10.5 [facility] Comment on above: Performed By: #### B MP, MORPH, GFR, DIFF, CBC #### [address] [address] RBC 2.97 10 6/mcL Low 4.50-6.00 [facility] Comment on above: Performed By: #### B MP, MORPH, GFR, DIFF, CBC #### [address] [address] WBC 2.8 10 3/mcL Low 4.5-10.8 [facility] Comment on above: Performed By: #### B MP, MORPH, GFR, DIFF, CBC #### [address] [address] CBC W/Diff, Automatedon 11-2 -2023 Absolute Neut Normal 2.0-7.7 [facility] Comment on above: Result Comment: Canc elled via OM: Order cancelled - Patient discharged Performed By: #### L 500.2500, L100.0100 ####[facility] [address] [facility] [place], [address] HCT Normal 40-54 [facility] Comment on above: Result Comment: Canc elled via OM: Order cancelled - Patient discharged Performed By: #### L 500.2500, L100.0100 ####[facility] [address] [facility] [place], [address] HGB Normal 13.0-16.5 [facility] Comment on above: Result Comment: Canc elled via OM: Order cancelled - Patient discharged Performed By: #### L 500.2500, L100.0100 ####[facility] [address] [place], [address] MCH Normal 27.0-32.0 [facility] Comment on above: Result Comment: Canc elled via OM: Order cancelled - Patient discharged Performed By: #### L 500.2500, L100.0100 ####[facility] [address] [place], [address] MCHC Normal 32-36 [facility] Comment on above: Result Comment: Canc elled via OM: Order cancelled - Patient discharged Performed By: #### L 500.2500, L100.0100 ####[facility] [address] [place], [address] MCV Normal 80-94 [facility] Comment on above: Result Comment: Canc elled via OM: Order cancelled - Patient discharged Performed By: #### L 500.2500, L100.0100 ####[facility] [address] [place], [address] NEUT% Normal 47-70 [facility] Comment on above: Result Comment: Canc elled via OM: Order cancelled - Patient discharged Performed By: #### L 500.2500, L100.0100 ####[facility] [address] [place], [address] PLT Normal 150-450 [facility] Comment on above: Result Comment: Canc elled via OM: Order cancelled - Patient discharged Performed By: #### L 500.2500, L100.0100 ####[facility] [address] [place], [address] RBC Normal 4.6-6.2 [facility] Comment on above: Result Comment: Canc elled via OM: Order cancelled - Patient discharged Performed By: #### L 500.2500, L100.0100 ####[facility] [address] [place], [address] RDW CV Normal 11.6-14.6 [facility] Comment on above: Result Comment: Canc elled via OM: Order cancelled - Patient discharged Performed By: #### L 500.2500, L100.0100 ####[facility] [address] [place], [address] RDW SD Normal 35.1-43.9 [facility] Comment on above: Result Comment: Canc elled via OM: Order cancelled - Patient discharged Performed By: #### L 500.2500, L100.0100 ####[facility] [address] [place], [address] WBC Normal 4.4-11.0 [facility] Comment on above: Result Comment: Canc elled via OM: Order cancelled - Patient discharged Performed By: #### L 500.2500, L100.0100 ####[facility] [address] [place], [address] [id number] By: SYSTEM SYSTEM on 06-03-2024 Free T4 [Mass/Vol] 1.17 ng/dL Normal 0.76-1.46 AO ADM SS Comment on above: Performed By: #### F T4, TSH #### [address] [address] LABORATORYOrdered By: SYSTEM SYSTEM on 06-03-2024 Band form neutrophils/100 WBC (Bld) 2.0 % Normal 0.0 - 5.0 % AO Workflow SS Basophil %, Manual 0.0 % Normal 0.0 - 2.5 % AO Wo rkflow SS Basophils (Bld) [#/Vol] 0.0 103/mcL Normal 0.0 - 0.2 10^3/mcL AO Workflow SS Calcium [Mass/Vol] 8.6 mg/dL Normal 8.4 - 10. 2 mg/dL AO ADM SS Chloride [Moles/Vol] 109 mmol/L High 98 - 10 7 mmol/L AO ADM SS CO2 [Moles/Vol] 33 mmol/L High 23 - 31 mmol/L AO ADM SS Creatinine [Mass/Vol] 1.10 mg/dL Normal 0.70 - 1.30 mg/dL AO ADM SS Comment on above: Interpretive Data: T esting performed on Siemens Dimension EXL analyzer using a modified kinetic Shlomo technique. Electrolyte Balance 3.0 mEq/L Low 4.0 - 15 .0 mEq/L AO ADM SS Eosinophil %, Manual 5.0 % Normal 0.0 - 7.0 % AO Workflow SS Eosinophils (Bld) [#/Vol] 0.1 103/mcL Normal 0.0 - 0.7 10^3/mcL AO Workflow SS Erythrocyte distribution width (RBC) [Ratio] 22.9 % High 11.5 - 15.5 % AO Workflow SS GFR/1.73 sq M.predicted among blacks MDRD (S/P/Bld) [Vol rate/Area] 81 ml/min/1.73sqm Invalid Interpretation Code AO Chemistry S Comment on above: Interpretive Data: GFR Population mean for , Non- Americans Ages 20-29 = 116 mL/min/1.73 sq.m. Ages 30-39 = 107 mL/min/1.73 sq.m. Ages 40-49 = 99 mL/min/1.73 sq.m. Ages 50-59 = 93 mL/min/1.73 sq.m. Ages 60-69 = 85 mL/min/1.73 sq.m. Ages 70+ = 75 mL/min/1.73 sq.m. Chronic Kidney Disease: Less than 60 mL/min/1.73 square meters End Stage Renal Disease: Less than 15 mL/min/1.73 square meters GFR/1.73 sq M.predicted among non-blacks MDRD (S/P/Bld) [Vol rate/Area] 67 ml/min/1.73sqm Invalid Interpretation Code AO Chemistry S Comment on above: Interpretive Data: GFR Population mean for , Non- Americans Ages 20-29 = 116 mL/min/1.73 sq.m. Ages 30-39 = 107 mL/min/1.73 sq.m. Ages 40-49 = 99 mL/min/1.73 sq.m. Ages 50-59 = 93 mL/min/1.73 sq.m. Ages 60-69 = 85 mL/min/1.73 sq.m. Ages 70+ = 75 mL/min/1.73 sq.m. Chronic Kidney Disease: Less than 60 mL/min/1.73 square meters End Stage Renal Disease: Less than 15 mL/min/1.73 square meters Glucose [Mass/Vol] 99 mg/dL Normal 80 - 115 mg/dL AO ADM SS Hematocrit (Bld) [Volume fraction] 28.2 % Low 40.0 - 52.0 % AO Workflow SS Hemoglobin (Bld) [Mass/Vol] 9.0 G/dL Low 13.0 - 17.5 G/dL AO Workflow SS Lymphocytes (Bld) [#/Vol] 0.9 103/mcL Normal 0.9 - 4.3 10^3/mcL AO Workflow SS Lymphocytes/100 WBC (Bld) 31.0 % Normal 20.0 - 40.0 % AO Workflow SS MCH (RBC) [Entitic mass] 30.4 pg Normal 27.0 - 33.0 pg AO Workflow SS MCHC 32.0 G/dL Normal 32.0 - 36.0 G/dL AO Workflow SS MCV (RBC) [Entitic vol] 95.0 fL Normal 81.0 - 100.0 fL AO Workflow SS Microcytes Ql (Bld) 1+ *NA* (06/03/24 5:55 AM) Invalid Interpretation Code AO Workflow SS Monocytes (Bld) [#/Vol] 0.0 103/mcL Low 0.1 - 1.4 10^3/mcL AO Workflow SS Monocytes/100 WBC (Bld) 1.0 % Low 2.0 - 13.0 % AO Workflow SS Neutrophils (Bld) [#/Vol] 1.7 103/mcL Low 2.3 - 8.1 10^3/mcL AO Workflow SS Neutrophils/100 WBC (Bld) 61.0 % Normal 50.0 - 75.0 % AO Workflow SS Nucleated RBC 0.0 /100 WBC Invalid Interpretation Code AO Workflow SS Platelet mean volume (Bld) [Entitic vol] 7.5 fL Normal 6.4 - 10.5 fL AO Workflow SS Platelets (Bld) [#/Vol] 193 103/mcL Normal 150 - 450 10^3/mcL AO Workflow SS Platelets LM Ql (Bld) Normal *NA* (06/03/24 5:55 AM) Invalid Interpretation Code AO Workflow SS Potassium [Moles/Vol] 4.0 mmol/L Normal 3.5 - 5.1 mmol/L AO ADM SS RBC (Bld) [#/Vol] 2.97 106/mcL Low 4.50 - 6.0 0 10^6/mcL AO Workflow SS Sodium [Moles/Vol] 145 mmol/L Normal 136 - 145 mmol/L AO ADM SS Urea nitrogen [Mass/Vol] 18 mg/dL Normal 7 - 18 mg/dL AO ADM SS Urea nitrogen/Creatinine [Mass ratio] 16 ratio Normal 7 - 27 ratio AO ADM SS WBC (Bld) [#/Vol] 2.8 103/mcL Low 4.5 - 10.8 10^3/mcL AO Workflow SS TSHOrdered By: SYSTEM SYSTEM on 06-03-2024 TSH Qn 6.41 m[IU]/L High 0.36-3.74 AO ADM SS Comment on above: Performed By: #### F T4, TSH #### Lemuel [address] [address] Basic Metabolic Profile (BMP )on 06-02-2024 BUN Normal 7-18 [facility] Comment on above: Result Comment: Canc elled via OM: Order cancelled - Patient discharged Performed By: #### L 500.2500, L100.0100 ####[facility] [address] [place], [address] BUN/CRE Normal 10-20 [facility] Comment on above: Result Comment: Canc elled via OM: Order cancelled - Patient discharged Performed By: #### L 500.2500, L100.0100 ####[facility] [address] [place], [address] CA,Total Normal 8.5-10.1 [facility] Comment on above: Result Comment: Canc elled via OM: Order cancelled - Patient discharged Performed By: #### L 500.2500, L100.0100 ####[facility] [address] [place], [address] CL Normal 98-107 [facility] Comment on above: Result Comment: Canc elled via OM: Order cancelled - Patient discharged Performed By: #### L 500.2500, L100.0100 ####[facility] [address] [place], [address] CO2 Normal 21.0-32.0 [facility] Comment on above: Result Comment: Canc elled via OM: Order cancelled - Patient discharged Performed By: #### L 500.2500, L100.0100 ####[facility] [address] [place], [address] CREAT,SERUM Normal 0.70-1.30 [facility] Comment on above: Result Comment: Canc elled via OM: Order cancelled - Patient discharged Performed By: #### L 500.2500, L100.0100 ####[facility] [address] [place], [address] EST GFR Normal >60 [facility] Comment on above: Result Comment: Canc elled via OM: Order cancelled - Patient discharged Performed By: #### L 500.2500, L100.0100 ####[facility] [address] [place], [address] EST GFR - AA Normal >60 [facility] Comment on above: Result Comment: Canc elled via OM: Order cancelled - Patient discharged Performed By: #### L 500.2500, L100.0100 ####[facility] [address] [place], [address] GAP Normal 5-15 [facility] Comment on above: Result Comment: Canc elled via OM: Order cancelled - Patient discharged Performed By: #### L 500.2500, L100.0100 ####[facility] [address] [place], [address] GLU Normal 74-106 [facility] Comment on above: Result Comment: Canc elled via OM: Order cancelled - Patient discharged Performed By: #### L 500.2500, L100.0100 ####[facility] [address] [place], [address] Potassium Normal 3.5-5.1 [facility] Comment on above: Result Comment: Canc elled via OM: Order cancelled - Patient discharged Performed By: #### L 500.2500, L100.0100 ####[facility] [address] [place], [address] Basic Metabolic Profile (BMP) Normal 136-145 [facility] Comment on above: Result Comment: Canc elled via OM: Order cancelled - Patient discharged Performed By: #### L 500.2500, L100.0100 ####[facility] [address] [place], [address] CBC W/Diff, Automatedon 11-2 Absolute Neut Normal 2.0-7.7 [facility] Comment on above: Result Comment: Canc elled via OM: Order cancelled - Patient discharged Performed By: #### L 500.2500, L100.0100 ####[facility] [address] [place], [address] HCT Normal 40-54 [facility] Comment on above: Result Comment: Canc elled via OM: Order cancelled - Patient discharged Performed By: #### L 500.2500, L100.0100 ####[facility] [address] [place], [address] HGB Normal 13.0-16.5 [facility] Comment on above: Result Comment: Canc elled via OM: Order cancelled - Patient discharged Performed By: #### L 500.2500, L100.0100 ####[facility] [address] [place], [address] MCH Normal 27.0-32.0 [facility] Comment on above: Result Comment: Canc elled via OM: Order cancelled - Patient discharged Performed By: #### L 500.2500, L100.0100 ####[facility] [address] [place], [address] MCHC Normal 32-36 [facility] Comment on above: Result Comment: Canc elled via OM: Order cancelled - Patient discharged Performed By: #### L 500.2500, L100.0100 ####[facility] [address] [place], [address] MCV Normal 80-94 [facility] Comment on above: Result Comment: Canc elled via OM: Order cancelled - Patient discharged Performed By: #### L 500.2500, L100.0100 ####[facility] [address] [place], [address] NEUT% Normal 47-70 [facility] Comment on above: Result Comment: Canc elled via OM: Order cancelled - Patient discharged Performed By: #### L 500.2500, L100.0100 ####[facility] [address] [place], [address] PLT Normal 150-450 [facility] Comment on above: Result Comment: Canc elled via OM: Order cancelled - Patient discharged Performed By: #### L 500.2500, L100.0100 ####[facility] [address] [place], [address] RBC Normal 4.6-6.2 [facility] Comment on above: Result Comment: Canc elled via OM: Order cancelled - Patient discharged Performed By: #### L 500.2500, L100.0100 ####[facility] [address] [place], [address] RDW CV Normal 11.6-14.6 [facility] Comment on above: Result Comment: Canc elled via OM: Order cancelled - Patient discharged Performed By: #### L 500.2500, L100.0100 ####[facility] [address] [place], [address] RDW SD Normal 35.1-43.9 [facility] Comment on above: Result Comment: Canc elled via OM: Order cancelled - Patient discharged Performed By: #### L 500.2500, L100.0100 ####[facility] [address] [place], [address] WBC Normal 4.4-11.0 [facility] Comment on above: Result Comment: Canc elled via OM: Order cancelled - Patient discharged Performed By: #### L 500.2500, L100.0100 ####[facility] [address] [place], [address] Basic Metabolic Profile (BMP )on 06-01-2024 BUN Normal -18 [facility] Comment on above: Result Comment: Canc elled via OM: Order cancelled - Patient discharged Performed By: #### L 500.2500, L100.0100 ####[facility] [address] [place], [address] BUN/CRE Normal 10-20 [facility] Comment on above: Result Comment: Canc elled via OM: Order cancelled - Patient discharged Performed By: #### L 500.2500, L100.0100 ####[facility] [address] [place], [address] CA,Total Normal 8.5-10.1 [facility] Comment on above: Result Comment: Canc elled via OM: Order cancelled - Patient discharged Performed By: #### L 500.2500, L100.0100 ####[facility] [address] [place], [address] CL Normal 98-107 [facility] Comment on above: Result Comment: Canc elled via OM: Order cancelled - Patient discharged Performed By: #### L 500.2500, L100.0100 ####[facility] [address] [place], [address] CO2 Normal 21.0-32.0 [facility] Comment on above: Result Comment: Canc elled via OM: Order cancelled - Patient discharged Performed By: #### L 500.2500, L100.0100 ####[facility] [address] [place], [address] CREAT,SERUM Normal 0.70-1.30 [facility] Comment on above: Result Comment: Canc elled via OM: Order cancelled - Patient discharged Performed By: #### L 500.2500, L100.0100 ####[facility] [address] [place], [address] EST GFR Normal >60 [facility] Comment on above: Result Comment: Canc elled via OM: Order cancelled - Patient discharged Performed By: #### L 500.2500, L100.0100 ####[facility] [address] [place], [address] EST GFR - AA Normal >60 [facility] Comment on above: Result Comment: Canc elled via OM: Order cancelled - Patient discharged Performed By: #### L 500.2500, L100.0100 ####[facility] [address] [place], [address] GAP Normal 5-15 [facility] Comment on above: Result Comment: Canc elled via OM: Order cancelled - Patient discharged Performed By: #### L 500.2500, L100.0100 ####[facility] [address] [place], [address] GLU Normal 74-106 [facility] Comment on above: Result Comment: Canc elled via OM: Order cancelled - Patient discharged Performed By: #### L 500.2500, L100.0100 ####[facility] [address] [place], [address] Potassium Normal 3.5-5.1 [facility] Comment on above: Result Comment: Canc elled via OM: Order cancelled - Patient discharged Performed By: #### L 500.2500, L100.0100 ####[facility] [address] [place], [address] Basic Metabolic Profile (BMP) Normal 136-145 [facility] Comment on above: Result Comment: Canc elled via OM: Order cancelled - Patient discharged Performed By: #### L 500.2500, L100.0100 ####[facility] [address] [place], [address] CBC W/Diff, Automatedon 11-2 Absolute Neut Normal 2.0-7.7 [facility] Comment on above: Result Comment: Canc elled via OM: Order cancelled - Patient discharged Performed By: #### L 500.2500, L100.0100 ####[facility] [address] [place], [address] HCT Normal 40-54 [facility] Comment on above: Result Comment: Canc elled via OM: Order cancelled - Patient discharged Performed By: #### L 500.2500, L100.0100 ####[facility] [address] [place], [address] HGB Normal 13.0-16.5 [facility] Comment on above: Result Comment: Canc elled via OM: Order cancelled - Patient discharged Performed By: #### L 500.2500, L100.0100 ####[facility] [address] [place], [address] MCH Normal 27.0-32.0 [facility] Comment on above: Result Comment: Canc elled via OM: Order cancelled - Patient discharged Performed By: #### L 500.2500, L100.0100 ####[facility] [address] [place], [address] MCHC Normal 32-36 [facility] Comment on above: Result Comment: Canc elled via OM: Order cancelled - Patient discharged Performed By: #### L 500.2500, L100.0100 ####[facility] [address] [place], [address] MCV Normal 80-94 [facility] Comment on above: Result Comment: Canc elled via OM: Order cancelled - Patient discharged Performed By: #### L 500.2500, L100.0100 ####[facility] [address] [place], [address] NEUT% Normal 47-70 [facility] Comment on above: Result Comment: Canc elled via OM: Order cancelled - Patient discharged Performed By: #### L 500.2500, L100.0100 ####[facility] [address] [place], [address] PLT Normal 150-450 [facility] Comment on above: Result Comment: Canc elled via OM: Order cancelled - Patient discharged Performed By: #### L 500.2500, L100.0100 ####[facility] [address] [place], [address] RBC Normal 4.6-6.2 [facility] Comment on above: Result Comment: Canc elled via OM: Order cancelled - Patient discharged Performed By: #### L 500.2500, L100.0100 ####[facility] [address] [place], [address] RDW CV Normal 11.6-14.6 [facility] Comment on above: Result Comment: Canc elled via OM: Order cancelled - Patient discharged Performed By: #### L 500.2500, L100.0100 ####[facility] [address] [place], [address] RDW SD Normal 35.1-43.9 [facility] Comment on above: Result Comment: Canc elled via OM: Order cancelled - Patient discharged Performed By: #### L 500.2500, L100.0100 ####[facility] [address] [place], [address] WBC Normal 4.4-11.0 [facility] Comment on above: Result Comment: Canc elled via OM: Order cancelled - Patient discharged Performed By: #### L 500.2500, L100.0100 ####[facility] [address] [place], [address] Basic Metabolic Profile (BMP )on 05-31-2024 BUN/CRE 25.7 RATIO High 04-30 [facility] Comment on above: Performed By: #### L 500.2500, L100.0100 ####[facility] [address] [place], [address] CA,Total 8.8 mg/dL Normal 8.5-10.1 [facility] Comment on above: Performed By: #### L 500.2500, L100.0100 ####[facility] [address] [place], [address] Chloride [Moles/Vol] 112 mmol/L High 98-107 [facility] Comment on above: Performed By: #### L 500.2500, L100.0100 ####[facility] [address] [place], [address] CO2 [Moles/Vol] 31.0 mmol/L Normal 21.0-32.0 [facility] Comment on above: Performed By: #### L 500.2500, L100.0100 ####[facility] [address] [place], [address] Creatinine [Mass/Vol] 1.01 mg/dL Normal 0.70-1.30 [facility] Comment on above: Result Comment: The validity of the calculated GFR GFRAA in patients over70 years has not been determined. Clinical correlation isessential. Performed By: #### L 500.2500, L100.0100 ####[facility] [address] [place], [address] ECRCL 121.89 ml/min Normal [facility] Comment on above: Performed By: #### L 500.2500, L100.0100 ####[facility] [address] [place], [address] EST GFR - AA 95 mL/min Normal >60 [facility] Comment on above: Result Comment: Afri can Citizen [place] GFR Calc Performed By: #### L 500.2500, L100.0100 ####[facility] [address] [place], [address] GAP 1 Low 5-15 [facility] Comment on above: Performed By: #### L 500.2500, L100.0100 ####[facility] [address] [place], [address] GFR/1.73 sq M.predicted among non-blacks MDRD (S/P/Bld) [Vol rate/Area] 79 mL/min/{1.73_m2} Normal >60 [facility] Comment on above: Result Comment: Non- GFR Calc Performed By: #### L 500.2500, L100.0100 ####[facility] [address] [place], [address] Glucose [Mass/Vol] 113 mg/dL High 74-106 [facility] Comment on above: Result Comment: Fast ing Glucose result from 100 to 125 mg/dLsuggests IMPAIRED HOMEOSTASIS per A.D.A. criteria. Performed By: #### L 500.2500, L100.0100 ####[facility] [address] [place], [address] Potassium [Moles/Vol] 3.9 mmol/L Normal 3.5-5.1 [facility] Comment on above: Performed By: #### L 500.2500, L100.0100 ####[facility] [address] [place], [address] Sodium [Moles/Vol] 144 mmol/L Normal 136-145 [facility] Comment on above: Performed By: #### L 500.2500, L100.0100 ####[facility] [address] [place], [address] Urea nitrogen [Mass/Vol] 26 mg/dL High 7-18 [facility] Comment on above: Performed By: #### L 500.2500, L100.0100 ####[facility] [address] [place], [address] Bedside Glucoseon 05-31-2024 FINGERSTICK GLU 95 mg/dL Normal 74-106 [facility] Comment on above: Result Comment: HUMBERTO GEMENT OF PATIENT CARE PER NURSING PROTOCOL Performed By: #### L 501.080 ####[facility] [address] [place], [address] FINGERSTICK GLU 166 mg/dL High 74-106 [facility] Comment on above: Result Comment: HUMBERTO GEMENT OF PATIENT CARE PER NURSING PROTOCOL Performed By: #### L 501.080 ####[facility] [address] [place], [address] CBC W/Diff, Automatedon 05-13 Anisocytosis Ql (Bld) 2+ Normal [facility] Comment on above: Performed By: #### L 500.2500, L100.0100 ####[facility] [address] [place], [address] STOMATOCYTE RARE Normal [facility] Comment on above: Performed By: #### L 500.2500, L100.0100 ####[facility] [address] [place], [address] LABORATORYOrdered By: Benigno Chin on 05-31-2024 Blood Glucose Testing Reason Routine (05/31/24 7:57 PM) [facility] Glucose [Mass/Vol] 145 mg/dL High 82 - 115 mg/dL [facility] Basic Metabolic Profile (BMP )on 05-30-2024 BUN/CRE 29.7 RATIO High 10-20 [facility] Comment on above: Performed By: #### L 500.2500 ####[facility] [address] [place], [address] CA,Total 8.7 mg/dL Normal 8.5-10.1 [facility] Comment on above: Performed By: #### L 500.2500 ####[facility] [address] [place], [address] Chloride [Moles/Vol] 114 mmol/L High 98-107 [facility] Comment on above: Performed By: #### L 500.2500 ####[facility] [address] [place], [address] CO2 [Moles/Vol] 32.0 mmol/L Normal 21.0-32.0 [facility] Comment on above: Performed By: #### L 500.2500 ####[facility] [address] [place], [address] Creatinine [Mass/Vol] 1.11 mg/dL Normal 0.70-1.30 [facility] Comment on above: Result Comment: The validity of the calculated GFR GFRAA in patients over70 years has not been determined. Clinical correlation isessential. Performed By: #### L 500.2500 ####[facility] [address] [place], [address] ECRCL 111.20 ml/min Normal [facility] Comment on above: Performed By: #### L 500.2500 ####[facility] [address] [place], [address] EST GFR - AA 85 mL/min Normal >60 [facility] Comment on above: Result Comment: Afri can [place] GFR Calc Performed By: #### L 500.2500 ####[facility] [address] [place], [address] GAP -1 Low 5-15 [facility] Comment on above: Performed By: #### L 500.2500 ####[facility] [address] [place], [address] GFR/1.73 sq M.predicted among non-blacks MDRD (S/P/Bld) [Vol rate/Area] 71 mL/min/{1.73_m2} Normal >60 [facility] Comment on above: Result Comment: Non- GFR Calc Performed By: #### L 500.2500 ####[facility] [address] [place], [address] Glucose [Mass/Vol] 104 mg/dL Normal 74-106 [facility] Comment on above: Result Comment: Fast ing Glucose result from 100 to 125 mg/dLsuggests IMPAIRED HOMEOSTASIS per A.D.A. criteria. Performed By: #### L 500.2500 ####[facility] [address] [place], [address] Potassium [Moles/Vol] 3.8 mmol/L Normal 3.5-5.1 [facility] Comment on above: Performed By: #### L 500.2500 ####[facility] [address] [place], [address] Sodium [Moles/Vol] 146 mmol/L High 136-145 [facility] Comment on above: Performed By: #### L 500.2500 ####[facility] [address] [place], [address] Urea nitrogen [Mass/Vol] 33 mg/dL High 7-18 [facility] Comment on above: Performed By: #### L 500.2500 ####[facility] [address] [place], [address] Bedside Glucoseon 05-30-2024 FINGERSTICK GLU 187 mg/dL High 74-106 [facility] Comment on above: Result Comment: HUMBERTO GEMENT OF PATIENT CARE PER NURSING PROTOCOL Performed By: #### L 501.080 ####[facility] [address] [place], [address] FINGERSTICK GLU 123 mg/dL High 74-106 [facility] Comment on above: Result Comment: HUMBERTO GEMENT OF PATIENT CARE PER NURSING PROTOCOL Performed By: #### L 501.080 ####[facility] [address] [place], [address] FINGERSTICK GLU 102 mg/dL Normal 74-106 [facility] Comment on above: Result Comment: HUMBERTO GEMENT OF PATIENT CARE PER NURSING PROTOCOL Performed By: #### L 501.080 ####[facility] [address] [place], [address] CBC-Complete Blood Cnt No Di ffon 05-30-2024 Erythrocyte distribution width (RBC) [Ratio] 19.4 % High 11.6-14.6 [facility] Comment on above: Order Comment: Comme nts: can add onto AM labs if able Performed By: #### L 100.4500, L100.0500 ####[facility] [address] [place], [address] Hematocrit (Bld) [Volume fraction] 28.9 % Low 40-54 [facility] Comment on above: Order Comment: Comme nts: can add onto AM labs if able Performed By: #### L 100.4500, L100.0500 ####[facility] [address] [place], [address] Hemoglobin (Bld) [Mass/Vol] 8.2 g/dL Low 13.0-16.5 [facility] Comment on above: Order Comment: Comme nts: can add onto AM labs if able Performed By: #### L 100.4500, L100.0500 ####[facility] [address] [place], [address] MCH (RBC) [Entitic mass] 29.4 pg Normal 27.0-32.0 [facility] Comment on above: Order Comment: Comme nts: can add onto AM labs if able Performed By: #### L 100.4500, L100.0500 ####[facility] [address] [place], [address] MCHC (RBC) [Mass/Vol] 28.4 g/dL Low 32-36 [facility] Comment on above: Order Comment: Comme nts: can add onto AM labs if able Performed By: #### L 100.4500, L100.0500 ####[facility] [address] [place], [address] MCV (RBC) [Entitic vol] 103.6 fL High 80-94 [facility] Comment on above: Order Comment: Comme nts: can add onto AM labs if able Performed By: #### L 100.4500, L100.0500 ####[facility] [address] [place], [address] Platelet mean volume (Bld) [Entitic vol] 10.4 fL Normal 6.2-12.0 [facility] Comment on above: Order Comment: Comme nts: can add onto AM labs if able Performed By: #### L 100.4500, L100.0500 ####[facility] [address] [place], [address] Platelets (Bld) [#/Vol] 140 10*3/uL Low 150-450 [facility] Comment on above: Order Comment: Comme nts: can add onto AM labs if able Performed By: #### L 100.4500, L100.0500 ####[facility] [address] [place], [address] RBC (Bld) [#/Vol] 2.79 10*6/uL Low 4.6-6.2 [facility] Comment on above: Order Comment: Comme nts: can add onto AM labs if able Performed By: #### L 100.4500, L100.0500 ####[facility] [address] [place], [address] RDW SD 72.3 fl High 35.1-43.9 [facility] Comment on above: Order Comment: Comme nts: can add onto AM labs if able Performed By: #### L 100.4500, L100.0500 ####[facility] [address] [place], [address] WBC (Bld) [#/Vol] 4.1 10*3/uL Low 4.4-11.0 [facility] Comment on above: Order Comment: Comme nts: can add onto AM labs if able Performed By: #### L 100.4500, L100.0500 ####[facility] [address] [place], [address] Differential Commenton 05-30 SMEAR COMMENT COMMENT Normal [facility] Comment on above: Order Comment: Comme nts: can add onto AM labs if able Result Comment: 1+ A NISO. Performed By: #### L 100.4500, L100.0500 ####[facility] [address] [place], [address] Bedside Glucoseon 05-29-2024 FINGERSTICK GLU 176 mg/dL High 74-106 [facility] Comment on above: Result Comment: HUMBERTO GEMENT OF PATIENT CARE PER NURSING PROTOCOL Performed By: #### L 501.080 ####[facility] [address] [place], [address] FINGERSTICK GLU 147 mg/dL High 74-106 [facility] Comment on above: Result Comment: HUMBERTO GEMENT OF PATIENT CARE PER NURSING PROTOCOL Performed By: #### L 501.080 ####[facility] [address] [place], [address] FINGERSTICK GLU 116 mg/dL High 74-106 [facility] Comment on above: Result Comment: HUMBERTO GEMENT OF PATIENT CARE PER NURSING PROTOCOL Performed By: #### L 501.080 ####[facility] [address] [place], [address] FINGERSTICK GLU 94 mg/dL Normal 74-106 [facility] Comment on above: Result Comment: HUMBERTO GEMENT OF PATIENT CARE PER NURSING PROTOCOL Performed By: #### L 501.080 ####[facility] [address] [place], [address] CBC W/Diff, Automatedon 11- SMEAR COMMENT COMMENT Normal [facility] Comment on above: Result Comment: 1+ A NISO. Performed By: #### L 500.4050, L100.0100 ####[facility] [address] [place], [address] Comprehensive Metabolic Prof ilon 05-29-2024 Albumin [Mass/Vol] 2.1 g/dL Low 3.2-5.0 [facility] Comment on above: Performed By: #### L 500.4050, L100.0100 ####[facility] [address] [place], [address] Albumin/Globulin [Mass ratio] 0.5 {ratio} Low 0.9-2.4 [facility] Comment on above: Performed By: #### L 500.4050, L100.0100 ####[facility] [address] [place], [address] ALK P 107 U/L Normal 45-117 [facility] Comment on above: Performed By: #### L 500.4050, L100.0100 ####[facility] [address] [place], [address] ALT [Catalytic activity/Vol] 32 U/L Normal 16-61 [facility] Comment on above: Performed By: #### L 500.4050, L100.0100 ####[facility] [address] [place], [address] AST [Catalytic activity/Vol] 52 U/L High 15-37 [facility] Comment on above: Performed By: #### L 500.4050, L100.0100 ####[facility] [address] [place], [address] Bilirubin [Mass/Vol] 0.70 mg/dL Normal 0.20-1.00 [facility] Comment on above: Result Comment: For patients on eltrombopag therapy, use of Dimension [place] TBIL is not recommended. Performed By: #### L 500.4050, L100.0100 ####[facility] [address] [place], [address] BUN/CRE 34.2 RATIO High 10-20 [facility] Comment on above: Performed By: #### L 500.4050, L100.0100 ####[facility] [address] [place], [address] CA,Total 8.6 mg/dL Normal 8.5-10.1 [facility] Comment on above: Performed By: #### L 500.4050, L100.0100 ####[facility] [address] [place], [address] Chloride [Moles/Vol] 114 mmol/L High 98-107 [facility] Comment on above: Performed By: #### L 500.4050, L100.0100 ####[facility] [address] [place], [address] CO2 [Moles/Vol] 32.0 mmol/L Normal 21.0-32.0 [facility] Comment on above: Performed By: #### L 500.4050, L100.0100 ####[facility] [address] [place], [address] Creatinine [Mass/Vol] 1.11 mg/dL Normal 0.70-1.30 [facility] Comment on above: Result Comment: The validity of the calculated GFR GFRAA in patients over70 years has not been determined. Clinical correlation isessential. Performed By: #### L 500.4050, L100.0100 ####[facility] [address] [place], [address] ECRCL 111.20 ml/min Normal [facility] Comment on above: Performed By: #### L 500.4050, L100.0100 ####[facility] [address] [place], [address] EST GFR - AA 85 mL/min Normal >60 [facility] Comment on above: Result Comment: Afri can Citizen [place] GFR Calc Performed By: #### L 500.4050, L100.0100 ####[facility] [address] [place], [address] GAP 1 Low 5-15 [facility] Comment on above: Performed By: #### L 500.4050, L100.0100 ####[facility] [address] [place], [address] GFR/1.73 sq M.predicted among non-blacks MDRD (S/P/Bld) [Vol rate/Area] 71 mL/min/{1.73_m2} Normal >60 [facility] Comment on above: Result Comment: Non- GFR Calc Performed By: #### L 500.4050, L100.0100 ####[facility] [address] [place], [address] Globulin (S) [Mass/Vol] 4.0 g/dL Normal 2.2-4.2 [facility] Comment on above: Performed By: #### L 500.4050, L100.0100 ####[facility] [address] [place], [address] Glucose [Mass/Vol] 107 mg/dL High 74-106 [facility] Comment on above: Result Comment: Fast ing Glucose result from 100 to 125 mg/dLsuggests IMPAIRED HOMEOSTASIS per A.D.A. criteria. Performed By: #### L 500.4050, L100.0100 ####[facility] [address] [place], [address] Potassium [Moles/Vol] 3.2 mmol/L Low 3.5-5.1 [facility] Comment on above: Performed By: #### L 500.4050, L100.0100 ####[facility] [address] [place], [address] Sodium [Moles/Vol] 147 mmol/L High 136-145 [facility] Comment on above: Performed By: #### L 500.4050, L100.0100 ####[facility] [address] [place], [address] T PROT 6.1 g/dL Low 6.4-8.2 [facility] Comment on above: Performed By: #### L 500.4050, L100.0100 ####[facility] [address] [place], [address] Urea nitrogen [Mass/Vol] 38 mg/dL High 7-18 [facility] Comment on above: Performed By: #### L 500.4050, L100.0100 ####[facility] [address] [place], [address] Bedside Glucoseon 05-28-2024 FINGERSTICK GLU 132 mg/dL High 74-106 [facility] Comment on above: Result Comment: HUMBERTO LOPEZ OF PATIENT CARE PER NURSING PROTOCOL Performed By: #### L 501.080 ####[facility] [address] [place], [address] FINGERSTICK GLU 178 mg/dL High 74-106 [facility] Comment on above: Result Comment: HUMBERTO GEMENT OF PATIENT CARE PER NURSING PROTOCOL Performed By: #### L 501.080 ####[facility] [address] [place], [address] FINGERSTICK GLU 128 mg/dL High 74-106 [facility] Comment on above: Result Comment: HUMBERTO GEMENT OF PATIENT CARE PER NURSING PROTOCOL Performed By: #### L 501.080 ####[facility] [address] [place], [address] FINGERSTICK GLU 145 mg/dL High 74-106 [facility] Comment on above: Result Comment: HUMBERTO GEMENT OF PATIENT CARE PER NURSING PROTOCOL Performed By: #### L 501.080 ####[facility] [address] [place], [address] FINGERSTICK GLU 91 mg/dL Normal 74-106 [facility] Comment on above: Result Comment: HUMBERTO GEMENT OF PATIENT CARE PER NURSING PROTOCOL Performed By: #### L 501.080 ####[facility] [address] [place], [address] FINGERSTICK GLU 98 mg/dL Normal 74-106 [facility] Comment on above: Result Comment: HUMBERTO GEMENT OF PATIENT CARE PER NURSING PROTOCOL Performed By: #### L 501.080 ####[facility] [address] [place], [address] Basic Metabolic Profile (BMP )on 05-27-2024 BUN/CRE 31.2 RATIO High 10-20 [facility] Comment on above: Performed By: #### L 100.0100, L500.2500 ####[facility] [address] [place], [address] CA,Total 8.9 mg/dL Normal 8.5-10.1 [facility] Comment on above: Performed By: #### L 100.0100, L500.2500 ####[facility] [address] [place], [address] Chloride [Moles/Vol] 115 mmol/L High 98-107 [facility] Comment on above: Performed By: #### L 100.0100, L500.2500 ####[facility] [address] [place], [address] CO2 [Moles/Vol] 34.0 mmol/L High 21.0-32.0 [facility] Comment on above: Performed By: #### L 100.0100, L500.2500 ####[facility] [address] [place], [address] Creatinine [Mass/Vol] 1.60 mg/dL High 0.70-1.30 [facility] Comment on above: Result Comment: The validity of the calculated GFR GFRAA in patients over70 years has not been determined. Clinical correlation isessential. Performed By: #### L 100.0100, L500.2500 ####[facility] [address] [place], [address] ECRCL 76.97 ml/min Normal [facility] Comment on above: Performed By: #### L 100.0100, L500.2500 ####[facility] [address] [place], [address] EST GFR - AA 56 mL/min Low >60 [facility] Comment on above: Result Comment: Afri can Citizen [place] GFR Calc Performed By: #### L 100.0100, L500.2500 ####[facility] [address] [place], [address] GAP 1 Low 5-15 [facility] Comment on above: Performed By: #### L 100.0100, L500.2500 ####[facility] [address] [place], [address] GFR/1.73 sq M.predicted among non-blacks MDRD (S/P/Bld) [Vol rate/Area] 46 mL/min/{1.73_m2} Low >60 [facility] Comment on above: Result Comment: Non- GFR Calc Performed By: #### L 100.0100, L500.2500 ####[facility] [address] [place], [address] Glucose [Mass/Vol] 112 mg/dL High 74-106 [facility] Comment on above: Result Comment: Fast ing Glucose result from 100 to 125 mg/dLsuggests IMPAIRED HOMEOSTASIS per A.D.A. criteria. Performed By: #### L 100.0100, L500.2500 ####[facility] [address] [place], [address] Potassium [Moles/Vol] 3.6 mmol/L Normal 3.5-5.1 [facility] Comment on above: Performed By: #### L 100.0100, L500.2500 ####[facility] [address] [place], [address] Sodium [Moles/Vol] 150 mmol/L High 136-145 [facility] Comment on above: Performed By: #### L 100.0100, L500.2500 ####[facility] [address] [place], [address] Urea nitrogen [Mass/Vol] 50 mg/dL High 7-18 [facility] Comment on above: Performed By: #### L 100.0100, L500.2500 ####[facility] [address] [place], [address] Bedside Glucoseon 05-27-2024 FINGERSTICK GLU 111 mg/dL High 74-106 [facility] Comment on above: Result Comment: HUMBERTO LOPEZ OF PATIENT CARE PER NURSING PROTOCOL Performed By: #### L 501.080 ####[facility] [address] [place], [address] FINGERSTICK GLU 93 mg/dL Normal 74-106 [facility] Comment on above: Result Comment: HUMBERTO GEMENT OF PATIENT CARE PER NURSING PROTOCOL Performed By: #### L 501.080 ####[facility] [address] [place], [address] FINGERSTICK GLU 111 mg/dL High 74-106 [facility] Comment on above: Result Comment: HUMBERTO GEMENT OF PATIENT CARE PER NURSING PROTOCOL Performed By: #### L 501.080 ####[facility] [address] [place], [address] CBC W/Diff, Automatedon 11- HYPOCHROMASIA 2+ Normal [facility] Comment on above: Performed By: #### L 100.0100, L500.2500 ####[facility] [address] [place], [address] MACROCYTOSIS 1+ Normal [facility] Comment on above: Performed By: #### L 100.0100, L500.2500 ####[facility] [address] [place], [address] OVALOCYTE 2+ Normal [facility] Comment on above: Performed By: #### L 100.0100, L500.2500 ####[facility] [address] [place], [address] Anisocytosis Ql (Bld) 3+ Normal [facility] Comment on above: Performed By: #### L 100.0100, L500.2500 ####[facility] [address] [place], [address] PLT EST SLT DEC Normal ADEQ [facility] Comment on above: Performed By: #### L 100.0100, L500.2500 ####[facility] [address] [place], [address] SMEAR COMMENT SCANNED Normal [facility] Comment on above: Performed By: #### L 100.0100, L500.2500 ####[facility] [address] [place], [address] Basic Metabolic Profile (BMP )on 05-26-2024 BUN/CRE 30.2 RATIO High 10-20 [facility] Comment on above: Performed By: #### L 100.0100, L500.2500 ####[facility] [address] [place], [address] CA,Total 8.5 mg/dL Normal 8.5-10.1 [facility] Comment on above: Performed By: #### L 100.0100, L500.2500 ####[facility] [address] [place], [address] Chloride [Moles/Vol] 112 mmol/L High 98-107 [facility] Comment on above: Performed By: #### L 100.0100, L500.2500 ####[facility] [address] [place], [address] CO2 [Moles/Vol] 33.0 mmol/L High 21.0-32.0 [facility] Comment on above: Performed By: #### L 100.0100, L500.2500 ####[facility] [address] [place], [address] Creatinine [Mass/Vol] 1.79 mg/dL High 0.70-1.30 [facility] Comment on above: Result Comment: The validity of the calculated GFR GFRAA in patients over70 years has not been determined. Clinical correlation isessential. Performed By: #### L 100.0100, L500.2500 ####[facility] [address] [place], [address] ECRCL 68.75 ml/min Normal [facility] Comment on above: Performed By: #### L 100.0100, L500.2500 ####[facility] [address] [place], [address] EST GFR - AA 49 mL/min Low >60 [facility] Comment on above: Result Comment: Afri can Citizen [place] GFR Calc Performed By: #### L 100.0100, L500.2500 ####[facility] [address] [place], [address] GAP 4 Low 5-15 [facility] Comment on above: Performed By: #### L 100.0100, L500.2500 ####[facility] [address] [place], [address] GFR/1.73 sq M.predicted among non-blacks MDRD (S/P/Bld) [Vol rate/Area] 41 mL/min/{1.73_m2} Low >60 [facility] Comment on above: Result Comment: Non- GFR Calc Performed By: #### L 100.0100, L500.2500 ####[facility] [address] [place], [address] Glucose [Mass/Vol] 106 mg/dL Normal 74-106 [facility] Comment on above: Result Comment: Fast ing Glucose result from 100 to 125 mg/dLsuggests IMPAIRED HOMEOSTASIS per A.D.A. criteria. Performed By: #### L 100.0100, L500.2500 ####[facility] [address] [place], [address] Potassium [Moles/Vol] 3.7 mmol/L Normal 3.5-5.1 [facility] Comment on above: Performed By: #### L 100.0100, L500.2500 ####[facility] [address] [place], [address] Sodium [Moles/Vol] 149 mmol/L High 136-145 [facility] Comment on above: Performed By: #### L 100.0100, L500.2500 ####[facility] [address] [place], [address] Urea nitrogen [Mass/Vol] 54 mg/dL High 7-18 [facility] Comment on above: Performed By: #### L 100.0100, L500.2500 ####[facility] [address] [place], [address] Bedside Glucoseon 05-26-2024 FINGERSTICK GLU 137 mg/dL High 74-106 [facility] Comment on above: Result Comment: HUMBERTO GEMENT OF PATIENT CARE PER NURSING PROTOCOL Performed By: #### L 501.080 ####[facility] [address] [place], [address] FINGERSTICK GLU 103 mg/dL Normal 74-106 [facility] Comment on above: Result Comment: HUMBERTO GEMENT OF PATIENT CARE PER NURSING PROTOCOL Performed By: #### L 501.080 ####[facility] [address] [place], [address] FINGERSTICK GLU 83 mg/dL Normal 74-106 [facility] Comment on above: Result Comment: HUMBERTO GEMENT OF PATIENT CARE PER NURSING PROTOCOL Performed By: #### L 501.080 ####[facility] [address] [place], [address] CBC W/Diff, Automatedon 05-12 Absolute Lymph 0.67 X10 3/uL Low 0.83-4.51 [facility] Comment on above: Performed By: #### L 100.0100, L500.2500 ####[facility] [address] [place], [address] Absolute Neut 3.3 X10 3/uL Normal 2.0-7.7 [facility] Comment on above: Performed By: #### L 100.0100, L500.2500 ####[facility] [address] [place], [address] Basophils/100 WBC (Bld) 0.4 % Normal 0-1 [facility] Comment on above: Performed By: #### L 100.0100, L500.2500 ####[facility] [address] [place], [address] Eosinophils/100 WBC (Bld) 2.6 % Normal 0-5 [facility] Comment on above: Performed By: #### L 100.0100, L500.2500 ####[facility] [address] [place], [address] Erythrocyte distribution width (RBC) [Ratio] 19.5 % High 11.6-14.6 [facility] Comment on above: Performed By: #### L 100.0100, L500.2500 ####[facility] [address] [place], [address] Hematocrit (Bld) [Volume fraction] 25.9 % Low 40-54 [facility] Comment on above: Performed By: #### L 100.0100, L500.2500 ####[facility] [address] [place], [address] Hemoglobin (Bld) [Mass/Vol] 7.3 g/dL Low 13.0-16.5 [facility] Comment on above: Performed By: #### L 100.0100, L500.2500 ####[facility] [address] [place], [address] IG% 0.700 Normal 0.0-0.9 [facility] Comment on above: Result Comment: IG% - Immature Granulocytes (promyelocytes, myelocytes andmetamyelocytes) > 1% indicates that a LEFT SHIFT is Present. Performed By: #### L 100.0100, L500.2500 ####[facility] [address] [place], [address] Lymphocytes/100 WBC (Bld) 14.6 % Low 19-41 [facility] Comment on above: Performed By: #### L 100.0100, L500.2500 ####[facility] [address] [place], [address] MCH (RBC) [Entitic mass] 29.0 pg Normal 27.0-32.0 [facility] Comment on above: Performed By: #### L 100.0100, L500.2500 ####[facility] [address] [place], [address] MCHC (RBC) [Mass/Vol] 28.2 g/dL Low 32-36 [facility] Comment on above: Performed By: #### L 100.0100, L500.2500 ####[facility] [address] [place], [address] MCV (RBC) [Entitic vol] 102.8 fL High 80-94 [facility] Comment on above: Performed By: #### L 100.0100, L500.2500 ####[facility] [address] [place], [address] Monocytes/100 WBC (Bld) 10.7 % High 0-10 [facility] Comment on above: Performed By: #### L 100.0100, L500.2500 ####[facility] [address] [place], [address] Neutrophils/100 WBC (Bld) 71.0 % High 47-70 [facility] Comment on above: Performed By: #### L 100.0100, L500.2500 ####[facility] [address] [place], [address] Nucleated RBC (Bld) [#/Vol] 0 10*3/uL Normal 0-5 [facility] Comment on above: Performed By: #### L 100.0100, L500.2500 ####[facility] [address] [place], [address] Platelet mean volume (Bld) [Entitic vol] 9.8 fL Normal 6.2-12.0 [facility] Comment on above: Performed By: #### L 100.0100, L500.2500 ####[facility] [address] [place], [address] Platelets (Bld) [#/Vol] 119 10*3/uL Low 150-450 [facility] Comment on above: Performed By: #### L 100.0100, L500.2500 ####[facility] [address] [place], [address] RBC (Bld) [#/Vol] 2.52 10*6/uL Low 4.6-6.2 [facility] Comment on above: Performed By: #### L 100.0100, L500.2500 ####[facility] [address] [place], [address] RDW SD 71.4 fl High 35.1-43.9 [facility] Comment on above: Performed By: #### L 100.0100, L500.2500 ####[facility] [address] [place], [address] WBC (Bld) [#/Vol] 4.6 10*3/uL Normal 4.4-11.0 [facility] Comment on above: Performed By: #### L 100.0100, L500.2500 ####[facility] [address] [place], [address] Modified Barium Swallow Stud yon 05-26-2024 Modified Barium Swallow Study Normal [facility] Bedside Glucoseon 05-25-2024 FINGERSTICK GLU 113 mg/dL High 74-106 [facility] Comment on above: Result Comment: HUMBERTO LOPEZ OF PATIENT CARE PER NURSING PROTOCOL Performed By: #### L 501.080 ####[facility] [address] [place], [address] FINGERSTICK GLU 104 mg/dL Normal 74-106 [facility] Comment on above: Result Comment: HUMBERTO GEMENT OF PATIENT CARE PER NURSING PROTOCOL Performed By: #### L 501.080 ####[facility] [address] [place], [address] FINGERSTICK GLU 99 mg/dL Normal 74-106 [facility] Comment on above: Result Comment: HUMBERTO GEMENT OF PATIENT CARE PER NURSING PROTOCOL Performed By: #### L 501.080 ####[facility] [address] [place], [address] FINGERSTICK GLU 103 mg/dL Normal 74-106 [facility] Comment on above: Result Comment: HUMBERTO GEMENT OF PATIENT CARE PER NURSING PROTOCOL Performed By: #### L 501.080 ####[facility] [address] [place], [address] FINGERSTICK GLU 107 mg/dL High 74-106 [facility] Comment on above: Result Comment: HUMBERTO GEMENT OF PATIENT CARE PER NURSING PROTOCOL Performed By: #### L 501.080 ####[facility] [address] [place], [address] Blood Gases by [facility] 05-25- 024 Base excess Calc (Bld) [Moles/Vol] 8 mmol/L High -2 to +2 [facility] Comment on above: Performed By: #### L 9000.0800 ####[facility] [address] [place], [address] Blood Gas Type ART Normal [facility] Comment on above: Performed By: #### L 9000.0800 ####[facility] [address] [place], [address] CO2 [Moles/Vol] 35 mmol/L Normal [facility] Comment on above: Performed By: #### L 9000.0800 ####[facility] [address] [place], [address] Comment 28 14 Normal [facility] Comment on above: Performed By: #### L 9000.0800 ####[facility] [address] [place], [address] FI02 50.0 Normal [facility] Comment on above: Performed By: #### L 9000.0800 ####[facility] [address] [place], [address] HCO3 (Bld) [Moles/Vol] 33.1 mmol/L High 22-26 [facility] Comment on above: Performed By: #### L 9000.0800 ####[facility] [address] [place], [address] Mode Not entered [facility] Comment on above: Performed By: #### L 9000.0800 ####[facility] [address] [place], [address] O2 Delivery Dev Not entered [facility] Comment on above: Performed By: #### L 9000.0800 ####[facility] [address] [place], [address] pCO2 55.1 mmHg High 35-45 [facility] Comment on above: Performed By: #### L 9000.0800 ####[facility] [address] [place], [address] PEEP 10 Normal [facility] Comment on above: Performed By: #### L 9000.0800 ####[facility] [address] [place], [address] pH (Bld) 7.39 [pH] Normal 7.35-7.45 [facility] Comment on above: Performed By: #### L 9000.0800 ####[facility] [address] [place], [address] PO2 90 mmHG Normal 75-100 [facility] Comment on above: Performed By: #### L 9000.0800 ####[facility] [address] [place], [address] SITE L Radial Normal [facility] Comment on above: Performed By: #### L 9000.0800 ####[facility] [address] [place], [address] SO2 97 Normal 95-99 [facility] Comment on above: Performed By: #### L 9000.0800 ####[facility] [address] [place], [address] Vt 550.0 mL Normal [facility] Comment on above: Performed By: #### L 9000.0800 ####[facility] [address] [place], [address] CBC W/Diff, Automatedon 05-12 Anisocytosis Ql (Bld) 2+ Normal [facility] Comment on above: Performed By: #### L 100.0100, L500.4050 ####[facility] [address] [place], [address] SMEAR COMMENT SCANNED Normal [facility] Comment on above: Result Comment: LYMP HOPENIA PRESENT Performed By: #### L 100.0100, L500.4050 ####[facility] [address] [place], [address] Comprehensive Metabolic Prof ilon 05-25-2024 Albumin [Mass/Vol] 2.1 g/dL Low 3.2-5.0 [facility] Comment on above: Performed By: #### L 100.0100, L500.4050 ####[facility] [address] [place], [address] Albumin/Globulin [Mass ratio] 0.5 {ratio} Low 0.9-2.4 [facility] Comment on above: Performed By: #### L 100.0100, L500.4050 ####[facility] [address] [place], [address] ALK P 93 U/L Normal 45-117 [facility] Comment on above: Performed By: #### L 100.0100, L500.4050 ####[facility] [address] [place], [address] ALT [Catalytic activity/Vol] 26 U/L Normal 16-61 [facility] Comment on above: Performed By: #### L 100.0100, L500.4050 ####[facility] [address] [place], [address] AST [Catalytic activity/Vol] 114 U/L High 15-37 [facility] Comment on above: Performed By: #### L 100.0100, L500.4050 ####[facility] [address] [place], [address] Bilirubin [Mass/Vol] 0.90 mg/dL Normal 0.20-1.00 [facility] Comment on above: Result Comment: For patients on eltrombopag therapy, use of Dimension [place] TBIL is not recommended. Performed By: #### L 100.0100, L500.4050 ####[facility] [address] [place], [address] BUN/CRE 27.3 RATIO High 10-20 [facility] Comment on above: Performed By: #### L 100.0100, L500.4050 ####[facility] [address] [place], [address] CA,Total 8.3 mg/dL Low 8.5-10.1 [facility] Comment on above: Performed By: #### L 100.0100, L500.4050 ####[facility] [address] [place], [address] Chloride [Moles/Vol] 109 mmol/L High 98-107 [facility] Comment on above: Performed By: #### L 100.0100, L500.4050 ####[facility] [address] [place], [address] CO2 [Moles/Vol] 34.0 mmol/L High 21.0-32.0 [facility] Comment on above: Performed By: #### L 100.0100, L500.4050 ####[facility] [address] [place], [address] Creatinine [Mass/Vol] 1.83 mg/dL High 0.70-1.30 [facility] Comment on above: Result Comment: The validity of the calculated GFR GFRAA in patients over70 years has not been determined. Clinical correlation isessential. Performed By: #### L 100.0100, L500.4050 ####[facility] [address] [place], [address] ECRCL 67.25 ml/min Normal [facility] Comment on above: Performed By: #### L 100.0100, L500.4050 ####[facility] [address] [place], [address] EST GFR - AA 48 mL/min Low >60 [facility] Comment on above: Result Comment: Afri can Citizen [place] GFR Calc Performed By: #### L 100.0100, L500.4050 ####[facility] [address] [place], [address] GAP 3 Low 5-15 [facility] Comment on above: Performed By: #### L 100.0100, L500.4050 ####[facility] [address] [place], [address] GFR/1.73 sq M.predicted among non-blacks MDRD (S/P/Bld) [Vol rate/Area] 40 mL/min/{1.73_m2} Low >60 [facility] Comment on above: Result Comment: Non- GFR Calc Performed By: #### L 100.0100, L500.4050 ####[facility] [address] [place], [address] Globulin (S) [Mass/Vol] 3.9 g/dL Normal 2.2-4.2 [facility] Comment on above: Performed By: #### L 100.0100, L500.4050 ####[facility] [address] [place], [address] Glucose [Mass/Vol] 107 mg/dL High 74-106 [facility] Comment on above: Result Comment: Fast ing Glucose result from 100 to 125 mg/dLsuggests IMPAIRED HOMEOSTASIS per A.D.A. criteria. Performed By: #### L 100.0100, L500.4050 ####[facility] [address] [place], [address] Potassium [Moles/Vol] 3.7 mmol/L Normal 3.5-5.1 [facility] Comment on above: Performed By: #### L 100.0100, L500.4050 ####[facility] [address] [place], [address] Sodium [Moles/Vol] 146 mmol/L High 136-145 [facility] Comment on above: Performed By: #### L 100.0100, L500.4050 ####[facility] [address] [place], [address] T PROT 6.0 g/dL Low 6.4-8.2 [facility] Comment on above: Performed By: #### L 100.0100, L500.4050 ####[facility] [address] [place], [address] Urea nitrogen [Mass/Vol] 50 mg/dL High 7-18 [facility] Comment on above: Performed By: #### L 100.0100, L500.4050 ####[facility] [address] [place], [address] Basic Metabolic Profile (BMP )on 05-24-2024 BUN/CRE 27.0 RATIO High 10-20 [facility] Comment on above: Performed By: #### L 500.2500, L100.0100 ####[facility] [address] [place], [address] CA,Total 7.8 mg/dL Low 8.5-10.1 [facility] Comment on above: Performed By: #### L 500.2500, L100.0100 ####[facility] [address] [place], [address] Chloride [Moles/Vol] 106 mmol/L Normal 98-107 [facility] Comment on above: Performed By: #### L 500.2500, L100.0100 ####[facility] [address] [place], [address] CO2 [Moles/Vol] 34.0 mmol/L High 21.0-32.0 [facility] Comment on above: Performed By: #### L 500.2500, L100.0100 ####[facility] [address] [place], [address] Creatinine [Mass/Vol] 1.78 mg/dL High 0.70-1.30 [facility] Comment on above: Result Comment: The validity of the calculated GFR GFRAA in patients over70 years has not been determined. Clinical correlation isessential. Performed By: #### L 500.2500, L100.0100 ####[facility] [address] [place], [address] ECRCL 69.91 ml/min Normal [facility] Comment on above: Performed By: #### L 500.2500, L100.0100 ####[facility] [address] [place], [address] EST GFR - AA 50 mL/min Low >60 [facility] Comment on above: Result Comment: Afri can [place] GFR Calc Performed By: #### L 500.2500, L100.0100 ####[facility] [address] [place], [address] GAP 5 Normal 5-15 [facility] Comment on above: Performed By: #### L 500.2500, L100.0100 ####[facility] [address] [place], [address] GFR/1.73 sq M.predicted among non-blacks MDRD (S/P/Bld) [Vol rate/Area] 41 mL/min/{1.73_m2} Low >60 [facility] Comment on above: Result Comment: Non- GFR Calc Performed By: #### L 500.2500, L100.0100 ####[facility] [address] [place], [address] Glucose [Mass/Vol] 176 mg/dL High 74-106 [facility] Comment on above: Result Comment: Fast ing Glucose result greater than or equal to 126 mg/dLsuggests DIABETES MELLITUS per A.D.A. criteria. Performed By: #### L 500.2500, L100.0100 ####[facility] [address] [place], [address] Potassium [Moles/Vol] 3.6 mmol/L Normal 3.5-5.1 [facility] Comment on above: Performed By: #### L 500.2500, L100.0100 ####[facility] [address] [place], [address] Sodium [Moles/Vol] 144 mmol/L Normal 136-145 [facility] Comment on above: Performed By: #### L 500.2500, L100.0100 ####[facility] [address] [place], [address] Urea nitrogen [Mass/Vol] 48 mg/dL High 7-18 [facility] Comment on above: Performed By: #### L 500.2500, L100.0100 ####[facility] [address] [place], [address] Bedside Glucoseon 05-24-2024 FINGERSTICK GLU 128 mg/dL High 74-106 [facility] Comment on above: Result Comment: HUMBERTO GEMENT OF PATIENT CARE PER NURSING PROTOCOL Performed By: #### L 501.080 ####[facility] [address] [place], [address] FINGERSTICK GLU 165 mg/dL High 74-106 [facility] Comment on above: Result Comment: HUMBERTO GEMENT OF PATIENT CARE PER NURSING PROTOCOL Performed By: #### L 501.080 ####[facility] [address] [place], [address] FINGERSTICK GLU 163 mg/dL High 74-106 [facility] Comment on above: Result Comment: HUMBERTO GEMENT OF PATIENT CARE PER NURSING PROTOCOL Performed By: #### L 501.080 ####[facility] [address] [place], [address] Blood Gases by [facility] 024 CAROLYN TEST Positive Normal [facility] Comment on above: Performed By: #### L 9000.0800 ####[facility] [address] [place], [address] Base excess Calc (Bld) [Moles/Vol] 10 mmol/L High -2 to +2 [facility] Comment on above: Performed By: #### L 9000.0800 ####[facility] [address] [place], [address] Blood Gas Type ART Normal [facility] Comment on above: Performed By: #### L 9000.0800 ####[facility] [address] [place], [address] CO2 [Moles/Vol] 37 mmol/L Normal [facility] Comment on above: Performed By: #### L 9000.0800 ####[facility] [address] [place], [address] FI02 45.0 Normal [facility] Comment on above: Performed By: #### L 9000.0800 ####[facility] [address] [place], [address] HCO3 (Bld) [Moles/Vol] 34.8 mmol/L High 22-26 [facility] Comment on above: Performed By: #### L 9000.0800 ####[facility] [address] [place], [address] Mode AVAPS Normal [facility] Comment on above: Performed By: #### L 9000.0800 ####[facility] [address] [place], [address] O2 Delivery Dev BiPAP Normal [facility] Comment on above: Performed By: #### L 9000.0800 ####[facility] [address] [place], [address] pCO2 53.2 mmHg High 35-45 [facility] Comment on above: Performed By: #### L 9000.0800 ####[facility] [address] [place], [address] PEEP 10 Normal [facility] Comment on above: Performed By: #### L 9000.0800 ####[facility] [address] [place], [address] pH (Bld) 7.42 [pH] Normal 7.35-7.45 [facility] Comment on above: Performed By: #### L 9000.0800 ####[facility] [address] [place], [address] PO2 92 mmHG Normal 75-100 [facility] Comment on above: Performed By: #### L 9000.0800 ####[facility] [address] [place], [address] RR 12 Normal [facility] Comment on above: Performed By: #### L 9000.0800 ####[facility] [address] [place], [address] SITE L Radial Normal [facility] Comment on above: Performed By: #### L 9000.0800 ####[facility] [address] [place], [address] SO2 97 Normal 95-99 [facility] Comment on above: Performed By: #### L 9000.0800 ####[facility] [address] [place], [address] Vt 550.0 mL Normal [facility] Comment on above: Performed By: #### L 9000.0800 ####[facility] [address] [place], [address] CAROLYN TEST Positive Normal [facility] Comment on above: Performed By: #### L 9000.0800 ####[facility] [address] [place], [address] Base excess Calc (Bld) [Moles/Vol] 11 mmol/L High -2 to +2 [facility] Comment on above: Performed By: #### L 9000.0800 ####[facility] [address] [place], [address] Blood Gas Type ART Normal [facility] Comment on above: Performed By: #### L 9000.0800 ####[facility] [address] [place], [address] CO2 [Moles/Vol] 36 mmol/L Normal [facility] Comment on above: Performed By: #### L 0.0800 ####[facility] [address] [place], [address] FI02 40.0 Normal [facility] Comment on above: Performed By: #### L 0.0800 ####[facility] [address] [place], [address] HCO3 (Bld) [Moles/Vol] 34.6 mmol/L High 22-26 [facility] Comment on above: Performed By: #### L 0.0800 ####[facility] [address] [place], [address] Mode AC Normal [facility] Comment on above: Performed By: #### L 0.0800 ####[facility] [address] [place], [address] O2 Delivery Dev Adult Vent Normal [facility] Comment on above: Performed By: #### L 0.0800 ####[facility] [address] [place], [address] pCO2 50.3 mmHg High 35-45 [facility] Comment on above: Performed By: #### L 0.0800 ####[facility] [address] [place], [address] PEEP 5 Normal [facility] Comment on above: Performed By: #### L 0.0800 ####[facility] [address] [place], [address] pH (Bld) 7.45 [pH] Normal 7.35-7.45 [facility] Comment on above: Performed By: #### L 9000.0800 ####[facility] [address] [place], [address] PO2 68 mmHG Low 75-100 [facility] Comment on above: Performed By: #### L 0.0800 ####[facility] [address] [place], [address] RR 16 Normal [facility] Comment on above: Performed By: #### L 9000.0800 ####[facility] [address] [place], [address] SITE L Radial Normal [facility] Comment on above: Performed By: #### L 9000.0800 ####[facility] [address] [place], [address] SO2 94 Low 95-99 [facility] Comment on above: Performed By: #### L 9000.0800 ####[facility] [address] [place], [address] Vt 450.0 mL Normal [facility] Comment on above: Performed By: #### L 9000.0800 ####[facility] [address] [place], [address] CBC W/Diff, Automatedon 05-12 Anisocytosis Ql (Bld) 2+ Normal [facility] Comment on above: Performed By: #### L 500.2500, L100.0100 ####[facility] [address] [place], [address] Bedside Glucoseon 05-23-2024 FINGERSTICK GLU 150 mg/dL High 74-106 [facility] Comment on above: Result Comment: HUMBERTO GEMENT OF PATIENT CARE PER NURSING PROTOCOL Performed By: #### L 501.080 ####[facility] [address] [place], [address] FINGERSTICK GLU 134 mg/dL High 74-106 [facility] Comment on above: Result Comment: HUMBERTO GEMENT OF PATIENT CARE PER NURSING PROTOCOL Performed By: #### L 501.080 ####[facility] [address] [place], [address] FINGERSTICK GLU 140 mg/dL High 74-106 [facility] Comment on above: Result Comment: HUMBERTO GEMENT OF PATIENT CARE PER NURSING PROTOCOL Performed By: #### L 501.080 ####[facility] [address] [place], [address] FINGERSTICK GLU 137 mg/dL High 74-106 [facility] Comment on above: Result Comment: HUMBERTO GEMENT OF PATIENT CARE PER NURSING PROTOCOL Performed By: #### L 501.080 ####[facility] [address] [place], [address] FINGERSTICK GLU 136 mg/dL High 74-106 [facility] Comment on above: Result Comment: HUMBERTO GEMENT OF PATIENT CARE PER NURSING PROTOCOL Performed By: #### L 501.080 ####[facility] [address] [place], [address] Blood Gases by [facility] 024 CAROLYN TEST Positive Normal [facility] Comment on above: Performed By: #### L 9000.0800 ####[facility] [address] [place], [address] Base excess Calc (Bld) [Moles/Vol] 15 mmol/L High -2 to +2 [facility] Comment on above: Performed By: #### L 9000.0800 ####[facility] [address] [place], [address] Blood Gas Type ART Normal [facility] Comment on above: Performed By: #### L 9000.0800 ####[facility] [address] [place], [address] CO2 [Moles/Vol] 40 mmol/L Normal [facility] Comment on above: Performed By: #### L 9000.0800 ####[facility] [address] [place], [address] FI02 40.0 [facility] Comment on above: Performed By: #### L 9000.0800 ####[facility] [address] [place], [address] HCO3 (Bld) [Moles/Vol] 38.3 mmol/L High 22-26 [facility] Comment on above: Performed By: #### L 9000.0800 ####[facility] [address] [place], [address] Mode CPAP/PS Normal [facility] Comment on above: Performed By: #### L 9000.0800 ####[facility] [address] [place], [address] O2 Delivery Dev Adult Vent Normal [facility] Comment on above: Performed By: #### L 9000.0800 ####[facility] [address] [place], [address] pCO2 51.6 mmHg High 35-45 [facility] Comment on above: Performed By: #### L 9000.0800 ####[facility] [address] [place], [address] PEEP 5 Normal [facility] Comment on above: Performed By: #### L 9000.0800 ####[facility] [address] [place], [address] pH (Bld) 7.48 [pH] High 7.35-7.45 [facility] Comment on above: Performed By: #### L 9000.0800 ####[facility] [address] [place], [address] PO2 68 mmHG Low 75-100 [facility] Comment on above: Performed By: #### L 9000.0800 ####[facility] [address] [place], [address] SITE L Radial Normal [facility] Comment on above: Performed By: #### L 9000.0800 ####[facility] [address] [place], [address] SO2 94 Low 95-99 [facility] Comment on above: Performed By: #### L 9000.0800 ####[facility] [address] [place], [address] CBC W/Diff, Automatedon 11-2023 Absolute Lymph 0.42 X10 3/uL Low 0.83-4.51 [facility] Comment on above: Performed By: #### L 100.0100, L501.5200, L500.4050 ####[facility] [address] [place], [address] Absolute Neut 3.3 X10 3/uL Normal 2.0-7.7 [facility] Comment on above: Performed By: #### L 100.0100, L501.5200, L500.4050 ####[facility] [address] [place], [address] Basophils/100 WBC (Bld) 0.2 % Normal 0-1 [facility] Comment on above: Performed By: #### L 100.0100, L501.5200, L500.4050 ####[facility] [address] [place], [address] Eosinophils/100 WBC (Bld) 5.7 % High 0-5 [facility] Comment on above: Performed By: #### L 100.0100, L501.5200, L500.4050 ####[facility] [address] [place], [address] Erythrocyte distribution width (RBC) [Ratio] 19.2 % High 11.6-14.6 [facility] Comment on above: Performed By: #### L 100.0100, L501.5200, L500.4050 ####[facility] [address] [place], [address] Hematocrit (Bld) [Volume fraction] 26.5 % Low 40-54 [facility] Comment on above: Performed By: #### L 100.0100, L501.5200, L500.4050 ####[facility] [address] [place], [address] Hemoglobin (Bld) [Mass/Vol] 7.8 g/dL Low 13.0-16.5 [facility] Comment on above: Performed By: #### L 100.0100, L501.5200, L500.4050 ####[facility] [address] [place], [address] IG% 0.200 Normal 0.0-0.9 [facility] Comment on above: Result Comment: IG% - Immature Granulocytes (promyelocytes, myelocytes andmetamyelocytes) > 1% indicates that a LEFT SHIFT is Present. Performed By: #### L 100.0100, L501.5200, L500.4050 ####[facility] [address] [place], [address] Lymphocytes/100 WBC (Bld) 9.5 % Low 19-41 [facility] Comment on above: Performed By: #### L 100.0100, L501.5200, L500.4050 ####[facility] [address] [place], [address] MCH (RBC) [Entitic mass] 28.6 pg Normal 27.0-32.0 [facility] Comment on above: Performed By: #### L 100.0100, L501.5200, L500.4050 ####[facility] [address] [place], [address] MCHC (RBC) [Mass/Vol] 29.4 g/dL Low 32-36 [facility] Comment on above: Performed By: #### L 100.0100, L501.5200, L500.4050 ####[facility] [address] [place], [address] MCV (RBC) [Entitic vol] 97.1 fL High 80-94 [facility] Comment on above: Performed By: #### L 100.0100, L501.5200, L500.4050 ####[facility] [address] [place], [address] Monocytes/100 WBC (Bld) 10.0 % Normal 0-10 [facility] Comment on above: Performed By: #### L 100.0100, L501.5200, L500.4050 ####[facility] [address] [place], [address] Neutrophils/100 WBC (Bld) 74.4 % High 47-70 [facility] Comment on above: Performed By: #### L 100.0100, L501.5200, L500.4050 ####[facility] [address] [place], [address] Nucleated RBC (Bld) [#/Vol] 0 10*3/uL Normal 0-5 [facility] Comment on above: Performed By: #### L 100.0100, L501.5200, L500.4050 ####[facility] [address] [place], [address] Platelet mean volume (Bld) [Entitic vol] 11.4 fL Normal 6.2-12.0 [facility] Comment on above: Performed By: #### L 100.0100, L501.5200, L500.4050 ####[facility] [address] [place], [address] Platelets (Bld) [#/Vol] 90 10*3/uL Low 150-450 [facility] Comment on above: Performed By: #### L 100.0100, L501.5200, L500.4050 ####[facility] [address] [place], [address] RBC (Bld) [#/Vol] 2.73 10*6/uL Low 4.6-6.2 [facility] Comment on above: Performed By: #### L 100.0100, L501.5200, L500.4050 ####[facility] [address] [place], [address] RDW SD 63.7 fl High 35.1-43.9 [facility] Comment on above: Performed By: #### L 100.0100, L501.5200, L500.4050 ####[facility] [address] [place], [address] WBC (Bld) [#/Vol] 4.4 10*3/uL Normal 4.4-11.0 [facility] Comment on above: Performed By: #### L 100.0100, L501.5200, L500.4050 ####[facility] [address] [place], [address] Chest 1 View (Portable)on Chest 1 View (Portable) Normal [facility] Comprehensive Metabolic Prof ilon 05-23-2024 Albumin [Mass/Vol] 2.1 g/dL Low 3.2-5.0 [facility] Comment on above: Performed By: #### L 100.0100, L501.5200, L500.4050 ####[facility] [address] [place], [address] Albumin/Globulin [Mass ratio] 0.6 {ratio} Low 0.9-2.4 [facility] Comment on above: Performed By: #### L 100.0100, L501.5200, L500.4050 ####[facility] [address] [place], [address] ALK P 86 U/L Normal 45-117 [facility] Comment on above: Performed By: #### L 100.0100, L501.5200, L500.4050 ####[facility] [address] [place], [address] ALT [Catalytic activity/Vol] 21 U/L Normal 16-61 [facility] Comment on above: Performed By: #### L 100.0100, L501.5200, L500.4050 ####[facility] [address] [place], [address] AST [Catalytic activity/Vol] 90 U/L High 15-37 [facility] Comment on above: Performed By: #### L 100.0100, L501.5200, L500.4050 ####[facility] [address] [place], [address] Bilirubin [Mass/Vol] 0.90 mg/dL Normal 0.20-1.00 [facility] Comment on above: Result Comment: For patients on eltrombopag therapy, use of Dimension [place] TBIL is not recommended. Performed By: #### L 100.0100, L501.5200, L500.4050 ####[facility] [address] [place], [address] BUN/CRE 24.4 RATIO High 10-20 [facility] Comment on above: Performed By: #### L 100.0100, L501.5200, L500.4050 ####[facility] [address] [place], [address] CA,Total 7.8 mg/dL Low 8.5-10.1 [facility] Comment on above: Performed By: #### L 100.0100, L501.5200, L500.4050 ####[facility] [address] [place], [address] Chloride [Moles/Vol] 104 mmol/L Normal 98-107 [facility] Comment on above: Performed By: #### L 100.0100, L501.5200, L500.4050 ####[facility] [address] [place], [address] CO2 [Moles/Vol] 36.0 mmol/L High 21.0-32.0 [facility] Comment on above: Performed By: #### L 100.0100, L501.5200, L500.4050 ####[facility] [address] [place], [address] Creatinine [Mass/Vol] 1.80 mg/dL High 0.70-1.30 [facility] Comment on above: Result Comment: The validity of the calculated GFR GFRAA in patients over70 years has not been determined. Clinical correlation isessential. Performed By: #### L 100.0100, L501.5200, L500.4050 ####[facility] [address] [place], [address] ECRCL 69.71 ml/min Normal [facility] Comment on above: Performed By: #### L 100.0100, L501.5200, L500.4050 ####[facility] [address] [place], [address] EST GFR - AA 49 mL/min Low >60 [facility] Comment on above: Result Comment: Afri can [place] GFR Calc Performed By: #### L 100.0100, L501.5200, L500.4050 ####[facility] [address] [place], [address] GAP 5 Normal 5-15 [facility] Comment on above: Performed By: #### L 100.0100, L501.5200, L500.4050 ####[facility] [address] [place], [address] GFR/1.73 sq M.predicted among non-blacks MDRD (S/P/Bld) [Vol rate/Area] 40 mL/min/{1.73_m2} Low >60 [facility] Comment on above: Result Comment: Non- GFR Calc Performed By: #### L 100.0100, L501.5200, L500.4050 ####[facility] [address] [place], [address] Globulin (S) [Mass/Vol] 3.7 g/dL Normal 2.2-4.2 [facility] Comment on above: Performed By: #### L 100.0100, L501.5200, L500.4050 ####[facility] [address] [place], [address] Glucose [Mass/Vol] 152 mg/dL High 74-106 [facility] Comment on above: Result Comment: Fast ing Glucose result greater than or equal to 126 mg/dLsuggests DIABETES MELLITUS per A.D.A. criteria. Performed By: #### L 100.0100, L501.5200, L500.4050 ####[facility] [address] [place], [address] Potassium [Moles/Vol] 3.7 mmol/L Normal 3.5-5.1 [facility] Comment on above: Performed By: #### L 100.0100, L501.5200, L500.4050 ####[facility] [address] [place], [address] Sodium [Moles/Vol] 144 mmol/L Normal 136-145 [facility] Comment on above: Performed By: #### L 100.0100, L501.5200, L500.4050 ####[facility] [address] [place], [address] T PROT 5.8 g/dL Low 6.4-8.2 [facility] Comment on above: Performed By: #### L 100.0100, L501.5200, L500.4050 ####[facility] [address] [place], [address] Urea nitrogen [Mass/Vol] 44 mg/dL High 7-18 [facility] Comment on above: Performed By: #### L 100.0100, L501.5200, L500.4050 ####[facility] [address] [place], [address] Magnesiumon 05-23-2024 Magnesium [Mass/Vol] 2.1 mg/dL Normal 1.6-2.6 [facility] Comment on above: Performed By: #### L 100.0100, L501.5200, L500.4050 ####[facility] [address] [place], [address] Phosphoruson 05-23-2024 Phosphate [Mass/Vol] 4.3 mg/dL Normal 2.5-4.9 [facility] Comment on above: Performed By: #### L 501.2300 ####[facility] [address] [place], [address] Bedside Glucoseon 4 FINGERSTICK GLU 152 mg/dL High 74-106 [facility] Comment on above: Result Comment: HUMBERTO GEMENT OF PATIENT CARE PER NURSING PROTOCOL Performed By: #### L 501.080 ####[facility] [address] [place], [address] FINGERSTICK GLU 139 mg/dL High 74-106 [facility] Comment on above: Result Comment: HUMBERTO GEMENT OF PATIENT CARE PER NURSING PROTOCOL Performed By: #### L 501.080 ####[facility] [address] [place], [address] FINGERSTICK GLU 138 mg/dL High 74-106 [facility] Comment on above: Result Comment: HUMBERTO GEMENT OF PATIENT CARE PER NURSING PROTOCOL Performed By: #### L 501.080 ####[facility] [address] [place], [address] FINGERSTICK GLU 131 mg/dL High 74-106 [facility] Comment on above: Result Comment: HUMBERTO LOPEZ OF PATIENT CARE PER NURSING PROTOCOL Performed By: #### L 501.080 ####[facility] [address] [place], [address] Blood Gases by [facility] 024 CAROLYN TEST Positive Normal [facility] Comment on above: Performed By: #### L 9000.0800 ####[facility] [address] [place], [address] Base excess Calc (Bld) [Moles/Vol] 17 mmol/L High -2 to +2 [facility] Comment on above: Performed By: #### L 9000.0800 ####[facility] [address] [place], [address] Blood Gas Type ART Normal [facility] Comment on above: Performed By: #### L 9000.0800 ####[facility] [address] [place], [address] CO2 [Moles/Vol] 41 mmol/L Normal [facility] Comment on above: Performed By: #### L 9000.0800 ####[facility] [address] [place], [address] FI02 40.0 Normal [facility] Comment on above: Performed By: #### L 9000.0800 ####[facility] [address] [place], [address] HCO3 (Bld) [Moles/Vol] 39.8 mmol/L High 22-26 [facility] Comment on above: Performed By: #### L 9000.0800 ####[facility] [address] [place], [address] Mode AC Normal [facility] Comment on above: Performed By: #### L 9000.0800 ####[facility] [address] [place], [address] O2 Delivery Dev Adult Vent Normal [facility] Comment on above: Performed By: #### L 9000.0800 ####[facility] [address] [place], [address] pCO2 52.0 mmHg High 35-45 [facility] Comment on above: Performed By: #### L 9000.0800 ####[facility] [address] [place], [address] PEEP 5 Normal [facility] Comment on above: Performed By: #### L 9000.0800 ####[facility] [address] [place], [address] pH (Bld) 7.49 [pH] High 7.35-7.45 [facility] Comment on above: Performed By: #### L 9000.0800 ####[facility] [address] [place], [address] PO2 63 mmHG Low 75-100 [facility] Comment on above: Performed By: #### L 9000.0800 ####[facility] [address] [place], [address] RR 16 Normal [facility] Comment on above: Performed By: #### L 9000.0800 ####[facility] [address] [place], [address] SITE L Radial Normal [facility] Comment on above: Performed By: #### L 9000.0800 ####[facility] [address] [place], [address] SO2 93 Low 95-99 [facility] Comment on above: Performed By: #### L 9000.0800 ####[facility] [address] [place], [address] Vt 450.0 mL Normal [facility] Comment on above: Performed By: #### L 9000.0800 ####[facility] [address] [place], [address] CBC W/Diff, Automatedon 11 Absolute Lymph 0.57 X10 3/uL Low 0.83-4.51 [facility] Comment on above: Performed By: #### L 501.5200, L500.4050, L501.2300, L100.0100 ####[facility] [address] [place], [address] Absolute Neut 3.3 X10 3/uL Normal 2.0-7.7 [facility] Comment on above: Performed By: #### L 501.5200, L500.4050, L501.2300, L100.0100 ####[facility] [address] [place], [address] Basophils/100 WBC (Bld) 0.2 % Normal 0-1 [facility] Comment on above: Performed By: #### L 501.5200, L500.4050, L501.2300, L100.0100 ####[facility] [address] [place], [address] Eosinophils/100 WBC (Bld) 5.0 % Normal 0-5 [facility] Comment on above: Performed By: #### L 501.5200, L500.4050, L501.2300, L100.0100 ####[facility] [address] [place], [address] Erythrocyte distribution width (RBC) [Ratio] 18.6 % High 11.6-14.6 [facility] Comment on above: Performed By: #### L 501.5200, L500.4050, L501.2300, L100.0100 ####[facility] [address] [place], [address] Hematocrit (Bld) [Volume fraction] 25.0 % Low 40-54 [facility] Comment on above: Performed By: #### L 501.5200, L500.4050, L501.2300, L100.0100 ####[facility] [address] [place], [address] Hemoglobin (Bld) [Mass/Vol] 7.5 g/dL Low 13.0-16.5 [facility] Comment on above: Performed By: #### L 501.5200, L500.4050, L501.2300, L100.0100 ####[facility] [address] [place], [address] IG% 0.400 Normal 0.0-0.9 [facility] Comment on above: Result Comment: IG% - Immature Granulocytes (promyelocytes, myelocytes andmetamyelocytes) > 1% indicates that a LEFT SHIFT is Present. Performed By: #### L 501.5200, L500.4050, L501.2300, L100.0100 ####[facility] [address] [place], [address] Lymphocytes/100 WBC (Bld) 12.5 % Low 19-41 [facility] Comment on above: Performed By: #### L 501.5200, L500.4050, L501.2300, L100.0100 ####[facility] [address] [place], [address] MCH (RBC) [Entitic mass] 28.8 pg Normal 27.0-32.0 [facility] Comment on above: Performed By: #### L 501.5200, L500.4050, L501.2300, L100.0100 ####[facility] [address] [place], [address] MCHC (RBC) [Mass/Vol] 30.0 g/dL Low 32-36 [facility] Comment on above: Performed By: #### L 501.5200, L500.4050, L501.2300, L100.0100 ####[facility] [address] [place], [address] MCV (RBC) [Entitic vol] 96.2 fL High 80-94 [facility] Comment on above: Performed By: #### L 501.5200, L500.4050, L501.2300, L100.0100 ####[facility] [address] [place], [address] Monocytes/100 WBC (Bld) 10.3 % High 0-10 [facility] Comment on above: Performed By: #### L 501.5200, L500.4050, L501.2300, L100.0100 ####[facility] [address] [place], [address] Neutrophils/100 WBC (Bld) 71.6 % High 47-70 [facility] Comment on above: Performed By: #### L 501.5200, L500.4050, L501.2300, L100.0100 ####[facility] [address] [place], [address] Nucleated RBC (Bld) [#/Vol] 0 10*3/uL Normal 0-5 [facility] Comment on above: Performed By: #### L 501.5200, L500.4050, L501.2300, L100.0100 ####[facility] [address] [place], [address] Platelet mean volume (Bld) [Entitic vol] 10.9 fL Normal 6.2-12.0 [facility] Comment on above: Performed By: #### L 501.5200, L500.4050, L501.2300, L100.0100 ####[facility] [address] [place], [address] Platelets (Bld) [#/Vol] 84 10*3/uL Low 150-450 [facility] Comment on above: Performed By: #### L 501.5200, L500.4050, L501.2300, L100.0100 ####[facility] [address] [place], [address] RBC (Bld) [#/Vol] 2.60 10*6/uL Low 4.6-6.2 [facility] Comment on above: Performed By: #### L 501.5200, L500.4050, L501.2300, L100.0100 ####[facility] [address] [place], [address] RDW SD 64.0 fl High 35.1-43.9 [facility] Comment on above: Performed By: #### L 501.5200, L500.4050, L501.2300, L100.0100 ####[facility] [address] [place], [address] WBC (Bld) [#/Vol] 4.6 10*3/uL Normal 4.4-11.0 [facility] Comment on above: Performed By: #### L 501.5200, L500.4050, L501.2300, L100.0100 ####[facility] [address] [place], [address] Comprehensive Metabolic Prof [facility] 05-22-2024 Albumin [Mass/Vol] 2.2 g/dL Low 3.2-5.0 [facility] Comment on above: Performed By: #### L 501.5200, L500.4050, L501.2300, L100.0100 ####[facility] [address] [place], [address] Albumin/Globulin [Mass ratio] 0.6 {ratio} Low 0.9-2.4 [facility] Comment on above: Performed By: #### L 501.5200, L500.4050, L501.2300, L100.0100 ####[facility] [address] [place], [address] ALK P 73 U/L Normal 45-117 [facility] Comment on above: Performed By: #### L 501.5200, L500.4050, L501.2300, L100.0100 ####[facility] [address] [place], [address] ALT [Catalytic activity/Vol] 11 U/L Low 16-61 [facility] Comment on above: Performed By: #### L 501.5200, L500.4050, L501.2300, L100.0100 ####[facility] [address] [place], [address] AST [Catalytic activity/Vol] 31 U/L Normal 15-37 [facility] Comment on above: Performed By: #### L 501.5200, L500.4050, L501.2300, L100.0100 ####[facility] [address] [place], [address] Bilirubin [Mass/Vol] 1.00 mg/dL Normal 0.20-1.00 [facility] Comment on above: Result Comment: For patients on eltrombopag therapy, use of Dimension [place] TBIL is not recommended. Performed By: #### L 501.5200, L500.4050, L501.2300, L100.0100 ####[facility] [address] [place], [address] BUN/CRE 23.0 RATIO High 10-20 [facility] Comment on above: Performed By: #### L 501.5200, L500.4050, L501.2300, L100.0100 ####[facility] [address] [place], [address] CA,Total 8.2 mg/dL Low 8.5-10.1 [facility] Comment on above: Performed By: #### L 501.5200, L500.4050, L501.2300, L100.0100 ####[facility] [address] [place], [address] Chloride [Moles/Vol] 104 mmol/L Normal 98-107 [facility] Comment on above: Performed By: #### L 501.5200, L500.4050, L501.2300, L100.0100 ####[facility] [address] [place], [address] CO2 [Moles/Vol] 38.0 mmol/L High 21.0-32.0 [facility] Comment on above: Performed By: #### L 501.5200, L500.4050, L501.2300, L100.0100 ####[facility] [address] [place], [address] Creatinine [Mass/Vol] 1.74 mg/dL High 0.70-1.30 [facility] Comment on above: Result Comment: The validity of the calculated GFR GFRAA in patients over70 years has not been determined. Clinical correlation isessential. Performed By: #### L 501.5200, L500.4050, L501.2300, L100.0100 ####[facility] [address] [place], [address] ECRCL 72.11 ml/min Normal [facility] Comment on above: Performed By: #### L 501.5200, L500.4050, L501.2300, L100.0100 ####[facility] [address] [place], [address] EST GFR - AA 51 mL/min Low >60 [facility] Comment on above: Result Comment: Afri can [place] GFR Calc Performed By: #### L 501.5200, L500.4050, L501.2300, L100.0100 ####[facility] [address] [place], [address] GAP 3 Low 5-15 [facility] Comment on above: Performed By: #### L 501.5200, L500.4050, L501.2300, L100.0100 ####[facility] [address] [place], [address] GFR/1.73 sq M.predicted among non-blacks MDRD (S/P/Bld) [Vol rate/Area] 42 mL/min/{1.73_m2} Low >60 [facility] Comment on above: Result Comment: Non- GFR Calc Performed By: #### L 501.5200, L500.4050, L501.2300, L100.0100 ####[facility] [address] [place], [address] Globulin (S) [Mass/Vol] 3.4 g/dL Normal 2.2-4.2 [facility] Comment on above: Performed By: #### L 501.5200, L500.4050, L501.2300, L100.0100 ####[facility] [address] [place], [address] Glucose [Mass/Vol] 151 mg/dL High 74-106 [facility] Comment on above: Result Comment: Fast ing Glucose result greater than or equal to 126 mg/dLsuggests DIABETES MELLITUS per A.D.A. criteria. Performed By: #### L 501.5200, L500.4050, L501.2300, L100.0100 ####[facility] [address] [place], [address] Potassium [Moles/Vol] 3.6 mmol/L Normal 3.5-5.1 [facility] Comment on above: Performed By: #### L 501.5200, L500.4050, L501.2300, L100.0100 ####[facility] [address] [place], [address] Sodium [Moles/Vol] 145 mmol/L Normal 136-145 [facility] Comment on above: Performed By: #### L 501.5200, L500.4050, L501.2300, L100.0100 ####[facility] [address] [place], [address] T PROT 5.6 g/dL Low 6.4-8.2 [facility] Comment on above: Performed By: #### L 501.5200, L500.4050, L501.2300, L100.0100 ####[facility] [address] [place], [address] Urea nitrogen [Mass/Vol] 40 mg/dL High 7-18 [facility] Comment on above: Performed By: #### L 501.5200, L500.4050, L501.2300, L100.0100 ####[facility] [address] [place], [address] Magnesiumon 4 Magnesium [Mass/Vol] 2.2 mg/dL Normal 1.6-2.6 [facility] Comment on above: Performed By: #### L 501.5200, L500.4050, L501.2300, L100.0100 ####[facility] [address] [place], [address] Phosphoruson 05-22-2024 Phosphate [Mass/Vol] 4.2 mg/dL Normal 2.5-4.9 [facility] Comment on above: Performed By: #### L 501.5200, L500.4050, L501.2300, L100.0100 ####[facility] [address] [place], [address] Basic Metabolic Profile (BMP )on 05-21-2024 BUN/CRE 23.5 RATIO High 10-20 [facility] Comment on above: Performed By: #### L 500.2500 ####[facility] [address] [place], [address] CA,Total 7.8 mg/dL Low 8.5-10.1 [facility] Comment on above: Performed By: #### L 500.2500 ####[facility] [address] [place], [address] Chloride [Moles/Vol] 106 mmol/L Normal 98-107 [facility] Comment on above: Performed By: #### L 500.2500 ####[facility] [address] [place], [address] CO2 [Moles/Vol] 37.0 mmol/L High 21.0-32.0 [facility] Comment on above: Performed By: #### L 500.2500 ####[facility] [address] [place], [address] Creatinine [Mass/Vol] 1.62 mg/dL High 0.70-1.30 [facility] Comment on above: Result Comment: The validity of the calculated GFR GFRAA in patients over70 years has not been determined. Clinical correlation isessential. Performed By: #### L 500.2500 ####[facility] [address] [place], [address] ECRCL 77.43 ml/min Normal [facility] Comment on above: Performed By: #### L 500.2500 ####[facility] [address] [place], [address] EST GFR - AA 55 mL/min Low >60 [facility] Comment on above: Result Comment: Afri can [place] GFR Calc Performed By: #### L 500.2500 ####[facility] [address] [place], [address] GAP 1 Low 5-15 [facility] Comment on above: Performed By: #### L 500.2500 ####[facility] [address] [place], [address] GFR/1.73 sq M.predicted among non-blacks MDRD (S/P/Bld) [Vol rate/Area] 46 mL/min/{1.73_m2} Low >60 [facility] Comment on above: Result Comment: Non- GFR Calc Performed By: #### L 500.2500 ####[facility] [address] [place], [address] Glucose [Mass/Vol] 150 mg/dL High 74-106 [facility] Comment on above: Result Comment: Fast ing Glucose result greater than or equal to 126 mg/dLsuggests DIABETES MELLITUS per A.D.A. criteria. Performed By: #### L 500.2500 ####[facility] [address] [place], [address] Potassium [Moles/Vol] 3.6 mmol/L Normal 3.5-5.1 [facility] Comment on above: Performed By: #### L 500.2500 ####[facility] [address] [place], [address] Sodium [Moles/Vol] 145 mmol/L Normal 136-145 [facility] Comment on above: Performed By: #### L 500.2500 ####[facility] [address] [place], [address] Urea nitrogen [Mass/Vol] 38 mg/dL High 7-18 [facility] Comment on above: Performed By: #### L 500.2500 ####[facility] [address] [place], [address] Bedside Glucoseon 05-21-2024 FINGERSTICK GLU 138 mg/dL High 74-106 [facility] Comment on above: Result Comment: HUMBERTO GEMENT OF PATIENT CARE PER NURSING PROTOCOL Performed By: #### L 501.080 ####[facility] [address] [place], [address] FINGERSTICK GLU 134 mg/dL High 74-106 [facility] Comment on above: Result Comment: HUMBERTO GEMENT OF PATIENT CARE PER NURSING PROTOCOL Performed By: #### L 501.080 ####[facility] [address] [place], [address] FINGERSTICK GLU 122 mg/dL High 74-106 [facility] Comment on above: Result Comment: HUMBERTO GEMENT OF PATIENT CARE PER NURSING PROTOCOL Performed By: #### L 501.080 ####[facility] [address] [place], [address] FINGERSTICK GLU 142 mg/dL High 74-106 [facility] Comment on above: Result Comment: HUMBERTO GEMENT OF PATIENT CARE PER NURSING PROTOCOL Performed By: #### L 501.080 ####[facility] [address] [place], [address] CBC W/Diff, Automatedon 11-1 0-2024 Absolute Lymph 0.45 X10 3/uL Low 0.83-4.51 [facility] Comment on above: Performed By: #### L 500.4050, L501.2300, L501.5200, L100.0100 ####[facility] [address] [place], [address] Absolute Neut 2.9 X10 3/uL Normal 2.0-7.7 [facility] Comment on above: Performed By: #### L 500.4050, L501.2300, L501.5200, L100.0100 ####[facility] [address] [place], [address] Basophils/100 WBC (Bld) 0.3 % Normal 0-1 [facility] Comment on above: Performed By: #### L 500.4050, L501.2300, L501.5200, L100.0100 ####[facility] [address] [place], [address] Eosinophils/100 WBC (Bld) 4.1 % Normal 0-5 [facility] Comment on above: Performed By: #### L 500.4050, L501.2300, L501.5200, L100.0100 ####[facility] [address] [place], [address] Erythrocyte distribution width (RBC) [Ratio] 18.7 % High 11.6-14.6 [facility] Comment on above: Performed By: #### L 500.4050, L501.2300, L501.5200, L100.0100 ####[facility] [address] [place], [address] Hematocrit (Bld) [Volume fraction] 24.5 % Low 40-54 [facility] Comment on above: Performed By: #### L 500.4050, L501.2300, L501.5200, L100.0100 ####[facility] [address] [place], [address] Hemoglobin (Bld) [Mass/Vol] 7.3 g/dL Low 13.0-16.5 [facility] Comment on above: Performed By: #### L 500.4050, L501.2300, L501.5200, L100.0100 ####[facility] [address] [place], [address] IG% 0.800 Normal 0.0-0.9 [facility] Comment on above: Result Comment: IG% - Immature Granulocytes (promyelocytes, myelocytes andmetamyelocytes) > 1% indicates that a LEFT SHIFT is Present. Performed By: #### L 500.4050, L501.2300, L501.5200, L100.0100 ####[facility] [address] [place], [address] Lymphocytes/100 WBC (Bld) 11.5 % Low 19-41 [facility] Comment on above: Performed By: #### L 500.4050, L501.2300, L501.5200, L100.0100 ####[facility] [address] [place], [address] MCH (RBC) [Entitic mass] 28.5 pg Normal 27.0-32.0 [facility] Comment on above: Performed By: #### L 500.4050, L501.2300, L501.5200, L100.0100 ####[facility] [address] [place], [address] MCHC (RBC) [Mass/Vol] 29.8 g/dL Low 32-36 [facility] Comment on above: Performed By: #### L 500.4050, L501.2300, L501.5200, L100.0100 ####[facility] [address] [place], [address] MCV (RBC) [Entitic vol] 95.7 fL High 80-94 [facility] Comment on above: Performed By: #### L 500.4050, L501.2300, L501.5200, L100.0100 ####[facility] [address] [place], [address] Monocytes/100 WBC (Bld) 9.2 % Normal 0-10 [facility] Comment on above: Performed By: #### L 500.4050, L501.2300, L501.5200, L100.0100 ####[facility] [address] [place], [address] Neutrophils/100 WBC (Bld) 74.1 % High 47-70 [facility] Comment on above: Performed By: #### L 500.4050, L501.2300, L501.5200, L100.0100 ####[facility] [address] [place], [address] Nucleated RBC (Bld) [#/Vol] 0 10*3/uL Normal 0-5 [facility] Comment on above: Performed By: #### L 500.4050, L501.2300, L501.5200, L100.0100 ####[facility] [address] [place], [address] Platelet mean volume (Bld) [Entitic vol] 10.4 fL Normal 6.2-12.0 [facility] Comment on above: Performed By: #### L 500.4050, L501.2300, L501.5200, L100.0100 ####[facility] [id number] [place], [address] Platelets (Bld) [#/Vol] 88 10*3/uL Low 150-450 [facility] Comment on above: Performed By: #### L 500.4050, L501.2300, L501.5200, L100.0100 ####[facility] [address] [place], [address] RBC (Bld) [#/Vol] 2.56 10*6/uL Low 4.6-6.2 [facility] Comment on above: Performed By: #### L 500.4050, L501.2300, L501.5200, L100.0100 ####[facility] [address] [place], [address] RDW SD 63.5 fl High 35.1-43.9 [facility] Comment on above: Performed By: #### L 500.4050, L501.2300, L501.5200, L100.0100 ####[facility] [address] [place], [address] WBC (Bld) [#/Vol] 3.9 10*3/uL Low 4.4-11.0 [facility] Comment on above: Performed By: #### L 500.4050, L501.2300, L501.5200, L100.0100 ####[facility] [address] [place], [address] Comprehensive Metabolic Prof ilon 05-21-2024 Albumin [Mass/Vol] 2.2 g/dL Low 3.2-5.0 [facility] Comment on above: Performed By: #### L 500.4050, L501.2300, L501.5200, L100.0100 ####[facility] [address] [place], [address] Albumin/Globulin [Mass ratio] 0.7 {ratio} Low 0.9-2.4 [facility] Comment on above: Performed By: #### L 500.4050, L501.2300, L501.5200, L100.0100 ####[facility] [address] [place], [address] ALK P 67 U/L Normal 45-117 [facility] Comment on above: Performed By: #### L 500.4050, L501.2300, L501.5200, L100.0100 ####[facility] [address] [place], [address] ALT [Catalytic activity/Vol] 10 U/L Low 16-61 [facility] Comment on above: Performed By: #### L 500.4050, L501.2300, L501.5200, L100.0100 ####[facility] [address] [place], [address] AST [Catalytic activity/Vol] 14 U/L Low 15-37 [facility] Comment on above: Performed By: #### L 500.4050, L501.2300, L501.5200, L100.0100 ####[facility] [address] [place], [address] Bilirubin [Mass/Vol] 1.10 mg/dL High 0.20-1.00 [facility] Comment on above: Result Comment: For patients on eltrombopag therapy, use of Dimension [place] TBIL is not recommended. Performed By: #### L 500.4050, L501.2300, L501.5200, L100.0100 ####[facility] [address] [place], [address] BUN/CRE 23.3 RATIO High 10-20 [facility] Comment on above: Performed By: #### L 500.4050, L501.2300, L501.5200, L100.0100 ####[facility] [address] [place], [address] CA,Total 8.0 mg/dL Low 8.5-10.1 [facility] Comment on above: Performed By: #### L 500.4050, L501.2300, L501.5200, L100.0100 ####[facility] [address] [place], [address] Chloride [Moles/Vol] 106 mmol/L Normal 98-107 [facility] Comment on above: Performed By: #### L 500.4050, L501.2300, L501.5200, L100.0100 ####[facility] [address] [place], [address] CO2 [Moles/Vol] 37.0 mmol/L High 21.0-32.0 [facility] Comment on above: Performed By: #### L 500.4050, L501.2300, L501.5200, L100.0100 ####[facility] [address] [place], [address] Creatinine [Mass/Vol] 1.63 mg/dL High 0.70-1.30 [facility] Comment on above: Result Comment: The validity of the calculated GFR GFRAA in patients over70 years has not been determined. Clinical correlation isessential. Performed By: #### L 500.4050, L501.2300, L501.5200, L100.0100 ####[facility] [address] [place], [address] ECRCL 76.98 ml/min Normal [facility] Comment on above: Performed By: #### L 500.4050, L501.2300, L501.5200, L100.0100 ####[facility] [address] [place], [address] EST GFR - AA 55 mL/min Low >60 [facility] Comment on above: Result Comment: Afri can Citizen [place] GFR Calc Performed By: #### L 500.4050, L501.2300, L501.5200, L100.0100 ####[facility] [address] [place], [address] GAP 3 Low 5-15 [facility] Comment on above: Performed By: #### L 500.4050, L501.2300, L501.5200, L100.0100 ####[facility] [address] [place], [address] GFR/1.73 sq M.predicted among non-blacks MDRD (S/P/Bld) [Vol rate/Area] 45 mL/min/{1.73_m2} Low >60 [facility] Comment on above: Result Comment: Non- GFR Calc Performed By: #### L 500.4050, L501.2300, L501.5200, L100.0100 ####[facility] [address] [place], [address] Globulin (S) [Mass/Vol] 3.2 g/dL Normal 2.2-4.2 [facility] Comment on above: Performed By: #### L 500.4050, L501.2300, L501.5200, L100.0100 ####[facility] [address] [place], [address] Glucose [Mass/Vol] 140 mg/dL High 74-106 [facility] Comment on above: Result Comment: Fast ing Glucose result greater than or equal to 126 mg/dLsuggests DIABETES MELLITUS per A.D.A. criteria. Performed By: #### L 500.4050, L501.2300, L501.5200, L100.0100 ####[facility] [address] [place], [address] Potassium [Moles/Vol] 3.4 mmol/L Low 3.5-5.1 [facility] Comment on above: Performed By: #### L 500.4050, L501.2300, L501.5200, L100.0100 ####[facility] [address] [place], [address] Sodium [Moles/Vol] 146 mmol/L High 136-145 [facility] Comment on above: Performed By: #### L 500.4050, L501.2300, L501.5200, L100.0100 ####[facility] [address] [place], [address] T PROT 5.4 g/dL Low 6.4-8.2 [facility] Comment on above: Performed By: #### L 500.4050, L501.2300, L501.5200, L100.0100 ####[facility] [address] [place], [address] Urea nitrogen [Mass/Vol] 38 mg/dL High 7-18 [facility] Comment on above: Performed By: #### L 500.4050, L501.2300, L501.5200, L100.0100 ####[facility] [address] [place], [address] Magnesiumon 05-21-2024 Magnesium [Mass/Vol] 1.9 mg/dL Normal 1.6-2.6 [facility] Comment on above: Performed By: #### L 500.4050, L501.2300, L501.5200, L100.0100 ####[facility] [address] [place], [address] Phosphoruson 05-21-2024 Phosphate [Mass/Vol] 4.2 mg/dL Normal 2.5-4.9 [facility] Comment on above: Performed By: #### L 500.4050, L501.2300, L501.5200, L100.0100 ####[facility] [address] [place], [address] Respiratory Cultureon 2023 RESPC Mixed normal respiratory rl. No Haemophilus, Streptococcus pneumoniae, beta-hemolytic Streptococcus or Staphylococcus aureus isolated. Normal [facility] Comment on above: Performed By: #### M 100.2400, M100.2000 ####[facility] [address] [place], [address] RESPC Mixed normal respiratory rl. No Haemophilus, Streptococcus pneumoniae, beta-hemolytic Streptococcus or Staphylococcus aureus isolated. Normal [facility] Comment on above: Performed By: #### M 100.2000, M100.2400 ####[facility] [address] [place], [address] Basic Metabolic Profile (BMP )on 05-20-2024 BUN/CRE 24.1 RATIO High 10-20 [facility] Comment on above: Performed By: #### L 500.2500 ####[facility] [address] [place], [address] CA,Total 7.9 mg/dL Low 8.5-10.1 [facility] Comment on above: Performed By: #### L 500.2500 ####[facility] [address] [place], [address] Chloride [Moles/Vol] 107 mmol/L Normal 98-107 [facility] Comment on above: Performed By: #### L 500.2500 ####[facility] [address] [place], [address] CO2 [Moles/Vol] 36.0 mmol/L High 21.0-32.0 [facility] Comment on above: Performed By: #### L 500.2500 ####[facility] [address] [place], [address] Creatinine [Mass/Vol] 1.62 mg/dL High 0.70-1.30 [facility] Comment on above: Result Comment: The validity of the calculated GFR GFRAA in patients over70 years has not been determined. Clinical correlation isessential. Performed By: #### L 500.2500 ####[facility] [address] [place], [address] ECRCL 77.43 ml/min Normal [facility] Comment on above: Performed By: #### L 500.2500 ####[facility] [address] [place], [address] EST GFR - AA 55 mL/min Low >60 [facility] Comment on above: Result Comment: Afri can [place] GFR Calc Performed By: #### L 500.2500 ####[facility] [address] [place], [address] GAP 4 Low 5-15 [facility] Comment on above: Performed By: #### L 500.2500 ####[facility] [address] [place], [address] GFR/1.73 sq M.predicted among non-blacks MDRD (S/P/Bld) [Vol rate/Area] 46 mL/min/{1.73_m2} Low >60 [facility] Comment on above: Result Comment: Non- GFR Calc Performed By: #### L 500.2500 ####[facility] [address] [place], [address] Glucose [Mass/Vol] 141 mg/dL High 74-106 [facility] Comment on above: Result Comment: Fast ing Glucose result greater than or equal to 126 mg/dLsuggests DIABETES MELLITUS per A.D.A. criteria. Performed By: #### L 500.2500 ####[facility] [address] [place], [address] Potassium [Moles/Vol] 3.4 mmol/L Low 3.5-5.1 [facility] Comment on above: Performed By: #### L 500.2500 ####[facility] [address] [place], [address] Sodium [Moles/Vol] 147 mmol/L High 136-145 [facility] Comment on above: Performed By: #### L 500.2500 ####[facility] [address] [place], [address] Urea nitrogen [Mass/Vol] 39 mg/dL High 7-18 [facility] Comment on above: Performed By: #### L 500.2500 ####[facility] [address] [place], [address] Bedside Glucoseon 05-20-2024 FINGERSTICK GLU 136 mg/dL High 74-106 [facility] Comment on above: Result Comment: HUMBERTO GEMENT OF PATIENT CARE PER NURSING PROTOCOL Performed By: #### L 501.080 ####[facility] [address] [place], [address] FINGERSTICK GLU 128 mg/dL High 74-106 [facility] Comment on above: Result Comment: HUMBERTO GEMENT OF PATIENT CARE PER NURSING PROTOCOL Performed By: #### L 501.080 ####[facility] [address] [place], [address] FINGERSTICK GLU 108 mg/dL High 74-106 [facility] Comment on above: Result Comment: HUMBERTO GEMENT OF PATIENT CARE PER NURSING PROTOCOL Performed By: #### L 501.080 ####[facility] [address] [place], [address] FINGERSTICK GLU 92 mg/dL Normal 74-106 [facility] Comment on above: Result Comment: HUMBERTO GEMENT OF PATIENT CARE PER NURSING PROTOCOL Performed By: #### L 501.080 ####[facility] [address] [place], [address] CBC W/Diff, Automatedon 11- Anisocytosis Ql (Bld) 2+ Normal [facility] Comment on above: Performed By: #### L 500.4050, L501.5200, L100.0100 ####[facility] [address] [place], [address] MACROCYTOSIS 1+ Normal [facility] Comment on above: Performed By: #### L 500.4050, L501.5200, L100.0100 ####[facility] [address] [place], [address] MICROCYTIC 1+ Normal [facility] Comment on above: Performed By: #### L 500.4050, L501.5200, L100.0100 ####[facility] [address] [place], [address] SMEAR COMMENT SCANNED Normal [facility] Comment on above: Performed By: #### L 500.4050, L501.5200, L100.0100 ####[facility] [address] [place], [address] Comprehensive Metabolic Prof ilon 05-20-2024 Albumin [Mass/Vol] 2.4 g/dL Low 3.2-5.0 [facility] Comment on above: Performed By: #### L 500.4050, L501.5200, L100.0100 ####[facility] [address] [place], [address] Albumin/Globulin [Mass ratio] 0.8 {ratio} Low 0.9-2.4 [facility] Comment on above: Performed By: #### L 500.4050, L501.5200, L100.0100 ####[facility] [address] [place], [address] ALK P 71 U/L Normal 45-117 [facility] Comment on above: Performed By: #### L 500.4050, L501.5200, L100.0100 ####[facility] [address] [place], [address] ALT [Catalytic activity/Vol] 10 U/L Low 16-61 [facility] Comment on above: Performed By: #### L 500.4050, L501.5200, L100.0100 ####[facility] [address] [place], [address] AST [Catalytic activity/Vol] 13 U/L Low 15-37 [facility] Comment on above: Performed By: #### L 500.4050, L501.5200, L100.0100 ####[facility] [address] [place], [address] Bilirubin [Mass/Vol] 1.20 mg/dL High 0.20-1.00 [facility] Comment on above: Result Comment: For patients on eltrombopag therapy, use of Dimension [place] TBIL is not recommended. Performed By: #### L 500.4050, L501.5200, L100.0100 ####[facility] [address] [place], [address] BUN/CRE 26.0 RATIO High 10-20 [facility] Comment on above: Performed By: #### L 500.4050, L501.5200, L100.0100 ####[facility] [address] [place], [address] CA,Total 8.0 mg/dL Low 8.5-10.1 [facility] Comment on above: Performed By: #### L 500.4050, L501.5200, L100.0100 ####[facility] [address] [place], [address] Chloride [Moles/Vol] 107 mmol/L Normal 98-107 [facility] Comment on above: Performed By: #### L 500.4050, L501.5200, L100.0100 ####[facility] [address] [place], [address] CO2 [Moles/Vol] 36.0 mmol/L High 21.0-32.0 [facility] Comment on above: Performed By: #### L 500.4050, L501.5200, L100.0100 ####[facility] [address] [place], [address] Creatinine [Mass/Vol] 1.46 mg/dL High 0.70-1.30 [facility] Comment on above: Result Comment: The validity of the calculated GFR GFRAA in patients over70 years has not been determined. Clinical correlation isessential. Performed By: #### L 500.4050, L501.5200, L100.0100 ####[facility] [address] [place], [address] ECRCL 86.63 ml/min Normal [facility] Comment on above: Performed By: #### L 500.4050, L501.5200, L100.0100 ####[facility] [address] [place], [address] EST GFR - AA 62 mL/min Normal >60 [facility] Comment on above: Result Comment: Afri can Citizen [place] GFR Calc Performed By: #### L 500.4050, L501.5200, L100.0100 ####[facility] [address] [place], [address] GAP 3 Low 5-15 [facility] Comment on above: Performed By: #### L 500.4050, L501.5200, L100.0100 ####[facility] [address] [place], [address] GFR/1.73 sq M.predicted among non-blacks MDRD (S/P/Bld) [Vol rate/Area] 51 mL/min/{1.73_m2} Low >60 [facility] Comment on above: Result Comment: Non- GFR Calc Performed By: #### L 500.4050, L501.5200, L100.0100 ####[facility] [address] [place], [address] Globulin (S) [Mass/Vol] 3.0 g/dL Normal 2.2-4.2 [facility] Comment on above: Performed By: #### L 500.4050, L501.5200, L100.0100 ####[facility] [address] [place], [address] Glucose [Mass/Vol] 124 mg/dL High 74-106 [facility] Comment on above: Result Comment: Fast ing Glucose result from 100 to 125 mg/dLsuggests IMPAIRED HOMEOSTASIS per A.D.A. criteria. Performed By: #### L 500.4050, L501.5200, L100.0100 ####[facility] [address] [place], [address] Potassium [Moles/Vol] 3.3 mmol/L Low 3.5-5.1 [facility] Comment on above: Performed By: #### L 500.4050, L501.5200, L100.0100 ####[facility] [address] [place], [address] Sodium [Moles/Vol] 146 mmol/L High 136-145 [facility] Comment on above: Performed By: #### L 500.4050, L501.5200, L100.0100 ####[facility] [address] [place], [address] T PROT 5.4 g/dL Low 6.4-8.2 [facility] Comment on above: Performed By: #### L 500.4050, L501.5200, L100.0100 ####[facility] [address] [place], [address] Urea nitrogen [Mass/Vol] 38 mg/dL High 7-18 [facility] Comment on above: Performed By: #### L 500.4050, L501.5200, L100.0100 ####[facility] [address] [place], [address] Consultation - Cardiologyon 05-20-2024 Consultation - Cardiology Normal [facility] Magnesiumon 05-20-2024 Magnesium [Mass/Vol] 2.0 mg/dL Normal 1.6-2.6 [facility] Comment on above: Performed By: #### L 500.4050, L501.5200, L100.0100 ####[facility] [address] [place], [address] Phosphoruson 05-20-2024 Phosphate [Mass/Vol] 4.2 mg/dL Normal 2.5-4.9 [facility] Comment on above: Performed By: #### L 501.2300 ####[facility] [address] [place], [address] Potassiumon 05-20-2024 Potassium [Moles/Vol] 3.4 mmol/L Low 3.5-5.1 [facility] Comment on above: Performed By: #### L 501.5600 ####[facility] [address] [place], [address] Potassium [Moles/Vol] 3.5 mmol/L Normal 3.5-5.1 [facility] Comment on above: Result Comment: Slig ht Hemolysis, Result may be falsely increased. Performed By: #### L 501.5600 ####[facility] [address] [place], [address] BNP,B-Type NATRIURETIC PEPTI Mundo 05-19-2024 Natriuretic peptide B (Bld) [Mass/Vol] 372.5 pg/mL High 0-100 [facility] Comment on above: Performed By: #### L 503.6620 ####[facility] [address] [place], [address] Bedside Glucoseon 05-19-2024 FINGERSTICK GLU 93 mg/dL Normal 74-106 [facility] Comment on above: Result Comment: HUMBERTO GEMENT OF PATIENT CARE PER NURSING PROTOCOL Performed By: #### L 501.080 ####[facility] [address] [place], [address] FINGERSTICK GLU 93 mg/dL Normal 74-106 [facility] Comment on above: Result Comment: HUMBERTO GEMENT OF PATIENT CARE PER NURSING PROTOCOL Performed By: #### L 501.080 ####[facility] [address] [place], [address] FINGERSTICK GLU 89 mg/dL Normal 74-106 [facility] Comment on above: Result Comment: HUMBERTO GEMENT OF PATIENT CARE PER NURSING PROTOCOL Performed By: #### L 501.080 ####[facility] [address] [place], [address] FINGERSTICK GLU 112 mg/dL High 74-106 [facility] Comment on above: Result Comment: HUMBERTO GEMENT OF PATIENT CARE PER NURSING PROTOCOL Performed By: #### L 501.080 ####[facility] [address] [place], [address] CBC W/Diff, Automatedon 11-0 OVALOCYTE 1+ Normal [facility] Comment on above: Performed By: #### L 501.5200, L500.4050, L100.0100 ####[facility] [address] [place], [address] Anisocytosis Ql (Bld) 1+ Normal [facility] Comment on above: Performed By: #### L 501.5200, L500.4050, L100.0100 ####[facility] [address] [place], [address] HYPOCHROMASIA 1+ Normal [facility] Comment on above: Performed By: #### L 501.5200, L500.4050, L100.0100 ####[facility] [address] [place], [address] PLT EST SLT DEC Normal ADEQ [facility] Comment on above: Performed By: #### L 501.5200, L500.4050, L100.0100 ####[facility] [address] [place], [address] POLYCHROMASIA 1+ Normal [facility] Comment on above: Performed By: #### L 501.5200, L500.4050, L100.0100 ####[facility] [address] [place], [address] SMEAR COMMENT SCANNED Normal [facility] Comment on above: Performed By: #### L 501.5200, L500.4050, L100.0100 ####[facility] [address] [place], [address] Chest 1 View (Portable)on Chest 1 View (Portable) Normal [facility] Chest 1 View (Portable) Normal [facility] Chest 1 View (Portable) Normal [facility] Chest 1 View (Portable) Normal [facility] Comprehensive Metabolic Prof tonya 05-19-2024 Albumin [Mass/Vol] 2.7 g/dL Low 3.2-5.0 [facility] Comment on above: Performed By: #### L 501.5200, L500.4050, L100.0100 ####[facility] [address] [place], [address] Albumin/Globulin [Mass ratio] 0.9 {ratio} Normal 0.9-2.4 [facility] Comment on above: Performed By: #### L 501.5200, L500.4050, L100.0100 ####[facility] [address] [place], [address] ALK P 75 U/L Normal 45-117 [facility] Comment on above: Performed By: #### L 501.5200, L500.4050, L100.0100 ####[facility] [address] [place], [address] ALT [Catalytic activity/Vol] 12 U/L Low 16-61 [facility] Comment on above: Performed By: #### L 501.5200, L500.4050, L100.0100 ####[facility] [address] [place], [address] AST [Catalytic activity/Vol] 10 U/L Low 15-37 [facility] Comment on above: Performed By: #### L 501.5200, L500.4050, L100.0100 ####[facility] [address] [place], [address] Bilirubin [Mass/Vol] 1.00 mg/dL Normal 0.20-1.00 [facility] Comment on above: Result Comment: For patients on eltrombopag therapy, use of Dimension [place] TBIL is not recommended. Performed By: #### L 501.5200, L500.4050, L100.0100 ####[facility] [address] [place], [address] BUN/CRE 29.4 RATIO High 10-20 [facility] Comment on above: Performed By: #### L 501.5200, L500.4050, L100.0100 ####[facility] [address] [place], [address] CA,Total 8.3 mg/dL Low 8.5-10.1 [facility] Comment on above: Performed By: #### L 501.5200, L500.4050, L100.0100 ####[facility] [address] [place], [address] Chloride [Moles/Vol] 110 mmol/L High 98-107 [facility] Comment on above: Performed By: #### L 501.5200, L500.4050, L100.0100 ####[facility] [address] [place], [address] CO2 [Moles/Vol] 33.0 mmol/L High 21.0-32.0 [facility] Comment on above: Performed By: #### L 501.5200, L500.4050, L100.0100 ####[facility] [address] [place], [address] Creatinine [Mass/Vol] 1.36 mg/dL High 0.70-1.30 [facility] Comment on above: Result Comment: The validity of the calculated GFR GFRAA in patients over70 years has not been determined. Clinical correlation isessential. Performed By: #### L 501.5200, L500.4050, L100.0100 ####[facility] [address] [place], [address] ECRCL 93.00 ml/min Normal [facility] Comment on above: Performed By: #### L 501.5200, L500.4050, L100.0100 ####[facility] [address] [place], [address] EST GFR - AA 68 mL/min Normal >60 [facility] Comment on above: Result Comment: Afri can Citizen [place] GFR Calc Performed By: #### L 501.5200, L500.4050, L100.0100 ####[facility] [address] [place], [address] GAP 3 Low 5-15 [facility] Comment on above: Performed By: #### L 501.5200, L500.4050, L100.0100 ####[facility] [address] [place], [address] GFR/1.73 sq M.predicted among non-blacks MDRD (S/P/Bld) [Vol rate/Area] 56 mL/min/{1.73_m2} Low >60 [facility] Comment on above: Result Comment: Non- GFR Calc Performed By: #### L 501.5200, L500.4050, L100.0100 ####[facility] [address] [place], [address] Globulin (S) [Mass/Vol] 3.1 g/dL Normal 2.2-4.2 [facility] Comment on above: Performed By: #### L 501.5200, L500.4050, L100.0100 ####[facility] [address] [place], [address] Glucose [Mass/Vol] 91 mg/dL Normal 74-106 [facility] Comment on above: Performed By: #### L 501.5200, L500.4050, L100.0100 ####[facility] [address] [place], [address] Potassium [Moles/Vol] 4.0 mmol/L Normal 3.5-5.1 [facility] Comment on above: Performed By: #### L 501.5200, L500.4050, L100.0100 ####[facility] [address] [place], [address] Sodium [Moles/Vol] 146 mmol/L High 136-145 [facility] Comment on above: Performed By: #### L 501.5200, L500.4050, L100.0100 ####[facility] [address] [place], [address] T PROT 5.8 g/dL Low 6.4-8.2 [facility] Comment on above: Performed By: #### L 501.5200, L500.4050, L100.0100 ####[facility] [address] [place], [address] Urea nitrogen [Mass/Vol] 40 mg/dL High 7-18 [facility] Comment on above: Performed By: #### L 501.5200, L500.4050, L100.0100 ####[facility] [address] [place], [address] Consultation - Intensiviston 05-19-2024 Consultation - Pediatric Oncologist Normal [facility] FLU AND RSV PANEL MOLECULARo n 05-19-2024 FLU AND RSV PANEL Normal Reference Ran ge = Negative FLUAV+FLUBV+RSV RNA pnl Up resp MED+pr GeneXpert Instrument, PCR method INFLUENZA A Negative INFLUENZA B Negative RSV PCR Negative Normal [facility] Comment on above: Performed By: #### M 100.640 ####[facility] [address] [place], [address] Gram Stainon 05-19-2024 GS Gram Stain 3+ White Blood Cells 2+ Gram positive cocci No Epithelial cells Normal [facility] Comment on above: Performed By: #### M 100.2000, M100.2400 ####[facility] [address] [place], [address] HH, Hemoglobin AND Hematocri ton 05-19-2024 Hematocrit (Bld) [Volume fraction] 24.2 % Low 40-54 [facility] Comment on above: Order Comment: Comme nts: Obtain 1-2 hours after PRBC x 1 completed Performed By: #### L 100.0600 ####[facility] [address] [place], [address] Hemoglobin (Bld) [Mass/Vol] 6.8 g/dL Low 13.0-16.5 [facility] Comment on above: Order Comment: Comme nts: Obtain 1-2 hours after PRBC x 1 completed Performed By: #### L 100.0600 ####[facility] [address] [place], [address] Legionella Antigen Urineon 1 07-19-2023 LEGU URINE, MCCARTHY Negative Presumptive negative for Legionella pneumophila serogroup 1 antigen in urine, suggesting no recent or current infection. Legionella Ag, Urine Negative (See interpretation below) Normal [facility] Comment on above: Performed By: #### M 300.4600, M300.4500 ####[facility] [address] [place], [address] Lipid Profileon 05-19-2024 Cholesterol [Mass/Vol] 89 mg/dL Normal 200 [facility] Comment on above: Result Comment: <200 mg/dL Desirable 200-240 mg/dL Borderline >240 mg/dL High Risk Performed By: #### L 500.4100, L501.2300 ####[facility] [address] [place], [address] Cholesterol in HDL [Mass/Vol] 33 mg/dL Low [facility] Comment on above: Result Comment: The drugs N-Acetylcysteine and Metamizole may falselydepress this assay. Reference Range HDL <40 mg/dL Low HDL Cholesterol HDL >or= 60 mg/dL High HDL Cholesterol Performed By: #### L 500.4100, L501.2300 ####[facility] [address] [place], [address] Cholesterol in LDL [Mass/Vol] 41 mg/dL Normal 0-130 [facility] Comment on above: Performed By: #### L 500.4100, L501.2300 ####[facility] [address] [place], [address] Cholesterol in VLDL [Mass/Vol] 15 mg/dL Normal 5-40 [facility] Comment on above: Performed By: #### L 500.4100, L501.2300 ####[facility] [address] [place], [address] Triglyceride [Mass/Vol] 73 mg/dL Normal [facility] Comment on above: Result Comment: The drugs N-Acetylcysteine and Metamizole may falselydepress this assay.Serum Triglycerides Reference Interval Normal <150 mg/dL Borderline high 150 - 199 mg/dL High 200 - 499 mg/dL Very High > or = 500 mg/dL Performed By: #### L 500.4100, L501.2300 ####[facility] [address] [place], [address] M8200.1000on 05-19-2024 M8200.1000 Normal Reference Ran ge = Negative MRSA DNA Nose Ql MED+probe GeneXpert Instrument, PCR method MRSA PCR MRSA NEGATIVE Normal [facility] Comment on above: Performed By: #### M 8200.1000 ####[facility] [address] [place], [address] Magnesiumon 05-19-2024 Magnesium [Mass/Vol] 2.2 mg/dL Normal 1.6-2.6 [facility] Comment on above: Performed By: #### L 501.5200, L500.4050, L100.0100 ####[facility] [address] [place], [address] Partial Thromboplast Timeon 05-19-2024 aPTT Coag (Bld) [Time] 45.9 s High 24.1-36.2 [facility] Comment on above: Performed By: #### L 300.4310 ####[facility] [address] [place], [address] Phosphoruson 05-19-2024 Phosphate [Mass/Vol] 4.8 mg/dL Normal 2.5-4.9 [facility] Comment on above: Performed By: #### L 500.4100, L501.2300 ####[facility] [address] [place], [address] Procalcitoninon 05-19-2024 Procalcitonin 0.18 ng/mL High 0.00-0.09 [facility] Comment on above: Result Comment: A pr ocalcitonin (PCT) level above 2.0 ng/mL on the first day of ICU admission is associated with a high risk for progression to severe sepsis and/or septic shock. A PCT level below 0.5 ng/mL on the first day of ICU admission is associated with a low risk for progression to severe and/or septic shock. Note: Concentrations <0.5 ng/mL do not exclude an infection on account of localized infections (without systemic signs) which can be associated with such low concentrations, or a systemic infection in its initial stages (<6 hours). Furthermore, increased procalcitonin can occur without infection. PCT concentrations between 0.5 and 2.0 ng/mL should be interpreted taking into account the patient's history. It is recommended to retest PCT within 6-24 hours if any concentrations <2 ng/mL are obtained. Performed By: #### L 509.7000 ####[facility] [address] [place], [address] Strep pneumoniae Antig(UR,CS F)on 05-19-2024 STPAG Normal [facility] Comment on above: Performed By: #### M 300.4600, M300.4500 ####[facility] [address] [place], [address] Venous Duplex US - Bart Extre mon 05-19-2024 Venous Duplex US - Bart Extrem Normal [facility] BRCon 05-18-2024 RC Normal [facility] Comment on above: Result Comment: [id number] OP RC TRANSFUSED 05/18/24 [id number] OP RC TRANSFUSED 05/19/24 0124 Performed By: #### B RC, BTS, [id number] ####[facility] [address] [place], [address] Basic Metabolic Profile (BMP )on 05-18-2024 BUN/CRE 31.8 RATIO High 10-20 [facility] Comment on above: Performed By: #### L 500.2500, L501.5200, L100.0100 ####[facility] [address] [place], [address] CA,Total 8.6 mg/dL Normal 8.5-10.1 [facility] Comment on above: Performed By: #### L 500.2500, L501.5200, L100.0100 ####[facility] [address] [place], [address] Chloride [Moles/Vol] 112 mmol/L High 98-107 [facility] Comment on above: Performed By: #### L 500.2500, L501.5200, L100.0100 ####[facility] [address] [place], [address] CO2 [Moles/Vol] 31.0 mmol/L Normal 21.0-32.0 [facility] Comment on above: Performed By: #### L 500.2500, L501.5200, L100.0100 ####[facility] [address] [place], [address] Creatinine [Mass/Vol] 1.29 mg/dL Normal 0.70-1.30 [facility] Comment on above: Result Comment: The validity of the calculated GFR GFRAA in patients over70 years has not been determined. Clinical correlation isessential. Performed By: #### L 500.2500, L501.5200, L100.0100 ####[facility] [address] [place], [address] ECRCL 98.50 ml/min Normal [facility] Comment on above: Performed By: #### L 500.2500, L501.5200, L100.0100 ####[facility] [address] [place], [address] EST GFR - AA 72 mL/min Normal >60 [facility] Comment on above: Result Comment: Afri can Citizen Of [place] GFR Calc Performed By: #### L 500.2500, L501.5200, L100.0100 ####[facility] [address] [place], [address] GAP 1 Low 5-15 [facility] Comment on above: Performed By: #### L 500.2500, L501.5200, L100.0100 ####[facility] [address] [place], [address] GFR/1.73 sq M.predicted among non-blacks MDRD (S/P/Bld) [Vol rate/Area] 59 mL/min/{1.73_m2} Low >60 [facility] Comment on above: Result Comment: Non- GFR Calc Performed By: #### L 500.2500, L501.5200, L100.0100 ####[facility] [address] [place], [address] Glucose [Mass/Vol] 165 mg/dL High 74-106 [facility] Comment on above: Result Comment: Fast ing Glucose result greater than or equal to 126 mg/dLsuggests DIABETES MELLITUS per A.D.A. criteria. Performed By: #### L 500.2500, L501.5200, L100.0100 ####[facility] [address] [place], [address] Potassium [Moles/Vol] 4.8 mmol/L Normal 3.5-5.1 [facility] Comment on above: Performed By: #### L 500.2500, L501.5200, L100.0100 ####[facility] [address] [place], [address] Sodium [Moles/Vol] 145 mmol/L Normal 136-145 [facility] Comment on above: Performed By: #### L 500.2500, L501.5200, L100.0100 ####[facility] [address] [place], [address] Urea nitrogen [Mass/Vol] 41 mg/dL High 7-18 [facility] Comment on above: Performed By: #### L 500.2500, L501.5200, L100.0100 ####[facility] [address] [place], [address] Blood Gases by [facility] 024 CAROLYN TEST Positive Normal [facility] Comment on above: Performed By: #### L 9000.0800 ####[facility] [address] [place], [address] Base excess Calc (Bld) [Moles/Vol] 7 mmol/L High -2 to +2 [facility] Comment on above: Performed By: #### L 9000.0800 ####[facility] [address] [place], [address] Blood Gas Type ART Normal [facility] Comment on above: Performed By: #### L 9000.0800 ####[facility] [address] [place], [address] CO2 [Moles/Vol] 34 mmol/L [facility] Comment on above: Performed By: #### L 9000.0800 ####[facility] [address] [place], [address] FI02 50.0 [facility] Comment on above: Performed By: #### L 9000.0800 ####[facility] [address] [place], [address] HCO3 (Bld) [Moles/Vol] 32.4 mmol/L High 22-26 [facility] Comment on above: Performed By: #### L 9000.0800 ####[facility] [address] [place], [address] Mode AC Normal [facility] Comment on above: Performed By: #### L 9000.0800 ####[facility] [address] [place], [address] O2 Delivery Dev Adult Vent Normal [facility] Comment on above: Performed By: #### L 9000.0800 ####[facility] [address] [place], [address] pCO2 57.8 mmHg High 35-45 [facility] Comment on above: Performed By: #### L 9000.0800 ####[facility] [address] [place], [address] PEEP 5 Normal [facility] Comment on above: Performed By: #### L 9000.0800 ####[facility] [address] [place], [address] pH (Bld) 7.36 [pH] Normal 7.35-7.45 [facility] Comment on above: Performed By: #### L 9000.0800 ####[facility] [address] [place], [address] PO2 80 mmHG Normal 75-100 [facility] Comment on above: Performed By: #### L 9000.0800 ####[facility] [address] [place], [address] RR 16 Normal [facility] Comment on above: Performed By: #### L 9000.0800 ####[facility] [address] [place], [address] SITE R Radial Normal [facility] Comment on above: Performed By: #### L 8999.0800 ####[facility] [address] [place], [address] SO2 95 Normal 95-99 [facility] Comment on above: Performed By: #### L 8999.0800 ####[facility] [address] [place], [address] Vt 450.0 mL Normal [facility] Comment on above: Performed By: #### L 8999.0800 ####[facility] [address] [place], [address] CAROLYN TEST Positive Normal [facility] Comment on above: Performed By: #### L 8999.08 ####[facility] [address] [place], [address] Base excess Calc (Bld) [Moles/Vol] 2 mmol/L Normal -2 to +2 [facility] Comment on above: Performed By: #### L 8999.0800 ####[facility] [address] [place], [address] Blood Gas Type ART Normal [facility] Comment on above: Performed By: #### L 8999.0800 ####[facility] [address] [place], [address] CO2 [Moles/Vol] 36 mmol/L Normal [facility] Comment on above: Performed By: #### L 8999.08 ####[facility] [address] [place], [address] Comment avaps Normal [facility] Comment on above: Performed By: #### L 8999.0800 ####[facility] [address] [place], [address] FI02 45.0 Normal [facility] Comment on above: Performed By: #### L 9000.0800 ####[facility] [address] [place], [address] HCO3 (Bld) [Moles/Vol] 32.4 mmol/L High 22-26 [facility] Comment on above: Performed By: #### L 9000.0800 ####[facility] [address] [place], [address] Mode Not entered Normal [facility] Comment on above: Performed By: #### L 9000.0800 ####[facility] [address] [place], [address] O2 Delivery Dev BiPAP Normal [facility] Comment on above: Performed By: #### L 9000.0800 ####[facility] [address] [place], [address] pCO2 112.7 mmHg Invalid Interpretation Code 35-45 [facility] Comment on above: Performed By: #### L 9000.0800 ####[facility] [address] [place], [address] PEEP 12 Normal [facility] Comment on above: Performed By: #### L 9000.0800 ####[facility] [address] [place], [address] pH (Bld) 7.07 [pH] Invalid Interpretation Code 7.35-7.45 [facility] Comment on above: Performed By: #### L 9000.0800 ####[facility] [address] [place], [address] PO2 96 mmHG Normal 75-100 [facility] Comment on above: Performed By: #### L 9000.0800 ####[facility] [address] [place], [address] Read Back By Yes [facility] Comment on above: Performed By: #### L 9000.0800 ####[facility] [address] [place], [address] Results To BROWN [facility] Comment on above: Performed By: #### L 9000.0800 ####[facility] [address] [place], [address] RR 16 [facility] Comment on above: Performed By: #### L 9000.0800 ####[facility] [address] [place], [address] SITE L Radial [facility] Comment on above: Performed By: #### L 9000.0800 ####[facility] [address] [place], [address] SO2 92 Low 95-99 [facility] Comment on above: Performed By: #### L 9000.0800 ####[facility] [address] [place], [address] Time Given 15:29:43 [facility] Comment on above: Performed By: #### L 9000.0800 ####[facility] [address] [place], [address] Vt 500.0 mL [facility] Comment on above: Performed By: #### L 9000.0800 ####[facility] [address] [place], [address] CAROLYN TEST Positive [facility] Comment on above: Performed By: #### L 9000.0800 ####[facility] [address] [place], [address] Base excess Calc (Bld) [Moles/Vol] 2 mmol/L Normal -2 to +2 [facility] Comment on above: Performed By: #### L 9000.0800 ####[facility] [address] [place], [address] Blood Gas Type ART Normal [facility] Comment on above: Performed By: #### L 9000.0800 ####[facility] [address] [place], [address] CO2 [Moles/Vol] 35 mmol/L Normal [facility] Comment on above: Performed By: #### L 0.0800 ####[facility] [address] [place], [address] FI02 45.0 Normal [facility] Comment on above: Performed By: #### L 0.0800 ####[facility] [address] [place], [address] HCO3 (Bld) [Moles/Vol] 31.6 mmol/L High 22-26 [facility] Comment on above: Performed By: #### L 9000.0800 ####[facility] [address] [place], [address] Mode BiLevel Normal [facility] Comment on above: Performed By: #### L 0.0800 ####[facility] [address] [place], [address] O2 Delivery Dev BiPAP Normal [facility] Comment on above: Performed By: #### L 0.0800 ####[facility] [address] [place], [address] pCO2 99.5 mmHg Invalid Interpretation Code 35-45 [facility] Comment on above: Performed By: #### L 9000.0800 ####[facility] [address] [place], [address] PEEP 8 Normal [facility] Comment on above: Performed By: #### L 9000.0800 ####[facility] [address] [place], [address] pH (Bld) 7.11 [pH] Invalid Interpretation Code 7.35-7.45 [facility] Comment on above: Performed By: #### L 9000.0800 ####[facility] [address] [place], [address] PO2 59 mmHG Low 75-100 [facility] Comment on above: Performed By: #### L 9000.0800 ####[facility] [address] [place], [address] Read Back By Yes [facility] Comment on above: Performed By: #### L 9000.0800 ####[facility] [address] [place], [address] Results To white Normal [facility] Comment on above: Performed By: #### L 9000.0800 ####[facility] [address] [place], [address] RR 12 Normal [facility] Comment on above: Performed By: #### L 9000.0800 ####[facility] [address] [place], [address] SITE R Radial Normal [facility] Comment on above: Performed By: #### L 9000.0800 ####[facility] [address] [place], [address] SO2 77 Low 95-99 [facility] Comment on above: Performed By: #### L 9000.0800 ####[facility] [address] [place], [address] Time Given 13:26:02 [facility] Comment on above: Performed By: #### L 9000.0800 ####[facility] [address] [place], [address] CAROLYN TEST Positive Normal [facility] Comment on above: Performed By: #### L 9000.0800 ####[facility] [address] [place], [address] Base excess Calc (Bld) [Moles/Vol] 2 mmol/L Normal -2 to +2 [facility] Comment on above: Performed By: #### L 9000.0800 ####[facility] [address] [place], [address] Blood Gas Type ART Normal [facility] Comment on above: Performed By: #### L 9000.0800 ####[facility] [address] [place], [address] CO2 [Moles/Vol] 35 mmol/L Normal [facility] Comment on above: Performed By: #### L 9000.0800 ####[facility] [address] [place], [address] FI02 6.0 [facility] Comment on above: Performed By: #### L 9000.0800 ####[facility] [address] [place], [address] HCO3 (Bld) [Moles/Vol] 31.9 mmol/L High 22-26 [facility] Comment on above: Performed By: #### L 9000.0800 ####[facility] [address] [place], [address] Mode Not entered Normal [facility] Comment on above: Performed By: #### L 9000.0800 ####[facility] [address] [place], [address] O2 Delivery Dev HFNC Normal [facility] Comment on above: Performed By: #### L 9000.0800 ####[facility] [address] [place], [address] pCO2 108.3 mmHg Invalid Interpretation Code 35-45 [facility] Comment on above: Performed By: #### L 9000.0800 ####[facility] [address] [place], [address] pH (Bld) 7.08 [pH] Invalid Interpretation Code 7.35-7.45 [facility] Comment on above: Performed By: #### L 9000.0800 ####[facility] [address] [place], [address] PO2 45 mmHG Low 75-100 [facility] Comment on above: Performed By: #### L 9000.0800 ####[facility] [address] [place], [address] Read Back By Yes Normal [facility] Comment on above: Performed By: #### L 9000.0800 ####[facility] [address] [place], [address] Results To mikey carbone Normal [facility] Comment on above: Performed By: #### L 9000.0800 ####[facility] [address] [place], [address] SITE R Radial Normal [facility] Comment on above: Performed By: #### L 9000.0800 ####[facility] [address] [place], [address] SO2 60 Low 95-99 [facility] Comment on above: Performed By: #### L 9000.0800 ####[facility] [address] [place], [address] Time Given 11:06:19 [facility] Comment on above: Performed By: #### L 9000.0800 ####[facility] [address] [place], [address] CBC W/Diff, Automatedon 11-0 Anisocytosis Ql (Bld) 2+ Normal [facility] Comment on above: Performed By: #### L 500.2500, L501.5200, L100.0100 ####[facility] [address] [place], [address] CPK Total, Creatine Kinaseon 05-18-2024 CPK TOTAL 52 U/L Normal 39-308 [facility] Comment on above: Order Comment: Comme nts: DC when propofol is d/c'dDC when propofol is d/c'd Performed By: #### L 501.3620, L501.5000 ####[facility] [address] [place], [address] CTA Chest W/WO Contraston CTA Chest W/WO Contrast Normal [facility] Chest 1 View (Portable)on Chest 1 View (Portable) Normal [facility] Consultation - Cardiologyon 05-18-2024 Consultation - Cardiology Normal [facility] Echo Limited w/Contraston Echo Limited w/Contrast Normal [facility] Hemoglobin A1con 05-18-2024 HbA1c (Bld) [Mass fraction] 5.6 % Normal 3.8-5.6 [facility] Comment on above: Result Comment: Norm al < 5.7 % Prediabetic 5.7 - 6.4 % Diabetic >or= 6.5 % Please note range changes. Performed By: #### L 501.9985 ####[facility] [address] [place], [address] Magnesiumon 05-18-2024 Magnesium [Mass/Vol] 2.6 mg/dL Normal 1.6-2.6 [facility] Comment on above: Performed By: #### L 500.2500, L501.5200, L100.0100 ####[facility] [address] [place], [address] Partial Thromboplast Timeon 05-18-2024 aPTT Coag (Bld) [Time] 30.8 s Normal 24.1-36.2 [facility] Comment on above: Performed By: #### L 300.4310, L300.3900 ####[facility] [address] [place], [address] Prothrombin Time w/INRon INR Coag (PPP) [Relative time] 1.3 {INR} Normal [facility] Comment on above: Performed By: #### L 300.4310, L300.3900 ####[facility] [address] [place], [address] PT Coag (PPP) [Time] 16.4 s High 11.7-14.9 [facility] Comment on above: Performed By: #### L 300.4310, L300.3900 ####[facility] [address] [place], [address] RESPIRATORY PANEL MOLECULARo n 05-18-2024 RP PANEL Normal [facility] Comment on above: Performed By: #### M 100.638 ####[facility] [address] [place], [address] T4 Free Directon 05-18-2024 T4 FREE DIRECT 0.97 ng/dL Normal 0.76-1.46 [facility] Comment on above: Order Comment: Comme nts: add to am labsadd to am labs Performed By: #### L 506.0400, L501.9520 ####[facility] [address] [place], [address] Thyroid Stim Hormone (TSH)on 05-18-2024 TSH 1.550 uIU/mL Normal 0.358-3.740 [facility] Comment on above: Order Comment: Comme nts: add to am labsadd to am labs Performed By: #### L 506.0400, L501.9520 ####[facility] [address] [place], [address] Triglycerideson 05-18-2024 Triglyceride [Mass/Vol] 66 mg/dL Normal [facility] Comment on above: Order Comment: Comme nts: DC when propofol is d/c'dDC when propofol is d/c'd Result Comment: The drugs N-Acetylcysteine and Metamizole may falselydepress this assay.Serum Triglycerides Reference Interval Normal <150 mg/dL Borderline high 150 - 199 mg/dL High 200 - 499 mg/dL Very High > or = 500 mg/dL Performed By: #### L 501.3620, L501.5000 ####[facility] [address] [place], [address] Type AND Screenon 05-18-2024 Ab SCREEN GEL TNP Normal [facility] Comment on above: Order Comment: CMV N EG? NNumber of units to transfuse: 2Is this product for anemia associated withhemoglobinopathy? NIs pt's Hgb is 10mmHg)? NIs this for PREOP anemia correction prior to anesthesia? NReason for Ordering Blood: ChronicIs there symptomatic anemia? Margoth the blood/blood products to be transfused? YIs the patient having/had surgery? NWhen ReadyNY Performed By: #### B RC, BTS, L06809-6 ####[facility] [address] [place], [place], [address] 12 Lead EKGon 05-17-2024 12 Lead EKG Normal [facility] BNP,B-Type NATRIURETIC PEPTI Mundo 05-17-2024 Natriuretic peptide B (Bld) [Mass/Vol] 525.4 pg/mL High 0-100 [facility] Comment on above: Performed By: #### L 501.5425, L300.3900, L500.4050, L100.0100, L503.6620 ####[facility] [address] [place], [place], [address] CBC W/Diff, Automatedon HYPOCHROMASIA 2+ Normal [facility] Comment on above: Performed By: #### L 501.5425, L300.3900, L500.4050, L100.0100, L503.6620 ####[facility] [address] [place], [address] MICROCYTIC RARE Normal [facility] Comment on above: Performed By: #### L 501.5425, L300.3900, L500.4050, L100.0100, L503.6620 ####[facility] [address] [place], [address] POLYCHROMASIA 1+ Normal [facility] Comment on above: Performed By: #### L 501.5425, L300.3900, L500.4050, L100.0100, L503.6620 ####[facility] [address] [place], [address] TARGET CELLS RARE [facility] Comment on above: Performed By: #### L 501.5425, L300.3900, L500.4050, L100.0100, L503.6620 ####[facility] [address] [place], [address] Anisocytosis Ql (Bld) 2+ Normal [facility] Comment on above: Performed By: #### L 501.5425, L300.3900, L500.4050, L100.0100, L503.6620 ####[facility] [address] [place], [address] SMEAR COMMENT SCANNED [facility] Comment on above: Performed By: #### L 501.5425, L300.3900, L500.4050, L100.0100, L503.6620 ####[facility] [address] [place], [address] COVID 19 AG RAPID (DEREK Davey)on 05-17-2024 SARS-CoV-2 (COVID-19) RNA MED+probe Ql (Unsp spec) Normal [facility] Comment on above: Performed By: #### M 100.505 ####[facility] [address] [place], [address] Chest 1 View (Portable)on Chest 1 View (Portable) Normal [facility] Comprehensive Metabolic Prof ilon 05-17-2024 Albumin [Mass/Vol] 3.0 g/dL Low 3.2-5.0 [facility] Comment on above: Order Comment: 1Y Performed By: #### L 501.5425, L300.3900, L500.4050, L100.0100, L503.6620 ####[facility] [address] [place], [address] Albumin/Globulin [Mass ratio] 0.9 {ratio} Normal 0.9-2.4 [facility] Comment on above: Order Comment: 1Y Performed By: #### L 501.5425, L300.3900, L500.4050, L100.0100, L503.6620 ####[facility] [address] [place], [address] ALK P 85 U/L Normal 45-117 [facility] Comment on above: Order Comment: 1Y Performed By: #### L 501.5425, L300.3900, L500.4050, L100.0100, L503.6620 ####[facility] [address] [place], [address] ALT [Catalytic activity/Vol] 16 U/L Normal 16-61 [facility] Comment on above: Order Comment: 1Y Performed By: #### L 501.5425, L300.3900, L500.4050, L100.0100, L503.6620 ####[facility] [address] [place], [address] AST [Catalytic activity/Vol] 14 U/L Low 15-37 [facility] Comment on above: Order Comment: 1Y Performed By: #### L 501.5425, L300.3900, L500.4050, L100.0100, L503.6620 ####[facility] [address] [place], [address] Bilirubin [Mass/Vol] 0.70 mg/dL Normal 0.20-1.00 [facility] Comment on above: Order Comment: 1Y Result Comment: For patients on eltrombopag therapy, use of Dimension [place] TBIL is not recommended. Performed By: #### L 501.5425, L300.3900, L500.4050, L100.0100, L503.6620 ####[facility] [address] [place], [address] BUN/CRE 30.1 RATIO High 10-20 [facility] Comment on above: Order Comment: 1Y Performed By: #### L 501.5425, L300.3900, L500.4050, L100.0100, L503.6620 ####[facility] [address] [place], [address] CA,Total 8.6 mg/dL Normal 8.5-10.1 [facility] Comment on above: Order Comment: 1Y Performed By: #### L 501.5425, L300.3900, L500.4050, L100.0100, L503.6620 ####[facility] [address] [place], [address] Chloride [Moles/Vol] 113 mmol/L High 98-107 [facility] Comment on above: Order Comment: 1Y Performed By: #### L 501.5425, L300.3900, L500.4050, L100.0100, L503.6620 ####[facility] [address] [place], [address] CO2 [Moles/Vol] 29.0 mmol/L Normal 21.0-32.0 [facility] Comment on above: Order Comment: 1Y Performed By: #### L 501.5425, L300.3900, L500.4050, L100.0100, L503.6620 ####[facility] [address] [place], [address] Creatinine [Mass/Vol] 1.46 mg/dL High 0.70-1.30 [facility] Comment on above: Order Comment: 1Y Result Comment: The validity of the calculated GFR GFRAA in patients over70 years has not been determined. Clinical correlation isessential. Performed By: #### L 501.5425, L300.3900, L500.4050, L100.0100, L503.6620 ####[facility] [address] [place], [address] ECRCL 87.35 ml/min Normal [facility] Comment on above: Order Comment: 1Y Performed By: #### L 501.5425, L300.3900, L500.4050, L100.0100, L503.6620 ####[facility] [address] [place], [address] EST GFR - AA 62 mL/min Normal >60 [facility] Comment on above: Order Comment: 1Y Result Comment: Afri can Citizen [place] GFR Calc Performed By: #### L 501.5425, L300.3900, L500.4050, L100.0100, L503.6620 ####[facility] [address] [place], [address] GAP 4 Low 5-15 [facility] Comment on above: Order Comment: 1Y Performed By: #### L 501.5425, L300.3900, L500.4050, L100.0100, L503.6620 ####[facility] [address] [place], [address] GFR/1.73 sq M.predicted among non-blacks MDRD (S/P/Bld) [Vol rate/Area] 51 mL/min/{1.73_m2} Low >60 [facility] Comment on above: Order Comment: 1Y Result Comment: Non- GFR Calc Performed By: #### L 501.5425, L300.3900, L500.4050, L100.0100, L503.6620 ####[facility] [address] [place], [address] Globulin (S) [Mass/Vol] 3.5 g/dL Normal 2.2-4.2 [facility] Comment on above: Order Comment: 1Y Performed By: #### L 501.5425, L300.3900, L500.4050, L100.0100, L503.6620 ####[facility] [address] [place], [address] Glucose [Mass/Vol] 132 mg/dL High 74-106 [facility] Comment on above: Order Comment: 1Y Result Comment: Fast ing Glucose result greater than or equal to 126 mg/dLsuggests DIABETES MELLITUS per A.D.A. criteria. Performed By: #### L 501.5425, L300.3900, L500.4050, L100.0100, L503.6620 ####[facility] [address] [place], [address] Potassium [Moles/Vol] 4.8 mmol/L Normal 3.5-5.1 [facility] Comment on above: Order Comment: 1Y Performed By: #### L 501.5425, L300.3900, L500.4050, L100.0100, L503.6620 ####[facility] [address] [place], [address] Sodium [Moles/Vol] 146 mmol/L High 136-145 [facility] Comment on above: Order Comment: 1Y Performed By: #### L 501.5425, L300.3900, L500.4050, L100.0100, L503.6620 ####[facility] [address] [place], [address] T PROT 6.5 g/dL Normal 6.4-8.2 [facility] Comment on above: Order Comment: 1Y Performed By: #### L 501.5425, L300.3900, L500.4050, L100.0100, L503.6620 ####[facility] [address] [place], [address] Urea nitrogen [Mass/Vol] 44 mg/dL High 7-18 [facility] Comment on above: Order Comment: 1Y Performed By: #### L 501.5425, L300.3900, L500.4050, L100.0100, L503.6620 ####[facility] [address] [place], [address] Emergency Department Summary on 05-17-2024 Emergency Department Summary Normal [facility] H AND P Exam - Hospitaliston 05-17-2024 H&P Exam - Hospitalist Normal [facility] L501.4020on 05-17-2024 TROPONIN-I HS 21 pg/mL Normal 3.0-78.0 [facility] Comment on above: Result Comment: Plea se Note: New Test Units and Gender Specific Reference Ranges. For more information see Policy Stat Procedure [place] High Sensitivity Troponin (TNIH) and attachments. Performed By: #### L 501.4020 ####[facility] [address] [place], [address] L501.5425on 05-17-2024 TROPONIN-I HS 23 pg/mL Normal 3.0-78.0 [facility] Comment on above: Order Comment: 1Y Result Comment: Plea se Note: New Test Units and Gender Specific Reference Ranges. For more information see Policy Stat Procedure [place] High Sensitivity Troponin (TNIH) and attachments. Performed By: #### L 501.5425, L300.3900, L500.4050, L100.0100, L503.6620 ####[facility] [address] [place], [address] Partial Thromboplast Timeon 05-17-2024 aPTT Coag (Bld) [Time] 25.8 s Normal 24.1-36.2 [facility] Comment on above: Order Comment: REDRA W. PREVIOUS SPECIMEN REJECTED DUE TOQNS. 05/17/241623 Performed By: #### L 300.3900, L300.4310 ####[facility] [address] [place], [address] Prothrombin Time w/INRon INR Coag (PPP) [Relative time] 1.3 {INR} Normal [facility] Comment on above: Order Comment: REDRA W. PREVIOUS SPECIMEN REJECTED DUE TOQNS. 05/17/241623 Performed By: #### L 300.3900, L300.4310 ####[facility] [address] [place], [address] PT Coag (PPP) [Time] 16.3 s High 11.7-14.9 [facility] Comment on above: Order Comment: REDRA W. PREVIOUS SPECIMEN REJECTED DUE TOQNS. 05/17/241623 Performed By: #### L 300.3900, L300.4310 ####[facility] [address] [place], [address] INR Normal [facility] Comment on above: Result Comment: This specimen has been REJECTED due to Laboratory criteria:Quanity Not Sufficient.ED has been notified of need of recollection.05/17/241623 Performed By: #### L 501.5428, L300.3900, L500.4050, L100.0100, L503.6620 ####[facility] [address] [place], [address] PROTIME Normal 11.7-14.9 [facility] Comment on above: Result Comment: This specimen has been REJECTED due to Laboratory criteria:Quanity Not Sufficient.ED has been notified of need of recollection.05/17/24 1624 Performed By: #### L 501.5425, L300.3900, L500.4050, L100.0100, L503.6620 ####[facility] [address] [place], [address] Urinalysis, Completeon 05-17 BILIRUBIN URINE Negative Normal Negative [facility] Comment on above: Order Comment: DELMA TER SPECIMEN Performed By: #### L 400.0001 ####[facility] [address] [place], [address] Clarity (U) Clear Normal Clear [facility] Comment on above: Order Comment: DELMA TER SPECIMEN Performed By: #### L 400.0001 ####[facility] [address] [place], [address] Color (U) Straw Normal Yellow [facility] Comment on above: Order Comment: DELMA TER SPECIMEN Performed By: #### L 400.0001 ####[facility] [address] [place], [address] GLUCOSE, UR Normal Normal Normal [facility] Comment on above: Order Comment: DELMA TER SPECIMEN Performed By: #### L 400.0001 ####[facility] [address] [place], [address] KETONE UR Negative Normal Negative [facility] Comment on above: Order Comment: DELMA TER SPECIMEN Performed By: #### L 400.0001 ####[facility] [address] [place], [address] LEUK ESTERASE Negative Normal Negative [facility] Comment on above: Order Comment: DELMA TER SPECIMEN Performed By: #### L 400.0001 ####[facility] [address] [place], [address] Nitrite Ql (U) Negative Normal Negative [facility] Comment on above: Order Comment: DELMA TER SPECIMEN Performed By: #### L 400.0001 ####[facility] [address] [place], [address] OCCULT BLOOD-UR Negative Normal Negative [facility] Comment on above: Order Comment: DELMA TER SPECIMEN Performed By: #### L 400.0001 ####[facility] [address] [place], [address] pH UR 6.0 Normal 5.0 - 8.0 [facility] Comment on above: Order Comment: DELMA TER SPECIMEN Performed By: #### L 400.0001 ####[facility] [address] [place], [address] PROT DIPSTX 30 mg/dl Abnormal Negative [facility] Comment on above: Order Comment: DELMA TER SPECIMEN Performed By: #### L 400.0001 ####[facility] [address] [place], [address] SP.GR. DIPSTX 1.020 Normal 1.002-1.030 [facility] Comment on above: Order Comment: DELMA TER SPECIMEN Performed By: #### L 400.0001 ####[facility] [address] [place], [address] UROBILI Normal Normal Normal [facility] Comment on above: Order Comment: DELMA TER SPECIMEN Performed By: #### L 400.0001 ####[facility] [address] [place], [address] BACTERIA 0 SEEN Normal None Seen [facility] Comment on above: Order Comment: DELMA TER SPECIMEN Performed By: #### L 400.0001 ####[facility] [address] [place], [address] EPI,SQUAMOUS 0 SEEN Normal 0-5 [facility] Comment on above: Order Comment: DELMA TER SPECIMEN Performed By: #### L 400.0001 ####[facility] [address] [place], [address] Mucus Ql (Urine sed) 0 SEEN Normal [facility] Comment on above: Order Comment: DELMA TER SPECIMEN Performed By: #### L 400.0001 ####[facility] [address] [place], [address] RBC 0 SEEN Normal 0-5 [facility] Comment on above: Order Comment: DELMA TER SPECIMEN Performed By: #### L 400.0001 ####[facility] [address] [place], [address] WBC 0 SEEN Normal 0-5 [facility] Comment on above: Order Comment: DELMA TER SPECIMEN Performed By: #### L 400.0001 ####[facility] [address] [place], [address] CBC W/Diff, Automatedon 10- PATH REV Reviewed Normal [facility] Comment on above: Order Comment: Order Info: 3016-3 - TSH ORDERED BY DR. Milton GARZA OTHER LABS ORDERED BY DR TOUSSAINT Result Comment: Panc ytopenia.LEUKOPENIASEVERE Macrocytic anemia.MILD Thrombocytopenia.Clinical correlation necessary.Rajiv Jean Baptiste M.D. 05/09/24 AMENDED REPORT 05/09/24 1418 PATH REV previously reported as: November Performed By: #### L 503.6550, L503.6030, L100.9950, L100.0100 ####[facility] [address] [place], [address] Type AND Screenon 05-09-2024 ABO and Rh group Nom (Bld) Blood group O Rh(D) positive Normal [facility] Comment on above: Order Comment: N1 08/04 08:00AMNYA Performed By: #### B 92271-6, BTS, BRC ####[facility] [address] [place], [address] BRCon 05-08-2024 RC Normal [facility] Comment on above: Result Comment: [id number] OP RC TRANSFUSED 05/11/24 [id number] OP RC TRANSFUSED 05/11/24 1045 Performed By: #### B 76808-7, BTS, BRC ####[facility] [address] [place], [place], [address] Blood schistocyte detection by light microscopyOrdered By: Herbert Toussaint on 05-08-2024 Schistocytes LM Ql (Bld) 1+ [facility] Ferritinon 05-08-2024 Ferritin [Mass/Vol] 7 ng/mL Low 26-388 [facility] Comment on above: Order Comment: Order Date: 12/27/23Order Info: 301-3 - TSH ORDERED BY DR. Milton GARZA OTHER LABS ORDERED BY DR TOUSSAINT Performed By: #### L 503.6550, L503.6030, L100.9950, L100.0100 ####[facility] [address] [place], [place], [address] Hemoglobin (Reticulocytes) [ Entitic mass]Ordered By: Herbert Toussaint on 05-08-2024 Reticulocyte Hemoglobin Equivalent 20.4 pg Low 30-35 [facility] Immature reticulocyte fracti onOrdered By: Herbret Toussaint on 05-08-2024 Immature Reticulocyte Fraction 20.00 % High 3.00-15.90 [facility] Iron+Iron Binding Capacityon 05-08-2024 Iron [Mass/Vol] 14 ug/dL Low 65-175 [facility] Comment on above: Order Comment: Order Date: 12/27/23Order Info: 3016-3 - TSH ORDERED BY DR. Milton GARZA OTHER LABS ORDERED BY DR TOUSSAINT Performed By: #### L 503.6550, L503.6030, L100.9950, L100.0100 ####[facility] [address] [place], [address] IRON SATURATION 3.5 Low 15.0-55.0 [facility] Comment on above: Order Comment: Order Date: 12/27/23Order Info: 301-3 - TSH ORDERED BY DR. Milton GARZA OTHER LABS ORDERED BY DR TOUSSAINT Performed By: #### L 503.6550, L503.6030, L100.9950, L100.0100 ####[facility] [address] [place], [address] TIBC 403 ug/dL Normal 250-450 [facility] Comment on above: Order Comment: Order Date: 12/27/23Order Info: 3016-3 - TSH ORDERED BY DR. Milton GARZA OTHER LABS ORDERED BY DR TOUSSAINT Performed By: #### L 503.6550, L503.6030, L100.9950, L100.0100 ####[facility] [address] [place], [address] Oncology Visit Reporton - Oncology Visit Report Normal [facility] Retic Panelon 05-08-2024 IM RET FRACTION 20.00 High 3.00-15.90 [facility] Comment on above: Order Comment: Order Info: 3016-3 - TSH ORDERED BY DR. Milton GARZA OTHER LABS ORDERED BY DR TOUSSAINT Performed By: #### L 503.6550, L503.6030, L100.9950, L100.0100 ####[facility] [address] [place], [address] RET-HE 20.4 pg Low 30-35 [facility] Comment on above: Order Comment: Order Info: 3016-3 - TSH ORDERED BY DR. Milton GARZA OTHER LABS ORDERED BY DR TOUSSAINT Performed By: #### L 503.6550, L503.6030, L100.9950, L100.0100 ####[facility] [address] [place], [address] Retic Count 3.14 High 0.5-1.5 [facility] Comment on above: Order Comment: Order Info: 3016-3 - TSH ORDERED BY DR. Milton GARZA OTHER LABS ORDERED BY DR TOUSSAINT Performed By: #### L 503.6550, L503.6030, L100.9950, L100.0100 ####[facility] [address] [place], [address] Reticulocyte hemoglobin equi valent (RET-He) measurementOrdered By: Herbert Toussaint on 05-08-2024 Hemoglobin (Reticulocytes) [Entitic mass] 20.4 pg Low 30-35 [facility] Reticulocytes Auto (Bld) [#/ Vol]Ordered By: Herbert Toussaint on 05-08-2024 Reticulocyte Count 3.14 % High 0.5-1.5 [facility] Reticulocytes/100 RBC (Bld) 3.14 % High 0.5-1.5 [facility] Schistocytes LM Ql (Bld)Orde red By: Herbert Toussaint on 05-08-2024 Schistocytes 1+ [facility] Thyroid Stim Hormone (TSH)on 05-08-2024 TSH 2.230 uIU/mL Normal 0.358-3.740 [facility] Comment on above: Order Comment: Order Date: 12/27/23Order Info: 3016-3 - TSH ORDERED BY DR. Milton GARZA OTHER LABS ORDERED BY DR TOUSSAINT Performed By: #### L 501.9520 ####[facility] [address] [place], [address] BRCon 03-20-2024 RC Normal [facility] Comment on above: Result Comment: [id number] OP RC TRANSFUSED 03/21/24 0752 Performed By: #### B RC, BTS ####[facility] [address] [place], [address] CBC W/Diff, Automatedon HYPOCHROMASIA 1+ Normal [facility] Comment on above: Performed By: #### L 100.0100 ####[facility] [address] [place], [address] MACROCYTOSIS 1+ Normal [facility] Comment on above: Performed By: #### L 100.0100 ####[facility] [address] [place], [address] OVALOCYTE RARE Normal [facility] Comment on above: Performed By: #### L 100.0100 ####[facility] [address] [place], [address] Anisocytosis Ql (Bld) 1+ Normal [facility] Comment on above: Performed By: #### L 100.0100 ####[facility] [address] [place], [address] PLT EST SLT DEC Normal ADEQ [facility] Comment on above: Performed By: #### L 100.0100 ####[facility] [address] [place], [address] RED CELL MORPH N CHROM Normal NORM C C [facility] Comment on above: Performed By: #### L 100.0100 ####[facility] [address] [place], [address] Erythrocyte morphology asses smentOrdered By: Herbert Toussaint on 03-20-2024 RBC morphology finding Nom (Bld) N CHROM NORMAL NORM C&C [facility] RBC morphology finding Nom ( Bld)Ordered By: Herbert Toussaint on 03-20-2024 Red Blood Cell Morphology N CHROM NORMAL NORM C&C [facility] Type AND Screenon 03-20-2024 Ab SCREEN GEL Negative Normal [facility] Comment on above: Order Comment: A Performed By: #### B RC, BTS ####[facility] [address] [place], [address] BRCon 03-08-2024 RC Normal [facility] Comment on above: Result Comment: [id number] OP RC TRANSFUSED 03/09/24 1133 Performed By: #### B TS, BRC ####[facility] [address] [place], [address] Iron+Iron Binding Capacityon 03-08-2024 IRON Normal 65-175 [facility] Comment on above: Result Comment: SHAJI Parmar DONE T-1 Performed By: #### L 503.6030 ####[facility] [address] [place], [address] IRON SATURATION Normal 15.0-55.0 [facility] Comment on above: Result Comment: SHAJI Parmar DONE T-1 Performed By: #### L 503.6030 ####[facility] [address] [place], [address] TIBC Normal 250-450 [facility] Comment on above: Result Comment: SHAJI Parmar DONE T-1 Performed By: #### L 503.6030 ####[facility] [address] [place], [address] Type AND Screenon 03-08-2024 Ab SCREEN GEL Negative Normal [facility] Comment on above: Order Comment: R Performed By: #### B TS, [facility] ####[facility] [address] [place], [address] CBC W/Diff, Automatedon 02-10 Anisocytosis Ql (Bld) 2+ Normal [facility] Comment on above: Performed By: #### L 503.6030, L503.6550, L100.0100 ####[facility] [address] [place], [address] HYPOCHROMASIA 1+ Normal [facility] Comment on above: Performed By: #### L 503.6030, L503.6550, L100.0100 ####[facility] [address] [place], [address] SMEAR COMMENT SCANNED Normal [facility] Comment on above: Performed By: #### L 503.6030, L503.6550, L100.0100 ####[facility] [address] [place], [address] Ferritinon 03-07-2024 Ferritin [Mass/Vol] 12 ng/mL Low 26-388 [facility] Comment on above: Performed By: #### L 503.6030, L503.6550, L100.0100 ####[facility] [address] [place], [address] Iron+Iron Binding Capacityon 03-07-2024 Iron [Mass/Vol] 23 ug/dL Low 65-175 [facility] Comment on above: Performed By: #### L 503.6030, L503.6550, L100.0100 ####[facility] [address] [place], [address] IRON SATURATION 6.4 Low 15.0-55.0 [facility] Comment on above: Performed By: #### L 503.6030, L503.6550, L100.0100 ####[facility] [address] [place], [address] TIBC 357 ug/dL Normal 250-450 [facility] Comment on above: Performed By: #### L 503.6030, L503.6550, L100.0100 ####[facility] [address] [place], [address] CNDSon 01-08-2024 CNDS HNO ID: [id number] Author: ITALO ARRINGTON MD Service: Hospital Medicine Author Type: Nurse Practitioner Type: Discharge Summary Filed: 02/25/2024 14:45 Note Text: Attestation signed by Italo Arrington MD at 02/25/2024 2:45 PM Attending Note I have personally reviewed the KAN note and have discussed the management of this patient with the KAN. Active Hospital Problems Diagnosis UTI (urinary tract infection) Hypothyroidism Iron deficiency anemia Morbid obesity with BMI of 40.0-44.9, adult (HCC) Compression fracture of L2 vertebra with routine healing Bilateral lower extremity edema Lymphedema Essential hypertension Type 2 diabetes mellitus, without long-term current use of insulin (HCC) Other additions or changes: As edited Signature: Italo Arrington MD, [facility] Date: 01/08/2024 Time: 6:45 PM DISCHARGE SUMMARY PATIENT NAME: Khoa Connors Jr. ADMISSION DATE: 12/31/2023 DISCHARGE DATE: 01/08/2024 ATTENDING PHYSICIAN: Nina Keene,* Code Status: Full Code Highest Readmission Risk Score: 12 The 30 day readmissions risk score is derived from an internally validated risk model which evaluates patient level characteristics, utilization history, medication orders and lab results up until the day of discharge. Patients with a score of 40 or above are considered highest risk for readmission. Specific patient level drivers will be listed at the bottom of the summary. CONSULTING TEAMS DURING HOSPITALIZATION: None Treatment Team: Attending Provider: Nina Keene MD Nurse Practitioner: Raven Thakkar APRN.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 REASON FOR HOSPITALIZATION: rehabilitation following hospitalization DIAGNOSIS: Principal Problem (Resolved): Aftercare (POA: Yes) Active Problems: Compression fracture of L2 vertebra with routine healing (POA: Yes) Bilateral lower extremity edema (POA: Yes) Lymphedema (POA: Yes) Type 2 diabetes mellitus, without long-term current use of insulin (HCC) (POA: Yes) Essential hypertension (POA: Yes) Iron deficiency anemia (POA: Yes) Morbid obesity with BMI of 40.0-44.9, adult (HCC) (POA: Yes) UTI (urinary tract infection) (POA: Yes) Hypothyroidism (POA: Yes) Resolved Problems: Acute respiratory failure with hypoxia (HCC) (POA: Yes) Urinary retention (POA: Yes) Obesity Class III (BMI +/>40 or >35 with comorbidity) OPERATIONS DURING HOSPITALIZATION: None PROCEDURES DURING HOSPITALIZATION: No procedures performed HOSPITAL COURSE: Khoa Connors Jr. is a 63 year old male with PMH significant for morbid obesity, hypothyroidism, compression fractures, chronic iron deficiency anemia, chronic lymphedema, and physical debility, presented to [facility] from [facility] for rehabilitation following hospitalization. The patient was admitted to [facility] for fall and acute back pain. He received IV dilaudid for the pain and then subsequently went into respiratory failure requiring ICU and NIPPV. He was evaluated by pulmonology who felt respiratory failure was 2/2 pain medication, likely GLENN/OHS and possibly component of FVO. He as weaned from NIPPV to NC and diuresed with IV lasix. Will need formal work up for GLENN as outpatient for home PAP therapy to be arranged. IV lasix was transitioned to Lasix 40mg BID upon discharge. He was found to have L2 compression fracture which was thought to be chronic, this was managed conservatively with tylenol and PT/OT. Hemoglobin varied from 7-8 range during hospitalization, ferritin was very low at 11. He received IV iron while in the hospital and will need to follow up with Dr. Drake (Heme/Onc) as outpatient. The patient was evaluated by PT/OT who recommended SNF so [facility]. - patient continued to progress with therapy and is being DCd home with self care and will set up outpatient therapy (referrals placed). Patient REFUSED [facility] services. - patient continued to take lasix BID with good improvement in fluid removal from legs. (continue at home) - patient was found to have UTI (>=100,000 CFU/ml Enterococcus faecalis) and treated with oral antibiotics per sensitivities in culture. - patient passed voiding trial and had catheter removed. - A1C was checked which was noted at 5.4%. No longer taking Metformin at home, thus removed from DATA ENTRY TECHNICIAN list. - continue to take home iron supplement and follow up with Dr. Drake outpatient for CBC checks. - BP was elevated at rehab, but patient declined anti-HTN medications. Continue to watch salt intake and follow up with PCP in regards to elevated BPs. - follow up with PCP in 1-2 weeks to discuss recent hospitalization and rehab. - return to the ED if symptoms return. Transitions of Care Critical Issues: - Lasix 40m (more content not included)... [facility] THERAPY NTon 01-07-2024 THERAPY NT HNO ID: [id number] Author: BLAINE BENITO, LABORATORY TECHNICIAN Service: Respiratory Therapy Author Type: Registered Resp Therapist Type: Therapy (PT/OT/Speech/Resp) Filed: 01/07/2024 16:13 Note Text: Patient requested bipap unit be removed from his room. Patient stated he has not and will not be using it at night. Patient informed to notify respiratory if he would like to use. DEREK Nelson notified. [facility] THERAPY NT HNO ID: [id number] Author: JACKIE VILLA PT Service: Physical Therapy Author Type: Physical Therapist Type: Therapy (PT/OT/Speech/Resp) Filed: 01/07/2024 09:31 Note Text: Summary: PT discharge note Physical Therapy [facility] Facility Treatment Summary SERVICE DATE: 01/07/2024 SERVICE TIME: 854 to 922 ROOM: [place] [address] Discharge Therapy Services Discharged (date): 01/09/24 Discharged To: Home Home Exercise Program Status: Assist Ability To Apply Precautions Upon Discharge: Requires Cues Equipment Issued: Gait Belt PT 6 Clicks Score: 23 DISCHARGE RECOMMENDATIONS Home PT Recommended Discharge Disposition Comments: Home PT with continued 24/ supervision from spouse as able. May continue to benefit from outpatient PT once cleared by home health Anticipated Discharge Needs: Physical Assist at Home, Supervision at Home Recommended Discharge Equipment: To Be Determined GOALS Patient will demonstrate progress with functional mobility to allow safe discharge to home with available support and/or physical assistance. Able to Perform HEP with: Independent Transfer Sit to/from Stand with: Supervision Ambulate with: Contact Guard Assistance Distance: 50 Device: Wheeled Walker Ambulate Up and Down Curb Step with: Contact Guard Assistance Device: Wheeled Walker (4) ROM: BLE strength to at least 3+/5 such that patient is able to complete at least 10 minutes of graded therapeutic activity Goal: 10 MWT > 0.5 m/s at [facility] Rehab Potential: Fair Progress Toward Goals: Progressing as expected ASSESSMENT Response to Therapy Interventions: On-Track to Achieve Discharge Goals Discharge to home setting effective Wednesday, with patient at or above his baseline level of function, completing 8 stairs with CGA and SPC. Patient highly concerned regarding purchase of SPC, as he only has a PO box, and does not have a regular mailing address as he reports the [employer] knock my mailbox off all the time. Gave information on different medical supply companies in the area, and also offered [employer] as a potential suggestion for ordering a cane. See discharge instructions for further details with spouse to provide 01/02 assist. Plan for Next Visit: (discharge) PRECAUTIONS Fall Risk, Lines/Tubes/Drains LBP due to L2 compression fracture- no excessive BLT (patient states fx is chronic), lymphadema- ALDO wraps to LEs, RLE weakness due to chronic L5 compression fracture, L TKA 09/04 SUBJECTIVE Discharge to home setting effective Wednesday due to spouse unwilling to picker and packer patient due to rain. FUNCTIONAL STATUS Bed Mobility Rolling: Supervision Supine To Sit: Stand By Assistance Sit to Supine: Stand By Assistance Scooting: Stand By Assistance Transfers Sit To Stand: Stand By Assistance Stand To Sit: Stand By Assistance Bed to Chair Stand By Assistance Bed To Chair Transfer Type: Stepping Bed To Chair Transfer Equipment: Gait Belt, Wheeled Walker Gait Stand By Assistance Gait Device: Wheeled Walker Gait Distance (feet): 175' x 2 Stairs Stand By Assistance Stairs Device: Rail (bilateral) Number of Stairs: 8 Curb Step: Contact Guard Assistance Device: Walker CURRENT HOSPITAL COURSE Patient is a 63 year old male presenting to [facility] s/p hospitalization at [place] for mechanical fall with resultant low back pain, L2 compression fracture, morbid obesity, hypothyroidism, with ICU admit due to respiratory decompression potentially due to GLENN and hypoventilation syndrome requiring 2-3 L O2 at rest, and lymphadema, chronic iron deficiency anemia, and thrombocytopenia. Patient now presents slightly below baseline level of function, and can benefit from skilled services to facilitate return to home setting. Relevant Past Medical History: COPD, BMI >30, HTN, NIDDM c/b retinopathy HOME LIVING Patient Lives With: Spouse (tri-level home) Assistance Available: 24-Hour (spouse is retired but is disabled and unable to lift / assist) Entry To Home: Stairs Number Of Stairs Into Home: 1 (4 curb step) Number Of Stairs To Bed/Bath: 14 Stairs to Bed/Bath with: Unilateral Rail Tub/Shower Type: Tub/shower- spouse assists with lifting LEs into tub, stands to shower Laundry: Spouse completes in basement Equipment Owned: Cane, Walker- Wheeled (riser on toilet with rails, urinal with mirror for urinating, sleeps in recliner) PRIOR FUNCTIONAL LEVEL Required Assistance, History of Falls Assistance Required With: Cleaning, Laundry, Meals, Self Care, Transportation Patient reports that he is ambulatory with SPC in home, FWW in community due to chronic L5 compression fracture causing RLE weakness. Spouse assists with lower body dressing, able to ind dress upper body. Spouse helps with getting in/out o (more content not included)... [facility] THERAPY NT HNO ID: [id number] Author: JACKIE VILLA, APRIL Service: Physical Therapy Author Type: Physical Therapist Type: Therapy (PT/OT/Speech/Resp) Filed: 01/07/2024 08:30 Note Text: Summary: PT discharge recommendations PT Discharge Instructions The PT team at [facility] has this list of discharge instructions specific to your home going needs. Your anticipated discharge date is 01/07/24. Please share these discharge instructions with family as well as any care providers coming to your home to assist with the continuity of your care. Weight Bearing precautions: No excessive bending or lifting to decrease low back pain Precautions: Recommended 01/02 assist from spouse ; be aware of oxygen cord Recommended equipment for home: Wheeled walker, Gait belt, and bariatric cane if you are able to purchase Additional instructions: 01/02 supervision and assist advised ongoing., Stay within the walker at all times, Push up from the arm rests when standing from chair, Reach back for the arm rests when sitting, When using a cane and managing the stairs: Up with the good, bad and the ugly (lead with the strong leg, then the bad leg, then the cane), Have someone beside you when walking, Complete home exercise as instructed., Walk frequently throughout the day. A good rule of thumb is to walk once every hour, and Home PT advised. Thank you for entrusting your care to us. If you have questions regarding PT please contact the PT team at [phone]. Jackie Villa PT Josefina Florez PT Jennifer Parra PT Luis F Jensen DATA ENTRY TECHNICIAN Jai Beckham DATA ENTRY TECHNICIAN [facility] NURSING PROGon 01-06-2024 NURSING PROG HNO ID: [id number] Author: DAISY QUINN, RN Service: Nursing Author Type: Registered Nurse Type: Nursing Progress Note Filed: 01/06/2024 09:20 Note Text: Patient sitting up in bed. All treatments and procedures were explained. Informed patient that he is an early up for OT this morning around 8:45 am. Pt verbalized understanding. Pt states, I took that new antibiotic last night and it upsets my stomach. Pt requesting maybe crackers to take the pill with. No other questions or concerns were voiced at this time. BLE red and slightly warm this morning. Will address with the CHASER APPRENTICE this morning. [facility] SOCIAL WORKon 01-06-2024 SOCIAL WORK HNO ID: [id number] Author: ROSEMARY HARDIN LSW Service: Social Work Author Type: Customer Engagement Manager Type: Social Work Filed: 01/07/2024 12:35 Note Text: Summary: SW rounding/HH/Equipment SOCIAL WORK PROGRESS NOTE Name: Khoa Connors . Per 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, patient is asking for a new cane. Spoke with PT who recommend a RW instead. Patient states RW will not fit through his doorways at home. PT checked with [facility] re a bariatric cane. They only have quad bariatrics. Relayed this to patient. He said he looked on line and [facility] has 2 bariatrics available. Said he will get one on his way home on 01/08. Patient declining [facility] Said he will go to O.P. Therapy after he's off lasix. Signature: ARCHIE Madrigal Date: January 06, 2024 Time: 2:34 PM [facility] THERAPY NTon 01-06-2024 THERAPY NT HNO ID: [id number] Author: JAKCIE VILLA PT Service: Physical Therapy Author Type: Glost Kiln Operator Type: Therapy (PT/OT/Speech/Resp) Filed: 01/06/2024 13:14 Note Text: Attestation signed by Jackie Villa PT at 01/06/2024 1:14 PM I reviewed and agree with the documentation corresponding to this therapy visit. SIGNATURE: Jackie Villa, PT DATE: January 06, 2024 TIME: 1:14 PM Physical Therapy [facility] Facility Treatment Summary SERVICE DATE: 01/06/2024 SERVICE TIME: 1115 to 1157 ROOM: [place] [address] PT 6 Clicks Score: 20 DISCHARGE RECOMMENDATIONS Home PT Recommended Discharge Disposition Comments: Home PT with continued 01/02 supervision from spouse as able. May continue to benefit from outpatient PT once cleared by home health Anticipated Discharge Needs: Physical Assist at Home, Supervision at Home Recommended Discharge Equipment: To Be Determined GOALS Patient will demonstrate progress with functional mobility to allow safe discharge to home with available support and/or physical assistance. Able to Perform HEP with: Independent Transfer Sit to/from Stand with: Supervision Ambulate with: Contact Guard Assistance Distance: 50 Device: Wheeled Walker Ambulate Up and Down Curb Step with: Contact Guard Assistance Device: Wheeled Walker (4) ROM: BLE strength to at least 3+/5 such that patient is able to complete at least 10 minutes of graded therapeutic activity Goal: 10 MWT > 0.5 m/s at [facility] Rehab Potential: Fair Progress Toward Goals: Progressing as expected ASSESSMENT Response to Therapy Interventions: Good Participation in Activities Patient able to perform steps in this session with good tolerance and only requiring verbal cues for technique. Plan for Next Visit: Gait Training, Exercise Instruction/Handout PRECAUTIONS Fall Risk, Lines/Tubes/Drains Mccarthy, 3L O2, LBP due to L2 compression fracture- no excessive BLT (patient states fx is chronic), lymphadema- ALDO wraps to LEs, RLE weakness due to chronic L5 compression fracture, L TKA 09/04 SUBJECTIVE my walker won't fit through my door FUNCTIONAL STATUS Bed Mobility Rolling: Supervision Supine To Sit: Stand By Assistance Sit to Supine: Stand By Assistance Scooting: Stand By Assistance Transfers Sit To Stand: Stand By Assistance Stand To Sit: Stand By Assistance Bed to Chair (patient refuses) Gait Stand By Assistance Gait Device: Wheeled Walker General Deviations/Observation s: Little decreased, Flexed trunk posture, Shuffling Gait, Step length decreased Gait Distance (feet): 100 x 2 Stairs Stand By Assistance Stairs Device: Rail (bilateral) Number of Stairs: 8 Curb Step: Contact Guard Assistance Device: Walker CURRENT HOSPITAL COURSE Patient is a 63 year old male presenting to [facility] s/p hospitalization at [place] for mechanical fall with resultant low back pain, L2 compression fracture, morbid obesity, hypothyroidism, with ICU admit due to respiratory decompression potentially due to GLENN and hypoventilation syndrome requiring 2-3 L O2 at rest, and lymphadema, chronic iron deficiency anemia, and thrombocytopenia. Patient now presents slightly below baseline level of function, and can benefit from skilled services to facilitate return to home setting. Relevant Past Medical History: COPD, BMI >30, HTN, NIDDM c/b retinopathy HOME LIVING Patient Lives With: Spouse (tri-level home) Assistance Available: 24-Hour (spouse is retired but is disabled and unable to lift / assist) Entry To Home: Stairs Number Of Stairs Into Home: 1 (4 curb step) Number Of Stairs To Bed/Bath: 14 Stairs to Bed/Bath with: Unilateral Rail Tub/Shower Type: Tub/shower- spouse assists with lifting LEs into tub, stands to shower Laundry: Spouse completes in basement Equipment Owned: Cane, Walker- Wheeled (riser on toilet with rails, urinal with mirror for urinating, sleeps in recliner) PRIOR FUNCTIONAL LEVEL Required Assistance, History of Falls Assistance Required With: Cleaning, Laundry, Meals, Self Care, Transportation Patient reports that he is ambulatory with SPC in home, FWW in community due to chronic L5 compression fracture causing RLE weakness. Spouse assists with lower body dressing, able to ind dress upper body. Spouse helps with getting in/out of shower and washing back, pt able to bathe self rest of the way. Ind with toileting. (-) Driving, spouse drives patient to appointments. Was at [facility] when he fell (has been doing rehab there after knee surgery 08/25/23 LLE). 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 Spouse completes IADLs. THERAPY DIAGNOSIS Reduced mobility-other, Muscle Weakness (generalized), Abnormalities of gait and mobility-other (more content not included)... [facility] THERAPY NT HNO ID: [id number] Author: VONNIE SOLOMON OTR/L Service: Occupational Therapy Author Type: Occupational Therapist Type: Therapy (PT/OT/Speech/Resp) Filed: 01/06/2024 09:48 Note Text: Summary: OT discharge Occupational Therapy [facility] Facility Treatment Summary SERVICE DATE: 01/06/2024 SERVICE TIME: 834 to 929 ROOM: [place] [address] OT 6 Clicks Score: 19 DISCHARGE RECOMMENDATIONS Discharge Therapy Services Discharged (date): 01/06/24 Discharged To: Home Home Exercise Program Status: Independent Ability To Apply Precautions Upon Discharge: Independent Equipment Issued: Long [facility] Home OT Anticipated Discharge Needs: Physical Assist at Home, Supervision at Home Recommended Discharge Equipment: To Be Determined GOALS ; limited progress towards functional goals at this time d/t pt reporting spouse to assist as needed; pt completing transfers w/ IL -meeting goal. Patient will demonstrate progress with self-care, cognitive and/or coping needs identified to allow safe discharge to home with available support and/or physical assistance. Grooming with: Modified Independent (in standing) Lower Body Bathing with: Contact Guard Assistance Toilet Hygiene with: Modified Independent Toilet Transfer with: Modified Independent Tolerate (minutes of functional activity): 30 Functional Activity with: Stand By Assistance Progress Toward Goals: Progressing as expected Rehab Potential: Fair ASSESSMENT Response to Therapy Interventions: Good Participation in Activities, Multiple Ongoing Medical Issues Pt is being d/c'd from OT at this time - as patient reports having assist from spouse for ADLs/IADLs; pt does not want to use AE at this time. He reports he will sponge bath vs. using tub therefore tub xfer not completed. Pt motivated to do arm exercises but has been educated in HEP and given handouts to follow. Pt at this time has progressed was he is able / willing to progress. Plan for Next Visit: Bed Mobility, Chair/Commode Transfer Training, Dressing Training, Exercise Instruction/Handout, Grooming Training, Sit to Stand Transfers, Standing Balance, Standing Tolerance, Toileting Instruction PRECAUTIONS Fall Risk, Lines/Tubes/Drains Mccarthy, 3L O2, LBP due to L2 compression fracture- no excessive BLT (patient states fx is chronic), lymphadema- ALDO wraps to LEs, RLE weakness due to chronic L5 compression fracture, L TKA 09/04 SUBJECTIVE Pt reports not having any concerns w/ d/c home; pt not receptive to AE use throughout hosp. stay as spouse will assist w/ ADLS as needed and IADLS FUNCTIONAL STATUS Activities of Daily Living Assist Level Additional Information Feeding Independent Grooming Contact Guard Assistance, Additional Information Bathing Upper Body Supervision Bathing Lower Body Moderate Assistance Dressing Upper Body Set Up Dressing Lower Body Minimal Assistance, Additional Information Toileting Minimal Assistance, Additional Information Instrumental Activities of Daily Living Assist Level Additional Information Meal/Beverage Prep Total Assistance Cleaning Total Assistance Laundry Total Assistance Medication Management with Strategies Mobility Assist Level Additional Information Bed Mobility Supine To Sit: Contact Guard Assistance, Additional Information Sit To Supine: Minimal Assistance, Additional Information Sit to Stand Modified Independent Stand to Sit Modified Independent Bed to Chair Supervision Bed To Chair Transfer Type: Stepping Bed To Chair Transfer Equipment: Wheeled Walker, Gait Belt Toilet/Commode Supervision d/t discomfort/set up of commode Shower (offered to demonstrate use of extended tub bench to improve ease of tub/shower transfers, but pt declined as he is not interested in this adaptation.) Functional Mobility Stand By Assistance Functional Mobility Device: Wheeled Walker SBA amb. in room to therapy gym CURRENT HOSPITAL COURSE Patient is a 63 year old male presenting to [facility] s/p hospitalization at [place] for mechanical fall with resultant low back pain, L2 compression fracture, morbid obesity, hypothyroidism, with ICU admit due to respiratory decompression potentially due to GLENN and hypoventilation syndrome requiring 2-3 L O2 at rest, and lymphadema, chronic iron deficiency anemia, and thrombocytopenia. Patient now presents slightly below baseline level of function, and can benefit from skilled services to facilitate return to home setting. Relevant Past Medical History: COPD, BMI >30, HTN, NIDDM c/b retinopathy HOME LIVING Patient Lives With: Spouse (tri-level home) Assistance Available: 24-Hour (spouse is retired but is disabled and unable to lift / assist) Entry To Home: Stairs Number Of Stairs Into Home: 1 (4 curb step) (more content not included)... [facility] THERAPY NT HNO ID: [id number] Author: VONNIE SOLOMON OTR/[place] Service: Occupational Therapy Author Type: Occupational Therapist Type: Therapy (PT/OT/Speech/Resp) Filed: 01/06/2024 07:45 Note Text: Summary: OT discharge recommendations OT Discharge Instructions The OT team at [facility] has this list of discharge instructions specific to your home going needs. Your anticipated discharge date is 01/06/24 from Occupational therapy. Please share these discharge instructions with family as well as any care providers coming to your home to assist with the continuity of your care. Weight Bearing precautions: No excessive lifting to avoid increased back pain Precautions: Spinal: No bending, no lifting, no twisting; Oxygen cord management; Recommended equipment for home: ADL kit recommended if spouse unable to assist (lens and frames prescription clerk, sock aid, dressing stick), extended tub bench; Additional instructions: 24 hour assistance is recommended, Complete lower body bathing and dressing using adaptive equipment, Do not attempt to get in/out of the tub until instructed by home therapist, Have assist with meals, housework and laundry, and Continue to complete upper body exercises for strengthening Thank you for entrusting your care to us. If you have questions regarding OT please contact the OT team at [phone]. Angelic Valadez OT Vonnie Solomon OT Mohan Cha OT Lili Chaudhari OT Lana Borrero MENDOZA [facility] NURSING PROGon 01-05-2024 NURSING PROG HNO ID: [id number] Author: DAISY QUINN RN Service: Nursing Author Type: Registered Nurse Type: Nursing Progress Note Filed: 01/05/2024 09:02 Note Text: Patient sitting up in bed. All treatments and procedures were explained. Patient verbalized understanding. Meds were reviewed with patient. Pt verbalized understanding. Patient states, I am not taking any other meds. States, I didn't come her for a workup. States, My doctor is happy with my blood pressure, my heart is good so I am not taking any other meds. Nurse had to identify each pill that patient took this morning. No other questions or concerns were voiced at this time. [facility] THERAPY NTon 01-05-2024 THERAPY NT HNO ID: [id number] Author: ANGELIC VALADEZ, OTR/L Service: Occupational Therapy Author Type: Occupational Therapist Type: Therapy (PT/OT/Speech/Resp) Filed: 01/05/2024 12:24 Note Text: Occupational Therapy [facility] Facility Treatment Summary SERVICE DATE: 01/05/2024 SERVICE TIME: 1058 to 1149 ROOM: [place] [address] OT 6 Clicks Score: 19 DISCHARGE RECOMMENDATIONS Home OT Anticipated Discharge Needs: Physical Assist at Home, Supervision at Home Recommended Discharge Equipment: To Be Determined GOALS Patient will demonstrate progress with self-care, cognitive and/or coping needs identified to allow safe discharge to home with available support and/or physical assistance. Grooming with: Modified Independent (in standing) Lower Body Bathing with: Contact Guard Assistance Toilet Hygiene with: Modified Independent Toilet Transfer with: Modified Independent Tolerate (minutes of functional activity): 30 Functional Activity with: Stand By Assistance Progress Toward Goals: Progressing as expected Rehab Potential: Fair ASSESSMENT Response to Therapy Interventions: Good Participation in Activities This therapist had lengthy discussion re: discharge needs, home set up, type/amount of assistance available, and adapted techniques/equipment to increase pt's level of independence upon discharge. Pt was not receptive to any suggesions/recommendat ions this therapist had to offer including practice with extended tub bench, shower chair, adaptive equipment for lower body ADLs, and also was not interested in having a chair to sit in while in his hospital room. Offered to explore possibility of moving pt to a different room that would better simulate his toilet set up at home (pt reports frame over toilet is very uncomfortable) but pt stated he does not want to change his room. When asked what pt feels he needs to work on in order for a successful discharge home, pt stated arm exercises. Pt may be ready for discharge home soon with home healthto follow due to pt not receptive to in-hospital OT treatment interventions other than exercise. Will discuss further with rehab team; pt also may need a care conference prior to discharge home to address concerns of spouse. Plan for Next Visit: Bed Mobility, Chair/Commode Transfer Training, Dressing Training, Exercise Instruction/Handout, Grooming Training, Sit to Stand Transfers, Standing Balance, Standing Tolerance, Toileting Instruction PRECAUTIONS Fall Risk, Lines/Tubes/Drains Mccarthy, 3L O2, LBP due to L2 compression fracture- no excessive BLT (patient states fx is chronic), lymphadema- ALDO wraps to LEs, RLE weakness due to chronic L5 compression fracture, L TKA 09/04 SUBJECTIVE Pt stated he is not interested in using any adaptive seating in tub/shower or in future shower stall; also stated he is not interested in using any adaptive equipment for lower body ADL tasks as his spouse will assist with this upon discharge FUNCTIONAL STATUS Activities of Daily Living Assist Level Additional Information Feeding Independent Grooming Contact Guard Assistance, Additional Information Bathing Upper Body Supervision Bathing Lower Body Moderate Assistance Dressing Upper Body Set Up Dressing Lower Body Minimal Assistance, Additional Information Toileting Minimal Assistance, Additional Information Instrumental Activities of Daily Living Assist Level Additional Information Meal/Beverage Prep Total Assistance Cleaning Total Assistance Laundry Total Assistance Medication Management with Strategies Mobility Assist Level Additional Information Bed Mobility Supine To Sit: Contact Guard Assistance, Additional Information Sit To Supine: Minimal Assistance, Additional Information Sit to Stand Stand By Assistance Stand to Sit Stand By Assistance Bed to Chair Stand By Assistance (pt does not wish to have a chair in room; SBA for in-room mobility) Bed To Chair Transfer Type: Stepping Bed To Chair Transfer Equipment: Wheeled Walker, Gait Belt Toilet/Commode Contact Guard Assistance Shower (offered to demonstrate use of extended tub bench to improve ease of tub/shower transfers, but pt declined as he is not interested in this adaptation.) Functional Mobility Stand By Assistance, Additional Information Functional Mobility Device: Wheeled Walker SBA in room; SBA with occasional CGA when ambulating in hallway CURRENT HOSPITAL COURSE Patient is a 63 year old male presenting to [facility] s/p hospitalization at [place] for mechanical fall with resultant low back pain, L2 compression fracture, morbid obesity, hypothyroidism, with ICU admit due to respiratory decompression potentially due to GLENN and hypoventilation syndrome requiring 2-3 L O2 at rest, and lymphadema, chronic iron deficiency anemia, and thrombocytopenia. Patient now presents slightly below baseline level of function, and can benefit from skilled services to facilitate r (more content not included)... Normal [facility] THERAPY NT HNO ID: [id number] Author: JACKIE VILLA PT Service: Physical Therapy Author Type: Glost Kiln Operator Type: Therapy (PT/OT/Speech/Resp) Filed: 01/05/2024 13:54 Note Text: Attestation signed by Jackie Villa PT at 01/05/2024 1:54 PM I reviewed and agree with the documentation corresponding to this therapy visit. SIGNATURE: Jackie Villa PT DATE: January 05, 2024 TIME: 1:54 PM Physical Therapy [facility] Facility Treatment Summary SERVICE DATE: 01/05/2024 SERVICE TIME: 945 ROOM: [place] [address] PT 6 Clicks Score: 20 DISCHARGE RECOMMENDATIONS Home PT Recommended Discharge Disposition Comments: Home PT with continued 01/02 supervision from spouse as able. May continue to benefit from outpatient PT once cleared by home health Anticipated Discharge Needs: Physical Assist at Home, Supervision at Home Recommended Discharge Equipment: To Be Determined GOALS Patient will demonstrate progress with functional mobility to allow safe discharge to home with available support and/or physical assistance. Able to Perform HEP with: Independent Transfer Sit to/from Stand with: Supervision Ambulate with: Contact Guard Assistance Distance: 50 Device: Wheeled Walker Ambulate Up and Down Curb Step with: Contact Guard Assistance Device: Wheeled Walker (4) ROM: BLE strength to at least 3+/5 such that patient is able to complete at least 10 minutes of graded therapeutic activity Goal: 10 MWT > 0.5 m/s at [facility] Rehab Potential: Fair Progress Toward Goals: Progressing as expected ASSESSMENT Response to Therapy Interventions: Good Participation in Activities Patient agreable to participate in this session however he is lmited due to knee stiffness when ambulating or perfoming any exercises. Plan for Next Visit: Gait Training, Exercise Instruction/Handout PRECAUTIONS Fall Risk, Lines/Tubes/Drains Mccarthy, 3L O2, LBP due to L2 compression fracture- no excessive BLT (patient states fx is chronic), lymphadema- ALDO wraps to LEs, RLE weakness due to chronic L5 compression fracture, L TKA 09/04 SUBJECTIVE my knee is just stiff FUNCTIONAL STATUS Bed Mobility Rolling: Supervision Supine To Sit: Stand By Assistance Sit to Supine: Contact Guard Assistance Scooting: Stand By Assistance Transfers Sit To Stand: Contact Guard Assistance Stand To Sit: Contact Guard Assistance Bed to Chair (patient refuses) Gait Stand By Assistance Gait Device: Wheeled Walker General Deviations/Observation s: Little decreased, Flexed trunk posture, Shuffling Gait, Step length decreased Gait Distance (feet): 90 x 2 Stairs (unsafe to perform due to low O2 during ambulation) Curb Step: Contact Guard Assistance Device: Walker CURRENT HOSPITAL COURSE Patient is a 63 year old male presenting to [facility] s/p hospitalization at [place] for mechanical fall with resultant low back pain, L2 compression fracture, morbid obesity, hypothyroidism, with ICU admit due to respiratory decompression potentially due to GLENN and hypoventilation syndrome requiring 2-3 L O2 at rest, and lymphadema, chronic iron deficiency anemia, and thrombocytopenia. Patient now presents slightly below baseline level of function, and can benefit from skilled services to facilitate return to home setting. Relevant Past Medical History: COPD, BMI >30, HTN, NIDDM c/b retinopathy HOME LIVING Patient Lives With: Spouse (tri-level home) Assistance Available: 24-Hour (spouse is retired but is disabled and unable to lift / assist) Entry To Home: Stairs Number Of Stairs Into Home: 1 (4 curb step) Number Of Stairs To Bed/Bath: 14 Stairs to Bed/Bath with: Unilateral Rail Tub/Shower Type: Tub/shower- spouse assists with lifting LEs into tub, stands to shower Laundry: Spouse completes in basement Equipment Owned: Cane, Walker- Wheeled (riser on toilet with rails, urinal with mirror for urinating, sleeps in recliner) PRIOR FUNCTIONAL LEVEL Required Assistance, History of Falls Assistance Required With: Cleaning, Laundry, Meals, Self Care, Transportation Patient reports that he is ambulatory with SPC in home, FWW in community due to chronic L5 compression fracture causing RLE weakness. Spouse assists with lower body dressing, able to ind dress upper body. Spouse helps with getting in/out of shower and washing back, pt able to bathe self rest of the way. Ind with toileting. (-) Driving, spouse drives patient to appointments. Was at [facility] when he fell (has been doing rehab there after knee surgery 08/25/23 LLE). 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 Spouse completes IADLs. THERAPY DIAGNOSIS Reduced mobility-other, Muscle Weakness (generalized), Abnormalities of gait and mobility-other (more content not included)... Normal [facility] CBC panel Auto (Bld)on 01-03 Erythrocyte distribution width (RBC) [Ratio] 20.1 % High 11.5-15.0 [facility] Comment on above: Order Comment: Speci men Type: BLOOD SPECIMENOrdering Facility: [facility] Address: [address] [place] [address] Performed By: #### 5 8410-2 ####[facility] LABCLIA [id number] [place] [address] [place]#### 39299-5 ####[facility] LABCLIA [id number] [place] [address] [place] Hematocrit (Bld) [Volume fraction] 28.8 % Low 39.0-51.0 [facility] Comment on above: Order Comment: Speci men Type: BLOOD SPECIMENOrdering Facility: [facility] Address: [address] [place] [address] Performed By: #### 5 8410-2 ####[facility] LABCLIA [id number] [place] [address] [place]#### 84532-1 ####[facility] LABCLIA [id number] [place] [address] [place] Hemoglobin (Bld) [Mass/Vol] 8.0 g/dL Low 13.0-17.0 [facility] Comment on above: Order Comment: Speci men Type: BLOOD SPECIMENOrdering Facility: [facility] Address: [address] [place] [address] Performed By: #### 5 8410-2 ####[facility] LABCLIA [id number] [address] [place]#### 30894-5 ####[facility] LABCLIA [id number] [place] [address] [place] MCH (RBC) [Entitic mass] 29.6 pg Normal 26.0-34.0 [facility] Comment on above: Order Comment: Speci men Type: BLOOD SPECIMENOrdering Facility: [facility] Address: [address] [place] [address] Performed By: #### 5 8410-2 ####[facility] LABCLIA [id number] [place] [address] [place]#### 96959-5 ####[facility] LABCLIA [id number] [place] [address] [place] MCHC (RBC) [Mass/Vol] 27.8 g/dL Low 30.5-36.0 [facility] Comment on above: Order Comment: Speci men Type: BLOOD SPECIMENOrdering Facility: [facility] Address: [address] [place] [address] Performed By: #### 5 8410-2 ####[facility] LABCLIA [id number] [address] [place]#### 56050-3 ####[facility] LABCLIA [id number] [address] [place] MCV (RBC) [Entitic vol] 106.7 fL High 80.0-100.0 [facility] Comment on above: Order Comment: Speci men Type: BLOOD SPECIMENOrdering Facility: [facility] Address: [address] [place] [address] Performed By: #### 5 8410-2 ####[facility] LABCLIA [id number] [address]#### 45943-0 ####[facility] LABCLIA [id number] [address] [place] Platelet mean volume (Bld) [Entitic vol] 12.4 fL Normal 9.0-12.7 [facility] Comment on above: Order Comment: Speci men Type: BLOOD SPECIMENOrdering Facility: [facility] Address: [address] [place] [address] Performed By: #### 5 8410-2 ####[facility] LABCLIA [id number] [place] [address] [place]#### 02368-3 ####[facility] LABCLIA [id number] [place] [address] [place] Platelets (Bld) [#/Vol] 118 10*3/uL Low 150-400 [facility] Comment on above: Order Comment: Speci men Type: BLOOD SPECIMENOrdering Facility: [facility] Address: [address] [place] [address] Performed By: #### 5 8410-2 ####[facility] LABCLIA [id number] [place] [address] [place]#### 58628-1 ####[facility] LABCLIA [id number] [place] [address] [place] RBC (Bld) [#/Vol] 2.70 10*6/uL Low 4.20-6.00 [facility] Comment on above: Order Comment: Speci men Type: BLOOD SPECIMENOrdering Facility: [facility] Address: [address] [place] [address] Performed By: #### 5 8410-2 ####[facility] LABCLIA [id number] [place] [address] [place]#### 94083-5 ####[facility] LABCLIA [id number] [place] [address] [place] WBC (Bld) [#/Vol] 2.51 10*3/uL Low 3.70-11.00 [facility] Comment on above: Order Comment: Speci men Type: BLOOD SPECIMENOrdering Facility: [facility] Address: [address] [place] [address] Performed By: #### 5 8410-2 ####[facility] LABCLIA [id number] [place] [address] [place]#### 81629-4 ####[facility] LABCLIA [id number] [place] [address] [place] HbA1c (Bld)on 01-04-2024 Average glucose Estimated from glycated hemoglobin (Bld) [Mass/Vol] 108 mg/dL Normal [facility] Comment on above: Order Comment: Speci men Type: BLOOD SPECIMENOrdering Facility: [facility] Address: [address] [place] [address] Result Comment: eAG: (Estimated average glucose) is a calculated value from HgbA1c and is pharmaceutical specialty representative of the average blood glucose level in the last 2-3 month period. Performed By: #### 5 8410-2 ####[facility] LABCLIA [id number] [address]#### 38845-9 ####[facility] LABCLIA [id number] [address] [place] [facility] HbA1c (Bld) [Mass fraction] 5.4 % Normal 4.3-5.6 [facility] Comment on above: Order Comment: Speci men Type: BLOOD SPECIMENOrdering Facility: [facility] Address: [address] [place] [address] Result Comment: Amer ican Diabetes Association guidelines indicate that patients with HgbA1c in the range 5.7-6.4% are at increased risk for development of diabetes, and intervention by lifestyle modification may be beneficial. HgbA1c greater or equal to 6.5% is considered diagnostic of diabetes. Performed By: #### 5 8410-2 ####[facility] LABCLIA [id number] [address] [place]#### 78763-2 ####[facility] LABCLIA [id number] [place] [id number] [place] SOCIAL WORKon 01-04-2024 SOCIAL WORK HNO ID: [id number] Author: ROSEMARY HARDIN LSW Service: Social Work Author Type: Customer Engagement Manager Type: Social Work Filed: 01/06/2024 11:48 Note Text: Summary: Team Rounds MULTIDISCIPLINARY ROUNDS SERVICE DATE: 01/05/2024 ADMISSION DATE: 12/31/2023 SERVICE TIME: 12:30 PM ANTICIPATED D/C DATE: 01/08 (NRD 01/05) Problem List: ACTIVE PROBLEM LIST Unspecified Venous (Peripheral) Insufficiency Type 2 Diabetes Mellitus, Without Long-Term Current Use of Insulin (Hcc) Weakness of Right Lower Extremity Essential Hypertension Arthritis of Right Glenohumeral Joint Chronic Peripheral Venous Hypertension Compression Fracture of Thoracic Vertebra (Hcc) Contusion of Knee Foot Drop Knee Pain Traumatic Rotator Cuff Tear Lipodermatosclerosis Acute Respiratory Failure With Hypoxia (Hcc) After-Cataract of Left Eye With Vision Obscured Aftercare Iron Deficiency Anemia Morbid Obesity With Bmi of 40.0-44.9, Adult (Hcc) Compression Fracture of L2 Vertebra With Routine Healing Bilateral Lower Extremity Edema Lymphedema Urinary Retention Uti (Urinary Tract Infection) Hypothyroidism Attendees Present at Rounds: CM, 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, NM, OT, PT, R.D, SW Needs Discussed on Rounds: Discharge Needs Mobility Psycho/Social Plan of Care Anticipated Discharge Disposition: Home with Home Health Last Vitals: BP 148/78 Pulse 82 Temp (Src) 98.6 (Oral) Resp 16 Ht 6' 5 (1.96m) Wt 371 lb 4.1 oz (168.4kg) SpO2 90% BMI 44.02 kg/(m2). O2 Therapy: Room Air, Liters: 1 SW: declined conference. RN KENYA updated her on labs, etc. aware of NRD and possible DC 6/30. PT: Recommend HHC prior to Outpatient PT OT: Not open to suggestions for equipment. Just wants arm exercises. Expects to help at home. Nursing: DOCUMENTED BY: ARCHIE Madrigal PATIENT NAME: Khoa Connors Jr. DATE: January 04, 2024 TIME: 2:50 PM CSN: [id number] Normal [facility] THERAPY NTon 01-04-2024 THERAPY NT HNO ID: [id number] Author: JACKIE VILLA PT Service: Physical Therapy Author Type: Glost Kiln Operator Type: Therapy (PT/OT/Speech/Resp) Filed: 01/05/2024 13:54 Note Text: Attestation signed by Jackie Villa PT at 01/05/2024 1:54 PM I reviewed and agree with the documentation corresponding to this therapy visit. SIGNATURE: Jackie Villa PT DATE: January 05, 2024 TIME: 1:54 PM Physical Therapy [facility] Facility Treatment Summary SERVICE DATE: 01/04/2024 SERVICE TIME: 1422 to 1509 ROOM: [place] [address] PT 6 Clicks Score: 20 DISCHARGE RECOMMENDATIONS Home PT Recommended Discharge Disposition Comments: Home PT with continued 24/7 supervision from spouse as able. May continue to benefit from outpatient PT once cleared by home health Anticipated Discharge Needs: Physical Assist at Home, Supervision at Home Recommended Discharge Equipment: To Be Determined GOALS Patient will demonstrate progress with functional mobility to allow safe discharge to home with available support and/or physical assistance. Able to Perform HEP with: Independent Transfer Sit to/from Stand with: Supervision Ambulate with: Contact Guard Assistance Distance: 50 Device: Wheeled Walker Ambulate Up and Down Curb Step with: Contact Guard Assistance Device: Wheeled Walker (4) ROM: BLE strength to at least 3+/5 such that patient is able to complete at least 10 minutes of graded therapeutic activity Goal: 10 MWT > 0.5 m/s at [facility] Rehab Potential: Fair Progress Toward Goals: Progressing as expected ASSESSMENT Response to Therapy Interventions: Good Participation in Activities Patient trials ambulation without oxygen this session and desats to 87% per respiratory therapy patient shoukd be placed back on 2L of O2. When patient returns to bed on RA patient returns to 92%. Nursing notified of patients status at conclusion of session. Plan for Next Visit: Gait Training, Exercise Instruction/Handout PRECAUTIONS Fall Risk, Lines/Tubes/Drains Mccarthy, 3L O2, LBP due to L2 compression fracture- no excessive BLT (patient states fx is chronic), lymphadema- ALDO wraps to LEs, RLE weakness due to chronic L5 compression fracture, L TKA 09/04 SUBJECTIVE they are trying to get me off the oxygen FUNCTIONAL STATUS Bed Mobility Rolling: Supervision Supine To Sit: Stand By Assistance Sit to Supine: Contact Guard Assistance Scooting: Stand By Assistance Transfers Sit To Stand: Contact Guard Assistance Stand To Sit: Contact Guard Assistance Bed to Chair (patient refuses) Gait Contact Guard Assistance Gait Device: Wheeled Walker General Deviations/Observation s: Little decreased, Flexed trunk posture, Shuffling Gait, Step length decreased Gait Distance (feet): 90 x 2 Stairs (unsafe to perform due to low O2 during ambulation) Curb Step: Contact Guard Assistance Device: Walker CURRENT HOSPITAL COURSE Patient is a 63 year old male presenting to [facility] s/p hospitalization at [place] for mechanical fall with resultant low back pain, L2 compression fracture, morbid obesity, hypothyroidism, with ICU admit due to respiratory decompression potentially due to GLENN and hypoventilation syndrome requiring 2-3 L O2 at rest, and lymphadema, chronic iron deficiency anemia, and thrombocytopenia. Patient now presents slightly below baseline level of function, and can benefit from skilled services to facilitate return to home setting. Relevant Past Medical History: COPD, BMI >30, HTN, NIDDM c/b retinopathy HOME LIVING Patient Lives With: Spouse (tri-level home) Assistance Available: 24-Hour (spouse is retired but is disabled and unable to lift / assist) Entry To Home: Stairs Number Of Stairs Into Home: 1 (4 curb step) Number Of Stairs To Bed/Bath: 14 Stairs to Bed/Bath with: Unilateral Rail Tub/Shower Type: Tub/shower- spouse assists with lifting LEs into tub, stands to shower Laundry: Spouse completes in basement Equipment Owned: Cane, Walker- Wheeled (riser on toilet with rails, urinal with mirror for urinating, sleeps in recliner) PRIOR FUNCTIONAL LEVEL Required Assistance, History of Falls Assistance Required With: Cleaning, Laundry, Meals, Self Care, Transportation Patient reports that he is ambulatory with SPC in home, FWW in community due to chronic L5 compression fracture causing RLE weakness. Spouse assists with lower body dressing, able to ind dress upper body. Spouse helps with getting in/out of shower and washing back, pt able to bathe self rest of the way. Ind with toileting. (-) Driving, spouse drives patient to appointments. Was at [facility] when he fell (has been doing rehab there after knee surgery 08/25/23 LLE). 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 Normal [facility] THERAPY NT HNO ID: [id number] Author: ANGELIC VALADEZ OTR/L Service: Occupational Therapy Author Type: Interventional Radiology Tech Type: Therapy (PT/OT/Speech/Resp) Filed: 01/04/2024 12:40 Note Text: Attestation signed by Angelic Valadez OTR/L at 01/04/2024 12:40 PM I reviewed and agree with the documentation corresponding to this therapy visit. SIGNATURE: ANAT Batista DATE: January 04, 2024 TIME: 12:40 PM Occupational Therapy [facility] Facility Treatment Summary SERVICE DATE: 01/04/2024 SERVICE TIME: 1115 to 1206 ROOM: [place] [address] OT 6 Clicks Score: 19 DISCHARGE RECOMMENDATIONS Home OT Anticipated Discharge Needs: Physical Assist at Home, Supervision at Home Recommended Discharge Equipment: To Be Determined GOALS Patient will demonstrate progress with self-care, cognitive and/or coping needs identified to allow safe discharge to home with available support and/or physical assistance. Grooming with: Modified Independent (in standing) Lower Body Bathing with: Contact Guard Assistance Toilet Hygiene with: Modified Independent Toilet Transfer with: Modified Independent Tolerate (minutes of functional activity): 30 Functional Activity with: Stand By Assistance Progress Toward Goals: Progressing as expected Rehab Potential: Fair ASSESSMENT Response to Therapy Interventions: Good Participation in Activities, Improved Tolerance for Activity Pt completing LB dressing with assist for threading BLEs. Pt introduced to AE use for this purpose but stating his will do this for him. Plan for Next Visit: Bathing Training, Bed Mobility, Chair/Commode Transfer Training, Dressing Training, Grooming Training, Sit to Stand Transfers, Standing Balance, Standing Tolerance, Shower/Tub Transfer Training, Toileting Instruction PRECAUTIONS Fall Risk, Lines/Tubes/Drains Mccarthy, 3L O2, LBP due to L2 compression fracture- no excessive BLT (patient states fx is chronic), lymphadema- ALDO wraps to LEs, RLE weakness due to chronic L5 compression fracture, L TKA 09/04 SUBJECTIVE Pt demo'ing push back to most ADL participation. Pt provided with much education and encouragement but amenable only to LB dressing tasks. FUNCTIONAL STATUS Activities of Daily Living Assist Level Additional Information Feeding Independent Grooming Contact Guard Assistance, Additional Information Bathing Upper Body Supervision Bathing Lower Body Moderate Assistance Dressing Upper Body Set Up Dressing Lower Body Minimal Assistance, Additional Information Introduced to AE (soft sock aide, dressing stick, LHR) for donning/doffing socks, pants, briefs. Toileting Minimal Assistance, Additional Information standing to urinate. Instrumental Activities of Daily Living Assist Level Additional Information Meal/Beverage Prep Total Assistance Cleaning Total Assistance Laundry Total Assistance Medication Management with Strategies Mobility Assist Level Additional Information Bed Mobility Supine To Sit: Contact Guard Assistance, Additional Information Sit To Supine: Minimal Assistance, Additional Information Sit to Stand Stand By Assistance Stand to Sit Stand By Assistance Bed to Chair Toilet/Commode Contact Guard Assistance Shower Functional Mobility Stand By Assistance Functional Mobility Device: Wheeled Walker CURRENT HOSPITAL COURSE Patient is a 63 year old male presenting to [facility] s/p hospitalization at [place] for mechanical fall with resultant low back pain, L2 compression fracture, morbid obesity, hypothyroidism, with ICU admit due to respiratory decompression potentially due to GLENN and hypoventilation syndrome requiring 2-3 L O2 at rest, and lymphadema, chronic iron deficiency anemia, and thrombocytopenia. Patient now presents slightly below baseline level of function, and can benefit from skilled services to facilitate return to home setting. Relevant Past Medical History: COPD, BMI >30, HTN, NIDDM c/b retinopathy HOME LIVING Patient Lives With: Spouse (tri-level home) Assistance Available: 24-Hour (spouse is retired but is disabled and unable to lift / assist) Entry To Home: Stairs Number Of Stairs Into Home: 1 (4 curb step) Number Of Stairs To Bed/Bath: 14 Stairs to Bed/Bath with: Unilateral Rail Tub/Shower Type: Tub/shower- spouse assists with lifting LEs into tub, stands to shower Laundry: Spouse completes in basement Equipment Owned: Cane, Walker- Wheeled (riser on toilet with rails, urinal with mirror for urinating, sleeps in recliner) PRIOR FUNCTIONAL LEVEL Required Assistance, History of Falls Assistance Required With: Cleaning, Laundry, Meals, Self Care, Transportation Patient reports that he is ambulatory with SPC in home, FWW in community due to chronic L5 compression fracture causing RLE (more content not included)... [facility] THERAPY NT HNO ID: [id number] Author: JACKIE VILLA, PT Service: Physical Therapy Author Type: Glost Kiln Operator Type: Therapy (PT/OT/Speech/Resp) Filed: 01/04/2024 12:31 Note Text: Attestation signed by Jackie Villa, PT at 01/04/2024 12:31 PM I reviewed and agree with the documentation corresponding to this therapy visit. SIGNATURE: Jackie Villa, PT DATE: January 04, 2024 TIME: 12:31 PM Physical Therapy [facility] Facility Treatment Summary SERVICE DATE: 01/04/2024 SERVICE TIME: 1004 to 1100 ROOM: [place] [address] PT 6 Clicks Score: 20 DISCHARGE RECOMMENDATIONS Home PT Recommended Discharge Disposition Comments: Home PT with continued 01/02 supervision from spouse as able. May continue to benefit from outpatient PT once cleared by home health Anticipated Discharge Needs: Physical Assist at Home, Supervision at Home Recommended Discharge Equipment: To Be Determined GOALS Patient will demonstrate progress with functional mobility to allow safe discharge to home with available support and/or physical assistance. Able to Perform HEP with: Independent Transfer Sit to/from Stand with: Supervision Ambulate with: Contact Guard Assistance Distance: 50 Device: Wheeled Walker Ambulate Up and Down Curb Step with: Contact Guard Assistance Device: Wheeled Walker (4) ROM: BLE strength to at least 3+/5 such that patient is able to complete at least 10 minutes of graded therapeutic activity Goal: 10 MWT > 0.5 m/s at [facility] Rehab Potential: Fair Progress Toward Goals: Progressing as expected ASSESSMENT Response to Therapy Interventions: Good Participation in Activities, Improved Tolerance for Activity Patient able to tolerate seated exercises with resistance this session however requires some rest breaks due to left knee pain when performing some of the exercises. Plan for Next Visit: Gait Training, Exercise Instruction/Handout, Sit to Stand Transfers PRECAUTIONS Fall Risk, Lines/Tubes/Drains Mccarthy, 3L O2, LBP due to L2 compression fracture- no excessive BLT (patient states fx is chronic), lymphadema- ALDO wraps to LEs, RLE weakness due to chronic L5 compression fracture, L TKA 09/04 SUBJECTIVE what do you want me to do FUNCTIONAL STATUS Bed Mobility Rolling: Supervision Supine To Sit: Stand By Assistance Sit to Supine: Minimal Assistance (assist for L LE, able to lift R LE without assist into bed) Scooting: Stand By Assistance Transfers Sit To Stand: Contact Guard Assistance Stand To Sit: Contact Guard Assistance Bed to Chair (patient refuses) Gait Contact Guard Assistance Gait Device: Wheeled Walker General Deviations/Observation s: Little decreased, Flexed trunk posture, Shuffling Gait, Step length decreased Gait Distance (feet): 75 x 2 Stairs (unsafe to perform due to low O2 during ambulation) Curb Step: Contact Guard Assistance Device: Walker CURRENT HOSPITAL COURSE Patient is a 63 year old male presenting to [facility] s/p hospitalization at [place] for mechanical fall with resultant low back pain, L2 compression fracture, morbid obesity, hypothyroidism, with ICU admit due to respiratory decompression potentially due to GLENN and hypoventilation syndrome requiring 2-3 L O2 at rest, and lymphadema, chronic iron deficiency anemia, and thrombocytopenia. Patient now presents slightly below baseline level of function, and can benefit from skilled services to facilitate return to home setting. Relevant Past Medical History: COPD, BMI >30, HTN, NIDDM c/b retinopathy HOME LIVING Patient Lives With: Spouse (tri-level home) Assistance Available: 24-Hour (spouse is retired but is disabled and unable to lift / assist) Entry To Home: Stairs Number Of Stairs Into Home: 1 (4 curb step) Number Of Stairs To Bed/Bath: 14 Stairs to Bed/Bath with: Unilateral Rail Tub/Shower Type: Tub/shower- spouse assists with lifting LEs into tub, stands to shower Laundry: Spouse completes in basement Equipment Owned: Cane, Walker- Wheeled (riser on toilet with rails, urinal with mirror for urinating, sleeps in recliner) PRIOR FUNCTIONAL LEVEL Required Assistance, History of Falls Assistance Required With: Cleaning, Laundry, Meals, Self Care, Transportation Patient reports that he is ambulatory with SPC in home, FWW in community due to chronic L5 compression fracture causing RLE weakness. Spouse assists with lower body dressing, able to ind dress upper body. Spouse helps with getting in/out of shower and washing back, pt able to bathe self rest of the way. Ind with toileting. (-) Driving, spouse drives patient to appointments. Was at [facility] when he fell (has been doing rehab there after knee surgery 08/25/23 LLE). 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 Not pre (more content not included)... [facility] NURSING PROGon 01-03-2024 NURSING PROG HNO ID: [id number] Author: SHEMAR STEVEN LPN Service: Nursing Author Type: LICENSED NURSE Type: Nursing Progress Note Filed: 01/03/2024 18:38 Note Text: O2 sat with exertion dropped to 86% on 1.5 liter o2 via NC, O2 increased to 2 liters, recovered to 95% immediately. [facility] NURSING PROG HNO ID: [id number] Author: SHEMAR STEVEN LPN Service: Nursing Author Type: LICENSED NURSE Type: Nursing Progress Note Filed: 01/03/2024 16:18 Note Text: New orders received and patient educated on plan of care. Exhibits anxiety regarding removal of mccarthy and how staff will deal with toileting needs. Procedure explained, reassurance provided, urinal in reach for use when catheter removed. O2 wean initiated and explained to patient. [facility] NUTRITIONon 01-03-2024 NUTRITION HNO ID: [id number] Author: TAYE MEIER RD Service: Nutrition Therapy Author Type: Registered Dietitian Type: Nutrition Filed: 01/03/2024 11:17 Note Text: NUTRITION THERAPY INITIAL ASSESSMENT SERVICE DATE: 01/03/2024 SERVICE TIME: 11:00 AM Nutrition Assessment: Recommended Malnutrition Diagnosis: No Malnutrition Identified Nutrition Diagnosis: PES Statement: No diagnosis at this time Care Plan: Continue current diet Monitor and Evaluation: Meet greater than 75% of estimated needs, Monitor fluid/electrolyte balance, Monitor labs, I/Os, vital signs, weight Discharge Recommendations: Diet Diet: reg HPI: 63 y/o male w/ PMHx below here for Aftercare [Z51.89] PAST MEDICAL HISTORY Diagnosis Date Nerve compression right leg numb Nerve damage Retinal detachment OS 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, without long-term current use of insulin (HCC) Physical debility Fall L2 Compression Fracture Acute respiratory failure Iron deficiency anemia Morbid obesity with BMI of 40.0-44.9, adult Bilateral lower extremity edema Lymphedema Hypothyroidism 12/31/23 : (!) 168.4 kg (371 lb 4.1 oz) 07/02/23 : (!) 160.1 kg (353 lb) Intake History: Nutrition Intake Prior to Admission: Greater than 75% estimated energy needs greater than or equal to 3 months Current Nutrition Intake: Greater than 75% estimated energy needs Current Intake Over time: (2 meals cahrted) Dosing Weight: 89 kg (196 lb 3.4 oz) Dosing Weight Type: [place] body weight Estimated kilocalorie needs: 9450-1117 Calorie Calculation Method: 20-25 kcals/kg Estimated protein needs (grams): 90-107 Grams protein determined by: 1.0 - 1.2 g/kg Diet Orders (From admission, onward) Start Ordered 12/31/232229 DIET REGULAR START NOW 12/31/232228 Anthropometrics: Height: 195.6 cm (6' 5) Weight: (!) 168.4 kg (371 lb 4.1 oz) Usual Weight: 160 kg (352 lb 11.8 oz) Usual Weight Obtained From: Patient Body mass index is 44.02 kg/m?. Weight change percentage over time: +8.4kg @ ~6 months Weight Change: Weight gain Physical Exam: Subcutaneous fat loss: No fat loss Muscle loss: No muscle loss Potential micronutrient deficiency: No deficiency identified Edema/Ascites: Generalized, Lower extremities Lower Extremity: Mild 1+ GI Symptoms: None Functional Status: No Change Potential Signs of Inflammation: Chronic condition DM lymphedema MNT Billing: $ Initial Assessment: 1-15 minutes SIGNATURE: Taye Meier RD PATIENT NAME: Khoa Connors DATE: January 03, 2024 TIME: 10:56 AM [facility] THERAPY NTon 01-03-2024 THERAPY NT HNO ID: [id number] Author: BRADLEY FLOREZ, PT, DPT Service: Physical Therapy Author Type: Physical Therapist Type: Therapy (PT/OT/Speech/Resp) Filed: 01/03/2024 15:48 Note Text: Physical Therapy [facility] Facility Treatment Summary SERVICE DATE: 01/03/2024 SERVICE TIME: 1450 to 1528 ROOM: [place] [address] PT 6 Clicks Score: 20 DISCHARGE RECOMMENDATIONS Home PT Recommended Discharge Disposition Comments: Home PT with continued 01/02 supervision from spouse as able. May continue to benefit from outpatient PT once cleared by home health Anticipated Discharge Needs: Physical Assist at Home, Supervision at Home Recommended Discharge Equipment: To Be Determined GOALS Patient will demonstrate progress with functional mobility to allow safe discharge to home with available support and/or physical assistance. Able to Perform HEP with: Independent Transfer Sit to/from Stand with: Supervision Ambulate with: Contact Guard Assistance Distance: 50 Device: Wheeled Walker Ambulate Up and Down Curb Step with: Contact Guard Assistance Device: Wheeled Walker (4) ROM: BLE strength to at least 3+/5 such that patient is able to complete at least 10 minutes of graded therapeutic activity Goal: 10 MWT > 0.5 m/s at FWW Rehab Potential: Fair Progress Toward Goals: Progressing as expected ASSESSMENT Response to Therapy Interventions: Good Participation in Activities, On-Track to Achieve Discharge Goals Patient agreeable to ambulation training this session. Patient able to complete long distance ambulation trials with oxygen saturation maintaining above 95%. Patient upset regarding bathroom set up and feeling it will not fit him, therapist communicated with OT regarding potential solutions. Plan for Next Visit: Fall Prevention, Gait Training, Sit to Stand Transfers, Standing Balance, Standing Tolerance PRECAUTIONS Fall Risk, Lines/Tubes/Drains Mccarthy, 3L O2, LBP due to L2 compression fracture- no excessive BLT (patient states fx is chronic), lymphadema- ALDO wraps to LEs, RLE weakness due to chronic L5 compression fracture, L TKA 09/04 SUBJECTIVE I didn't know I had anymore therapy Agreeable to ambulation training. Patient upset regarding current medical status and lack of progress with swelling. Therpaist provided empathetic listening. Notified caser shoe parts at end of session regarding patient request to speak with her. FUNCTIONAL STATUS most recent performance Bed Mobility Rolling: Supervision Supine To Sit: Stand By Assistance Sit to Supine: Minimal Assistance (assist for L LE, able to lift R LE without assist into bed) Scooting: Stand By Assistance Transfers Sit To Stand: Contact Guard Assistance (cues for safety) Stand To Sit: Contact Guard Assistance Bed to Chair (patient refuses) Gait Contact Guard Assistance, Stand By Assistance Gait Device: Wheeled Walker General Deviations/Observation s: Little decreased, Flexed trunk posture, Shuffling Gait, Step length decreased (patient ambulates with slow partial step through gait pattern, standing rest breaks taken as needed. SpO2 assessed following ambulation as 95% on 3L NC.) Gait Distance (feet): 58', 72' 120' Stairs (unsafe to perform due to low O2 during ambulation) Curb Step: Contact Guard Assistance Device: Walker CURRENT HOSPITAL COURSE Patient is a 63 year old male presenting to [facility] s/p hospitalization at [place] for mechanical fall with resultant low back pain, L2 compression fracture, morbid obesity, hypothyroidism, with ICU admit due to respiratory decompression potentially due to GLENN and hypoventilation syndrome requiring 2-3 L O2 at rest, and lymphadema, chronic iron deficiency anemia, and thrombocytopenia. Patient now presents slightly below baseline level of function, and can benefit from skilled services to facilitate return to home setting. Relevant Past Medical History: COPD, BMI >30, HTN, NIDDM c/b retinopathy HOME LIVING Patient Lives With: Spouse (tri-level home) Assistance Available: 24-Hour (spouse is retired but is disabled and unable to lift / assist) Entry To Home: Stairs Number Of Stairs Into Home: 1 (4 curb step) Number Of Stairs To Bed/Bath: 14 Stairs to Bed/Bath with: Unilateral Rail Tub/Shower Type: Tub/shower- spouse assists with lifting LEs into tub, stands to shower Laundry: Spouse completes in basement Equipment Owned: Cane, Walker- Wheeled (riser on toilet with rails, urinal with mirror for urinating, sleeps in recliner) PRIOR FUNCTIONAL LEVEL Required Assistance, History of Falls Assistance Required With: Cleaning, Laundry, Meals, Self Care, Transportation Patient reports that he is ambulatory with SPC in home, FWW in community due to chronic L5 compression fracture causing RLE weakness. Spouse assists with lower body dressing, able to ind dress upper body. Spouse helps with getting in/out of shower and washing back, pt able to bathe self re (more content not included)... [facility] THERAPY NT HNO ID: [id number] Author: ANGELIC VALADEZ, OTR/L Service: Occupational Therapy Author Type: Interventional Radiology Tech Type: Therapy (PT/OT/Speech/Resp) Filed: 01/03/2024 14:41 Note Text: Attestation signed by Angelic Valadez OTR/L at 01/03/2024 2:41 PM I reviewed and agree with the documentation corresponding to this therapy visit. SIGNATURE: ANAT Batista DATE: January 03, 2024 TIME: 2:41 PM Occupational Therapy [facility] Facility Treatment Summary SERVICE DATE: 01/03/2024 SERVICE TIME: 1115 to 1212 ROOM: [place] [address] OT 6 Clicks Score: 18 DISCHARGE RECOMMENDATIONS Home OT Anticipated Discharge Needs: Physical Assist at Home, Supervision at Home Recommended Discharge Equipment: To Be Determined GOALS Patient will demonstrate progress with self-care, cognitive and/or coping needs identified to allow safe discharge to home with available support and/or physical assistance. Grooming with: Modified Independent (in standing) Lower Body Bathing with: Contact Guard Assistance Toilet Hygiene with: Modified Independent Toilet Transfer with: Modified Independent Tolerate (minutes of functional activity): 30 Functional Activity with: Stand By Assistance Progress Toward Goals: Progressing as expected Rehab Potential: Fair ASSESSMENT Response to Therapy Interventions: Good Participation in Activities, Improved Tolerance for Activity, Pain Pt completing exercises with cues for form and frequency. Pt very focused on toileting, swelling, and catheter management but declined hands on learning, preferring to disucss options this day. Pt amenable to ADL and toileting practice in coming sessions. Pt demo'ing some difficulty in safety awarenss as he requested to discontinue O2 during session despite increase in activity required. Plan for Next Visit: Bathing Training, Bed Mobility, Chair/Commode Transfer Training, Dressing Training, Grooming Training, Sit to Stand Transfers, Standing Balance, Standing Tolerance, Shower/Tub Transfer Training, Toileting Instruction PRECAUTIONS Fall Risk, Lines/Tubes/Drains Mccarthy, 3L O2, LBP due to L2 compression fracture- no excessive BLT (patient states fx is chronic), lymphadema- ALDO wraps to LEs, RLE weakness due to chronic L5 compression fracture, L TKA 09/04 SUBJECTIVE Pt agreeable to OT. Much c/o commode comfort, mccarthy comfort, dislike of food options, etc. FUNCTIONAL STATUS Activities of Daily Living Assist Level Additional Information Feeding Independent Grooming Contact Guard Assistance, Additional Information Bathing Upper Body Supervision Bathing Lower Body Moderate Assistance Dressing Upper Body Set Up Dressing Lower Body Moderate Assistance Toileting Minimal Assistance Instrumental Activities of Daily Living Assist Level Additional Information Meal/Beverage Prep Total Assistance Cleaning Total Assistance Laundry Total Assistance Medication Management with Strategies Mobility Assist Level Additional Information Bed Mobility Supine To Sit: Contact Guard Assistance, Additional Information Sit To Supine: Minimal Assistance, Additional Information Sit to Stand Stand By Assistance Stand to Sit Contact Guard Assistance Bed to Chair Toilet/Commode Contact Guard Assistance Shower Functional Mobility Stand By Assistance Functional Mobility Device: Wheeled Walker CURRENT HOSPITAL COURSE Patient is a 63 year old male presenting to [facility] s/p hospitalization at [place] for mechanical fall with resultant low back pain, L2 compression fracture, morbid obesity, hypothyroidism, with ICU admit due to respiratory decompression potentially due to GLENN and hypoventilation syndrome requiring 2-3 L O2 at rest, and lymphadema, chronic iron deficiency anemia, and thrombocytopenia. Patient now presents slightly below baseline level of function, and can benefit from skilled services to facilitate return to home setting. Relevant Past Medical History: COPD, BMI >30, HTN, NIDDM c/b retinopathy HOME LIVING Patient Lives With: Spouse (tri-level home) Assistance Available: 24-Hour (spouse is retired but is disabled and unable to lift / assist) Entry To Home: Stairs Number Of Stairs Into Home: 1 (4 curb step) Number Of Stairs To Bed/Bath: 14 Stairs to Bed/Bath with: Unilateral Rail Tub/Shower Type: Tub/shower- spouse assists with lifting LEs into tub, stands to shower Laundry: Spouse completes in basement Equipment Owned: Cane, Walker- Wheeled (riser on toilet with rails, urinal with mirror for urinating, sleeps in recliner) PRIOR FUNCTIONAL LEVEL Required Assistance, History of Falls Assistance Required With: Cleaning, Laundry, Meals, Self Care, Transportation Patient reports that he is ambulatory with SPC in home, FWW in community du (more content not included)... [facility] THERAPY NT HNO ID: [id number] Author: RADU LOPEZ PTA Service: Physical Therapy Author Type: Glost Kiln Operator Type: Therapy (PT/OT/Speech/Resp) Filed: 01/03/2024 10:32 Note Text: Attestation signed by Bradley Florez PT, DPT at 01/03/2024 11:16 AM I reviewed and agree with the documentation corresponding to this therapy visit. SIGNATURE: Bradley Florez PT, DPT DATE: January 03, 2024 TIME: 11:16 AM Physical Therapy [facility] Facility Treatment Summary SERVICE DATE: 01/03/2024 SERVICE TIME: 929 to 1022 ROOM: [place] [address] PT 6 Clicks Score: 22 DISCHARGE RECOMMENDATIONS Home PT Recommended Discharge Disposition Comments: Home PT with continued 01/02 supervision from spouse as able. May continue to benefit from outpatient PT once cleared by home health Anticipated Discharge Needs: Physical Assist at Home, Supervision at Home Recommended Discharge Equipment: To Be Determined GOALS Patient will demonstrate progress with functional mobility to allow safe discharge to home with available support and/or physical assistance. Able to Perform HEP with: Independent Transfer Sit to/from Stand with: Supervision Ambulate with: Contact Guard Assistance Distance: 50 Device: Wheeled Walker Ambulate Up and Down Curb Step with: Contact Guard Assistance Device: Wheeled Walker (4) ROM: BLE strength to at least 3+/5 such that patient is able to complete at least 10 minutes of graded therapeutic activity Goal: 10 MWT > 0.5 m/s at [facility] Rehab Potential: Fair Progress Toward Goals: Progressing as expected ASSESSMENT Response to Therapy Interventions: Good Participation in Activities, Improved Tolerance for Activity Patient able to ambulate sudheer to the therapy room and trial the curb step this session as well as ride the nustep for five minutes however has to stop due to being uncomfortable while sitting on the seat. Plan for Next Visit: Gait Training, Exercise Instruction/Handout PRECAUTIONS Fall Risk, Lines/Tubes/Drains Mccarthy, 3L O2, LBP due to L2 compression fracture- no excessive BLT (patient states fx is chronic), lymphadema- ALDO wraps to LEs, RLE weakness due to chronic L5 compression fracture, L TKA 09/04 SUBJECTIVE 'I fell like in the [employer] FUNCTIONAL STATUS Bed Mobility Rolling: Supervision Supine To Sit: Stand By Assistance (HOB elevated to 45 and bed raised to 22) Sit to Supine: Moderate Assistance (assist for LEs) Scooting: Stand By Assistance Transfers Sit To Stand: Contact Guard Assistance Stand To Sit: Contact Guard Assistance Bed to Chair (patient refuses) Gait Contact Guard Assistance Gait Device: Wheeled Walker General Deviations/Observation s: Shuffling Gait, Flexed trunk posture, Little decreased, Wide base of support Gait Distance (feet): 90 x 2 Stairs (unsafe to perform due to low O2 during ambulation) Curb Step: Contact Guard Assistance Device: Walker CURRENT HOSPITAL COURSE Patient is a 63 year old male presenting to [facility] s/p hospitalization at [place] for mechanical fall with resultant low back pain, L2 compression fracture, morbid obesity, hypothyroidism, with ICU admit due to respiratory decompression potentially due to GLENN and hypoventilation syndrome requiring 2-3 L O2 at rest, and lymphadema, chronic iron deficiency anemia, and thrombocytopenia. Patient now presents slightly below baseline level of function, and can benefit from skilled services to facilitate return to home setting. Relevant Past Medical History: COPD, BMI >30, HTN, NIDDM c/b retinopathy HOME LIVING Patient Lives With: Spouse (tri-level home) Assistance Available: 24-Hour (spouse is retired but is disabled and unable to lift / assist) Entry To Home: Stairs Number Of Stairs Into Home: 1 (4 curb step) Number Of Stairs To Bed/Bath: 14 Stairs to Bed/Bath with: Unilateral Rail Tub/Shower Type: Tub/shower- spouse assists with lifting LEs into tub, stands to shower Laundry: Spouse completes in basement Equipment Owned: Cane, Walker- Wheeled (riser on toilet with rails, urinal with mirror for urinating, sleeps in recliner) PRIOR FUNCTIONAL LEVEL Required Assistance, History of Falls Assistance Required With: Cleaning, Laundry, Meals, Self Care, Transportation Patient reports that he is ambulatory with SPC in home, FWW in community due to chronic L5 compression fracture causing RLE weakness. Spouse assists with lower body dressing, able to ind dress upper body. Spouse helps with getting in/out of shower and washing back, pt able to bathe self rest of the way. Ind with toileting. (-) Driving, spouse drives patient to appointments. Was at [facility] when he fell (has been doing rehab there after knee surgery 08/25/23 LLE). 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 Normal [facility] Urinalysis complete pnl Uron 01-03-2024 Urinalysis complete panel (U) COLOR: Yellow CLARITY: Cloudy GLUCOSE, URINE: Negative BILIRUBIN, URINE: Negative KETONES, URINE: Negative SPECIFIC GRAVITY, UR: 1.015 HEMOGLOBIN/BLOOD, UR: 3+ PH, URINE: 8.0 PROTEIN, URINE: Negative UROBILINOGEN: 0.2 EU/dL NITRITES: Negative LEUKEST: 2+ WBC, URINE: 11-25 /HPF RBC, URINE: >25 /HPF BACTERIA: Many ORGANISM ID: 1 >=100,000 CFU/ml Enterococcus faecalis Cephalosporins, clindamycin, and TMP-SMX are not effective for the treatment of enterococcal infections. Strain one ORGANISM ID: 2 >=100,000 CFU/ml Enterococcus faecalis Cephalosporins, clindamycin, and TMP-SMX are not effective for the treatment of enterococcal infections. Strain two ORGANISM ID: 1 (ENTEROCOCCUS FAECALIS) -- ANTIBIOTIC INTERPRETATION ERNESTINE STATUS REFERENCE RANGE -- Ampicillin S 0.5 F Susceptible <=8 , Resistant >8 The results of ampicillin predict the susceptibility to amoxicillin, amoxicillin-clavulanat e, ampicillin-sulbactam and piperacillin-tazobacta m. Vancomycin S <=0.5 F Susceptible <=4 , Intermediate >4 , Resistant >16 Nitrofurantoin S <=16 F Susceptible <=32 , Intermediate >32 , Resistant >64 ORGANISM ID: 2 (ENTEROCOCCUS FAECALIS) -- ANTIBIOTIC INTERPRETATION ERNESTINE STATUS REFERENCE RANGE -- Ampicillin S 1 F Susceptible <=8 , Resistant >8 The results of ampicillin predict the susceptibility to amoxicillin, amoxicillin-clavulanat e, ampicillin-sulbactam and piperacillin-tazobacta m. Vancomycin S <=0.5 F Susceptible <=4 , Intermediate >4 , Resistant >16 Nitrofurantoin S <=16 F Susceptible <=32 , Intermediate >32 , Resistant >64 Abnormal [facility] Comment on above: Order Comment: Speci men Type: URINE SPECIMENOrdering Facility: [facility] Address: [address] [place] [address] Performed By: #### 2 4356-8 ####[facility] [id number] [place] [address] [facility] [id number] [place] [address] [facility] Basic metabolic 2000 panelon 01-02-2024 Anion gap [Moles/Vol] 6 mmol/L Low 8-15 [facility] Comment on above: Order Comment: Speci men Type: BLOOD SPECIMEN [facility] Address: [address] [place] [address] Performed By: #### 2 4321-2, #### [facility] CLIA [id number] [address] [place] [address] [place] Calcium [Mass/Vol] 8.9 mg/dL Normal 8.5-10.2 [facility] Comment on above: Order Comment: Speci men Type: BLOOD SPECIMEN [facility]: [facility] Address: [address] [place] [address] Performed By: #### 2 4321-2, #### [facility] CLIA [id number] [address] [place] [address] [place] Chloride [Moles/Vol] 104 mmol/L Normal 98-107 [facility] Comment on above: Order Comment: Speci men Type: BLOOD SPECIMEN [facility]: [facility] Address: [address] [place] [address] Performed By: #### 2 4321-2, #### [facility] CLIA [id number] [address] [place] [address] [place] CO2 [Moles/Vol] 36 mmol/L High 22-30 [facility] Comment on above: Order Comment: Mateusz atkinson Type: BLOOD SPECIMEN [facility] Address: [address] [place] [address] Performed By: #### 2 4321-2, #### [facility] CLIA [id number] [address] [place] [address] [place] Creatinine [Mass/Vol] 1.05 mg/dL Normal 0.73-1.22 [facility] Comment on above: Order Comment: Mateusz atkinson Type: BLOOD SPECIMEN [facility] Address: [address] [place] [address] Performed By: #### 2 432-2, #### [facility] CLIA [id number] [address] [place] [id number] [facility] Creatinine and Glomerular filtration rate.predicted panel (S/P/Bld) 79 mL/min/1.73m??? Normal >=60 [facility] Comment on above: Order Comment: Mateusz atkinson Type: BLOOD SPECIMEN [facility] Address: [address] [place] [address] Result Comment: Tania mated Glomerular Filtration Rate (eGFR) is calculated using the 2020 CKD-EPI creatinine equation. This equation utilizes serum creatinine, sex, and age as parameters. The creatinine assay has traceable calibration to isotope dilution-mass spectrometry. Refer to KDIGO guidelines for clinical interpretation. In patients with unstable renal function, e.g. those with acute kidney injury, the eGFR may not accurately reflect actual GFR. Performed By: #### 2 4321-2, #### [facility] CLIA [id number] [address] [place] [address] [place] Glucose [Mass/Vol] 120 mg/dL High 74-99 [facility] Comment on above: Order Comment: Mateusz atkinson Type: BLOOD SPECIMEN [facility]: [facility] Address: [address] [place] [address] Result Comment: The [place] Diabetes Association (ADA) provides guidance for cutoff values for fasting glucose and random glucose. The ADA defines fasting as no caloric intake for at least 8 hours. Fasting plasma glucose results between 100 to 125 mg/dL indicate increased risk for diabetes (prediabetes). Fasting plasma glucose results greater than or equal to 126 mg/dL meet the criteria for diagnosis of diabetes. In the absence of unequivocal hyperglycemia, results should be confirmed by repeat testing. In a patient with classic symptoms of hyperglycemia or hyperglycemic crisis, random plasma glucose results greater than or equal to 200 mg/dL meet the criteria for diagnosis of diabetes. Reference: Standards of Medical Care in Diabetes 2016, [place] Diabetes Association. Diabetes Care. 2016.39(Suppl 1). Performed By: #### 2 4320-08, #### [employer] [facility] CLIA [id number] [address] [place] [address] [place] Potassium [Moles/Vol] 4.5 mmol/L Normal 3.7-5.1 [facility] Comment on above: Order Comment: Mateusz atkinson Type: BLOOD SPECIMEN [facility] Address: [address] [place] [address] Performed By: #### 2 4320-08, #### [facility] CLIA [id number] [address] [place] [address] [place] Sodium [Moles/Vol] 146 mmol/L High 136-144 [facility] Comment on above: Order Comment: Mateusz atkinson Type: BLOOD SPECIMEN [facility] Address: [address] [place] [address] Performed By: #### 2 4320-08, #### [facility] CLIA [id number] [address] [place] [address] [place] Urea nitrogen [Mass/Vol] 23 mg/dL Normal 9-24 [facility] Comment on above: Order Comment: Mateusz atkinson Type: BLOOD SPECIMEN [facility] Address: [address] [place] [address] Performed By: #### 2 4320-08, #### [facility] CLIA [id number] [address] [place] [address] [place] CBC panel Auto (Bld)on 01-01 Erythrocyte distribution width (RBC) [Ratio] 20.2 % High 11.5-15.0 [facility] Comment on above: Order Comment: Speci men Type: BLOOD SPECIMEN [facility] Address: [address] [place] [address] Performed By: #### 5 8410-2 #### [facility] CLIA [id number] [address] [place] [address] [place] Hematocrit (Bld) [Volume fraction] 27.7 % Low 39.0-51.0 [facility] Comment on above: Order Comment: Speci men Type: BLOOD SPECIMEN [facility] Address: [address] [place] [address] Performed By: #### 5 8410-2 #### [facility] CLIA [id number] [address] [place] [address] [facility] [place] Hemoglobin (Bld) [Mass/Vol] 7.8 g/dL Low 13.0-17.0 [facility] Comment on above: Order Comment: Speci men Type: BLOOD SPECIMEN [facility] Address: [address] [place] [address] Performed By: #### 5 8410-2 #### [facility] CLIA [id number] [address] [place] [address] [place] MCH (RBC) [Entitic mass] 30.0 pg Normal 26.0-34.0 [facility] Comment on above: Order Comment: Speci men Type: BLOOD SPECIMEN [facility] Address: [address] [place] [address] Performed By: #### 5 8410-2 #### [facility] CLIA [id number] [address] [place] [address] [place] MCHC (RBC) [Mass/Vol] 28.2 g/dL Low 30.5-36.0 [facility] Comment on above: Order Comment: Speci men Type: BLOOD SPECIMEN [facility] Address: [address] [place] [address] Performed By: #### 5 8410-2 #### [facility] CLIA [id number] [address] [place] [address] [place] MCV (RBC) [Entitic vol] 106.5 fL High 80.0-100.0 [facility] Comment on above: Order Comment: Speci men Type: BLOOD SPECIMEN [facility] Address: [address] [place] [address] Performed By: #### 5 8410-2 #### [facility] CLIA [id number] [address] [place] [address] [place] Platelet mean volume (Bld) [Entitic vol] 10.3 fL Normal 9.0-12.7 [facility] Comment on above: Order Comment: Speci men Type: BLOOD SPECIMEN [facility] Address: [address] [place] [address] Performed By: #### 5 8410-2 #### [facility] CLIA [id number] [address] [place] [address] [facility] [place] Platelets (Bld) [#/Vol] 106 10*3/uL Low 150-400 [facility] Comment on above: Order Comment: Speci men Type: BLOOD SPECIMEN [facility] Address: [address] [place] [address] Performed By: #### 5 8410-2 #### [facility] CLIA [id number] [address] [place] [address] [place] RBC (Bld) [#/Vol] 2.60 10*6/uL Low 4.20-6.00 [facility] Comment on above: Order Comment: Speci men Type: BLOOD SPECIMEN [facility] Address: [address] [place] [address] Performed By: #### 5 8410-2 #### [facility] CLIA [id number] [address] [place] [address] [place] WBC (Bld) [#/Vol] 3.10 10*3/uL Low 3.70-11.00 [facility] Comment on above: Order Comment: Speci men Type: BLOOD SPECIMEN [facility] Address: [address] [place] [address] Performed By: #### 5 8410-2 #### [facility] CLIA [id number] [address] [place] [address] [facility] Magnesium SerPl-mCncon 01-01 Magnesium [Mass/Vol] 1.8 mg/dL Normal 1.7-2.3 [facility] Comment on above: Order Comment: Speci men Type: BLOOD SPECIMENOrdering Facility: [facility] Address: [address] [place] [address] Performed By: #### 2 4321-2, 02439-4 ####[facility] [id number] [place] [address] [facility] [place] NURSING PROGon 01-02-2024 NURSING PROG HNO ID: [id number] Author: DAISY QUINN, RN Service: Nursing Author Type: Registered Nurse Type: Nursing Progress Note Filed: 01/02/2024 08:38 Note Text: Patient sitting up in bed eating breakfast. Patient states,I didn't sleep well last night. States, I was up thinking about stupid stuff. States, I had a hard time with my breathing and I was trying to breath in and out using my nose and my mouth. States, It just got me anxious and I tried to stop and I couldn't do it. Pt states, My breathing is ok this morning. Pt states, The doctor is suppose to stop in and see me today. States, I have a lot of gunk in my throat. Pt states. They offered me a pill for anxiety, but I was afraid that it would hurt me like that last medicine that I took and they had to give me narcan. Atarax explained to patient. Explained to patient different reasons that atarax can be use. All treatments and procedures were explained. Patient verbalized understanding. No other questions or concerns were voiced at this time. Normal [facility] HISTORY PHYSICALon HISTORY PHYSICAL HNO ID: [id number] Author: NINA KEENE MD Service: Hospital Medicine Author Type: Nurse Practitioner Type: H&P Filed: 01/03/2024 11:39 Note Text: Attestation signed by Nina Keene MD at 01/03/2024 11:39 AM I have reviewed the chart and data for this patient. Agree with the history and physical, outlined assessment and management plan. I have discussed with KAN on an as needed basis. Nina Keene MD DEPARTMENT OF HOSPITAL MEDICINE HISTORY AND PHYSICAL EXAM SERVICE DATE: 01/01/2024 SERVICE TIME: 10:24 AM Primary Care Physician: Angelic Monsalve MD NIGHT AND WEEKEND COVERAGE: Hospital Medicine KAN 7am-7pm [phone] pager 7pm-7am Subjective CHIEF COMPLAINT: Fall, respiratory failure, generalized weakness, here for rehab following hospitalization HPI: This is a 63 year old male with PMH significant for morbid obesity, hypothyroidism, compression fractures, chronic iron deficiency anemia, chronic lymphedema, and physical debility, presented to [facility] from [facility] for rehabilitation following hospitalization. The patient was admitted to [facility] for fall and acute back pain. He received IV dilaudid for the pain and then subsequently went into respiratory failure requiring ICU and NIPPV. He was evaluated by pulmonology who felt respiratory failure was 2/2 pain medication, likely GLENN/OHS and possibly component of FVO. He as weaned from NIPPV to NC and diuresed with IV lasix. Will need formal work up for GLENN as outpatient for home PAP therapy to be arranged. IV lasix was transitioned to Lasix 40mg BID upon discharge. He was found to have L2 compression fracture which was thought to be chronic, this was managed conservatively with tylenol and PT/OT. Hemoglobin varied from 7-8 range during hospitalization, ferritin was very low at 11. He received IV iron while in the hospital and will need to follow up with Dr. Drake (Heme/Onc) as outpatient. The patient was evaluated by PT/OT who recommended SNF so he was transferred to [facility] for rehabilitation. Current oxygen requirement is 2.5 L with SpO4 94%. Patient denies any shortness of breath. Reports lower extremity edema has improved since hospitalization. He is willing to try ALDO wraps for compression. He has an indwelling mccarthy catheter in place and we discussed voiding trial in a few days once he is more ambulatory. He is refusing the hospital oral iron supplement and reports that his spouse will being in his home oral iron supplement. PAST MEDICAL HISTORY Diagnosis Date Nerve compression [...] VITRECTOMY REMV CATARACT EXTRACAP,INSERT LENS Left 03/24/2022 FAMILY HISTORY Problem Relation Age of Onset Cancer No Family History Diabetes No Family History Hypertension No Family History Heart No Family History No Ocular Disease No Family History Social History Tobacco Use Smoking status: Never Smokeless tobacco: Never Vaping Use Vaping Use: Never used Substance Use Topics Alcohol use: No Drug use: No PRIOR TO ADMISSION MEDICATIONS: potassium chloride ER (KLOR-CON) 20 mEq tablet, Take 20 mEq by mouth once daily., Disp: , Rfl: furosemide (LASIX) 40 mg tablet, Take 40 mg by mouth two times a day., Disp: , Rfl: levothyroxine 75 mcg cap, Take 75 mcg by mouth daily before breakfast., Disp: , Rfl: calcium carbonate (TUMS) 500 mg chew, Take 500 mg by mouth two times a day as needed (dyspepsia)., Disp: , Rfl: acetaminophen (TYLENOL EXTRA STRENGTH) 500 mg tablet, Take 500 mg by mouth every 8 hours as needed., Disp: , Rfl: fluticasone (FLONASE ALLERGY RELIEF) 50 mcg/actuation nasal spray, Use 1 [place] in each nostril once daily., Disp: 11.1 mL, Rfl: 0 Fluorouracil (EFUDEX) 5 % cream, Apply a thin layer to spots on right cheek and right neck once a day x4 weeks., Disp: 40 g, Rfl: 0 ferrous sulfate 325 mg (65 mg iron) EC tablet, Take 1 tablet by mouth once daily., Disp: , Rfl: keTORolac (ACULAR) 0.5 % ophthalmic solution, Use 1 Drop in the left eye four times daily., Disp: 10 mL, Rfl: 3 prednisoLONE acetate (PRED FORTE) 1 % ophthalmic suspension, Use 1 Drop in the left eye four times daily., Disp: 10 mL, Rfl: 3 ibuprofen (MOTRIN) 600 mg tablet, Take 600 mg by mouth every 6 hours as needed., Disp: , Rfl: cyanocobalamin (VITAMIN B-12) 1,000 mcg tab, Take 1 tablet by mouth o (more content not included)... Normal [facility] NURSING PROGon 01-01-2024 NURSING PROG HNO ID: [id number] Author: DAISY QUINN RN Service: Nursing Author Type: Registered Nurse Type: Nursing Progress Note Filed: 01/01/2024 14:02 Note Text: Patient resting quietly in bed. All treatments and procedures were explained. Discussed therapy evaluation with patient. Patient states, This bed is so uncomfortable. Informed patient that PT will get a chair for him to sit in. Patient states, I am not sitting in a chair. States, They are not high enough and it makes it hard for me to get up or down in a chair. Patient refusing iron tablet. Patient states, That tab will constipate me. Informed patient that he can have his bring in his meds and we can get an order to use his home med. Patient verbalized understanding. Patient very talkative. No other questions or concerns were voiced at this time. Normal [facility] THERAPY NTon 01-01-2024 THERAPY NT HNO ID: [id number] Author: MOHAN CHA OTR/Carlton Service: Occupational Therapy Author Type: Occupational Therapist Type: Therapy (PT/OT/Speech/Resp) Filed: 01/01/2024 12:53 Note Text: Summary: OT Evaluation Occupational Therapy [facility] Facility Evaluation Summary SERVICE DATE: 01/01/2024 SERVICE TIME: 1158 to 1237 ROOM: [place] [address] OT 6 Clicks Score: 18 DISCHARGE RECOMMENDATIONS Home OT Anticipated Discharge Needs: Physical Assist at Home, Supervision at Home Recommended Discharge Equipment: To Be Determined GOALS Patient will demonstrate progress with self-care, cognitive and/or coping needs identified to allow safe discharge to home with available support and/or physical assistance. Grooming with: Modified Independent (in standing) Lower Body Bathing with: Contact Guard Assistance Toilet Hygiene with: Modified Independent Toilet Transfer with: Modified Independent Tolerate (minutes of functional activity): 30 Functional Activity with: Stand By Assistance Rehab Potential: Fair ASSESSMENT Response to Therapy Interventions: Good Participation in Activities, Low Activity Tolerance, Pain, Multiple Ongoing Medical Issues Patient presents slightly below baseline level of function d/t s/p mechanical fall with L2 compression fx and respiratory decompression potentially due to GLENN and hypoventilation syndrome requiring 2-3 L O2 at rest. Pt can benefit from skilled therapy services to facilitate return to home setting at [facility]. Plan for Next Visit: Bathing Training, Bed Mobility, Chair/Commode Transfer Training, Dressing Training, Grooming Training, Sit to Stand Transfers, Standing Balance, Standing Tolerance, Shower/Tub Transfer Training, Toileting Instruction PRECAUTIONS Fall Risk, Lines/Tubes/Drains Mccarthy, 3L O2, LBP due to L2 compression fracture- no excessive BLT (patient states fx is chronic), lymphadema- ALDO wraps to LEs, RLE weakness due to chronic L5 compression fracture, L TKA 09/04 SUBJECTIVE Pt agreeable to OT eval; low affect/motivation FUNCTIONAL STATUS Activities of Daily Living Assist Level Additional Information Feeding Independent Grooming Contact Guard Assistance, Additional Information in standing Bathing Upper Body Supervision Bathing Lower Body Moderate Assistance Dressing Upper Body Set Up Dressing Lower Body Moderate Assistance Toileting Minimal Assistance Instrumental Activities of Daily Living Assist Level Additional Information Meal/Beverage Prep Total Assistance Cleaning Total Assistance Laundry Total Assistance Medication Management with Strategies Mobility Assist Level Additional Information Bed Mobility Supine To Sit: Contact Guard Assistance, Additional Information HOB elevated and use of rail Sit To Supine: Minimal Assistance, Additional Information assist for mgmt of RLE Sit to Stand Stand By Assistance Stand to Sit Contact Guard Assistance Bed to Chair Toilet/Commode Contact Guard Assistance Shower Functional Mobility Contact Guard Assistance Functional Mobility Device: Wheeled Walker CURRENT HOSPITAL COURSE Patient is a 63 year old male presenting to [facility] s/p hospitalization at [place] for mechanical fall with resultant low back pain, L2 compression fracture, morbid obesity, hypothyroidism, with ICU admit due to respiratory decompression potentially due to GLENN and hypoventilation syndrome requiring 2-3 L O2 at rest, and lymphadema, chronic iron deficiency anemia, and thrombocytopenia. Patient now presents slightly below baseline level of function, and can benefit from skilled services to facilitate return to home setting. Relevant Past Medical History: COPD, BMI >30, HTN, NIDDM c/b retinopathy HOME LIVING Patient Lives With: Spouse (tri-level home) Assistance Available: 24-Hour (spouse is retired but is disabled and unable to lift / assist) Entry To Home: Stairs Number Of Stairs Into Home: 1 (4 curb step) Number Of Stairs To Bed/Bath: 14 Stairs to Bed/Bath with: Unilateral Rail Tub/Shower Type: Tub/shower- spouse assists with lifting LEs into tub, stands to shower Laundry: Spouse completes in basement Equipment Owned: Cane, Walker- Wheeled (riser on toilet with rails, urinal with mirror for urinating, sleeps in recliner) PRIOR FUNCTIONAL LEVEL Required Assistance, History of Falls Assistance Required With: Cleaning, Laundry, Meals, Self Care, Transportation Patient reports that he is ambulatory with SPC in home, FWW in community due to chronic L5 compression fracture causing RLE weakness. Spouse assists with lower body dressing, able to ind dress upper body. Spouse helps with getting in/out of shower and washing back, pt able to bathe self rest of the way. Ind with toileting. (-) Driving, spouse drives (more content not included)... Normal [facility] THERAPY NT HNO ID: [id number] Author: JACKIE VILLA PT Service: Physical Therapy Author Type: Physical Therapist Type: Therapy (PT/OT/Speech/Resp) Filed: 01/01/2024 12:51 Note Text: Summary: PT evaluation note Physical Therapy [facility] Facility Evaluation Summary SERVICE DATE: 01/01/2024 SERVICE TIME: 1040 to 1115 ROOM: [place] [address] PT 6 Clicks Score: 20 DISCHARGE RECOMMENDATIONS Home PT Recommended Discharge Disposition Comments: Home PT with continued 24/7 supervision from spouse as able. May continue to benefit from outpatient PT once cleared by home health Anticipated Discharge Needs: Family Training, Physical Assist at Home, Supervision at Home, Equipment Recommended Discharge Equipment: To Be Determined GOALS Patient will demonstrate progress with functional mobility to allow safe discharge to home with available support and/or physical assistance. Able to Perform HEP with: Independent Transfer Sit to/from Stand with: Supervision Ambulate with: Contact Guard Assistance Distance: 50 Device: Wheeled Walker Ambulate Up and Down Curb Step with: Contact Guard Assistance Device: Wheeled Walker (4) ROM: BLE strength to at least 3+/5 such that patient is able to complete at least 10 minutes of graded therapeutic activity Goal: 10 MWT > 0.5 m/s at [facility] Rehab Potential: Fair Progress Toward Goals: Progressing as expected ASSESSMENT Response to Therapy Interventions: Low Activity Tolerance, Needs Frequent Redirection or Reinstruction Patient is a 63 year old male presenting to [facility] s/p hospitalization at [facility] for fall with LBP and L2 fracture, which patient reports as chronic and reports I don't have any back precautions. Patient also non-compliant with O2, with saturation reading around 84% during ambulation in hallways. With pursed lip breathing technique, patient able to improve O2 to 91% though it did drop again to 88% after resting, with significant report of SOB and need to place supplemental O2 back on. Other than stairs, patient appears to be at his baseline level of function, as spouse assists with all aspects of mobility and patient is already established at an outpatient clinic, where he practices steps. Continue as tolerated. Plan for Next Visit: Gait Training, Curb Step Training (4 curb) PRECAUTIONS Fall Risk, Lines/Tubes/Drains Mccarthy, 3L O2, LBP due to L2 compression fracture- no excessive BLT (patient states fx is chronic), lymphadema- ALDO wraps to LEs, RLE weakness due to chronic L5 compression fracture, L TKA 09/04 SUBJECTIVE I got this fluid on me and they are trying to get it off. FUNCTIONAL STATUS Bed Mobility Rolling: Supervision Supine To Sit: Stand By Assistance (HOB elevated to 45 and bed raised to 22) Sit to Supine: Moderate Assistance (assist for LEs) Scooting: Stand By Assistance Transfers Sit To Stand: Contact Guard Assistance (from 22 bed height) Stand To Sit: Contact Guard Assistance Bed to Chair (patient refuses) Gait Contact Guard Assistance Gait Device: Wheeled Walker General Deviations/Observation s: Shuffling Gait, Flexed trunk posture, Little decreased, Wide base of support (Refuses O2 during ambulation) Gait Distance (feet): 25' x 2 Stairs (unsafe to perform due to low O2 during ambulation) CURRENT HOSPITAL COURSE Patient is a 63 year old male presenting to [facility] s/p hospitalization at [place] for mechanical fall with resultant low back pain, L2 compression fracture, morbid obesity, hypothyroidism, with ICU admit due to respiratory decompression potentially due to GLENN and hypoventilation syndrome requiring 2-3 L O2 at rest, and lymphadema, chronic iron deficiency anemia, and thrombocytopenia. Patient now presents significantly below baseline level of function, and can benefit from skilled services to facilitate return to home setting. Relevant Past Medical History: COPD, BMI >30, HTN, NIDDM c/b retinopathy HOME LIVING Patient Lives With: Spouse (tri-level home) Assistance Available: 24-Hour (spouse is retired but is disabled and unable to lift / assist) Entry To Home: Stairs Number Of Stairs Into Home: 1 (4 curb step) Number Of Stairs To Bed/Bath: 14 Stairs to Bed/Bath with: Unilateral Rail Tub/Shower Type: Tub/shower- spouse assists with lifting LEs into tub, stands to shower Laundry: Spouse completes in basement Equipment Owned: Cane, Walker- Wheeled (riser on toilet with rails, urinal with mirror for urinating, sleeps in recliner) PRIOR FUNCTIONAL LEVEL Required Assistance, History of Falls Assistance Required With: Cleaning, Laundry, Meals, Self Care, Transportation Patient reports that he is ambulatory with SPC in home, FWW in community due to chronic L5 compression fracture causing RL (more content not included)... [facility] NURSING PROGon 12-31-2023 NURSING PROG HNO ID: [id number] Author: SPENCER ORELLANA RN Service: Nursing Author Type: Registered Nurse Type: Nursing Progress Note Filed: 01/01/2024 06:54 Note Text: Other: Pt. Arrived via wheelchair to room 108-02, assist of one with walker from wheelchair to the bed. Mccarthy catheter in place. Denies having any pain but complaint of ambulance ride here from [place]. Stated the ambulance did not have any working air conditioner and the fumes of exhaust very strong. Call light given to pt and shown how to use. Channel 95 turned on the TV for him to watch the falls prevention. All personal belongs within reach. [facility] Absolute lymphocyte countOrd ered By: Angelic Monsalve on 11-16-2023 Lymphocytes Auto (Unsp spec) [#/Vol] 0.78 10*3/uL 0.83-4.51 [facility] Automated lymphocyte count a s percentage of total leukocytesOrdered By: Angelic Monsalve on 11-16-2023 Lymphocytes/100 WBC Auto (Unsp spec) 19.3 % 19-41 [facility] Basophil percentageOrdered B y: Angelic Monsalve on 11-16-2023 Basophils/100 WBC (Bld) 0.5 % 0-1 [facility] Bilirubin [Mass/Vol] 0.40 mg/dL 0.20-1.00 [facility] Comment on above: For patients on eltr ombopag therapy, use of Dimension [place] TBIL is not recommended. Chloride [Moles/Vol] 109 mmol/L 98-107 [facility] Eosinophils/100 WBC (Bld) 4.7 % 0-5 [facility] Glucose [Mass/Vol] 162 mg/dL 74-106 [facility] Comment on above: Fasting Glucose resu lt greater than or equal to 126 mg/dL suggests DIABETES MELLITUS per A.D.A. criteria. Hemoglobin (Bld) [Mass/Vol] 6.7 g/dL 13.0-16.5 [facility] Monocytes/100 WBC (Bld) 8.4 % 0-10 [facility] Neutrophils (Bld) [#/Vol] 2.7 10*3/uL 2.0-7.7 [facility] Neutrophils/100 WBC (Bld) 66.9 % 47-70 [facility] Potassium [Moles/Vol] 4.2 mmol/L 3.5-5.1 [facility] Protein [Mass/Vol] 6.8 g/dL 6.4-8.2 [facility] Sodium [Moles/Vol] 144 mmol/L 136-145 [facility] WBC (Bld) [#/Vol] 4.1 10*3/uL 4.4-11.0 [facility] Determination of erythrocyte mean corpuscular volume (MCV)Ordered By: Angelic Monsalve on 11-16-2023 MCV (RBC) [Entitic vol] 95.5 fL 80-94 [facility] Erythrocyte distribution wid th ratioOrdered By: Angelic Monsalve on 11-16-2023 Erythrocyte distribution width (RBC) [Ratio] 15.9 % 11.6-14.6 [facility] Erythrocyte distribution wid th standard deviationOrdered By: Angelic Monsalve on 11-16-2023 Erythrocyte distribution width (RBC) [Entitic vol] 55.8 fL 35.1-43.9 [facility] Hematocrit Auto (Bld) [Volum e fraction]Ordered By: Angelic Monsalve on 11-16-2023 Hematocrit (Bld) [Volume fraction] 23.4 % 40-54 [facility] Immature granulocytes/100 WB C Auto (Bld)Ordered By: Angelic Monsalve on 11-16-2023 Immature granulocytes/100 WBC (Bld) 0.200 % 0.0-0.9 [facility] Comment on above: IG% - Immature Granu locytes (promyelocytes, myelocytes and metamyelocytes) > 1% indicates that a LEFT SHIFT is Present. Laboratory - Chemistry and C hemistry - challengeOrdered By: Angelic Monsalve on 11-16-2023 Albumin/Globulin [Mass ratio] 0.8 {ratio} 0.9-2.4 [facility] ALP [Catalytic activity/Vol] 109 U/L 45-117 [facility] ALT [Catalytic activity/Vol] 16 U/L 16-61 [facility] CO2 [Moles/Vol] 30.0 mmol/L 21.0-32.0 [facility] Globulin (S) [Mass/Vol] 3.8 g/dL 2.2-4.2 [facility] Urea nitrogen/Creatinine [Mass ratio] 21.1 mg/mg 10-20 [facility] Laboratory - Hematology and Cell countsOrdered By: Angelic Monsalve on 11-16-2023 MCH (RBC) [Entitic mass] 27.3 pg 27.0-32.0 [facility] MCHC (RBC) [Mass/Vol] 28.6 g/dL 32-36 [facility] Nucleated RBC/100 WBC (Bld) [Ratio] 0 % 0-5 [facility] Platelet mean volume (Bld) [Entitic vol] 10.6 fL 6.2-12.0 [facility] Platelets (Bld) [#/Vol] 151 10*3/uL 150-450 [facility] No Panel InformationOrdered By: Angelic Monsalve on 11-16-2023 Estimated GFR (MDRD) Amer 69 mL/min >60 [facility] Comment on above: GFR Calc Estimated GFR (MDRD) Non-Af Amer 57 mL/min >60 [facility] Comment on above: Non- GFR Calc RBC Auto (Bld) [#/Vol]Ordere d By: Angelic Monsalve on 11-16-2023 RBC (Bld) [#/Vol] 2.45 10*6/uL 4.6-6.2 [facility] Serum or plasma calcium galdino urement (mass/volume)Ordered By: Angelic Monsalve on 11-16-2023 Calcium [Mass/Vol] 8.5 mg/dL 8.5-10.1 [facility] Serum or plasma creatinine m easurement (mass/volume)Ordered By: Angelic Monsalve on 11-16-2023 Creatinine [Mass/Vol] 1.33 mg/dL 0.70-1.30 [facility] Comment on above: The validity of the calculated GFR & GFRAA in patients over 70 years has not been determined. Clinical correlation is essential. Serum or plasma thyroid stim ulating hormone (TSH) measurement (units/volume)Ordered By: Angelic Monsalve on 11-16-2023 TSH Qn 2.98 uIU/mL 0.358-3.74 [facility] Serum or plasma urea nitroge n measurement (mass/volume)Ordered By: Angelic Monsalve on 11-16-2023 Urea nitrogen [Mass/Vol] 28 mg/dL 7-18 [facility] Thin prep Papanicolaou smear with manual screeningOrdered By: Angelic Monsalve on 11-16-2023 Thin prep Papanicolaou smear with manual screening 3.0 g/dL 3.2-5.0 [facility] Thin prep Papanicolaou smear with manual screening 20 U/L 15-37 [facility] Thin prep Papanicolaou smear with manual screening 5 5-15 [facility] Absolute lymphocyte countOrd ered By: Angelic Monsalve on 09-27-2023 Lymphocytes Auto (Unsp spec) [#/Vol] 0.64 10*3/uL 0.83-4.51 [facility] Automated lymphocyte count a s percentage of total leukocytesOrdered By: Angelic Monsalve on 09-27-2023 Lymphocytes/100 WBC Auto (Unsp spec) 18.2 % 19-41 [facility] Basophil percentageOrdered B y: Angelic Monsalve on 09-27-2023 Basophils/100 WBC (Bld) 0.6 % 0-1 [facility] Bilirubin [Mass/Vol] 0.60 mg/dL 0.20-1.00 [facility] Comment on above: For patients on eltr ombopag therapy, use of Dimension [place] TBIL is not recommended. Chloride [Moles/Vol] 107 mmol/L 98-107 [facility] Eosinophils/100 WBC (Bld) 6.3 % 0-5 [facility] Glucose [Mass/Vol] 111 mg/dL 74-106 [facility] Comment on above: Fasting Glucose resu lt from 100 to 125 mg/dL suggests IMPAIRED HOMEOSTASIS per A.D.A. criteria. Hemoglobin (Bld) [Mass/Vol] 9.0 g/dL 13.0-16.5 [facility] Monocytes/100 WBC (Bld) 8.5 % 0-10 [facility] Neutrophils (Bld) [#/Vol] 2.3 10*3/uL 2.0-7.7 [facility] Neutrophils/100 WBC (Bld) 66.1 % 47-70 [facility] Potassium [Moles/Vol] 4.8 mmol/L 3.5-5.1 [facility] Protein [Mass/Vol] 6.7 g/dL 6.4-8.2 [facility] Sodium [Moles/Vol] 141 mmol/L 136-145 [facility] WBC (Bld) [#/Vol] 3.5 10*3/uL 4.4-11.0 [facility] Determination of erythrocyte mean corpuscular volume (MCV)Ordered By: Angelic Monsalve on 09-27-2023 MCV (RBC) [Entitic vol] 105.1 fL 80-94 [facility] Erythrocyte distribution wid th ratioOrdered By: Angelic Monsalve on 09-27-2023 Erythrocyte distribution width (RBC) [Ratio] 15.5 % 11.6-14.6 [facility] Erythrocyte distribution wid th standard deviationOrdered By: Angelic Monsalve on 09-27-2023 Erythrocyte distribution width (RBC) [Entitic vol] 59.7 fL 35.1-43.9 [facility] Hematocrit Auto (Bld) [Volum e fraction]Ordered By: Angelic Monsalve on 09-27-2023 Hematocrit (Bld) [Volume fraction] 30.9 % 40-54 [facility] Immature granulocytes/100 WB C Auto (Bld)Ordered By: Angelic Monsalve on 09-27-2023 Immature granulocytes/100 WBC (Bld) 0.300 % 0.0-0.9 [facility] Comment on above: IG% - Immature Granu locytes (promyelocytes, myelocytes and metamyelocytes) > 1% indicates that a LEFT SHIFT is Present. Laboratory - Chemistry and C hemistry - challengeOrdered By: Angelic Monsalve on 09-27-2023 Albumin/Globulin [Mass ratio] 0.9 {ratio} 0.9-2.4 [facility] ALP [Catalytic activity/Vol] 145 U/L 45-117 [facility] ALT [Catalytic activity/Vol] 17 U/L 16-61 [facility] CO2 [Moles/Vol] 30.0 mmol/L 21.0-32.0 [facility] Globulin (S) [Mass/Vol] 3.6 g/dL 2.2-4.2 [facility] Urea nitrogen/Creatinine [Mass ratio] 21.2 mg/mg 10-20 [facility] Laboratory - Hematology and Cell countsOrdered By: Angelic Monsalve on 09-27-2023 MCH (RBC) [Entitic mass] 30.6 pg 27.0-32.0 [facility] MCHC (RBC) [Mass/Vol] 29.1 g/dL 32-36 [facility] Nucleated RBC/100 WBC (Bld) [Ratio] 0 % 0-5 [facility] Platelet mean volume (Bld) [Entitic vol] 10.8 fL 6.2-12.0 [facility] Platelets (Bld) [#/Vol] 130 10*3/uL 150-450 [facility] No Panel InformationOrdered By: Angelic Monsalve on 09-27-2023 Estimated GFR (MDRD) Amer 80 mL/min >60 [facility] Comment on above: GFR Calc Estimated GFR (MDRD) Non-Af Amer 66 mL/min >60 [facility] Comment on above: Non- GFR Calc RBC Auto (Bld) [#/Vol]Ordere d By: Angelic Monsalve on 09-27-2023 RBC (Bld) [#/Vol] 2.94 10*6/uL 4.6-6.2 [facility] Serum or plasma calcium galdino urement (mass/volume)Ordered By: Angelic Monsalve on 09-27-2023 Calcium [Mass/Vol] 8.5 mg/dL 8.5-10.1 [facility] Serum or plasma creatinine m easurement (mass/volume)Ordered By: Angelic Monsalve on 09-27-2023 Creatinine [Mass/Vol] 1.18 mg/dL 0.70-1.30 [facility] Comment on above: The validity of the calculated GFR & GFRAA in patients over 70 years has not been determined. Clinical correlation is essential. Serum or plasma thyroid stim ulating hormone (TSH) measurement (units/volume)Ordered By: Angelic Monsalve on 09-27-2023 TSH Qn 3.76 uIU/mL 0.358-3.74 [facility] Serum or plasma urea nitroge n measurement (mass/volume)Ordered By: Angelic Monsalve on 09-27-2023 Urea nitrogen [Mass/Vol] 25 mg/dL 7-18 [facility] Thin prep Papanicolaou smear with manual screeningOrdered By: Angelic Monsalve on 09-27-2023 Thin prep Papanicolaou smear with manual screening 3.1 g/dL 3.2-5.0 [facility] Thin prep Papanicolaou smear with manual screening 22 U/L 15-37 [facility] Thin prep Papanicolaou smear with manual screening 4 5-15 [facility] Absolute lymphocyte countOrd ered By: En Banks on 09-01-2023 Lymphocytes Auto (Unsp spec) [#/Vol] 0.51 10*3/uL 0.83-4.51 [facility] Automated lymphocyte count a s percentage of total leukocytesOrdered By: En Banks on 09-01-2023 Lymphocytes/100 WBC Auto (Unsp spec) 16.2 % 19-41 [facility] Basophil percentageOrdered B y: En Banks on 09-01-2023 Basophils/100 WBC (Bld) 0.3 % 0-1 [facility] Chloride [Moles/Vol] 114 mmol/L 98-107 [facility] Eosinophils/100 WBC (Bld) 5.7 % 0-5 [facility] Glucose [Mass/Vol] 157 mg/dL 74-106 [facility] Comment on above: Fasting Glucose resu lt greater than or equal to 126 mg/dL suggests DIABETES MELLITUS per A.D.A. criteria. Hemoglobin (Bld) [Mass/Vol] 9.1 g/dL 13.0-16.5 [facility] Monocytes/100 WBC (Bld) 10.2 % 0-10 [facility] Neutrophils (Bld) [#/Vol] 2.1 10*3/uL 2.0-7.7 [facility] Neutrophils/100 WBC (Bld) 67.3 % 47-70 [facility] Potassium [Moles/Vol] 4.3 mmol/L 3.5-5.1 [facility] Sodium [Moles/Vol] 144 mmol/L 136-145 [facility] WBC (Bld) [#/Vol] 3.2 10*3/uL 4.4-11.0 [facility] Determination of erythrocyte mean corpuscular volume (MCV)Ordered By: En Banks on 09-01-2023 MCV (RBC) [Entitic vol] 104.3 fL 80-94 [facility] Erythrocyte distribution wid th ratioOrdered By: En Banks on 09-01-2023 Erythrocyte distribution width (RBC) [Ratio] 14.7 % 11.6-14.6 [facility] Erythrocyte distribution wid th standard deviationOrdered By: En Banks on 09-01-2023 Erythrocyte distribution width (RBC) [Entitic vol] 56.5 fL 35.1-43.9 [facility] Hematocrit Auto (Bld) [Volum e fraction]Ordered By: En Banks on 09-01-2023 Hematocrit (Bld) [Volume fraction] 29.1 % 40-54 [facility] Immature granulocytes/100 WB C Auto (Bld)Ordered By: En Banks on 09-01-2023 Immature granulocytes/100 WBC (Bld) 0.300 % 0.0-0.9 [facility] Comment on above: IG% - Immature Granu locytes (promyelocytes, myelocytes and metamyelocytes) > 1% indicates that a LEFT SHIFT is Present. Laboratory - Chemistry and C hemistry - challengeOrdered By: En Banks on 09-01-2023 CO2 [Moles/Vol] 28.0 mmol/L 21.0-32.0 [facility] Urea nitrogen/Creatinine [Mass ratio] 28.6 mg/mg 10-20 [facility] Laboratory - Hematology and Cell countsOrdered By: En Banks on 09-01-2023 MCH (RBC) [Entitic mass] 32.6 pg 27.0-32.0 [facility] MCHC (RBC) [Mass/Vol] 31.3 g/dL 32-36 [facility] Nucleated RBC/100 WBC (Bld) [Ratio] 0 % 0-5 [facility] Platelet mean volume (Bld) [Entitic vol] 10.5 fL 6.2-12.0 [facility] Platelets (Bld) [#/Vol] 104 10*3/uL 150-450 [facility] No Panel InformationOrdered By: En Banks on 09-01-2023 Estimated Creatinine Clearance Calc 110.70 ml/min [facility] Estimated GFR (MDRD) Amer 85 mL/min >60 [facility] Comment on above: GFR Calc Estimated GFR (MDRD) Non-Af Amer 70 mL/min >60 [facility] Comment on above: Non- GFR Calc RBC Auto (Bld) [#/Vol]Ordere d By: En Banks on 09-01-2023 RBC (Bld) [#/Vol] 2.79 10*6/uL 4.6-6.2 [facility] Serum or plasma calcium galdino urement (mass/volume)Ordered By: En Banks on 09-01-2023 Calcium [Mass/Vol] 8.6 mg/dL 8.5-10.1 [facility] Serum or plasma creatinine m easurement (mass/volume)Ordered By: En Banks on 09-01-2023 Creatinine [Mass/Vol] 1.12 mg/dL 0.70-1.30 [facility] Comment on above: The validity of the calculated GFR & GFRAA in patients over 70 years has not been determined. Clinical correlation is essential. Serum or plasma urea nitroge n measurement (mass/volume)Ordered By: En Banks on 09-01-2023 Urea nitrogen [Mass/Vol] 32 mg/dL 7-18 [facility] Thin prep Papanicolaou smear with manual screeningOrdered By: En Banks on 09-01-2023 Thin prep Papanicolaou smear with manual screening 2 5-15 [facility] Blood manual differential co mment interpretation (narrative result)Ordered By: Daryl Luz on 08-27-2023 Manual differential comment Mejia (Bld) [Interp] SCANNED [facility] Thin prep Papanicolaou smear with manual screeningOrdered By: Daryl Luz on 08-25-2023 Thin prep Papanicolaou smear with manual screening 164 mg/dL 74-106 [facility] Comment on above: MANAGEMENT OF PATIEN T CARE PER NURSING PROTOCOL Absolute lymphocyte countOrd ered By: Daryl Luz on 08-14-2023 Lymphocytes Auto (Unsp spec) [#/Vol] 0.73 10*3/uL 0.83-4.51 [facility] Automated lymphocyte count a s percentage of total leukocytesOrdered By: Daryl Luz on 08-14-2023 Lymphocytes/100 WBC Auto (Unsp spec) 17.8 % 19-41 [facility] Basophil percentageOrdered B y: Daryl Luz on 08-14-2023 Basophils/100 WBC (Bld) 0.2 % 0-1 [facility] Chloride [Moles/Vol] 113 mmol/L 98-107 [facility] Eosinophils/100 WBC (Bld) 4.1 % 0-5 [facility] Glucose [Mass/Vol] 150 mg/dL 74-106 [facility] Comment on above: Fasting Glucose resu lt greater than or equal to 126 mg/dL suggests DIABETES MELLITUS per A.D.A. criteria. Hemoglobin (Bld) [Mass/Vol] 11.9 g/dL 13.0-16.5 [facility] Monocytes/100 WBC (Bld) 8.5 % 0-10 [facility] Neutrophils (Bld) [#/Vol] 2.8 10*3/uL 2.0-7.7 [facility] Neutrophils/100 WBC (Bld) 69.2 % 47-70 [facility] Potassium [Moles/Vol] 4.5 mmol/L 3.5-5.1 [facility] Sodium [Moles/Vol] 143 mmol/L 136-145 [facility] WBC (Bld) [#/Vol] 4.1 10*3/uL 4.4-11.0 [facility] Determination of erythrocyte mean corpuscular volume (MCV)Ordered By: Daryl Luz on 08-14-2023 MCV (RBC) [Entitic vol] 102.4 fL 80-94 [facility] Erythrocyte distribution wid th ratioOrdered By: Daryl Luz on 08-14-2023 Erythrocyte distribution width (RBC) [Ratio] 14.1 % 11.6-14.6 [facility] Erythrocyte distribution wid th standard deviationOrdered By: Daryl Luz on 08-14-2023 Erythrocyte distribution width (RBC) [Entitic vol] 53.2 fL 35.1-43.9 [facility] Hematocrit Auto (Bld) [Volum e fraction]Ordered By: Daryl Luz on 08-14-2023 Hematocrit (Bld) [Volume fraction] 38.7 % 40-54 [facility] Immature granulocytes/100 WB C Auto (Bld)Ordered By: Daryl Luz on 08-14-2023 Immature granulocytes/100 WBC (Bld) 0.200 % 0.0-0.9 [facility] Comment on above: IG% - Immature Granu locytes (promyelocytes, myelocytes and metamyelocytes) > 1% indicates that a LEFT SHIFT is Present. Laboratory - Chemistry and C hemistry - challengeOrdered By: Daryl Luz on 08-14-2023 CO2 [Moles/Vol] 31.0 mmol/L 21.0-32.0 [facility] Urea nitrogen/Creatinine [Mass ratio] 21.3 mg/mg 10-20 [facility] Laboratory - Hematology and Cell countsOrdered By: Daryl Luz on 08-14-2023 MCH (RBC) [Entitic mass] 31.5 pg 27.0-32.0 [facility] MCHC (RBC) [Mass/Vol] 30.7 g/dL 32-36 [facility] Nucleated RBC/100 WBC (Bld) [Ratio] 0 % 0-5 [facility] Platelets (Bld) [#/Vol] 118 10*3/uL 150-450 [facility] No Panel InformationOrdered By: Daryl Luz on 08-14-2023 Estimated GFR (MDRD) Amer 104 mL/min >60 [facility] Comment on above: GFR Calc Estimated GFR (MDRD) Non-Af Amer 86 mL/min >60 [facility] Comment on above: Non- GFR Calc Platelet mean volume Abel-Ec ker (Bld) [Entitic vol]Ordered By: Daryl Luz on 08-14-2023 Platelet mean volume (Bld) [Entitic vol] 10.8 fL 6.2-12.0 [facility] RBC Auto (Bld) [#/Vol]Ordere d By: Daryl Luz on 08-14-2023 RBC (Bld) [#/Vol] 3.78 10*6/uL 4.6-6.2 [facility] Serum or plasma calcium galdino urement (mass/volume)Ordered By: Daryl Luz on 08-14-2023 Calcium [Mass/Vol] 9.3 mg/dL 8.5-10.1 [facility] Serum or plasma creatinine m easurement (mass/volume)Ordered By: Daryl Luz on 08-14-2023 Creatinine [Mass/Vol] 0.94 mg/dL 0.70-1.30 [facility] Comment on above: The validity of the calculated GFR & GFRAA in patients over 70 years has not been determined. Clinical correlation is essential. Serum or plasma urea nitroge n measurement (mass/volume)Ordered By: aDryl Luz on 08-14-2023 Urea nitrogen [Mass/Vol] 20 mg/dL 7-18 [facility] Thin prep Papanicolaou smear with manual screeningOrdered By: Daryl Luz on 08-14-2023 Thin prep Papanicolaou smear with manual screening 3.0 g/dL 3.2-5.0 [facility] Thin prep Papanicolaou smear with manual screening -1 5-15 [facility] Absolute lymphocyte countOrd ered By: Daryl Luz on 06-17-2023 Lymphocytes Auto (Unsp spec) [#/Vol] 0.73 10*3/uL 0.83-4.51 [facility] Basophil percentageOrdered B y: Daryl Luz on 06-17-2023 Basophils/100 WBC (Bld) 0.5 % 0-1 [facility] Chloride [Moles/Vol] 112 mmol/L 98-107 [facility] Eosinophils/100 WBC (Bld) 4.7 % 0-5 [facility] Glucose [Mass/Vol] 147 mg/dL 74-106 [facility] Comment on above: Fasting Glucose resu lt greater than or equal to 126 mg/dL suggests DIABETES MELLITUS per A.D.A. criteria. Neutrophils (Bld) [#/Vol] 2.9 10*3/uL 2.0-7.7 [facility] Neutrophils/100 WBC (Bld) 67.5 % 47-70 [facility] Potassium [Moles/Vol] 4.5 mmol/L 3.5-5.1 [facility] Sodium [Moles/Vol] 143 mmol/L 136-145 [facility] WBC (Bld) [#/Vol] 4.2 10*3/uL 4.4-11.0 [facility] Blood erythrocytes count (nu mber/volume)Ordered By: Daryl Luz on 06-17-2023 RBC (Bld) [#/Vol] 3.73 10*6/uL 4.6-6.2 [facility] Blood hemoglobin measurement (mass/volume)Ordered By: Daryl Luz on 06-17-2023 Hemoglobin (Bld) [Mass/Vol] 12.1 g/dL 13.0-16.5 [facility] Blood lymphocytes/100 leukoc ytesOrdered By: Daryl Luz on 06-17-2023 Lymphocytes/100 WBC (Bld) 17.3 % 19-41 [facility] Blood monocytes/100 leukocyt esOrdered By: Daryl Luz on 06-17-2023 Monocytes/100 WBC (Bld) 9.5 % 0-10 [facility] Blood platelet mean volumeOr dered By: Daryl Luz on 06-17-2023 Platelet mean volume (Bld) [Entitic vol] 10.3 fL 6.2-12.0 [facility] Determination of erythrocyte mean corpuscular volume (MCV)Ordered By: Daryl Luz on 06-17-2023 MCV (RBC) [Entitic vol] 102.9 fL 80-94 [facility] Hematocrit Auto (Bld) [Volum e fraction]Ordered By: Daryl Luz on 06-17-2023 Hematocrit (Bld) [Volume fraction] 38.4 % 40-54 [facility] - Chemistry and C hemistry - challengeOrdered By: Daryl Luz on 06-17-2023 CO2 [Moles/Vol] 30.0 mmol/L 21.0-32.0 [facility] Magnesium [Mass/Vol] 2.0 mg/dL 1.6-2.6 [facility] Urea nitrogen/Creatinine [Mass ratio] 19.0 mg/mg 10-20 [facility] - Hematology and Cell countsOrdered By: Daryl Luz on 06-17-2023 Erythrocyte distribution width (RBC) [Entitic vol] 51.2 fL 35.1-43.9 [facility] Erythrocyte distribution width (RBC) [Ratio] 13.4 % 11.6-14.6 [facility] Immature granulocytes/100 WBC (Bld) 0.500 % 0.0-0.9 [facility] Comment on above: IG% - Immature Granu locytes (promyelocytes, myelocytes and metamyelocytes) > 1% indicates that a LEFT SHIFT is Present. MCH (RBC) [Entitic mass] 32.4 pg 27.0-32.0 [facility] Nucleated RBC/100 WBC (Bld) [Ratio] 0 % 0-5 [facility] MCHC Auto (RBC) [Mass/Vol]Or dered By: Daryl Luz on 06-17-2023 MCHC (RBC) [Mass/Vol] 31.5 g/dL 32-36 [facility] No Panel InformationOrdered By: Daryl Luz on 06-17-2023 Estimated GFR (MDRD) Amer 103 mL/min >60 [facility] Comment on above: GFR Calc Estimated GFR (MDRD) Non-Af Amer 85 mL/min >60 [facility] Comment on above: Non- GFR Calc Nasal Screen MRSA/MSSA [facility] Nasal Screen MRSA/MSSA [facility] Platelets bldOrdered By: Roverto Luz on 06-17-2023 Platelets (Bld) [#/Vol] 108 10*3/uL 150-450 [facility] Serum or plasma albumin galdino urement (mass/volume)Ordered By: Daryl Luz on 06-17-2023 Albumin [Mass/Vol] 3.1 g/dL 3.2-5.0 [facility] Serum or plasma calcium galdino urement (mass/volume)Ordered By: Daryl Luz on 06-17-2023 Calcium [Mass/Vol] 8.8 mg/dL 8.5-10.1 [facility] Serum or plasma creatinine m easurement (mass/volume)Ordered By: Daryl Luz on 06-17-2023 Creatinine [Mass/Vol] 0.95 mg/dL 0.70-1.30 [facility] Comment on above: The validity of the calculated GFR & GFRAA in patients over 70 years has not been determined. Clinical correlation is essential. Serum or plasma urea nitroge n measurement (mass/volume)Ordered By: Daryl Luz on 06-17-2023 Urea nitrogen [Mass/Vol] 18 mg/dL 7-18 [facility] Thin prep Papanicolaou smear with manual screeningOrdered By: Daryl Lzu on 06-17-2023 Thin prep Papanicolaou smear with manual screening 1 5-15 [facility] Whole blood hemoglobin A1c/t otal hemoglobin ratio (mass fraction)Ordered By: Daryl Luz on 06-17-2023 HbA1c (Bld) [Mass fraction] 6.7 % 3.8-5.6 [facility] Comment on above: Normal < 5.7 % Predi abetic 5.7 - 6.4 % Diabetic >or= 6.5 % Please note range changes. Final Surgical Pathology Rep vanessa 05-26-2023 Final Surgical Pathology Report . Pathology Reports Accession: Collected Date/Time: Received Date/Time: Pathologist: [id number] 05/24/2023 10:48 EST 05/25/2023 07:46 EST WALTER KATE MD Final Surgical Pathology Report DIAGNOSIS: A. CECAL POLYP: - TUBULAR ADENOMA B. DISTAL SIGMOID, BIOPSY: - HISTOLOGIC FEATURES SUGGESTIVE OF INFLAMMATORY TYPE POLYP Comment: Intradepartmental consultation: Dr. Mace, who concurs. 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 Received in formalin labeled cecal polyp are multiple young-pink tissue fragments aggregating 1.5 x 0.3 x 0.2 cm. TS-1 B. Received in formalin labeled distal sigmoid are 4 young-pink tissue fragments measuring 0.2 to 0.3 cm. TS-1 Eileen Mancilla, Grossing Tongue Presser/ Dr. Teja Mace, Pathologist Dictated by Eileen Mancilla MICROSCOPIC DESCRIPTION: The microscopic examination is performed, except in the case of Gross Only. Electronically Signed by Pathology Report verified by [facility] WALTER KATE Sign out Date: 05/26/2023 15:42 Performing Lab: [facility], [address] [place] [address] Pathology Dept Disclaimer If ancillary studies were utilized, the following Laboratory Developed Test (LDT) disclaimer will apply: Under CLIA requirements, [facility] Pathology Laboratory is qualified to perform high complexity testing. For all ancillary stains, positive and negative controls stain appropriately. Performance characteristics of immunohistochemical and chromogenic in-situ hybridization tests have been determined by [facility] Pathology Laboratory. These tests are used for clinical purposes, They should not be regarded as investigational or for research. Normal [facility] ([place]) .Auto Diffon 05-24-2023 Basophil, Absolute 0.0 10 3/mcL Normal 0.0-0.2 [facility] ([place]) Comment on above: Performed By: #### A DIFF, CBC, ANEU, FERR, FE #### [id number] [place], [place] [address] Basophils/100 WBC (Bld) 0.3 % Normal 0.0-2.5 [facility] ([place]) Comment on above: Performed By: #### A DIFF, CBC, ANEU, FERR, FE #### [address] [address] Eosinophil, Absolute 0.1 10 3/mcL Normal 0.0-0.4 [facility] ([place]) Comment on above: Performed By: #### A DIFF, CBC, ANEU, FERR, FE #### [address] [address] Eosinophils/100 WBC (Bld) 2.7 % Normal 0.0-7.0 [facility] ([place]) Comment on above: Performed By: #### A DIFF, CBC, ANEU, FERR, FE #### [address] [address] Lymphocyte, Absolute 0.8 10 3/mcL Normal 0.8-3.9 [facility] ([place]) Comment on above: Performed By: #### A DIFF, CBC, ANEU, FERR, FE #### [address] [address] Lymphocytes/100 WBC (Bld) 20.6 % Normal 10.0-50.0 [facility] ([place]) Comment on above: Performed By: #### A DIFF, CBC, ANEU, FERR, FE #### [address] [address] Monocyte, Absolute 0.3 10 3/mcL Normal 0.2-1.0 [facility] ([place]) Comment on above: Performed By: #### A DIFF, CBC, ANEU, FERR, FE #### [address] [address] Monocytes/100 WBC (Bld) 7.7 % Normal 1.7-13.0 [facility] ([place]) Comment on above: Performed By: #### A DIFF, CBC, ANEU, FERR, FE #### [address] [address] Neutrophils/100 WBC (Bld) 68.7 % Normal 37.0-80.0 [facility] ([place]) Comment on above: Performed By: #### A DIFF, CBC, ANEU, FERR, FE #### [address] [address] .NEUABSon 05-24-2023 Neutrophil, Absolute 2.6 10 3/mcL Low 2.9-6.2 [facility] ([place]) Comment on above: Performed By: #### A DIFF, CBC, ANEU, FERR, FE #### [place] [address] CBCon 05-24-2023 Erythrocyte distribution width (RBC) [Ratio] 14.1 % Normal 11.5-14.5 [facility] ([place]) Comment on above: Performed By: #### A DIFF, CBC, ANEU, FERR, FE #### [place] [address] Hematocrit (Bld) [Volume fraction] 38.1 % Low 42.0-52.0 [facility] ([place]) Comment on above: Performed By: #### A DIFF, CBC, ANEU, FERR, FE #### [place] [address] Hgb 12.7 G/dL Low 14.0-18.0 [facility] ([place]) Comment on above: Performed By: #### A DIFF, CBC, ANEU, FERR, FE #### [place] [address] MCH (RBC) [Entitic mass] 33.2 pg High 27.0-31.2 [facility] ([place]) Comment on above: Performed By: #### A DIFF, CBC, ANEU, FERR, FE #### [place] [address] MCHC 33.4 G/dL Normal 31.8-35.4 [facility] ([place]) Comment on above: Performed By: #### A DIFF, CBC, ANEU, FERR, FE #### [place] [address] MCV (RBC) [Entitic vol] 99.4 fL High 80.0-94.0 [facility] ([place]) Comment on above: Performed By: #### A DIFF, CBC, ANEU, FERR, FE #### [place] [address] Platelet 107 10 3/mcL Low 130-400 [facility] ([place]) Comment on above: Performed By: #### A DIFF, CBC, ANEU, FERR, FE #### [place] [address] Platelet mean volume (Bld) [Entitic vol] 7.5 fL Normal 7.4-10.4 [facility] ([place]) Comment on above: Performed By: #### A DIFF, CBC, ANEU, FERR, FE #### [place] [address] RBC 3.83 10 6/mcL Low 4.04-6.13 [facility] ([place]) Comment on above: Performed By: #### A DIFF, CBC, ANEU, FERR, FE #### [place] [address] WBC 3.8 10 3/mcL Low 4.6-10.8 [facility] ([place]) Comment on above: Performed By: #### A DIFF, CBC, ANEU, FERR, FE #### [place] [address] FEon 05-24-2023 Iron [Mass/Vol] 127 ug/dL Normal 65-175 [facility] ([place]) Comment on above: Performed By: #### A DIFF, CBC, ANEU, FERR, FE #### [place] [address] Jaret 05-24-2023 Ferritin [Mass/Vol] 37.0 ng/mL Normal 26.0-388.0 [facility] ([place]) Comment on above: Performed By: #### A DIFF, CBC, ANEU, FERR, FE #### [place] [address] LABORATORYOrdered By: SYSTEM SYSTEM on 05-24-2023 Basophil, Absolute 0.0 103/mcL Invalid Interpretation Code 0.0 - 0.2 10^3/mcL AO Workflow SS Basophils/100 WBC (Bld) 0.3 % Invalid Interpretation Code 0.0 - 2.5 % AO Workflow SS Eosinophil, Absolute 0.1 103/mcL Invalid Interpretation Code 0.0 - 0.4 10^3/mcL AO Workflow SS Eosinophils/100 WBC (Bld) 2.7 % Invalid Interpretation Code 0.0 - 7.0 % AO Workflow SS Erythrocyte distribution width (RBC) [Ratio] 14.1 % Invalid Interpretation Code 11.5 - 14.5 % AO Workflow SS Ferritin [Mass/Vol] 37.0 ng/mL Invalid Interpretation Code 26.0 - 388.0 ng/mL AO ADM SS Hematocrit (Bld) [Volume fraction] 38.1 % Invalid Interpretation Code 42.0 - 52.0 % AO Workflow SS Hemoglobin (Bld) [Mass/Vol] 12.7 G/dL Invalid Interpretation Code 14.0 - 18.0 G/dL AO Workflow SS Iron [Mass/Vol] 127 ug/dL Invalid Interpretation Code 65 - 175 mcg/dL AO ADM SS Lymphocyte, Absolute 0.8 103/mcL Invalid Interpretation Code 0.8 - 3.9 10^3/mcL AO Workflow SS Lymphocytes/100 WBC (Bld) 20.6 % Invalid Interpretation Code 10.0 - 50.0 % AO Workflow SS MCH (RBC) [Entitic mass] 33.2 pg Invalid Interpretation Code 27.0 - 31.2 pg AO Workflow SS MCHC 33.4 G/dL Invalid Interpretation Code 31.8 - 35.4 G/dL AO Workflow SS MCV (RBC) [Entitic vol] 99.4 fL Invalid Interpretation Code 80.0 - 94.0 fL AO Workflow SS Monocyte, Absolute 0.3 103/mcL Invalid Interpretation Code 0.2 - 1.0 10^3/mcL AO Workflow SS Monocytes/100 WBC (Bld) 7.7 % Invalid Interpretation Code 1.7 - 13.0 % AO Workflow SS Neutrophil, Absolute 2.6 103/mcL Invalid Interpretation Code 2.9 - 6.2 10^3/mcL AO Workflow SS Neutrophils/100 WBC (Bld) 68.7 % Invalid Interpretation Code 37.0 - 80.0 % AO Workflow SS Platelet mean volume (Bld) [Entitic vol] 7.5 fL Invalid Interpretation Code 7.4 - 10.4 fL AO Workflow SS Platelets (Bld) [#/Vol] 107 103/mcL Invalid Interpretation Code 130 - 400 10^3/mcL AO Workflow SS RBC (Bld) [#/Vol] 3.83 106/mcL Invalid Interpretation Code 4.04 - 6.13 10^6/mcL AO Workflow SS WBC (Bld) [#/Vol] 3.8 103/mcL Invalid Interpretation Code 4.6 - 10.8 10^3/mcL AO Workflow SS Absolute lymphocyte countOrd ered By: Daryl Luz on 02-03-2023 Lymphocytes Auto (Unsp spec) [#/Vol] 0.97 10*3/uL 0.83-4.51 [facility] Basophil percentageOrdered B y: Daryl Luz on 02-03-2023 Basophils/100 WBC (Bld) 0.5 % 0-1 [facility] Chloride [Moles/Vol] 108 mmol/L 98-107 [facility] Eosinophils/100 WBC (Bld) 2.8 % 0-5 [facility] Glucose [Mass/Vol] 112 mg/dL 74-106 [facility] Comment on above: Fasting Glucose resu lt from 100 to 125 mg/dL suggests IMPAIRED HOMEOSTASIS per A.D.A. criteria. Neutrophils (Bld) [#/Vol] 2.8 10*3/uL 2.0-7.7 [facility] Neutrophils/100 WBC (Bld) 65.1 % 47-70 [facility] Potassium [Moles/Vol] 4.4 mmol/L 3.5-5.1 [facility] Sodium [Moles/Vol] 140 mmol/L 136-145 [facility] WBC (Bld) [#/Vol] 4.3 10*3/uL 4.4-11.0 [facility] Blood erythrocytes count (nu mber/volume)Ordered By: Daryl Luz on 02-03-2023 RBC (Bld) [#/Vol] 3.96 10*6/uL 4.6-6.2 [facility] Blood hemoglobin measurement (mass/volume)Ordered By: Daryl Luz on 02-03-2023 Hemoglobin (Bld) [Mass/Vol] 12.9 g/dL 13.0-16.5 [facility] Blood lymphocytes/100 leukoc ytesOrdered By: Daryl Luz on 02-03-2023 Lymphocytes/100 WBC (Bld) 22.6 % 19-41 [facility] Blood monocytes/100 leukocyt esOrdered By: Daryl Luz on 02-03-2023 Monocytes/100 WBC (Bld) 8.8 % 0-10 [facility] Blood platelet mean volumeOr dered By: Daryl Luz on 02-03-2023 Platelet mean volume (Bld) [Entitic vol] 10.0 fL 6.2-12.0 [facility] Determination of erythrocyte mean corpuscular volume (MCV)Ordered By: Darly Luz on 02-03-2023 MCV (RBC) [Entitic vol] 102.0 fL 80-94 [facility] Hematocrit Auto (Bld) [Volum e fraction]Ordered By: Daryl Luz on 02-03-2023 Hematocrit (Bld) [Volume fraction] 40.4 % 40-54 [facility] - Chemistry and C hemistry - challengeOrdered By: Daryl Luz on 02-03-2023 CO2 [Moles/Vol] 29.0 mmol/L 21.0-32.0 [facility] Urea nitrogen/Creatinine [Mass ratio] 18.5 mg/mg 10-20 [facility] - Hematology and Cell countsOrdered By: Daryl Luz on 02-03-2023 Erythrocyte distribution width (RBC) [Entitic vol] 52.7 fL 35.1-43.9 [facility] Erythrocyte distribution width (RBC) [Ratio] 14.1 % 11.6-14.6 [facility] Immature granulocytes/100 WBC (Bld) 0.200 % 0.0-0.9 [facility] Comment on above: IG% - Immature Granu locytes (promyelocytes, myelocytes and metamyelocytes) > 1% indicates that a LEFT SHIFT is Present. MCH (RBC) [Entitic mass] 32.6 pg 27.0-32.0 [facility] Nucleated RBC/100 WBC (Bld) [Ratio] 0 % 0-5 [facility] MCHC Auto (RBC) [Mass/Vol]Or dered By: Daryl Luz on 02-03-2023 MCHC (RBC) [Mass/Vol] 31.9 g/dL 32-36 [facility] No Panel InformationOrdered By: Daryl Luz on 02-03-2023 Estimated GFR (MDRD) Amer 88 mL/min >60 [facility] Comment on above: GFR Calc Estimated GFR (MDRD) Non-Af Amer 73 mL/min >60 [facility] Comment on above: Non- GFR Calc Platelets bldOrdered By: Roverto Luz on 02-03-2023 Platelets (Bld) [#/Vol] 110 10*3/uL 150-450 [facility] Serum or plasma albumin galdino urement (mass/volume)Ordered By: Daryl Luz on 02-03-2023 Albumin [Mass/Vol] 3.3 g/dL 3.2-5.0 [facility] Serum or plasma calcium galdino urement (mass/volume)Ordered By: Daryl Luz on 02-03-2023 Calcium [Mass/Vol] 9.1 mg/dL 8.5-10.1 [facility] Serum or plasma creatinine m easurement (mass/volume)Ordered By: Daryl Luz on 02-03-2023 Creatinine [Mass/Vol] 1.08 mg/dL 0.70-1.30 [facility] Comment on above: The validity of the calculated GFR & GFRAA in patients over 70 years has not been determined. Clinical correlation is essential. Serum or plasma urea nitroge n measurement (mass/volume)Ordered By: Daryl Luz on 02-03-2023 Urea nitrogen [Mass/Vol] 20 mg/dL 7-18 [facility] Thin prep Papanicolaou smear with manual screeningOrdered By: Daryl Luz on 02-03-2023 Thin prep Papanicolaou smear with manual screening 3 5-15 [facility] Absolute lymphocyte countOrd ered By: Daryl Luz on 11-30-2022 Lymphocytes Auto (Unsp spec) [#/Vol] 0.96 10*3/uL 0.83-4.51 [facility] Basophil percentageOrdered B y: Daryl Luz on 11-30-2022 Basophils/100 WBC (Bld) 0.6 % 0-1 [facility] Chloride [Moles/Vol] 109 mmol/L 98-107 [facility] Eosinophils/100 WBC (Bld) 3.8 % 0-5 [facility] Glucose [Mass/Vol] 123 mg/dL 74-106 [facility] Comment on above: Fasting Glucose resu lt from 100 to 125 mg/dL suggests IMPAIRED HOMEOSTASIS per A.D.A. criteria. Neutrophils (Bld) [#/Vol] 3.0 10*3/uL 2.0-7.7 [facility] Neutrophils/100 WBC (Bld) 63.2 % 47-70 [facility] Potassium [Moles/Vol] 4.5 mmol/L 3.5-5.1 [facility] Sodium [Moles/Vol] 143 mmol/L 136-145 [facility] WBC (Bld) [#/Vol] 4.7 10*3/uL 4.4-11.0 [facility] Blood erythrocytes count (nu mber/volume)Ordered By: Daryl Luz on 11-30-2022 RBC (Bld) [#/Vol] 3.91 10*6/uL 4.6-6.2 [facility] Blood hemoglobin measurement (mass/volume)Ordered By: Daryl Luz on 11-30-2022 Hemoglobin (Bld) [Mass/Vol] 12.1 g/dL 13.0-16.5 [facility] Blood lymphocytes/100 leukoc ytesOrdered By: Daryl Luz on 11-30-2022 Lymphocytes/100 WBC (Bld) 20.5 % 19-41 [facility] Blood monocytes/100 leukocyt esOrdered By: Daryl Luz on 11-30-2022 Monocytes/100 WBC (Bld) 10.0 % 0-10 [facility] Blood platelet adequacy dete ction by light microscopyOrdered By: Daryl Luz on 11-30-2022 Platelets LM Ql (Bld) SLT DEC ADEQ [facility] Blood platelet mean volumeOr dered By: Daryl Luz on 11-30-2022 Platelet mean volume (Bld) [Entitic vol] 10.3 fL 6.2-12.0 [facility] Determination of erythrocyte mean corpuscular volume (MCV)Ordered By: Daryl Luz on 11-30-2022 MCV (RBC) [Entitic vol] 98.7 fL 80-94 [facility] Hematocrit Auto (Bld) [Volum e fraction]Ordered By: Daryl Luz on 11-30-2022 Hematocrit (Bld) [Volume fraction] 38.6 % 40-54 [facility] - Chemistry and C hemistry - challengeOrdered By: Daryl Luz on 11-30-2022 CO2 [Moles/Vol] 27.0 mmol/L 21.0-32.0 [facility] Urea nitrogen/Creatinine [Mass ratio] 18.8 mg/mg 10-20 [facility] - Hematology and Cell countsOrdered By: Daryl Luz on 11-30-2022 Anisocytosis Ql (Bld) 2+ [facility] Erythrocyte distribution width (RBC) [Entitic vol] 65.3 fL 35.1-43.9 [facility] Erythrocyte distribution width (RBC) [Ratio] 18.1 % 11.6-14.6 [facility] Immature granulocytes/100 WBC (Bld) 1.900 % 0.0-0.9 [facility] Comment on above: IG% - Immature Granu locytes (promyelocytes, myelocytes and metamyelocytes) > 1% indicates that a LEFT SHIFT is Present. MCH (RBC) [Entitic mass] 30.9 pg 27.0-32.0 [facility] Nucleated RBC/100 WBC (Bld) [Ratio] 0 % 0-5 [facility] MCHC Auto (RBC) [Mass/Vol]Or dered By: Daryl Luz on 11-30-2022 MCHC (RBC) [Mass/Vol] 31.3 g/dL 32-36 [facility] No Panel InformationOrdered By: Daryl Luz on 11-30-2022 Estimated GFR (MDRD) Amer 85 mL/min >60 [facility] Comment on above: GFR Calc Estimated GFR (MDRD) Non-Af Amer 70 mL/min >60 [facility] Comment on above: Non- GFR Calc Platelets bldOrdered By: Roverto Luz on 11-30-2022 Platelets (Bld) [#/Vol] 115 10*3/uL 150-450 [facility] Serum or plasma albumin galdino urement (mass/volume)Ordered By: Daryl Luz on 11-30-2022 Albumin [Mass/Vol] 3.1 g/dL 3.2-5.0 [facility] Serum or plasma calcium galdino urement (mass/volume)Ordered By: Daryl Luz on 11-30-2022 Calcium [Mass/Vol] 8.9 mg/dL 8.5-10.1 [facility] Serum or plasma creatinine m easurement (mass/volume)Ordered By: Daryl Luz on 11-30-2022 Creatinine [Mass/Vol] 1.12 mg/dL 0.70-1.30 [facility] Comment on above: The validity of the calculated GFR & GFRAA in patients over 70 years has not been determined. Clinical correlation is essential. Serum or plasma urea nitroge n measurement (mass/volume)Ordered By: Daryl Luz on 11-30-2022 Urea nitrogen [Mass/Vol] 21 mg/dL 7-18 [facility] Thin prep Papanicolaou smear with manual screeningOrdered By: Daryl Luz on 11-30-2022 Thin prep Papanicolaou smear with manual screening 7 5-15 [facility] Absolute lymphocyte countOrd ered By: Daryl Luz on 10-19-2022 Lymphocytes Auto (Unsp spec) [#/Vol] 0.85 10*3/uL 0.83-4.51 [facility] Basophil percentageOrdered B y: Daryl Luz on 10-19-2022 Basophils/100 WBC (Bld) 0.8 % 0-1 [facility] Chloride [Moles/Vol] 113 mmol/L 98-107 [facility] Eosinophils/100 WBC (Bld) 4.2 % 0-5 [facility] Glucose [Mass/Vol] 179 mg/dL 74-106 [facility] Comment on above: Fasting Glucose resu lt greater than or equal to 126 mg/dL suggests DIABETES MELLITUS per A.D.A. criteria. Neutrophils (Bld) [#/Vol] 2.4 10*3/uL 2.0-7.7 [facility] Neutrophils/100 WBC (Bld) 63.3 % 47-70 [facility] Potassium [Moles/Vol] 4.3 mmol/L 3.5-5.1 [facility] Sodium [Moles/Vol] 141 mmol/L 136-145 [facility] WBC (Bld) [#/Vol] 3.8 10*3/uL 4.4-11.0 [facility] Blood erythrocytes count (nu mber/volume)Ordered By: Daryl Luz on 10-19-2022 RBC (Bld) [#/Vol] 3.68 10*6/uL 4.6-6.2 [facility] Blood hemoglobin measurement (mass/volume)Ordered By: Daryl Luz on 10-19-2022 Hemoglobin (Bld) [Mass/Vol] 10.2 g/dL 13.0-16.5 [facility] Blood lymphocytes/100 leukoc ytesOrdered By: Daryl Luz on 10-19-2022 Lymphocytes/100 WBC (Bld) 22.3 % 19-41 [facility] Blood manual differential co mment interpretation (narrative result)Ordered By: Daryl Luz on 10-19-2022 Manual differential comment Mejia (Bld) [Interp] SCANNED [facility] Blood monocytes/100 leukocyt esOrdered By: Daryl Luz on 10-19-2022 Monocytes/100 WBC (Bld) 8.9 % 0-10 [facility] Blood platelet mean volumeOr dered By: Daryl Luz on 10-19-2022 Platelet mean volume (Bld) [Entitic vol] 11.1 fL 6.2-12.0 [facility] Determination of erythrocyte mean corpuscular volume (MCV)Ordered By: Daryl Luz on 10-19-2022 MCV (RBC) [Entitic vol] 96.2 fL 80-94 [facility] Hematocrit Auto (Bld) [Volum e fraction]Ordered By: Daryl Luz on 10-19-2022 Hematocrit (Bld) [Volume fraction] 35.4 % 40-54 [facility] - Chemistry and C hemistry - challengeOrdered By: Daryl Luz on 10-19-2022 CO2 [Moles/Vol] 27.0 mmol/L 21.0-32.0 [facility] Urea nitrogen/Creatinine [Mass ratio] 22.4 mg/mg 10-20 [facility] - Hematology and Cell countsOrdered By: Daryl Luz on 10-19-2022 Anisocytosis Ql (Bld) 2+ [facility] Erythrocyte distribution width (RBC) [Entitic vol] 75.2 fL 35.1-43.9 [facility] Erythrocyte distribution width (RBC) [Ratio] 21.4 % 11.6-14.6 [facility] Immature granulocytes/100 WBC (Bld) 0.500 % 0.0-0.9 [facility] Comment on above: IG% - Immature Granu locytes (promyelocytes, myelocytes and metamyelocytes) > 1% indicates that a LEFT SHIFT is Present. MCH (RBC) [Entitic mass] 27.7 pg 27.0-32.0 [facility] Nucleated RBC/100 WBC (Bld) [Ratio] 0 % 0-5 [facility] MCHC Auto (RBC) [Mass/Vol]Or dered By: Daryl Luz on 10-19-2022 MCHC (RBC) [Mass/Vol] 28.8 g/dL 32-36 [facility] Macrocytes detectionOrdered By: Daryl Luz on 10-19-2022 Macrocytes Ql (Bld) 1+ [facility] No Panel InformationOrdered By: Daryl Luz on 10-19-2022 Estimated GFR (MDRD) Amer 99 mL/min >60 [facility] Comment on above: GFR Calc Estimated GFR (MDRD) Non-Af Amer 82 mL/min >60 [facility] Comment on above: Non- GFR Calc Platelets bldOrdered By: Roverto Luz on 10-19-2022 Platelets (Bld) [#/Vol] 107 10*3/uL 150-450 [facility] Serum or plasma albumin galdino urement (mass/volume)Ordered By: Daryl Luz on 10-19-2022 Albumin [Mass/Vol] 3.3 g/dL 3.2-5.0 [facility] Serum or plasma calcium galdino urement (mass/volume)Ordered By: Daryl Luz on 10-19-2022 Calcium [Mass/Vol] 8.8 mg/dL 8.5-10.1 [facility] Serum or plasma creatinine m easurement (mass/volume)Ordered By: Daryl Luz on 10-19-2022 Creatinine [Mass/Vol] 0.98 mg/dL 0.70-1.30 [facility] Comment on above: The validity of the calculated GFR & GFRAA in patients over 70 years has not been determined. Clinical correlation is essential. Serum or plasma urea nitroge n measurement (mass/volume)Ordered By: Daryl Luz on 10-19-2022 Urea nitrogen [Mass/Vol] 22 mg/dL 7-18 [facility] Thin prep Papanicolaou smear with manual screeningOrdered By: Daryl Luz on 10-19-2022 Thin prep Papanicolaou smear with manual screening 1+ [facility] Thin prep Papanicolaou smear with manual screening 1 5-15 [facility] No Panel InformationOrdered By: Dr. Mason on 09-11-2022 Endomysial IgA Antibody Negative Negative [facility] Intrinsic Factor Antibody 1.1 AU/mL 0.0-1.1 [facility] Comment on above: Performed at: [facility] [address] [id number] Director: Jong Farmer PhD, Phone: [phone] at: BN - [facility] [address] [id number] Director: Gonzalo Bingham MD, Phone: [phone] Serum IgA measurement (units /volume)Ordered By: Dr. Mason on 09-11-2022 IgA Qn (S) 259 mg/dL 61-437 [facility] Serum or plasma C reactive p rotein measurement (mass/volume)Ordered By: Dr. Mason on 09-11-2022 CRP [Mass/Vol] mg/L 0.0-3.0 [facility] Comment on above: C-Reactive Protein ( CRP) provides useful information for thediagnosis, therapy and monitoring of inflammatory processesand associated diseases. For the evaluation of Relative Riskfor Cardiovascular Disease, a High Sensitivity CRP (HSCRP)should be ordered. Serum parietal cell antibody assay (units/volume)Ordered By: Dr. Mason on 09-11-2022 Parietal cell Ab Qn (S) 107.3 Units 0.0-20.0 [facility] Comment on above: Negative 0.0 - 20.0 Equivocal 20.1 - 24.9 Positive >24.9Parietal Cell Antibodies are found in 90% of patientswith pernicious anemia and 30% of first degreerelatives with pernicious anemia. Serum tissue transglutaminas e IgA antibody assay (units/volume)Ordered By: Dr. Mason on 09-11-2022 tTG IgA Qn (S) <2 U/mL 0-3 [facility] Comment on above: Negative 0 - 3 Weak Positive 4 - 10 Positive >10 Tissue Transglutaminase (tTG) has been identified as the endomysial antigen. Studies have demonstr- ated that endomysial IgA antibodies have over 99% specificity for gluten sensitive enteropathy. Absolute lymphocyte countOrd ered By: Dr. Monsalve on 09-08-2022 Lymphocytes Auto (Unsp spec) [#/Vol] 0.69 10*3/uL 0.83-4.51 [facility] Basophil percentageOrdered B y: Dr. Monsalve on 09-08-2022 Basophils/100 WBC (Bld) 0.6 % 0-1 [facility] Eosinophils/100 WBC (Bld) 5.8 % 0-5 [facility] Neutrophils (Bld) [#/Vol] 2.4 10*3/uL 2.0-7.7 [facility] Neutrophils/100 WBC (Bld) 67.0 % 47-70 [facility] WBC (Bld) [#/Vol] 3.6 10*3/uL 4.4-11.0 [facility] Blood erythrocytes count (nu mber/volume)Ordered By: Dr. Monsalve on 09-08-2022 RBC (Bld) [#/Vol] 3.10 10*6/uL 4.6-6.2 [facility] Blood hemoglobin measurement (mass/volume)Ordered By: Dr. Monsalve on 09-08-2022 Hemoglobin (Bld) [Mass/Vol] 8.2 g/dL 13.0-16.5 [facility] Blood lymphocytes/100 leukoc ytesOrdered By: Dr. Monsalve on 09-08-2022 Lymphocytes/100 WBC (Bld) 19.1 % 19-41 [facility] Blood monocytes/100 leukocyt esOrdered By: Dr. Monsalve on 09-08-2022 Monocytes/100 WBC (Bld) 7.5 % 0-10 [facility] Blood platelet mean volumeOr dered By: Dr. Monsalve on 09-08-2022 Platelet mean volume (Bld) [Entitic vol] 10.2 fL 6.2-12.0 [facility] Determination of erythrocyte mean corpuscular volume (MCV)Ordered By: Dr. Monsalve on 09-08-2022 MCV (RBC) [Entitic vol] 91.3 fL 80-94 [facility] Hematocrit Auto (Bld) [Volum e fraction]Ordered By: Dr. Monsalve on 09-08-2022 Hematocrit (Bld) [Volume fraction] 28.3 % 40-54 [facility] Hemoglobin in reticulocytes (mass per reticulocyte)Ordered By: Dr. Monsalve on 09-08-2022 Hemoglobin (Reticulocytes) [Entitic mass] 26.4 pg 30-35 [facility] Iron measurement (mass/mass) Ordered By: Dr. Monsalve on 09-08-2022 Iron (Unsp spec) [Mass/Mass] 25 ug/dL 65-175 [facility] Laboratory - Chemistry and C hemistry - challengeOrdered By: Dr. Monsalve on 09-08-2022 Cobalamin (Vitamin B12) [Mass/Vol] 207 pg/mL 211-911 [facility] - Hematology and Cell countsOrdered By: Dr. Monsalve on 09-08-2022 Erythrocyte distribution width (RBC) [Entitic vol] 54.1 fL 35.1-43.9 [facility] Erythrocyte distribution width (RBC) [Ratio] 16.2 % 11.6-14.6 [facility] Immature granulocytes/100 WBC (Bld) 0.000 % 0.0-0.9 [facility] Comment on above: IG% - Immature Granu locytes (promyelocytes, myelocytes and metamyelocytes) > 1% indicates that a LEFT SHIFT is Present. MCH (RBC) [Entitic mass] 26.5 pg 27.0-32.0 [facility] Nucleated RBC/100 WBC (Bld) [Ratio] 0 % 0-5 [facility] MCHC Auto (RBC) [Mass/Vol]Or dered By: Dr. Monsalve on 09-08-2022 MCHC (RBC) [Mass/Vol] 29.0 g/dL 32-36 [facility] No Panel InformationOrdered By: Dr. Monsalve on 09-08-2022 Immature Platelet Fraction 3.5 % 1.0-7.9 [facility] Comment on above: Low PLT + Low IPF wheat ggest a bone marrow production disorderLow PLT + high IPF suggests peripheral destruction(e.g.ITP, TTP, HIT, DIC, autoimmune) or bone marrow recoveryTrending of serial IPF measurements is recommended when evaluating for bone marrow responesValue above normal range indicates an increase in RBC cellular response from bone marrow. Immature Reticulocyte Fraction 15.00 % 3.00-15.90 [facility] Reticulocyte Count 1.50 % 0.5-1.5 [facility] Total Iron Binding Capacity 424 ug/dL 250-450 [facility] Platelets bldOrdered By: Dr. Monsalve on 09-08-2022 Platelets (Bld) [#/Vol] 105 10*3/uL 150-450 [facility] Serum or plasma ferritin hillary surement (mass/volume)Ordered By: Dr. Monsalve on 09-08-2022 Ferritin [Mass/Vol] 6 ng/mL 26-388 [facility] Serum or plasma folate measu rement (mass/volume)Ordered By: Dr. Monsalve on 09-08-2022 Folate [Mass/Vol] 12.20 ng/mL 3.1-55.4 [facility] Serum or plasma iron saturat ion measurement (mass fraction)Ordered By: Dr. Monsalve on 09-08-2022 Iron saturation [Mass fraction] 5.9 % 15.0-55.0 [facility] No Panel InformationOrdered By: Dr. Luz on 09-03-2022 Nasal Screen MRSA/MSSA [facility] Absolute lymphocyte countOrd ered By: Dr. Luz on 09-01-2022 Lymphocytes Auto (Unsp spec) [#/Vol] 0.90 10*3/uL 0.83-4.51 [facility] Basophil percentageOrdered B y: Dr. Luz on 09-01-2022 Basophils/100 WBC (Bld) 0.6 % 0-1 [facility] Chloride [Moles/Vol] 114 mmol/L 98-107 [facility] Eosinophils/100 WBC (Bld) 7.2 % 0-5 [facility] Glucose [Mass/Vol] 124 mg/dL 74-106 [facility] Comment on above: Fasting Glucose resu lt from 100 to 125 mg/dL suggests IMPAIRED HOMEOSTASIS per A.D.A. criteria. Neutrophils (Bld) [#/Vol] 2.1 10*3/uL 2.0-7.7 [facility] Neutrophils/100 WBC (Bld) 57.8 % 47-70 [facility] Potassium [Moles/Vol] 4.5 mmol/L 3.5-5.1 [facility] Sodium [Moles/Vol] 145 mmol/L 136-145 [facility] WBC (Bld) [#/Vol] 3.6 10*3/uL 4.4-11.0 [facility] Blood erythrocytes count (nu mber/volume)Ordered By: Dr. Luz on 09-01-2022 RBC (Bld) [#/Vol] 3.08 10*6/uL 4.6-6.2 [facility] Blood hemoglobin measurement (mass/volume)Ordered By: Dr. Luz on 09-01-2022 Hemoglobin (Bld) [Mass/Vol] 8.2 g/dL 13.0-16.5 [facility] Blood lymphocytes/100 leukoc ytesOrdered By: Dr. Luz on 09-01-2022 Lymphocytes/100 WBC (Bld) 25.0 % 19-41 [facility] Blood monocytes/100 leukocyt esOrdered By: Dr. Luz on 09-01-2022 Monocytes/100 WBC (Bld) 8.6 % 0-10 [facility] Blood platelet mean volumeOr dered By: Dr. Luz on 09-01-2022 Platelet mean volume (Bld) [Entitic vol] 10.8 fL 6.2-12.0 [facility] Determination of erythrocyte mean corpuscular volume (MCV)Ordered By: Dr. Luz on 09-01-2022 MCV (RBC) [Entitic vol] 91.2 fL 80-94 [facility] Hematocrit Auto (Bld) [Volum e fraction]Ordered By: Dr. Luz on 09-01-2022 Hematocrit (Bld) [Volume fraction] 28.1 % 40-54 [facility] Laboratory - Chemistry and C hemistry - challengeOrdered By: Dr. Luz on 09-01-2022 CO2 [Moles/Vol] 26.0 mmol/L 21.0-32.0 [facility] Urea nitrogen/Creatinine [Mass ratio] 20.2 mg/mg 10-20 [facility] - Chemistry and C hemistry - challengeOrdered By: Dr. Villagomez on 09-01-2022 Magnesium [Mass/Vol] 2.1 mg/dL 1.6-2.6 [facility] - Hematology and Cell countsOrdered By: Dr. Luz on 09-01-2022 Erythrocyte distribution width (RBC) [Entitic vol] 52.8 fL 35.1-43.9 [facility] Erythrocyte distribution width (RBC) [Ratio] 15.8 % 11.6-14.6 [facility] Immature granulocytes/100 WBC (Bld) 0.800 % 0.0-0.9 [facility] Comment on above: IG% - Immature Granu locytes (promyelocytes, myelocytes and metamyelocytes) > 1% indicates that a LEFT SHIFT is Present. MCH (RBC) [Entitic mass] 26.6 pg 27.0-32.0 [facility] Nucleated RBC/100 WBC (Bld) [Ratio] 0 % 0-5 [facility] MCHC Auto (RBC) [Mass/Vol]Or dered By: Dr. Luz on 09-01-2022 MCHC (RBC) [Mass/Vol] 29.2 g/dL 32-36 [facility] No Panel InformationOrdered By: Dr. Luz on 09-01-2022 Estimated GFR (MDRD) Amer 88 mL/min >60 [facility] Comment on above: GFR Calc Estimated GFR (MDRD) Non-Af Amer 72 mL/min >60 [facility] Comment on above: Non- GFR Calc Platelets bldOrdered By: Dr. Luz on 09-01-2022 Platelets (Bld) [#/Vol] 112 10*3/uL 150-450 [facility] Serum or plasma albumin galdino urement (mass/volume)Ordered By: Dr. Luz on 09-01-2022 Albumin [Mass/Vol] 3.3 g/dL 3.2-5.0 [facility] Serum or plasma calcium galdino urement (mass/volume)Ordered By: Dr. Luz on 09-01-2022 Calcium [Mass/Vol] 8.9 mg/dL 8.5-10.1 [facility] Serum or plasma creatinine m easurement (mass/volume)Ordered By: Dr. Luz on 09-01-2022 Creatinine [Mass/Vol] 1.09 mg/dL 0.70-1.30 [facility] Comment on above: The validity of the calculated GFR & GFRAA in patients over 70 years has not been determined. Clinical correlation is essential. Serum or plasma urea nitroge n measurement (mass/volume)Ordered By: Dr. Luz on 09-01-2022 Urea nitrogen [Mass/Vol] 22 mg/dL 7-18 [facility] Thin prep Papanicolaou smear with manual screeningOrdered By: Dr. Luz on 09-01-2022 Thin prep Papanicolaou smear with manual screening 5 5-15 [facility] Whole blood hemoglobin A1c/t otal hemoglobin ratio (mass fraction)Ordered By: Dr. Luz on 09-01-2022 HbA1c (Bld) [Mass fraction] 6.7 % 3.8-5.6 [facility] Comment on above: Normal < 5.7 % Predi abetic 5.7 - 6.4 % Diabetic >or= 6.5 % Please note range changes. Basophil percentageon 2021 Bilirubin [Mass/Vol] 0.80 mg/dL 0.20-1.00 [facility] Work Phone: Comment on above: For patients on eltr ombopag therapy, use of Dimension [place] TBIL is not recommended. Cholesterol [Mass/Vol] 161 mg/dL <200 [facility] Work Phone: Comment on above: <200 mg/dL Desirable 200-240 mg/dL Borderline >240 mg/dL High Risk Protein [Mass/Vol] 7.3 g/dL 6.4-8.2 [facility] Work Phone: Triglyceride [Mass/Vol] 83 mg/dL <199 [facility] Work Phone: Comment on above: The drugs N-Acetylcy steine and Metamizole may falsely depress this assay.Serum Triglycerides Reference Interval Normal <150 mg/dL Borderline high 150 - 199 mg/dL High 200 - 499 mg/dL Very High > or = 500 mg/dL Direct bilirubinon 2 Bilirubin.direct [Mass/Vol] 0.22 mg/dL 0.00-0.30 [facility] Work Phone: Laboratory - Chemistry and C hemistry - challengeon 04-21-2022 ALP [Catalytic activity/Vol] 83 U/L 45-117 [facility] Work Phone: ALT [Catalytic activity/Vol] 28 U/L 16-61 [facility] Work Phone: Globulin (S) [Mass/Vol] 3.9 g/dL 2.2-4.2 [facility] Work Phone: No Panel Informationon 04-21 Prostate Specific Antigen Screen 0.70 ng/mL 0.00-4.00 [facility] Work Phone: Comment on above: This test was perfor med using the TPSA assay method for the[facility] chemistry system. Values obtained with differentassay methods cannot be used interchangably.When changing PSA assays in the course of monitoring apatient, additional sequential testing should be carriedout to confirm baseline values. Serum or plasma albumin galdino urement (mass/volume)on 04-21-2022 Albumin [Mass/Vol] 3.4 g/dL 3.2-5.0 [facility] Work Phone: Serum or plasma cholesterol in HDL measurement (mass/volume)on 04-21-2022 Cholesterol in HDL [Mass/Vol] 41 mg/dL >40 [facility] Work Phone: Comment on above: The drugs N-Acetylcy steine and Metamizole may falsely depress this assay. Reference Range HDL <40 mg/dL Low HDL Cholesterol HDL >or= 60 mg/dL High HDL Cholesterol Serum or plasma cholesterol in VLDL measurement (mass/volume)on 04-21-2022 Cholesterol in VLDL [Mass/Vol] 17 mg/dL 5-40 [facility] Work Phone: Serum or plasma low density lipoprotein (LDL) cholesterol measurement (mass/volume)on 04-21-2022 Cholesterol in LDL [Mass/Vol] 103 mg/dL 0-130 [facility] Work Phone: Thin prep Papanicolaou smear with manual screeningon 04-21-2022 Thin prep Papanicolaou smear with manual screening 21 U/L 15-37 [facility] Work Phone: Whole blood hemoglobin A1c/t otal hemoglobin ratio (mass fraction)on 04-21-2022 HbA1c (Bld) [Mass fraction] 6.9 % 3.8-5.6 [facility] Work Phone: Comment on above: Normal < 5.7 % Predi abetic 5.7 - 6.4 % Diabetic >or= 6.5 % Please note range changes. GLUCOSE, BLOOD (POC)on 03-24 Glucose [Mass/Vol] 132 mg/dL Abnormal 74 - 99 mg/dL [facility] Glucose [Mass/Vol] 118 mg/dL Abnormal 74 - 99 mg/dL [facility] Basophil percentageon 2021 Bilirubin [Mass/Vol] 0.80 mg/dL 0.20-1.00 [facility] Work Phone: Comment on above: For patients on eltr ombopag therapy, use of Dimension [place] TBIL is not recommended. Chloride [Moles/Vol] 110 mmol/L 98-107 [facility] Work Phone: Glucose [Mass/Vol] 130 mg/dL 74-106 [facility] Work Phone: Comment on above: Fasting Glucose resu lt greater than or equal to 126 mg/dL suggests DIABETES MELLITUS per A.D.A. criteria. Potassium [Moles/Vol] 4.5 mmol/L 3.5-5.1 [facility] Work Phone: Comment on above: Slight Hemolysis, Re sult may be falsely increased. Protein [Mass/Vol] 7.3 g/dL 6.4-8.2 [facility] Work Phone: Sodium [Moles/Vol] 143 mmol/L 136-145 [facility] Work Phone: Laboratory - Chemistry and C hemistry - challengeon 03-09-2022 ALP [Catalytic activity/Vol] 87 U/L 45-117 [facility] Work Phone: ALT [Catalytic activity/Vol] 26 U/L 16-61 [facility] Work Phone: CO2 [Moles/Vol] 26.0 mmol/L 21.0-32.0 [facility] Work Phone: Globulin (S) [Mass/Vol] 3.9 g/dL 2.2-4.2 [facility] Work Phone: Urea nitrogen/Creatinine [Mass ratio] 18.6 mg/mg 10-20 [facility] Work Phone: No Panel Informationon 03-09 Estimated GFR (MDRD) Amer 84 mL/min >60 [facility] Work Phone: Comment on above: GFR Calc Estimated GFR (MDRD) Non-Af Amer 70 mL/min >60 [facility] Work Phone: Comment on above: Non- GFR Calc Serum or plasma albumin galdino urement (mass/volume)on 03-09-2022 Albumin [Mass/Vol] 3.4 g/dL 3.2-5.0 [facility] Work Phone: Serum or plasma albumin/glob ulin mass ratioon 03-09-2022 Albumin/Globulin [Mass ratio] 0.9 {ratio} 0.9-2.4 [facility] Work Phone: Serum or plasma calcium galdino urement (mass/volume)on 03-09-2022 Calcium [Mass/Vol] 9.1 mg/dL 8.5-10.1 [facility] Work Phone: Serum or plasma creatinine m easurement (mass/volume)on 03-09-2022 Creatinine [Mass/Vol] 1.13 mg/dL 0.70-1.30 [facility] Work Phone: Comment on above: The validity of the calculated GFR & GFRAA in patients over 70 years has not been determined. Clinical correlation is essential. Serum or plasma urea nitroge n measurement (mass/volume)on 03-09-2022 Urea nitrogen [Mass/Vol] 21 mg/dL 7-18 [facility] Work Phone: Thin prep Papanicolaou smear with manual screeningon 03-09-2022 Thin prep Papanicolaou smear with manual screening 26 U/L [facility] Work Phone: Comment on above: Slight Hemolysis, Re sult may be falsely increased. Thin prep Papanicolaou smear with manual screening 7 5-15 [facility] Work Phone: Established Visit (Orthopaed ic Surgery)on 09-02-2021 Established Visit (Orthopaedic Surgery) Diagnoses/Problems Assessed Left knee pain, unspecified chronicity (699.46) (K85.562) Patient Discussion/Summary By signing my name below, I, Hakan Padilla, attest that this documentation has been prepared under the direction and in the presence of Dr. Esther Valle. All medical record entries made by the Scribe were at my direction and personally dictated by me. I have reviewed the chart and agree that the record accurately reflects my personal performance of the history, physical exam, discussion and plan. Provider Impressions Assessment?left knee DJD, osteochondral defect and loose bodies, right leg weakness numbness and tingling Plan?patient had a very traumatic experience following a retinal surgery he unfortunately needed overnight intubation and monitoring in the ICU because he was unable to manage to maintain his saturations and had a very complicated course for a very short retinal surgery. This does worry me greatly about performing any type of elective arthroplasty. I think he is a high risk candidate especially for an elective surgery. My main concern is anesthesia and potential postanesthesia complications. 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 It sounds like the anesthesiologist at the [facility] did not recommend he undergo elective arthroplasty because of the anesthesia concerns and complications. I did discuss with the patient if he does wish to go through with his knee arthroplasty we may consider having it done at a larger tertiary facility where there is more resources available if he is to have any postoperative complications. He would need clearance from his retinal surgeon before we can proceed with any type of arthroplasty will rerequest dates on his knee surgery and he is in a think about referral for second opinion on his knee to another surgeon who operates a larger facility This note has been created with voice recognition software. Please be aware that there may be grammatical or contextual errors due to the use of the software. Chief Complaint [facility] follow-up) left knee OA, patella osteochondral defect, and loose bodies. He was previously seen in office in 04/2021 in which discussion of left total knee arthroplasty took place, however other healthcare needs to precedence. He states he just had surgery in 07/2021 for a detached retina of the left eye. He has limitations with his vision currently and continues to use a walker for ambulation aid. He denies any significant changes in his knee condition at this time. History of Present Illness Patient is a pleasant 60-year-old male presenting today [...] to use a walker for ambulation aid. States he was experiencing leg numbness approximately 3 days following surgery in which he was dealing with pneumonia and an infection that was treated by antibiotics and seems to be doing much better. He has continued to experience pain, discomfort, and problems with his vision. With regards to his left knee, patient has continued to be quite [...] this by pain management as he has been symptomatic for over 2 years. He is not pleased with the treatment for his back as he has continued to be quite symptomatic despite trying two injections. States he does not believe it is a mechanical injury, but a nerve injury. Patient states he is hopeful that surgical intervention for his knee will offer substantial improvement for his back pain. Review of Systems Constitutional: no fever, no chills, not feeling tired, no recent weight gain and no recent weight loss. ENT: no nosebleeds. Cardiovascular: no chest pain. Respiratory: no shortness of breath and no cough. Gastrointestinal: no abdominal pain, no nausea, no diarrhea and no vomiting. Musculoskeletal: no arthralgias and as noted in HPI. Integumentary: no rashes and no skin wound. Neurological: no headache. Psychiatric: no depression and no sleep disturbances. Endocrine: no muscle cramps. Hematologic/Lymph (more content not included)... Normal [place] Tobacco Screening.on 022 Tobacco use status [facility] a) Yes [facility] [address] Work Phone: Clinical Event Note-+ Urine Culture: Proteus mirabilison 07-23-2021 Clinical Event Note-+ Urine Culture: Proteus mirabilis Clinical Event: Clinical Event Note: Topic+ Urine Culture: Proteus mirabilis Details Post ED Discharge Follow Up: 07/23/21 1440 Chart reviewed. Attempted to contact patient for well check re: + result. Patient prescribed Levaquin in ED which is susceptible to treating the organism. Voicemail with call back number at . RAJESH Vela, RN Electronic Signatures: Denise Blair (RN) (Signed 23-Jul-2021 14:42) Authored: Clinical Event Note Last Updated: 23-Jul-2021 14:42 by Denise Blair (RN) Normal [facility] BLOOD CULTURE, BACTERIALon 0 07-20-2021 BLOOD CULTURE, BACTERIAL PATIENT: KHOA CONNORS LOCATION: [facility]#: [id number] : 56 AGE: SEX: M ORDERED BY: JEFF NUNEZ SOURCE: Blood COLLECTED: 07/20/21 15:15 ANTIBIOTICS AT [facility].: RECEIVED : 07/20/21 20:25 SITE: rt forearm R E S U L T S BLOOD CULTURE, BACTERIAL FINAL 07/25/21 21:42 No Growth at 1 days No Growth at 2 days No Growth at 3 days No Growth at 4 days NO GROWTH - FINAL REPORT Normal [facility] Comment on above: Performed By: #### B NICAC #### [facility] [id number] [place] [address] BLOOD CULTURE, BACTERIAL PATIENT: KHOA CONNORS LOCATION: [facility]#: [id number] : 56 AGE: SEX: M ORDERED BY: JEFF NUNEZ SOURCE: Blood COLLECTED: 07/20/21 15:15 ANTIBIOTICS AT [facility].: RECEIVED : 07/20/21 20:25 SITE: rt forearm R E S U L T S BLOOD CULTURE, BACTERIAL FINAL 07/25/21 21:42 No Growth at 1 days No Growth at 2 days No Growth at 3 days No Growth at 4 days NO GROWTH - FINAL REPORT Normal [facility] Comment on above: Performed By: #### B LDC #### [facility] [id number] [place] [address] CBC AND DIFFERENTIALon 07-20 DIFFERENTIAL SEE MANUAL DIFF [facility] Comment on above: Performed By: #### C BCDF #### [address] [address] Erythrocyte distribution width (RBC) [Ratio] 15.6 % High 11.5 - 14.5 [facility] Comment on above: Performed By: #### C BCDF #### [address] [address] Hematocrit (Bld) [Volume fraction] 37.9 % Low 41.0 - 52.0 [facility] Comment on above: Performed By: #### C BCDF #### [address] [address] Hemoglobin (Bld) [Mass/Vol] 12.3 g/dL Low 13.5 - 17.5 [facility] Comment on above: Performed By: #### C BCDF #### [address] [address] MCHC (RBC) [Mass/Vol] 32.3 g/dL Normal 32.0 - 36.0 [facility] Comment on above: Performed By: #### C BCDF #### [address] [address] MCV (RBC) [Entitic vol] 96 fL Normal 80 - 100 [facility] Comment on above: Performed By: #### C BCDF #### [address] [address] Platelets (Bld) [#/Vol] 84 10*3/uL Low 150 - 450 [facility] Comment on above: Performed By: #### C BCDF #### [address] [address] RBC 3.95 x10E12/L Low 4.50 - 5.90 [facility] Comment on above: Performed By: #### C BCDF #### [address] [address] WBC (Bld) [#/Vol] 6.2 10*3/uL Normal 4.4 - 11.3 [facility] Comment on above: Performed By: #### C BCDF #### [address] [address] CHEST 1 VIEWon 07-20-2021 CHEST 1 VIEW Patient Name: KHOA CONNORS STUDY: CHEST 1 VIEW; ; 07/20/2021 3:28 pm INDICATION: fever and tachy . COMPARISON: 06/16/2019 ACCESSION NUMBER(S): [id number] ORDERING CLINICIAN: EJFF NUNEZ FINDINGS: The cardiac silhouette is stable for the technique. Mild left basilar opacities which may represent atelectasis or infiltrate. Underlying small left effusion of excluded. Findings stable to slightly more prominent when compared to previous exam. The remainder of the lung wylie are clear bilaterally. No pneumothorax.. IMPRESSION: Stable to slight interval increase in amount of left basilar atelectasis or infiltrate when compared to previous exam. Clinical correlation and follow-up with PA and lateral chest x-rays recommended to document resolution. If there is clinical concern for acute aortic pathology or pulmonary embolic disease, further evaluation with chest CT is suggested for better assessment. Electronically signed by: RAJWINDER RENDON MD Normal [facility] COMPREHENSIVE PANELon 2021 Albumin [Mass/Vol] 3.0 g/dL Low 3.4 - 5.0 [facility] Comment on above: Performed By: #### C MP #### [address] [address] ALP [Catalytic activity/Vol] 69 U/L Normal 33 - 136 [facility] Comment on above: Performed By: #### C MP #### [address] [address] ALT [Catalytic activity/Vol] 16 U/L Normal 10 - 52 [facility] Comment on above: Result Comment: Joselin ents treated with Sulfasalazine may generate falsely decreased results for ALT. Performed By: #### C MP #### [address] [address] Anion gap [Moles/Vol] 11 mmol/L Normal 10 - 20 [facility] Comment on above: Performed By: #### C MP #### [address] [address] AST [Catalytic activity/Vol] 20 U/L Normal 9 - 39 [facility] Comment on above: Performed By: #### C MP #### [address] [address] Bilirubin [Mass/Vol] 1.3 mg/dL High 0.0 - 1.2 [facility] Comment on above: Performed By: #### C MP #### [address] [address] Calcium [Mass/Vol] 8.9 mg/dL Normal 8.6 - 10.3 [facility] Comment on above: Performed By: #### C MP #### [address] [address] Chloride [Moles/Vol] 110 mmol/L High 98 - 107 [facility] Comment on above: Performed By: #### C MP #### [address] [address] Creatinine [Mass/Vol] 1.04 mg/dL Normal 0.50 - 1.30 [facility] Comment on above: Performed By: #### C MP #### [address] [address] GFR/1.73 sq M.predicted among non-blacks MDRD (S/P/Bld) [Vol rate/Area] 81 mL/min/{1.73_m2} Abnormal >90 [facility] Comment on above: Result Comment: CALC ULATIONS OF ESTIMATED GFR ARE PERFORMED USING THE 2020 CKD-EPI STUDY REFIT EQUATION WITHOUT THE RACE VARIABLE FOR THE IDMS-TRACEABLE CREATININE METHODS. https://jasn.asnjournals.org/content//ASN.2020 297808 Performed By: #### C MP #### [address] [address] Glucose [Mass/Vol] 179 mg/dL High 74 - 99 [facility] Comment on above: Performed By: #### C MP #### [address] [address] HCO3 (Bld) [Moles/Vol] 27 mmol/L Normal 21 - 32 [facility] Comment on above: Performed By: #### C MP #### [address] [address] Potassium [Moles/Vol] 3.8 mmol/L Normal 3.5 - 5.3 [facility] Comment on above: Performed By: #### C MP #### [address] [address] Protein [Mass/Vol] 5.6 g/dL Low 6.4 - 8.2 [facility] Comment on above: Performed By: #### C MP #### [address] [address] Sodium [Moles/Vol] 144 mmol/L Normal 136 - 145 [facility] Comment on above: Performed By: #### C MP #### [address] [place] [address] Urea nitrogen [Mass/Vol] 21 mg/dL Normal 6 - 23 [facility] Comment on above: Performed By: #### C MP #### [address] [place] [address] Covid 19 Resultson 2 SARS-CoV-2 (COVID-19) RNA MED+probe Ql (Unsp spec) NEGATIVE COVID-19 Test Coronaviruses are common world-wide and are the cause of many common colds. SARS-COV2 is a new coronavirus that began circulating worldwide in 2019 so we are calling it COVID-19. It has been estimated that four out of five patients with COVID-19 will recover at home without the need for medical attention. Symptoms of COVID-19 may include cough, fever, shortness of breath, loss of taste or smell and other flu-like symptoms including chills, sore muscles, sore throat, and headache. Severe illness is more common in older people and people with other health problems such as high blood pressure, obesity, and immune system problems. If the test is positive, you have COVID-19. You will be contacted by the ordering physicians office and instructed to remain on home isolation, in accordance with CDC guidelines. You may also be contacted by the [facility] to see if any of your close contacts may have been exposed to the virus and need to quarantine. If the test is negative, you likely do not have COVID-19 at this time, but you still may have a different illness that can spread to other people (like Influenza, or the Flu) and could still be at risk for getting COVID-19. We recommend that you stay away from other people to limit the spread of illness until your symptoms are improving and you are fever-free for 24 hours without the use of fever lowering medications such as acetaminophen or ibuprofen. No test is 100% accurate so if you are still concerned you may have COVID-19, talk to your doctor about the need to continue to stay away from others. Medicines Unless your provider told you not to use the following: Acetaminophen (Tylenol and others) is generally safe. Anti-inflammatory medications, such as Ibuprofen (Advil or Motrin) or Naproxen (Aleve) can also be used. Pdtm-ndh-wjubscp cough and cold medicines can be used according to the instructions on the package. Some fopq-wkx-fojcvkr medicines also contain acetaminophen. Make sure you are not taking more than your recommended dose. For those not hospitalized, there is no specific treatment available for this illness. Antibiotics do not treat Coronaviruses. Follow-Up Follow up with your doctor by scheduling a virtual visit or consider follow-up at one of our urgent care fever clinics. If you are having difficulty breathing, or are very weak and having difficulty standing, this is a medical emergency. Call 911 or have someone take you to the nearest emergency room immediately. If possible, wear a facemask. Additional guidance from the CDC for patients who tested POSITIVE for COVID-19 How to isolate: Isolate yourself in a specific room at home and limit your contact with others. Use a separate bathroom from other members of the household, when possible. Leave home only to get essential medical care. Do not go to work, school or public areas. Avoid using public transportation, ride-sharing, or taxis. Restrict contact with pets and other animals. If you must care for your pet or be around animals while you are sick, wash your hands before and after your interaction and wear a facemask. Make sure that shared spaces in the home have good airflow, such as by an air conditioner or an opened window, weather permitting. Personal Hygiene Procedures: Wear a face mask when in the same room as other people or pets. If a face mask interferes with your breathing, others should wear a mask when sharing space with you. Frequent hand-washing: wash your hands with soap and water for at least 20 seconds. If soap and water are not available, use alcohol-based hand bundle packer. Avoid touching your eyes, nose, and mouth with unwashed hands. Household Hygiene Procedures: Avoid sharing personal household items such as dishes, glassware, cups, eating utensils, towels or bedding with other people or pets in your home. After use, these items should be washed with soap and hot water. Disinfect all high-touch surfaces every day with antibacterial cleaning solutions such as Lysol wipes, bleach, cleansers, etc. High-touch surfaces include tabletops, doorknobs, bathroom fixtures, toilets, phones, keyboards, tablets and bedside tables. Immediately clean any surfaces that may have blood, poop or body fluids on them, using antibacterial cleaning solutions such as Lysol wipes, bleach, cleansers, etc. If clothing or bedding come into contact with blood, poop or body fluids, they should be washed immediately. Follow the directions on the laundry detergent and clothing labels but hot water is recommended when possible. Stopping home isolation precautions: If possible, consult your doctor before stopping home isolation precautions. According to the CDC, you can discontinue home isolation precautions when you have met both of these criteria: Your fever and respiratory symptoms have been gone for 24 annemarie (more content not included)... Normal [facility] INFLUENZA A/B, COVID 2019 PC R,SYMPTOMATICon 07-20-2021 INFLUENZA A, PCR Not detected Normal Not Detected [facility] Comment on above: Result Comment: Resp iratory virus testing is performed routinely by PCR for Influenza A/B and RSV. Not Detected results do not preclude Influenza A/B or RSV infections since the adequacy of sample collection or low viral burden may impact the clinical sensitivity of this test method. Performed By: #### B LDC #### [facility] [address] [place] [address] INFLUENZA B, PCR Not detected Normal Not Detected [facility] Comment on above: Result Comment: Resp iratory virus testing is performed routinely by PCR for Influenza A/B and RSV. Not Detected results do not preclude Influenza A/B or RSV infections since the adequacy of sample collection or low viral burden may impact the clinical sensitivity of this test method. Performed By: #### B LDC #### [facility] [address] [place] [address] SARS-CoV-2 (COVID-19) RNA MED+probe Ql (Unsp spec) Not detected Normal Not Detected [facility] Comment on above: Result Comment: . This test has received FDA Emergency Use Authorization (EUA) and has been verified by [facility]. This test is only authorized for the duration of time that circumstances exist to justify the authorization of the emergency use of in vitro diagnostic tests for the detection of SARS-CoV-2 virus and/or diagnosis of COVID-19 infection under section 564(b)(1) of the Act, 21 U.S.C. 360bbb-3(b)(1), unless the authorization is terminated or revoked sooner. [facility] is certified under CLIA-88 as qualified to perform high complexity testing. Testing is performed in the [facility] laboratory located at [address] [place] [address]. SARS-CoV-2/Flu/RSV Multiplex Test: Fact sheet for providers: https://www.fda.gov/media/122676/download Fact sheet for patients: https://www.fda.gov/media/803552/download Performed By: #### B LDC #### [facility] [address] [place] [id number] Lab Specimen Source Nasal, Nasopharyngeal [facility] Comment on above: Performed By: #### B LDC #### [facility] [address] [place] [address] DATE OF SYMPTOM ONSET [YYYYMMDD]? [id number] [facility] Comment on above: Performed By: #### B LDC #### [facility] [address] [place] [address] LACTATEon 07-20-2021 Lactate [Moles/Vol] 2.2 mmol/L High 0.4 - 2.0 [facility] Comment on above: Result Comment: Anastasiya puncture immediately after or during the administration of Metamizole may lead to falsely low results. Testing should be performed immediately prior to Metamizole dosing. Performed By: #### B LDC #### [facility] [address] [place] [address] Lactate [Moles/Vol] 2.7 mmol/L High 0.4 - 2.0 [facility] Comment on above: Result Comment: Anastasiya puncture immediately after or during the administration of Metamizole may lead to falsely low results. Testing should be performed immediately prior to Metamizole dosing. Performed By: #### L ACT #### [place] [address] MANUAL DIFFERENTIALon 2021 % BAND NEUTROPHIL 3.0 % Normal 0.0 - 5.0 [facility] Comment on above: Performed By: #### M DIFF #### [address] [address] % BASOPHIL 0.0 % Normal 0.0 - 2.0 [facility] Comment on above: Performed By: #### M DIFF #### [address] [address] % EOSINOPHIL 0.0 % Normal 0.0 - 6.0 [facility] Comment on above: Performed By: #### M DIFF #### [address] [address] % LYMPHOCYTE 6.0 % Normal 13.0 - 44.0 [facility] Comment on above: Performed By: #### M DIFF #### [address] [address] % MONOCYTE 2.0 % Normal 2.0 - 10.0 [facility] Comment on above: Performed By: #### M DIFF #### [address] [address] % SEG NEUTROPHIL 89.0 % Normal 40.0 - 80.0 [facility] Comment on above: Result Comment: Perc ent differential counts (%) should be interpreted in the context of the absolute cell counts (cells/L). Performed By: #### M DIFF #### [address] [address] ANC 5.71 x10E9/L Normal 1.20 - 7.70 [facility] Comment on above: Performed By: #### M DIFF #### [address] [address] BAND NEUTROPHIL 0.19 x10E9/L Normal 0.00 - 0.70 [facility] Comment on above: Performed By: #### M DIFF #### [address] [address] BASOPHIL 0.00 x10E9/L Normal 0.00 - 0.10 [facility] Comment on above: Performed By: #### M DIFF #### [address] [address] EOSINOPHIL 0.00 x10E9/L Normal 0.00 - 0.70 [facility] Comment on above: Performed By: #### M DIFF #### [address] [address] LYMPHOCYTE 0.37 x10E9/L Low 1.20 - 4.80 [facility] Comment on above: Performed By: #### M DIFF #### [place] [id number] MONOCYTE 0.12 x10E9/L Normal 0.10 - 1.00 [facility] Comment on above: Performed By: #### M DIFF #### [place] [address] SEG NEUTROPHIL 5.52 x10E9/L Normal 1.20 - 7.00 [facility] Comment on above: Performed By: #### M DIFF #### [address] [address] Provider Note - ED v3on Provider Note - ED v3 Provider Note: Chart Review: ED NOTES ED NOTES: HPI: Patient notes that July 17 he was seen by Dr. Kim ophthalmology from [facility] for procedure of a retinal detachment. He states that he was at home today when he attempted to get up out of his chair when his right leg gave out and he fell back into his chair. He states that his right leg has been chronically weak from an accident years ago. He states he has been having chills and suspects he might have a urinary tract infection from the Mccarthy catheter that was placed during the procedure. He notes that he occasionally has some episodes of shortness of breath since he was intubated but otherwise denies any nausea vomiting or chest pain. Denies any chronic medical history but also states he does not follow-up with her family doctor. ROS: All systems are negative other than as noted in HPI. Physical Exam I have reviewed the triage vital signs. Const: Well nourished, well developed, appears stated age, obese, no acute distress Eyes: PERRL, EOM intact, no conjunctival injection, vision grossly normal HENT: Neck supple without meningismus , Moist mucous membranes, no pharyengeal swelling or exudate CV: Regular rate and rhythm, Warm, well-perfused extremities. Chronic vascular changes to lower extremities ,chest non tender RESP: Lungs clear bilaterally, Unlabored respiratory effort GI: soft, non-tender, rounded, no masses : MSK: No gross deformities appreciated Back: Non tender, no pain with ROM Skin: Warm, dry. No rashes Neuro: Alert and oriented x4, GCS 15 , foam rubber fabricator II-XII grossly intact. Sensation and motor function of extremities grossly intact. Psych: Appropriate mood and affect. I have reviewed and confirmed nurses/medics notes for patient past, social and family history. Portions of this note were dictated by speech recognition. An attempt at proof reading was made to minimize errors. Minor errors in seat cover cutter may be present. HISTORY OF PRESENTING ILLNESS KHOA is a 60 year old Male and was seen by me at 20-Jul-2021 14:40 for a chief complaint of weakness (Brought to ED per [facility] squad from home c/o weakness and dysuria with fever and chills. Reports that he tried to stand up from a chair today and was too weak so he fell back into the chair and couldn't stand. Pt had surgery on L eye 6 days ago and was intubated at that time. Also had a mccarthy catheter. He reports that he is having burning with urination and trouble emptying his bladder.)(1). Triage Information: Most recent Vital Sign Value Date Temp (F): 101.1 07-20-2021 14:40 Temp (C): 38.3 07-20-2021 14:40 Heart Rate (beats/min): 123 07-20-2021 14:40 Respirations (breaths/min): 22 07-20-2021 14:40 SpO2 (%): 94 07-20-2021 14:40 BP Systolic (mm Hg): 117 07-20-2021 14:40 BP Diastolic (mm Hg): 62 07-20-2021 14:40 PAST MEDICAL HISTORY ALLERGIES/INTOLERANCES : Allergy Allergen: NKDA Type: Reaction: Allergen: Latex Type: Latex Reaction: Rash HEALTH HISTORY: No documented data. OUTPATIENT MEDICATIONS: Home Medications Review Status for Reconciliation: Complete Med Status: Patient Currently Takes Medications Drug Name: atropine 1% ophthalmic solution Instructions: 1 drop(s) to each affected eye 2 times a day Drug Name: prednisoLONE acetate 1% ophthalmic suspension Instructions: 1 drop(s) to each affected eye 4 times a day Drug Name: ciprofloxacin 0.3% ophthalmic solution Instructions: 1 drop(s) to each affected eye 4 times a day SIGNIFICANT EVENTS: Past Medical History Description:NONE PER PT Past Surgical History Description:NONE PER PT CRITICAL CARE RESULTS: Recent Lab Results: I have reviewed these laboratory results: Urinalysis with Culture if Indicated 20-Jul-2021 17:52:00 ResultValue Color, Urine Maryellen Reference Range: STRAW,YELLOW Appearance, Urine HAZY Specific Austin, Urine 1.028 pH, Urine 5.0 Protein, Urine 100(2+) A Glucose, Urine NEGATIVE Blood, Urine SMALL(1+) A Ketones, Urine 5(TRACE) A Bilirubin, Urine NEGATIVE Urobilinogen, Urine 2.0 H Nitrite, Urine Negative Leukocyte Esterase, Urine MODERATE(2+) A Urinalysis, Microscopic 20-Jul-2021 17:52:00 ResultValue White Cells >182 A WBC Clumps OCC Red Blood Cells 17 A Bacteria, Urine 4+ A Mucous 4+ Amorphous Crystals 1+ Lactate, Level Trending View [id number] 16:43:00 20-Jul-2021 15:15:00 Lactate, Level2.2 H 2.7 H Complete Blood Count + Differential 20-Jul-2021 15:15:00 ResultValue White Blood Cell Count 6.2 Red Blood Cell Count 3.95 L HGB 12.3 L HCT 37.9 L MCV 96 MCHC 32.3 PLT 84 L RDW-CV 15.6 H Differential Comment SEE MANUAL DIFF Comprehensive Metabolic Panel 20-Jul-2021 15:15:00 ResultValue Glucose, Serum 179 H NA 144 K 3.8 CL 110 H Bicarbonate, Serum 27 Anion Gap, Serum 11 BUN 21 CREAT 1.04 (more content not included)... Normal [facility] RED CELL MORPHOLOGYon 2021 RBC morphology finding Nom (Bld) NORMAL Normal [facility] Comment on above: Performed By: #### M ORP2 #### [address] [address] Risk Screen - Adult Emergenc yon 07-20-2021 Risk Screen - Adult Emergency Preferred Language: Preferred Language: Preferred Language for Discussing Health Care (patient/designee)Engl emeli Advanced Directives: Advance Directive/DNRno Family Violence Adult: Abuse Screen: Are you or have you been threatened or abused physically, emotionally, or sexually by anyoneno Learning Assessment (Patient): Learning Assessment (Patient): Patient is Able to be Assessed for Learningyes Factors Influencing Readiness to Learnacuteness of illness Factors that Impact Ability to Learnnone Devices/Methods Used to Communicatenone Learning Preferencesverbal instruction; written material Cultural Considerationsnone Developmental Considerationsnone Nondenominational Considerationsnone Learning Assessment (Other Learner): Learning Assessment (Other Learner): Other learner availableno Pressure Injury/TB/Substance: Pressure Injury: Pressure Injury Present on Admissionno Do you have a coughno Smoking Statusnever smoker Alcohol Usedenies Drug Usedenies Admission Risk Screen: Significant IndicatorsComplete CAGE: CAGE: Is this an injured patient at a Trauma Center ([facility]/[place]/[facility]/[place]/[facility]): no Electronic Signatures: Marla Castillo (DEREK) (Signed 20-Jul-2021 16:55) Authored: Preferred Language, Advanced Directives, Family Violence Adult, Learning Assessment (Patient), Learning Assessment (Other Learner), Pressure Injury/TB/Substance, Pressure Injury, CAGE Last Updated: 20-Jul-2021 16:55 by Marla Castillo (DEREK) [facility] Triage - EDon 07-20-2021 Triage - ED Quick Triage: The patient and/or guardian verbally acknowledges placement for services into the following (when Urgent Care Service hours are operating):emergency department Chart Review: ARRIVAL INFORMATION Mode of Arrival: ambulance Agency: [facility] Agency Name: [facility] CHIEF COMPLAINT KHOA CONNORS is a Male patient with a chief complaint of weakness (Brought to ED per [facility] squad from home c/o weakness and dysuria with fever and chills. Reports that he tried to stand up from a chair today and was too weak so he fell back into the chair and couldn't stand. Pt had surgery on L eye 6 days ago and was intubated at that time. Also had a mccarthy catheter. He reports that he is having burning with urination and trouble emptying his bladder.). Triage Date/Time: 20-Jul-2021 14:40 JOI: 3 Pain Rating (0-10): 3 = Mild Pain location: burning with urination Vital Signs: Temperature: 101.1F ( 38.3C) taken temporal Blood Pressure: 117/62 Mean: Heart Rate: 123 Respiratory Rate: 22 Pulse Oximetry: 94% on room air, no respiratory support. Weight: 330.6 pounds. Calculated 150.0 kg. Julio Coma Scale: Best Eye Response: (E4) spontaneous Best Motor Response: (M6) obeys commands Best Verbal Response: (V5) oriented Carpio Score: 15 Cough lasting greater than 3 weeks: no Allergies: yes Mask applied: yes Patient has homicidal thoughts: no Symptom Notes: . Symptoms Are POSITIVE For: weakness. Symptoms Are Negative For: blurred vision, chills, confusion, dehydration, diaphoresis, headache, loss of consciousness and nausea. Last Known Well: unknown Risk Screens Suicide Risk Screen In the Past Month: Have you wished you were or wished you could go to sleep and not wake up no In the Past Month: Have you had any actual thoughts of killing yourself no In Your Lifetime: Have you ever done anything, started to do anything, or prepared to do anything to end your life no Alva Fall Scale Screening Has the patient fallen before (or is the patient in the ED as a result of a fall) has not had a fall Does the patient have an impaired gait does not have impaired gait Is the patient cognitively impaired not cognitively impaired Interventions: rAtie Fall Interventions: LOW INTERVENTIONS: *patient oriented to surroundings and call system, * patient/family falls education completed and documented, *patients fall status communicated during bedside handoff, *whiteboard updated, *mode of toileting discussed with patient, *bed in low position with brakes locked, *call light in reach, * non-skid footwear TRAVEL HISTORY Travel History Coronavirus Screening: no exposure or symptoms Travel Exposure History: NO travel to International locations in the past 30 days PAIN Pain Scale Used: BESSIE Pain Rating (0-10): 3 = Mild Past Medical History: Past Medical History Reviewedyes Electronic Signatures: Marla Castillo (DEREK) (Signed 20-Jul-2021 14:44) Authored: Quick Triage, Risk Screens, Pain, Travel History, Chart Review, Scores, Past Medical History Last Updated: 20-Jul-2021 14:44 by Marla Castillo) [facility] 07-20-2021 AMORPHOUS CRYSTAL 1+ /HPF Normal [facility] Comment on above: Performed By: #### U AMIC #### [address] [address] BACTERIA 4+ /HPF Abnormal [facility] Comment on above: Performed By: #### U AMIC #### [address] [address] Mucus Ql (Urine sed) 4+ /LPF Normal [facility] Comment on above: Performed By: #### U AMIC #### [address] [address] RBC 17 /HPF Abnormal 0-5 [facility] Comment on above: Performed By: #### U AMIC #### [place] [id number] WBC (U) [#/Vol] /uL Abnormal 0-5 [facility] Comment on above: Performed By: #### U AMIC #### [place] [address] WBC CLUMPS OCC Normal [facility] Comment on above: Performed By: #### U AMIC #### [place] [address] URINALYSIS WITH CULTURE IF I NDICATEDon 07-20-2021 Appearance (U) HAZY Normal CLEAR [facility] Comment on above: Performed By: #### U ARFX #### [address] [address] Bilirubin Ql (U) Negative Normal NEGATIVE [facility] Comment on above: Performed By: #### U ARFX #### [address] [address] Color (U) Maryellen Normal STRAW,YELLO W [facility] Comment on above: Performed By: #### U ARFX #### [address] [address] Glucose Ql (U) Negative Normal NEGATIVE [facility] Comment on above: Performed By: #### U ARFX #### [place] [address] Hemoglobin Ql (U) SMALL(1+) Abnormal NEGATIVE [facility] Comment on above: Performed By: #### U ARFX #### [place] [id number] Ketones Ql (U) 5(TRACE) Abnormal NEGATIVE [facility] Comment on above: Performed By: #### U ARFX #### [place] [id number] Leukocyte esterase Test strip Ql (U) MODERATE(2+) Abnormal NEGATIVE [facility] Comment on above: Performed By: #### U ARFX #### [place] [id number] Nitrite Ql (U) Negative Normal NEGATIVE [facility] Comment on above: Performed By: #### U ARFX #### [place] [address] pH (U) 5.0 [pH] Normal 5.0 - 8.0 [facility] Comment on above: Performed By: #### U ARFX #### [place] [address] Protein Ql (U) 100(2+) Abnormal NEGATIVE [facility] Comment on above: Performed By: #### U ARFX #### [place] [id number] Specific gravity (U) [Rel density] 1.028 Normal 1.005 - 1.035 [facility] Comment on above: Performed By: #### U ARFX #### [place] [id number] Urobilinogen (U) [Mass/Vol] 2.0 mg/dL High 0.0 - 1.9 [facility] Comment on above: Result Comment: Due to a manufacturing issue, low positive urobilinogen results may be falsely positive. Correlate with urine bilirubin and additional clinical/laboratory findings to assess the risk of hemolytic anemia or liver disease. If clinically indicated, repeat testing with an alternate method is available by contacting the laboratory within 24 hours. . Some pigments and medications may cause a false positive urobilinogen. Performed By: #### U ARFX #### [facility] [address] [place] [address] URINE CULTURE,BACTERIALon URINE CULTURE,BACTERIAL PATIENT: KHOA CONNORS LOCATION: [facility]UE#: [id number] : 56 AGE: SEX: M ORDERED BY: JEFF NUNEZ SOURCE: URINE COLLECTED: 07/20/21 17:52 ANTIBIOTICS AT [facility].: RECEIVED : 07/21/21 12:50 SITE: T[facility] U L T S URINE CULTURE,BACTERIAL FINAL 07/23/21 11:59 ISOLATE1 : Proteus mirabilis >100,000 CFU/ML Organism P mirabilis Antibiotic BP INTRP Ampicillin S Ceftriaxone S Cefazolin S Ciprofloxacin S Nitrofurantoin R Gentamicin S Levofloxacin S Piperc/Tazobact S Trimeth/Sulfa S S=SUSCEPTIBLE I=INTERMEDIATE R=RESISTANT SDD=SUSCEPTIBLE DOSE DEPENDENT NS=NONSUSCEPTIBLE X=REPORTED IN ERROR Normal [facility] Comment on above: Performed By: #### U RINC #### [facility] [address] [place] [address] Established Visit (Orthopaed ic Surgery)on 04-23-2021 Established Visit (Orthopaedic Surgery) Diagnoses/Problems Assessed 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 With regards to his dental work he does need to get this taken care of before his knee replacement and be sure to have any infection cleared in the mouth before proceed with surgery. He is can work on that we will also schedule his preoperative arthroplasty class and start to prepare for surgical intervention. I do think he is going to need placement in a [place] facility following his surgery. He already has significantly diminished strength in the right lower extremity from his previous spinal compression fracture with L5 nerve root injury on the right. He has significant deficits in the strength in the right lower extremity. This will greatly impact his ability to rehab from his left knee arthroplasty. He will likely need help in the [place] setting to rehab from his knee replacement we do need to request this from Worker's Compensation. With regards to his spine. I do think he needs this evaluated again by Worker's Compensation. He was recovering from the initial knee injury and because of pain and instability in the knee he suffered a fall which resulted in a compression fracture and has subsequent L5 nerve root injury. Plan to see him back after he has his dental work done and will proceed with surgery on his left knee This note has been created with voice recognition software. Please be aware that there may be grammatical or contextual errors due to the use of the software. Chief Complaint Patient here with , Danielle, to review recent x-rays of last visit and venous duplex study of LLE. Patient states he is the same with regard to pain left knee. History of Present Illness Patient is a pleasant 60-year-old male presents today in follow-up with regards to his left knee osteoarthritis. He is scheduled to have some dental work done prior to his knee replacement. He still waiting for this to be accomplished he did have the vein mapping procedure prior to this visit today is here today to discuss the results. Review of Systems Constitutional: no fever, no chills, not feeling tired, no recent weight gain and no recent weight loss. ENT: no nosebleeds. Cardiovascular: no chest pain. Respiratory: no shortness of breath and no cough. Gastrointestinal: no abdominal pain, no nausea, no diarrhea and no vomiting. Musculoskeletal: no arthralgias and as noted in HPI. Integumentary: no rashes and no skin wound. Neurological: no headache. Psychiatric: no depression and no sleep disturbances. Endocrine: no muscle cramps. Hematologic/Lymphatic: swollen glands, but no tendency for easy bruising. Active Problems Problems Arthritis of right glenohumeral joint (716.91) (M19.011) Bone pain of knee (733.90) (M89.8X6) Chronic pain of both knees (719.46,338.29) (M25.561,M25.562,G89.2 9) BART KNEE PAIN AND RIGHT SHOULDER Chronic pain of right knee (719.46,338.29) (M25.561,G89.29) Infrapatellar bursitis of right knee (726.69) (M70.51) Knee pain (719.46) (M25.569) Left knee pain, unspecified chronicity (719.46) (M25.562) Left shoulder pain, unspecified chronicity (719.41) (M25.512) Loose body of left knee (717.6) (M23.42) Muscle strain of right shoulder, subsequent encounter (V58.89,840.9) (S46.911D) 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) Right shoulder pain, unspecified chronicity (719.41) (M25.511) Sprain of right shoulder, initial encounter (840.9) (S43.401A) Strain of right shoulder, initial encounter (840.9) (S46.911A) Tear of medial meniscus of right knee (836.0) (S83.241A) Traumatic hematoma of left knee, subsequent encounter (V58.89,924.11) (S80.02XD) Traumatic incomplete tear of right rotator cuff, subsequent encounter (V58.89,840.4) (S46.011D) Past Medical History Problems No pertinent past medical history (V49.89) (Z78.9) History of Sprain of right shoulder, subsequent encounter (V58.89,840.9) (S43.401D) Resolved Date: 28 Aug 2020 Surgical History Problems History of Back surgery Family History Mother Family history of Known health problems: none Social History Problems Daily caffeine consumption Does not have living will Never a smoker No advance directives (V49.89) (Z78.9) Non-smoker (V49.89) (Z78.9) Allergies Medication No Known Drug Allergies Recorded By: Michelet Avendaño; 06/15/2019 10:19:19 AM NonMedication Latex Recorded By: Jackie Funk; 06/05/2019 9:06:12 AM Current Meds Medication NameInstruction Cyclobenzaprine HCl - 10 MG Oral TabletTAKE 1 TABLET 3 TIMES DAILY. Ibuprofen 600 MG Oral Tablet Vitals Vital Signs Recorded: 23Apr2021 11:25AM Koyjiffyhjq45.3 F Heart Azmu253 Qxvavhte315, LUE, Sitting Kcqbibmfa66, LUE, Sitti (more content not included)... Normal [place] Tobacco Screening.on Fall risk assessment a) No falls within the last year [facility] 300 Work Phone: Tobacco use status CP b) No [facility] 300 Work Phone: VASC LAB Venous Duplex Ultra sound DVTon 04-16-2021 [facility] [place]ous [place] [address] [phone], Vascular Lab Report Lower Venous Duplex Ultrasound Patient Name: KHOA Olson Physician: [id number] Jayne Smith MD Study Date: 04/16/2021 Referring Physician: [id number] ESTHER VALLE MRN/PID: [id number] PCP: Accession/Order#: [id number] CC Report to: Date of : 1960 Technologist: Vanessa Silva RVT Gender: M Technologist 2: Admission Status: Outpatient Location Performed: [facility] Diagnosis/ICD: Z01.818-Encounter for other preprocedural examination Procedure/CPT: 94396 Peripheral venous duplex scan for DVT Limited-[id number] CONCLUSIONS: Left Lower Venous Insufficiency: Multiple varcosities noted within the left calf, however no other abnormalites of the vessels are noted. Right Lower Venous: Right common femoral vein is negative for deep vein thrombus. No evidence of deep vein thrombosis of the right external iliac vein. Additional Findings; Lymph nodes Left Lower Venous: No evidence of acute deep vein thrombus visualized in the left lower extremity. No evidence of superficial thrombosis of the left great and small saphenous veins. Additional Findings; Lymph nodes and probable popliteal cyst noted within the left popliteal space. No color flow noted. Area measures approximately 4.7cm x 1.2cm. Left Lower Vein Mapping: Left lower extremity vein: The left great saphenous vein exits the fascia about the mid calf and re-enters at the distal calf. Imaging AND Doppler Findings: Left Compress Thrombus Diam Depth SFJ Yes None 3.7 mm Prox Thigh GSV Yes None 5.3 mm 24.2 mm Mid Thigh GSV Yes None 3.9 mm 12.7 mm Knee GSV Yes None 2.4 mm 12.2 mm Prox Calf GSV Yes None 2.4 mm 11.6 mm Dist Calf GSV Yes None 1.8 mm 15.3 mm SSV Prox Yes None 4.4 mm 4.4 mm SSV Mid Yes None 3.8 mm 0.9 mm SSV Distal Yes None 2.0 mm 0.9 mm Right Compressible Thrombus Flow Iliac Yes None CFV Yes None Spontaneous/Phasic Left Compress Thrombus Flow Iliac Yes None CFV Yes None Spontaneous/Phasic PFV Yes None FV Proximal Yes None Spontaneous/Phasic FV Mid Yes None FV Distal Yes None Popliteal Yes None Spontaneous/Phasic Peroneal Yes None PTV Yes None [id number] Jayne Smith MD Final Normal [facility] LAB Venous Duplex Ultra sound for DVTon 04-16-2021 [facility] LAB Venous Duplex Ultrasound for DVT [facility] 300 Work Phone: Initial Visit (Orthopaedic S urgery)on 03-20-2021 Initial Visit (Orthopaedic Surgery) Diagnoses/Problems Assessed Left knee pain, unspecified chronicity (719.46) (M25.562) Loose body of left knee (717.6) (M23.42) Orders Left knee pain, unspecified chronicity Xray Knee 1 or 2 View; Status:Resulted - Preliminary,Retrospect ana Authorization; Done: [id number] 10:25AM Laterality : Left Radiologist to Determine Optimal Study : Y What are the patient's signs and symptoms? : Left knee pain Provider Impressions Assessment?left knee osteoarthritis/chondra l defect loose bodies, aberrant venous course in the left leg 1 Plan?patient continues to have significant symptoms in the left knee and was tried multiple conservative measures with no improvement in his symptoms. We have obtained permission to proceed with surgical intervention risk benefits alternatives were discussed in detail the patient spent approximately 1 hour discussing with the patient options and potential risks and alternatives to surgical intervention written informed consent was obtained we will proceed with knee arthroplasty. The patient informed me at this preoperative visit that he was seen and evaluated by vascular surgery in the past and was noted to have some significant abnormalities in the venous structure of his left lower extremity. This does concern me also concerns the patient that he could have some abnormal venous structure or vascular tree that would affect the surgical intervention. I do think we need to obtain some venous mapping of the lower extremity to evaluate what type of venous structure he has and if this will affect the surgical incision or the postoperative healing of the extremity. We will order venous mapping for the ability to plan preoperatively 1 This note has been created with voice recognition software. Please be aware that there may be grammatical or contextual errors due to the use of the software. 1 Amended By: Esther Valle; Apr 01 2021 8:09 AM ESTChief Complaint Patient here for f/u for left knee..Sign for SX..Pain is a 8/10 today..Knee feels sore and swollen.. History of Present Illness Patient pleasant 60-year-old male presents today in follow-up with regards to his left knee. He continues to have significant pain in the left knee. He is interested in pursuing knee arthroplasty. `. Review of Systems Constitutional: no fever, no chills, not feeling tired, no recent weight gain and no recent weight loss. ENT: no nosebleeds. Cardiovascular: no chest pain. Respiratory: no shortness of breath and no cough. Gastrointestinal: no abdominal pain, no nausea, no diarrhea and no vomiting. Musculoskeletal: no arthralgias and as noted in HPI. Integumentary: no rashes and no skin wound. Neurological: no headache. Psychiatric: no depression and no sleep disturbances. Endocrine: no muscle cramps. Hematologic/Lymphatic: no swollen glands and no tendency for easy bruising. All other systems have been reviewed and are negative for complaint. Active Problems Problems Arthritis of right glenohumeral joint (716.91) (M19.011) Bone pain of knee (733.90) (M89.8X6) Chronic pain of both knees (719.46,338.29) (M25.561,M25.562,G89.2 9) BART KNEE PAIN AND RIGHT SHOULDER Chronic pain of right knee (719.46,338.29) (M25.561,G89.29) Infrapatellar bursitis of right knee (726.69) (M70.51) Knee pain (719.46) (M25.569) Left knee pain, unspecified chronicity (719.46) (M25.562) Left shoulder pain, unspecified chronicity (719.41) (M25.512) Loose body of left knee (717.6) (M23.42) Muscle strain of right shoulder, subsequent encounter (V58.89,840.9) (S46.911D) 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) Right shoulder pain, unspecified chronicity (719.41) (M25.511) Sprain of right shoulder, initial encounter (840.9) (S43.401A) Strain of right shoulder, initial encounter (840.9) (S46.911A) Tear of medial meniscus of right knee (836.0) (S83.241A) Traumatic hematoma of left knee, subsequent encounter (V58.89,924.11) (S80.02XD) Traumatic incomplete tear of right rotator cuff, subsequent encounter (V58.89,840.4) (S46.011D) Past Medical History Problems No pertinent past medical history (V49.89) (Z78.9) History of Sprain of right shoulder, subsequent encounter (V58.89,840.9) (S43.401D) Resolved Date: 28 Aug 2020 Surgical History Problems History of Back surgery Family History Mother Family history of Known health problems: none Social History Problems Daily caffeine consumption Does not have living will Never a smoker No advance directives (V49.89) (Z78.9) Non-smoker (V49.89) (Z78.9) Allergies No Known Drug Allergies Recorded By: Michelet Avendaño; 06/15/2019 10:19:19 AM Latex Recorded By: Jackie Funk; 06/05/2019 9:06:12 AM Current Meds Medication NameInstruction Cyclobenzaprine HCl - 10 MG Oral TabletTAKE 1 TABLET 3 TIMES DAILY. Ibuprofen 600 MG Oral Tablet Vitals Vital Signs Recorded: 20Mar2021 09:13AM Gnhsxcuzkvb21.3 F Lhfidvmi474 Xvcpzynnm68 Height6 ft 5 in (more content not included)... Normal [facility] KNEE 1 OR 2 VIEWSon 03-20-20 21 KNEE 1 OR 2 VIEWS Patient Name: KHOA CONNORS STUDY: KNEE; 1 OR 2 VIEWS; Left; 03/20/2021 10:26 am INDICATION: Left knee pain. COMPARISON: 06/01/2019 ACCESSION NUMBER(S): [id number] ORDERING CLINICIAN: ESTHER VALLE FINDINGS: LEFT KNEE-AP AND LATERAL TRICOMPARTMENTAL OSTEOARTHRITIS IS PRESENT, WITH MODERATE NARROWING OF THE MEDIAL TIBIOFEMORAL JOINT AND PROMINENT OSTEOPHYTES FROM THE SUPERIOR AND INFERIOR MARGINS OF THE PATELLA POSTERIORLY. NO JOINT EFFUSION IS PRESENT. THE PREPATELLAR SOFT TISSUE SWELLING PRESENT ON 06/01/2019 IS NO LONGER SEEN. PROMINENCE OF THE MEDIAL TIBIAL SPINE IS PRESENT. NO FRACTURE. IMPRESSION: TRICOMPARTMENTAL OSTEOARTHRITIS, WITH MOST SEVERE INVOLVEMENT IN THE MEDIAL TIBIOFEMORAL JOINT AND THE PATELLOFEMORAL JOINT. FINDINGS SIMILAR TO 06/01/2019. Electronically signed by: HERO ZULETA MD [facility] Radiologyon 03-20-2021 XR Knee 1 or 2 Views Normal [facility] 300 Work Phone: Tobacco Screening.on 021 Fall risk assessment a) No falls within the last year [facility] 300 Work Phone: Tobacco use status CPHS b) No [facility] 300 Work Phone: Established Visit (Orthopaed ic Surgery)on 02-25-2021 Established Visit (Orthopaedic Surgery) Diagnoses/Problems Assessed Arthritis of right glenohumeral joint (716.91) (M19.011) 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) Provider Impressions Assessment?left knee., Osteochondral defect, DJD, right glenohumeral arthritis Plan?unfortunately patient continues to be quite symptomatic with regards to left knee. He is interested in pursuing a surgical intervention we have discussed this multiple times in the past having failed multiple conservative measures continue have symptoms I was agreeable to perform knee arthroplasty on the left. I do have concerns about his overall healing potential based on the right lower extremity being very weak and having the nerve damage. This will significantly affect his ability to recover from his knee replacement which does worry me he is also can be affected with the right shoulder which I do think will affect his ability to use the walker and surgical recovery. We will request permission to do this via Worker's Compensation with regards to the right shoulder he has had significant trouble getting in contact with his surgeon, he is requested a second opinion so we will put on a C9 for second opinion with regards to his right shoulder This note has been created with voice recognition software. Please be aware that there may be grammatical or contextual errors due to the use of the software. Chief Complaint 1 MONTH F/U L KNEE. History of Present Illness Patient is a very pleasant 60-year-old male presents today in follow-up with regards to his left knee. He continues have significant pain swelling and joint line tenderness on the left knee does bother him when he is active. He is been able to maintain his strength in the right lower extremity with home exercises but he continues to have significant limitations because of his nerve damage in the right lower extremity is weak and not able to use his primary strength source. Review of Systems Constitutional: no fever, no chills, not feeling tired, no recent weight gain and no recent weight loss. ENT: no nosebleeds. Cardiovascular: no chest pain. Respiratory: no shortness of breath and no cough. Gastrointestinal: no abdominal pain, no nausea, no diarrhea and no vomiting. Musculoskeletal: no arthralgias and as noted in HPI. Integumentary: no rashes and no skin wound. Neurological: no headache. Psychiatric: no depression and no sleep disturbances. Endocrine: no muscle cramps. Hematologic/Lymphatic: swollen glands, but no tendency for easy bruising. Active Problems Problems Arthritis of right glenohumeral joint (716.91) (M19.011) Bone pain of knee (733.90) (M89.8X6) Chronic pain of both knees (719.46,338.29) (M25.561,M25.562,G89.2 9) BART KNEE PAIN AND RIGHT SHOULDER Chronic pain of right knee (719.46,338.29) (M25.561,G89.29) Infrapatellar bursitis of right knee (726.69) (M70.51) Knee pain (719.46) (M25.569) Left knee pain, unspecified chronicity (719.46) (M25.562) Left shoulder pain, unspecified chronicity (719.41) (M25.512) Loose body of left knee (717.6) (M23.42) Muscle strain of right shoulder, subsequent encounter (V58.89,840.9) (S46.911D) 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) Right shoulder pain, unspecified chronicity (719.41) (M25.511) Sprain of right shoulder, initial encounter (840.9) (S43.401A) Strain of right shoulder, initial encounter (840.9) (S46.911A) Tear of medial meniscus of right knee (836.0) (S83.241A) Traumatic hematoma of left knee, subsequent encounter (V58.89,924.11) (S80.02XD) Traumatic incomplete tear of right rotator cuff, subsequent encounter (V58.89,840.4) (S46.011D) Past Medical History Problems No pertinent past medical history (V49.89) (Z78.9) History of Sprain of right shoulder, subsequent encounter (V58.89,840.9) (S43.401D) Resolved Date: 28 Aug 2020 Surgical History Problems History of Back surgery Family History Mother Family history of Known health problems: none Social History Problems Daily caffeine consumption Does not have living will Never a smoker No advance directives (V49.89) (Z78.9) Non-smoker (V49.89) (Z78.9) Allergies Medication No Known Drug Allergies Recorded By: Michelet Avendaño; 06/15/2019 10:19:19 AM NonMedication Latex Recorded By: Jackie Funk; 06/05/2019 9:06:12 AM Current Meds Medication NameInstruction Cyclobenzaprine HCl - 10 MG Oral TabletTAKE 1 TABLET 3 TIMES DAILY. Ibuprofen 600 MG Oral Tablet Vitals Vital Signs Recorded: 25Feb2021 10:37AM Iolzcwnxchf69.3 F Heart Rate86 Ahlkfrtr605 Zgtarflfv89 Height6 ft 5 in Levrze814 lb BMI Ywbibqerwt39.96 kg/m2 BSA Calculated2.79 Tobacco Useb) No Fall Screeningb) One or more falls in the last year Physical Exam Alert and Oriented x 3 Patient resting comfortably in the exam room Normocephalic atraumatic extraocular movements intact mucous membranes moist warm well perfused extremities nonlabored breathing appropriate mood and affec (more content not included)... Normal [place] Tobacco Screening.on 021 Fall risk assessment b) One or more fall s in the last year [facility] 300 Work Phone: Tobacco use status CPHS b) No [facility] 300 Work Phone: Established Visit (Orthopaed ic Surgery)on 01-24-2021 Established Visit (Orthopaedic Surgery) Diagnoses/Problems Assessed Chronic pain of both knees (719.46,338.29) (M25.561,M25.562,G89.2 9) BART KNEE PAIN AND RIGHT SHOULDER Provider Impressions Assessment?bilateral knee pain left knee osteochondral defect, DJD Plan?patient continues to be quite symptomatic in the left knee. He has tried to rehab the right lower extremity unfortunately his situation is very complicated he is essentially a significantly impacted right lower extremity from a neurovascular perspective. He has lost nerve function of the L5 nerve root he has a dropfoot he is extremely weak in the right leg but he has left knee pain with some degenerative changes within the knee from previous injury. He is interested in pursuing a left total knee arthroplasty but his rehabilitation will be some definitely impacted by his weakness in the right lower extremity. He has had some improvement in the right leg with some physical therapy would like him to continue home therapy for 1 month and see if he can maintain his strength if he can continue to maintain his strength we could consider requesting permission for knee arthroplasty. If you start to lose the strength again I do think we need to go through another round therapy This note has been created with voice recognition software. Please be aware that there may be grammatical or contextual errors due to the use of the software. Chief Complaint PT HERE FOR 3 WK FU LEFT KNEE. [facility]. DOI 06/01/19. STATES KNEE IS THE SAME, NO IMPROVEMENT. LAST THERAPY SESSION WAS 01/16/21. PAIN IS CONSTANT. History of Present Illness Patient is a very pleasant 60-year-old male who presents today in follow-up with regards to his left knee osteochondral defect DJD knee pain. He continues have significant mount of pain he is done physical therapy and has had some strengthening of the right lower extremity. He does complain of substantial pain with the left knee. Review of Systems Constitutional: no fever, no chills, not feeling tired, no recent weight gain and no recent weight loss. ENT: no nosebleeds. Cardiovascular: no chest pain. Respiratory: no shortness of breath and no cough. Gastrointestinal: no abdominal pain, no nausea, no diarrhea and no vomiting. Musculoskeletal: no arthralgias and as noted in HPI. Integumentary: no rashes and no skin wound. Neurological: no headache. Psychiatric: no depression and no sleep disturbances. Endocrine: no muscle cramps. Hematologic/Lymphatic: no swollen glands and no tendency for easy bruising. All other systems have been reviewed and are negative for complaint. Active Problems Problems Arthritis of right glenohumeral joint (716.91) (M19.011) Bone pain of knee (733.90) (M89.8X6) Chronic pain of both knees (719.46,338.29) (M25.561,M25.562,G89.2 9) BART KNEE PAIN AND RIGHT SHOULDER Chronic pain of right knee (719.46,338.29) (M25.561,G89.29) Infrapatellar bursitis of right knee (726.69) (M70.51) Knee pain (719.46) (M25.569) Left knee pain, unspecified chronicity (719.46) (M25.562) Left shoulder pain, unspecified chronicity (719.41) (M25.512) Loose body of left knee (717.6) (M23.42) Muscle strain of right shoulder, subsequent encounter (V58.89,840.9) (S46.911D) 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) Right shoulder pain, unspecified chronicity (719.41) (M25.511) Sprain of right shoulder, initial encounter (840.9) (S43.401A) Strain of right shoulder, initial encounter (840.9) (S46.911A) Tear of medial meniscus of right knee (836.0) (S83.241A) Traumatic hematoma of left knee, subsequent encounter (V58.89,924.11) (S80.02XD) Traumatic incomplete tear of right rotator cuff, subsequent encounter (V58.89,840.4) (S46.011D) Past Medical History Problems No pertinent past medical history (V49.89) (Z78.9) History of Sprain of right shoulder, subsequent encounter (V58.89,840.9) (S43.401D) Resolved Date: 28 Aug 2020 Surgical History Problems History of Back surgery Family History Mother Family history of Known health problems: none Social History Problems Daily caffeine consumption Does not have living will Never a smoker No advance directives (V49.89) (Z78.9) Non-smoker (V49.89) (Z78.9) Allergies Medication No Known Drug Allergies Recorded By: Michelet Avendaño; 06/15/2019 10:19:19 AM NonMedication Latex Recorded By: Jackie Funk; 06/05/2019 9:06:12 AM Current Meds Medication NameInstruction Cyclobenzaprine HCl - 10 MG Oral TabletTAKE 1 TABLET 3 TIMES DAILY. Ibuprofen 600 MG Oral Tablet Methocarbamol 500 MG Oral TabletTAKE 1 TABLET 4 TIMES DAILY PRN MUSCLE SPASM Vitals Vital Signs Recorded: [id number] 11:46AM Fnctkuepzwb11.7 F Bfmglvjp166 Lijshiars61 Height6 ft 5 in Ksruem477 lb 6 oz BMI Yatpqpqsaj24.94 kg/m2 BSA Calculated2.76 Tobacco Useb) No Fall Screeningb) One or more falls in the last year Physical Exam Alert and Oriented x 3 Patient resting comfortably in the exam room Normocephalic atraumatic ext (more content not included)... Normal [facility] Tobacco Screening.on 021 Fall risk assessment b) One or more fall s in the last year [facility] 300 Work Phone: Tobacco use status [facility] b) No [facility] 300 Work Phone: PT Progress Noteon 1 PT Progress Note Plan Goals: Goals set and discussed today. 1. Independent HEP to allow for 50% reduction in max ADL C/C sx ( L-7/10; R-5/10)2-3wks 9/10 L; 7/10 R; within the last 5 days; 10/09/20; NOT MET; 8/10-L; 10-R; max sx within the last 5 days; 11/21/20; NOT MET; 8/10 max sx within the last 5 days; 01/16/21; NOT MET 2. 0/10 night time sx to allow for uninterrupted sleep x1wk ( 01/15) 2-3wks still wakes nightly; 10/09/20; NOT MET; still wakes nightly; 11/21/20; NOT MET; still walkes nightly as of 01/16/21; NOT MET 3. Survey score improvement from to 40/80 (LEFS) 4-6wks 5/80 as of 10/09/20; NOT MET; 10/80 as of 11/21/20; PARTIALLY MET; as of 01/16/21; NOT MET 4. ROM increase to allow for improved ADL car transfers, dressing lowers (from 120 to 130 L knee flexion) 4-6wks no change with ADL; 110 active L knee bend; 10/09/20; NOT MET; no change with noted ADL; 120/125 L/R knee flexion; 11/21/20; PARTIALLY MET; 120/125 L/R knee flexion as of 01/16/21-no change since last measure 5. Strength increase to allow for improved ADL sit to stdg transfers, stairs (from 3+/4- R/L knee to gr4+ B) 4-6wks no change; gr4-/4+ R/L knee; 10/09/20; PARTIALLY MET; still difficult with noted ADL; gr4+ L knee, gr4- R knee flex/ext; 11/21/20; PARTIALLY MET; as of 01/16/21 gr4 R knee, gr4- L knee flex/ext-reduced sttrength measure since lasr re-assess 6. Strength increase to allow for improved ADL sit to stdg transfers, stairs (from 4/4- R hip to gr4+) 4-6wks no change with noted ADL; gr4/4- R hip today; 10/09/20; NOT MET; still difficult with noted ADL; gr3+ R hip f;exion, gr4 R hip abd/ext; 11/21/20; PARTIALLY MET-NT as of 01/16/21 Planned interventions include: aquatic therapy, cryotherapy, education/instruction, electrical stimulation, gait training, home program, hot pack, kinesiotaping, manual therapy, neuromuscular re-education, self care/home management and therapeutic exercises. Frequency and duration: 3 time(s) a week, for 6 weeks, for 17 visits. Potential to achieve rehab goals is fair: chronic syndrome the patient has completed his POC visits for this C-9 period ending 01/22; recheck with the DRr is in 1wk. Assessment Patient identity confirmed today with name/. see goals; little if any improvements in knee strength/ROM since last re-assess 1 mth ago; ease of gait with FWW varies with knee and LBP. Adult Risk Screening There are no spiritual/cultural practices/values/needs that are important to know Initial Fall Risk Screening: KHOA has not fallen in the last 6 months. KHOA does not have a fear of falling. He does not need assistance with sitting, standing or walking. Does not need assistance walking in his home. He does not need assistance in an unfamiliar setting. The patient is using an assistive device. Fall Risk Screening: Patient is identified as a fall risk. Care Plan: Low Risk: Environmental for all patients and low risk patients: Offer assistance as needed or requested, keep environment free of obstacles, keep floor clean and dry, keep room lighting, wheelchair brakes on, bed/ stretcher locked and in low position if applicable, non-slip footwear if applicable, walker/cane available if needed, side rails up if applicable and pre-emptive toileting. Pain Scale: On a scale of 0 to 10, the patient rates the pain at 8. Please identify location of pain: L knee 8/10, R knee 6/10. Pain Quality: burning, pressure, sharp, tightness, throbbing and R numbness. The pain makes it hard for the patient to do these things: walking, exercise and self-care (bathing, dressing, eating). Insurance Insurance reviewed Visit number: 49 Approved number of visits: 18 Authorization date range: - until 01/22/2105/29 [facility] 18v Evaluating therapist William Pastor PT. M25.561; M89.8X6; S80.02Xd; M70.51; M23.42; LATEX ALLERGY; RLE MYOTOME WEAKNESS Subjective Patient reports:. 8/10 r knee; 6/10 L knee pain right now. My LB also hurts. 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 Treatment Time in clinic started at 10:03 am Time in clinic ended at 10:30 am Total time in clinic is 27 minutes. Total timed code time is 12 minutes. Therapeutic exercise (74911): timed minutes 12, units 1 . NuStep SciFit L3 x5', UE/LE's seated LAQ 3# 2x10 ea seated actibve DF x10 ea manual HSC x10 ea NOT TODAY - FWD step up 6'' step x15 L, x15 R; B UE support - HR/TR 2x10 (does uni with toe raises) -B hip flex 2 X 10 on Airex mat - B hip abd 2x10 on Airex mat - Hip ext 2x10 standing w/ foot on Airex mat - marches x 30 on Airex mat - Side stepping x4 each dir in // bars on Airex mat - Mini squat 2x10 on Airex mat - B/L SLS with leg circumduction on Airex mat - Modified Tandem Stance w/ ea foot on green Thera Disc 2 x30''' each foot fwd - Fwd/Bwd Gait in // bars x5 each x2 fwd/bkwd gait without UE support but wi (more content not included)... Normal [facility] Therapy Re-eval Noteon 01-16 Therapy Re-eval Note Plan Goals: Goals set and discussed today. 1. Independent HEP to allow for 50% reduction in max ADL C/C sx ( L-01/18; R-11/18)2-3wks 910 L; 01/18 R; within the last 5 days; 10/09/20; NOT MET; 02/18-L; 01/18-R; max sx within the last 5 days; 11/21/20; NOT MET; 810 max sx within the last 5 days; 01/16/21; NOT MET 2. 0/10 night time sx to allow for uninterrupted sleep x1wk ( 01/15) 2-3wks still wakes nightly; 10/09/20; NOT MET; still wakes nightly; 11/21/20; NOT MET; still walkes nightly as of 01/16/21; NOT MET 3. Survey score improvement from 3/80 to 40/80 (LEFS) 4-6wks 5/80 as of 10/09/20; NOT MET; 10/80 as of 11/21/20; PARTIALLY MET; 5/80 as of 01/16/21; NOT MET 4. ROM increase to allow for improved ADL car transfers, dressing lowers (from 120 to 130 L knee flexion) 4-6wks no change with ADL; 110 active L knee bend; 10/09/20; NOT MET; no change with noted ADL; 120/125 L/R knee flexion; 11/21/20; PARTIALLY MET; 120/125 L/R knee flexion as of 01/16/21-no change since last measure 5. Strength increase to allow for improved ADL sit to stdg transfers, stairs (from 3+/4- R/L knee to gr4+ B) 4-6wks no change; gr4-/4+ R/L knee; 10/09/20; PARTIALLY MET; still difficult with noted ADL; gr4+ L knee, gr4- R knee flex/ext; 11/21/20; PARTIALLY MET; as of 01/16/21 gr4 R knee, gr4- L knee flex/ext-reduced sttrength measure since lasr re-assess 6. Strength increase to allow for improved ADL sit to stdg transfers, stairs (from 4/4- R hip to gr4+) 4-6wks no change with noted ADL; gr4/4- R hip today; 10/09/20; NOT MET; still difficult with noted ADL; gr3+ R hip f;exion, gr4 R hip abd/ext; 11/21/20; PARTIALLY MET-NT as of 01/16/21 Planned interventions include: aquatic therapy, cryotherapy, education/instruction, electrical stimulation, gait training, home program, hot pack, kinesiotaping, manual therapy, neuromuscular re-education, self care/home management and therapeutic exercises. Frequency and duration: 3 time(s) a week, for 6 weeks, for 17 visits. Potential to achieve rehab goals is fair: chronic syndrome the patient has completed his POC visits for this C-9 period ending 01/22; recheck with the DRr is in 1wk. Assessment Patient identity confirmed today with name/. see goals; little if any improvements in knee strength/ROM since last re-assess 1 mth ago; ease of gait with FWW varies with knee and LBP. Adult Risk Screening There are no spiritual/cultural practices/values/needs that are important to know Initial Fall Risk Screening: KHOA has not fallen in the last 6 months. KHOA does not have a fear of falling. He does not need assistance with sitting, standing or walking. Does not need assistance walking in his home. He does not need assistance in an unfamiliar setting. The patient is using an assistive device. Fall Risk Screening: Patient is identified as a fall risk. Care Plan: Low Risk: Environmental for all patients and low risk patients: Offer assistance as needed or requested, keep environment free of obstacles, keep floor clean and dry, keep room lighting, wheelchair brakes on, bed/ stretcher locked and in low position if applicable, non-slip footwear if applicable, walker/cane available if needed, side rails up if applicable and pre-emptive toileting. Pain Scale: On a scale of 0 to 10, the patient rates the pain at 8. Please identify location of pain: L knee 8/10, R knee 6/10. Pain Quality: burning, pressure, sharp, tightness, throbbing and R numbness. The pain makes it hard for the patient to do these things: walking, exercise and self-care (bathing, dressing, eating). Insurance Insurance reviewed Visit number: 49 Approved number of visits: 18 Authorization date range: - until 01/22/2105/29 [facility] 18v Evaluating therapist William Pastor PT. M25.561; M89.8X6; S80.02Xd; M70.51; M23.42; LATEX ALLERGY; RLE MYOTOME WEAKNESS Subjective Patient reports:. 8/10 r knee; 6/10 L knee pain right now. My LB also hurts. 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 Treatment Time in clinic started at 10:03 am Time in clinic ended at 10:30 am Total time in clinic is 27 minutes. Total timed code time is 12 minutes. Therapeutic exercise (55141): timed minutes 12, units 1 . NuStep SciFit L3 x5', UE/LE's seated LAQ 3# 2x10 ea seated actibve DF x10 ea manual HSC x10 ea NOT TODAY - FWD step up 6'' step x15 L, x15 R; B UE support - HR/TR 2x10 (does uni with toe raises) -B hip flex 2 X 10 on Airex mat - B hip abd 2x10 on Airex mat - Hip ext 2x10 standing w/ foot on Airex mat - marches x 30 on Airex mat - Side stepping x4 each dir in // bars on Airex mat - Mini squat 2x10 on Airex mat - B/L SLS with leg circumduction on Airex mat - Modified Tandem Stance w/ ea foot on green Thera Disc 2 x30''' each foot fwd - Fwd/Bwd Gait in // bars x5 each x2 fwd/bkwd gait without UE support but wi (more content not included)... Normal [facility] PT Progress Noteon 1 PT Progress Note Therapy Diagnosis Assessed Loose body of left knee (717.6) (M23.42) Traumatic hematoma of left knee, subsequent encounter (V58.89,924.11) (S80.02XD) Bone pain of knee (733.90) (M89.8X6) Chronic pain of both knees (719.46,338.29) (M25.561,M25.562,G89.2 9) Infrapatellar bursitis of right knee (726.69) (M70.51) Plan Goals: Goals set and discussed today. 1. Independent HEP to allow for 50% reduction in max ADL C/C sx ( L-01/18; R-11/18)2-3wks 9/10 L; 7/10 R; within the last 5 days; 10/09/20; NOT MET; 02/18-L; 01/18-R; max sx within the last 5 days; 11/21/20; NOT MET 2. 0/10 night time sx to allow for uninterrupted sleep x1wk ( 01/15) 2-3wks still wakes nightly; 10/09/20; NOT MET; still wakes nightly; 11/21/20; NOT MET 3. Survey score improvement from 3/80 to 40/80 (LEFS) 4-6wks 5/80 as of 10/09/20; NOT MET; 10/80 as of 11/21/20; PARTIALLY MET 4. ROM increase to allow for improved ADL car transfers, dressing lowers (from 120 to 130 L knee flexion) 4-6wks no change with ADL; 110 active L knee bend; 10/09/20; NOT MET; no change with noted ADL; 120/125 L/R knee flexion; 11/21/20; PARTIALLY MET 5. Strength increase to allow for improved ADL sit to stdg transfers, stairs (from 3+/4- R/L knee to gr4+ B) 4-6wks no change; gr4-/4+ R/L knee; 10/09/20; PARTIALLY MET; still difficult with noted ADL; gr4+ L knee, gr4- R knee flex/ext; 11/21/20; PARTIALLY MET 6. Strength increase to allow for improved ADL sit to stdg transfers, stairs (from 4/4- R hip to gr4+) 4-6wks no change with noted ADL; gr4/4- R hip today; 10/09/20; NOT MET; still difficult with noted ADL; gr3+ R hip f;exion, gr4 R hip abd/ext; 11/21/20; PARTIALLY MET Planned interventions include: aquatic therapy, cryotherapy, education/instruction, electrical stimulation, gait training, home program, hot pack, kinesiotaping, manual therapy, neuromuscular re-education, self care/home management and therapeutic exercises. Frequency and duration: 3 time(s) a week, for 6 weeks, for 17 visits. Potential to achieve rehab goals is fair: chronic syndrome Patient will see supervising PT next treatment for reassessment. Progress with POC, as tolerated. Assessment Continue amb using FWW with slow little. He did demonstrate better pattern following session. Fatigued after treatment but no increase in pain. Adult Risk Screening There are no spiritual/cultural practices/values/needs that are important to know Initial Fall Risk Screening: KHOA has not fallen in the last 6 months. KHOA does not have a fear of falling. He does not need assistance with sitting, standing or walking. Does not need assistance walking in his home. He does not need assistance in an unfamiliar setting. The patient is using an assistive device. Fall Risk Screening: Patient is identified as a fall risk. Care Plan: Low Risk: Environmental for all patients and low risk patients: Offer assistance as needed or requested, keep environment free of obstacles, keep floor clean and dry, keep room lighting, wheelchair brakes on, bed/ stretcher locked and in low position if applicable, non-slip footwear if applicable, walker/cane available if needed, side rails up if applicable and pre-emptive toileting. Pain Scale: On a scale of 0 to 10, the patient rates the pain at 8. Please identify location of pain: L knee 8/10, R knee 6/10. Pain Quality: burning, pressure, sharp, tightness, throbbing and R numbness. The pain makes it hard for the patient to do these things: walking, exercise and self-care (bathing, dressing, eating). Insurance Insurance reviewed Visit number: 48 Approved number of visits: 18 Authorization date range: C-9 until 01/22/2105/29 [facility] 18v Evaluating therapist William Pastor PT. M25.561; M89.8X6; S80.02Xd; M70.51; M23.42; LATEX ALLERGY; RLE MYOTOME WEAKNESS Subjective Patient reports:. I did a lot of walking over the weekend so I'm hurting a little more today. 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 Treatment Time in clinic started at 1003 Time in clinic ended at 1049 Total time in clinic is 46 minutes. Total timed code time is 43 minutes. Therapeutic exercise (46372): timed minutes 43, units 3 . NuStep SciFit L3 x5', UE/LE's - FWD step up 6'' step x15 L, x15 R; B UE support - HR/TR 2x10 (does uni with toe raises) -B hip flex 2 X 10 on Airex mat - B hip abd 2x10 on Airex mat - Hip ext 2x10 standing w/ foot on Airex mat - marches x 30 on Airex mat - Side stepping x4 each dir in // bars on Airex mat - Mini squat 2x10 on Airex mat - B/L SLS with leg circumduction on Airex mat - Modified Tandem Stance w/ ea foot on green Thera Disc 2 x30''' each foot fwd - Fwd/Bwd Gait in // bars x5 each x2 fwd/bkwd gait without UE support but with SBA - Tandem Gait fwd/bwd in // bars x2 each -FWD step up 4 step x15 R with R UE support Sea (more content not included)... [facility] PT Progress Noteon 1 PT Progress Note Therapy Diagnosis Assessed Loose body of left knee (717.6) (M23.42) Traumatic hematoma of left knee, subsequent encounter (V58.89,924.11) (S80.02XD) Bone pain of knee (733.90) (M89.8X6) Chronic pain of both knees (719.46,338.29) (M25.561,M25.562,G89.2 9) Infrapatellar bursitis of right knee (726.69) (M70.51) Plan Goals: Goals set and discussed today. 1. Independent HEP to allow for 50% reduction in max ADL C/C sx ( L-01/18; R-11/18)2-3wks 9/10 L; 01/18 R; within the last 5 days; 10/09/20; NOT MET; 8-L; 01/18-R; max sx within the last 5 days; 11/21/20; NOT MET 2. 0/10 night time sx to allow for uninterrupted sleep x1wk ( 01/15) 2-3wks still wakes nightly; 10/09/20; NOT MET; still wakes nightly; 11/21/20; NOT MET 3. Survey score improvement from to 40/80 (LEFS) 4-6wks 5 as of 10/09/20; NOT MET; 10/80 as of 11/21/20; PARTIALLY MET 4. ROM increase to allow for improved ADL car transfers, dressing lowers (from 120 to 130 L knee flexion) 4-6wks no change with ADL; 110 active L knee bend; 10/09/20; NOT MET; no change with noted ADL; 120/125 L/R knee flexion; 11/21/20; PARTIALLY MET 5. Strength increase to allow for improved ADL sit to stdg transfers, stairs (from 3+/4- R/L knee to gr4+ B) 4-6wks no change; gr4-/4+ R/L knee; 10/09/20; PARTIALLY MET; still difficult with noted ADL; gr4+ L knee, gr4- R knee flex/ext; 11/21/20; PARTIALLY MET 6. Strength increase to allow for improved ADL sit to stdg transfers, stairs (from 4/4- R hip to gr4+) 4-6wks no change with noted ADL; gr4/4- R hip today; 10/09/20; NOT MET; still difficult with noted ADL; gr3+ R hip f;exion, gr4 R hip abd/ext; 11/21/20; PARTIALLY MET Planned interventions include: aquatic therapy, cryotherapy, education/instruction, electrical stimulation, gait training, home program, hot pack, kinesiotaping, manual therapy, neuromuscular re-education, self care/home management and therapeutic exercises. Frequency and duration: 3 time(s) a week, for 6 weeks, for 17 visits. Potential to achieve rehab goals is fair: chronic syndrome Progress with POC, as tolerated. Assessment Patient identity confirmed today with name/. no additions as treatment was split with DATA ENTRY TECHNICIAN; no C/O increased sx with treatment today; the patient walked with improved little in and out of clinic today. Adult Risk Screening There are no spiritual/cultural practices/values/needs that are important to know Initial Fall Risk Screening: KHOA has not fallen in the last 6 months. KHOA does not have a fear of falling. He does not need assistance with sitting, standing or walking. Does not need assistance walking in his home. He does not need assistance in an unfamiliar setting. The patient is using an assistive device. Fall Risk Screening: Patient is identified as a fall risk. Care Plan: Low Risk: Environmental for all patients and low risk patients: Offer assistance as needed or requested, keep environment free of obstacles, keep floor clean and dry, keep room lighting, wheelchair brakes on, bed/ stretcher locked and in low position if applicable, non-slip footwear if applicable, walker/cane available if needed, side rails up if applicable and pre-emptive toileting. Pain Scale: On a scale of 0 to 10, the patient rates the pain at 8. Please identify location of pain: L knee 8/10, R knee 6/10. Pain Quality: burning, pressure, sharp, tightness, throbbing and R numbness. The pain makes it hard for the patient to do these things: walking, exercise and self-care (bathing, dressing, eating). Insurance Insurance reviewed Visit number: 47 Approved number of visits: 18 Authorization date range: C-9 until 01/22/2104/28 [facility] 18v Evaluating therapist William Pastor PT. M25.561; M89.8X6; S80.02Xd; M70.51; M23.42; LATEX ALLERGY; RLE MYOTOME WEAKNESS Subjective Patient reports:. 8/10 L knee; 6/10 R knee; 9/10 R shldr today; my R leg is numb today; my back feels relatively better. 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 Treatment Time in clinic started at 10:01 am Time in clinic ended at 10:45 am Total time in clinic is 44 minutes. Total timed code time is 43 minutes. Therapeutic exercise (09924): timed minutes 43, units 3 . NuStep SciFit L3 x5', UE/LE's - FWD step up 6'' step x15 L, x15 R; B UE support - HR/TR 2x10 (does uni with toe raises) -B hip flex 2 X 10 green miniband on Airex (not on airex today) - B hip abd 2x10 green miniband on Airex - Hip ext 2x10 green miniband, standing w/ foot on Airex [P] - marches x 30 with green miniband - Side stepping with green miniband x4 each dir in // bars - Mini squat 2x10 on Airex - B/L SLS with leg circumduction on green thera disc 2x15 - Modified Tandem Stance w/ ea foot on green Thera Disc 2 x30''' each foot fwd - Fwd/Bwd Gait in // bars x5 each x2 fwd/bkwd gait without UE support (more content not included)... Normal [employer] PT Progress Noteon 1 PT Progress Note Therapy Diagnosis Assessed Bone pain of knee (733.90) (M89.8X6) Chronic pain of both knees (719.46,338.29) (M25.561,M25.562,G89.2 9) Infrapatellar bursitis of right knee (726.69) (M70.51) Traumatic hematoma of left knee, subsequent encounter (V58.89,924.11) (S80.02XD) Loose body of left knee (717.6) (M23.42) Plan Goals: Goals set and discussed today. 1. Independent HEP to allow for 50% reduction in max ADL C/C sx ( L-01/18; R-11/18)2-3wks 9/10 L; 710 R; within the last 5 days; 10/09/20; NOT MET; 8/10-L; 01/18-R; max sx within the last 5 days; 11/21/20; NOT MET 2. 0/10 night time sx to allow for uninterrupted sleep x1wk ( 01/15) 2-3wks still wakes nightly; 10/09/20; NOT MET; still wakes nightly; 11/21/20; NOT MET 3. Survey score improvement from to 4080 (LEFS) 4-6wks as of 10/09/20; NOT MET; as of 11/21/20; PARTIALLY MET 4. ROM increase to allow for improved ADL car transfers, dressing lowers (from 120 to 130 L knee flexion) 4-6wks no change with ADL; 110 active L knee bend; 10/09/20; NOT MET; no change with noted ADL; 120/125 L/R knee flexion; 11/21/20; PARTIALLY MET 5. Strength increase to allow for improved ADL sit to stdg transfers, stairs (from 3+/4- R/L knee to gr4+ B) 4-6wks no change; gr4-/4+ R/L knee; 10/09/20; PARTIALLY MET; still difficult with noted ADL; gr4+ L knee, gr4- R knee flex/ext; 11/21/20; PARTIALLY MET 6. Strength increase to allow for improved ADL sit to stdg transfers, stairs (from 4/4- R hip to gr4+) 4-6wks no change with noted ADL; gr4/4- R hip today; 10/09/20; NOT MET; still difficult with noted ADL; gr3+ R hip f;exion, gr4 R hip abd/ext; 11/21/20; PARTIALLY MET Planned interventions include: aquatic therapy, cryotherapy, education/instruction, electrical stimulation, gait training, home program, hot pack, kinesiotaping, manual therapy, neuromuscular re-education, self care/home management and therapeutic exercises. Frequency and duration: 3 time(s) a week, for 6 weeks, for 17 visits. Potential to achieve rehab goals is fair: chronic syndrome Progress with POC, as tolerated. Assessment Patient identity confirmed today with name/. no additions today; the patient C/O LBP during stdg exercises today; walking form (even without UE support in the parallel bars) is much better than initially. Adult Risk Screening There are no spiritual/cultural practices/values/needs that are important to know Initial Fall Risk Screening: KHOA has not fallen in the last 6 months. KHOA does not have a fear of falling. He does not need assistance with sitting, standing or walking. Does not need assistance walking in his home. He does not need assistance in an unfamiliar setting. The patient is using an assistive device. Fall Risk Screening: Patient is identified as a fall risk. Care Plan: Low Risk: Environmental for all patients and low risk patients: Offer assistance as needed or requested, keep environment free of obstacles, keep floor clean and dry, keep room lighting, wheelchair brakes on, bed/ stretcher locked and in low position if applicable, non-slip footwear if applicable, walker/cane available if needed, side rails up if applicable and pre-emptive toileting. Pain Scale: On a scale of 0 to 10, the patient rates the pain at 8. Please identify location of pain: L knee 8/10, R knee 6/10. Pain Quality: burning, pressure, sharp, tightness, throbbing and R numbness. The pain makes it hard for the patient to do these things: walking, exercise and self-care (bathing, dressing, eating). Insurance Insurance reviewed Visit number: 45 Approved number of visits: 18 Authorization date range: C-9 until 01/22/2104/28 [facility] 18v Evaluating therapist William Pastor PT. M25.561; M89.8X6; S80.02Xd; M70.51; M23.42; LATEX ALLERGY; RLE MYOTOME WEAKNESS Subjective Patient reports:. L knee 8/10; R knee 6/10; my LB also hurts right now. 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 Treatment Time in clinic started at 10:06 am Time in clinic ended at 10:50 am Total time in clinic is 44 minutes. Total timed code time is 43 minutes. Therapeutic exercise (20172): timed minutes 43, units 3 . NuStep SciFit L5 x5', UE/LE's - FWD step up 6'' step x15 L, x15 R; B UE support - HR/TR 2x10 (does uni with toe raises) -B hip flex 2 X 10 green miniband on Airex (not on airex today) - B hip abd 2x10 green miniband on Airex - Hip ext 2x10 green miniband, standing w/ foot on Airex [P] - marches x 30 with green miniband - Side stepping with green miniband x4 each dir in // bars - Mini squat 2x10 on Airex - B/L SLS with leg circumduction on green thera disc 2x15 - Modified Tandem Stance w/ ea foot on green Thera Disc 2 x30''' each foot fwd - Fwd/Bwd Gait in // bars x5 each x2 fwd/bkwd gait without UE support but with SBA - Tandem Gait fwd/bwd in // ba (more content not included)... Normal [facility] PT Progress Noteon 1 PT Progress Note Therapy Diagnosis Assessed Bone pain of knee (733.90) (M89.8X6) Chronic pain of both knees (719.46,338.29) (M25.561,M25.562,G89.2 9) Infrapatellar bursitis of right knee (726.69) (M70.51) Traumatic hematoma of left knee, subsequent encounter (V58.89,924.11) (S80.02XD) Loose body of left knee (717.6) (M23.42) Plan Goals: Goals set and discussed today. 1. Independent HEP to allow for 50% reduction in max ADL C/C sx ( L-01/18; R-11/18)2-3wks 10 L; 01/18 R; within the last 5 days; 10/09/20; NOT MET; 02/18-L; 01/18-R; max sx within the last 5 days; 11/21/20; NOT MET 2. 0/10 night time sx to allow for uninterrupted sleep x1wk ( 01/15) 2-3wks still wakes nightly; 10/09/20; NOT MET; still wakes nightly; 11/21/20; NOT MET 3. Survey score improvement from to 4080 (LEFS) 4-6wks as of 10/09/20; NOT MET; as of 11/21/20; PARTIALLY MET 4. ROM increase to allow for improved ADL car transfers, dressing lowers (from 120 to 130 L knee flexion) 4-6wks no change with ADL; 110 active L knee bend; 10/09/20; NOT MET; no change with noted ADL; 120/125 L/R knee flexion; 11/21/20; PARTIALLY MET 5. Strength increase to allow for improved ADL sit to stdg transfers, stairs (from 3+/4- R/L knee to gr4+ B) 4-6wks no change; gr4-/4+ R/L knee; 10/09/20; PARTIALLY MET; still difficult with noted ADL; gr4+ L knee, gr4- R knee flex/ext; 11/21/20; PARTIALLY MET 6. Strength increase to allow for improved ADL sit to stdg transfers, stairs (from 4/4- R hip to gr4+) 4-6wks no change with noted ADL; gr4/4- R hip today; 10/09/20; NOT MET; still difficult with noted ADL; gr3+ R hip f;exion, gr4 R hip abd/ext; 11/21/20; PARTIALLY MET Planned interventions include: aquatic therapy, cryotherapy, education/instruction, electrical stimulation, gait training, home program, hot pack, kinesiotaping, manual therapy, neuromuscular re-education, self care/home management and therapeutic exercises. Frequency and duration: 3 time(s) a week, for 6 weeks, for 17 visits. Potential to achieve rehab goals is fair: chronic syndrome Plan to continue with progressions of LE strengthening and balance/stability training to reduce pain and improve ease/tolerance with functional/community ambulation. Assessment Patient ID confirmed using Name and . Patient wearing mask throughout session today d/t COVID-19 precautions. Patient with good tolerance to treatment, no c/o increased pain/discomfort in clinic. Patient making gradual progress with strength and stability, demos improving propulsion/gross extension with step ups and decreasing use/need for UE assistance. Adult Risk Screening There are no spiritual/cultural practices/values/needs that are important to know Initial Fall Risk Screening: KHOA has not fallen in the last 6 months. KHOA does not have a fear of falling. He does not need assistance with sitting, standing or walking. Does not need assistance walking in his home. He does not need assistance in an unfamiliar setting. The patient is using an assistive device. Fall Risk Screening: Patient is identified as a fall risk. Care Plan: Low Risk: Environmental for all patients and low risk patients: Offer assistance as needed or requested, keep environment free of obstacles, keep floor clean and dry, keep room lighting, wheelchair brakes on, bed/ stretcher locked and in low position if applicable, non-slip footwear if applicable, walker/cane available if needed, side rails up if applicable and pre-emptive toileting. Pain Scale: On a scale of 0 to 10, the patient rates the pain at 8. Please identify location of pain: L knee 8/10, R knee 6/10. Pain Quality: burning, pressure, sharp, tightness, throbbing and R numbness. The pain makes it hard for the patient to do these things: walking, exercise and self-care (bathing, dressing, eating). Insurance Insurance reviewed Visit number: 44 Approved number of visits: 18 Authorization date range: until 01/22/2104/28 [facility] 18v Evaluating therapist William Pastor PT. M25.561; M89.8X6; S80.02Xd; M70.51; M23.42; LATEX ALLERGY; RLE MYOTOME WEAKNESS Subjective Patient reports:. Patient reports increased knee pain after last 2 sessions, believes it might be resulting from progression to blue mini band vs green. Patient drove for the first time recently and had RLE soreness from that. Home program performing as directed: Yes. 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 Treatment Time in clinic started at 1001 Time in clinic ended at 1046 Total time in clinic is 45 minutes. Total timed code time is 40 minutes. Therapeutic exercise (14216): timed minutes 40, units 3 . NuStep SciFit L5 x5', UE/LE's - FWD step up 6'' step x15 L, x15 R; B UE support - HR/TR 2x10 (does uni with toe raises) -B hip flex 2 X 10 green miniband on Airex - B hip abd 2x10 green miniban (more content not included)... 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 The right knee does seem to be improved after aspiration. With regards to the left knee we had a long discussion about surgical intervention. There is a number of concerning factors. His recovery will be significantly compromised because of the weakness in his right leg. It will affect his ability to get up and down steps he will have to significant increase the use of his upper extremities and his right upper extremity does have severe glenohumeral arthritis. He will also not be able to kneel on the left knee indefinitely after implants were placed because of the risk for the shear forces across the implant surfaces. He is going to finish with his current physical therapy and try to continue strengthening the right leg. We did discuss that if the pain is intermittent on the left leg I would not masters to knee arthroplasty as the recovery will not be a typical arthroplasty recovery based on his overall health. He is going to think about things and will talk next month This note has been created with voice recognition software. Please be aware that there may be grammatical or contextual errors due to the use of the software. Chief Complaint PT HERE TODAY FOR 6 WK FU BART KNEE/SHOULDER. PT STATES HE IS HAVING ALOT OF PIN BUT THINKS WITH THERAPY HAS GIVEN HIM SOME STRENGTH. History of Present Illness Patient is a very pleasant 60-year-old male who [...] The right is much improved following our aspiration. Review of Systems Constitutional: no fever, no chills, not feeling tired, no recent weight gain and no recent weight loss. ENT: no nosebleeds. Cardiovascular: no chest pain. Respiratory: no shortness of breath and no cough. Gastrointestinal: no abdominal pain, no nausea, no diarrhea and no vomiting. Musculoskeletal: no arthralgias and as noted in HPI. Integumentary: no rashes and no skin wound. Neurological: no headache. Psychiatric: no depression and no sleep disturbances. Endocrine: no muscle cramps. Hematologic/Lymphatic: no swollen glands and no tendency for easy bruising. All other systems have been reviewed and are negative for complaint. 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) Right shoulder pain, unspecified chronicity (719.41) (M25.511) Sprain of right shoulder, initial encounter (840.9) (S43.401A) Strain of right shoulder, initial encounter (840.9) (S46.911A) Tear of medial meniscus of right knee (836.0) (S83.241A) Traumatic incomplete tear of right rotator cuff, subsequent encounter (V58.89,840.4) (S46.011D) Traumatic hematoma of left knee, subsequent encounter (V58.89) (S80.02XD) Infrapatellar bursitis of right knee (726.69) (M70.51) Chronic pain of both knees (719.46) (M25.561) - BART KNEE PAIN AND RIGHT SHOULDER Loose body of left knee (717.6) (M23.42) Bone pain of knee (733.90) (M89.8X6) Past Medical History Problems No pertinent past medical history (V49.89) (Z78.9) History of Sprain of right shoulder, subsequent encounter (V58.89,840.9) (S43.401D) Resolved Date: 28 Aug 2020 Surgical History Problems History of Back surgery Family History Mother Family history of Known health problems: none Social History Problems Daily caffeine consumption Does not have living will Never a smoker No advance directives (V49.89) (Z78.9) Non-smoker (V49.89) (Z78.9) Allergies Medication No Known Drug Allergies Recorded By: Michelet Avendaño; 06/15/2019 10:19:19 AM NonMedication Latex Recorded By: Jackie Funk; 06/05/2019 9:06:12 AM Current Meds Medication NameInstruction Cyclobenzaprine HCl - 10 MG Oral TabletTAKE 1 TABLET 3 JEFF (more content not included)... Normal [facility] PT Progress Noteon 1 PT Progress Note Therapy Diagnosis Assessed Traumatic hematoma of left knee, subsequent encounter (V58.89,924.11) (S80.02XD) Loose body of left knee (717.6) (M23.42) Infrapatellar bursitis of right knee (726.69) (M70.51) Bone pain of knee (733.90) (M89.8X6) Chronic pain of both knees (719.46,338.29) (M25.561,M25.562,G89.2 9) Plan Goals: Goals set and discussed today. 1. Independent HEP to allow for 50% reduction in max ADL C/C sx ( L-01/18; R-11/18)2-3wks 9/10 L; 7/10 R; within the last 5 days; 10/09/20; NOT MET; 8/10-L; 710-R; max sx within the last 5 days; 11/21/20; NOT MET 2. 0/10 night time sx to allow for uninterrupted sleep x1wk ( 01/15) 2-3wks still wakes nightly; 10/09/20; NOT MET; still wakes nightly; 11/21/20; NOT MET 3. Survey score improvement from to 40/80 (LEFS) 4-6wks as of 10/09/20; NOT MET; as of 11/21/20; PARTIALLY MET 4. ROM increase to allow for improved ADL car transfers, dressing lowers (from 120 to 130 L knee flexion) 4-6wks no change with ADL; 110 active L knee bend; 10/09/20; NOT MET; no change with noted ADL; 120/125 L/R knee flexion; 11/21/20; PARTIALLY MET 5. Strength increase to allow for improved ADL sit to stdg transfers, stairs (from 3+/4- R/L knee to gr4+ B) 4-6wks no change; gr4-/4+ R/L knee; 10/09/20; PARTIALLY MET; still difficult with noted ADL; gr4+ L knee, gr4- R knee flex/ext; 11/21/20; PARTIALLY MET 6. Strength increase to allow for improved ADL sit to stdg transfers, stairs (from 4/4- R hip to gr4+) 4-6wks no change with noted ADL; gr4/4- R hip today; 10/09/20; NOT MET; still difficult with noted ADL; gr3+ R hip f;exion, gr4 R hip abd/ext; 11/21/20; PARTIALLY MET Planned interventions include: aquatic therapy, cryotherapy, education/instruction, electrical stimulation, gait training, home program, hot pack, kinesiotaping, manual therapy, neuromuscular re-education, self care/home management and therapeutic exercises. Frequency and duration: 3 time(s) a week, for 6 weeks, for 17 visits. Potential to achieve rehab goals is fair: chronic syndrome Plan to continue POC as tolerated. Continue working on dynamic stability exercises and increasing reps/ resistance for strengthening to avoid fatigue and improve ADL's. Assessment PT tolerated treatment well with no increased pain. Noted slower completion of 3-way hip exercises due to an increased resistance and fatigue of those muscles. PUNEET Lerner participated in treatment this date with continuous supervision and all clinical decision making by Emeterio Palacio PTA, CCI. Adult Risk Screening There are no spiritual/cultural practices/values/needs that are important to know Initial Fall Risk Screening: KHOA has not fallen in the last 6 months. KHOA does not have a fear of falling. He does not need assistance with sitting, standing or walking. Does not need assistance walking in his home. He does not need assistance in an unfamiliar setting. The patient is using an assistive device. Fall Risk Screening: Patient is identified as a fall risk. Care Plan: Low Risk: Environmental for all patients and low risk patients: Offer assistance as needed or requested, keep environment free of obstacles, keep floor clean and dry, keep room lighting, wheelchair brakes on, bed/ stretcher locked and in low position if applicable, non-slip footwear if applicable, walker/cane available if needed, side rails up if applicable and pre-emptive toileting. Pain Scale: On a scale of 0 to 10, the patient rates the pain at 8. Please identify location of pain: L knee 8/10, R knee 6/10. Pain Quality: burning, pressure, sharp, tightness, throbbing and R numbness. The pain makes it hard for the patient to do these things: walking, exercise and self-care (bathing, dressing, eating). Insurance Insurance reviewed Visit number: 43 Approved number of visits: 18 Authorization date range: until 01/22/2103/29 [facility] 18v Evaluating therapist William Pastor PT. M25.561; M89.8X6; S80.02Xd; M70.51; M23.42; LATEX ALLERGY; RLE MYOTOME WEAKNESS Subjective Patient reports:. Pt reported pain in L knee 8/10, R knee /10, LB 6/10, R shoulder 10/10. Pt reported he is sore in his LB from last treatment. Pt stated he woke up with hives this morning on L knee again but when away on their own. PT reported L knee feels more swollen today. Home program performing as directed: Yes. 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 Treatment Time in clinic started at 1000 am Time in clinic ended at 1044 am Total time in clinic is 44 minutes. Total timed code time is 40 minutes. Therapeutic exercise (42045): timed minutes 40, units 3 . NuStep SciFit L5 x5', UE/LE's - HR/TR 2x10 (does uni with toe raises) - Mini squat 2x10 on Airex [P] -B hip flex 2 X 10 blue thera loop on Airex [P] - B hip abd 2x10 blue thera loop on Airex (more content not included)... Normal [facility] Tobacco Screening.on 021 Fall risk assessment a) No falls within the last year [facility] Work Phone: Tobacco use status [facility] b) No [facility] Work Phone: PT Progress Noteon 1 PT Progress Note Therapy Diagnosis Assessed Chronic pain of both knees (719.46,338.29) (M25.561,M25.562,G89.2 9) Bone pain of knee (733.90) (M89.8X6) Infrapatellar bursitis of right knee (726.69) (M70.51) Loose body of left knee (717.6) (M23.42) Traumatic hematoma of left knee, subsequent encounter (V58.89,924.11) (S80.02XD) Plan Goals: Goals set and discussed today. 1. Independent HEP to allow for 50% reduction in max ADL C/C sx ( L-10; R-11/18)2-3wks 9/10 L; 7/10 R; within the last 5 days; 10/09/20; NOT MET; 8/10-L; 01/18-R; max sx within the last 5 days; 11/21/20; NOT MET 2. 0/10 night time sx to allow for uninterrupted sleep x1wk ( 01/15) 2-3wks still wakes nightly; 10/09/20; NOT MET; still wakes nightly; 11/21/20; NOT MET 3. Survey score improvement from to 40 (LEFS) 4-6wks as of 10/09/20; NOT MET; as of 11/21/20; PARTIALLY MET 4. ROM increase to allow for improved ADL car transfers, dressing lowers (from 120 to 130 L knee flexion) 4-6wks no change with ADL; 110 active L knee bend; 10/09/20; NOT MET; no change with noted ADL; 120/125 L/R knee flexion; 11/21/20; PARTIALLY MET 5. Strength increase to allow for improved ADL sit to stdg transfers, stairs (from 3+/4- R/L knee to gr4+ B) 4-6wks no change; gr4-/4+ R/L knee; 10/09/20; PARTIALLY MET; still difficult with noted ADL; gr4+ L knee, gr4- R knee flex/ext; 11/21/20; PARTIALLY MET 6. Strength increase to allow for improved ADL sit to stdg transfers, stairs (from 4/4- R hip to gr4+) 4-6wks no change with noted ADL; gr4/4- R hip today; 10/09/20; NOT MET; still difficult with noted ADL; gr3+ R hip f;exion, gr4 R hip abd/ext; 11/21/20; PARTIALLY MET Planned interventions include: aquatic therapy, cryotherapy, education/instruction, electrical stimulation, gait training, home program, hot pack, kinesiotaping, manual therapy, neuromuscular re-education, self care/home management and therapeutic exercises. Frequency and duration: 3 time(s) a week, for 6 weeks, for 17 visits. Potential to achieve rehab goals is fair: chronic syndrome Plan to continue POC as tolerated. Trial adding dynamic balance and stability exercise to assist with gait. Assessment Patient ID confirmed using Name and . Patient wearing mask throughout session today d/t COVID-19 precautions. Pt tolerated treatment well. Pt hip strength is improving as shown by an increase from green to blue band, pt complained of pain around ankles due to band rubbing and being tight. Pt is still showing deficits of SLS balance. PUNEET Lerner participated in treatment this date with continuous supervision and all clinical decision making by Emeterio Palacio, PATTY, CCI. Adult Risk Screening There are no spiritual/cultural practices/values/needs that are important to know Initial Fall Risk Screening: KHOA has not fallen in the last 6 months. KHOA does not have a fear of falling. He does not need assistance with sitting, standing or walking. Does not need assistance walking in his home. He does not need assistance in an unfamiliar setting. The patient is using an assistive device. Fall Risk Screening: Patient is identified as a fall risk. Care Plan: Low Risk: Environmental for all patients and low risk patients: Offer assistance as needed or requested, keep environment free of obstacles, keep floor clean and dry, keep room lighting, wheelchair brakes on, bed/ stretcher locked and in low position if applicable, non-slip footwear if applicable, walker/cane available if needed, side rails up if applicable and pre-emptive toileting. Pain Scale: On a scale of 0 to 10, the patient rates the pain at 8. Please identify location of pain: L knee 8/10, R knee 5/10. Pain Quality: burning, pressure, sharp, tightness, throbbing and R numbness. The pain makes it hard for the patient to do these things: walking, exercise and self-care (bathing, dressing, eating). Insurance Insurance reviewed Visit number: 42 Approved number of visits: 18 Authorization date range: - until 01/22/2103/29 [facility] 18v Evaluating therapist William Pastor PT. M25.561; M89.8X6; S80.02Xd; M70.51; M23.42; LATEX ALLERGY; RLE MYOTOME WEAKNESS Subjective Patient reports:. Pt reported pain 7/10 in low back, L knee 8/10, R knee 6/10, R shoulder 10/10. Pt woke up with hives on L knee this morning, put ice on it and took antihistamine around 8am. Pt stated hives have gone down and stopped itching since. Pt drove to [place] yesterday and stated pain 10/10 in low back and hips from being in the car. Pt was able to relieve back pain when he got home by doing stretches and walking. Home program performing as directed: Yes. 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 Treatment Time in clinic started at 1001 am Time in clinic ended at 1046 am Total time in clinic is 45 minutes. Total timed code time is (more content not included)... Normal [employer] PT Progress Noteon 1 PT Progress Note Therapy Diagnosis Assessed Bone pain of knee (733.90) (M89.8X6) Traumatic hematoma of left knee, subsequent encounter (V58.89,924.11) (S80.02XD) Loose body of left knee (717.6) (M23.42) Infrapatellar bursitis of right knee (726.69) (M70.51) Chronic pain of both knees (719.46,338.29) (M25.561,M25.562,G89.2 9) Plan Goals: Goals set and discussed today. 1. Independent HEP to allow for 50% reduction in max ADL C/C sx ( L-01/18; R-11/18)2-3wks 03/21 L; 01/18 R; within the last 5 days; 10/09/20; NOT MET; 02/18-L; 01/18-R; max sx within the last 5 days; 11/21/20; NOT MET 2. 010 night time sx to allow for uninterrupted sleep x1wk ( 01/15) 2-3wks still wakes nightly; 10/09/20; NOT MET; still wakes nightly; 11/21/20; NOT MET 3. Survey score improvement from to 40/80 (LEFS) 4-6wks as of 10/09/20; NOT MET; 1080 as of 11/21/20; PARTIALLY MET 4. ROM increase to allow for improved ADL car transfers, dressing lowers (from 120 to 130 L knee flexion) 4-6wks no change with ADL; 110 active L knee bend; 10/09/20; NOT MET; no change with noted ADL; 120/125 L/R knee flexion; 11/21/20; PARTIALLY MET 5. Strength increase to allow for improved ADL sit to stdg transfers, stairs (from 3+/4- R/L knee to gr4+ B) 4-6wks no change; gr4-/4+ R/L knee; 10/09/20; PARTIALLY MET; still difficult with noted ADL; gr4+ L knee, gr4- R knee flex/ext; 11/21/20; PARTIALLY MET 6. Strength increase to allow for improved ADL sit to stdg transfers, stairs (from 4/4- R hip to gr4+) 4-6wks no change with noted ADL; gr4/4- R hip today; 10/09/20; NOT MET; still difficult with noted ADL; gr3+ R hip f;exion, gr4 R hip abd/ext; 11/21/20; PARTIALLY MET Planned interventions include: aquatic therapy, cryotherapy, education/instruction, electrical stimulation, gait training, home program, hot pack, kinesiotaping, manual therapy, neuromuscular re-education, self care/home management and therapeutic exercises. Frequency and duration: 3 time(s) a week, for 6 weeks, for 17 visits. Potential to achieve rehab goals is fair: chronic syndrome Plan to continue POC as tolerated. Trial increasing resistance for 4 way hip from green mini band to blue. Trial stair negotiation again with 1 UE assist if pt has decreased pain. Assessment Patient ID confirmed using Name and . Patient wearing mask throughout session today d/t COVID-19 precautions. Pt was able to tolerate treatment today with no c/o of increased pain/discomfort. Pt is showing improvement with Quad strength as shown by increase in weight for LAQ as well as HSC with an increase in repetitions. Pt is still showing difficulty with stair negotiation and safety. PUNEET Lerner participated in treatment this date with continuous supervision and all clinical decision making by Emeterio Palacio, DATA ENTRY TECHNICIAN, CCI. Adult Risk Screening There are no spiritual/cultural practices/values/needs that are important to know Initial Fall Risk Screening: KHOA has not fallen in the last 6 months. KHOA does not have a fear of falling. He does not need assistance with sitting, standing or walking. Does not need assistance walking in his home. He does not need assistance in an unfamiliar setting. The patient is using an assistive device. Fall Risk Screening: Patient is identified as a fall risk. Care Plan: Low Risk: Environmental for all patients and low risk patients: Offer assistance as needed or requested, keep environment free of obstacles, keep floor clean and dry, keep room lighting, wheelchair brakes on, bed/ stretcher locked and in low position if applicable, non-slip footwear if applicable, walker/cane available if needed, side rails up if applicable and pre-emptive toileting. Pain Scale: On a scale of 0 to 10, the patient rates the pain at 8. Please identify location of pain: L knee 8/10, R knee 5/10. Pain Quality: burning, pressure, sharp, tightness, throbbing and R numbness. The pain makes it hard for the patient to do these things: walking, exercise and self-care (bathing, dressing, eating). Insurance Insurance reviewed Visit number: 41 Approved number of visits: 18 Authorization date range: until 01/22/2103/29 [facility] 18v Evaluating therapist William Pastor PT. M25.561; M89.8X6; S80.02Xd; M70.51; M23.42; LATEX ALLERGY; RLE MYOTOME WEAKNESS Subjective Patient reports:. Pt reported sharp, stabbing back pain 9/10, states stairs last treatment made it hurt very bad and it is just now getting better. Pt stated standing, or bending over causes sharp pain. Pt reported burning, throbbing, and stabbing 9/10 pain in L knee, L knee is extra sensitive to touch today. Pt reported 6/10 pain in R knee, states R knee is still numb. Pt stated that the new stepping exercises made the pain worse through his back, causing him to sit more, thus causing R and L knee to be in more pain due to un use over the weekend. Home program performing as directed: Yes. Precautions: Fall Risk: low Pertinent medical HX includes: R RTC tear/arthritis; L shldr pain; R shl (more content not included)... Normal [facility] PT Progress Noteon 1 PT Progress Note Therapy Diagnosis Assessed Chronic pain of both knees (719.46,338.29) (M25.561,M25.562,G89.2 9) Infrapatellar bursitis of right knee (726.69) (M70.51) Loose body of left knee (717.6) (M23.42) Traumatic hematoma of left knee, subsequent encounter (V58.89,924.11) (S80.02XD) Bone pain of knee (733.90) (M89.8X6) Plan Goals: Goals set and discussed today. 1. Independent HEP to allow for 50% reduction in max ADL C/C sx ( L-10; R-11/18)2-3wks 9/10 L; /10 R; within the last 5 days; 10/09/20; NOT MET; 8-L; 01/18-R; max sx within the last 5 days; 11/21/20; NOT MET 2. 0/10 night time sx to allow for uninterrupted sleep x1wk ( 01/15) 2-3wks still wakes nightly; 10/09/20; NOT MET; still wakes nightly; 11/21/20; NOT MET 3. Survey score improvement from 3/80 to 40/80 (LEFS) 4-6wks as of 10/09/20; NOT MET; 10/80 as of 11/21/20; PARTIALLY MET 4. ROM increase to allow for improved ADL car transfers, dressing lowers (from 120 to 130 L knee flexion) 4-6wks no change with ADL; 110 active L knee bend; 10/09/20; NOT MET; no change with noted ADL; 120/125 L/R knee flexion; 11/21/20; PARTIALLY MET 5. Strength increase to allow for improved ADL sit to stdg transfers, stairs (from 3+/4- R/L knee to gr4+ B) 4-6wks no change; gr4-/4+ R/L knee; 10/09/20; PARTIALLY MET; still difficult with noted ADL; gr4+ L knee, gr4- R knee flex/ext; 11/21/20; PARTIALLY MET 6. Strength increase to allow for improved ADL sit to stdg transfers, stairs (from 4/4- R hip to gr4+) 4-6wks no change with noted ADL; gr4/4- R hip today; 10/09/20; NOT MET; still difficult with noted ADL; gr3+ R hip f;exion, gr4 R hip abd/ext; 11/21/20; PARTIALLY MET Planned interventions include: aquatic therapy, cryotherapy, education/instruction, electrical stimulation, gait training, home program, hot pack, kinesiotaping, manual therapy, neuromuscular re-education, self care/home management and therapeutic exercises. Frequency and duration: 3 time(s) a week, for 6 weeks, for 17 visits. Potential to achieve rehab goals is fair: chronic syndrome Plan to continue strengthening and dynamic balance exercise to improve ADL's. Continue to work on reciprocal stair negation for ease and safety. Assessment Patient ID confirmed using Name and . Patient wearing mask throughout session today d/t COVID-19 precautions. Pt tolerated treatment well with no increased pain/ discomfort. Pt strength is still improving, now able to go up and down one flight of stairs at home before fatiguing, has progressed to 4 steps ups with 1 UE assist this visit. Progressions were made to increase propulsion with LE vs UE with handrail. Pt is still unable to DF left foot as well as go up a 6 step w/o 2 UE support. PUNEET Lerner participated in treatment this date with continuous supervision and all clinical decision making by Emeterio Palacio PTA, CCI. Adult Risk Screening There are no spiritual/cultural practices/values/needs that are important to know Initial Fall Risk Screening: KHOA has not fallen in the last 6 months. KHOA does not have a fear of falling. He does not need assistance with sitting, standing or walking. Does not need assistance walking in his home. He does not need assistance in an unfamiliar setting. The patient is using an assistive device. Fall Risk Screening: Patient is identified as a fall risk. Care Plan: Low Risk: Environmental for all patients and low risk patients: Offer assistance as needed or requested, keep environment free of obstacles, keep floor clean and dry, keep room lighting, wheelchair brakes on, bed/ stretcher locked and in low position if applicable, non-slip footwear if applicable, walker/cane available if needed, side rails up if applicable and pre-emptive toileting. Pain Scale: On a scale of 0 to 10, the patient rates the pain at 8. Please identify location of pain: L knee 8/10, R knee 5/10. Pain Quality: burning, pressure, sharp, tightness, throbbing and R numbness. The pain makes it hard for the patient to do these things: walking, exercise and self-care (bathing, dressing, eating). Insurance Insurance reviewed Visit number: 40 Approved number of visits: 18 Authorization date range: - until 01/22/2103/29 [facility] 18v Evaluating therapist William Pastor PT. M25.561; M89.8X6; S80.02Xd; M70.51; M23.42; LATEX ALLERGY; RLE MYOTOME WEAKNESS Subjective Patient reports:. Pt reported 8/10 throbbing, burning pain in left knee, 6/10 numbness in right knee, low back burning, sharp pain 8/10, and right shoulder 10/10. Pt feels like is crippled over all the time from back pain. Pt feels like he is getting stronger and is able to do 1 flight of stairs before fatigue sets in. Home program performing as directed: Yes. 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 Treatment Time in clinic started at 1000 Time in clin (more content not included)... Normal [facility] PT Progress Noteon 1 PT Progress Note Therapy Diagnosis Assessed Bone pain of knee (733.90) (M89.8X6) Traumatic hematoma of left knee, subsequent encounter (V58.89,924.11) (S80.02XD) Loose body of left knee (717.6) (M23.42) Infrapatellar bursitis of right knee (726.69) (M70.51) Chronic pain of both knees (719.46,338.29) (M25.561,M25.562,G89.2 9) Plan Goals: Goals set and discussed today. 1. Independent HEP to allow for 50% reduction in max ADL C/C sx ( L-01/18; R-11/18)2-3wks 9/10 L; /10 R; within the last 5 days; 10/09/20; NOT MET; 02/18-L; 01/18-R; max sx within the last 5 days; 11/21/20; NOT MET 2. 010 night time sx to allow for uninterrupted sleep x1wk ( 01/15) 2-3wks still wakes nightly; 10/09/20; NOT MET; still wakes nightly; 11/21/20; NOT MET 3. Survey score improvement from to 40/80 (LEFS) 4-6wks 5 as of 10/09/20; NOT MET; 10/ as of 11/21/20; PARTIALLY MET 4. ROM increase to allow for improved ADL car transfers, dressing lowers (from 120 to 130 L knee flexion) 4-6wks no change with ADL; 110 active L knee bend; 10/09/20; NOT MET; no change with noted ADL; 120/125 L/R knee flexion; 11/21/20; PARTIALLY MET 5. Strength increase to allow for improved ADL sit to stdg transfers, stairs (from 3+/4- R/L knee to gr4+ B) 4-6wks no change; gr4-/4+ R/L knee; 10/09/20; PARTIALLY MET; still difficult with noted ADL; gr4+ L knee, gr4- R knee flex/ext; 11/21/20; PARTIALLY MET 6. Strength increase to allow for improved ADL sit to stdg transfers, stairs (from 4/4- R hip to gr4+) 4-6wks no change with noted ADL; gr4/4- R hip today; 10/09/20; NOT MET; still difficult with noted ADL; gr3+ R hip f;exion, gr4 R hip abd/ext; 11/21/20; PARTIALLY MET Planned interventions include: aquatic therapy, cryotherapy, education/instruction, electrical stimulation, gait training, home program, hot pack, kinesiotaping, manual therapy, neuromuscular re-education, self care/home management and therapeutic exercises. Frequency and duration: 3 time(s) a week, for 6 weeks, for 17 visits. Potential to achieve rehab goals is fair: chronic syndrome Plan to continue with strengthening and dynamic balance exercises to improve stability and ease with gait and ADL's. Assessment Patient ID confirmed using Name and . Patient wearing mask throughout session today d/t COVID-19 precautions. Pt able to complete treatment today with no increased pain/discomfort. Pt is improving in strength and is able to complete progressions of reps and resistance to exercises. Pt unable to complete DF bilaterally, has to do unilaterally with an assist for the R foot. PUNEET Lerner participated in treatment this date with continuous supervision and all clinical decision making by Emeterio Palacio, PATTY, CCI. Adult Risk Screening There are no spiritual/cultural practices/values/needs that are important to know Initial Fall Risk Screening: KHOA has not fallen in the last 6 months. KHOA does not have a fear of falling. He does not need assistance with sitting, standing or walking. Does not need assistance walking in his home. He does not need assistance in an unfamiliar setting. The patient is using an assistive device. Fall Risk Screening: Patient is identified as a fall risk. Care Plan: Low Risk: Environmental for all patients and low risk patients: Offer assistance as needed or requested, keep environment free of obstacles, keep floor clean and dry, keep room lighting, wheelchair brakes on, bed/ stretcher locked and in low position if applicable, non-slip footwear if applicable, walker/cane available if needed, side rails up if applicable and pre-emptive toileting. Pain Scale: On a scale of 0 to 10, the patient rates the pain at 8. Please identify location of pain: L knee 8/10, R knee 5/10. Pain Quality: burning, pressure, sharp, tightness, throbbing and R numbness. The pain makes it hard for the patient to do these things: walking, exercise and self-care (bathing, dressing, eating). Insurance Insurance reviewed Visit number: 39 Approved number of visits: 18 Authorization date range: until 01/22/2103/29 [facility] 18v Evaluating therapist William Pastor PT. M25.561; M89.8X6; S80.02Xd; M70.51; M23.42; LATEX ALLERGY; RLE MYOTOME WEAKNESS Subjective Patient reports:. Pt stated pain in L knee 8/10, 10/10 in R shoulder, 6/10 in lower back. States lower back is more crippling than the L knee. Pain in R knee 5/10 feels like an overwork pain, R leg feels numb so he is having to over emphasis on gait to keep from tripping, feels like even though R leg is numb he is able to do more and move better in clinic. Home program performing as directed: Yes. 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 Treatment Time in clinic started at 1001 am Time in clinic ended at 1043 am Total time in clinic is 42 minutes. Total timed code time is 40 minutes. Therapeu (more content not included)... Normal [facility] PT Progress Noteon 1 PT Progress Note Therapy Diagnosis Assessed Bone pain of knee (733.90) (M89.8X6) Chronic pain of both knees (719.46,338.29) (M25.561,M25.562,G89.2 9) Infrapatellar bursitis of right knee (726.69) (M70.51) Loose body of left knee (717.6) (M23.42) Traumatic hematoma of left knee, subsequent encounter (V58.89,924.11) (S80.02XD) Plan Goals: Goals set and discussed today. 1. Independent HEP to allow for 50% reduction in max ADL C/C sx ( L-01/18; R-11/18)2-3wks 910 L; 10 R; within the last 5 days; 10/09/20; NOT MET; 02/18-L; 01/18-R; max sx within the last 5 days; 11/21/20; NOT MET 2. 0/10 night time sx to allow for uninterrupted sleep x1wk ( 01/15) 2-3wks still wakes nightly; 10/09/20; NOT MET; still wakes nightly; 11/21/20; NOT MET 3. Survey score improvement from to 40/80 (LEFS) 4-6wks 5 as of 10/09/20; NOT MET; 1080 as of 11/21/20; PARTIALLY MET 4. ROM increase to allow for improved ADL car transfers, dressing lowers (from 120 to 130 L knee flexion) 4-6wks no change with ADL; 110 active L knee bend; 10/09/20; NOT MET; no change with noted ADL; 120/125 L/R knee flexion; 11/21/20; PARTIALLY MET 5. Strength increase to allow for improved ADL sit to stdg transfers, stairs (from 3+/4- R/L knee to gr4+ B) 4-6wks no change; gr4-/4+ R/L knee; 10/09/20; PARTIALLY MET; still difficult with noted ADL; gr4+ L knee, gr4- R knee flex/ext; 11/21/20; PARTIALLY MET 6. Strength increase to allow for improved ADL sit to stdg transfers, stairs (from 4/4- R hip to gr4+) 4-6wks no change with noted ADL; gr4/4- R hip today; 10/09/20; NOT MET; still difficult with noted ADL; gr3+ R hip f;exion, gr4 R hip abd/ext; 11/21/20; PARTIALLY MET Planned interventions include: aquatic therapy, cryotherapy, education/instruction, electrical stimulation, gait training, home program, hot pack, kinesiotaping, manual therapy, neuromuscular re-education, self care/home management and therapeutic exercises. Frequency and duration: 3 time(s) a week, for 6 weeks, for 17 visits. Potential to achieve rehab goals is fair: chronic syndrome Plan to continue with ex's for improved gait and ease of ADL's. - MA. Assessment Patient identified by name AND . Patient wore a mask during treatment d/t Covid-19 precautions. Treatment consisted of ther ex's. Patient with weakness noted with DF and completes each leg individually as compared to bilaterally. Stands with L foot on green oval pad with standing bilateral ex's to clear R foot with ex's. Numbness increased in R LE with tandem gait FWD/BWD, but decreased afterwards. Adult Risk Screening There are no spiritual/cultural practices/values/needs that are important to know Initial Fall Risk Screening: KHOA has not fallen in the last 6 months. KHOA does not have a fear of falling. He does not need assistance with sitting, standing or walking. Does not need assistance walking in his home. He does not need assistance in an unfamiliar setting. The patient is using an assistive device. Fall Risk Screening: Patient is identified as a fall risk. Care Plan: Low Risk: Environmental for all patients and low risk patients: Offer assistance as needed or requested, keep environment free of obstacles, keep floor clean and dry, keep room lighting, wheelchair brakes on, bed/ stretcher locked and in low position if applicable, non-slip footwear if applicable, walker/cane available if needed, side rails up if applicable and pre-emptive toileting. Pain Scale: On a scale of 0 to 10, the patient rates the pain at 8. Please identify location of pain: L knee 8/10, R knee 6/10. Pain Quality: burning, pressure, sharp, tightness, throbbing and R numbness. The pain makes it hard for the patient to do these things: walking, exercise and self-care (bathing, dressing, eating). Insurance Insurance reviewed Visit number: 38 Approved number of visits: 18 Authorization date range: until 01/22/2102/26 [facility] 18v Evaluating therapist William Pastor PT. M25.561; M89.8X6; S80.02Xd; M70.51; M23.42; LATEX ALLERGY; RLE MYOTOME WEAKNESS Subjective Patient reports:. States that the last couple of weeks he has had pain everywhere. Reports L knee pain of 8/10 and R knee pain of 6/10 pretreatment. States that his knees are not better with therapy. 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 Treatment Time in clinic started at 11:34 am Time in clinic ended at 12:25 pm Total time in clinic is 51 minutes. Total timed code time is 48 minutes. Therapeutic exercise (83312): timed minutes 48, units 3 . NuStep SciFit L4.5 x5', UE/LE's - HR/TR 2x10 (does uni with toe raises) - Mini squat 2x10 - B hip abd 2x10 green thera loop, standing w/L foot on green thera disc - Hip ext 2x10 green thera loop, standing w/ L foot on green thera disc - marches x 30 with green thera loop - Side stepping with green thera loo (more content not included)... Normal [facility] PT Progress Noteon 1 PT Progress Note Therapy Diagnosis Assessed Bone pain of knee (733.90) (M89.8X6) Chronic pain of both knees (719.46,338.29) (M25.561,M25.562,G89.2 9) Infrapatellar bursitis of right knee (726.69) (M70.51) Loose body of left knee (717.6) (M23.42) Traumatic hematoma of left knee, subsequent encounter (V58.89,924.11) (S80.02XD) Plan Goals: Goals set and discussed today. 1. Independent HEP to allow for 50% reduction in max ADL C/C sx ( L-01/18; R-11/18)2-3wks 9/10 L; 01/18 R; within the last 5 days; 10/09/20; NOT MET; 02/18-L; 01/18-R; max sx within the last 5 days; 11/21/20; NOT MET 2. 0/10 night time sx to allow for uninterrupted sleep x1wk ( 01/15) 2-3wks still wakes nightly; 10/09/20; NOT MET; still wakes nightly; 11/21/20; NOT MET 3. Survey score improvement from 3 to 40/80 (LEFS) 4-6wks 5 as of 10/09/20; NOT MET; 10 as of 11/21/20; PARTIALLY MET 4. ROM increase to allow for improved ADL car transfers, dressing lowers (from 120 to 130 L knee flexion) 4-6wks no change with ADL; 110 active L knee bend; 10/09/20; NOT MET; no change with noted ADL; 120/125 L/R knee flexion; 11/21/20; PARTIALLY MET 5. Strength increase to allow for improved ADL sit to stdg transfers, stairs (from 3+/4- R/L knee to gr4+ B) 4-6wks no change; gr4-/4+ R/L knee; 10/09/20; PARTIALLY MET; still difficult with noted ADL; gr4+ L knee, gr4- R knee flex/ext; 11/21/20; PARTIALLY MET 6. Strength increase to allow for improved ADL sit to stdg transfers, stairs (from 4/4- R hip to gr4+) 4-6wks no change with noted ADL; gr4/4- R hip today; 10/09/20; NOT MET; still difficult with noted ADL; gr3+ R hip f;exion, gr4 R hip abd/ext; 11/21/20; PARTIALLY MET Planned interventions include: aquatic therapy, cryotherapy, education/instruction, electrical stimulation, gait training, home program, hot pack, kinesiotaping, manual therapy, neuromuscular re-education, self care/home management and therapeutic exercises. Frequency and duration: 3 time(s) a week, for 6 weeks, for 17 visits. Potential to achieve rehab goals is fair: chronic syndrome Plan to continue with progressions of LE strength/stability to reduce pain and improve ease/safety with functional/community ambulation. Assessment Patient ID confirmed using Name and . Patient wearing mask throughout session today d/t COVID-19 precautions. Patient with good tolerance to treatment, no c/o increased pain/discomfort in clinic. Patient demos improving strength and was able to complete progressions of reps/resistance with multiple exercises this date. Adult Risk Screening There are no spiritual/cultural practices/values/needs that are important to know Initial Fall Risk Screening: KHOA has not fallen in the last 6 months. KHOA does not have a fear of falling. He does not need assistance with sitting, standing or walking. Does not need assistance walking in his home. He does not need assistance in an unfamiliar setting. The patient is using an assistive device. Fall Risk Screening: Patient is identified as a fall risk. Care Plan: Low Risk: Environmental for all patients and low risk patients: Offer assistance as needed or requested, keep environment free of obstacles, keep floor clean and dry, keep room lighting, wheelchair brakes on, bed/ stretcher locked and in low position if applicable, non-slip footwear if applicable, walker/cane available if needed, side rails up if applicable and pre-emptive toileting. Pain Scale: On a scale of 0 to 10, the patient rates the pain at 9. Please identify location of pain: L knee 9/10, R knee 6/10. Pain Quality: burning, pressure, sharp, tightness, throbbing and R numbness. The pain makes it hard for the patient to do these things: walking, exercise and self-care (bathing, dressing, eating). Insurance Insurance reviewed Visit number: 37 Approved number of visits: 18 Authorization date range: C- until 01/22/2101/26 [facility] 18v Evaluating therapist William Pastor PT. M25.561; M89.8X6; S80.02Xd; M70.51; M23.42; LATEX ALLERGY; RLE MYOTOME WEAKNESS Subjective Patient reports:. Patient continues to present with pain and discomfort in B knees which limits tolerance to walking/standing. No new c/o. Home program performing as directed: Yes. 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 Treatment Time in clinic started at 1002 Time in clinic ended at 1045 Total time in clinic is 43 minutes. Total timed code time is 40 minutes. Therapeutic exercise (78108): timed minutes 40, units 3 . NuStep SciFit L4.5 5' - HR/TR 2x10 - Mini squat 2x10 - B hip abd 2x10 green mini band - Hip ext 2x10 green mini band - marches x 30 with green mini band - B/L SLS with leg circumduction on green theradisc x10 -Side stepping with green mini band x6 each dir in // bars -step up 6'' step x15 each LE -Modified Tandem Stance on Thera Disc 2 x (more content not included)... [facility] PT Progress Noteon 1 PT Progress Note Therapy Diagnosis Assessed Loose body of left knee (717.6) (M23.42) Infrapatellar bursitis of right knee (726.69) (M70.51) Chronic pain of both knees (719.46,338.29) (M25.561,M25.562,G89.2 9) Bone pain of knee (733.90) (M89.8X6) Plan Goals: Goals set and discussed today. 1. Independent HEP to allow for 50% reduction in max ADL C/C sx ( L-01/18; R-11/18)2-3wks 9/10 L; 01/18 R; within the last 5 days; 10/09/20; NOT MET; 8-L; 01/18-R; max sx within the last 5 days; 11/21/20; NOT MET 2. 0/10 night time sx to allow for uninterrupted sleep x1wk ( 01/15) 2-3wks still wakes nightly; 10/09/20; NOT MET; still wakes nightly; 11/21/20; NOT MET 3. Survey score improvement from 80 to 40/80 (LEFS) 4-6wks 5 as of 10/09/20; NOT MET; 10/80 as of 11/21/20; PARTIALLY MET 4. ROM increase to allow for improved ADL car transfers, dressing lowers (from 120 to 130 L knee flexion) 4-6wks no change with ADL; 110 active L knee bend; 10/09/20; NOT MET; no change with noted ADL; 120/125 L/R knee flexion; 11/21/20; PARTIALLY MET 5. Strength increase to allow for improved ADL sit to stdg transfers, stairs (from 3+/4- R/L knee to gr4+ B) 4-6wks no change; gr4-/4+ R/L knee; 10/09/20; PARTIALLY MET; still difficult with noted ADL; gr4+ L knee, gr4- R knee flex/ext; 11/21/20; PARTIALLY MET 6. Strength increase to allow for improved ADL sit to stdg transfers, stairs (from 4/4- R hip to gr4+) 4-6wks no change with noted ADL; gr4/4- R hip today; 10/09/20; NOT MET; still difficult with noted ADL; gr3+ R hip f;exion, gr4 R hip abd/ext; 11/21/20; PARTIALLY MET Planned interventions include: aquatic therapy, cryotherapy, education/instruction, electrical stimulation, gait training, home program, hot pack, kinesiotaping, manual therapy, neuromuscular re-education, self care/home management and therapeutic exercises. Frequency and duration: 3 time(s) a week, for 6 weeks, for 17 visits. Potential to achieve rehab goals is fair: chronic syndrome Plan to continue with progressions of LE/Hip strengthening as tolerated to reduce pain and improve ease/tolerance with functional/community ambulation. Assessment Patient ID confirmed using Name and . Patient wearing mask throughout session today d/t COVID-19 precautions. Patient able to complete exercises with appropriate level of challenge/difficulty, making progress with strength/stability but continues to have pain and extension strength deficits with R knee but patient was able to increase reps on 6'' step showing improvement in CKC strength. Adult Risk Screening There are no spiritual/cultural practices/values/needs that are important to know Initial Fall Risk Screening: KHOA has not fallen in the last 6 months. KHOA does not have a fear of falling. He does not need assistance with sitting, standing or walking. Does not need assistance walking in his home. He does not need assistance in an unfamiliar setting. The patient is using an assistive device. Fall Risk Screening: Patient is identified as a fall risk. Care Plan: Low Risk: Environmental for all patients and low risk patients: Offer assistance as needed or requested, keep environment free of obstacles, keep floor clean and dry, keep room lighting, wheelchair brakes on, bed/ stretcher locked and in low position if applicable, non-slip footwear if applicable, walker/cane available if needed, side rails up if applicable and pre-emptive toileting. Pain Scale: On a scale of 0 to 10, the patient rates the pain at 8. Please identify location of pain: L knee 8/10, R knee 6/10. Pain Quality: burning, pressure, sharp, tightness, throbbing and R numbness. The pain makes it hard for the patient to do these things: walking, exercise and self-care (bathing, dressing, eating). Insurance Insurance reviewed Visit number: 35 Approved number of visits: 18 Authorization date range: until 01/22/2110/27 [facility] 18v Evaluating therapist William Pastor PT. M25.561; M89.8X6; S80.02Xd; M70.51; M23.42; LATEX ALLERGY; RLE MYOTOME WEAKNESS Subjective Patient reports:. patient reports continued B knee pain/soreness, feels like he is achier than normal and it may be d/t weather/rain recently. Home program performing as directed: Yes. 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 Treatment Time in clinic started at 1004 Time in clinic ended at 1047 Total time in clinic is 43 minutes. Total timed code time is 40 minutes. Therapeutic exercise (90403): timed minutes 40, units 3 . NuStep SciFit L4.5 5' - HR/TR 2x10 - Mini squat 2x10 - B hip abd 2x10 green mini band - Hip ext 2x10 green mini band - marches x 15 with green mini band - B/L SLS with leg circumduction on green theradisc x10 -Side stepping with green mini band x6 each dir in // bars -Step Up 4'' Step x15 each, 1 UE assist [X] -step up 6'' step xx1 (more content not included)... Normal [facility] Progress Noteon 1 PT Progress Note Therapy Diagnosis Assessed Bone pain of knee (733.90) (M89.8X6) Chronic pain of both knees (719.46,338.29) (M25.561,M25.562,G89.2 9) Infrapatellar bursitis of right knee (726.69) (M70.51) Loose body of left knee (717.6) (M23.42) Plan Goals: Goals set and discussed today. 1. Independent HEP to allow for 50% reduction in max ADL C/C sx ( L-7/10; R-11/18)2-3wks 9/10 L; 7/10 R; within the last 5 days; 10/09/20; NOT MET; 8-L; 01/18-R; max sx within the last 5 days; 11/21/20; NOT MET 2. 0/10 night time sx to allow for uninterrupted sleep x1wk ( 01/15) 2-3wks still wakes nightly; 10/09/20; NOT MET; still wakes nightly; 11/21/20; NOT MET 3. Survey score improvement from to 40/80 (LEFS) 4-6wks as of 10/09/20; NOT MET; as of 11/21/20; PARTIALLY MET 4. ROM increase to allow for improved ADL car transfers, dressing lowers (from 120 to 130 L knee flexion) 4-6wks no change with ADL; 110 active L knee bend; 10/09/20; NOT MET; no change with noted ADL; 120/125 L/R knee flexion; 11/21/20; PARTIALLY MET 5. Strength increase to allow for improved ADL sit to stdg transfers, stairs (from 3+/4- R/L knee to gr4+ B) 4-6wks no change; gr4-/4+ R/L knee; 10/09/20; PARTIALLY MET; still difficult with noted ADL; gr4+ L knee, gr4- R knee flex/ext; 11/21/20; PARTIALLY MET 6. Strength increase to allow for improved ADL sit to stdg transfers, stairs (from 4/4- R hip to gr4+) 4-6wks no change with noted ADL; gr4/4- R hip today; 10/09/20; NOT MET; still difficult with noted ADL; gr3+ R hip f;exion, gr4 R hip abd/ext; 11/21/20; PARTIALLY MET Planned interventions include: aquatic therapy, cryotherapy, education/instruction, electrical stimulation, gait training, home program, hot pack, kinesiotaping, manual therapy, neuromuscular re-education, self care/home management and therapeutic exercises. Frequency and duration: 3 time(s) a week, for 6 weeks, for 17 visits. Potential to achieve rehab goals is fair: chronic syndrome Plan to continue with strength/stability progressions as tolerated to reduce pain and improve ease/tolerance with functional/community ambulation. Assessment Unable to do TR's with right foot in standing. Verbal cues needed with form with exercises. Pt. has difficulty with RLE with exercises. Quick fatigue noted with mini squats. Pt. c/o back pain with step ups this date. Response to treatment: no change in pain. Patient was able to complete today's treatment with some difficulty. Adult Risk Screening There are no spiritual/cultural practices/values/needs that are important to know Initial Fall Risk Screening: KHOA has not fallen in the last 6 months. KHOA does not have a fear of falling. He does not need assistance with sitting, standing or walking. Does not need assistance walking in his home. He does not need assistance in an unfamiliar setting. The patient is using an assistive device. Fall Risk Screening: Patient is identified as a fall risk. Care Plan: Low Risk: Environmental for all patients and low risk patients: Offer assistance as needed or requested, keep environment free of obstacles, keep floor clean and dry, keep room lighting, wheelchair brakes on, bed/ stretcher locked and in low position if applicable, non-slip footwear if applicable, walker/cane available if needed, side rails up if applicable and pre-emptive toileting. Pain Scale: On a scale of 0 to 10, the patient rates the pain at 9. Please identify location of pain: L knee 8/10, R knee 7/10, 9/10 R shoulder. Pain Quality: burning, pressure, sharp, tightness, throbbing and R numbness. The pain makes it hard for the patient to do these things: walking, exercise and self-care (bathing, dressing, eating). Insurance Insurance reviewed Visit number: 34 Approved number of visits: 18 Authorization date range: until 01/22/2110/27 [facility] 18v Evaluating therapist William Pastor PT. M25.561; M89.8X6; S80.02Xd; M70.51; M23.42; LATEX ALLERGY; RLE MYOTOME WEAKNESS Subjective Patient reports:. Pt. c/o 8/10 pain with left knee, 7/10 right knee, states it's hard to tell if it's more pain or numbness. Home program performing as directed: Yes. 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 Treatment Time in clinic started at 11:30 am Time in clinic ended at 12:13 pm Total time in clinic is 43 minutes. Total timed code time is 40 minutes. Therapeutic exercise (39825): timed minutes 40, units 3 . NuStep SciFit L4.5 5' - HR/TR 2x10 - Mini squat 2x10 - B hip abd 2x10 green mini band - Hip ext 2x10 green mini band - marches x 15 with green mini band - B/L SLS with leg circumduction on green theradisc x10 -Side stepping with green mini band x6 each dir in // bars -Step Up 4'' Step x15 each, 1 UE assist -step up 6'' step x5 each LE -Modified Tandem Stance on Thera Disc 2 x 30'' each foot (more content not included)... Normal [facility] PT Progress Noteon 1 PT Progress Note Therapy Diagnosis Assessed Chronic pain of both knees (719.46,338.29) (M25.561,M25.562,G89.2 9) Bone pain of knee (733.90) (M89.8X6) Infrapatellar bursitis of right knee (726.69) (M70.51) Traumatic hematoma of left knee, subsequent encounter (V58.89,924.11) (S80.02XD) Loose body of left knee (717.6) (M23.42) Plan Goals: Goals set and discussed today. 1. Independent HEP to allow for 50% reduction in max ADL C/C sx ( L-01/18; R-11/18)2-3wks 9/10 L; 01/18 R; within the last 5 days; 10/09/20; NOT MET; 02/18-L; 01/18-R; max sx within the last 5 days; 11/21/20; NOT MET 2. 0/10 night time sx to allow for uninterrupted sleep x1wk ( 01/15) 2-3wks still wakes nightly; 10/09/20; NOT MET; still wakes nightly; 11/21/20; NOT MET 3. Survey score improvement from to 40/80 (LEFS) 4-6wks 5 as of 10/09/20; NOT MET; 10/80 as of 11/21/20; PARTIALLY MET 4. ROM increase to allow for improved ADL car transfers, dressing lowers (from 120 to 130 L knee flexion) 4-6wks no change with ADL; 110 active L knee bend; 10/09/20; NOT MET; no change with noted ADL; 120/125 L/R knee flexion; 11/21/20; PARTIALLY MET 5. Strength increase to allow for improved ADL sit to stdg transfers, stairs (from 3+/4- R/L knee to gr4+ B) 4-6wks no change; gr4-/4+ R/L knee; 10/09/20; PARTIALLY MET; still difficult with noted ADL; gr4+ L knee, gr4- R knee flex/ext; 11/21/20; PARTIALLY MET 6. Strength increase to allow for improved ADL sit to stdg transfers, stairs (from 4/4- R hip to gr4+) 4-6wks no change with noted ADL; gr4/4- R hip today; 10/09/20; NOT MET; still difficult with noted ADL; gr3+ R hip f;exion, gr4 R hip abd/ext; 11/21/20; PARTIALLY MET Planned interventions include: aquatic therapy, cryotherapy, education/instruction, electrical stimulation, gait training, home program, hot pack, kinesiotaping, manual therapy, neuromuscular re-education, self care/home management and therapeutic exercises. Frequency and duration: 3 time(s) a week, for 6 weeks, for 17 visits. Potential to achieve rehab goals is fair: chronic syndrome Plan to continue with strength/stability progressions as tolerated to reduce pain and improve ease/tolerance with functional/community ambulation. Assessment Patient ID confirmed using Name and . Patient wearing mask throughout session today d/t COVID-19 precautions. Patient continues to present with pain and limitations coming from B knees, patient demos improved/improving strength and stability but painful limitations remain. Adult Risk Screening There are no spiritual/cultural practices/values/needs that are important to know Initial Fall Risk Screening: KHOA has not fallen in the last 6 months. KHOA does not have a fear of falling. He does not need assistance with sitting, standing or walking. Does not need assistance walking in his home. He does not need assistance in an unfamiliar setting. The patient is using an assistive device. Fall Risk Screening: Patient is identified as a fall risk. Care Plan: Low Risk: Environmental for all patients and low risk patients: Offer assistance as needed or requested, keep environment free of obstacles, keep floor clean and dry, keep room lighting, wheelchair brakes on, bed/ stretcher locked and in low position if applicable, non-slip footwear if applicable, walker/cane available if needed, side rails up if applicable and pre-emptive toileting. Pain Scale: On a scale of 0 to 10, the patient rates the pain at 9. Please identify location of pain: L knee 8/10, R knee 7/10, 9/10 R shoulder. Pain Quality: burning, pressure, sharp, tightness, throbbing and R numbness. The pain makes it hard for the patient to do these things: walking, exercise and self-care (bathing, dressing, eating). Insurance Insurance reviewed Visit number: 33 Approved number of visits: 18 Authorization date range: until 01/22/2110/27 [facility] 18v Evaluating therapist William Pastor PT. M25.561; M89.8X6; S80.02Xd; M70.51; M23.42; LATEX ALLERGY; RLE MYOTOME WEAKNESS Subjective Patient reports:. continued pain in B knees, and LBP and R shoulder pain. Can get around home with SPC but still needs FWW for all mobility outside of house. Home program performing as directed: Yes. 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 Treatment Time in clinic started at 1002 Time in clinic ended at 1046 Total time in clinic is 44 minutes. Total timed code time is 40 minutes. Therapeutic exercise (97254): timed minutes 40, units 3 . NuStep SciFit L4.5 5' - HR/TR 2x10 - Mini squat 2x10 - B hip abd 2x10 green mini band - Hip ext 2x10 green mini band - marches x 15 with green mini band - B/L SLS with leg circumduction on green theradisc x10 -Side stepping with green mini band x6 each dir in // bars -Step Up 4'' Step x15 each, 1 UE assist -step up 6'' step x5 each LE - (more content not included)... Normal [facility] PT Progress Noteon 1 PT Progress Note Therapy Diagnosis Assessed Loose body of left knee (717.6) (M23.42) Traumatic hematoma of left knee, subsequent encounter (V58.89,924.11) (S80.02XD) Infrapatellar bursitis of right knee (726.69) (M70.51) Bone pain of knee (733.90) (M89.8X6) Chronic pain of both knees (719.46,338.29) (M25.561,M25.562,G89.2 9) Plan Goals: Goals set and discussed today. 1. Independent HEP to allow for 50% reduction in max ADL C/C sx ( L-01/18; R-11/18)2-3wks 9/10 L; 01/18 R; within the last 5 days; 10/09/20; NOT MET; 8-L; 01/18-R; max sx within the last 5 days; 11/21/20; NOT MET 2. 0/10 night time sx to allow for uninterrupted sleep x1wk ( 01/15) 2-3wks still wakes nightly; 10/09/20; NOT MET; still wakes nightly; 11/21/20; NOT MET 3. Survey score improvement from 80 to 40/80 (LEFS) 4-6wks as of 10/09/20; NOT MET; 10/ as of 11/21/20; PARTIALLY MET 4. ROM increase to allow for improved ADL car transfers, dressing lowers (from 120 to 130 L knee flexion) 4-6wks no change with ADL; 110 active L knee bend; 10/09/20; NOT MET; no change with noted ADL; 120/125 L/R knee flexion; 11/21/20; PARTIALLY MET 5. Strength increase to allow for improved ADL sit to stdg transfers, stairs (from 3+/4- R/L knee to gr4+ B) 4-6wks no change; gr4-/4+ R/L knee; 10/09/20; PARTIALLY MET; still difficult with noted ADL; gr4+ L knee, gr4- R knee flex/ext; 11/21/20; PARTIALLY MET 6. Strength increase to allow for improved ADL sit to stdg transfers, stairs (from 4/4- R hip to gr4+) 4-6wks no change with noted ADL; gr4/4- R hip today; 10/09/20; NOT MET; still difficult with noted ADL; gr3+ R hip f;exion, gr4 R hip abd/ext; 11/21/20; PARTIALLY MET Planned interventions include: aquatic therapy, cryotherapy, education/instruction, electrical stimulation, gait training, home program, hot pack, kinesiotaping, manual therapy, neuromuscular re-education, self care/home management and therapeutic exercises. Frequency and duration: 3 time(s) a week, for 6 weeks, for 17 visits. Potential to achieve rehab goals is fair: chronic syndrome Progress hip strengthening as tolerated. Progress with POC, as tolerated. Assessment Weakness noted with hip and quad strengthening. Continued ambulation into clinic with FWW. Fair quad eccentric control with step ups. LOB noted with tandem stance. Adult Risk Screening There are no spiritual/cultural practices/values/needs that are important to know Initial Fall Risk Screening: KHOA has not fallen in the last 6 months. KHOA does not have a fear of falling. He does not need assistance with sitting, standing or walking. Does not need assistance walking in his home. He does not need assistance in an unfamiliar setting. The patient is using an assistive device. Fall Risk Screening: Patient is identified as a fall risk. Care Plan: Low Risk: Environmental for all patients and low risk patients: Offer assistance as needed or requested, keep environment free of obstacles, keep floor clean and dry, keep room lighting, wheelchair brakes on, bed/ stretcher locked and in low position if applicable, non-slip footwear if applicable, walker/cane available if needed, side rails up if applicable and pre-emptive toileting. Pain Scale: On a scale of 0 to 10, the patient rates the pain at 8. Please identify location of pain: L knee 8/10, R knee 7/10. Pain Quality: burning, pressure, sharp, tightness, throbbing and R numbness. The pain makes it hard for the patient to do these things: walking, exercise and self-care (bathing, dressing, eating). Insurance Insurance reviewed Visit number: 31 Approved number of visits: 18 Authorization date range: - until 01/22/2108/29 [facility] 18v Evaluating therapist William Pastor PT. M25.561; M89.8X6; S80.02Xd; M70.51; M23.42; LATEX ALLERGY; RLE MYOTOME WEAKNESS Subjective Patient reports:. Pt. states that he is having increased pain today. Pt. reports that he walked around stores a lot yesterday. Pt. states that his knees and shoulder are killing him.. 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 Treatment Time in clinic started at 10:45 am Time in clinic ended at 11:25 am Total time in clinic is 40 minutes. Total timed code time is 40 minutes. Therapeutic exercise (67436): timed minutes 40, units 3 . NuStep SciFit L4.5 5' - HR/TR 2x10 - Mini squat 2x10 - B hip abd 2x10 green mini band - Hip ext 2x10 green mini band - marches x 15 with green mini band - B/L SLS with leg circumduction on green theradisc x10 -Side stepping with green mini band x6 each dir in // bars -Step Up 4'' Step x15 each, 1 UE assist -step up 6'' step x5 each LE -Modified Tandem Stance on Thera Disc 2 x 30'' each foot fwd Seated LAQ 2 x 10 3# [employer] [place] 2 x 10 Seated Hip Abd [place] 2 x 10 Seated hip add playball 2 x 10 5? hold Seated AAROM R DF x10 with t (more content not included)... Normal [facility] PT Progress Noteon 1 PT Progress Note Therapy Diagnosis Assessed Loose body of left knee (717.6) (M23.42) Traumatic hematoma of left knee, subsequent encounter (V58.89,924.11) (S80.02XD) Infrapatellar bursitis of right knee (726.69) (M70.51) Chronic pain of both knees (719.46,338.29) (M25.561,M25.562,G89.2 9) Bone pain of knee (733.90) (M89.8X6) Plan Goals: Goals set and discussed today. 1. Independent HEP to allow for 50% reduction in max ADL C/C sx ( L-01/18; R-11/18)2-3wks 9/10 L; 01/18 R; within the last 5 days; 10/09/20; NOT MET; 8-L; 01/18-R; max sx within the last 5 days; 11/21/20; NOT MET 2. 0/10 night time sx to allow for uninterrupted sleep x1wk ( 01/15) 2-3wks still wakes nightly; 10/09/20; NOT MET; still wakes nightly; 11/21/20; NOT MET 3. Survey score improvement from to 40/80 (LEFS) 4-6wks 5/ as of 10/09/20; NOT MET; 10/80 as of 11/21/20; PARTIALLY MET 4. ROM increase to allow for improved ADL car transfers, dressing lowers (from 120 to 130 L knee flexion) 4-6wks no change with ADL; 110 active L knee bend; 10/09/20; NOT MET; no change with noted ADL; 120/125 L/R knee flexion; 11/21/20; PARTIALLY MET 5. Strength increase to allow for improved ADL sit to stdg transfers, stairs (from 3+/4- R/L knee to gr4+ B) 4-6wks no change; gr4-/4+ R/L knee; 10/09/20; PARTIALLY MET; still difficult with noted ADL; gr4+ L knee, gr4- R knee flex/ext; 11/21/20; PARTIALLY MET 6. Strength increase to allow for improved ADL sit to stdg transfers, stairs (from 4/4- R hip to gr4+) 4-6wks no change with noted ADL; gr4/4- R hip today; 10/09/20; NOT MET; still difficult with noted ADL; gr3+ R hip f;exion, gr4 R hip abd/ext; 11/21/20; PARTIALLY MET Planned interventions include: aquatic therapy, cryotherapy, education/instruction, electrical stimulation, gait training, home program, hot pack, kinesiotaping, manual therapy, neuromuscular re-education, self care/home management and therapeutic exercises. Frequency and duration: 3 time(s) a week, for 6 weeks, for 17 visits. Potential to achieve rehab goals is fair: chronic syndrome Plan to continue with LE/Hip Strength progressions as tolerated to reduce pain and improve ease/tolerance with functional/community ambulation. Assessment Patient ID confirmed using Name and . Patient wearing mask throughout session today d/t COVID-19 precautions. Patient making progress with strength/stability demos improved/improving balance and ability to perform exercises with increased reps/resistance but continues to present with pain which limits functional/community ambulation. Adult Risk Screening There are no spiritual/cultural practices/values/needs that are important to know Initial Fall Risk Screening: KHOA has not fallen in the last 6 months. KHOA does not have a fear of falling. He does not need assistance with sitting, standing or walking. Does not need assistance walking in his home. He does not need assistance in an unfamiliar setting. The patient is using an assistive device. Fall Risk Screening: Patient is identified as a fall risk. Care Plan: Low Risk: Environmental for all patients and low risk patients: Offer assistance as needed or requested, keep environment free of obstacles, keep floor clean and dry, keep room lighting, wheelchair brakes on, bed/ stretcher locked and in low position if applicable, non-slip footwear if applicable, walker/cane available if needed, side rails up if applicable and pre-emptive toileting. Pain Scale: On a scale of 0 to 10, the patient rates the pain at 8. Please identify location of pain: L knee 8/10, R knee 7/10. Pain Quality: burning, pressure, sharp, tightness, throbbing and R numbness. The pain makes it hard for the patient to do these things: walking, exercise and self-care (bathing, dressing, eating). Insurance Insurance reviewed Visit number: 30 Approved number of visits: 18 Authorization date range: until 01/22/2107/29 [facility] 18v Evaluating therapist William Pastor PT. M25.561; M89.8X6; S80.02Xd; M70.51; M23.42; LATEX ALLERGY; RLE MYOTOME WEAKNESS Subjective Patient reports:. continued pain/soreness in B knees. Patient faithful with HEP and walking at home using FWW. Home program performing as directed: Yes. 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 Treatment Time in clinic started at 1130 Time in clinic ended at 1217 Total time in clinic is 47 minutes. Total timed code time is 44 minutes. Therapeutic exercise (72944): timed minutes 44, units 3 . * See NMR NuStep SciFit L4.5 5' - HR/TR 2x10 - Mini squat 2x10 - B hip abd 2x10 green mini band - Hip ext 2x10 green mini band - marches x 15 with green mini band - B/L SLS with leg circumduction on green theradisc x10 -Side stepping with green mini band x6 each dir in // bars -Step Up 4'' Step x15 each, 1 UE assist -step up 6'' step x5 eac (more content not included)... Normal [facility] PT Progress Noteon 1 PT Progress Note Therapy Diagnosis Assessed Bone pain of knee (733.90) (M89.8X6) Chronic pain of both knees (719.46,338.29) (M25.561,M25.562,G89.2 9) Infrapatellar bursitis of right knee (726.69) (M70.51) Traumatic hematoma of left knee, subsequent encounter (V58.89,924.11) (S80.02XD) Loose body of left knee (717.6) (M23.42) Plan Goals: Goals set and discussed today. 1. Independent HEP to allow for 50% reduction in max ADL C/C sx ( L-01/18; R-11/18)2-3wks 9/10 L; 710 R; within the last 5 days; 10/09/20; NOT MET; 8/10-L; 01/18-R; max sx within the last 5 days; 11/21/20; NOT MET 2. 0/10 night time sx to allow for uninterrupted sleep x1wk ( 01/15) 2-3wks still wakes nightly; 10/09/20; NOT MET; still wakes nightly; 11/21/20; NOT MET 3. Survey score improvement from to 4080 (LEFS) 4-6wks as of 10/09/20; NOT MET; as of 11/21/20; PARTIALLY MET 4. ROM increase to allow for improved ADL car transfers, dressing lowers (from 120 to 130 L knee flexion) 4-6wks no change with ADL; 110 active L knee bend; 10/09/20; NOT MET; no change with noted ADL; 120/125 L/R knee flexion; 11/21/20; PARTIALLY MET 5. Strength increase to allow for improved ADL sit to stdg transfers, stairs (from 3+/4- R/L knee to gr4+ B) 4-6wks no change; gr4-/4+ R/L knee; 10/09/20; PARTIALLY MET; still difficult with noted ADL; gr4+ L knee, gr4- R knee flex/ext; 11/21/20; PARTIALLY MET 6. Strength increase to allow for improved ADL sit to stdg transfers, stairs (from 4/4- R hip to gr4+) 4-6wks no change with noted ADL; gr4/4- R hip today; 10/09/20; NOT MET; still difficult with noted ADL; gr3+ R hip f;exion, gr4 R hip abd/ext; 11/21/20; PARTIALLY MET Planned interventions include: aquatic therapy, cryotherapy, education/instruction, electrical stimulation, gait training, home program, hot pack, kinesiotaping, manual therapy, neuromuscular re-education, self care/home management and therapeutic exercises. Frequency and duration: 3 time(s) a week, for 6 weeks, for 17 visits. Potential to achieve rehab goals is fair: chronic syndrome Plan to continue with progressions of strengthening and balance/stability training as tolerated to reduce pain and improve ease/tolerance with functional/community ambulation. Assessment Patient ID confirmed using Name and . Patient wearing mask throughout session today d/t COVID-19 precautions. Patient continues to demo significant weakness with DF but making progress with strengthening other LE muscle groups. Ease/tolerance to step ups improving gradually. Adult Risk Screening There are no spiritual/cultural practices/values/needs that are important to know Initial Fall Risk Screening: KHOA has not fallen in the last 6 months. KHOA does not have a fear of falling. He does not need assistance with sitting, standing or walking. Does not need assistance walking in his home. He does not need assistance in an unfamiliar setting. The patient is using an assistive device. Fall Risk Screening: Patient is identified as a fall risk. Care Plan: Low Risk: Environmental for all patients and low risk patients: Offer assistance as needed or requested, keep environment free of obstacles, keep floor clean and dry, keep room lighting, wheelchair brakes on, bed/ stretcher locked and in low position if applicable, non-slip footwear if applicable, walker/cane available if needed, side rails up if applicable and pre-emptive toileting. Pain Scale: On a scale of 0 to 10, the patient rates the pain at 8. Please identify location of pain: L knee 8/10, R knee 7/10. Pain Quality: burning, pressure, sharp, tightness, throbbing and R numbness. The pain makes it hard for the patient to do these things: walking, exercise and self-care (bathing, dressing, eating). Insurance Insurance reviewed Visit number: 30 Approved number of visits: 18 Authorization date range: - until 01/22/2107/29 [facility] 18v Evaluating therapist William Pastor PT. M25.561; M89.8X6; S80.02Xd; M70.51; M23.42; LATEX ALLERGY; RLE MYOTOME WEAKNESS Subjective Patient reports:. as far as pain, nothing has really changed. Patient feels that he has gotten stronger and somewhat better stability. Home program performing as directed: Yes. 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 Treatment Time in clinic started at 0916 Time in clinic ended at 1005 Total time in clinic is 49 minutes. Total timed code time is 44 minutes. Therapeutic exercise (43802): timed minutes 44, units 3 . * See NMR NuStep SciFit L4.5 5' - HR/TR 2x10 - Mini squat 2x10 - B hip abd 2x10 green mini band - Hip ext 2x10 green mini band - marches x 15 with green mini band - B/L SLS with leg circumduction on green theradisc x10 -Side stepping with green mini band x6 each dir in // bars -Step Up 4'' Step x15 each, 1 UE assist -step up 6'' step x5 each (more content not included)... Normal [facility] Established Visit (Orthopaed ic Surgery)on 12-03-2020 Established Visit (Orthopaedic Surgery) Diagnoses/Problems Assessed Chronic pain of right knee (719.46,338.29) (M25.561,G89.29) Provider Impressions Assessment?right knee pain, effusion Plan?patient did present today for aspiration of the right knee joint. Did aspirate approximately 28 mL of blood-tinged synovial fluid. Patient did tolerate the aspiration relatively well. We will continue to monitor him and see if he has return of his effusion hopefully this will help with his range of motion and activity level some help him with his physical therapy This note has been created with voice recognition software. Please be aware that there may be grammatical or contextual errors due to the use of the software. Chief Complaint PATIENT IS HERE FOR FOLLOW UP RIGHT KNEE. [facility] APPROVED. STATES THAT STILL IN PAIN AND IS WANTED IT DRAINED. History of Present Illness Patient is a very pleasant 60-year-old gentleman who [...] and he is here today for the aspiration. Review of Systems Constitutional: no fever, no chills, not feeling tired, no recent weight gain and no recent weight loss. ENT: no nosebleeds. Cardiovascular: no chest pain. Respiratory: no shortness of breath and no cough. Gastrointestinal: no abdominal pain, no nausea, no diarrhea and no vomiting. Musculoskeletal: no arthralgias and as noted in HPI. Integumentary: no rashes and no skin wound. Neurological: no headache. Psychiatric: no depression and no sleep disturbances. Endocrine: no muscle cramps. Hematologic/Lymphatic: swollen glands, but no tendency for easy bruising. 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) Right shoulder pain, unspecified chronicity (719.41) (M25.511) Sprain of right shoulder, initial encounter (840.9) (S43.401A) Strain of right shoulder, initial encounter (840.9) (S46.911A) Tear of medial meniscus of right knee (836.0) (S83.241A) Traumatic hematoma of left knee, subsequent encounter (V58.89,924.11) (S80.02XD) Traumatic incomplete tear of right rotator cuff, subsequent encounter (V58.89,840.4) (S46.011D) Past Medical History Problems No pertinent past medical history (V49.89) (Z78.9) History of Sprain of right shoulder, subsequent encounter (V58.89,840.9) (S43.401D) Resolved Date: 28 Aug 2020 Surgical History Problems History of Back surgery Family History Mother Family history of Known health problems: none Social History Problems Daily caffeine consumption Does not have living will Never a smoker No advance directives (V49.89) (Z78.9) Non-smoker (V49.89) (Z78.9) Allergies Medication No Known Drug Allergies Recorded By: Michelet Avendaño; 06/15/2019 10:19:19 AM NonMedication Latex Recorded By: Jackie Funk; 06/05/2019 9:06:12 AM Current Meds Medication NameInstruction Cyclobenzaprine HCl - 10 MG Oral TabletTAKE 1 TABLET 3 TIMES DAILY. Ibuprofen 600 MG Oral Tablet Methocarbamol 500 MG Oral TabletTAKE 1 TABLET 4 TIMES DAILY PRN MUSCLE SPASM Vitals Vital Signs Recorded: [id number] 02:25PM Lcmmrhrmkep79.9 F Wupoxfkj505 Dfmojxfwe67 Height6 ft 5 in Vdiqjo755 lb BMI Ymfljwswno46.24 kg/m2 BSA Calculated2.71 Tobacco Useb) No Fall Screeninga) No falls within the last year Physical Exam Alert and Oriented x 3 Patient resting comfortably in the exam room Normocephalic atraumatic extraocular movements intact mucous membranes moist warm well perfused extremities nonlabored breathing appropriate mood and affect no evidence of lymphedema Bilateral knees Right knee does show a moderate effusion as well as the left knee No erythema but some warmth no ecchymosis Tenderness to palpation along bilateral medial joint lines as well as in the peripatellar area Crepitus with range of motion Positive Breezy Negative varus valgus stress negative anterior posterior drawer Warm well-perfused lower extremities Some evidence of chronic venous stasis in the lower aspect of the left leg with venous engorgement and discoloration Intact motor and sensory in all distributions of the left lower extremity Right lower extremity does demonstrate (more content not included)... Normal [facility] Tobacco Screening.on 021 Fall risk assessment a) No falls within the last year [facility] 300 Work Phone: Tobacco use status [facility] b) No [facility] Work Phone: Tobacco Screening. 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 He needs to develop more strength in his legs before being a candidate for any type of arthroplasty as arthroplasty would be quite difficult to recover from because he essentially has severe weakness in his right leg from his previous spine injury. I would like to request some more therapy as he does feel like this is been beneficial has been improving her strength. If we need to proceed with a surgical intervention we will start with the knees as the shoulder will have to wait because he needs to be able to stand without putting significant pressure through his right upper extremity as this will affect his surgical repair. He does have a moderate sized effusion of the right knee and this is quite bothersome to him we will request the chance aspirated via Worker's Compensation. With regards to the left knee I really do think it we should continue to maximize therapy as best we can because he will need the strength if we need to proceed with any surgery recovery will be quite difficult This note has been created with voice recognition software. Please be aware that there may be grammatical or contextual errors due to the use of the software. Chief Complaint PATIENT IS HERE FOR 1 MONTH FOLLOW UP BART KNEE AND RIGHT SHOULDER PAIN. [facility] DOI 06/01/2019. STATES THAT YESTERDAY WAS HIS LAST DAY AT PT FOR STRENGTHENING. PAIN IS STILL CONSTANT. SWELLING AND THROBBING PAIN. HAVING A HARD TIME WITH THE STAIRS DUE TO SOME EXTRA STRAIN AT PHYSICAL THERAPY. History of Present Illness Patient is a very pleasant 60-year-old male who presents today in follow-up with regards to his bilateral knee arthritis as well as right shoulder arthritis. He was able to see Dr. Stock in [place] who recommended if he can have any surgical intervention he should start with the knees. He is going to receive another cortisone injection in the right glenohumeral joint which will hopefully be more successful than the one that I administered. He continues to be quite symptomatic in the knees. He started develop some swelling in the right knee. With certain physical therapy activities do seem to flare his knee pain and swelling up more. He does feel like he is had some improvement of strength with therapy. He does feel like his gait is getting better and is working better on stairs. Review of Systems Constitutional: no fever, no chills, not feeling tired, no recent weight gain and no recent weight loss. ENT: no nosebleeds. Cardiovascular: no chest pain. Respiratory: no shortness of breath and no cough. Gastrointestinal: no abdominal pain, no nausea, no diarrhea and no vomiting. Musculoskeletal: no arthralgias and as noted in HPI. Integumentary: no rashes and no skin wound. Neurological: no headache. Psychiatric: no depression and no sleep disturbances. Endocrine: no muscle cramps. Hematologic/Lymphatic: no swollen glands and no tendency for easy bruising. All other systems have been reviewed and are negative for complaint. 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) Right shoulder pain, unspecified chronicity (719.41) (M25.511) Sprain of right shoulder, initial encounter (840.9) (S43.401A) Strain of right shoulder, initial encounter (840.9) (S46.911A) Tear of medial meniscus of right knee (836.0) (S83.241A) Traumatic hematoma of left knee, subsequent encounter (V58.89,924.11) (S80.02XD) Traumatic incomplete tear of right rotator cuff, subsequent encounter (V58.89,840.4) (S46.011D) Past Medical History Problems No pertinent past medical history (V49.89) (Z78.9) History of Sprain of right shoulder, subsequent encounter (V58.89,840.9) (S43.401D) Resolved Date: 28 Aug 2020 Surgical History Problems History of Back surgery Family History Mother Family history of Known health problems: none Social History Problems Daily caffeine consumption Does not have living will Never a smoker No advance directives (V49.89) (Z78.9) Non-smoker (V (more content not included)... Normal [facility] Tobacco Screening.on 021 Fall risk assessment a) No falls within the last year [facility] 300 Work Phone: Tobacco use status [facility] b) No [facility] [place] Work Phone: Tobacco Screening. b) No [facility] 300 Work Phone: PT Progress Noteon 1 PT Progress Note Therapy Diagnosis Assessed Bone pain of knee (733.90) (M89.8X6) Chronic pain of both knees (719.46,338.29) (M25.561,M25.562,G89.2 9) Infrapatellar bursitis of right knee (726.69) (M70.51) Traumatic hematoma of left knee, subsequent encounter (V58.89,924.11) (S80.02XD) Loose body of left knee (717.6) (M23.42) Plan Goals: Goals set and discussed today. 1. Independent HEP to allow for 50% reduction in max ADL C/C sx ( L-01/18; R-11/18)2-3wks 9/10 L; 7/10 R; within the last 5 days; 10/09/20; NOT MET; 8/10-L; 01/18-R; max sx within the last 5 days; 11/21/20; NOT MET 2. 0/10 night time sx to allow for uninterrupted sleep x1wk ( 01/15) 2-3wks still wakes nightly; 10/09/20; NOT MET; still wakes nightly; 11/21/20; NOT MET 3. Survey score improvement from to (LEFS) 4-6wks as of 10/09/20; NOT MET; as of 11/21/20; PARTIALLY MET 4. ROM increase to allow for improved ADL car transfers, dressing lowers (from 120 to 130 L knee flexion) 4-6wks no change with ADL; 110 active L knee bend; 10/09/20; NOT MET; no change with noted ADL; 120/125 L/R knee flexion; 11/21/20; PARTIALLY MET 5. Strength increase to allow for improved ADL sit to stdg transfers, stairs (from 3+/4- R/L knee to gr4+ B) 4-6wks no change; gr4-/4+ R/L knee; 10/09/20; PARTIALLY MET; still difficult with noted ADL; gr4+ L knee, gr4- R knee flex/ext; 11/21/20; PARTIALLY MET 6. Strength increase to allow for improved ADL sit to stdg transfers, stairs (from 4/4- R hip to gr4+) 4-6wks no change with noted ADL; gr4/4- R hip today; 10/09/20; NOT MET; still difficult with noted ADL; gr3+ R hip f;exion, gr4 R hip abd/ext; 11/21/20; PARTIALLY MET Planned interventions include: aquatic therapy, cryotherapy, education/instruction, electrical stimulation, gait training, home program, hot pack, kinesiotaping, manual therapy, neuromuscular re-education, self care/home management and therapeutic exercises. Frequency and duration: 3 time(s) a week, for 6 weeks, for 17 visits. Potential to achieve rehab goals is fair: chronic syndrome the patient has completed 30 visits; the latest C-9 period ends today; recheck with the DR lyons. Assessment Patient identity confirmed today with name/. see goals; mild ROM/strength improvements of the LEs but little ADL improvements; the patient does seem to walk with FWW with more stability and efficiency. Adult Risk Screening There are no spiritual/cultural practices/values/needs that are important to know Initial Fall Risk Screening: KHOA has not fallen in the last 6 months. KHOA does not have a fear of falling. He does not need assistance with sitting, standing or walking. Does not need assistance walking in his home. He does not need assistance in an unfamiliar setting. The patient is using an assistive device. Fall Risk Screening: Patient is identified as a fall risk. Care Plan: Low Risk: Environmental for all patients and low risk patients: Offer assistance as needed or requested, keep environment free of obstacles, keep floor clean and dry, keep room lighting, wheelchair brakes on, bed/ stretcher locked and in low position if applicable, non-slip footwear if applicable, walker/cane available if needed, side rails up if applicable and pre-emptive toileting. Pain Scale: On a scale of 0 to 10, the patient rates the pain at 8. Please identify location of pain: L knee 8/10, R knee 7/10. Pain Quality: burning, pressure, sharp, tightness, throbbing and R numbness. The pain makes it hard for the patient to do these things: walking, exercise and self-care (bathing, dressing, eating). Insurance Insurance reviewed Visit number: 30 Approved number of visits: 12 Authorization date range: C-9 until 11/21/20 610 Per Carolyn (helpdesk analyst) date extended to 11/21/20 [facility] 18v Evaluating therapist William Pastor PT. M25.561; M89.8X6; S80.02Xd; M70.51; M23.42; LATEX ALLERGY; RLE MYOTOME WEAKNESS Subjective Patient reports:. 8/10 L knee pain today. My LB also hurts today. I see the Dr lyons. 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 Treatment Time in clinic started at 10:02 am Time in clinic ended at 10:35 am Total time in clinic is 35 minutes. Total timed code time is 15 minutes. Therapeutic exercise (96705): timed minutes 15, units 1 . * See NMR NuStep SciFit L4.5 5' ( - HR/TR 2x10 X - Mini squat 2x10 X - B hip abd 2x10 green mini band X - Hip ext 2x10 green mini band X - marches x 15 with green mini band X - B/L SLS with leg circumduction on green theradisc x10 X -Side stepping with green mini band X -Step Up 4'' Step x15 each, 1 UE assist X -step up 6'' step x5 each LE X Seated LAQ 2 x 10 3# HSC [place] Band 2 x 10 (manual today) Seated Hip Abd [place] Band 2 x 10 Seated hip add playball 2 x 10 5? hold Seated AAROM R DF x10 with tactile cues for eccentric lowe (more content not included)... Normal [facility] Therapy Re-eval Noteon 11-21 Therapy Re-eval Note Therapy Diagnosis Assessed 1. Bone pain of knee (733.90) (M89.8X6) 2. Chronic pain of both knees (719.46,338.29) (M25.561,M25.562,G89.2 9) 3. Infrapatellar bursitis of right knee (726.69) (M70.51) 4. Traumatic hematoma of left knee, subsequent encounter (V58.89,924.11) (S80.02XD) 5. Loose body of left knee (717.6) (M23.42) Plan Goals: Goals set and discussed today. 1. Independent HEP to allow for 50% reduction in max ADL C/C sx ( L-01/18; R-11/18)2-3wks 03/21 L; 01/18 R; within the last 5 days; 10/09/20; NOT MET; 02/18-L; 01/18-R; max sx within the last 5 days; 11/21/20; NOT MET 2. 0/10 night time sx to allow for uninterrupted sleep x1wk ( 01/15) 2-3wks still wakes nightly; 10/09/20; NOT MET; still wakes nightly; 11/21/20; NOT MET 3. Survey score improvement from to 4080 (LEFS) 4-6wks as of 10/09/20; NOT MET; as of 11/21/20; PARTIALLY MET 4. ROM increase to allow for improved ADL car transfers, dressing lowers (from 120 to 130 L knee flexion) 4-6wks no change with ADL; 110 active L knee bend; 10/09/20; NOT MET; no change with noted ADL; 120/125 L/R knee flexion; 11/21/20; PARTIALLY MET 5. Strength increase to allow for improved ADL sit to stdg transfers, stairs (from 3+/4- R/L knee to gr4+ B) 4-6wks no change; gr4-/4+ R/L knee; 10/09/20; PARTIALLY MET; still difficult with noted ADL; gr4+ L knee, gr4- R knee flex/ext; 11/21/20; PARTIALLY MET 6. Strength increase to allow for improved ADL sit to stdg transfers, stairs (from 4/4- R hip to gr4+) 4-6wks no change with noted ADL; gr4/4- R hip today; 10/09/20; NOT MET; still difficult with noted ADL; gr3+ R hip f;exion, gr4 R hip abd/ext; 11/21/20; PARTIALLY MET Planned interventions include: aquatic therapy, cryotherapy, education/instruction, electrical stimulation, gait training, home program, hot pack, kinesiotaping, manual therapy, neuromuscular re-education, self care/home management and therapeutic exercises. Frequency and duration: 3 time(s) a week, for 6 weeks, for 17 visits. Potential to achieve rehab goals is fair: chronic syndrome the patient has completed 30 visits; the latest C-9 period ends today; recheck with the DR lyons. Assessment Patient identity confirmed today with name/. see goals; mild ROM/strength improvements of the LEs but little ADL improvements; the patient does seem to walk with FWW with more stability and efficiency. Adult Risk Screening There are no spiritual/cultural practices/values/needs that are important to know Initial Fall Risk Screening: KHOA has not fallen in the last 6 months. KHOA does not have a fear of falling. He does not need assistance with sitting, standing or walking. Does not need assistance walking in his home. He does not need assistance in an unfamiliar setting. The patient is using an assistive device. Fall Risk Screening: Patient is identified as a fall risk. Care Plan: Low Risk: Environmental for all patients and low risk patients: Offer assistance as needed or requested, keep environment free of obstacles, keep floor clean and dry, keep room lighting, wheelchair brakes on, bed/ stretcher locked and in low position if applicable, non-slip footwear if applicable, walker/cane available if needed, side rails up if applicable and pre-emptive toileting. Pain Scale: On a scale of 0 to 10, the patient rates the pain at 8. Please identify location of pain: L knee 8/10, R knee 7/10. Pain Quality: burning, pressure, sharp, tightness, throbbing and R numbness. The pain makes it hard for the patient to do these things: walking, exercise and self-care (bathing, dressing, eating). Insurance Insurance reviewed Visit number: 30 Approved number of visits: 12 Authorization date range: C-9 until 11/21/20 6/10 Per Carolyn (helpdesk analyst) date extended to 11/21/20 [facility] 18v Evaluating therapist William Pastor PT. M25.561; M89.8X6; S80.02Xd; M70.51; M23.42; LATEX ALLERGY; RLE MYOTOME WEAKNESS Subjective Patient reports:. 8/10 L knee pain today. My LB also hurts today. I see the Dr lyons. 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 Treatment Time in clinic started at 10:02 am Time in clinic ended at 10:35 am Total time in clinic is 35 minutes. Total timed code time is 15 minutes. Therapeutic exercise (42862): timed minutes 15, units 1 . * See NMR NuStep SciFit L4.5 5' ( - HR/TR 2x10 X - Mini squat 2x10 X - B hip abd 2x10 green mini band X - Hip ext 2x10 green mini band X - marches x 15 with green mini band X - B/L SLS with leg circumduction on green theradisc x10 X -Side stepping with green mini band X -Step Up 4'' Step x15 each, 1 UE assist X -step up 6'' step x5 each LE X Seated LAQ 2 x 10 3# HSC [place] 2 x 10 (manual today) Seated Hip Abd [place] 2 x 10 Seated hip add playball 2 x 10 5? hold Seated AAROM R DF x10 with tactile cues for (more content not included)... Normal [facility] PT Progress Noteon 1 PT Progress Note Therapy Diagnosis Assessed Bone pain of knee (733.90) (M89.8X6) Chronic pain of both knees (719.46,338.29) (M25.561,M25.562,G89.2 9) Loose body of left knee (717.6) (M23.42) Infrapatellar bursitis of right knee (726.69) (M70.51) Traumatic hematoma of left knee, subsequent encounter (V58.89,924.11) (S80.02XD) Plan Goals: Goals set and discussed today. 1. Independent HEP to allow for 50% reduction in max ADL C/C sx ( L-01/18; R-11/18)2-3wks 03/21 L; 01/18 R; within the last 5 days; 10/09/20; NOT MET 2. 0/10 night time sx to allow for uninterrupted sleep x1wk ( 01/15) 2-3wks still wakes nightly; 10/09/20; NOT MET 3. Survey score improvement from 380 to 40/80 (LEFS) 4-6wks as of 10/09/20; NOT MET 4. ROM increase to allow for improved ADL car transfers, dressing lowers (from 120 to 130 L knee flexion) 4-6wks no change with ADL; 110 active L knee bend; 10/09/20; NOT MET 5. Strength increase to allow for improved ADL sit to stdg transfers, stairs (from 3+/4- R/L knee to gr4+ B) 4-6wks no change; gr4-/4+ R/L knee; 10/09/20; PARTIALLY MET 6. Strength increase to allow for improved ADL sit to stdg transfers, stairs (from 4/4- R hip to gr4+) 4-6wks no change with noted ADL; gr4/4- R hip today; 10/09/20; NOT MET Planned interventions include: aquatic therapy, cryotherapy, education/instruction, electrical stimulation, gait training, home program, hot pack, kinesiotaping, manual therapy, neuromuscular re-education, self care/home management and therapeutic exercises. Frequency and duration: 3 time(s) a week, for 6 weeks, for 17 visits. Potential to achieve rehab goals is fair: chronic syndrome Progress hip and quad strengthening as tolerated. Progress with POC, as tolerated. Assessment Weakness noted with hip and quad strengthening. Pt. uses walker through out Tx. SBA with standing ther ex. Increased difficultly with resisted side stepping. Reviewed HEP. Adult Risk Screening There are no spiritual/cultural practices/values/needs that are important to know Initial Fall Risk Screening: KHOA has not fallen in the last 6 months. KHOA does not have a fear of falling. He does not need assistance with sitting, standing or walking. Does not need assistance walking in his home. He does not need assistance in an unfamiliar setting. The patient is using an assistive device. Fall Risk Screening: Patient is identified as a fall risk. Care Plan: Low Risk: Environmental for all patients and low risk patients: Offer assistance as needed or requested, keep environment free of obstacles, keep floor clean and dry, keep room lighting, wheelchair brakes on, bed/ stretcher locked and in low position if applicable, non-slip footwear if applicable, walker/cane available if needed, side rails up if applicable and pre-emptive toileting. Pain Scale: On a scale of 0 to 10, the patient rates the pain at 8. Please identify location of pain: L knee 8/10, R knee 7/10. Pain Quality: burning, pressure, sharp, tightness, throbbing and R numbness. The pain makes it hard for the patient to do these things: walking, exercise and self-care (bathing, dressing, eating). Insurance Insurance reviewed Visit number: 28 Approved number of visits: 12 Authorization date range: C-9 until 11/21/20 6/10 Per Carolyn (helpdesk analyst) date extended to 11/21/20 [facility] 18v Evaluating therapist William Pastor PT. M25.561; M89.8X6; S80.02Xd; M70.51; M23.42; LATEX ALLERGY; RLE MYOTOME WEAKNESS Subjective Patient reports:. Pt. reports that he is working on his HEP. Pt. states that he he continues to have a lot of pain in his L knee. Pt. states that his back is constantly hurt. 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 Treatment Time in clinic started at 10:00 am Time in clinic ended at 10:42 am Total time in clinic is 42 minutes. Total timed code time is 40 minutes. Therapeutic exercise (40314): timed minutes 40, units 3 . * See NMR NuStep SciFit L4.5 5' ( - HR/TR 2x10 - Mini squat 2x10 - B hip abd 2x10 green mini band - Hip ext 2x10 green mini band - marches x 15 with green mini band - B/L SLS with leg circumduction on green theradisc x10 -Side stepping with green mini band -Step Up 4'' Step x15 each, 1 UE assist -step up 6'' step x5 each LE Seated LAQ 2 x 10 3# HSC [place] 2 x 10 Seated Hip Abd [place] 2 x 10 Seated hip add playball 2 x 10 5? hold Seated AAROM R DF x10 with tactile cues for eccentric lowering x10 Supine: - TRA set 5 x5 in hooklying [X] - TRA marches 2x10 alt [X] Quad set x10 5'' hold B (X) SAQ x20 B [X] Hooklying hip adduction, ball squeeze, 2x10 [X] Hooklying hip abduction, Purple Band, 2x10 [X] SLR 2 x 10 L 0# , 2 x 5 R w/manual assist [X . Neuromuscular Re-education (18599):. GAIT BELT USED NOT COMPLETED 11/12/20 // bars: Tandem Stance 30 e (more content not included)... Normal [facility] PT Progress Noteon 1 PT Progress Note Therapy Diagnosis Assessed Bone pain of knee (733.90) (M89.8X6) Chronic pain of both knees (719.46,338.29) (M25.561,M25.562,G89.2 9) Loose body of left knee (717.6) (M23.42) Infrapatellar bursitis of right knee (726.69) (M70.51) Traumatic hematoma of left knee, subsequent encounter (V58.89,924.11) (S80.02XD) Plan Goals: Goals set and discussed today. 1. Independent HEP to allow for 50% reduction in max ADL C/C sx ( L-01/18; R-11/18)2-3wks 03/21 L; 01/18 R; within the last 5 days; 10/09/20; NOT MET 2. 010 night time sx to allow for uninterrupted sleep x1wk ( 01/15) 2-3wks still wakes nightly; 10/09/20; NOT MET 3. Survey score improvement from 3/80 to 40/80 (LEFS) 4-6wks 5/80 as of 10/09/20; NOT MET 4. ROM increase to allow for improved ADL car transfers, dressing lowers (from 120 to 130 L knee flexion) 4-6wks no change with ADL; 110 active L knee bend; 10/09/20; NOT MET 5. Strength increase to allow for improved ADL sit to stdg transfers, stairs (from 3+/4- R/L knee to gr4+ B) 4-6wks no change; gr4-/4+ R/L knee; 10/09/20; PARTIALLY MET 6. Strength increase to allow for improved ADL sit to stdg transfers, stairs (from 4/4- R hip to gr4+) 4-6wks no change with noted ADL; gr4/4- R hip today; 10/09/20; NOT MET Planned interventions include: aquatic therapy, cryotherapy, education/instruction, electrical stimulation, gait training, home program, hot pack, kinesiotaping, manual therapy, neuromuscular re-education, self care/home management and therapeutic exercises. Frequency and duration: 3 time(s) a week, for 6 weeks, for 17 visits. Potential to achieve rehab goals is fair: chronic syndrome Plan to continue with progressions of strengthening and balance/stability training to decrease pain and improve ease/tolerance with functional/community ambulation. Assessment Patient ID confirmed using Name and . Patient wearing mask throughout session today d/t COVID-19 precautions. Patient with good tolerance to treatment, no c/o increased pain/discomfort in clinic. Patient making progress with strength/stability but continues to be somewhat limited by pain. Adult Risk Screening There are no spiritual/cultural practices/values/needs that are important to know Initial Fall Risk Screening: KHOA has not fallen in the last 6 months. KHOA does not have a fear of falling. He does not need assistance with sitting, standing or walking. Does not need assistance walking in his home. He does not need assistance in an unfamiliar setting. The patient is using an assistive device. Fall Risk Screening: Patient is identified as a fall risk. Care Plan: Low Risk: Environmental for all patients and low risk patients: Offer assistance as needed or requested, keep environment free of obstacles, keep floor clean and dry, keep room lighting, wheelchair brakes on, bed/ stretcher locked and in low position if applicable, non-slip footwear if applicable, walker/cane available if needed, side rails up if applicable and pre-emptive toileting. Pain Scale: On a scale of 0 to 10, the patient rates the pain at 8. Please identify location of pain: L knee 8/10, R knee 7/10. Pain Quality: burning, pressure, sharp, tightness, throbbing and R numbness. The pain makes it hard for the patient to do these things: walking, exercise and self-care (bathing, dressing, eating). Insurance Insurance reviewed Visit number: 27 Approved number of visits: 12 Authorization date range: C-9 until 11/21/20 5/10 Per Carolyn (helpdesk analyst) date extended to 11/21/20 [facility] 18v Evaluating therapist William Pastor PT. M25.561; M89.8X6; S80.02Xd; M70.51; M23.42; LATEX ALLERGY; RLE MYOTOME WEAKNESS Subjective Patient reports:. continued LE pain and weakness, no new c/o. Home program performing as directed: Yes. 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 Treatment Time in clinic started at 1000 Time in clinic ended at 1045 Total time in clinic is 45 minutes. Total timed code time is 40 minutes. Therapeutic exercise (06727): timed minutes 40, units 3 . * See NMR NuStep SciFit L4.5 5' (P, resistance) - HR/TR 2x10 - Mini squat 2x10 - B hip abd 2x10 green mini band (P, resistance) - Hip ext 2x10 green mini band - marches x 15 with green mini band - B/L SLS with leg circumduction on green theradisc x10 -Side stepping with green mini band -Step Up 4'' Step x15 each, 1 UE assist -step up 6'' step x5 each LE Seated LAQ 2 x 10 3# HSC [place] 2 x 10 Seated Hip Abd [place] 2 x 10 Seated hip add playball 2 x 10 5? hold Seated AAROM R DF x10 with tactile cues for eccentric lowering x10 Supine: - TRA set 5 x5 in hooklying [X] - TRA marches 2x10 alt [X] Quad set x10 5'' hold B (X) SAQ x20 B [X] Hooklying hip adduction, ball squeeze, 2x10 [X] Hooklying hip abduction, Purple Band, 2x10 [X] (more content not included)... Normal [facility] PT Progress Noteon 1 PT Progress Note Therapy Diagnosis Assessed Traumatic hematoma of left knee, subsequent encounter (V58.89,924.11) (S80.02XD) Infrapatellar bursitis of right knee (726.69) (M70.51) Loose body of left knee (717.6) (M23.42) Chronic pain of both knees (719.46,338.29) (M25.561,M25.562,G89.2 9) Bone pain of knee (733.90) (M89.8X6) Plan Goals: Goals set and discussed today. 1. Independent HEP to allow for 50% reduction in max ADL C/C sx ( L-01/18; R-11/18)2-3wks 9 L; 01/18 R; within the last 5 days; 10/09/20; NOT MET 2. 0/10 night time sx to allow for uninterrupted sleep x1wk ( 01/15) 2-3wks still wakes nightly; 10/09/20; NOT MET 3. Survey score improvement from to 40/80 (LEFS) 4-6wks as of 10/09/20; NOT MET 4. ROM increase to allow for improved ADL car transfers, dressing lowers (from 120 to 130 L knee flexion) 4-6wks no change with ADL; 110 active L knee bend; 10/09/20; NOT MET 5. Strength increase to allow for improved ADL sit to stdg transfers, stairs (from 3+/4- R/L knee to gr4+ B) 4-6wks no change; gr4-/4+ R/L knee; 10/09/20; PARTIALLY MET 6. Strength increase to allow for improved ADL sit to stdg transfers, stairs (from 4/4- R hip to gr4+) 4-6wks no change with noted ADL; gr4/4- R hip today; 10/09/20; NOT MET Planned interventions include: aquatic therapy, cryotherapy, education/instruction, electrical stimulation, gait training, home program, hot pack, kinesiotaping, manual therapy, neuromuscular re-education, self care/home management and therapeutic exercises. Frequency and duration: 3 time(s) a week, for 6 weeks, for 17 visits. Potential to achieve rehab goals is fair: chronic syndrome Plan to continue with progressions of strengthening as tolerated to reduce pain and improve ease/tolerance with functional/community ambulation. Assessment Patient ID confirmed using Name and . Patient wearing mask throughout session today d/t COVID-19 precautions. Patient with good tolerance to treatment, no c/o increased pain/discomfort in clinic. Patient able to complete low reps of fwd step up on 6'' step this date, demos improved/improving strength. Adult Risk Screening There are no spiritual/cultural practices/values/needs that are important to know Initial Fall Risk Screening: KHOA has not fallen in the last 6 months. KHOA does not have a fear of falling. He does not need assistance with sitting, standing or walking. Does not need assistance walking in his home. He does not need assistance in an unfamiliar setting. The patient is using an assistive device. Fall Risk Screening: Patient is identified as a fall risk. Care Plan: Low Risk: Environmental for all patients and low risk patients: Offer assistance as needed or requested, keep environment free of obstacles, keep floor clean and dry, keep room lighting, wheelchair brakes on, bed/ stretcher locked and in low position if applicable, non-slip footwear if applicable, walker/cane available if needed, side rails up if applicable and pre-emptive toileting. Pain Scale: On a scale of 0 to 10, the patient rates the pain at 8. Please identify location of pain: L knee 8/10, R knee 7/10. Pain Quality: burning, pressure, sharp, tightness, throbbing and R numbness. The pain makes it hard for the patient to do these things: walking, exercise and self-care (bathing, dressing, eating). Insurance Insurance reviewed Visit number: 27 Approved number of visits: 12 Authorization date range: C-9 until 11/21/20 5/10 Per Carolyn (helpdesk analyst) date extended to 11/21/20 [facility] 18v Evaluating therapist William Pastor PT. M25.561; M89.8X6; S80.02Xd; M70.51; M23.42; LATEX ALLERGY; RLE MYOTOME WEAKNESS Subjective Patient reports:. Patient reports he had a f/u with shoulder ortho yesterday, he wants to do injection and stated patient needs to have his knee fixed and completely rehabbed before attempting to fix shoulder. Home program performing as directed: Yes. 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 Treatment Time in clinic started at 1002 Time in clinic ended at 1045 Total time in clinic is 43 minutes. Total timed code time is 40 minutes. Therapeutic exercise (25485): timed minutes 40, units 3 . * See NMR NuStep SciFit L4.5 5' (P, resistance) - HR/TR 2x10 - Mini squat 2x10 - B hip abd 2x10 green mini band (P, resistance) - Hip ext 2x10 green mini band - marches x 15 with green mini band - B/L SLS with leg circumduction on green theradisc x10 -Side stepping with green mini band -Step Up 4'' Step x15 each, 1 UE assist -step up 6'' step x5 each LE Seated LAQ 2 x 10 3# HSC [place] 2 x 10 Seated Hip Abd [place] 2 x 10 Seated hip add playball 2 x 10 5? hold Seated AAROM R DF x10 with tactile cues for eccentric lowering x10 Supine: - TRA set 5 x5 in hooklying [X] - TRA marches 2x10 alt [X] Quad (more content not included)... Normal [facility]14on 11-11-2020 [facility]-14 Signatures Electronically signed by : Philip Stock MD; Nov 13 2020 10:00PM EST (Author) [facility] *Chief Complaint FUV R. SHOULDER [facility] History of Present IllnessThe patient is a 60 year old male presenting today for evaluation of his right shoulder. In May 2019, he suffered a fall while at work onto his outstretched right arm. He was seen in urgent care following that and has been managed elsewhere for his knee. He was sent to therapy for his shoulder but it made his pain worse. He notes that his biggest complaint is range of motion and stiffness. He has had an x-ray and MRI of his shoulder. He reports that he has had an injection but it did not provide any relief. Past medical history, surgical history, social history, and family history were all reviewed and are as per the [place] patient health history questionnaire form that I signed and scanned into the chart today. Review of Systems Review of systems for all 14 systems is negative except for the above noted findings in the history of present illness. *Current Meds Medication NameInstruction Cyclobenzaprine HCl - 10 MG Oral TabletTAKE 1 TABLET 3 TIMES DAILY. Ibuprofen 600 MG Oral Tablet Methocarbamol 500 MG Oral TabletTAKE 1 TABLET 4 TIMES DAILY PRN MUSCLE SPASM *Allergies Medication No Known Drug Allergies NonMedication Latex Physical Exam Patient is a well-developed, well-nourished gentleman in no acute distress. Breathes with normal chest rises. Pupils are round and symmetric today. Awake alert and oriented x3. Examination of the left shoulder today reveals the skin to be intact. There is no sign any atrophy, lesions, or abrasions. There is no pain to palpation of the bony prominences. Cervical lymphadenopathy examined, and this was negative. Patient had 5 out of 5 wrist flexors extension thumb extension bilaterally. Sensation was intact to light touch to median, ulnar, radial, axillary, and musculocutaneous nerves bilaterally. Positive radial pulse bilaterally. Provocative maneuvers on the left side today were negative. Range of motion of the left shoulder revealed 0-170 of forward elevation. 0-60 of external rotation. Internal rotation was to T 12. Examination of the right shoulder today reveals the skin to be intact. 60 degrees forward elevation, passively correctable to 120, 30, crepitus with rang of motion. Pain diffusely around shoulder. Provocative maneuvers for rotator cuff are negative. *Results/Data x-ray shows moderate arthritis of the right shoulder. MRI shows partial thickness of the rotator cuff tear, likely age related, as well as moderate arthritis. *Diagnosis/Problems Assessed Right shoulder pain, unspecified chronicity (719.41) (M25.511) *Patient Discussion/Summary Patient with substantial aggravation of an underlying diagnosis s/p documented Workers Compensation injury to the right shoulder. At this time we had a long discussion about the various options for shoulder arthritis. 1. Do nothing. Continue activity modifications. 2. Consider cortisone injections into the glenohumeral joint. This would give pain relief that is temporary. This would not stop the progression of arthritis. For some patients, this injection can last not at all, for 2 weeks, 4 weeks, 3 months or longer. The risk of the injection is fairly minimal but does include a very small chance of infection. 3. A total shoulder replacement is the third option. This will give the patient a more permanent solution to pain relief. It would also improve function. There is no masters to this procedure it is an elective procedure. At this point, his exam is consistent with his underlying diagnosis and consistent with his Workers Compensation injury. We are going to request another injection. In the meantime, while at work, he should not be using his right arm for lifting or for repetitive overhead activities. Follow up once the injection is approved. By signing my name below, I, Estefany Maxwellibe, attest that this documentation has been prepared under the direction and in the presence of Philip Stock. All medical record entries made by the Scribe were at my direction and personally dictated by me. I have reviewed the chart and agree that the record accurately reflects my personal performance of the history, physical exam, discussion and plan. Signatures Electronically signed by : Philip Stock MD; Nov 13 2020 10:00PM EST (Author) Normal [facility] PT Progress Noteon 1 PT Progress Note Therapy Diagnosis Assessed Bone pain of knee (733.90) (M89.8X6) Chronic pain of both knees (719.46,338.29) (M25.561,M25.562,G89.2 9) Loose body of left knee (717.6) (M23.42) Infrapatellar bursitis of right knee (726.69) (M70.51) Traumatic hematoma of left knee, subsequent encounter (V58.89,924.11) (S80.02XD) Plan Goals: Goals set and discussed today. 1. Independent HEP to allow for 50% reduction in max ADL C/C sx ( L-01/18; R-11/18)2-3wks 03/21 L; 01/18 R; within the last 5 days; 10/09/20; NOT MET 2. 0/10 night time sx to allow for uninterrupted sleep x1wk ( 01/15) 2-3wks still wakes nightly; 10/09/20; NOT MET 3. Survey score improvement from 80 to 40/80 (LEFS) 4-6wks as of 10/09/20; NOT MET 4. ROM increase to allow for improved ADL car transfers, dressing lowers (from 120 to 130 L knee flexion) 4-6wks no change with ADL; 110 active L knee bend; 10/09/20; NOT MET 5. Strength increase to allow for improved ADL sit to stdg transfers, stairs (from 3+/4- R/L knee to gr4+ B) 4-6wks no change; gr4-/4+ R/L knee; 10/09/20; PARTIALLY MET 6. Strength increase to allow for improved ADL sit to stdg transfers, stairs (from 4/4- R hip to gr4+) 4-6wks no change with noted ADL; gr4/4- R hip today; 10/09/20; NOT MET Planned interventions include: aquatic therapy, cryotherapy, education/instruction, electrical stimulation, gait training, home program, hot pack, kinesiotaping, manual therapy, neuromuscular re-education, self care/home management and therapeutic exercises. Frequency and duration: 3 time(s) a week, for 6 weeks, for 17 visits. Potential to achieve rehab goals is fair: chronic syndrome will continue to work on strengthening and ROM to be able to decrease pain and improve tolerance with ADL's to be able to return to full work duties. Assessment Patient ID confirmed using Name and . Patient wearing mask throughout session today d/t COVID-19 precautions. Pt demos UE reliance with mini squats in parallel bars due to weakness in LE's. Demos difficulty with abduction and extension with RLE. PUNEET Guevara participated in treatment this date with continuous supervision and all clinical decision making by Emeterio Palacio PTA, CCI. Adult Risk Screening There are no spiritual/cultural practices/values/needs that are important to know Initial Fall Risk Screening: KHOA has not fallen in the last 6 months. KHOA does not have a fear of falling. He does not need assistance with sitting, standing or walking. Does not need assistance walking in his home. He does not need assistance in an unfamiliar setting. The patient is using an assistive device. Fall Risk Screening: Patient is identified as a fall risk. Care Plan: Low Risk: Environmental for all patients and low risk patients: Offer assistance as needed or requested, keep environment free of obstacles, keep floor clean and dry, keep room lighting, wheelchair brakes on, bed/ stretcher locked and in low position if applicable, non-slip footwear if applicable, walker/cane available if needed, side rails up if applicable and pre-emptive toileting. Pain Scale: On a scale of 0 to 10, the patient rates the pain at 8. Please identify location of pain: L knee 8/10, R knee 7/10. Pain Quality: burning, pressure, sharp, tightness, throbbing and R numbness. The pain makes it hard for the patient to do these things: walking, exercise and self-care (bathing, dressing, eating). Insurance Insurance reviewed Visit number: 26 Approved number of visits: 12 Authorization date range: C-9 until 11/21/20 5/10 Per Carolyn (helpdesk analyst) date extended to 11/21/20 [facility] 18v Evaluating therapist William Pastor PT. M25.561; M89.8X6; S80.02Xd; M70.51; M23.42; LATEX ALLERGY; RLE MYOTOME WEAKNESS Subjective Patient reports:. Pt reports having pain with doing nustep this date and states that nustep is working a muscle that the scifit doesn?t work. States that he is having a lot of pain this date. Home program performing as directed: Yes. 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 Treatment Time in clinic started at 1000 am Time in clinic ended at 1045 am Total time in clinic is 45 minutes. Total timed code time is 43 minutes. Therapeutic exercise (93274): timed minutes 35, units 2 . * See NMR NuStep SciFit L4.5 5' (P, resistance) - HR/TR 2x10 - Mini squat 2x10 - B hip abd 2x10 yellow mini band (P, resistance) - Hip ext 2x10 yellow mini band - marches x 15 with peach t-band - B/L SLS with leg circumduction on green theradisc x10 -Side stepping with yellow mini band - Step Up 4'' Step x15 each, 1 UE assist (X) - Mini Band Sidestep in // bars x 3 each dir, yellow band (X) Seated LAQ 2 x 10 3# HSC [place] 2 x 10 Seated Hip Abd [place] 2 x 10 Seated hip add playball 2 x 10 5? hold Seated AAROM R DF x10 wit (more content not included)... Normal [facility] PT Progress Noteon 1 PT Progress Note Therapy Diagnosis Assessed Traumatic hematoma of left knee, subsequent encounter (V58.89,924.11) (S80.02XD) Infrapatellar bursitis of right knee (726.69) (M70.51) Loose body of left knee (717.6) (M23.42) Chronic pain of both knees (719.46,338.29) (M25.561,M25.562,G89.2 9) Bone pain of knee (733.90) (M89.8X6) Plan Goals: Goals set and discussed today. 1. Independent HEP to allow for 50% reduction in max ADL C/C sx ( L-01/18; R-11/18)2-3wks 9/10 L; 01/18 R; within the last 5 days; 10/09/20; NOT MET 2. 0/10 night time sx to allow for uninterrupted sleep x1wk ( 01/15) 2-3wks still wakes nightly; 10/09/20; NOT MET 3. Survey score improvement from 380 to 40/80 (LEFS) 4-6wks 5/80 as of 10/09/20; NOT MET 4. ROM increase to allow for improved ADL car transfers, dressing lowers (from 120 to 130 L knee flexion) 4-6wks no change with ADL; 110 active L knee bend; 10/09/20; NOT MET 5. Strength increase to allow for improved ADL sit to stdg transfers, stairs (from 3+/4- R/L knee to gr4+ B) 4-6wks no change; gr4-/4+ R/L knee; 10/09/20; PARTIALLY MET 6. Strength increase to allow for improved ADL sit to stdg transfers, stairs (from 4/4- R hip to gr4+) 4-6wks no change with noted ADL; gr4/4- R hip today; 10/09/20; NOT MET Planned interventions include: aquatic therapy, cryotherapy, education/instruction, electrical stimulation, gait training, home program, hot pack, kinesiotaping, manual therapy, neuromuscular re-education, self care/home management and therapeutic exercises. Frequency and duration: 3 time(s) a week, for 6 weeks, for 17 visits. Potential to achieve rehab goals is fair: chronic syndrome will continue on progressing towards goals to help reduce radicular sx and able to return to PLOF pain free. Assessment Patient ID confirmed using Name and . Patient wearing mask throughout session today d/t COVID-19 precautions. Pt demos difficulty with heel raises this date and tandem stance with an increased pain in back. Verbal cues needed to reduce heavy reliance of UE's with mini squats this date in parallel bars. Noted increased fatigue this date with exercises in parallel bar with irritation of back. Unable to get to supine exercises this date due to increased pain and fatigue this date from pt. PUNEET Guevara participated in treatment this date with continuous supervision and all clinical decision making by Emeterio Palacio PTA, CCI. Adult Risk Screening There are no spiritual/cultural practices/values/needs that are important to know Initial Fall Risk Screening: KHOA has not fallen in the last 6 months. KHOA does not have a fear of falling. He does not need assistance with sitting, standing or walking. Does not need assistance walking in his home. He does not need assistance in an unfamiliar setting. The patient is using an assistive device. Fall Risk Screening: Patient is identified as a fall risk. Care Plan: Low Risk: Environmental for all patients and low risk patients: Offer assistance as needed or requested, keep environment free of obstacles, keep floor clean and dry, keep room lighting, wheelchair brakes on, bed/ stretcher locked and in low position if applicable, non-slip footwear if applicable, walker/cane available if needed, side rails up if applicable and pre-emptive toileting. Pain Scale: On a scale of 0 to 10, the patient rates the pain at 8. Please identify location of pain: L knee 8/10, R knee 7/10. Pain Quality: burning, pressure, sharp, tightness, throbbing and R numbness. The pain makes it hard for the patient to do these things: walking, exercise and self-care (bathing, dressing, eating). Insurance Insurance reviewed Visit number: 25 Approved number of visits: 12 Authorization date range: C-9 until 11/21/20 5/10 Per Carolyn (helpdesk analyst) date extended to 11/21/20 [facility] 18v Evaluating therapist William Pastor PT. M25.561; M89.8X6; S80.02Xd; M70.51; M23.42; LATEX ALLERGY; RLE MYOTOME WEAKNESS Subjective Patient reports:. Pt reports having increased pain this date with L knee feeling like its burning worse than a workout burn. Describes it as having an occasional sharp stabbing pain. Reports that his whole body is sore today and that he doesn't feel like he is getting any better. Home program performing as directed: Yes. 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 Treatment Time in clinic started at 1000 am Time in clinic ended at 1045 am Total time in clinic is 45 minutes. Total timed code time is 43 minutes. Therapeutic exercise (16355): timed minutes 35, units 2 . * See NMR NuStep SciFit L4.5 5' (P, resistance) - HR/TR 2x10 - Mini squat 2x10 - B hip abd 2x10 yellow mini band (P, resistance) - Hip ext 2x10 (green theradisc under L leg for R ext) peach t-band - marches x 15 with peach t-band (P) - B/L SLS with leg circum (more content not included)... Normal [facility] PT Progress Noteon 1 PT Progress Note Therapy Diagnosis Assessed Bone pain of knee (733.90) (M89.8X6) Chronic pain of both knees (719.46,338.29) (M25.561,M25.562,G89.2 9) Loose body of left knee (717.6) (M23.42) Infrapatellar bursitis of right knee (726.69) (M70.51) Traumatic hematoma of left knee, subsequent encounter (V58.89,924.11) (S80.02XD) Plan Goals: Goals set and discussed today. 1. Independent HEP to allow for 50% reduction in max ADL C/C sx ( L-01/18; R-510)2-3wks 9/10 L; 01/18 R; within the last 5 days; 10/09/20; NOT MET 2. 0/10 night time sx to allow for uninterrupted sleep x1wk ( 01/15) 2-3wks still wakes nightly; 10/09/20; NOT MET 3. Survey score improvement from 380 to 40/80 (LEFS) 4-6wks 5/80 as of 10/09/20; NOT MET 4. ROM increase to allow for improved ADL car transfers, dressing lowers (from 120 to 130 L knee flexion) 4-6wks no change with ADL; 110 active L knee bend; 10/09/20; NOT MET 5. Strength increase to allow for improved ADL sit to stdg transfers, stairs (from 3+/4- R/L knee to gr4+ B) 4-6wks no change; gr4-/4+ R/L knee; 10/09/20; PARTIALLY MET 6. Strength increase to allow for improved ADL sit to stdg transfers, stairs (from 4/4- R hip to gr4+) 4-6wks no change with noted ADL; gr4/4- R hip today; 10/09/20; NOT MET Planned interventions include: aquatic therapy, cryotherapy, education/instruction, electrical stimulation, gait training, home program, hot pack, kinesiotaping, manual therapy, neuromuscular re-education, self care/home management and therapeutic exercises. Frequency and duration: 3 time(s) a week, for 6 weeks, for 17 visits. Potential to achieve rehab goals is fair: chronic syndrome Continue LE strengthening and muscle facilitation to allow diminishedpain during ADLs. Assessment Patient identified by name and date of . Patient required cues for hold time with exercises. He required use of strap with eccentric lowering and cues for control. He demonstrated moderate sway and intermit support with tandem stance. Adult Risk Screening There are no spiritual/cultural practices/values/needs that are important to know Initial Fall Risk Screening: KHOA has not fallen in the last 6 months. KHOA does not have a fear of falling. He does not need assistance with sitting, standing or walking. Does not need assistance walking in his home. He does not need assistance in an unfamiliar setting. The patient is using an assistive device. Fall Risk Screening: Patient is identified as a fall risk. Care Plan: Low Risk: Environmental for all patients and low risk patients: Offer assistance as needed or requested, keep environment free of obstacles, keep floor clean and dry, keep room lighting, wheelchair brakes on, bed/ stretcher locked and in low position if applicable, non-slip footwear if applicable, walker/cane available if needed, side rails up if applicable and pre-emptive toileting. Pain Scale: On a scale of 0 to 10, the patient rates the pain at 9. Please identify location of pain: L knee 9/10, R knee 7/10. Pain Quality: burning, pressure, sharp, tightness, throbbing and R numbness. The pain makes it hard for the patient to do these things: walking, exercise and self-care (bathing, dressing, eating). Insurance Insurance reviewed Visit number: 24 Approved number of visits: 12 Authorization date range: C-9 until 11/21/2011/18 Per Carolyn (helpdesk analyst) date extended to 11/21/20 [facility] 18v Evaluating therapist William Pastor PT. M25.561; M89.8X6; S80.02Xd; M70.51; M23.42; LATEX ALLERGY; RLE MYOTOME WEAKNESS Subjective Patient reports:. Patient reported not change in Sx after treatment. Home program performing as directed: Yes. 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 Treatment Time in clinic started at 04:15 Time in clinic ended at 05:04 Total time in clinic is 49 minutes. Total timed code time is 45 minutes. Therapeutic exercise (68746): timed minutes 37, units 3 . * See NMR NuStep SciFit L4 5' - HR/TR 2x10 - Mini squat 2x10 - B hip abd 2x10 - Hip ext 2x10 (green theradisc under L leg for R ext) peach t-band - marches x 15 with peach t-band (P) - B/L SLS with leg circumduction on green theradisc x10 -Side stepping with peach t-band - Step Up 4'' Step x15 each, 1 UE assist (X) - Mini Band Sidestep in // bars x 3 each dir, yellow band (X) Seated LAQ 2 x 10 3# HSC [place] 2 x 10 Seated Hip Abd [place] 2 x 10 Seated hip add playball 2 x 10 3? hold Seated AAROM R DF x10 with tactile cues for eccentric lowering x10 Supine: - TRA set 5 x5 in hooklying [X] - TRA marches 2x10 alt [X] Quad set x10 5'' hold B (X) SAQ x20 B [X] Hooklying hip adduction, ball squeeze, 2x10 [X] Hooklying hip abduction, Purple Band, 2x10 [X] SLR 2 x 10 L 0# , 2 x 5 R w/manual assist [X . Neuromuscular Re-education (16631): timed minutes 8, (more content not included)... Normal [facility] PT Progress Noteon 1 PT Progress Note Therapy Diagnosis Assessed Bone pain of knee (733.90) (M89.8X6) Chronic pain of both knees (719.46,338.29) (M25.561,M25.562,G89.2 9) Loose body of left knee (717.6) (M23.42) Infrapatellar bursitis of right knee (726.69) (M70.51) Traumatic hematoma of left knee, subsequent encounter (V58.89,924.11) (S80.02XD) Plan Goals: Goals set and discussed today. 1. Independent HEP to allow for 50% reduction in max ADL C/C sx ( L-01/18; R-11/18)2-3wks 03/21 L; 01/18 R; within the last 5 days; 10/09/20; NOT MET 2. 0/10 night time sx to allow for uninterrupted sleep x1wk ( 01/15) 2-3wks still wakes nightly; 10/09/20; NOT MET 3. Survey score improvement from 380 to 40/80 (LEFS) 4-6wks as of 10/09/20; NOT MET 4. ROM increase to allow for improved ADL car transfers, dressing lowers (from 120 to 130 L knee flexion) 4-6wks no change with ADL; 110 active L knee bend; 10/09/20; NOT MET 5. Strength increase to allow for improved ADL sit to stdg transfers, stairs (from 3+/4- R/L knee to gr4+ B) 4-6wks no change; gr4-/4+ R/L knee; 10/09/20; PARTIALLY MET 6. Strength increase to allow for improved ADL sit to stdg transfers, stairs (from 4/4- R hip to gr4+) 4-6wks no change with noted ADL; gr4/4- R hip today; 10/09/20; NOT MET Planned interventions include: aquatic therapy, cryotherapy, education/instruction, electrical stimulation, gait training, home program, hot pack, kinesiotaping, manual therapy, neuromuscular re-education, self care/home management and therapeutic exercises. Frequency and duration: 3 time(s) a week, for 6 weeks, for 17 visits. Potential to achieve rehab goals is fair: chronic syndrome Continue LE strengthening and muscle facilitation to allow diminishedpain during ADLs. Assessment Patient identified by name and date. Weakness in L ankle inverters and DF noted. Gait pattern Trendelenburg L with R hip hiking to clear foot due to inability to DF. B/L abductors weak, requires verbal cues to keep hip alignment neutral with standing abduction. Consistent verbal and tactile cues with demonstration required for proper technique to avoid trunk compensation. Noted quick fatigue..Chelsie Greco SPTA All clinical decision making and treatment directly supervised by Leslye Brandt DATA ENTRY TECHNICIAN [id number]. Adult Risk Screening There are no spiritual/cultural practices/values/needs that are important to know Initial Fall Risk Screening: KHOA has not fallen in the last 6 months. KHOA does not have a fear of falling. He does not need assistance with sitting, standing or walking. Does not need assistance walking in his home. He does not need assistance in an unfamiliar setting. The patient is using an assistive device. Fall Risk Screening: Patient is identified as a fall risk. Care Plan: Low Risk: Environmental for all patients and low risk patients: Offer assistance as needed or requested, keep environment free of obstacles, keep floor clean and dry, keep room lighting, wheelchair brakes on, bed/ stretcher locked and in low position if applicable, non-slip footwear if applicable, walker/cane available if needed, side rails up if applicable and pre-emptive toileting. Pain Scale: On a scale of 0 to 10, the patient rates the pain at 9. Please identify location of pain: L knee 03/21, R knee 02/18. Pain Quality: burning, pressure, sharp, tightness, throbbing and R numbness. The pain makes it hard for the patient to do these things: walking, exercise and self-care (bathing, dressing, eating). Insurance Insurance reviewed Visit number: 23 Authorization date range: C-9 until 10/09/2010/19 Per Carolyn (helpdesk analyst) date extended to 10/09/20 [facility] 18v Evaluating therapist William Pastor PT. M25.561; M89.8X6; S80.02Xd; M70.51; M23.42; LATEX ALLERGY; RLE MYOTOME WEAKNESS Subjective Patient reports:. Patient reports that since the beginning of therapy he has been having more L knee pain and swelling and uses ice frequently. Says that he has three sets of stairs at his house and avoids them due to L knee pain and R hip instability. Only uses them to shower and get to bed. No change in pain post Tx. Home program performing as directed: Yes. 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 Treatment Time in clinic started at 10:58 am Time in clinic ended at 10:45 am Total time in clinic is 47 minutes. Total timed code time is 45 minutes. Therapeutic exercise (05038): timed minutes 45, units 3 . * * See NMR SciFit L4 5' - HR/TR x10 - Mini squat 2x10 - B hip abd 2x10 - Hip ext 2x10 (green theradisc under L leg for R ext) - marches x 15 (N) - B/L SLS with leg circumduction on green theradisc x10 (N) - Step Up 4'' Step x15 each, 1 UE assist (X) - Mini Band Sidestep in // bars x 3 each dir, yellow band (X) Seated LAQ 2 x 10 3# HSC [place] 2 x 10 Seated Hip Abd [place] 2 x 10 (more content not included)... Normal [facility] PT Progress Noteon 1 PT Progress Note Therapy Diagnosis Assessed Bone pain of knee (733.90) (M89.8X6) Traumatic hematoma of left knee, subsequent encounter (V58.89,924.11) (S80.02XD) Infrapatellar bursitis of right knee (726.69) (M70.51) Loose body of left knee (717.6) (M23.42) Chronic pain of both knees (719.46,338.29) (M25.561,M25.562,G89.2 9) Plan Goals: Goals set and discussed today. 1. Independent HEP to allow for 50% reduction in max ADL C/C sx ( L-01/18; R-11/18)2-3wks 9 L; 01/18 R; within the last 5 days; 10/09/20; NOT MET 2. 0/10 night time sx to allow for uninterrupted sleep x1wk ( 01/15) 2-3wks still wakes nightly; 10/09/20; NOT MET 3. Survey score improvement from 380 to 40/80 (LEFS) 4-6wks 5/80 as of 10/09/20; NOT MET 4. ROM increase to allow for improved ADL car transfers, dressing lowers (from 120 to 130 L knee flexion) 4-6wks no change with ADL; 110 active L knee bend; 10/09/20; NOT MET 5. Strength increase to allow for improved ADL sit to stdg transfers, stairs (from 3+/4- R/L knee to gr4+ B) 4-6wks no change; gr4-/4+ R/L knee; 10/09/20; PARTIALLY MET 6. Strength increase to allow for improved ADL sit to stdg transfers, stairs (from 4/4- R hip to gr4+) 4-6wks no change with noted ADL; gr4/4- R hip today; 10/09/20; NOT MET Planned interventions include: aquatic therapy, cryotherapy, education/instruction, electrical stimulation, gait training, home program, hot pack, kinesiotaping, manual therapy, neuromuscular re-education, self care/home management and therapeutic exercises. Frequency and duration: 3 time(s) a week, for 6 weeks, for 17 visits. Potential to achieve rehab goals is fair: chronic syndrome Plan to continue with ex's progressing as able for ease of ADL's and car transfers. -MA. Assessment Patient identified by name AND . Patient wore a mask during treatment d/t Covid-19 precautions. Treatment consisted of ther ex's and NMR. Patient complains of knee and back pain with most of the ex's, but able to perform ex's even with the pain. Patient frustrated with decreased ability to perform R DF compared to ease of L DF. Patient's pain level the same post treatment. No LOB's during treatment. Patient was able to complete today's treatment with some difficulty. Adult Risk Screening There are no spiritual/cultural practices/values/needs that are important to know Initial Fall Risk Screening: KHOA has not fallen in the last 6 months. KHOA does not have a fear of falling. He does not need assistance with sitting, standing or walking. Does not need assistance walking in his home. He does not need assistance in an unfamiliar setting. The patient is using an assistive device. Fall Risk Screening: Patient is identified as a fall risk. Care Plan: Low Risk: Environmental for all patients and low risk patients: Offer assistance as needed or requested, keep environment free of obstacles, keep floor clean and dry, keep room lighting, wheelchair brakes on, bed/ stretcher locked and in low position if applicable, non-slip footwear if applicable, walker/cane available if needed, side rails up if applicable and pre-emptive toileting. Pain Scale: On a scale of 0 to 10, the patient rates the pain at 9. Please identify location of pain: L knee 9/10, R knee 8/10. Pain Quality: burning, pressure, sharp, tightness, throbbing and R numbness. The pain makes it hard for the patient to do these things: walking, exercise and self-care (bathing, dressing, eating). Insurance Insurance reviewed Visit number: 22 Authorization date range: C-9 until 10/09/2010/19 Per Carolyn (helpdesk analyst) date extended to 10/09/20 [facility] 18v Evaluating therapist William Pastor PT. M25.561; M89.8X6; S80.02Xd; M70.51; M23.42; LATEX ALLERGY; RLE MYOTOME WEAKNESS Subjective Patient reports:. Reports he has been having sharp pains in left knee since his visit on 10/09/20. State he also has difficulty ascending and descending stairs since then. Left knee pain 9/10 and right knee pain 8/10 pretreatment. Pain the same post treatment. Home program performing as directed: Yes. 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 Treatment Time in clinic started at 9:18 am Time in clinic ended at 10:03 am Total time in clinic is 45 minutes. Total timed code time is 42 minutes. Therapeutic exercise (08363): timed minutes 30, units 2 . * * See NMR NuStep x5' lv- 7, seat 15/arms 11 Sci fit recumbent bike, Lv-7 x5' Seat as far back as possible (X) //: - Mini squat 2x10 - B hip abd 2x10 - Hip ext 2x10 B, - Step Up 4'' Step x15 each, 1 UE assist (X) - Mini Band Sidestep in // bars x 3 each dir, yellow band (X) Seated LAQ 3 x 10 3# (P) HSC [place] 2 x 10 Seated Hip Abd [place] 2 x 10 Seated AAROM DF x10 with cues for eccentric lowering, count of 5 Supine: - TRA set 5 x5 in hooklying [X] - TRA marches 2x10 a (more content not included)... 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 With regards to the right shoulder is going back to see Dr. Stock who previously evaluated the shoulder. He did not have significant improvement after the corticosteroid injection. I was surprised he did not have more improvement. He has never really had much improvement with injections in the knees unfortunately. I do think he needs to continue the physical therapy for the lower extremities to strengthen them. We did again discuss potential risks with knee arthroplasty with regards to the left knee my main concern is with the significant weakness in the right lower extremity potential complications with left knee arthroplasty would really limit his lower extremity function. He has significant difficulty though with the left knee including pain that worsens with with any activity. I would leave it up to the patient as to which joint is most bothersome with its the right shoulder the left knee. I am not sure where rehabilitation be mostly affected. I will see him back in 1 month to evaluate how he is doing This note has been created with voice recognition software. Please be aware that there may be grammatical or contextual errors due to the use of the software. Chief Complaint PATIENT IS HERE FOR 4 WEEK FOLLOW UP BART KNEE AND RIGHT SHOULDER. [facility] DOI 06/01/19. STATES THAT THE SHOULDER AND KNEES ARE KILLING HIM. HE IS HAVING SHARP PAIN HAVING A HARDER TIME WITH STAIRS. PHYSICAL THERAPY PULLED ON IT AND TRIGGERED ALL OF THE PAIN. SHOULDER IS JUST THE SAME OLD THING ACHES ALL THE TIME. HE CAN NOT REACH FOR STUFF VERY PAINFUL, CANT PUT ABOVE HIS HEAD BUT CAN PUSH UP TO A STANDING POSITION. RIGHT LEG IS STILL ASLEEP AND MAKING THINGS HARDER. History of Present IllnessPatient is a 60-year-old male who presents today in follow-up with regards to his left knee. He continues to have significant pain in the knee. He has been doing physical therapy has been having some improvement. He continues also have significant pain in the right shoulder. He had no improvement with previous corticosteroid injection. He really has very limited use of his right lower extremity because of his nerve injury from his spinal fracture. Review of Systems Constitutional: no fever, no chills, not feeling tired, no recent weight gain and no recent weight loss. ENT: no nosebleeds. Cardiovascular: no chest pain. Respiratory: no shortness of breath and no cough. Gastrointestinal: no abdominal pain, no nausea, no diarrhea and no vomiting. Musculoskeletal: no arthralgias and as noted in HPI. Integumentary: no rashes and no skin wound. Neurological: no headache. Psychiatric: no depression and no sleep disturbances. Endocrine: no muscle cramps. Hematologic/Lymphatic: no swollen glands and no tendency for easy bruising. All other systems have been reviewed and are negative for complaint. 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) Right shoulder pain, unspecified chronicity (719.41) (M25.511) Sprain of right shoulder, initial encounter (840.9) (S43.401A) Strain of right shoulder, initial encounter (840.9) (S46.911A) Tear of medial meniscus of right knee (836.0) (S83.241A) Traumatic hematoma of left knee, subsequent encounter (V58.89,924.11) (S80.02XD) Traumatic incomplete tear of right rotator cuff, subsequent encounter (V58.89,840.4) (S46.011D) Past Medical History Problems No pertinent past medical history (V49.89) (Z78.9) History of Sprain of right shoulder, subsequent encounter (V58.89,840.9) (S43.401D) Resolved Date: 28 Aug 2020 Surgical History Problems History of Back surgery Family History Mother Family history of Known health problems: none Social History Problems Daily caffeine consumption Does not have living will Never a smoker No advance directives (V49.89) (Z78.9) Non-smoker (V49.89) (Z78.9) Allergies Medication No Known Drug Allergies Recorded By: Michelet Avendaño; 06/15/2019 10:19:19 AM NonMedication Latex Recorded By: Jocelyn (more content not included)... Normal [facility] PT Progress Noteon PT Progress Note Therapy Diagnosis Assessed Traumatic hematoma of left knee, subsequent encounter (V58.89,924.11) (S80.02XD) Loose body of left knee (717.6) (M23.42) Left knee pain, unspecified chronicity (719.46) (M25.562) Infrapatellar bursitis of right knee (726.69) (M70.51) Bone pain of knee (733.90) (M89.8X6) Plan Goals: Goals set and discussed today. 1. Independent HEP to allow for 50% reduction in max ADL C/C sx ( L-01/18; R-11/18)2-3wks 910 L; 01/18 R; within the last 5 days; 10/09/20; NOT MET 2. 0/10 night time sx to allow for uninterrupted sleep x1wk ( 01/15) 2-3wks still wakes nightly; 10/09/20; NOT MET 3. Survey score improvement from 380 to 40/80 (LEFS) 4-6wks as of 10/09/20; NOT MET 4. ROM increase to allow for improved ADL car transfers, dressing lowers (from 120 to 130 L knee flexion) 4-6wks no change with ADL; 110 active L knee bend; 10/09/20; NOT MET 5. Strength increase to allow for improved ADL sit to stdg transfers, stairs (from 3+/4- R/L knee to gr4+ B) 4-6wks no change; gr4-/4+ R/L knee; 10/09/20; PARTIALLY MET 6. Strength increase to allow for improved ADL sit to stdg transfers, stairs (from 4/4- R hip to gr4+) 4-6wks no change with noted ADL; gr4/4- R hip today; 10/09/20; NOT MET Planned interventions include: aquatic therapy, cryotherapy, education/instruction, electrical stimulation, gait training, home program, hot pack, kinesiotaping, manual therapy, neuromuscular re-education, self care/home management and therapeutic exercises. Frequency and duration: 3 time(s) a week, for 6 weeks, for 17 visits. Potential to achieve rehab goals is fair: chronic syndrome Plan to continue skilled activities to improve stg tolerance for daily chores and reduce fall risk. Progress with POC, as tolerated. Assessment Continue amb with FWW - slower little this morning as compared to previous session. Verbal cuing and demonstration to reduce compensations with LE ex -> improving. Fatigued after ther-ex and NMRE activities but patient denies increase in knee or back pain. Adult Risk Screening There are no spiritual/cultural practices/values/needs that are important to know Initial Fall Risk Screening: KHOA has not fallen in the last 6 months. KHOA does not have a fear of falling. He does not need assistance with sitting, standing or walking. Does not need assistance walking in his home. He does not need assistance in an unfamiliar setting. The patient is using an assistive device. Fall Risk Screening: Patient is identified as a fall risk. Care Plan: Low Risk: Environmental for all patients and low risk patients: Offer assistance as needed or requested, keep environment free of obstacles, keep floor clean and dry, keep room lighting, wheelchair brakes on, bed/ stretcher locked and in low position if applicable, non-slip footwear if applicable, walker/cane available if needed, side rails up if applicable and pre-emptive toileting. Pain Scale: On a scale of 0 to 10, the patient rates the pain at 9. Please identify location of pain: L knee 9/10, R knee 7/10. Pain Quality: burning, pressure, tightness, throbbing and R numbness. The pain makes it hard for the patient to do these things: walking, exercise and self-care (bathing, dressing, eating). Insurance Insurance reviewed Visit number: 21 Authorization date range: C-9 until 10/09/20 Salvatore Leon (helpdesk analyst) date extended to 10/09/20 [facility] 18v Evaluating therapist William Pastor PT. M25.561; M89.8X6; S80.02Xd; M70.51; M23.42; LATEX ALLERGY; RLE MYOTOME WEAKNESS Subjective Patient reports:. I was having a rough morning for some reason but I do feel a lot better after doing some of the ex's. Still having knee pain, though. My back's sore this morning, too, which is probably from sitting around so much yesterday. 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 Treatment Time in clinic started at 0959 Time in clinic ended at 1042 Total time in clinic is 43 minutes. Total timed code time is 40 minutes. Therapeutic exercise (09404): timed minutes 30, units 2 . * * See NMR NuStep x5' lv- 7, seat 15/arms 11 Sci fit recumbent bike, Lv-7 x5' Seat as far back as possible (X) //: - Mini squat 2x10 - B hip abd 2x10 - Hip ext 2x10 B, - Step Up 4'' Step x15 each, 1 UE assist X - Mini Band Sidestep in // bars x 3 each dir, yellow band X Seated LAQ 2 x 10 3# HSC Black Band 2 x 10 Seated Hip Abd Black Band 2 x 10 Seated AAROM DF x10 with cues for eccentric lowering Supine: - TRA set 5 x5 in hooklying [X] - TRA marches 2x10 alt [X] Quad set x10 5'' hold B (X) SAQ x20 B [X] Hooklying hip adduction, ball squeeze, 2x10 [X] Hooklying hip abduction, Purple Band, 2x10 [X] SLR 2 x 10 L 0# , 2 x 5 R w/manual assist [X] . Neuromuscular Re-education (88813): timed minutes 12, units 1 . GAIT BELT USED (more content not included)... Normal [facility] Progress Noteon 1 PT Progress Note Therapy Diagnosis Assessed Traumatic hematoma of left knee, subsequent encounter (V58.89,924.11) (S80.02XD) Loose body of left knee (717.6) (M23.42) Left knee pain, unspecified chronicity (719.46) (M25.562) Infrapatellar bursitis of right knee (726.69) (M70.51) Bone pain of knee (733.90) (M89.8X6) Plan Goals: Goals set and discussed today. 1. Independent HEP to allow for 50% reduction in max ADL C/C sx ( L-01/18; R-11/18)2-3wks 910 L; 01/18 R; within the last 5 days; 10/09/20; NOT MET 2. 0/10 night time sx to allow for uninterrupted sleep x1wk ( 01/15) 2-3wks still wakes nightly; 10/09/20; NOT MET 3. Survey score improvement from 3/80 to 40/80 (LEFS) 4-6wks 5/80 as of 10/09/20; NOT MET 4. ROM increase to allow for improved ADL car transfers, dressing lowers (from 120 to 130 L knee flexion) 4-6wks no change with ADL; 110 active L knee bend; 10/09/20; NOT MET 5. Strength increase to allow for improved ADL sit to stdg transfers, stairs (from 3+/4- R/L knee to gr4+ B) 4-6wks no change; gr4-/4+ R/L knee; 10/09/20; PARTIALLY MET 6. Strength increase to allow for improved ADL sit to stdg transfers, stairs (from 4/4- R hip to gr4+) 4-6wks no change with noted ADL; gr4/4- R hip today; 10/09/20; NOT MET Planned interventions include: aquatic therapy, cryotherapy, education/instruction, electrical stimulation, gait training, home program, hot pack, kinesiotaping, manual therapy, neuromuscular re-education, self care/home management and therapeutic exercises. Frequency and duration: 3 time(s) a week, for 6 weeks, for 17 visits. Potential to achieve rehab goals is fair: chronic syndrome Plan to continue skilled activities to improve stg tolerance for daily chores. Progress with POC, as tolerated. Assessment Occasional cuing/instructions to reduce compensations and perform ex's correctly. Continue amb using FWW - slow little but good balance on level surfaces in clinic. No increase in pain during or following session. Adult Risk Screening There are no spiritual/cultural practices/values/needs that are important to know Initial Fall Risk Screening: KHOA has not fallen in the last 6 months. KHOA does not have a fear of falling. He does not need assistance with sitting, standing or walking. Does not need assistance walking in his home. He does not need assistance in an unfamiliar setting. The patient is using an assistive device. Fall Risk Screening: Patient is identified as a fall risk. Care Plan: Low Risk: Environmental for all patients and low risk patients: Offer assistance as needed or requested, keep environment free of obstacles, keep floor clean and dry, keep room lighting, wheelchair brakes on, bed/ stretcher locked and in low position if applicable, non-slip footwear if applicable, walker/cane available if needed, side rails up if applicable and pre-emptive toileting. Pain Scale: On a scale of 0 to 10, the patient rates the pain at 9. Please identify location of pain: L knee 9/10, R knee 7/10. Pain Quality: burning, pressure, tightness, throbbing and R numbness. The pain makes it hard for the patient to do these things: walking, exercise and self-care (bathing, dressing, eating). Insurance Insurance reviewed Visit number: 20 Authorization date range: C-9 until 10/09/20 Per Carolyn (helpdesk analyst) date extended to 10/09/20 [facility] 18v Evaluating therapist William Pastor PT. M25.561; M89.8X6; S80.02Xd; M70.51; M23.42; LATEX ALLERGY; RLE MYOTOME WEAKNESS Subjective Patient reports:. I'm having kind of a rough day because of weakness in my left leg. I tried to help my move a large rock yesterday and it made me real tired today. I do feel that therapy is helping my legs because some strength is coming back and helping me walk a little better. 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 Treatment Time in clinic started at 1001 Time in clinic ended at 1047 Total time in clinic is 46 minutes. Total timed code time is 43 minutes. Therapeutic exercise (81489): timed minutes 30, units 2 . * * See NMR NuStep x5 lv- 7, seat 15/arms 11 Sci fit recumbent bike, Lv-7 x5' Seat as far back as possible (X) //: - Mini squat x15 - B hip abd 2x10 on airex - Hip ext x15 B, - Step Up 4'' Step x15 each, 1 UE assist X - Mini Band Sidestep in // bars x 3 each dir, yellow band X Seated LAQ 2 x 10 3# HSC Black Band 2 x 10 Seated Hip Abd Black Band 2 x 10 Seated AAROM DF x10 with cues for eccentric lowering Supine: - TRA set 5 x5 in hooklying [X] - TRA marches 2x10 alt [X] Quad set x10 5'' hold B (X) SAQ x20 B [X] Hooklying hip adduction, ball squeeze, 2x10 [X] Hooklying hip abduction, Purple Band, 2x10 [X] SLR 2 x 10 L 0# , 2 x 5 R w/manual assist [X] . Neuromuscular Re-education (48981): timed minutes 13, units 1 . GAIT BELT USED // bars: Un (more content not included)... Normal [facility] PT Progress Noteon 1 PT Progress Note Therapy Diagnosis Assessed Traumatic hematoma of left knee, subsequent encounter (V58.89,924.11) (S80.02XD) Loose body of left knee (717.6) (M23.42) Left knee pain, unspecified chronicity (719.46) (M25.562) Infrapatellar bursitis of right knee (726.69) (M70.51) Bone pain of knee (733.90) (M89.8X6) Plan Goals: Goals set and discussed today. 1. Independent HEP to allow for 50% reduction in max ADL C/C sx ( L-01/18; R-11/18)2-3wks 03/21 L; 01/18 R; within the last 5 days; 10/09/20; NOT MET 2. 0/10 night time sx to allow for uninterrupted sleep x1wk ( 01/15) 2-3wks still wakes nightly; 10/09/20; NOT MET 3. Survey score improvement from to 40/80 (LEFS) 4-6wks 5/80 as of 10/09/20; NOT MET 4. ROM increase to allow for improved ADL car transfers, dressing lowers (from 120 to 130 L knee flexion) 4-6wks no change with ADL; 110 active L knee bend; 10/09/20; NOT MET 5. Strength increase to allow for improved ADL sit to stdg transfers, stairs (from 3+/4- R/L knee to gr4+ B) 4-6wks no change; gr4-/4+ R/L knee; 10/09/20; PARTIALLY MET 6. Strength increase to allow for improved ADL sit to stdg transfers, stairs (from 4/4- R hip to gr4+) 4-6wks no change with noted ADL; gr4/4- R hip today; 10/09/20; NOT MET Planned interventions include: aquatic therapy, cryotherapy, education/instruction, electrical stimulation, gait training, home program, hot pack, kinesiotaping, manual therapy, neuromuscular re-education, self care/home management and therapeutic exercises. Frequency and duration: 3 time(s) a week, for 6 weeks, for 17 visits. Potential to achieve rehab goals is fair: chronic syndrome will continue to work on strengthening and balance to help improve ease of ambulation and decreased pain to be able to return to full work duties. Assessment Patient ID confirmed using Name and . Patient wearing mask throughout session today d/t COVID-19 precautions. Pt able to complete treatment with moderate difficulty but still demos weakness in R LE and pain in L LE. PUNEET Guevara participated in treatment this date with continuous supervision and all clinical decision making by Emeterio Palacio PTA, [facility]. Adult Risk Screening There are no spiritual/cultural practices/values/needs that are important to know Initial Fall Risk Screening: KHOA has not fallen in the last 6 months. KHOA does not have a fear of falling. He does not need assistance with sitting, standing or walking. Does not need assistance walking in his home. He does not need assistance in an unfamiliar setting. The patient is using an assistive device. Fall Risk Screening: Patient is identified as a fall risk. Care Plan: Low Risk: Environmental for all patients and low risk patients: Offer assistance as needed or requested, keep environment free of obstacles, keep floor clean and dry, keep room lighting, wheelchair brakes on, bed/ stretcher locked and in low position if applicable, non-slip footwear if applicable, walker/cane available if needed, side rails up if applicable and pre-emptive toileting. Pain Scale: On a scale of 0 to 10, the patient rates the pain at 9. Please identify location of pain: L knee 03/21, R knee /10. Pain Quality: burning, pressure, tightness, throbbing and R numbness. The pain makes it hard for the patient to do these things: walking, exercise and self-care (bathing, dressing, eating). Insurance Insurance reviewed Visit number: 19 Authorization date range: -9 until 10/09/20 Per Carolyn (helpdesk analyst) date extended to 10/09/20 [facility] 18v Evaluating therapist William Pastor PT. M25.561; M89.8X6; S80.02Xd; M70.51; M23.42; LATEX ALLERGY; RLE MYOTOME WEAKNESS Subjective Patient reports:. Pt reports having an increase of pain in L knee and a knot in R foot. Reports not being able to do things he enjoys (hunting, fishing) because it is too difficult for him to sit for prolonged periods and if he stands for prolonged periods his knee swells. Home program performing as directed: Yes. 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 Treatment Time in clinic started at 1000 am Time in clinic ended at 1045 am Total time in clinic is 45 minutes. Total timed code time is 43 minutes. Therapeutic exercise (86713): timed minutes 30, units 2 . * * See NMR NuStep x5 lv- 4, seat 29, arms 8 (SciFit) Sci fit recumbent bike, Lv-7 x5' Seat as far back as possible (X) //: - Mini squat x15 - B hip abd 2x10 on airex - Hip ext x15 B, - Step Up 4'' Step x15 each, 1 UE assist X - Mini Band Sidestep in // bars x 3 each dir, yellow band X Seated LAQ 2 x 10 3# HSC Black Band 2 x 10 Seated Hip Abd Black Band 2 x 10 Seated AAROM DF x10 with cues for eccentric lowering Supine: - TRA set 5 x5 in hooklying [X] - TRA marches 2x10 alt [X] Quad set x10 5'' hold B (X) SAQ x20 B [X] Hooklying h (more content not included)... Normal [facility] PT Progress Noteon 1 PT Progress Note Therapy Diagnosis Assessed Bone pain of knee (733.90) (M89.8X6) Infrapatellar bursitis of right knee (726.69) (M70.51) Left knee pain, unspecified chronicity (719.46) (M25.562) Loose body of left knee (717.6) (M23.42) Traumatic hematoma of left knee, subsequent encounter (V58.89,924.11) (S80.02XD) Plan Goals: Goals set and discussed today. 1. Independent HEP to allow for 50% reduction in max ADL C/C sx ( L-7/10; R-5/10)2-3wks 9/10 L; 7/10 R; within the last 5 days; 10/09/20; NOT MET 2. 0/10 night time sx to allow for uninterrupted sleep x1wk ( 01/15) 2-3wks still wakes nightly; 10/09/20; NOT MET 3. Survey score improvement from to 40/80 (LEFS) 4-6wks as of 10/09/20; NOT MET 4. ROM increase to allow for improved ADL car transfers, dressing lowers (from 120 to 130 L knee flexion) 4-6wks no change with ADL; 110 active L knee bend; 10/09/20; NOT MET 5. Strength increase to allow for improved ADL sit to stdg transfers, stairs (from 3+/4- R/L knee to gr4+ B) 4-6wks no change; gr4-/4+ R/L knee; 10/09/20; PARTIALLY MET 6. Strength increase to allow for improved ADL sit to stdg transfers, stairs (from 4/4- R hip to gr4+) 4-6wks no change with noted ADL; gr4/4- R hip today; 10/09/20; NOT MET Planned interventions include: aquatic therapy, cryotherapy, education/instruction, electrical stimulation, gait training, home program, hot pack, kinesiotaping, manual therapy, neuromuscular re-education, self care/home management and therapeutic exercises. Frequency and duration: 3 time(s) a week, for 6 weeks, for 17 visits. Potential to achieve rehab goals is fair: chronic syndrome the patient has completed POC/C-9 visits; he is to recheck with the Dr in mid October; he will continue with HEP until then. Assessment Patient identity confirmed today with name/. see goals; little change with ROM/strength or ADL levels; pain levels have also changed little. Adult Risk Screening There are no spiritual/cultural practices/values/needs that are important to know Initial Fall Risk Screening: KHOA has not fallen in the last 6 months. KHOA does not have a fear of falling. He does not need assistance with sitting, standing or walking. Does not need assistance walking in his home. He does not need assistance in an unfamiliar setting. The patient is using an assistive device. Fall Risk Screening: Patient is identified as a fall risk. Care Plan: Low Risk: Environmental for all patients and low risk patients: Offer assistance as needed or requested, keep environment free of obstacles, keep floor clean and dry, keep room lighting, wheelchair brakes on, bed/ stretcher locked and in low position if applicable, non-slip footwear if applicable, walker/cane available if needed, side rails up if applicable and pre-emptive toileting. Pain Scale: On a scale of 0 to 10, the patient rates the pain at 9. Please identify location of pain: L knee 03/21, R knee 6-01/18. Pain Quality: burning, pressure, tightness, throbbing and R numbness. The pain makes it hard for the patient to do these things: walking, exercise and self-care (bathing, dressing, eating). Insurance Insurance reviewed Visit number: 18 Authorization date range: C-9 until 10/09/20 Per Carolyn (helpdesk analyst) date extended to 10/09/20 [facility] 18v Evaluating therapist William Pastor PT. M25.561; M89.8X6; S80.02Xd; M70.51; M23.42; LATEX ALLERGY; RLE MYOTOME WEAKNESS Subjective Patient reports:. 8/10 at the l knee right now. 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 Treatment Time in clinic started at 10:20 am Time in clinic ended at 11:00 am Total time in clinic is 40 minutes. Total timed code time is 30 minutes. Therapeutic exercise (08680): timed minutes 30, units 2 . * * See NMR NuStep x5 lv- 4, seat 29, arms 8 (SciFit) Sci fit recumbent bike, Lv-7 x5' Seat as far back as possible (X) //: - Mini squat x15 - B hip abd 2x10 on airex - Hip ext x15 B, - Step Up 4'' Step x15 each, 1 UE assist X - Mini Band Sidestep in // bars x 3 each dir, yellow band X Seated LAQ 2 x 10 3# HSC Black Band 2 x 10 (manual today) Seated Hip Abd Black Band 2 x 10 Seated AAROM DF x10 with cues for eccentric lowering Supine: - TRA set 5 x5 in hooklying [X] - TRA marches 2x10 alt [X] Quad set x10 5'' hold B (X) SAQ x20 B [X] Hooklying hip adduction, ball squeeze, 2x10 [X] Hooklying hip abduction, Purple Band, 2x10 [X] SLR 2 x 10 L 0# , 2 x 5 R w/manual assist [X] . Neuromuscular Re-education (24120):. NOT TODAY GAIT BELT USED // bars: Unsupported Side step x3 ea direction FWD/BWD gait x4, unsupported Tandem Stance 30 each leg in front, 1 UE assist on airex Unsupported Fwd Gait x3 lengths Step overs on blue Airex x10 each LE BOSU Running Man 2 x 30?? each LE fwd (P, time) Hurdles 6? x 4 Hurdles (more content not included)... Normal [facility] Therapy Re-eval Noteon 10-09 Therapy Re-eval Note Therapy Diagnosis Assessed 1. Bone pain of knee (733.90) (M89.8X6) 2. Infrapatellar bursitis of right knee (726.69) (M70.51) 3. Left knee pain, unspecified chronicity (719.46) (M25.562) 4. Loose body of left knee (717.6) (M23.42) 5. Traumatic hematoma of left knee, subsequent encounter (V58.89,924.11) (S80.02XD) Plan Goals: Goals set and discussed today. 1. Independent HEP to allow for 50% reduction in max ADL C/C sx ( L-01/18; R-11/18)2-3wks 9 L; 01/18 R; within the last 5 days; 10/09/20; NOT MET 2. 0/10 night time sx to allow for uninterrupted sleep x1wk ( 01/15) 2-3wks still wakes nightly; 10/09/20; NOT MET 3. Survey score improvement from 3/80 to 40/80 (LEFS) 4-6wks 5/80 as of 10/09/20; NOT MET 4. ROM increase to allow for improved ADL car transfers, dressing lowers (from 120 to 130 L knee flexion) 4-6wks no change with ADL; 110 active L knee bend; 10/09/20; NOT MET 5. Strength increase to allow for improved ADL sit to stdg transfers, stairs (from 3+/4- R/L knee to gr4+ B) 4-6wks no change; gr4-/4+ R/L knee; 10/09/20; PARTIALLY MET 6. Strength increase to allow for improved ADL sit to stdg transfers, stairs (from 4/4- R hip to gr4+) 4-6wks no change with noted ADL; gr4/4- R hip today; 10/09/20; NOT MET Planned interventions include: aquatic therapy, cryotherapy, education/instruction, electrical stimulation, gait training, home program, hot pack, kinesiotaping, manual therapy, neuromuscular re-education, self care/home management and therapeutic exercises. Frequency and duration: 3 time(s) a week, for 6 weeks, for 17 visits. Potential to achieve rehab goals is fair: chronic syndrome the patient has completed POC/C-9 visits; he is to recheck with the Dr in mid October; he will continue with HEP until then. Assessment Patient identity confirmed today with name/. see goals; little change with ROM/strength or ADL levels; pain levels have also changed little. Adult Risk Screening There are no spiritual/cultural practices/values/needs that are important to know Initial Fall Risk Screening: KHOA has not fallen in the last 6 months. KHOA does not have a fear of falling. He does not need assistance with sitting, standing or walking. Does not need assistance walking in his home. He does not need assistance in an unfamiliar setting. The patient is using an assistive device. Fall Risk Screening: Patient is identified as a fall risk. Care Plan: Low Risk: Environmental for all patients and low risk patients: Offer assistance as needed or requested, keep environment free of obstacles, keep floor clean and dry, keep room lighting, wheelchair brakes on, bed/ stretcher locked and in low position if applicable, non-slip footwear if applicable, walker/cane available if needed, side rails up if applicable and pre-emptive toileting. Pain Scale: On a scale of 0 to 10, the patient rates the pain at 9. Please identify location of pain: L knee 9/10, R knee 6-7/10. Pain Quality: burning, pressure, tightness, throbbing and R numbness. The pain makes it hard for the patient to do these things: walking, exercise and self-care (bathing, dressing, eating). Insurance Insurance reviewed Visit number: 18 Authorization date range: - until 10/09/20 Salvatore Leon (helpdesk analyst) date extended to 10/09/20 [facility] 18v Evaluating therapist William Pastor PT. M25.561; M89.8X6; S80.02Xd; M70.51; M23.42; LATEX ALLERGY; RLE MYOTOME WEAKNESS Subjective Patient reports:. 8/10 at the l knee right now. 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 Treatment Time in clinic started at 10:20 am Time in clinic ended at 11:00 am Total time in clinic is 40 minutes. Total timed code time is 30 minutes. Therapeutic exercise (81231): timed minutes 30, units 2 . * * See NMR NuStep x5 lv- 4, seat 29, arms 8 (SciFit) Sci fit recumbent bike, Lv-7 x5' Seat as far back as possible (X) //: - Mini squat x15 - B hip abd 2x10 on airex - Hip ext x15 B, - Step Up 4'' Step x15 each, 1 UE assist X - Mini Band Sidestep in // bars x 3 each dir, yellow band X Seated LAQ 2 x 10 3# HSC Black Band 2 x 10 (manual today) Seated Hip Abd Black Band 2 x 10 Seated AAROM DF x10 with cues for eccentric lowering Supine: - TRA set 5 x5 in hooklying [X] - TRA marches 2x10 alt [X] Quad set x10 5'' hold B (X) SAQ x20 B [X] Hooklying hip adduction, ball squeeze, 2x10 [X] Hooklying hip abduction, Purple Band, 2x10 [X] SLR 2 x 10 L 0# , 2 x 5 R w/manual assist [X] . Neuromuscular Re-education (99652):. NOT TODAY GAIT BELT USED // bars: Unsupported Side step x3 ea direction FWD/BWD gait x4, unsupported Tandem Stance 30 each leg in front, 1 UE assist on airex Unsupported Fwd Gait x3 lengths Step overs on blue Airex x10 each LE BOSU Running Man 2 x 30?? each LE fwd (P, time) Hurdles (more content not included)... Normal [facility] PT Progress Noteon 1 PT Progress Note Therapy Diagnosis Assessed Bone pain of knee (733.90) (M89.8X6) Traumatic hematoma of left knee, subsequent encounter (V58.89,924.11) (S80.02XD) Infrapatellar bursitis of right knee (726.69) (M70.51) Loose body of left knee (717.6) (M23.42) Chronic pain of both knees (719.46,338.29) (M25.561,M25.562,G89.2 9) Plan Goals: Goals set and discussed today. 1. Independent HEP to allow for 50% reduction in max ADL C/C sx ( L-01/18; R-11/18)2-3wks 2. 0/10 night time sx to allow for uninterrupted sleep x1wk ( 01/15) 2-3wks 3. Survey score improvement from 3/80 to 40/80 (LEFS) 4-6wks 4. ROM increase to allow for improved ADL car transfers, dressing lowers (from 120 to 130 L knee flexion) 4-6wks 5. Strength increase to allow for improved ADL sit to stdg transfers, stairs (from 3=/4- R/L knee to gr4+ B) 4-6wks 6. Strength increase to allow for improved ADL (from 4/4- R hip to gr4+) 4-6wks Planned interventions include: aquatic therapy, cryotherapy, education/instruction, electrical stimulation, gait training, home program, hot pack, kinesiotaping, manual therapy, neuromuscular re-education, self care/home management and therapeutic exercises. Frequency and duration: 3 time(s) a week, for 6 weeks, for 17 visits. Potential to achieve rehab goals is fair: chronic syndrome Plan to see evaluating therapist next treatment for reassessment next treatment. -MA. Assessment Patient identified by name AND . Patient wore a mask during treatment d/t Covid-19 precautions. Treatment consisted of ther ex's today for improved LE strength. Patient able to tolerate ex's without complaints of increased pain. Has very little control to pull L ankle into DF and maintain. Patient with decreased L knee pain, but R knee pain the same post treatment. Interdisciplinary Team Communication: Physical Therapy . Response to treatment: decreased pain and improved knowledge and understanding of condition. Patient was able to complete today's treatment with some difficulty. Adult Risk Screening There are no spiritual/cultural practices/values/needs that are important to know Initial Fall Risk Screening: KHOA has not fallen in the last 6 months. KHOA does not have a fear of falling. He does not need assistance with sitting, standing or walking. Does not need assistance walking in his home. He does not need assistance in an unfamiliar setting. The patient is using an assistive device. Fall Risk Screening: Patient is identified as a fall risk. Care Plan: Low Risk: Environmental for all patients and low risk patients: Offer assistance as needed or requested, keep environment free of obstacles, keep floor clean and dry, keep room lighting, wheelchair brakes on, bed/ stretcher locked and in low position if applicable, non-slip footwear if applicable, walker/cane available if needed, side rails up if applicable and pre-emptive toileting. Pain Scale: On a scale of 0 to 10, the patient rates the pain at 9. Please identify location of pain: L knee 9/10, R knee 6-7/10. Pain Quality: burning, pressure, tightness, throbbing and R numbness. The pain makes it hard for the patient to do these things: walking, exercise and self-care (bathing, dressing, eating). Insurance Insurance reviewed Visit number: 17 Authorization date range: until 10/09/20 Per Carolyn (helpdesk analyst) date extended to 10/09/20 [facility] 18v Evaluating therapist William Pastor PT. M25.561; M89.8X6; S80.02Xd; M70.51; M23.42; LATEX ALLERGY; RLE MYOTOME WEAKNESS Subjective Patient reports:. States he is hurting all over today. R shoulder pain, B knee pain and back pain. States his R knee pain of 6-7/10, L knee pain 9/10 pretreatment. Pain in R knee the same post treatment. Pain in L knee decreased to 7-8/10. Home program performing as directed: Yes. 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 Treatment Time in clinic started at 10:00 am Time in clinic ended at 10:46 am Total time in clinic is 46 minutes. Total timed code time is 44 minutes. Therapeutic exercise (65009): timed minutes 44, units 3 . * * See NMR NuStep x5 lv- 4, seat 29, arms 8 (SciFit) Sci fit recumbent bike, Lv-7 x5' Seat as far back as possible (X) //: - Mini squat x15 - B hip abd 2x10 on airex - Hip ext x15 B, standing with L leg on green box to clear R foot. - Step Up 4'' Step x15 each, 1 UE assist - Mini Band Sidestep in // bars x 3 each dir, yellow band Seated LAQ 2 x 10 3# HSC Black Band 2 x 10 Seated Hip Abd Black Band 2 x 10 Seated AAROM DF x10 with cues for eccentric lowering Supine: - TRA set 5 x5 in hooklying [X] - TRA marches 2x10 alt [X] Quad set x10 5'' hold B (X) SAQ x20 B [X] Hooklying hip adduction, ball squeeze, 2x10 [X] Hooklying hip abduction, Purple Band, 2x10 [X] SLR 2 x 10 L 0# , 2 x 5 R w/manual assist [X] (more content not included)... Normal [facility] PT Progress Noteon 1 PT Progress Note Therapy Diagnosis Assessed Bone pain of knee (733.90) (M89.8X6) Traumatic hematoma of left knee, subsequent encounter (V58.89,924.11) (S80.02XD) Infrapatellar bursitis of right knee (726.69) (M70.51) Loose body of left knee (717.6) (M23.42) Chronic pain of both knees (719.46,338.29) (M25.561,M25.562,G89.2 9) Plan Goals: Goals set and discussed today. 1. Independent HEP to allow for 50% reduction in max ADL C/C sx ( L-710; R-510)2-3wks 2. 0/10 night time sx to allow for uninterrupted sleep x1wk ( 01/15) 2-3wks 3. Survey score improvement from 3/80 to 40/80 (LEFS) 4-6wks 4. ROM increase to allow for improved ADL car transfers, dressing lowers (from 120 to 130 L knee flexion) 4-6wks 5. Strength increase to allow for improved ADL sit to stdg transfers, stairs (from 3=/4- R/L knee to gr4+ B) 4-6wks 6. Strength increase to allow for improved ADL (from 4/4- R hip to gr4+) 4-6wks Planned interventions include: aquatic therapy, cryotherapy, education/instruction, electrical stimulation, gait training, home program, hot pack, kinesiotaping, manual therapy, neuromuscular re-education, self care/home management and therapeutic exercises. Frequency and duration: 3 time(s) a week, for 6 weeks, for 17 visits. Potential to achieve rehab goals is fair: chronic syndrome Will continue to progress with strengthening and balance exercises to be able to improve ease and safety with functional gait to be able to return back to normal work duties. Assessment Patient ID confirmed using Name and . Patient wearing mask throughout session today d/t COVID-19 precautions. Pt continues to make improvements with exercises, but still compensates with side-stepping and strengthening with RLE due to weakness. PUNEET Guevara participated in treatment this date with continuous supervision and all clinical decision making by Emeterio Palacio PTA, CHAD. Adult Risk Screening There are no spiritual/cultural practices/values/needs that are important to know Initial Fall Risk Screening: KHOA has not fallen in the last 6 months. KHOA does not have a fear of falling. He does not need assistance with sitting, standing or walking. Does not need assistance walking in his home. He does not need assistance in an unfamiliar setting. The patient is using an assistive device. Fall Risk Screening: Patient is identified as a fall risk. Care Plan: Low Risk: Environmental for all patients and low risk patients: Offer assistance as needed or requested, keep environment free of obstacles, keep floor clean and dry, keep room lighting, wheelchair brakes on, bed/ stretcher locked and in low position if applicable, non-slip footwear if applicable, walker/cane available if needed, side rails up if applicable and pre-emptive toileting. Pain Scale: On a scale of 0 to 10, the patient rates the pain at 8. Please identify location of pain: L knee 8/10, R knee 6/10. Pain Quality: burning, pressure, tightness, throbbing and R numbness. The pain makes it hard for the patient to do these things: walking, exercise and self-care (bathing, dressing, eating). Insurance Insurance reviewed Visit number: 16 Authorization date range: C-9 until 10/09/20 Per Carolyn (helpdesk analyst) date extended to 10/09/20 [facility] 18v Evaluating therapist William Pastor PT. M25.561; M89.8X6; S80.02Xd; M70.51; M23.42; LATEX ALLERGY; RLE MYOTOME WEAKNESS Subjective Patient reports:. Pt reports having pain in bilat knees this date with right knee hurting worse. Home program performing as directed: Yes. 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 Treatment Time in clinic started at 1000 am Time in clinic ended at 1047 am Total time in clinic is 47 minutes. Total timed code time is minutes. Therapeutic exercise (85836): timed minutes 26, units 2 . * * See NMR NuStep x5 lv- 4, seat 28, arms 8 (SciFit) Sci fit recumbent bike, Lv-7 x5' Seat as far back as possible //: - Mini squat x15 - B hip abd 2x10 on airex - Hip ext x15 B, standing with L leg on green box to clear R foot. - Step Up 4'' Step x15 each, 1 UE assist - Mini Band Sidestep in // bars x 3 each dir, yellow band Seated LAQ 2 x 10 3# HSC Black Band 2 x 10 Seated Hip Abd Black Band 2 x 10 [X] Seated AAROM DF x10 with cues for eccentric lowering (X) Supine: - TRA set 5 x5 in hooklying [X] - TRA marches 2x10 alt [X] Quad set x10 5'' hold B (X) SAQ x20 B [X] Hooklying hip adduction, ball squeeze, 2x10 [X] Hooklying hip abduction, Purple Band, 2x10 [X] SLR 2 x 10 L 0# , 2 x 5 R w/manual assist [X] . Neuromuscular Re-education (08450): timed minutes 15, units 1 . GAIT BELT USED // bars: Unsupported Side step x3 ea direction FWD/BWD gait x4, unsupported Tandem Stance 30 each leg in front, 1 UE assist on airex Unsupported Fwd Gait x3 lengt (more content not included)... Normal [facility] Progress Noteon 1 PT Progress Note Therapy Diagnosis Assessed Chronic pain of both knees (719.46,338.29) (M25.561,M25.562,G89.2 9) Loose body of left knee (717.6) (M23.42) Infrapatellar bursitis of right knee (726.69) (M70.51) Traumatic hematoma of left knee, subsequent encounter (V58.89,924.11) (S80.02XD) Bone pain of knee (733.90) (M89.8X6) Plan Goals: Goals set and discussed today. 1. Independent HEP to allow for 50% reduction in max ADL C/C sx ( L-7/10; R-5/10)2-3wks 2. 0/10 night time sx to allow for uninterrupted sleep x1wk ( 01/15) 2-3wks 3. Survey score improvement from 3/80 to 40/80 (LEFS) 4-6wks 4. ROM increase to allow for improved ADL car transfers, dressing lowers (from 120 to 130 L knee flexion) 4-6wks 5. Strength increase to allow for improved ADL sit to stdg transfers, stairs (from 3=/4- R/L knee to gr4+ B) 4-6wks 6. Strength increase to allow for improved ADL (from 4/4- R hip to gr4+) 4-6wks Planned interventions include: aquatic therapy, cryotherapy, education/instruction, electrical stimulation, gait training, home program, hot pack, kinesiotaping, manual therapy, neuromuscular re-education, self care/home management and therapeutic exercises. Frequency and duration: 3 time(s) a week, for 6 weeks, for 17 visits. Potential to achieve rehab goals is fair: chronic syndrome Plan to continue with progressions of strength and stability training to reduce pain and improve ease/safety with functional and community ambulation. Assessment Patient ID confirmed using Name and . Patient wearing mask throughout session today d/t COVID-19 precautions. Patient demos gradual objective improvments in strength and balance, although subjectively patient continues to present with pain and difficulty with functional ambulation/mobility. Adult Risk Screening There are no spiritual/cultural practices/values/needs that are important to know Initial Fall Risk Screening: KHOA has not fallen in the last 6 months. KHOA does not have a fear of falling. He does not need assistance with sitting, standing or walking. Does not need assistance walking in his home. He does not need assistance in an unfamiliar setting. The patient is using an assistive device. Fall Risk Screening: Patient is identified as a fall risk. Care Plan: Low Risk: Environmental for all patients and low risk patients: Offer assistance as needed or requested, keep environment free of obstacles, keep floor clean and dry, keep room lighting, wheelchair brakes on, bed/ stretcher locked and in low position if applicable, non-slip footwear if applicable, walker/cane available if needed, side rails up if applicable and pre-emptive toileting. Pain Scale: On a scale of 0 to 10, the patient rates the pain at 9. Please identify location of pain: Right knee pain 6/10, left knee pain 9/10. Pain Quality: burning, pressure, tightness and throbbing. The pain makes it hard for the patient to do these things: walking, exercise and self-care (bathing, dressing, eating). Insurance Insurance reviewed Visit number: 15 Authorization date range: C-9 until 10/09/20 Salvatore Leon (helpdesk analyst) date extended to 10/09/20 [facility] 18v Evaluating therapist William Pastor PT. M25.561; M89.8X6; S80.02Xd; M70.51; M23.42; LATEX ALLERGY; RLE MYOTOME WEAKNESS Subjective Patient reports:. Patient continues to present with L knee pain and RLE weakness, reports little to no change pain/weakness since IE. Home program performing as directed: Yes. 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 Treatment Time in clinic started at 1002 Time in clinic ended at 1045 Total time in clinic is 43 minutes. Total timed code time is 41 minutes. Therapeutic exercise (34490): timed minutes 26, units 2 . * * See NMR NuStep x5 lv- 4, seat 28, arms 8 (SciFit) Sci fit recumbent bike, Lv-7 x5' Seat as far back as possible //: - Mini squat x15 - B hip abd 2x10 on airex - Hip ext x15 B, standing with L leg on green box to clear R foot. - Step Up 4'' Step x15 each, 1 UE assist - Mini Band Sidestep in // bars x 3 each dir, yellow band Seated LAQ 2 x 10 3# HSC Black Band 2 x 10 Seated Hip Abd Black Band 2 x 10 [X] Seated AAROM DF x10 with cues for eccentric lowering Supine: - TRA set 5 x5 in hooklying [X] - TRA marches 2x10 alt [X] Quad set x10 5'' hold B (X) SAQ x20 B [X] Hooklying hip adduction, ball squeeze, 2x10 [X] Hooklying hip abduction, Purple Band, 2x10 [X] SLR 2 x 10 L 0# , 2 x 5 R w/manual assist [X] . Neuromuscular Re-education (55276): timed minutes 15, units 1 . GAIT BELT USED // bars: Unsupported Side step x3 ea direction BW gait x4, unsupported Tandem Stance 30 each leg in front, 1 UE assist on airex Unsupported Fwd Gait x3 lengths Step overs on blue Airex x10 each LE BOSU Running Man 2 x 20?? each LE fwd [X] Hurdl (more content not included)... Normal [facility] [employer] PT Progress Noteon 1 PT Progress Note Therapy Diagnosis Assessed Bone pain of knee (733.90) (M89.8X6) Traumatic hematoma of left knee, subsequent encounter (V58.89,924.11) (S80.02XD) Infrapatellar bursitis of right knee (726.69) (M70.51) Loose body of left knee (717.6) (M23.42) Chronic pain of both knees (719.46,338.29) (M25.561,M25.562,G89.2 9) Plan Goals: Goals set and discussed today. 1. Independent HEP to allow for 50% reduction in max ADL C/C sx ( L-7; R-510)2-3wks 2. 0/10 night time sx to allow for uninterrupted sleep x1wk ( 01/15) 2-3wks 3. Survey score improvement from 3/80 to 40/80 (LEFS) 4-6wks 4. ROM increase to allow for improved ADL car transfers, dressing lowers (from 120 to 130 L knee flexion) 4-6wks 5. Strength increase to allow for improved ADL sit to stdg transfers, stairs (from 3=/4- R/L knee to gr4+ B) 4-6wks 6. Strength increase to allow for improved ADL (from 4/4- R hip to gr4+) 4-6wks Planned interventions include: aquatic therapy, cryotherapy, education/instruction, electrical stimulation, gait training, home program, hot pack, kinesiotaping, manual therapy, neuromuscular re-education, self care/home management and therapeutic exercises. Frequency and duration: 3 time(s) a week, for 6 weeks, for 17 visits. Potential to achieve rehab goals is fair: chronic syndrome Plan to continue to progress NMR and ex's for improved gait endurance and quality of gait for ease of ADL's. -MA. Assessment Patient identified by name AND . Patient wore a mask during treatment d/t Covid-19 precautions. Treatment consisted of ther ex's and NMR activities. Gait belt used for balance, however patient did well and did not have any LOB's. Patient is challenged to advance R foot when side stepping to L with thera-loop around ankles. Patient has made good progress with R LE strengthening with functional activities (gait) and with tolerance to ex's. Interdisciplinary Team Communication: Physical Therapy . Response to treatment: no change in pain, improved strength, improved endurance and improved knowledge and understanding of condition. Patient was able to complete today's treatment with some difficulty. Adult Risk Screening There are no spiritual/cultural practices/values/needs that are important to know Initial Fall Risk Screening: KHOA has not fallen in the last 6 months. KHOA does not have a fear of falling. He does not need assistance with sitting, standing or walking. Does not need assistance walking in his home. He does not need assistance in an unfamiliar setting. The patient is using an assistive device. Fall Risk Screening: Patient is identified as a fall risk. Care Plan: Low Risk: Environmental for all patients and low risk patients: Offer assistance as needed or requested, keep environment free of obstacles, keep floor clean and dry, keep room lighting, wheelchair brakes on, bed/ stretcher locked and in low position if applicable, non-slip footwear if applicable, walker/cane available if needed, side rails up if applicable and pre-emptive toileting. Pain Scale: On a scale of 0 to 10, the patient rates the pain at 9. Please identify location of pain: Right knee pain 12/19, left knee pain /10. Pain Quality: burning, pressure, tightness and throbbing. The pain makes it hard for the patient to do these things: walking, exercise and self-care (bathing, dressing, eating). Insurance Insurance reviewed Visit number: 14 Authorization date range: C-9 until 10/09/20 Salvatore Leon (helpdesk analyst) date extended to 10/09/20 [facility] 18v Evaluating therapist William Pastor PT. M25.561; M89.8X6; S80.02Xd; M70.51; M23.42; LATEX ALLERGY; RLE MYOTOME WEAKNESS Subjective Patient reports:. Right leg is a little more numb today. Keeps catching his toes on the floor today. Right knee pain 6/10, left knee pain 9/10 States he has fluid on his left knee. Did see the doctor on Wednesday and was told it was swollen, but it was not drained that day. Patient reports that the PT he does for his knees, increases is back pain. B knee pain the same post treatment. Home program performing as directed: Yes. 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 Treatment Time in clinic started at 10:05 am Time in clinic ended at 10:52 am Total time in clinic is 47 minutes. Total timed code time is 44 minutes. Therapeutic exercise (02776): timed minutes 26, units 2 . * * See NMR NuStep x5 lv- 4, seat 28, arms 8 (SciFit) Sci fit recumbent bike, Lv-7 x5' Seat as far back as possible //: - Mini squat x15 - B hip abd 2x10 on airex - Hip ext x15 B, standing with L leg on green box to clear R foot. - Step Up 4'' Step x15 each, 1 UE assist - Mini Band Sidestep in // bars x 3 each dir, yellow band Seated LAQ 2 x 10 0# HSC Black Band 2 x 10 Seated Hip Abd Black Band 2 x 10 Supine: - TRA set 5 x5 in hookl (more content not included)... 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 This was administered in the typical fashion from the anterior approach. Unfortunately with failure to manage his symptoms with a corticosteroid injection I think it would be at least valid for him to return to [facility] for repeat evaluation if he is going to consider shoulder arthroplasty. With regards to the lower extremity she should continue his physical therapy unfortunately the right lower extremity only has a limited amount of improvement with the underlying nerve damage from his lumbar spine. Left knee degenerative changes of actually worsened with physical therapy which is not uncommon. We will continue with therapy and try to develop strength. His recovery will be exceedingly difficult if he proceeds with arthroplasty on the left knee due to the fact that the right lower extremity is quite weak and is somewhat limited on how much she can do with his right shoulder. I will see him in 1 month to evaluate how he is doing This note has been created with voice recognition software. Please be aware that there may be grammatical or contextual errors due to the use of the software. Chief Complaint PATIENT IS HERE FOR 2 MTH FU BART KNEE/ RIGHT SHOULDER. [facility] DOI 06/01/19. STATES THAT PHYSICAL THERAPY IS PAINFUL AND HURTS WORSE. HE DOESN'T FEEL LIKE HE CAN CONTROL HIS RIGHT HIP AND KNEE. THE LEFT KNEE IS PAINFUL. THE INJECTION IN THE SHOULDER DIDN'T HELP AT ALL AN ACHES ALL THE TIME AND RADIATED TO HIS FUNNY BONE. HE HAS 5 MORE DAYS OF PHYSICAL THERAPY. HE STATES THE PHYSICAL THERAPIST STATES HE IS GETTING STRONGER AN HE DOESN'T FEEL THAT WAY. History of Present Illness Patient is a 59-year-old male who returns my office for evaluation of multiple work-related injuries. We did administer an injection of the right shoulder previous visit unfortunately the injection did not seem to provide any relief whatsoever. He in turn is also complaining of some pain this radiating down his arm even down to the hand following the injection. Did not provide him any substantial improvement in his range of motion either. With regards physical therapy for his bilateral lower extremities he still is quite weak in the right lower extremities had no improvement in overall strength although he does have a little bit increased range of motion. His left knee though with the therapy is significantly exacerbated its underlying arthritis she has a grinding and catching sensation throughout the knee and range of motion. This is been worsening has been using anti-inflammatories and ice to help manage his symptoms. Review of Systems Constitutional: no fever, no chills, not feeling tired, no recent weight gain and no recent weight loss. ENT: no nosebleeds. Cardiovascular: no chest pain. Respiratory: no shortness of breath and no cough. Gastrointestinal: no abdominal pain, no nausea, no diarrhea and no vomiting. Musculoskeletal: no arthralgias and as noted in HPI. Integumentary: no rashes and no skin wound. Neurological: no headache. Psychiatric: no depression and no sleep disturbances. Endocrine: no muscle cramps. Hematologic/Lymphatic: no swollen glands and no tendency for easy bruising. All other systems have been reviewed and are negative for complaint. 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) Sprain of right shoulder, initial encounter (840.9) (S43.401A) Strain of right shoulder, initial encounter (840.9) (S46.911A) Tear of medial meniscus of right knee (836.0) (S83.241A) Traumatic hematoma of left knee, subsequent encounter (V58.89,924.11) (S80.02XD) Traumatic incomplete tear of right rotator cuff, subsequent encounter (V58.89,840.4) (S46.011D) Past Medical History Problems No pertinent past medical history (V49.89) (Z78.9) History of Sprain of right shoulder, subsequent encounter (V58.89,840.9) (S43.401D) Resolved Date: 28 Aug 2020 Surgical History Problems History of Back surgery Family History Mother Family history of Known health problems: none Social History Problems Daily caffeine consumpti (more content not included)... Normal [employer] PT Progress Noteon 1 PT Progress Note Therapy Diagnosis Assessed Bone pain of knee (733.90) (M89.8X6) Traumatic hematoma of left knee, subsequent encounter (V58.89,924.11) (S80.02XD) Infrapatellar bursitis of right knee (726.69) (M70.51) Loose body of left knee (717.6) (M23.42) Chronic pain of both knees (719.46,338.29) (M25.561,M25.562,G89.2 9) Plan Goals: Goals set and discussed today. 1. Independent HEP to allow for 50% reduction in max ADL C/C sx ( L-10; R-10)2-3wks 2. 0/10 night time sx to allow for uninterrupted sleep x1wk ( 01/15) 2-3wks 3. Survey score improvement from 3/80 to 40/80 (LEFS) 4-6wks 4. ROM increase to allow for improved ADL car transfers, dressing lowers (from 120 to 130 L knee flexion) 4-6wks 5. Strength increase to allow for improved ADL sit to stdg transfers, stairs (from 3=/4- R/L knee to gr4+ B) 4-6wks 6. Strength increase to allow for improved ADL (from 4/4- R hip to gr4+) 4-6wks Planned interventions include: aquatic therapy, cryotherapy, education/instruction, electrical stimulation, gait training, home program, hot pack, kinesiotaping, manual therapy, neuromuscular re-education, self care/home management and therapeutic exercises. Frequency and duration: 3 time(s) a week, for 6 weeks, for 17 visits. Potential to achieve rehab goals is fair: chronic syndrome Plan to continue with progressions of strength/balance training to reduce pain and improve ease/safety with functional/community ambulation. Assessment Patient ID confirmed using Name and . Patient wearing mask throughout session today d/t COVID-19 precautions. Patient continues to present with LLE pain and BLE weakness, although some minimal progress has been made with LE strength. Patient still has significant strength deficits demonstrating difficulty with step ups at 4'' step which is approximately 1/2 of a functional step in a residential home. Adult Risk Screening There are no spiritual/cultural practices/values/needs that are important to know Initial Fall Risk Screening: KHOA has not fallen in the last 6 months. KHOA does not have a fear of falling. He does not need assistance with sitting, standing or walking. Does not need assistance walking in his home. He does not need assistance in an unfamiliar setting. The patient is using an assistive device. Fall Risk Screening: Patient is identified as a fall risk. Care Plan: Low Risk: Environmental for all patients and low risk patients: Offer assistance as needed or requested, keep environment free of obstacles, keep floor clean and dry, keep room lighting, wheelchair brakes on, bed/ stretcher locked and in low position if applicable, non-slip footwear if applicable, walker/cane available if needed, side rails up if applicable and pre-emptive toileting. Pain Scale: On a scale of 0 to 10, the patient rates the pain at 9. Please identify location of pain: Right knee pain 7/10, left knee pain 9/10. Pain Quality: burning, pressure, tightness and throbbing. The pain makes it hard for the patient to do these things: walking, exercise and self-care (bathing, dressing, eating). Insurance Insurance reviewed Visit number: 13 Authorization date range: - until 10/09/20 Per Carolyn (helpdesk analyst) date extended to 10/09/20 [facility] 18v Evaluating therapist William Pastor PT. M25.561; M89.8X6; S80.02Xd; M70.51; M23.42; LATEX ALLERGY; RLE MYOTOME WEAKNESS Subjective Patient reports:. Patient c/o continued L knee pain and RLE weakness, difficulty with ambulation and requires FWW for most all ambulation. Pt has f/u with Dr. Valle today after PT. Home program performing as directed: Yes. 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 Treatment Time in clinic started at 1002 Time in clinic ended at 1045 Total time in clinic is 43 minutes. Total timed code time is 40 minutes. Therapeutic exercise (98066): timed minutes 25, units 2 . NuStep x5 lv- 4, seat 28, arms 8 (SciFit) Sci fit recument bike, Lv-7 x5' Seat as far back as possible (X) //: - Mini squat x15 [P] - B hip abd 2x10 on airex - Hip ext x15 B, standing with L leg on green box to clear R foot. - Step Up 4'' Step x15 each, 1 UE assist - Mini Band Sidestep in // bars x 3 each dir Seated LAQ 2 x 10 0# HSC Black Band 2 x 10 Seated Hip Abd Black Band 2 x 10 Supine: - TRA set 5 x5 in hooklying [X] - TRA marches 2x10 alt [X] Quad set x10 5'' hold B (X) SAQ x20 B [X] Hooklying hip adduction, ball squeeze, 2x10 [X] Hooklying hip abduction, Purple Band, 2x10 [X] SLR 2 x 10 L 0# , 2 x 5 R w/manual assist [X] . Neuromuscular Re-education (68646): timed minutes 18, units 1 . GAIT BELT USED // bars: Unsupported Side step x3 ea direction BW gait x4, unsupported Tandem Stance 30 each leg in front, 1 UE assist on airex (P, Unsupported Fwd Gait x3 lengths Step overs on bl (more content not included)... Normal [facility] PT Progress Noteon 1 PT Progress Note Therapy Diagnosis Assessed Chronic pain of both knees (719.46,338.29) (M25.561,M25.562,G89.2 9) Loose body of left knee (717.6) (M23.42) Infrapatellar bursitis of right knee (726.69) (M70.51) Traumatic hematoma of left knee, subsequent encounter (V58.89,924.11) (S80.02XD) Bone pain of knee (733.90) (M89.8X6) Plan Goals: Goals set and discussed today. 1. Independent HEP to allow for 50% reduction in max ADL C/C sx ( L-710; R-510)2-3wks 2. 0/10 night time sx to allow for uninterrupted sleep x1wk ( 01/15) 2-3wks 3. Survey score improvement from 3/80 to 40/80 (LEFS) 4-6wks 4. ROM increase to allow for improved ADL car transfers, dressing lowers (from 120 to 130 L knee flexion) 4-6wks 5. Strength increase to allow for improved ADL sit to stdg transfers, stairs (from 3=/4- R/L knee to gr4+ B) 4-6wks 6. Strength increase to allow for improved ADL (from 4/4- R hip to gr4+) 4-6wks Planned interventions include: aquatic therapy, cryotherapy, education/instruction, electrical stimulation, gait training, home program, hot pack, kinesiotaping, manual therapy, neuromuscular re-education, self care/home management and therapeutic exercises. Frequency and duration: 3 time(s) a week, for 6 weeks, for 17 visits. Potential to achieve rehab goals is fair: chronic syndrome Plan to continue with progressions of strengthening and balance/stability training as tolerated to improve ease/tolerance with functional/community ambulation. Assessment Patient ID confirmed using Name and . Patient wearing mask throughout session today d/t COVID-19 precautions. Patient demos improving strength and ability to maintain weight acceptance with decreasing UE support. Patient does however continue to demo strength deficits and pain with step ups this date. Adult Risk Screening There are no spiritual/cultural practices/values/needs that are important to know Initial Fall Risk Screening: KHOA has not fallen in the last 6 months. KHOA does not have a fear of falling. He does not need assistance with sitting, standing or walking. Does not need assistance walking in his home. He does not need assistance in an unfamiliar setting. The patient is using an assistive device. Fall Risk Screening: Patient is identified as a fall risk. Care Plan: Low Risk: Environmental for all patients and low risk patients: Offer assistance as needed or requested, keep environment free of obstacles, keep floor clean and dry, keep room lighting, wheelchair brakes on, bed/ stretcher locked and in low position if applicable, non-slip footwear if applicable, walker/cane available if needed, side rails up if applicable and pre-emptive toileting. Pain Scale: On a scale of 0 to 10, the patient rates the pain at 9. Please identify location of pain: Right knee pain 7/10, left knee pain 9/10. Pain Quality: burning, pressure, tightness and throbbing. The pain makes it hard for the patient to do these things: walking, exercise and self-care (bathing, dressing, eating). Insurance Insurance reviewed Visit number: 12 Authorization date range: C-9 until 10/09/20 Salvatore Leon (helpdesk analyst) date extended to 10/09/20 [facility] 18v Evaluating therapist William Luecht PT. M25.561; M89.8X6; S80.02Xd; M70.51; M23.42; LATEX ALLERGY; RLE MYOTOME WEAKNESS Subjective Patient reports:. pt c/o continued B knee pain, patient reports he might be getting stronger, but its hard to tell because pain is increased.. Home program performing as directed: Yes. 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 Treatment Time in clinic started at 1002 Time in clinic ended at 1047 Total time in clinic is 45 minutes. Total timed code time is 43 minutes. Therapeutic exercise (09165): timed minutes 25, units 2 . NuStep x5 lv- 4, seat 28, arms 8 (SciFit) Sci fit recument bike, Lv-7 x5' Seat as far back as possible (X) //: - Mini squat x15 [P] - B hip abd 2x10 on airex - Hip ext x15 B, standing with L leg on green box to clear R foot. - Step Up 4'' Step x15 each, 1 UE assist - Mini Band Sidestep in // bars x 3 each dir Seated LAQ 2 x 10 0# HSC Black Band 2 x 10 Seated Hip Abd Black Band 2 x 10 Supine: - TRA set 5 x5 in hooklying [X] - TRA marches 2x10 alt [X] Quad set x10 5'' hold B (X) SAQ x20 B [X] Hooklying hip adduction, ball squeeze, 2x10 [X] Hooklying hip abduction, Purple Band, 2x10 [X] SLR 2 x 10 L 0# , 2 x 5 R w/manual assist [X] . Neuromuscular Re-education (73409): timed minutes 18, units 1 . GAIT BELT USED // bars: Unsupported Side step x3 ea direction BW gait x4, unsupported Tandem Stance 30 each leg in front, 1 UE assist Unsupported Fwd Gait x3 lengths Step overs on blue Airex x10 each LE [X] BOSU Running Man 2 x 20?? each LE fwd [X] Hurdles 6? x 4 Hurdles in // bars -R Leading x 2 -L Leadi (more content not included)... Normal [facility] PT Progress Noteon 1 PT Progress Note Therapy Diagnosis Assessed Bone pain of knee (733.90) (M89.8X6) Traumatic hematoma of left knee, subsequent encounter (V58.89,924.11) (S80.02XD) Infrapatellar bursitis of right knee (726.69) (M70.51) Loose body of left knee (717.6) (M23.42) Chronic pain of both knees (719.46,338.29) (M25.561,M25.562,G89.2 9) Plan Goals: Goals set and discussed today. 1. Independent HEP to allow for 50% reduction in max ADL C/C sx ( L-7/10; R-5/10)2-3wks 2. 0/10 night time sx to allow for uninterrupted sleep x1wk ( 01/15) 2-3wks 3. Survey score improvement from 3/80 to 40/80 (LEFS) 4-6wks 4. ROM increase to allow for improved ADL car transfers, dressing lowers (from 120 to 130 L knee flexion) 4-6wks 5. Strength increase to allow for improved ADL sit to stdg transfers, stairs (from 3=/4- R/L knee to gr4+ B) 4-6wks 6. Strength increase to allow for improved ADL (from 4/4- R hip to gr4+) 4-6wks Planned interventions include: aquatic therapy, cryotherapy, education/instruction, electrical stimulation, gait training, home program, hot pack, kinesiotaping, manual therapy, neuromuscular re-education, self care/home management and therapeutic exercises. Frequency and duration: 3 time(s) a week, for 6 weeks, for 17 visits. Potential to achieve rehab goals is fair: chronic syndrome Plan to continue to challenge patient with NMR activities and progress LE ex's as able for improved ease of gait and car transfers. -MA. Assessment Patient identified by name AND . Patient wore a mask during treatment d/t Covid-19 precautions. Treatment consisted of NMR activities and ther ex's for improved balance and LE strengthening. Patient able to complete step ups on 4 step with 1 UE assist today. Gait belt used for safety, but no LOB today. Patient uses UE assist due to fear of knees giving out. Patient's right knee pain increased and left knee pain the same post treatment. Interdisciplinary Team Communication: Physical Therapy . Response to treatment: increased pain and improved balance. Patient was able to complete today's treatment with some difficulty. Adult Risk Screening There are no spiritual/cultural practices/values/needs that are important to know Initial Fall Risk Screening: KHOA has not fallen in the last 6 months. KHOA does not have a fear of falling. He does not need assistance with sitting, standing or walking. Does not need assistance walking in his home. He does not need assistance in an unfamiliar setting. The patient is using an assistive device. Fall Risk Screening: Patient is identified as a fall risk. Care Plan: Low Risk: Environmental for all patients and low risk patients: Offer assistance as needed or requested, keep environment free of obstacles, keep floor clean and dry, keep room lighting, wheelchair brakes on, bed/ stretcher locked and in low position if applicable, non-slip footwear if applicable, walker/cane available if needed, side rails up if applicable and pre-emptive toileting. Pain Scale: On a scale of 0 to 10, the patient rates the pain at 9. Please identify location of pain: Right knee pain 6/10, left knee pain 9/10. Pain Quality: burning, pressure, tightness and throbbing. The pain makes it hard for the patient to do these things: walking, exercise and self-care (bathing, dressing, eating). Insurance Insurance reviewed Visit number: 11 Authorization date range: -9 until 10/09/20 Salvatore Leon (helpdesk analyst) date extended to 10/09/20 [facility] 18v Evaluating therapist William Pastor PT. M25.561; M89.8X6; S80.02Xd; M70.51; M23.42; LATEX ALLERGY; RLE MYOTOME WEAKNESS Subjective Patient reports:. Reports his right leg is very numb today. Right knee pain 6/10, left knee pain 9/10 pretreatment. Back pain 7-8/10 today pretreatment. Right knee pain increased to 8/10 and left knee pain remained the same post treatment. Home program performing as directed: Partially. 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 Treatment Time in clinic started at 10:00 am Time in clinic ended at 10:48 am Total time in clinic is minutes. Therapeutic exercise (72697): timed minutes 25, units 2 . NuStep x5 lv- 4, seat 28, arms 8 (SciFit) Sci fit recument bike, Lv-7 x5' Seat as far back as possible (X) //: - Mini squat x10 - B hip abd 2x10 - Hip ext x15 B, standing with L leg on green box to clear R foot. - Step Up 4'' Step x15 each, 1 UE assist Seated LAQ 2 x 10 0# HSC Black Band 2 x 10 Seated Hip Abd Black Band 2 x 10 Supine: - TRA set 5 x5 in hooklying [X] - TRA marches 2x10 alt [X] Quad set x10 5'' hold B (X) SAQ x20 B [X] Hooklying hip adduction, ball squeeze, 2x10 [X] Hooklying hip abduction, Purple Band, 2x10 [X] SLR 2 x 10 L 0# , 2 x 5 R w/manual assist [X] . Neuromuscular Re-education (69908): timed minutes 20, units 1 . GAIT BELT USE (more content not included)... Normal [facility] PT Progress Noteon 1 PT Progress Note Therapy Diagnosis Assessed Bone pain of knee (733.90) (M89.8X6) Traumatic hematoma of left knee, subsequent encounter (V58.89,924.11) (S80.02XD) Infrapatellar bursitis of right knee (726.69) (M70.51) Loose body of left knee (717.6) (M23.42) Chronic pain of both knees (719.46,338.29) (M25.561,M25.562,G89.2 9) Plan Goals: Goals set and discussed today. 1. Independent HEP to allow for 50% reduction in max ADL C/C sx ( L-7/10; R-5/10)2-3wks 2. 0/10 night time sx to allow for uninterrupted sleep x1wk ( 01/15) 2-3wks 3. Survey score improvement from 3/80 to 40/80 (LEFS) 4-6wks 4. ROM increase to allow for improved ADL car transfers, dressing lowers (from 120 to 130 L knee flexion) 4-6wks 5. Strength increase to allow for improved ADL sit to stdg transfers, stairs (from 3=/4- R/L knee to gr4+ B) 4-6wks 6. Strength increase to allow for improved ADL (from 4/4- R hip to gr4+) 4-6wks Planned interventions include: aquatic therapy, cryotherapy, education/instruction, electrical stimulation, gait training, home program, hot pack, kinesiotaping, manual therapy, neuromuscular re-education, self care/home management and therapeutic exercises. Frequency and duration: 3 time(s) a week, for 6 weeks, for 17 visits. Potential to achieve rehab goals is fair: chronic syndrome Plan to continue with progressions of strength/stability training to improve ease/tolerance with functional/community ambulation. Assessment Patient ID confirmed using Name and . Patient wearing mask throughout session today d/t COVID-19 precautions. Patient with fair tolerance to treatment, does continue to present with weakness and demos muscle fatigue with increased reps. Adult Risk Screening There are no spiritual/cultural practices/values/needs that are important to know Initial Fall Risk Screening: KHOA has not fallen in the last 6 months. KHOA does not have a fear of falling. He does not need assistance with sitting, standing or walking. Does not need assistance walking in his home. He does not need assistance in an unfamiliar setting. The patient is using an assistive device. Fall Risk Screening: Patient is identified as a fall risk. Care Plan: Low Risk: Environmental for all patients and low risk patients: Offer assistance as needed or requested, keep environment free of obstacles, keep floor clean and dry, keep room lighting, wheelchair brakes on, bed/ stretcher locked and in low position if applicable, non-slip footwear if applicable, walker/cane available if needed, side rails up if applicable and pre-emptive toileting. Pain Scale: On a scale of 0 to 10, the patient rates the pain at 8. Please identify location of pain: left knee pain is 8/10, right knee pain 7/10. Pain Quality: burning, pressure, tightness and throbbing. The pain makes it hard for the patient to do these things: walking, exercise and self-care (bathing, dressing, eating). Insurance Insurance reviewed Visit number: 10 Authorization date range: C-9 until 10/09/20 Per Carolyn (helpdesk analyst) date extended to 10/09/20 [facility] 18v Evaluating therapist William Pastor PT. M25.561; M89.8X6; S80.02Xd; M70.51; M23.42; LATEX ALLERGY; RLE MYOTOME WEAKNESS Subjective Patient reports:. Continued L knee pain rated 7/10 upon arrival. Home program performing as directed: Yes. 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 Treatment Time in clinic started at 1002 Time in clinic ended at 1045 Total time in clinic is 43 minutes. Total timed code time is 40 minutes. Therapeutic exercise (20379): timed minutes 25, units 2 . NuStep x5 lv- 4, seat 28, arms 8 (SciFit) (X, in use) Sci fit recument bike, Lv-7 x5' Seat as far back as possible //: - Mini squat x10 - B hip abd 2x10 - Hip ext x15 B, standing with L leg on green box to clear R foot. - Step Up 4'' Step x15 each, cuing to decrease UE use/support Seated LAQ 2 x 10 0# HSC Black Band 2 x 10 Seated Hip Abd Black Band 2 x 10 Supine: - TRA set 5 x5 in hooklying [X] - TRA marches 2x10 alt [X Quad set x10 5'' hold B (X) SAQ x20 B [X] Hooklying hip adduction, ball squeeze, 2x10 [X] Hooklying hip abduction, Purple Band, 2x10 [X] SLR 2 x 10 L 0# , 2 x 5 R w/manual assist [X] . Neuromuscular Re-education (41616): timed minutes 15, units 1 . GAIT BELT USED // bars: Side step x3 ea direction, B UE assist yellow miniband BW gait x4, 1 UE assist Tandem Stance 30 each leg in front, 1 UE assist Step overs on blue Airex x10 each LE BOSU Running Man 2 x 20?? each LE fwd Hurdles 6? x 4 Hurdles in // bars -R Leading x 2 -L Leading x 2 -Reciprocal x4 -Sidestep x2 each dit Balance on blue Airex 30 x2, no UE assist [X] Disassociated stance w/ one leg on floor and one leg on green box 30 ea, no UE assist [X] . 'Scores and Scales' Signatur (more content not included)... Normal [facility] PT Progress Noteon PT Progress Note Therapy Diagnosis Assessed Chronic pain of both knees (719.46,338.29) (M25.561,M25.562,G89.2 9) Loose body of left knee (717.6) (M23.42) Infrapatellar bursitis of right knee (726.69) (M70.51) Traumatic hematoma of left knee, subsequent encounter (V58.89,924.11) (S80.02XD) Bone pain of knee (733.90) (M89.8X6) Plan Goals: Goals set and discussed today. 1. Independent HEP to allow for 50% reduction in max ADL C/C sx ( L-7/10; R-5/10)2-3wks 2. 0/10 night time sx to allow for uninterrupted sleep x1wk ( 01/15) 2-3wks 3. Survey score improvement from 3/80 to 40/80 (LEFS) 4-6wks 4. ROM increase to allow for improved ADL car transfers, dressing lowers (from 120 to 130 L knee flexion) 4-6wks 5. Strength increase to allow for improved ADL sit to stdg transfers, stairs (from 3=/4- R/L knee to gr4+ B) 4-6wks 6. Strength increase to allow for improved ADL (from 4/4- R hip to gr4+) 4-6wks Planned interventions include: aquatic therapy, cryotherapy, education/instruction, electrical stimulation, gait training, home program, hot pack, kinesiotaping, manual therapy, neuromuscular re-education, self care/home management and therapeutic exercises. Frequency and duration: 3 time(s) a week, for 6 weeks, for 17 visits. Potential to achieve rehab goals is fair: chronic syndrome Plan to continue with progressions of strengthening and balance/stability training to reduce pain and improve ease/tolerance with functional/community ambulation. Assessment Patient ID confirmed using Name and . Patient wearing mask throughout session today d/t COVID-19 precautions. Patient demos improving ease/tolerance with strengthening exercises, does continue to present with LE weakness and pain in L knee. Balance/stability improving but does continue to have difficulty with tandem/NBOS. Adult Risk Screening There are no spiritual/cultural practices/values/needs that are important to know Initial Fall Risk Screening: KHOA has not fallen in the last 6 months. KHOA does not have a fear of falling. He does not need assistance with sitting, standing or walking. Does not need assistance walking in his home. He does not need assistance in an unfamiliar setting. The patient is using an assistive device. Fall Risk Screening: Patient is identified as a fall risk. Care Plan: Low Risk: Environmental for all patients and low risk patients: Offer assistance as needed or requested, keep environment free of obstacles, keep floor clean and dry, keep room lighting, wheelchair brakes on, bed/ stretcher locked and in low position if applicable, non-slip footwear if applicable, walker/cane available if needed, side rails up if applicable and pre-emptive toileting. Pain Scale: On a scale of 0 to 10, the patient rates the pain at 8. Please identify location of pain: left knee pain is 8/10, right knee pain 7/10. Pain Quality: burning, pressure, tightness and throbbing. The pain makes it hard for the patient to do these things: walking, exercise and self-care (bathing, dressing, eating). Insurance Insurance reviewed Visit number: 9 Authorization date range: until 10/09/20 Savlatore Leon (helpdesk analyst) date extended to 10/09/20 [facility] 18v Evaluating therapist William Pastor PT. M25.561; M89.8X6; S80.02Xd; M70.51; M23.42; LATEX ALLERGY; RLE MYOTOME WEAKNESS Subjective Precautions: Fall Risk: low Pertinent medical HX includes: R RTC tear/arthritis; L shldr pain; R shldr cortisone injection last week; lumbar compression FX with R L5 nerve damage last yr; LATEX ALLERGY. Treatment Time in clinic started at 1001 Time in clinic ended at 1043 Total time in clinic is 42 minutes. Total timed code time is 40 minutes. Therapeutic exercise (88389): timed minutes 25, units 2 . NuStep x5 lv- 4, seat 28, arms 8 (SciFit) (X, in use) Sci fit recument bike, Lv-7 x5' Seat as far back as possible //: - Mini squat x10 - B hip abd 2x10 - Hip ext x10 B, standing with L leg on green box to clear R foot. Supine: - TRA set 5 x5 in hooklying [X] - TRA marches 2x10 alt Quad set x10 5'' hold B (X) SAQ x20 B Hooklying hip adduction, ball squeeze, 2x10 Hooklying hip abduction, Purple Band, 2x10 (P, resistance) SLR 2 x 10 L 0# , 2 x 5 R w/manual assist Fwd Step Ups 4'' Step 2 x 10 each. Neuromuscular Re-education (60833): timed minutes 15, units 1 . GAIT BELT USED // bars: Tandem Stance 30 each leg in front, 1 UE assist Disassociated stance w/ one leg on floor and one leg on green box 30 ea, no UE assist [X] Side step x3 ea direction, B UE assist yellow miniband BW gait x4, 1 UE assist Balance on blue Airex 30 x2, no UE assist Step overs on blue Airex x10 each LE. 'Scores and Scales' Signatures Electronically signed by : Emeterio Palacio PTA; Sep 18 2020 6:11PM EST (Author) Electronically signed by : Christopher Pastor PT; Sep 19 2020 2:08PM EST Normal [facility] PT Progress Noteon 1 PT Progress Note Therapy Diagnosis Assessed Bone pain of knee (733.90) (M89.8X6) Traumatic hematoma of left knee, subsequent encounter (V58.89,924.11) (S80.02XD) Infrapatellar bursitis of right knee (726.69) (M70.51) Loose body of left knee (717.6) (M23.42) Chronic pain of both knees (719.46,338.29) (M25.561,M25.562,G89.2 9) Plan Goals: Goals set and discussed today. 1. Independent HEP to allow for 50% reduction in max ADL C/C sx ( L-710; R-11/18)2-3wks 2. 0/10 night time sx to allow for uninterrupted sleep x1wk ( 01/15) 2-3wks 3. Survey score improvement from 3/80 to 40/80 (LEFS) 4-6wks 4. ROM increase to allow for improved ADL car transfers, dressing lowers (from 120 to 130 L knee flexion) 4-6wks 5. Strength increase to allow for improved ADL sit to stdg transfers, stairs (from 3=/4- R/L knee to gr4+ B) 4-6wks 6. Strength increase to allow for improved ADL (from 4/4- R hip to gr4+) 4-6wks Planned interventions include: aquatic therapy, cryotherapy, education/instruction, electrical stimulation, gait training, home program, hot pack, kinesiotaping, manual therapy, neuromuscular re-education, self care/home management and therapeutic exercises. Frequency and duration: 3 time(s) a week, for 6 weeks, for 17 visits. Potential to achieve rehab goals is fair: chronic syndrome Plan to continue with balance and strengthening ex's for improved ease of ADL's and gait. -MA. Assessment Patient identified by name AND . Patient wore a mask during treatment d/t Covid-19 precautions. Treatment consisted of NMR activities and ther ex's for improved balance and B LE strengthening. Patient able to complete NMR activities with decreased UE assistance on // bars. Patient with decreased complaints of back pain today compared to the last time this therapist treated him. Interdisciplinary Team Communication: Physical Therapy . Response to treatment: improved endurance and improved balance. Patient was able to complete today's treatment with some difficulty. Adult Risk Screening There are no spiritual/cultural practices/values/needs that are important to know Initial Fall Risk Screening: KHOA has not fallen in the last 6 months. KHOA does not have a fear of falling. He does not need assistance with sitting, standing or walking. Does not need assistance walking in his home. He does not need assistance in an unfamiliar setting. The patient is using an assistive device. Fall Risk Screening: Patient is identified as a fall risk. Care Plan: Low Risk: Environmental for all patients and low risk patients: Offer assistance as needed or requested, keep environment free of obstacles, keep floor clean and dry, keep room lighting, wheelchair brakes on, bed/ stretcher locked and in low position if applicable, non-slip footwear if applicable, walker/cane available if needed, side rails up if applicable and pre-emptive toileting. Pain Scale: On a scale of 0 to 10, the patient rates the pain at 8. Please identify location of pain: left knee pain is 8/10, right knee pain 7/10. Pain Quality: burning, pressure, tightness and throbbing. The pain makes it hard for the patient to do these things: walking, exercise and self-care (bathing, dressing, eating). Insurance Insurance reviewed Visit number: 8 Authorization date range: C-9 until 10/09/20 Per Carolyn (helpdesk analyst) date extended to 10/09/20 [facility] 18v Evaluating therapist William Pastor PT. M25.561; M89.8X6; S80.02Xd; M70.51; M23.42; LATEX ALLERGY; RLE MYOTOME WEAKNESS Subjective Patient reports:. left knee pain is 8/10, right knee pain 7/10 pretreatment. Reports that it seems like it is easier to get out of the chair. States his pain is not getting better and the ex's are aggravating his knees. States it is hard to determine if he is stronger, because he has a lot of back and B knee pain. Home program performing as directed: Partially. 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 Treatment Time in clinic started at 10:05 am Time in clinic ended at 10:48 am Total time in clinic is 43 minutes. Total timed code time is 40 minutes. Therapeutic exercise (98944): timed minutes 25, units 2 . NuStep x5 lv- 4, seat 28, arms 8 (SciFit) (X, in use) Sci fit recument bike, Lv-7 x5' Seat as far back as possible (N) //: - Mini squat x10 - B hip abd 2x10 (N) - Hip ext x10 B, standing with L leg on green box to clear R foot. Supine: - TRA set 5 x5 in hooklying [X, no time] - TRA marches 2x10 alt [X, no time ] Quad set x10 5'' hold B (X, no time) SAQ x20 B (X, no time) Hooklying hip adduction, ball squeeze, 2x10 Hooklying hip abduction, green thera loop band, 2x10 (P, resistance) SLR B x 10 w/manual assist (N). Neuromuscular Re-education (12468): timed minutes 15, units 1 . GAIT BELT USED // bars: Tandem Stance 30 each leg in front, (more content not included)... Normal [facility] Progress Noteon 1 PT Progress Note Therapy Diagnosis Assessed Bone pain of knee (733.90) (M89.8X6) Traumatic hematoma of left knee, subsequent encounter (V58.89,924.11) (S80.02XD) Loose body of left knee (717.6) (M23.42) Chronic pain of both knees (719.46,338.29) (M25.561,M25.562,G89.2 9) Infrapatellar bursitis of right knee (726.69) (M70.51) Plan Goals: Goals set and discussed today. 1. Independent HEP to allow for 50% reduction in max ADL C/C sx ( L-7/10; R-5/10)2-3wks 2. 0/10 night time sx to allow for uninterrupted sleep x1wk ( 01/15) 2-3wks 3. Survey score improvement from 3/80 to 40/80 (LEFS) 4-6wks 4. ROM increase to allow for improved ADL car transfers, dressing lowers (from 120 to 130 L knee flexion) 4-6wks 5. Strength increase to allow for improved ADL sit to stdg transfers, stairs (from 3=/4- R/L knee to gr4+ B) 4-6wks 6. Strength increase to allow for improved ADL (from 4/4- R hip to gr4+) 4-6wks Planned interventions include: aquatic therapy, cryotherapy, education/instruction, electrical stimulation, gait training, home program, hot pack, kinesiotaping, manual therapy, neuromuscular re-education, self care/home management and therapeutic exercises. Frequency and duration: 3 time(s) a week, for 6 weeks, for 17 visits. Potential to achieve rehab goals is fair: chronic syndrome Plan to continue with progressions of LE strengthening and balance/stability training as tolerated to reduce pain and improve ease/tolerance with functional/community ambulation. Assessment Patient ID confirmed using Name and . Patient wearing mask throughout session today d/t COVID-19 precautions. Patient demos improving balance/stability but does continue to present with deficits. Strength improving gradually but continues to be limited by pain/discomfort. Adult Risk Screening There are no spiritual/cultural practices/values/needs that are important to know Initial Fall Risk Screening: KHOA has not fallen in the last 6 months. KHOA does not have a fear of falling. He does not need assistance with sitting, standing or walking. Does not need assistance walking in his home. He does not need assistance in an unfamiliar setting. The patient is using an assistive device. Fall Risk Screening: Patient is identified as a fall risk. Care Plan: Low Risk: Environmental for all patients and low risk patients: Offer assistance as needed or requested, keep environment free of obstacles, keep floor clean and dry, keep room lighting, wheelchair brakes on, bed/ stretcher locked and in low position if applicable, non-slip footwear if applicable, walker/cane available if needed, side rails up if applicable and pre-emptive toileting. Pain Scale: On a scale of 0 to 10, the patient rates the pain at 8. Please identify location of pain: left knee pain is 8/10, right knee pain 7/10. Pain Quality: burning, pressure, tightness and throbbing. The pain makes it hard for the patient to do these things: walking, exercise and self-care (bathing, dressing, eating). Insurance Insurance reviewed Visit number: 7 Authorization date range: C-9 until 09/19/20 [facility] 18v Evaluating therapist William Pastor PT. M25.561; M89.8X6; S80.02Xd; M70.51; M23.42; LATEX ALLERGY; RLE MYOTOME WEAKNESS Subjective Patient reports:. Increased L knee pain, feels that he did too many mini squats and caused increased pain. Home program performing as directed: Yes. 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 Treatment Time in clinic started at 1004 Time in clinic ended at 1050 Total time in clinic is 46 minutes. Total timed code time is 44 minutes. Therapeutic exercise (35086): timed minutes 32, units 2 . NuStep x5 lv- 4, seat 28, arms 8 (SciFit) //: - Mini squat x10 - Hip ext x10 B, standing with L leg on green box to clear R foot. Supine: - TRA set 5 x5 in hooklying [X] - TRA marches 2x10 alt [X] Quad set x10 5'' hold B SAQ x20 B Hooklying hip adduction, ball squeeze, 2x10 Hooklying hip abduction, purple band, 2x10 SLR B (A). Neuromuscular Re-education (37280): timed minutes 12, units 1 . GAIT BELT USED // bars: Tandem Stance 30 each, 1 UE assist Disassociated stance w/ one leg on floor and one leg on green box 30 ea, 1 UE assist Side step x2 ea direction, 1 UE assist yellow miniband BW gait x4, B UE assist Balance on blue Airex 30 x2, no UE assist Step overs on blue Airex x10 each LE. 'Scores and Scales' Signatures Electronically signed by : Emeterio Palacio PTA; Sep 13 2020 4:50PM EST (Author) Electronically signed by : Christopher Pastor, PT; Sep 13 2020 5:40PM EST Normal [facility] Progress Noteon PT Progress Note Therapy Diagnosis Assessed Bone pain of knee (733.90) (M89.8X6) Traumatic hematoma of left knee, subsequent encounter (V58.89,924.11) (S80.02XD) Loose body of left knee (717.6) (M23.42) Chronic pain of both knees (719.46,338.29) (M25.561,M25.562,G89.2 9) Plan Goals: Goals set and discussed today. 1. Independent HEP to allow for 50% reduction in max ADL C/C sx ( L-01/18; R-11/18)2-3wks 2. 0/10 night time sx to allow for uninterrupted sleep x1wk ( 01/15) 2-3wks 3. Survey score improvement from 3/80 to 40/80 (LEFS) 4-6wks 4. ROM increase to allow for improved ADL car transfers, dressing lowers (from 120 to 130 L knee flexion) 4-6wks 5. Strength increase to allow for improved ADL sit to stdg transfers, stairs (from 3=/4- R/L knee to gr4+ B) 4-6wks 6. Strength increase to allow for improved ADL (from 4/4- R hip to gr4+) 4-6wks Planned interventions include: aquatic therapy, cryotherapy, education/instruction, electrical stimulation, gait training, home program, hot pack, kinesiotaping, manual therapy, neuromuscular re-education, self care/home management and therapeutic exercises. Frequency and duration: 3 time(s) a week, for 6 weeks, for 17 visits. Potential to achieve rehab goals is fair: chronic syndrome Plan to continue with ex' to improve B knee strength and stability for ease of gait and ADL's. -MA. Assessment Patient identified by name AND . Patient wore a mask during treatment d/t Covid-19 precautions. Treatment consisted of NMR activities and ther ex for improved LE strength and balance. Decreased assist of UE needed today with NMR. Fair demo of TrA isometric, but requires verbal and tactile cues to hold with ex's. Back pain bothered patient during treatment during standing and supine ex's. Interdisciplinary Team Communication: Physical Therapy . Response to treatment: improved endurance, improved balance and improved knowledge and understanding of condition. Patient was able to complete today's treatment with some difficulty. Adult Risk Screening There are no spiritual/cultural practices/values/needs that are important to know Initial Fall Risk Screening: KHOA has not fallen in the last 6 months. KHOA does not have a fear of falling. He does not need assistance with sitting, standing or walking. Does not need assistance walking in his home. He does not need assistance in an unfamiliar setting. The patient is using an assistive device. Fall Risk Screening: Patient is identified as a fall risk. Care Plan: Low Risk: Environmental for all patients and low risk patients: Offer assistance as needed or requested, keep environment free of obstacles, keep floor clean and dry, keep room lighting, wheelchair brakes on, bed/ stretcher locked and in low position if applicable, non-slip footwear if applicable, walker/cane available if needed, side rails up if applicable and pre-emptive toileting. Pain Scale: On a scale of 0 to 10, the patient rates the pain at 8. Please identify location of pain: left knee pain is 8/10, right knee pain 7/10. Pain Quality: burning, pressure, tightness and throbbing. The pain makes it hard for the patient to do these things: walking, exercise and self-care (bathing, dressing, eating). Insurance Insurance reviewed Visit number: 6 Authorization date range: C-9 until 09/19/20 [facility] 18v Evaluating therapist William Pastor PT. M25.561; M89.8X6; S80.02Xd; M70.51; M23.42; LATEX ALLERGY; RLE MYOTOME WEAKNESS Subjective Patient reports:. Reports left knee pain is 8/10, right knee pain 7/10. L knee pain is getting more of a sharper pain. B knee pain the same post treatment, but not as tight as it was at the start of treatment. Home program performing as directed: Partially. 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 Treatment Time in clinic started at 10:04 am Time in clinic ended at 10:51 am Total time in clinic is 47 minutes. Total timed code time is 44 minutes. Therapeutic exercise (68074): timed minutes 32, units 2 . NuStep x5 lv- 4, seat 28, arms 8 (SciFit) //: - Mini squat x10 - Hip ext x10 B, standing with L leg on green box to clear R foot. Supine: - TRA set 5 x5 in hooklying - TRA marches 2x10 alt Quad set x10 5'' hold B SAQ x20 B Heel slides (A) B hip Iso Add (A) Hooklying hip adduction, ball squeeze, 2x10 Hooklying hip abduction, purple band, 2x10 SLR B (A) R DF AROM (A). Neuromuscular Re-education (25522): timed minutes 12, units 1 . GAIT BELT USED // bars: Tandem Stance 30 each, 1 UE assist Disassociated stance w/ one leg on floor and one leg on green box 30 ea, 1 UE assist Side step x2 ea direction, 1 UE assist BW gait x4, B UE assist Balance on blue Airex 30 x2, no UE assist Step ups on blue Airex x30, B UE assist. 'Scores and Scales' Signatures Electroni (more content not included)... Normal [facility] Progress Noteon 1 PT Progress Note Therapy Diagnosis Assessed Bone pain of knee (733.90) (M89.8X6) Chronic pain of both knees (719.46,338.29) (M25.561,M25.562,G89.2 9) Infrapatellar bursitis of right knee (726.69) (M70.51) Traumatic hematoma of left knee, subsequent encounter (V58.89,924.11) (S80.02XD) Loose body of left knee (717.6) (M23.42) Plan Goals: Goals set and discussed today. 1. Independent HEP to allow for 50% reduction in max ADL C/C sx ( L-7/10; R-5/10)2-3wks 2. 0/10 night time sx to allow for uninterrupted sleep x1wk ( 01/15) 2-3wks 3. Survey score improvement from 3/80 to 40/80 (LEFS) 4-6wks 4. ROM increase to allow for improved ADL car transfers, dressing lowers (from 120 to 130 L knee flexion) 4-6wks 5. Strength increase to allow for improved ADL sit to stdg transfers, stairs (from 3=/4- R/L knee to gr4+ B) 4-6wks 6. Strength increase to allow for improved ADL (from 4/4- R hip to gr4+) 4-6wks Planned interventions include: aquatic therapy, cryotherapy, education/instruction, electrical stimulation, gait training, home program, hot pack, kinesiotaping, manual therapy, neuromuscular re-education, self care/home management and therapeutic exercises. Frequency and duration: 3 time(s) a week, for 6 weeks, for 17 visits. Potential to achieve rehab goals is fair: chronic syndrome Will continue activities to improve strength and balance to minimize chance for falling and improve ADL tolerance. Progress with POC, as tolerated. Assessment Many cues needed to properly engage TrA during supine ex. No c/o dizziness during ex's, only briefly when transferring to sit after the supine activities. No changes in pain level during or following session. Adult Risk Screening There are no spiritual/cultural practices/values/needs that are important to know Initial Fall Risk Screening: KHOA has not fallen in the last 6 months. KHOA does not have a fear of falling. He does not need assistance with sitting, standing or walking. Does not need assistance walking in his home. He does not need assistance in an unfamiliar setting. The patient is using an assistive device. Fall Risk Screening: Patient is identified as a fall risk. Care Plan: Low Risk: Environmental for all patients and low risk patients: Offer assistance as needed or requested, keep environment free of obstacles, keep floor clean and dry, keep room lighting, wheelchair brakes on, bed/ stretcher locked and in low position if applicable, non-slip footwear if applicable, walker/cane available if needed, side rails up if applicable and pre-emptive toileting. Pain Scale: On a scale of 0 to 10, the patient rates the pain at 8. Please identify location of pain: 6/10 R knee; 8/10 L knee. Pain Quality: burning, pressure, tightness and throbbing. The pain makes it hard for the patient to do these things: walking, exercise and self-care (bathing, dressing, eating). Insurance Insurance reviewed Visit number: 4 Authorization date range: until 09/19/20 [facility] 18v Evaluating therapist William Pastor PT. M25.561; M89.8X6; S80.02Xd; M70.51; M23.42; LATEX ALLERGY; RLE MYOTOME WEAKNESS Subjective Patient reports:. I'm doing ok, just sore and tired. I do feel looser after all the ex's but I don't seem as balanced this morning as I did last wk. 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 Treatment Time in clinic started at 1005 Time in clinic ended at 1051 Total time in clinic is 46 minutes. Total timed code time is 43 minutes. Therapeutic exercise (10741): timed minutes 28, units 2 . NuStep x5 lv- 4, seat 24, arms 8 (SciFit) [P - resistance] //: Mini squat x10 Hip ext x10 B, standing with L leg on green box to clear R foot. Supine: TRA set 5 x5 in plantigrade with elbows on raised plinth TRA marches 2x10 alt Quad set x10 5'' hold B SAQ x20 B [P - reps] Heel slides (A) Hooklying hip adduction, ball squeeze, 2x10 (N) Hooklying hip abduction, purple band, 2x10 (N) SLR B (A) R DF AROM (A). Neuromuscular Re-education (20345): timed minutes 15, units 1 . GAIT BELT USED // bars: B UE assist prn with all Tandem Stance 30 each Disassociated stance w/ one leg on floor and one leg on green box 30 ea (X) Side step x2 ea direction (N) BW gait x4 (N). 'Scores and Scales' Signatures Electronically signed by : Johnie Degroot DATA ENTRY TECHNICIAN; Sep 09 2020 11:07AM EST (Author) Electronically signed by : Christopher Pastor PT; Sep 09 2020 12:22PM EST Normal [facility] PT Progress Noteon PT Progress Note Therapy Diagnosis Assessed Chronic pain of both knees (719.46,338.29) (M25.561,M25.562,G89.2 9) Loose body of left knee (717.6) (M23.42) Infrapatellar bursitis of right knee (726.69) (M70.51) Traumatic hematoma of left knee, subsequent encounter (V58.89,924.11) (S80.02XD) Bone pain of knee (733.90) (M89.8X6) Plan Goals: Goals set and discussed today. 1. Independent HEP to allow for 50% reduction in max ADL C/C sx ( L-710; R-510)2-3wks 2. 0/10 night time sx to allow for uninterrupted sleep x1wk ( 01/15) 2-3wks 3. Survey score improvement from 3/80 to 40/80 (LEFS) 4-6wks 4. ROM increase to allow for improved ADL car transfers, dressing lowers (from 120 to 130 L knee flexion) 4-6wks 5. Strength increase to allow for improved ADL sit to stdg transfers, stairs (from 3=/4- R/L knee to gr4+ B) 4-6wks 6. Strength increase to allow for improved ADL (from 4/4- R hip to gr4+) 4-6wks Planned interventions include: aquatic therapy, cryotherapy, education/instruction, electrical stimulation, gait training, home program, hot pack, kinesiotaping, manual therapy, neuromuscular re-education, self care/home management and therapeutic exercises. Frequency and duration: 3 time(s) a week, for 6 weeks, for 17 visits. Potential to achieve rehab goals is fair: chronic syndrome Plan to continue with progressions of LE strengthening and balance/stability training as tolerated to improve ease/tolerance with functional/community ambulation. Assessment Patient ID confirmed using Name and . Patient wearing mask throughout session today d/t COVID-19 precautions. Patient continues to demos LE weakness and limitations d/t pain/discomfort, presents with FWW for balance/stability. Adult Risk Screening There are no spiritual/cultural practices/values/needs that are important to know Initial Fall Risk Screening: KHOA has not fallen in the last 6 months. KHOA does not have a fear of falling. He does not need assistance with sitting, standing or walking. Does not need assistance walking in his home. He does not need assistance in an unfamiliar setting. The patient is using an assistive device. Fall Risk Screening: Patient is identified as a fall risk. Care Plan: Low Risk: Environmental for all patients and low risk patients: Offer assistance as needed or requested, keep environment free of obstacles, keep floor clean and dry, keep room lighting, wheelchair brakes on, bed/ stretcher locked and in low position if applicable, non-slip footwear if applicable, walker/cane available if needed, side rails up if applicable and pre-emptive toileting. Pain Scale: On a scale of 0 to 10, the patient rates the pain at 8. Please identify location of pain: 6/10 R knee; 8/10 L knee. Pain Quality: burning, pressure, tightness and throbbing. The pain makes it hard for the patient to do these things: walking, exercise and self-care (bathing, dressing, eating). Insurance Insurance reviewed Visit number: 4 Authorization date range: C-9 until 09/19/20 [facility] 18v Evaluating therapist William Pastor PT. M25.561; M89.8X6; S80.02Xd; M70.51; M23.42; LATEX ALLERGY; RLE MYOTOME WEAKNESS Subjective Patient reports:. Patient reports continued L knee pain and RLE weakness. Home program performing as directed: Yes. 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 Treatment Time in clinic started at 1001 Time in clinic ended at 1045 Total time in clinic is 44 minutes. Total timed code time is 43 minutes. Therapeutic exercise (34298): timed minutes 28, units 2 . NuStep x5 lv- 3, seat 24, arms 8 (SciFit) //: Mini squat x10 Hip ext x10 B, standing with L leg on green box to clear R foot. Supine: TRA set 5 x5 in plantigrade with elbows on raised plinth TRA marches 2x10 alt Quad set x10 5'' hold B SAQ x10 B Heel slides (A) Hooklying hip adduction (A) Hooklying hip abduction (A) SLR B (A) R DF AROM (A). Neuromuscular Re-education (96501): timed minutes 15, units 1 . GAIT BELT USED // bars: B UE assist prn with all Tandem Stance 30 each Disassociated stance w/ one leg on floor and one leg on green box 30 ea (N) Side step x2 ea direction (N) BW gait x4 (N). 'Scores and Scales' Signatures Electronically signed by : Emeterio Palacio DATA ENTRY TECHNICIAN; Sep 18 2020 8:25AM EST (Author) Electronically signed by : Christopher Pastor PT; Sep 18 2020 10:47AM EST Normal [facility] PT Progress Noteon 1 PT Progress Note Therapy Diagnosis Assessed Bone pain of knee (733.90) (M89.8X6) Traumatic hematoma of left knee, subsequent encounter (V58.89,924.11) (S80.02XD) Infrapatellar bursitis of right knee (726.69) (M70.51) Loose body of left knee (717.6) (M23.42) Chronic pain of both knees (719.46,338.29) (M25.561,M25.562,G89.2 9) Plan Goals: Goals set and discussed today. 1. Independent HEP to allow for 50% reduction in max ADL C/C sx ( L-710; R-11/18)2-3wks 2. 0/10 night time sx to allow for uninterrupted sleep x1wk ( 01/15) 2-3wks 3. Survey score improvement from 3/80 to 40/80 (LEFS) 4-6wks 4. ROM increase to allow for improved ADL car transfers, dressing lowers (from 120 to 130 L knee flexion) 4-6wks 5. Strength increase to allow for improved ADL sit to stdg transfers, stairs (from 3=/4- R/L knee to gr4+ B) 4-6wks 6. Strength increase to allow for improved ADL (from 4/4- R hip to gr4+) 4-6wks Planned interventions include: aquatic therapy, cryotherapy, education/instruction, electrical stimulation, gait training, home program, hot pack, kinesiotaping, manual therapy, neuromuscular re-education, self care/home management and therapeutic exercises. Frequency and duration: 3 time(s) a week, for 6 weeks, for 17 visits. Potential to achieve rehab goals is fair: chronic syndrome Plan to add active R DF movements for right ankle for decreased drop foot and improved gait. -MA. Assessment Patient identified by name AND . Patient wore a mask during treatment d/t Covid-19 precautions. Treatment consisted of ther ex's for B knee and hip ROM and strengthening and NMR activities. Fair demo of TrA, which improved after verbal and tactile cues. He did have difficulty maintaining TrA with ex's. Patient able perform NMR activities in // bars with min A. Patient did report that he was feeling dizzy with transfers on/off plinth. Patient had reports of low back pain with some of the standing ex's/activities. Pain levels the same pre and post treatment. Interdisciplinary Team Communication: Physical Therapy . Response to treatment: no change in pain and improved knowledge and understanding of condition. Patient was able to complete today's treatment with some difficulty. Adult Risk Screening There are no spiritual/cultural practices/values/needs that are important to know Initial Fall Risk Screening: KHOA has not fallen in the last 6 months. KHOA does not have a fear of falling. He does not need assistance with sitting, standing or walking. Does not need assistance walking in his home. He does not need assistance in an unfamiliar setting. The patient is using an assistive device. Fall Risk Screening: Patient is identified as a fall risk. Care Plan: Low Risk: Environmental for all patients and low risk patients: Offer assistance as needed or requested, keep environment free of obstacles, keep floor clean and dry, keep room lighting, wheelchair brakes on, bed/ stretcher locked and in low position if applicable, non-slip footwear if applicable, walker/cane available if needed, side rails up if applicable and pre-emptive toileting. Pain Scale: On a scale of 0 to 10, the patient rates the pain at 8. Please identify location of pain: 6/10 R knee; 8/10 L knee. Pain Quality: burning, pressure, tightness and throbbing. The pain makes it hard for the patient to do these things: walking, exercise and self-care (bathing, dressing, eating). Insurance Insurance reviewed Visit number: 3 Authorization date range: until 09/19/20 [facility] 18v Evaluating therapist William Pastor PT. M25.561; M89.8X6; S80.02Xd; M70.51; M23.42; LATEX ALLERGY; RLE MYOTOME WEAKNESS Subjective Patient reports:. Patient reports that he has 6/10 R knee pain and 8/10 L knee pain. States his balance is not good. States B knees want to buckle. Has back pain of 6/10 today also. Pain levels the same post treatment. Home program performing as directed: Yes. 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 Treatment Time in clinic started at 10:00 am Time in clinic ended at 10:47 am Total time in clinic is 47 minutes. Total timed code time is 43 minutes. Therapeutic exercise (79033): timed minutes 28, units 2 . NuStep x5 lv- 3, seat 24, arms 8 (SciFit) //: Mini squat x10 Hip ext x10 B, standing with L leg on green box to clear R foot. Supine: TRA set 5 x5 in plantigrade with elbows on raised plinth TRA marches 2x10 alt Quad set x10 5'' hold B SAQ x10 B Heel slides (A) Hooklying hip adduction (A) Hooklying hip abduction (A) SLR B (A) R DF AROM (A). Neuromuscular Re-education (69986): timed minutes 15, units 1 . GAIT BELT USED // bars: B UE assist prn with all Tandem Stance 30 each Disassociated stance w/ one leg on floor and one leg on green box 30 ea (N) Side step x2 ea direction (N) BW gai (more content not included)... Normal [facility] XR KNEES BILATERAL 4+ VIEWS (SPECIFY VIEWS IN COMMENTS)on 11-30-2019 XR KNEES BILATERAL 4+ VIEWS (SPECIFY VIEWS IN COMMENTS) EXAMINATION: XR KNEES BILATERAL 4+ VIEWS (SPECIFY VIEWS IN COMMENTS) 11/30/2019 10:23 am HISTORY: ORDERING SYSTEM PROVIDED HISTORY: Pain, TECHNOLOGIST PROVIDED HISTORY: Injury/Trauma Reason for exam: fall pain since Cancer History: u Surgery, RadiationHistory: u Encounter Type: Subsequent/Follow-up Mechanism of injury: fall pain since ORDERING SYSTEM PROVIDED DIAGNOSIS CODES: R52 Pain COMPARISON: None available. TECHNIQUE: Four views of both knees. FINDINGS: Left knee: There is moderately severe narrowing of the lateral tibiofemoral joint compartment resulting in a slight valgus angulation of the knee. There are small osteophytes along the medial and lateral joint compartments. There are moderate degenerative changes of the patellofemoral joint with lateral patellar tilting. There are subchondral lucencies at the articular surface of the patella compatible with chondromalacia. There is a small suprapatellar joint effusion. No acute fracture. Right knee: There is mild narrowing of the medial and lateral tibiofemoral joint compartments associated with small marginal osteophytes. There are moderate degenerative changes of the patellofemoral joint with subchondral lucencies consistent with chondromalacia. There is a small suprapatellar joint effusion. No acute fracture. IMPRESSION: 1. 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 2. 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 3. Small bilateral suprapatellar joint effusions. [employer] Workstation ID: [id number] Dictated by: AMBREEN MANN on WedDecember 01, 2019 9:34:15 AM EDT Transcribed by: LINDA DE LA CRUZ on WedDecember 01, 2019 9:53:36 AM EDT Finalized by: AMBREEN MANN on WedDecember 01, 2019 12:03:49 PM EDT Normal [facility] Comment on above: Order Comment: Injur y/Trauma or Illness?:Injury/Trauma How long have you had these symptoms (acute/chronic)?:Chronic Reason for exam?:fall pain since History of cancer?:u Surgeries, chemotherapy, or radiation?:u Type of Exam?:Subsequent/Follow-up Mechanism of injury?:fall pain since Glucose Meteron 11-07-2019 Glucose [Mass/Vol] 156 mg/dL High 70-99 [facility] Comment on above: Result Comment: [place] OTIFIED Performed By: #### G LMET #### [place] [address] Total 25-OH Vitamin Don - Total 25-OH Vitamin D 11.9 ng/mL Low 30.0-100.0 [facility] Comment on above: Performed By: #### B MP #### [facility] [address] [place] [address] TSHon 11-05-2019 TSH Qn 2.600 uIU/mL Normal 0.270-4.200 [facility] Comment on above: Result Comment: Preg kehinde: 1st trimester:(9-12 weeks):0.180-2.900 uIU/mL 2nd trimester: 0.110-3.980 uIU/mL 3rd trimester: 0.480-4.710 uIU/mL Patients taking a biotin dose of up to 5 mg/day should refrain from taking biotin for 4 hours prior to sample collection. Patients taking a biotin dose of 5 to 10 mg/day should refrain from taking biotin for 8 hours prior to sample collection. Patients taking a biotin dose > 10 mg/day should consult with their physician or the laboratory prior to having a sample taken. Clinicians should consider biotin interference as a source of error, when clinically suspicious of the laboratory result. Performed By: #### B MP #### [place] [address] Basic Metabolic Panelon 10-11 Anion gap [Moles/Vol] 11 mmol/L Normal 9-18 [facility] Comment on above: Performed By: #### B MP #### [place] [address] Calcium [Mass/Vol] 8.6 mg/dL Normal 8.5-10.2 [facility] Comment on above: Performed By: #### B MP #### [facility] [address] [place], [place] [address] Chloride [Moles/Vol] 107 mmol/L High 97-105 [facility] Comment on above: Performed By: #### B MP #### [facility] [address] [place] [address] CO2 Blood 26 mmol/L Normal 22-30 [facility] Comment on above: Performed By: #### B MP #### [place] [address] Creatinine [Mass/Vol] 1.10 mg/dL Normal 0.73-1.22 [facility] Comment on above: Performed By: #### B MP #### [facility] [address] [place], [place] [address] Glucose [Mass/Vol] 170 mg/dL High 74-99 [facility] Comment on above: Result Comment: The [place] Diabetes Association (ADA) provides guidance for cutoff values for fasting glucose and random glucose. The ADA defines fasting as no caloric intake for at least 8 hours.Fasting plasma glucose results between 100 to 125 mg/dL indicate increased risk for diabetes (prediabetes). Fasting plasma glucose results greater than or equal to 126 mg/dL meet the criteria for diagnosis of diabetes. In the absence of unequivocal hyperglycemia, results should be confirmed by repeat testing. In a patient with classic symptoms of hyperglycemia or hyperglycemic crisis, random plasma glucose results greater than or equal to 200 mg/dL meet the criteria for diagnosis of diabetes. Reference: Standards of Medical Care in Diabetes 2016; [place] Diabetes Association. Diabetes Care. 2016;39(Suppl 1). Performed By: #### B MP #### [place] [address] Potassium [Moles/Vol] 4.1 mmol/L Normal 3.7-5.1 [facility] Comment on above: Performed By: #### B MP #### [address] [address] Sodium [Moles/Vol] 144 mmol/L Normal 136-144 [facility] Comment on above: Performed By: #### B MP #### [address] [address] Urea nitrogen [Mass/Vol] 28 mg/dL High 9-24 [facility] Comment on above: Performed By: #### B MP #### [address] [address] Hemogram/Diffon 11-03-2019 Abs Immature Grans 0.02 thou/cmm Normal 0.00-0.05 [facility] Comment on above: Performed By: #### B MP #### [place] [id number] Abs Neut (ANC) 4.24 thou/cmm Normal 1.78-5.38 [facility] Comment on above: Performed By: #### B MP #### [facility] [address] [place] [address] Abs. Baso 0.02 thou/cmm Normal 0.01-0.08 [facility] Comment on above: Performed By: #### B MP #### [facility] [address] [place] [address] Abs. Hart 0.50 thou/cmm Normal 0.30-0.82 [facility] Comment on above: Performed By: #### B MP #### [facility] [address] [place] [address] Basophils/100 WBC (Bld) 0.3 % Normal [facility] Comment on above: Performed By: #### B MP #### [facility] [address] [place] [address] Eosinophils (Bld) [#/Vol] 0.15 thou/cmm Normal 0.04-0.54 [facility] Comment on above: Performed By: #### B MP #### [facility] [address] [place] [address] Eosinophils/100 WBC (Bld) 2.4 % Normal [facility] Comment on above: Performed By: #### B MP #### [facility] [address] [place] [address] Erythrocyte distribution width (RBC) [Ratio] 15.2 % High 11.6-14.4 [facility] Comment on above: Performed By: #### B MP #### [facility] [address] [place] [address] Hematocrit (Bld) [Volume fraction] 43.7 % Normal 40.1-51.0 [facility] Comment on above: Performed By: #### B MP #### [facility] [address] [place] [address] Hemoglobin (Bld) [Mass/Vol] 13.4 g/dL Low 13.7-17.5 [facility] Comment on above: Performed By: #### B MP #### [facility] [address] [place], [place] [address] Immature Grans 0.30 % Normal [facility] Comment on above: Performed By: #### B MP #### [facility] [address] [place], [place] [address] Lymphocytes (Bld) [#/Vol] 1.24 thou/cmm Normal 0.84-2.85 [facility] Comment on above: Performed By: #### B MP #### [facility] [address] [place], [place] [address] Lymphocytes/100 WBC (Bld) 20.1 % Normal [facility] Comment on above: Performed By: #### B MP #### [facility] [address] [place] [address] MCH (RBC) [Entitic mass] 29.2 pg Normal 25.7-32.2 [facility] Comment on above: Performed By: #### B MP #### [facility] [address] [place] [address] MCHC (RBC) [Mass/Vol] 30.7 % Low 32.3-36.5 [facility] Comment on above: Performed By: #### B MP #### [facility] [address] [place] [address] MCV (RBC) [Entitic vol] 95.2 fL Normal 83.2-95.6 [facility] Comment on above: Performed By: #### B MP #### [facility] [address] [place] [address] Monocytes/100 WBC (Bld) 8.1 % Normal [facility] Comment on above: Performed By: #### B MP #### [facility] [address] [place] [address] Platelet mean volume (Bld) [Entitic vol] 10.6 fL Normal 8.7-12.0 [facility] Comment on above: Performed By: #### B MP #### [facility] [address] [place] [id number] Platelets (Bld) [#/Vol] 142 thou/cmm Normal 141-365 [facility] Comment on above: Performed By: #### B MP #### [facility] [address] [place] [address] RBC (Bld) [#/Vol] 4.59 mil/cmm Low 4.63-6.08 [facility] Comment on above: Performed By: #### B MP #### [facility] [address] [place] [address] RDW SD 53.1 fl High 36.1-45.8 [facility] Comment on above: Performed By: #### B MP #### [facility] [address] [place] [address] Seg Neutrophil 68.8 % Normal [facility] Comment on above: Performed By: #### B MP #### [facility] [address] [place] [address] WBC (Bld) [#/Vol] 6.17 thou/cmm Normal 4.23-9.07 [facility] Comment on above: Performed By: #### B MP #### [facility] [address] [place] [address] MDRD GFRon 11-03-2019 GFR/1.73 sq M predicted among non-blacks MDRD (S/P/Bld) [Vol rate/Area] mL/min/{1.73_m2} Normal >60mL/min/1 .73m2 [facility] Comment on above: Result Comment: If t he patient is , multiply the result by 1.210. Performed By: #### G FR #### [facility] [address] [place] [address] Basic Metabolic Panelon 10-11 Anion gap [Moles/Vol] 9 mmol/L Normal 9-18 [facility] Comment on above: Performed By: #### B MP #### [facility] [address] [place] [address] Calcium [Mass/Vol] 8.7 mg/dL Normal 8.5-10.2 [facility] Comment on above: Performed By: #### B MP #### [facility] [address] [place] [address] [place], [place] [address] Chloride [Moles/Vol] 105 mmol/L Normal 97-105 [facility] Comment on above: Performed By: #### B MP #### [facility] [address] [place], [place] [address] CO2 Blood 28 mmol/L Normal 22-30 [facility] Comment on above: Performed By: #### B MP #### [facility] [address] [place], [place] [address] Creatinine [Mass/Vol] 1.09 mg/dL Normal 0.73-1.22 [facility] Comment on above: Performed By: #### B MP #### [facility] [address] [place], [place] [address] Glucose [Mass/Vol] 166 mg/dL High 74-99 [facility] Comment on above: Result Comment: The [place] Diabetes Association (ADA) provides guidance for cutoff values for fasting glucose and random glucose. The ADA defines fasting as no caloric intake for at least 8 hours.Fasting plasma glucose results between 100 to 125 mg/dL indicate increased risk for diabetes (prediabetes). Fasting plasma glucose results greater than or equal to 126 mg/dL meet the criteria for diagnosis of diabetes. In the absence of unequivocal hyperglycemia, results should be confirmed by repeat testing. In a patient with classic symptoms of hyperglycemia or hyperglycemic crisis, random plasma glucose results greater than or equal to 200 mg/dL meet the criteria for diagnosis of diabetes. Reference: Standards of Medical Care in Diabetes 2016; [place] Diabetes Association. Diabetes Care. 2016;39(Suppl 1). Performed By: #### B MP #### [facility] [address] [place], [place] [address] Potassium [Moles/Vol] 4.1 mmol/L Normal 3.7-5.1 [facility] Comment on above: Performed By: #### B MP #### [facility] [address] [place], [place] [address] Sodium [Moles/Vol] 142 mmol/L Normal 136-144 [facility] Comment on above: Performed By: #### B MP #### [facility] [address] [place], [place] [address] Urea nitrogen [Mass/Vol] 26 mg/dL High 9-24 [facility] Comment on above: Performed By: #### B MP #### [facility] [address] [place] [address] Hemogram/Diffon 11-02-2019 Abs Immature Grans 0.04 thou/cmm Normal 0.00-0.05 [facility] Comment on above: Performed By: #### B MP #### [facility] [address] [place] [address] Abs Neut (ANC) 4.83 thou/cmm Normal 1.78-5.38 [facility] Comment on above: Performed By: #### B MP #### [facility] [address] [place] [address] Abs. Baso 0.02 thou/cmm Normal 0.01-0.08 [facility] Comment on above: Performed By: #### B MP #### [facility] 1 [place] [address] Abs. Hart 0.55 thou/cmm Normal 0.30-0.82 [facility] Comment on above: Performed By: #### B MP #### [facility] 1 [place] [address] Basophils/100 WBC (Bld) 0.3 % Normal [facility] Comment on above: Performed By: #### B MP #### [facility] [address] [place] [address] Eosinophils (Bld) [#/Vol] 0.16 thou/cmm Normal 0.04-0.54 [facility] Comment on above: Performed By: #### B MP #### [facility] 1 [place] [address] Eosinophils/100 WBC (Bld) 2.5 % Normal [facility] Comment on above: Performed By: #### B MP #### [facility] 1 [place] [address] Erythrocyte distribution width (RBC) [Ratio] 15.2 % High 11.6-14.4 [facility] Comment on above: Performed By: #### B MP #### [facility] [address] [place] [address] Hematocrit (Bld) [Volume fraction] 42.8 % Normal 40.1-51.0 [facility] Comment on above: Performed By: #### B MP #### [facility] [address] [place] [address] Hemoglobin (Bld) [Mass/Vol] 13.5 g/dL Low 13.7-17.5 [facility] Comment on above: Performed By: #### B MP #### [facility] [address] [place] [address] Immature Grans 0.60 % Normal [facility] Comment on above: Performed By: #### B MP #### [facility] [address] [place] [address] Lymphocytes (Bld) [#/Vol] 0.91 thou/cmm Normal 0.84-2.85 [facility] Comment on above: Performed By: #### B MP #### [facility] [address] [place] [address] Lymphocytes/100 WBC (Bld) 14.0 % Normal [facility] Comment on above: Performed By: #### B MP #### [facility] [address] [place] [address] MCH (RBC) [Entitic mass] 29.1 pg Normal 25.7-32.2 [facility] Comment on above: Performed By: #### B MP #### [facility] [address] [place] [address] MCHC (RBC) [Mass/Vol] 31.5 % Low 32.3-36.5 [facility] Comment on above: Performed By: #### B MP #### [facility] [address] [place] [address] MCV (RBC) [Entitic vol] 92.2 fL Normal 83.2-95.6 [facility] Comment on above: Performed By: #### B MP #### [facility] 1 [place] [address] Monocytes/100 WBC (Bld) 8.4 % Normal [facility] Comment on above: Performed By: #### B MP #### [facility] 1 [place], [place] [address] Platelet mean volume (Bld) [Entitic vol] 10.0 fL Normal 8.7-12.0 [facility] Comment on above: Performed By: #### B MP #### [facility] 1 [place], [place] [address] Platelets (Bld) [#/Vol] 137 thou/cmm Low 141-365 [facility] Comment on above: Performed By: #### B MP #### [facility] [address] [place] [address] RBC (Bld) [#/Vol] 4.64 mil/cmm Normal 4.63-6.08 [facility] Comment on above: Performed By: #### B MP #### [facility] [address] [place] [address] RDW SD 51.4 fl High 36.1-45.8 [facility] Comment on above: Performed By: #### B MP #### [facility] [address] [place] [address] Seg Neutrophil 74.2 % Normal [facility] Comment on above: Performed By: #### B MP #### [facility] [address] [place] [address] WBC (Bld) [#/Vol] 6.51 thou/cmm Normal 4.23-9.07 [facility] Comment on above: Performed By: #### B MP #### [facility] [address] [place] [address] Basic Metabolic Panelon 04- Anion gap [Moles/Vol] 10 mmol/L Normal 9-18 [facility] Comment on above: Performed By: #### B MP #### [facility] [address] [place] [address] Calcium [Mass/Vol] 8.8 mg/dL Normal 8.5-10.2 [facility] Comment on above: Performed By: #### B MP #### [facility] [address] [place] [address] Chloride [Moles/Vol] 105 mmol/L Normal 97-105 [facility] Comment on above: Performed By: #### B MP #### [facility] 1 [place], [place] [address] CO2 Blood 28 mmol/L Normal 22-30 [facility] Comment on above: Performed By: #### B MP #### [facility] 1 [place], [place] [address] Creatinine [Mass/Vol] 0.99 mg/dL Normal 0.73-1.22 [facility] Comment on above: Performed By: #### B MP #### [facility] 1 [place], [place] [address] Glucose [Mass/Vol] 148 mg/dL High 74-99 [facility] Comment on above: Result Comment: The [place] Diabetes Association (ADA) provides guidance for cutoff values for fasting glucose and random glucose. The ADA defines fasting as no caloric intake for at least 8 hours.Fasting plasma glucose results between 100 to 125 mg/dL indicate increased risk for diabetes (prediabetes). Fasting plasma glucose results greater than or equal to 126 mg/dL meet the criteria for diagnosis of diabetes. In the absence of unequivocal hyperglycemia, results should be confirmed by repeat testing. In a patient with classic symptoms of hyperglycemia or hyperglycemic crisis, random plasma glucose results greater than or equal to 200 mg/dL meet the criteria for diagnosis of diabetes. Reference: Standards of Medical Care in Diabetes 2016; [place] Diabetes Association. Diabetes Care. 2016;39(Suppl 1). Performed By: #### B MP #### [facility] 1 [place], [place] [address] Potassium [Moles/Vol] 4.0 mmol/L Normal 3.7-5.1 [facility] Comment on above: Performed By: #### B MP #### [facility] 1 [place], [place] [address] Sodium [Moles/Vol] 143 mmol/L Normal 136-144 [facility] Comment on above: Performed By: #### B MP #### [facility] 1 [place], [place] [address] Urea nitrogen [Mass/Vol] 20 mg/dL Normal 9-24 [facility] Comment on above: Performed By: #### B MP #### [facility] 1 [place] [address] Hemogram/Diffon 11-01-2019 Abs Immature Grans 0.08 thou/cmm High 0.00-0.05 [facility] Comment on above: Performed By: #### C BCD1 #### [facility] 1 [place] [address] Abs Neut (ANC) 5.10 thou/cmm Normal 1.78-5.38 [facility] Comment on above: Performed By: #### C BCD1 #### [facility] 1 [place] [address] Abs. Baso 0.02 thou/cmm Normal 0.01-0.08 [facility] Comment on above: Performed By: #### C BCD1 #### [facility] 1 [place] [address] Abs. Hart 0.65 thou/cmm Normal 0.30-0.82 [facility] Comment on above: Performed By: #### C BCD1 #### [facility] 1 [place] [address] Basophils/100 WBC (Bld) 0.3 % Normal [facility] Comment on above: Performed By: #### C BCD1 #### [facility] 1 [place] [address] Eosinophils (Bld) [#/Vol] 0.18 thou/cmm Normal 0.04-0.54 [facility] Comment on above: Performed By: #### C BCD1 #### [facility] 1 [place] [address] Eosinophils/100 WBC (Bld) 2.5 % Normal [facility] Comment on above: Performed By: #### C BCD1 #### [facility] [address] [place] [address] Erythrocyte distribution width (RBC) [Ratio] 15.1 % High 11.6-14.4 [facility] Comment on above: Performed By: #### C BCD1 #### [facility] 1 [place] [address] Hematocrit (Bld) [Volume fraction] 42.6 % Normal 40.1-51.0 [facility] Comment on above: Performed By: #### C BCD1 #### [facility] 1 [place], [place] [address] Hemoglobin (Bld) [Mass/Vol] 13.5 g/dL Low 13.7-17.5 [facility] Comment on above: Performed By: #### C BCD1 #### [facility] 1 [place] [address] Immature Grans 1.10 % Normal [facility] Comment on above: Performed By: #### C BCD1 #### [facility] 1 [place] [address] Lymphocytes (Bld) [#/Vol] 1.14 thou/cmm Normal 0.84-2.85 [facility] Comment on above: Performed By: #### C BCD1 #### [facility] [address] [place] [address] Lymphocytes/100 WBC (Bld) 15.9 % Normal [facility] Comment on above: Performed By: #### C BCD1 #### [facility] 1 [place] [address] MCH (RBC) [Entitic mass] 29.5 pg Normal 25.7-32.2 [facility] Comment on above: Performed By: #### C BCD1 #### [facility] [address] [place] [address] MCHC (RBC) [Mass/Vol] 31.7 % Low 32.3-36.5 [facility] Comment on above: Performed By: #### C BCD1 #### [facility] [address] [place] [address] MCV (RBC) [Entitic vol] 93.0 fL Normal 83.2-95.6 [facility] Comment on above: Performed By: #### C BCD1 #### [facility] 1 [place], [place] [address] Monocytes/100 WBC (Bld) 9.1 % Normal [facility] Comment on above: Performed By: #### C BCD1 #### [facility] 1 [place], [place] [address] Platelet mean volume (Bld) [Entitic vol] 10.2 fL Normal 8.7-12.0 [facility] Comment on above: Performed By: #### C BCD1 #### [facility] 1 [place], [place] [address] Platelets (Bld) [#/Vol] 143 thou/cmm Normal 141-365 [facility] Comment on above: Performed By: #### C BCD1 #### [facility] 1 [place], [place] [address] RBC (Bld) [#/Vol] 4.58 mil/cmm Low 4.63-6.08 [facility] Comment on above: Performed By: #### C BCD1 #### [facility] 1 [place] [address] RDW SD 51.5 fl High 36.1-45.8 [facility] Comment on above: Performed By: #### C BCD1 #### [facility] 1 [place], [place] [address] Seg Neutrophil 71.1 % Normal [facility] Comment on above: Performed By: #### C BCD1 #### [facility] 1 [place] [address] WBC (Bld) [#/Vol] 7.17 thou/cmm Normal 4.23-9.07 [facility] Comment on above: Performed By: #### C BCD1 #### [facility] 1 [place] [address] Lipid Profile, Basicon 10-31 Cholesterol [Mass/Vol] 133 mg/dL Normal 0-199 [facility] Comment on above: Result Comment: Tota l Cholesterol < 200 mg/dL, Desirable Total Cholesterol 200 to 239 mg/dL, Borderline high Total Cholesterol > 239 mg/dL, High Performed By: #### B MP #### [facility] 1 [place] [address] Cholesterol in HDL [Mass/Vol] 29 mg/dL Normal [facility] Comment on above: Result Comment: Refe rence Range: HDL Cholesterol 40- 59 mg/dL, Acceptable HDL Cholesterol >59 mg/dL, High; Negative risk factor for coronary heart disease HDL Cholesterol <40 mg/dL, Low; Positive risk factor for coronary heart disease Performed By: #### B MP #### [facility] [address] [place] [address] Cholesterol in LDL [Mass/Vol] 84 mg/dL Normal 0-99 [facility] Comment on above: Result Comment: LDL Cholesterol < 100 mg/dL, Optimal LDL Cholesterol 100 to 129 mg/dL, Near optimal/above optimal LDL Cholesterol 130 to 159 mg/dL, Borderline high LDL Cholesterol 160 to 189 mg/dL, High LDL Cholesterol > 189 mg/dL, Very high Secondary prevention optimal LDL Cholesterol levels are recommended to be < 70 mg/dL Performed By: #### B MP #### [place] [address] Cholesterol in LDL/Cholesterol in HDL [Mass ratio] 2.90 High 0.00-2.53 [facility] Comment on above: Performed By: #### B MP #### [place] [address] Cholesterol.total/Willa sterol in HDL [Mass ratio] 4.59 {ratio} Normal 0.00-5.09 [facility] Comment on above: Performed By: #### B MP #### [place] [address] Non-HDL Cholesterol 104 mg/dL Normal 0-129 [facility] Comment on above: Result Comment: Non HDL Cholesterol < 130 mg/dL, Optimal Non HDL Cholesterol 130 to 159 mg/dL, Near optimal/above optimal Non HDL Cholesterol 160 to 189 mg/dL, Borderline high Non HDL Cholesterol 190 to 219 mg/dL, High Non HDL Cholesterol > 219 mg/dL, Very high Secondary prevention optimal non HDL Cholesterol levels are recommended to be < 100 mg/dL Performed By: #### B MP #### [place] [address] Triglyceride Blood 98 mg/dL Normal 0-149 [facility] Comment on above: Result Comment: Trig lycerides < 150 mg/dL, Normal Triglycerides 150 to 199 mg/dL, Borderline high Triglycerides 200 to 499 mg/dL, High Triglycerides > 499 mg/dL, Very high Performed By: #### B MP #### [place] [address] VLDL Cholesterol 20 mg/dL Normal 0-29 [facility] Comment on above: Performed By: #### B MP #### [place] [address] Vitamin B12on 11-01-2019 Cobalamin (Vitamin B12) [Mass/Vol] 201 pg/mL Low 232-1245 [facility] Comment on above: Result Comment: Joselin ents taking a biotin dose of up to 5 mg/day should refrain from taking biotin for 4 hours prior to sample collection. Patients taking a biotin dose of 5 to 10 mg/day should refrain from taking biotin for 8 hours prior to sample collection. Patients taking a biotin dose > 10 mg/day should consult with their physician or the laboratory prior to having a sample taken. Clinicians should consider biotin interference as a source of error, when clinically suspicious of the laboratory result. Performed By: #### B MP #### [place] [address] Basic Metabolic Panelon 10-11 Anion gap [Moles/Vol] 13 mmol/L Normal 9-18 [facility] Comment on above: Performed By: #### B MP #### [place] [address] Chloride [Moles/Vol] 102 mmol/L Normal 97-105 [facility] Comment on above: Performed By: #### B MP #### [place] [address] CO2 Blood 25 mmol/L Normal 22-30 [facility] Comment on above: Performed By: #### B MP #### [place] [address] Creatinine [Mass/Vol] 0.92 mg/dL Normal 0.73-1.22 [facility] Comment on above: Performed By: #### B MP #### [place] [address] Glucose [Mass/Vol] 242 mg/dL High 74-99 [facility] Comment on above: Result Comment: The [place] Diabetes Association (ADA) provides guidance for cutoff values for fasting glucose and random glucose. The ADA defines fasting as no caloric intake for at least 8 hours.Fasting plasma glucose results between 100 to 125 mg/dL indicate increased risk for diabetes (prediabetes). Fasting plasma glucose results greater than or equal to 126 mg/dL meet the criteria for diagnosis of diabetes. In the absence of unequivocal hyperglycemia, results should be confirmed by repeat testing. In a patient with classic symptoms of hyperglycemia or hyperglycemic crisis, random plasma glucose results greater than or equal to 200 mg/dL meet the criteria for diagnosis of diabetes. Reference: Standards of Medical Care in Diabetes 2016; [place] Diabetes Association. Diabetes Care. 2016;39(Suppl 1). Performed By: #### B MP #### [address] [address] Potassium [Moles/Vol] 4.3 mmol/L Normal 3.7-5.1 [facility] Comment on above: Performed By: #### B MP #### [facility] 1 [place], [place] [address] Sodium [Moles/Vol] 140 mmol/L Normal 136-144 [facility] Comment on above: Performed By: #### B MP #### [facility] 1 [place], [place] [address] Urea nitrogen [Mass/Vol] 21 mg/dL Normal 9-24 [facility] Comment on above: Performed By: #### B MP #### [address] [address] [address] CERVICAL SPINE WO IVCONon 10-31-2019 CT CERVICAL SPINE WO IVCON * * *Final Report* * * DATE OF EXAM: Oct 31 2019 12:12AM [facility] 0505 - CT CERVICAL SPINE WO IVCON / PROCEDURE REASON: C-spine fx, traumatic * * * * Physician Interpretation * * * * EXAMINATION: CT CERVICAL SPINE WO IVCON CLINICAL HISTORY: Trauma TECHNIQUE: CT of the cervical spine without IV contrast. Spiral, high resolution axial images were obtained from the skull base to the cervicothoracic junction with sagittal and coronal planar reconstructions. MQ: [id number] CT Dose-Length Product (DLP): 653 mGy*cm CT Dose Reduction Employed: Iterative recon COMPARISON: None. RESULT: Counting reference: Craniocervical junction. Anatomic Variants: None. Alignment: Slight retrolisthesis of C5 on C6. Craniocervical junction: Craniocervical junction is normal. Osseous structures/fracture: No evidence of a lytic or blastic process in the visualized spine. No evidence of acute or chronic fracture. Cervical soft tissues: The paraspinal soft tissues are within normal limits. Degenerative changes: Multilevel degenerative changes greatest at C7-T1 and C5-6 where calcified disc osteophyte complex causes at least mild, possibly greater spinal canal stenosis. Minimal endplate height loss at C6 and C7. IMPRESSION: Study is moderately degraded secondary to patient motion. Within this limitation, no acute fracture or evidence of traumatic listhesis. Anatomic Variant: None. Assume 7 cervical vertebrae with counting from the craniocervical junction. Cna Hha: JOSE GUADALUPE Transcribe Date/Time: Oct 31 2019 12:14A Dictated by : GAUTAM COVARRUBIAS MD This examination was interpreted and the report reviewed and electronically signed by: GAUTAM COVARRUBIAS MD on Oct 31 2019 12:21AM EST Normal [facility] Hemogram/Diffon 10-31-2019 Abs Immature Grans 0.03 thou/cmm Normal 0.00-0.05 [facility] Comment on above: Performed By: #### C BCD1 #### [place] [address] Abs Neut (ANC) 6.27 thou/cmm High 1.78-5.38 [facility] Comment on above: Performed By: #### C BCD1 #### [place] [address] Abs. Baso 0.01 thou/cmm Normal 0.01-0.08 [facility] Comment on above: Result Comment: Smea r scanned; tech agrees with automated differential Performed By: #### C BCD1 #### [place] [address] Abs. Hart 0.53 thou/cmm Normal 0.30-0.82 [facility] Comment on above: Performed By: #### C BCD1 #### [facility] 1 [place], [place] [address] Basophils/100 WBC (Bld) 0.1 % Normal [facility] Comment on above: Performed By: #### C BCD1 #### [facility] 1 [place], [place] [address] Eosinophils (Bld) [#/Vol] 0.01 thou/cmm Low 0.04-0.54 [facility] Comment on above: Performed By: #### C BCD1 #### [facility] 1 [place], [place] [address] Eosinophils/100 WBC (Bld) 0.1 % Normal [facility] Comment on above: Performed By: #### C BCD1 #### [facility] 1 [place], [place] [address] Erythrocyte distribution width (RBC) [Ratio] 14.8 % High 11.6-14.4 [facility] Comment on above: Performed By: #### C BCD1 #### [facility] 1 [place], [place] [address] Hematocrit (Bld) [Volume fraction] 42.9 % Normal 40.1-51.0 [facility] Comment on above: Performed By: #### C BCD1 #### [facility] 1 [place], [place] [address] Hemoglobin (Bld) [Mass/Vol] 13.7 g/dL Normal 13.7-17.5 [facility] Comment on above: Performed By: #### C BCD1 #### [facility] 1 [place], [place] [address] Immature Grans 0.40 % Normal [facility] Comment on above: Performed By: #### C BCD1 #### [facility] 1 [place], [place] [address] Lymphocytes (Bld) [#/Vol] 0.46 thou/cmm Low 0.84-2.85 [facility] Comment on above: Performed By: #### C BCD1 #### [facility] [address] [place], [place] [address] Lymphocytes/100 WBC (Bld) 6.3 % Normal [facility] Comment on above: Performed By: #### C BCD1 #### [facility] 1 [place], [place] [address] MCH (RBC) [Entitic mass] 29.2 pg Normal 25.7-32.2 [facility] Comment on above: Performed By: #### C BCD1 #### [facility] 1 [place], [place] [address] MCHC (RBC) [Mass/Vol] 31.9 % Low 32.3-36.5 [facility] Comment on above: Performed By: #### C BCD1 #### [facility] [address] [place] [address] MCV (RBC) [Entitic vol] 91.5 fL Normal 83.2-95.6 [facility] Comment on above: Performed By: #### C BCD1 #### [facility] [address] [place] [address] Monocytes/100 WBC (Bld) 7.3 % Normal [facility] Comment on above: Performed By: #### C BCD1 #### [facility] [address] [place] [address] Platelet mean volume (Bld) [Entitic vol] 10.7 fL Normal 8.7-12.0 [facility] Comment on above: Performed By: #### C BCD1 #### [facility] 1 [place], [place] [address] Platelets (Bld) [#/Vol] 109 thou/cmm Low 141-365 [facility] Comment on above: Result Comment: ea r scanned tech agrees with platelet count Performed By: #### C BCD1 #### [facility] [address] [place] [address] RBC (Bld) [#/Vol] 4.69 mil/cmm Normal 4.63-6.08 [facility] Comment on above: Performed By: #### C BCD1 #### [facility] [address] [place] [address] RDW SD 49.7 fl High 36.1-45.8 [facility] Comment on above: Performed By: #### C BCD1 #### [facility] 1 [place], [place] [address] Seg Neutrophil 85.8 % Normal [facility] Comment on above: Performed By: #### C BCD1 #### [facility] [address] [place], [place] [address] WBC (Bld) [#/Vol] 7.31 thou/cmm Normal 4.23-9.07 [facility] Comment on above: Performed By: #### C BCD1 #### [facility] 1 [place] [id number] Hgb A1con 10-31-2019 HbA1c (Bld) [Mass fraction] 217 mg/dL Normal [facility] Comment on above: Performed By: #### H A1C #### [facility] [address] [place] [address] HbA1c (Bld) [Mass fraction] 9.2 % High 4.0-5.6 [facility] Comment on above: Result Comment: [place] Diabetes Association guidelines indicate that the patients with HgA1c in the range 5.7 ? 6.4% are at increased risk for development of diabetes, and intervention by lifestyle modification may be beneficial. HgA1c greater or equal to 6.5% is considered diagnostic of diabetes. Performed By: #### H A1C #### [facility] 1 [place] [id number] MRI CERVICAL SPINE WO IVCONo n 10-31-2019 MRI CERVICAL SPINE WO IVCON * * *Final Report* * * DATE OF EXAM: Oct 31 2019 1:13PM [facility] 0297 - MRI CERVICAL SPINE WO IVCON / PROCEDURE REASON: C-spine stenosis * * * * Physician Interpretation * * * * EXAMINATION: MRI CERVICAL SPINE WO IVCON CLINICAL HISTORY: Difficulty ambulating. Leg weakness. TECHNIQUE: Routine cervical spine MR protocol without gadolinium. MQ: [id number] COMPARISON: CT cervical spine 10/31/2019 RESULT: Counting reference: Craniocervical junction. Anatomic Variants: None. Alignment: Alignment is anatomic. Craniocervical junction: Craniocervical junction is normal. Cord: The visualized cord is within normal limits of signal intensity and morphology. Bone marrow signal/fracture: No evidence of pathologic marrow infiltration. No evidence of prior fracture. Cervical soft tissues: The paraspinal soft tissues are within normal limits. C2-C3: No central canal stenosis or foraminal narrowing. C3-C4: No central canal stenosis. Mild right foraminal narrowing due to uncovertebral spurring. Left foramen is not narrowed. C4-C5: No central canal stenosis or foraminal narrowing. C5-C6: Degenerative disc disease noted with disc height loss, endplate spurring and degenerative endplate marrow signal change. Posterior disc-osteophyte complex flattens the ventral cord causing moderate central canal stenosis. Mild bilateral foraminal narrowing due to mild uncovertebral hypertrophy. C6-C7: Degenerative disc disease. Posterior disc bulging slightly flattens the ventral thecal sac causing minimal central canal stenosis. No foraminal narrowing. C7-T1: No central canal stenosis or foraminal narrowing. IMPRESSION: 1. Mild right foraminal narrowing at C3-4 due to uncovertebral spurring. 2. Degenerative disc disease at C5-6. Posterior disc-osteophyte complex at this level causes moderate central canal stenosis flattening the ventral cord. Mild bilateral foraminal narrowing at this level due to mild uncovertebral hypertrophy. 3. Degenerative disc disease at C6-7 with minimal central canal stenosis due to posterior disc bulging. Anatomic Variant: None. Assume 7 cervical vertebrae with counting from the craniocervical junction. Cna Hha: JOSE GUADALUPE Transcribe Date/Time: Oct 31 2019 1:21P Dictated by : DIONISIO FIELD MD This examination was interpreted and the report reviewed and electronically signed by: DIONISIO FIELD MD on Oct 31 2019 1:27PM EST Normal [facility] Urine Drug Screenon 10-31-19 20 Urine Alcohol <11 Normal 0-11 [facility] Comment on above: Performed By: #### U DRG3 #### [facility] [address] [place], [place] [address] Urine Amphetamine Negative Normal NEGATIVE [facility] Comment on above: Performed By: #### U DRG3 #### [facility] [address] [place], [place] [address] Urine Barbiturates Negative Normal NEGATIVE [facility] Comment on above: Performed By: #### U DRG3 #### [facility] [address] [place], [place] [address] Urine Benzodiazepine Negative Normal NEGATIVE [facility] Comment on above: Performed By: #### U DRG3 #### [facility] [address] [place], [place] [address] Urine Cocaine Metab Negative Normal NEGATIVE [facility] Comment on above: Performed By: #### U DRG3 #### [facility] [address] [place], [place] [address] Urine Opiates see below Abnormal NEGATIVE [facility] Comment on above: Result Comment: PRES UMPTIVE POSITIVE Performed By: #### U DRG3 #### [facility] [address] [place] [address] Urine Oxycodone see below Abnormal NEGATIVE [facility] Comment on above: Result Comment: PRES UMPTIVE POSITIVE Performed By: #### U DRG3 #### [facility] [address] [place], [place] [address] Urine PCP Negative Normal NEGATIVE [facility] Comment on above: Result Comment: Test Cutoff Unit Amphetamines 1000 ng/mL Barbiturates 200 ng/mL Benzodiazepines 200 ng/mL Cannabinoids 50 ng/mL Cocaine 300 ng/mL Opiates 300 ng/mL Oxycodone 100 ng/mL Phencyclidine 25 ng/mL Reference Range: Negative at cutoff threshold Immunoassay screen only. Cross reactivity with other substances can occur with immunoassay screening. Detection of any drug(s) in this urine toxicology panel is presumptive only. These tests are for medical purposes only and should not be used for compliance monitoring, legal, or forensic use. In clinical settings, confirmatory testing is at the practitioner?s discretion.1 If clinically indicated, confirmation by high specificity, quantitative methodology may be requested on the same specimen through the laboratory at ([phone]) if contacted within 48 hours of initial 1. Substance Abuse and Mental Health Services Administration (2012). Clinical Drug Testing in Primary Care Technical Assistance Publication Series 32. Department of Health and Human Services, [place], p.10. Performed By: #### U DRG3 #### [facility] [address] [place], [place] [address] Urine THC see below Abnormal NEGATIVE [facility] Comment on above: Result Comment: PRES UMPTIVE POSITIVE Performed By: #### U DRG3 #### [facility] [address] [place], [place] [address] MR SHOULDER RIGHT WITHOUT CO NTRASTon 08-03-2019 MR SHOULDER RIGHT WITHOUT CONTRAST EXAMINATION: MRI RIGHT SHOULDER 08/03/2019 HISTORY: ORDERING SYSTEM PROVIDED HISTORY: Strain of right shoulder, initial encounter, TECHNOLOGIST PROVIDED HISTORY: Injury/Trauma Reason for exam: Strain of right shoulder, initial encounter Encounter Type: Initial Mechanism of injury: arm strain ORDERING SYSTEM PROVIDED DIAGNOSIS CODES: S46.911A Strain of right shoulder, initial encounter COMPARISON: None. TECHNIQUE: Coronal oblique T1, proton density, T2 fat-saturated images, sagittal proton density, T2, STIR, and axial proton density fat-saturated images of the right shoulder were obtained without contrast. FINDINGS: Multiple images are degraded by motion artifact. ACROMIOCLAVICULAR JOINT AND ROTATOR CUFF OUTLET: There are mild degenerative changes of the acromioclavicular joint with subacromial fat effacement. There is lateral downslope of the acromion and there appears to be a small subacromial enthesophyte causing mild narrowing of the rotator cuff outlet. There is a type I acromion. There is a small amount of edemalike signal in the subacromial/subdeltoid space. ROTATOR CUFF: There appears to be moderate tendinopathy of the supraspinatus and infraspinatus tendon. There is also evidence of a probable high-grade, partial-thickness tear of the articular surface of the distal 1.7 cm of the supraspinatus tendon involving greater than 50% of tendon thickness as best seen on the coronal T2 fat saturated sequence. There also appears to be severe tendinopathy of the subscapularis tendon with a moderate-grade, partial-thickness tear of the articular surface of the distal 1.5 cm of the tendon at its insertion. There is no atrophy of the rotator cuff musculature. BICEPS TENDON AND LABRUM: The long bicipital tendon appears grossly intact and located within the bicipital groove. There is a complex tear of the entire labrum. GLENOHUMERAL JOINT: There are severe degenerative changes of the glenohumeral joint with a [id number] appearance and marginal osteophytes. There is subchondral cystic change throughout the glenoid. No significant decrease in glenoid bone stock is seen. There is no significant joint effusion. BONES: The bone marrow signal intensity is age-appropriate. IMPRESSION: 1. Severe, end-stage osteoarthritis of the glenohumeral joint without significant decrease in glenoid bone stock. 2. There appears to be moderate tendinopathy of the supraspinatus and infraspinatus tendon with a probable high-grade, partial-thickness tear of the articular surface of the distal supraspinatus tendon. 3. Severe tendinopathy and probable moderate-grade, partial-thickness tear of the articular surface of the subscapularis tendon. 4. Mild acromioclavicular joint osteoarthritis, lateral downslope of the acromion and subacromial enthesophyte causing mild narrowing of the rotator cuff outlet. 5. Probable mild subacromial/subdeltoid bursitis. DWTosin/arlyn Workstation ID: [id number] Dictated by: LILIAN MANUEL on WedAug 04, 2019 9:22:41 AM EST Transcribed by: SANDY MEYER on WedAug 04, 2019 9:38:15 AM EST Finalized by: LILIAN MANUEL on WedAug 04, 2019 12:06:14 PM EST Normal [facility] Comment on above: Order Comment: [facility] Injury/Trauma or Illness?:Injury/Trauma How long have you had these symptoms (acute/chronic)?:Acute Reason for exam?:Strain of right shoulder, initial encounter Type of Exam?:Initial Mechanism of injury?:arm strain No Panel Information [facility] Vital Signs Date Time Vital Sign Value Performing Clinician Facility 03-01-2025 09:30-0400 Body height 195.[address] Angelic Monsalve MD Work Phone: [facility] 03-01-2025 09:30-0400 Body mass index (BMI) [Ratio] 43.4 kg/m2 Dr. Angelic Monsalve MD Work Phone: [facility] 03-01-2025 09:30-0400 Body temperature 97.7 [degF] Dr. Angelic Monsalve MD Work Phone: [facility] 03-01-2025 09:30-0400 Body weight 166.[address] Angelic Monsalve MD Work Phone: [facility] 03-01-2025 09:30-0400 Diastolic blood pressure 55 mm[Hg] Dr. Angelic Monsalve MD Work Phone: [facility] 03-01-2025 09:30-0400 Heart rate 79 /min Dr. Angelic Monsalve MD Work Phone: [facility] 03-01-2025 09:30-0400 Respiratory rate 16 /min Dr. Angelic Monsalve MD Work Phone: 3(352)843-174779 [place] [address] 03-01-2025 09:30-0400 SaO2% (BldA) [Mass fraction] 96 % Dr. Angelic Monsalve MD Work Phone: 9(389)519-176176 [place] [address] 03-01-2025 09:30-0400 Systolic blood pressure 131 mm[Hg] Dr. Angelic Monsalve MD Work Phone: 0(515)859-459576 [place] [address] 02-22-2025 11:44-0400 Body height 195.[address] Angelic Monsalve MD Work Phone: 3(918)701-363676 [place] [address] 02-22-2025 11:44-0400 Body mass index (BMI) [Ratio] 43.4 kg/m2 Dr. Angelic Monsalve MD Work Phone: 4(427)916-905876 [place] [address] 02-22-2025 11:44-0400 Body temperature 98.5 [degF] Dr. Angelic Monsalve MD Work Phone: 9(502)829-777976 [place] [address] 02-22-2025 11:44-0400 Body weight 166.[address] Angelic Monsalve MD Work Phone: 6(973)918-886822 [address] 02-22-2025 11:44-0400 Diastolic blood pressure 68 mm[Hg] Dr. Angelic Monsalve MD Work Phone: 2(409)974-499822 [address] 02-22-2025 11:44-0400 Heart rate 77 /min Dr. Angelic Monsalve MD Work Phone: 5(548)942-991776 [place] [address] 02-22-2025 11:44-0400 Respiratory rate 18 /min Dr. Angelic Monsalve MD Work Phone: 5(650)328-181022 [address] 02-22-2025 11:44-0400 SaO2% (BldA) [Mass fraction] 93 % Dr. Angelic Monsalve MD Work Phone: [facility] 02-22-2025 11:44-0400 Systolic blood pressure 136 mm[Hg] Dr. Angelic Monsalve MD Work Phone: [facility] 02-21-2025 13:19-0400 Body height 195.[address] Angelic Monsalve MD Work Phone: 4(619)209-518779 [place] [address] 02-21-2025 13:19-0400 Body mass index (BMI) [Ratio] 43.5 kg/m2 Dr. Angelic Monsalve MD Work Phone: 7(211)381-220822 [address] 02-21-2025 13:19-0400 Body temperature 97.4 [degF] Dr. Angelic Monsalve MD Work Phone: 5(083)778-919222 [address] 02-21-2025 13:19-0400 Body weight 166.[address] Angelic Monsalve MD Work Phone: 0(609)584-228579 [place] [address] 02-21-2025 13:19-0400 Diastolic blood pressure 78 mm[Hg] Dr. Angelic Monsalve MD Work Phone: 6(972)154-859579 [place] [address] 02-21-2025 13:19-0400 Heart rate 93 /min Dr. Angelic Monsalve MD Work Phone: 9(005)443-041979 [place] [address] 02-21-2025 13:19-0400 Respiratory rate 20 /min Dr. Angelic Monsalve MD Work Phone: [facility] 02-21-2025 13:19-0400 SaO2% (BldA) [Mass fraction] 96 % Dr. Angelic Monsalve MD Work Phone: [facility] 02-21-2025 13:19-0400 Systolic blood pressure 151 mm[Hg] Dr. Angelic Monsalve MD Work Phone: [facility] 02-19-2025 10:09-0400 Diastolic blood pressure 62 mm[Hg] Dr. Angelic Monsalve MD Work Phone: [facility] 02-19-2025 10:09-0400 Heart rate 85 /min Dr. Angelic Monsalve MD Work Phone: [facility] 02-19-2025 10:09-0400 Respiratory rate 16 /min Dr. Angelic Monsalve MD Work Phone: [facility] 02-19-2025 10:09-0400 Systolic blood pressure 146 mm[Hg] Dr. Angelic Monsalve MD Work Phone: [facility] 02-19-2025 10:04-0400 Body temperature 96.9 [degF] Dr. Angelic Monsalve MD Work Phone: [facility] 02-19-2025 10:04-0400 SaO2% (BldA) [Mass fraction] 99 % Dr. Angelic Monsalve MD Work Phone: [facility] 02-14-2025 14:46-0400 Body temperature 99 [degF] Dr. Angelic Monsalve MD Work Phone: [facility] 02-14-2025 14:46-0400 Diastolic blood pressure 75 mm[Hg] Dr. Angelic Monsalve MD Work Phone: [facility] 02-14-2025 14:46-0400 Heart rate 92 /min Dr. Angelic Monsalve MD Work Phone: [facility] 02-14-2025 14:46-0400 Respiratory rate 16 /min Dr. Angelic Monsalve MD Work Phone: [facility] 02-14-2025 14:46-0400 SaO2% (BldA) [Mass fraction] 95 % Dr. Angeilc Monsalve MD Work Phone: [facility] 02-14-2025 14:46-0400 Systolic blood pressure 154 mm[Hg] Dr. Angelic Monsalve MD Work Phone: [facility] 02-14-2025 11:57-0400 Body height 196.[address] Angelic Monsalve MD Work Phone: [facility] 02-14-2025 11:57-0400 Body mass index (BMI) [Ratio] 42.5 kg/m2 Dr. Angelic Monsalve MD Work Phone: [facility] 02-14-2025 11:57-0400 Body weight [address] Angelic Monsalve MD Work Phone: [facility] 02-12-2025 10:01-0400 Body mass index (BMI) [Ratio] 40.3 kg/m2 Dr. Angelic Monsalve MD Work Phone: [facility] 02-12-2025 10:01-0400 Body temperature 97.3 [degF] Dr. Angelic Monsalve MD Work Phone: 3(652)069-671579 [place] [address] 02-12-2025 10:01-0400 Body weight 154.[address] Angelic Monsalve MD Work Phone: 3(005)655-414479 [place] [address] 02-12-2025 10:01-0400 Diastolic blood pressure 68 mm[Hg] Dr. Angelic Monsalve MD Work Phone: [facility] 02-12-2025 10:01-0400 Heart rate 87 /min Dr. Angelic Monsalve MD Work Phone: 4(815)969-427179 [place] [address] 02-12-2025 10:01-0400 Respiratory rate 16 /min Dr. Angelic Monsalve MD Work Phone: [facility] 02-12-2025 10:01-0400 SaO2% (BldA) [Mass fraction] 95 % Dr. Angelic Monsalve MD Work Phone: [facility] 02-12-2025 10:01-0400 Systolic blood pressure 153 mm[Hg] Dr. Angelic Monsalve MD Work Phone: [facility] 01-15-2025 10:49-0400 Body height 195.[address] Angleic Monsalve MD Work Phone: [facility] 01-15-2025 10:49-0400 Body mass index (BMI) [Ratio] 41.8 kg/m2 Dr. Angelic Monsalve MD Work Phone: [facility] 01-15-2025 10:49-0400 Body temperature 96.3 [degF] Dr. Angelic Monsalve MD Work Phone: [facility] 01-15-2025 10:49-0400 Body weight 160.[address] Angelic Monsalve MD Work Phone: [facility] 01-15-2025 10:49-0400 Diastolic blood pressure 68 mm[Hg] Dr. Angelic Monsalve MD Work Phone: [facility] 01-15-2025 10:49-0400 Heart rate 85 /min Dr. Angelic Monsalve MD Work Phone: 5(231)873-463622 [address] 01-15-2025 10:49-0400 Respiratory rate 15 /min Dr. Angelic Monsalve MD Work Phone: 8(357)257-389422 [address] 01-15-2025 10:49-0400 SaO2% (BldA) [Mass fraction] 93 % Dr. Angelic Monsalve MD Work Phone: [facility] 01-15-2025 10:49-0400 Systolic blood pressure 138 mm[Hg] Dr. Angelic Monsalve MD Work Phone: 6(924)986-127322 [address] 01-11-2025 09:52-0400 Body mass index (BMI) [Ratio] 40.3 kg/m2 Dr. Angelic Monsalve MD Work Phone: [facility] 01-11-2025 09:52-0400 Body temperature 96 [degF] Dr. Angelic Monsalve MD Work Phone: [facility] 01-11-2025 09:52-0400 Diastolic blood pressure 62 mm[Hg] Dr. Angelic Monsalve MD Work Phone: [facility] 01-11-2025 09:52-0400 Heart rate 72 /min Dr. Angelic Monsalve MD Work Phone: [facility] 01-11-2025 09:52-0400 Respiratory rate 16 /min Dr. Angelic Monsalve MD Work Phone: 6(376)665-339979 [place] [address] 01-11-2025 09:52-0400 SaO2% (BldA) [Mass fraction] 97 % Dr. Angelic Monsalve MD Work Phone: 7(601)631-425276 [place] [address] 01-11-2025 09:52-0400 Systolic blood pressure 138 mm[Hg] Dr. Angelic Monsalve MD Work Phone: 2(947)085-295176 [place] [address] 12-25-2024 10:52-0400 Body temperature 97.6 [degF] Dr. Angelic Monsalve MD Work Phone: 1(498)224-649776 [place] [address] 12-25-2024 10:52-0400 Diastolic blood pressure 64 mm[Hg] Dr. Angelic Monsalve MD Work Phone: 8(462)436-831676 [place] [address] 12-25-2024 10:52-0400 Heart rate 77 /min Dr. Angelic Monsalve MD Work Phone: 7(674)245-511076 [place] [address] 12-25-2024 10:52-0400 Respiratory rate 16 /min Dr. Angelic Monsalve MD Work Phone: 8(250)517-882376 [place] [address] 12-25-2024 10:52-0400 Systolic blood pressure 142 mm[Hg] Dr. Angelic Monsalve MD Work Phone: 0(943)851-871076 [place] [address] 12-25-2024 09:50-0400 Body height 195.[address] Angelic Monsalve MD Work Phone: 3(702)173-206176 [place] [address] 12-25-2024 09:50-0400 SaO2% (BldA) [Mass fraction] 97 % Dr. Angelic Monsalve MD Work Phone: 6(900)952-124976 [place] [address] 12-22-2024 09:42-0400 Body mass index (BMI) [Ratio] 41.1 kg/m2 Dr. Angelic Mosnalve MD Work Phone: 0(156)965-246876 [place] [address] 12-22-2024 09:42-0400 Body weight 157.[address] Angelic Monsalve MD Work Phone: 4(904)437-340876 [place] [address] 12-21-2024 11:01-0400 Body height 195.[address] Angelic Monsalve MD Work Phone: [facility] 12-21-2024 11:01-0400 Body mass index (BMI) [Ratio] 41.1 kg/m2 Dr. Angelic Monsalve MD Work Phone: [facility] 12-21-2024 11:01-0400 Body temperature 98.2 [degF] Dr. Angelic Monsalve MD Work Phone: 2(544)245-014276 [place] [address] 12-21-2024 11:01-0400 Body weight 157.[address] Angelic Monsalve MD Work Phone: 2(659)971-898476 [place] [address] 12-21-2024 11:01-0400 Diastolic blood pressure 77 mm[Hg] Dr. Angelic Monsalve MD Work Phone: 0(608)279-892476 [place] [address] 12-21-2024 11:01-0400 Heart rate 72 /min Dr. Angelic Monsalve MD Work Phone: 7(526)340-239376 [place] [address] 12-21-2024 11:01-0400 Respiratory rate 16 /min Dr. Angelic Monsalve MD Work Phone: 0(505)734-977376 [place] [address] 12-21-2024 11:01-0400 SaO2% (BldA) [Mass fraction] 96 % Dr. Angelic Monsalve MD Work Phone: 0(268)454-923422 [address] 12-21-2024 11:01-0400 Systolic blood pressure 148 mm[Hg] Dr. Angelic Monsalve MD Work Phone: 5(043)698-220579 [place] [address] 12-18-2024 09:23-0400 Body temperature 96 [degF] Dr. Angelic Monsalve MD Work Phone: 5(849)734-012022 [address] 12-18-2024 09:23-0400 Diastolic blood pressure 60 mm[Hg] Dr. Angelic Monsalve MD Work Phone: 6(590)677-208479 [place] [address] 12-18-2024 09:23-0400 Heart rate 85 /min Dr. Angelic Monsalve MD Work Phone: 7(451)625-521079 [place] [address] 12-18-2024 09:23-0400 Respiratory rate 16 /min Dr. Angelic Monsalve MD Work Phone: [facility] 12-18-2024 09:23-0400 SaO2% (BldA) [Mass fraction] 93 % Dr. Angelic Monsalve MD Work Phone: [facility] 12-18-2024 09:23-0400 Systolic blood pressure 137 mm[Hg] Dr. Angelic Monsalve MD Work Phone: [facility] 12-14-2024 09:30-0400 Body mass index (BMI) [Ratio] 39.7 kg/m2 Dr. Angelic Monsalve MD Work Phone: [facility] 12-07-2024 07:56-0400 Body mass index (BMI) [Ratio] 40.8 kg/m2 Dr. Angelic Monsalve MD Work Phone: [facility] 12-07-2024 07:56-0400 Body temperature 97.5 [degF] Dr. Angelic Monsalve MD Work Phone: [facility] 12-07-2024 07:56-0400 Body weight 156.[address] Angelic Monsalve MD Work Phone: [facility] 12-07-2024 07:56-0400 Diastolic blood pressure 69 mm[Hg] Dr. Angelic Monsalve MD Work Phone: [facility] 12-07-2024 07:56-0400 Heart rate 79 /min Dr. Angelic Monsalve MD Work Phone: [facility] 12-07-2024 07:56-0400 Respiratory rate 16 /min Dr. Angelic Monsalve MD Work Phone: [facility] 12-07-2024 07:56-0400 SaO2% (BldA) [Mass fraction] 79 % Dr. Angelic Monsalve MD Work Phone: [facility] 12-07-2024 07:56-0400 Systolic blood pressure 129 mm[Hg] Dr. Angelic Monsalve MD Work Phone: [facility] 12-05-2024 10:38-0400 Body height 195.[address] Angelic Monsalve MD Work Phone: [facility] 12-05-2024 10:38-0400 Body mass index (BMI) [Ratio] 39.7 kg/m2 Dr. Angelic Monsalve MD Work Phone: 5(627)286-915179 [place] [address] 12-05-2024 10:38-0400 Body temperature 96.7 [degF] Dr. Angelic Monsalve MD Work Phone: 8(543)322-024222 [address] 12-05-2024 10:38-0400 Body weight 151.[address] Angelic Monsalve MD Work Phone: 0(105)969-248476 [place] [address] 12-05-2024 10:38-0400 Diastolic blood pressure 64 mm[Hg] Dr. Angelic Monsalve MD Work Phone: 7(507)056-424679 [place] [address] 12-05-2024 10:38-0400 Heart rate 79 /min Dr. Angelic Monsalve MD Work Phone: 8(927)591-526279 [place] [address] 12-05-2024 10:38-0400 Respiratory rate 16 /min Dr. Angelic Monsalve MD Work Phone: 9(344)510-234676 [place] [address] 12-05-2024 10:38-0400 SaO2% (BldA) [Mass fraction] 98 % Dr. Angelic Monsalve MD Work Phone: 9(987)775-991679 [place] [address] 12-05-2024 10:38-0400 Systolic blood pressure 131 mm[Hg] Dr. Angelic Monsalve MD Work Phone: [facility] 11-16-2024 11:31-0400 Body mass index (BMI) [Ratio] 45.7 kg/m2 Dr. Angelic Monsalve MD Work Phone: 4(091)292-550279 [place] [address] 11-16-2024 11:31-0400 Body temperature 98.6 [degF] Dr. Angelic Monsalve MD Work Phone: 0(767)933-290179 [place] [address] 11-16-2024 11:31-0400 Body weight 153.[address] Angelic Monsalve MD Work Phone: [facility] 11-16-2024 11:31-0400 Diastolic blood pressure 72 mm[Hg] Dr. Angelic Monsalve MD Work Phone: [facility] 11-16-2024 11:31-0400 Heart rate 78 /min Dr. Angelic Monsalve MD Work Phone: [facility] 11-16-2024 11:31-0400 Respiratory rate 16 /min Dr. Angelic Monsalve MD Work Phone: [facility] 11-16-2024 11:31-0400 SaO2% (BldA) [Mass fraction] 95 % Dr. Angelic Monsalve MD Work Phone: 3(446)960-276379 [place] [address] 11-16-2024 11:31-0400 Systolic blood pressure 129 mm[Hg] Dr. Angelic Monsalve MD Work Phone: 7(837)033-487679 [place] [address] 10-19-2024 11:14-0400 Body mass index (BMI) [Ratio] 39.8 kg/m2 Dr. Angelic Monsalve MD Work Phone: 1(048)213-433379 [place] [address] 10-19-2024 11:14-0400 Body temperature 97.9 [degF] Dr. Agnelic Monsalve MD Work Phone: [facility] 10-19-2024 11:14-0400 Body weight 156.[address] Angelic Monsalve MD Work Phone: [facility] 10-19-2024 11:14-0400 Diastolic blood pressure 71 mm[Hg] Dr. Angelic Monsalve MD Work Phone: [facility] 10-19-2024 11:14-0400 Heart rate 88 /min Dr. Angelic Monsalve MD Work Phone: [facility] 10-19-2024 11:14-0400 Respiratory rate 16 /min Dr. Angelic Monsalve MD Work Phone: [facility] 10-19-2024 11:14-0400 SaO2% (BldA) [Mass fraction] 94 % Dr. Angelic Monsalve MD Work Phone: [facility] 10-19-2024 11:14-0400 Systolic blood pressure 115 mm[Hg] Dr. Angelic Monsalve MD Work Phone: [facility] 10-05-2024 09:28-0400 Body height 198.[address] Angelic Monsalve MD Work Phone: 0(988)345-585176 [place] [address] 10-05-2024 09:28-0400 Body mass index (BMI) [Ratio] 38.7 kg/m2 Dr. Angelic Monsalve MD Work Phone: 0(341)651-401576 [place] [address] 10-05-2024 09:28-0400 Body temperature 97.1 [degF] Dr. Angelic Monsalve MD Work Phone: 7(201)767-726422 [address] 10-05-2024 09:28-0400 Body weight 152.[address] Angelic Monsalve MD Work Phone: 3(448)100-470522 [address] 10-05-2024 09:28-0400 Diastolic blood pressure 66 mm[Hg] Dr. Angelic Monsalve MD Work Phone: 5(372)868-166722 [address] 10-05-2024 09:28-0400 Heart rate 92 /min Dr. Angelic Monsalve MD Work Phone: 0(707)975-610722 [address] 10-05-2024 09:28-0400 Respiratory rate 16 /min Dr. Angelic Monsalve MD Work Phone: 5(272)446-198879 [place] [address] 10-05-2024 09:28-0400 SaO2% (BldA) [Mass fraction] 96 % Dr. Angelic Monsalve MD Work Phone: 9(497)906-608879 [place] [address] 10-05-2024 09:28-0400 Systolic blood pressure 157 mm[Hg] Dr. Angelic Monsalve MD Work Phone: 9(697)274-591679 [place] [address] 10-04-2024 17:18-0400 Body weight 147.[address] Angelic Monsalve MD Work Phone: 4(146)994-196679 [place] [address] 09-21-2024 11:11-0400 Body mass index (BMI) [Ratio] 39.7 kg/m2 Dr. Angelic Monsalve MD Work Phone: 8(244)051-907579 [place] [address] 09-21-2024 11:11-0400 Body temperature 98.3 [degF] Dr. Angelic Monsalve MD Work Phone: 7(210)770-748776 [place] [address] 09-21-2024 11:11-0400 Body weight 152.[address] Angelic Monsalve MD Work Phone: 1(042)350-511576 [place] [address] 09-21-2024 11:11-0400 Diastolic blood pressure 67 mm[Hg] Dr. Angelic Monsalve MD Work Phone: 1(281)510-035776 [place] [address] 09-21-2024 11:11-0400 Heart rate 81 /min Dr. Angelic Monsalve MD Work Phone: 5(363)775-048476 [place] [address] 09-21-2024 11:11-0400 Respiratory rate 16 /min Dr. Angelic Monsalve MD Work Phone: 6(854)841-439876 [place] [address] 09-21-2024 11:11-0400 SaO2% (BldA) [Mass fraction] 94 % Dr. Angelic Monsalve MD Work Phone: 6(604)156-424976 [place] [address] 09-21-2024 11:11-0400 Systolic blood pressure 118 mm[Hg] Dr. Angelic Monsalve MD Work Phone: 9(821)677-545576 [place] [address] 08-29-2024 11:02-0500 Body mass index (BMI) [Ratio] 38.7 kg/m2 Dr. Angelic Monsalve MD Work Phone: 2(235)973-310179 [place] [address] 08-29-2024 11:02-0500 Body temperature 97.4 [degF] Dr. Angelic Monsalve MD Work Phone: 7(432)100-974876 [place] [address] 08-29-2024 11:02-0500 Body weight 148.[address] Angelic Monsalve MD Work Phone: 7(751)115-477976 [place] [address] 08-29-2024 11:02-0500 Diastolic blood pressure 64 mm[Hg] Dr. Angelic Monsalve MD Work Phone: 4(746)326-763276 [place] [address] 08-29-2024 11:02-0500 Heart rate 72 /min Dr. Angelic Monsalve MD Work Phone: 1(736)948-920576 [place] [address] 08-29-2024 11:02-0500 Respiratory rate 20 /min Dr. Angelic Monsalve MD Work Phone: 0(656)065-463676 [place] [address] 08-29-2024 11:02-0500 SaO2% (BldA) [Mass fraction] 97 % Dr. Angelic Monsalve MD Work Phone: 0(280)522-118676 [place] [address] 08-29-2024 11:02-0500 Systolic blood pressure 147 mm[Hg] Dr. Angelic Monsalve MD Work Phone: 4(521)593-785676 [place] [address] 08-24-2024 10:26-0500 Body mass index (BMI) [Ratio] 38.2 kg/m2 Dr. Angelic Monsalve MD Work Phone: 6(499)077-417776 [place] [address] 08-24-2024 10:26-0500 Body temperature 98.2 [degF] Dr. Angelic Monsalve MD Work Phone: 7(498)321-310276 [place] [address] 08-24-2024 10:26-0500 Body weight 146.[address] Angelic Monsalve MD Work Phone: 9(409)410-094076 [place] [address] 08-24-2024 10:26-0500 Diastolic blood pressure 67 mm[Hg] Dr. Angelic Monsalve MD Work Phone: 5(685)330-249976 [place] [address] 08-24-2024 10:26-0500 Heart rate 96 /min Dr. Angelic Monsalve MD Work Phone: 9(459)395-873476 [place] [address] 08-24-2024 10:26-0500 Respiratory rate 16 /min Dr. Angelic Monsalve MD Work Phone: 1(656)266-473776 [place] [address] 08-24-2024 10:26-0500 SaO2% (BldA) [Mass fraction] 95 % Dr. Angelic Monsalve MD Work Phone: 3(734)083-342079 [place] [address] 08-24-2024 10:26-0500 Systolic blood pressure 123 mm[Hg] Dr. Angelic Monsalve MD Work Phone: 5(775)271-831779 [place] [address] 07-27-2024 11:34-0500 Body mass index (BMI) [Ratio] 37.9 kg/m2 Dr. Angelic Monsalve MD Work Phone: 9(057)456-844176 [place] [address] 07-27-2024 11:34-0500 Body temperature 97.6 [degF] Dr. Angelic Monsalve MD Work Phone: 1(047)118-344476 [place] [address] 07-27-2024 11:34-0500 Body weight 145.[address] Angelic Monsalve MD Work Phone: 6(338)927-017876 [place] [address] 07-27-2024 11:34-0500 Diastolic blood pressure 58 mm[Hg] Dr. Angelic Monsalve MD Work Phone: 5(213)671-915276 [place] [address] 07-27-2024 11:34-0500 Heart rate 77 /min Dr. Angelic Monsalve MD Work Phone: 9(769)533-629476 [place] [address] 07-27-2024 11:34-0500 Respiratory rate 16 /min Dr. Angelic Monsalve MD Work Phone: 2(018)754-832176 [place] [address] 07-27-2024 11:34-0500 SaO2% (BldA) [Mass fraction] 97 % Dr. Angelic Monsalve MD Work Phone: 2(488)460-255176 [place] [address] 07-27-2024 11:34-0500 Systolic blood pressure 105 mm[Hg] Dr. Angelic Monsalve MD Work Phone: 5(950)080-498076 [place] [address] 07-19-2024 10:39-0500 Body mass index (BMI) [Ratio] 38.1 kg/m2 Dr. Angelic Monsalve MD Work Phone: 1(737)732-222676 [place] [address] 07-19-2024 10:39-0500 Body temperature 98.3 [degF] Dr. Angelic Monsalve MD Work Phone: 7(049)583-649576 [place] [address] 07-19-2024 10:39-0500 Body weight 145.[address] Angelic Monsalve MD Work Phone: 1(239)202-333576 [place] [address] 07-19-2024 10:39-0500 Diastolic blood pressure 62 mm[Hg] Dr. Angelic Monsalve MD Work Phone: [facility] 07-19-2024 10:39-0500 Heart rate 86 /min Dr. Angelic Monsalve MD Work Phone: [facility] 07-19-2024 10:39-0500 Respiratory rate 16 /min Dr. Angelic Monsalve MD Work Phone: 9(822)077-877422 [address] 07-19-2024 10:39-0500 SaO2% (BldA) [Mass fraction] 95 % Dr. Angelic Monsalve MD Work Phone: 4(795)041-548322 [address] 07-19-2024 10:39-0500 Systolic blood pressure 100 mm[Hg] Dr. Angelic Monsalve MD Work Phone: 7(846)022-034176 [place] [address] 06-28-2024 10:19-0500 Diastolic blood pressure 61 mm[Hg] Dr. Angelic Monsalve MD Work Phone: 8(459)157-084479 [place] [address] 06-28-2024 10:19-0500 Heart rate 82 /min Dr. Angelic Monsalve MD Work Phone: 3(226)370-812522 [address] 06-28-2024 10:19-0500 Respiratory rate 14 /min Dr. Angelic Monsalve MD Work Phone: 9(214)713-626476 [place] [address] 06-28-2024 10:19-0500 SaO2% (BldA) [Mass fraction] 96 % Dr. Angelic Monsalve MD Work Phone: 8(370)064-138779 [place] [address] 06-28-2024 10:19-0500 Systolic blood pressure 147 mm[Hg] Dr. Angleic Monsalve MD Work Phone: 2(184)585-264776 [place] [address] 06-28-2024 09:49-0500 Inhaled oxygen flow rate 2 L/min Dr. Angelic Monsalve MD Work Phone: 1(144)005-997176 [place] [address] 06-28-2024 08:20-0500 Body mass index (BMI) [Ratio] 37.3 kg/m2 Dr. Angelic Monsalve MD Work Phone: 8(595)555-524179 [place] [address] 06-28-2024 08:20-0500 Body temperature 98.8 [degF] Dr. Angelic Monsalve MD Work Phone: [facility] 06-28-2024 08:20-0500 Body weight 142.[address] Angelic Monsalve MD Work Phone: [facility] 06-21-2024 08:55-0500 Body mass index (BMI) [Ratio] 37.5 kg/m2 Dr. Angelic Monsalve MD Work Phone: [facility] 06-21-2024 08:55-0500 Body temperature 98 [degF] Dr. Angelic Monsalve MD Work Phone: [facility] 06-21-2024 08:55-0500 Body weight 143.[address] Angelic Monsalve MD Work Phone: [facility] 06-21-2024 08:55-0500 Diastolic blood pressure 64 mm[Hg] Dr. Angelic Monsalve MD Work Phone: [facility] 06-21-2024 08:55-0500 Heart rate 98 /min Dr. Angelic Monsalve MD Work Phone: [facility] 06-21-2024 08:55-0500 Respiratory rate 16 /min Dr. Angelic Monsalve MD Work Phone: [facility] 06-21-2024 08:55-0500 SaO2% (BldA) [Mass fraction] 94 % Dr. Angelic Monsalve MD Work Phone: [facility] 06-21-2024 08:55-0500 Systolic blood pressure 104 mm[Hg] Dr. Angelic Monsalve MD Work Phone: [facility] 06-14-2024 13:51-0500 Body temperature 97.88 [degF] TAI GOODWIN APRN-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 [facility] 06-14-2024 13:51-0500 Diastolic Blood Pressure Non-Invasive 80 mm[Hg] TAI GOODWIN APRN-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 [facility] 06-14-2024 13:51-0500 Heart rate 72 /min TAI KAPPER 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 CLERK-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 [facility] 06-14-2024 13:51-0500 Reason For Taking VItal Signs TAI KAPPER 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 CLERK-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 [facility] 06-14-2024 13:51-0500 Respiratory rate 17 /min TAI KAPPER 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 CLERK-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 [facility] 06-14-2024 13:51-0500 Systolic Blood Pressure Non-Invasive 155 mm[Hg] TAI KAPPER 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 CLERK-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 [facility] 06-14-2024 08:58-0500 Heart rate 72 /min TAI KAPPER 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 CLERK-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 [facility] 06-14-2024 06:25-0500 Body temperature 97.88 [degF] TAI KAPPER 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 CLERK-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 [facility] 06-14-2024 06:25-0500 Diastolic Blood Pressure Non-Invasive 67 mm[Hg] ATI KAPPER 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 CLERK-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 [facility] 06-14-2024 06:25-0500 Heart rate 76 /min TAI KAPPER 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 CLERK-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 [facility] 06-14-2024 06:25-0500 Reason For Taking VItal Signs TAI KAPPER 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 CLERK-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 [facility] 06-14-2024 06:25-0500 Respiratory rate 17 /min TAI KAPPER 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 CLERK-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 [facility] 06-14-2024 06:25-0500 Systolic Blood Pressure Non-Invasive 132 mm[Hg] TAI KAPPER 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 CLERK-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 [facility] 06-14-2024 01:16-0500 Heart rate 74 /min TAI GOODENER 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 CLERK-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 [facility] 06-14-2024 01:16-0500 Respiratory rate 17 /min TAI BERKLEYER 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 CLERK-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 [facility] 06-13-2024 18:59-0500 Blood Pressure Method TAI GOODENER 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 CLERK-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 [facility] 06-13-2024 18:59-0500 Body temperature 98.6 [degF] TAI GOODENER 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 CLERK-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 [facility] 06-13-2024 18:59-0500 Diastolic Blood Pressure Non-Invasive 61 mm[Hg] TAI GOODENER 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 CLERK-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 [facility] 06-13-2024 18:59-0500 Heart rate 75 /min TAI KAPPER 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 CLERK-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 [facility] 06-13-2024 18:59-0500 Reason For Taking VItal Signs TAI GOODWIN 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 CLERK-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 [facility] 06-13-2024 18:59-0500 Systolic Blood Pressure Non-Invasive 137 mm[Hg] TAI GOODENER 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 CLERK-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 [facility] 06-13-2024 17:25-0500 Heart rate 76 /min TAI BERKLEYER 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 CLERK-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 [facility] 06-08-2024 21:04-0500 Heart rate 64 /min TAI KAPPER 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 CLERK-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 [facility] 06-08-2024 20:14-0500 Heart rate 71 /min TAI BERKLEYER 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 CLERK-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 [facility] 06-07-2024 19:39-0500 Heart rate 74 /min TAI KAPPER 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 CLERK-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 [facility] 06-02-2024 16:16-0500 Blood Pressure Cuff Size TAI KAPPER 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 CLERK-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 [facility] 06-02-2024 16:16-0500 Blood Pressure Location TAI KAPPER 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 CLERK-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 [facility] 06-02-2024 16:16-0500 Blood Pressure Method TAI KAPPER 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 CLERK-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 [facility] 06-02-2024 08:30-0500 Blood Pressure Cuff Size TAI KAPPER 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 CLERK-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 [facility] 06-02-2024 08:30-0500 Blood Pressure Location TAI KAPPER 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 CLERK-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 [facility] 06-02-2024 08:30-0500 Blood Pressure Method TAI KAPPER 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 CLERK-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 [facility] 06-02-2024 05:02-0500 Body weight 158.2 kg TAI KAPPER 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 CLERK-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 [facility] 06-01-2024 07:38-0500 Mean blood pressure 96 mm[Hg] TAI KAPPER 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 CLERK-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 [facility] 05-31-2024 14:30-0500 Blood Pressure Cuff Size TAI KAPPER 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 CLERK-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 [facility] 05-31-2024 14:30-0500 Blood Pressure Location TAI KAPPER 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 CLERK-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 [facility] 05-31-2024 12:43-0500 Body height 195.6 cm TAI GOODWIN 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 CLERK-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 [facility] 05-31-2024 12:43-0500 Body weight 163 kg TAI GOODWIN 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 CLERK-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 [facility] 05-31-2024 12:43-0500 Body weight 42.6 kg/m2 TAI GOODENJARON 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 CLERK-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 [facility] 11-18-2023 16:48-0400 Body temperature 98.6 [degF] Dr. Angelic Monsalve Work Phone: [facility] 11-18-2023 16:48-0400 Diastolic blood pressure 68 mm[Hg] Dr. Angelic Monsalve Work Phone: [facility] 11-18-2023 16:48-0400 Heart rate 82 /min Dr. Angelic Monsalve Work Phone: [facility] 11-18-2023 16:48-0400 Respiratory rate 16 /min Dr. Angelic Monsalve Work Phone: [facility] 11-18-2023 16:48-0400 SaO2% (BldA) [Mass fraction] 92 % Dr. Angelic Monsalve Work Phone: [facility] 11-18-2023 16:48-0400 Systolic blood pressure 135 mm[Hg] Dr. Angelic Monsalve Work Phone: [facility] 11-18-2023 11:38-0400 Body height 195.[address] Angelic Monsalve Work Phone: [facility] 11-18-2023 11:38-0400 Body mass index (BMI) [Ratio] 41 kg/m2 Dr. Angelic Monsalve Work Phone: [facility] 11-18-2023 11:38-0400 Body weight 156.[address] Angelic Monsalve Work Phone: [facility] 09-03-2023 16:10-0500 Body temperature 97.7 [degF] Dr. Angelic Monsalve Work Phone: [facility] 09-03-2023 16:10-0500 Diastolic blood pressure 68 mm[Hg] Dr. Angelic Monsalve Work Phone: [facility] 09-03-2023 16:10-0500 Heart rate 88 /min Dr. Angelic Monsalve Work Phone: [facility] 09-03-2023 16:10-0500 Respiratory rate 18 /min Dr. Angelic Monsalve Work Phone: [facility] 09-03-2023 16:10-0500 SaO2% (BldA) [Mass fraction] 93 % Dr. Angelic Monsalve Work Phone: [facility] 09-03-2023 16:10-0500 Systolic blood pressure 128 mm[Hg] Dr. Angelic Monsalve Work Phone: [facility] 09-03-2023 08:00-0500 Body temperature 98 [degF] Dr. Angelic Monsalve Work Phone: [facility] 09-03-2023 08:00-0500 Diastolic blood pressure 77 mm[Hg] Dr. Angelic Monsalve Work Phone: [facility] 09-03-2023 08:00-0500 Heart rate 92 /min Dr. Angelic Monsalve Work Phone: [facility] 09-03-2023 08:00-0500 Respiratory rate 17 /min Dr. Angelic Monsalve Work Phone: [facility] 09-03-2023 08:00-0500 SaO2% (BldA) [Mass fraction] 92 % Dr. Angelic Monsalve Work Phone: [facility] 09-03-2023 08:00-0500 Systolic blood pressure 132 mm[Hg] Dr. Angelic Monsalve Work Phone: [facility] 09-01-2023 15:22-0500 Body height 195.[address] Angelic Monsalve Work Phone: [facility] 09-01-2023 15:22-0500 Body weight [address] Angelic Monsalve Work Phone: [facility] 08-29-2023 10:00-0500 Inhaled oxygen flow rate 3 L/min Dr. Angelic Monsalve Work Phone: [facility] 08-25-2023 16:25-0500 Body mass index (BMI) [Ratio] 41.8 kg/m2 Dr. Angelic Monsalve Work Phone: [facility] 05-24-2023 11:36-0500 Diastolic Blood Pressure Non-Invasive [address] JONG MASON MD [facility] 05-24-2023 11:36-0500 Heart rate 85 /min DR JONG MASON MD [facility] 05-24-2023 11:36-0500 Respiratory rate 18 /min DR JONG MASON MD [facility] 05-24-2023 11:36-0500 Systolic Blood Pressure Non-Invasive [address] JONG MASON MD [facility] 05-24-2023 11:26-0500 Diastolic Blood Pressure Non-Invasive [address] JONG MASON MD [facility] 05-24-2023 11:26-0500 Heart rate 88 /min DR JONG MASON MD [facility] 05-24-2023 11:26-0500 Respiratory rate 14 /min DR JONG MASON MD [facility] 05-24-2023 11:26-0500 Systolic Blood Pressure Non-Invasive [address] JONG MASON MD [facility] 05-24-2023 11:20-0500 Diastolic Blood Pressure Non-Invasive [address] JONG MASON MD [facility] 05-24-2023 11:20-0500 Heart rate 86 /min DR JONG MASON MD [facility] 05-24-2023 11:20-0500 Respiratory Rate - Anes 16 br/min DR JONG MASON MD [facility] 05-24-2023 11:20-0500 Systolic Blood Pressure Non-Invasive [address] JONG MASON MD [facility] 05-24-2023 11:15-0500 Respiratory Rate - Anes 13 br/min DR JONG MASON MD [facility] 05-24-2023 11:10-0500 Respiratory Rate - Anes 0 br/min DR JONG MASON MD [facility] 05-24-2023 10:12-0500 Blood Pressure Cuff Size DR JONG MASON MD [facility] 05-24-2023 10:12-[address] JONG MASON MD [facility] 05-24-2023 10:12-[address] JONG MASON MD [facility] 05-24-2023 10:12-0500 Body height 195.[address] JONG MASON MD [facility] 05-24-2023 10:12-0500 Body temperature 98.24 [degF] DR JONG MASON MD [facility] 05-24-2023 10:12-0500 Body weight 154.[address] JONG MASON MD [facility] 05-24-2023 10:12-0500 Body weight 40.38 kg/m2 DR JONG MASON MD [facility] 05-24-2023 10:12-0500 Heart rate 81 /min DR JONG MASON MD [facility] 05-24-2023 10:12-0500 Respiratory rate 16 /min DR JONG MASON MD [facility] 02-09-2023 10:33-0400 Body height 195.58 cm [facility] 02-09-2023 10:33-0400 Body weight 157.12 kg [facility] 01-04-2023 11:35-0400 Body height 195.58 cm [facility] 01-04-2023 11:35-0400 Body weight 154.49 kg [facility] 03-24-2022 09:25-0400 Diastolic blood pressure 78 mm[Hg] Bradly Sanders MD Work Phone: [facility] 03-24-2022 09:25-0400 Heart rate 80 /min Bradly Sanders MD Work Phone: [facility] 03-24-2022 09:25-0400 Respiratory rate 14 /min Bradly Sanders MD Work Phone: [facility] 03-24-2022 09:25-0400 SaO2% (BldA) [Mass fraction] 93 % Bradly Sanders MD Work Phone: [facility] 03-24-2022 09:25-0400 Systolic blood pressure 142 mm[Hg] Bradly Sanders MD Work Phone: [facility] 03-24-2022 09:15-0400 Body temperature 97.9 [degF] Bradly Sanders MD Work Phone: [facility] 03-24-2022 07:07-0400 Body height 198.1 cm Bradly Sanders MD Work Phone: [facility] 03-24-2022 07:07-0400 Body weight 163.75 kg Bradly Sanders MD Work Phone: [facility] 03-23-2022 14:45-0400 Body height 195.[address] Angelic Monsalve Work Phone: [facility] Work Phone: 03-23-2022 14:45-0400 Body weight 152.[address] Angelic Monsalve Work Phone: [facility] Work Phone: 02-09-2022 00:43-0400 Body weight 161.[address] Angelic Monsalve Work Phone: [facility] Work Phone: 01-28-2022 17:58-0400 Body weight 161.[address] Angelic Monsalve Work Phone: [facility] Work Phone: 01-14-2022 08:42-0400 Body height 198.1 cm Bridget Benito 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 CLERK.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 Work Phone: [facility] 01-14-2022 08:42-0400 Body weight 163.93 kg Bridget Benito 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 CLERK.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 Work Phone: [facility] 01-14-2022 08:42-0400 Respiratory rate 18 /min Bridget Benito 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 CLERK.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 Work Phone: [facility] 09-02-2021 08:38-0500 Body height 195.58 cm No PCP None [facility] Work Phone: 09-02-2021 08:38-0500 Body mass index (BMI) [Ratio] 40.91 kg/m2 No PCP None [facility] Work Phone: 09-02-2021 08:38-0500 Body surface area Derived from formula 2.82 m2 No PCP None [facility] Work Phone: 09-02-2021 08:38-0500 Body weight 156.49 kg No PCP None [facility] Work Phone: 04-23-2021 11:25-0400 Body height 195.58 cm No PCP None [facility] Work Phone: 04-23-2021 11:25-0400 Body mass index (BMI) [Ratio] 40.94 kg/m2 No PCP None [facility] [address] Work Phone: 04-23-2021 11:25-0400 Body surface area Derived from formula 2.82 m2 No PCP None [facility] [address] Work Phone: 04-23-2021 11:25-0400 Body temperature 97.3 [degF] No PCP None [facility] [address] Work Phone: 04-23-2021 11:25-0400 Body weight 156.61 kg No PCP None [facility] Work Phone: 04-23-2021 11:25-0400 Diastolic blood pressure 85 mm[Hg] No PCP None [facility] Work Phone: 04-23-2021 11:25-0400 Heart rate 105 /min No PCP None [facility] Work Phone: 04-23-2021 11:25-0400 Systolic blood pressure 161 mm[Hg] No PCP None [facility] Work Phone: 03-20-2021 09:13-0400 Body height 195.58 cm No PCP None [facility] Work Phone: 03-20-2021 09:13-0400 Body mass index (BMI) [Ratio] 40.32 kg/m2 No PCP None [facility] Work Phone: 03-20-2021 09:13-0400 Body surface area Derived from formula 2.8 m2 No PCP None [facility] Work Phone: 03-20-2021 09:13-0400 Body temperature 97.3 [degF] No PCP None [facility] Work Phone: 03-20-2021 09:13-0400 Body weight 154.22 kg No PCP None [facility] Work Phone: 03-20-2021 09:13-0400 Diastolic blood pressure 68 mm[Hg] No PCP None [facility] Work Phone: 03-20-2021 09:13-0400 Systolic blood pressure 137 mm[Hg] No PCP None [facility] Work Phone: 02-25-2021 10:37-0400 Body height 195.58 cm No PCP None [facility] Work Phone: 02-25-2021 10:37-0400 Body mass index (BMI) [Ratio] 39.96 kg/m2 No PCP None [facility] Work Phone: 02-25-2021 10:37-0400 Body surface area Derived from formula 2.79 m2 No PCP None [facility] [address] Work Phone: 02-25-2021 10:37-0400 Body temperature 97.3 [degF] No PCP None [facility] Work Phone: 02-25-2021 10:37-0400 Body weight 152.86 kg No PCP None [facility] Work Phone: 08-17-2021 10:37-0400 Diastolic blood pressure 84 mm[Hg] No PCP None [facility] Work Phone: 02-25-2021 10:37-0400 Heart rate 86 /min No PCP None [facility] Work Phone: 02-25-2021 10:37-0400 Systolic blood pressure 137 mm[Hg] No PCP None [facility] Work Phone: 01-24-2021 11:46-0400 Body height 195.58 cm No PCP None [facility] Work Phone: 01-24-2021 11:46-0400 Body mass index (BMI) [Ratio] 38.94 kg/m2 No PCP None [facility] Work Phone: 01-24-2021 11:46-0400 Body surface area Derived from formula 2.76 m2 No PCP None [facility] Work Phone: 01-24-2021 11:46-0400 Body temperature 97.7 [degF] No PCP None [facility] Work Phone: 01-24-2021 11:46-0400 Body weight 148.95 kg No PCP None [facility] Work Phone: 01-24-2021 11:46-0400 Diastolic blood pressure 80 mm[Hg] No PCP None [facility] Work Phone: 01-24-2021 11:46-0400 Systolic blood pressure 132 mm[Hg] No PCP None [facility] Work Phone: 01-03-2021 11:11-0400 Body height 195.58 cm No PCP None [facility] Work Phone: 01-03-2021 11:11-0400 Body mass index (BMI) [Ratio] 38.21 kg/m2 No PCP [facility] Work Phone: 01-03-2021 11:11-0400 Body surface area Derived from formula 2.74 m2 No PCP None [facility] Work Phone: 01-03-2021 11:11-0400 Body temperature 97.8 [degF] No PCP None [facility] Work Phone: 01-03-2021 11:11-0400 Body weight 146.17 kg No PCP None [facility] Work Phone: 01-03-2021 11:11-0400 Diastolic blood pressure 90 mm[Hg] No PCP None [facility] Work Phone: 01-03-2021 11:11-0400 Systolic blood pressure 162 mm[Hg] No PCP None [facility] Work Phone: 12-03-2020 14:25-040 Body height 195.58 cm No PCP None [facility] 300 Work Phone: 12-03-2020 14:25-0400 Body mass index (BMI) [Ratio] 37.24 kg/m2 No PCP None [facility] 300 Work Phone: 12-03-2020 14:25-0400 Body surface area Derived from formula 2.71 m2 No PCP None [facility] Work Phone: 12-03-2020 14:25-040 Body temperature 96.9 [degF] No PCP None [facility] Work Phone: 12-03-2020 14:25-0400 Body weight 142.43 kg No PCP None [facility] Work Phone: 12-03-2020 14:25-0400 Diastolic blood pressure 88 mm[Hg] No PCP None [facility] 300 Work Phone: 12-03-2020 14:25-0400 Systolic blood pressure 150 mm[Hg] No PCP None [facility] 300 Work Phone: 11-22-2020 13:06-0400 Body height 195.58 cm Esther Valle [facility] Work Phone: 11-22-2020 13:06-0400 Body mass index (BMI) [Ratio] 36.88 kg/m2 Esther Valle [facility] Work Phone: 11-22-2020 13:06-0400 Body surface area Derived from formula 2.7 m2 Esther Valle [facility] Work Phone: 11-22-2020 13:06-0400 Body temperature 97.5 [degF] [facility] Work Phone: 11-22-2020 13:06-0400 Body weight 141.08 kg Esther Valle [facility] Work Phone: 11-22-2020 13:06-0400 Diastolic blood pressure 88 mm[Hg] Esther Valle [facility] Work Phone: 11-22-2020 13:06-0400 Systolic blood pressure 150 mm[Hg] [facility] Work Phone: 11-22-2020 11:06-0400 Body height 195.58 cm No PCP None [facility] 300 Work Phone: 11-22-2020 11:06-0400 Body mass index (BMI) [Ratio] 36.88 kg/m2 No PCP None [facility] 300 Work Phone: 11-22-2020 11:06-0400 Body surface area Derived from formula 2.7 m2 No PCP None -[facility] 300 Work Phone: 11-22-2020 11:06-0400 Body temperature 97.5 [degF] No PCP None -[facility] 300 Work Phone: 11-22-2020 11:06-0400 Body weight 141.08 kg No PCP None -[facility] 300 Work Phone: 11-22-2020 11:06-0400 Diastolic blood pressure 88 mm[Hg] No PCP None -[facility] 300 Work Phone: 11-22-2020 11:06-0400 Systolic blood pressure 150 mm[Hg] No PCP None [facility] 300 Work Phone: 10-25-2020 13:02-0400 Body height 195.58 cm Esther Valle DO [facility] 300 Work Phone: 10-25-2020 13:02-0400 Body mass index (BMI) [Ratio] 36.29 kg/m2 Esther Leonard MAGUIRE [facility] 300 Work Phone: 10-25-2020 13:02-0400 Body surface area Derived from formula 2.68 m2 Esther Leonard MAGUIRE [facility] 300 Work Phone: 10-25-2020 13:02-0400 Body temperature 97.3 [degF] Esther Valle DO [facility] 300 Work Phone: 10-25-2020 13:02-0400 Body weight 138.8 kg Esther Valle [facility] 300 Work Phone: 10-25-2020 13:02-0400 Diastolic blood pressure 83 mm[Hg] Esther Valle DO [facility] 300 Work Phone: 10-25-2020 13:02-0400 Systolic blood pressure 149 mm[Hg] Esther Valle DO [facility] 300 Work Phone: 11-30-2019 09:52-0400 BMI (Body Mass Index) 36.75 kg/m2 Hardy Dominguez [facility] 11-30-2019 09:52-0400 Body weight 144.24 kg Hardy Dominguez [facility] 11-30-2019 09:52-0400 Height 198.1 cm Hardy Dominguez [facility] Encounters Encounter Date Encounter Type Care Provider Facility Start: 03-06-2025 ambulatory Damian Cross Facility:[facility] Start: 03-05-2025 ambulatory Angelic Monsalve Facility: [facility] Start: 03-01-2025 Registered Recurring Cheri Patricia CHASER APPRENTICE-C -[facility] Start: 02-23-2025 End: 02-23-[address] Angelic Monsalve MD Work Phone: -[facility] Start: 02-23-2025 End: 02-23-[address] Dereck Willett MD -[facility] Start: 02-22-2025 End: 02-22-[address] Herbert Toussaint MD -[facility] Work Phone: Start: 02-22-2025 End: 02-23-[address] Angelic Monsalve MD Work Phone: -[facility] Start: 02-22-2025 Registered Recurring Cheri Patricia CHASER APPRENTICE-C -[facility] Start: 02-21-2025 End: 02-21-[address] Sammie Buck MD -[facility] Work Phone: Start: 02-21-2025 End: 02-21-[address] Angelic Monsalve MD Work Phone: -[facility] Start: 02-19-2025 Registered Recurring Cheri Patricia CHASER APPRENTICE-C -[facility] Start: 02-14-2025 Non-patient / Non-visit Josephine RICHARDSH-[facility] Start: 02-14-2025 End: 02-14-2025 Admission to same day surgery center Josephine Hawk -Endoscopy Work Phone: Start: 02-14-2025 End: 02-14-[address] Angelic Monsalve MD Work Phone: -Endoscopy Start: 02-12-2025 Registered Recurring Cheri Patricia CHASER APPRENTICE-C -[facility] Start: 01-15-2025 Registered Recurring Cheri Patricia CHASER APPRENTICE-C -[facility] Start: 01-15-2025 End: 01-15-[address] Herbert Toussaint MD -[facility] Work Phone: Start: 01-15-2025 End: 01-15-[address] Angelic Monsalve MD Work Phone: -[facility] Start: 12-26-2024 End: 12-26-2024 Patient encounter procedure Cleo MARQUEZ -[facility] Work Phone: Start: 12-26-2024 End: 12-26-[address] Angelic Monsalve MD Work Phone: [facility] Work Phone: Start: 12-25-2024 Registered Recurring Cheri Patricia CHASER APPRENTICE-C -[facility] Start: 12-21-2024 Registered Recurring Cheri Patricia CHASER APPRENTICE-C -[facility] Start: 12-21-2024 End: 12-21-[address] Herbert Toussaint MD -[facility] Work Phone: Start: 12-21-2024 End: 12-21-[address] Angelic Monsalve MD Work Phone: [facility] Work Phone: Start: 12-07-2024 End: 12-07-2024 Patient encounter procedure Debbie Apodaca CHASER APPRENTICE- -[facility] Work Phone: Start: 12-07-2024 End: 12-07-[address] Angelic Monsalve MD Work Phone: [facility] Work Phone: Start: 12-05-2024 Registered Recurring Cheri Gomez CHASER APPRENTICE-C -[facility] Start: 11-16-2024 End: 11-16-[address] Herbert Toussaint MD -[facility] Work Phone: Start: 11-16-2024 End: 11-16-2024 ambulatory Herbert Toussaint Facility:[facility] Start: 10-19-2024 End: 10-19-2024 Patient encounter procedure Cheri Gomez NP-C -[facility] Work Phone: Start: 10-19-2024 End: 10-19-2024 ambulatory Angelic Monsalve Facility:[facility] Start: 10-12-2024 End: 10-12-2024 ambulatory RENATO CANALES Facility:[facility] Start: 10-12-2024 End: 10-12-2024 Office outpatient visit 25 minutes Renato Canales MD, PhD Work Phone: Ophthalmology Comment on above: CME (cystoid macular edema), left (Primary Dx); 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 Daryl Luz MD -Occupational Therapy Work Phone: Start: 10-04-2024 End: 10-04-[address] Angelic Monsalve MD Work Phone: [facility] Work Phone: Start: 09-29-2024 End: 09-29-[address] Angelic Monsalve MD Work Phone: [facility] Work Phone: Start: 09-29-2024 End: 09-29-2024 Patient encounter procedure Debbie Apodaca NP-C -Sleep Lab Work Phone: Start: 09-29-2024 End: 09-29-2024 ambulatory Angelic S Jolliff Facility:[facility] Start: 09-21-2024 End: 09-21-[address] Herbert Toussaint MD -[facility] Work Phone: Start: 09-21-2024 End: 09-21-2024 ambulatory Herbert Toussaint Facility:[facility] Start: 08-29-2024 End: 08-29-2024 Patient encounter procedure Debbie WHEATLEY -[facility] Work Phone: Start: 08-29-2024 End: 08-29-2024 ambulatory Angelic S Arunaariiff Facility:[facility] Start: 08-24-2024 End: 08-24-[address] Herbert Toussaint MD -[facility] Work Phone: Start: 08-24-2024 End: 08-24-2024 ambulatory Herbert Toussaint Facility:[facility] Start: 08-04-2024 ambulatory Daryl Luz Facility: [facility] Start: 08-04-2024 Non-patient / Non-visit Emily WHEATLEY -[facility] Start: 08-04-2024 End: 08-04-[address] Daryl Luz MD -Radiology, [facility] Work Phone: Start: 08-04-2024 End: 08-04-2024 ambulatory Daryl Luz Facility:[facility] Start: 08-01-2024 End: 08-01-2024 Patient encounter procedure Josephine Hawk DO -[facility] Work Phone: Start: 08-01-2024 End: 08-01-2024 ambulatory Josephine Hawk Facility:[facility] Start: 07-27-2024 End: 07-27-[address] Herbert Toussaint MD -[facility] Work Phone: Start: 07-27-2024 End: 07-27-2024 ambulatory Herbert Toussaint Facility:[facility] Start: 07-19-2024 End: 07-19-[address] Herbert Toussaint MD -[facility] Work Phone: Start: 07-19-2024 End: 07-19-2024 ambulatory Herbert Goodmanchelo Facility:[facility] Start: 06-30-2024 End: 06-30-2024 Patient encounter procedure Cleo MARQUEZ -Laboratory, Specimen Work Phone: Start: 06-30-2024 End: 06-30-2024 ambulatory Cleo Carlos Facility:[facility] Start: 06-28-2024 ambulatory Juan Luisgumaro Juan Facili ty:[facility] Start: 06-28-2024 Non-patient / Non-visit Warner Apodaca NP-C -[facility] Start: 06-28-2024 End: 06-28-[address] Herbert oTussaint MD -Cat Scan, [facility] Work Phone: Start: 06-28-2024 End: 06-28-2024 ambulatory Herbert Goodmanchelo Facility:[facility] Start: 06-22-2024 End: 06-22-2024 Patient encounter procedure Cleo MARQUEZ -[facility] Work Phone: Start: 06-22-2024 End: 06-22-2024 ambulatory Cleo Wellernolberto Facility:[facility] Start: 06-21-2024 End: 06-21-[address] Herbert Toussaint MD -[facility] Work Phone: Start: 06-21-2024 End: 06-21-2024 ambulatory Herbert Goodmanchelo Facility:[facility] Start: 05-31-2024 End: 06-14-2024 Evaluation and management of inpatient TAI Jacque GOODWIN 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 CLERK-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 [facility] Start: 05-18-2024 ambulatory Angelic Monsalve Facility: [facility] Start: 05-17-2024 ambulatory Maricel Pinon [facility] Start: 05-17-2024 End: 05-31-2024 Evaluation and management of inpatient Mariecl Pinon Facility:[facility] Start: 05-08-2024 End: 05-08-2024 ambulatory Juan Luisgumaro Breana Facility:[facility] Start: 03-07-2024 End: 03-07-2024 ambulatory Angelic Monsalve Facility:[facility] Start: 12-31-2023 End: 01-08-2024 Evaluation and management of inpatient NINA KEENE Facility:[facility] Start: 11-18-2023 End: 11-18-[address] Angelic Monsalve Work Phone: [facility] Work Phone: Start: 11-18-2023 End: 11-18-[address] Angelic Monsalve Work Phone: [facility] Work Phone: Start: 11-16-2023 End: 11-16-[address] Angelic Monsalve Work Phone: [facility] Work Phone: Start: 11-16-2023 End: 11-16-[address] Angelic Monsalve Work Phone: [facility] Start: 09-27-2023 End: 09-27-[address] Angelic Monsalve Work Phone: [facility] Work Phone: Start: 09-27-2023 End: 09-27-[address] Angelic Monsalve Work Phone: [facility] Start: 09-03-2023 Non-patient / Non-visit Dr. Paul Monsalve Work Phone: [facility] Work Phone: Start: 09-02-2023 Non-patient / Non-visit Dr. Paul Monsalve Work Phone: [facility] Work Phone: Start: 09-01-2023 Non-patient / Non-visit Dr. Paul Monsalve Work Phone: [facility] Work Phone: Start: 08-31-2023 Non-patient / Non-visit Dr. Paul Monsalve Work Phone: [facility] Work Phone: Start: 08-30-2023 Non-patient / Non-visit Dr. Paul Monsalve Work Phone: [facility] Work Phone: Start: 08-29-2023 Non-patient / Non-visit Dr. Paul Monsalve Work Phone: [facility] Work Phone: Start: 08-28-2023 Non-patient / Non-visit Dr. Paul Monsalve Work Phone: [facility] Work Phone: Start: 08-27-2023 Non-patient / Non-visit Dr. Paul Monsalve Work Phone: [facility] Work Phone: Start: 08-26-2023 Non-patient / Non-visit Dr. Paul Monsalve Work Phone: [facility] Work Phone: Start: 08-25-2023 Non-patient / Non-visit Dr. Paul Monsalve Work Phone: [facility] Work Phone: Start: 08-25-2023 End: 09-03-2023 Evaluation and management of inpatient Dr. Angelic Monsalve Work Phone: [facility]-Medical Surgical 3 Work Phone: Start: 08-14-2023 End: 08-14-[address] Angelic Monsalve Work Phone: [facility] Work Phone: Start: 08-14-2023 End: 08-14-[address] Angelic Monsalve Work Phone: [facility]-Laboratory Work Phone: Start: 06-24-2023 End: 06-24-2023 Office outpatient visit 25 minutes Meri Fisher MD Work Phone: Dermatology Comment on above: Nummular dermatitis (Primary Dx); Actinic keratoses Start: 06-21-2023 End: 06-21-[address] Angelic Monsalve Work Phone: [facility] Work Phone: Start: 06-21-2023 End: 06-21-[address] Angelic Monsalve Work Phone: [facility]-Cat Scan, [facility] Work Phone: Start: 06-17-2023 End: 06-17-[address] Angelic Monsalve Work Phone: [facility] Work Phone: Start: 06-17-2023 End: 06-17-[address] Angelic Monsalve Work Phone: [facility]-Pre-Admission Testing Work Phone: Start: 06-17-2023 End: 06-17-2023 Non-patient / Non-visit Dr. Angelic Monsalve Work Phone: [facility] Work Phone: Start: 05-24-2023 End: 05-24-[address] JONG MASON MD Facility:B Start: 05-24-2023 End: 05-24-[address] JONG MASON MD [facility] Start: 05-11-2023 End: 05-11-2023 Office outpatient new 45 minutes Meri Fisher MD Work Phone: Dermatology Comment on above: Actinic keratoses (P rimary Dx); Seborrheic keratoses; Lentigines; Acrochordon Start: 02-09-2023 End: 03-11-2023 [facility] Work Phone: Start: 02-09-2023 End: 03-11-2023 [facility] Start: 02-03-2023 End: 02-03-2023 ambulatory [facility] Work Phone: Start: 02-03-2023 End: 02-03-2023 [facility] Start: 01-04-2023 End: 01-08-2023 [facility] Work Phone: Start: 01-04-2023 End: 01-08-2023 Discharged Recurring [facility] Work Phone: Start: 12-24-2022 End: 12-24-2022 Patient encounter procedure Renato Canales MD, PhD Work Phone: Ophthalmology Comment on above: CME (cystoid macular edema), left; Lattice degeneration of both retinas; 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; 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 edema, without long-term current use of insulin (HCC); Dry eye syndrome of both eyes Start: 11-30-2022 End: 11-30-2022 [facility] Work Phone: Start: 11-30-2022 End: 11-30-2022 [facility] Start: 11-12-2022 End: 11-12-2022 Patient encounter procedure Renato Canales MD, PhD Work Phone: Ophthalmology Comment on above: Dry eye syndrome of both eyes (Primary Dx); CME (cystoid macular edema), left; Lattice degeneration of both retinas; 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; 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 edema, without long-term current use of insulin ([facility]) Start: 10-19-2022 End: 10-19-2022 Patient encounter procedure [facility] Work Phone: Start: 09-24-2022 End: 09-24-2022 Patient encounter procedure Renaot Canales MD, PhD Work Phone: Ophthalmology Comment on above: CME (cystoid macular edema), left; Lattice degeneration of both retinas; 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; 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 edema, without long-term current use of insulin ([facility]) Start: 09-11-2022 End: 09-11-2022 ambulatory [facility] Work Phone: Start: 09-11-2022 End: 09-11-2022 Patient encounter procedure [facility] Start: 09-08-2022 End: 09-08-2022 ambulatory [facility] Work Phone: Start: 09-08-2022 End: 09-08-2022 [facility] Start: 09-02-2022 End: 09-02-2022 Patient encounter procedure Bradly Sanders MD Work Phone: Ophthalmology Comment on above: Type 2 diabetes emerson itus with both 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 retinopathy without macular edema, without long-term current use of insulin ([facility]) (Primary Dx); Lattice degeneration of both retinas; CME (cystoid macular edema), left; Pseudophakia Start: 09-01-2022 End: 09-01-2022 ambulatory [facility] Work Phone: Start: 09-01-2022 End: 09-01-2022 Patient encounter procedure [facility]Pre[facility]mission Testing Start: 08-21-2022 End: 08-21-2022 ambulatory [facility] Work Phone: Start: 08-21-2022 End: 08-21-2022 Patient encounter procedure [facility]-Cat Scan, [facility] Start: 08-18-2022 End: 08-18-2022 Patient encounter procedure Bradly Sanders MD Work Phone: Ophthalmology Comment on above: After-cataract of le ft eye with vision obscured (Primary Dx); Pseudophakia Start: 07-30-2022 End: 07-30-2022 Patient encounter procedure Renato Canales MD, PhD Work Phone: Ophthalmology Comment on above: CME (cystoid macular edema), left (Primary Dx); Lattice degeneration of both retinas; 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; 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 edema, without long-term current use of insulin (HCC) Start: 06-24-2022 End: 06-24-2022 Patient encounter procedure Bradly Sanders MD Work Phone: Ophthalmology Comment on above: CME (cystoid macular edema), left (Primary Dx); 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 Start: 06-03-2022 Telephone encounter Bradly tse MD Work Phone: Ophthalmology Comment on above: Medication Problem Start: 06-02-2022 End: 06-02-2022 Patient encounter procedure Bradly Sanders MD Work Phone: Ophthalmology Comment on above: CME (cystoid macular edema), left (Primary Dx) Start: 05-12-2022 End: 05-12-2022 Patient encounter procedure Bradly Sanders MD Work Phone: Ophthalmology Comment on above: CME (cystoid macular edema), left (Primary Dx); Iritis, recurrent, left; Pseudophakia Start: 05-06-2022 End: 05-06-2022 Patient encounter procedure Bradly Sanders MD Work Phone: Ophthalmology Comment on above: Iritis, recurrent, l eft (Primary Dx); 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 Angelic Monsalve Work Phone: [facility] Work Phone: Start: 04-21-2022 End: 04-21-[address] Angelic Monsalve Work Phone: [facility] Start: 03-25-2022 End: 03-25-2022 Patient encounter procedure Bradly Sanders MD Work Phone: Ophthalmology Comment on above: Pseudophakia (Primar y Dx) Start: 03-24-2022 Telephone encounter Bradly tse MD Work Phone: Ophthalmology Comment on above: Schedule Surgery Start: 03-24-2022 End: 03-24-2022 Subsequent hospital visit by physician Bradly Sanders MD Work Phone: [facility] SURG[facility] Comment on above: Combined forms of ag e-related cataract of both eyes [H25.813] Start: 03-23-2022 End: 04-10-[address] Angelic Monsalve Work Phone: [facility] Work Phone: Start: 03-23-2022 End: 04-10-[address] Angelic Monsalve Work Phone: [facility] Start: 03-23-[address] Angelic de la rosa Work Phone: [facility] Start: 03-09-2022 End: 03-09-[address] Angelic Monsalve Work Phone: [facility] Work Phone: Start: 03-09-2022 End: 03-09-[address] Angelic Monsalve Work Phone: [facility] Start: 02-26-2022 Telephone encounter Bradly tse MD Work Phone: [facility] [place] Comment on above: Forms Start: 01-28-2022 End: 02-08-[address] Angelic Monsalve Work Phone: [facility] Start: 01-15-2022 End: 01-15-2022 Patient encounter procedure [facility] Start: 01-15-2022 Non-patient / Non-visit Dr. Paul Monsalve Work Phone: [facility] Start: 01-14-2022 End: 01-14-2022 Patient encounter procedure Bridget Oliver APRN.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 Work Phone: [facility] Comment on above: OPENED IN ERROR (Alina bradford Dx) Start: 12-22-2021 Registered Recurring [facility] Start: 12-09-2021 End: 12-09-2021 Patient encounter procedure Bradly Sanders MD Work Phone: Ophthalmology Comment on above: Type 2 diabetes emerson itus with both 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 retinopathy without macular edema, without long-term current use of insulin (HCC) (Primary Dx); Lattice degeneration of both retinas; 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; Combined forms of age-related cataract of both eyes Start: 10-06-2021 Telephone encounter Carly Kim MD Work Phone: Ophthalmology Comment on above: Patient Update Start: 09-29-2021 End: 09-29-2021 Patient encounter procedure Carly Kim MD Work Phone: Ophthalmology Comment on above: Retinal detachment o f left eye with multiple breaks (Primary Dx); 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 edema, without long-term current use of insulin (HCC) Start: 09-02-2021 Office outpatient vi sit 40 minutes No PCP None [facility] Work Phone: Start: 04-23-2021 Office outpatient vi sit 15 minutes No PCP None [facility] 300 Work Phone: Start: 04-23-2021 Patient encounter procedure No PCP None [facility] 300 Work Phone: Start: 04-17-2021 Chart Update No PCP None [facility] 300 Work Phone: Start: 04-16-2021 Patient encounter procedure No PCP None [facility] 300 Work Phone: Start: 04-07-2021 AUDIT No PCP None [facility] 300 Work Phone: Start: 03-21-2021 Chart Update No PCP None [facility] 300 Work Phone: Start: 03-20-2021 Office outpatient vi sit 40 minutes No PCP None [facility] 300 Work Phone: Start: 02-25-2021 Office outpatient vi sit 15 minutes No PCP None [facility] 300 Work Phone: Start: 01-24-2021 Office outpatient vi sit 15 minutes No PCP None [facility] 300 Work Phone: Start: 01-24-2021 Patient encounter procedure No PCP None [facility] 300 Work Phone: Start: 01-16-2021 Patient encounter procedure [facility] Start: 01-16-2021 PTRECHADUL, Provider : Christopher Pastor, Status: Pen, Time: 10:00 AM No PCP None [facility] Work Phone: Start: 01-14-2021 Patient encounter procedure No PCP [facility]: Start: 01-09-2021 [email or web address], Provider : Christopher Pastor, Status: Pen, Time: 10:00 AM No PCP [facility] Work [facility]: Start: 01-07-2021 Patient encounter procedure No PCP None [facility] Work Phone: Start: 01-07-2021 [email or web address], Provider : Emeterio Palacio, Status: Pen, Time: 10:00 AM No PCP None [facility] Work Phone: Start: 01-03-2021 [facility], Provider: Esther Valle, Status: Pen, Time: 11:00 AM No PCP None [facility] Work Phone: Start: 01-03-2021 Office outpatient vi sit 15 minutes No PCP None [facility] 300 Work Phone: Start: 01-03-2021 Patient encounter procedure No PCP [facility] Work Phone: Start: 01-03-2021 [email or web address], Provider : Emeterio Palacio, Status: Pen, Time: 10:00 AM No PCP None [facility] Work Phone: Start: 01-02-2021 Patient encounter procedure No PCP None [facility] Work Phone: Start: 01-02-2021 [email or web address], Provider : Emeterio Palacio, Status: Pen, Time: 10:00 AM No PCP None [facility] Work Phone: Start: 12-31-2020 Patient encounter procedure No PCP None [facility] Work Phone: Start: 12-27-2020 Patient encounter procedure No PCP None [facility] Work Phone: Start: 12-24-2020 Patient encounter procedure No PCP None [facility] Work Phone: Start: 12-20-2020 Patient encounter procedure No PCP None [facility] Work Phone: Start: 12-20-2020 [email or web address], Provider : Irene Castillo, Status: Pen, Time: 11:30 AM No PCP None [facility] Work Phone: Start: 12-19-2020 Patient encounter procedure No PCP None [facility] Work Phone: Start: 12-19-2020 [email or web address], Provider : Emeterio Palacio, Status: Pen, Time: 10:00 AM No PCP None [facility] Work Phone: Start: 12-17-2020 Patient encounter procedure No PCP None [facility] Work Phone: Start: 12-17-2020 [email or web address], Provider : Emeterio Palacio, Status: Pen, Time: 10:00 AM No PCP None [facility] Work Phone: Start: 12-13-2020 [email or web address], Provider : Helga Lucas, Status: Pen, Time: 11:30 AM No PCP None [facility] Work Phone: Start: 12-12-2020 Patient encounter procedure No PCP None [facility] Work Phone: Start: 12-12-2020 [email or web address], Provider : Emeterio Palacio, Status: Pen, Time: 10:00 AM No PCP None [facility] Work Phone: Start: 12-10-2020 Patient encounter procedure No PCP None [facility] Work Phone: Start: 12-05-2020 Patient encounter procedure No PCP None [facility] Work Phone: Start: 12-05-2020 [email or web address], Provider : Emeterio Palacio, Status: Pen, Time: 11:30 AM No PCP None [facility] 300 Work Phone: Start: 12-04-2020 Patient encounter procedure No PCP None [facility] Work Phone: Start: 12-04-2020 [email or web address], Provider : Emeterio Palacio, Status: Pen, Time: 9:15 AM No PCP None [facility] 300 Work Phone: Start: 12-03-2020 Office outpatient vi sit 15 minutes No PCP None [facility] 300 Work Phone: Start: 12-03-2020 Patient encounter procedure No PCP None [facility] 300 Work Phone: Start: 11-22-2020 Patient encounter procedure Esther Valle [facility] 300 Work Phone: Start: 11-21-2020 Patient encounter procedure Esther Leonard [facility] Work [facility]: Start: 11-19-2020 Patient encounter procedure Esther [facility]le [facility] Work Phone: Start: 11-14-2020 Patient encounter procedure Esther Valle [facility] 300 Work Phone: Start: 11-12-2020 Patient encounter procedure [facility] 300 Work Phone: Start: 11-11-2020 Patient encounter procedure Esther Valle [facility] 300 Work Phone: Start: 11-07-2020 Patient encounter procedure Esther Valle [facility] 300 Work Phone: Start: 11-05-2020 Patient encounter procedure [facility] Work Phone: Start: 10-31-2020 Patient encounter procedure Esther Valle DO [facility] 300 Work Phone: Start: 10-29-2020 Patient encounter procedure Esther Valle DO [facility] 300 Work Phone: Start: 10-25-2020 Patient encounter procedure Esther Valle DO [facility] 300 Work Phone: Start: 10-22-2020 Patient encounter procedure Esther Valle DO [facility] 300 Work Phone: Start: 10-17-2020 Patient encounter procedure Esther Valle DO [facility] 300 Work Phone: Start: 10-15-2020 Patient encounter procedure Esther Valle DO [facility] 300 Work Phone: Start: 10-09-2020 Patient encounter procedure Esther Valle DO [facility] 300 Work Phone: Start: 10-07-2020 Patient encounter procedure Esther Valle DO [facility] 300 Work Phone: Start: 10-04-2020 Patient encounter procedure Esther Valle DO [facility] 300 Work Phone: Start: 10-02-2020 Patient encounter procedure Esther Valle DO [facility] 300 Work Phone: Start: 09-30-2020 Patient encounter procedure Esther Valle DO [facility] 300 Work Phone: Start: 09-27-2020 Patient encounter procedure Esther Valle DO [facility] 300 Work Phone: Start: 09-25-2020 Patient encounter procedure Esther Valle DO [facility] 300 Work Phone: Start: 09-23-2020 Patient encounter procedure Esther Valle DO [facility] 300 Work Phone: Start: 09-20-2020 Patient encounter procedure Esther Valle DO [facility] 300 Work Phone: Start: 09-18-2020 Patient encounter procedure Esther Valle DO [facility] 300 Work Phone: Start: 09-16-2020 Patient encounter procedure Esther Valle DO [facility] 300 Work Phone: Start: 09-13-2020 Patient encounter procedure Esther Valle DO [facility] 300 Work Phone: Start: 09-12-2020 End: 09-12-2020 Orders Only Verito Isabella Dexter Work Phone: [facility] Start: 09-11-2020 Patient encounter procedure Esther Valle DO [facility] 300 Work Phone: Start: 09-09-2020 Patient encounter procedure Esther Valle DO [facility] 300 Work Phone: Start: 09-06-2020 Patient encounter procedure Esther Valle DO [facility] 300 Work Phone: Start: 09-04-2020 Patient encounter procedure Esther Valle DO [facility] 300 Work Phone: Start: 09-02-2020 Patient encounter procedure Esther Valle DO [facility] 300 Work Phone: Start: 08-28-2020 Patient encounter procedure Esther Valle DO [facility] 300 Work Phone: Start: 08-22-2020 Patient encounter procedure Esther Valle DO [facility] 300 Work Phone: Start: 07-30-2020 Patient encounter procedure Esther Valle DO [facility] 300 Work Phone: Start: 07-18-2020 Patient encounter procedure PHYSICIAN [facility] Start: 05-28-2020 Patient encounter procedure Esther Valle DO [facility] 300 Work Phone: Start: 03-27-2020 Patient encounter procedure Esther Valle DO [facility] 300 Work Phone: Start: 03-20-2020 Patient encounter procedure Esther Valle DO [facility] 300 Work Phone: Start: 02-27-2020 Patient encounter procedure Esther Valle [facility] 300 Work Phone: Start: 02-15-2020 Patient encounter procedure PHYSICIAN NO [facility] Start: 01-25-2020 Patient encounter procedure PHYSICIAN NO [facility] Start: 11-30-2019 End: 12-04-2019 Patient encounter procedure PHYSICIAN NO [facility] Start: 11-30-2019 End: 11-30-2019 Office outpatient new 30 minutes Linda Davalos Work Phone: [facility] Comment on above: Pain in fibula (Prim melvin Dx); Pain in both knees, unspecified chronicity; Pes anserinus bursitis of both knees; Primary osteoarthritis of left knee; Prepatellar bursitis of left knee; Prepatellar bursitis, right knee; Osteochondral defect of patella Start: 11-01-2019 Patient encounter procedure PHYSICIAN NO [facility] Start: 09-19-2019 Patient encounter procedure Esther Valle DO [facility] 300 Work Phone: Start: 09-18-2019 Patient encounter procedure Esther Valle DO [facility] 300 Work Phone: Start: 09-13-2019 Patient encounter procedure Esther Valle DO [facility] 300 Work Phone: Start: 09-11-2019 Patient encounter procedure Helga Lucas [facility] Work Phone: Start: 09-08-2019 Patient encounter procedure Helga Lucas [facility] Work Phone: Start: 09-06-2019 Patient encounter procedure Helga Lucas [facility] [place] Work Phone: Start: 09-04-2019 Patient encounter procedure Helga ROBERTS [facility] [place] Work Phone: Start: 09-01-2019 Patient encounter procedure Helga ROBERTS [facility] [place] Work Phone: Start: 08-30-2019 Patient encounter procedure Helga ROBERTS [facility] [place] Work Phone: Start: 08-28-2019 Patient encounter procedure Helga ROBERTS [facility] [place] Work Phone: Start: 08-25-2019 Patient encounter procedure Helga ROBERTS [facility] [place] Work Phone: Start: 08-23-2019 Patient encounter procedure Helga ROBERTS [facility] [place] Work Phone: Start: 08-21-2019 Patient encounter procedure Helga ROBERTS [facility] [place] Work Phone: Start: 08-17-2019 Patient encounter procedure Helga ROBERTS [facility] [place] Work Phone: Start: 08-07-2019 Patient encounter procedure Helga ROBERTS [facility] [place] Work Phone: Start: 08-03-2019 End: 08-04-2019 Patient encounter procedure LINDA DAVALOS [facility] Start: 08-03-2019 End: 08-03-2019 Subsequent hospital visit by physician Linda Davalos Work Phone: [facility] MRI Comment on above: Strain of right chana thomas, initial encounter Start: 07-20-2019 Patient encounter procedure Helga ROBERTS [facility] [place] Work Phone: Start: 06-29-2019 Patient encounter procedure Helga ROBERTS [facility] [place] Work Phone: Start: 06-20-2019 Patient encounter procedure Helga ROBERTS [facility] [place] Work Phone: Start: 06-15-2019 Patient encounter procedure [facility] Work Phone: Start: 06-05-2019 [facility] Work Phone: Procedures Date Procedure Procedure Detail Performing Clinician Start: 03-01-2025 Lymphocyte percent differential count Dr. Angelic Monsalve MD Work Phone: Start: 02-22-2025 Total iron binding capacity measurement Dr. Angelic Monsalve MD Work Phone: Start: 02-14-[address] Aneglic briggs MD Work Phone: Start: 01-29-2025 Total iron binding capacity measurement Dr. Angelic Monsalve MD Work Phone: Start: 01-15-2025 Total iron binding capacity measurement Dr. Angelic Monsalve MD Work Phone: Start: 12-21-2024 Total iron binding capacity measurement Dr. Angelic Monsalve MD Work Phone: Start: 11-27-[address] Angelic Monsalve MD Work Phone: Start: 11-27-2024 Total iron binding capacity measurement Dr. Angelic Monsalve MD Work Phone: Start: 10-12-2024 OCT ANGIOGRAPHY OU ( BOTH EYES) Renato Canales MD, PhD Work Phone: Start: 10-12-2024 Computerized ophthal ernestine imaging retina Renato Canales MD, PhD Work Phone: Start: 08-04-[address] Angelic Monsalve MD Work Phone: Start: 06-30-2024 Measurement of occul t blood in stool specimen using immunoassay Dr. Angelic Monsalve MD Work Phone: Start: 06-28-2024 Biopsy/Inj or Needle Placement Dr. Angelic Monsalve MD Work Phone: Start: 05-18-2024 Antibody screen Angelic brown Comment on above: Order Comment: CMV N EG? NNumber of units to transfuse: 2Is this product for anemia associated withhemoglobinopathy? NIs pt's Hgb is 10mmHg)? NIs this for PREOP anemia correction prior to anesthesia? NReason for Ordering Blood: ChronicIs there symptomatic anemia? Margoth the blood/blood products to be transfused? YIs the patient having/had surgery? NWhen ReadyNY Performed By: #### B , [facility], [id number] ####[facility] [id number] [place], [place], [id number] Start: 05-09-2024 Antibody screen Angelic brown Comment on above: Order Comment: [id number] 08:[id number] Performed By: #### B [id number], BTS, BRC ####[facility] [id number] [place], [place], [id number] Start: 05-08-[address] e fraction Dr. Angelic Monsalve MD Work Phone: Start: 08-27-2023 Plain chest X-ray Dr. Milton Monsalve Work Phone: Start: 08-25-2023 Total Knee Replaceme nt Robotic Arm Yanet (Left) Dr. Angelic Monsalve Work Phone: Start: 08-25-2023 Total replacement of left knee joint Dr. Angelic Monsalve Work Phone: Start: 08-25-2023 Radiologic examinati on of knee Dr. Angelic Monsalve Work Phone: Start: 06-21-2023 MRI of lower extremity Dr. Angelic Monsalve Work Phone: Start: 06-17-2023 Nasal Screen MRSA/MSSA Dr. Angelic Monsalve Work Phone: Start: 12-24-2022 Computerized ophthal ernestine imaging retina Renato Canales MD, PhD Work Phone: Start: 11-12-2022 Computerized ophthal ernestine imaging retina Renato Canales MD, PhD Work Phone: Start: 09-24-2022 Computerized ophthal ernestine imaging retina Renato Canales MD, PhD Work Phone: Start: 08-21-2022 MRI of lower extremity Start: 08-18-2022 Post-cataract laser surgery Bradly Sanders MD Work Phone: Start: 07-30-2022 Computerized ophthal ernestine imaging retina Renato Canales MD, PhD Work Phone: Start: 06-24-2022 Computerized ophthal ernestine imaging retina Bradly Sanders MD Work Phone: Start: 06-02-2022 Computerized ophthal ernestine imaging retina Bradly Sanders MD Work Phone: Start: 05-12-2022 Computerized ophthal ernestine imaging retina Bradly Sanders MD Work Phone: Start: 05-06-2022 Computerized ophthal ernestine imaging retina Bradly Sanders MD Work Phone: Start: 03-24-2022 Gluc bld gluc mntr d ev cleared fda spec home use Bradly Sanders MD Work Phone: Start: 03-24-2022 End: 03-24-2022 Oph bmtry prtl coher intrfrmtry io lens pwr jojo Bradly Sanders MD Work Phone: Start: 03-24-2022 End: 03-24-2022 Xcapsl ctrc rmvl insj io lens prosth w/o ecp Bradly Sanders MD Work Phone: Start: 03-24-2022 Gluc bld gluc mntr d ev cleared fda spec home use Bradly Sanders MD Work Phone: Start: 01-15-2022 MRI of lower extremity Start: 12-09-2021 IOL BIOMETRY W/ IOL CALC OU (BOTH EYES) Bradly Sanders MD Work Phone: Start: 12-09-2021 End: 12-09-2021 Computerized ophthalmic imaging retina Bradly Sanders MD Work Phone: Start: 09-29-2021 Computerized ophthal ernestine imaging retina Carly Kim MD Work Phone: Start: 07-20-2019 MRI Shoulder without Contrast Helga Lucas Start: 04-07-2017 Adult depression scr eening assessment Carly Kim MD Work Phone: Back problem (finding) TAI GOODENJARON 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 CLERK-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 History of No histor y of surgery Helga Lucas Knee region structur e (body structure) TAI BUDDY 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 CLERK-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 Nasal Screen MRSA/MSSA Procedure on back Esther llamas DO Plan of Treatment Date Care Activity Detail Author Start: 10-27-2025 End: 04-05-2026 OCT ANGIOGRAPHY OU (BOTH EYES) OCT ANGIOGRAPHY OU (BOTH EYES) [facility] Imaging Routine CME (cystoid macular edema), 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, unspecified whether press tender long goods insulin use (HCC) Expected: 10/27/2025, Expires: 04/05/2026 [facility] Comment on above: Expected: 10/27/2025 , Expires: 04/05/2026 Start: 10-27-2025 End: 04-05-2026 OCT MACULA CIRRUS OU (BOTH EYES) OCT MACULA CIRRUS OU (BOTH EYES) [facility] Imaging Routine CME (cystoid macular edema), 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, unspecified whether press tender long goods insulin use (HCC) Expected: 10/27/2025, Expires: 04/05/2026 [facility] Work Phone: Comment on above: Expected: 10/27/2025 , Expires: 04/05/2026 Start: 10-12-2025 Glaucoma screening Dilated Retinal E xam [facility] Start: 07-23-2025 Urine microalbumin profile DTa P,Tdap,Td Vaccine (2 - Td or Tdap) [facility] Start: 03-01-2025 [facility] Start: 02-22-2025 [facility] Start: 02-14-2025 Enteroscopy > 2nd pr tn w/control bleeding SMALL BOWEL ENDOSCOPY [facility] Start: 02-14-2025 Patient discharge [facility] Start: 02-05-2025 Administration of bl ood product [facility] Start: 02-05-2025 [facility] Start: 02-01-2025 Administration of bl ood product [facility] Start: 02-01-2025 [facility] Start: 01-29-2025 Administration of bl ood product [facility] Start: 01-29-2025 [facility] Start: 01-16-2025 Administration of bl ood product [facility] Start: 01-16-2025 [facility] Start: 01-15-2025 [facility] Start: 01-11-2025 End: 01-11-2025 Patient encounter procedure 01/11/2025 2:15 PM EDT Office Visit [facility] Op[facility] [address] [place], [place] [id number] Renato Canales MD, PhD [address] [place] [address] *DFE/ OCT/OCTa both eyes- full exam. Ophthalmology Comment on above: *DFE/ OCT/OCTa both eyes- full exam. Start: 12-22-2024 Administration of bl ood product [facility] Start: 12-22-2024 [facility] Start: 12-21-2024 Patient referral [facility] Work Phone: Start: 12-21-2024 [facility] Start: 12-15-2024 Administration of bl ood product [facility] Start: 12-15-2024 [facility] Start: 10-26-2024 Administration of bl ood product [facility] Start: 10-26-2024 [facility] Start: 10-19-2024 Patient referral [facility] Work Phone: Start: 10-05-2024 [facility] Start: 09-21-2024 Patient referral [facility] Work Phone: Start: 08-24-2024 Patient referral [facility] Work Phone: Start: 07-28-2024 Administration of bl ood product [facility] Start: 07-28-2024 [facility] Start: 07-19-2024 Administration of bl ood product [facility] Start: 07-19-2024 [facility] Start: 07-12-2024 Advance Directive Discussion Advance Directive Discussion [facility] Start: 07-05-2024 Hemoglobin A1c measurement HbA1C [facility] Start: 06-28-2024 Diagnostic bone collette ow biopsies & aspirations DX BONE MARROW BX & ASPIR [facility] Start: 06-28-2024 Catheterization of vein [facility] Start: 06-28-2024 Oxygen therapy [facility] Start: 06-28-2024 Patient discharge [facility] Start: 06-28-2024 Vital signs measurements [facility] Start: 06-28-2024 Following clinical p athway protocol [facility] Start: 06-21-2024 Administration of bl ood product [facility] Start: 06-21-2024 [facility] Start: 05-11-2024 Administration of bl ood product [facility] Start: 05-11-2024 [facility] Start: 04-01-2024 Glaucoma screening Dilated Retinal E xam [facility] Start: 04-01-2024 Hepatitis C antibody , confirmatory test Dilated Retinal Exam [facility] Start: 03-21-2024 Administration of bl ood product [facility] Start: 03-21-2024 [facility] Start: 03-12-2024 Covid-19 Vaccine ( season) Covid-19 Vaccine () [facility] Start: 03-09-2024 Administration of bl ood product [facility] Start: 03-09-2024 [facility] Start: 01-08-2024 End: 06-16-2024 OCT MACULA CIRRUS [...] of both eyes Expected: 01/08/2024, Expires: 06/16/2024 [facility] Work Phone: Comment on above: Expected: 01/08/2024 , Expires: 06/16/2024 Start: 12-25-2023 Hepatitis C antibody , confirmatory test DILATED RETINAL EXAM [facility] Start: 11-27-2023 End: 05-05-2024 OCT MACULA CIRRUS OU (BOTH EYES) OCT MACULA CIRRUS OU (BOTH EYES) [facility] Imaging Routine CME (cystoid macular edema), 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, without long-term current use of insulin (HCC) Dry eye syndrome of both eyes Expected: 11/27/2023, Expires: 05/05/2024 [facility] Work Phone: Comment on above: Expected: 11/27/2023 , Expires: 05/05/2024 Start: 11-18-2023 Administration of bl ood product [facility] Start: 11-18-2023 [facility] Start: 11-13-2023 Hepatitis C antibody , confirmatory test DILATED RETINAL EXAM [facility] Start: 10-09-2023 End: 03-17-2024 OCT MACULA CIRRUS OS (LEFT EYE) OCT MACULA CIRRUS OS (LEFT EYE) [facility] Imaging Routine CME (cystoid macular edema), 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, without long-term current use of insulin (HCC) Expected: 10/09/2023, Expires: 03/17/2024 [facility] Work Phone: Comment on above: Expected: 10/09/2023 , Expires: 03/17/2024 Start: 09-25-2023 Hepatitis C antibody , confirmatory test DILATED RETINAL EXAM [facility] Start: 09-03-2023 Patient discharge [facility] Start: 08-31-2023 Referral to service [facility] Start: 08-25-2023 End: 08-26-2023 [facility] Start: 08-25-2023 Application of intermittent pneumatic compression device [facility] Start: 08-25-2023 Following clinical p athway protocol [facility] Start: 08-25-2023 Provision of overbed trapeze [facility] Start: 08-25-2023 Ambulation therapy management [facility] Start: 08-25-2023 Application of device [facility] Start: 08-25-2023 Application of elast ic bandage [facility] Start: 08-25-2023 Assessment of risk o f venous thromboembolism [facility] Start: 08-25-2023 Catheterization of vein [facility] Start: 08-25-2023 Consultation [facility] Start: 08-25-2023 Exercises [facility] Start: 08-25-2023 Following clinical p athway protocol [facility] Start: 08-25-2023 Introduction of urin melvin catheter [facility] Start: 08-25-2023 Measuring intake and output [facility] Start: 08-25-2023 Neurovascular assessment [facility] Start: 08-25-2023 Patient education [facility] Start: 08-25-2023 Procedure discontinued [facility] Start: 08-25-2023 Provision of activit y privileges [facility] Start: 08-25-2023 Recommendation to rocael collazo with treatment [facility] Start: 08-25-2023 Referral to occupati onal therapist [facility] Start: 08-25-2023 Referral to service [facility] Start: 08-25-2023 Vital signs measurements [facility] Start: 08-25-2023 Wound care [facility] Start: 08-25-2023 Admission procedure [facility] Start: 08-18-2023 Hepatitis C antibody , confirmatory test DILATED RETINAL EXAM [facility] Start: 08-14-2023 End: 01-21-2024 OCT MACULA CIRRUS OU (BOTH EYES) OCT MACULA CIRRUS OU (BOTH EYES) OPHT Imaging Routine CME (cystoid macular edema), 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, without long-term current use of insulin (HCC) Expected: 08/14/2023, Expires: 01/21/2024 [facility] Work Phone: Comment on above: Expected: 08/14/2023 , Expires: 01/21/2024 Start: 07-30-2023 Hepatitis C antibody , confirmatory test DILATED RETINAL EXAM [facility] Start: 07-14-2023 Total Knee Replaceme nt Robotic Arm Yanet (Left) Total Knee Replacement Robotic Arm Yanet (Left) [facility] Start: 06-24-2023 Hepatitis C antibody , confirmatory test DILATED RETINAL EXAM [facility] Start: 03-12-2023 Covid-19 Vaccine ( season) Covid-19 Vaccine () [facility] Start: 03-12-2023 Influenza vaccination Influenza Vacc ine (#1) [facility] Start: 01-14-2023 ANNUAL PCP TEAM [employer] 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 DISEASE VISIT ANNUAL PCP TEAM CHRONIC DISEASE VISIT [facility] Start: 12-09-2022 Hepatitis C antibody , confirmatory test DILATED RETINAL EXAM [facility] Start: 09-29-2022 Hepatitis C antibody , confirmatory test DILATED RETINAL EXAM [facility] Start: 09-11-2022 Antibody to gastric parietal cell measurement [facility] Start: 09-11-2022 [facility] Start: 07-12-2022 DEPRESSION ASSESSMENT [facility] Start: 04-21-2022 Assay of prostate sp ecific antigen total ASSAY OF PSA TOTAL [facility] Work Phone: Start: 03-12-2022 Influenza vaccination INFLUENZA (#1) [facility] Start: 10-15-2021 Hemoglobin A1c measurement HbA1C [facility] Start: 10-15-2021 Hemoglobin A1c/Hemoglobin.total in Blood HBA1C [facility] Start: 07-12-2021 DEPRESSION ASSESSMENT DEPRESSION ASS [facility] Start: 04-23-2021 [facility], Provider: Esther Valle, Status: Pen, Time: 11:00 AM [facility], Provider: Esther Valle, Status: Pen, Time: 11:00 AM [facility] 300 Work Phone: Start: 04-16-2021 [facility], Provider: [facility], Status: Pen, Time: 9:00 AM [facility], Provider: [facility], Status: Pen, Time: 9:00 AM [facility] 300 Work Phone: Start: 03-13-2021 COVID-19 VACCINE (3 - Booster for Pfizer series) COVID-19 VACCINE (3 - Booster for Pfizer series) [facility] Start: 02-25-2021 [facility], Provider: Esther Valle, Status: Pen, Time: 10:00 AM [facility], Provider: Esther Valle, Status: Pen, Time: 10:00 AM [facility] 300 Work Phone: Start: 01-24-2021 [facility], Provider: Esther Valle, Status: Pen, Time: 11:30 AM [facility], Provider: Esther Valle, Status: Pen, Time: 11:30 [facility]: Start: 01-22-2021 PTRECHADUL, Provider : Christopher Pastor, Status: Pen, Time: 10:00 AM PTRE[facility]UL, Provider: Christopher Pastor, Status: Pen, Time: 10:00 AM [facility] 300 Work Phone: Start: 01-21-2021 PTFUADULT4, Provider : Emeterio Palacio, Status: Pen, Time: 10:00 AM [facility], Provider: Emeterio Palacio, Status: Pen, Time: 10:00 AM [facility] 300 Work Phone: Start: 01-20-2021 FUVBWC, Provider: Philip Stock, Status: Pen, Time: 11:15 AM [facility], Provider: Philip Stock, Status: Pen, Time: 11:15 AM [facility] 300 Work Phone: Start: 01-17-2021 PTFUADULT4, Provider : Christopher Pastor, Status: Pen, Time: 10:00 AM [facility], Provider: Christopher Pastor, Status: Pen, Time: 10:00 AM [facility] 300 Work Phone: Start: 01-16-2021 [facility]FU[facility], Provider : Michelet Plummer, Status: Pen, Time: 10:00 AM [facility], Provider: Michelet Plummer, Status: Pen, Time: 10:00 AM [facility] 300 Work Phone: Start: 01-16-2021 PTRECHADUL, Provider : Christopher Pastor, Status: Pen, Time: 10:00 AM [facility], Provider: Christopher Pastor, Status: Pen, Time: 10:00 AM [facility] Work Phone: Start: 01-14-2021 PTFUADULT4, Provider : Michelet Plummer, Status: Pen, Time: 10:00 AM [facility], Provider: Michelet Plummer, Status: Pen, Time: 10:00 AM [facility] 300 Work Phone: Start: 01-14-2021 PTFUADULT4, Provider : Johnie Degroot, Status: Pen, Time: 10:00 AM [facility], Provider: Johnie Degroot, Status: Pen, Time: 10:[address] [facility] Work Phone: Start: 01-10-2021 PTFUADULT4, Provider : Christopher Pastor, Status: Pen, Time: 10:00 AM [facility], Provider: Christopher Pastor, Status: Pen, Time: 10:00 AM [facility] 300 Work Phone: Start: 01-09-2021 PTFUADULT4, Provider : Christopher Pastor, Status: Pen, Time: 10:00 AM [facility], Provider: Christopher Pastor, Status: Pen, Time: 10:00 AM [facility] 300 Work Phone: Start: 01-07-2021 PTFUADULT4, Provider : Emeterio Palacio, Status: Pen, Time: 10:00 AM [facility], Provider: Emeterio Palacio, Status: Pen, Time: 10:00 AM [facility] 300 Work Phone: Start: 01-03-2021 [facility], Provider: Esther Valle, Status: Pen, Time: 11:00 AM [facility], Provider: Esther Valle, Status: Pen, Time: 11:00 AM [facility] 300 Work Phone: Start: 01-03-2021 PTFU[facility]ULT[facility], Provider : Emeterio Palacio, Status: Pen, Time: 10:00 AM [facility], Provider: Danyel Palacioin, Status: Pen, Time: 10:00 AM [facility] 300 Work Phone: Start: 01-02-2021 PTFUADULT4, Provider : Emeterio Palacio, Status: Pen, Time: 10:00 AM [facility], Provider: Emeterio Palacio, Status: Pen, Time: 10:00 AM [facility] 300 Work Phone: Start: 12-31-2020 [facility], Provider : Danyel Palacioin, Status: Pen, Time: 10:00 AM [facility], Provider: aDnyel Palacioin, Status: Pen, Time: 10:00 AM [facility] 300 Work Phone: Start: 12-27-2020 PT[facility], Provider : Danyel Palacioin, Status: Pen, Time: 10:00 AM [facility], Provider: Emeterio Palacio, Status: Pen, Time: 10:00 AM [facility] Work Phone: Start: 12-26-2020 PTFU[facility]ULT[facility], Provider : Emeterio Palacio, Status: Pen, Time: 10:00 AM [facility], Provider: Emeterio Palacio, Status: Pen, Time: 10:00 AM [facility] 300 Work Phone: Start: 12-24-2020 PTFU[facility]ULT[facility], Provider : Emeterio Palacio, Status: Pen, Time: 10:00 AM [facility], Provider: Emeterio Palacio, Status: Pen, Time: 10:00 AM [facility] 300 Work Phone: Start: 12-20-2020 [facility], Provider : Irene Castillo, Status: Pen, Time: 11:30 AM [facility], Provider: Irene Castillo, Status: Pen, Time: 11:[address] [facility] Work Phone: Start: 12-20-2020 PTFU[facility]ULT[facility], Provider : Christopher Pastor, Status: Pen, Time: 10:15 AM [facility], Provider: Christopher Pastor, Status: Pen, Time: 10:15 AM [facility] 300 Work Phone: Start: 12-19-2020 PTFU[facility], Provider : Emeterio Palacio, Status: Pen, Time: 10:00 AM [facility], Provider: Emeterio Palacio, Status: Pen, Time: 10:00 AM [facility] 300 Work Phone: Start: 12-17-2020 [facility], Provider : Emeterio Palacio, Status: Pen, Time: 10:00 AM [facility], Provider: Emeterio Palacio, Status: Pen, Time: 10:00 AM [facility] 300 Work Phone: Start: 12-13-2020 [facility], Provider : Helga Lucas, Status: Pen, Time: 11:30 AM [facility], Provider: Helga Lucas, Status: Pen, Time: 11:30 AM [facility] 300 Work Phone: Start: 12-12-2020 PTFUADULT4, Provider : Emeterio Palacio, Status: Pen, Time: 10:00 AM [facility], Provider: Emeterio Palacio, Status: Pen, Time: 10:00 AM [facility] 300 Work Phone: Start: 12-10-2020 [facility], Provider : Michelet Plummer, Status: Pen, Time: 10:45 AM [facility], Provider: Michelet Plummer, Status: Pen, Time: 10:45 AM [facility] 300 Work Phone: Start: 12-06-2020 COVID-19 VACCINE (3 - Booster for Pfizer series) COVID-19 VACCINE (3 - Booster for Pfizer series) [facility] Start: 10-31-2020 Hepatitis B surface antibody level LDL CHOLESTEROL [facility] Start: 06-11-2020 Shingrix Vaccine (2 of 2) Gomez grix Vaccine (2 of 2) [facility] Start: 03-12-2020 Influenza vaccinatio n given [facility] Start: 2018 Hepatitis B Vaccine (1 of 3 - Risk 3-dose series) Hepatitis B Vaccine (1 of 3 - Risk 3-dose series) [facility] Start: 2018 RSV Vaccine (1 - 1-d ose 60+ series) RSV Vaccine (1 - 1-dose 60+ series) [facility] Start: 2018 RSV Vaccine (1 - Ris k 60-74 years 1-dose series) RSV Vaccine (1 - Risk 60-74 years 1-dose series) [facility] Start: 04-07-2018 Adult depression scr eening assessment DEPRESSION SCREENING [facility] Start: 04-07-2018 ANNUAL PCP TEAM [employer] 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 DISEASE VISIT ANNUAL PCP TEAM CHRONIC DISEASE VISIT [facility] Start: 2013 PROSTATE CANCER SCRE ENING DISCUSSION PROSTATE CANCER SCREENING DISCUSSION [facility] Start: 2013 Prostate specific an tigen measurement Prostate Cancer Screening Discussion [facility] Start: 2008 Administration of he rpes zoster vaccine Zoster Vaccines (1 of 2) [facility] Start: 2008 Screening for malign ant neoplasm of colon [facility] Start: 2008 SHINGRIX VACCINE (1 of 2) GOMEZ GRIX VACCINE (1 of 2) [facility] Start: 10-11-2003 COLOGUARD (FIT-DNA) COLOGUARD (FIT-D NA) [facility] Start: 10-11-2003 Colonoscopy COLONOSCOPY [facility] Start: 10-11-2003 COLORECTAL CANCER SCREENING COLORECTAL CANCER SCREENING [facility] Start: 10-11-[address] COLONOGRAPHY [facility] Start: 10-11-2003 FECAL OCCULT BLOOD FECAL OCCULT BLOO D [facility] Start: 10-11-2003 Screening for malign ant neoplasm of colon [facility] Start: 10-11-2003 SIGMOIDOSCOPY SIGMOIDOSCOPY [facility] Start: 1977 Pneumococcal Vaccine : 50+ (1 of 2 - PCV) Pneumococcal Vaccine: 50+ (1 of 2 - PCV) [facility] Start: 1977 Urine microalbumin profile DTA P,TDAP,TD (1 - Tdap) [facility] Start: 1976 ANNUAL PCP TEAM [employer] 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 MIGDALIA DISEASE VISIT ANNUAL PCP TEAM CHRONIC DISEASE VISIT [facility] Start: 1976 Anxiety Screening Anxiety Screening [facility] Start: 1976 BP CONTROLLED (<130/80) BP CON TROLLED (<130/80) [facility] Start: 1976 Depression Screening Depression Scre ening [facility] Start: 1976 Hepatitis C antibody , confirmatory test Hepatitis C Screening [facility] Start: 1976 HEPATITIS C SCREENING HEPATITIS C [facility] Start: 1976 Hepatitis C screening Hepatitis C [facility] Start: 1976 HIV SCREENING HIV SCREENING [facility] Start: 1976 HIV screening HIV Screening [facility] Start: 1974 COVID-19 Vaccine (1 of 2) COVI D-19 Vaccine (1 of 2) [facility] Start: 1974 ONE PNEUMOVAX PRIOR TO AGE 65 ONE PNEUMOVAX PRIOR TO AGE 65 [facility] Start: 1973 HIV screening HIV Screening [facility] Start: 1970 Adolescent depressio n screening assessment Depression Screening (PHQ9) [facility] Start: 1968 3 comp foot exam completed DIABETIC FOOT EXAM [facility] Start: 1968 Diabetic foot examination Diabetic F oot Exam [facility] Start: 1968 Hepatitis B screening URINE ALBUMIN:CREATININE RATIO [facility] Start: 1964 PNEUMOCOCCAL (1 - PCV) PNEUMOCOCCAL (1 - PCV) [facility] Start: 1964 Pneumococcal vaccination Pneum ococcal Vaccine (1 - PCV) [facility] Start: 1961 History and physical examination, annual for health maintenance Wellness Visit [facility] Start: 1958 Depression screening using PHQ-9 (Patient Health Questionnaire 9) score Depression Screening (PHQ9) [facility] Start: 1958 Hepatitis C antibody , confirmatory test Hepatitis C Screening [facility] Start: 1958 Prostate specific an tigen measurement PSA Level [facility] Start: 1958 Screening for malign ant neoplasm of colon Colorectal Cancer Screening: Colonoscopy [facility] Start: 1958 Tetanus vaccination Tetanus: Every 1 0yrs [facility] Bone marrow biopsy, needle or trocar [facility] CBC W Auto Different ial panel - Blood [facility] CBC W Auto Different ial panel - Blood [facility] CBC W Auto Different ial panel - Blood [facility] Electrocardiographic procedure [facility] Ferritin [Mass/volum e] in Serum or Plasma [facility] Ferritin [Mass/volum e] in Serum or Plasma [facility] Ferritin [Mass/volum e] in Serum or Plasma [facility] Iron and Iron bindin g capacity panel - Serum or Plasma [facility] Iron and Iron bindin g capacity panel - Serum or Plasma [facility] Iron and Iron bindin g capacity panel - Serum or Plasma [facility] Measurement of immunoglobulin A in serum specimen [facility] End: 08-03-2019 MR Shoulder Right Without Contrast [facility] Comment on above: Once for 1 Occurrenc es starting 08/03/2019 until 08/03/2019 MR Shoulder Right Wi thout Contrast MR Shoulder Right Without Contrast Imaging Routine Strain of right shoulder, initial encounter 08/03/2019 3:08 PM EST [facility] OCT MACULA CIRRUS OU (BOTH EYES) OCT MACULA CIRRUS OU (BOTH EYES) OPHT Imaging Routine 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 edema, without long-term current use of insulin (HCC) CME (cystoid macular edema), left Ordered: 09/02/2022 [facility] Work Phone: Comment on above: Ordered: 09/02/2022 Patient Education RAD RN Bone Ma rrow Aspiration and Biopsy RAD RN Procedural Sedation [facility] Work Phone: Patient referral [facility] Work Phone: Tissue transglutamin ase IgA Ab [Units/volume] in Serum [facility] LD OR [facility] NEGATED: Highlighted row has been ruled out! Planned Goals not documented [facility] Work Phone: Immunizations Immunization Date Immunization Notes Care Provider Ramon curran 04-01-2024 influenza virus vaccine, unspecified formulation TAI GOODWIN 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 CLERK-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 [facility] 06-12-2023 influenza virus vaccine, unspecified formulation TAI GOODWIN 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 CLERK-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 [facility] 06-12-2023 influenza, injectabl e, quadrivalent, preservative free Renato Canales MD, PhD Work Phone: [facility] 05-18-2022 influenza, injectabl e, quadrivalent, preservative free Renato Canales MD, PhD Work Phone: [facility] 05-18-2022 influenza virus vaccine, unspecified formulation Meri Haywood MD Work Phone: [facility] 04-25-2021 influenza virus vaccine, unspecified formulation TAI GOODWIN APRN-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 [facility] 04-25-2021 influenza, injectabl e, quadrivalent, preservative free Renato Canales MD, PhD Work Phone: [facility] 10-11-2020 Pfizer-BioNTech COVID-19 Vacc 30 MCG/0.3ML Intramuscular Suspension No PCP None [facility] 09-20-2020 Pfizer-BioNTech COVID-19 Vacc 30 MCG/0.3ML Intramuscular Suspension No PCP None [facility] Comment on above: Result Comment: 2023: [id number] 04-16-2020 influenza virus vaccine, unspecified formulation TAI GOODWIN APRN-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 [facility] 04-16-2020 influenza, seasonal, injectable No PCP None [facility] 300 Work Phone: 04-16-2020 zoster vaccine recombinant No PCP None [facility] 07-23-2015 tetanus toxoid, redu veronica diphtheria toxoid, and acellular pertussis vaccine, adsorbed No PCP None [facility] Payers Date Payer Category Payer Unknown [id number] 2024 Unknown [id number] 2024 Medicare [id number] 2024 Self-pay [id number] 2023 Medicare (Managed Care) MMO [employer]ER[employer] DVANTAGE HMO [id number] 2023 Medicare [id number] 2023 Unknown [id number] 2021 Medicaid [facility] MEDICAID [facility] MEDICAID [id number] 2021-Present [phone] [address] [place] [address] Medicaid [id number] 2021 Medicaid [id number] 2019 Worker's Compensation [employer] [id number] 2019-Present [id number] 2019 Worker's Compensation [id number] Worker's Compensation [employer] [id number] 2019-Present [id number] .[id number] 1958 Unknown [id number] 2.16.840.1.055068.3.579.2 .903 1958 Unknown [id number] 2.16.840.1.283638.3.579.2 .903 1958 Unknown [id number] 2.16.840.1.549228.3.579.2 .903 1958 Unknown [id number] 2.16.840.1.277632.3.579.2 .903 1958 Unknown [id number] 2.840.1.537683.3.579.2 .903 1958 Unknown [id number] 2.16840.1.212750.3.579.2 .903 1958 Unknown [id number] 2.16840.1.512884.3.579.2 .90 1958 Unknown [id number] 2.840.1.838021.3.579.2 .90 1958 Unknown [id number] 2.0.1.368788.3.579.2 .627 1958 Unknown [id number] 2.0.1.144772.3.579.2 .627 Unknown Unknown [id number] Unknown [id number] Unknown [id number] Unknown [id number] 2.840.1.324766.3.579.2 .462 Unknown [id number] 2.840.1.713546.3.579.2 .462 Unknown [id number] 2.840.1.681734.3.579.2 .462 Unknown [id number] 2.840.1.851630.3.579.2 .462 Unknown [id number] 2.840.1.503057.3.579.2 .462 Unknown [id number] 2.840.1.765571.3.579.2 .462 Unknown [id number] 2.840.1.831566.3.579.2 .462 Unknown [id number] 2.840.1.046390.3.579.2 .462 Unknown [id number] 2.16.840.1.499738.3.579.2 .462 Unknown [id number] 2.16.840.1.601818.3.579.2 .462 Unknown [id number] 2.16.840.1.977880.3.579.2 .462 Unknown [id number] 2.16.840.1.123218.3.579.2 .462 Unknown [id number] 2.16.840.1.319266.3.579.2 .462 Unknown [id number] 2.16.840.1.165930.3.579.2 .462 Unknown [id number] 2.16.840.1.930251.3.579.2 .462 Unknown [id number] 2.16840.1.520125.3.579.2 .462 Unknown [id number] 2.16.840.1.483603.3.579.2 .462 Unknown [id number] 2.16.840.1.151451.3.579.2 .462 Unknown [id number] 2.16.840.1.190679.3.579.2 .462 Unknown [id number] 2.16.840.1.887627.3.579.2 .462 Unknown [id number] 2.16.840.1.275706.3.579.2 .462 Unknown [id number] 2.16.840.1.815318.3.579.2 .462 Unknown [id number] 2.16.840.1.932162.3.579.2 .462 Unknown [id number] 2.16.840.1.412553.3.579.2 .462 Unknown [id number] 2.16.840.1.543584.3.579.2 .462 Unknown [id number] 2.16.840.1.905772.3.579.2 .462 Unknown [id number] 2.16.840.1.449983.3.579.2 .462 Unknown [id number] 2.16.840.1.434171.3.579.2 .462 Unknown [id number] 2.16.840.1.497469.3.579.2 .462 Unknown [id number] 2.16.840.1.409481.3.579.2 .462 Unknown [id number] 2.16.840.1.065265.3.579.2 .462 Unknown [id number] 2.16.840.1.363038.3.579.2 .462 Unknown [id number] 2.840.1.771043.3.579.2 .462 Unknown [id number] 2.840.1.066746.3.579.2 .462 Unknown [id number] 2.840.1.488805.3.579.2 .462 Unknown [id number] 2.840.1.000359.3.579.2 .462 Unknown [id number] 2.840.1.534690.3.579.2 .462 Unknown [id number] 2.840.1.681636.3.579.2 .462 Unknown [id number] 2.840.1.684432.3.579.2 .462 Unknown [id number] 2.840.1.701875.3.579.2 .462 Unknown [id number] 2.16.840.1.479639.3.579.2 .462 Unknown [id number] 2.16.840.1.222173.3.579.2 .462 Unknown [id number] 2.16.840.1.208212.3.579.2 .462 Unknown [id number] 2.16.840.1.964181.3.579.2 .462 Unknown [id number] 2.840.1.565186.3.579.2 .462 Unknown [id number] 2.16.840.1.020797.3.579.2 .462 Unknown [id number] 2.16.840.1.315536.3.579.2 .462 Unknown [id number] 2.16.840.1.452059.3.579.2 .462 Unknown [id number] 2.16.840.1.164067.3.579.2 .462 Unknown [id number] 2.16.840.1.115936.3.579.2 .462 Unknown [id number] 2.16.840.1.550524.3.579.2 .462 Unknown [id number] 2.16.840.1.365198.3.579.2 .462 Unknown [id number] 2.16.840.1.342135.3.579.2 .462 Unknown [id number] 2.16.840.1.768912.3.579.2 .462 Unknown [id number] 2.16.840.1.239091.3.579.2 .462 Social History Date Type Detail Facility Tobacco smoking stat [facility] Unknown if ever smoked [facility] Start: 1960 Sex Assigned At Not on file O [facility] Start: 11-30-2019 End: 02-12-2025 Tobacco smoking status WAIS Never smoker [facility] Work Phone: Start: 11-30-2019 Alcohol intake Ex-drinker (finding) [facility] Start: 09-19-2021 End: 03-25-2022 Exposure to SARS-CoV-2 (event) Not sure [facility] Start: 11-30-2019 End: 03-25-2022 Tobacco use and exposure Never used [facility] Start: 06-17-2020 End: 04-01-2023 Non-smoker Non-smoker [facility] Work Phone: Start: 09-29-2021 End: 10-12-2024 Alcohol intake Current non-drinker of alcohol (finding) [facility] Start: 10-31-2019 History SDOH Financial 3 [facility] Start: 10-31-2019 History SDOH Food Worry 1 [facility] Start: 10-31-2019 History SDOH Transpo rt Med 2 [facility] Start: 01-14-2022 End: 06-16-2023 Tobacco smoking status NHIS Unknown if ever smoked [facility] Start: 10-30-2019 None [facility] Start: 10-30-2019 Spouse/ Signif icant Other [facility] Start: 09-10-2015 Non-smoker [facility] [facility] Start: 1960 Sex Assigned At Male [facility] Start: 06-17-2020 End: 04-01-2023 Tobacco use panel [facility] Work Phone: How hard is it for y ou to pay for the very basics like food, housing, medical care, and heating Somewhat hard [facility] Work Phone: (I/We) worried wheth er (my/our) food would run out before (I/we) got money to buy more. Never true [facility] Work Phone: In the past 12 month s, has lack of transportation kept you from medical appointments or from getting medications? No [facility] Work Phone: Tobacco smoking status No Smokin g Status Entered [facility] Start: 10-05-2024 End: 10-06-2024 Sex Male (finding) [facility] NEGATED: Highlighted row - - [facility] [address] Work Phone: Medical Equipment Procedure Code Equipment Code Equipment Origin al Text Equipment Identifier Dates Gas Ispan Constellation Intraocular Vision System [id number] 125gm - [id number] Start: 07-16-2021 Sleeve 2.1mm 1mm Silicone 70mm Retinal Round Sterile - [id number] Start: 07-16-2021 Strip Silicone 125x3.5x.75mm Scleral Style 41 - [id number] Start: 07-16-2021 Lens Acrysof Ult rasert +14 Diopter Acrylic Iol 1 Piece Foldable Uv Blue - [id number] Start: 03-24-2022 ([id number]) Metal-backed pat rafia prosthesis ()[id number] FDA Start: 08-25-2023 Coated knee femu r prosthesis ()[id number] FDA Start: 08-25-2023 ([id number]) Coated knee tibi a prosthesis ()[id number] FDA Start: 08-25-2023 ([id number]) Tibial insert ()[id number] FDA Start: 08-25-2023 Goals Date Patient Goal Desired Activity /State Functional Status Date Assessment Result Facility 06-14-2024 Functional Status Other: 7AM-210PM [facility] 06-14-2024 Functional Status Preventative D ressing Intervention Removed [facility] 06-14-2024 Functional Status Door open, Room check performed [facility] 06-14-2024 Functional Status [facility] 06-13-2024 Functional Status [facility] 06-13-2024 Functional Status Independent [facility] 06-13-2024 Functional Status [facility] 06-13-2024 Functional Status [facility] 06-13-2024 Functional Status [facility] 06-12-2024 Functional Status [facility] 06-12-2024 Functional Status [facility] 06-12-2024 Functional Status [facility] 06-12-2024 Functional Status [facility] 06-12-2024 [facility] 06-11-2024 Functional Status Skin Care Prev entative Intervention(s) heel(s)s elevated [facility] 06-11-2024 Functional Status Dinner Percent 80 [facility] 06-11-2024 Functional Status Shower Moderat e assistance 1 [facility] 06-11-2024 [facility] 06-10-2024 Functional Status [facility] 06-10-2024 Functional Status Lemuel Ho [facility] 06-10-2024 Functional Status [facility]uel Ho [facility] 06-09-2024 Functional Status [facility] 06[facility]09-2024 Functional Status [facility] 06-09-2024 Functional Status [facility] 06-08-2024 Functional Status [facility] 06-07-2024 Functional Status [facility] 06-07-2024 Functional Status [facility]uel Poon [facility] 06-06-2024 Functional Status Supervised [facility] Poon [facility] 06-06-2024 Functional Status Done [facility] Poon [facility] 06-05-2024 Functional Status Fluid Restrict ion Maintained [facility] 06-04-2024 Functional Status Returned to bed [facility] 06-04-2024 [facility] Functional Status Done [facility] 06-03-2024 Functional Status [facility]uel [facility] 06-03-2024 Functional Status [facility]uel [facility] 06-03-2024 Functional Status [facility]uel P[facility] 06-02-2024 Functional Status bilateral knee high [facility] 06-02-2024 Functional Status Lemuel Poon [facility] 05-31-2024 Functional Status Multilevel kate e, 1st floor bedroom, 1st floor bathroom, Other: 6 steps to kitchen [facility] 05-31-2024 Functional [facility] Are you deaf, or do you have serious difficulty hearing No 01/08/2024 11:22 AM Katelyn Brambila, DEREK No [facility] 01-08-2024 Are you blind, or do you have serious difficulty seeing, even when wearing glasses No 01/08/2024 11:22 AM Katelyn Brambila, RN No [facility] 01-08-2024 Do you have serious difficulty walking or climbing stairs No 01/08/2024 11:22 AM Katelyn Brambila, DEREK No [facility] 01-08-2024 Do you have difficul ty dressing or bathing Yes 01/08/2024 11:22 AM Katelyn Brambila, RN Yes [facility] 01-08-2024 Because of a physica l, mental, or emotional condition, do you have difficulty doing errands alone such as visiting a physician's office or shopping No 01/08/2024 11:22 AM Katelyn Brambila, DEREK No [facility] 09-03-2023 Functional status Ambulates;Hughes le Feet;Bathroom Privilege [facility] Work Phone: 09-03-2023 Functional status Ambulates;Hughes le Feet;Bathroom Privilege [facility] Work Phone: 05-24-2023 Functional Status Awake [facility] 05-24-2023 Functional Status [facility] NEGATED: Highlighted row Functional performance Functional status health issues are not documented [facility] Work Phone: Mental Status Date Assessment Result Facility 03-01-2025 Cognitive function Awake;Alert;A ppropria te;Follows Commands [facility] Work Phone: 02-22-2025 Cognitive function Arousable To Voice/Name [facility] Work Phone: 02-19-2025 Cognitive function Awake;Alert;A ppropria te;Follows Commands [facility] Work Phone: 02-14-2025 Cognitive function Voice/Name [facility] Work Phone: 02-12-2025 Cognitive function Voice/Name [facility] Work Phone: 01-11-2025 Cognitive function Voice/Name [facility] Work Phone: 12-22-2024 [facility] function [facility] Work Phone: 12-18-2024 Cognitive function Awake;Alert;A ppropria te;Follows Commands [facility] Work Phone: 12-05-2024 [facility] Work Phone: 09-28-2024 Cognitive function Voice/Name [facility] Work Phone: 06-28-2024 Cognitive function Awake;Alert;A ppropria [facility] Work Phone: 06-14-2024 Mental Status Oriented x 4 [facility] 06-13-2024 Mental Status [facility] 06-12-2024 Mental Status [facility] 01-08-2024 Because of a physical, mental, or emotional condition, do you have serious difficulty concentrating, remembering, or making decisions No 01/08/2024 11:22 AM Katelyn Brambila RN [facility] 11-18-2023 Cognitive function Awake;Alert;A [facility]pri[facility] Work Phone: 09-03-2023 Cognitive function Voice/Name [facility] Work Phone: NEGATED: Highlighted row Cognitive function [Interpretation] Cognitive status health issues are not documented [facility] Work Phone: Clinical Notes 10-31-2019 to 02-22-2025 Note Date & Type Note Facility 02-22-2025 Progress note [facility] 02-22-2025 Progress note Note Date/Time February 22, 2025 12:18pm [facility] [place] [address] OFFICE VISIT Date of Service: 02/22/25 1133 MR#: [id number] Acct: [id number] Name: KHOA CONNORS Jr. Rep #: [id number] : 1960 From: Herbert blanco MD Age/Sex: 64/M Location: [facility] Status: Signed HPI Subjective Date of Service 02/22/25 Chief Complaint Anemia due to MDS History of Present Illness 64-year-old gentleman with chronic pancytopenia and symptomatic from anemia who was evaluated for blood clots in 2022 with upper and lower GI endoscopies (by Dr. Mason) and to his knowledge no source of blood loss was identified . Also in 2022 he was diagnosed with B12 deficiency and was started on B12 injections under the care of his PCP Dr. Gilmore. In August 2023 he underwent knee replacement and following surgery he developed a rather acute on chronic symptomatic anemia. In November 2023 was confirmed iron deficient with severe anemia hemoglobin down to 6.7 g per DL when he received transfusion with packed red blood cells, IV iron and was started on an oral iron supplement. August 01 2024 capsule endoscopy study: Multiple lymph injected lesions withoutstigmata for active bleed during the study. See lab section for pharmaceutical specialty representative blood counts. In 2023 despite correction of iron deficiency he became transfusion dependent. June 2024 bone marrow aspirate and biopsy: BONE MARROW DIAGNOSIS Bone marrow core, clot and aspirate smears: Normocellular marrow with trilineage hematopoiesis. See bone marrow study and comment. SJ.mr 06/29/2024 COMMENT A. Immunohistochemistry ([id number]) supports the above diagnosis. Flow cytometry study from [facility] show no significant immunophenotypic abnormality. Complete report is viewable in patient?s EMR. Fish result: Normal MDS panel Interpretation: Negative SPECIFIC PROBE RESULST 5q: Normal 7q: Normal 8q: Normal 20q: Normal Cytogenetics studies are pending. Clinical correlation and appropriate follow up are necessary. Case has been reviewed in consultation with Dr. Akbar who concurs with the abovediagnosis. IDC:AM BONE MARROW STUDY Slides are reviewed. CBC DATE: 06/28/2024 WBC 3.1; RBC 2.39; HGB 7.6; HCT 25.8; MCV 107.9; RDW 22.9; PLTS 102,000 SEGS 63.2%; LYMPHS 21.8%; MONOS 7.2%; EOS 7.2%; BASOS 0.3% PERIPHERAL SMEAR: Submitted Pancytopenia. RBC: Macrocytic anemia. WBC: Leukopenia and neutropenia. The WBC count is compatible to as reported above. PLTS: Mildly decreased. BONE MARROW ASPIRATE DIFFERENTIAL: Not performed. ASPIRATE FINDINGS: Site: Not specified Aspicular, Hypocellular Comment: Marked hemodilution is noted. All the submitted smears are examined. Scattered erythroid and myeloid cells are noted. Significant dysplastic changes are not seen. CORE BIOPSY FINDINGS: Site: Not specified Adequacy: adequate Cellularity: 40% M/E ratio: Mild erythroid hyperplasia is noted Megakaryocytes: Present and adequate in number. Bony trabeculae: No bone tissue is identified. Granulomas: Absent. Lymphoid aggregate: Absent. Atypical infiltrate: Absent. Comment: Immunohistochemistry ([id number]) does not show significant increase of plasma cells. Blasts are not increased. ASPIRATE CLOT FINDINGS: Site: Not specified Marrow particles: a few Cellularity: 40% M/E ratio: Mild erythroid hyperplasia is noted Megakaryocytes: Present and adequate in number. Bony trabeculae: No bone tissue is identified. Granulomas: Absent. Lymphoid aggregate: Absent. Atypical infiltrate: Absent SPECIAL STAINS WITH MATCHED CONTROLS: Iron: 2+, significant increase of atypical or ring sideroblasts are not seen. Reticulin: No significant increase of reticulin fibers is noted. PAS: Highlights myeloid cells and megakaryocytes. BONE MARROW GROSS A - Received is a container labeled with the patient's name and designated [place] core. The specimen consists of multiple fragments of blood clots measuring in aggregate 2.0 x 0.5 x 0.1cm. No obvious fragment of bone is identified. Slip Cover Maker sections are submitted inone cassette after decalcification. B - Received labeled with the patient's name and designated Bone marrow clot is a specimen that consists of approximately 6 ml of bloody fluid that on filtration yields multiple minute fragments of blood clots measuring in aggregate 2.0 x 1.0 x 0.1 cm. The specimen is totally submitted in one cassette. C - Also received are 12 unstained and 1 peripheral stained slide. The unstainedslides are submitted for appropriate staining. Also received are 2 green top tubes which are sent to our reference lab for flow, cytogenetics, MDS. 06/28/2024 / TC: CPT: 50129, 94066, 72225 x2, 51264 x3, 10016 ADDENDUM MDS FISH PANEL RESULT FROM [facility]: FISH RESULT: Normal MDS panel INTERPRETATION: NEGATIVE 5q: Normal 7q: Normal 8q: Normal 20q: Normal ADDENDUM CYTOGENETICS REPORT FROM [facility] RESULT: 46,XY[20] INTERPRETATION: Normal male karyotype was observed in twenty metaphases analyzed Treatment summary and response: 2023?ongoing transfusion was packed red blood cells. Erythrocyte stimulating agent therapy July 27, 2024 [facility] Medical History History of echocardiogram MDS (myelodysplastic syndrome), low grade Deep vein thrombosis (DVT) of right upper extremity Pancytopenia Back pain GLENN (obstructive sleep apnea) Hypothyroid Edema Nocturia Muscle spasm Vitamin B12 deficiency Iron deficiency anemia History of diabetes mellitus Chronic anemia Compression fracture of L2 Osteoarthritis of left knee Diabetes Bladder disease Dietary restriction Injury of head and neck History of pain when walking Walker as ambulation aid Foot drop, right Arthritis Chronic pain Non-smoker Surgical History Hx of vertebroplasty History of total left knee replacement Hx of left cataract extraction Hx of eye surgery Family History Other Multiple sclerosis Social History household members: spouse Smoking Status: Never smoker alcohol intake: never substance use type: does not use ROS ROS Narrative Last transfusion was February 05, 2025 Constitutional Constitutional: Reports fatigue and other Details: His weight fluctuates depending on edema Has been feeling overall okay in the past month ; Denies anorexia or fever(s) Eyes Eyes: Reports systems reviewed and no addt'l complaints, except as documented ENT HEENT: Reports systems reviewed and no addt'l complaints, except as documented; Denies bleeding gums or epistaxis Cardiovascular Cardiovascular: Reports edema and other Details: Edema resolves when he takes an extra Lasix ; Denies chest pain Respiratory/Chest Respiratory/Chest: Reports systems reviewed and no addt'l complaints, except as documented and dyspnea on exertion Gastrointestinal Gastrointestinal: Reports systems reviewed and no addt'l complaints, except as documented and other Details: Stools are dark at times ; Denies change in bowel habits, hematochezia or melena Genitourinary Genitourinary: Reports systems reviewed and no addt'l complaints, except as documented; Denies hematuria Musculoskeletal Musculoskeletal: Reports systems reviewed and no addt'l complaints, except as documented Integumentary Integumentary: Reports systems reviewed and no addt'l complaints, except as documented; Denies bleeding lesions Neurologic Neurologic: Reports systems reviewed and no addt'l complaints, except as documented Psychiatric Psychiatric: Reports systems reviewed and no addt'l complaints, except as documented Endocrine Endocrinology: Reports systems reviewed and no addt'l complaints, except as documented and flushing Hematologic/Lymphatic Hematologic/Lymphatic: Reports anemia Intake Vital Signs 02/01/25 09:34 02/21/25 13:19 02/22/25 11:35 02/22/25 11:44 Height 6 ft 5 in 6 ft 5 in 6 ft 5 in 6 ft 5 in Weight: 166.468 kg BMI 43.4 BP 136/68 H Blood Pressure Location Lt brachial Position Sitting Respiration 18 Pulse 77 Pulse Source Monitor Temp 98.5 F Temperature Source Temporal Artery Pulse Oximetry (%) 93 Oxygen Delivery Method room air Intake Is patient in pain?: Yes (back pain ) Pain scale (1-10): 6 Allergies hydromorphone (From Dilaudid) Allergy (Severe, Verified 02/22/25 11:39) Anaphylaxis gabapentin Adverse Reaction (Intermediate, Verified 02/22/25 11:39) HALLUCINATIONS fentanyl Adverse Reaction (Verified 02/22/25 11:39) Shortness of breath Medications ?Medication ?Instructions ?Recorded ?Confirmed ?Type levothyroxine 75 mcg tablet 75 mcg PO DAILY 01/10/24 0 02/22/25 History furosemide 40 mg tablet 40 mg PO DAILY PRN edema 02/22/25 History sodium sul 1.479 gram-potas ch See Rx Instructions PO PER PKG DIR 12/26/24 02/22/25 Rx 0.188 gram-magnes sul 0.225 gram #24 tabs tablet (Sutab) Have you fallen in the past year?: No Central Venous Access Central Venous Access: No Laboratory Tests 01/15/22 09/08/22 06/17/23 15:17 14:02 09:38 WBC 4.2 L Hgb 11.0 L 12.1 L MCV 94.8 H 102.9 H Plt Count 103 L 108 L Absolute Neuts (auto) 2.5 2.9 Retic Count 1.50 Iron Saturation 5.9 L Ferritin 6 L Erythropoietin Vitamin B12 207 L 11/23/23 12/24/23 12/29/23 15:07 15:10 07:03 WBC Hgb 7.3 L MCV Plt Count Absolute Neuts (auto) Retic Count 3.12 H Iron Saturation 4.2 L Ferritin Erythropoietin Vitamin B12 476 12/30/23 12/31/23 01/18/24 07:01 06:24 16:57 WBC 3.7 L 3.9 L Hgb 7.8 L 7.7 L 9.2 L MCV 105.9 H 102.3 H Plt Count 109 L 157 Absolute Neuts (auto) 2.3 2.6 Retic Count 2.18 H Iron Saturation 10.2 L Ferritin 11 L 31 Erythropoietin Vitamin B12 02/07/24 03/07/24 03/20/24 14:35 17:01 14:55 WBC 3.5 L 3.3 L 2.8 L Hgb 9.2 L 7.0 L 7.6 L MCV 103.7 H 108.0 H 108.2 H Plt Count 150 117 L 126 L Absolute Neuts (auto) 2.1 2.1 1.7 L Retic Count Iron Saturation 6.4 L Ferritin 12 L Erythropoietin Vitamin B12 05/08/24 05/29/24 05/30/24 14:48 05:21 05:40 WBC 3.2 L Hgb 5.2 L* 8.0 L 8.2 L MCV 104.5 H Plt Count 138 L 133 L 140 L Absolute Neuts (auto) 2.2 Retic Count 3.14 H Iron Saturation 3.5 L Ferritin 7 L Erythropoietin Vitamin B12 05/31/24 06/20/24 07/06/24 05:29 08:03 10:00 WBC 4.2 L Hgb 8.4 L 7.7 L 7.4 L MCV 104.4 H Plt Count 141 L 125 L Absolute Neuts (auto) Retic Count Iron Saturation 37.0 Ferritin 133 Erythropoietin Vitamin B12 0107/19/24 07/27/24 10:03 09:35 11:15 WBC 2.6 L Hgb 7.5 L 7.0 L 7.6 L MCV 108.3 H Plt Count 111 L Absolute Neuts (auto) 1.8 L Retic Count Iron Saturation 14.5 L Ferritin 30 Erythropoietin 348.6 H Vitamin B12 675 08/03/24 08/10/24 08/17/24 08:37 08:55 10:03 WBC Hgb 8.1 L 9.0 L 9.2 L MCV Plt Count Absolute Neuts (auto) Retic Count Iron Saturation Ferritin Erythropoietin Vitamin B12 08/24/24 08/31/24 09/07/24 09:33 10:03 08:48 WBC Hgb 8.7 L 8.6 L 8.6 L MCV Plt Count Absolute Neuts (auto) Retic Count Iron Saturation 11.2 L Ferritin 29 Erythropoietin Vitamin B12 09/14/24 09/21/24 09/28/24 08:35 09:07 09:25 WBC Hgb 9.1 L 8.8 L 8.0 L MCV Plt Count Absolute Neuts (auto) Retic Count Iron Saturation 15.0 Ferritin 41 Erythropoietin Vitamin B12 10/05/24 10/12/24 10/19/24 08:35 08:32 09:03 WBC Hgb 8.2 L 8.9 L 8.1 L MCV Plt Count Absolute Neuts (auto) Retic Count Iron Saturation 9.0 Ferritin 43 Erythropoietin Vitamin B12 10/26/24 11/02/24 11/09/24 09:38 09:45 08:27 WBC Hgb 7.3 L 7.6 L 8.9 L MCV Plt Count Absolute Neuts (auto) Retic Count Iron Saturation Ferritin Erythropoietin Vitamin B12 11/16/24 11/27/24 12/21/24 10:40 13:20 10:08 WBC Hgb 9.5 L 7.7 L MCV Plt Count Absolute Neuts (auto) Retic Count Iron Saturation 15.0 9.0 Ferritin 93 49 19 L Erythropoietin Vitamin B12 12/25/24 01/01/25 01/08/25 10:00 09:30 09:13 WBC Hgb 8.1 L 7.9 L 8.2 L MCV Plt Count Absolute Neuts (auto) Retic Count Iron Saturation Ferritin Erythropoietin Vitamin B12 01/15/25 01/29/25 02/08/25 09:50 09:10 09:40 WBC Hgb 7.8 L 8.1 L MCV Plt Count Absolute Neuts (auto) Retic Count Iron Saturation 13.0 9.0 Ferritin 79 61 Erythropoietin Vitamin B12 02/12/25 02/15/25 02/19/25 09:12 09:00 09:25 WBC Hgb 7.9 L 8.3 L 8.4 L MCV Plt Count Absolute Neuts (auto) Retic Count Iron Saturation Ferritin Erythropoietin Vitamin B12 02/22/25 11:00 WBC Hgb 8.2 L MCV Plt Count Absolute Neuts (auto) Retic Count Iron Saturation 13.0 Ferritin 63 Erythropoietin Vitamin B12 Exam Physical Exam Narrative ECOG 2, Const alert and oriented x3 General Appearance: ill appearing Positive for chronically Nutritional Appearance: morbidly obese Coding Level of Care Code Off vis,est,level 3 Exam Problem Focused Diagnoses MDS (myelodysplastic syndrome), low grade D46.Z Pancytopenia D61.818 Vitamin B12 deficiency E53.8 Iron deficiency anemia due to chronic blood loss D50.0 Iron deficiency anemia type: chronic blood loss Assessment and Plan Assessment and Plan (1) MDS (myelodysplastic syndrome), low grade: Status: Chronic (2) Pancytopenia: Status: Chronic (3) Vitamin B12 deficiency: Status: Chronic (4) Iron deficiency anemia: Status: Chronic Qualifiers: Iron deficiency anemia type: chronic blood loss Qualified Code(s): D50.0 - Iron deficiency anemia secondary to blood loss (chronic) Plan 64-year-old gentleman with multiple chronic medical problems and a chronic pancytopenia, with macrocytic RBCs since at least 2021 with superadded acute anemia in 2023 with evidence for acquired and recurring iron deficiency consistent with external blood loss most likely UGI. In 2022 he underwent upper and lower GI endoscopy, no bleeding lesions were identified (under the care of Dr. De Jesus, pathology showed atrophic gastritis, colonic tubular adenoma). In August 2023 he underwent a knee replacement which is another potential source for external blood loss. In 2022 he was confirmed to have B12 deficiency with low B12 level, started replacement by injection nonetheless macrocytosis did not completely resolve. July 2024 he underwent capsule endoscopy study revealing multiple lymphangectatic lesions but none was bleeding during the study As of January 2024, he developed a leukopenia with preserved neutrophil count with no recurrent bacterial infections therefore not clinically significant, his thrombocytopenia remains mild above 100 K. June 2024 after correction of his iron deficiency persistent now transfusion dependent macrocytic anemia he underwent a bone marrow biopsy showing normocellular marrow with trilineage hematopoiesis no excess blasts no cytogenetic abnormalities or FISH abnormalities. These findings (full marrow, empty peripheral blood) are most consistent with primary bone marrow disease namely MDS low risk. [place] serum erythropoietin level 348 (July 19, 2024) Started erythrocyte stimulating agent therapy for anemia due to MDS July 27, 2024. He has shown a favorable response with an improvement in H&H and became transfusion independent since July 2024 except for 1 occasion in October 2024 probably related to an acute episode of bleeding. His cytopenias are multifactorial includin. Myelodysplastic syndrome, low risk; using the revised international prognostic scoring system (IPSS R) and primary myelodysplastic syndrome the patient's course 2.5, low risk, 1.4 having good cytogenetics, 0 points for absence of increased blasts and marrow, 1.5 points for hemoglobin less than 8 g per DL, 0 points for platelets above 100 K0.4 absolute neutrophil count of over 800). The estimated risk for AML evaluation is approximately 25% over 10 years. However the patient has evidence of transfusion dependent bone marrow failure. 2. Recurrent iron deficiency since 2023 from external blood loss most likely chronic not identified GI bleeding. His anemia and iron deficiency recur despite supplementation with oral (earlier but no longer able to tolerate due to GI side effects) and therefore he has been repeatedly given IV iron with improvement of iron stores then recurrence. 3. B12 deficiency now corrected with supplementation Chronic comorbid conditions: Chronic heart failure, sleep apnea, morbid obesity, chronic respiratory failure, hypothyroidism and asthenia. Plan: 1. For low risk MDS and a medically unfit and frail patient due to chronic comorbidities and aggressive approach with evaluation for stem cell bone marrow transplant is not advisable. With baseline [place] serum erythropoietin level less than 500 he is a candidate for erythrocyte stimulating agent therapy which was started July 27, 2024 with dose adjustments. His H&H did initially rise and he has not needed as frequent blood transfusions however this is complicated with the fact that he continues to have external blood loss evidenced by drop in ferritin and iron saturation. Gradually the dose of erythrocyte stimulating agent therapy has been increased and most recently he failed to respond to Retacrit 60,000 units twice weekly. He has responded but remains below target hemoglobin of 10 to 11.5 g per DL. Aranesp has been denied by insurance twice. Will request insurance authorization for Retacrit 60,000 units 3 times per week and reevaluate in 4 weeks. In future when/if MDS becomes unresponsive to erythrocyte stimulating agent therapy and therapy to consider would be Luspatercept (patient given printed patient educational materials from up-to-date. 2. Transfuse with packed red blood cells for hemoglobin less than 8 g per DL due to significant comorbid cardiovascular disease. Last transfusion with packed red blood cells was February 05, 2025 3. Continue B12 injections long-term under the care of his primary care doctor Deirdre. 3. He is unable to tolerate oral iron due to GI side effects and therefore will prescribe iron IV to correct any recurrent iron deficiency. Following IV iron there is no deficiency in labs February 2025. 5. In May 2024 he developed an acute right upper extremity DVT complicating a PICC line insertion, he was placed on systemic anticoagulation initially planned a 3-week course after discontinuation of the PICC line however he had a rather precipitous drop in his H&H and therefore was discontinued before completion for concern that the benefit is outweighing the risks of ongoing bleeding. 6. He is a difficult IV access Central venous access is now needed in the future for his lab and treatment. Prophylactic anticoagulation is not advisable since the source of GI blood loss has not been remedied but may consider low-dose aspirin and if he fails aspirin and no bleeding will consider low-dose Eliquis with no initial loading. 7. Chronic GI bleeding, last upper GI was 02/28/2025 showed bleeding gastric antral vascular ectasia's. These were treated with argon plasma coagulation. He needs follow-up and further APC, defer to Dr. Whitley. Patient was seen with his , impression and plan discussed. Herbert Toussaint MD Rubbing Bed Operator, [facility] Divisions of Medical Oncology & Hematology Department of Internal Medicine [place] [id number] This note was generated using a voice recognition system software. Although it was reviewed by the author prior to finalization, it may still contain incorrect words, spelling, and punctuation that were not noted when reviewing prior to saving. If a clinically significant typo or inaccurately typed phrase is noted, please notify the author. Clinical Quality Measures Falls Risk Screening/Assistive Devices Have you fallen in the past year?: No 02/22/25 1218 <Electronically signed by Herbert aldana MD> Date _ Herbert Toussaint MD Cosigner Signature: Date (if applicable) CC: Dr. Damian Cross MD; Josephine Hawk, ~ [employer] Work Phone: 1(740) 851-129708-06-2025 Consult note [facility] Medical Records Department [address] [place] [id number] Anesthesia Postop Eval II 02/14/25 1449 MR#: [id number] Acct: [id number] Name: KHOA CONNORS Rep #:[id number] : 1960 64 From: Luis F Castillo MD PCP: Care Physician,No Primary Status :[facility] Y Race: C Location: [address] Anesthesia Postop Eval I Sum Postop Eval Completion status Anesthesia document: Postop Eval 1 completed: Yes Anesthesia Postop Eval I Summary Anesthesia Postop Eval I Summary: Anesthesia Postop Eval I: Assessment Summary Airway patent Yes 02/14/25 14:47 [email or web address] Spontaneous unlabored Yes 02/14/25 14:47 [email or web address] respirations Mental status Awake 02/14/25 14:47 [email or web address] nausea No 02/14/25 14:47 [email or web address] Vomiting No 02/14/25 14:47 [email or web address] Anesthesia Postop Eval I: Fluid Summary Crystalloid volume administer 500 02/14/25 14:47 [email or web address] (ml) Colloids volume administered ( ml) Blood Product volume administered (ml) Total IV fluid infused 500 02/14/25 14:47 [email or web address] Anesthesia Postop Eval I: Summary Notes Anesthesia Complication Yes 02/14/25 14:47 [email or web address] Anesthesia Complication 2 infiltrated IV's 02/14/25 14:47 [email or web address] Comment: , O2 desat d/t GLENN , colonoscopy cx Post-operative progress note Anesthesia: Postop Eval II Evaluation Mental status: Awake Pain Level: 0 nausea: No Vomiting: No Progress Note Post-operative progress note: Patient with multiple IV attempts. 2 IVs infiltrated in the right arm. The IVs were stopped immediately and IV access obtained elsewhere. Patient was recommended to haveeither a central line or port placement prior to further procedures. Complications Anesthesia Complication: No 02/14/25 1450 > Date _ Luis F Payne Signature: Date CC: ~ Signed [facility]08-06-2025 Consult note [facility] Medical Records Department [address] [place] [address] Anesthesia Postop Eval I 02/14/25 1415 MR#: [id number] Acct: [id number] Name: DORYKHOA Jr. Rep #:[id number] : 1960 64 From: Butch Roche PCP: Care Physician,No Primary Status :[facility] Y Race: C Location: [place] [address] Anesthesia: Postop Eval I Current Vital Signs Temperature: 99 F Pulse Rate: 92 Blood Pressure: 154/75 Respiratory Rate: 16 Pulse Ox: 95 Assessment Airway patent: Yes Spontaneous unlabored respirations: Yes Mental status: Awake nausea: No Vomiting: No Anesthesia Complication: Yes Anesthesia Complication Comment:: 2 infiltrated IV's, O2 desat d/t GLENN, colonoscopy cx Fluid Hydration Crystalloid volume administer (ml): 500 Total IV fluid infused: 500 Progress Note Anesthesia document: Postop Eval 1 completed: Yes 02/14/25 1447 > Date _ Butch Payne Signature: Date CC: ~ Signed [facility]08-06-2025 Procedure note [facility] Medical Records Department [address] [place] [address] EGD Report MR#: [id number] Acct: [id number] Name: KHOA CONNORS Jr. Rep #:[id number] : 1960 64 From: Josephine Hawk DO PCP: Care PhysicianAdore Primary Status :[facility] Patient Name: Khoa Connors Procedure Date: 02/14/2025 12:46 PM Date of : 1960 Age: 64 Procedure: Upper GI endoscopy Indications: Iron deficiency anemia secondary to chronic blood loss, Iron deficiency anemia Providers: Josephine Hawk DO Referring MD: No Primary Care Physician Medicines: Monitored Anesthesia Care Patient Profile: This is a 64 year old male. Refer to note in patient chart for documentation of history and physical. Patient has symptoms. Complications: No immediate complications. Procedure: Pre-Anesthesia Assessment: - Prior to the procedure, a History and Physical was performed, and patient medications and allergies were reviewed. The patient is competent. The risks and benefits of the procedure and the sedation options and risks were discussed with the patient. All questions were answered and informed consent was obtained. Patient identification and proposed procedure were verified by the physician. Mental Status Examination: normal. Airway Examination: normal oropharyngeal airway and neck mobility. Prophylactic Antibiotics: The patient does not require prophylactic antibiotics. Prior Anticoagulants: The patient has taken no anticoagulant or antiplatelet agents except for NSAID medication. ASA Grade Assessment: III - A patient with severe systemic disease. After reviewing the risks and benefits, the patient was deemed in satisfactory condition to undergo the procedure. The anesthesia plan was to use monitored anesthesia care (MAC). Immediately prior to administration of medications, the patient was re-assessed for adequacy to receive sedatives. The heart rate, respiratory rate, oxygen saturations, blood pressure, adequacy of pulmonary ventilation, and response to care were monitored throughout the procedure. The physical status of the patient was re-assessed after the procedure. After obtaining informed consent, the endoscope was passed under direct vision. Throughout the procedure, the patient's blood pressure, pulse, and oxygen saturations were monitored continuously. The pediatric colonoscope was introduced through the mouth, and advanced to the third part of the duodenum. Small bowel enteroscopy was deemed necessary. The upper GI endoscopy was extremely difficult due to the patient's oxygen desaturation, the patient's inability to tolerate anesthesia and the lack of IV access. Successful completion of the procedure was aided by having the specialized IV team obtain IV access and obtaining ultrasound guided IV access. The patient tolerated the procedure fairly well. Scope In: 1:11:32 PM Scope Out: 2:02:29 PM Total Procedure Duration Time 0 hours 50 minutes 57 seconds Findings: The examined esophagus was normal. 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 Coagulation for hemostasis using argon plasma at 0.4 liters/minute and 20 nelson was [Partially successful]. No gross lesions were noted in the entire examined duodenum. Impression: - Normal esophagus. - Gastric antral vascular ectasia with bleeding. Treated with argon plasma coagulation (APC). - No gross lesions in the entire examined duodenum. - No specimens collected. Recommendation: - Discharge patient to home. - Resume previous diet. - Continue present medications. - Port placement Procedure Code(s): --- Professional --- 74177, Small intestinal endoscopy, enteroscopy beyond second portion of duodenum, not including ileum; with control of bleeding (eg, injection, bipolar cautery, unipolar cautery, laser, heater probe, stapler, plasma drywall mechanic) CPT copyright 2021 [employer] [employer]. All rights reserved. The codes documented in this report are preliminary and upon sheet catcher review may be revised to meet current compliance requirements. Josephine Hawk DO 02/14/2025 2:20:29 PM This report has been signed electronically. Number of Addenda: 0 Note Initiated On: 02/14/2025 12:46 PM 02/14/25 1435 Date _ Josephine Flores Signature: Date (if indicated) CC: No Primary Care Physician; Josephine Hawk DO ~ Date Dictated: 02/14/25 1246 Date Transcribed: Cna Hha: RF Signed [facility]08-06-2025 Procedure note [facility] Medical Records Department [address] [place] [address] Provation Physician Letter MR#: [id number] Acct: [id number] Name: KHOA CONNORS Jr. Rep #:[id number] : 1960 64 From: Josephine Hawk DO PCP: Care Physician,No Primary Status :[facility] 02/14/2025 No Primary Care Physician Re : Upper GI endoscopy procedure for Khoa Connors Dear Care Physician This procedure was performed on Wednesday, February 14, 2025. My impressions and recommendations are as follows: Impressions : - Normal esophagus. - Gastric antral vascular ectasia with bleeding. Treated with argon plasma coagulation (APC). - No gross lesions in the entire examined duodenum. - No specimens collected. Recommendations : - Discharge patient to home. - Resume previous diet. - Continue present medications. - Port placement My findings are described in the full procedure note, which is enclosed. If I can be of further assistance, please feel free to contact me at . Sincerely, Josephine Hawk DO 02/14/2025 2:20:29 PM This report has been signed electronically. 02/14/25 1435 Date _ Josephine Flores Signature: Date (if indicated) CC: No Primary Care Physician; Josephine Hawk DO ~ Date Dictated: 02/14/25 1246 Date Transcribed: Cna Hha: RF Signed [facility]08-06-2025 History and physical note Author Josephine Hawk [facility] Note Date/Time February 14, 2025 11: 48am [facility] Medical Records Department [address] [place] [address] History & Physical Exam 02/14/25 1145 MR#: [id number] Acct: [id number] Name: KHOA CONNORS Jr. Rep #:[id number] : 1960 64 From: Josephine Hawk DO PCP: Care Physician,No Primary Status :[facility] Location: [place] [address] HPI - General General Date of Admission: 02/14/25 Date of Service: 02/14/25 Chief Complaint: Anemia HPI Narrative KHOA CONNORS, is a 64 M who presentsChief Complaint: chronic anemia [facility] admission 05.17.24-05.30.24 w/ increasing sob and lower extremity swelling. Hemiglobin several says prior was 5.4 and he received 2 unites of backed red blood cells. He was diuresed and put on BiPAP with no response. He was ultimately put intubated and placed in the ICU. He He has been struggling with anemia for a long time and follows with Dr. Song. Colonoscopy 05.24.24; with sessile polyp in the cecum, colonic AVMs, and distal sigmoid polyp. Pathology unknown Pt tells me he had EGD at the same time but we do not have this record Last OV 06.22.24: Pt has been doing ok since discharge. He continues to have fatigue. He tells me he has been anemic for many years with no etiology. He was referred to us by Dr. Gee for further work up. He has been on iron therapy.Pt did have a colonoscopy a year ago with Dr. Mason that showed on AVM and a polyp. He denies seeing blood in his stool, melena, abdominal pain, heartburn orn/v. Capsule endoscopy 08.10.24: no signs of acute or chronic blood lose seen on study OV 12.26.24 Pt continues to have anemia and iron deficiency. He denies GI symptoms. He does not see blood in his stool. [facility] Medical History History of echocardiogram MDS (myelodysplastic syndrome), low grade Deep vein thrombosis (DVT) of right upper extremity Pancytopenia Back pain GLENN (obstructive sleep apnea) Hypothyroid Edema Nocturia Muscle spasm Vitamin B12 deficiency Iron deficiency anemia History of diabetes mellitus Chronic anemia Compression fracture of L2 Osteoarthritis of left knee Diabetes Bladder disease Dietary restriction Injury of head and neck History of pain when walking Walker as ambulation aid Foot drop, right Arthritis Chronic pain Non-smoker Home Medications ?Medication ?Instructions ?Recorded ?Last Taken ?Type levothyroxine 75 mcg tablet 75 mcg PO DAILY 01/10/24 U nknown History furosemide 40 mg tablet 40 mg PO DAILY PRN edema Unknown History sodium sul 1.479 gram-potas ch See Rx Instructions PO PER PKG DIR 12/26/24 Unknown Rx 0.188 gram-magnes sul 0.225 gram #24 tabs tablet (Sutab) Allergy/AdvReac Type Severity Reaction Status Date / Time hydromorphone (From Dilaudid) Allergy Severe Anaphylaxis Verified 02/12/25 08:52 gabapentin AdvReac Intermediate HALLUCINATI Verified 02/12/25 08:52 ONS Family History Other Multiple sclerosis Surgical History Hx of vertebroplasty History of total left knee replacement Hx of left cataract extraction Hx of eye surgery Social History household members: spouse Smoking Status: Never smoker alcohol intake: never substance use type: does not use ROS Constitutional Constitutional: Denies fatigue, fever(s), poor appetite, weight gain or weight loss Gastrointestinal Gastrointestinal: Denies belching, bloating, change in bowel habits, change in stool character, chewing difficulty, coffee ground emesis, constipation, cramping, diarrhea, dyspepsia, dysphagia, early satiety, excessive flatus, fecalincontinence, heartburn, hematemesis, hematochezia, hemorrhoids, loose stools, melena, nausea, odynophagia, rectal bleeding, tenesmus, vomiting or weight changes Physical Exam Narrative ECOG 2, Const alert, oriented x3, no apparent distress and healthy appearing General Appearance: cooperative Nutritional Appearance: morbidly obese GI normal to inspection, nondistended, normoactive bowel sounds, soft to palpation,non-tender and non-distended Percussion: normal to percussion Rectal Exam: deferred Assessment & Plan Assessment/Plan (1) Anemia: QUALIFIERS: Anemia type: bone marrow failure Bone marrow failure anemia type: other bone marrow failure Qualified Code(s): D61.89 - Other specified aplastic anemias and other bone marrow failure syndromes PLAN: Assessment and Plan Assessment and Plan (1) Anemia: Status: Chronic Qualifiers: Anemia type: bone marrow failure Bone marrow failure anemia type: otherbone marrow failure Qualified Code(s): D61.89 - Other specified aplastic anemias and other bone marrow failure syndromes Comment: Myelodysplastic syndrome Plan: Khoa is a 64 yo male pt here today for f/u regarding his ongoing anemia. Pt has MDS and has been seeing oncology. Bi directional endoscopy by Dr. Mason A few years back with one polyp and AVM. He has iron infusions however his iron level continues to downtrend. Capsule endoscopy was negative for bleeding in hissmall bowel. He will undergo repeat colonoscopy and EGD to re assess for bleeding in his GI tract. -Colonoscopy and EGD -f/u after procedures (2) Iron deficiency anemia: Status: Chronic Qualifiers: Iron deficiency anemia type: chronic blood loss Qualified Code(s): D50.0 - Iron deficiency anemia secondary to blood loss (chronic) 02/14/25 1148 <Electronically signed by Josephine Hawk DO> Cosigner Signature (if applicable): CC: No Primary Care Physician; Josephine Hawk DO~ Signed [facility] Work Phone: 1(316) 620-168108-06-2025 Consult note Author Luis F Castillo [facility] Note Date/Time February 14, 2025 11: 34am [facility] Medical Records Department [address] [place] [address] Pre-Anesthesia Evaluation 02/14/25 1133 MR#: [id number] Acct: [id number] Name: KHOA CONNORS Jr. Rep #:[id number] : 1960 64 From: Luis F Castillo MD PCP: Care Physician,No Primary Status :[facility] Y Race: C Location: [facility] ASA Classification* ASA Classification ASA Classification: 2 Assessment & Plan Anesthesia* Anesthesia Assessment Anesthesia Assessment: Discussed sedation and/or anesthesia options, risks, benefits, and alternatives with patient/parents/legal guardian/POA. Questions invited. The patient/parents/legal guardian/POA seems to understand and agrees to proceedwith anesthesia plan. Reviewed the physical assessment, medical history, allergy history and patient home medications list prior to surgery/procedure/anesthetic and documented any changes. Performed airway and anesthesia risk assessments. Anesthesia Type Anesthesia Type: MAC Anesthesia Focused Assessment* Airway Assessment Mouth opens: >3 cm Mallampati Score: II Labs Anesthesia Preop lab: CBC WBC 2.6 K/mm3 (4.4-11.0) L 02/12/25 09:12 02/12/25 RBC 2.52 M/mm3 (4.6-6.2) L 02/12/25 09:12 02/12/25 Hgb 7.9 g/dL (13.0-16.5) L 02/12/25 09:12 02/12/25 Hct 27.1 % (40-54) L 02/12/25 09:12 02/12/25 Plt Count 118 K/mm3 (150-450) L 02/12/25 09:12 02/12/25 CHEMISTRY Potassium 4.3 mmol/L (3.3-5.1) 11/27/24 13:20 11/27/24 Sodium 143 mmol/L (133-145) 11/27/24 13:20 11/27/24 Magnesium 2.1 mg/dL (1.6-2.6) 05/23/24 03:11 05/23/24 Phosphorus 4.3 mg/dL (2.5-4.9) 05/23/24 03:11 05/23/24 BUN 24 mg/dL (4-19) H 11/27/24 13:20 11/27/24 Creatinine 0.99 mg/dL (0.70-1.20) 11/27/24 13:20 11/27/24 Glucose 172 mg/dL (70-99) H 11/27/24 13:20 11/27/24 POC Glucose 95 mg/dL (74-106) 05/31/24 06:25 05/31/24 TSH 1.910 uIU/mL (0.358-3.740) 07/19/24 09:35 03/05 COAG PT 16.4 SECONDS (11.7-14.9) H 05/18/24 18:10 02/01 Pre-Assessment Diagnosis/Proposed Procedure Planned Operative Procedure(s): COLONOSCOPY, EGD Anesthesia History Anesthesia History - natural resource technician: Anesthesia History - natural resource technician Hx Hospitalization Yes: 05/2024- [facility] 02/12/25 08:53 Any Problems With Anesthesia Yes: HARD TO AROUSE WITH 02/12/25 08:53 NARCOTICS Cholinesterase deficiency No 02/12/25 08:53 You/Your Family Experience No 02/12/25 08:53 fever (hyperthermia) with Relationship Recent Exposure to Contagious No 08/25/23 09:16 Disease Does patient have nerve No 02/12/25 08:53 stimulator Patient instructed to have device shut off --Does patient have Pacemaker or ICD? When Was Last Pacemaker Check QUESTION #4 FULL TEXT: You/Your Family Experience fever (hyperthermia) with Anesthesia Last Oral Intake Last Oral intake: Last Oral Intake NPO since Meds taken in AM with sips of water? Meds patient instructed to take am of surgery PONV PONV - natural resource technician: PONV - natural resource technician Female No 02/12/25 08:53 HX of Motion Sickness No 02/12/25 08:53 HX of N/V After Surgery No 02/12/25 08:53 Non-Smoker Yes 02/12/25 08:53 Duration of Surgery greater No 02/12/25 08:53 than 60 minutes Number of Risk Factors 1 02/12/25 08:53 PONV Score Low Risk 02/12/25 08:53 Height & Weight Height & Weight: Anesthesia: Height & Weight Height 6 ft 5 in 02/05/25 10:02 Respiratory Assessment Respiratory Assessment - natural resource technician: Respiratory Tract Infection Hx - natural resource technician Hx Respiratory Tract Infection No 02/12/25 08:53 STOP Sleep Apnea STOP Sleep Apnea - natural resource technician: STOP Sleep Apnea - natural resource technician Hx Hypertension No 02/12/25 10:01 Hx Sleep Apnea Yes 02/12/25 08:53 CPAP Yes 02/12/25 08:53 BIPAP No 02/12/25 08:53 Do you snore loudly (louder than talking or can be heard Do you often feel tired/ fatigued/ sleepy during daytime? Has anyone observed you stop breathing during sleep? STOP Results Positive 02/12/25 08:53 QUESTION #5 FULL TEXT : Do you snore loudly (louder than talking or can be heard through closed doors)? 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 Specify any problems Hx of Preganancy in last 3 N/A 02/12/25 08:53 Months Nurse Filling Out Transfusion [email or web address] 02/12/25 08:53 & Questions: Date: 02/12/25 02/12/25 08:53 Time: 08:59 02/12/25 08:53 Patient unable to answer at this time (ie. 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 - natural resource technician: /Reproductive Hx- natural resource technician Hx Now Gestational Age (in weeks): EDC: Hx Hx Para Hx Section SAB No 02/12/25 08:53 PFSH Medical History History of echocardiogram MDS (myelodysplastic syndrome), low grade Deep vein thrombosis (DVT) of right upper extremity Pancytopenia Back pain GLENN (obstructive sleep apnea) Hypothyroid Edema Nocturia Muscle spasm Vitamin B12 deficiency Iron deficiency anemia History of diabetes mellitus Chronic anemia Compression fracture of L2 Osteoarthritis of left knee Diabetes Bladder disease Dietary restriction Injury of head and neck History of pain when walking Walker as ambulation aid Foot drop, right Arthritis Chronic pain Non-smoker Home Medications ?Medication ?Instructions ?Recorded ?Last Taken ?Type levothyroxine 75 mcg tablet 75 mcg PO DAILY 01/10/24 U nknown History furosemide 40 mg tablet 40 mg PO DAILY PRN edema Unknown History sodium sul 1.479 gram-potas ch See Rx Instructions PO PER PKG DIR 12/26/24 Unknown Rx 0.188 gram-magnes sul 0.225 gram #24 tabs tablet (Sutab) Allergy/AdvReac Type Severity Reaction Status Date / Time hydromorphone (From Dilaudid) Allergy Severe Anaphylaxis Verified 02/12/25 08:52 gabapentin AdvReac Intermediate HALLUCINATI Verified 02/12/25 08:52 ONS Family History Other Multiple sclerosis Surgical History Hx of vertebroplasty History of total left knee replacement Hx of left cataract extraction Hx of eye surgery Social History household members: spouse Smoking Status: Never smoker alcohol intake: never substance use type: does not use Review of Systems (Anesthesia) ROS Narrative System reviewed and no additional complaints, except as documented. 02/14/25 113 <Electronically signed by Luis F Castillo MD > Date _ Luis F Castillo MD Cosigner Signature: Date CC: ~ Signed [facility] Work Phone: 1(502) 410-169708-06-2025 History and physical note [facility] Medical Records Department [address] [place] [address] History & Physical Exam 02/14/25 1145 MR#: [id number] Acct: [id number] Name: KHOA CONNORS Jr. Rep #:[id number] : 1960 64 From: Josephine Friend DO PCP: Care Physician,No Primary Status :[facility] Location: [facility] HPI - General General Date of Admission: 02/14/25 Date of Service: 02/14/25 Chief Complaint: Anemia HPI Narrative KHOA CONNORS, is a 64 M who presentsChief Complaint: chronic anemia [facility] admission 05.17.24-05.30.24 w/ increasing sob and lower extremity swelling. Hemiglobin several says prior was 5.4 and he received 2 unites of backed red blood cells. He was diuresed and put on BiPAP with no response. He was ultimately put intubated and placed in the ICU. He He has been struggling with anemia for a long time and follows with Dr. Song. Colonoscopy 05.24.24; with sessile polyp in the cecum, colonic AVMs, and distal sigmoid polyp. Pathology unknown Pt tells me he had EGD at the same time but we do not have this record Last OV 06.22.24: Pt has been doing ok since discharge. He continues to have fatigue. He tells me he has been anemic for many years with no etiology. He was referred to us by Dr. Gee for furtherwork up. He has been on iron therapy.Pt did have a colonoscopy a year ago with Dr. Mason that showed on AVM and a polyp. He denies seeing blood in his stool, melena, abdominal pain, heartburn orn/v. Capsule endoscopy 08.10.24: no signs of acute or chronic blood lose seen on study OV 12.26.24 Pt continues to have anemia and iron deficiency. He denies GI symptoms. He does not see blood in his stool. [facility] Medical History History of echocardiogram MDS (myelodysplastic syndrome), low grade Deep vein thrombosis (DVT) of right upper extremity Pancytopenia Back pain GLENN (obstructive sleep apnea) Hypothyroid Edema Nocturia Muscle spasm Vitamin B12 deficiency Iron deficiency anemia History of diabetes mellitus Chronic anemia Compression fracture of L2 Osteoarthritis of left knee Diabetes Bladder disease Dietary restriction Injury of head and neck History of pain when walking Walker as ambulation aid Foot drop, right Arthritis Chronic pain Non-smoker Home Medications ?Medication ?Instructions ?Recorded ?Last Taken ?Type levothyroxine 75 mcg tablet 75 mcg PO DAILY 01/10/24 U nknown History furosemide 40 mg tablet 40 mg PO DAILY PRN edema Unknown History sodium sul 1.479 gram-potas ch See Rx Instructions PO PER PKG DIR 12/26/24 Unknown Rx 0.188 gram-magnes sul 0.225 gram #24 tabs tablet (Sutab) Allergy/AdvReac Type Severity Reaction Status Date / Time hydromorphone (From Dilaudid) Allergy Severe Anaphylaxis Verified 02/12/25 08:52 gabapentin AdvReac Intermediate HALLUCINATI Verified 02/12/25 08:52 ONS Family History Other Multiple sclerosis Surgical History Hx of vertebroplasty History of total left knee replacement Hx of left cataract extraction Hx of eye surgery Social History household members: spouse Smoking Status: Never smoker alcohol intake: never substance use type: does not use ROS Constitutional Constitutional: Denies fatigue, fever(s), poor appetite, weight gain or weight loss Gastrointestinal Gastrointestinal: Denies belching, bloating, change in bowel habits, change in stool character, chewing difficulty, coffee ground emesis, constipation, cramping, diarrhea, dyspepsia, dysphagia, earlysatiety, excessive flatus, fecalincontinence, heartburn, hematemesis, hematochezia, hemorrhoids, loose stools, melena, nausea, odynophagia, rectal bleeding, tenesmus, vomiting or weight changes Physical Exam Narrative ECOG 2, Const alert, oriented x3, no apparent distress and healthy appearing General Appearance: cooperative Nutritional Appearance: morbidly obese GI normal to inspection, nondistended, normoactive bowel sounds, soft to palpation,non-tender and non-distended Percussion: normal to percussion Rectal Exam: deferred Assessment & Plan Assessment/Plan (1) Anemia: QUALIFIERS: Anemia type: bone marrow failure Bone marrow failure anemia type: other bone marrow failure Qualified Code(s): D61.89 - Other specified aplastic anemias and other bone marrow failure syndromes PLAN: Assessment and Plan Assessment and Plan (1) Anemia: Status: Chronic Qualifiers: Anemia type: bone marrow failure Bone marrow failure anemia type: otherbone marrow failure Qualified Code(s): D61.89 - Other specified aplastic anemias and other bone marrow failure syndromes Comment: Myelodysplastic syndrome Plan: Khoa is a 64 yo male pt here today for f/u regarding his ongoing anemia. Pt has MDS and has been seeing oncology. Bi directional endoscopy by Dr. Mason A few years back with one polyp and AVM. He has iron infusions however his iron level continues to downtrend. Capsule endoscopy was negative forbleeding in hissmall bowel. He will undergo repeat colonoscopy and EGD to re assess for bleeding inhis GI tract. -Colonoscopy and EGD -f/u after procedures (2) Iron deficiency anemia: Status: Chronic Qualifiers: Iron deficiency anemia type: chronic blood loss Qualified Code(s): D50.0 - Iron deficiency anemia secondary to blood loss (chronic) 02/14/25 1148 Cosigner Signature (if applicable): CC: No Primary Care Physician; Josephine Friend, DO~ Signed [facility]08[facility]06-[facility] Consult note [facility] Medical Records Department [address] [place] [address] Pre-Anesthesia Evaluation 02/14/25 1133 MR#: [id number] Acct: [id number] Name: KHOA CONNORS Rep #:[id number] : 1960 64 From: Luis F Castillo MD PCP: Care Physician,No Primary Status :[facility] Y Race: C Location: [place] [address] ASA Classification* ASA Classification ASA Classification: 2 Assessment & Plan Anesthesia* Anesthesia Assessment Anesthesia Assessment: Discussed sedation and/or anesthesia options, risks, benefits, and alternatives with patient/parents/legal guardian/POA. Questions invited. The patient/parents/legal guardian/POA seems to understand and agrees to proceedwith anesthesia plan. Reviewed the physical assessment, medical history, allergy history and patient home medications list prior to surgery/procedure/anesthetic and documented any changes. Performed airway and anesthesia risk assessments. Anesthesia Type Anesthesia Type: MAC Anesthesia Focused Assessment* Airway Assessment Mouth opens: >3 cm Mallampati Score: II Labs Anesthesia Preop lab: CBC WBC 2.6 K/mm3 (4.4-11.0) L 02/12/25 09:12 02/12/25 RBC 2.52 M/mm3 (4.6-6.2) L 02/12/25 09:12 02/12/25 Hgb 7.9 g/dL (13.0-16.5) L 02/12/25 09:12 02/12/25 Hct 27.1 % (40-54) L 02/12/25 09:12 02/12/25 Plt Count 118 K/mm3 (150-450) L 02/12/25 09:12 02/12/25 CHEMISTRY Potassium 4.3 mmol/L (3.3-5.1) 11/27/24 13:20 11/27/24 Sodium 143 mmol/L (133-145) 11/27/24 13:20 11/27/24 Magnesium 2.1 mg/dL (1.6-2.6) 05/23/24 03:11 05/23/24 Phosphorus 4.3 mg/dL (2.5-4.9) 05/23/24 03:11 05/23/24 BUN 24 mg/dL (4-19) H 11/27/24 13:20 11/27/24 Creatinine 0.99 mg/dL (0.70-1.20) 11/27/24 13:20 11/27/24 Glucose 172 mg/dL (70-99) H 11/27/24 13:20 11/27/24 POC Glucose 95 mg/dL (74-106) 05/31/24 06:25 05/31/24 TSH 1.910 uIU/mL (0.358-3.740) 07/19/24 09:35 03/05 COAG PT 16.4 SECONDS (11.7-14.9) H 05/18/24 18:10 02/01 Pre-Assessment Diagnosis/Proposed Procedure Planned Operative Procedure(s): COLONOSCOPY, EGD Anesthesia History Anesthesia History - natural resource technician: Anesthesia History - natural resource technician Hx Hospitalization Yes: 05/2024- [facility] 02/12/25 08:53 Any Problems With Anesthesia Yes: HARD TO AROUSE WITH 02/12/25 08:53 NARCOTICS Cholinesterase deficiency No 02/12/25 08:53 You/Your Family Experience No 02/12/25 08:53 fever (hyperthermia) with Relationship Recent Exposure to Contagious No 08/25/23 09:16 Disease Does patient have nerve No 02/12/25 08:53 stimulator Patient instructed to have device shut off --Does patient have Pacemaker or ICD? When Was Last Pacemaker Check QUESTION #4 FULL TEXT: You/Your Family Experience fever (hyperthermia) with Anesthesia Last Oral Intake Last Oral intake: Last Oral Intake NPO since Meds taken in AM with sips of water? Meds patient instructed to take am of surgery PONV PONV - natural resource technician: PONV - natural resource technician Female No 02/12/25 08:53 HX of Motion Sickness No 02/12/25 08:53 HX of N/V After Surgery No 02/12/25 08:53 Non-Smoker Yes 02/12/25 08:53 Duration of Surgery greater No 02/12/25 08:53 than 60 minutes Number of Risk Factors 1 02/12/25 08:53 PONV Score Low Risk 02/12/25 08:53 Height & Weight Height & Weight: Anesthesia: Height & Weight Height 6 ft 5 in 02/05/25 10:02 Respiratory Assessment Respiratory Assessment - natural resource technician: Respiratory Tract Infection Hx - natural resource technician Hx Respiratory Tract Infection No 02/12/25 08:53 STOP Sleep Apnea STOP Sleep Apnea - natural resource technician: STOP Sleep Apnea - natural resource technician Hx Hypertension No 02/12/25 10:01 Hx Sleep Apnea Yes 02/12/25 08:53 CPAP Yes 02/12/25 08:53 BIPAP No 02/12/25 08:53 Do you snore loudly (louder than talking or can be heard Do you often feel tired/ fatigued/ sleepy during daytime? Has anyone observed you stop breathing during sleep? STOP Results Positive 02/12/25 08:53 QUESTION #5 FULL TEXT : Do you snore loudly (louder than talking or can be heard through closeddoors)? 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 Specify any problems Hx of Preganancy in last 3 N/A 02/12/25 08:53 Months Nurse Filling Out Transfusion [email or web address] 02/12/25 08:53 & Questions: Date: 02/12/25 02/12/25 08:53 Time: 08:59 02/12/25 08:53 Patient unable to answer at this time (ie. 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 - natural resource technician: /Reproductive Hx- natural resource technician Hx Now Gestational Age (in weeks): EDC: Hx Hx Para Hx Section SAB No 02/12/25 08:53 PFSH Medical History History of echocardiogram MDS (myelodysplastic syndrome), low grade Deep vein thrombosis (DVT) of right upper extremity Pancytopenia Back pain GLENN (obstructive sleep apnea) Hypothyroid Edema Nocturia Muscle spasm Vitamin B12 deficiency Iron deficiency anemia History of diabetes mellitus Chronic anemia Compression fracture of L2 Osteoarthritis of left knee Diabetes Bladder disease Dietary restriction Injury of head and neck History of pain when walking Walker as ambulation aid Foot drop, right Arthritis Chronic pain Non-smoker Home Medications ?Medication ?Instructions ?Recorded ?Last Taken ?Type levothyroxine 75 mcg tablet 75 mcg PO DAILY 01/10/24 U nknown History furosemide 40 mg tablet 40 mg PO DAILY PRN edema Unknown History sodium sul 1.479 gram-potas ch See Rx Instructions PO PER PKG DIR 12/26/24 Unknown Rx 0.188 gram-magnes sul 0.225 gram #24 tabs tablet (Sutab) Allergy/AdvReac Type Severity Reaction Status Date / Time hydromorphone (From Dilaudid) Allergy Severe Anaphylaxis Verified 02/12/25 08:52 gabapentin AdvReac Intermediate HALLUCINATI Verified 02/12/25 08:52 ONS Family History Other Multiple sclerosis Surgical History Hx of vertebroplasty History of total left knee replacement Hx of left cataract extraction Hx of eye surgery Social History household members: spouse Smoking Status: Never smoker alcohol intake: never substance use type: does not use Review of Systems (Anesthesia) ROS Narrative System reviewed and no additional complaints, except as documented. 02/14/25 1134 > Date _ Luis F Castillo MD Cosigner Signature: Date CC: ~ Signed [facility]06-17-2025 Progress note Author Cleo Gonazlez [facility] Note Date/Time December 26, 2024 9:02 am [facility] [address] [place] [address] OFFICE VISIT Date of Service: 12/26/24 MR#: [id number] Acct: [id number] Name: KHOA CONNORS Jr. Rep #: [id number] : 1960 Provider: JIMMY Villa Age/Sex: 64/M Location: [facility] Status: Signed Intake Vital Signs 12/25/24 09:50 Height 6 ft 5 in Intake Visit Reasons: POSSIBLE BLEEDING - HGB AND IRON LEVELS LOW Chief Complaint: chronic anemia Accompanied by: Allergies hydromorphone (From Dilaudid) Allergy (Severe, Verified 12/07/24 09:38) Anaphylaxis gabapentin Adverse Reaction (Intermediate, Verified 12/07/24 09:38) HALLUCINATIONS Have you fallen in the past year?: No Nurse's Note: OV 12/26/24 Pt here for f/u and reports gas, bloating and indigestion. Pt would like to discuss test results and what steps are next. PFSH Medical History MDS (myelodysplastic syndrome), low grade Deep vein thrombosis (DVT) of right upper extremity Pancytopenia Back pain GLENN (obstructive sleep apnea) Hypothyroid Edema Nocturia Vitamin B12 deficiency Muscle spasm Iron deficiency anemia History of diabetes mellitus Chronic anemia Compression fracture of L2 Osteoarthritis of left knee Diabetes Bladder disease Dietary restriction Injury of head and neck History of pain when walking Walker as ambulation aid Foot drop, right Arthritis Chronic pain Non-smoker Surgical History Hx of vertebroplasty History of total left knee replacement Hx of left cataract extraction Hx of eye surgery Family History Other Multiple sclerosis Social History household members: spouse Smoking Status: Never smoker alcohol intake: never substance use type: does not use HPI HPI Chief Complaint: chronic anemia Details: KHOA CONNORS, is a 64 M who presents to the office today for f/u. [facility] admission 05.17.24-05.30.24 w/ increasing sob and lower extremity swelling. Hemiglobin several says prior was 5.4 and he received 2 unites of backed red blood cells. He was diuresed and put on BiPAP with no response. He was ultimately put intubated and placed in the ICU. He He has been struggling with anemia for a long time and follows with Dr. Song. Colonoscopy 05.24.24; with sessile polyp in the cecum, colonic AVMs, and distal sigmoid polyp. Pathology unknown Pt tells me he had EGD at the same time but we do not have this record Last OV 06.22.24: Pt has been doing ok since discharge. He continues to have fatigue. He tells me he has been anemic for many years with no etiology. He was referred to us by Dr. Gee for further work up. He has been on iron therapy.Pt did have a colonoscopy a year ago with Dr. Mason that showed on AVM and a polyp. He denies seeing blood in his stool, melena, abdominal pain, heartburn orn/v. Capsule endoscopy 08.10.24: no signs of acute or chronic blood lose seen on study OV 6 Pt continues to have anemia and iron deficiency. He denies GI symptoms. He does not see blood in his stool. ROS Const Constitutional: Positive for fatigue; No fever(s) or weight change ENT ENT: No difficulty swallowing Cardio Cardiology: Positive for leg pain with exertion Gastro GI: Positive for bloating, heartburn and excessive flatus; No abdominal pain, belching, change in bowel habits, change in stool character, coffee ground emesis, constipation, cramping, diarrhea, difficulty swallowing, feeling full early, incontinent of stools, Vomiting blood/hematemesis, Blood in stool, loose stools, Black,tarry stools, nausea/dyspepsia, pain with swallowing,vomiting or other Musc Musculoskeletal: Positive for abnormal gait, joint pain, back pain, muscle weakness, numbness, stiffness, tingling, sciatica and leg pain with exertion Skin Skin: No yellowing of the eye or itchy eyes Neuro Neurology: Positive for abnormal gait, numbness and tingling Psych Psychiatric: No anxiety and No depression Endo Endocrine: Positive for fatigue; No weight change Aller/Imm Allergy/Immunologic: No itchy eyes Satya/Lymp Hematologic/Lymphatic: Positive for easy bleeding; No easy bruising Exam Const General: cooperative and comfortable Orientation: alert Resp Effort & Inspection: normal respiratory effort Cardio Rate: regular rate Rhythm: regular rhythm GI Inspection: normal to inspection Auscultation: normal bowel sounds Palpation: soft and nontender Assessment and Plan Assessment and Plan (1) Anemia: Status: Chronic Qualifiers: Anemia type: bone marrow failure Bone marrow failure anemia type: otherbone marrow failure Qualified Code(s): D61.89 - Other specified aplastic anemias and other bone marrow failure syndromes Comment: Myelodysplastic syndrome Plan: Khoa is a 64 yo male pt here today for f/u regarding his ongoing anemia. Pt has MDS and has been seeing oncology. Bi directional endoscopy by Dr. Mason A few years back with one polyp and AVM. He has iron infusions however his iron level continues to downtrend. Capsule endoscopy was negative for bleeding in hissmall bowel. He will undergo repeat colonoscopy and EGD to re assess for bleeding in his GI tract. -Colonoscopy and EGD -f/u after procedures (2) Iron deficiency anemia: Status: Chronic Qualifiers: Iron deficiency anemia type: chronic blood loss Qualified Code(s): D50.0 - Iron deficiency anemia secondary to blood loss (chronic) Coding Level of Care Code Off vis,est,level 3 Diagnoses Anemia due to other bone marrow failure D61.89 Anemia type: bone marrow failure Bone marrow failure anemia type: other bone marrow failure Iron deficiency anemia due to chronic blood loss D50.0 Iron deficiency anemia type: chronic blood loss Clinical Quality Measures Falls Risk Screening/Assistive Devices Have you fallen in the past year?: No 12/26/24 0902 <Electronically signed by Cleo MARQUEZ> Date _ Cleo MARQUEZ Cosigner Signature: Date (if applicable) CC: ~ [facility] [employer] [facility] Work Phone: 1(803) 787-366406-17-2025 Progress [facility] [address] [place] [address] OFFICE VISIT Date of Service: 12/26/24 MR#: [id number] Acct: [id number] Name: KHOA CONNORS Jr. Rep #: [id number] : 1960 Provider: JIMMY Villa Age/Sex: 64/M Location: [facility] Status: Signed Intake Vital Signs 12/25/24 09:50 Height 6 ft 5 in Intake Visit Reasons: POSSIBLE BLEEDING - HGB AND IRON LEVELS LOW Chief Complaint: chronic anemia Accompanied by: Allergies hydromorphone (From Dilaudid) Allergy (Severe, Verified 12/07/24 09:38) Anaphylaxis gabapentin Adverse Reaction (Intermediate, Verified 12/07/24 09:38) HALLUCINATIONS Have you fallen in the past year?: No Nurse's Note: OV 12/26/24 Pt here for f/u and reports gas, bloating and indigestion. Pt would like to discuss test results and what steps are next. PFSH Medical History MDS (myelodysplastic syndrome), low grade Deep vein thrombosis (DVT) of right upper extremity Pancytopenia Back pain GLENN (obstructive sleep apnea) Hypothyroid Edema Nocturia Vitamin B12 deficiency Muscle spasm Iron deficiency anemia History of diabetes mellitus Chronic anemia Compression fracture of L2 Osteoarthritis of left knee Diabetes Bladder disease Dietary restriction Injury of head and neck History of pain when walking Walker as ambulation aid Foot drop, right Arthritis Chronic pain Non-smoker Surgical History Hx of vertebroplasty History of total left knee replacement Hx of left cataract extraction Hx of eye surgery Family History Other Multiple sclerosis Social History household members: spouse Smoking Status: Never smoker alcohol intake: never substance use type: does not use HPI HPI Chief Complaint: chronic anemia Details: KHOA CONNORS, is a 64 M who presents to the office today for f/u. [facility] admission 05.17.24-05.30.24 w/ increasing sob and lower extremity swelling. Hemiglobin several says prior was 5.4 and he received 2 unites of backed red blood cells. He was diuresed and put on BiPAP with no response. He was ultimately put intubated and placed in the ICU. He He has been struggling with anemia for a long time and follows with Dr. Song. Colonoscopy 05.24.24; with sessile polyp in the cecum, colonic AVMs, and distal sigmoid polyp. Pathology unknown Pt tells me he had EGD at the same time but we do not have this record Last OV 06.22.24: Pt has been doing ok since discharge. He continues to have fatigue. He tells me he has been anemic for many years with no etiology. He was referred to us by Dr. Gee for furtherwork up. He has been on iron therapy.Pt did have a colonoscopy a year ago with Dr. Mason that showed on AVM and a polyp. He denies seeing blood in his stool, melena, abdominal pain, heartburn orn/v. Capsule endoscopy 08.10.24: no signs of acute or chronic blood lose seen on study OV 12.26.24 Pt continues to have anemia and iron deficiency. He denies GI symptoms. He does not see blood in his stool. ROS Const Constitutional: Positive for fatigue; No fever(s) or weight change ENT ENT: No difficulty swallowing Cardio Cardiology: Positive for leg pain with exertion Gastro GI: Positive for bloating, heartburn and excessive flatus; No abdominal pain, belching, change in bowel habits, change in stool character, coffee ground emesis, constipation, cramping, diarrhea, difficulty swallowing, feeling full early, incontinent of stools, Vomiting blood/hematemesis, Blood in stool, loose stools, Black,tarry stools, nausea/dyspepsia, pain with swallowing,vomiting or other Musc Musculoskeletal: Positive for abnormal gait, joint pain, back pain, muscle weakness, numbness, stiffness, tingling, sciatica and leg pain with exertion Skin Skin: No yellowing of the eye or itchy eyes Neuro Neurology: Positive for abnormal gait, numbness and tingling Psych Psychiatric: No anxiety and No depression Endo Endocrine: Positive for fatigue; No weight change Aller/Imm Allergy/Immunologic: No itchy eyes Satya/Lymp Hematologic/Lymphatic: Positive for easy bleeding; No easy bruising Exam Const General: cooperative and comfortable Orientation: alert Resp Effort & Inspection: normal respiratory effort Cardio Rate: regular rate Rhythm: regular rhythm GI Inspection: normal to inspection Auscultation: normal bowel sounds Palpation: soft and nontender Assessment and Plan Assessment and Plan (1) Anemia: Status: Chronic Qualifiers: Anemia type: bone marrow failure Bone marrow failure anemia type: otherbone marrow failure Qualified Code(s): D61.89 - Other specified aplastic anemias and other bone marrow failure syndromes Comment: Myelodysplastic syndrome Plan: Khoa is a 64 yo male pt here today for f/u regarding his ongoing anemia. Pt has MDS and has been seeing oncology. Bi directional endoscopy by Dr. Mason A few years back with one polyp and AVM. He has iron infusions however his iron level continues to downtrend. Capsule endoscopy was negative forbleeding in hissmall bowel. He will undergo repeat colonoscopy and EGD to re assess for bleeding inhis GI tract. -Colonoscopy and EGD -f/u after procedures (2) Iron deficiency anemia: Status: Chronic Qualifiers: Iron deficiency anemia type: chronic blood loss Qualified Code(s): D50.0 - Iron deficiency anemia secondary to blood loss (chronic) Coding Level of Care Code Off vis,est,level 3 Diagnoses Anemia due to other bone marrow failure D61.89 Anemia type: bone marrow failure Bone marrow failure anemia type: other bone marrow failure Iron deficiency anemia due to chronic blood loss D50.0 Iron deficiency anemia type: chronic blood loss Clinical Quality Measures Falls Risk Screening/Assistive Devices Have you fallen in the past year?: No 12/26/24 0902 brittany MARQUEZ> Date _ [facility]QUEZ [facility] Signature: Date (if applicable) CC: ~ [facility]06[facility]2025 [facility] [address] [place], [place] [address]j[place]. [place] [address] OFFICE VISIT Date of Service: 12/21/24 1055 MR#: [id number] Acct: [id number] Name: KHOA CONNORS Jr. Rep #: [id number] : 1960 From: Herbert blanco MD Age/Sex: 64/M Location: [facility] Status: Signed HPI Subjective Date of Service 12/21/24 Chief Complaint Anemia due to MDS History of Present Illness 64-year-old gentleman with chronic pancytopenia and symptomatic from anemia who was evaluated for blood clots in 2022 with upper and lower GI endoscopies (by Dr. Mason) and to his knowledge no source of blood loss was identified . Also in 2022 he was diagnosed with B12 deficiency and was started on B12 injections under the care of his PCP Dr. Gilmore. In August 2023 he underwent knee replacement and following surgery he developed a rather acute onchronic symptomatic anemia. In November 2023 was confirmed iron deficient with severe anemia hemoglobin down to 6.7 g per DL when hereceived transfusion with packed red blood cells, IV iron and was started on an oral iron supplement. August 01 2024 capsule endoscopy study: Multiple lymph injected lesions withoutstigmata for activebleed during the study. See lab section for pharmaceutical specialty representative blood counts. In 2023 despite correction of iron deficiency he became transfusion dependent. June 2024 bone marrow aspirate and biopsy: BONE MARROW DIAGNOSIS Bone marrow core, clot and aspirate smears: Normocellular marrow with trilineage hematopoiesis. See bone marrow study and comment. 06/29/2024 COMMENT A. Immunohistochemistry ([id number]) supports the above diagnosis. Flow cytometry study from [facility] show no significant immunophenotypic abnormality. Complete report is viewable in patient?s EMR. Fish result: Normal MDS panel Interpretation: Negative SPECIFIC PROBE RESULST 5q: Normal 7q: Normal 8q: Normal 20q: Normal Cytogenetics studies are pending. Clinical correlation and appropriate follow up are necessary. Case has been reviewed in consultation with Dr. Akbar who concurs with the abovediagnosis. IDC:AM BONE MARROW STUDY Slides are reviewed. CBC DATE: 06/28/2024 WBC 3.1; RBC 2.39; HGB 7.6; HCT 25.8; MCV 107.9; RDW 22.9; PLTS 102,000 SEGS 63.2%; LYMPHS 21.8%; MONOS 7.2%; EOS 7.2%; BASOS 0.3% PERIPHERAL SMEAR: Submitted Pancytopenia. RBC: Macrocytic anemia. WBC: Leukopenia and neutropenia. The WBC count is compatible to as reported above. PLTS: Mildly decreased. BONE MARROW ASPIRATE DIFFERENTIAL: Not performed. ASPIRATE FINDINGS: Site: Not specified Aspicular, Hypocellular Comment: Marked hemodilution is noted. All the submitted smears are examined. Scattered erythroid and myeloid cells are noted. Significant dysplastic changes are not seen. CORE BIOPSY FINDINGS: Site: Not specified Adequacy: adequate Cellularity: 40% M/E ratio: Mild erythroid hyperplasia is noted Megakaryocytes: Present and adequate in number. Bony trabeculae: No bone tissue is identified. Granulomas: Absent. Lymphoid aggregate: Absent. Atypical infiltrate: Absent. Comment: Immunohistochemistry ([id number]) does not show significant increase of plasma cells. Blasts are not increased. ASPIRATE CLOT FINDINGS: Site: Not specified Marrow particles: a few Cellularity: 40% M/E ratio: Mild erythroid hyperplasia is noted Megakaryocytes: Present and adequate in number. Bony trabeculae: No bone tissue is identified. Granulomas: Absent. Lymphoid aggregate: Absent. Atypical infiltrate: Absent SPECIAL STAINS WITH MATCHED CONTROLS: Iron: 2+, significant increase of atypical or ring sideroblasts are not seen. Reticulin: No significant increase of reticulin fibers is noted. PAS: Highlights myeloid cells and megakaryocytes. BONE MARROW GROSS A - Received is a container labeled with the patient's name and designated [place] core. The specimen consists of multiple fragments of blood clots measuring in aggregate 2.0 x 0.5 x 0.1cm. No obvious fragment of bone is identified. Slip Cover Maker sections are submitted inone cassette after decalcification. B - Received labeled with the patient's name and designated Bone marrow clot is a specimen that consists of approximately 6 ml of bloody fluid that on filtration yields multiple minute fragments of blood clots measuring in aggregate 2.0 x 1.0 x 0.1 cm. The specimen is totally submitted in one cassette. C - Also received are 12 unstained and 1 peripheral stained slide. The unstainedslides are submitted for appropriate staining. Also received are 2 green top tubes which are sent to our reference lab for flow, cytogenetics, MDS. SJ.mr 06/28/2024 / TC: CPT: 53340, 70847, 29635 x2, 02562 x3, 77659 ADDENDUM MDS FISH PANEL RESULT FROM [facility]: FISH RESULT: Normal MDS panel INTERPRETATION: NEGATIVE 5q: Normal 7q: Normal 8q: Normal 20q: Normal ADDENDUM CYTOGENETICS REPORT FROM [facility] CYTOGENETIC RESULT: 46,XY[20] INTERPRETATION: Normal male karyotype was observed in twenty metaphases analyzed Treatment summary and response: 2023?ongoing transfusion was packed red blood cells. Erythrocyte stimulating agent therapy July 27, 2024 PFSH Medical History MDS (myelodysplastic syndrome), low grade Deep vein thrombosis (DVT) of right upper extremity Pancytopenia Back pain GLENN (obstructive sleep apnea) Hypothyroid Edema Nocturia Vitamin B12 deficiency Muscle spasm Iron deficiency anemia History of diabetes mellitus Chronic anemia Compression fracture of L2 Osteoarthritis of left knee Diabetes Bladder disease Dietary restriction Injury of head and neck History of pain when walking Walker as ambulation aid Foot drop, right Arthritis Chronic pain Non-smoker Surgical History Hx of vertebroplasty History of total left knee replacement Hx of left cataract extraction Hx of eye surgery Family History Other Multiple sclerosis Social History household members: spouse Smoking Status: Never smoker alcohol intake: never substance use type: does not use ROS Constitutional Constitutional: Reports fatigue and other Details: His weight fluctuates depending on edema ; Denies anorexia or fever(s) Eyes Eyes: Reports systems reviewed and no addt'l complaints, except as documented ENT HEENT: Reports systems reviewed and no addt'l complaints, except as documented; Denies bleeding gums or epistaxis Cardiovascular Cardiovascular: Reports edema and other Details: Edema resolves when he takes an extra Lasix ; Denies chest pain Respiratory/Chest Respiratory/Chest: Reports systems reviewed and no addt'l complaints, except as documented and dyspnea on exertion Gastrointestinal Gastrointestinal: Reports systems reviewed and no addt'l complaints, except as documented; Denies change in bowel habits, hematochezia or melena Genitourinary Genitourinary: Reports systems reviewed and no addt'l complaints, except as documented; Denies hematuria Musculoskeletal Musculoskeletal: Reports systems reviewed and no addt'l complaints, except as documented Integumentary Integumentary: Reports systems reviewed and no addt'l complaints, except as documented; Denies bleeding lesions Neurologic Neurologic: Reports systems reviewed and no addt'l complaints, except as documented Psychiatric Psychiatric: Reports systems reviewed and no addt'l complaints, except as documented Endocrine Endocrinology: Reports systems reviewed and no addt'l complaints, except as documented, flushing and other Details: Flushing with hot showers Hematologic/Lymphatic Hematologic/Lymphatic: Reports anemia Intake Vital Signs 11/16/24 11:31 12/21/24 10:57 12/21/24 11:01 Height 6 ft 6 ft 5 in 6 ft 5 in Weight: 157.397 kg BMI 41.1 BP 148/77 H Blood Pressure Location Lt brachial Position Sitting Respiration 16 Pulse 72 Pulse Source Monitor Temp 98.2 F Temperature Source Temporal Artery Pulse Oximetry (%) 96 Oxygen Delivery Method room air Intake Is patient in pain?: Yes (joint and back pain ) Pain scale (1-10): 5 Allergies hydromorphone (From Dilaudid) Allergy (Severe, Verified 12/07/24 09:38) Anaphylaxis gabapentin Adverse Reaction (Intermediate, Verified 12/07/24 09:38) HALLUCINATIONS Medications ?Medication ?Instructions ?Recorded ?Confirmed ?Type levothyroxine 75 mcg tablet 75 mcg PO DAILY 01/10/24 0 12/07/24 History furosemide 40 mg tablet 40 mg PO DAILY 11/02/2411/10 History ketorolac 0.5 % eye drops 1 drp ophthalmic (eye) 4X/DA Y 12/07/24 12/07/24 Hist ory Have you fallen in the past year?: No Central Venous Access Central Venous Access: No Exam Physical Exam Narrative ECOG 2, Const alert and oriented x3 General Appearance: ill appearing Positive for chronically Nutritional Appearance: morbidly obese Coding Level of Care Code Off vis,est,level 4 Exam Problem Focused Diagnoses MDS (myelodysplastic syndrome), low grade D46.Z Pancytopenia D61.818 Vitamin B12 deficiency E53.8 Iron deficiency anemia due to chronic blood loss D50.0 Iron deficiency anemia type: chronic blood loss Assessment and Plan Assessment and Plan (1) MDS (myelodysplastic syndrome), low grade: Status: Chronic (2) Pancytopenia: Status: Chronic (3) Vitamin B12 deficiency: Status: Chronic (4) Iron deficiency anemia: Status: Chronic Qualifiers: Iron deficiency anemia type: chronic blood loss Qualified Code(s): D50.0 - Iron deficiency anemia secondary to blood loss (chronic) Plan 64-year-old gentleman with multiple chronic medical problems and a chronic pancytopenia, with macrocytic RBCs since at least 2021 with superadded acute anemia in 2023 with evidence for acquired and recurring iron deficiency consistent with external blood loss most likely UGI. In 2022 he underwent upper and lower GI endoscopy, no bleeding lesions were identified (under the care of Dr. De Jesus, pathology showed atrophic gastritis, colonic tubular adenoma). In August 2023 he underwent a knee replacement which is another potential source for external blood loss. In 2022 he was confirmed to have B12 deficiency with low B12 level, started replacement by injection nonetheless macrocytosis did not completely resolve. July 2024 he underwent capsule endoscopy study revealing multiple lymphangectatic lesions but none was bleeding during the study As of January 2024, he developed a leukopenia with preserved neutrophil count with no recurrent bacterial infections therefore not clinically significant, his thrombocytopenia remains mild above 100 K. June 2024 after correction of his iron deficiency persistent now transfusion dependent macrocytic anemia he underwent a bone marrow biopsy showing normocellular marrow with trilineage hematopoiesis no excess blasts no cytogenetic abnormalities or FISH abnormalities. These findings (full marrow, empty peripheral blood) are most consistent with primary bone marrow disease namely MDS low risk. [place] serum erythropoietin level 348 (July 19, 2024) Started erythrocyte stimulating agent therapy for anemia due to MDS July 27, 2024. He has shown a favorable response with an improvement in H&H and became transfusion independent since July2024 except for 1 occasion in October 2024 probably related to an acute episode of bleeding. His cytopenias are multifactorial includin. Myelodysplastic syndrome, low risk; using the revised international prognostic scoring system (IPSS R) and primary myelodysplastic syndrome the patient's course 2.5, low risk, 1.4 having good cytogenetics, 0 points for absence of increased blasts and marrow, 1.5 points for hemoglobin less than 8g per DL, 0 points for platelets above 100 K0.4 absolute neutrophil count of over 800). The estimated risk for AML evaluation is approximately 25% over 10 years. However the patient has evidence of transfusion dependent bone marrow failure. 2. Recurrent iron deficiency since 2023 from external blood loss most likely chronic not identifiedGI bleeding. His anemia and iron deficiency recur despite supplementation with oral (earlier but nolonger able to tolerate due to GI side effects) and therefore he has been repeatedly given IV iron with improvement of iron stores then recurrence. 3. B12 deficiency now corrected with supplementation Chronic comorbid conditions: Chronic heart failure, sleep apnea, morbid obesity, chronic respiratory failure, hypothyroidism and asthenia. Plan: 1. For low risk MDS and a medically unfit and frail patient due to chronic comorbidities and aggressive approach with evaluation for stem cell bone marrow transplant is not advisable. With baseline [place] serum erythropoietin level less than 500 he is a candidate for erythrocyte stimulating agent therapy started at 40,000 units subcu every week July 27, 2024 with dose adjustment depending on response. His H&H did rise and he has not needed as frequent blood transfusions however this is complicated with the fact that he continues to have external blood loss evidenced by drop in ferritin and iron saturation. On Retacrit 40,000 units twice weekly his hemoglobin is below target therefore will increase to 60,000 units twice weekly. Aranesp which can be conveniently administered once weekly was denied by insurance unless he fails Retacrit In future when/if MDS becomes unresponsive to erythrocyte stimulating agent therapy and therapy to consider would be Luspatercept. 2. Transfuse with packed red blood cells for hemoglobin less than 8 g per DL due to significant comorbid cardiovascular disease. 3. Continue B12 injections long-term under the care of his primary care doctor Deirdre. 3. He is unable to tolerate oral iron due to GI side effects and therefore will prescribe iron IV to correct any recurrent iron deficiency to maintain ferritin at or above 100 and iron saturation at or above 20%. He is below target December 2024 and therefore will receive IV iron. 5. In May 2024 he developed an acute right upper extremity DVT complicating a PICC line insertion, he was placed on systemic anticoagulation initially planned a 3-week course after discontinuation of the PICC line however he had a rather precipitous drop in his H&H and therefore was discontinued before completion for concern that the benefit is outweighing the risks of ongoing bleeding. 6. He is a difficult IV access Central venous access may be needed in the future for his lab and treatment. Prophylactic anticoagulation is not advisable since the source of GI blood loss has not been identified and remedied but may consider low-dose aspirin. Patient was seen with his , impression and plan discussed. Herbert Toussaint MD Rubbing Bed Operator, [facility] Divisions of Medical Oncology & Hematology Department of Internal Medicine [place] [id number] This note was generated using a voice recognition system software. Although it was reviewed by the author prior to finalization, it may still contain incorrect words, spelling, and punctuation that were not noted when reviewing prior to saving. If a clinically significant typo or inaccurately typedphrase is noted, please notify the author. Clinical Quality Measures Falls Risk Screening/Assistive Devices Have you fallen in the past year?: No 12/21/24 1138 katya SOMMER> Date _ Herbert Toussaint MD Cosign Signature: Date (if applicable) CC: Dr. Angelic Monsalve MD; Josephine Friend, DO ~ [facility]06-12-2025 Progress note Author Herbert Toussaint [facility] Note Date/Time December 21, 2024 11:3 8am [facility] [place] [address] OFFICE VISIT Date of Service: 12/21/24 1055 MR#: [id number] Acct: [id number] Name: KHOA CONNORS JrSkyler Rep #: [id number] : 1960 From: Herbert blanco MD Age/Sex: 64/M Location: [facility] Status: Signed HPI Subjective Date of Service 12/21/24 Chief Complaint Anemia due to MDS History of Present Illness 64-year-old gentleman with chronic pancytopenia and symptomatic from anemia who was evaluated for blood clots in 2022 with upper and lower GI endoscopies (by Dr. Mason) and to his knowledge no source of blood loss was identified . Also in 2022 he was diagnosed with B12 deficiency and was started on B12 injections under the care of his PCP Dr. Gilmore. In August 2023 he underwent knee replacement and following surgery he developed a rather acute on chronic symptomatic anemia. In November 2023 was confirmed iron deficient with severe anemia hemoglobin down to 6.7 g per DL when he received transfusion with packed red blood cells, IV iron and was started on an oral iron supplement. August 01 2024 capsule endoscopy study: Multiple lymph injected lesions withoutstigmata for active bleed during the study. See lab section for pharmaceutical specialty representative blood counts. In 2023 despite correction of iron deficiency he became transfusion dependent. June 2024 bone marrow aspirate and biopsy: BONE MARROW DIAGNOSIS Bone marrow core, clot and aspirate smears: Normocellular marrow with trilineage hematopoiesis. See bone marrow study and comment. SJ.mr 06/29/2024 COMMENT A. Immunohistochemistry ([id number]) supports the above diagnosis. Flow cytometry study from [facility] show no significant immunophenotypic abnormality. Complete report is viewable in patient?s EMR. Fish result: Normal MDS panel Interpretation: Negative SPECIFIC PROBE RESULST 5q: Normal 7q: Normal 8q: Normal 20q: Normal Cytogenetics studies are pending. Clinical correlation and appropriate follow up are necessary. Case has been reviewed in consultation with Dr. Akbar who concurs with the abovediagnosis. IDC:AM BONE MARROW STUDY Slides are reviewed. CBC DATE: 06/28/2024 WBC 3.1; RBC 2.39; HGB 7.6; HCT 25.8; MCV 107.9; RDW 22.9; PLTS 102,000 SEGS 63.2%; LYMPHS 21.8%; MONOS 7.2%; EOS 7.2%; BASOS 0.3% PERIPHERAL SMEAR: Submitted Pancytopenia. RBC: Macrocytic anemia. WBC: Leukopenia and neutropenia. The WBC count is compatible to as reported above. PLTS: Mildly decreased. BONE MARROW ASPIRATE DIFFERENTIAL: Not performed. ASPIRATE FINDINGS: Site: Not specified Aspicular, Hypocellular Comment: Marked hemodilution is noted. All the submitted smears are examined. Scattered erythroid and myeloid cells are noted. Significant dysplastic changes are not seen. CORE BIOPSY FINDINGS: Site: Not specified Adequacy: adequate Cellularity: 40% M/E ratio: Mild erythroid hyperplasia is noted Megakaryocytes: Present and adequate in number. Bony trabeculae: No bone tissue is identified. Granulomas: Absent. Lymphoid aggregate: Absent. Atypical infiltrate: Absent. Comment: Immunohistochemistry ([id number]) does not show significant increase of plasma cells. Blasts are not increased. ASPIRATE CLOT FINDINGS: Site: Not specified Marrow particles: a few Cellularity: 40% M/E ratio: Mild erythroid hyperplasia is noted Megakaryocytes: Present and adequate in number. Bony trabeculae: No bone tissue is identified. Granulomas: Absent. Lymphoid aggregate: Absent. Atypical infiltrate: Absent SPECIAL STAINS WITH MATCHED CONTROLS: Iron: 2+, significant increase of atypical or ring sideroblasts are not seen. Reticulin: No significant increase of reticulin fibers is noted. PAS: Highlights myeloid cells and megakaryocytes. BONE MARROW GROSS A - Received is a container labeled with the patient's name and designated [place] core. The specimen consists of multiple fragments of blood clots measuring in aggregate 2.0 x 0.5 x 0.1cm. No obvious fragment of bone is identified. Slip Cover Maker sections are submitted inone cassette after decalcification. B - Received labeled with the patient's name and designated Bone marrow clot is a specimen that consists of approximately 6 ml of bloody fluid that on filtration yields multiple minute fragments of blood clots measuring in aggregate 2.0 x 1.0 x 0.1 cm. The specimen is totally submitted in one cassette. C - Also received are 12 unstained and 1 peripheral stained slide. The unstainedslides are submitted for appropriate staining. Also received are 2 green top tubes which are sent to our reference lab for flow, cytogenetics, MDS. 06/28/2024 / TC: CPT: 04274, 82381, 24992 x2, 29381 x3, 81552 ADDENDUM MDS FISH PANEL RESULT FROM [facility]: FISH RESULT: Normal MDS panel INTERPRETATION: NEGATIVE 5q: Normal 7q: Normal 8q: Normal 20q: Normal ADDENDUM CYTOGENETICS REPORT FROM [facility] CYTOGENETIC RESULT: 46,XY[20] INTERPRETATION: Normal male karyotype was observed in twenty metaphases analyzed Treatment summary and response: 2023?ongoing transfusion was packed red blood cells. Erythrocyte stimulating agent therapy July 27, 2024 PFSH Medical History MDS (myelodysplastic syndrome), low grade Deep vein thrombosis (DVT) of right upper extremity Pancytopenia Back pain GLENN (obstructive sleep apnea) Hypothyroid Edema Nocturia Vitamin B12 deficiency Muscle spasm Iron deficiency anemia History of diabetes mellitus Chronic anemia Compression fracture of L2 Osteoarthritis of left knee Diabetes Bladder disease Dietary restriction Injury of head and neck History of pain when walking Walker as ambulation aid Foot drop, right Arthritis Chronic pain Non-smoker Surgical History Hx of vertebroplasty History of total left knee replacement Hx of left cataract extraction Hx of eye surgery Family History Other Multiple sclerosis Social History household members: spouse Smoking Status: Never smoker alcohol intake: never substance use type: does not use ROS Constitutional Constitutional: Reports fatigue and other Details: His weight fluctuates depending on edema ; Denies anorexia or fever(s) Eyes Eyes: Reports systems reviewed and no addt'l complaints, except as documented ENT HEENT: Reports systems reviewed and no addt'l complaints, except as documented; Denies bleeding gums or epistaxis Cardiovascular Cardiovascular: Reports edema and other Details: Edema resolves when he takes an extra Lasix ; Denies chest pain Respiratory/Chest Respiratory/Chest: Reports systems reviewed and no addt'l complaints, except as documented and dyspnea on exertion Gastrointestinal Gastrointestinal: Reports systems reviewed and no addt'l complaints, except as documented; Denies change in bowel habits, hematochezia or melena Genitourinary Genitourinary: Reports systems reviewed and no addt'l complaints, except as documented; Denies hematuria Musculoskeletal Musculoskeletal: Reports systems reviewed and no addt'l complaints, except as documented Integumentary Integumentary: Reports systems reviewed and no addt'l complaints, except as documented; Denies bleeding lesions Neurologic Neurologic: Reports systems reviewed and no addt'l complaints, except as documented Psychiatric Psychiatric: Reports systems reviewed and no addt'l complaints, except as documented Endocrine Endocrinology: Reports systems reviewed and no addt'l complaints, except as documented, flushing and other Details: Flushing with hot showers Hematologic/Lymphatic Hematologic/Lymphatic: Reports anemia Intake Vital Signs 11/16/24 11:31 12/21/24 10:57 12/21/24 11:01 Height 6 ft 6 ft 5 in 6 ft 5 in Weight: 157.397 kg BMI 41.1 BP 148/77 H Blood Pressure Location Lt brachial Position Sitting Respiration 16 Pulse 72 Pulse Source Monitor Temp 98.2 F Temperature Source Temporal Artery Pulse Oximetry (%) 96 Oxygen Delivery Method room air Intake Is patient in pain?: Yes (joint and back pain ) Pain scale (1-10): 5 Allergies hydromorphone (From Dilaudid) Allergy (Severe, Verified 12/07/24 09:38) Anaphylaxis gabapentin Adverse Reaction (Intermediate, Verified 12/07/24 09:38) HALLUCINATIONS Medications ?Medication ?Instructions ?Recorded ?Confirmed ?Type levothyroxine 75 mcg tablet 75 mcg PO DAILY 01/10/24 0 12/07/24 History furosemide 40 mg tablet 40 mg PO DAILY 11/02/2411/10 History ketorolac 0.5 % eye drops 1 drp ophthalmic (eye) 4X/DA Y 12/07/24 12/07/24 Hist ory Have you fallen in the past year?: No Central Venous Access Central Venous Access: No Exam Physical Exam Narrative ECOG 2, Const alert and oriented x3 General Appearance: ill appearing Positive for chronically Nutritional Appearance: morbidly obese Coding Level of Care Code Off vis,est,level 4 Exam Problem Focused Diagnoses MDS (myelodysplastic syndrome), low grade D46.Z Pancytopenia D61.818 Vitamin B12 deficiency E53.8 Iron deficiency anemia due to chronic blood loss D50.0 Iron deficiency anemia type: chronic blood loss Assessment and Plan Assessment and Plan (1) MDS (myelodysplastic syndrome), low grade: Status: Chronic (2) Pancytopenia: Status: Chronic (3) Vitamin B12 deficiency: Status: Chronic (4) Iron deficiency anemia: Status: Chronic Qualifiers: Iron deficiency anemia type: chronic blood loss Qualified Code(s): D50.0 - Iron deficiency anemia secondary to blood loss (chronic) Plan 64-year-old gentleman with multiple chronic medical problems and a chronic pancytopenia, with macrocytic RBCs since at least 2021 with superadded acute anemia in 2023 with evidence for acquired and recurring iron deficiency consistent with external blood loss most likely UGI. In 2022 he underwent upper and lower GI endoscopy, no bleeding lesions were identified (under the care of Dr. De Jesus, pathology showed atrophic gastritis, colonic tubular adenoma). In August 2023 he underwent a knee replacement which is another potential source for external blood loss. In 2022 he was confirmed to have B12 deficiency with low B12 level, started replacement by injection nonetheless macrocytosis did not completely resolve. July 2024 he underwent capsule endoscopy study revealing multiple lymphangectatic lesions but none was bleeding during the study As of January 2024, he developed a leukopenia with preserved neutrophil count with no recurrent bacterial infections therefore not clinically significant, his thrombocytopenia remains mild above 100 K. June 2024 after correction of his iron deficiency persistent now transfusion dependent macrocytic anemia he underwent a bone marrow biopsy showing normocellular marrow with trilineage hematopoiesis no excess blasts no cytogenetic abnormalities or FISH abnormalities. These findings (full marrow, empty peripheral blood) are most consistent with primary bone marrow disease namely MDS low risk. [place] serum erythropoietin level 348 (July 19, 2024) Started erythrocyte stimulating agent therapy for anemia due to MDS July 27, 2024. He has shown a favorable response with an improvement in H&H and became transfusion independent since July 2024 except for 1 occasion in October 2024 probably related to an acute episode of bleeding. His cytopenias are multifactorial includin. Myelodysplastic syndrome, low risk; using the revised international prognostic scoring system (IPSS R) and primary myelodysplastic syndrome the patient's course 2.5, low risk, 1.4 having good cytogenetics, 0 points for absence of increased blasts and marrow, 1.5 points for hemoglobin less than 8 g per DL, 0 points for platelets above 100 K0.4 absolute neutrophil count of over 800). The estimated risk for AML evaluation is approximately 25% over 10 years. However the patient has evidence of transfusion dependent bone marrow failure. 2. Recurrent iron deficiency since 2023 from external blood loss most likely chronic not identified GI bleeding. His anemia and iron deficiency recur despite supplementation with oral (earlier but no longer able to tolerate due to GI side effects) and therefore he has been repeatedly given IV iron with improvement of iron stores then recurrence. 3. B12 deficiency now corrected with supplementation Chronic comorbid conditions: Chronic heart failure, sleep apnea, morbid obesity, chronic respiratory failure, hypothyroidism and asthenia. Plan: 1. For low risk MDS and a medically unfit and frail patient due to chronic comorbidities and aggressive approach with evaluation for stem cell bone marrow transplant is not advisable. With baseline [place] serum erythropoietin level less than 500 he is a candidate for erythrocyte stimulating agent therapy started at 40,000 units subcu every week July 27, 2024 with dose adjustment depending on response. His H&H did rise and he has not needed as frequent blood transfusions however this is complicated with the fact that he continues to have external blood loss evidenced by drop in ferritin and iron saturation. On Retacrit 40,000 units twice weekly his hemoglobin is below target therefore will increase to 60,000 units twice weekly. Aranesp which can be conveniently administered once weekly was denied by insurance unless he fails Retacrit In future when/if MDS becomes unresponsive to erythrocyte stimulating agent therapy and therapy to consider would be Luspatercept. 2. Transfuse with packed red blood cells for hemoglobin less than 8 g per DL due to significant comorbid cardiovascular disease. 3. Continue B12 injections long-term under the care of his primary care doctor Deirdre. 3. He is unable to tolerate oral iron due to GI side effects and therefore will prescribe iron IV to correct any recurrent iron deficiency to maintain ferritin at or above 100 and iron saturation at or above 20%. He is below target December 2024 and therefore will receive IV iron. 5. In May 2024 he developed an acute right upper extremity DVT complicating a PICC line insertion, he was placed on systemic anticoagulation initially planned a 3-week course after discontinuation of the PICC line however he had a rather precipitous drop in his H&H and therefore was discontinued before completion for concern that the benefit is outweighing the risks of ongoing bleeding. 6. He is a difficult IV access Central venous access may be needed in the future for his lab and treatment. Prophylactic anticoagulation is not advisable since the source of GI blood loss has not been identified and remedied but may consider low-dose aspirin. Patient was seen with his , impression and plan discussed. Herbert Toussaint MD Rubbing Bed Operator, [facility] Divisions of Medical Oncology & Hematology Department of Internal Medicine [place] [id number] This note was generated using a voice recognition system software. Although it was reviewed by the author prior to finalization, it may still contain incorrect words, spelling, and punctuation that were not noted when reviewing prior to saving. If a clinically significant typo or inaccurately typed phrase is noted, please notify the author. Clinical Quality Measures Falls Risk Screening/Assistive Devices Have you fallen in the past year?: No 12/21/24 1138 <Electronically signed by Herbert aldana MD> Date _ Herbert Toussaint MD Cosigner Signature: Date (if applicable) CC: Dr. Angelic Monsalve MD; Josephine Friend, ~ [employer] Work Phone: 1(655) 322-685005-08-2025 Evaluation note* Diagnosis Onset Date Resolution Status Admit Date Iron deficiency anemia chronic Ma y 2024 10:32am MDS (myelodysplastic syndrom e), low grade chronic November 16, 2024 10 :32am Pancytopenia chronic November 16 10:32am Vitamin B12 deficiency chronic Ma y 2024 10:32am Anemia chronic December 07, 2024 8:43am Hypoxia chronic December 07, 2024 8:43am Obesity, morbid chronic December 07, 2024 8:43am GLENN (obstructive sleep apnea) chroni c December 07, 2024 8:43am Iron deficiency anemia chronic Ju ne 2024 9:58am MDS (myelodysplastic syndrom e), low grade chronic December 21, 2024 9:58am Pancytopenia chronic December 21, 2 025 9:58am Vitamin B12 deficiency chronic Ju ne 2024 9:58am Anemia chronic December 26 8:27am Iron deficiency anemia chronic Ju ne 2024 8:27am Iron deficiency anemia chronic Ju ly 2024 9:40am MDS (myelodysplastic syndrom e), low grade chronic January 15, 2025 9 :40am Pancytopenia chronic January 15 9:40am Vitamin B12 deficiency chronic Ju ly 2024 9:40am Anemia chronic February 14 11:26am [facility] Work Phone: 1([phone]) 116-271405-08-2025 Evaluation note* Diagnosis Onset Date Resolution Status Admit Date Iron deficiency anemia chronic Ma y 2024 10:32am MDS (myelodysplastic syndrom e), low grade chronic November 16, 2024 10 :32am Pancytopenia chronic November 16 10:32am Vitamin B12 deficiency chronic Ma y 2024 10:32am Anemia chronic December 07, 2024 8:43am Hypoxia chronic December 07, 2024 8:43am Obesity, morbid chronic December 07, 2024 8:43am GLENN (obstructive sleep apnea) chroni c December 07, 2024 8:43am Iron deficiency anemia chronic Ju ne 2024 9:58am MDS (myelodysplastic syndrom e), low grade chronic December 21, 2024 9:58am Pancytopenia chronic December 21, 2 025 9:58am Vitamin B12 deficiency chronic Ju ne 2024 9:58am Anemia chronic December 26 8:27am Iron deficiency anemia chronic Ju ne 2024 8:27am Iron deficiency anemia chronic Ju ly 2024 9:40am MDS (myelodysplastic syndrom e), low grade chronic January 15, 2025 9 :40am Pancytopenia chronic January 15 9:40am Vitamin B12 deficiency chronic Ju ly 2024 9:40am Anemia chronic February 14 11:26am Iron deficiency anemia chronic [place] 2024 10:46am MDS (myelodysplastic syndrom e), low grade chronic February 22 10:46am Pancytopenia chronic February 22, 2025 10:46am Vitamin B12 deficiency chronic [place] 2024 10:46am [facility] Work Phone: 1(624) 666-778905-08-2025 Evaluation note* Diagnosis Onset Date Resolution Status Admit Date Iron deficiency anemia chronic Ma y 2024 10:32am MDS (myelodysplastic syndrom e), low grade chronic November 16, 2024 10 :32am Pancytopenia chronic November 16 10:32am Vitamin B12 deficiency chronic Ma y 2024 10:32am Anemia chronic December 07, 2024 8:43am Hypoxia chronic December 07, 2024 8:43am Obesity, morbid chronic December 07, 2024 8:43am GLENN (obstructive sleep apnea) chroni c December 07, 2024 8:43am Iron deficiency anemia chronic Ju ne 2024 9:58am MDS (myelodysplastic syndrom e), low grade chronic December 21, 2024 9:58am Pancytopenia chronic December 21, 025 9:58am Vitamin B12 deficiency chronic ne 2024 9:58am Anemia chronic December 26 8:27am Iron deficiency anemia chronic ne 2024 8:27am Iron deficiency anemia chronic ly 2024 9:40am MDS (myelodysplastic syndrom e), low grade chronic January 15, 2025 9 :40am Pancytopenia chronic January 15 9:40am Vitamin B12 deficiency chronic Ju ly 2024 9:40am Anemia chronic February 14 11:26am Difficult intravenous access acute February 21, 2025 12:58pm Encounter for insertion of venous access port acute February 21, 2025 12:58pm MDS (myelodysplastic syndrom e), low grade chronic February 21 12:58pm Iron deficiency anemia chronic [place] 2024 10:46am MDS (myelodysplastic syndrom e), low grade chronic February 22 10:46am Pancytopenia chronic February 22, 2025 10:46am Vitamin B12 deficiency chronic [place] 2024 10:46am [facility] Work Phone: 1(485) 487-300804-10-2025 Evaluation note* Diagnosis Onset Date Resolution Status Admit Date Iron deficiency anemia chronic Ap ril 2024 10:13am MDS (myelodysplastic syndrom e), low grade chronic October 19, 2024 10:13am Pancytopenia chronic October 19, 2024 10:13am Vitamin B12 deficiency chronic Ap ril 2024 10:13am Iron deficiency anemia chronic Ma y 2024 10:32am MDS (myelodysplastic syndrom e), low grade chronic November 16, 2024 10 :32am Pancytopenia chronic November 16 10:32am Vitamin B12 deficiency chronic Ma y 2024 10:32am Anemia chronic December 07, 2024 8:43am Hypoxia chronic December 07, 2024 8:43am Obesity, morbid chronic December 07, 2024 8:43am GLENN (obstructive sleep apnea) chroni c December 07, 2024 8:43am Iron deficiency anemia chronic Ju ne 2024 9:58am MDS (myelodysplastic syndrom e), low grade chronic December 21, 2024 9:58am Pancytopenia chronic December 21, 2 025 9:58am Vitamin B12 deficiency chronic Ju ne 2024 9:58am Anemia chronic December 26 8:27am Iron deficiency anemia chronic Ju ne 2024 8:27am Iron deficiency anemia chronic Ju ly 2024 9:40am MDS (myelodysplastic syndrom e), low grade chronic January 15, 2025 9 :40am Pancytopenia chronic January 15 9:40am Vitamin B12 deficiency chronic Ju ly 2024 9:40am Anemia chronic February 14 11:26am [facility] Work Phone: 1(910) 528-981604-03-2025 Instructions* Patient Instructions* Renato Canales MD, PhD - 10/12/2024 4:34 PM EDT - Use artificial tears in each eye at least 4 times per day. - Do not use visine, cleareyes or any other drops that say gets the red out or redness relieverthese drops contain a chemical that can actually [...] of your eyelid moving out toward your spiritism. Use a baby shampoo (any No Tears formulation) diluted with water. Alternatively you can use nbsivv-hyv-oofrrzs cleaning formulation called Sterilid or Ocusoft lid [...] dry heat. EXAMPLES: Thermalon Dry Eye Compress (MOWGLI, approx $10) [employer] Anti-Stress Microwavable Sinus Pillow ([employer], approx $15) RESOURCES: http://www.Stylehive/encyclopedia/hotcompresses.html This website contains patient information regarding warm compresses and includes a recipe to makeyour own using uncooked rice and a nylon stocking. [facility] NoteDate of Procedure 10/12/2024. Tongue Presser Information Motor Room Controller: re. Interpretation Right Eye Findings include Negative for Enlarged FAITH. Left Eye Findings include Negative for Enlarged FAITH.[id number] NoteDate of Procedure 10/12/2024. Tongue Presser Information Motor Room Controller: re. OCT Macula Interpretation Right Eye Normal without fluid. Left Eye Abnormal foveal contour. Findings include Intraretinal fluid, Cystoid macular edema, Subretinal fluid.[id number] NoteHNO ID: [id number] Author: RENATO CANALES MD, PhD Service: ? Author Type: Physician Type: Progress Notes Filed: 10/12/2024 16:36 Note Text: Previously seen by Dr. Kim [...] blood sugar control and close follow-up with PCP/spinning machine tender -stressed importance of following up with retina [...] eyes -rec artificial tears and warm compresses Myelodysplastic syndrome -getting iron infusions and transfusions Cystoid macular edema left eye -with central edema OS Plan: LTFU since 2022 due to multiple medical issues Anemic from MDS Rec ketorolac four times a day left eye Okay to proceed with getting new refraction Return in 13 weeks for full exam I have confirmed and [...] agree with all of its relevant components. Renato Canales [facility]04-03-[facility]25 History of Present illness Narrative* Renato Canales MD, PhD - 10/12/2024 3:01 PM EDT Previously seen by Dr. Kim [...] blood sugar control and close follow-up with PCP/spinning machine tender -stressed importance of following up with retina [...] eyes -rec artificial tears and warm compresses Myelodysplastic syndrome -getting iron infusions and transfusions Cystoid macular edema left eye -with central edema OS Plan: LTFU since 2022 due to multiple medical issues Anemic from MDS Rec ketorolac four times a day left eye Okay to proceed with getting new refraction Return in 13 weeks for full exam I have confirmed and [...] and agree withall of its relevant components. Renato Canales MD documented in this encounterHol[facility]03-[facility]25 Evaluation note* Diagnosis Onset Date Resolution Status Admit Date Iron deficiency anemia chronic Ma rch 2024 10:33am MDS (myelodysplastic syndrom e), low grade chronic September 21, 2024 10:33am Pancytopenia chronic September 21, 2024 10:33am Vitamin B12 deficiency chronic Ma rch 2024 10:33am Iron deficiency anemia chronic Ap ril 2024 10:13am MDS (myelodysplastic syndrom e), low grade chronic October 19, 2024 10:13am Pancytopenia chronic October 19, 2024 10:13am Vitamin B12 deficiency chronic Ap ril 2024 10:13am Iron deficiency anemia chronic Ma y 2024 10:32am MDS (myelodysplastic syndrom e), low grade chronic November 16, 2024 10 :32am Pancytopenia chronic November 16 10:32am Vitamin B12 deficiency chronic Ma y 2024 10:32am Anemia chronic December 07, 2024 8:43am Hypoxia chronic December 07, 2024 8:43am Obesity, morbid chronic December 07, 2024 8:43am GLENN (obstructive sleep apnea) chroni c December 07, 2024 8:43am Iron deficiency anemia chronic Ju ne 2024 9:58am MDS (myelodysplastic syndrom e), low grade chronic December 21, 2024 9:58am Pancytopenia chronic December 21, 025 9:58am Vitamin B12 deficiency chronic Ju ne 2024 9:58am Anemia chronic December 26 8:27am Iron deficiency anemia chronic Ju ne 2024 8:27am Iron deficiency anemia chronic Ju ly 2024 9:40am MDS (myelodysplastic syndrom e), low grade chronic January 15, 2025 9 :40am Pancytopenia chronic January 15 9:40am Vitamin B12 deficiency chronic Ju ly 2024 9:40am [facility] Work Phone: 1(437) 399-809602-18-2025 Evaluation note* Diagnosis Onset Date Resolution Status Admit Date Back pain chronic August 29, 2024 10:58am MDS (myelodysplastic syndrome), low grade chronic August 292024 10:58am Obesity, morbid chronic August 29, 2024 10:58am GLENN (obstructive sleep apnea) chroni c August 29, 2024 10:58am Iron deficiency anemia chronic Ma rch 2024 10:33am MDS (myelodysplastic syndrome), low grade chronic September 21, 2024 10:33am Pancytopenia chronic September 21, 2024 10:33am Vitamin B12 deficiency chronic Ma rch 2024 10:33am Iron deficiency anemia chronic Ap ril 2024 10:13am MDS (myelodysplastic syndrome), low grade chronic October 19, 2024 10:13am Pancytopenia chronic October 19, 2024 10:13am Vitamin B12 deficiency chronic Ap ril 2024 10:13am Iron deficiency anemia chronic Ma y 2024 10:32am MDS (myelodysplastic syndrome), low grade chronic November 16 10:32am Pancytopenia chronic November 16 10:32am Vitamin B12 deficiency chronic Ma y 2024 10:32am Anemia chronic December 07, 2024 8:43am Hypoxia chronic December 07, 2024 8:43am Obesity, morbid chronic December 07, 2024 8:43am GLENN (obstructive sleep apnea) chroni c December 07, 2024 8:43am Iron deficiency anemia chronic Ju ne 2024 9:58am MDS (myelodysplastic syndrome), low grade chronic December 21, 2024 9:58am Pancytopenia chronic December 21, 2 025 9:58am Vitamin B12 deficiency chronic Ju ne 2024 9:58am Anemia chronic December 26 8:27am Iron deficiency anemia chronic Ju ne 2024 8:27am [facility] Work Phone: 1(736) 904-641402-13-2025 Evaluation note* Diagnosis Onset Date Resolution Status Admit Date Iron deficiency anemia chronic Fe bruary 2024 9:26am MDS (myelodysplastic syndrome), low grade chronic August 242024 9:26am Pancytopenia chronic August 9:26am Vitamin B12 deficiency chronic Fe bruary 2024 9:26am Back pain chronic August 29, 2024 10:58am MDS (myelodysplastic syndrome), low grade chronic August 292024 10:58am Obesity, morbid chronic August 29, 2024 10:58am GLENN (obstructive sleep apnea) chroni c August 29, 2024 10:58am Iron deficiency anemia chronic Ma rch 2024 10:33am MDS (myelodysplastic syndrome), low grade chronic September 21, 2024 10:33am Pancytopenia chronic September 21, 2024 10:33am Vitamin B12 deficiency chronic Ma rch 2024 10:33am Iron deficiency anemia chronic Ap ril 2024 10:13am MDS (myelodysplastic syndrome), low grade chronic October 19, 2024 10:13am Pancytopenia chronic October 19, 2024 10:13am Vitamin B12 deficiency chronic Ap ril 2024 10:13am Iron deficiency anemia chronic Ma y 2024 10:32am MDS (myelodysplastic syndrome), low grade chronic November 16 10:32am Pancytopenia chronic November 16 10:32am Vitamin B12 deficiency chronic Ma y 2024 10:32am [facility] Work Phone: 1(753) 620-315602-13-2025 Evaluation note* Diagnosis Onset Date Resolution Status Admit Date Iron deficiency anemia chronic Fe bruary 2024 9:26am MDS (myelodysplastic syndrome), low grade chronic August 242024 9:26am Pancytopenia chronic August 9:26am Vitamin B12 deficiency chronic Fe bruary 2024 9:26am Back pain chronic August 29, 2024 10:58am MDS (myelodysplastic syndrome), low grade chronic August 292024 10:58am Obesity, morbid chronic August 29, 2024 10:58am GLENN (obstructive sleep apnea) chroni c August 29, 2024 10:58am Iron deficiency anemia chronic Ma rch 2024 10:33am MDS (myelodysplastic syndrome), low grade chronic September 21, 2024 10:33am Pancytopenia chronic September 21, 2024 10:33am Vitamin B12 deficiency chronic Ma rch 2024 10:33am Iron deficiency anemia chronic Ap ril 2024 10:13am MDS (myelodysplastic syndrome), low grade chronic October 19, 2024 10:13am Pancytopenia chronic October 19, 2024 10:13am Vitamin B12 deficiency chronic Ap ril 2024 10:13am Iron deficiency anemia chronic Ma y 2024 10:32am MDS (myelodysplastic syndrome), low grade chronic November 16 10:32am Pancytopenia chronic November 16 10:32am Vitamin B12 deficiency chronic Ma y 2024 10:32am Anemia chronic December 07, 2024 8:43am Hypoxia chronic December 07, 2024 8:43am Obesity, morbid chronic December 07, 2024 8:43am GLENN (obstructive sleep apnea) chroni c December 07, 2024 8:43am Iron deficiency anemia chronic Ju 2024 9:58am MDS (myelodysplastic syndrome), low grade chronic December 21, 2024 9:58am Pancytopenia chronic December 21, 025 9:58am Vitamin B12 deficiency chronic [facility] 2024 9:58am [facility] Work Phone: 1(834) 938-234912-11-2024 Evaluation note* Diagnosis Onset Date Resolution Status Admit Date Iron deficiency anemia chronic De cember 2023 8:47am Pancytopenia chronic June 8:47am Vitamin B12 deficiency chronic De cember 2023 8:47am Deep vein thrombosis (DVT) o f right upper extremity inactive June 112023 8:47am Anemia acute June 22, 2024 8:50am Iron deficiency anemia chronic [facility] 2024 9:32am MDS (myelodysplastic syndrome), low grade chronic July 9:32am Pancytopenia chronic July 19, 2024 9:32am Vitamin B12 deficiency chronic [facility] 2024 9:32am Deep vein thrombosis (DVT) o f right upper extremity inactive July 9:32am Iron deficiency anemia chronic [facility] 2024 10:27am MDS (myelodysplastic syndrome), low grade chronic July 10:27am Pancytopenia chronic July 10:27am Vitamin B12 deficiency chronic [facility] 2024 10:27am Deep vein thrombosis (DVT) o f right upper extremity inactive July 272024 10:27am Iron deficiency anemia chronic Fe bruary 2024 9:26am MDS (myelodysplastic syndrome), low grade chronic August 242024 9:26am Pancytopenia chronic August 9:26am Vitamin B12 deficiency chronic Fe bruary 2024 9:26am GLENN (obstructive sleep apnea) acute August 29, 2024 10:58am Back pain chronic August 29, 2024 10:58am MDS (myelodysplastic syndrome), low grade chronic August 292024 10:58am Obesity, morbid chronic August 29, 2024 10:58am Iron deficiency anemia chronic [facility] 2024 10:33am MDS (myelodysplastic syndrome), low grade chronic September 21, 2024 10:33am Pancytopenia chronic September 21, 2024 10:33am Vitamin B12 deficiency chronic [facility] 2024 10:33am [facility] Work Phone: 1(806) 561-452112-04-2024 Note Discharge Instructions Thank you for allowing [facility] to assist you with your healthcare needs. The following is importantdischarge information regarding your hospital visit. Your Care Team [facility] Your Diagnosis Acute DVT (deep venous thrombosis) Anemia Arm edema Asthenia Dysphagia Heart failure with normal ejection fraction Morbid obesity Pancytopenia Sleep apnea What to do next Instructions From Your Doctor You were admitted to [facility] transitional care program for therapy following a lengthy stay at [facility]. You have progressed well with therapy and are ready to discharge home. You declined home health PT and OT and stated that you would restart outpatient therapy when youare ready. You were diagnosed with blood clots in your right arm during your stay here and will need to continue on the Eliquis 5 mg oral twice daily. We will have you follow-up with your PCP to seehow long she recommends that you continue the eliquis. It is possible that it was caused by a PICC line in your arm but we still defer to your PCP to decide when you can safely stop taking it. The dis charge instructions from [facility] recommended that you follow-up with Dr. Hawk and Dr. Rain to try to get to the bottom of your anemia. They also recommend that you have a sleep study done due to concerns for sleep apnea. We performed an overnight pulse ox on you last night and were able to qualifyyou for home oxygen at night. The equipment will be delivered to your house after you get home. Most of your follow-up appointments have been made and the date and time of your appointments are in your discharge instructions. There is also a follow-up scheduled for Dr. Monsalve. Please keep these appointments or call to reschedule if needed. You will have to call [facility] to schedule a follow-up. We wish you well as you transition home today. Thank you for choosing [facility] for your rehab stay! Follow Up Appointments Follow Up with IGNACIO JOHNSON DO When:Within 5 to 7 days Where:[address] [place] [address] [phone] Additional Information: schedule sleep study Follow Up with ANGELIC MONSALVE MD When:06/19/2024 04:40 PM EST Where:[address] [place] [address]- Additional Information: This is your post-hospital appointment. Follow-up as scheduled. Follow Up with FRIEND, JOSEPHINE MAGUIRE When:06/22/2024 09:00 AM EST Where:[address] [facility] [place] [address]- [phone] Additional Information: This is your gastroenterology appointment. Follow-up as scheduled. Follow Up with HERBERT TOUSSAINT MD When:06/27/2024 12:45 PM EST Where:[address] [place] [address]- [phone] Additional Information: This is your appointment for labs and then you see the doctor at 1:30. Follow-up as scheduled. The Following Activity and Diet Have Been Ordered for You Discharge Activity - Ordered -- Resume your pre-hospitalization activity, 06/14/24 8:42:00 EST Discharge Diet - Ordered -- No changes were made to your diet during your hospital stay. Please resume your pre hospitalization diet on discharge., 06/14/24 8:42:00 EST The Following Equipment Has Been Ordered for You Discharge Home Equipment Discharge Oxygen Therapy - Ordered -- Oxygen @ , Mobile in the Home, Nasal Cannula, 2 liters per minute, 99 month(s), 06/14/24 7:58:00 EST The Following Treatments Have Been Ordered for You Discharge Labs No qualifying data available. Discharge Radiology No qualifying data available. Other Therapies Physical Therapy Outpatient Eval & Treat - Future -- 06/13/24, Other, Future Order, MS[facility], No Post Acute Orders No qualifying data available. Medications Please ask your primary doctor or pharmacist before taking any other medication not listed, including over the counter drugs, herbal medications, vitamins and or supplements as they may interact [facility] medications. What How Much When Instructions Last Dose New acetaminophen (Tylenol) 1,000 Milligram by mouth Three (3) times a day 06/14 @ 9am New apixaban (apixaban 5 mg oral tablet) 1 tab(s) by mouth Two (2) times a day Pickup at [facility] 06/14 @ 9am Changed atorvastatin (atorvastatin 20 mg oral tablet) 2 tab(s) by mouth Daily at bedtime Pickup at [facility] Changed docusate-senna (Senna Plus 50 mg-8.6 mg oral tablet) 2 tab(s) by mouth Two (2) times a day Pickup at [facility] Changed pantoprazole (pantoprazole 40 mg oral enteric coated tablet) 1 tab(s) by mouth Two (2) times daily before meals Pickup at [facility] Unchanged cyanocobalamin (cyanocobalamin 500 mcg oral tablet) 2 tab(s) by mouth Once a day 06/14 @ 9am Unchanged ferrous fumarate-folic acid (Hematinic with Folic Acid 324 mg (106 mg elemental iron)-1 mg oral tablet) 1 tab(s) by mouth Once a day TAKE 1 TABLET BY MOUTH DAILY 06/14 @ 9am Unchanged fluorouracil topical (fluorouracil 5% topical cream) 1 application Topical Two (2) times a day Unchanged furosemide (furosemide 40 mg oral tablet) 1 tab(s) by mouth Once a day did not take today Unchanged levothyroxine (levothyroxine 50 mcg (0.05 mg) oral tablet) 1 tab(s) by mouth Once a day before a meal Unchanged metoprolol (metoprolol succinate 25 mg oral TABLET extended release) 0.5 tab(s) by mouth Two (2) times a day Do not crush or chew (controlled release) Pickup at [facility] #[facility] 06/14 @9am Pharmacy Information [facility] [employer] [facility]: [address] [place], [place] [id number] [phone] What How Much When Comments Stop Taking ferrous sulfate (FeroSul 325 mg (65 mg elemental iron) oraltablet) 1 tab(s) by mouth Three (3) times a day Please take this list to your next doctor s visit. Bring all medications you take, including over the counter medications, herbals and other supplements with you to your doctor s visit. Patients and families are reminded to discard old lists and to update any records with all medication providers or retail pharmacies. Education Materials Deep Vein Thrombosis Deep vein thrombosis (DVT) is a condition in which a blood clot forms in a deep vein, such as a lower leg, thigh, or arm vein. A clot is blood that has thickened into a gel or solid. This condition is dangerous. It can lead to serious and even life-threatening complications if the clot travels to the lungs and causes a blockage (pulmonary embolism). It can also damage veins in the leg. This can result in leg pain, swelling, discoloration, and sores (post- thrombotic syndrome). What are the causes? This condition may be caused by: A slowdown of blood flow. Damage to a vein. A condition that causes blood to clot more easily, such as an inherited clotting disorder. What increases the risk? The following factors may make you more likely to develop this condition: Being overweight. Being older, especially over age 60. Sitting or lying down for more than four hours. Being in the hospital. Lack of physical activity (sedentary lifestyle). , being in childbirth, or having recently given . Taking medicines that contain estrogen, such as medicines to prevent . Smoking. A history of any of the following: ? Blood clots or a blood clotting disease. ? Peripheral vascular disease. ? Inflammatory bowel disease. ? Cancer. ? Heart disease. ? Genetic conditions that affect how your blood clots, such as Factor V Leiden mutation. ? Neurological diseases that affect your legs (leg paresis). ? A recent injury, such as a car accident. ? Major or lengthy surgery. ? A central line placed inside a large vein. What are the signs or symptoms? Symptoms of this condition include: Swelling, pain, or tenderness in an arm or leg. Warmth, redness, or discoloration in an arm or leg. If the clot is in your leg, symptoms may be more noticeable or worse when you stand or walk. Some people may not develop any symptoms. How is this diagnosed? This condition is diagnosed with: A medical history and physical exam. Tests, such as: ? Blood tests. These are done to check how well your blood clots. ? Ultrasound. This is done to check for clots. ? Venogram. For this test, contrast dye is injected into a vein and X-rays are taken to check for anyclots. How is this treated? Treatment for this condition depends on: The cause of your DVT. Your risk for bleeding or developing more clots. Any other medical conditions that you have. Treatment may include: Taking a blood thinner (anticoagulant). This type of medicine prevents clots from forming. It may be taken by mouth, injected under the skin, or injected through an IV (catheter). Injecting clot-dissolving medicines into the affected vein (catheter-directed thrombolysis). Having surgery. Surgery may be done to: ? Remove the clot. ? Place a filter in a large vein to catch blood clots before they reach the lungs. Some treatments may be continued for up to six months. Follow these instructions at home: If you are taking blood thinners: Take the medicine exactly as told by your health care provider. Some blood thinners need to be taken at the same time every day. Do not skip a dose. Talk with your health care provider before you take any medicines that contain aspirin or NSAIDs. These medicines increase your risk for dangerous bleeding. Ask your health care provider about foods and drugs that could change the way the medicine works (may interact). Avoid those things if your health care provider tells you to do so. Blood thinners can cause easy bruising and may make it difficult to stop bleeding. Because of this: ? Be very careful when using knives, scissors, or other sharp objects. ? Use an electric razor instead of a blade. ? Avoid activities that could cause injury or bruising, and follow instructions about how to prevent falls. Wear a medical alert bracelet or carry a card that lists what medicines you take. General instructions Take btrn-zuv-zeoxtmq and prescription medicines only as told by your health care provider. Return to your normal activities as told by your health care provider. Ask your health care provider what activities are safe for you. Wear compression stockings if recommended by your health care provider. Keep all follow-up visits as told by your health care provider. This is important. How is this prevented? To lower your risk of developing this condition again: For 30 or more minutes every day, do an activity that: ? Involves moving your arms and legs. ? Increases your heart rate. When traveling for longer than four hours: ? Exercise your arms and legs every hour. ? Drink plenty of water. ? Avoid drinking alcohol. Avoid sitting or lying for a long time without moving your legs. If you have surgery or you are hospitalized, ask about ways to prevent blood clots. These may include taking frequent walks or using anticoagulants. Stay at a healthy weight. If you are a woman who is older than age 35, avoid unnecessary use of medicines that contain estrogen, such as some control pills. Do not use any products that contain nicotine or tobacco, such as cigarettes and e-cigarettes. Thisis especially important if you take estrogen medicines. If you need help quitting, ask your health care provider. Contact a health care provider if: You miss a dose of your blood thinner. Your menstrual period is heavier than usual. You have unusual bruising. Get help right away if: You have: ? New or increased pain, swelling, or redness in an arm or leg. ? Numbness or tingling in an arm or leg. ? Shortness of breath. ? Chest pain. ? A rapid or irregular heartbeat. ? A severe headache or confusion. ? A cut that will not stop bleeding. There is blood in your vomit, stool, or urine. You have a serious fall or accident, or you hit your head. You feel light-headed or dizzy. You cough up blood. These symptoms may represent a serious problem that is an emergency. Do not wait to see if the symptoms will go away. Get medical help right away. Call your local emergency services (911 in the [place] Do not drive yourself to the hospital. Summary Deep vein thrombosis (DVT) is a condition in which a blood clot forms in a deep vein, such as a lower leg, thigh, or arm vein. Symptoms can include swelling, warmth, pain, and redness in your leg or arm. This condition may be treated with a blood thinner (anticoagulant medicine), medicine that is injected to dissolve blood clots,compression stockings, or surgery. If you are prescribed blood thinners, take them exactly as told. This information is not intended to replace advice given to you by your health care provider. Make sure you discuss any questions you have with your health care provider. Document Released: 06/28/2006 Document Revised: 06/10/2018 Document Reviewed: 11/26/2017 [employer] Patient Education 2020 [employer] Weakness Weakness is a lack of strength. You may feel weak all over your body (generalized), or you may feelweak in one part of your body (focal). There are many potential causes of weakness. Sometimes, the cause of your weakness may not be known. Some causes of weakness can be serious, so it is important to see your doctor. Follow these instructions at home: Activity Rest as needed. Try to get enough sleep. Most adults need 7 8 hours of sleep each night. Talk to your doctor about how much sleep you need each night. Do exercises, such as arm curls and leg raises, for 30 minutes at least 2 days a week or as told byyour doctor. Think about working with a physical therapist or openstack developer to help you get stronger. General instructions Take pvzd-hag-lpsvzdd and prescription medicines only as told by your doctor. Eat a healthy, well-balanced diet. This includes: ? Proteins to build muscles, such as lean meats and fish. ? Fresh fruits and vegetables. ? Carbohydrates to boost energy, such as whole grains. Drink enough fluid to keep your pee (urine) pale yellow. Keep all follow-up visits as told by your doctor. This is important. Contact a doctor if: Your weakness does not get better or it gets worse. Your weakness affects your ability to: ? Think clearly. ? Do your normal daily activities. Get help right away if you: Have sudden weakness on one side of your face or body. Have chest pain. Have trouble breathing or shortness of breath. Have problems with your vision. Have trouble talking or swallowing. Have trouble standing or walking. Are light-headed. Pass out (lose consciousness). Summary Weakness is a lack of strength. You may feel weak all over your body or just in one part of your body. There are many potential causes of weakness. Sometimes, the cause of your weakness may not be known. Rest as needed, and try to get enough sleep. Most adults need 7 8 hours of sleep each night. Eat a healthy, well-balanced diet. This information is not intended to replace advice given to you by your health care provider. Make sure you discuss any questions you have with your health care provider. Document Released: 06/10/2009 Document Revised: 02/01/2019 Document Reviewed: 02/01/2019 [employer] Patient Education 2020 [employer] Additional Information VACCINATE! IT SAVES LIVES! Members of the community who have not yet received the COVID-19 vaccine and would like to receive it can visit one of [facility] vaccine clinics. There are many vaccine clinic locations within the [facility]. For locations and available times, please visit https://gettheshot.coronavirus.[place].gov/. It is important to note that some COVID mobile vaccine clinics are held outdoors and may be canceled in rainy or stormy conditions. To learn more about pediatric vaccinations (ages 5-11), we invite you to visit the [facility] webpage. https://www.[facility].org/pages/5886-Cdyhx-Rsrhkvqhmsd-Rarvcugcga-Bxpkl-Luv stions.htmlTo learn more about the COVID-19 vaccine, we invite you to visit the CDC website for a list of frequently asked questions.https://www.cdc.gov/coronavirus/2019-ncov/vaccines/faq.html [facility] Patient Portal Access Instructions: Stay connected with your healthcare team and access your personal medical information anytime with the [facility] Patient Portal. Please follow the directions below to create your [facility] account: 1.Access the email account you provided upon registration to the hospital/physician office.2.Look for an invitation email from [facility].3.Open the email and access the invitation link: AcceptInvitation to [facility].4.Fill in the required wylie to create your account. To access your account, visit [email or web address]. Click the blue button labeled Access Patient [...] who you will allowto register on the [facility] Patient Portal for access to your information. You can also access the [facility] Patient Portal on the [facility] kan. Simply click on Patient Portal and then log into your account. If you would like to receive a full copy of your medical records, please contact the [facility] Medical Records Department by calling [phone], Wednesday through Wednesday between 8 a.m. and [...] Call your local pharmacy or go to [email or web address] to find one close to you.3.Make use of household items: Use cat litter or old coffee grounds to dispose medications if other options arenot available. Mix your drugs with these household products, seal them in an airtight container andthrow it into the garbage. Call [facility]: [phone] to be sure your drugs can be [...] a CHART COPY. Signatures Patient Education Materials Deep Vein Thrombosis Weakness, Nfhu-gf-Hbyb Medication Leaflets My discharge plan and instructions have been reviewed and explained to me and IDORY PHILIP A understand my current condition and have read and understand these discharge instructions. I have received a written copy of the plan/instructions. If I have questions, I am aware that I should contact my doctor. 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 Study start time: 06/13/24 22:08 Study end time: 06/14/24 05:40 Total Duration: 7 hrs 32 min Total Desats: 206 (27.3/hr) SpO2(5) range: 55-99% on room air SpO2 duration <89%: 2 hrs and 4 min (27.5%) Shortest desaturation time: 10 seconds Longest desaturation duration: 329 seconds Full report attached to patients chart. Will fax to home care [employer] is needed Rakel Ohara RRT Digitally Signed by Rakel Ohara RRT on 06/14/2024 08:46 AM [facility]12-03-2024 Hospital Discharge instructions Patient Education 06/13/2024 12:55:41 Deep Vein Thrombosis Deep Vein Thrombosis Deep vein thrombosis (DVT) is a condition in which a blood clot forms in a deep vein, such as a lower leg, thigh, or arm vein. A clot is blood that has thickened into a gel or solid. This condition is dangerous. It can lead to serious and even life-threatening complications if the clot travels to the lungs and causes a blockage (pulmonary embolism). It can also damage veins in the leg. This can result in leg pain, swelling, discoloration, and sores (post- thrombotic syndrome). What are the causes? This condition may be caused by: A slowdown of blood flow. Damage to a vein. A condition that causes blood to clot more easily, such as an inherited clotting disorder. What increases the risk? The following factors may make you more likely to develop this condition: Being overweight. Being older, especially over age 60. Sitting or lying down for more than four hours. Being in the hospital. Lack of physical activity (sedentary lifestyle). , being in childbirth, or having recently given . Taking medicines that contain estrogen, such as medicines to prevent . Smoking. A history of any of the following: ?Blood clots or a blood clotting disease. ?Peripheral vascular disease. ?Inflammatory bowel disease. ?Cancer. ?Heart disease. ?Genetic conditions that affect how your blood clots, such as Factor V Leiden mutation. ?Neurological diseases that affect your legs (leg paresis). ?A recent injury, such as a car accident. ?Major or lengthy surgery. ?A central line placed inside a large vein. What are the signs or symptoms? Symptoms of this condition include: Swelling, pain, or tenderness in an arm or leg. Warmth, redness, or discoloration in an arm or leg. If the clot is in your leg, symptoms may be more noticeable or worse when you stand or walk. Some people may not develop any symptoms. How is this diagnosed? This condition is diagnosed with: A medical history and physical exam. Tests, such as: ?Blood tests. These are done to check how well your blood clots. ?Ultrasound. This is done to check for clots. ?Venogram. For this test, contrast dye is injected into a vein and X-rays are taken to check for any clots. How is this treated? Treatment for this condition depends on: The cause of your DVT. Your risk for bleeding or developing more clots. Any other medical conditions that you have. Treatment may include: Taking a blood thinner (anticoagulant). This type of medicine prevents clots from forming. It may be taken by mouth, injected under the skin, or injected through an IV (catheter). Injecting clot-dissolving medicines into the affected vein (catheter-directed thrombolysis). Having surgery. Surgery may be done to: ?Remove the clot. ?Place a filter in a large vein to catch blood clots before they reach the lungs. Some treatments may be continued for up to six months. Follow these instructions at home: If you are taking blood thinners: Take the medicine exactly as told by your health care provider. Some blood thinners need to be taken at the same time every day. Do not skip a dose. Talk with your health care provider before you take any medicines that contain aspirin or NSAIDs. These medicines increase your risk for dangerous bleeding. Ask your health care provider about foods and drugs that could change the way the medicine works (may interact). Avoid those things if your health care provider tells you to do so. Blood thinners can cause easy bruising and may make it difficult to stop bleeding. Because of this: ?Be very careful when using knives, scissors, or other sharp objects. ?Use an electric razor instead of a blade. ?Avoid activities that could cause injury or bruising, and follow instructions about how to preventfalls. Wear a medical alert bracelet or carry a card that lists what medicines you take. General instructions Take jkon-hnr-kauxyvr and prescription medicines only as told by your health care provider. Return to your normal activities as told by your health care provider. Ask your health care provider what activities are safe for you. Wear compression stockings if recommended by your health care provider. Keep all follow-up visits as told by your health care provider. This is important. How is this prevented? To lower your risk of developing this condition again: For 30 or more minutes every day, do an activity that: ?Involves moving your arms and legs. ?Increases your heart rate. When traveling for longer than four hours: ?Exercise your arms and legs every hour. ?Drink plenty of water. ?Avoid drinking alcohol. Avoid sitting or lying for a long time without moving your legs. If you have surgery or you are hospitalized, ask about ways to prevent blood clots. These may include taking frequent walks or using anticoagulants. Stay at a healthy weight. If you are a woman who is older than age 35, avoid unnecessary use of medicines that contain estrogen, such as some control pills. Do not use any products that contain nicotine or tobacco, such as cigarettes and e-cigarettes. Thisis especially important if you take estrogen medicines. If you need help quitting, ask your health care provider. Contact a health care provider if: You miss a dose of your blood thinner. Your menstrual period is heavier than usual. You have unusual bruising. Get help right away if: You have: ?New or increased pain, swelling, or redness in an arm or leg. ?Numbness or tingling in an arm or leg. ?Shortness of breath. ?Chest pain. ?A rapid or irregular heartbeat. ?A severe headache or confusion. ?A cut that will not stop bleeding. There is blood in your vomit, stool, or urine. You have a serious fall or accident, or you hit your head. You feel light-headed or dizzy. You cough up blood. These symptoms may represent a serious problem that is an emergency. Do not wait to see if the symptoms will go away. Get medical help right away. Call your local emergency services (911 in the [place] Do not drive yourself to the hospital. Summary Deep vein thrombosis (DVT) is a condition in which a blood clot forms in a deep vein, such as a lower leg, thigh, or arm vein. Symptoms can include swelling, warmth, pain, and redness in your leg or arm. This condition may be treated with a blood thinner (anticoagulant medicine), medicine that is injected to dissolve blood clots,compression stockings, or surgery. If you are prescribed blood thinners, take them exactly as told. This information is not intended to replace advice given to you by your health care provider. Make sure you discuss any questions you have with your health care provider. Document Released: 06/28/2006 Document Revised: 06/10/2018 Document Reviewed: 11/26/2017 [employer] Patient Education 2020 [email or web address]. 06/13/2024 12:54:10 Weakness, [id number] Weakness Weakness is a lack of strength. You may feel weak all over your body (generalized), or you may feelweak in one part of your body (focal). There are many potential causes of weakness. Sometimes, the cause of your weakness may not be known. Some causes of weakness can be serious, so it is important to see your doctor. Follow these instructions at home: Activity Rest as needed. Try to get enough sleep. Most adults need 7 8 hours of sleep each night. Talk to your doctor about how much sleep you need each night. Do exercises, such as arm curls and leg raises, for 30 minutes at least 2 days a week or as told byyour doctor. Think about working with a physical therapist or openstack developer to help you get stronger. General instructions Take [id number] and prescription medicines only as told by your doctor. Eat a healthy, well-balanced diet. This includes: ?Proteins to build muscles, such as lean meats and fish. ?Fresh fruits and vegetables. ?Carbohydrates to boost energy, such as whole grains. Drink enough fluid to keep your pee (urine) pale yellow. Keep all follow-up visits as told by your doctor. This is important. Contact a doctor if: Your weakness does not get better or it gets worse. Your weakness affects your ability to: ?Think clearly. ?Do your normal daily activities. Get help right away if you: Have sudden weakness on one side of your face or body. Have chest pain. Have trouble breathing or shortness of breath. Have problems with your vision. Have trouble talking or swallowing. Have trouble standing or walking. Are light-headed. Pass out (lose consciousness). Summary Weakness is a lack of strength. You may feel weak all over your body or just in one part of your body. There are many potential causes of weakness. Sometimes, the cause of your weakness may not be known. Rest as needed, and try to get enough sleep. Most adults need 7 8 hours of sleep each night. Eat a healthy, well-balanced diet. This information is not intended to replace advice given to you by your health care provider. Make sure you discuss any questions you have with your health care provider. Document Released: 06/10/2009 Document Revised: 02/01/2019 Document Reviewed: 02/01/2019 [employer] Patient Education 2020 [email or web address]. Follow Up Care 05/31/2024 10:14:13 With:IGNACIO JOHNSON DO Address: [address] [place] [phone]- [phone] When:5 to 7 days Comments:schedule sleep study With:HERBERT TOUSSAINT MD Address: [address] [place] [phone] When:06/27/2024 12:45:00 Comments:This is your appointment for labs and then you see the doctor at 1:30. Follow-up as scheduled. With:JOSEPHINE HAWK DO Address: [address] [place] [address] [place] [phone]- [phone] When:06/22/2024 09:00:00 Comments:This is your gastroenterology appointment. Follow-up as scheduled. With:ANGELIC MONSALVE MD Address: [address] [place] [phone] When:06/19/2024 16:40:00 Comments:This is your post-hospital appointment. Follow-up as scheduled. [facility] 12-03-2024 Nurse Progress note This nurse agrees with charting of Keyona Enciso LPN. Digitally Signed by Anneliese Trotter RN on 06/13/2024 11:37 AM [facility]12-03-2024 Pastoral care Progress note Pastoral Care Note Entered On: 06/13/2024 8:52 EST Performed On: 06/13/2024 8:49 EST by Uriel Wheeler Pastoral Care Type of Pastoral Visit : Follow up visit Spiritual Care Visit Initiated by : Flow Specialist Spiritual Care Reason for Visit : General Pastoral Care Referral From : Patient Spiritual Assessment : Positive Image of God Spiritual Care Emotional Assessment : Pessimistic Spiritual Care Intervention : Active listening, Supportive presence Spiritual Outcomes : Expresses Gratitude, Embraces Present Moment Spiritual Plan of Care : No Further Action Pastoral Care Comments : patient just received his breakfast but does not want to eat yet; pt admits that this is going on long and but I'm going home soon; pt admits that he has some concern about being at home but also looking forward to giving it a try; pt ended the visit when he requested to call help for bathroom Pastoral Care Visit Length : 10 minute(s) Uriel Wheeler - 06/13/2024 8:49 EST Digitally Signed by Uriel Wheeler on 06/13/2024 08:49 AM [facility]12-03-2024 Respiratory therapy Hospital Progress note Pt complains of excessive pressure on PAP while asleep Trialing titrated EPAP for better comfort from 10 to 8. Adequate volumes achieved on new setting New BiPAP settings 14/8 30%, order updated per change Digitally Signed by Tiffany Murphy RT on 06/13/2024 12:39 AM [facility]12-02-2024 Nurse Progress note This nurse agrees with Honey Rodarte RN charting Digitally Signed by Anneliese Trotter RN on 06/12/2024 05:49 PM [facility]11-30-2024 Note Date of Service 06/10/2024 Chief Complaint weakness Subjective Patient seen and evaluated this morning while resting in bed. He states that he is doing well otherthan having profuse diarrhea. Patient states his told him that he was given multiple bags of IV iron over at [facility] and he believes the diarrhea is from that. He then adds that one dose of loperamide usually fixes the problem. Would interpret that to mean that he chronically has diarrhea possibly. Will start loperamide today PRN. Nursing reports that it does not appear to be C. diff-like but itdark and greenish likely from his iron supplements. Patient denies any abdominal pain or nausea. Patient denies any fever, chills, cough, shortness of breath, chest pain, abdominal pain, nausea or dysuria. Discussed with respiratory doing an overnight pulse ox on patient early next week so he can be qualified for oxygen at night when he goes home. Respiratory will pass on in report. All questionsanswered. Objective Vitals and Measurements T: 36.4 C (Oral) HR: 63 (Apical) RR: 17 BP: 138/59 SpO2: 97% WT: 150.3 kg Intake and Output 7AM Yesterday to 7AM Today Intake and Output (Last 24 hours) Intake Oral Intake 300.00 Output Urinary Catheter Output: 350.00 Stool Count 3.00 Urine Count 2.00 Total Summary Total Intake 300.00 Total Output 350.00 Fluid Balance -50.00 Physical Exam General: No acute distress. Patient is alert, chronically ill-appearing. Skin: No rash. Skin is warm, dry and intact. HEENT: Head is normocephalic, atraumatic. Pupils are equal, round and reactive. Neck: Supple. No lymphadenopathy, thyromegaly. Lungs: Bilaterally clear but diminished without crepitation or wheeze. Unlabored. Heart: Heart is regular rhythm, S1, S2. No murmurs, gallops or rubs. Abdomen: Abdomen is soft, nontender, obese. Bowels sounds present in all quadrants. Extremities: No clubbing, cyanosis; 2+ pitting edema in BLE. Peripheral pulses palpable. No calf tenderness. Neurological: Patient is awake and alert to person, place and time. Following simple commands, moving all extremities. Weight Current Weight Dosing Weight: 158.2 kg (06/02/24) Current Weight: 150.3 kg (06/10/24) Dosing Weight: 163 kg (05/31/24) Current Weight: 151.8 kg (06/09/24) Medications Medications (23) Active Scheduled: (11) acetaminophen 500 mg Tablet 1,000 mg 2 tab(s), Oral, TID apixaban 5 mg tablet 10 mg 2 tab(s), Oral, BID apixaban 5 mg tablet 5 mg 1 tab(s), Oral, BID atorvastatin 40 mg tablet 40 mg 1 tab(s), Oral, qHS cyanocobalamin 500 mcg Tablet 1,000 mcg 2 tab(s), Oral, qDay docusate-senna (Senokot S) 50 mg-8.6 mg Tablet 2 tab(s), Oral, BID furosemide 40 mg tablet 40 mg 1 tab(s), Oral, qDay Hematinic with Folic Acid 324 mg (106 mg elemental iron)-1 mg oral tablet 1 tab(s), Oral, qDay levothyroxine 75 mcg tablet 75 mcg 1 tab(s), Oral, qDayAC metoprolol tartrate 25 mg tablet 12.5 mg 0.5 tab(s), Oral, BID pantoprazole 20 mg EC tablet 40 mg 2 tab(s), Oral, BIDAC Continuous: (0) PRN: (12) acetaminophen 325 mg Tablet 650 mg 2 tab(s), Oral, q4h acetaminophen 325 mg Tablet 650 mg 2 tab(s), Oral, q4h Al hydrox/Mg hydrox/simethicone 200-200-20 mg/5 mL Susp UD 15 mL, Oral, q4h albuterol - ipratropium 2.5 mg-0.5 mg/3 mL Inhal Silvina UD 3 mL, Inhalation, q4hRT docusate sodium 100 mg Capsule 100 mg 1 cap(s), Oral, BID emollients (Desitin) 1 kan, Topical, AsDirected guaifenesin 100 mg/5 mL Liquid SUGAR-FREE 120 mL 200 mg 10 mL, Oral, q4h loperamide 2 mg capsule 2 mg 1 cap(s), Oral, q4h melatonin 3 mg tablet 6 mg 2 tab(s), Oral, qHS menthol (Biofreeze) gel packet 1 kan, Topical, TID miconazole topical 2% Powder 1 kan, Topical, BID polyethylene glycol 3350 - UD packet 17 gram(s) 15 mL, Oral, BID Lab Results No 36 Hour Lab Data Assessment/Plan 1. Asthenia Continue PT and OT. Patient is progressing well. Insurance update on Wednesday, 06/12. 2. Heart failure with normal ejection fraction Suspected. Limited echocardiogram done on 05/18 showed technically difficult study. Mild concentric LVH. LVEF 70%. Trace MV regurgitation. AV not well- visualized. Left atrium was severely enlarged. Continue Lasix 40 mg daily. 3. Anemia TANMAY and B12 deficiency. Continue oral B12 and oral iron. Hemoglobin stable at 9 on 06/03 but dropped to 8.5 on 06/07. Repeat CBC on 06/12. Patient had complaints of constipation from iron supplementation so was started on as needed MiraLAX and Colace. Stop docusate-senna as he now complains of frequent diarrhea from the IV iron he was given at [facility]. Loperamide added PRN. 5. Sleep apnea This is suspected per documentation from waste disposal plant operator and materials intern at [facility]. Patient will need to undergo sleep study on an outpatient basis. and patient requested home oxygen at night when he is discharged home. Will have respiratory do overnight pulse ox a night or two before d/c. 6. Morbid obesity There was mention of type 2 diabetes mellitus in patient's history however his last 2 hemoglobin A1c's were 5.4 (12/2023) and 5.6 (05/2024). Obesity complicating all aspects of care. 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 Per hair worker note on 05/04 there is plan for patient to undergo bone marrow biopsy. Dysphagia patient underwent MBS at [facility]. He was found to be retaining food in his esophagus. Recommendations for soft and bite sized diet. Recommendations for sip of fluid following every bite as wellas staying upright for 30 minutes after meals. Patient is asking again if his diet can be advanced.Patient would need to have another full evaluation before this could be done. Discussed with interdisciplinary team including dietitian who states that he is limited in his choices. He is asking for scrambled eggs. If patient would like another evaluation he would need to have another modified barium swallow on an outpatient basis. Chronic pain lidocaine patches to his back. Acute DVT-Right arm edema, pain. Patient had a PICC line in this arm. Venous doppler done and was positive for DVT Right brachial, right subclavian, right axillary vein. Start Apixaban 10mg BID x 7 days, then Apixiban 5mg BID. Given patients history of anemia, will monitor CBC more closely while onNOAC. This note will be forwarded to Dr. Toussaint, hematology. DVT prophylaxis with apixaban. Code Status: Full Code. Labs, diagnostic test and progress notes reviewed as noted in HPI. Plan of care discussed with patient. All questions answered. Patient verbalizes understanding and is agreeable with plan of care. This case was discussed with collaborating physician, Dr. David Rahman. Anticipated Date of Discharge probably early next week Time Spent 28 minutes spent reviewing past diagnostic tests, reviewing lab results, vital sign trends, medicalhistory, reviewing medications and ordering home medications, examining patient, discussed plan of care with care team, collaborating with physician, and documenting in chart. Digitally Signed by TAI GOODWIN on 06/10/2024 09:18 AM [facility]11-26-2024 Nurse Progress note Dressing on right heel removed. Moderate sanguinous drainage on dressing, no odor noted. Sensation to touch on wound site, pt denies pain. Site cleaned with sterile NS, pat dry, and new dressing applied. Kerlix, non adherent dressing, ABD, gauze wrap, and secured with aldo wrap. Pt tolerated withoutdifficulty. Digitally Signed by Yani Johnson Financial Aid Administrator on 06/06/2024 03:26 PM [facility]11-26-2024 Pastoral care Progress note Pastoral Care Note Entered On: 06/06/2024 9:27 EST Performed On: 06/06/2024 9:24 EST by Uriel Wheeler Pastoral Care Type of Pastoral Visit : Follow up visit Spiritual Care Visit Initiated by : Flow Specialist Spiritual Care Reason for Visit : General Pastoral Care Referral From : Patient Spiritual Assessment : Spiritual, not Nondenominational, Grateful/Thankful, Positive Image of God Spiritual Care Emotional Assessment : Thoughtful/Reflective, Pessimistic Spiritual Care Intervention : Active listening, Facilitate Life Review, Explore Emotional Needs, Conversation Spiritual Outcomes : Expresses Gratitude, Set realistic goals Spiritual Plan of Care : Visit as Requested Pastoral Care Comments : patient is talkative about his life and family; pt speaks of his knowledgeof mechanical matters 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 Auth (Verified) [facility] 11-25-2024 Note Date of Service 06/05/2024 Chief Complaint Asthenia Subjective 63-year-old male with past medical history significant for iron deficiency anemia, B12 deficiency, GLENN (not formally diagnosed), hypothyroidism, chronic pain, chronic pancytopenia (concern for MDS-planning for bone marrow biopsy, following with Dr. Toussaint, hematology), chronic edema, right foot drop. Patient originally presented to [facility] ED on 05/17/2024 increasing edema and dyspnea. Presentation suspicious for volume overload. Patient has a history of chronic anemia. Patient was seen by hematology on 05/08. There is concern for MDS and they are planning for bone marrow biopsy. He underwent 2 colonoscopies and 1 EGD by and has found no source of bleeding. On 05/13 patient received 2 PRBCs and 1 iron infusion. Patient admits that he is not always compliant with his Lasix due to feelingweak and frequent urination. Echocardiogram done 12/2023 showed LVEF of 65%. No mention of diastolic dysfunction though it was a technically limited study. No valvular disease. Left atria normal. He was diuresed and admitted. Patient was found to be in acute hypoxic, hypercapnic respiratory failure.Initially required BiPAP but was not showing any improvement and was subsequently intubated. This was thought to be secondary to pneumonia versus fluid overload. He was treated with prophylactic antibiotics and bronchodilators. He was having some frequent coughing and choking episodes. Patient's had a modified barium swallow on 05/26 with retention of putting in mid esophagus which was cleared with liquids. Speech therapy recommended mechanical soft textures and thin liquids. Small bites, smallsips. Recommendation for patient to alternate bite followed by sips. Recommendation for patient to be sitting upright for 30 minutes after oral intake and to have close supervision. He was evaluated by therapy services with recommendation for SNF And was subsequently admitted to [facility] TCU. Patient has been progressing with therapy services. Nursing reported progressively increasing worsening arm edema on the right. He does have a history of having a PICC line in that arm. He complains of discomfort and edema. He has been taking Lasix consistently for chronic lower extremity edema with suspected heart failure. Admission weight was 163 kg. Weight today is 157.9 kg. Objective Vitals and Measurements T: 36.7 C (Oral) HR: 83 (Apical) RR: 18 BP: 138/65 SpO2: 97% WT: 157.9 kg Intake and Output 7AM Yesterday to 7AM Today Intake and Output (Last 24 hours) Intake Oral Intake 380.00 Output Urine Voided 320.00 Stool Count 0.00 Urine Count 5.00 Emesis Count 0.00 Total Summary Total Intake 380.00 Total Output 320.00 Fluid Balance 60.00 Physical Exam GEN: Appears chronically ill CHEST: Normal S1 and S2. Rhythm is regular. Clear to auscultation, without rales, rhonchi, wheezing. ABD: Positive bowel sounds x 4 quads. Soft, nondistended, nontender. EXT: No significant deformity or joint abnormality. Peripheral pulses intact. Right arm edema. Chronic BLE nonpitting edema NEURO: Sensation grossly intact SKIN: Chronic vascular discoloration to BLE. PSYCH: The mental examination revealed the patient was alert and oriented x 4 Weight Current Weight Dosing Weight: 158.2 kg (06/02/24) Current Weight: 157.9 kg (06/05/24) Dosing Weight: 163 kg (05/31/24) Current Weight: 165 kg (06/01/24) Medications Medications (24) Active Scheduled: (13) acetaminophen 500 mg Tablet 1,000 mg 2 tab(s), Oral, TID apixaban 5 mg tablet 10 mg 2 tab(s), Oral, BID apixaban 5 mg tablet 5 mg 1 tab(s), Oral, BID atorvastatin 40 mg tablet 40 mg 1 tab(s), Oral, qHS cyanocobalamin 500 mcg Tablet 1,000 mcg 2 tab(s), Oral, qDay docusate-senna (Senokot S) 50 mg-8.6 mg Tablet 2 tab(s), Oral, BID fluticasone nasal 0.05 mg/inh [place] 50 mcg 1 spray(s), Nostril, each, BID furosemide 40 mg tablet 40 mg 1 tab(s), Oral, qDay Hematinic with Folic Acid 324 mg (106 mg elemental iron)-1 mg oral tablet 1 tab(s), Oral, qDay lidocaine patch REMOVAL 1 EA, Miscellaneous, q24h lidocaine topical 4% patch 1 patch(es), Transdermal, q24h metoprolol tartrate 25 mg tablet 12.5 mg 0.5 tab(s), Oral, BID pantoprazole 20 mg EC tablet 40 mg 2 tab(s), Oral, BIDAC Continuous: (0) PRN: (11) acetaminophen 325 mg Tablet 650 mg 2 tab(s), Oral, q4h acetaminophen 325 mg Tablet 650 mg 2 tab(s), Oral, q4h Al hydrox/Mg hydrox/simethicone 200-200-20 mg/5 mL Susp UD 15 mL, Oral, q4h albuterol - ipratropium 2.5 mg-0.5 mg/3 mL Inhal Silvina UD 3 mL, Inhalation, q4hRT docusate sodium 100 mg Capsule 100 mg 1 cap(s), Oral, BID emollients (Desitin) 1 kan, Topical, AsDirected guaifenesin 100 mg/5 mL Liquid SUGAR-FREE 120 mL 200 mg 10 mL, Oral, q4h melatonin 3 mg tablet 6 mg 2 tab(s), Oral, qHS menthol (Biofreeze) gel packet 1 kan, Topical, TID miconazole topical 2% Powder 1 kan, Topical, BID polyethylene glycol 3350 - UD packet 17 gram(s) 15 mL, Oral, BID Lab Results WBC: 2.8 10^3/mcL Low (06/03/24 05:55:00) RBC: 2.97 10^6/mcL Low (06/03/24 05:55:00) Hgb: 9 G/dL Low (06/03/24 05:55:00) Hct: 28.2 % Low (06/03/24 05:55:00) MCV: 95 fL (06/03/24 05:55:00) MCH: 30.4 pg (06/03/24 05:55:00) MCHC: 32 G/dL (06/03/24 05:55:00) RDW: 22.9 % High (06/03/24 05:55:00) Platelet: 193 10^3/mcL (06/03/24 05:55:00) MPV: 7.5 fL (06/03/24 05:55:00) Neutrophil %, Manual: 61 % (06/03/24 05:55:00) Lymphocyte %, Manual: 31 % (06/03/24 05:55:00) Monocyte %, Manual: 1 % Low (06/03/24 05:55:00) Eosinophil %, Manual: 5 % (06/03/24 05:55:00) Basophil %, Manual: 0 % (06/03/24 05:55:00) Bands: 2 % (06/03/24 05:55:00) Nucleated RBC: 0 /100 WBC (06/03/24 05:55:00) Neutrophil, Abs Manual: 1.7 10^3/mcL Low (06/03/24 05:55:00) Lymphocyte, Abs Manual: 0.9 10^3/mcL (06/03/24 05:55:00) Monocyte, Abs Manual: 0 10^3/mcL Low (06/03/24 05:55:00) Eosinophil, Abs Manual: 0.1 10^3/mcL (06/03/24 05:55:00) Basophil, Abs Manual: 0 10^3/mcL (06/03/24 05:55:00) Platelet Estimate: Adequate (06/03/24 05:55:00) Microcytosis: 1+ (06/03/24 05:55:00) Glucose Level: 99 mg/dL (06/03/24 05:55:00) Sodium Level: 145 mmol/L (06/03/24 05:55:00) Potassium Level: 4 mmol/L (06/03/24 05:55:00) Chloride: 109 mmol/L High (06/03/24 05:55:00) CO2: 33 mmol/L High (06/03/24 05:55:00) Electrolyte Balance: 3 mEq/L Low (06/03/24 05:55:00) BUN: 18 mg/dL (06/03/24 05:55:00) Creatinine Lvl (s): 1.1 mg/dL (06/03/24 05:55:00) BUN/Creatinine Ratio: 16 ratio (06/03/24 05:55:00) Calcium Lvl: 8.6 mg/dL (06/03/24 05:55:00) GFR Non-: 67 ml/min/1.73sqm (06/03/24 05:55:00) GFR : 81 ml/min/1.73sqm (06/03/24 05:55:00) TSH: 6.41 mcIU/mL High (06/03/24 05:00:00) Free T4: 1.17 ng/dL (06/03/24 05:00:00) Blood Glucose, Capillary: 145 mg/dL High (05/31/24 19:57:00) Blood Glucose Testing Reason: Routine (05/31/24 19:57:00) Assessment/Plan 1. Asthenia 2. Anemia 3. Pancytopenia 4. Dysphagia 5. Heart failure with normal ejection fraction 6. Morbid obesity 7. Sleep apnea 8. Arm edema 9. Acute DVT (deep venous thrombosis) Asthenia continue with PT and OT. Patient is progressing well. Anemia TANMAY and B12 deficiency. Continue oral B12 and oral iron. Hemoglobin stable at 9 on 06/03. Repeat CBC on 06/07/2024. Patient has complaints of constipation from iron supplementation. He does have as needed MiraLAX and Colace. 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 Per hair worker note on 05/04 there is plan for patient to undergo bone marrow biopsy. Dysphagia patient underwent MBS at [facility]. He was found to be retaining food in his esophagus. Recommendations for soft and bite sized diet. Recommendations for sip of fluid following every bite as wellas staying upright for 30 minutes after meals. Patient is asking again if his diet can be advanced.Patient would need to have another full evaluation before this could be done. Discussed with interdisciplinary team including dietitian who states that he is limited in his choices. He is asking for scrambled eggs. If patient would like another evaluation he would need to have another modified barium swallow on an outpatient basis. (Suspected) HFpEF Limited echocardiogram done on 05/18 showed technically difficult study. Mild concentric LVH. LVEF 70%. Trace MV regurgitation. AV not well-visualized. Left atrium was severely enlarged. Continue Lasix 40 mg daily. Morbid obesity there was mention of type 2 diabetes mellitus in patient's history however his last 2 hemoglobin A1c's were 5.4 (12/2023) and 5.6 (05/2024). Sleep apnea this is suspected per documentation from waste disposal plant operator and materials intern at [facility]. Patientwill need to undergo sleep study on an outpatient basis. Chronic pain lidocaine patches to his back. Acute DVT-Right arm edema, pain. Patient had a PICC line in this arm. Venous doppler done today andis positive for DVT Right brachial, right subclavian, right axillary vein. Start Apixaban 10mg BID x 7 days, then Apixiban 5mg BID. Given patients history of anemia, will monitor CBC more closely while on NOAC. This note will be forwarded to Dr. Toussaint, hematology. Code Status: Full Code Plan of care discussed with patient and . All questions answered. Patient verbalizes understanding is agreeable to plan of care. This dictation was performed using voice recognition software and may include grammatical and/or spelling errors. CPT: 75572 Time Spent 40 minutes Digitally Signed by MARQUIS SARAVIA on 06/05/2024 12:00 PM [facility]11-23-2024 Note Date of Service 06/03/24 Chief Complaint Asthenia Subjective 63-year-old male with past medical history significant for iron deficiency anemia, B12 deficiency, GLENN (not formally diagnosed), hypothyroidism, chronic pain, chronic pancytopenia (concern for MDS-planning for bone marrow biopsy, following with Dr. Toussaint, hematology), chronic edema, right foot drop. Patient originally presented to [facility] ED on 05/17/2024 increasing edema and dyspnea. Presentation suspicious for volume overload. Patient has a history of chronic anemia. Patient was seen by hematology on 05/08. There is concern for MDS and they are planning for bone marrow biopsy. He underwent 2 colonoscopies and 1 EGD by and has found no source of bleeding. On 05/13 patient received 2 PRBCs and 1 iron infusion. Patient admits that he is not always compliant with his Lasix due to feelingweak and frequent urination. Echocardiogram done 12/2023 showed LVEF of 65%. No mention of diastolic dysfunction though it was a technically limited study. No valvular disease. Left atria normal. He was diuresed and admitted. Patient was found to be in acute hypoxic, hypercapnic respiratory failure.Initially required BiPAP but was not showing any improvement and was subsequently intubated. This was thought to be secondary to pneumonia versus fluid overload. He was treated with prophylactic antibiotics and bronchodilators. He was having some frequent coughing and choking episodes. Patient's had a modified barium swallow on 05/26 with retention of putting in mid esophagus which was cleared with liquids. Speech therapy recommended mechanical soft textures and thin liquids. Small bites, smallsips. Recommendation for patient to alternate bite followed by sips. Recommendation for patient to be sitting upright for 30 minutes after oral intake and to have close supervision. He was evaluated by therapy services with recommendation for SNF And was subsequently admitted to [facility] TCU. Patient has been progressing with therapy services. On 06/02 he was able to ambulate 108 feet then 50 feet, CGA and following with wheelchair. Therapy reports that he is progressing with bed mobilities, transfers, endurance. Still requiring more assistance with OT. Patient has been using BiPAP at night due to concern for GLENN. CBC today shows hemoglobin stable at 9. WBC is 2.8. Patient's last weight was 158.2 kg. Admission weight was 163 kg. Objective Vitals and Measurements T: 36.6 C (Oral) HR: 80 (Apical) RR: 18 BP: 146/70 SpO2: 94% Intake and Output 7AM Yesterday to 7AM Today Intake and Output (Last 24 hours) Intake Oral Intake 600.00 Output Urinary Catheter Output: 400.00 Total Summary Total Intake 600.00 Total Output 400.00 Fluid Balance 200.00 Physical Exam GEN: Appears chronically ill CHEST: Normal S1 and S2. Rhythm is regular. Clear to auscultation, without rales, rhonchi, wheezing. ABD: Positive bowel sounds x 4 quads. Soft, nondistended, nontender. EXT: No significant deformity or joint abnormality. Peripheral pulses intact. NEURO: Sensation grossly intact SKIN: Skin color normal PSYCH: The mental examination revealed the patient was alert and oriented x 4 Weight Current Weight Dosing Weight: 158.2 kg (06/02/24) Current Weight: 165 kg (06/01/24) Dosing Weight: 163 kg (05/31/24) Medications Medications (20) Active Scheduled: (10) acetaminophen 500 mg Tablet 1,000 mg 2 tab(s), Oral, TID atorvastatin 10 mg tablet 40 mg 4 tab(s), Oral, qHS cyanocobalamin 500 mcg Tablet 1,000 mcg 2 tab(s), Oral, qDay docusate-senna (Senokot S) 50 mg-8.6 mg Tablet 2 tab(s), Oral, BID ferrous sulfate 325 mg Tablet 325 mg 1 tab(s), Oral, TID furosemide 40 mg tablet 40 mg 1 tab(s), Oral, qDay lidocaine patch REMOVAL 1 EA, Miscellaneous, q24h lidocaine topical 4% patch 1 patch(es), Transdermal, q24h metoprolol tartrate 25 mg tablet 12.5 mg 0.5 tab(s), Oral, BID pantoprazole 20 mg EC tablet 40 mg 2 tab(s), Oral, BIDAC Continuous: (0) PRN: (10) acetaminophen 325 mg Tablet 650 mg 2 tab(s), Oral, q4h acetaminophen 325 mg Tablet 650 mg 2 tab(s), Oral, q4h Al hydrox/Mg hydrox/simethicone 200-200-20 mg/5 mL Susp UD 15 mL, Oral, q4h albuterol - ipratropium 2.5 mg-0.5 mg/3 mL Inhal Silvina UD 3 mL, Inhalation, q4hRT docusate sodium 100 mg Capsule 100 mg 1 cap(s), Oral, BID guaifenesin 100 mg/5 mL Liquid SUGAR-FREE 120 mL 200 mg 10 mL, Oral, q4h melatonin 3 mg tablet 6 mg 2 tab(s), Oral, qHS menthol (Biofreeze) gel packet 1 kan, Topical, TID miconazole topical 2% Powder 1 kan, Topical, BID polyethylene glycol 3350 - UD packet 17 gram(s) 15 mL, Oral, BID Lab Results 06/03 05:55 WBC: 2.8 L Hgb: 9.0 L Hct: 28.2 L Platelet: 193 Glucose Level: 99 Sodium Level: 145 Potassium Level: 4.0 BUN: 18 Creatinine Lvl (s): 1.10 Assessment/Plan 1. Asthenia 2. Anemia 3. Pancytopenia 4. Heart failure with normal ejection fraction 5. Morbid obesity 6. Sleep apnea Asthenia continue with PT and OT. Patient is progressing well. Anemia TANMAY and B12 deficiency. Continue oral B12 and oral iron. Hemoglobin stable at 9 on 06/03. Patient has complaints of constipation from iron supplementation. He does have as needed MiraLAX and Colace. 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 There is plans for patient to undergo bone marrow biopsy. HFpEF Limited echocardiogram done on 05/18 showed technically difficult study. Mild concentric LVH. LVEF 70%. Trace MV regurgitation. AV not well-visualized. Left atrium was severely enlarged. Continue Lasix 40 mg daily. Morbid obesity there was mention of type 2 diabetes mellitus in patient's history however his last 2 hemoglobin A1c's were 5.4 (12/2023) and 5.6 (05/2024). Sleep apnea this is suspected per documentation from waste disposal plant operator and materials intern at [facility]. Patientwill need to undergo sleep study on an outpatient basis. Chronic pain lidocaine patches to his back. [id number] Time Spent 30 minutes Digitally Signed by MARQUIS SARAVIA on 06/03/2024 10:15 AM [facility]11-21-2024 Pastoral care Progress note Pastoral Care Note Entered On: 06/01/2024 10:04 EST Performed On: 06/01/2024 10:01 EST by Uriel Wheeler Pastoral Care Type of Pastoral Visit : Initial visit Spiritual Care Visit Initiated by : Flow Specialist Spiritual Care Reason for Visit : General Spiritual Assessment : Spiritual, not Nondenominational, Positive Image of God Spiritual Care Emotional Assessment : Sad, Incredulous, Thoughtful/Reflective, Pessimistic, Frustrated Spiritual Care Intervention : Active listening, Compassion/Empathy, Facilitate Life Review, Supportive presence, Explore Spiritual Needs, Explore Emotional Needs, Prayer with Patient/Family Spiritual Outcomes : Expresses Gratitude, Embraces Present Moment Spiritual Plan of Care : Follow-Up Visit Pastoral Care Comments : patient is very talkative and gives great details to his health and decline that has occurred over last months; pt has concern about getting strength back and having therapy work for him; pt has many questions about his health and his future; pt is not active in a [place]opez community but open to spiritual matters and support; pt would welcome more visits; lots of time to listen, affirm, comfort, and offer supportive prayer Pastoral Care Visit Length : 25 minute(s) Uriel Wheeler - 06/01/2024 10:01 EST Digitally Signed by Uriel Wheeler on 06/01/2024 10:01 AM [facility]11-20-2024 Note Date of Service 05/31/2024 Chief Complaint weakness History of Present Illness Patient is a 63-year-old male, who follows with Dr. Angelic Monsalve with a past medical history significant for hypothyroidism, morbid obesity, anemia, edema on lasix and suspected GLENN, presented to [facility] emergency department on 05/17 with the chief complaint of increasing shortnessof breath and lower extremity edema for several days. Patient had been having ongoing issues with anemia and have been given 2 units of PRBCs and iron two days prior to admission due to hemoglobin of5.4. On arrival to the ED, he was hypoxic with oxygen saturations in the 70's on room air. His BNP was elevated at 525. Patient was given IV Lasix in the ED but continued to become progressively morehypoxic. He was placed on Bipap but ultimately required intubation on 05/18. He was treated for pneumonia and diuresed while in the ICU and was eventually able to be extubated. Pediatric Oncologist felt that patient could have a component of sleep apnea as well as his obesity contributing to his overall breathing difficulties. Patient was on AVAPS nightly while admitted and did well with this. He did receive another 2 units of PRBCs early on in his admission and his hemoglobin stabilized. Patient had been previously worked up by Dr. Mason with upper and lower GI scopes with no obvious source of blood loss found. His blood counts had been stable for about 10 days while admitted. Patient will need to follow-up with Dr. Rain, hematology/oncology, as an outpatient. He was seen by PT and OT while admitted who recommended a skilled stay. Patient was felt to be stable for discharge today and transferred over via squad to [facility] transitional care unit for ongoing rehab. Patient was seen and evaluated while resting in bed shortly after arrival. He denies any pain currently. Nursing did a skin evaluation and noted a large drained blister on the heel of the right foot.New dressing applied. Physical exam unremarkable other than morbid obesity and hemosiderin stainingof bilateral lower extremities. Discussed plan of care with patient and he is agreeable with the same. All questions answered. Review of Systems Review of Systems: Reviewed in detail, including general health, HEENT, cardiovascular, respiratory, gastrointestinal, genitourinary, endocrine, musculoskeletal, neurologic, vascular, skin, and psychiatric. All are negative except for those listed in the History of Present Illness. Physical Exam Vitals and Measurements T: 37.1 C (Oral) HR: 81 (Monitored) BP: 161/75 SpO2: 95% HT: 195.6 cm WT: 163 kg BMI: 42.6 Weight Dosing Weight: 163 kg (05/31/24) General: No acute distress. Patient is alert, chronically ill-appearing. Skin: No rash. Skin is warm, dry and intact. HEENT: Head is normocephalic, atraumatic. Pupils are equal, round and reactive. Left eyelid droopy from previous surgery. Neck: Supple. No lymphadenopathy, thyromegaly. Lungs: Bilaterally clear but diminished without crepitation or wheeze. Unlabored. Heart: Heart is regular rhythm, S1, S2. No murmurs, gallops or rubs. Abdomen: Abdomen is soft, nontender, obese. Bowels sounds present in all quadrants. Extremities: No clubbing, cyanosis; 1+ BLE edema. Peripheral pulses palpable. No calf tenderness. Large round drained blister on right heel. Neurological: Patient is awake and alert to person, place and time. Following simple commands, moving all extremities. Lab Results No 36 Hour Lab Data Assessment/Plan 1. Asthenia Consult placed to PT and OT. director of food and nutrition services following for discharge planning. 2. Heart failure with normal ejection fraction Chronic, unspecified. EF 65-70% on recent echo. Continue furosemide and metoprolol at current doses. 3. Anemia Chronic, unknown etiology. Patient has had both upper and lower GI scopes without any bleed noted. He is to follow-up with Dr. Rain, hematology, as an outpatient. Transfused 2 units of PRBCs and IV iron while admitted. H&H today 8.4/29.2. Low iron 14 and ferritin 7 when checked on 05/08. Continue iron supplement PO TID. Repeat CBC on 06/03. 4. Hypothyroidism Chronic. Continue current dose of levothyroxine. 5. Sleep apnea New onset. Continue Bipap at night. 6. Morbid obesity Chronic. BMI 42.6. Complicates all aspects of care. Encouraged lifestyle modification. DVT prophylaxis with SCDs. Code status: Full Code. Labs, diagnostic test and progress notes reviewed as noted in HPI. Plan of care discussed with patient. All questions answered. Patient verbalizes understanding and is agreeable with plan of care. This case was discussed with collaborating physician, Dr. Ross Yang. 58 minutes spent reviewing past diagnostic tests, reviewing lab results, vital sign trends, medicalhistory, reviewing medications and ordering home medications, reviewed 14 days of documentation from stay at [facility], examining patient, discussed plan of care with care team, gaetano morris with physician, and documenting in chart. CPT#65657 Procedure/Surgical History Knee Back problem Medications Home Medications (8) Active atorvastatin 20 mg oral tablet 40 mg = 2 tab(s), Oral, qHS cyanocobalamin 500 mcg oral tablet 1,000 mcg = 2 tab(s), Oral, qDay FeroSul 325 mg (65 mg elemental iron) oral tablet 325 mg = 1 tab(s), Oral, TID fluorouracil 5% topical cream 1 kan, Topical, BID furosemide 40 mg oral tablet 40 mg = 1 tab(s), Oral, qDay metoprolol succinate 25 mg oral TABLET extended release 12.5 mg = 0.5 tab(s), Oral, BID pantoprazole 40 mg oral enteric coated tablet 40 mg = 1 tab(s), Oral, BIDAC Senna Plus 50 mg-8.6 mg oral tablet 2 tab(s), Oral, BID Allergies Latex Social History Alcohol Use: Never., 05/31/2024 Home/Environment Living situation: Home/Independent. Domestic Concerns: None. Lives In: Multilevel home. Current Home Treatments None., 05/31/2024 Substance Abuse Use: Never., 05/31/2024 Tobacco Nicotine Use: Never (less than 100 in lifetime)., 05/31/2024 Immunizations SARS-CoV-2 mRNA (tozinameran) vaccine: 30 unknown unit (10/11/20) SARS-CoV-2 mRNA (tozinameran) vaccine: 30 unknown unit (09/20/20) tetanus/diphth/pertuss (Tdap) adult/adol: 0 unknown unit (07/23/15) zoster vaccine, inactivated: 0 unknown unit (04/16/20) Code Status Code Status - Ordered -- 05/31/24 12:37:00 EST, Full Code, Constant Order Digitally Signed by TAI GOODWIN on 05/31/2024 03:07 PM Digitally Signed by TAI GOODWIN on 05/31/2024 03:10 PM Digitally Signed by TAI GOODWIN on 05/31/2024 03:13 PM [facility]11-20-2024 Evaluation + Plan noteExtracted from: Title:History and Physical Author:TAI GOODWIN Date:05/31/24 1. Asthenia Consult placed to PT and OT. director of food and nutrition services following for discharge planning. 2. Heart failure with normal ejection fraction Chronic, unspecified. EF 65-70% on recent echo. Continue furosemide and metoprolol at current doses. 3. Anemia Chronic, unknown etiology. Patient has had both upper and lower GI scopes without any bleed noted. He is to follow-up with Dr. Rain, hematology, as an outpatient. Transfused 2 units of PRBCs and IV iron while admitted. H&H today 8.11/07.2. Low iron 14 and ferritin 7 when checked on 05/08. Continue iron supplement PO TID. Repeat CBC on 06/03. 4. Hypothyroidism Chronic. Continue current dose of levothyroxine. 5. Sleep apnea New onset. Continue Bipap at night. 6. Morbid obesity Chronic. BMI 42.6. Complicates all aspects of care. Encouraged lifestyle modification. DVT prophylaxis with SCDs. Code status: Full Code. Labs, diagnostic test and progress notes reviewed as noted in HPI. Plan of care discussed with patient. All questions answered. Patient verbalizes understanding and is agreeable with plan of care. This case was discussed with collaborating physician, Dr. Ross Yang. 58 minutes spent reviewing past diagnostic tests, reviewing lab results, vital sign trends, medical history, reviewing medications and ordering home medications, reviewed 14 days of documentation from stay at [facility], examining patient, discussed plan of care with care team, collaborating with physician, and documenting in chart. CPT#09581 [facility] 11-20-2024 [facility]11-08-2024 NoteAcceptable Specimen? Acceptable Specimen(Evaluation not needed) Gram Stain 4+ White Blood Cells Rare Gram positive cocci Rare Gram positive rods No Epithelial cellsMarion HospitalComment on above:Performed By: #### M100.2400, M100.1999 ####[facility] [id number] [place], [phone] NoteHNO ID: [id number] Author: ANCELMO WILLETT RN Service: Nursing Author Type: Registered Nurse Type: Progress Notes Filed: 01/08/2024 06:24 Note Text: Informed patient of CBC ordered at this time. Patient refused. Pt will be discharged today and will be following up with hematology. Will continue to follow plan of [facility]06-26-2024 NoteHNO ID: [id number] Author: RAVEN THAKKAR APRN.CNP Service: Hospital Medicine Author Type: Nurse Practitioner Type: Plan of Care Filed: 01/05/2024 14:33 Note Text: DEPARTMENT OF HOSPITAL MEDICINE PLAN OF CARE NOTE SERVICE DATE: January 05, 2024 SERVICE TIME: 2:32 PM Hospital Medicine/Primary Attending: Department of Hospital Medicine NIGHT AND WEEKEND COVERAGE: [facility] Coverage PLAN OF CARE - prelim urine cx + >=100,000 CFU/ml Enterococcus faecalis - will stop Keflex and start Macrobid BID x5d - continue to follow sensitivity of urine cx SIGNATURE: Raven Thakkar APRN.CNP PATIENT NAME: Khoa Connors Jr. DATE: January 05, 2024 TIME: 2:32 [facility]06-25-2024 NoteHNO ID: [id number] Author: RAVEN THAKKAR APRN.CNP Service: Hospital Medicine Author Type: Nurse Practitioner Type: Progress Notes Filed: 01/04/2024 16:57 Note Text: DEPARTMENT OF HOSPITAL MEDICINE PROGRESS NOTE SERVICE DATE: 01/04/2024 SERVICE TIME: 11:31 AM Hospital Medicine/Primary Attending: Nina Keene,* NIGHT AND WEEKEND COVERAGE: [facility] Medicine KAN 7a-7p Page [id number] 7p-7a Subjective INTERVAL HPI: - patient sitting on side of bed, reports leg swelling is slowly improving - mccarthy removed 01/03/2024 with good UO since removal - on Empiric ATB for UTI; cx pending - reports decrease in dysuria - continues to have right leg numbness with foot drop 2/2 chronic issue - no back pain - remains on 2L oxygen; attempted to wean without success as his pulse ox dropped to 86% on 1.5L - unable to tolerate BiPAP at [facility] requesting to not wear it as it bothers his eustachian tube in his right ear - no constipation, ABD pain - reports he has been taking his home B12 sublingual medication once daily per home regimen; has q6w B12 IM inj (unsure when next dose is due) Current Facility-Administered Medications Medication Dose Route Frequency acetaminophen 500 mg tab(s) (TYLENOL) 500 mg ORAL q 8 H calcium carbonate 500 mg chewable tab(s) (TUMS) 500 mg ORAL BID PRN furosemide 40 mg tab(s) (LASIX) 40 mg ORAL BID 9a/5p potassium chloride ER 20 mEq tab(s) (KLOR-CON) 20 mEq ORAL DAILY levothyroxine 75 mcg tab(s) (SYNTHROID) 75 mcg ORAL BEFORE BREAKFAST DAILY aluminum-magnesium hydroxide-simethicone 200-200-20 mg/5 mL 30 mL 30 mL ORAL DAILY PRN polyethylene glycol 3350 17 g packet 17 g ORAL DAILY PRN ondansetron orally disintegrating 4 mg tab(s) (ZOFRAN ODT) 4 mg ORAL q 6 H PRN melatonin 3 mg tab(s) 3 mg ORAL DAILY (8 PM) phenazopyridine 200 mg tab(s) (PYRIDIUM) 200 mg ORAL TID after MEALS miconazole 2 % 1 application topical powder 1 application TOPICAL BID cephALEXin 500 mg cap(s) (KEFLEX) 500 mg ORAL q 8 H MEDICATION, NON-DATABASE ORAL DAILY Objective PHYSICAL EXAM: BP 138/61 Pulse 87 Temp (Src) 98.4 (Oral) Resp 16 Ht 6' 5 (1.96m) Wt 371 lb 4.1 oz (168.4kg) SpO2 93% BMI 44.02 kg/(m2). O2 Therapy: Nasal Cannula, Liters: 2, %FIO2: (Pt had AVAPS on for only 10 minutes. Refused for the rest of the night.) Physical Exam Performed GENERAL: Alert, no distress, cooperative SKIN: Skin color, texture, turgor normal. No rashes. HEAD/SINUSES: No significant findings, NC/AT LUNGS: Lungs clear in bilateral upper lobes, diminished in bilateral lower lobes with faint crackles, wearing 2L supplemental O2. No use of accessory muscles and able to speak in full sentences. CARDIAC: No murmur, RRR ABDOMEN: Abdomen soft, non-tender, BS normal EXTREMITIES: +2 pitting edema BLE with chronic vascular skin discoloration BLE. Good capillary refill. NEURO: Grossly normal cognition, decreased sensation to RLE (chronic) PULSES: 2+ radial, 2+ dorsalis pedis Lines, Drains, and Airways None Patient does not currently have any lines, drains or airways. DATA: Diagnostic tests reviewed for today's visit: Most recent labs Assessment/Plan Problem List Aftercare (POA: Yes) Compression fracture of L2 vertebra with routine healing (POA: Yes) Bilateral lower extremity edema (POA: Yes) Lymphedema (POA: Yes) Acute respiratory failure with hypoxia (HCC) (POA: Yes) Type 2 diabetes mellitus, without long-term current use of insulin (HCC) (POA: Yes) Essential hypertension (POA: Yes) Iron deficiency anemia (POA: Yes) Morbid obesity with BMI of 40.0-44.9, adult (HCC) (POA: Yes) Urinary retention (POA: Yes) UTI (urinary tract infection) (POA: Yes) Hypothyroidism (POA: Yes) HOSPITAL COURSE: Khoa Connors is a 63 year old male with PMH significant for morbid obesity, hypothyroidism, compression fractures, chronic iron deficiency anemia, chronic lymphedema, and physical debility, presented to [facility] from [facility] for rehabilitation following hospitalization. The patient was admitted to [facility] for fall and acute back pain. He received IV dilaudid for the pain and then subsequently went into respiratory failure requiring ICU and NIPPV. He was evaluated by pulmonology who felt respiratory failure was 2/2 pain medication, likely GLENN/OHS and possibly component of FVO. He as weaned from NIPPV to NC and diuresed with IV lasix. Will need formal work up for GLENN as outpatient for home PAP therapy to be arranged. IV lasix was transitioned to Lasix 40mg BID upon discharge. He was found to have L2 compression fracture which was thought to be chronic, this was managed conservatively with tylenol and PT/OT. Hemoglobin varied from 7-8 range during hospitalization, ferritin was very low at 11. He received IV iron while in the hospital and will need to follow up with Dr. Drake (Heme/Onc) as outpatient. The patient was evaluated by PT/OT who addis (more content not included)...[facility]06-24-2024 NoteHNO ID: [id number] Author: RAVEN THAKKAR APRN.HUSSAIN Service: Hospital Medicine Author Type: Nurse Practitioner Type: Plan of Care Filed: 01/03/2024 15:55 Note Text: DEPARTMENT OF HOSPITAL MEDICINE PLAN OF CARE NOTE SERVICE DATE: January 03, 2024 SERVICE TIME: 1:00 PM Hospital Medicine/Primary Attending: Department of [facility] Medicine NIGHT AND WEEKEND COVERAGE: [facility] Medicine Coverage PLAN OF CARE - patient reported to nursing this morning he was experiencing burning around catheter site. - TID Pyridium started x2 days - instructed nursing to ensure catheter is secure when ambulating. - UA obtained which was +LE, WBC, bacteria. - started on PO Keflex Empirically and await cx results. - DC mccarthy for voiding trial as patient was ambulating down perez with therapy. - bladder scan at 2300; if greater than 400cc, straight cath x1. SIGNATURE: Raven Thakkar APRN.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 PATIENT NAME: Khoa Connors Jr. DATE: January 03, 2024 TIME: 3:50 [facility]06-24-2024 NoteHNO ID: [id number] Author: SHEMAR STEVEN LPN Service: Nursing Author Type: LICENSED NURSE Type: Nursing Progress Note Filed: 01/03/2024 13:59 Note Text: Cath secure changed twice due to ongoing complaints. Improved comfort with elastic leg strap.[facility]06-24-2024 NoteHNO ID: [id number] Author: KENIA RANGEL RN Service: Care Management Author Type: Registered Nurse Type: Care Mgt Initial Assessment Filed: 01/03/2024 13:47 Note Text: CARE MANAGEMENT: ASSESSMENT AND DISCHARGE PLAN SERVICE DATE: January 03, 2024 SERVICE TIME: 1:42 PM PCP: Angelic Monsalve MD Primary Contact: Extended Emergency Contact Information Primary Emergency Contact: Danielle Connors Address: [address] [place] [address] Mobile Relation: Spouse Admission Status: Inpatient Swing Insurance Provider: [facility] [place] [employer] [employer] [employer] Discharge Planning requested by: Potential Transition Plans Home Care;Durable Medical Equipment Advance Directives Current Advance Directive: None Boom Cat Operator Attempted to Assist with AD Completion: Yes Action: Education Provided Current Living Arrangements and Support Lives with: Spouse/significant other Type of Residence: Private Residence (House) Does the patient have to climb stairs at home?: stairs within the home Support: Spouse/significant other How do you manage to accomplish the following: Independent: Ambulation;Bathe/Shower;Meals/Meal Prep;Going to the bathroom Needs Assistance: Dress;Medication Management;Transportation to appointments/community Current Services/Equipment Current Post-Acute Service(s): None Discharge Planning Patient Goal(s): Ambulate without stopping, Increase strength, General wellness, Better management of chronic pain [place] of Choice Explained: Are you interested in bedside delivery of your medications? No Discharge Planning Participant(s): Patient;Spouse/significant other Patient/Family Comments: Caregiver Assessment: Caregiver is ready, willing and able to meet the patient's needs as recommended by the inter-professional team: Yes Name of Caregiver: Danielle ellington Transport at Discharge: Needs Prior to Discharge: Needs Prior to Discharge: To Be Determined Post-Acute Discharge Plan: Met with pt at bedside.Pt awake and answers questions appropriately. Sitting on eob, no c/o currently. Pt lives with his in multi level home. He was admitted to [facility] with c/o sob, increased ble edema, weakness. He is currently on 2.5lnc- does not use oxygen at home. His pcp is Dr Angelic Monsalve and he has rx coverage. He plans to return home- he has 14 steps to b/b but making arrangements to move his bed to first floor. He stated his can assist him at home. He is anxious to return home and is agreeable to [facility]. Pt agreeable for this CM to speak with his . Spoke with Danielle via phone updated on labs, UA- culture pending. is able to assist pt. She voiced concern re: his hgb continuing to be low (hgb 7.8). Reassured we would monitor vs, and for signs of bleeding. also updated on next insurance review due 01/05 and pts progress with therapy. agreeable to care conference prior to discharge home. Will follow SIGNATURE: Kenia Rangel RN PATIENT NAME: Khoa Connors Jr. DATE: January 03, 2024 TIME: 1:42 PM CONTACT #: [phone] HNO ID: [id number] Author: ANCELMO WILLETT RN Service: Nursing Author Type: Registered Nurse Type: Progress Notes Filed: 01/03/2024 01:37 Note Text: Nurse into patients room. Cont pulse ox monitor bleeping. Nurse to assess patient. Patient took off CPAP mask and continuous POX. Patient states What's going on? What just happened? Pt did not know why he took off equipment. Asks nurse what do you want me to do now? Nurse proceeds to ask delirium questions. See flowsheets. Patient answered appropriately. Pt states name, , location and time appropriately. Respiratory paged to room to assist in putting mask and Cont pulse ox back on patient. O2 currently at 95%. Assisted patient to get comfortable in bed. Patient currently resting comfortably. Will continue plan of care.[facility]06-23-2024 NoteHNO ID: [id number] Author: DAISY QUINN RN Service: Nursing Author Type: Registered Nurse Type: Nursing Progress Note Filed: 01/02/2024 18:33 Note Text: Patient ambulated in hallway accompanied by from shower room to patient's room.[facility]06-22-2024 NoteHNO ID: [id number] Author: DAISY QUINN RN Service: Nursing Author Type: Registered Nurse Type: Nursing Progress Note Filed: 01/01/2024 14:06 Note Text: brought in patient's home (iron) med. Order received to use home med.[facility]06-21-2024 NoteHNO ID: [id number] Author: PHAN LÓPEZ PA-C Service: Hospital Medicine Author Type: Physician Water Maintenance Supervisor Type: Plan of Care Filed: 12/31/2023 17:01 Note Text: Brief Plan of Care Note Patient arriving around 7PM from [facility] 63 yo Male with PMH morbid obesity, hypothyroidism initially presented following a fall with concern of new L2 compression fracture. He was admitted to [facility] with subsequent respiratory decompensation and ICU admission. Suspected it was due to GLENN and possibly obesity hypoventilation syndrome, improved with PAP therapy, did not require intubation. Currently Requires 2 to 3 L supplemental O2 at rest on discharge. Admitted to [facility] for therapy and aftercare. # Acute respiratory failure - see above - oxygen management, wean as able - BiPAP at night for suspected GLENN - Needs Sleep Study on Discharge #LE edema/Lymphedema - , no CHF per ECHO (EF65%, Normal LV size and function, no abnormalities, on Lasix 40 mg BID at home for this, will continue - Has Mccarthy due to high urine output from the lasix and poor mobility. Will need voiding trial and consider D/C #Chronic Fe Def anemia with low ferritin Hgb ranging 7-8 during hospitalization. Received IV iron on 12/29 and 12/30. Needs CBC in 5-7 days. Needs outpatient FU with Dr. Drake. #L2 compression fracture felt to be chronic based on MRI results, minimal pain since admission, continue scheduled Tylenol, cautious with opioids given respiratory depression as above #Thrombocytopenia - plt 116-132 , similar to previously, chronic, follow up outpatient with Dr. Drake #hypothyroidism - TSH mildly elevated, continue synthroid #Morbid obesity Phan López PA-C 5:00 PM [facility] Progress note Author En Banks [facility] September 03, 2023 10:59am Note Date/Time September 03, 2023 10:58am [facility] Medical Records Department [address] [place] [id number] Progress Note - Hospitalist 09/03/23 1054 MR#: [id number] Acct: [id number] Name: KHOA CONNORS Jr. Rep #:[id number] : 1960 62 From: En Parmar PCP: Dr. Angelic Monsalve MD Status:ADM IN Location: MS3 [id number] Reason for Visit Reason for Visit: Diagnoses Morbid (severe) obesity due to excess calories (08/25/23) Other acute postprocedural pain (08/25/23) Venous insufficiency (chronic) (peripheral) (08/25/23) Unilateral primary osteoarthritis, left knee (08/25/23) Hypoxemia (08/25/23) Presence of left artificial knee joint (08/25/23) Objective Data Objective Data Vital Signs: Vital Signs Temp Pulse Resp BP Pulse Ox O2 Del Method O2 Flow Rate 98.0 F 92 17 132/77 H 92 Room Air 3 09/03/23 08:00 09/03/23 08:00 09/03/23 08:00 09/03/23 08:00 09/03/23 08:00 09/03/23 08:00 08/29/23 10:00 Oxygen Flow Rate (L/min) 3 Oxygen Delivery Method Room Air Weight: 352 lb 11.834 oz Body Mass Index (BMI) 41.8 Intake & Output: Intake and Output for Last 24 Hours 09/01/23 09/02/23 09/03/23 23:59 23:59 23:59 Intake Total 1950 / 2650 2750 / 2750 400 / 400 Output Total 1430 / 1430 200 / 200 Balance 520 / 1220 2750 / 2550 200 / 200 Lab / Micro Data 09/01/23 07:18 09/01/23 07:18 Physical Exam Narrative Seen and examined Patient had good bowel movement. Ready to be discharged today. Hospital bed will be set up today at his own. Right knee dressing was changed. Physical exam General: Alert, Oriented x3, Cooperative, morbid obesity BMI 41.8 kg/m? HEENT: Atraumatic, PERRLA, EOMI, Normocephalic Oral: No Gingival or Mucosal Lesions/ Ulcerations Neck: Supple, No JVD, Negative Carotid Bruits Chest wall/Lungs: Air entry diminished in bilateral lung bases. No crepitation/rhonchi Cardiovascular: Regular rate, Regular Rhythm, Normal S1, Normal S2, No M/G/R Abdomen: Bowel Sounds Present, Soft, Non Tender, Non-Distended : No dysuria. No renal angle tenderness. No suprapubic tenderness. Extremities: No edema, Capillary Refill Less than 3 Seconds Skin: Left knee status post TKR, surgical dressing was changed by Dr. Luz. Kamas intact. No signs of infection. Musculoskeletal: Left knee tender around operative region. No Tenderness to Palpation of other joints or Extremities Neurological: Cranial nerves II-XII grossly intact, DTR 2+/4. No acute focal neurological deficit. Psych/Mental Status: Normal Affect, Appropriate. Assessment & Plan Assessment/Plan (1) Status post total left knee replacement: PLAN: Plan 1. Type 2 diabetes-patient is currently diet controlled and is not on any medications. Glucose is 125 in BMP. 08/31: Glucose is controlled. 09/01: Glucose in Accu-Chek 164. In BMP 157. In acceptable range. 09/02: Glucose is reasonably controlled 164 in BMP. 09/03: Glucose is controlled. 2 Morbid obesity-complicates care, medical course, recovery, and prognosis 3 osteoarthritis of the left knee-Patient had left knee minimally invasive robotic assisted total knee replacement on 08/25/2023. Continue PT and OT. Patient has difficulty in moving around but was able to walk outside in the hallway and in the rehab room. Plan for rehab discharge. 08/31: Patient is moving bowels. Still has significant pain. 09/01: Patient has mild bruising around knee but that is expected. Patient was evaluated by Dr. Luz. Plan for discharge to rehab, [employer] working on it. 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 Possible discharge tomorrow with hospital bed and DME equipments set up at home. 09/03: Dressing was changed. Kamas intact. No acute signs of infection or discharge. Follow-up with [facility] Dr. Luz. Expected discharge today. 4 hypoxia-secondary to atelectasis/morbid obesity suspected obstructive sleep apnea: As per the 's, he has restless sleep with snoring. Sometimes he doesnot breathe for 10 to 15 seconds and then wakes up with loud snoring with inspiration. Then he falls to sleep. Advised follow-up with PCP for outpatientsleep study and CPAP. Patient was educated about that. Continue incentive spirometry. 5. Morbid obesity: BMI 41.8 kg/m?. Weight loss counseling done. Beef Lugger consult. 6. JOSE RAUL, prerenal: Patient was admitted with creatinine 1.5, went up 1.9 and then came back 1.25. Seems mainly due to fluid shift and medications. JOSE RAUL resolved 09/01: Creatinine 1.12. Improvement in creatinine. Hospitalist team will sign off. Expected discharge today. Rest as mentioned above. Charges/Coding Visit Charges Inpatient E&M: 37881 Subs Hosp L2 09/03/23 1059 <Electronically signed by En Banks MD> Cosigner Signature (if applicable): CC: ~ Signed [facility] Work Phone: 1(404) 745-861502-22-2024 Consult note Author Abiodun Beach [facility] September 02, 2023 1:26pm Note Date/Time September 02, 2023 1:26pm [facility] Medical Records Department [address] [place] [address] Counseling Note - Pharmacy 09/02/23 1324 MR#: [id number] Acct: [id number] Name: KHOA CONNORS JrSkyler Rep #:[id number] : 1960 62 From: Abiodun Beach PCP: Dr. Angelic Monsalve MD Status:ADM IN Y Location: [facility] [id number] Pharmacy [facility] Service has performed discharge medication reconciliation and counseling for this patient. The patient's discharge medication list was reviewed for discrepancies and discrepancies were resolved. The patient was counseled on the following discharge medications and changes in medications for homegoing were reviewed. The Reason for Use, instructions for use, and potential side effects were reviewed for all new medications. The patient's questions regarding all of their medications were answered. 1. Acetaminophen 1000 mg PO Q8H 2. Aspirin 81 mg PO BID 3. Calcium carbonate 500 mg PO Q6H PRN dyspepsia 4. Doxycycline 100 mg PO BID x 7 days 5. Famotidine 20 mg PO daily 6. Oxycodone 5-10 mg PO Q4H PRN pain 7. Polyethylene glycol 17 grams PO BID 8. Senna/docusate 2 tabs PO BID The patient was able to verbally demonstrate an understanding of their dischargemedications. The patient was counselled on new medications by pharmacy services representative Armando. Medications at Discharge Home Medications ferrous sulfate 325 mg (65 mg iron) tablet (Feosol) 650 mg PO DAILY ANEMIA 06/16/23 cholecalciferol (vitamin D3) 25 mcg (1,000 unit) capsule (Vitamin D3) 25 mcg PO DAILY SUPPLEMENT 08/18/23 folic acid 1 mg tablet 1 mg PO DAILY SUPPLEMENT 08/18/23 acetaminophen 500 mg tablet 1,000 mg (2 x 500 mg) PO Q8 #0 tabs 09/02/23 aspirin 81 mg chewable tablet 81 mg PO BIDCM #0 tabs 09/02/23 calcium carbonate 200 mg calcium (500 mg) chewable tablet 1,000 mg (5 x 200 mg calcium (500 mg)) PO Q6H PRN PRN DYSPEPSIA #0 tabs 09/02/23 doxycycline monohydrate 100 mg capsule 100 mg PO BID 7 days #14 caps 09/02/23 famotidine 20 mg tablet 20 mg PO DAILY 30 days #30 tabs 09/02/23 oxycodone 5 mg tablet 5 - 10 mg (1 - 2 x 5 mg) PO Q4H PRN PRN Pain Score 4-10 5 days #42 tabs 09/02/23 polyethylene glycol 3350 17 gram oral powder packet 17 g PO BID #0 ea 09/02/23 sennosides 8.6 mg-docusate sodium 50 mg tablet (Stool Softener-Stimulant Laxative) 2 tab PO BID 7 days #28 tabs 09/02/23 09/02/23 1326 <Electronically signed by Abiodun birch> Date _ Abiodun Payne Signature (if applicable): Date CC: ~ Signed [facility] Work Phone: 1(299) 380-729502-22-2024 Progress note Author Daryl Luz [facility] September 02, 2023 1:25pm Note Date/Time September 02, 2023 1:13pm [facility] Medical Records Department [address] [place] [address] Progress Note - Orthopedic 09/02/23 1311 MR#: [id number] Acct: [id number] Name: KHOA CONNORS Jr. Rep #:[id number] : 1960 62 From: Daryl Parmar PCP: Dr. Angelic Monsalve MD Status:ADM IN Location: [facility] [id number] Objective Data Objective Data Vital Signs: Vital Signs Temp Pulse Resp BP Pulse Ox O2 Del Method O2 Flow Rate 98.2 F 89 18 155/81 H 97 Room Air 3 09/02/23 09:00 09/02/23 09:00 09/02/23 09:00 09/02/23 09:00 09/02/23 09:00 09/02/23 10:00 08/29/23 10:00 Oxygen Flow Rate (L/min) 3 Oxygen Delivery Method Room Air Weight: 352 lb 11.834 oz Body Mass Index (BMI) 41.8 Intake & Output: Intake and Output for Last 24 Hours 08/31/23 09/01/23 09/02/23 23:59 23:59 23:59 Intake Total 1950 / 2650 1950 / 1950 Output Total 400 / 400 1430 / 1430 Balance -400 / -400 520 / 1220 1950 / 1950 Lab / Micro Data 09/01/23 07:18 09/01/23 07:18 Assessment & Plan Assessment/Plan (1) Status post total left knee replacement: PLAN: 1. S/P left total knee arthroplasty POD #8 2. Continue Pain Medications: Tylenol, oxycodone. 3. DVT Prophylaxis: Take 81 mg aspirin twice daily for 4 weeks postoperatively for DVT prophylaxis. Patient denies past history of DVT or pulmonary embolism 4. PT/OT: Weightbearing as tolerated with walker. Appreciate recommendations from physical therapy, patient seems to be progressing appropriately consideringright lower extremity deficits. There are concerns with patient's ability to recover as he has chronic neurologic deficit on the right lower extremity with foot drop. We have now obtained Worker's Compensation approval and C9 for home health care with [facility] home health services. Patient is awaiting delivery of his hospital bed and bedside commode. Once this is completed patient be planned for discharge. Delivery is supposed to occur tomorrow. Currently, patient is unable to access the bathroom safely requires 3in 1 commode at home in order to be safely discharged home and allow for appropriate hygiene. 5. Continue postoperative medical management per medicine. Appreciate medical care patient's hypoxia appears to be resolved at this time. Patient encouraged to follow-up with PCP for sleep apnea 6. Currently on doxycycline for 2 weeks postoperatively due to elevated BMI greater than 40.0. I discussed with the patient potential side effects of doxycycline including sensitivity to the sunlight and increased risk of skin burn. Recommend patient take appropriate precautions. Also recommend patient to take probiotic while on the antibiotic. Patient voiced understanding agreement. 7. Hypoxia: Significantly improved, on room air today 8. Dressing: Dressing removed today. Incision is clean dry and intact while heis in house keep incision covered with dry dressing. Okay to shower, do not scrub incision may pat dry. 9. Disposition: C9 currently approved for [facility] home health services. Patient also has been bedside commode and hospital bed be delivered to his home which will not occur till tomorrow. Once the delivery is complete plan is for patient to be discharged tomorrow. I have reviewed the [place] Automated Rx Reporting System (OARRS) report for this patient for refill pattern and other prescriber involvement as part of the appropriate surveillance for the provision of acute and chronic controlled medications. The report was requested and reviewed on the date of this entry and was considered in the prescribing process. This dictation was created using voice recognition software. Phonetic and/or grammatical errors may exist. (2) Chronic venous insufficiency: PLAN: Can affect wound healing and outcome. Will monitor, medical consultation (3) Obesity, morbid: PLAN: Can affect postoperative outcome. Medical consultation placed (4) Hypoxia: PLAN: Discussed with medicine team will begin hypoxia workup today. 09/02/23 1324 <Electronically signed by Daryl Luz MD> Kerry Signature (if applicable): CC: ~ Signed ADDENDUM by Dr. Daryl Luz MD on 09/02/23 at 1325 Addendum Subjective: Patient doing well. Awaiting completion of C9 and delivery of home health devices. Medically stable Exam: Left lower extremity: Incision clean dry and intact. Motor is intact dorsiflexion, EHL and plantar flexion. Sensation is intact to light touch saphenous, kyle,l superficial peroneal, deep peroneal and tibial distributions. Calves are soft and supple. 09/02/23 1325<Electronically signed by Daryl Luz MD> Cosigner Signature (if applicable): cc: ~* Signed [facility] Work Phone: 1(650) 810-130902-22-2024 Progress note Author En Banks [facility] September 02, 2023 10:28am Note Date/Time September 02, 2023 10:28am [facility] Medical Records Department [address] [place] [address] Progress Note - Hospitalist 09/02/23 1025 MR#: [id number] Acct: [id number] Name: KHOA CONNORS Jr. Rep #:[id number] : 1960 62 From: En Parmar PCP: Dr. Angelic Monsalve MD Status:ADM IN Location: [place] [id number] Reason for Visit Reason for Visit: Diagnoses Morbid (severe) obesity due to excess calories (08/25/23) Venous insufficiency (chronic) (peripheral) (08/25/23) Unilateral primary osteoarthritis, left knee (08/25/23) Hypoxemia (08/25/23) Presence of left artificial knee joint (08/25/23) Objective Data Objective Data Vital Signs: Vital Signs Temp Pulse Resp BP Pulse Ox O2 Del Method O2 Flow Rate 98.2 F 89 18 155/81 H 97 Room Air 3 09/02/23 09:00 09/02/23 09:00 09/02/23 09:00 09/02/23 09:00 09/02/23 09:00 09/02/23 09:00 08/29/23 10:00 Oxygen Flow Rate (L/min) 3 Oxygen Delivery Method Room Air Weight: 352 lb 11.834 oz Body Mass Index (BMI) 41.8 Intake & Output: Intake and Output for Last 24 Hours 08/31/23 09/01/23 09/02/23 23:59 23:59 23:59 Intake Total 1950 / 2650 1100 / 1100 Output Total 400 / 400 1430 / 1430 Balance -400 / -400 520 / 1220 1100 / 1100 Lab / Micro Data 09/01/23 07:18 09/01/23 07:18 Physical Exam Narrative Seen and examined Patient in the bathroom. He states he is going to have bowel movement. No acute change. Patient has pain and difficulty in a standing up or moving but isdoing better. Mild bruise around the operated knee. No active bleeding. General: Alert, Oriented x3, Cooperative, morbid obesity BMI 41.8 kg/m? HEENT: Atraumatic, PERRLA, EOMI, Normocephalic Oral: No Gingival or Mucosal Lesions/ Ulcerations Neck: Supple, No JVD, Negative Carotid Bruits Chest wall/Lungs: Air entry diminished in bilateral lung bases. No crepitation/rhonchi Cardiovascular: Regular rate, Regular Rhythm, Normal S1, Normal S2, No M/G/R Abdomen: Bowel Sounds Present, Soft, Non Tender, Non-Distended : No dysuria. No renal angle tenderness. No suprapubic tenderness. Extremities: No edema, Capillary Refill Less than 3 Seconds Skin: Left knee status post TKR, surgical dressing is dry. Musculoskeletal: Left knee tender around operative region. No Tenderness to Palpation of other joints or Extremities Neurological: Cranial nerves II-XII grossly intact, DTR 2+/4. No acute focal neurological deficit. Psych/Mental Status: Normal Affect, Appropriate. Assessment & Plan Assessment/Plan (1) Status post total left knee replacement: PLAN: Plan 1. Type 2 diabetes-patient is currently diet controlled and is not on any medications. Glucose is 125 in BMP. 08/31: Glucose is controlled. 09/01: Glucose in Accu-Chek 164. In BMP 157. In acceptable range. 09/02: Glucose is reasonably controlled 164 in BMP. 2 Morbid obesity-complicates care, medical course, recovery, and prognosis 3 osteoarthritis of the left knee-Patient had left knee minimally invasive robotic assisted total knee replacement on 08/25/2023. Continue PT and OT. Patient has difficulty in moving around but was able to walk outside in the hallway and in the rehab room. Plan for rehab discharge. 08/31: Patient is moving bowels. Still has significant pain. 09/01: Patient has mild bruising around knee but that is expected. Patient was evaluated by Dr. Luz. Plan for discharge to rehab, [employer] working on it. 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 Possible discharge tomorrow with hospital bed and DME equipments set up at home. 4 hypoxia-secondary to atelectasis/morbid obesity suspected obstructive sleep apnea: As per the 's, he has restless sleep with snoring. Sometimes he doesnot breathe for 10 to 15 seconds and then wakes up with loud snoring with inspiration. Then he falls to sleep. Advised follow-up with PCP for outpatientsleep study and CPAP. Patient was educated about that. Continue incentive spirometry. 5. Morbid obesity: BMI 41.8 kg/m?. Weight loss counseling done. Beef Lugger consult. 6. JOSE RAUL, prerenal: Patient was admitted with creatinine 1.5, went up 1.9 and then came back 1.25. Seems mainly due to fluid shift and medications. JOSE RAUL resolved 09/01: Creatinine 1.12. Improvement in creatinine. Charges/Coding Visit Charges Inpatient E&M: 12737 Subs Hosp L2 09/02/23 1028 <Electronically signed by En Banks MD> Cosigner Signature (if applicable): CC: ~ Signed [facility] Work Phone: 1(312) 595-155402-21-2024 Progress note Author En Banks [facility] September 01, 2023 1:49pm Note Date/Time September 01, 2023 1:48pm [facility] Medical Records Department [address] [place] [id number] Progress Note - Hospitalist 09/01/23 1345 MR#: [id number] Acct: [id number] Name: KHOA CONNORS Jr. Rep #:[id number] : 1960 62 From: En Parmar PCP: Dr. Angelic Monsalve MD Status:ADM IN Location: [address] Reason for Visit Reason for Visit: Diagnoses Morbid (severe) obesity due to excess calories (08/25/23) Venous insufficiency (chronic) (peripheral) (08/25/23) Unilateral primary osteoarthritis, left knee (08/25/23) Hypoxemia (08/25/23) Presence of left artificial knee joint (08/25/23) Objective Data Objective Data Vital Signs: Vital Signs Temp Pulse Resp BP Pulse Ox O2 Del Method O2 Flow Rate 98.3 F 95 18 133/76 H 96 Room Air 3 09/01/23 09:00 09/01/23 09:00 09/01/23 10:00 09/01/23 09:00 09/01/23 09:00 09/01/23 10:00 08/29/23 10:00 Oxygen Flow Rate (L/min) 3 Oxygen Delivery Method Room Air Weight: 352 lb 11.834 oz Body Mass Index (BMI) 41.8 Intake & Output: Intake and Output for Last 24 Hours 08/30/23 08/31/23 09/01/23 23:59 23:59 23:59 Output Total 450 / 450 400 / 400 200 / 200 Balance -450 / -450 -400 / -400 -200 / -200 Lab / Micro Data 09/01/23 07:18 09/01/23 07:18 Labs: Laboratory Results - last 24 hr 09/01/23 07:18: WBC 3.2 L, RBC 2.79 L, Hgb 9.1 L, Hct 29.1 L, MCV 104.3 H, MCH 32.6 H, MCHC 31.3 L, RDW Std Deviation 56.5 H, RDW Coeff of Tan 14.7 H, Plt Count 104 L, MPV 10.5, Immature Gran % (Auto) 0.300, Neut % (Auto) 67.3, Lymph %(Auto) 16.2 L, Hart % (Auto) 10.2 H, Eos % (Auto) 5.7 H, Baso % (Auto) 0.3, Absolute Neuts (auto) 2.1, Absolute Lymphs (auto) 0.51 L, Nucleated RBC % 0, Sodium 144, Potassium 4.3, Chloride 114 H, Carbon Dioxide 28.0, Anion Gap 2 L, BUN 32 H, Creatinine 1.12, Estim Creat Clear Calc 110.70, Est GFR (MDRD) Af Amer85, Est GFR (MDRD) Non-Af 70, BUN/Creatinine Ratio 28.6 H, Glucose 157 H, Calcium 8.6 Physical Exam Narrative Seen and examined Patient had bowel movement. Still has pain and difficulty in a standing up or moving. He was scared of about the bruise around the operated knee. No active bleeding. General: Alert, Oriented x3, Cooperative, morbid obesity BMI 41.8 kg/m? HEENT: Atraumatic, PERRLA, EOMI, Normocephalic Oral: No Gingival or Mucosal Lesions/ Ulcerations Neck: Supple, No JVD, Negative Carotid Bruits Chest wall/Lungs: Air entry diminished in bilateral lung bases. No crepitation/rhonchi Cardiovascular: Regular rate, Regular Rhythm, Normal S1, Normal S2, No M/G/R Abdomen: Bowel Sounds Present, Soft, Non Tender, Non-Distended : No dysuria. No renal angle tenderness. No suprapubic tenderness. Extremities: No edema, Capillary Refill Less than 3 Seconds Skin: Left knee status post TKR, surgical dressing is dry. Musculoskeletal: Left knee tender around operative region. No Tenderness to Palpation of other joints or Extremities Neurological: Cranial nerves II-XII grossly intact, DTR 2+/4. No acute focal neurological deficit. Psych/Mental Status: Normal Affect, Appropriate. Assessment & Plan Assessment/Plan (1) Status post total left knee replacement: PLAN: Plan 1. Type 2 diabetes-patient is currently diet controlled and is not on any medications. Glucose is 125 in BMP. 08/31: Glucose is controlled. 08/23/2020: Glucose in Accu-Chek 164. In BMP 157. In acceptable range. 2 Morbid obesity-complicates care, medical course, recovery, and prognosis 3 osteoarthritis of the left knee-Patient had left knee minimally invasive robotic assisted total knee replacement on 08/25/2023. Continue PT and OT. Patient has difficulty in moving around but was able to walk outside in the hallway and in the rehab room. Plan for rehab discharge. 08/31: Patient is moving bowels. Still has significant pain. 09/01: Patient has mild bruising around knee but that is expected. Patient was evaluated by Dr. Luz. Plan for discharge to rehab, [employer] working on it. 4 hypoxia-secondary to atelectasis/morbid obesity suspected obstructive sleep apnea: As per the 's, he has restless sleep with snoring. Sometimes he doesnot breathe for 10 to 15 seconds and then wakes up with loud snoring with inspiration. Then he falls to sleep. Advised follow-up with PCP for outpatientsleep study and CPAP. Patient was educated about that. Continue incentive spirometry. 5. Morbid obesity: BMI 41.8 kg/m?. Weight loss counseling done. Beef Lugger consult. 6. JOSE RAUL, prerenal: Patient was admitted with creatinine 1.5, went up 1.9 and then came back 1.25. Seems mainly due to fluid shift and medications. JOSE RAUL resolved 09/01: Creatinine 1.12. Improvement in creatinine. Charges/Coding Visit Charges Inpatient E&M: 14491 Subs Hosp L2 09/01/23 1349 <Electronically signed by En Banks MD> Cosigner Signature (if applicable): CC: ~ Signed [facility] Work Phone: 1(181) 870-611902-21-2024 Progress note Author Butch Perkins [facility] September 01, 2023 10:56am Note Date/Time September 01, 2023 10:56am [facility] Medical Records Department [address] [place] [address] Progress Note - Orthopedic 09/01/23 1050 MR#: [id number] Acct: [id number] Name: KHOA CONNORS Rep #:[id number] : 1960 62 From: Butch MARQUEZ PA-C PCP: Dr. Angelic Monsalve MD Status:ADM IN Location: [place] [address] Subjective Subjective Patient lying in bed with his in the room with him. Patient states his knee has been painful. But he denies chest pain, shortness of breath, calf pain, nausea vomiting. Patient states he has been up ambulating with use of a walker. Patient is ready for discharge home awaiting on approval for hospital bed and delivery of the bed. Patient has no other complaints at this time. Objective Data Objective Data Vital Signs: Vital Signs Temp Pulse Resp BP Pulse Ox O2 Del Method O2 Flow Rate 97.9 F 94 15 130/75 H 96 Room Air 3 09/01/23 01:28 09/01/23 01:28 09/01/23 01:28 09/01/23 01:28 09/01/23 08:17 09/01/23 08:17 08/29/23 10:00 Oxygen Flow Rate (L/min) 3 Oxygen Delivery Method Room Air Weight: 160 kg Body Mass Index (BMI) 41.8 Intake & Output: Intake and Output for Last 24 Hours 08/30/23 08/31/23 09/01/23 23:59 23:59 23:59 Output Total 450 / 450 400 / 400 200 / 200 Balance -450 / -450 -400 / -400 -200 / -200 Lab / Micro Data 09/01/23 07:18 09/01/23 07:18 Labs: Laboratory Results - last 24 hr 09/01/23 07:18: WBC 3.2 L, RBC 2.79 L, Hgb 9.1 L, Hct 29.1 L, MCV 104.3 H, MCH 32.6 H, MCHC 31.3 L, RDW Std Deviation 56.5 H, RDW Coeff of Tan 14.7 H, Plt Count 104 L, MPV 10.5, Immature Gran % (Auto) 0.300, Neut % (Auto) 67.3, Lymph %(Auto) 16.2 L, Hart % (Auto) 10.2 H, Eos % (Auto) 5.7 H, Baso % (Auto) 0.3, Absolute Neuts (auto) 2.1, Absolute Lymphs (auto) 0.51 L, Nucleated RBC % 0, Sodium 144, Potassium 4.3, Chloride 114 H, Carbon Dioxide 28.0, Anion Gap 2 L, BUN 32 H, Creatinine 1.12, Estim Creat Clear Calc 110.70, Est GFR (MDRD) Af Amer85, Est GFR (MDRD) Non-Af 70, BUN/Creatinine Ratio 28.6 H, Glucose 157 H, Calcium 8.6 Physical Exam Narrative Exam, I have found the patient lying comfortably in bed awake alert in no respiratory distress speaking in full sentences. Patient's at his side. Cranial nerves II through XII gross intact. Patient excellent range of motion the upper extremities good muscle tone and strength. The knee was cool to touchthe dressing was clean dry intact. Patient had no calf tenderness. He did havepain with full extension and flexion to approximately 50 degrees. Patient had good plantarflexion dorsiflexion of the foot and ankle. Neurovascular is otherwise intact. Const alert, oriented x3 and no apparent distress General Appearance: cooperative HEENT normocephalic Eyes PERRL Resp normal respiratory effort Effort and Inspection: able to speak in complete sentences Extremity normal capillary refill Skin no rashes or lesions noted Neuro CN's II-XII intact bilaterally Psych mental status grossly normal Assessment & Plan Assessment/Plan (1) Status post total left knee replacement: PLAN: 1. Continue all pain medications as prescribed 2. Continue aspirin 81 mg 1 p.o. every 12 hours x 30 days for postop DVT prophylaxis 3. Encourage incentive spirometry 4. Continue physical therapy weight-bear as tolerated with use of walker 5. Continue ice to left knee 6. Change dressing the day of discharge home. 7. Patient will require a hospital bed at home due to needing frequent change of position to alleviate pain. 8. Discharge home when necessary medical equipment has been provided at his home. 09/01/23 1056 <Electronically signed by Butch MARQUEZ PA-C> Cosigner Signature (if applicable): CC: ~ Signed [facility] Work Phone: 1(169) 376-115802-20-2024 Progress note Author En Banks [facility] August 31, 2023 4:18pm Note Date/Time August 31, 2023 9:45am [facility] Medical Records Department [address] [place] [address] Progress Note - Hospitalist 08/31/23 0943 MR#: [id number] Acct: [id number] Name: KHOA CONNORS Rep #:[id number] : 1960 62 From: En Parmar PCP: Dr. Angelic Monsalve MD Status:ADM IN [id number] Reason for Visit Reason for Visit: Diagnoses Morbid (severe) obesity due to excess calories (08/25/23) Venous insufficiency (chronic) (peripheral) (08/25/23) Unilateral primary osteoarthritis, left knee (08/25/23) Hypoxemia (08/25/23) Presence of left artificial knee joint (08/25/23) Objective Data Objective Data Vital Signs: Vital Signs Temp Pulse Resp BP Pulse Ox O2 Del Method O2 Flow Rate 98.2 F 92 18 152/76 H 96 Room Air 3 08/31/23 08:23 08/31/23 08:23 08/31/23 08:23 08/31/23 08:23 08/31/23 08:23 08/31/23 08:26 08/29/23 10:00 Oxygen Flow Rate (L/min) 3 Oxygen Delivery Method Room Air Weight: 352 lb 11.834 oz Body Mass Index (BMI) 41.8 Intake & Output: Intake and Output for Last 24 Hours 08/29/23 08/30/23 08/31/23 23:59 23:59 23:59 Intake Total 920 / 920 Output Total 1150 / 1150 450 / 450 Balance -230 / -230 -450 / -450 Lab / Micro Data 08/28/23 05:17 08/28/23 05:17 Physical Exam Narrative General: Alert, Oriented x3, Cooperative, morbid obesity BMI 41.8 kg/m? HEENT: Atraumatic, PERRLA, EOMI, Normocephalic Oral: No Gingival or Mucosal Lesions/ Ulcerations Neck: Supple, No JVD, Negative Carotid Bruits Chest wall/Lungs: Air entry diminished in bilateral lung bases. No crepitation/rhonchi Cardiovascular: Regular rate, Regular Rhythm, Normal S1, Normal S2, No M/G/R Abdomen: Bowel Sounds Present, Soft, Non Tender, Non-Distended : No dysuria. No renal angle tenderness. No suprapubic tenderness. Extremities: No edema, Capillary Refill Less than 3 Seconds Skin: Left knee status post TKR, surgical dressing is dry. Musculoskeletal: Left knee tender around operative region. No Tenderness to Palpation of other joints or Extremities Neurological: Cranial nerves II-XII grossly intact, DTR 2+/4. No acute focal neurological deficit. Psych/Mental Status: Normal Affect, Appropriate. Assessment & Plan Assessment/Plan (1) Status post total left knee replacement: PLAN: Plan 1. Type 2 diabetes-patient is currently diet controlled and is not on any medications. Glucose is 125 in BMP. 08/31: Glucose is controlled. 2 Morbid obesity-complicates care, medical course, recovery, and prognosis 3 osteoarthritis of the left knee-Patient had left knee minimally invasive robotic assisted total knee replacement on 08/25/2023. Continue PT and OT. Patient has difficulty in moving around but was able to walk outside in the hallway and in the rehab room. Plan for rehab discharge. 08/31: Patient is moving bowels. Still has significant pain. 4 hypoxia-secondary to atelectasis/morbid obesity suspected obstructive sleep apnea: As per the 's, he has restless sleep with snoring. Sometimes he doesnot breathe for 10 to 15 seconds and then wakes up with loud snoring with inspiration. Then he falls to sleep. Advised follow-up with PCP for outpatientsleep study and CPAP. Patient was educated about that. Continue incentive spirometry. 5. Morbid obesity: BMI 41.8 kg/m?. Weight loss counseling done. Beef Lugger consult. 6. JOSE RAUL, prerenal: Patient was admitted with creatinine 1.5, went up 1.9 and then came back 1.25. Seems mainly due to fluid shift and medications. JOSE RAUL resolved. Charges/Coding Visit Charges Inpatient E&M: 36502 Subs Hosp L2 08/31/23 1618 <Electronically signed by En Banks MD> Cosigner Signature (if applicable): CC: ~ Signed [facility] Work Phone: 1(451) 514-791302-20-2024 Progress note Author Drayl Luz [facility] August 31, 2023 1:26pm Note Date/Time August 31, 2023 1:26pm [facility] Medical Records Department [address] [place] [address] Progress Note - Orthopedic 08/31/23 1321 MR#: [id number] Acct: [id number] Name: KHOA CONNORS Jr. Rep #:[id number] : 1960 62 From: Daryl Parmar PCP: Dr. Angelic Monsalve MD Status:ADM IN Location: [place] [address] Subjective Subjective Patient is doing well today. No acute events overnight. Does have some ecchymosis on his posterior calf otherwise no new complaints. Waiting on Workmen's Comp. to approve. Patient was denied admission to. [facility] for [place] [facility]. Now we are attempting again discharged home with home health. Will need bedside commode in bed.Not requiring oxygen at this time. Objective Data Objective Data Vital Signs: Vital Signs Temp Pulse Resp BP Pulse Ox O2 Del Method O2 Flow Rate 98.2 F 92 18 152/76 H 96 Room Air 3 08/31/23 08:23 08/31/23 08:23 08/31/23 08:23 08/31/23 08:23 08/31/23 08:23 08/31/23 08:26 08/29/23 10:00 Oxygen Flow Rate (L/min) 3 Oxygen Delivery Method Room Air Weight: 352 lb 11.834 oz Body Mass Index (BMI) 41.8 Intake & Output: Intake and Output for Last 24 Hours 08/29/23 08/30/23 08/31/23 23:59 23:59 23:59 Intake Total 920 / 920 Output Total 1150 / 1150 450 / 450 Balance -230 / -230 -450 / -450 Lab / Micro Data 08/28/23 05:17 08/28/23 05:17 Physical Exam Narrative Left lower extremity: Dressing is clean dry and intact Sensations intact to light touch saphenous, sural, superficial peroneal, deep peroneal, and tibial distributions Motors intact EHL, DF, PF calves are soft and supple Const alert, oriented x3 and no apparent distress Assessment & Plan Assessment/Plan (1) Status post total left knee replacement: PLAN: 1. S/P left total knee arthroplasty POD #6 2. Continue Pain Medications: Tylenol, oxycodone. 3. DVT Prophylaxis: Take 81 mg aspirin twice daily for 4 weeks postoperatively for DVT prophylaxis. Patient denies past history of DVT or pulmonary embolism 4. PT/OT: Weightbearing as tolerated with walker. Appreciate recommendations from physical therapy, patient seems to be progressing appropriately consideringright lower extremity deficits. There are concerns with patient's ability to recover as he has chronic neurologic deficit on the right lower extremity with foot drop. Awaiting approval for Workmen's Compensation, current plan is for discharge home with home health care and available entities. 5. Continue postoperative medical management per medicine. Appreciate medical care patient's hypoxia appears to be resolved at this time. Patient encouraged to follow-up with PCP for sleep apnea 6. Currently on doxycycline for 2 weeks postoperatively due to elevated BMI greater than 40.0. I discussed with the patient potential side effects of doxycycline including sensitivity to the sunlight and increased risk of skin burn. Recommend patient take appropriate precautions. Also recommend patient to take probiotic while on the antibiotic. Patient voiced understanding agreement. 7. Hypoxia: Significantly improved, on room air today 8. Dressing: Dressing remains intact and dry. While he is in house we will leave the dressing on for a total of 7 days. Will remove on postop day 7 and leave open to air if patient remains the hospital. 9. Disposition: Case management is currently involved with appropriate discharge planning. Patient's current situation on his left knee is under Worker's Comp. currently working through Workmen's Compensation to get home health care approved. Will continue to look at appropriate avenues and interventions may allow him to return home. I have reviewed the [place] Automated Rx Reporting System (OARRS) report for this patient for refill pattern and other prescriber involvement as part of the appropriate surveillance for the provision of acute and chronic controlled medications. The report was requested and reviewed on the date of this entry and was considered in the prescribing process. This dictation was created using voice recognition software. Phonetic and/or grammatical errors may exist. (2) Chronic venous insufficiency: PLAN: Can affect wound healing and outcome. Will monitor, medical consultation (3) Obesity, morbid: PLAN: Can affect postoperative outcome. Medical consultation placed (4) Hypoxia: PLAN: Discussed with medicine team will begin hypoxia workup today. 08/31/23 1326 <Electronically signed by Daryl Luz MD> Cosigner Signature (if applicable): CC: ~ Signed [facility] Work Phone: 1(959) 409-119402-20-2024 Progress note Author En Banks [facility] August 31, 2023 9:45am Note Date/Time August 30, 2023 3:07pm [facility] Medical Records Department [address] [place] [address] Progress Note - Hospitalist 08/30/23 1501 MR#: [id number] Acct: [id number] Name: KHOA CONNORS Jr. Rep #:[id number] : 1960 62 From: En Parmar PCP: Dr. Angelic Monsalve MD Status:ADM IN Location: [place] [address] Reason for Visit Reason for Visit: Diagnoses Morbid (severe) obesity due to excess calories (08/25/23) Venous insufficiency (chronic) (peripheral) (08/25/23) Unilateral primary osteoarthritis, left knee (08/25/23) Hypoxemia (08/25/23) Presence of left artificial knee joint (08/25/23) Objective Data Objective Data Vital Signs: Vital Signs Temp Pulse Resp BP Pulse Ox O2 Del Method O2 Flow Rate 98.7 F 84 18 161/85 H 95 Room Air 3 08/30/23 14:26 08/30/23 14:26 08/30/23 14:26 08/30/23 14:08/30/23 14:26 08/30/23 14:08/29/23 10:00 Oxygen Flow Rate (L/min) 3 Oxygen Delivery Method Room Air Weight: 352 lb 11.834 oz Body Mass Index (BMI) 41.8 Intake & Output: Intake and Output for Last 24 Hours 08/28/23 08/29/23 08/30/23 23:59 23:59 23:59 Intake Total 660 / 860 920 / 920 Output Total 1000 / 1100 1150 / 1150 450 / 450 Balance -340 / -240 -230 / -230 -450 / -450 Lab / Micro Data 08/28/23 05:17 08/28/23 05:17 Assessment & Plan Assessment/Plan (1) Status post total left knee replacement: PLAN: Plan 1. Type 2 diabetes-patient is currently diet controlled and is not on any medications. Glucose is 125 in BMP. 2 Morbid obesity-complicates care, medical course, recovery, and prognosis 3 osteoarthritis of the left knee-Patient had left knee minimally invasive robotic assisted total knee replacement on 08/25/2023. Continue PT and OT. Patient has difficulty in moving around but was able to walk outside in the hallway and in the rehab room. Plan for rehab discharge. 4 hypoxia-secondary to atelectasis/morbid obesity suspected obstructive sleep apnea: As per the 's, he has restless sleep with snoring. Sometimes he doesnot breathe for 10 to 15 seconds and then wakes up with loud snoring with inspiration. Then he falls to sleep. Advised follow-up with PCP for outpatientsleep study and CPAP. Patient was educated about that. Continue incentive spirometry. 5. Morbid obesity: BMI 41.8 kg/m?. Weight loss counseling done. Beef Lugger consult. 6. JOSE RAUL, prerenal: Patient was admitted with creatinine 1.5, went up 1.9 and then came back 1.25. Seems mainly due to fluid shift and medications. JOSE RAUL resolved. Charges/Coding Visit Charges Inpatient E&M: 21120 Subs Hosp L2 08/30/23 1507 <Electronically signed by En Banks MD> Cosigner Signature (if applicable): CC: ~ Signed ADDENDUM by Dr. En Banks MD on 08/31/23 at 0945 Addendum Physical exam findings General: Alert, Oriented x3, Cooperative, morbid obesity BMI 41.8 kg/m? HEENT: Atraumatic, PERRLA, EOMI, Normocephalic Oral: No Gingival or Mucosal Lesions/ Ulcerations Neck: Supple, No JVD, Negative Carotid Bruits Chest wall/Lungs: Air entry diminished in bilateral lung bases. No crepitation/rhonchi Cardiovascular: Regular rate, Regular Rhythm, Normal S1, Normal S2, No M/G/R Abdomen: Bowel Sounds Present, Soft, Non Tender, Non-Distended : No dysuria. No renal angle tenderness. No suprapubic tenderness. Extremities: No edema, Capillary Refill Less than 3 Seconds Skin: Left knee status post TKR, surgical dressing is dry. Musculoskeletal: Left knee tender around operative region. No Tenderness to Palpation of other joints or Extremities Neurological: Cranial nerves II-XII grossly intact, DTR 2+/4. No acute focal neurological deficit. Psych/Mental Status: Normal Affect, Appropriate. 08/31/23 0945<Electronically signed by En Banks MD> Cosigner Signature (if applicable): cc: ~* Signed [facility] Work Phone: 1(160) 368-297502-19-2024 Progress note Author Daryl Luz [facility] August 30, 2023 8:50am Note Date/Time August 30, 2023 8:50am [facility] Medical Records Department [address] [place] [id number] Progress Note - Orthopedic 08/30/23 0827 MR#: [id number] Acct: [id number] Name: KHOA CONNORS Jr. Rep #:[id number] : 1960 62 From: Daryl Parmar PCP: Dr. Angelic Monsalve MD Status:ADM IN Location: [place] [address] Subjective Subjective Patient is doing well overall. He has been weaned off oxygen. Continues to be stable medically. Patient's is at bedside. She states goals to go home. He still has recommendations for [place] [facility] from therapy however, has made promising progress over the weekend. There is some thought that with a hospitalbed he may be able to return home. He is also worried about his recliner being low and difficulty arise from. No acute events overnight. No chest pain or shortness of breath today. Objective Data Objective Data Vital Signs: Vital Signs Temp Pulse Resp BP Pulse Ox O2 Del Method O2 Flow Rate 98 F 88 18 146/82 H 94 Room Air 3 08/30/23 08:00 08/30/23 08:00 08/30/23 08:00 08/30/23 08:00 08/30/23 08:00 08/30/23 08:00 08/29/23 10:00 Oxygen Flow Rate (L/min) 3 Oxygen Delivery Method Room Air Weight: 352 lb 11.834 oz Body Mass Index (BMI) 41.8 Intake & Output: Intake and Output for Last 24 Hours 08/28/23 08/29/23 08/30/23 23:59 23:59 23:59 Intake Total 660 / 860 920 / 920 Output Total 1000 / 1100 1150 / 1150 450 / 450 Balance -340 / -240 -230 / -230 -450 / -450 Lab / Micro Data 08/28/23 05:17 08/28/23 05:17 Physical Exam Narrative Left lower extremity: Dressing is clean dry and intact except for one quarter sized area of saturation over the distal incision which is dried blood Sensations intact to light touch saphenous, sural, superficial peroneal, deep peroneal, and tibial distributions Motors intact EHL, DF, PF calves are soft and supple Const alert, oriented x3 and no apparent distress Assessment & Plan Assessment/Plan (1) Status post total left knee replacement: PLAN: 1. S/P left total knee arthroplasty POD #5 2. Continue Pain Medications: Tylenol, oxycodone. Patient's last dose of oxycodone was yesterday afternoon. 3. DVT Prophylaxis: Take 81 mg aspirin twice daily for 4 weeks postoperatively for DVT prophylaxis. Patient denies past history of DVT or pulmonary embolism 4. PT/OT: Weightbearing as tolerated with walker. Appreciate recommendations from physical therapy, patient seems to be progressing appropriately consideringright lower extremity deficits. There are concerns with patient's ability to recover as he has chronic neurologic deficit on the right lower extremity with foot drop. 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 5. Continue postoperative medical management per medicine. Appreciate medical care patient's hypoxia significantly improved 6. Currently on doxycycline for 2 weeks postoperatively due to elevated BMI greater than 40.0. I discussed with the patient potential side effects of doxycycline including sensitivity to the sunlight and increased risk of skin burn. Recommend patient take appropriate precautions. Also recommend patient to take probiotic while on the antibiotic. Patient voiced understanding agreement. 7. Hypoxia: Significantly improved, on room air today 8. Dressing: Dressing remains intact and dry. While he is in house we will leave the dressing on for a total of 7 days. Will remove on postop day 7 and leave open to air if patient remains the hospital. 9. Disposition: Case management is currently involved with appropriate discharge planning. Patient's current situation on his left knee is under Worker's Comp. Due to patient's morbid obesity, chronic neurologic deficits on the right, and not enough assistance at home there is concern for discharge home. Patient's was at bedside today and does express a desire to bring the patient home. Patient's pain has improved from yesterday. He was able to do more with therapy and did start working on steps. Therapy currently is [facility] discharge. Continue to appreciate recommendations from physical therapy. Due to the holiday we may not beable to determine discharge planning until Wednesday. Patient will continue with above medications. Appreciate recommendations from medicine. Patient's was also inquiring about a hospital bed at home, I did explain that this may also take time to get approved due to Workmen's Compensation approval being required. Ultimately, I spent considerable time today encouraging the patient to develop an appropriate mindset and goals to go home as we do anticipate significant delays in relation to obtaining Workmen's Compensation approval. Patient understands that as we worked through this he may meet criteria to return home. Will continue to look at appropriate avenues and interventions mayallow him to return home. I have reviewed the [place] Automated Rx Reporting System (OARRS) report for this patient for refill pattern and other prescriber involvement as part of the appropriate surveillance for the provision of acute and chronic controlled medications. The report was requested and reviewed on the date of this entry and was considered in the prescribing process. This dictation was created using voice recognition software. Phonetic and/or grammatical errors may exist. (2) Chronic venous insufficiency: PLAN: Can affect wound healing and outcome. Will monitor, medical consultation (3) Obesity, morbid: PLAN: Can affect postoperative outcome. Medical consultation placed (4) Hypoxia: PLAN: Discussed with medicine team will begin hypoxia workup today. 08/30/23 0850 <Electronically signed by Daryl Luz MD> Cosigner Signature (if applicable): CC: ~ Signed [facility] Work Phone: [phone] 132-318102-18-2024 Progress note Author Haroldo Ruiz [facility] August 29, 2023 3:28pm Note Date/Time August 29, 2023 3:28pm [facility] Medical Records Department [address] [place] [address] Progress Note - Hospitalist 08/29/23 1526 MR#: [id number] Acct: [id number] Name: KHOA CONNORS Jr. Rep #:[id number] : 1960 62 From: Haroldo Ruiz DO PCP: Dr. Angelic Monsalve MD Status:ADM IN Location: [facility] MP463-8 Reason for Visit Reason for Visit: Diagnoses Morbid (severe) obesity due to excess calories (08/25/23) Venous insufficiency (chronic) (peripheral) (08/25/23) Unilateral primary osteoarthritis, left knee (08/25/23) Hypoxemia (08/25/23) Presence of left artificial knee joint (08/25/23) Subjective Subjective Patient was seen and examined today, I talked with his was in the room at the time my examination explained to her that he had refused aerosol treatments and IV Lasix, she states that he is noncompliant at home with medical treatment,patient has agreed to take the Lasix today-I have written for single dose to seeif this would impact his respiratory status. Patient still on nasal cannula oxygen at low flow, he still having a hard time with rehab, he states he is not able to go up stairs which she will need to do before he can go home. Objective Data Objective Data Vital Signs: Vital Signs Temp Pulse Resp BP Pulse Ox O2 Del Method O2 Flow Rate 98.9 F 96 18 146/74 H 93 Room Air 3 08/29/23 14:37 08/29/23 14:37 08/29/23 14:37 08/29/23 14:37 08/29/23 14:37 08/29/23 14:37 08/29/23 08:56 Oxygen Flow Rate (L/min) 3 Oxygen Delivery Method Room Air Weight: 160 kg Body Mass Index (BMI) 41.8 Intake & Output: Intake and Output for Last 24 Hours 08/27/23 08/28/23 08/29/23 23:59 23:59 23:59 Intake Total 660 / 860 200 / 200 Output Total 250 / 850 1000 / 1100 100 / 100 Balance -250 / -850 -340 / -240 100 / 100 Lab / Micro Data 08/28/23 05:17 08/28/23 05:17 Physical Exam Narrative alert, oriented x3 and no apparent distress Constitutional Narrative: Patient is morbidly obese General Appearance: cooperative, well kempt and well developed Orientation / Consciousness: awake, oriented to person, oriented to place and oriented to time HEENT normocephalic, head/scalp atraumatic and moist oral mucous membranes Eyes PERRL, EOMs intact bilaterally and conjunctivae normal Neck supple, no JVD, thyroid normal and no carotid bruits General: trachea midline Resp normal respiratory effort, no retractions, no use of accessory muscles and clearto auscultation bilaterally Auscultation: Negative for rales, rhonchi or wheezes Cardio regular rate, regular rhythm, S1 normal heart sound, S2 normal heart sound, no murmurs, no rub and no gallops GI normal to inspection, nondistended, normoactive bowel sounds, soft to palpation,non-tender and non-distended Extremity no clubbing, cyanosis or edema Skin no rashes or lesions noted General Skin Exam: no breakdown Neuro oriented x3 and CN's II-XII intact bilaterally Sensorium / Orientation: awake and alert Speech: speech normal Psych affect normal Assessment & Plan Assessment/Plan (1) Status post total left knee replacement: PLAN: Plan 1. Type 2 diabetes-patient is currently diet controlled and is not on any medications. #2 morbid obesity-complicates care, medical course, recovery, and prognosis #3 osteoarthritis of the left knee-postop day #4 left total knee replacement, PTand OT are seeing patient, orthopedic surgery is participating in his care, it is likely that the patient will need several more days of inpatient rehab here due to the fact that it is unlikely a nursing facility will be able to take the patient under Workmen's Comp. I talked briefly with orthopedic surgery about this today. #4 hypoxia-secondary to atelectasis, patient is refusing aerosol treatments at this time, he has been encouraged to use incentive spirometry, patient will be given 1 dose of IV Lasix #5 elevated creatinine-patient's creatinine has dropped to normal Total clinical time spent by myself addressing the patient's medical issues, reviewing all of his data, and collaborating with patient's care team: 25-minute Charges/Coding Visit Charges Inpatient E&M: 43115 Subs Hosp L1 08/29/23 1528 <Electronically signed by Haroldo Ruiz DO> Cosigner Signature (if applicable): CC: ~ Signed [facility] Work Phone: 1([phone]) 488-248702-18-2024 Progress note Author Uriel Linder [facility] August 29, 2023 10:22am Note Date/Time August 29, 2023 10:22am [facility] Medical Records Department [address] [place] [address] Progress Note - Orthopedic 08/29/23 1017 MR#: [id number] Acct: [id number] Name: KHOA CONNORS Jr. Rep #:[id number] : 1960 62 From: Uriel MARQUEZ PA-C PCP: Dr. Angelic Monsalve MD Status:ADM IN [facility] Subjective Subjective The patient was sitting in bed upon examination with his present. Patient denies any chest pain, shortness of breath, dizziness, lightheadedness, nausea or vomiting, or calf pain. No adverse overnight events. Patient states his pain has improved. He had less pain associated with physical therapy. Physicaltherapy did start to work on steps yesterday. Patient overall does feel better today. We are waiting approval for patient to go to [facility]. Objective Data Objective Data Vital Signs: Vital Signs Temp Pulse Resp BP Pulse Ox O2 Del Method O2 Flow Rate 97.9 F 85 18 148/77 H 96 Nasal Cannula 3 08/29/23 08:56 08/29/23 08:56 08/29/23 08:56 08/29/23 08:56 08/29/23 08:56 08/29/23 08:56 08/29/23 08:56 Oxygen Flow Rate (L/min) 3 Oxygen Delivery Method Nasal Cannula Weight: 160 kg Body Mass Index (BMI) 41.8 Intake & Output: Intake and Output for Last 24 Hours 08/27/23 08/28/23 08/29/23 23:59 23:59 23:59 Intake Total 660 / 860 200 / 200 Output Total 250 / 850 1000 / 1100 100 / 100 Balance -250 / -850 -340 / -240 100 / 100 Lab / Micro Data 08/28/23 05:17 08/28/23 05:17 Physical Exam Narrative Vital signs stable and afebrile. SCDs and LOR hose are in place bilaterally Patient is able to plantarflex and dorsiflex actively. Sensation is intact to light touch to saphenous, sural, superficial and deep peroneal, and tibial distribution. Dressing has mild drainage over the distal one third with remaining dressing clean dry and intact. Negative Homans bilaterally, negative signs and symptoms of DVT. Const alert, oriented x3 and no apparent distress Assessment & Plan Assessment/Plan (1) Status post total left knee replacement: PLAN: 1. S/P left total knee arthroplasty POD #4 2. Continue Pain Medications: Tylenol, oxycodone. Patient states his pain has been improved since yesterday. 3. DVT Prophylaxis: Take 81 mg aspirin twice daily for 4 weeks postoperatively for DVT prophylaxis. Patient denies past history of DVT or pulmonary embolism 4. PT/OT: Weightbearing as tolerated with walker. Appreciate recommendations from physical therapy. There are concerns with patient's ability to recover as he has chronic neurologic deficit on the right lower extremity with foot drop. Patient did have promising session with physical therapy this morning. He has been able to ambulate up and down the hallway. Patient remains concerned about stairs he has to navigate at home. 5. Continue postoperative medical management per medicine 6. Currently on doxycycline for 2 weeks postoperatively due to elevated BMI greater than 40.0. I discussed with the patient potential side effects of doxycycline including sensitivity to the sunlight and increased risk of skin burn. Recommend patient take appropriate precautions. Also recommend patient to take probiotic while on the antibiotic. Patient voiced understanding agreement. 7. Hypoxia: Patient did have chest x-ray which was found for atelectasis. Aerosol treatments have been initiated and encouraging incentive spirometer. Weare trying to wean patient down from oxygen. On exam he had the oxygen off and we will continue to monitor O2 saturation with patient's pulse ox. Patient has been advised upon discharge working up for underlying sleep apnea. 8. Disposition: Case management is currently involved with appropriate discharge planning. Patient's current situation on his left knee is under Worker's Comp. Due to patient's morbid obesity, chronic neurologic deficits on the right, and not enough assistance at home there is concern for discharge home. Patient's was at bedside today. Patient's pain has improved from yesterday. He was able to do more with therapy and did start working on steps. Therapy currently is [facility] discharge. Continue to appreciate recommendations from physical therapy. Due to the holiday we may not be able to determine discharge planning until Wednesday. Patient will continue with above medications. Appreciate recommendations from medicine. Patient's was also inquiring about a hospital bed at home. I did explain to him that we would need to check with [employer] as this would have to be approved through Worker's Comp. I have reviewed the [place] Automated Rx Reporting System (OARRS) report for this patient for refill pattern and other prescriber involvement as part of the appropriate surveillance for the provision of acute and chronic controlled medications. The report was requested and reviewed on the date of this entry and was considered in the prescribing process. This dictation was created using voice recognition software. Phonetic and/or grammatical errors may exist. (2) Chronic venous insufficiency: PLAN: Can affect wound healing and outcome. Will monitor, medical consultation (3) Obesity, morbid: PLAN: Can affect postoperative outcome. Medical consultation placed (4) Hypoxia: PLAN: Discussed with medicine team will begin hypoxia workup today. 08/29/23 1022 <Electronically signed by Uriel MARQUEZ PA-C> Cosigner Signature (if applicable): CC: ~ Signed [facility] Work Phone: 1(654) 735-247002-17-2024 Progress note Author Haroldo Ruiz [facility] August 28, 2023 4:00pm Note Date/Time August 28, 2023 4:00pm [facility] Medical Records Department [address] [place] [address] Progress Note - Hospitalist 08/28/23 1557 MR#: [id number] Acct: [id number] Name: KHOA CONNORS Rep #:[id number] : 1960 62 From: Haroldo Ruiz DO PCP: Dr. Angelic Monsalve MD Status:ADM IN [facility] Reason for Visit Reason for Visit: Diagnoses Morbid (severe) obesity due to excess calories (08/25/23) Venous insufficiency (chronic) (peripheral) (08/25/23) Unilateral primary osteoarthritis, left knee (08/25/23) Hypoxemia (08/25/23) Presence of left artificial knee joint (08/25/23) Subjective Subjective Patient was seen and examined today, he has been refusing his breathing treatments, I stopped them. Patient is still on low-flow nasal cannula oxygen. Objective Data Objective Data Vital Signs: Vital Signs Temp Pulse Resp BP Pulse Ox O2 Del Method O2 Flow Rate 97.9 F 97 16 146/104 H 94 Nasal Cannula 3 08/28/23 14:05 08/28/23 14:05 08/28/23 14:05 08/28/23 14:05 08/28/23 14:05 08/28/23 14:05 08/28/23 14:05 Oxygen Flow Rate (L/min) 3 Oxygen Delivery Method Nasal Cannula Weight: 160 kg Body Mass Index (BMI) 41.8 Intake & Output: Intake and Output for Last 24 Hours 08/26/23 08/27/23 08/28/23 23:59 23:59 23:59 Intake Total 1150 / 1150 240 / 240 Output Total 450 / 450 250 / 850 1000 / 1000 Balance 700 / 700 -250 / -850 -760 / -760 Lab / Micro Data 08/28/23 05:17 08/28/23 05:17 Labs: Laboratory Results - last 24 hr 08/28/23 05:17: WBC 3.6 L, RBC 2.88 L, Hgb 9.1 L, Hct 29.5 L, MCV 102.4 H, MCH 31.6, MCHC 30.8 L, RDW Std Deviation 55.2 H, RDW Coeff of Tan 14.6, Plt Count 76L, MPV 10.4, Immature Gran % (Auto) 0.300, Neut % (Auto) 67.0, Lymph % (Auto) 19.4, Hart % (Auto) 9.3, Eos % (Auto) 3.7, Baso % (Auto) 0.3, Absolute Neuts (auto) 2.4, Absolute Lymphs (auto) 0.69 L, Nucleated RBC % 0, Sodium 140, Potassium 4.6, Chloride 111 H, Carbon Dioxide 28.0, Anion Gap 1 L, BUN 53 H, Creatinine 1.25, Estim Creat Clear Calc 99.19, Est GFR (MDRD) Af Amer 75, Est GFR (MDRD) Non-Af 62, BUN/Creatinine Ratio 42.4 H, Glucose 125 H, Calcium 8.6 Physical Exam Narrative alert, oriented x3 and no apparent distress Constitutional Narrative: Patient is morbidly obese General Appearance: cooperative, well kempt and well developed Orientation / Consciousness: awake, oriented to person, oriented to place and oriented to time HEENT normocephalic, head/scalp atraumatic and moist oral mucous membranes Eyes PERRL, EOMs intact bilaterally and conjunctivae normal Neck supple, no JVD, thyroid normal and no carotid bruits General: trachea midline Resp normal respiratory effort, no retractions, no use of accessory muscles and clearto auscultation bilaterally Auscultation: Negative for rales, rhonchi or wheezes Cardio regular rate, regular rhythm, S1 normal heart sound, S2 normal heart sound, no murmurs, no rub and no gallops GI normal to inspection, nondistended, normoactive bowel sounds, soft to palpation,non-tender and non-distended Extremity no clubbing, cyanosis or edema Skin no rashes or lesions noted General Skin Exam: no breakdown Neuro oriented x3 and CN's II-XII intact bilaterally Sensorium / Orientation: awake and alert Speech: speech normal Psych affect normal Assessment & Plan Assessment/Plan (1) Status post total left knee replacement: PLAN: Plan 1. Type 2 diabetes-patient is currently diet controlled and is not on any medications. #2 morbid obesity-complicates care, medical course, recovery, and prognosis #3 osteoarthritis of the left knee-postop day #3 left total knee replacement, PTand OT are seeing patient, orthopedic surgery is participating in his care #4 hypoxia-secondary to atelectasis, patient is refusing aerosol treatments at this time, he has been encouraged to use incentive spirometry #5 elevated creatinine-patient's creatinine has dropped to normal Total clinical time spent by myself addressing the patient's medical issues, reviewing all of his data, and collaborating with patient's care team: 25-minute Charges/Coding Visit Charges Inpatient E&M: 17411 Subs Hosp L1 08/28/23 1600 <Electronically signed by Haroldo Tereletsky DO> Cosigner Signature (if applicable): CC: ~ Signed [facility] Work Phone: [phone] Progress note Author Uriel Martinezairamabram [facility] August 28, 2023 12:21pm Note Date/Time August 28, 2023 12:21pm [facility] Medical Records Department [address] [place] [address] Progress Note - Orthopedic 08/28/23 1212 MR#: [id number] Acct: [id number] Name: KHOA CONNORS Jr. Rep #:[id number] : 1960 62 From: Uriel MARQUEZ PA-C PCP: Dr. Angelic Monsalve MD Status:ADM IN Location: [facility] XI133-4 Subjective Subjective The patient was sitting in bed upon examination with his present. Patient denies any chest pain, shortness of breath, dizziness, lightheadedness, nausea or vomiting, or calf pain. Patient continues to complain of increased pain. Hedoes not appear to be in acute distress. No adverse overnight events. Patient has been working with physical therapy. Patient states he has increased pain with therapy. They have placed a chair in his room that is much easier for him to get up from. They have also adjusted his toilet. We are waiting on [facility] determination from case management. Objective Data Objective Data Vital Signs: Vital Signs Temp Pulse Resp BP Pulse Ox O2 Del Method O2 Flow Rate 98.1 F 87 16 143/66 H 96 Nasal Cannula 3 08/28/23 10:58 08/28/23 10:58 08/28/23 10:58 08/28/23 10:58 08/28/23 10:58 08/28/23 10:58 08/28/23 10:58 Oxygen Flow Rate (L/min) 3 Oxygen Delivery Method Nasal Cannula Weight: 160 kg Body Mass Index (BMI) 41.8 Intake & Output: Intake and Output for Last 24 Hours 08/26/23 08/27/23 08/28/23 23:59 23:59 23:59 Intake Total 1150 / 1150 Output Total 450 / 450 250 / 850 1000 / 1000 Balance 700 / 700 -250 / -850 -1000 / -1000 Lab / Micro Data 08/28/23 05:17 02/17/24 05:17 Labs: Laboratory Results - last 24 hr 08/28/23 05:17: WBC 3.6 L, RBC 2.88 L, Hgb 9.1 L, Hct 29.5 L, MCV 102.4 H, MCH 31.6, MCHC 30.8 L, RDW Std Deviation 55.2 H, RDW Coeff of Tan 14.6, Plt Count 76L, MPV 10.4, Immature Gran % (Auto) 0.300, Neut % (Auto) 67.0, Lymph % (Auto) 19.4, Hart % (Auto) 9.3, Eos % (Auto) 3.7, Baso % (Auto) 0.3, Absolute Neuts (auto) 2.4, Absolute Lymphs (auto) 0.69 L, Nucleated RBC % 0, Sodium 140, Potassium 4.6, Chloride 111 H, Carbon Dioxide 28.0, Anion Gap 1 L, BUN 53 H, Creatinine 1.25, Estim Creat Clear Calc 99.19, Est GFR (MDRD) Af Amer 75, Est GFR (MDRD) Non-Af 62, BUN/Creatinine Ratio 42.4 H, Glucose 125 H, Calcium 8.6 Physical Exam Narrative Vital signs stable and afebrile. SCDs and LOR hose are in place bilaterally Patient is able to plantarflex and dorsiflex actively. Sensation is intact to light touch to saphenous, sural, superficial and deep peroneal, and tibial distribution. Dressing is clean dry and intact. Negative Homans bilaterally, negative signs and symptoms of DVT. Const alert, oriented x3 and no apparent distress Assessment & Plan Assessment/Plan (1) Status post total left knee replacement: PLAN: 1. S/P left total knee arthroplasty POD #3 2. Continue Pain Medications: Tylenol, oxycodone. Meloxicam discontinued due to increase in BUN and creatinine. The creatinine has improved and currently 1.25 today. 3. DVT Prophylaxis: Take 81 mg aspirin twice daily for 4 weeks postoperatively for DVT prophylaxis. Patient denies past history of DVT or pulmonary embolism 4. PT/OT: Weightbearing as tolerated with walker. Appreciate recommendations from physical therapy. There are concerns with patient's ability to recover as he has chronic neurologic deficit on the right lower extremity with foot drop. Patient did have promising session with physical therapy this morning. He has been able to ambulate up and down the hallway. Patient remains concerned about stairs he has to navigate at home. 5. H & H: 9.08/09.5, patient does have hypoxia but is otherwise asymptomatic. Patient is currently on ferrous sulfate and folic acid. Will repeat CBC tomorrow. 6. Continue postoperative medical management per medicine: 7. Currently on doxycycline for 2 weeks postoperatively due to elevated BMI greater than 40.0. I discussed with the patient potential side effects of doxycycline including sensitivity to the sunlight and increased risk of skin burn. Recommend patient take appropriate precautions. Also recommend patient to take probiotic while on the antibiotic. Patient voiced understanding agreement. 8. Hypoxia: Patient did have chest x-ray which was found for atelectasis. Aerosol treatments have been initiated and encouraging incentive spirometer. Patient is now on 3 L of nasal oxygen. Patient has been advised upon discharge working up for underlying sleep apnea. Appreciate further recommendations from medicine 9. Disposition: Case management is currently involved with appropriate discharge planning. Patient's current situation on his left knee is under Worker's Comp. Due to patient's morbid obesity, chronic neurologic deficits on the right, and not enough assistance at home there is concern for discharge home. Patient's was at bedside today. Patient continues to complain of increased pain and concern for stairs upon going home. I did explain to him that I would not recommend increasing any of the narcotic due to his current hypoxia. Continue to appreciate recommendations from physical therapy. Due to the holiday weekend we may not be able to determine discharge planning until Wednesday. Patient will continue with above medications. Appreciate recommendations from medicine. I have reviewed the [place] Automated Rx Reporting System (OARRS) report for this patient for refill pattern and other prescriber involvement as part of the appropriate surveillance for the provision of acute and chronic controlled medications. The report was requested and reviewed on the date of this entry and was considered in the prescribing process. This dictation was created using voice recognition software. Phonetic and/or grammatical errors may exist. (2) Chronic venous insufficiency: PLAN: Can affect wound healing and outcome. Will monitor, medical consultation (3) Obesity, morbid: PLAN: Can affect postoperative outcome. Medical consultation placed (4) Hypoxia: PLAN: Discussed with medicine team will begin hypoxia workup today. 08/28/23 1221 <Electronically signed by Uriel MARQUEZ PA-C> Cosigner Signature (if applicable): CC: ~ Signed [facility] Work Phone: 1(600) 291-113902-16-2024 Progress note Author Haroldo Ruiz [facility] August 27, 2023 6:11pm Note Date/Time August 27, 2023 6:12pm [facility] Medical Records Department [address] [place] [address] Progress Note - Hospitalist 08/27/23 1808 MR#: [id number] Acct: [id number] Name: KHOA CONNORS Jr. Rep #:[id number] : 1960 62 From: Haroldo Ruiz DO PCP: Dr. Angelic Monsalve MD Status:ADM IN [facility] Reason for Visit Reason for Visit: Diagnoses Morbid (severe) obesity due to excess calories (08/25/23) Venous insufficiency (chronic) (peripheral) (08/25/23) Unilateral primary osteoarthritis, left knee (08/25/23) Hypoxemia (08/25/23) Presence of left artificial knee joint (08/25/23) Subjective Subjective Patient was seen and examined today, I talked with orthopedic surgery about his care, he required higher oxygen setting this morning to maintain his pulse ox, this afternoon he was on 3 L. Patient had a chest x-ray performed today which showed a small left pleural effusion and evidence of atelectasis. I placed patient on aerosol treatments and gave him 1 dose of Lasix-patient refused to take the Lasix however. Patient's creatinine today was 1.92, his hemoglobin was9.2 Objective Data Objective Data Vital Signs: Vital Signs Temp Pulse Resp BP Pulse Ox O2 Del Method O2 Flow Rate 98.2 F 86 18 148/84 H 96 Nasal Cannula 3 08/27/23 15:00 08/27/23 15:00 08/27/23 15:00 08/27/23 15:00 08/27/23 15:08/27/23 16:41 08/27/23 16:41 Oxygen Flow Rate (L/min) 3 Oxygen Delivery Method Nasal Cannula Weight: 160 kg Body Mass Index (BMI) 41.8 Intake & Output: Intake and Output for Last 24 Hours 02/08/26/23 08/27/23 23:59 23:59 23:59 Intake Total 3537 / 3537 1150 / 1150 Output Total 450 / 450 250 / 250 Balance 3537 / 3287 700 / 700 -250 / -250 Lab / Micro Data 08/27/23 06:30 08/27/23 06:30 Labs: Laboratory Results - last 24 hr 08/27/23 06:30: WBC 4.3 L, RBC 2.92 L, Hgb 9.2 L, Hct 30.6 L, MCV 104.8 H, MCH 31.5, MCHC 30.1 L, RDW Std Deviation 56.8 H, RDW Coeff of Tan 14.7 H, Plt Count 76 L, MPV 10.0, Differential Comment SCANNED, Sodium 141, Potassium 5.1, Chloride 110 H, Carbon Dioxide 29.0, Anion Gap 2 L, BUN 59 H, Creatinine 1.92 H,Estim Creat Clear Calc 64.58, Est GFR (MDRD) Af Amer 45 L, Est GFR (MDRD) Non-Af38 L, BUN/Creatinine Ratio 30.7 H, Glucose 189 H, Calcium 8.4 L Radiography Diagnostic Testing: Radiology Impression Chest X-Ray 08/27/23 10:35 IMPRESSION: Atelectasis and/or early infiltrate in the medial aspect of the left lower lobe with blunting of the left costophrenic angle. Electronically Signed: Luis Manuel Nelson MD at 11:14 EST Reading Location ID and State: [address] [place] [address] , Service support , Physical Exam Narrative alert, oriented x3 and no apparent distress Constitutional Narrative: Patient is morbidly obese General Appearance: cooperative, well kempt and well developed Orientation / Consciousness: awake, oriented to person, oriented to place and oriented to time HEENT normocephalic, head/scalp atraumatic and moist oral mucous membranes Eyes PERRL, EOMs intact bilaterally and conjunctivae normal Neck supple, no JVD, thyroid normal and no carotid bruits General: trachea midline Resp normal respiratory effort, no retractions, no use of accessory muscles and clearto auscultation bilaterally Auscultation: Negative for rales, rhonchi or wheezes Cardio regular rate, regular rhythm, S1 normal heart sound, S2 normal heart sound, no murmurs, no rub and no gallops GI normal to inspection, nondistended, normoactive bowel sounds, soft to palpation,non-tender and non-distended Extremity no clubbing, cyanosis or edema Skin no rashes or lesions noted General Skin Exam: no breakdown Neuro oriented x3 and CN's II-XII intact bilaterally Sensorium / Orientation: awake and alert Speech: speech normal Psych affect normal Assessment & Plan Assessment/Plan (1) Status post total left knee replacement: PLAN: Plan 1. Type 2 diabetes-patient is currently diet controlled and is not on any medications. #2 morbid obesity-complicates care, medical course, recovery, and prognosis #3 osteoarthritis of the left knee-postop day #1 left total knee replacement, PTand OT are seeing patient, orthopedic surgery is participating in his care #4 hypoxia-secondary to atelectasis, again patient was placed on aerosol treatments and encouraged to use incentive spirometry #5 elevated creatinine-patient's labs will be rechecked tomorrow Total clinical time spent by myself addressing the patient's medical issues, reviewing all of his data, and collaborating with patient's care team: 25-minute Charges/Coding Visit Charges Inpatient E&M: 61859 Subs Hosp L1 08/27/23 181 <Electronically signed by Haroldo Ruiz DO> Cosigner Signature (if applicable): CC: ~ Signed [facility] Work Phone: [phone]) 166-525102-16-2024 Progress note Author Daryl Luz [facility] August 27, 2023 10:07am Note Date/Time August 27, 2023 10:00am [facility] Medical Records Department [address] [facility] [place] [address] Progress Note - Orthopedic 08/27/23 0959 MR#: [id number] Acct: [id number] Name: KHOA CONNORS Jr. Rep #:[id number] : 1960 62 From: Daryl Parmar PCP: Dr. Angelic Monsalve MD Status:ADM IN Location: MS3 [id number] Subjective Subjective Patient doing well overall. Reports pain is 7.5 out of 10 with ambulation. Does have good range of motion with physical therapy. Been able to walk down the hallway with physical therapy. Doing transfers this morning with physical therapy. No acute events overnight. However, he does remain on 4 L of oxygen this morning. Otherwise has been medically stable. No chest pain or shortness of breath. No dizziness or lightheadedness. Objective Data Objective Data Vital Signs: Vital Signs Temp Pulse Resp BP Pulse Ox O2 Del Method O2 Flow Rate 98 F 86 18 117/59 L 94 High Flow 4 08/27/23 08:31 08/27/23 08:31 08/27/23 08:31 08/27/23 08:31 08/27/23 08:31 08/27/23 08:35 08/27/23 08:35 Oxygen Flow Rate (L/min) 4 Oxygen Delivery Method High Flow Weight: 352 lb 11.834 oz Body Mass Index (BMI) 41.8 Intake & Output: Intake and Output for Last 24 Hours 08/25/23 08/26/23 08/27/23 23:59 23:59 23:59 Intake Total 3537 / 3537 1150 / 1150 Output Total 450 / 450 250 / 250 Balance 3537 / 3287 700 / 700 -250 / -250 Lab / Micro Data Attestation: I reviewed the patient's lab results. 08/27/23 06:30 08/27/23 06:30 Labs: Laboratory Results - last 24 hr 08/26/23 10:55: Sodium 139, Potassium 5.3 H, Chloride 109 H, Carbon Dioxide 28.0, Anion Gap 2 L, BUN 37 H, Creatinine 1.91 H, Estim Creat Clear Calc 64.91, Est GFR (MDRD) Af Amer 46 L, Est GFR (MDRD) Non-Af 38 L, BUN/Creatinine Ratio 19.4, Glucose 174 H, Calcium 8.5 08/27/23 06:30: WBC 4.3 L, RBC 2.92 L, Hgb 9.2 L, Hct 30.6 L, MCV 104.8 H, MCH 31.5, MCHC 30.1 L, RDW Std Deviation 56.8 H, RDW Coeff of Tan 14.7 H, Plt Count 76 L, MPV 10.0, Differential Comment SCANNED, Sodium 141, Potassium 5.1, Chloride 110 H, Carbon Dioxide 29.0, Anion Gap 2 L, BUN 59 H, Creatinine 1.92 H,Estim Creat Clear Calc 64.58, Est GFR (MDRD) Af Amer 45 L, Est GFR (MDRD) Non-Af38 L, BUN/Creatinine Ratio 30.7 H, Glucose 189 H, Calcium 8.4 L Physical Exam Narrative Left lower extremity: Dressing is clean dry and intact Sensations intact to light touch saphenous, sural, superficial peroneal, deep peroneal, and tibial distributions Motors intact EHL, DF, PF calves are soft and supple Const alert, oriented x3 and no apparent distress Assessment & Plan Assessment/Plan (1) Status post total left knee replacement: PLAN: 1. S/P left total knee arthroplasty POD #2 2. Continue Pain Medications: Tylenol, oxycodone. Meloxicam discontinued due to increase in BUN and creatinine 3. DVT Prophylaxis: Take 81 mg aspirin twice daily for 4 weeks postoperatively for DVT prophylaxis. Patient denies past history of DVT or pulmonary embolism 4. PT/OT: Weightbearing as tolerated with walker. Appreciate recommendations from physical therapy. There are concerns with patient's ability to recover as he has chronic neurologic deficit on the right lower extremity with foot drop. Patient did have promising session with physical therapy this morning. He has been able to ambulate up and down the hallway. Patient remains concerned about stairs he has to navigate at home. 5. H & H: 9..6, patient does have hypoxia but is otherwise asymptomatic. Monitoring patient's hemoglobin and hematocrit with postoperative anemia withoutany intra operative complications. At this time no treatment is required. 6. Continue postoperative medical management per medicine: Case was discussed with medicine and they are going to repeat patient's BMP. Hyperkalemia is resolving. Patient's BUN and creatinine did again increase. Meloxicam will be discontinued 7. Currently on doxycycline for 2 weeks postoperatively due to elevated BMI greater than 40.0. I discussed with the patient potential side effects of doxycycline including sensitivity to the sunlight and increased risk of skin burn. Recommend patient take appropriate precautions. Also recommend patient to take probiotic while on the antibiotic. Patient voiced understanding agreement. 8. Hypoxia: Case was discussed with the medical team. They will begin hypoxia workup today. There is some concern for sleep apnea and chronic conditions. Hewas not on oxygen at home. Will continue to encourage incentive spirometry. Will remain in contact with medical team. 9. Disposition: Case management is currently involved with appropriate discharge planning. Patient's current situation on his left knee is under Worker's Comp. Due to patient's morbid obesity, chronic neurologic deficits on the right, and not enough assistance at home there is concern for discharge home. Patient's was at bedside today and after watching therapy did feel slightly more comfortable with considering home discharge however at this point there is still considerable concern for falls based on the need to navigate a number of stairs at home and his right lower extremity neurologic deficits. Appreciate recommendations from physical therapy. Patient will continue with above medications. Appreciate recommendations from medicine. I also had discussion with patient and his with his suspected sleep apnea. I highly recommended he follow-up with his primary care physician for appropriate workup upon discharge. They both voiced understanding. [facility] Office: This dictation was created using voice recognition software. Phonetic and/or grammatical errors may exist. (2) Chronic venous insufficiency: PLAN: Can affect wound healing and outcome. Will monitor, medical consultation (3) Obesity, morbid: PLAN: Can affect postoperative outcome. Medical consultation placed (4) Hypoxia: PLAN: Discussed with medicine team will begin hypoxia workup today. 08/27/23 1007 <Electronically signed by Daryl Luz MD> Cosigner Signature (if applicable): CC: ~ Signed [facility] Work Phone: 1(183) 335-797902-15-2024 Progress note Author [facility]o [facility] August 26, 2023 5:26pm Note Date/Time August 26, 2023 5:26pm [facility] Medical Records Department [address] [place] [address] Progress Note - Hospitalist 08/26/23 1720 MR#: [id number] Acct: [id number] Name: KHOA CONNORS Jr. Rep #:[id number] : 1960 62 From: Haroldo Ruiz DO PCP: Dr. Angelic Monsalve MD Status:ADM IN Location: [facility] [id number] Reason for Visit Reason for Visit: Diagnoses Morbid (severe) obesity due to excess calories (08/25/23) Venous insufficiency (chronic) (peripheral) (08/25/23) Unilateral primary osteoarthritis, left knee (08/25/23) Presence of left artificial knee joint (08/25/23) Subjective Subjective Patient was seen and examined today, I talked briefly with orthopedic surgery about his care. Patient will need placement at least short-term and [facility] services, because he is Workmen's Comp., this may take longer. Patient's potassium was slightly elevated this morning, I do not have a reason why, patient's creatinine is 1.9 today, I have encouraged him to drink more fluid and I will recheck his lab tomorrow. Objective Data Objective Data Vital Signs: Vital Signs Temp Pulse Resp BP Pulse Ox O2 Del Method O2 Flow Rate 97.9 F 88 18 126/66 H 94 Nasal Cannula 5 08/26/23 15:18 08/26/23 15:18 08/26/23 15:18 08/26/23 15:18 08/26/23 15:18 08/26/23 15:18 08/26/23 15:18 Oxygen Flow Rate (L/min) 5 Oxygen Delivery Method Nasal Cannula Weight: 160 kg Body Mass Index (BMI) 41.8 Intake & Output: Intake and Output for Last 24 Hours 08/24/23 08/25/23 08/26/23 23:59 23:59 23:59 Intake Total 3537 / 3537 850 / 850 Output Total 450 / 450 Balance 3537 / 3287 400 / 400 Lab / Micro Data 08/26/23 06:43 08/26/23 10:55 Labs: Laboratory Results - last 24 hr 08/26/23 06:43: WBC 7.5, RBC 3.16 L, Hgb 10.3 L, Hct 33.1 L, MCV 104.7 H, MCH 32.6 H, MCHC 31.1 L, RDW Std Deviation 57.0 H, RDW Coeff of Tan 14.6, Plt Count 109 L, MPV 10.6, Sodium 141, Potassium 5.7 H, Chloride 110 H, Carbon Dioxide 28.0, Anion Gap 3 L, BUN 34 H, Creatinine 1.50 H, Estim Creat Clear Calc 82.66, Est GFR (MDRD) Af Amer 60, Est GFR (MDRD) Non-Af 50 L, BUN/Creatinine Ratio 22.7H, Glucose 218 H, Calcium 8.3 L 08/26/23 10:55: Sodium 139, Potassium 5.3 H, Chloride 109 H, Carbon Dioxide 28.0, Anion Gap 2 L, BUN 37 H, Creatinine 1.91 H, Estim Creat Clear Calc 64.91, Est GFR (MDRD) Af Amer 46 L, Est GFR (MDRD) Non-Af 38 L, BUN/Creatinine Ratio 19.4, Glucose 174 H, Calcium 8.5 Physical Exam Const alert, oriented x3 and no apparent distress Constitutional Narrative: Patient is morbidly obese General Appearance: cooperative, well kempt and well developed Orientation / Consciousness: awake, oriented to person, oriented to place and oriented to time HEENT normocephalic, head/scalp atraumatic and moist oral mucous membranes Eyes PERRL, EOMs intact bilaterally and conjunctivae normal Neck supple, no JVD, thyroid normal and no carotid bruits General: trachea midline Resp normal respiratory effort, no retractions, no use of accessory muscles and clearto auscultation bilaterally Auscultation: Negative for rales, rhonchi or wheezes Cardio regular rate, regular rhythm, S1 normal heart sound, S2 normal heart sound, no murmurs, no rub and no gallops GI normal to inspection, nondistended, normoactive bowel sounds, soft to palpation,non-tender and non-distended Extremity no clubbing, cyanosis or edema Skin no rashes or lesions noted General Skin Exam: no breakdown Neuro oriented x3 and CN's II-XII intact bilaterally Sensorium / Orientation: awake and alert Speech: speech normal Psych affect normal Assessment & Plan Assessment/Plan (1) Status post total left knee replacement: PLAN: Plan 1. Type 2 diabetes-patient is currently diet controlled and is not on any medications. #2 morbid obesity-complicates care, medical course, recovery, and prognosis #3 osteoarthritis of the left knee-postop day #1 left total knee replacement, PTand OT are seeing patient, orthopedic surgery is participating in his care #4 hypoxia-etiology unclear at this time, patient is currently on nasal cannula oxygen, oxygen will be weaned if possible #5 elevated creatinine-patient's labs will be rechecked tomorrow Total clinical time spent by myself addressing the patient's medical issues, reviewing all of his data, and collaborating with patient's care team: 25-minute Charges/Coding Visit Charges Inpatient E&M: 81209 Subs Hosp L1 08/26/23 1726 <Electronically signed by Haroldo Ruiz DO> Cosigner Signature (if applicable): CC: ~ Signed [facility] Work Phone: [phone]) 679-422202-15-2024 Progress note Author Uriel Linder [facility] August 26, 2023 10:56am Note Date/Time August 26, 2023 10:56am [facility] Medical Records Department [address] [place] [address] Progress Note - Orthopedic 08/26/23 1050 MR#: [id number] Acct: [id number] Name: KHOA CONNORS Rep #:[id number] : 1960 62 From: Uriel MARQUEZ PA-C PCP: Dr. Angelic Monsalve MD Status:ADM IN Location: [facility] [id number] Subjective Subjective The patient was sitting in bed upon examination with his present. Patient denies any chest pain, shortness of breath, dizziness, lightheadedness, nausea or vomiting, or calf pain. Patient states he has increased pain with his left knee but medications are helpful. He has been on 5 L nasal oxygen overnight. Patient has suspected sleep apnea in which he is aware this is an outpatient workup in which she may require CPAP machine. He has not had any discussion with his primary care physician. Patient has continued today on nasal oxygen. He has had some elevated blood pressure. Patient does have history of spine injury in which she has chronic neurologic deficit on the right lower extremity with atrophy and foot drop. Objective Data Objective Data Vital Signs: Vital Signs Temp Pulse Resp BP Pulse Ox O2 Del Method O2 Flow Rate 97.9 F 87 18 148/110 H 93 High Flow 5 08/26/23 10:08/26/23 10:08/26/23 10:08/26/23 10:08/26/23 10:08/26/23 10:08/26/23 10:00 Oxygen Flow Rate (L/min) 5 Oxygen Delivery Method High Flow Weight: 160 kg Body Mass Index (BMI) 41.8 Intake & Output: Intake and Output for Last 24 Hours 08/24/23 08/25/23 08/26/23 23:59 23:59 23:59 Intake Total 3537 / 3537 50 / 50 Output Total 450 / 450 Balance 3537 / 3287 -400 / -400 Lab / Micro Data 08/26/23 06:43 08/26/23 06:43 Labs: Laboratory Results - last 24 hr 08/25/23 14:02: POC Glucose 164 H 08/26/23 06:43: WBC 7.5, RBC 3.16 L, Hgb 10.3 L, Hct 33.1 L, MCV 104.7 H, MCH 32.6 H, MCHC 31.1 L, RDW Std Deviation 57.0 H, RDW Coeff of Tan 14.6, Plt Count 109 L, MPV 10.6, Sodium 141, Potassium 5.7 H, Chloride 110 H, Carbon Dioxide 28.0, Anion Gap 3 L, BUN 34 H, Creatinine 1.50 H, Estim Creat Clear Calc 82.66, Est GFR (MDRD) Af Amer 60, Est GFR (MDRD) Non-Af 50 L, BUN/Creatinine Ratio 22.7H, Glucose 218 H, Calcium 8.3 L Radiography Diagnostic Testing: Radiology Impression Knee X-Ray 08/25/23 02:03 IMPRESSION: Status post total knee replacement. There is good alignment. Postoperative soft tissue changes. Electronically Signed: Luis Manuel Nelson MD at 14:24 EST , Physical Exam Narrative Vital signs stable and afebrile. Patient currently on nasal oxygen, he does have elevated blood pressure. SCDs and LOR hose are in place bilaterally Patient is able to plantarflex and dorsiflex actively on the left. Patient has history of foot drop on the right and is unable to dorsiflex. Sensation is intact to light touch to saphenous, sural, superficial and deep peroneal, and tibial distribution on the left with some decrease sensation on the right Dressings are clean dry and intact. Negative Homans bilaterally, negative signs and symptoms of DVT. Const alert, oriented x3 and no apparent distress Assessment & Plan Assessment/Plan (1) Status post total left knee replacement: PLAN: 1. S/P left total knee arthroplasty POD #1 2. Continue Pain Medications: Tylenol, meloxicam, oxycodone. Do not take any other nonsteroidal anti-inflammatories while using meloxicam/Mobic. 3. DVT Prophylaxis: Take 81 mg aspirin twice daily for 4 weeks postoperatively for DVT prophylaxis. Patient denies past history of DVT or pulmonary embolism 4. PT/OT: Weightbearing as tolerated with walker. Appreciate recommendations from physical therapy. There are concerns with patient's ability to recover as he has chronic neurologic deficit on the right lower extremity with foot drop. 5. H & H: 10.3/33.1, asymptomatic. Monitoring patient's hemoglobin and hematocrit with postoperative anemia without any intra operative complications. At this time no treatment is required. 6. Continue postoperative medical management per medicine: Case was discussed with medicine and they are going to repeat patient's BMP. There is been hyperkalemia on the morning lab work and slight elevation in his creatinine at 1.5. Preoperatively he was at 0.94. 7. Currently on doxycycline for 2 weeks postoperatively due to elevated BMI greater than 40.0. I discussed with the patient potential side effects of doxycycline including sensitivity to the sunlight and increased risk of skin burn. Recommend patient take appropriate precautions. Also recommend patient to take probiotic while on the antibiotic. Patient voiced understanding agreement. 8. Encouraged Incentive Spirometry 9. Disposition: Case management is currently involved with appropriate discharge planning. Patient's current situation on his left knee is under Worker's Comp. Due to patient's morbid obesity, chronic neurologic deficits on the right, and not enough assistance at home there is concern for discharge home. Appreciate recommendations from physical therapy. Patient will continue with above medications. Appreciate recommendations from medicine. I also had discussion with patient and his with his suspected sleep apnea. I highly recommended he follow-up with his primary care physician for appropriate workup upon discharge. They both voiced understanding. I have reviewed the [place] Automated Rx Reporting System (OARRS) report for this patient for refill pattern and other prescriber involvement as part of the appropriate surveillance for the provision of acute and chronic controlled medications. The report was requested and reviewed on the date of this entry and was considered in the prescribing process. This dictation was created using voice recognition software. Phonetic and/or grammatical errors may exist. (2) Chronic venous insufficiency: (3) Obesity, morbid: 08/26/23 1056 <Electronically signed by Uriel MARQUEZ PA-C> Cosigner Signature (if applicable): CC: ~ Signed [facility] Work Phone: [phone]) [phone] Progress note Author Sera Byrd [facility] August 25, 2023 5:25pm Note Date/Time August 25, 2023 1:21pm [facility] Medical Records Department [address] [place] [address] Progress Note - Hospitalist 08/25/23 1314 MR#: [id number] Acct: [id number] Name: KHOA CONNORS Jr. Rep #:[id number] : 1960 62 From: Sera Byrd DO PCP: Dr. Angelic Monsalve MD Status:ADM IN Location: [facility] [id number] Reason for Visit Reason for Visit: Left knee osteoarthritis Subjective Subjective Mr. Connors is a 62-year-old white male who presented to [facility] on 08/25/2023 for a left minimally invasive robotic assisted total knee arthroplasty with Dr. Luz. Patient has had ongoing pain for the last 3 to 4 years and had surgery scheduled for September 2022 but it was canceled secondary to low nutritional markers and an elevated hemoglobin A1c since, the patient has been working with a dietitian for appropriate nutritional optimization and it was felt appropriate to move forward with a surgical plan for intervention. Thepatient continued to have constant pain in the left knee that was increased withADLs and IADLs. He had failed outpatient conservative managements including medications, injections, and physical therapy. Preoperative hemoglobin A1c was 6.7 and it does not appear that he is on any chronic medications for diabetes and is working on diet control for his diabetes. His past medical history consist of DM-2, BPH with obstruction, pernicious anemia, B12 deficiency, and morbid obesity. We have been consulted postoperatively for medical management of his chronic medical issues and any arising postoperative medical issues. Patient was seen and evaluated postoperatively on the medical floor following his surgery. Patient is complaining of 10 out of 10 pain however is falling asleep during my conversation with him. He does desat when he sleeps despite supplemental oxygen and I suspect he has pretty significant sleep apnea. He denies ever being tested and states he does not think he could wear a mask. I did discuss with him the importance of being tested and being treated if possible as there are multiple comorbidities that are associated with untreated sleep apnea. He fell asleep during my conversation. Objective Data Objective Data Vital Signs: Vital Signs Temp Pulse Resp BP Pulse Ox O2 Del Method 98.4 F 84 16 147/75 H 95 Room Air 08/25/23 09:16 08/25/23 09:16 08/25/23 09:16 08/25/23 09:16 08/25/23 09:16 08/25/23 09:16 Oxygen Delivery Method Room Air Weight: 160 kg Body Mass Index (BMI) 41.8 Intake & Output: Intake and Output for Last 24 Hours 08/23/23 08/24/23 08/25/23 23:59 23:59 23:59 Intake Total 335 / 335 Balance 335 / 335 Lab / Micro Data Labs: Laboratory Results - last 24 hr 08/25/23 09:14: POC Glucose 152 H Physical Exam Const oriented x3, no apparent distress and well nourished; Negative for average body habitus or healthy appearing Constitutional Narrative: Super morbidly obese, white male, lying in bed, complaining of 10 out of 10 painbut intermittently falling asleep during my conversation, currently appears comfortable nontoxic, nursing at bedside HEENT head/scalp atraumatic, moist oral mucous membranes and oropharynx normal HEENT Narrative: Mallampati 4, no thrush Resp normal respiratory effort, no retractions, no use of accessory muscles and clearto auscultation bilaterally Resp Narrative: Distant breath sounds due to body habitus Auscultation: Negative for rales, rhonchi or wheezes Cardio regular rate, regular rhythm, S1 normal heart sound, S2 normal heart sound, no murmurs, no rub, no gallops and no clicks Cardio Narrative: Distant heart tones due to body habitus GI normal to inspection, nondistended, normoactive bowel sounds, soft to palpation and non-tender GI Narrative: Large protuberant abdomen Extremity no clubbing, cyanosis or edema Extremity Narrative: 2+ pedal pulses, postop LOR hose in place Neuro oriented x3 and no focal motor deficits Speech: speech normal Assessment & Plan Assessment/Plan (1) Osteoarthritis of left knee: PLAN: Plan Osteoarthritis of left knee -Postop day 0 left total knee arthroplasty-minimally invasive and robotic assisted -Patient management per primary service -Would recommend scheduled bowel regimen while on narcotics and having decreasedmobility -Doxycycline 100 mg p.o. twice daily for postop antibiotics due to his elevated BMI -PT/OT -Follow-up in orthopedic surgery office in 2 weeks for wound check and postoperative imaging that needs to occur DM-2 -Preoperative hemoglobin A1c was 6.7 -Patient is not on any chronic medications for this -May have some elevated blood sugars postoperatively due to systemic stress -If blood sugars are markedly elevated could consider sliding scale however would just recommend carb controlled diet at this time BPH with obstruction -Patient is currently not any medications for BPH -Will give Flomax 1 time tonight given postoperative anesthesia complications with BPH -Monitor urine output Pernicious anemia/B12 deficiency -Continue home B12 injections post discharge Suspected sleep apnea -Patient states he is never formally been through a sleep study and does not think he can wear a mask -I did advise that he should be tested and try to be compliant if possible as there are multiple comorbidities that are directly related to untreated sleep apnea. -Will continue oxygen supplementation while patient is sleeping however do anticipate oxygen desaturations while he is sleeping -My biggest concern would be that if his mental status decreased I would obtain an ABG to rule out hypercapnia related to his sleep apnea. He is likely chronically hypoxic at home while he sleeps Morbid obesity -BMI is 41.8 -Recommend weight loss -Complicates treatment, prognosis, outcomes -Would recommend patient be evaluated for obstructive sleep apnea if he has not previously done so. DVT prophylaxis -Aspirin 81 mg twice daily and thigh-high Lor hose compression stockings Charges/Coding Visit Charges Inpatient E&M: 23599 Subs Hosp L2 08/25/23 1725 <Electronically signed by Sera Byrd DO> Deepaigner Signature (if applicable): CC: ~ Signed [facility] Work Phone: 1(898) 598-563602-14-2024 Procedure [facility] 08-25-2023 History and physical note Author Daryl Luz [facility] August 25, 2023 10:12am Note Date/Time August 19, 2023 2 :28pm [facility] Medical Records Department [address] [place] [address] History & Physical Exam 08/19/23 1427 MR#: [id number] Acct: [id number] Name: KHOA CONNORS Jr. Rep #:[id number] : 1960 62 From: Uriel MARQUEZ PA-C PCP: Dr. Angelic Monsalve MD Status:ADM IN Location: [facility] A History and Physical History and Physical? Patient Name: Khoa Connors : 1960 From:? URIEL LINDER PA-C? DATE OF PRE-OPERATIVE EXAM: 08/18/2023 DATE OF SURGERY:? 08/25/2023 SCHEDULED PROCEDURE:? Left total knee arthroplasty HISTORY OF PRESENT ILLNESS: Preoperative history and physical exam was performed on August 18, 2023.? This is a 62-year-old male who has been having ongoing pain for 3-4 years.? Patient had surgery scheduled for September 2022 but was canceled secondary to low nutritionmarkers and elevated A1c.? Patient has been working in the past with dietitian for appropriate optimization.? Since he has had sufficient amount of time with optimization Dr. Daryl Luz fell appropriate to move forward with surgical intervention.? Patient continues to have constant pain which is aching and sore with the left knee.? He has increased pain going up and down stairs, sitting andwalking.? He had a previous injury at work when he fell directly on the knee.? Patient has difficulty with activities of daily living including bathing/showering, getting dressed, housework, shopping and leisure activities.?Pain is over the medial and lateral knee.? He has tried previous oral medications including Tylenol and nonsteroidal anti-inflammatories without relief.? He has been through previous physical therapy and home exercises without relief.? Patient has attempted corticosteroid injections with no relief.? Hehas obtain surgical clearance from the primary care provider.? His A1c is currently 6.7.? Patient has had previous injury to his lumbar spine which has caused neurologic deficits on the right lower extremity and atrophy.? He continues to use a walker and cane.? He has attempted a brace in the past.? After failing conservative measures and discussing all treatment options with Dr. Daryl Luz, the patient does wish to proceed with a left total knee arthroplasty.? Patient has medical history pertinent for type 2 diabetes mellitus, enlarged prostate, pernicious anemia, vitamin B12 deficiency and nocturia.? He denies previous history of DVT or pulmonary embolism.? He has had previous spine fusion.? He denies any recent chest pain, shortness of breath, fevers chills or recent infections.? Patient does report that he gets vitamin B12 shots every 12 weeks. Patient does have previous chronic neurologic deficits on the right lower extremity and has a RAPT Score of 6/12 which puts him at likely need for inpatient care after surgical intervention.? Patient is unable to provide adequate care at home due to her own medical problems. REVIEW OF SYSTEMS: Review Of Systems: Constitutional: Denies change in appetite, fever and weight change. Cardiovasular: Denies chest pain, heart murmur and irregular heartbeat. Respiratory: Denies cough, pneumonia, shortness of breath, tuberculosis and wheezing. Gastrointestinal: Denies constipation, diarrhea, heartburn, nausea, rectal itching, bloody stools and vomiting. Genitourinary: Denies incontinence. Musculoskeletal: Reports ambulatory dysfunction, trouble walking and weakness, but denies leg swelling and pain. Skin: Denies Raynaud's, history of shingles and tattoo. Neurological: Reports ambulatory dysfunction and numbness/tingling but denies dizziness and tremor. Psychiatric: Reports stress, but denies anxiety and insomnia. Hematologic/Lymphatic: Reports anemia, but denies bleeding/bruising tendency andpast transfusion. Reviewed and updated. PAST MEDICAL HISTORY: Advance Care Plan: No Advance Directives Effective Date: 10/27/2021 Past Medical History: Medical Problems: Diabetes, Enlarged Prostate, Pernicious Anemia, B12 deficiency nocturia -? urinary tract disease? Accidents: Fracture - T-12 COMP FRACTURE - [facility] 10/30/19 Other - SHOULDER & KNEE 05/30 Surgical Hx: Detached Retina - 2021 [facility] / EYE Cataracts - (2021) LT EYE Laser Surgery - (08/2022) TO REMOVE SCAR TISSUE / LEFT EYE? Coloscopy - BIOPSIED STOMACH FOUND OUT PATIENT HAS PERNICIOUS ANEMIA? lumbar fusion for fx - (10/2019) T12? endoscopy - (04/2023) Anesthesia Complications: None Assistive Devices: Walker, Cane, Glasses Reviewed and updated. SOCIAL HISTORY: Social History: Marital: .Occupation: Unemployed.Work Status: Injured - OFF WORK SINCE 4-19.Hand Dominance: Right-handed. Personal Habits:? Cigarette Use: Never Smoked Cigarettes.Smokeless Tobacco: Never Used Smokeless Tobacco.E-Cigarette Use: Never used.Alcohol: Denies use.Drug Use: Denies Use.Enjoy Exercising: Exercises 1-3 x/month. Reviewed and updated. VITALS: Ht: 76.6 Wt: 355lb 0oz Wt k.028 BMI: 42.5 BP: 156/88 Pulse: 98 Resp: 20 T: 97.8 T: 36.6C Pain Level: 7 O2SatR: 94 ALLERGIES: Gabapentin? MEDICATIONS: Ferrous Sulfate 325 (65 Fe) MG 1 po tid, Folic Acid 1 mg 1 by mouth every day PRE-OP EXAM:? General appearance:NORMAL? ? ? Other: Eyes: Conjunctivae and lids: NORMAL? Pupils: ERR Ears, Nose, Mouth, and Throat: NORMAL? Other: Inspection of lips, teeth and gums: NORMAL? ?Other: Neck: Examination of neck: no masses noted. Respiratory: Assessment of respiratory effort: NORMAL? ?Other: ?Auscultation of lungs: clear to auscultation no wheezes, rhonchi or rales. Cardiovascular:? Auscultation of heart: regular rate and rhythm, positive systolic murmur PHYSICAL EXAMINATION: Patient does walk with an antalgic gait with use of walker.? Patient does have valgus alignment with the knee.? Moderate effusion.? He has tenderness to palpation of the medial and lateral joint line.? He has valgus deformity which is partially correctable.? Range of motion 0 extension to 105 flexion.? Sensation intact to light touch.? He does have lower leg skin discoloration fromprobable venous insufficiency. IMAGING STUDIES: Previous x-rays of the left knee reveal valgus alignment with lateral joint space narrowing, subchondral sclerosis, osteophyte formation consistent with severe stage IV bone on bone erosive osteoarthritis IMPRESSION: 1.? Severe left knee osteoarthritis with valgus deformity 2.? Type 2 diabetes mellitus: A1c 6.7 3.? Benign prostatic hyperplasia 4.? Pernicious anemia 5.? Vitamin B12 deficiency 6.? Nocturia 7.? Low back pain with neurologic deficit affecting right lower extremity 8.? Morbid obesity with BMI 42.5 PLAN: Dr. Daryl Luz did discuss and review with the patient all treatment options including surgical versus nonsurgical options.? Patient does wish to proceed with the above-stated procedure.? Potential risks, benefits, and complications of the procedure were discussed in detail including but not limited to , infection, nerve and blood vessel damage, persistent pain, numbness, tingling, paresthesias, blood clot, pulmonary embolism, and requirement for possible further surgery.? The patient expressed full understanding and has no further questions for the doctor.? Patient does agree to proceed with the above-stated procedure and has signed the surgery consent form. POST-OP MEDICATION PLAN: Pain Medications:? Dr. Daryl Luz will initiate postoperative pain regimen [facility].? Due to patient's elevated BMI greater than 40.0 we will also use doxycycline postoperatively.? Discussed with the patient potential side effects including hypersensitivity to some light and should take appropriate precaution.? Also recommended probiotic while on antibiotic.? Patient will continue with his ferrous sulfate and folic acid pre-and postoperatively. Risk Assessment and Prediction Tool (RAPT) Score = 12/21 DVT Prophylaxis:? Aspirin 81 mg twice daily for 4 weeks postoperatively.? Deniespast history of DVT or pulmonary embolism This dictation was created using voice recognition software. Phonetic and/or grammatical errors may exist. ___? I have re-examined the patient.? There are no clinical changes since date of exam. ___? See progress notes for changes. ___? Dictated on admission Date: ? ? ?Time: Signature: 08/19/23 1428 <Electronically signed by Uriel MARQUEZ PA-C> Cosigner Signature (if applicable): CC: RUBEN Linder; Dr. Angelic Monsalve MD; Dr. Daryl Luz MD~ Signed ADDENDUM by Dr. Daryl Luz MD on 08/25/23 at 1011 Addendum I have examined the patient and the H&P has been reviewed. There are no clinicalchanges since date of exam. I did discuss with the patient we have spent considerable t imeattempting to optimize his nutrition and weight, diabetes. Patient understands we have likely that the extent of his optimization we are electing to move forward with his current risk factors. 08/25/23 1011<Electronically signed by Daryl Luz MD> Cosigner Signature (if applicable): cc: RUBEN Linder; Dr. Angelic Monsalve MD; Dr. Daryl Luz MD ~* Signed [facility] Work Phone: 1(675) 700-149612-14-2023 History of Present illness Narrative* Meri Fisher V, MD - 06/24/2023 9:20 AM EST PROGRESS NOTE: Parts of the documentation for this note were completed by Marium Mitchell RN for Meri Fisher MD. June 24, 2023 9:20 AM. Khoa Connors Skyler is a 62 year old male here [...] fluorouracil, tamsulosin, ferrous sulfate, ketorolac, prednisolone acetate, cqyxxutp-jkkatvhck-kzukgkqudnuwc, atropine, ibuprofen, aspirin, atorvastatin, cyanocobalamin, gabapentin, lisinopril, metformin, cholecalciferol (vitamin d3), and guaifenesin. ALLERGIES Allergen Reactions Gabapentin Mental Status Change Pt also had hallucinations Latex I agree with the Chief Complaint, ROS, and Past Histories independently gathered by the clinical network diagnostic support specialist and the remaining scribed note accurately describes my personal service to the patient. Meri Fisher MD Dermatology documented in this [facility]Hol[facility]11[facility]23 Evaluation + Plan note Extracted from: Title:Clinical Document Author:JONG MASON Date:05/24/23 [facility] ADMISSION HISTORY AN D PHYSICIAL CHIEF COMPLAINT: [...] FAMILY HISTORY: SOCIAL HISTORY: PHYSICAL EXAM: VITALS: LodqcqUpbiLUSwrlrJOXwP5TSB4LaldCr(kg) 05/24 10:1236.8--186646--71/44835.5 24 Hr Tmax: 36.8 at 05/24 10:12 [...] changes to the H&P unless noted below. [facility] 11-13-2023 Hospital Discharge instructions Patient Education 05/24/2023 [...] 03/24/2005 Document Revised: 10/13/2018 Document Reviewed: 10/13/2018 [employer] Patient Education 2020 [email or web address]. 05/24/2023 11:37:09 Colonoscopy, Adult, Care After Colonoscopy, [...] a slower pace than normal. ?Eat soft, caae-qp-rrvcyy foods. Take jwqe-omi-aavfmrq or prescription medicines only as told by [...] 02/09/2005 Document Revised: 04/20/2018 Document Reviewed: 09/08/2016 [employer] Patient Education 2020 [email or web address]. 05/24/2023 11:37:03 Monitored Anesthesia Care, Care After [...] before eating solid foods. General instructions Take hdbv-gxd-zwtuarf and prescription medicines only as told by [...] 10/18/2016 Document Revised: 09/26/2018 Document Reviewed: 10/18/2016 [employer] Patient Education 2020 [email or web address]. Follow Up Care 04/14/2023 10:04:53 With:JONG MASON MD Address: [address] [facility] [address] [place] [address]- [phone] When: Unknown Comments:Follow-up as needed [facility] 11-13-2023 Summary of episode note Discharge Instructions Thank you for allowing [facility] to assist you with your healthcare needs. The following is importantdischarge information regarding your hospital visit. Your Care Team ANGELIC MONSALVE MD Your Diagnosis Colonoscopy What to do next Follow Up Appointments Follow Up with JONG MASON MD When Why: Follow-up as needed Where: [address] [facility] [address] [place], [place] [phone] [phone] The Following Activity and Diet Have Been [...] 03/24/2005 Document Revised: 10/13/2018 Document Reviewed: 10/13/2018 [employer] Patient Education 2020 [email or web address]. Colonoscopy, Adult, Care After This sheet gives [...] slower pace than normal. ? Eat soft, rwfm-cu-unxijv foods. Take zjhm-pry-uwdowju or prescription medicines only as told by [...] 02/09/2005 Document Revised: 04/20/2018 Document Reviewed: 09/08/2016 [employer] Patient Education 2020 [email or web address]. Monitored Anesthesia Care, Care After These instructions [...] before eating solid foods. General instructions Take ohnf-qpe-bimzayy and prescription medicines only as told by [...] 10/18/2016 Document Revised: 09/26/2018 Document Reviewed: 10/18/2016 [employer] Patient Education 2020 [email or web address]. Additional Information VACCINATE! IT SAVES LIVES! Members of the community who have not yet received the COVID-19 vaccine and would like to receive it can visit one of [facility] vaccine clinics. There are many vaccine clinic locations within the [facility]. For locations and available times, please visit [email or web address].[place].gov/. It is important to note that some COVID mobile vaccine clinics are held outdoors and may be canceled in rainy or stormy conditions. To learn more about pediatric vaccinations (ages 5-11), we invite you to visit the [facility] webpage. [email or web address]/[email or web address]-Fezmw-Fliucycrpgj-[email or web address]-Adywu-[email or web address] stions.htmlTo learn more about the COVID-19 vaccine, we invite you to visit the CDC website for a list of frequently asked questions.https://www.cdc.gov/coronavirus/2019-ncov/vaccines/faq.html [facility] Patient Portal Access Instructions: Stay connected with your healthcare team and access your personal medical information anytime with the [facility] Patient Portal. Please follow the directions below to create your [facility] [employer] account: 1.Access the email account you provided upon registration to the hospital/physician office.2.Look for an invitation email from [facility].3.Open the email and access the invitation link: [facility] to [facility].4.Fill in the required wylie to create your account. To access your account, visit [email or web address]. Click the blue button labeled Access Patient [...] who you will allowto register on the [facility] [employer] Patient Portal for access to your information. You can also access the [facility] Patient Portal on the [facility] [employer] kan. Simply click on Patient Portal and then log into your account. If you would like to receive a full copy of your medical records, please contact the [facility] Medical Records Department by calling [phone], Wednesday through Wednesday between 8 a.m. and [...] Call your local pharmacy or go to http://bit.ly/8H4Fa0r to find one close to you.3.Make use of household items: Use cat litter or old coffee grounds to dispose medications if other options arenot available. Mix your drugs with these household products, seal them in an airtight container andthrow it into the garbage. Call [facility]: [phone] to be sure your drugs can be [...] been reviewed and explained to me and IDORY PHILIP A understand my current condition and have read and understand these discharge instructions. I have received a written copy of the plan/instructions. If I have questions, I am aware that I should contact my doctor. Patient/Slip Cover Maker Signature: Date/Time: Relationship to Patient: Witness Name/Signature: Date/Time: [facility]11-13-2023 Anesthesiology Consult note Patient: KHOA CONNORS Age: 62 years Sex: Male : 1960 Associated Diagnoses: None Author: DUSTY CABRERA 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 CLERK-EMAIL MARKETING ASSISTANT Assessment Postanesthesia assessment Vitals: Vital signs from [...] by DUSTY CABRERA on 05/24/2023 11:22 AM [facility]11-13-2023 Anesthesiology Consult note Patient: KHOA CONNORS Age: [...] Signs(last 24 hrs) Last Charted Heart Rate Hoxiqwsgf68 bpm (MAY 24 10:45) Resp Rate 16 br/min (MAY 24 10:12) BOI748 mmHg (MAY 24 10:44) OMH916 mmHg (MAY 24 10:44) BMI40.38 (MAY 24 10:12) Measurements from flowsheet : Measurements 05/24/2023 10:12 EST Height 195.6 cm Admission Weight 154.5 kg Weight Method Stated [place] Body Weight 89.12 kg BSA Admission 2.8 [...] Lab results 05/24/2023 10:49 EST SN - IL - Medication simethicone 40 mg/0.6 mL Liquid 30mL SN - IL - Route of Administration Endoscopic SN - IL - By (Single) SN - IL - By (Single) SN - IL - Time Administered 05/24/2023 10:49 05/24/2023 10:46 [...] Respiratory Rate - Anes 0 br/min br/min [facility] History and Physical 05/24/2023 10:35 EST Respiratory [...] Surgeon SN - CAt - Role Performed Reptile Keeper 1 SN - CAt - Role Performed Ambulatory Services Representative SN - CAt - Role Performed EMAIL MARKETING ASSISTANT 05/24/2023 10:24 EST Lactated Ringers Injection Begin [...] EST Designated Person #1 We May Share REYNOLD Bartholomew [phone] Designated Person #1 Relationship Spouse Height 195.6 cm Admission Weight 154.5 kg Weight Method Stated [place] Body Weight 89.12 kg BSA Admission 2.8 [...] Method Explanation, Printed materials Preferred Spoken Language Serbian Preferred Written Language Serbian Information Given by Patient Patient's Current Physicians [...] Note-Nursing Procedure/Therapy Intake . Assessment and Plan Citizen Of [place] Society of Anesthesiologists (ASA) physical status classification: Class III. Anesthetic Preoperative Plan Anesthetic technique: MAC. Informed consent: signed by patient. Digitally Signed by DUSTY CABRERA 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 CLERK-EMAIL MARKETING ASSISTANT on 05/24/2023 10:55 AM [facility]11-13-2023 Note ALVARADO ADMISSION HISTORY AND PHYSICIAL CHIEF COMPLAINT: HISTORY [...] FAMILY HISTORY: SOCIAL HISTORY: PHYSICAL EXAM: VITALS: YhtxwzDdmrPPNlsczVGBfB1PJJ2LwblPm(kg) 05/24 10:1236.8--865637--63/45968.5 24 Hr Tmax: 36.8 at 05/24 10:12 [...] H&P unless noted below. Digitally Signed by JONG MASON MD on 05/24/2023 10:45 AM [facility]10-31-2023 History of Present illness Narrative * Meri Fisher V, MD - 05/11/2023 9:47 AM EDT PROGRESS NOTE: Parts of the documentation for this note were completed by Lyndsay Garcia Ma for Meri Fisher MD. May 11, 2023 9:49 AM. Khoa Connors Jr. is a 62 [...] rough papule(s) - Face, UE with warty brown-brandt stuck-on papules - Face, UE with scattered [...] fluorouracil, tamsulosin, ferrous sulfate, ketorolac, prednisolone acetate, xoiszsrg-nfqulywey-dvjyqppmaipge, atropine, ibuprofen, aspirin, atorvastatin, cyanocobalamin, gabapentin, lisinopril, metformin, cholecalciferol (vitamin d3), and guaifenesin. ALLERGIES Allergen Reactions Gabapentin Mental Status Change Pt also had hallucinations Latex I agree with the Chief Complaint, ROS, and Past Histories independently gathered by the clinical network diagnostic support specialist and the remaining scribed note accurately describes my personal service to the patient. Meri Fisher MD Dermatology documented in this encounterHolzer [facility] System06-15-2023 History of Present illness Narrative* Renato Canales MD, PhD - 12/24/2022 2:45 PM [...] blood sugar control and close follow-up with PCP/spinning machine tender Amber more OU - RD warnings Epiretinal [...] and agree withall of its relevant components. Renato Canales MD documented in this encounterHolzer Health System05-04-2023 Instructions* Patient Instructions* Renato Canales MD, PhD - 11/12/2022 11:23 AM [...] say gets the red out or redness relieverthese drops contain a chemical that can actually [...] of your eyelid moving out toward your spiritism. Use a baby shampoo (any No Tears formulation) diluted with water. Alternatively you can use nriath-otb-vtnbmrm cleaning formulation called Sterilid or Ocusoft lid [...] heat is better than dry heat. EXAMPLES: Mango-Mate Dry Eye Compress (MOWGLI, approx $10) [employer] Anti-Stress Microwavable Sinus Pillow ([employer], approx $15) RESOURCES: http://www.Stylehive/encyclopedia/hotcompresses.html This website contains patient information regarding warm compresses and includes a recipe to makealison own using uncooked rice and a nylon stocking. documented in this encounterHolzer Health System05-04-2023 History of Present illness Narrative* Renato Canales MD, PhD - 11/12/2022 10:55 AM EDT Previously seen by Dr. Kim s/p SB/PPV/EL/AFx/C3F8 for RRD with multiple tears, left eye 07/16/21 - Pedro/Judy - OCT mac wnl ou, great foveal contour OS 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 edema, with long-term current use of insulin ([facility]) -his A1C fluctuates, he states that it has been under 6 recently but was previously in the 9's - Stressed blood pressure and blood sugar control and close follow-up with PCP/spinning machine tender -not improving with steroid drops, discussed starting kaia left eye -patient decides to observe for now Lattice degen OU - RD warnings Epiretinal membrane left eye -will monitor/observe Posterior chamber intraocular lens (PCIOL) left eye (03/24/22 Mikie) -now with posterior capsular opacity (PCO) -s/p YAG left eye ([facility]) -rebound iritis with cystoid macular [...] and agree withall of its relevant components. Renato Canales MD documented in this encounterHolzer Health System03-16-2023 Instructions* Patient Instructions* Renato Canales MD, PhD - 09/24/2022 12:56 PM EDT Increase ketorolac to four times a day left eye Increase Predforte to four times a day left eye Call [phone] with any questions documented in this encounterHolzer Health System03-16-2023 History of Present illness Narrative* Renato Canales MD, PhD - 09/24/2022 12:46 PM [...] blood sugar control and close follow-up with PCP/spinning machine tender Lattice degen OU - RD warnings Epiretinal [...] and agree withall of its relevant components. Renato Canales MD documented in this encounterHolzer Health System02-22-2023 History of Present illness Narrative* Bradly Sanders [...] components. Bradly Sanders MD documented in this encounterHolzer Health System02-14-2023 History and physical note Author Uriel Linder [facility] August 25, 2022 2:09pm Note Date/Time August 25, 2022 2:09pm [facility] Medical Records Department [address] [place] [address] History & Physical Exam 08/25/22 1408 MR#: [id number] Acct: [id number] Name: KHOA CONNORS Jr. Rep #:[id number] : 1960 61 From: Uriel MARQUEZ PA-C PCP: Dr. Angelic Monsalve MD Status:PRE IN Location: [facility] History and Physical History and Physical? Patient Name: Khoa Connors : 1960 From:? URIEL LINDER PA-C? DATE OF SURGERY:? 09/09/2022 SCHEDULED PROCEDURE:? ?Left total knee arthroplasty HISTORY OF PRESENT ILLNESS: Preoperative history and physical exam was performed on August 24, 2022.? Thisis a 61-year-old male who is had ongoing pain for the past 2-3 years.? He was initially scheduled to undergo surgery in January 2022 but that had to be canceled due to elevated A1c at 7.7.? Since then patient has met with her primary care physician in which the A1c improved to 6.9.? However he continues to complain ofsignificant left knee pain.? He did have an injury at work when he fell directlyon the knee.? His pain is associated with going up and down stairs, walking, andstanding.? He is using a walker for ambulatory assistance.? His pain as being constant.? He has difficulty getting in and out of cars or up from a seated position.? Pain is located over the medial and lateral knee.? Pain does awaken him at nighttime.? He has difficulty with activities of daily living including showering, getting dressed, housework, shopping and leisure activities.? He has tried oral medications including ibuprofen with minimal relief.? He has had previous falls due to the knee pain.? He feels unsafe doing all activities.? He has had previous corticosteroid injection and physical therapy without relief insymptoms.? Patient does report previous problems with anesthesia after cataract surgery.? He also has previous low back problems which did affect his right lower leg over 2 years ago.? He is seen by neurology.? He has foot drop on the right.? He has atrophy on the right.? Patient has medical history pertinent for a 2 diabetes mellitus.? We are obtaining surgical clearance from the primary care physician Dr. Gilmore.? He denies previous DVT or pulmonary embolism. Due to the patient's chronic neurologic deficit on the right lower extremity patient will likely need inpatient care after surgical intervention.? He had a RAPT score of 5.? Patient's is unable to provide adequate care at home due to her own medical problems. REVIEW OF SYSTEMS: Review Of Systems: Constitutional: Denies change in appetite, fever and weight change. Cardiovasular: Denies chest pain, heart murmur and irregular heartbeat. Respiratory: Denies cough, pneumonia, shortness of breath, tuberculosis and wheezing. Gastrointestinal: Denies constipation, diarrhea, heartburn, nausea, rectal itching, bloody stools and vomiting. Genitourinary: Denies incontinence. Musculoskeletal: Reports ambulatory dysfunction, trouble walking and weakness, but denies leg swelling and pain. Skin: Denies Raynaud's, history of shingles and tattoo. Neurological: Reports ambulatory dysfunction and numbness/tingling but denies dizziness and tremor. Psychiatric: Denies anxiety, insomnia and stress. Hematologic/Lymphatic: Denies anemia, bleeding/bruising tendency and past transfusion. Reviewed, no changes. PAST MEDICAL HISTORY: Advance Care Plan: No Advance Directives Effective Date: 10/27/2021 Past Medical History: Medical Problems: Diabetes, Enlarged Prostate Accidents: Fracture - T-12 COMP FRACTURE - [facility] 10/30/19 Other - SHOULDER & KNEE 05/30 Surgical Hx: Detached Retina - 2021 [facility] / EYE Cataracts - (2021) LT EYE Laser Surgery - (08/2022) TO REMOVE SCAR TISSUE / LEFT EYE? Anesthesia Complications: None Assistive Devices: Cane, Walker Reviewed and updated. SOCIAL HISTORY: Social History: Marital: .Occupation: [employer] .Work Status: Injured - OFF WORK SINCE 10-28.Hand Dominance: Right-handed. Personal Habits:? Cigarette Use: Never Smoked Cigarettes.Smokeless Tobacco: Never Used Smokeless Tobacco.E-Cigarette Use: Never used.Alcohol: Denies use.Drug Use: Denies Use.Enjoy Exercising: Exercises 1-3 x/month. Reviewed, no changes. VITALS: Ht: 77 Wt: 340lb Wt k.224 BMI: 40.3 BP: 138/82 Pulse: 96 Resp: 20 T: 98.0T: 36.7C Pain Level: 7 O2SatR: 98 ALLERGIES: No Known Drug Allergy? MEDICATIONS: Ibuprofen 200 200 mg take 1-2 tablet's every four(4) to six(6) hours as needed for pain., Metformin HCL 500 mg 1 by mouth every day, Tamsulosin HCL 0.4 mg 1 podaily PRE-OP EXAM:? General appearance:NORMAL? ? ? Other: Eyes: Conjunctivae and lids: NORMAL? Pupils: ERR Ears, Nose, Mouth, and Throat: NORMAL? Other: Inspection of lips, teeth and gums: NORMAL? ?Other: Neck: Examination of neck: no masses noted. Respiratory: Assessment of respiratory effort: NORMAL? ?Other: ?Auscultation of lungs: clear to auscultation no wheezes, rhonchi or rales. Cardiovascular:? Auscultation of heart: regular rate and rhythm, no murmurs, gallops or rubs. PHYSICAL EXAMINATION: Patient does walk with an antalgic gait.? Currently uses a walker for assistance.? He has had previous falls.? His left knee has valgus alignment.? There is tenderness to palpation over the medial and lateral joint line.? He hasa 10 fixed valgus alignment.? Range of motion: 0 extension to 100 flexion.? Firmendpoint with anterior/posterior drawer exam. IMAGING STUDIES: Previous x-rays of the left knee reveal valgus alignment with lateral joint space narrowing, subchondral sclerosis, osteophyte formation consistent with severe stage IV osteoarthritis with lateral compartment bony erosions. IMPRESSION: 1.? Severe left knee osteoarthritis with valgus alignment 2.? Enlarged prostate 3.? Type 2 diabetes mellitus 4.? Morbid obesity: 40.3 PLAN: Dr. Daryl Luz did discuss and review with the patient all treatment options including surgical versus nonsurgical options.? Patient does wish to proceed with the above-stated procedure.? Potential risks, benefits, and complications of the procedure were discussed in detail including but not limited to , infection, nerve and blood vessel damage, persistent pain, numbness, tingling, paresthesias, blood clot, pulmonary embolism, and requirement for possible further surgery.? The patient expressed full understanding and has no further questions for the doctor.? Patient does agree to proceed with the above-stated procedure and has signed the surgery consent form. This dictation was created using voice recognition software. Phonetic and/or grammatical errors may exist. ___? I have re-examined the patient.? There are no clinical changes since date of exam. ___? See progress notes for changes. ___? Dictated on admission Date: ? ? ?Time: Signature: 08/25/22 1409 <Electronically signed by Uriel MARQUEZ PA-C> Cosigner Signature (if applicable): CC: RUBEN Linder; Dr. Angelic Monsalve MD~ Signed [facility] Work Phone: 1(124) 932-779602-07-2023 History of Present illness Narrative* Bradly Sanders [...] components. Bradly Sanders MD documented in this encounterHolzer Health System02-07-2023 Instructions* Patient Instructions* Bradly Sanders MD - 08/18/2022 3:11 PM EST Images from the original note were not included. documented in this encounterHolzer Health System01-19-2023 Instructions* Patient Instructions* Renato Canales MD, PhD - 07/30/2022 11:44 AM EST Decrease Predforte /ketorolac to 1 drop 3 times a day for 1 week then 1 drop 2 times a day and hold here until you see Dr. Sanders documented in this encounterHolzer Health System01-19-2023 History of Present illness Narrative* Renato Canales MD, PhD - 07/30/2022 10:36 AM [...] blood sugar control and close follow-up with PCP/spinning machine tender Lattice degen OU - RD warnings Epiretinal [...] and agree withall of its relevant components. Renato Canales MD documented in this encounterHolzer Health System12-14-2022 Instructions* Patient Instructions* Bradly Sanders MD - 06/24/2022 11:31 AM EST Images from the original note were not included. Pa documented in this encounterHolzer Health System12-14-2022 History of Present illness Narrative* Bradly Sanders [...] components. Bradly Sanders MD documented in this encounterHolzer Health System11-23-2022 Miscellaneous Notes* Telephone Encounter - Jackie Bacon - 06/03/2022 3:12 PM EST Pt called back to check if there was an answer since he had not heard from Dr. Sanders. I read the pt the response below. He voiced understanding that he was to continue both drops as noted below. * Telephone Encounter - Braldy Sanders MD - 06/03/2022 2:34 PM EST -prednisolone four times a day left eye -ketorolac four times a day left eye * Telephone Encounter - Helga Argueta Pss - 06/03/2022 11:28 AM EST Patient called requesting to speak to clinical about medication/drops. Patient is calling to clarify what medication/drops he is to continue taking. documented in this encounterHolzer Health System11-22-2022 History of Present illness Narrative* Bradly Sanders [...] components. Bradly Sanders MD documented in this encounterHolzer Health System11-01-2022 Instructions* Patient Instructions* Bradly Sanders MD - 05/12/2022 3:58 PM EDT Images from the original note were not included. Pa documented in this encounterHolzer Health System11-01-2022 History of Present illness Narrative* Bradly Sanders [...] components. Bradly Sanders MD documented in this encounterHolzer Health System10-26-2022 Miscellaneous Notes* Addendum Note - Bradly Sanders MD - 05/06/2022 2:17 PM EDTAddended by: BRADLY SANDERS on: 05/06/2022 02:17 PM Modules accepted: Orders documented in this encounterHolzer Health System10-26-2022 Instructions* Patient Instructions* Bradly Sanders MD - 05/06/2022 2:09 PM EDT -prednisolone (white or pink cap) four times a day left eye -ketorolac (stanford cap) four times a day left eye documented in this encounterHolzer Health System10-26-2022 History of Present illness Narrative* Bradly Sanders [...] by others. I have seen and examined hKoa Connors Jr.. I have discussed the case and the management of this patient's care with the Resident/Fellow, if applicable. I also have reviewed and agree with the assessment and plan as stated above and agree withall of its relevant components. Bradly Sanders MD documented in this encounterHolzer Health System09-14-2022 Instructions* Patient Instructions* Bradly Sanders MD - 03/25/2022 1:53 PM EDT Images from the original note were not included. documented in this encounterHolzer Health System09-14-2022 History of Present illness Narrative* Bradly Sanders [...] components. Bradly Sanders MD documented in this encounterHolzer Health System09-13-2022 History of Past illness Narrative* Problem Noted Date Resolved Date Combined forms of age-related cataract of both e yes 03/24/2022 03/24/2022 Closed fracture of twelfth thoracic vertebra 11/07/2019 Fall 10/31/2019 11/07/2019 documented as of this encounter (statuses as of 03/25/2022) [facility] Narrative* Problem Noted Date Resolved Date Combined forms of age-related cataract of both e yes 03/24/2022 03/24/2022 Closed fracture of twelfth thoracic vertebra 11/07/2019 Fall 10/31/2019 11/07/2019 documented as of this encounter (statuses as of 03/25/2022) [facility] Narrative* Problem Noted Date Resolved Date Combined forms of age-related cataract of both e yes 03/24/2022 03/24/2022 Closed fracture of twelfth thoracic vertebra 11/07/2019 Fall 10/31/2019 11/07/2019 documented as of this encounter (statuses as of 03/30/2022) [facility] Past [facility] Narrative* Problem Noted Date Resolved Date Combined forms of age-related cataract of both e yes 03/24/2022 03/24/2022 Closed fracture of twelfth thoracic vertebra 11/07/2019 Fall 10/31/2019 11/07/2019 documented as of this encounter (statuses as of 03/30/2022) [facility] of Past illness Narrative* Problem Noted Date Resolved Date Combined forms of age-related cataract of both e yes 03/24/2022 03/24/2022 Closed fracture of twelfth thoracic vertebra 11/07/2019 Fall 10/31/2019 11/07/2019 documented as of this encounter (statuses as of 05/06/2022) [address]13-2022 History of Past illness Narrative* Problem Noted Date Resolved Date Combined forms of age-related cataract of both e yes 03/24/2022 03/24/2022 Closed fracture of twelfth thoracic vertebra 11/07/2019 Fall 10/31/2019 11/07/2019 documented as of this encounter (statuses as of 05/12/2022) [address]13-2022 History of Past illness Narrative* Problem Noted Date Resolved Date Combined forms of age-related cataract of both e yes 03/24/2022 03/24/2022 Closed fracture of twelfth thoracic vertebra 11/07/2019 Fall 10/31/2019 11/07/2019 documented as of this encounter (statuses as of 06/02/2022) [address]13-2022 History of Past illness Narrative* Problem Noted Date Resolved Date Combined forms of age-related cataract of both e yes 03/24/2022 03/24/2022 Closed fracture of twelfth thoracic vertebra 11/07/2019 Fall 10/31/2019 11/07/2019 documented as of this encounter (statuses as of 06/07/2022) [facility] Narrative* Problem Noted Date Resolved Date Combined forms of age-related cataract of both e yes 03/24/2022 03/24/2022 Closed fracture of twelfth thoracic vertebra 11/07/2019 Fall 10/31/2019 11/07/2019 documented as of this encounter (statuses as of 06/24/2022) [address]13-2022 History of Past illness Narrative* Problem Noted Date Resolved Date Combined forms of age-related cataract of both e yes 03/24/2022 03/24/2022 Closed fracture of twelfth thoracic vertebra 11/07/2019 Fall 10/31/2019 11/07/2019 documented as of this encounter (statuses as of 07/30/2022) [address]13-2022 History of Past illness Narrative* Problem Noted Date Resolved Date Combined forms of age-related cataract of both e yes 03/24/2022 03/24/2022 Closed fracture of twelfth thoracic vertebra 11/07/2019 Fall 10/31/2019 11/07/2019 documented as of this encounter (statuses as of 08/19/2022) [address]13-2022 History of Past illness Narrative* Problem Noted Date Resolved Date Combined forms of age-related cataract of both e yes 03/24/2022 03/24/2022 Closed fracture of twelfth thoracic vertebra 11/07/2019 Fall 10/31/2019 11/07/2019 documented as of this encounter (statuses as of 09/03/2022) [address]13-2022 History of Past illness Narrative* Problem Noted Date Resolved Date Combined forms of age-related cataract of both e yes 03/24/2022 03/24/2022 Closed fracture of twelfth thoracic vertebra 11/07/2019 Fall 10/31/2019 11/07/2019 documented as of this encounter (statuses as of 09/24/2022) [address]13-2022 History of Past illness Narrative* Problem Noted Date Resolved Date Combined forms of age-related cataract of both e yes 03/24/2022 03/24/2022 Closed fracture of twelfth thoracic vertebra 11/07/2019 Fall 10/31/2019 11/07/2019 documented as of this encounter (statuses as of 11/12/2022) [facility] Narrative* Problem Noted Date Resolved Date Combined forms of age-related cataract of both e yes 03/24/2022 03/24/2022 Closed fracture of twelfth thoracic vertebra 11/07/2019 Fall 10/31/2019 11/07/2019 documented as of this encounter (statuses as of 12/25/2022) [facility] Narrative* Problem Noted Date Diagnosed Date Resolved Date Combined forms of age-relate d cataract of both eyes 03/24/2022 03/24/2022 Closed fracture of twelfth thoracic vertebra 0 11/07/2019 Fall 10/31/2019 11/07/2019 documented as of this encounter (statuses as of 05/11/2023) [facility] Narrative* Problem Noted Date Diagnosed Date Resolved Date Combined forms of age-relate d cataract of both eyes 03/24/2022 03/24/2022 Closed fracture of twelfth thoracic vertebra 0 11/07/2019 Fall 10/31/2019 11/07/2019 documented as of this encounter (statuses as of 06/24/2023) [facility] Note* Wendy Tapia RN - 03/24/2022 10:[address] Sanders told pt he would [facility] [place] [employer]. Prednisolone, Vigamox & Ketorolac eyedrops today. Pt states understanding of starting them in the am. * Wendy Tapia RN - 03/24/2022 7:29 AM EDT Pt ready for surgery. Needs H & P preop. No distress noted. Call light in reach documented in this encounterHolzer Health System09-13-2022 Miscellaneous Notes* Telephone Encounter - Kandy Medina - 03/24/2022 9:45 AM EDT Patient is requesting a later time if possible for his scheduled surgery with Dr. Sanders tomorrow. Please contact the patient to discuss surgery time options. Thank you. documented in this encounterHolzer Health System09-13-2022 Hospital Discharge instructions* Discharge Instr - Other Orders* Bradly Sanders MD - 03/24/2022 9:16 AM EDT Instructions After {OPHT CATARACT/CORNEA/COMBINED SURGERY:566544} Surgery It is very important to follow [...] Trouble breathing Contact {CATARACT SURGEONS CONTACT PHONE NUMBERS:[id number]} documented in this encounterHolzer Health System09-13-2022 Miscellaneous Notes* Operative Report - Bradly Sanders MD - 03/24/2022 8:13 AM EDT OPERATIVE/PROCEDURE REPORT OPHTHAMOLOGY LOG ID: [id number] SURGERY/PROCEDURE DATE: 03/24/2022 INCISION/PROCEDURE START TIME: 8:38 AM INCISION CLOSE/PROCEDURE END TIME: 9:07 AM SURGEON(S)/PROCEDURALIST(S) AND SYRUP MIXER HELPER(S): Surgeon(s) and Role: * Bradly Sanders MD [...] Implant Name Type Inv. Item Serial No. Distribution Sales Representative Lot No. LRB No. Used Action LENS ACRYSOF ULTRASERT +14 DIOPTER ACRYLIC IOL 1 PIECE FOLDABLE UV BLUE - [id number] Intraocular Lens LENS ACRYSOF ULTRASERT +14 DIOPTER ACRYLIC IOL 1 PIECE FOLDABLE UV BLUE [id number] [employer] Left 1 Implanted Ocular Co-Morbidities: Yes Intra-operative Complications None I/primary surgeon/proceduralist performed the entire procedure. SIGNATURE: Bradly Sanders MD PATIENT NAME: Khoa Connors Jr. DATE: March 24, 2022 TIME: 9:16 AM PAGER/CONTACT #: [phone] documented in this encounterHolzer Health System09-13-2022 History and physical note * Bradly Sanders [...] 2022 TIME: 8:07 AM documented in this encounterHolzer Health System08-26-2022 Miscellaneous Notes* Telephone Encounter - Helga Argueta [...] with PCP. * Telephone Encounter - Helga Leyva - 03/04/2022 12:54 PM EDT -Patient called [...] Dr. Angelic Gilmore ph. documented in this encounterHolzer Health System07-06-2022 History of Present illness Narrative* Nancy Lucas MA - 01/14/2022 8:50 AM EDT Pt came in for surgery clearance for a workers comp case Nancy Lucas MA documented in this encounterHolzer Health System05-31-2022 Instructions* Patient Instructions* Bradly Sanders MD - 12/09/2021 3:31 PM EDT Images from the original note were not included. documented in this encounterHolzer Health System05-31-2022 History of Present illness Narrative* Bradly Sanders [...] 09, 2021 3:27 PM documented in this encounterHolzer Health System03-28-2022 Miscellaneous Notes* Telephone Encounter - Catrachito Wallace Patient Vendor Manager - 10/06/2021 2:27 PM EDT Patient's orthopedic office is asking for the rest of the patient's records to be sent over to their office. The office said they are missing the Anesthesia report but received the others. The officesaid Dr. Kim's nursing secretary was the one faxing the original records. documented in this encounterHolzer Health System03-21-2022 History of Present illness Narrative* Carly Kim [...] blood sugar control and close follow-up with PCP/spinning machine tender Amber more OU - RD warnings Follow-up [...] components. Carly Kim MD documented in this encounterHolzer Health System10-01-2021 History of Present illness NarrativePatient is a [...] to use a walker for ambulation aid. S li he was experiencing leg numbness approximately 3 [...] will offer substantial improvement for his back pain.[facility] [address] Work Phone: 1(908) 151-708604-21-2020 History of Past illness Narrative* Problem Noted Date Resolved Date Closed fracture of twelfth thoracic vertebra 11/07/2019 Fall 10/31/2019 11/07/2019 documented as of this encounter (statuses as of 09/29/2021) [facility] of [facility] illness Narrative* Problem Noted Date Resolved Date Closed fracture of twelfth thoracic vertebra 11/07/2019 Fall 10/31/2019 11/07/2019 documented as of this encounter (statuses as of 10/08/2021) [facility] of Past illness Narrative* Problem Noted Date Resolved Date Closed fracture of twelfth thoracic vertebra 11/07/2019 Fall 10/31/2019 11/07/2019 documented as of this encounter (statuses as of 12/09/2021) [facility] of Past illness Narrative* Problem Noted Date Resolved Date Closed fracture of twelfth thoracic vertebra 11/07/2019 Fall 10/31/2019 11/07/2019 documented as of this encounter (statuses as of 01/14/2022) [facility] SystemConsult note Author UGO Roche [facility] Note Date/Time February 14, 2025 2:4 7pm [facility] Medical Records Department [address] [place] [address] Anesthesia Postop Eval I 02/14/25 1415 MR#: [id number] Acct: [id number] Name: KHAO CONNORS Jr. Rep #:[id number] : 1960 64 From: Butch Roche PCP: Care Physician,No Primary Status :REG SDC Y Race: C Location: [place] [address] Anesthesia: Postop Eval I Current Vital Signs Temperature: 99 F Pulse Rate: 92 Blood Pressure: 154/75 Respiratory Rate: 16 Pulse Ox: 95 Assessment Airway patent: Yes Spontaneous unlabored respirations: Yes Mental status: Awake nausea: No Vomiting: No Anesthesia Complication: Yes Anesthesia Complication Comment:: 2 infiltrated IV's, O2 desat d/t GLENN, colonoscopy cx Fluid Hydration Crystalloid volume administer (ml): 500 Total IV fluid infused: 500 Progress Note Anesthesia document: Postop Eval 1 completed: Yes 02/14/25 1447 <Electronically signed by Butch Roche > Date _ Butch Payne Signature: Date CC: ~ Signed [facility] Work Phone: Consult note Author Luis F Castillo [facility] Note Date/Time February 14, 2025 2:5 0pm [facility] Medical Records Department [address] [place] [address] [place] [address] Anesthesia Postop Eval II 02/14/25 1449 MR#: [id number] Acct: [id number] Name: KHOA CONNORS Jr. Rep #:[id number] : 1960 64 From: Luis F Castillo MD PCP: Care Physician,No Primary Status :[facility] Y Race: C Location: [place] [address] Anesthesia Postop Eval I Sum Postop Eval Completion status Anesthesia document: Postop Eval 1 completed: Yes Anesthesia Postop Eval I Summary Anesthesia Postop Eval I Summary: Anesthesia Postop Eval I: Assessment Summary Airway patent Yes 02/14/25 14:47 [email or web address] Spontaneous unlabored Yes 02/14/25 14:47 [email or web address] respirations Mental status Awake 02/14/25 14:47 [email or web address] nausea No 02/14/25 14:47 [email or web address] Vomiting No 02/14/25 14:47 [email or web address] Anesthesia Postop Eval I: Fluid Summary Crystalloid volume administer 500 02/14/25 14:47 [email or web address] (ml) Colloids volume administered ( ml) Blood Product volume administered (ml) Total IV fluid infused 500 02/14/25 14:47 [email or web address] Anesthesia Postop Eval I: Summary Notes Anesthesia Complication Yes 02/14/25 14:47 [email or web address] Anesthesia Complication 2 infiltrated IV's 02/14/25 14:47 [email or web address] Comment: , O2 desat d/t GLENN , colonoscopy cx Post-operative progress note Anesthesia: Postop Eval II Evaluation Mental status: Awake Pain Level: 0 nausea: No Vomiting: No Progress Note Post-operative progress note: Patient with multiple IV attempts. 2 IVs infiltrated in the right arm. The IVs were stopped immediately and IV access obtained elsewhere. Patient was recommended to have either a central line or port placement prior to further procedures. Complications Anesthesia Complication: No 02/14/25 1450 <Electronically signed by Luis F Castillo MD > Date _ Luis F Castillo MD [facility]ign Signature: Date CC: ~ Signed [facility] Work Phone: Evaluation note* Diagnosis 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- Primary Recent retinal detachment, partial, with multiple defects 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 edema, without long-term current use of insulin (HCC) documented in this encounter [facility]* Diagnosis Type 2 diabetes mellitus with [...] of senile cataract documented in this encounter [facility]* Diagnosis OPENED IN ERROR- Primary To allow closing an encounter opened in error (used in SmartSet) Combined forms of age-related cataract of both eyes Other and combined forms of senile cataract documented in this encounter [facility] noteNo assessment information availableWDelaware [facility] Hospital Work Phone: Evaluation note* Diagnosis Combined forms of age-related cataract [...] of insulin (HCC) [facility] CME (cystoid macular edema), left [...] of both eyes [facility] Diagnosis Actinic keratoses- Primary Actinic keratosis Seborrheic keratoses Other seborrheic keratosis Lentigines Other dyschromia Acrochordon Unspecified hypertrophic and atrophic condition of skin [facility] Diagnosis Nummular dermatitis- Primary Contact dermatitis and other eczema, due to unspecified cause Actinic keratoses Actinic keratosis [facility] Diagnosis Onset Date Resolution Status Hypoxia acute Osteoarthritis of left knee acute Status post total left knee replacement acute Chronic venous insufficiency chronic Obesity, morbid chronic [facility] Work Phone: Evaluation note* Diagnosis Onset Date Resolution Status Status post total left knee replacement acute Chronic venous insufficiency chronic Obesity, morbid chronic Hypoxia resolved [facility] Work Phone: Evaluation note* Diagnosis CME (cystoid macular edema), left- Primary Type 2 diabetes mellitus 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 * Patient wearing mask throughout session today d/t COVID-19 precautions. [facility] Work Phone: History of Present illness Narrative* Patient ID confirmed using Name and . * Patient wearing mask throughout session today d/t COVID-19 precautions. * Patient continues to demo significant weakness with DF but making progress with strengthening otherLE muscle groups. Ease/tolerance to step ups improving gradually. [facility] Work Phone: History of Present illness NarrativeWeakness noted with hip and quad strengthening. Continued ambulation into clinic with FWW. Fair quad eccentric control with step ups. LOB noted with tandem stance.[facility] Work Phone: Hisokgo of Present illness Narrative* Patient ID confirmed using Name and . * Patient wearing mask throughout session today d/t COVID-[address] [facility] Work Phone: Hisfsuu of Present illness Narrative* Patient ID confirmed using Name and . * Patient wearing mask throughout session today d/t COVID-19 precautions. * Patient continues to present with pain and limitations coming from B knees, patient demos improved/improving strength and stability but painful limitations remain. [facility] Work Phone: History of Present illness Narrative* Patient ID confirmed using Name and . * Patient wearing mask throughout session today d/t COVID-19 precautions. * Patient making progress with strength/stability demos improved/improving balance and ability to perform exercises with increased reps/resistance but continues to present with pain which limits functional/community ambulation. [facility] Work Phone: Hisbipl of Present illness Narrative* Patient ID confirmed using Name and . * Patient wearing mask throughout session today d/t COVID-19 precautions. * Patient able to complete exercises with appropriate level of challenge/difficulty, making progress with strength/stability but continues to have pain and extension strength deficits with R knee but patient was able to increase reps on 6'' step showing improvement in CKC strength. [facility] Work Phone: History of Present illness [...] 6'' step showing improvement in CKC strength. [facility] Work Phone: History of Present illness Narrative* Patient ID confirmed using Name and . * Patient wearing mask throughout session today d/t COVID-[address] [facility] Work Phone: history of Present illness [...] with tandem gait FWD/BWD, but decreased afterwards. [facility] Work Phone: history of Present [facility] NarrativePt able to complete treatment today with no increased pain/discomfort. Pt is improving in strength and is able to complete progressions of reps and resistance to exercises. Pt unable to complete DF bilaterally, has to do unilaterally with an assist for the R foot.[facility] Work Phone: History of Present [facility] NarrativePt able to complete treatment today with no increased pain/discomfort. Pt is improving in strength and is able to complete progressions of reps and resistance to exercises. Pt unable to complete DF bilaterally, has to do unilaterally with an assist for the R foot.[facility] Work Phone: Hiscpqc of Present illness NarrativePt tolerated treatment well [...] up a 6 step w/o 2 UE support.[facility] Work Phone: History of Present illness Narrative* [...] decision making by Emeterio Palacio PTA, CHAD. [facility] Work Phone: History of Present illness NarrativePt was able to tolerate treatment today with no c/o of increased pain/discomfort. Pt is showing improvement with Quad strength as shown by increase in weight for LAQ as well as HSC with an increase in repetitions. Pt is still showing difficulty with stair negotiation and safety.[facility] Work Phone: History of Present illness [...] clinical decision making by Emeterio Palacio PTA, CCI. [facility] Work Phone: Hisnkuy of Present illness NarrativePt tolerated treatment well. Pt hip strength is improving as shown by an increase from green to blue band, pt complained of pain around ankles due to band rubbing and being tight. Pt is still showingdeficits of SLS balance.[facility] Work Phone: History of Present illness [...] decision making by Emeterio Palacio PTA, CHAD. [facility] Work Phone: History of Present illness NarrativePT tolerated treatment well with no increased pain. Noted slower completion of 3-way hip exercises due to an increased resistance and fatigue of those muscles.[facility] Work Phone: History of Present illness Narrative* PT tolerated treatment well with no increased pain. Noted slower completion of 3-way hip exercises due to an increased resistance and fatigue of those muscles. * PUNEET Lerner participated in treatment this date with continuous supervision and all clinical decision making by Emeterio Palacio PTA, CHAD. [facility] Work Phone: Hisxhqx of Present illness NarrativePatient is a very [...] The right is much improved following our aspiration.[facility] 300 Work Phone: History of Present illness Narrative* Patient ID confirmed using Name and . * Patient wearing mask throughout session today d/t COVID-19 precautions. * Patient with good tolerance to treatment, no c/o increased pain/discomfort in clinic. Patient making gradual progress with strength and stability, demos improving propulsion/gross extension with stepups and decreasing use/need for UE assistance. [facility] Work Phone: History of Present illness NarrativeContinue amb using FWW with slow little. He did demonstrate better pattern following session. Fatigued after treatment but no increase in pain.[facility] Work Phone: History of Present illness NarrativePatient identity confirmed today with name/. see goals; little if any improvements in knee strength/ROM since last re-assess 1 mth ago; ease of gait with FWW varies with knee and LBP. [facility] Work Phone: History of Present illness NarrativePatient is a very pleasant 60-year-old male who presents today in follow-up with regards to his left knee osteochondral defect DJD knee pain. He continues have significant mount of pain he is done physical therapy and has had some strengthening of the right lower extremity. He does complain of substantial pain with the left knee. [facility] 300 Work Phone: History of Present [...] not able to use his primary strength source.[facility] 300 Work Phone: History of Present illness NarrativePatient pleasant 60-year-old male presents today in follow-up with regards to his left knee. He continues to have significant pain in the left knee. He is interested in pursuing knee arthroplasty. \`.[facility] 300 Work Phone: History of Present illness NarrativePatient is a pleasant 60-year-old male presents today in follow-up with regards to his left knee osteoarthritis. He is scheduled to have some dental work done prior to his knee replacement. He still waiting for this to be accomplished he did have the vein mapping procedure prior to this visit todayis here today to discuss the results.[facility] 300 Work Phone: Hospital course Narrative No data available for this section [facility] Instructions* Name Dates Details Instructions not documented [facility] 300 Work Phone: Instructions* Name Dates Details Instructions not documented [facility] Work Phone: Instructions* Name Dates Details Instructions not documented [facility] 300 Work Phone: Instructions* Name Dates Details Instructions not documented [facility] Work Phone: Instructions* Name Dates Details Instructions not documented [facility] Work Phone: Reason for Referral Status Reason Specialty Diagnoses / Procedures Referre d By Contact Referred To Contact Closed Radiology Diagnoses Strain of right shoulder, initial encounter Procedures MR Shoulder Right Without Contrast Linda Davalos PA-C [address] [facility] [id number] [place] [address] Assessments Diagnosis Strain of right shoulder, initial encounter Diagnosis Pain in both knees, unspecified chronicity Pain in fibula Disorder of bone and cartilage, unspecified Pes anserinus bursitis of both knees Primary osteoarthritis of left knee Prepatellar bursitis of left knee Prepatellar bursitis, right knee Osteochondral defect of patella Advance Directives No Advanced Directives Records FoundDocuments on File Type Date Recorded Patient Slip Cover Maker Expl anation Advance Directives and Livin g Will 08/03/2019 2:14 PM Documents on File Type Date Recorded Patient Slip Cover Maker Expl anation Advance Directives and Livin g Will 08/03/2019 2:14 PM Documents on File Type Date Recorded Patient Slip Cover Maker Expl anation Advance Directive(s) 07/16/2021 11:36 AM Advance Directive(s) 10/30/2019 11:16 PM Advance Directive Response Recorded Date/ Time Living Will No January 14, 2022 1 1:16am Power of Instrument Technician Apprentice No January 14, 2022 11:16am Advance Directive Response Recorded Date/ Time Living Will No January 14, 2022 1 0:16am Power of Instrument Technician Apprentice No January 14, 2022 10:16am Advance Directive Response Recorded Date/ Time Living Will No September 01, 2 023 1:22pm Power of Instrument Technician Apprentice No September 01, 2022 1:22pm Advance Directive Response Recorded Date/ Time Living Will No September 01, 2 023 2:22pm Power of Instrument Technician Apprentice No September 01, 2022 2:22pm Advance Directive Response Recorded Date/ Time Living Will No June 16 10:21am Power of Instrument Technician Apprentice No June 16, 2023 10:21am Advance Directive Response Recorded Date/ Time Living Will No August 18 1:44pm Power of Instrument Technician Apprentice No August 18, 2023 1:44pm Advance Directive Response Recorded Date/ Time Living Will No August 25, 2 024 4:25pm Power of Instrument Technician Apprentice No August 25, 2023 4:25pm Advance Directive Response Recorded Date/ Time Living Will No August 25, 2 024 5:25pm Power of Instrument Technician Apprentice No August 25, 2023 5:25pm Advance Directive Response Recorded Date/ Time Living Will No December 28, 2023 10:53am Do you have a Healthcare Power of Instrument Technician Apprentice? No December 28, 2023 10:53am Date Activated Date Inactivated Comments 01/01/2024 10:43 AM 01/08/2024 5:12 PM Question Answer Comments Full Code Order Discussed With: Patient Advance Directive Response Recorded Date/ Time Do you have a Healthcare Power of Instrument Technician Apprentice? No February 12, 2025 8:53am Living Will No December 28, 2023 10:53am Do you have a Healthcare Power of Instrument Technician Apprentice? No December 28, 2023 10:53am Summary Purpose Family History No Family History Records Found Mother Name Dates Details Family history of Known heal th problems: none(., Z78.9) Status:Active Mother Name Dates Details Family [...] Details Known health problems: none: Mother Status:Active Relationship Condition Age at Onset Recorded Date/T cely Not Specified Multiple sclerosis Unknown History of Present Illness * Hardy Dominguez MD - 11/30/2019 1:44 PM EDT Dictation on: 11/30/2019 2:00 PM by: HARDY DOMINGUEZ [[id number]] Dictation on: 11/30/2019 2:02 PM by: HARDY DOMINGUEZ [[id number]] documented in this encounter Chief Complaint PATIENT IS HERE FOR FOLLOW UP RIGHT KNEE. [facility] APPROVED. STATES THAT STILL IN PAIN AND IS WANTED IT DRAINED.PATIENT IS HERE FOR FOLLOW UP RIGHT KNEE. [facility] APPROVED. STATES THAT STILL IN PAIN AND IS WANTED IT DRAINED.PT HERE TODAY FOR 6 WK FU BART KNEE/SHOULDER. PT STATES HE IS HAVING ALOT OF PIN BUT THINKS WITH THERAPY HAS GIVEN HIM SOME STRENGTH.PT HERE FOR 3 WK FU LEFT KNEE. [facility]. DOI 06/01/19. STATES KNEE IS THE SAME, NO IMPROVEMENT. LAST THERAPY SESSION WAS 01/16/21. PAIN IS CONSTANT.PT HERE FOR 3 WK FU LEFT KNEE. [facility]. DOI 06/01/19. STATES KNEE IS THE SAME, NO IMPROVEMENT. LAST THERAPY SESSION WAS 01/16/21. PAIN IS CONSTANT.1 MONTH F/U L KNEE.Patient here for f/u for left knee..Sign for SX..Pain is a 8/10 today..Knee feels sore and swollen..Patient here with , Danielle, to review recent x-rays of last visit and venous duplex study ofLLJose. Patient states he is the same with regard to pain left knee.Patient here with , Danielle, to review recent x-rays of last visit and venous duplex study ofLLJose. Patient states he is the same with regard to pain left knee.[facility] follow- up) left knee OA, [...] 1430, Until Wed12/10/21 at 0229, Administer for pneumo tonometry, tonopen tonometry, or [...] Given 03/24/2022 7:01 AM EDT 1 Drop Given 03/24/2022 6:56 AM EDT 1 Drop Given 03/24/2022 6:51 AM EDT 1 Drop Active Administered Medications [...] on Wed08/18/22 at 1500, Until Wed08/19/22 at 0259, Administer for dilation PROTECT FROM LIGHT Given 08/18/2022 2:43 PM EST 1 Drop proparacaine 0.5 % 1 Drop (ALCAINE) 1 Drop, LEFT EYE, DIRECTED, Starting on Wed08/18/22 at 1500, Until Wed08/19/22 at 0259, Administer for pneumo tonometry, tonopen tonometry, or pachymetry. In the event of a proparacaine shortage, administer tetracaine 0.5% ophthalmic drops 1 drop in the left eye as directed for pneumo tonometry, tonopen tonometry, or pachymetry Given 08/18/2022 2:43 PM EST 1 Drop tropicamide 1 % 1 Drop (MYDRIACYL) 1 Drop, LEFT EYE, DIRECTED, Starting on Wed08/18/22 at 1500, Until Wed08/19/22 at 0259, Administer for dilation Given 08/18/2022 2:43 PM [...] Until Wed09/03/22 at 0429, Administer for dilation Given 09/02/2022 4:30 PM EST 1 Drop Active Administered Medications - up to 3 most recent administrations Medication Order MAR Action Action Date Dose Rate Site fluorescein-benoxinate 0.25-0.4 % 1 Drop (FLURESS) 1 Drop, BOTH EYES, DIRECTED, Starting on Wed12/24/22 at 1500, Until Wed12/25/22 at 0259, Administer for applanation tonometry. In the event of a Fluress shortage, administer 1 drop of Donnellson-Fluor into both eyes as directed for applanation tonometry., [facility] ORDERS Given 12/24/2022 3:00 PM EDT 1 Drop PHENYLephrine 2.5 % 1 Drop (AK-DILATE, JADYN-SYNEPHRINE) 1 Drop, BOTH EYES, DIRECTED, Starting on Wed12/24/22 at 1500, Until Wed12/25/22 at 0259, Administer for dilation PROTECT FROM LIGHT, [facility] MED ORDERS Given 12/24/2022 3:00 PM EDT 1 Drop proparacaine 0.5 % 1 Drop (ALCAINE) 1 Drop, BOTH EYES, DIRECTED, Starting on Wed12/24/22 at 1500, Until Wed12/25/22 at 0259, Administer [...] 1 Drop, BOTH EYES, DIRECTED, Starting on Wed12/24/22 at 1500, Until Wed12/25/22 at 0259, Administer for dilation, [facility] MED ORDERS Given 12/24/2022 3:00 PM EDT 1 Drop Chief Complaint and Reason for Visit Chief Complaint OA L KNEE/AQUA/RX HE RE Unilateral primary osteoarthritis, left knee VAN Chief Complaint OA L KNEE/AQUA/RX HE RE LT TOTAL KNEE W VAN Unilateral primary osteoarthritis, left knee VAN TYPE 2 DM Chief Complaint OA L KNEE/AQUA/RX HE RE LT TOTAL KNEE W VAN Unilateral primary osteoarthritis, left knee VAN TYPE 2 DM TYPE 2 DM Chief Complaint LT TOTAL KNEE W VAN Unilateral primary osteoarthritis, left knee VAN TYPE 2 DM TYPE 2 DM Chief Complaint LT KNEE *VAN PROTOC OL* Chief Complaint LT KNEE *VAN PROTOC OL* SEE ORDER Chief Complaint LT KNEE *VAN PROTOC OL* LT TOTAL KNEE W VAN SEE ORDER Chief Complaint SEE ORDER CBC W/DIFF, BMP, ALBUMIN SERUM MNT Chief Complaint CBC W/DIFF, BMP, ALB UMIN SERUM MNT Chief Complaint CBC W/DIFF, BMP, ALB UMIN SERUM MNT MNT Chief Complaint PREOP ROBOTIC ASSISTED LEFT TOTAL KNEE AR LEFT KNEE VAN PROTOCAL Chief Complaint PREOP ROBOTIC ASSISTED LEFT TOTAL KNEE AR LEFT KNEE VAN PROTOCAL ROBOTIC ASSISTED LEFT TOTAL KNEE AR ROBOTIC ASSISTED LEFT TOTAL KNEE AR ROBOTIC ASSISTED LEFT TOTAL KNEE AR ROBOTIC ASSISTED LEFT TOTAL KNEE AR ROBOTIC ASSISTED LEFT TOTAL KNEE AR ROBOTIC ASSISTED LEFT TOTAL KNEE AR ROBOTIC ASSISTED LEFT TOTAL KNEE AR ROBOTIC ASSISTED LEFT TOTAL KNEE AR ROBOTIC ASSISTED LEFT TOTAL KNEE AR ROBOTIC ASSISTED LEFT TOTAL KNEE AR ROBOTIC ASSISTED LEFT TOTAL KNEE AR Reason for Visit Hypoxia Osteoarthritis of left knee Status post total left knee replacement Chronic venous insufficiency Obesity, morbid Chief Complaint PREOP ROBOTIC ASSISTED LEFT TOTAL KNEE AR LEFT KNEE VAN PROTOCAL ROBOTIC ASSISTED LEFT TOTAL KNEE AR ROBOTIC ASSISTED LEFT TOTAL KNEE AR ROBOTIC ASSISTED LEFT TOTAL KNEE AR ROBOTIC ASSISTED LEFT TOTAL KNEE AR ROBOTIC ASSISTED LEFT TOTAL KNEE AR ROBOTIC ASSISTED LEFT TOTAL KNEE AR ROBOTIC ASSISTED LEFT TOTAL KNEE AR ROBOTIC ASSISTED LEFT TOTAL KNEE AR ROBOTIC ASSISTED LEFT TOTAL KNEE AR ROBOTIC ASSISTED LEFT TOTAL KNEE AR ROBOTIC ASSISTED LEFT TOTAL KNEE AR Reason for Visit Status post total le ft knee replacement Chronic venous insufficiency Obesity, morbid Hypoxia Chief Complaint ROBOTIC ASSISTED LEF T TOTAL KNEE AR ROBOTIC ASSISTED LEFT TOTAL KNEE AR ROBOTIC ASSISTED LEFT TOTAL KNEE AR ROBOTIC ASSISTED LEFT TOTAL KNEE AR ROBOTIC ASSISTED LEFT TOTAL KNEE AR ROBOTIC ASSISTED LEFT TOTAL KNEE AR ROBOTIC ASSISTED LEFT TOTAL KNEE AR ROBOTIC ASSISTED LEFT TOTAL KNEE AR ROBOTIC ASSISTED LEFT TOTAL KNEE AR ROBOTIC ASSISTED LEFT TOTAL KNEE AR ROBOTIC ASSISTED LEFT TOTAL KNEE AR 2 UNITS PRBC Reason for Visit Status post total le ft knee replacement Chronic venous insufficiency Obesity, morbid Hypoxia Chief Complaint PREOP LEFT KNEE VAN PROTOCAL Chief Complaint Admit Date 1 MO AFTER IVFE - LABS PRIOR June 212023 8:47am Test Result June 22, 2024 8:50am ANEMIA June 28, 2024 7:38am Anemia June 28, 2024 10:34am REVIEW BM BX - LABS July 19, 2024 9: 32am 1 WK - LABS July 27, 2024 1 0:27am pill cam August 01, 2024 9 :55am RT SHOULDER PAIN/OA August 04, 2024 1 :01pm RT SHOULDER PAIN/OA August 04, 2024 2 :56pm 4 WKS - LABS - RETACRIT August 24, 2 025 9:26am HOSPITAL F/U/SLEEP APNEA August 29, 2024 10:58am 4 WKS - LABS - RETACRIT September 21, 2024 10:33am sleep apnea September 29, 2024 8:0 0pm FCE. RX HERE October 04, 2024 3:0 0pm labs w/IV start October 05, 2024 9:0 0am Reason for Visit Admit Date Iron deficiency anemia June 21 8:47am Pancytopenia June 21, 2024 8:47am Vitamin B12 deficiency June 21 8:47am Deep vein thrombosis (DVT) of right uppe r extremity June 21, 2024 8:47am Anemia June 22, 2024 8:50am Iron deficiency anemia July 19, 2024 9:32am MDS (myelodysplastic syndrome), low grad e July 19, 2024 9:32am Pancytopenia July 19, 2024 9: 32am Vitamin B12 deficiency July 19, 2024 9:32am Deep vein thrombosis (DVT) of right uppe r extremity July 19, 2024 9:32am Iron deficiency anemia July 27 10:27am MDS (myelodysplastic syndrome), low grad e July 27, 2024 10:27am Pancytopenia July 27, 2024 1 0:27am Vitamin B12 deficiency July 27 10:27am Deep vein thrombosis (DVT) of right uppe r extremity July 27, 2024 10:27am Iron deficiency anemia August 24 9:26am MDS (myelodysplastic syndrome), low grad e August 24, 2024 9:26am Pancytopenia August 24, 2024 9:26am Vitamin B12 deficiency August 24 9:26am GLENN (obstructive sleep apnea) August 122024 10:58am Back pain August 29, 2024 10:58am MDS (myelodysplastic syndrome), low grad e August 29, 2024 10:58am Obesity, morbid August 29, 2024 10:58am Iron deficiency anemia September 21, 2024 10:33am MDS (myelodysplastic syndrome), low grad e September 21, 2024 10:33am Pancytopenia September 21, 2024 10: 33am Vitamin B12 deficiency September 21, 2024 10:33am Chief Complaint Admit Date 4 WKS - LABS - RETACRIT August 24 9:26am HOSPITAL F/U/SLEEP APNEA August 29, 2024 10:58am 4 WKS - LABS - RETACRIT September 21, 2024 10:33am sleep apnea September 29, 2024 8:0 0pm FCE. RX HERE October 04, 2024 3:0 0pm 4 WKS - LABS - RETACRIT October 19, 2024 10:13am 4 WKS - LABS - RETACRIT November 16, 2024 10 :32am retacrit December 05, 2024 9:15a m 3 M F/U December 07, 2024 8:43a m Reason for Visit Admit Date Iron deficiency anemia August 24 9:26am MDS (myelodysplastic syndrome), low grad e August 24, 2024 9:26am Pancytopenia August 24, 2024 9:26am Vitamin B12 deficiency August 24 9:26am Back pain August 29, 2024 10:58am MDS (myelodysplastic syndrome), low grad e August 29, 2024 10:58am Obesity, morbid August 29, 2024 10:58am GLENN (obstructive sleep apnea) August 122024 10:58am Iron deficiency anemia September 21, 2024 10:33am MDS (myelodysplastic syndrome), low grad e September 21, 2024 10:33am Pancytopenia September 21, 2024 10: 33am Vitamin B12 deficiency September 21, 2024 10:33am Iron deficiency anemia October 19, 2024 10:13am MDS (myelodysplastic syndrome), low grad e October 19, 2024 10:13am Pancytopenia October 19, 2024 10: 13am Vitamin B12 deficiency October 19, 2024 10:13am Iron deficiency anemia November 16, 2024 10: 32am MDS (myelodysplastic syndrome), low grad e November 16, 2024 10:32am Pancytopenia November 16, 2024 10:32a m Vitamin B12 deficiency November 16, 2024 10: 32am Chief Complaint Admit Date 4 WKS - LABS - RETACRIT August 24 025 9:26am HOSPITAL F/U/SLEEP APNEA August 29, 2024 10:58am 4 WKS - LABS - RETACRIT September 21, 2024 10:33am sleep apnea September 29, 2024 8:0 0pm FCE. RX HERE October 04, 2024 3:0 0pm 4 WKS - LABS - RETACRIT October 19, 2024 10:13am 4 WKS - LABS - RETACRIT November 16, 2024 10 :32am 3 M F/U December 07, 2024 8:43a m 5 WKS - LABS - ARANESP December 21, 2024 9 :58am 1 UNIT PRBC December 21, 2024 10:1 5am Reason for Visit Admit Date Iron deficiency anemia August 24 9:26am MDS (myelodysplastic syndrome), low grad e August 24, 2024 9:26am Pancytopenia August 24, 2024 9:26am Vitamin B12 deficiency August 24 9:26am Back pain August 29, 2024 10:58am MDS (myelodysplastic syndrome), low grad e August 29, 2024 10:58am Obesity, morbid August 29, 2024 10:58am GLENN (obstructive sleep apnea) August 122024 10:58am Iron deficiency anemia September 21, 2024 10:33am MDS (myelodysplastic syndrome), low grad e September 21, 2024 10:33am Pancytopenia September 21, 2024 10: 33am Vitamin B12 deficiency September 21, 2024 10:33am Iron deficiency anemia October 19, 2024 10:13am MDS (myelodysplastic syndrome), low grad e October 19, 2024 10:13am Pancytopenia October 19, 2024 10: 13am Vitamin B12 deficiency October 19, 2024 10:13am Iron deficiency anemia November 16, 2024 10: 32am MDS (myelodysplastic syndrome), low grad e November 16, 2024 10:32am Pancytopenia November 16, 2024 10:32a m Vitamin B12 deficiency November 16, 2024 10: 32am Anemia December 07, 2024 8:43a m Hypoxia December 07, 2024 8:43a m Obesity, morbid December 07, 2024 8:43a m GLENN (obstructive sleep apnea) December 07, 2024 8:43am Iron deficiency anemia December 21, 2024 9 :58am MDS (myelodysplastic syndrome), low grad e December 21, 2024 9:58am Pancytopenia December 21, 2024 9:58 am Vitamin B12 deficiency December 21, 2024 9 :58am Chief Complaint Admit Date HOSPITAL F/U/SLEEP APNEA August 29, 2024 10:58am 4 [facility] - LABS - [facility] September 21, 2024 10:33am sleep apnea September 29, 2024 8:0 0pm FCE. RX HERE October 04, 2024 3:0 0pm 4 WKS - LABS - [facility] October 19, 2024 10:13am 4 WKS - LABS - [facility] November 16, 2024 10 :32am 3 M F/U December 07, 2024 8:43a m 5 WKS - LABS - [facility] December 21, 2024 9 :58am INjectafer December 25, 2024 10:0 0am POSSIBLE BLEEDING - HGB AND IRON LEVELS LOW December 26, 2024 8:27am Reason for Visit Admit Date Back pain August 29, 2024 10:58am MDS (myelodysplastic syndrome), low grad e August 29, 2024 10:58am Obesity, morbid August 29, 2024 10:58am GLENN (obstructive sleep apnea) August 122024 10:58am Iron deficiency anemia September 21, 2024 10:33am MDS (myelodysplastic syndrome), low grad e September 21, 2024 10:33am Pancytopenia September 21, 2024 10: 33am Vitamin B12 deficiency September 21, 2024 10:33am Iron deficiency anemia October 19, 2024 10:13am MDS (myelodysplastic syndrome), low grad e October 19, 2024 10:13am Pancytopenia October 19, 2024 10: 13am Vitamin B12 deficiency October 19, 2024 10:13am Iron deficiency anemia November 16, 2024 10: 32am MDS (myelodysplastic syndrome), low grad e November 16, 2024 10:32am Pancytopenia November 16, 2024 10:32a m Vitamin B12 deficiency November 16, 2024 10: 32am Anemia December 07, 2024 8:43a m Hypoxia December 07, 2024 8:43a m Obesity, morbid December 07, 2024 8:43a m GLENN (obstructive sleep apnea) December 07, 2024 8:43am Iron deficiency anemia December 21, 2024 9 :58am MDS (myelodysplastic syndrome), low grad e December 21, 2024 9:58am Pancytopenia December 21, 2024 9:58 am Vitamin B12 deficiency December 21, 2024 9 :58am Anemia December 26, 2024 8:27 am Iron deficiency anemia December 26, 2024 8 :27am Chief Complaint Admit Date 4 WKS - LABS - [facility] September 21, 2024 10:33am sleep apnea September 29, 2024 8:0 0pm FCE. RX HERE October 04, 2024 3:0 0pm 4 WKS - LABS - [facility] October 19, 2024 10:13am 4 WKS - LABS - [facility] November 16, 2024 10 :32am 3 M F/U December 07, 2024 8:43a m 5 WKS - LABS - [facility] December 21, 2024 9 :58am POSSIBLE BLEEDING - HGB AND IRON LEVELS LOW December 26, 2024 8:27am 4 WKS - LABS - [facility] January 15, 2025 9 :40am INjectafer January 15, 2025 9:45a m Reason for Visit Admit Date Iron deficiency anemia September 21, 2024 10:33am MDS (myelodysplastic syndrome), low grad e September 21, 2024 10:33am Pancytopenia September 21, 2024 10: 33am Vitamin B12 deficiency September 21, 2024 10:33am Iron deficiency anemia October 19, 2024 10:13am MDS (myelodysplastic syndrome), low grad e October 19, 2024 10:13am Pancytopenia October 19, 2024 10: 13am Vitamin B12 deficiency October 19, 2024 10:13am Iron deficiency anemia November 16, 2024 10: 32am MDS (myelodysplastic syndrome), low grad e November 16, 2024 10:32am Pancytopenia November 16, 2024 10:32a m Vitamin B12 deficiency November 16, 2024 10: 32am Anemia December 07, 2024 8:43a m Hypoxia December 07, 2024 8:43a m Obesity, morbid December 07, 2024 8:43a m GLENN (obstructive sleep apnea) December 07, 2024 8:43am Iron deficiency anemia December 21, 2024 9 :58am MDS (myelodysplastic syndrome), low grad e December 21, 2024 9:58am Pancytopenia December 21, 2024 9:58 am Vitamin B12 deficiency December 21, 2024 9 :58am Anemia December 26, 2024 8:27 am Iron deficiency anemia December 26, 2024 8 :27am Iron deficiency anemia January 15, 2025 9: 40am MDS (myelodysplastic syndrome), low grad e January 15, 2025 9:40am Pancytopenia January 15, 2025 9:40a m Vitamin B12 deficiency January 15, 2025 9: 40am Chief Complaint Admit Date 4 WKS - LABS - [facility] October 19, 2024 10:13am 4 WKS - LABS - [facility] November 16, 2024 10 :32am 3 M F/U December 07, 2024 8:43a m 5 WKS - LABS - [facility] December 21, 2024 9 :58am POSSIBLE BLEEDING - HGB AND IRON LEVELS LOW December 26, 2024 8:27am 4 WKS - LABS - [facility] January 15, 2025 9 :40am labs w/IV start February 12, 2025 9:1 5am Reason for Visit Admit Date Iron deficiency anemia October 19, 2024 10:13am MDS (myelodysplastic syndrome), low grad e October 19, 2024 10:13am Pancytopenia October 19, 2024 10: 13am Vitamin B12 deficiency October 19, 2024 10:13am Iron deficiency anemia November 16, 2024 10: 32am MDS (myelodysplastic syndrome), low grad e November 16, 2024 10:32am Pancytopenia November 16, 2024 10:32a m Vitamin B12 deficiency November 16, 2024 10: 32am Anemia December 07, 2024 8:43a m Hypoxia December 07, 2024 8:43a m Obesity, morbid December 07, 2024 8:43a m GLENN (obstructive sleep apnea) December 07, 2024 8:43am Iron deficiency anemia December 21, 2024 9 :58am MDS (myelodysplastic syndrome), low grad e December 21, 2024 9:58am Pancytopenia December 21, 2024 9:58 am Vitamin B12 deficiency December 21, 2024 9 :58am Anemia December 26, 2024 8:27 am Iron deficiency anemia December 26, 2024 8 :27am Iron deficiency anemia January 15, 2025 9: 40am MDS (myelodysplastic syndrome), low grad e January 15, 2025 9:40am Pancytopenia January 15, 2025 9:40a m Vitamin B12 deficiency January 15, 2025 9: 40am Anemia February 14, 2025 11: 26am Chief Complaint Admit Date 4 WKS - LABS - [facility] November 16, 2024 10 :32am 3 M F/U December 07, 2024 8:43a m 5 WKS - LABS - [facility] December 21, 2024 9 :58am POSSIBLE BLEEDING - HGB AND IRON LEVELS LOW December 26, 2024 8:27am 4 WKS - LABS - [facility] January 15, 2025 9 :40am labs w/IV start February 19, 2025 9: 15am PORT PLACEMENT February 21, 2025 12 :58pm Reason for Visit Admit Date Iron deficiency anemia November 16, 2024 10: 32am MDS (myelodysplastic syndrome), low grad e November 16, 2024 10:32am Pancytopenia November 16, 2024 10:32a m Vitamin B12 deficiency November 16, 2024 10: 32am Anemia December 07, 2024 8:43a m Hypoxia December 07, 2024 8:43a m Obesity, morbid December 07, 2024 8:43a m GLENN (obstructive sleep apnea) December 07, 2024 8:43am Iron deficiency anemia December 21, 2024 9 :58am MDS (myelodysplastic syndrome), low grad e December 21, 2024 9:58am Pancytopenia December 21, 2024 9:58 am Vitamin B12 deficiency December 21, 2024 9 :58am Anemia December 26, 2024 8:27 am Iron deficiency anemia December 26, 2024 8 :27am Iron deficiency anemia January 15, 2025 9: 40am MDS (myelodysplastic syndrome), low grad e January 15, 2025 9:40am Pancytopenia January 15, 2025 9:40a m Vitamin B12 deficiency January 15, 2025 9: 40am Anemia February 14, 2025 11: 26am Chief Complaint Admit Date 4 WKS - LABS - [facility] November 16, 2024 10 :32am 3 M F/U December 07, 2024 8:43a m 5 WKS - LABS - [facility] December 21, 2024 9 :58am POSSIBLE BLEEDING - HGB AND IRON LEVELS LOW December 26, 2024 8:27am 4 WKS - LABS - [facility] January 15, 2025 9 :40am PORT PLACEMENT February 21, 2025 12 :58pm labs w/IV start February 22, 2025 10 :45am 5 WKS - LABS - [facility] February 22 10:46am Reason for Visit Admit Date Iron deficiency anemia November 16, 2024 10: 32am MDS (myelodysplastic syndrome), low grad e November 16, 2024 10:32am Pancytopenia November 16, 2024 10:32a m Vitamin B12 deficiency November 16, 2024 10: 32am Anemia December 07, 2024 8:43a m Hypoxia December 07, 2024 8:43a m Obesity, morbid December 07, 2024 8:43a m GLENN (obstructive sleep apnea) December 07, 2024 8:43am Iron deficiency anemia December 21, 2024 9 :58am MDS (myelodysplastic syndrome), low grad e December 21, 2024 9:58am Pancytopenia December 21, 2024 9:58 am Vitamin B12 deficiency December 21, 2024 9 :58am Anemia December 26, 2024 8:27 am Iron deficiency anemia December 26, 2024 8 :27am Iron deficiency anemia January 15, 2025 9: 40am MDS (myelodysplastic syndrome), low grad e January 15, 2025 9:40am Pancytopenia January 15, 2025 9:40a m Vitamin B12 deficiency January 15, 2025 9: 40am Anemia February 14, 2025 11: 26am Iron deficiency anemia February 22, 2025 10:46am MDS (myelodysplastic syndrome), low grad e February 22, 2025 10:46am Pancytopenia February 22, 2025 10 :46am Vitamin B12 deficiency February 22, 2025 10:46am Chief Complaint Admit Date 4 WKS - LABS - [facility] November 16, 2024 10 :32am 3 M F/U December 07, 2024 8:43a m 5 WKS - LABS - [facility] December 21, 2024 9 :58am POSSIBLE BLEEDING - HGB AND IRON LEVELS LOW December 26, 2024 8:27am 4 WKS - LABS - [facility] January 15, 2025 9 :40am PORT PLACEMENT February 21, 2025 12 :58pm 5 WKS - LABS - [facility] February 22 10:46am labs w/IV start March 01, 2025 9: 15am Reason for Visit Admit Date Iron deficiency anemia November 16, 2024 10: 32am MDS (myelodysplastic syndrome), low grad e November 16, 2024 10:32am Pancytopenia November 16, 2024 10:32a m Vitamin B12 deficiency November 16, 2024 10: 32am Anemia December 07, 2024 8:43a m Hypoxia December 07, 2024 8:43a m Obesity, morbid December 07, 2024 8:43a m GLENN (obstructive sleep apnea) December 07, 2024 8:43am Iron deficiency anemia December 21, 2024 9 :58am MDS (myelodysplastic syndrome), low grad e December 21, 2024 9:58am Pancytopenia December 21, 2024 9:58 am Vitamin B12 deficiency December 21, 2024 9 :58am Anemia December 26, 2024 8:27 am Iron deficiency anemia December 26, 2024 8 :27am Iron deficiency anemia January 15, 2025 9: 40am MDS (myelodysplastic syndrome), low grad e January 15, 2025 9:40am Pancytopenia January 15, 2025 9:40a m Vitamin B12 deficiency January 15, 2025 9: 40am Anemia February 14, 2025 11: 26am Difficult intravenous access February 12:58pm Encounter for insertion of venous access port February 21, 2025 12:58pm MDS (myelodysplastic syndrome), low grad e February 21, 2025 12:58pm Iron deficiency anemia February 22, 2025 10:46am MDS (myelodysplastic syndrome), low grad e February 22, 2025 10:46am Pancytopenia February 22, 2025 10 :46am Vitamin B12 deficiency February 22, 2025 10:46am Additional Source Comments Reason for Visit (unrecogniz ed section and content) Status Reason Specialty Diagnoses / Procedures Referre d By Contact Referred To Contact Closed Radiology Diagnoses Strain of right shoulder, initial encounter Procedures MR Shoulder Right Without Contrast Linda Davalos PA-C [address] [address] Reason Comments Pain Status Reason Specialty Diagnoses / Procedures Referred By Contact Referred To Contact Closed Sports Medicine Diagnoses Pain in both knees, unspecified chronicity Linda Davalos PA-C [address] [place] [address] Hardy Dominguez MD [address] [place] [address] Reason Comments Post-op (Ophthalmology) Left Eye S/P [...] BMTRY PRTL COHER INTRFRMTRY IO LENS PWR JOJO PHACOEMULSIFICATION CATARACT IMPLANT INTRAOCULAR LENS W/O ENDOSCOPIC CYCLOPHOTOCOAGULATION OPHTHALMIC BIOMETRY BY PARTIAL COHERENCE INTERFEROMETRY W/INTRAOCULAR LENS POWER CALCULATION [facility] [address] [place] [address] Referral ID Status Reason Start Date Expiration Date Visits Re quested Visits Authorized [id number] 1 1 Reason Comments Post-op Cataract OS [...] capsular opacity Procedures POST-CATARACT LASER SURGERY LASER Renato Canales MD, PhD [address] [place] [address] Bradly Sanders MD [address] [place] [address] Referral ID Status Reason Start Date Expiration Date Visits Re quested Visits Authorized [id number] Closed 08/18/2022 11/16/2022 1 1 Reason Comments Lattice Degeneration Follow Up Chorioretinal Scar Follow Up Diabetes Foreign Body Sensation Photophobia Left Eye Reason Comments Cystoid Macular Edema evaluation Specialty Diagnoses / Procedures Referred By Contact Referred To Contact Ophthalmology / OPHTHALMOLOGY Diagnoses *YAG left eye for posterior capsular opacity Procedures POST-CATARACT LASER SURGERY NEW ADULT Renato Canales MD, PhD [address] [id number] Renato Canales MD, PhD [address] [place] [id number] Referral ID Status Reason Start Date Expiration Date Visits Re quested Visits Authorized [id number] Closed 09/22/2022 11/08/2022 1 1 Reason Comments S/P SB/PPV Left eye 07/16/2021 Non-insulin Dependent Diabetes Mellitus Epiretinal Membrane Follow Up Left eye Reason Comments Non-insulin Dependent Diabetes Mellitus Checked by [id number] 5.0 Epiretinal Membrane Follow Up Left eye Difficulty Reading Both Eyes Reason Comments Skin Check arms, face and neck only Reason Comments Follow Up Reason Comments Epiretinal Membrane Follow Up Post-op (Ophthalmology) Left 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, left eye 07/16/21- Mammo/[place] (unrecognized sect ion and content) No Status Records FoundNo Status Records FoundNo Status Records FoundNo Status Records FoundNo Status Records FoundNo Status Records FoundNo Status Records FoundNo Status Records FoundNo Status Records FoundNo Status Records Found INFORMATION SOURCE (unrecogn ized section and content) DATE CREATED AUTHOR 08/04/2019 [facility] DATE CREATED AUTHOR AUTHOR'S ORGANIZ ATION 01/28/2020 [facility] DATE CREATED AUTHOR AUTHOR'S ORGANIZ ATION 07/19/2020 [facility] DATE CREATED AUTHOR AUTHOR'S ORGANIZ ATION 07/26/2021 [facility] DATE CREATED AUTHOR AUTHOR'S ORGANIZ ATION 09/03/2021 [facility] DATE CREATED AUTHOR AUTHOR'S ORGANIZ ATION 06/07/2023 [facility] DATE CREATED AUTHOR AUTHOR'S ORGANIZ ATION 02/27/2024 [facility] DATE CREATED AUTHOR AUTHOR'S ORGANIZ ATION 06/23/2024 [facility] DATE CREATED AUTHOR AUTHOR'S ORGANIZ ATION 10/15/2024 [facility] DATE CREATED AUTHOR AUTHOR'S ORGANIZ ATION 03/06/2025 [facility] Source Comments (unrecognize d section and content) In the event this informatio n is protected by the Federal Confidentiality of Alcohol and Drug Abuse Patient Records regulations: The Federal rules restrict any use of the information to criminally investigate or prosecute any alcohol or drug abuse patient.[facility] System[facility] the event this information is protected by the Federal Confidentiality of Alcohol and Drug Abuse Patient Records regulations: The Federal rules restrict any use of the information to criminally investigate or prosecute any alcohol or drug abuse patient.[facility] SystemIn the event this information is protected by the Federal Confidentiality of Alcohol and Drug Abuse Patient Records regulations: The Federal rules restrict any use of the information to criminally investigate or prosecute any alcohol or drug abuse patient.[facility] SystemIn the event this information is protected by the Federal Confidentiality of Alcohol and Drug Abuse Patient Records regulations: The Federal rules restrict any use of the information to criminally investigate or prosecute any alcohol or drug abuse patient.[facility] SystemIn the event this information is protected by the Federal Confidentiality of Alcohol and Drug Abuse Patient Records regulations: The Federal rules restrict any use of the information to criminally investigate or prosecute any alcohol or drug abuse patient.[facility] SystemIn the event this information is protected by the Federal Confidentiality of Alcohol and Drug Abuse Patient Records regulations: The Federal rules restrict any use of the information to criminally investigate or prosecute any alcohol or drug abuse patient.[facility] SystemIn the event this information is protected by the Federal Confidentiality of Alcohol and Drug Abuse Patient Records regulations: The Federal rules restrict any use of the information to criminally investigate or prosecute any alcohol or drug abuse patient.[facility] SystemIn the event this information is protected by the Federal Confidentiality of Alcohol and Drug Abuse Patient Records regulations: The Federal rules restrict any use of the information to criminally investigate or prosecute any alcohol or drug abuse patient.[facility] SystemIn the event this information is protected by the Federal Confidentiality of Alcohol and Drug Abuse Patient Records regulations: The Federal rules restrict any use of the information to criminally investigate or prosecute any alcohol or drug abuse patient.[facility] SystemIn the event this information is protected by the Federal Confidentiality of Alcohol and Drug Abuse Patient Records regulations: The Federal rules restrict any use of the information to criminally investigate or prosecute any alcohol or drug abuse patient.[facility] SystemIn the event this information is protected by the Federal Confidentiality of Alcohol and Drug Abuse Patient Records regulations: The Federal rules restrict any use of the information to criminally investigate or prosecute any alcohol or drug abuse patient.[facility] SystemIn the event this information is protected by the Federal Confidentiality of Alcohol and Drug Abuse Patient Records regulations: The Federal rules restrict any use of the information to criminally investigate or prosecute any alcohol or drug abuse patient.[facility] SystemIn the event this information is protected by the Federal Confidentiality of Alcohol and Drug Abuse Patient Records regulations: The Federal rules restrict any use of the information to criminally investigate or prosecute any alcohol or drug abuse patient.[facility] SystemIn the event this information is protected by the Federal Confidentiality of Alcohol and Drug Abuse Patient Records regulations: The Federal rules restrict any use of the information to criminally investigate or prosecute any alcohol or drug abuse patient.[facility] SystemIn the event this information is protected by the Federal Confidentiality of Alcohol and Drug Abuse Patient Records regulations: The Federal rules restrict any use of the information to criminally investigate or prosecute any alcohol or drug abuse patient.[facility] SystemIn the event this information is protected by the Federal Confidentiality of Alcohol and Drug Abuse Patient Records regulations: The Federal rules restrict any use of the information to criminally investigate or prosecute any alcohol or drug abuse patient.[facility] SystemIn the event this information is protected by the Federal Confidentiality of Alcohol and Drug Abuse Patient Records regulations: The Federal rules restrict any use of the information to criminally investigate or prosecute any alcohol or drug abuse patient.[facility] SystemIn the event this information is protected by the Federal Confidentiality of Alcohol and Drug Abuse Patient Records regulations: The Federal rules restrict any use of the information to criminally investigate or prosecute any alcohol or drug abuse patient.[facility] SystemIn the event this information is protected by the Federal Confidentiality of Alcohol and Drug Abuse Patient Records regulations: The Federal rules restrict any use of the information to criminally investigate or prosecute any alcohol or drug abuse patient.[facility] SystemIn the event this information is protected by the Federal Confidentiality of Alcohol and Drug Abuse Patient Records regulations: The Federal rules restrict any use of the information to criminally investigate or prosecute any alcohol or drug abuse patient.[facility] SystemIn the event this information is protected by the Federal Confidentiality of Alcohol and Drug Abuse Patient Records regulations: The Federal rules restrict any use of the information to criminally investigate or prosecute any alcohol or drug abuse patient.[facility] SystemIn the event this information is protected by the Federal Confidentiality of Alcohol and Drug Abuse Patient Records regulations: The Federal rules restrict any use of the information to criminally investigate or prosecute any alcohol or drug abuse patient.[facility] Care Teams (unrecognized sec tion and content) Team Status: Active Member Role Status Dates Dr. Angelic Monsalve MD Primary Care Provider Active Team Status: Inactive Member Role Status Dates Dr. Angelic Monsalve MD Primary Care Provider Active Start: June 21, 2024 End: June 21, 2024 Dr. Angelic Monsalve MD Referring Provider Active Start: June 21, 2024 End: June 21, 2024 Dr. Herbert Toussaint MD Attending Provider Active Start: June 21, 2024 End: June 21, 2024 Team Status: Inactive Member Role Status Dates Dr. Angelic Monsalve MD Primary Care Provider Active Start: June 22, 2024 End: June 22, 2024 Dr. Angelic Monsalve MD Referring Provider Active Start: June 22, 2024 End: June 22, 2024 JIMMY Villa Attending Provider Active Start: June 22, 2024 End: June 22, 2024 Team Status: Inactive Member Role Status Dates Dr. Angelic Monsalve MD Primary Care Provider Active Start: June 28, 2024 End: June 28, 2024 Dr. Herbert Toussaint MD Attending Provider Active Start: June 28, 2024 End: June 28, 2024 Dr. Herbert Toussaint MD Referring Provider Active Start: June 28, 2024 End: June 28, 2024 Team Status: Active Member Role Status Dates Dr. Angelic Monsalve MD Primary Care Provider Active Start: June 28, 2024 Dr. Herbert Toussaint MD Referring Provider Active Start: June 28, 2024 Dr. Herbert Toussaint MD Other Provider Active Start: June 28, 2024 Debbie Apodaca CHASER APPRENTICE, CHASER APPRENTICE-C Attending Provider Active Start: June 28, 2024 Team Status: Inactive Member Role Status Dates Dr. Angelic Monsalve MD Primary Care Provider Active Start: June 30, 2024 End: June 30, 2024 JIMMY Villa Attending Provider Active Start: June 30, 2024 End: June 30, 2024 JIMMY Villa Referring Provider Active Start: June 30, 2024 End: June 30, 2024 Team Status: Inactive Member Role Status Dates Dr. Angelic Monsalve MD Primary Care Provider Active Start: July 19, 2024 End: July 19, 2024 Dr. Angelic Monsalve MD Referring Provider Active Start: July 19, 2024 End: July 19, 2024 Dr. Herbret Toussaint MD Attending Provider Active Start: July 19, 2024 End: July 19, 2024 Team Status: Inactive Member Role Status Dates Dr. Angelic Monsalve MD Primary Care Provider Active Start: July 27, 2024 End: July 27, 2024 Dr. Angelic Monsalve MD Referring Provider Active Start: July 27, 2024 End: July 27, 2024 Dr. Herbert Toussaint MD Attending Provider Active Start: July 27, 2024 End: July 27, 2024 Team Status: Inactive Member Role Status Dates Dr. Angelic Monsalve MD Primary Care Provider Active Start: August 01, 2024 End: August 01, 2024 Dr. Angelic Monsalve MD Referring Provider Active Start: August 01, 2024 End: August 01, 2024 Dr. Josephine Hawk DO Attending Provider Active Start: August 01, 2024 End: August 01, 2024 Team Status: Inactive Member Role Status Dates Dr. Angelic Monsalve MD Primary Care Provider Active Start: August 04, 2024 End: August 04, 2024 Dr. Daryl Luz MD Attending Provider Active Start: August 04, 2024 End: August 04, 2024 Dr. Daryl Luz MD Referring Provider Active Start: August 04, 2024 End: August 04, 2024 Team Status: Active Member Role Status Dates Dr. Angelic Monsalve MD Primary Care Provider Active Start: August 04, 2024 Dr. Daryl Luz MD Referring Provider Active Start: August 04, 2024 Dr. Daryl Luz MD Other Provider Active Sta rt: August 04, 2024 Emily Fischer NP-C Attending Provider Active Start: August 04, 2024 Team Status: Inactive Member Role Status Dates Dr. Angelic Monsalve MD Primary Care Provider Active Start: August 24, 2024 End: August 24, 2024 Dr. Angelic Monsalve MD Referring Provider Active Start: August 24, 2024 End: August 24, 2024 Dr. Herbert Toussaint MD Attending Provider Active Start: August 24, 2024 End: August 24, 2024 Team Status: Inactive Member Role Status Dates Dr. Angelic Monsalve MD Primary Care Provider Active Start: August 29, 2024 End: August 29, 2024 Dr. Angelic Monsalve MD Referring Provider Active Start: August 29, 2024 End: August 29, 2024 Debbie Apodaca CHASER APPRENTICE, CHASER APPRENTICE-C Attending Provider Active Start: August 29, 2024 End: August 29, 2024 Team Status: Inactive Member Role Status Dates Dr. Angelic Monsalve MD Primary Care Provider Active Start: September 21, 2024 End: September 21, 2024 Dr. Angelic Monsalve MD Referring Provider Active Start: September 21, 2024 End: September 21, 2024 Dr. Herbert Toussaint MD Attending Provider Active Start: September 21, 2024 End: September 21, 2024 Team Status: Active Member Role Status Dates Dr. Angelic Monsalve MD Primary Care Provider Active Start: September 29, 2024 Debbie Apodaca CHASER APPRENTICE, CHASER APPRENTICE-C Attending Provider Active Start: September 29, 2024 Debbie Apodaca CHASER APPRENTICE, CHASER APPRENTICE-C Referring Provider Active Start: September 29, 2024 Team Status: Inactive Member Role Status Dates Dr. Angelic Monsalve MD Primary Care Provider Active Start: October 04, 2024 End: October 04, 2024 Dr. Daryl Luz MD Attending Provider Active Start: October 04, 2024 End: October 04, 2024 Dr. Daryl Luz MD Referring Provider Active Start: October 04, 2024 End: October 04, 2024 Team Status: Active Member Role Status Dates Dr. Angelic Monsalve MD Primary Care Provider Active Start: October 05, 2024 Cheri Gomez CHASER APPRENTICE, CHASER APPRENTICE-C Attending Provider Active Start: October 05, 2024 Cheri Gomez CHASER APPRENTICE, CHASER APPRENTICE-C Referring Provider Active Start: October 05, 2024 Team Status: Active Member Role Status Dates Dr. Angelic Monsalve MD Primary Care Provider Active Dr. Amadeo Callejas MD Attending Provider Active Dr. Daryl Luz MD Referring Provider Active Team Status: Inactive Member Role Status Dates Dr. Angelic Monsalve MD Primary Care Provider Active Dr. Daryl Luz MD Attending Provider Active Team Status: Inactive Member Role Status Dates Dr. Angelic Monsalve MD Primary Care Provider Active Dr. Daryl Luz MD Attending Provider, Referring [place] Active District Adviser Relationship Specialty Start Date End Date Angelic Monsalve [address] [facility] [address] [place] [address] PCP - General Family Practice 12/09/21 District Adviser Relationship Specialty Start Date End Date [facility]alve [address] [facility] [address] [place] [address] PCP - General Family Practice 12/09/21 District Adviser Relationship Specialty Start Date End Date [facility]ic [facility]alve [address] [facility] [address] [place] [address] PCP - General Family Practice 12/09/21 District Adviser Relationship Specialty Start Date End Date [facility]ic [facility]alve [address] [facility] [address] [place] [address] PCP - General Family Practice 12/09/21 District Adviser Relationship Specialty Start Date End Date Arunaarijose Angelic Juliette [address] [place] [address] [place] [address] PCP - General Family Practice 12/09/21 District Adviser Relationship Specialty Start Date End Date Angelic Monsalve [address] [place] [address] [place] [address] PCP - General Family Practice 12/09/21 District Adviser Relationship Specialty Start Date End Date Angelic Monsalve [address] [place] [place] [address] PCP - General Family Medicine 12/09/21 District Adviser Relationship Specialty Start Date End Date Angelic Monsalve [address] [place] [address] [place] [address] PCP - General Family Medicine 12/09/21 District Adviser Relationship Specialty Start Date End Date Angelic Monsalve [address] [place] [address] [place] [address] PCP - General Family Medicine 12/09/21 District Adviser Relationship Specialty Start Date End Date Angelic Monsalve [address] [place] [address] [place] [address] PCP - General Family Medicine 12/09/21 District Adviser Relationship Specialty Start Date End Date Angelic Monsalve [address] [place] [place] [address] PCP - General Family Medicine 12/09/21 District Adviser Relationship Specialty Start Date End Date Angelic Monsalve [address] [place] [address] [place] [address] PCP - General Family Medicine 12/09/21 District Adviser Relationship Specialty Start Date End Date Angeilc Monsalve [address] [place] [address] [place] [address] PCP - General Family Medicine 12/09/21 District Adviser Relationship Specialty Start Date End Date Angelic Monsalve [address] [place] [address] [place] [address] PCP - General Family Medicine 12/09/21 Team Status: Inactive Member Role Status Dates Dr. Angelic Monsalve MD Primary Care Prov ider, Attending Provider, Referring Provider Active Team Status: Active Member Role Status Dates Dr. Angelic Monsalve MD Primary Care Provider Active Dr. Jong Mason MD Attending Provider, Referring Provider Active Team Status: Inactive Member Role Status Dates Dr. Angelic Monsalve MD Primary Care Provider Active Dr. Jong Mason MD Attending Provider, Referring Provider Active District Adviser Relationship Specialty Start Date End Date Angelic Monsalve [address] [place] [place] [address] PCP - General Family Medicine 12/09/21 District Adviser Relationship Specialty Start Date End Date Angelic Monsalve [address] [place] [address] [place] [address] PCP - General Family Medicine 12/09/21 Team Status: Active Member Role Status Dates Dr. Angelic Monsalve MD Primary Care Provider Active Dr. Daryl Luz MD Attending Provider, Referring P jody Active District Adviser Relationship Specialty Start Date End Date Angelic Monsalve [address] [place] [place] [address] PCP - General Family Medicine 12/09/21 District Adviser Relationship Specialty Start Date End Date Angelic Monsalve [address] [place] [address] [place] [address] PCP - General Family Medicine 12/09/21 Team Status: Active Member Role Status Dates Dr. Angelic Monsalve MD Primary Care Provider Active Dr. Daryl Luz MD Admit Provider, R eferring Provider, Other Provider Active Dr. Sera Byrd , Attending Provider, Other Provide r Active Team Status: Active Member Role Status Dates Dr. Angelic Monsalve MD Primary Care Provider Active Dr. Daryl Luz MD Admit Provider, Other Provider Active Dr. Sera Byrd , DO Other Provider Active Dr. Haroldo Ruiz , DO Attending Provider, Other Pro vider Active Team Status: Active Member Role Status Dates Dr. Angelic Monsalve MD Primary Care Provider Active Dr. Daryl Luz MD Admit Provider, R eferring Provider, Other Provider Active Dr. Sera Byrd , DO Other Provider Active Dr. Haroldo Ruiz , DO Attending Provider, Other Pro vider Active Team Status: Active Member Role Status Dates Dr. Angelic Monsalve MD Primary Care Provider Active Dr. Daryl Luz MD Admit Provider, R eferring Provider, Other Provider Active Dr. Sera Byrd , DO Other Provider Active Dr. En Banks MD Attending Provider, Other Provi geno Active Team Status: Inactive Member Role Status Dates Dr. Angelic Monsalve MD Primary Care Provider Active Dr. Daryl Luz MD Admit Provider, A ttending Provider, Referring Provider Active Dr. Sera Byrd , Other Provider Active Dr. En Banks MD Other Provider Active Team Status: Active Member Role Status Dates Dr. Angelic Monsalve MD Primary Care Provider Active Dr. Daryl Luz MD Admit Provider, Other Provider Active Dr. Sera Byrd , Other Provider Active Dr. En Banks MD Attending Provider, Other Provi geno Active Team Status: Inactive Member Role Status Dates Dr. Angelic Monsalve MD Primary Care Provider, Attendin g Provider Active Team Status: Active Member Role Status Dates Dr. Angelic Monsalve MD Primary Care Provider, Attendin g Provider Active Team Status: Inactive Member Role Status Dates Dr. Angelic Monsalve MD Primary Care Provider Active Start: September 29, 2024 End: September 29, 2024 Debbie Apodaca CHASER APPRENTICE, CHASER APPRENTICE-C Attending Provider Active Start: September 29, 2024 End: September 29, 2024 Debbie Apodcaa CHASER APPRENTICE, CHASER APPRENTICE-C Referring Provider Active Start: September 29, 2024 End: September 29, 2024 District Adviser Relationship Specialty Start Date End Date Angelic Monsalve [address] [place] [address] [place] [address] PCP - General Family Medicine 12/09/21 Team Status: Inactive Member Role Status Dates Dr. Angelic Monsalve MD Primary Care Provider Active Start: October 19, 2024 End: October 19, 2024 Dr. Angelic Monsalve MD Referring Provider Active Start: October 19, 2024 End: October 19, 2024 Cheri Gomez CHASER APPRENTICE, CHASER APPRENTICE-C Attending Provider Active Start: October 19, 2024 End: October 19, 2024 Team Status: Inactive Member Role Status Dates Dr. Angelic Monsalve MD Primary Care Provider Active Start: November 16, 2024 End: November 16, 2024 Dr. Angelic Monsalve MD Referring Provider Active Start: November 16, 2024 End: November 16, 2024 Dr. Herbert Toussaint MD Attending Provider Active Start: November 16, 2024 End: November 16, 2024 Team Status: Active Member Role Status Dates Dr. Angelic Monsalve MD Primary Care Provider Active Start: December 05, 2024 Cheri Gomez CHASER APPRENTICE, CHASER APPRENTICE-C Attending Provider Active Start: December 05, 2024 Cheri Gomez CHASER APPRENTICE, CHASER APPRENTICE-C Referring Provider Active Start: December 05, 2024 Team Status: Inactive Member Role Status Dates Dr. Angelic Monsalve MD Primary Care Provider Active Start: December 07, 2024 End: December 07, 2024 Dr. Angelic Monsalve MD Referring Provider Active Start: December 07, 2024 End: December 07, 2024 Debbie Apodaca CHASER APPRENTICE, CHASER APPRENTICE-C Attending Provider Active Start: December 07, 2024 End: December 07, 2024 Team Status: Inactive Member Role Status Dates Dr. Angelic Monsalve MD Primary Care Provider Active Start: December 21, 2024 End: December 21, 2024 Dr. Angelic Monsalve MD Referring Provider Active Start: December 21, 2024 End: December 21, 2024 Dr. Herbert Toussaint MD Attending Provider Active Start: December 21, 2024 End: December 21, 2024 Team Status: Active Member Role Status Dates Dr. Angelic Monsalve MD Primary Care Provider Active Start: December 21, 2024 Cheri Gomez CHASER APPRENTICE, CHASER APPRENTICE-C Attending Provider Active Start: December 21, 2024 Cheri Gomez CHASER APPRENTICE, CHASER APPRENTICE-C Referring Provider Active Start: December 21, 2024 Team Status: Active Member Role Status Dates Dr. Angelic Monsalve MD Primary Care Provider Active Start: December 25, 2024 Cheri Gomez CHASER APPRENTICE, CHASER APPRENTICE-C Attending Provider Active Start: December 25, 2024 Cheri Gomez CHASER APPRENTICE, CHASER APPRENTICE-C Referring Provider Active Start: December 25, 2024 Team Status: Inactive Member Role Status Dates Dr. Angelic Monsalve MD Primary Care Provider Active Start: December 26, 2024 End: December 26, 2024 Dr. Angelic Monsalve MD Referring Provider Active Start: December 26, 2024 End: December 26, 2024 JIMMY Villa Attending Provider Active Start: December 26, 2024 End: December 26, 2024 Team Status: Active Member Role/Relationship Status Dates Dr. Angelic Monsalve MD Primary Care Provider Active Team Status: Inactive Member Role/Relationship Status Dates Dr. Angelic Monsalve MD Primary Care Provider Active Start: September 21, 2024 End: September 21, 2024 Dr. Angelic Monsalve MD Referring Provider Active Start: September 21, 2024 End: September 21, 2024 Dr. Herbert Toussaint MD Attending Provider Active Start: September 21, 2024 End: September 21, 2024 Team Status: Inactive Member Role/Relationship Status Dates Dr. Angelic Monsalve MD Primary Care Provider Active Start: September 29, 2024 End: September 29, 2024 Debbie Apodaca CHASER APPRENTICE, CHASER APPRENTICE-C Attending Provider Active Start: September 29, 2024 End: September 29, 2024 Debbie Apodaca CHASER APPRENTICE, CHASER APPRENTICE-C Referring Provider Active Start: September 29, 2024 End: September 29, 2024 Team Status: Inactive Member Role/Relationship Status Dates Dr. Angelic Monsalve MD Primary Care Provider Active Start: October 04, 2024 End: October 04, 2024 Dr. Daryl Luz MD Attending Provider Active Start: October 04, 2024 End: October 04, 2024 Dr. Daryl Luz MD Referring Provider Active Start: October 04, 2024 End: October 04, 2024 Team Status: Inactive Member Role/Relationship Status Dates Dr. Angelic Monsalve MD Primary Care Provider Active Start: October 19, 2024 End: October 19, 2024 Dr. Angelic Monsalve MD Referring Provider Active Start: October 19, 2024 End: October 19, 2024 Cheri Gomez CHASER APPRENTICE, CHASER APPRENTICE-C Attending Provider Active Start: October 19, 2024 End: October 19, 2024 Team Status: Inactive Member Role/Relationship Status Dates Dr. Angelic Monsalve MD Primary Care Provider Active Start: November 16, 2024 End: November 16, 2024 Dr. Angelic Monsalve MD Referring Provider Active Start: November 16, 2024 End: November 16, 2024 Dr. Herbert Toussaint MD Attending Provider Active Start: November 16, 2024 End: November 16, 2024 Team Status: Inactive Member Role/Relationship Status Dates Dr. Angelic Monsalve MD Primary Care Provider Active Start: December 07, 2024 End: December 07, 2024 Dr. Angelic Monsalve MD Referring Provider Active Start: December 07, 2024 End: December 07, 2024 Debbie Apodaca NP, CHASER APPRENTICE-C Attending Provider Active Start: December 07, 2024 End: December 07, 2024 Team Status: Inactive Member Role/Relationship Status Dates Dr. Angelic Monsalve MD Primary Care Provider Active Start: December 21, 2024 End: December 21, 2024 Dr. Angelic Monsalve MD Referring Provider Active Start: December 21, 2024 End: December 21, 2024 Dr. Herbert Toussaint MD Attending Provider Active Start: December 21, 2024 End: December 21, 2024 Team Status: Inactive Member Role/Relationship Status Dates Dr. Angelic Monsalve MD Primary Care Provider Active Start: December 26, 2024 End: December 26, 2024 Dr. Angelic Monsalve MD Referring Provider Active Start: December 26, 2024 End: December 26, 2024 JIMMY Villa Attending Provider Active Start: December 26, 2024 End: December 26, 2024 Team Status: Inactive Member Role/Relationship Status Dates Dr. Angelic Monsalve MD Primary Care Provider Active Start: January 15, 2025 End: January 15, 2025 Dr. Angelic Monsalve MD Referring Provider Active Start: January 15, 2025 End: January 15, 2025 Dr. Herbert Toussaint MD Attending Provider Active Start: January 15, 2025 End: January 15, 2025 Team Status: Active Member Role/Relationship Status Dates Dr. Angelic Monsalve MD Primary Care Provider Active Start: January 15, 2025 Cheri Gomez CHASER APPRENTICE, CHASER APPRENTICE-C Attending Provider Active Start: January 15, 2025 Cheri Gomez CHASER APPRENTICE, CHASER APPRENTICE-C Referring Provider Active Start: January 15, 2025 Team Status: Active Member Role/Relationship Status Dates No Primary Care Physician Primary Care Provider Active Team Status: Inactive Member Role/Relationship Status Dates Dr. Angelic Monsalve MD Primary Care Provider Active Start: October 19, 2024 End: October 19, 2024 Dr. Angelic Monsalve MD Referring Provider Active Start: October 19, 2024 End: October 19, 2024 Cheri Gomez CHASER APPRENTICE, CHASER APPRENTICE-C Attending Provider Active Start: October 19, 2024 End: October 19, 2024 Team Status: Inactive Member Role/Relationship Status Dates Dr. Angelic Monsalve MD Primary Care Provider Active Start: November 16, 2024 End: November 16, 2024 Dr. Angelic Monsalve MD Referring Provider Active Start: November 16, 2024 End: November 16, 2024 Dr. Herbert Toussaint MD Attending Provider Active Start: November 16, 2024 End: November 16, 2024 Team Status: Inactive Member Role/Relationship Status Dates Dr. Angelic Monsalve MD Primary Care Provider Active Start: December 07, 2024 End: December 07, 2024 Dr. Angelic Monsalve MD Referring Provider Active Start: December 07, 2024 End: December 07, 2024 Debbie Apodaca CHASER APPRENTICE, CHASER APPRENTICE-C Attending Provider Active Start: December 07, 2024 End: December 07, 2024 Team Status: Inactive Member Role/Relationship Status Dates Dr. Angelic Monsalve MD Primary Care Provider Active Start: December 21, 2024 End: December 21, 2024 Dr. Angelic Monsalve MD Referring Provider Active Start: December 21, 2024 End: December 21, 2024 Dr. Herbert Toussaint MD Attending Provider Active Start: December 21, 2024 End: December 21, 2024 Team Status: Inactive Member Role/Relationship Status Dates Dr. Angelic Monsalve MD Primary Care Provider Active Start: December 26, 2024 End: December 26, 2024 Dr. Angelic Monsalve MD Referring Provider Active Start: December 26, 2024 End: December 26, 2024 JIMMY Villa Attending Provider Active Start: December 26, 2024 End: December 26, 2024 Team Status: Inactive Member Role/Relationship Status Dates Dr. Angelic Monsalve MD Primary Care Provider Active Start: January 15, 2025 End: January 15, 2025 Dr. Angelic Monsalve MD Referring Provider Active Start: January 15, 2025 End: January 15, 2025 Dr. Herbert Toussaint MD Attending Provider Active Start: January 15, 2025 End: January 15, 2025 Team Status: Active Member Role/Relationship Status Dates Dr. Angelic Monsalve MD Primary Care Provider Active Start: February 12, 2025 Cheri Gomez CHASER APPRENTICE, CHASER APPRENTICE-C Attending Provider Active Start: February 12, 2025 Cheri Gomez CHASER APPRENTICE, CHASER APPRENTICE-C Referring Provider Active Start: February 12, 2025 Team Status: Inactive Member Role/Relationship Status Dates Dr. Josephine Hawk DO Attending Provider Active Start: February 14, 2025 End: February 14, 2025 No Primary Care Physician Primary Care Provider Active Start: February 14, 2025 End: February 14, 2025 No Primary Care Physician Referring Provider Active Start: February 14, 2025 End: February 14, 2025 Team Status: Active Member Role/Relationship Status Dates Dr. Josephine Hawk DO Attending Provider Active Start: February 14, 2025 Dr. Josephine Hakw DO Other Provider Active St art: February 14, 2025 No Primary Care Physician Primary Care Provider Active Start: February 14, 2025 No Primary Care Physician Referring Provider Active Start: February 14, 2025 Team Status: Active Member Role/Relationship Status Dates Damian Cross MD Primary Care Provider Active Team Status: Inactive Member Role/Relationship Status Dates Dr. Angelic Monsalve MD Primary Care Provider Active Start: November 16, 2024 End: November 16, 2024 Dr. Angelic Monsalve MD Referring Provider Active Start: November 16, 2024 End: November 16, 2024 Dr. Herbert Toussaint MD Attending Provider Active Start: November 16, 2024 End: November 16, 2024 Team Status: Inactive Member Role/Relationship Status Dates Dr. Angelic Monsalve MD Primary Care Provider Active Start: December 07, 2024 End: December 07, 2024 Dr. Angelic Monsalve MD Referring Provider Active Start: December 07, 2024 End: December 07, 2024 Debbie Apodaca CHASER APPRENTICE, CHASER APPRENTICE-C Attending Provider Active Start: December 07, 2024 End: December 07, 2024 Team Status: Inactive Member Role/Relationship Status Dates Dr. Angelic Monsalve MD Primary Care Provider Active Start: December 21, 2024 End: December 21, 2024 Dr. Angelic Monsalve MD Referring Provider Active Start: December 21, 2024 End: December 21, 2024 Dr. Herbert Toussaint MD Attending Provider Active Start: December 21, 2024 End: December 21, 2024 Team Status: Inactive Member Role/Relationship Status Dates Dr. Angelic Monsalve MD Primary Care Provider Active Start: December 26, 2024 End: December 26, 2024 Dr. Angelic Monsalve MD Referring Provider Active Start: December 26, 2024 End: December 26, 2024 JIMMY Villa Attending Provider Active Start: December 26, 2024 End: December 26, 2024 Team Status: Inactive Member Role/Relationship Status Dates Dr. Angelic Monsalve MD Primary Care Provider Active Start: January 15, 2025 End: January 15, 2025 Dr. Angelic Monsalve MD Referring Provider Active Start: January 15, 2025 End: January 15, 2025 Dr. Herbert Toussaint MD Attending Provider Active Start: January 15, 2025 End: January 15, 2025 Team Status: Inactive Member Role/Relationship Status Dates Dr. Josephine Hawk DO Attending Provider Active Start: February 14, 2025 End: February 14, 2025 No Primary Care Physician Primary Care Provider Active Start: February 14, 2025 End: February 14, 2025 No Primary Care Physician Referring Provider Active Start: February 14, 2025 End: February 14, 2025 Team Status: Active Member Role/Relationship Status Dates Dr. Josephine Hawk DO Attending Provider Active Start: February 14, 2025 Dr. Josephine Hawk DO Other Provider Active St art: February 14, 2025 No Primary Care Physician Primary Care Provider Active Start: February 14, 2025 No Primary Care Physician Referring Provider Active Start: February 14, 2025 Team Status: Active Member Role/Relationship Status Dates Dr. Angelic Monsalve MD Primary Care Provider Active Start: February 19, 2025 Cheri Patricia CHASER APPRENTICE, CHASER APPRENTICE-C Attending Provider Active Start: February 19, 2025 Cheri Patricia CHASER APPRENTICE, CHASER APPRENTICE-C Referring Provider Active Start: February 19, 2025 Team Status: Inactive Member Role/Relationship Status Dates Dr. Sammie Buck MD Attending Provider Active Start: February 21, 2025 End: February 21, 2025 Dr. Herbert Toussaint MD Referring Provider Active Start: February 21, 2025 End: February 21, 2025 Damian Cross MD Primary Care Provider Active St art: February 21, 2025 End: February 21, 2025 Team Status: Inactive Member Role/Relationship Status Dates Dr. Sammie Buck MD Attending Provider Active Start: February 21, 2025 End: February 21, 2025 Dr. Herbert Toussaint MD Referring Provider Active Start: February 21, 2025 End: February 21, 2025 Damian Cross MD Primary Care Provider Active St art: February 21, 2025 End: February 21, 2025 Team Status: Active Member Role/Relationship Status Dates Dr. Angelic Monsalve MD Primary Care Provider Active Start: February 22, 2025 Cheri Patricia CHASER APPRENTICE, CHASER APPRENTICE-C Attending Provider Active Start: February 22, 2025 Cheri Patricia CHASER APPRENTICE, CHASER APPRENTICE-C Referring Provider Active Start: February 22, 2025 Team Status: Inactive Member Role/Relationship Status Dates Dr. Herbert Toussaint MD Attending Provider Active Start: February 22, 2025 End: February 22, 2025 Damian Cross MD Primary Care Provider Active St art: February 22, 2025 End: February 22, 2025 Damian Cross MD Referring Provider Active Start : February 22, 2025 End: February 22, 2025 Team Status: Inactive Member Role/Relationship Status Dates Dr. Herbert Toussaint MD Attending Provider Active Start: February 22, 2025 End: February 22, 2025 Damian Cross MD Primary Care Provider Active St art: February 22, 2025 End: February 22, 2025 Damian Cross MD Referring Provider Active Start : February 22, 2025 End: February 22, 2025 Team Status: Inactive Member Role/Relationship Status Dates Damian Cross MD Primary Care Provider Active St art: February 23, 2025 End: February 23, 2025 Dr. Dereck Willett MD Attending Provider Active St art: February 23, 2025 End: February 23, 2025 Dr. Dereck Willett MD Referring Provider Active St art: February 23, 2025 End: February 23, 2025 Team Status: Active Member Role/Relationship Status Dates Dr. Angelic Monsalve MD Primary Care Provider Active Start: March 01, 2025 Cheri Gomez CHASER APPRENTICE, CHASER APPRENTICE-C Attending Provider Active Start: March 01, 2025 Cheri Gomez CHASER APPRENTICE, CHASER APPRENTICE-C Referring Provider Active Start: March 01, 2025 Goals (unrecognized section and content) Goals may be documented in a n alternate sectionGoals may be documented in an alternate sectionGoals may be documented in an alternate sectionGoals may be documented in an alternate sectionGoals may be documented in an alternate sectionGoals may be documented in an alternate sectionGoals may be documented in an alternate sectionGoals may be documented in an alternate sectionGoals may be documented in an alternate sectionGoals may be documented in an alternate sectionGoals may be documented in an alternate sectionGoals may be documented in an alternate sectionGoals may be documented in an alternate section No data available for this sectionGoals may be documented in an alternate sectionGoals may be documented in an alternate section No data available for this sectionGoals may be documented in an alternate sectionGoals may be documented in an alternate sectionGoals may be documented in an alternate sectionGoals may be documented in an alternate sectionGoals may be documented in an alternate sectionGoals may be documented in an alternate sectionGoals may be documented in an alternate section Scheduled Active and Recently Administ ered Medications (unrecognized section and content) Medication Order 03/22/2022 03/23/2022 03/24/2022 lidocaine (PF) 40 mg/mL (4 %) 1 mL ophthalmic syringe (COMPLETED) 1 mL, LEFT EYE, ONCE, 1 dose, On Wed03/24/22 at 0900 0651 (Given - Provid er: Wendy Tapia RN) PRN Medication Order 03/22/2022 03/23/2022 03/24/2022 balanced [...] on Wed03/24/22 at 0824, Until Wed03/24/22 at 0914, Intraprocedure 0824 (Given - Provid er: Bradly Sanders MD - Comment: left eye) gfyduiec-qtjtuuocy-jtrujmefonfdm 3.5 mg/g-10,000 unit/g-0.1 % (POLYDEX) (CANCELED) X [...] 0914, Intraprocedure 0842 (Given - Provid er: Braldy Sanders MD)0903 (Given - Provider: Bradly Sanders [...] BE BASED ON THE PRIMARY CLINICAL RECORDS. [facility] [employer] provides no warranty or guarantee of the accuracy or completeness of information in this document.
--- NOTE | 2025-03-06 06:51 | HP.PCM_ITS ---
History and Physical Date of Admission: 03/06/25 Date of Service: 02/21/25 MR#: [id number] Acct: [id number] Name: JEFFREY CONNORS Jr. Rep #: [id number] : 1960 Provider: Dr. Sammie Buck MD Age/Sex: 64/M Location: [facility] Status: Signed Intake Vital Signs 02/15/2510:26 02/19/2510:04 02/21/2513:19 Height 6 ft 5.5 in 6 ft 5 in 6 ft 5 in Weight: 367 lb 2 oz BMI 43.5 BP 151/78 H Blood Pressure Location Lt brachial Position Sitting Respiration 20 H Pulse 93 Pulse Source Monitor Temp 97.4 F L Temp Source Temporal Pulse Oximetry (%) 96 Oxygen Delivery Method room air Intake Visit Reasons: PORT PLACEMENT Chief Complaint: Port Placement Pmo Manager Required: No Accompanied by: Is patient in pain?: No Allergies hydromorphone (From Dilaudid) Allergy (Severe, Verified 02/22/25 11:39) Anaphylaxisgabapentin Adverse Reaction (Intermediate, Verified 02/22/25 11:39) HALLUCINATIONSfentanyl Adverse Reaction (Verified 02/22/25 11:39) Shortness of breath Medications ?Medication ?Instructions ?Recorded ?Confirmed ?Type levothyroxine 75 mcg tablet 75 mcg PO DAILY 01/10/24 02/22/25 Histor y furosemide 40 mg tablet 40 mg PO DAILY PRN edema 11/02/24 History sodium sul 1.479 gram-potas ch See Rx Instructions PO PER PKG DIR 12/26/24 02/22/25 Rx 0.188 gram-magnes sul 0.225 gram #24 tab s tablet (Sutab) Have you fallen in the past year?: No PFSH Medical History History of echocardiogram MDS (myelodysplastic syndrome), low grade Deep vein thrombosis (DVT) of right upper extremity Pancytopenia Back pain GLENN (obstructive sleep apnea) Hypothyroid Edema Nocturia Muscle spasm Vitamin B12 deficiency Iron deficiency anemia History of diabetes mellitus Chronic anemia Compression fracture of L2 Osteoarthritis of left knee Diabetes Bladder disease Dietary restriction Injury of head and neck History of pain when walking Walker as ambulation aid Foot drop, right Arthritis Chronic pain Non-smoker Surgical History Hx of vertebroplasty History of total left knee replacement Hx of left cataract extraction Hx of eye surgery Family History Other Multiple sclerosis Social History household members: spouse Smoking Status: Never smoker alcohol intake: never substance use type: does not use HPI HPI HPI: 64-year-old male presents for port placement due to poor IV access as well as MDS. 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 Patient has had chronic issues with anemia due to the MDS as well. ROS General General: Yes weight change and fatigue; No appetite, colon cancer, breast cancer or weakness HEENT HEENT: Yes eye injury; No difficulty swallowing, eye surgery, swollen glands or hoarseness Endo Endocrine: No thyroid disease, diabetes mellitus, thyroid cancer, Hair loss, heat intolerance or cold intolerance Skin Skin: No rash or changing moles Musc Musculoskeletal: Yes back problems; No arthritis, rheumatoid arthritis, gout or joint pain Cardio Cardiovascular: No murmur, pacemaker, heart disease, atrial fibrillation, high blood pressure, heart attack, heart stent, palpitations, shortness of breath with exertion or chest pain Psych Psychiatric: No depression, anxiety or hearing voices Resp Respiratory: No shortness of breath, Yes sleep apnea, No cough, No COPD, No asthma, No emphysema and No wheezing Gastro Gastrointestinal: No abdominal pain, No nausea or vomiting, No diarrhea, No constipation, Yes blood in stool, No acid reflux, No hemorrhoids, No ulcers, No gallbladder problem and No black,tarry stools Satya Hematologic: No blood thinners, No blood disorders, Yes bleeding, Yes anemia and No blood clots Neuro Neurologic: No system reviewed and no additional complaints, except as docu mented, No as per HPI, No abnormal gait, No abnormal hearing, No abnormal movements, No abnormal speech, No behavioral changes, No burning sensations, No confusion, No convulsions, No disequilibrium, No dizziness, No localized weakness, No frequent falls, No headache(s), No lack of coordination, No loss of vision, No memory loss, Yes numbness, No other visual disturbances, No radicular pain, No restless legs, No sensory deficit, No syncope, Yes tingling, No tremor(s), No weakness and No other Exam Const General: cooperative, comfortable and no acute distress HENMT Head: normocephalic and atraumatic Neck Neck: supple Chest Other: Palpation of bilateral upper chest normal Resp Effort & Inspection: normal respiratory effort Cardio Rate: regular rate GI Inspection: non-distended Palpation: soft and nontender Skin General: no rashes or lesions noted Neuro General: CN's II-XI intact bilaterally Extrem General: normal to inspection Psych Mental Status: mental status grossly normal Attitude: cooperative Assessment and Plan Assessment and Plan (1) Encounter for insertion of venous access port: Status: Acute (2) MDS (myelodysplastic syndrome), low grade: Status: Chronic (3) Difficult intravenous access: Status: Acute Plan I have discussed above with the patient- Port-a-Cath placement. Right IJ possible left Patient has been counseled as to the risks/benefits of the procedure. I have explained the risks of the surgery, including but not limited to: infection, bleeding, injury to any blood vessels/nerves, injury to lungs (such as pneumot horax or hemothorax and need for chest tube), not having any access, nonfunctioning of port due to thrombosis, infection of port, etc. the patient understands and agrees to proceed. I have answered all the patient's questions to the patient?s satisfaction and the patient has no further questions. Sammie Buck M.D. Pager: [phone] [facility] [address] [place] [address], [address] [place] [address] Office: [phone] Coding Level of Care Code Off vis,new,level 3 Diagnoses Encounter for insertion of venous access port Z45.2 MDS (myelodysplastic syndrome), low grade D46.Z Difficult intravenous access Z78.9 Clinical Quality Measures Falls Risk Screening/Assistive Devices Have you fallen in the past year?: No 02/22/25 4138 <Electronically signed by Sammie Buck MD> Date Sammie Buck MD
[2025-03-06] MEDS: Lactated Ringers 1,000 ML 15 ML IV (06:53)
--- NOTE | 2025-03-06 07:05 | PRE.ANES_ITS ---
ASA Classification* ASA Classification ASA Classification: 3 Assessment & Plan Anesthesia* Anesthesia Assessment Anesthesia Assessment: Discussed sedation and/or anesthesia options, risks, benefits, and alternatives with patient/parents/legal guardian/POA. Questions invited. The patient/parents/legal guardian/POA seems to understand and agrees to proceed with anesthesia plan. Reviewed the physical assessment, medical history, allergy history and patient home medications list prior to surgery/procedure/anesthetic and documented any changes. Performed airway and anesthesia risk assessments. Anesthesia Type Anesthesia Type: MAC History Source History Obtained from:: Patient and Chart Anesthesia Focused Assessment* Temperature: 98.7 F Pulse Rate: 83 Blood Pressure: 146/69 Respiratory Rate: 18 Pulse Ox: 97 Oxygen Delivery Method: Room Air Airway Assessment Mouth opens: >3 cm Mallampati Score: II Teeth Condition: Missing (Patient has several missing teeth. Rest of the teeth are tight.) Neck Range of motion (ROM): Limited ROM (Somewhat Decreased) Labs Anesthesia Preop lab: CBC WBC 2.4 K/mm3 (4.4-11.0) L 03/01/25 09:12 03/01/25 RBC 2.68 M/mm3 (4.6-6.2) L 03/01/25 09:12 03/01/25 Hgb 8.1 g/dL (13.0-16.5) L 03/01/25 09:12 03/01/25 Hct 27.7 % (40-54) L 03/01/25 09:12 03/01/25 Plt Count 119 K/mm3 (150-450) L 03/01/25 09:12 03/01/25 CHEMISTRY Potassium 4.5 mmol/L (3.3-5.1) 02/23/25 16:07 02/23/25 Sodium 141 mmol/L (133-145) 02/23/25 16:07 02/23/25 Magnesium 2.2 mg/dL (1.5-2.2) 02/23/25 16:07 02/23/25 Phosphorus 4.3 mg/dL (2.5-4.9) 05/23/24 03:11 05/23/24 BUN 17 mg/dL (4-19) 02/23/25 16:07 02/23/25 Creatinine 0.83 mg/dL (0.70-1.20) 02/23/25 16:07 02/23/25 Glucose 92 mg/dL (70-99) 02/23/25 16:07 02/23/25 POC Glucose 95 mg/dL (74-106) 05/31/24 06:25 05/31/24 TSH 2.530 uIU/mL (0.300-4.200) 02/23/25 16:07 02/09 12/03 COAG PT 15.4 SECONDS (11.7-14.9) H 02/23/25 16:07 02/09 12/03 Pre-Assessment Diagnosis/Proposed Procedure Planned Operative Procedure(s): (R) Insertion, Vascular Port right poss left IJ Anesthesia History Anesthesia History - installer inspector final: Anesthesia History - installer inspector final Hx Hospitalization Yes: 05/2024- [facility] 02/26/25 14:42 Any Problems With Anesthesia Yes: HARD TO AROUSE WITH 02/26/25 14:42 NARCOTICS Cholinesterase deficiency No 02/26/25 14:42 You/Your Family Experience No 02/26/25 14:42 fever (hyperthermia) with Relationship Recent Exposure to Contagious No 03/06/25 06:50 Disease Does patient have nerve No 02/26/25 14:42 stimulator Patient instructed to have device shut off --Does patient have Pacemaker No 03/06/25 06:47 or ICD? When Was Last Pacemaker Check QUESTION #4 FULL TEXT: You/Your Family Experience fever (hyperthermia) with Anesthesia Last Oral Intake Last Oral intake: Last Oral Intake NPO since 00:00 03/06/25 06:47 Meds taken in AM with sips of No 03/06/25 06:47 water? Meds patient instructed to take am of surgery PONV PONV - installer inspector final: PONV - installer inspector final Female No 02/26/25 14:42 HX of Motion Sickness No 02/26/25 14:42 HX of N/V After Surgery No 02/26/25 14:42 Non-Smoker Yes 02/26/25 14:42 Duration of Surgery greater No 02/26/25 14:42 than 60 minutes Number of Risk Factors 1 02/26/25 14:42 PONV Score Low Risk 02/26/25 14:42 Height & Weight Height & Weight: Anesthesia: Height & Weight Height 6 ft 5 in 03/06/25 06:47 Weight: 159 kg 03/06/25 06:47 Body Mass Index (BMI) 41.5 03/06/25 06:47 Respiratory Assessment Respiratory Assessment - installer inspector final: Respiratory Tract Infection Hx - installer inspector final Hx Respiratory Tract Infection No 02/26/25 14:42 STOP Sleep Apnea STOP Sleep Apnea - installer inspector final: STOP Sleep Apnea - installer inspector final Hx Hypertension No 02/26/25 14:42 Hx Sleep Apnea Yes 02/26/25 14:42 CPAP No 02/26/25 14:42 BIPAP No 02/26/25 14:42 Do you snore loudly (louder than talking or can be heard Do you often feel tired/ fatigued/ sleepy during daytime? Has anyone observed you stop breathing during sleep? STOP Results Positive 02/26/25 14:42 QUESTION #5 FULL TEXT : Do you snore loudly (louder than talking or can be heard through closed doors)? Tobacco Use History Tobacco Use History - installer inspector final: Tobacco Use History - installer inspector final Tobacco Use Smoking Status Never smoker 02/26/25 14:42 Hx Tobacco Use No 02/26/25 14:42 Years Smoking Packs Smoked per Day Smoking Cessation Date was within the last 15 years Hx Smoking Cessation Date Hx Smoking Cessation Counseling Hematologic Medial History Hematologic Hx - installer inspector final: Hematologic Medical Hx - yarn examiner skeins Hx of Blood Transfusion Yes 02/26/25 14:42 Hx of Transfusion in last 3 Yes 02/26/25 14:42 Months Date of Last Transfusion (if 01/31/2025 02/26/25 14:42 within last 3 months) Ever experience any problems No 02/26/25 14:42 with transfusion(s)? Specify any problems Hx of Preganancy in last 3 N/A 02/26/25 14:42 Months Nurse Filling Out Transfusion NBUCHER 02/26/25 14:42 & Questions: Date: 02/26/25 02/26/25 14:42 Time: 14:44 02/26/25 14:42 Patient unable to answer at this time (ie. 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 - installer inspector final: /Reproductive Hx- installer inspector final Hx Now Gestational Age (in weeks): EDC: Hx Hx Para Hx Section SAB No 02/26/25 14:42 Active Medications Active Medications: Current Medications Generic Name Dose Route Start Last Admin Trade Name Freq PRN Reason Stop Dose Admin Cefazolin Sodium 3 gm/ Sodium 115 mls @ 200 mls/hr 03/06/25 07:30 Chloride IV 03/06/25 08:04 INTRAOP ONE Lactated Ringer's 1,000 mls @ 15 mls/hr 03/06/25 06:30 03/06/25 06:53 IV 15 mls/hr .Q48H YAZMIN Administration PFSH Medical History GAVE (gastric antral vascular ectasia) MDS (myelodysplastic syndrome) History of echocardiogram MDS (myelodysplastic syndrome), low grade Deep vein thrombosis (DVT) of right upper extremity Pancytopenia Back pain GLENN (obstructive sleep apnea) Hypothyroid Edema Nocturia Muscle spasm Vitamin B12 deficiency Iron deficiency anemia History of diabetes mellitus Chronic anemia Compression fracture of L2 Osteoarthritis of left knee Diabetes Bladder disease Dietary restriction Injury of head and neck History of pain when walking Walker as ambulation aid Foot drop, right Arthritis Chronic pain Non-smoker Home Medications ?Medication ?Instructions ?Recorded ?Last Taken ?Type levothyroxine 75 mcg tablet 75 mcg PO DAILY 01/10/24 0 03/05/25 History furosemide 40 mg tablet 40 mg PO DAILY PRN edema 03/04/25 History spironolactone 50 mg tablet 50 mg PO DAILY 03/05/25 History tamsulosin 0.4 mg capsule 0.4 mg PO DAILY 03/05/25 History Allergy/AdvReac Type Severity Reaction Status Date / Time hydromorphone (From Dilaudid) Allergy Severe Anaphylaxis Verified 03/05/25 09:23 gabapentin AdvReac Intermediate HALLUCINATI Verified 03/05/25 09:23 ONS fentanyl AdvReac Shortness Verified 03/05/25 09:23 of breath Family History Other Multiple sclerosis Surgical History History of esophagogastroduodenoscopy (EGD) Hx of vertebroplasty History of total left knee replacement Hx of left cataract extraction Hx of eye surgery Social History household members: spouse Smoking Status: Never smoker alcohol intake: never substance use type: does not use Review of Systems (Anesthesia) ROS Narrative System reviewed and no additional complaints, except as documented.
[2025-03-06] MEDS: Lactated Ringers 1,000 ML 1000 ML IV (07:27)
[2025-03-06] MEDS: Lidocaine 1% (5 ml sdv) 5 ML Vial IV (07:35)
[2025-03-06] MEDS: Cefazolin 1 GM/5 ML Vial 3 GM IV (07:35)
[2025-03-06] MEDS: Midazolam 2 MG/2 ML Syringe IV (07:38)
[2025-03-06] MEDS: Lidocaine 1% /Epi 1:100 (50ml) 50 ML VIAL (08:00)
--- NOTE | 2025-03-06 08:14 | OP.PCM_ITS ---
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: No Type of Anesthesia: General/Supplemental RN Documented Start/Stop Times: Operation Date: 03/06/25 07:30 Case Time Into Pre-Op 03/06/25 06:18 Out of Pre-Op 03/06/25 07:24 Anesthesia Start 03/06/25 07:27 Into Room 03/06/25 07:27 Procedure Start 03/06/25 07:39 Procedure End 03/06/25 08:12 Anesthesia End 03/06/25 08:15 Out of Room 03/06/25 08:15 Into Recovery 03/06/25 08:17 Into Phase II Recovery 03/06/25 08:40 Out of Recovery 03/06/25 08:40 Out of Phase II 03/06/25 09:38 Procedure Start Time: 07:39 Procedure Stop Time: 08:12 Select all DRAINS/GRAFTS/IMPLANTS that apply: Implanted device Implanted device details: [address] PowerPort isp [employer]. 6Fr Lot [id number] Special Medications: Ancef 3 g IV x 1 Estimated Blood Loss: <10 CC Specimen collected: No Description of surgery: After informed consent was given, the patient was brought to the operating room and placed in the supine position. Appropriate time out protocol was followed. Patient was then given IV conscious sedation for anesthesia. The patient's right upper chest and neck were then prepped with a surgical skin preparation and sterile surgical drapes were placed. After proper landmarks were ascertained, the skin at the upper right chest area was then infiltrated with 1:1 mixture of 1% lidocaine with epinephrine and 0.25% marcaine. A needle trocar was then inserted into the right internal jugular vein with ultrasound guidance-multiple vessels were viewed with u/s and the right IJ was chosen-- and there was good aspiration of venous blood. A wire was then threaded into the needle trocar and this was visualized under fluoroscopy to ensure that the wire was in the superior vena cava. Once this was done, then the needle trocar was removed. A small skin walt was made with an 11 blade knife at the wire entrance site. The dilator with the introducer sheath attached was then placed over the wire into the right internal jugular vein via the Seldinger technique and this was visualized under fluoroscopy. The dilator and sheath were in proper position as visualized by fluoroscopy. A subcutaneous pocket was then created caudad to the catheter insertion site. A transverse skin incision was made after the skin and subcutaneous tissues were infiltrated with local anesthetic. Blunt dissection was then used to create a space large enough for placement of the subcutaneous port. The catheter was then tunneled into the subcutaneous pocket. The wire and dilator were then removed. The catheter was then threaded into the introducer sheath and was positioned with its tip at the junction of the superior vena cava and the right atrium as visualized under fluoroscopy. The excess catheter was transected. The catheter was then attached to the subcutaneous port using manufacturers guidelines. The catheter was flushed with a heparin saline mixture prior to placement. Hemostasis was carefully controlled with electrocautery. The port was sutured to the subcutaneous fascia using 2-0 Vicryl suture at two sites. The port was then placed in the subcutaneous pocket. The incision were reapproximated with interrupted subdermal 3-0 vicryl sutures. The skin was reapproximated with 3-0 nylon suture in a interrupted fashion. Steristrips were used for reinforcement of the skin closure at IJ insertion site and a sterile opsite dressings were applied. The patient tolerated the procedure well. Surgical Findings: See operative report Complications Complications: No
--- NOTE | 2025-03-06 08:17 | EX.PCM.DISCH ---
Discharge Instructions Procedure Port-A-Cath Diet Discharge Diet: Light diet - advance as tolerated Activity May shower in (days): 5 (Keep port site clean and dry x5 days. Neck incision okay to get wet after 1 day. Okay to lower shower and upper sponge bath. OR okay to taper off port site with a Ziploc bag to shower) Lifting Restrictions: No lifting > 15 pounds for 3 days with the arm on the side of the port Dressing / Incision Call your doctor if your incision/area has: Continuous Slow Oozing, Sudden Increased Bleeding, Increased Pain/ Swelling, Increased Redness, Foul Smelling Discharge and Swelling at the incision site Call your doctor if you observe: Fever of 101 or Higher Change Dressing in: 2 days (2-3 days- port site; ok to remove neck opsite in 1 day) Follow Up Care Please Follow Up With: Sammie Buck MD When: In 10 days for permanent suture removal?call office for appointment Test Results: Test results from this visit will be discussed in further detail at your follow-up appointment, if applicable. Discharge Plan Admission Attending Provider: Sammie Buck Primary Care Provider: Damian Cross Instructions Print Language: American Discharge Orders/Prescriptions Prescriptions: New tramadol 50 mg tablet 50 mg PO Q6H PRN (Reason: pain) Qty: 5 0RF Continued levothyroxine 75 mcg tablet 75 mcg PO DAILY furosemide 40 mg tablet 40 mg PO DAILY PRN (Reason: edema) tamsulosin 0.4 mg capsule 0.4 mg PO DAILY spironolactone 50 mg tablet 50 mg PO DAILY Referrals / Follow Up: Damian Cross MD [Primary Care Provider] - Disposition Disposition (needs filled in before D/C Order can be placed): Home, Self Care
--- NOTE | 2025-03-06 08:20 | PCM.POST.ANE ---
Anesthesia: Postop Eval I Current Vital Signs Temperature: 97.7 F Pulse Rate: 86 Blood Pressure: 140/74 Respiratory Rate: 20 Pulse Ox: 98 Oxygen Delivery Method: Room Air Assessment Airway patent: Yes Spontaneous unlabored respirations: Yes Mental status: Awake and Calm nausea: No Vomiting: No Anesthesia Complication: No Fluid Hydration Crystalloid volume administer (ml): 500 Total IV fluid infused: 500 Progress Note Anesthesia document: Postop Eval 1 completed: Yes
--- NOTE | 2025-03-06 08:25 | RAD_ITS ---
PROCEDURE: CHEST 1 VIEW (PORTABLE) 03/06/2025 REASON FOR EXAM: PORT Right-sided port placement. TECHNIQUE: Frontal view of the chest. COMPARISON: Prior study dated May 24, 2024. FINDINGS: Hardware: A right-sided port a catheter is seen with the tip in the midportion of the superior vena cava. Heart: Mild cardiomegaly. Lungs: Mild increased linear markings at the left lung base suggestive of linear atelectasis and/or scarring. Bones: Degenerative changes are identified within the thoracic spine. Other: RAD/Chest 1 View (Portable) IMPRESSION: The tip of the right-sided port a catheter is in the midportion of the superior vena cava. Mild increased linear markings at the left lung base suggestive of linear atele ctasis and/or scarring. Reading Location: [id number]
== END 2025-03-06 09:39 | disposition home or self-care (01) ==
LOC: SDC 06:01 → AC 06:02
PROVIDERS: PCP Family Medicine; Referring Provider Surgery; Visit Provider Surgery
PROC: (CPT 36561; principal; 2025-03-06 07:15)
DX: Z45.2 Encounter for adjustment and management of vascular access device (principal); D46.20 Refractory anemia with excess of blasts, unspecified; E11.9 Type 2 diabetes mellitus without complications; E03.9 Hypothyroidism, unspecified; Z79.890 Hormone replacement therapy
CPT/HCPCS: 36561; 00532; 71045; 77001

== ENCOUNTER 2025-03-27 11:03 | Day surgery (SDC) | payer MEDICARE, SELFPAY ==
--- NOTE | 2025-03-22 16:10 | PAT.ANE_ITS ---
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 03/22/25 15:11 Any Problems With Anesthesia Yes: HARD TO AROUSE WITH 03/22/25 15:11 NARCOTICS Cholinesterase deficiency No 03/22/25 15:11 You/Your Family Experience No 03/22/25 15:11 fever (hyperthermia) with Relationship Recent Exposure to Contagious No 03/06/25 06:50 Disease Does patient have nerve No 03/22/25 15:11 stimulator Patient instructed to have device shut off --Does patient have Pacemaker or ICD? When Was Last Pacemaker Check QUESTION #4 FULL TEXT: You/Your Family Experience fever (hyperthermia) with Anesthesia Last Oral Intake Last Oral intake: Last Oral Intake NPO since Meds taken in AM with sips of water? Meds patient instructed to take am of surgery PONV PONV - fixer supervisor: PONV - fixer supervisor Female No 03/22/25 15:11 HX of Motion Sickness No 03/22/25 15:11 HX of N/V After Surgery No 03/22/25 15:11 Non-Smoker Yes 03/22/25 15:11 Duration of Surgery greater No 03/22/25 15:11 than 60 minutes Number of Risk Factors 1 03/22/25 15:11 PONV Score Low Risk 03/22/25 15:11 Height & Weight Height & Weight: Anesthesia: Height & Weight Height 6 ft 5 in 03/15/25 09:45 Respiratory Assessment Respiratory Assessment - fixer supervisor: Respiratory Tract Infection Hx - fixer supervisor Hx Respiratory Tract Infection No 03/22/25 15:11 STOP Sleep Apnea STOP Sleep Apnea - fixer supervisor: STOP Sleep Apnea - fixer supervisor Hx Hypertension No 03/22/25 15:11 Hx Sleep Apnea Yes 03/22/25 15:11 CPAP No 03/22/25 15:11 BIPAP No 03/22/25 15:11 Do you snore loudly (louder than talking or can be heard Do you often feel tired/ fatigued/ sleepy during daytime? Has anyone observed you stop breathing during sleep? STOP Results Positive 03/22/25 15:11 QUESTION #5 FULL TEXT : Do you snore loudly (louder than talking or can be heard through closed doors)? 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 Specify any problems Hx of Preganancy in last 3 N/A 03/22/25 15:11 Months Nurse Filling Out Transfusion [facility] 03/22/25 15:11 & Questions: Date: 03/22/25 03/22/25 15:11 Time: 15:13 03/22/25 15:11 Patient unable to answer at this time (ie. 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 - fixer supervisor: /Reproductive Hx- fixer supervisor Hx Now Gestational Age (in weeks): EDC: Hx Hx Para Hx Section SAB No 03/22/25 15:11 PFSH Medical History GAVE (gastric antral vascular ectasia) MDS (myelodysplastic syndrome) History of echocardiogram MDS (myelodysplastic syndrome), low grade Deep vein thrombosis (DVT) of right upper extremity Pancytopenia Back pain GLENN (obstructive sleep apnea) Hypothyroid Edema Nocturia Muscle spasm Vitamin B12 deficiency Iron deficiency anemia History of diabetes mellitus Chronic anemia Compression fracture of L2 Osteoarthritis of left knee Diabetes Bladder disease Dietary restriction Injury of head and neck History of pain when walking Walker as ambulation aid Foot drop, right Arthritis Chronic pain Non-smoker Home Medications ?Medication ?Instructions ?Recorded ?Last Taken ?Type levothyroxine 75 mcg tablet 75 mcg PO DAILY 01/10/24 0 03/05/25 History furosemide 40 mg tablet 40 mg PO DAILY PRN edema 03/04/25 History spironolactone 50 mg tablet 50 mg PO DAILY 03/05/25 History tamsulosin 0.4 mg capsule 0.4 mg PO DAILY 03/05/25 History Allergy/AdvReac Type Severity Reaction Status Date / Time hydromorphone (From Dilaudid) Allergy Severe Anaphylaxis Verified 03/22/25 15:09 gabapentin AdvReac Intermediate HALLUCINATI Verified 03/22/25 15:09 ONS fentanyl AdvReac Shortness Verified 03/22/25 15:09 of breath Family History Other Multiple sclerosis Surgical History History of esophagogastroduodenoscopy (EGD) Hx of vertebroplasty History of total left knee replacement Hx of left cataract extraction Hx of eye surgery Social History household members: spouse Smoking Status: Never smoker alcohol intake: never substance use type: does not use Audit: Pertinent Findings Pertinent Findings EKG Perinent findings: 05/17/2024. Normal sinus rhythm. Right bundle branch block. Left anterior fascicular block. Cannot rule out inferior infarct, age undetermined. Echo (EF%) pertinent findings: 05/18/2024. EF of 70%. No aortic stenosis noted. Consult pertinent findings: 05/25/2024. Dr. Laird. 1. Acute hypoxic and hypercapnic respiratory failure-patient is admitted and intubated on 05/18/2024 on the ventilator in the hospital. Patient improved with mechanical ventilation, antimicrobials, and fluid optimization with diuretics. Patient extubated 05/24/2024. 2. Pneumonia?treated with antimicrobials. 3 obstructive sleep apnea. February 22, 2025. Dr. Toussaint. 1. Chronic pancytopenia?chronic 2. Mild dysplastic syndrome?chronic. 3. Iron deficiency anemia?chronic. 4. Difficult IV access?central venous axis is necessary Additional pertinent findings: Hemoglobin is 7.8 on the latest labs of 03/22/2025. Recommendation Anesthesia Recommendation Anesthesia recommendation: OPTIMIZED for anesthesia (Patient is cleared for sedation for this surgery only.)
[2025-03-27] VITALS (9 sets, daily range): BP systolic 105–142; BP diastolic 57–73; PULSE 77–92; RESP 16–18; TEMP 36.5–36.8; O2SAT 91–100; BMI 40.3
--- NOTE | 2025-03-27 11:48 | PRE.ANES_ITS ---
ASA Classification* ASA Classification ASA Classification: 3 Assessment & Plan Anesthesia* Anesthesia Assessment Anesthesia Assessment: Discussed sedation and/or anesthesia options, risks, benefits, and alternatives with patient/parents/legal guardian/POA. Questions invited. The patient/parents/legal guardian/POA seems to understand and agrees to proceed with anesthesia plan. Reviewed the physical assessment, medical history, allergy history and patient home medications list prior to surgery/procedure/anesthetic and documented any changes. Performed airway and anesthesia risk assessments. Anesthesia Type Anesthesia Type: MAC History Source History Obtained from:: Patient and Chart Anesthesia Focused Assessment* Temperature: 98.2 F Pulse Rate: 77 Blood Pressure: 142/71 Respiratory Rate: 18 Pulse Ox: 100 Oxygen Delivery Method: Room Air Airway Assessment Mouth opens: >3 cm Mallampati Score: III Teeth Condition: Intact Neck Range of motion (ROM): Limited ROM (Somewhat Decreased.) Labs Anesthesia Preop lab: CBC WBC 3.0 K/mm3 (4.4-11.0) L 03/22/25 09:36 03/22/25 RBC 2.70 M/mm3 (4.6-6.2) L 03/22/25 09:36 03/22/25 Hgb 7.8 g/dL (13.0-16.5) L 03/22/25 09:36 03/22/25 Hct 26.1 % (40-54) L 03/22/25 09:36 03/22/25 Plt Count 127 K/mm3 (150-450) L 03/22/25 09:36 03/22/25 CHEMISTRY Potassium 4.5 mmol/L (3.3-5.1) 02/23/25 16:07 02/23/25 Sodium 141 mmol/L (133-145) 02/23/25 16:07 02/23/25 Magnesium 2.2 mg/dL (1.5-2.2) 02/23/25 16:07 02/23/25 Phosphorus 4.3 mg/dL (2.5-4.9) 05/23/24 03:11 05/23/24 BUN 17 mg/dL (4-19) 02/23/25 16:07 02/23/25 Creatinine 0.83 mg/dL (0.70-1.20) 02/23/25 16:07 02/23/25 Glucose 92 mg/dL (70-99) 02/23/25 16:07 02/23/25 POC Glucose 95 mg/dL (74-106) 05/31/24 06:25 05/31/24 TSH 2.530 uIU/mL (0.300-4.200) 02/23/25 16:07 02/09 12/03 COAG PT 15.4 SECONDS (11.7-14.9) H 02/23/25 16:07 02/09 12/03 Pre-Assessment Diagnosis/Proposed Procedure Planned Operative Procedure(s): EGD Anesthesia History 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 When Was Last Pacemaker Check QUESTION #4 FULL TEXT: You/Your Family Experience fever (hyperthermia) with Anesthesia Last Oral Intake Last Oral intake: Last Oral Intake NPO since 20:00 03/27/25 11:18 Meds taken in AM with sips of No 03/27/25 11:18 water? 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 Female No 03/22/25 15:11 HX of Motion Sickness No 03/22/25 15:11 HX of N/V After Surgery No 03/22/25 15:11 Non-Smoker Yes 03/22/25 15:11 Duration of Surgery greater No 03/22/25 15:11 than 60 minutes Number of Risk Factors 1 03/22/25 15:11 PONV Score Low Risk 03/22/25 15:11 Height & Weight Height & Weight: Anesthesia: Height & Weight Height 6 ft 5.17 in 03/27/25 11:18 Weight: 154.9 kg 03/27/25 11:18 Body Mass Index (BMI) 40.3 03/27/25 11:18 Respiratory Assessment Respiratory Assessment - metal fabricating shop helper: Respiratory Tract Infection Hx - metal fabricating shop helper Hx Respiratory Tract Infection No 03/22/25 15:11 STOP Sleep Apnea STOP Sleep Apnea - metal fabricating shop helper: STOP Sleep Apnea - metal fabricating shop helper Hx Hypertension No 03/26/25 09:50 Hx Sleep Apnea Yes 03/22/25 15:11 CPAP No 03/22/25 15:11 BIPAP No 03/22/25 15:11 Do you snore loudly (louder than talking or can be heard Do you often feel tired/ fatigued/ sleepy during daytime? Has anyone observed you stop breathing during sleep? STOP Results Positive 03/22/25 15:11 QUESTION #5 FULL TEXT : Do you snore loudly (louder than talking or can be heard through closed doors)? 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 Specify any problems Hx of Preganancy in last 3 N/A 03/22/25 15:11 Months Nurse Filling Out Transfusion [facility] 03/22/25 15:11 & Questions: Date: 03/22/25 03/22/25 15:11 Time: 15:13 03/22/25 15:11 Patient unable to answer at this time (ie. 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: /Reproductive Hx- metal fabricating shop helper Hx Now Gestational Age (in weeks): EDC: Hx Hx Para Hx Section SAB No 03/22/25 15:11 Active Medications Active Medications: Current Medications Generic Name Dose Route Start Last Admin Trade Name Freq PRN Reason Stop Dose Admin Lactated Ringer's 1,000 mls @ 15 mls/hr 03/27/25 11:15 IV .Q48H YAZMIN PFSH Medical History GAVE (gastric antral vascular ectasia) MDS (myelodysplastic syndrome) History of echocardiogram MDS (myelodysplastic syndrome), low grade Deep vein thrombosis (DVT) of right upper extremity Pancytopenia Back pain GLENN (obstructive sleep apnea) Hypothyroid Edema Nocturia Muscle spasm Vitamin B12 deficiency Iron deficiency anemia History of diabetes mellitus Chronic anemia Compression fracture of L2 Osteoarthritis of left knee Diabetes Bladder disease Dietary restriction Injury of head and neck History of pain when walking Walker as ambulation aid Foot drop, right Arthritis Chronic pain Non-smoker Home Medications ?Medication ?Instructions ?Recorded ?Last Taken ?Type levothyroxine 75 mcg tablet 75 mcg PO DAILY 01/10/24 0 03/26/25 History furosemide 40 mg tablet 40 mg PO DAILY PRN edema 03/26/25 History spironolactone 50 mg tablet 50 mg PO DAILY 03/05/25 History tamsulosin 0.4 mg capsule 0.4 mg PO DAILY 03/05/25 History Allergy/AdvReac Type Severity Reaction Status Date / Time hydromorphone (From Dilaudid) Allergy Severe Anaphylaxis Verified 03/22/25 15:09 gabapentin AdvReac Intermediate HALLUCINATI Verified 03/22/25 15:09 ONS fentanyl AdvReac Shortness Verified 03/22/25 15:09 of breath Family History Other Multiple sclerosis Surgical History History of esophagogastroduodenoscopy (EGD) Hx of vertebroplasty History of total left knee replacement Hx of left cataract extraction Hx of eye surgery Social History household members: spouse Smoking Status: Never smoker alcohol intake: never substance use type: does not use Review of Systems (Anesthesia) ROS Narrative System reviewed and no additional complaints, except as documented.
--- NOTE | 2025-03-27 12:06 | PCM.HP.STD ---
HPI - General General Date of Admission: 03/27/25 Date of Service: 03/27/25 Chief Complaint: Anemia HPI Narrative KHOA CONNORS, is a 64 M who presents with the Chief Complaint: chronic anemia [facility] admission 05.17.24-05.30.24 w/ increasing sob and lower extremity swelling. Hemiglobin several says prior was 5.4 and he received 2 unites of backed red blood cells. He was diuresed and put on BiPAP with no response. He was ultimately put intubated and placed in the ICU. He He has been struggling with anemia for a long time and follows with Dr. Song. Colonoscopy 05.24.24; with sessile polyp in the cecum, colonic AVMs, and distal sigmoid polyp. Pathology unknown Pt tells me he had EGD at the same time but we do not have this record Last OV 06.22.24: Pt has been doing ok since discharge. He continues to have fatigue. He tells me he has been anemic for many years with no etiology. He was referred to us by Dr. eGe for further work up. He has been on iron therapy. Pt did have a colonoscopy a year ago with Dr. Orozco that showed on AVM and a polyp. He denies seeing blood in his stool, melena, abdominal pain, heartburn or n/v. Capsule endoscopy 08.10.24: no signs of acute or chronic blood lose seen on study OV 12.26.24 Pt continues to have anemia and iron deficiency. He denies GI symptoms. He does not see blood in his stool. [facility] Medical History GAVE (gastric antral vascular ectasia) MDS (myelodysplastic syndrome) History of echocardiogram MDS (myelodysplastic syndrome), low grade Deep vein thrombosis (DVT) of right upper extremity Pancytopenia Back pain GLENN (obstructive sleep apnea) Hypothyroid Edema Nocturia Muscle spasm Vitamin B12 deficiency Iron deficiency anemia History of diabetes mellitus Chronic anemia Compression fracture of L2 Osteoarthritis of left knee Diabetes Bladder disease Dietary restriction Injury of head and neck History of pain when walking Walker as ambulation aid Foot drop, right Arthritis Chronic pain Non-smoker Home Medications ?Medication ?Instructions ?Recorded ?Last Taken ?Type levothyroxine 75 mcg tablet 75 mcg PO DAILY 01/10/24 03/26/25 History furosemide 40 mg tablet 40 mg PO DAILY PRN edema 11/02/24 03/26/25 History spironolactone 50 mg tablet 50 mg PO DAILY 03/05/25 03/26/25 History tamsulosin 0.4 mg capsule 0.4 mg PO DAILY 03/05/25 03/26/25 History Allergy/AdvReac Type Severity Reaction Status Date / Time hydromorphone (From Dilaudid) Allergy Severe Anaphylaxis Verified 03/22/25 15:09 gabapentin AdvReac Intermediate HALLUCINATI Verified 03/22/25 15:09 ONS fentanyl AdvReac Shortness Verified 03/22/25 15:09 of breath Family History Other Multiple sclerosis Surgical History History of esophagogastroduodenoscopy (EGD) Hx of vertebroplasty History of total left knee replacement Hx of left cataract extraction Hx of eye surgery Social History household members: spouse Smoking Status: Never smoker alcohol intake: never substance use type: does not use ROS Constitutional Constitutional: Denies fatigue, fever(s), poor appetite, weight gain or weight loss Gastrointestinal Gastrointestinal: Denies belching, bloating, change in bowel habits, change in stool character, chewing difficulty, coffee ground emesis, constipation, cramping, diarrhea, dyspepsia, dysphagia, early satiety, excessive flatus, fecal incontinence, heartburn, hematemesis, hematochezia, hemorrhoids, loose stools, melena, nausea, odynophagia, rectal bleeding, tenesmus, vomiting or weight changes Vital Signs Vital Signs Vital Signs: 03/27/25 11:18 03/27/25 11:18 03/27/25 11:55 Temperature 98.2 F 98.2 F Temperature Source Temporal Pulse Rate 77 77 Respiratory Rate 18 18 Respiratory Pattern Normal Blood Pressure 142/71 H 142/71 H Blood Pressure Mean 94 Blood Pressure Source Monitor Blood Pressure Position Sitting Blood Pressure Location Left Arm Pulse Ox 100 100 Oxygen Delivery Method Room Air Room Air Weight Weight: 341 lb 7.936 oz Body Mass Index (BMI) 40.3 Physical Exam Const alert, oriented x3, no apparent distress and healthy appearing General Appearance: cooperative GI normal to inspection, nondistended, normoactive bowel sounds, soft to palpation, non-tender and non-distended Percussion: normal to percussion Rectal Exam: deferred Assessment & Plan Assessment/Plan (1) Anemia: QUALIFIERS: Anemia type: bone marrow failure Bone marrow failure anemia type: other bone marrow failure Qualified Code(s): D61.89 - Other specified aplastic anemias and other bone marrow failure syndromes PLAN: Assessment & Plan Assessment/Plan (1) Anemia: QUALIFIERS: Anemia type: bone marrow failure Bone marrow failure anemia type: other bone marrow failure Qualified Code(s): D61.89 - Other specified aplastic anemias and other bone marrow failure syndromes PLAN: Assessment and Plan Assessment and Plan (1) Anemia: Status: Chronic Qualifiers: Anemia type: bone marrow failure Bone marrow failure anemia type: other bone marrow failure Qualified Code(s): D61.89 - Other specified aplastic anemias and other bone marrow failure syndromes Comment: Myelodysplastic syndrome Plan: Khoa is a 64 yo male pt here today for f/u regarding his ongoing anemia. Pt has MDS and has been seeing oncology. Bi directional endoscopy by Dr. Orozco A few years back with one polyp and AVM. He has iron infusions however his iron level continues to downtrend. Capsule endoscopy was negative for bleeding in his small bowel. He will undergo repeat colonoscopy and EGD to re assess for bleeding in his GI tract. -Colonoscopy and EGD -f/u after procedures (2) Iron deficiency anemia: Status: Chronic Qualifiers: Iron deficiency anemia type: chronic blood loss Qualified Code(s): D50.0 - Iron deficiency anemia secondary to blood loss (chronic)
--- NOTE | 2025-03-27 12:54 | PCM.POST.ANE ---
Anesthesia: Postop Eval I Current Vital Signs Temperature: 98.3 F Pulse Rate: 92 Blood Pressure: 130/73 Respiratory Rate: 16 Pulse Ox: 97 Oxygen Delivery Method: Room Air Assessment Airway patent: Yes Spontaneous unlabored respirations: Yes Mental status: Awake nausea: No Vomiting: No Anesthesia Complication: No Fluid Hydration Crystalloid volume administer (ml): 200 Total IV fluid infused: 200 Progress Note Anesthesia document: Postop Eval 1 completed: Yes
--- NOTE | 2025-03-27 12:56 | OP.EGD_ITS ---
Patient Name: Khoa Turner Procedure Date: 03/27/2025 12:13 PM Date of : 1960 Age: 64 Procedure: Upper GI endoscopy Indications: Iron deficiency anemia, Dyspepsia Providers: Sebastián Molina DO Referring MD: Damian Cross Md Medicines: Monitored Anesthesia Care Patient Profile: This is a 64 year old male. Refer to note in patient chart for documentation of history and physical. Patient has symptoms of chronic dyspepsia. Complications: No immediate complications. Procedure: Pre-Anesthesia Assessment: - Prior to the procedure, a History and Physical was performed, and patient medications and allergies were reviewed. The patient is competent. The risks and benefits of the procedure and the sedation options and risks were discussed with the patient. All questions were answered and informed consent was obtained. Patient identification and proposed procedure were verified by the physician in the pre-procedure area. Mental Status Examination: alert and oriented. Airway Examination: normal oropharyngeal airway and neck mobility. Respiratory Examination: clear to auscultation. CV Examination: normal. Prophylactic Antibiotics: The patient does not require prophylactic antibiotics. Prior Anticoagulants: The patient has taken no anticoagulant or antiplatelet agents. ASA Grade Assessment: II - A patient with mild systemic disease. After reviewing the risks and benefits, the patient was deemed in satisfactory condition to undergo the procedure. The anesthesia plan was to use monitored anesthesia care (MAC). Immediately prior to administration of medications, the patient was re-assessed for adequacy to receive sedatives. The heart rate, respiratory rate, oxygen saturations, blood pressure, adequacy of pulmonary ventilation, and response to care were monitored throughout the procedure. The physical status of the patient was re-assessed after the procedure. After obtaining informed consent, the endoscope was passed under direct vision. Throughout the procedure, the patient's blood pressure, pulse, and oxygen saturations were monitored continuously. The gastroscope was introduced through the mouth, and advanced to the third part of the duodenum. Small bowel enteroscopy was deemed necessary. The upper GI endoscopy was accomplished without difficulty. The patient tolerated the procedure well. Scope In: 12:26:49 PM Scope Out: 12:41:44 PM Total Procedure Duration Time 0 hours 14 minutes 55 seconds Findings: The examined esophagus was normal. Severe gastric antral vascular ectasia with bleeding was present in the gastric antrum, in the prepyloric region of the stomach and in the pylorus. Coagulation for hemostasis using argon plasma at 0.3 liters/minute and 30 nelson was successful. Estimated blood loss was minimal. Mild gastric antral vascular ectasia without bleeding was present in the gastric body. Coagulation for destruction of remaining portion of lesion using argon plasma at 0.3 liters/minute and 20 nelson was successful. Estimated blood loss was minimal. No gross lesions were noted in the entire examined duodenum. Impression: - Normal esophagus. - Gastric antral vascular ectasia with bleeding. Treated with argon plasma coagulation (APC). - Gastric antral vascular ectasia without bleeding. Treated with argon plasma coagulation (APC). - No gross lesions in the entire examined duodenum. - No specimens collected. Recommendation: - Discharge patient to home. - Resume previous diet. - Continue present medications. -Protonix 40 mg twice a day - Carafate 1 g 3 times a day Sebastián Molina DO 03/27/2025 12:55:56 PM This report has been signed electronically. Number of Addenda: 0 Note Initiated On: 03/27/2025 12:13 PM
--- NOTE | 2025-03-27 12:56 | OP.PROVAT_ITS ---
03/27/2025 Damian Cross Md Re : Upper GI endoscopy procedure for Khoa Turner Dear Tay This procedure was performed on Thursday, March 27, 2025. My impressions and recommendations are as follows: Impressions : - Normal esophagus. - Gastric antral vascular ectasia with bleeding. Treated with argon plasma coagulation (APC). - Gastric antral vascular ectasia without bleeding. Treated with argon plasma coagulation (APC). - No gross lesions in the entire examined duodenum. - No specimens collected. Recommendations : - Discharge patient to home. - Resume previous diet. - Continue present medications. -Protonix 40 mg twice a day - Carafate 1 g 3 times a day My findings are described in the full procedure note, which is enclosed. If I can be of further assistance, please feel free to contact me at . Sincerely, Sebastián Friend, DO 03/27/2025 12:55:56 PM
--- NOTE | 2025-03-27 15:08 | PCM.POSTANE2 ---
Anesthesia Postop Eval I Sum Postop Eval Completion status Anesthesia document: Postop Eval 1 completed: Yes Anesthesia Postop Eval I Summary Anesthesia Postop Eval I Summary: Anesthesia Postop Eval I: Assessment Summary Airway patent Yes 03/27/25 12:55 [email or web address] Spontaneous unlabored Yes 03/27/25 12:55 [email or web address] respirations Mental status Awake 03/27/25 12:55 [email or web address] nausea No 03/27/25 12:55 [email or web address] Vomiting No 03/27/25 12:55 [email or web address] Anesthesia Postop Eval I: Fluid Summary Crystalloid volume administer 200 03/27/25 12:55 [email or web address] (ml) Colloids volume administered ( ml) Blood Product volume administered (ml) Total IV fluid infused 200 03/27/25 12:55 [email or web address] Anesthesia Postop Eval I: Summary Notes Anesthesia Complication No 03/27/25 12:55 [email or web address] Anesthesia Complication Comment: Post-operative progress note Anesthesia: Postop Eval II Evaluation Mental status: Awake and Calm Pain Level: 0 nausea: No Vomiting: No Complications Anesthesia Complication: No
== END 2025-03-27 14:30 | disposition home or self-care (01) ==
LOC: EN 11:03 → AC 11:04
PROVIDERS: PCP Family Medicine; Referring Provider Family Medicine; Visit Provider Internal Medicine Gastroenterology
PROC: 0DJ08ZZ Inspection of Upper Intestinal Tract, Via Natural or Artificial Opening Endoscopic (ICD-10-PCS; CPT 43235; principal; 2025-03-27 11:55)
DX: K31.811 Angiodysplasia of stomach and duodenum with bleeding (principal); D46.9 Myelodysplastic syndrome, unspecified; D61.89 Other specified aplastic anemias and other bone marrow failure syndromes; E11.9 Type 2 diabetes mellitus without complications; E03.9 Hypothyroidism, unspecified; Z79.890 Hormone replacement therapy; Z79.899 Other long term (current) drug therapy; D50.0 Iron deficiency anemia secondary to blood loss (chronic)
CPT/HCPCS: 43255; C1889; J2405

== ENCOUNTER → 2025-04-04 | Outpatient (CLI) | payer MEDICARE, SELFPAY ==
--- NOTE | 2025-04-04 07:58 | US_ITS ---
PROCEDURE: ABDOMEN COMPLETE 04/04/2025 REASON FOR EXAM: CIRRHOSIS AND ASCITES TECHNIQUE: Procedure Code: USABDC Modality: US Procedure: ABDOMEN COMPLETE COMPARISON: None. FINDINGS: Liver: Coarsened hepatic echotexture with a nodular liver contour suggestive of cirrhosis. The liver measures 20.2 cm in vertical dimension in the midclavicular line. There is normal hepatopetal flow demonstrated in the portal venous system. Gallbladder: No stones, sludge, wall thickening or tenderness. Common bile duct: 3 mm Pancreas: Obscured by bowel gas. Kidneys: The right kidney measures 12.2 x 7.2 x 6.1 cm. The left kidney measures 12.7 x 7.7 x 5.7 cm. Renal parenchymal thicknesses and echotextures are preserved. No hydronephrosis. Spleen: There is moderate splenomegaly with the spleen measuring 17.4 cm in pole to pole length. There are benign calcified splenic granulomas. Aorta: Not visualized. IVC: Visualized inferior vena cava is unremarkable. Peritoneal Findings: No ascites identified. US/Abdomen Complete IMPRESSION: 1. Enlarged cirrhotic liver. Normal hepatopetal flow in the portal venous sys tem. 2. Moderate splenomegaly. 3. There is no ascites. Reading Location: [id number]
== END | disposition home or self-care (01) ==
PROVIDERS: PCP Family Medicine; Referring Provider Internal Medicine Gastroenterology; Visit Provider Internal Medicine Gastroenterology
DX: K74.60 Unspecified cirrhosis of liver (principal); D61.818 Other pancytopenia; D61.89 Other specified aplastic anemias and other bone marrow failure syndromes; R18.8 Other ascites; D50.0 Iron deficiency anemia secondary to blood loss (chronic)
CPT/HCPCS: 76700

== ENCOUNTER → 2025-04-18 | Outpatient (CLI) | payer MEDICARE, SELFPAY ==
--- NOTE | 2025-04-18 14:17 | CT_ITS ---
PROCEDURE: ABDOMEN/PELVIS WITH CONTRAST 04/18/2025 REASON FOR EXAM: CIRRHOSIS TECHNIQUE: Procedure Code: [id number] Modality: CT Procedure: ABDOMEN/PELVIS WITH CONTRAST Coronal and Sagittal reconstruction series were provided. CONTRAST: Isovue-300 VOLUME: 100 mL One or more dose reduction techniques were used (e.g., Automated exposure control, adjustment of the mA and/or kV according to patient size, use of iterative reconstruction technique. RADIATION DOSE SUMMARY: CTDlvol: 30.83 mGy DLP: 1395.76 mGycm COMPARISON: None FINDINGS: Lung bases: Mild dependent atelectasis the heart size is normal. There is minimal calcific vascular disease of the coronary arteries and visualized thoracic aorta. The mitral valve is heavily calcified. Liver: The liver demonstrates a lobulated margin consistent with cirrhosis. Gallbladder: Normal. Spleen: The spleen is moderately enlarged measuring 18.4 cm in pole to pole length. There are multiple benign calcified splenic granulomas. Pancreas: Normal size without evidence of mass surrounding inflammation or ductal dilation. Adrenals: Normal. Kidneys: Normal renal sizes. No hydronephrosis. There is right nephrolithiasis. Bladder: The bladder is evacuated. Reproductive Organs: The prostate gland measures 5.9 cm in transverse dimension. The seminal vesicles are unremarkable. There is no free fluid in the pelvis. There are multiple reactive inguinal lymph nodes bilaterally, the largest, on the left measuring 3.7 x 1.6 cm. There is dilatation of the right testicular vein, measuring up to 2.8 cm in diameter, extending into the right lower quadrant, where there is collateralization with a branch of the superior mesenteric vein. Bowel: No significant abnormality. Appendix: The appendix is not identified. There is no inflammatory process identified in the right lower quadrant to suggest appendicitis. Lymph nodes: There are multiple enlarged external iliac lymph nodes bilaterally, the largest on the left measuring 2.0 x 1.1 cm. There is no significant mesenteric or retroperitoneal lymphadenopathy. Vasculature: Mild diffuse atherosclerotic calcifications are noted. Peritoneum / Retroperitoneum: There is a 3.9 cm in diameter umbilical hernia, containing primarily fat. There is no ascites. Bones: There is diffuse osteopenia of the visualized thoracolumbar spine. There is a moderate compression fracture of T12 status post vertebroplasty. There is moderate compression of the superior endplate of L2. There are no retropulsed fragments. There is superimposed multilevel degenerative disc disease. CT/Abdomen/Pelvis WITH Contrast IMPRESSION: 1. Appearance of the liver is consistent with hepatic cirrhosis. 2. 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 3. Moderate splenomegaly. 4. There is no evidence of ascites. 5. There are multiple enlarged pelvic and inguinal lymph nodes, bilaterally, o f indeterminate clinical significance. 6. Other findings as noted. Reading Location: [place] [id number]
[2025-04-18 14:42] LABS: CREATININE FINGERSTICK < 1.0 mg/dL (0.70-1.30); EGFR FINGERSTICK > 60.0000 mL/min (>60)
[2025-04-18] MEDS: 0.9% Saline Lock 10 ML Syringe IV (14:50)
[2025-04-18 15:30] LABS: Hematocrit 31.8 % (40-54); Hemoglobin 9.4 g/dL (13.0-16.5); Immature Granulocytes Count 0.010 X10^3/uL (0.0-0.0); Mean Corp Hgb Conc 29.6 g/dL (32-36); Mean Corpuscular Volume 100.6 fL (80-94); NRBC Flagged by Analyzer 0 % (0-5); POSITIVE COUNT YES; POSITIVE DIFFERENTIAL YES; POSITIVE MORPHOLOGY YES; RBC Distribution Width CV 22.5 % (11.6-14.6); RBC Distribution Width SD 82.1 fl (35.1-43.9); Red Blood Count 3.16 M/mm3 (4.6-6.2); White Blood Count 2.5 K/mm3 (4.4-11.0)
[2025-04-18 15:35] LABS: Differential Indicated SCAN CRITERIA MET
[2025-04-18 15:54] LABS: AST(SGOT) 21 U/L (<=37); Alanine Aminotransfer ALT/SGPT 14 U/L (<=46); Albumin, Serum 3.3 g/dL (3.4-4.8); Alkaline Phosphatase 83 U/L (40-129); Anion Gap 4 (5-15); BUN 18 mg/dL (4-19); BUN/Creat Ratio 20.8 RATIO (10-20); Calcium,Total 8.1 mg/dL (7.6-11.0); Carbon Dioxide 28.4 mmol/L (21.0-32.0); Chloride 108 mmol/L (98-108); Ferritin 89 ng/mL (37-417); Globulin 2.1 g/dL (2.2-4.2); Glucose 156 mg/dL (70-99); Iron 37 ug/dL (65-175); Iron Binding Capacity,Unsat 195 ug/dL (228-428); Potassium 4.4 mmol/L (3.3-5.1)
[2025-04-18 16:12] LABS: Iron Binding Capacity,Total 232 ug/dL (250-450)
[2025-04-18 16:13] LABS: Differential Comment SCANNED; Platelet Count 92 K/mm3 (150-450)
[2025-04-18 16:14] LABS: Anisocytosis 2+; Polychromasia 1+
[2025-04-18 23:23] LABS: Xtra CC BBK (Onc ONLY) EXTRA TUBE
== END | disposition home or self-care (01) ==
PROVIDERS: Internal Medicine Hematology & Oncology; PCP Family Medicine; Referring Provider Internal Medicine Gastroenterology; Visit Provider Internal Medicine Gastroenterology
DX: D61.89 Other specified aplastic anemias and other bone marrow failure syndromes (principal); D46.Z Other myelodysplastic syndromes; D61.818 Other pancytopenia; D50.0 Iron deficiency anemia secondary to blood loss (chronic)
CPT/HCPCS: 74177; 80053; 82728; 83540; 83550; 85025; Q9967; A4216

== ENCOUNTER → 2025-05-15 | Outpatient (CLI) | payer MEDICARE, SELFPAY ==
--- NOTE | 2025-05-15 09:55 | US_ITS ---
PROCEDURE: ABD LIMITED W/ ELASTOGRAPHY REASON FOR EXAM: CIRRHOSIS, PORTAL HYPERTENSION, SPLENIC VARICES COMPARISON: None. TECHNIQUE: Procedure Code: [id number] Modality: US Procedure: ABD LIMITED W/ ELASTOGRAPHY Right upper quadrant abdominal ultrasound. Nicolas ElastQ Imaging shear wave elastography for non-invasive assessment of liver tissue stiffness. Nicolas EPIQ Elite. Limited examination due to patient body habitus. FINDINGS: LIVER: Size: Unremarkable Length: 16.1 cm Echotexture: Diffusely echogenic suggesting fatty infiltration Contour: Normal Lesions: None identified Elastography: Parameters unable to acquire due to the patient's body habitus. GALLBLADDER: Not visualized. COMMON BILE DUCT: Nonvisualized. . PANCREAS: Obscured by bowel gas. Visualized portions of the right kidney are unremarkable. No right upper quadrant ascites. Splenomegaly. The spleen measures 17.2 cm 7.4 cm 6.3 cm. US/ABD Limited w/ Elastography IMPRESSION: Limited examination due to the patient's body habitus. Diffuse fatty infiltration of the liver. Splenomegaly. Reference Values: SRU <1.37 m/s (5.7kPa): No to mild fibrosis 1.37 m/s - 2.2 m/s: Moderate to severe fibrosis >2.2 m/s (15kPa): Significant fibrosis / cirrhosis METAVIR Score F2 or higher: 1.34 m/s (5.7kPa) F3 or higher: 1.55 m/s (7.3kPa) F4: 1.80 m/s (10kPa) * If the IQR/Med is >30%, the variance in the measurements is a large and the a ccuracy of the measurement may be in question. Reading Location: [id number]
== END | disposition home or self-care (01) ==
LOC: US 09:51
PROVIDERS: PCP Family Medicine; Referring Provider Internal Medicine; Visit Provider Internal Medicine
DX: K76.6 Portal hypertension (principal); K74.60 Unspecified cirrhosis of liver
CPT/HCPCS: 76705; 76981

== ENCOUNTER → 2025-06-18 | Outpatient (CLI) | payer MEDICARE, SELFPAY ==
--- NOTE | 2025-06-18 17:06 | RAD_ITS ---
PROCEDURE: ABDOMEN SINGLE VIEW 06/18/2025 REASON FOR EXAM: RIGHT FLANK PAIN TECHNIQUE: Procedure Code: RADABD Modality: DX Procedure: ABDOMEN SINGLE VIEW FINDINGS: Bowel gas: Bowel gas pattern is normal. No evidence of bowel obstruction. Calcifications: No suspicious calcifications. Bones: There is a T12 vertebroplasty and there is slight wedge compression of the T12 vertebral body. Other: RAD/Abdomen Single View IMPRESSION: NO ACUTE FINDINGS Reading Location: [id number]
== END | disposition home or self-care (01) ==
LOC: MTRAD 17:05
PROVIDERS: PCP Family Medicine; Referring Provider Family Medicine; Visit Provider Family Medicine
DX: R10.A1 Flank pain, right side (principal)
CPT/HCPCS: 74018